=== PATIENT | male | born 1945 | race Caucasian/White ===

== ENCOUNTER → 2018-05-09 11:48 | Outpatient (CLI) | payer MEDICARE, BC, SELFPAY ==
[2018-05-09 12:33] VITALS: PULSE 69; PULSE 74; PULSE 86; PULSE 88; PULSE 90; PULSE 95; PULSE 98; O2SAT 100; O2SAT 93; O2SAT 96; O2SAT 97; O2SAT 98; O2SAT 99
--- NOTE | 2018-05-09 14:28 | WT_ITS ---
PSN 6 Minute Walk Test - 6 Minute Walk Test 6 Minute Walk Test: 6 Minute Walk Test PSN:6-Minute Walk Test Start: 05/09/18 12: 32 Freq: Status: Active Protocol: [id number] Document 05/09/18 12:33 NEVILLE (Rec: 05/09/18 12:36 MARYSOLA [id number]) 6 Minute Walk Test Date Performed 05/09/18 Time Performed 12:00 Height 5 ft 8 in Weight: 82.024 kg Weight in Pounds 180.[address]: Dev Bolanos Assistive device used: None Pre-test Oxygen Delivery Method Room Air Pulse Ox (%) 100 Pulse Rate (60-100 beats/min) 69 Dyspnea Cornelio Scale (0-10) 0 Exertion Cornelio Scale (6-20) 6 1st minute Oxygen Delivery Method Room Air Pulse Ox (%) 97 Pulse Rate (60-100 beats/min) 86 2nd minute Oxygen Delivery Method Room Air Pulse Ox (%) 96 Pulse Rate (60-100 beats/min) 88 3rd minute Oxygen Delivery Method Room Air Pulse Ox (%) 96 Pulse Rate (60-100 beats/min) 90 4th minute Oxygen Delivery Method Room Air Pulse Ox (%) 93 Pulse Rate (60-100 beats/min) 95 Number of Rests Taken 1 5th minute Oxygen Delivery Method Room Air Pulse Ox (%) 98 Pulse Rate (60-100 beats/min) 90 Number of Rests Taken 1 6th minute Oxygen Delivery Method Room Air Pulse Ox (%) 98 Pulse Rate (60-100 beats/min) 98 Dyspnea Cornelio Scale (0-10) 3 Exertion Cornelio Scale (6-20) 13 Number of Rests Taken 1 Post-test Oxygen Delivery Method Room Air Pulse Ox (%) 99 Pulse Rate (60-100 beats/min) 74 Full Laps Walked 9 Partial Lap, Number of Tiles Walked 0 Total Distance Walked (ft) 531 - Interpretation Interpretation: The patient was able to ambulate only 531 feet over the course of 6 minutes on room air with no assistive devices. The patient did require 2 breaks secondary to leg pain. Patient's lowest oxygen saturation was noted at 93% and no significant tachycardia was noted during testing. These findings are consistent with a musculoskeletal limitation exercise tolerance. - Recommendations Recommendations: No supplemental oxygen is indicated at this time. Sensitivity for desaturation is limited by minimal distance traveled.
== END ==
PROVIDERS: Family Provider Family Medicine; PCP Family Medicine; Visit Provider Internal Medicine Critical Care Medicine
DX: J44.9 Chronic obstructive pulmonary disease, unspecified (principal)
CPT/HCPCS: 94618

== ENCOUNTER → 2018-05-13 12:40 | Outpatient (CLI) | payer MEDICARE, BC, SELFPAY ==
--- NOTE | 2018-05-14 09:41 | PFT ---
INTRODUCTION: The patient is a 73-year-old male currently under the care of myself the presents for pulmonary function testing secondary to a diagnosis of COPD. Respiratory therapy reports good patient effort. Bronchodilators were used during testing. INTERPRETATION: Forced expiration spirometry demonstrates the presence of a severe large airways obstructive ventilatory defect. There was a partial bronchodilator response, although it was not considered clinically significant. Spirograms are of good quality and do not plateau indicating slow emptying of the lungs. Body plethysmography was performed and reveals an elevated TLC and RV, indicative of underlying hyperinflation and air-trapping. Diffusing capacity by single breath CO is moderately reduced at 55% of predicted. When compared to previous pulmonary function studies dated February 2017 there is been a 14% reduction in FEV1, along with worsening hyperinflation and air-trapping. 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 There has been worsening in the patient's PFTs since they were last completed in February 2017.
== END ==
PROVIDERS: Family Provider Family Medicine; PCP Family Medicine; Visit Provider Internal Medicine Critical Care Medicine
DX: J44.9 Chronic obstructive pulmonary disease, unspecified (principal)
CPT/HCPCS: 94060; 94726; 94729

== ENCOUNTER → 2018-08-01 15:58 | Outpatient (CLI) | payer MEDICARE, BC, SELFPAY | PROVIDERS: Family Provider Family Medicine; PCP Family Medicine; Visit Provider Otolaryngology Otolaryngology/Facial Plastic Surgery | DX: J32.9 Chronic sinusitis, unspecified (principal) | CPT/HCPCS: 87070; 87077; 87186; 87205 ==

== ENCOUNTER → 2018-09-09 09:05 | Outpatient (CLI) | payer MEDICARE, BC, SELFPAY ==
--- NOTE | 2018-09-09 09:09 | US_ITS ---
STUDY: ABDOMINAL ULTRASOUND REASON FOR EXAM: Male, 73 years old. Chronic kidney disease stage III. Diabetes. TECHNIQUE: Transabdominal ultrasound was performed with real-time and static khalil scale imaging. TECHNICAL QUALITY: Examination limited by bowel gas. COMPARISON: Ultrasound of the kidneys, September 28, 2017. FINDINGS: Liver: The liver measures 16.4 cm. There is minimally increased echogenicity of the liver suggesting mild fatty infiltration. The bile ducts are within normal limits. There is hepatic color flow. The direction of portal flow is hepatopetal. There is no demonstrated mass lesion. Gallbladder: Normal distended gallbladder. The gallbladder wall measures 4 mm. There is a negative sonographic Lackey's sign. There is no pericholecystic fluid. There is a solitary 1.7 x 1.6 cm echogenic gallstone within the gallbladder. Common Bile Duct (C.B.D.): The common bile duct measures 4 mm. Pancreas: Normal size of the head, body and tail of the pancreas. There is increased echogenicity of the pancreas. There is no demonstrated pancreatic mass or cyst. Spleen: The spleen was not visualized. Right Kidney: Normal size of the right kidney. The right kidney measures 11.3 cm. There is mildly increased renal cortical echogenicity. The right cortex measures 1.9 cm. There is a 1.5 x 1.4 x 1.3 cm simple cyst in the mid cortex. There is no right hydronephrosis. Left Kidney: Normal size of the left kidney. The left kidney measures 15.5 cm. This includes a 7.5 x 6.6 x 6.9 cm simple cyst extending off the lower pole. There is increased echogenicity of of the renal cortex. The left cortex measures 1.4 cm. There is no demonstrated renal mass. There is no left hydronephrosis. Aorta: Aorta is not clearly visualized due to bowel gas. I.V.C.: The IVC is patent. There is no ascites. US/Abdomen Complete IMPRESSION: 1. Limited study due to bowel gas. The spleen and aorta are incompletely visualized. 2. Gallstone without secondary evidence of acute cholecystitis. 3. Increased renal cortical echogenicity consistent with medical renal disease. 4. Bilateral renal cysts. These appear stable Electronically Signed: Dami Levy DO at 18:50 EDT Tel [phone], Service support ,
== END ==
PROVIDERS: Family Provider Family Medicine; PCP Family Medicine; Referring Provider Internal Medicine Nephrology; Visit Provider Internal Medicine Nephrology
DX: N18.3 Chronic kidney disease, stage 3 (moderate) (principal)
CPT/HCPCS: 76700

== ENCOUNTER → 2018-10-24 15:29 | Outpatient (CLI) | payer MEDICARE, BC, SELFPAY ==
[2018-10-24 14:18] VITALS: BMI 27.9
--- NOTE | 2018-10-24 15:40 | RAD_ITS ---
STUDY: X-RAY CHEST REASON FOR EXAM: Male, 73 years old. Increased shortness of breath and chronic respiratory failure with hypoxia. TECHNIQUE: PA and lateral views of the chest. COMPARISON: PA and lateral chest x-ray April 30, 2015; CT chest without contrast October 26, 2017. FINDINGS: There is hyperinflation of the lungs consistent with chronic obstructive lung disease (COPD). Emphysematous changes again seen in the apices, greater on the right. At least one of the nodular densities in each lung apex noted on CT is evident on the frontal view, overlapping the anterior second rib on each side. No new infiltrate. There is no demonstrated pleural abnormality. Normal size heart. Normal mediastinum and jessica. Normal visualized pulmonary arteries. There is stable atherosclerotic calcification of the aortic arch. There are stable multilevel degenerative changes of the visualized thoracic spine. There is stable right lateral wedging of the T8 vertebra. Lateral screw in the right humeral head again noted. There is no demonstrated abnormality of the visualized soft tissue structures of the upper abdomen. RAD/Chest PA and Lateral IMPRESSION: Stable x-ray examination of the chest, as described. Electronically Signed: Kade Dee MD at 19:12 EST , Service support ,
[2018-10-24 18:22] LABS: Anion Gap 9 (5-15); BUN 32 mg/dL (7-18); BUN/Creat Ratio 14.4 RATIO (10-20); Calcium,Total 8.5 mg/dL (8.5-10.1); Chloride 101 mmol/L (98-107); Creatinine, Serum 2.22 mg/dL (0.70-1.30); EST Glomerular Filtration Rate 31 mL/min (>60); Est Glom Filt Rate - Afr Amer 37 mL/min (>60); Glucose 122 mg/dL (74-106); Potassium 4.1 mmol/L (3.5-5.1); Sodium Level 138 mmol/L (136-145)
[2018-10-24 18:24] LABS: BNP,B-Type NATRIURETIC PEPTIDE 260.9 pg/mL (0-100)
--- OUTSIDE RECORDS SUMMARY | 2018-12-10 13:11 | XMS RPT_ITS ---
:1945 Author Organization OHIP Support Name Relationship Address Phone ZAHRAA HUSAIN Unavailable [address] + [place] [address] ZAHRAA HUSAIN Unavailable [address] + [place] [address] R Unavailable Unavailable Unavailable MIRTA HUSAIN Unavailable [address] + [place] [address] R Unavailable Unavailable Unavailable MIRTA HUSAIN Unavailable [address] + [place] [address] R Unavailable Unavailable Unavailable MIRTA HUSAIN Unavailable [address] + [place] [address] R Unavailable Unavailable Unavailable MIRTA HUSAIN Unavailable [address] + [place] [address] ZAHRAA HUSAIN Unavailable [address] + [place] [address] ZAHRAA HUSAIN Unavailable [address] + [place] [address] ZAHRAA HUSAIN Unavailable [address] + [place] [address] ZAHRAA HUSAIN Unavailable [address] + [place] [address] R Unavailable Unavailable Unavailable MIRTA HUSAIN Unavailable [address] + [place] [address] ZAHRAA HUSAIN Unavailable [address] + [place] [address] ZAHRAA HUSAIN Unavailable [address] + [place] [address] R Unavailable Unavailable Unavailable MIRTA HUSAIN Unavailable [address] + [place] [address] R Unavailable Unavailable Unavailable MIRTA HUSAIN Unavailable [address] + [place] [address] R Unavailable Unavailable Unavailable MIRTA HUSAIN Unavailable [address] + [place] [address] R Unavailable Unavailable Unavailable MIRTA HUSAIN Unavailable [address] + [place] [address] R Unavailable Unavailable Unavailable MIRTA HUSAIN Unavailable [address] + [place] [address] R Unavailable Unavailable Unavailable MIRTA HUSAIN Unavailable [address] + [place] [address] RODRIGUEZAHRAA HA Unavailable [address] + [place] [address] RODRIGUEDOMINIQUE HAY Unavailable [address] + [place] [address] RODRIGUEDOMINIQUE HAY Unavailable [address] + [place] [address] RODRIGUEZAHRAA HA Unavailable [address] + [place] [address] R Unavailable Unavailable Unavailable MIRTA HUSAIN Unavailable [address] + [place] [address] RODRIGUEDOMINIQUE HAY Unavailable [address] + [place] [address] RODRIGUEDOMINIQUE HAY Unavailable [address] + [place] [address] RODRIGUEZAHRAA HA Unavailable [address] + [place] [address] RODRIGUEZAHRAA HA Unavailable [address] + [place] [address] Care Team Providers Name Role Phone ARLETTE BASS MD Attending Unavailable LUCAS LOZANO DO Primary Care Unavailable DR. EDITH GARVIN DO Attending Unavailable LUCAS LOZANO DO Primary Care Unavailable ARLETTE BASS MD Attending Unavailable LUCAS LOZANO DO Primary Care Unavailable DR. EDITH GARVIN DO Attending Unavailable LUCAS LOZANO DO Primary Care Unavailable ARLETTE BASS MD Attending Unavailable MARTA DO, LUCAS D Primary Care Unavailable ARLETTE BASS MD Attending Unavailable MARTA DO, LUCAS D Primary Care Unavailable MARU MONTILLA, DR. ALLI Bryant Attending Unavailable MARTA DO, LUCAS D Primary Care Unavailable ARLETTE BASS MD Attending Unavailable MARTA DO, LUCAS D Primary Care Unavailable Mariaelena Schilling Attending Unavailable Marta, Lucas Referring Unavailable Mariaelena Schilling Attending Unavailable Schilling, Mariaelena Referring Unavailable [place], Lucas Primary Care Unavailable Edith Garvin Attending Unavailable Marta, Lucas Primary Care Unavailable Dev Bolanos, D.O. Attending Unavailable Dev Bolanos, D.O. Referring Unavailable [place], Lucas Primary Care Unavailable Dev Bolanos, D.O. Attending Unavailable Dev Bolanos, D.O. Referring Unavailable Marta, Lucas Primary Care Unavailable Dev Bolanos, D.O. Attending Unavailable Marta, Lucas Referring Unavailable Dev Bolanos, D.O. Attending Unavailable Dev Bolanos, D.O. Attending Unavailable Dev Bolanos, D.O. Referring Unavailable Ja Dumas Attending Unavailable Marta, Lucas Primary Care Unavailable Dev Bolanos, D.O. Attending Unavailable [place], Lucas Referring Unavailable Alli Reyes Attending Unavailable Alli Reyes Referring Unavailable [place], Lucas Primary Care Unavailable Edith Garvin Attending Unavailable [place], Lucas Primary Care Unavailable PROBLEMS PROBLEMS DATE TYPE CONDITION / CODE ATTENDING STATUS SOURCE 10/24/2018 Unknown J96.11 - Chronic Schilling, Active [place] respiratory [facility] failure with Hospital hypoxia / Repository J96.11(ICD-10) 10/24/2018 Unknown R06.02 - Shortness Schilling, Active [place] of breath / [facility] R06.02(ICD-10) Hospital Repository 08/15/2018 Unknown Z23 - Encounter Dev Bolanos, Active [place] for immunization / [facility] Z23(ICD-10) Hospital Repository 08/15/2018 Unknown R91.1 - Solitary Dev Bolanos, Active [place] pulmonary nodule / [facility] R91.1(ICD-10) Hospital Repository 06/20/2018 Unknown J44.9 - Chronic Dev Bolanos, Active [place] obstructive [facility] pulmonary disease, Hospital unspecified / Repository J44.9(ICD-10) PROCEDURES PROCEDURES No Procedure Records FoundRESULTS RESULTS LIPID Collected: 11/13/2018 Status: F Source: [facility] 9:06 AM [facility] REPOSITORY TYPE CODE TESTS RESULT OUT OF REFERENCE UNITS RANGE LAB CHOL(LOINC 0-200 mg/dL ) Cholesterol 171 Result Comment: Cholesterol Reference Interval: Less than 200 Desirable 200-239 Borderline high risk 240 and above High risk LAB TRIG(LOINC) 0-150 mg/dL Triglycerides 131 Result Comment: Triglyceride Reference Interval: Less than 150 Normal 150-199 Borderline high risk 200-499 High risk 500 or higher Very high risk LAB HD(LOINC) 40-60 mg/dL HDL Low Cholesterol 39 LAB LDL(LOINC) 0-130 mg/dL LDL Cholesterol 106 Performed By: #### LIPID, CMP, GFR, A1C #### [place] [address] CMP Collected: 11/13/2018 Status: F Source: [facility] 9:06 AM [facility] REPOSITORY TYPE CODE TESTS RESULT OUT OF REFERENCE UNITS RANGE LAB GLU(LOINC) 83-110 mg/dL Glucose High Level 157 LAB NA(LOINC) 136-145 mmol/L Low Sodium Level 135 LAB K(LOINC) 3.5-5.1 mmol/L Potassium Level 4.6 LAB CL(LOINC) 98-107 mmol/L Chloride 100 LAB CO2(LOINC) 23-31 mmol/L CO2 28 LAB EBAL(LOINC mEq/L ) Electrolyte Balance 7.0 LAB BUN(LOINC) 7-18 mg/dL BUN High 29 LAB CRE(LOINC) 0.70-1.30 mg/dL Creatinine High Lvl (s) 2.53 LAB BC(LOINC) 7-27 ratio BUN/Creatinine 11 Ratio LAB CA(LOINC) 8.4-10.2 mg/dL Calcium Lvl 8.4 LAB PROT(LOINC 6.4-8.2 G/dL ) Total Protein 6.6 LAB ALB(LOINC) 3.4-4.8 G/dL Low Albumin Level 3.0 LAB GLB(LOINC) G/dL Globulin 3.6 LAB AG(LOINC) 1.1-2.5 ratio Low A/G Ratio 0.8 LAB BILT(LOINC 0.2-1.0 mg/dL ) Bili Total 0.2 LAB AP(LOINC) 40-135 U/L Alk Phos 131 LAB AST(LOINC) 10-40 U/L AST/SGOT 15 LAB ALT(LOINC) 10-35 U/L ALT/SGPT 20 Performed By: #### LIPID, CMP, GFR, A1C #### [address] [address] .GFR Collected: 11/13/2018 Status: F Source: [facility] 9:06 AM [facility] REPOSITORY TYPE CODE TESTS RESULT OUT OF REFERENCE UNITS RANGE LAB GFRAA(LOINC ml/min/1.73 ) sqm GFR 30 Bulgarian Result Comment: GFR Population mean for , Non- Americans Ages 20-29 = 116 mL/min/1.73 sq.m. Ages 30-39 = 107 mL/min/1.73 sq.m. Ages 40-49 = 99 mL/min/1.73 sq.m. Ages 50-59 = 93 mL/min/1.73 sq.m. Ages 60-69 = 85 mL/min/1.73 sq.m. Ages 70+ = 75 mL/min/1.73 sq.m. Chronic Kidney Disease: Less than 60 mL/min/1.73 square meters End Stage Renal Disease: Less than 15 mL/min/1.73 square meters LAB GFRNO(LOINC) ml/min/1.73sqm GFR Non- 25 Result Comment: GFR Population mean for , Non- Americans Ages 20-29 = 116 mL/min/1.73 sq.m. Ages 30-39 = 107 mL/min/1.73 sq.m. Ages 40-49 = 99 mL/min/1.73 sq.m. Ages 50-59 = 93 mL/min/1.73 sq.m. Ages 60-69 = 85 mL/min/1.73 sq.m. Ages 70+ = 75 mL/min/1.73 sq.m. Chronic Kidney Disease: Less than 60 mL/min/1.73 square meters End Stage Renal Disease: Less than 15 mL/min/1.73 square meters Performed By: #### LIPID, CMP, GFR, A1C #### [address] [address] A1C Collected: 11/13/2018 Status: F Source: [facility] 9:06 AM [facility] REPOSITORY TYPE CODE TESTS RESULT OUT OF RANGE REFERENCE UNITS LAB A1C(LOINC) 4.5-6.2 % High Hgb A1c 7.8 Performed By: #### LIPID, CMP, GFR, A1C #### [address] [address] PULMONARY VISIT REPORT Observed: 10/25/2018 Status: F Source: [place] 2:36 PM [facility] REPOSITORY [facility] [place] [address] [place] [address] OFFICE VISIT Date of Service: 10/24/18 MR#: [id number] Acct: [id number] Name: DIVYA HUSAIN Rep #: [id number] : 1945 Provider: Mariaelena Schilling Age/Sex: 73/M Location[place] [facility] Status: Signed Assessment AND Plan Problems 1. Chronic respiratory failure with hypoxia J96.11 2. Stage 3 chronic kidney disease N18.3 Plan Deteriorated. Patient typically requires 3 L nasal cannula oxygen with exertion but is now requiring 4 L. Upon reviewing his dietary habits lately he has been treating himself to many holiday extras such as ham, pizza, hot dogs, fast food and fried foods. Blood work and chest x-ray obtained. Chest x-ray does not document congestive heart failure however BNP is elevated. Given the patient's degree of kidney failure I would like to avoid adding additional diuretics to try to get rid of the fluid retention. I have advised the patient to avoid salt, he has been provided with pulmonary hypertension diet instructions. He will follow-up in 1 week to see how his symptoms have responded to dietary restrictions and adherence to already prescribed occasions. He conveys understanding. Orders Orders: Plan Detail Follow Up 1 Week (CSM) HPI DIFFICULTY BREATHING: Chief Complaint: Shortness of breath HPI Comments Details: This patient presents the office today for an acute visit regarding worsening shortness of breath. He is ambulatory, wearing nasal cannula oxygen and he is accompanied today by his . The patient states that over the past 3 weeks he has noticed worsening shortness of breath. He typically requires 3 L of nasal cannula oxygen but lately has been requiring 4 L of nasal cannula oxygen. He shortness of breath is not only occurring with activity but it sometimes at rest. He does report an increase in lower extremity edema. He is not having any chest pain or palpitations. He does report an increase in fatigue. He states that his appetite has not been as good but he reports a weight gain. He is compliant with Symbicort 2 puffs twice daily. He reports rinsing his mouth out after each use. He denies any medication side effects such as sore throat or thrush. He does have an albuterol rescue inhaler but states that it has not been effective in relieving his shortness of breath. He also is having a wheezing, he denies any cough or sputum production. Asked the patient about his sodium intake, he states that I do not add any salt to my food. When questioned about eating any holiday type foods recently he states that he did not have much to eat on . When specifically questioned what types of food he had to eat on he did report eating turkey and ham. Then we began to evaluate various meals over the past couple weeks and he admitted to pizza, hot dog casserole, fast food and fried foods. All of these foods are not in his normal diet but his reports that with the busyness of the holidays they have not been eating at home as often. Intake Vital Signs10/24/18 Height 5 ft 8 in 10/24/18 Weight: 184 lb 10/24/18 Body Mass Index (BMI) 27.9 Intake Visit Reasons: DIFFICULTY BREATHING Accompanied by: Allergies budesonide Allergy (Severe, Verified 10/24/18 14:19) Other - can't breathe amoxicillin [From Augmentin] Allergy (Unknown, Verified 10/24/18 14:19) Unknown clavulanic acid [From Augmentin] Allergy (Unknown, Verified 10/24/18 14:19) Unknown Sulfa (Sulfonamide Antibiotics) Allergy (Unknown, Verified 10/24/18 14:19) Unknown Medications Albuterol Aerosols [Ventolin Aerosols] 01/07/16 [History Confirmed 10/24/18] Aspirin E.C. [Ecotrin] 01/07/16 [History Confirmed 10/24/18] Hydrochlorothiazide [Hctz] 01/07/16 [History Confirmed 10/24/18] Insulin Pump Controller 01/07/16 [History Confirmed 10/24/18] brimonidine 0.2 % eye drops See Rx Instructions OPHTHALMIC QDAY ml 11/15/17 [History Confirmed 10/24/18] enalapril maleate 20 mg tablet 10 mg PO DAILY tab 11/15/17 [History Confirmed 10/24/18] insulin lispro (U- 100) 100 unit/mL subcutaneous solution 100 unit SC QAM ml 11/15/17 [History Confirmed 10/24/18] lactulose 10 gram/15 mL (15 mL) oral solution See Rx Instructions PO BID 11/15/17 [History Confirmed 10/24/18] latanoprost 0.005 % eye drops 1 drp OPHTHALMIC QDAY ml 11/15/17 [History Confirmed 10/24/18] simvastatin 10 mg tablet 10 mg PO QPM 11/15/17 [History Confirmed 10/24/18] timolol 0.5 % eye drops 1 drp OPHTHALMIC BID 11/15/17 [History Confirmed 10/24/18] albuterol sulfate HFA 90 mcg/actuation aerosol inhaler 2 puff INHALATION Q4H PRN #1 device 11/20/17 [Rx Confirmed 10/24/18] cholecalciferol (vitamin D3) 50,000 unit capsule 50,000 unit PO .COMPLEX 11/20/17 [History Confirmed 10/24/18] budesonide-formoterol HFA 160 mcg-4.5 mcg/actuation aerosol inhaler 2 inh INHALATION Q12H #1 device 05/23/18 [Rx Confirmed 10/24/18] fluticasone 200 mcg-vilanterol 25 mcg/dose powder for inhalation 1 inh INHALATION DAILY #3 device 08/28/18 [Rx Confirmed 10/24/18] umeclidinium 62.5 mcg/actuation blister powder for inhalation 1 inh INHALATION QDAY #3 device 08/28/18 [Rx Confirmed 10/24/18] [facility] Medical History Pulmonary nodule (Chronic) Chronic hypoxemic respiratory failure (Chronic) COPD (chronic obstructive pulmonary disease) (Chronic) Constipation (Acute) Low back pain (Acute) Nonallopathic lesion of lumbar region (Acute) Nonallopathic lesion of rib cage (Acute) Nonallopathic lesion of sacral region (Acute) Nonallopathic lesion of thoracic region, not elsewhere classified (Acute) Otalgia (Acute) Otitis externa (Acute) Pain in lower limb (Acute) Serous otitis media (Acute) Thoracic back pain (Acute) Wax in ear (Acute) Allergic rhinitis (Chronic) Anemia (Chronic) Benign localized hyperplasia of prostate (Chronic) COPD (chronic obstructive pulmonary disease) (Chronic) Carpal tunnel syndrome (Chronic) Chronic allergic rhinitis (Chronic) Chronic otitis media (Chronic) Diabetes mellitus (Chronic) Former smoker (Chronic) GERD (gastroesophageal reflux disease) (Chronic) Neuralgia (Chronic) PVD (peripheral vascular disease) (Chronic) Peripheral edema (Chronic) Peripheral vascular insufficiency (Chronic) Pulmonary nodule (Chronic) Reactive airway disease (Chronic) Renal disorder (Chronic) Respiratory failure (Chronic) Thoracic outlet syndrome (Chronic) post inflammatory pulmonary fibrosis (Chronic) Surgical History H/O inguinal hernia repair (Resolved) H/O prostate biopsy (Resolved) History of appendectomy (Resolved) History of carpal tunnel surgery of left wrist (Resolved) S/P bilateral foot surgery (Resolved) S/P rotator cuff repair (Resolved) Family History Sister Diabetes Father Heart disease Social History Smoking Status: Former smoker quit date: 11/12/13 pack-years: 55 second hand exposure: No alcohol intake: never substance use type: does not use Review of Systems Const CONSTITUTIONAL: Negative anorexia, body ache, chills, daytime sleepiness, fever(s), night sweats, oral thrush, stops breathing during sleep, weight loss, sleeping in chair, fatigue, weight loss, weight gain, frequent colds, seasonal allergies, other, headache(s) or orthopnea EETM Ear Nose Throat Mouth: Positive hard of hearing; negative hoarseness, dry mouth in morning, change in vision, itchy eyes, eye pain, swallowing Difficulty, ear pain, nose bleed, headache(s), mouth pain, nasal congestion, nasal discharge, post nasal drip, sinus pain, sinus pressure, sore throat or other Cardio Cardiovascular: Negative chest pain, chest pain at rest, chest pain with activity, irregular heart rhythm, edema, shortness of breath when lying down, palpitations or other Resp Respiratory: Positive as per HPI; negative shortness of breath, pain with cough, wheezing, chest congestion, cough, chest tightness, pain on inspiration, inhalers, increase use of rescue inhalers, snoring, apnea or other Gastro Gastrointestional: Negative bloody stools, change in appetite, difficulty swallowing, reflux, hematemesis, melena stool, loose stool, constipation or other Genitourinary: Negative blood in urine, nocturia, pain with urination or other Musc Musculoskeletal: Negative body pain, back pain, neck pain or other Skin/Breast Skin/Breast: Negative dry skin, itching, rash, unusual bruising, breast lump or other Neuro Neurological: Negative restless legs, confusion, weakness or other Psych Psychocological: Negative abnormal sleep pattern, anxiety, thoughts of hurting self/others, hopelessness or other Lymph Lymphatic: Negative easy bleeding, easy bruising, swollen lymph nodes or other Exam Const Constitutional: Positive conversant, cooperative, in no acute respiratory distress, well developed, well nourished, good hygiene, wearing supplemental oxygen, frail appearing and dyspenic Head Head: Positive normocephalic and atraumatic; negative cyanosis of lips/distal nose Eyes Eye: Positive clear conjunctiva; negative nystagmus or scleral abnormality Ears Ear: Positive hard of hearing and external ears normal Nose Nose: Positive external nose normal and no nasal discharge; negative epistaxis Mouth Mouth: Positive oral mucosae normal, no lesions and crowded posterior oropharynx; negative post nasal drip, malodorous breath or oral thrush present Mallampati Score: III: Mallampati Score Neck Neck: Positive normal visual inspection, full ROM and trachea midline; negative lymphadenopathy, JVD or tender Chest Wall Chest: Positive symmetric chest movement and increased A/P diameter Resp lung sounds: Positive diminished, wheezes, increased work of breathing and prolonged expiratory time; negative rhonchi, rales, dullness to percussion or use of accessory muscles Cardio Cardiac: Positive regular rhythm, S1 normal, regular rate and S2 normal GI GI: Positive normal to inspection; negative distended Genitourinary: Positive deferred Musc Musculoskeletal: Positive steady gait and ROM normal; negative kyphosis or scoliosis Skin Pulmonary Skin Exam: Positive intact; negative rash Pulses Pulse: Yes pulses normal x4 extremities Extremities Extremities: Yes capillary refill normal, No clubbing, No cyanosis, Yes edema Location: lower extremity location: Bilateral pitting +2 Neuro Neurologic: Yes conversant, Yes no focal neuro deficits, Yes normal concentration, Yes understands questions, Yes cooperative, Yes normal cognition, Yes normal coordination, No tremor Lymph Lymphatic: No lymphadenopathy, No tenderness, No cervical adenopathy Psych Appearance: Positive grossly normal, eye contact and well kempt Mental Status: Positive mental status grossly normal Mood: Positive congruent mood Affect: Positive normal affect Coding Level of Care Code Off vis,est,level 4 Diagnoses Chronic respiratory failure with hypoxia J96.11 Stage 3 chronic kidney disease N18.3 Renal failure chronicity: chronic Chronic kidney disease stage: stage 3 (moderate) 10/25/18 1436 <Electronically signed by Mariaelena Schilling NP-C> Date Mariaelena DINEROC Cosigner Signature: Date (if applicable) CC: Lucas Lozano DO BASIC METABOLIC Collected: 10/24/2018 Status: F Source: [place] PROFILE ([place]) 3:50 PM [facility] REPOSITORY TYPE CODE TESTS RESULT OUT OF RANGE REFERENCE UNITS LAB L501.0100 74-106 mg/dL High GLU 122 Result Comment: Fasting Glucose result from 100 to 125 mg/dL suggests IMPAIRED HOMEOSTASIS per A.D.A. criteria. Please note revised GLUCOSE reference range effective 2017. LAB L501.1000 7-18 mg/dL High BUN 32 LAB L501.1100 0.70-1.30 mg/dL High CREAT,SERUM 2.22 Result Comment: The validity of the calculated GFR AND GFRAA in patients over 70 years has not been determined. Clinical correlation is essential. LAB L501.1110 >60 mL/min Low EST GFR 31 Result Comment: Non- GFR Calc LAB L501.1115 >60 mL/min Low EST GFR - AA 37 Result Comment: GFR Calc LAB L501.1300 10-20 RATIO Normal BUN/CRE 14.4 LAB L501.2200 8.5-10.1 mg/dL CA Normal 8.5 LAB L501.5300 136-145 mmol/L NA Normal 138 LAB L501.5600 3.5-5.1 mmol/L K Normal 4.1 LAB L501.5900 98-107 mmol/L CL Normal 101 LAB L501.6100 21.0-32.0 mmol/L Normal CO2 28.0 LAB L501.6200 5-15 Normal GAP 9 Performed By: #### L500.2500 #### [facility] [address] [facility] [place], [address] BNP,B-TYPE NATRIURETIC Collected: 10/24/2018 Status: F Source: [place] 3:50 PM [facility] REPOSITORY TYPE CODE TESTS RESULT OUT OF RANGE REFERENCE UNITS LAB L503.6620 0-100 pg/mL High B-TYPE 260.9 EDWINA PEP Performed By: #### L503.6620 #### [facility] [address] [facility] [place], [address] CHEST PA AND LATERAL Observed: 10/24/2018 Status: F Source: [place] 3:34 PM [facility] REPOSITORY [facility] Imaging Services [address] [place] [address] Chest PA and Lateral MR#: [id number] Acct: [id number] Name: DIVYA HUSAIN Rep #: [id number] : 1945 73 From: Ethan Dee MD PCP: Lucas Lozano DO Status: REG CLI Study: Chest PA and Lateral Date of Exam: 10/24/18 Exam# [id number] Ordering Dr: Mariaelena Schilling SIGNAL INTELLIGENCE/ELECTRONIC WARFARE-C STUDY: X-RAY CHEST REASON FOR EXAM: Male, 73 years old. Increased shortness of breath and chronic respiratory failure with hypoxia. TECHNIQUE: PA and lateral views of the chest. COMPARISON: PA and lateral chest x-ray April 30, 2015; CT chest without contrast October 26, 2017. FINDINGS: There is hyperinflation of the lungs consistent with chronic obstructive lung disease (COPD). Emphysematous changes again seen in the apices, greater on the right. At least one of the nodular densities in each lung apex noted on CT is evident on the frontal view, overlapping the anterior second rib on each side. No new infiltrate. There is no demonstrated pleural abnormality. Normal size heart. Normal mediastinum and jessica. Normal visualized pulmonary arteries. There is stable atherosclerotic calcification of the aortic arch. There are stable multilevel degenerative changes of the visualized thoracic spine. There is stable right lateral wedging of the T8 vertebra. Lateral screw in the right humeral head again noted. There is no demonstrated abnormality of the visualized soft tissue structures of the upper abdomen. RAD/Chest PA and Lateral IMPRESSION: Stable x-ray examination of the chest, as described. Electronically Signed: Kade Dee MD at 19:12 EST , Service support , CC: Lucas Lozano DO; Mariaelena Schilling Aeronautics Teacher: Signed ABDOMEN COMPLETE Observed: 09/09/2018 Status: F Source: [place] 9:09 AM [facility] REPOSITORY [facility] Imaging Services [address] [place] [id number] Abdomen Complete MR#: [id number] Acct: [id number] Name: DIVYA HUSAIN Rep #: [id number] : 1945 M 73 From: Dami Levy DO PCP: Lucas Lozano DO Status: REG CLI Study: Abdomen Complete Date of Exam: 09/09/18 Exam# [id number] Ordering Dr: Allison Reyes MD STUDY: ABDOMINAL ULTRASOUND REASON FOR EXAM: Male, 73 years old. Chronic kidney disease stage III. Diabetes. TECHNIQUE: Transabdominal ultrasound was performed with real-time and static khalil scale imaging. TECHNICAL QUALITY: Examination limited by bowel gas. COMPARISON: Ultrasound of the kidneys, September 28, 2017. FINDINGS: Liver: The liver measures 16.4 cm. There is minimally increased echogenicity of the liver suggesting mild fatty infiltration. The bile ducts are within normal limits. There is hepatic color flow. The direction of portal flow is hepatopetal. There is no demonstrated mass lesion. Gallbladder: Normal distended gallbladder. The gallbladder wall measures 4 mm. There is a negative sonographic Lackey's sign. There is no pericholecystic fluid. There is a solitary 1.7 x 1.6 cm echogenic gallstone within the gallbladder. Common Bile Duct (C.B.D.): The common bile duct measures 4 mm. Pancreas: Normal size of the head, body and tail of the pancreas. There is increased echogenicity of the pancreas. There is no demonstrated pancreatic mass or cyst. Spleen: The spleen was not visualized. Right Kidney: Normal size of the right kidney. The right kidney measures 11.3 cm. There is mildly increased renal cortical echogenicity. The right cortex measures 1.9 cm. There is a 1.5 x 1.4 x 1.3 cm simple cyst in the mid cortex. There is no right hydronephrosis. Left Kidney: Normal size of the left kidney. The left kidney measures 15.5 cm. This includes a 7.5 x 6.6 x 6.9 cm simple cyst extending off the lower pole. There is increased echogenicity of of the renal cortex. The left cortex measures 1.4 cm. There is no demonstrated renal mass. There is no left hydronephrosis. Aorta: Aorta is not clearly visualized due to bowel gas. I.V.C.: The IVC is patent. There is no ascites. US/Abdomen Complete IMPRESSION: 1. Limited study due to bowel gas. The spleen and aorta are incompletely visualized. 2. Gallstone without secondary evidence of acute cholecystitis. 3. Increased renal cortical echogenicity consistent with medical renal disease. 4. Bilateral renal cysts. These appear stable Electronically Signed: Dami Levy DO at 18:50 EDT Tel [phone], Service support , CC: uLcas Lozano DO; Alli Reyes M.D. Aeronautics Teacher: Signed CRUR Collected: 09/03/2018 Status: F Source: [facility] 9:40 AM [facility] REPOSITORY TYPE CODE TESTS RESULT OUT OF REFERENCE UNITS RANGE LAB CRU(LOINC) 39.0-259.0 mg/dL U Creatinine 53.6 Performed By: #### MILO, PRUR #### [address] [address] PRUR Collected: 09/03/2018 Status: F Source: [facility] 9:40 AM [facility] REPOSITORY TYPE CODE TESTS RESULT OUT OF REFERENCE UNITS RANGE LAB PRU(LOINC) 0-11 mg/dL U High Protein 152 Performed By: #### MILO, PRUR #### [address] [address] HGMP Collected: 09/03/2018 Status: F Source: [facility] 9:40 AM [facility] REPOSITORY TYPE CODE TESTS RESULT OUT OF REFERENCE UNITS RANGE LAB WBC(LOINC) 4.60-10.80 10 3/mcL WBC 6.40 LAB RBCCT(LOINC 4.04-6.13 10 6/mcL ) Low RBC 3.44 LAB HGB(LOINC) 14.0-18.0 G/dL Low Hgb 9.1 LAB HCT(LOINC) 42.0-52.0 % Low Hct 27.6 LAB MCV(LOINC) 80.0-94.0 fL MCV 80.4 LAB MCH(LOINC) 27.0-31.2 pg Low MCH 26.4 LAB MCHC(LOINC) 31.8-35.4 G/dL MCHC 32.8 LAB RDW(LOINC) 11.5-14.5 % RDW 14.2 LAB PLT(LOINC) 130-400 10 3/mcL Platelet 261 LAB MPV(LOINC) 7.4-10.4 fL MPV 8.4 Performed By: #### HGMP #### [facility] [address] [place], [place] [address] #### RFP, GFR, PTH, VIDH #### [address] [address] RFP Collected: 09/03/2018 Status: F Source: [facility] 9:40 AM [facility] REPOSITORY TYPE CODE TESTS RESULT OUT OF REFERENCE UNITS RANGE LAB GLU(LOINC) 83-110 mg/dL Glucose High Level 219 LAB NA(LOINC) 136-145 mmol/L Low Sodium Level 134 LAB K(LOINC) 3.5-5.1 mmol/L Potassium Level 4.3 LAB CL(LOINC) 98-107 mmol/L Low Chloride 96 LAB CO2(LOINC) 23-31 mmol/L CO2 High 32 LAB EBAL(LOINC mEq/L ) Electrolyte Balance 6.0 LAB BUN(LOINC) 7-18 mg/dL BUN High 23 LAB CRE(LOINC) 0.70-1.30 mg/dL Creatinine High Lvl (s) 2.19 LAB BC(LOINC) 7-27 ratio BUN/Creatinine 11 Ratio LAB CA(LOINC) 8.4-10.2 mg/dL Calcium Lvl 8.5 LAB PHOS(LOINC 2.3-4.1 mg/dL ) Phosphorus 3.3 LAB ALB(LOINC) 3.4-4.8 G/dL Low Albumin Level 3.2 Performed By: #### HGMP #### [address] [address] #### RFP, GFR, PTH, VIDH #### [address] [address] .GFR Collected: 09/03/2018 Status: F Source: [facility] 9:40 AM [facility] REPOSITORY TYPE CODE TESTS RESULT OUT OF REFERENCE UNITS RANGE LAB GFRAA(LOINC ml/min/1.73 ) sqm GFR 36 Bulgarian Result Comment: GFR Population mean for , Non- Americans Ages 20-29 = 116 mL/min/1.73 sq.m. Ages 30-39 = 107 mL/min/1.73 sq.m. Ages 40-49 = 99 mL/min/1.73 sq.m. Ages 50-59 = 93 mL/min/1.73 sq.m. Ages 60-69 = 85 mL/min/1.73 sq.m. Ages 70+ = 75 mL/min/1.73 sq.m. Chronic Kidney Disease: Less than 60 mL/min/1.73 square meters End Stage Renal Disease: Less than 15 mL/min/1.73 square meters LAB GFRNO(LOINC) ml/min/1.73sqm GFR Non- 29 Result Comment: GFR Population mean for , Non- Americans Ages 20-29 = 116 mL/min/1.73 sq.m. Ages 30-39 = 107 mL/min/1.73 sq.m. Ages 40-49 = 99 mL/min/1.73 sq.m. Ages 50-59 = 93 mL/min/1.73 sq.m. Ages 60-69 = 85 mL/min/1.73 sq.m. Ages 70+ = 75 mL/min/1.73 sq.m. Chronic Kidney Disease: Less than 60 mL/min/1.73 square meters End Stage Renal Disease: Less than 15 mL/min/1.73 square meters Performed By: #### HGMP #### [address] [address] #### RFP, GFR, PTH, VIDH #### [address] [address] PTH Collected: 09/03/2018 Status: F Source: [facility] 9:40 AM [facility] REPOSITORY TYPE CODE TESTS RESULT OUT OF REFERENCE UNITS RANGE LAB PTH(LOINC) 18.5-88.0 pg/mL High PTH, Intact 129.5 Performed By: #### HGMP #### [address] [address] #### RFP, GFR, PTH, VIDH #### [address] [address] VIDH Collected: 09/03/2018 Status: F Source: [facility] 9:40 AM [facility] REPOSITORY TYPE CODE TESTS RESULT OUT OF RANGE REFERENCE UNITS LAB VIDH(LOINC) ng/mL Vit. D 32 25-Hydroxy Result Comment: Interpretive Values Based on Total 25(OH)D: Severe Deficiency <20 ng/mL Mild to Moderate Deficiency 20-30 ng/mL Optimum Levels 30-100 ng/mL Toxicity Possible >100 ng/mL Performed By: #### HGMP #### [address] [address] #### RFP, GFR, PTH, VIDH #### [address] [address] BMP Collected: 08/21/2018 Status: F Source: [facility] 8:48 AM [facility] REPOSITORY TYPE CODE TESTS RESULT OUT OF REFERENCE UNITS RANGE LAB GLU(LOINC) 83-110 mg/dL Glucose High Level 203 LAB NA(LOINC) 136-145 mmol/L Low Sodium Level 133 LAB K(LOINC) 3.5-5.1 mmol/L Potassium Level 4.4 LAB CL(LOINC) 98-107 mmol/L Chloride 98 LAB CO2(LOINC) 23-31 mmol/L CO2 30 LAB EBAL(LOINC mEq/L ) Electrolyte Balance 5.0 LAB BUN(LOINC) 7-18 mg/dL BUN High 21 LAB CRE(LOINC) 0.70-1.30 mg/dL Creatinine High Lvl (s) 2.06 LAB BC(LOINC) 7-27 ratio BUN/Creatinine 10 Ratio LAB CA(LOINC) 8.4-10.2 mg/dL Low Calcium Lvl 7.7 Performed By: #### ANA M, GFR, NEMESIO #### [place] [address] .GFR Collected: 08/21/2018 Status: F Source: [facility] 8:48 AM [facility] REPOSITORY TYPE CODE TESTS RESULT OUT OF REFERENCE UNITS RANGE LAB GFRAA(LOINC ml/min/1.73 ) sqm GFR 38 Bulgarian Result Comment: GFR Population mean for , Non- Americans Ages 20-29 = 116 mL/min/1.73 sq.m. Ages 30-39 = 107 mL/min/1.73 sq.m. Ages 40-49 = 99 mL/min/1.73 sq.m. Ages 50-59 = 93 mL/min/1.73 sq.m. Ages 60-69 = 85 mL/min/1.73 sq.m. Ages 70+ = 75 mL/min/1.73 sq.m. Chronic Kidney Disease: Less than 60 mL/min/1.73 square meters End Stage Renal Disease: Less than 15 mL/min/1.73 square meters LAB GFRNO(LOINC) ml/min/1.73sqm GFR Non- 32 Result Comment: GFR Population mean for , Non- Americans Ages 20-29 = 116 mL/min/1.73 sq.m. Ages 30-39 = 107 mL/min/1.73 sq.m. Ages 40-49 = 99 mL/min/1.73 sq.m. Ages 50-59 = 93 mL/min/1.73 sq.m. Ages 60-69 = 85 mL/min/1.73 sq.m. Ages 70+ = 75 mL/min/1.73 sq.m. Chronic Kidney Disease: Less than 60 mL/min/1.73 square meters End Stage Renal Disease: Less than 15 mL/min/1.73 square meters Performed By: #### BMP, GFR, CORTA #### [facility] [address] [place] [address] CORTA Collected: 08/21/2018 Status: F Source: [facility] 8:48 AM [facility] REPOSITORY TYPE CODE TESTS RESULT OUT OF RANGE REFERENCE UNITS LAB CORTA(LOINC 6.5-26.0 mcg/dL ) Cortisol, 17.5 AM Performed By: #### ANA M, GFR, CORTA #### [facility] [address] [place] [address] PULMONARY VISIT REPORT Observed: 08/16/2018 Status: F Source: [place] 7:53 AM [facility] REPOSITORY Pulmonary Medicine [address] [place] [address] OFFICE VISIT Date of Service: 08/15/18 MR#: [id number] Acct: [id number] Name: DIVYA HUSAIN Rep #: [id number] : 1945 Provider: Dev Bolanos D.O. Age/Sex: 73/M Location: [facility] Status: Signed Assessment AND Plan 1. COPD (chronic obstructive pulmonary disease) J44.9 Plan The patient has evidence of severe COPD based upon his last pulmonary function testing. He is currently on a stable triple therapy inhaler regimen and has already completed pulmonary rehabilitation. The patient has been having recent difficulty in qualifying for financial assistance for his Symbicort. I will provide him with additional samples today, along with samples of Breo to be trialed in its place, the patient will qualify for the patient assistance program for the latter medication. The patient is also in need of obtaining his annual influenza vaccination. 2. Chronic hypoxemic respiratory failure J96.11 Plan Continue supplemental oxygen as prescribed. 3. Lung nodule R91.1 Plan Plan to repeat a noncontrasted chest CT prior to his follow- up office visit with me. Orders Orders: Plan Detail Other Orders Orders: Other Medications Discontinued: Fluad 2017-19 63yr up(PF)45 mcg(15 mcgx3)/0.5 mL intramuscula0.5 mL IM ONCE #1 0RF NS Z23 r syringe (flu vac 2018 [id number](PF)) Discontinued Re ason: Office Medication has been Documented as given Follow Up 6 Months (DMB) HPI HPI Comments Details: The patient is a 73-year-old male who presents to the clinic today for a routine scheduled follow-up office visit due to underlying COPD and chronic hypoxic respiratory failure. The patient's is in attendance at today's office visit. If you recall, the patient has a history of chronic hypoxic respiratory failure for which he is on 3 L/min of pulse dose supplemental oxygen when out in public continuous-flow at home. He is a former smoker of approximately 50 pack years, but quit in 2013. He was previously followed by a solid tire finisher in [facility], Dr. Rubio. The patient has severe baseline dyspnea on exertion. He had a noncontrasted chest CT completed in June 2015 which showed the presence of pulmonary nodules. The patient had a repeat chest CT completed August 2016 which showed multiple suspicious noncalcified upper lobe nodules with the largest measuring 1.3 x 0.9 cm. A follow-up PET scan in October 2016 showed no definitive quantitative evidence of viable neoplasm. Alpha-1 antitrypsin testing was also unremarkable. The patient's last surface echocardiogram completed in May 2016 showed evidence of a normal LV size and function with an ejection fraction of 60%. The patient has previously completed pulmonary rehab. He continues to go to the gym 3 times per week. A repeat noncontrasted chest CT was completed in mid October 2017 revealed hyperinflated lung walker with emphysema and apical scarring. The previously noted bilateral lung nodules appeared stable in appearance and size. The patient is on a stable triple therapy inhaler regimen including Symbicort, Incruse and as needed albuterol. A repeat 6 minute walk test completed at the end of April 2018 revealed no significant oxygen desaturation. 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 Today, the patient does report that his breathing quality has been a bit suboptimal over the summer due to the heat and humidity. He currently utilizes his rescue inhaler on average 1-2 times per day. The patient is already completed pulmonary rehabilitation previously. He does report that he just recently completed an antibiotic course, prescribed by ENT for presumed sinusitis. He continues to exercise 3 times per week. He is currently on his last prescription of Symbicort and has had difficulty with renewing his financial assistance program. He is requesting samples of the aforementioned medication today. He does report the presence of continued, chronic exertional dyspnea along with a intermittent cough and chest tightness. His weight has been relatively stable. He denies fevers, chills or night sweats. 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 [Ecotrin] 01/07/16 [History Confirmed 08/15/18] Hydrochlorothiazide [Hctz] 01/07/16 [History Confirmed 08/15/18] Insulin Pump Controller 01/07/16 [History Confirmed 08/15/18] brimonidine 0.2 % eye drops See Rx Instructions OPHTHALMIC QDAY ml 11/15/17 [History Confirmed 08/15/18] enalapril maleate 20 mg tablet 10 mg PO DAILY tab 11/15/17 [History Confirmed 08/15/18] insulin lispro (U- 100) 100 unit/mL subcutaneous solution 100 unit SC QAM ml 11/15/17 [History Confirmed 08/15/18] lactulose 10 gram/15 mL (15 mL) oral solution See Rx Instructions PO BID 11/15/17 [History Confirmed 08/15/18] latanoprost 0.005 % eye drops 1 drp OPHTHALMIC QDAY ml 11/15/17 [History Confirmed 08/15/18] simvastatin 10 mg tablet 10 mg PO QPM 11/15/17 [History Confirmed 08/15/18] timolol 0.5 % eye drops 1 drp OPHTHALMIC BID 11/15/17 [History Confirmed 08/15/18] albuterol sulfate HFA 90 mcg/actuation aerosol inhaler 2 puff INHALATION Q4H PRN #1 device 11/20/17 [Rx Confirmed 08/15/18] cholecalciferol (vitamin D3) 50,000 unit capsule 50,000 unit PO .COMPLEX 11/20/17 [History Confirmed 08/15/18] umeclidinium 62.5 mcg/actuation blister powder for inhalation 1 inh INHALATION QDAY #1 device 11/20/17 [Rx Confirmed 08/15/18] budesonide-formoterol HFA 160 mcg-4.5 mcg/actuation aerosol inhaler 2 inh INHALATION Q12H #1 device 05/23/18 [Rx Confirmed 08/15/18] PFSH Medical History Pulmonary nodule (Chronic) Chronic hypoxemic respiratory failure (Chronic) COPD (chronic obstructive pulmonary disease) (Chronic) Constipation (Acute) Low back pain (Acute) Nonallopathic lesion of lumbar region (Acute) Nonallopathic lesion of rib cage (Acute) Nonallopathic lesion of sacral region (Acute) Nonallopathic lesion of thoracic region, not elsewhere classified (Acute) Otalgia (Acute) Otitis externa (Acute) Pain in lower limb (Acute) Serous otitis media (Acute) Thoracic back pain (Acute) Wax in ear (Acute) Allergic rhinitis (Chronic) Anemia (Chronic) Benign localized hyperplasia of prostate (Chronic) COPD (chronic obstructive pulmonary disease) (Chronic) Carpal tunnel syndrome (Chronic) Chronic allergic rhinitis (Chronic) Chronic otitis media (Chronic) Diabetes mellitus (Chronic) Former smoker (Chronic) GERD (gastroesophageal reflux disease) (Chronic) Neuralgia (Chronic) PVD (peripheral vascular disease) (Chronic) Peripheral edema (Chronic) Peripheral vascular insufficiency (Chronic) Pulmonary nodule (Chronic) Reactive airway disease (Chronic) Renal disorder (Chronic) Respiratory failure (Chronic) Thoracic outlet syndrome (Chronic) post inflammatory pulmonary fibrosis (Chronic) Surgical History H/O inguinal hernia repair (Resolved) H/O prostate biopsy (Resolved) History of appendectomy (Resolved) History of carpal tunnel surgery of left wrist (Resolved) S/P bilateral foot surgery (Resolved) S/P rotator cuff repair (Resolved) Family History Sister Diabetes Father Heart disease Social History Smoking Status: Former smoker quit date: 11/12/13 pack-years: 55 second hand exposure: No alcohol intake: never substance use type: does not use Review of Systems Const CONSTITUTIONAL: Positive fatigue; negative anorexia, body ache, chills, daytime sleepiness, fever(s), night sweats, oral thrush, stops breathing during sleep, weight loss, sleeping in chair, weight loss, weight gain, frequent colds, seasonal allergies, other, headache(s) or orthopnea EETM Ear Nose Throat Mouth: Positive hearing normal and nasal discharge; negative hard of hearing, hoarseness, dry mouth in morning, change in vision, itchy eyes, eye pain, swallowing Difficulty, ear pain, nose bleed, headache(s), mouth pain, nasal congestion, post nasal drip, sinus pain, sinus pressure, sore throat or other Cardio Cardiovascular: Positive edema Location: lower extremity; negative chest pain, chest pain at rest, chest pain with activity, irregular heart rhythm, shortness of breath when lying down, palpitations, murmur or other Resp Respiratory: Positive as per HPI, shortness of breath shortness of breath: Positive with activity and inhalers; negative pain with cough, wheezing, chest congestion, cough, chest tightness, pain on inspiration, increase use of rescue inhalers, snoring, apnea or other Gastro Gastrointestional: Negative bloody stools, change in appetite, difficulty swallowing, reflux, hematemesis, melena stool, loose stool, constipation or other Genitourinary: Negative blood in urine, nocturia, pain with urination or other Musc Musculoskeletal: Negative body pain, back pain, neck pain or other Skin/Breast Skin/Breast: Negative dry skin, itching, rash, unusual bruising, breast lump or other Neuro Neurological: Negative restless legs, confusion, weakness or other Psych Psychocological: Negative abnormal sleep pattern, anxiety, thoughts of hurting self/others, hopelessness or other Lymph Lymphatic: Negative easy bleeding, easy bruising, swollen lymph nodes or other Exam Const Constitutional: Positive conversant, cooperative, in no acute respiratory distress, well developed, well nourished, good hygiene and wearing supplemental oxygen Head Head: Positive normocephalic and atraumatic; negative cyanosis of lips/distal nose Eyes Eye: Positive clear conjunctiva; negative nystagmus or scleral abnormality Ears Ear: Positive hearing normal; negative hard of hearing Nose Nose: Positive external nose normal; negative epistaxis Mouth Mouth: Positive oral mucosae normal and posterior oropharynx is adequate; negative post nasal drip or oral thrush present Mallampati Score: II: Mallampati Score Neck Neck: Positive normal visual inspection and trachea midline; negative lymphadenopathy Chest Wall Chest: Positive symmetric chest movement and increased A/P diameter Resp lung sounds: Positive diminished diminished: Positive global and prolonged expiratory time; negative wheezes, rhonchi or rales Cardio Cardiac: Positive regular rate, regular rhythm, S1 normal and S2 normal; negative murmur GI GI: Positive normal bowel sounds Soft without distention Genitourinary: Positive deferred Musc Musculoskeletal: Positive steady gait Skin Pulmonary Skin Exam: Positive intact; negative rash or lesion Pulses Diminished peripheral pulses Extremities Extremities: No clubbing, No cyanosis, No edema Neuro Neurologic: Yes conversant, Yes no focal neuro deficits, Yes cooperative Lymph Lymphatic: No lymphadenopathy Psych Appearance: Positive grossly normal Mental Status: Positive mental status grossly normal Mood: Positive congruent mood Affect: Positive normal affect Immunizations Fluad 2018- 65yr up(PF)45 mcg(15 mcgx3)/0.5 mL intramuscular syringe Performing Provider: Dev Bolanos DO Administered by: Anahi Feliz on 08/15/18 14:33 Dose Route Admin Location Lot Number Expiration Date [facility] Bleach Liquor Maker 0.5 mL IM Right Deltoid [id number] 03/11/19 69527-575-66 SEQIRUS VIS Given Date VIS Publication Date 08/15/18 06/18/15 Eligibility Eligibility Date Coding Level of Care Code Off vis,est,level 3 Diagnoses COPD (chronic obstructive pulmonary disease) J44.9 Chronic hypoxemic respiratory failure J96.11 Lung nodule R91.1 08/16/18 0753 <Electronically signed by Dev Bolanos DO> Date Dev Bolanos DO Ana Paulaigndiego Signature: Date (if applicable) CC: Lucas Lozano DO CMP Collected: 08/13/2018 Status: F Source: [facility] 8:58 AM [facility] REPOSITORY TYPE CODE TESTS RESULT OUT OF REFERENCE UNITS RANGE LAB GLU(LOINC) 83-110 mg/dL Glucose High Level 164 LAB NA(LOINC) 136-145 mmol/L Low Sodium Level 132 LAB K(LOINC) 3.5-5.1 mmol/L Potassium Level 4.4 LAB CL(LOINC) 98-107 mmol/L Low Chloride 95 LAB CO2(LOINC) 23-31 mmol/L CO2 30 LAB EBAL(LOINC mEq/L ) Electrolyte Balance 7.0 LAB BUN(LOINC) 7-18 mg/dL BUN High 21 LAB CRE(LOINC) 0.70-1.30 mg/dL Creatinine High Lvl (s) 2.05 LAB BC(LOINC) 7-27 ratio BUN/Creatinine 10 Ratio LAB CA(LOINC) 8.4-10.2 mg/dL Calcium Lvl 8.4 LAB PROT(LOINC 6.4-8.2 G/dL ) Low Total Protein 6.1 LAB ALB(LOINC) 3.4-4.8 G/dL Low Albumin Level 2.9 LAB GLB(LOINC) G/dL Globulin 3.2 LAB AG(LOINC) 1.1-2.5 ratio Low A/G Ratio 0.9 LAB BILT(LOINC 0.2-1.0 mg/dL ) Bili Total 0.3 LAB AP(LOINC) 40-135 U/L Alk Phos 128 LAB AST(LOINC) 10-40 U/L AST/SGOT 15 LAB ALT(LOINC) 10-35 U/L ALT/SGPT 23 Performed By: #### CMP, LIPID, GFR, TSH, A1C #### [place] [address] LIPID Collected: 08/13/2018 Status: F Source: [facility] 8:58 AM [facility] REPOSITORY TYPE CODE TESTS RESULT OUT OF REFERENCE UNITS RANGE LAB CHOL(LOINC 0-200 mg/dL ) Cholesterol High 211 Result Comment: Cholesterol Reference Interval: Less than 200 Desirable 200-239 Borderline high risk 240 and above High risk LAB TRIG(LOINC) 0-150 mg/dL Triglycerides 124 Result Comment: Triglyceride Reference Interval: Less than 150 Normal 150-199 Borderline high risk 200-499 High risk 500 or higher Very high risk LAB HD(LOINC) 40-60 mg/dL HDL Cholesterol 42 LAB LDL(LOINC) 0-130 mg/dL LDL High Cholesterol 144 Performed By: #### CMP, LIPID, GFR, TSH, A1C #### [facility] [address] [place] [address] .GFR Collected: 08/13/2018 Status: F Source: [facility] 8:58 AM [facility] REPOSITORY TYPE CODE TESTS RESULT OUT OF REFERENCE UNITS RANGE LAB GFRAA(LOINC ml/min/1.73 ) sqm GFR 39 Bulgarian Result Comment: GFR Population mean for , Non- Americans Ages 20-29 = 116 mL/min/1.73 sq.m. Ages 30-39 = 107 mL/min/1.73 sq.m. Ages 40-49 = 99 mL/min/1.73 sq.m. Ages 50-59 = 93 mL/min/1.73 sq.m. Ages 60-69 = 85 mL/min/1.73 sq.m. Ages 70+ = 75 mL/min/1.73 sq.m. Chronic Kidney Disease: Less than 60 mL/min/1.73 square meters End Stage Renal Disease: Less than 15 mL/min/1.73 square meters LAB GFRNO(LOINC) ml/min/1.73sqm GFR Non- 32 Result Comment: GFR Population mean for , Non- Americans Ages 20-29 = 116 mL/min/1.73 sq.m. Ages 30-39 = 107 mL/min/1.73 sq.m. Ages 40-49 = 99 mL/min/1.73 sq.m. Ages 50-59 = 93 mL/min/1.73 sq.m. Ages 60-69 = 85 mL/min/1.73 sq.m. Ages 70+ = 75 mL/min/1.73 sq.m. Chronic Kidney Disease: Less than 60 mL/min/1.73 square meters End Stage Renal Disease: Less than 15 mL/min/1.73 square meters Performed By: #### CMP, LIPID, GFR, TSH, A1C #### [facility] [address] [place] [address] TSH Collected: 08/13/2018 Status: F Source: [facility] 8:58 AM [facility] REPOSITORY TYPE CODE TESTS RESULT OUT OF RANGE REFERENCE UNITS LAB TSH(LOINC) 0.36-3.74 mcIU/mL TSH 1.03 Performed By: #### CMP, LIPID, GFR, TSH, A1C #### [facility] [address] [place] [address] A1C Collected: 08/13/2018 Status: F Source: [facility] 8:58 AM [facility] REPOSITORY TYPE CODE TESTS RESULT OUT OF RANGE REFERENCE UNITS LAB A1C(LOINC) 4.5-6.2 % High Hgb A1c 8.6 Performed By: #### CMP, LIPID, GFR, TSH, A1C #### [place] [address] Observed: 08/01/2018 Status: F Source: [place] CULTURE, NOSE 10:40 AM [facility] REPOSITORY Gram Stain Gram Stain 1+ White Blood Cells Rare Gram positive cocci Nasoph. Cult ORGANISM 1: Streptococcus pneumoniae Amount Growth 2+ ORGANISM 2: Staphylococcus aureus Amount Growth Rare Streptococcus pneumoniae: REACTION Cefotaxime (meningitis) $ <=0.12 S Cefotaxime (Other dx) $ <=0.12 S (meningitis)Ceftriaxone $ <=0.12 S Ceftriaxone (other dx) $ <=0.12 S Clindamycin $$ <=0.25 S Erythromycin $ <=0.12 S Levofloxacin $ 1 S Moxifloxicin *NF 0.12 S Tetracycline NF <=0.25 S Trimethoprim/Sulfametho $ <=10 S Vancomycin $ 0.5 S (NF) indicates non-formulary drug at [facility]. Approval by Infectious Disease Specialist required before non-formulary drugs may be ordered and/or dispensed. * CLSI guidelines does not recommend testing of cephalosporins. This interpretation is deduced from Beta-lactam/penicillin results. Staphylococcus aureus: REACTION Benzylpenicillin NF >=0.5 R Cefoxitin *NF - Clindamycin $$ <=0.25 R Inducable Clindamycin Resistan + Erythromycin $ >=8 R Gentamicin $ <=0.5 S Levofloxacin $ >=8 R Linezolid $$$$ 2 S Moxifloxicin *NF 2 S Oxacillin NF 0.5 S Tigecycline $$$$ <=0.12 S Rifampin $$ <=0.5 S Tetracycline NF <=1 S Trimethoprim/Sulfametho $ <=10 S Vancomycin $ 1 S (NF) indicates non-formulary drug at [facility]. Approval by Infectious Disease Specialist required before non-formulary drugs may be ordered and/or dispensed. * CLSI guidelines does not recommend testing of cephalosporins. This interpretation is deduced from Beta-lactam/penicillin results. Performed By: #### [id number] #### [facility] [address] [place], [address] PULMONARY VISIT REPORT Observed: 05/21/2018 Status: F Source: [place] 1:18 PM [facility] REPOSITORY [facility] [place] [address] [place], [place] [address] OFFICE VISIT Date of Service: 05/21/18 MR#: [id number] Acct: [id number] Name: DIVYA HUSAIN Rep #: [id number] : 1945 Provider: Dev Bolanos D.O. Age/Sex: 73/M Location: [facility] [email or web address] Status: Signed Assessment AND Plan 1. COPD (chronic obstructive pulmonary disease) J44.9 Plan The patient has evidence of advanced stage COPD, will remains on a stable triple therapy inhaler regimen with Symbicort and Incruse. This will be continued without change. The patient has already completed pulmonary rehabilitation and remains active, working out 3 times per week. The patient has been advised to call this office with any worsening in his breathing quality and/or increased reliance on his short acting beta agonist. 2. Chronic hypoxemic respiratory failure J96.11 Plan Continue supplemental oxygen as prescribed. 3. Lung nodule R91.1 Plan Recommend yearly low-dose CT scan, given age and smoking history. The patient will be due for repeat chest imaging in October 2018. Plan Detail Follow Up 3 Months (DMB) HPI HPI Comments Details: The patient is a 73-year-old male who presents to the clinic today for a routine scheduled follow-up office visit due to underlying COPD and chronic hypoxic respiratory failure. The patient's is in attendance at today's office visit. If you recall, the patient has a history of chronic hypoxic respiratory failure for which he is on 2 L/min of pulse dose supplemental oxygen when out in public continuous-flow at home. He is a former smoker of approximately 50 pack years, but quit in 2013. He was previously followed by a solid tire finisher in [facility], Dr. Rubio. The patient has severe baseline dyspnea on exertion. He had a noncontrasted chest CT completed in June 2015 which showed the presence of pulmonary nodules. The patient had a repeat chest CT completed August 2016 which showed multiple suspicious noncalcified upper lobe nodules with the largest measuring 1.3 x 0.9 cm. A follow-up PET scan in October 2016 showed no definitive quantitative evidence of viable neoplasm. Alpha-1 antitrypsin testing was also unremarkable. The patient's last surface echocardiogram completed in May 2016 showed evidence of a normal LV size and function with an ejection fraction of 60%. The patient has previously completed pulmonary rehab. He continues to go to the gym 3 times per week. A repeat noncontrasted chest CT was completed in mid October 2017 revealed hyperinflated lung walker with emphysema and apical scarring. The previously noted bilateral lung nodules appeared stable in appearance and size. The patient is on a stable triple therapy inhaler regimen including Symbicort, Incruse and as needed albuterol. A repeat 6 minute walk test completed at the end of April 2018 revealed no significant oxygen desaturation. 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 Today, the patient reports overall stability in his breathing quality. He continues to experience exertional dyspnea, which is unchanged from previous. The patient remains compliant with his triple therapy inhaler regimen. He has not been evaluated in the emergency department or urgent care for breathing related issues since his last office visit. He continues to go to the gym to workout 3 times per week. He reports that he never has to use his rescue inhaler. His weight has been stable. He denies fevers, chills or night sweats. He denies chest pain, dizziness or lightheadedness. Intake Vital Signs05/21/18 Height 5 ft 8 in 05/21/18 Weight: 183 lb 05/21/18 Body Mass Index (BMI) 27.8 Intake Visit Reasons: 6 M FU Accompanied by: Allergies budesonide Allergy (Severe, Verified 05/21/18 12:36) Other - can't breathe amoxicillin [From Augmentin] Allergy (Unknown, Verified 05/21/18 12:36) Unknown clavulanic acid [From Augmentin] Allergy (Unknown, Verified 05/21/18 12:36) Unknown Sulfa (Sulfonamide Antibiotics) Allergy (Unknown, Verified 05/21/18 12:36) Unknown Medications Albuterol Aerosols [Ventolin Aerosols] 01/07/16 [History Confirmed 05/21/18] Aspirin E.C. [Ecotrin] 01/07/16 [History Confirmed 05/21/18] Hydrochlorothiazide [Hctz] 01/07/16 [History Confirmed 05/21/18] Insulin Pump Controller 01/07/16 [History Confirmed 05/21/18] brimonidine 0.2 % eye drops See Label Instructions OPHTHALMIC QDAY ml 11/15/17 [History Confirmed 05/21/18] enalapril maleate 20 mg tablet 10 mg PO DAILY tab 11/15/17 [History Confirmed 05/21/18] insulin lispro (U-100) 100 unit/mL subcutaneous solution 100 unit SC QAM ml 11/15/17 [History Confirmed 05/21/18] lactulose 10 gram/15 mL (15 mL) oral solution See Label Instructions PO BID 11/15/17 [History Confirmed 05/21/18] latanoprost 0.005 % eye drops 1 drp OPHTHALMIC QDAY ml 11/15/17 [History Confirmed 05/21/18] simvastatin 10 mg tablet 10 mg PO QPM 11/15/17 [History Confirmed 05/21/18] timolol 0.5 % eye drops 1 drp OPHTHALMIC BID 11/15/17 [History Confirmed 05/21/18] albuterol sulfate HFA 90 mcg/actuation aerosol inhaler 2 puff INHALATION Q4H PRN #1 device 11/20/17 [Rx Confirmed 05/21/18] budesonide-formoterol HFA 160 mcg-4.5 mcg/actuation aerosol inhaler 2 inh INHALATION Q12H #1 device 11/20/17 [Rx Confirmed 05/21/18] cholecalciferol (vitamin D3) 50,000 unit capsule 50,000 unit PO .COMPLEX 11/20/17 [History Confirmed 05/21/18] umeclidinium 62.5 mcg/actuation blister powder for inhalation 1 inh INHALATION QDAY #1 device 11/20/17 [Rx Confirmed 05/21/18] [facility] Medical History Pulmonary nodule (Chronic) Chronic hypoxemic respiratory failure (Chronic) COPD (chronic obstructive pulmonary disease) (Chronic) Constipation (Acute) Low back pain (Acute) Nonallopathic lesion of lumbar region (Acute) Nonallopathic lesion of rib cage (Acute) Nonallopathic lesion of sacral region (Acute) Nonallopathic lesion of thoracic region, not elsewhere classified (Acute) Otalgia (Acute) Otitis externa (Acute) Pain in lower limb (Acute) Serous otitis media (Acute) Thoracic back pain (Acute) Wax in ear (Acute) Allergic rhinitis (Chronic) Anemia (Chronic) Benign localized hyperplasia of prostate (Chronic) COPD (chronic obstructive pulmonary disease) (Chronic) Carpal tunnel syndrome (Chronic) Chronic allergic rhinitis (Chronic) Chronic otitis media (Chronic) Diabetes mellitus (Chronic) Former smoker (Chronic) GERD (gastroesophageal reflux disease) (Chronic) Neuralgia (Chronic) PVD (peripheral vascular disease) (Chronic) Peripheral edema (Chronic) Peripheral vascular insufficiency (Chronic) Pulmonary nodule (Chronic) Reactive airway disease (Chronic) Renal disorder (Chronic) Respiratory failure (Chronic) Thoracic outlet syndrome (Chronic) post inflammatory pulmonary fibrosis (Chronic) Surgical History H/O inguinal hernia repair (Resolved) H/O prostate biopsy (Resolved) History of appendectomy (Resolved) History of carpal tunnel surgery of left wrist (Resolved) S/P bilateral foot surgery (Resolved) S/P rotator cuff repair (Resolved) Family History Sister Diabetes Father Heart disease Social History Smoking Status: Former smoker quit date: 11/12/13 pack-years: 55 second hand exposure: No alcohol intake: never substance use type: does not use Review of Systems Const CONSTITUTIONAL: Negative anorexia, body ache, chills, daytime sleepiness, fever(s), night sweats, oral thrush, stops breathing during sleep, weight loss, sleeping in chair, fatigue, weight loss, weight gain, frequent colds, seasonal allergies, other, headache(s) or orthopnea EETM Ear Nose Throat Mouth: Positive hearing normal; negative hard of hearing, hoarseness, dry mouth in morning, change in vision, itchy eyes, eye pain, swallowing Difficulty, ear pain, nose bleed, headache(s), mouth pain, nasal congestion, nasal discharge, post nasal drip, sinus pain, sinus pressure, sore throat or other Cardio Cardiovascular: Negative chest pain, chest pain at rest, chest pain with activity, irregular heart rhythm, edema, shortness of breath when lying down, palpitations, murmur or other Resp Respiratory: Positive as per HPI and shortness of breath; negative pain with cough, wheezing, chest congestion, cough, chest tightness, pain on inspiration, inhalers, increase use of rescue inhalers, snoring, apnea or other Gastro Gastrointestional: Negative bloody stools, change in appetite, difficulty swallowing, reflux, hematemesis, melena stool, loose stool, constipation or other Genitourinary: Negative blood in urine, nocturia, pain with urination or other Musc Musculoskeletal: Negative body pain, back pain, neck pain or other Skin/Breast Skin/Breast: Negative dry skin, itching, rash, unusual bruising, breast lump or other Neuro Neurological: Negative restless legs, confusion, weakness or other Psych Psychocological: Negative abnormal sleep pattern, anxiety, thoughts of hurting self/others, hopelessness or other Lymph Lymphatic: Negative easy bleeding, easy bruising, swollen lymph nodes or other Exam Const Constitutional: Positive conversant, cooperative, in no acute respiratory distress, well developed, well nourished, good hygiene and wearing supplemental oxygen Head Head: Positive normocephalic and atraumatic; negative cyanosis of lips/distal nose Eyes Eye: Positive clear conjunctiva; negative nystagmus or scleral abnormality Ears Ear: Positive hearing normal and external ears normal; negative hard of hearing Nose Nose: Positive external nose normal; negative epistaxis Mouth Mouth: Positive oral mucosae normal and posterior oropharynx is adequate; negative no lesions or post nasal drip Mallampati Score: II: Mallampati Score Neck Neck: Positive normal visual inspection and trachea midline; negative lymphadenopathy Chest Wall Chest: Positive symmetric chest movement and increased A/P diameter Resp lung sounds: Positive wheezes wheezing: Positive lower and diminished diminished: Positive global; negative rhonchi or rales Cardio Cardiac: Positive regular rate, regular rhythm, S1 normal and S2 normal; negative rub, gallop or murmur GI GI: Positive normal bowel sounds Soft without distention Genitourinary: Positive deferred Musc Musculoskeletal: Positive steady gait Skin Pulmonary Skin Exam: Positive intact; negative lesion, ulcers, dermal atrophy or rash Pulses Diminished peripheral pulses Extremities Extremities: No clubbing, No cyanosis, Yes edema Location: lower extremity Neuro Neurologic: Yes conversant, Yes no focal neuro deficits, Yes cooperative Lymph Lymphatic: No lymphadenopathy Psych Appearance: Positive grossly normal Mental Status: Positive mental status grossly normal Mood: Positive congruent mood Affect: Positive normal affect Coding Level of Care Code Off vis,est,level 3 Diagnoses COPD (chronic obstructive pulmonary disease) J44.9 Chronic hypoxemic respiratory failure J96.11 Lung nodule R91.1 05/21/18 1318 <Electronically signed by Dev Bolanos DO> Date Dev Bolanos DO Cosigner Signature: Date (if applicable) CC: Lucas Lozano DO PULMONARY FUNCTION Observed: 05/14/2018 Status: F Source: [facility] TEST 9:45 AM [facility] REPOSITORY [facility] Pulmonary Services/Neurology [address] [place] [address] MR#: [id number] Acct: [id number] Name: DIVYA HUSAIN Rep #: [id number] : 1945 73 From: Dev Bolanos DO Referring Dr: Dev Bolanos D.O. Status: REG CLI Ordering Dr: Date: Location: [facility] Sex: M C INTRODUCTION: The patient is a 73-year-old male currently under the care of myself the presents for pulmonary function testing secondary to a diagnosis of COPD. Respiratory therapy reports good patient effort. Bronchodilators were used during testing. INTERPRETATION: Forced expiration spirometry demonstrates the presence of a severe large airways obstructive ventilatory defect. There was a partial bronchodilator response, although it was not considered clinically significant. Spirograms are of good quality and do not plateau indicating slow emptying of the lungs. Body plethysmography was performed and reveals an elevated TLC and RV, indicative of underlying hyperinflation and air-trapping. Diffusing capacity by single breath CO is moderately reduced at 55% of predicted. When compared to previous pulmonary function studies dated February 2017 there is been a 14% reduction in FEV1, along with worsening hyperinflation and air-trapping. 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 There has been worsening in the patient's PFTs since they were last completed in February 2017. 05/14/18944 <Electronically signed by Dev Bolanos DO> Date Dev Bolanos DO CC: Lucas Lozano DO; Dev Bolanos D.O. Date Dictated: 05/14/18940 Date Transcribed: 05/14/18940 Aeronautics Teacher: LIZABETH Signed 6 MINUTE WALK TEST Observed: 05/09/2018 Status: F Source: [place] 2:28 PM [facility] REPOSITORY [facility] Pulmonary Services/Neurology [address] [place] [address] MR#: [id number] Acct: [id number] Name: DIVYA HUSAIN Rep #: [id number] : 1945 73 From: Justin Martins MD Referring Dr: Dev Bolanos D.O. Date: Ordering Dr: Iliana: Jhon Goodwin Location: PSN PSN 6 Minute Walk Test - 6 Minute Walk Test 6 Minute Walk Test: 6 Minute Walk Test PSN:6-Minute Walk Test Start: 05/09/18 12:32 Freq: Status: Active Protocol: [id number] Document 05/09/18 12:33 NEVILLE (Rec: 05/09/18 12:36 MARYSOLA [id number]) 6 Minute Walk Test Date Performed 05/09/18 Time Performed 12:00 Height 5 ft 8 in Weight: 82.024 kg Weight in Pounds 180.[address]: Dev Bolanos Assistive device used: None Pre-test Oxygen Delivery Method Room Air Pulse Ox (%) 100 Pulse Rate (60-100 beats/min) 69 Dyspnea Cornelio Scale (0-10) 0 Exertion Cornelio Scale (6-20) 6 1st minute Oxygen Delivery Method Room Air Pulse Ox (%) 97 Pulse Rate (60-100 beats/min) 86 2nd minute Oxygen Delivery Method Room Air Pulse Ox (%) 96 Pulse Rate (60-100 beats/min) 88 3rd minute Oxygen Delivery Method Room Air Pulse Ox (%) 96 Pulse Rate (60-100 beats/min) 90 4th minute Oxygen Delivery Method Room Air Pulse Ox (%) 93 Pulse Rate (60-100 beats/min) 95 Number of Rests Taken 1 5th minute Oxygen Delivery Method Room Air Pulse Ox (%) 98 Pulse Rate (60-100 beats/min) 90 Number of Rests Taken 1 6th minute Oxygen Delivery Method Room Air Pulse Ox (%) 98 Pulse Rate (60-100 beats/min) 98 Dyspnea Cornelio Scale (0-10) 3 Exertion Cornelio Scale (6-20) 13 Number of Rests Taken 1 Post-test Oxygen Delivery Method Room Air Pulse Ox (%) 99 Pulse Rate (60-100 beats/min) 74 Full Laps Walked 9 Partial Lap, Number of Tiles Walked 0 Total Distance Walked (ft) 531 - Interpretation Interpretation: The patient was able to ambulate only 531 feet over the course of 6 minutes on room air with no assistive devices. The patient did require 2 breaks secondary to leg pain. Patient's lowest oxygen saturation was noted at 93% and no significant tachycardia was noted during testing. These findings are consistent with a musculoskeletal limitation exercise tolerance. - Recommendations Recommendations: No supplemental oxygen is indicated at this time. Sensitivity for desaturation is limited by minimal distance traveled. 05/09/18 1428 <Electronically signed by Justin Martins MD> Date Justin Martins MD CC: Date Dictated: 05/09/18 142 Date Transcribed: 05/09/18 142 Aeronautics Teacher: Justin Martins Signed CBC Collected: 05/02/2018 Status: F Source: [facility] 8:58 AM [facility] REPOSITORY TYPE CODE TESTS RESULT OUT OF REFERENCE UNITS RANGE LAB WBC(LOINC) 4.60-10.80 10 3/mcL WBC 5.60 LAB RBCCT(LOINC 4.04-6.13 10 6/mcL ) Low RBC 3.52 LAB HGB(LOINC) 14.0-18.0 G/dL Low Hgb 9.7 LAB HCT(LOINC) 42.0-52.0 % Low Hct 28.2 LAB MCV(LOINC) 80.0-94.0 fL MCV 80.2 LAB MCH(LOINC) 27.0-31.2 pg MCH 27.5 LAB MCHC(LOINC) 31.8-35.4 G/dL MCHC 34.3 LAB RDW(LOINC) 11.5-14.5 % RDW 13.6 LAB PLT(LOINC) 130-400 10 3/mcL Platelet 244 LAB MPV(LOINC) 7.4-10.4 fL MPV 8.8 Performed By: #### CBC, ADIFF, ANEU, RFP, GFR #### [address] [address] #### PTH #### [address] [address] .AUTO DIFF Collected: 05/02/2018 Status: F Source: [facility] 8:58 AM [facility] REPOSITORY TYPE CODE TESTS RESULT OUT OF REFERENCE UNITS RANGE LAB NIKKIE(LOINC) 37.0-80.0 % Neutrophil % 71.4 LAB LYM(LOINC) 10.0-50.0 % Lymphocyte % 10.4 LAB MON(LOINC) 1.7-13.0 % Monocyte % 11.1 LAB EO(LOINC) 0.0-7.0 % Eosinophil % 6.3 LAB BAS(LOINC) 0.0-2.5 % Basophil % 0.8 LAB ABLYM(LOIN 0.77-3.85 10 3/mcL C) Low Lymphocyte, 0.60 Absolute LAB CELIA(LOINC 0.15-1.00 10 3/mcL ) Monocyte, 0.60 Absolute LAB AEOS(LOINC 0.00-0.40 10 3/mcL ) Eosinophil, 0.40 Absolute LAB ABAS(LOINC 0.00-0.19 10 3/mcL ) Basophil, 0.00 Absolute Performed By: #### CBC, ADIFF, ANEU, RFP, GFR #### [address] [address] #### PTH #### [address] [address] .NEUABS Collected: 05/02/2018 Status: F Source: [facility] 8:58 AM [facility] REPOSITORY TYPE CODE TESTS RESULT OUT OF REFERENCE UNITS RANGE LAB ANEU(LOINC) 2.85-6.16 10 3/mcL Neutrophil, 4.00 Absolute Performed By: #### CBC, ADIFF, ANEU, RFP, GFR #### [address] [address] #### PTH #### [place] [address] RFP Collected: 05/02/2018 Status: F Source: [facility] 8:58 AM [facility] REPOSITORY TYPE CODE TESTS RESULT OUT OF REFERENCE UNITS RANGE LAB GLU(LOINC) 83-110 mg/dL Glucose High Level 196 LAB NA(LOINC) 136-146 mEq/L Sodium Level 137 LAB K(LOINC) 3.5-5.1 mEq/L Potassium Level 4.4 LAB CL(LOINC) 98-107 mEq/L Chloride 100 LAB CO2(LOINC) 23-31 mEq/L CO2 28 LAB EBAL(LOINC mEq/L ) Electrolyte Balance 9.0 LAB BUN(LOINC) 7.0-18.0 mg/dL BUN High 24.9 LAB CRE(LOINC) 0.6-1.2 mg/dL Creatinine High Lvl (s) 1.9 LAB BC(LOINC) 7-27 ratio BUN/Creatinine 13 Ratio LAB CA(LOINC) 8.4-10.2 mg/dL Calcium Lvl 8.4 LAB PHOS(LOINC 2.3-4.1 mg/dL ) Phosphorus 3.2 LAB ALB(LOINC) 3.4-4.8 G/dL Albumin Level 3.4 Performed By: #### CBC, ADIFF, ANEU, RFP, GFR #### [address] [address] #### PTH #### [address] [address] .GFR Collected: 05/02/2018 Status: F Source: [facility] 8:58 AM [facility] REPOSITORY TYPE CODE TESTS RESULT OUT OF REFERENCE UNITS RANGE LAB GFRAA(LOINC ml/min/1.73 ) sqm GFR 42 Bulgarian Result Comment: GFR Population mean for , Non- Americans Ages 20-29 = 116 mL/min/1.73 sq.m. Ages 30-39 = 107 mL/min/1.73 sq.m. Ages 40-49 = 99 mL/min/1.73 sq.m. Ages 50-59 = 93 mL/min/1.73 sq.m. Ages 60-69 = 85 mL/min/1.73 sq.m. Ages 70+ = 75 mL/min/1.73 sq.m. Chronic Kidney Disease: Less than 60 mL/min/1.73 square meters End Stage Renal Disease: Less than 15 mL/min/1.73 square meters LAB GFRNO(LOINC) ml/min/1.73sqm GFR Non- 35 Result Comment: GFR Population mean for , Non- Americans Ages 20-29 = 116 mL/min/1.73 sq.m. Ages 30-39 = 107 mL/min/1.73 sq.m. Ages 40-49 = 99 mL/min/1.73 sq.m. Ages 50-59 = 93 mL/min/1.73 sq.m. Ages 60-69 = 85 mL/min/1.73 sq.m. Ages 70+ = 75 mL/min/1.73 sq.m. Chronic Kidney Disease: Less than 60 mL/min/1.73 square meters End Stage Renal Disease: Less than 15 mL/min/1.73 square meters Performed By: #### CBC, ADIFF, ANEU, RFP, GFR #### [address] [place] [address] [place], [place] [address] #### PTH #### [place] [address] PTH Collected: 05/02/2018 Status: F Source: [email or web address] 8:58 AM [facility] REPOSITORY TYPE CODE TESTS RESULT OUT OF REFERENCE UNITS RANGE LAB PTH(LOINC) 18.5-88.0 pg/mL High PTH, Intact 107.2 Performed By: #### CBC, ADIFF, ANEU, RFP, GFR #### [address] [address] #### PTH #### [facility] [address] [place] [address] A1C Collected: 05/02/2018 Status: F Source: [facility] 8:57 AM [facility] REPOSITORY TYPE CODE TESTS RESULT OUT OF RANGE REFERENCE UNITS LAB A1C(LOINC) 4.8-5.9 % High Hgb A1c 7.3 Performed By: #### A1C, LIPID, CMP, GFR, TSH #### [place] [address] [place], [place] [address] LIPID Collected: 05/02/2018 Status: F Source: [facility] 8:57 AM [facility] REPOSITORY TYPE CODE TESTS RESULT OUT OF REFERENCE UNITS RANGE LAB CHOL(LOINC 131-200 mg/dL ) Cholesterol High 259 Result Comment: Cholesterol Reference Interval: Less than 200 Desirable 200-239 Borderline high risk 240 and above High risk LAB TRIG(LOINC) 40-150 mg/dL Triglycerides High 235 Result Comment: Triglyceride Reference Interval: Less than 150 Normal 150-199 Borderline high risk 200-499 High risk 500 or higher Very high risk LAB HD(LOINC) 35-90 mg/dL HDL Cholesterol 35 Result Comment: HDL Reference Interval: Less than 40 Low - high risk 60 or above Optimal/lowers risk LAB LDL(LOINC) 0-130 mg/dL LDL High Cholesterol 177 Result Comment: LDL is a calculated result and requires a 12-hr fast. LDL Reference Interval: Less than 100 Optimal 100-129 Near or above optimal 130-159 Borderline high risk 160-189 High risk 190 and above Very high risk Performed By: #### A1C, LIPID, CMP, GFR, TSH #### [place] [address] [place], [place] [address] CMP Collected: 05/02/2018 Status: F Source: [facility] 8:57 AM [facility] REPOSITORY TYPE CODE TESTS RESULT OUT OF REFERENCE UNITS RANGE LAB GLU(LOINC) 83-110 mg/dL Glucose High Level 194 LAB NA(LOINC) 136-146 mEq/L Sodium Level 137 LAB K(LOINC) 3.5-5.1 mEq/L Potassium Level 4.4 LAB CL(LOINC) 98-107 mEq/L Chloride 100 LAB CO2(LOINC) 23-31 mEq/L CO2 28 LAB EBAL(LOINC mEq/L ) Electrolyte Balance 9.0 LAB BUN(LOINC) 7.0-18.0 mg/dL BUN High 24.8 LAB CRE(LOINC) 0.6-1.2 mg/dL Creatinine High Lvl (s) 1.9 LAB BC(LOINC) 7-27 ratio BUN/Creatinine 13 Ratio LAB CA(LOINC) 8.4-10.2 mg/dL Low Calcium Lvl 8.3 LAB PROT(LOINC 6.0-8.3 G/dL ) Total Protein 6.2 LAB ALB(LOINC) 3.4-4.8 G/dL Low Albumin Level 3.3 LAB GLB(LOINC) G/dL Globulin 2.9 LAB AG(LOINC) 1.1-2.5 ratio A/G Ratio 1.1 LAB BILT(LOINC 0.2-1.0 mg/dL ) Bili Total 0.2 LAB AP(LOINC) 40-135 IU/L Alk Phos 109 LAB AST(LOINC) 10-40 IU/L AST/SGOT 14 LAB ALT(LOINC) 10-35 IU/L ALT/SGPT 11 Performed By: #### A1C, LIPID, CMP, GFR, TSH #### [address] [address] .GFR Collected: 05/02/2018 Status: F Source: [facility] 8:57 AM [facility] REPOS[facility] TYPE CODE TESTS RESULT OUT OF REFERENCE UNITS RANGE LAB GFRAA(LOINC ml/min/1.73 ) sqm GFR 41 Bulgarian Result Comment: GFR Population mean for , Non- Americans Ages 20-29 = 116 mL/min/1.73 sq.m. Ages 30-39 = 107 mL/min/1.73 sq.m. Ages 40-49 = 99 mL/min/1.73 sq.m. Ages 50-59 = 93 mL/min/1.73 sq.m. Ages 60-69 = 85 mL/min/1.73 sq.m. Ages 70+ = 75 mL/min/1.73 sq.m. Chronic Kidney Disease: Less than 60 mL/min/1.73 square meters End Stage Renal Disease: Less than 15 mL/min/1.73 square meters LAB GFRNO(LOINC) ml/min/1.73sqm GFR Non- 34 Result Comment: GFR Population mean for , Non- Americans Ages 20-29 = 116 mL/min/1.73 sq.m. Ages 30-39 = 107 mL/min/1.73 sq.m. Ages 40-49 = 99 mL/min/1.73 sq.m. Ages 50-59 = 93 mL/min/1.73 sq.m. Ages 60-69 = 85 mL/min/1.73 sq.m. Ages 70+ = 75 mL/min/1.73 sq.m. Chronic Kidney Disease: Less than 60 mL/min/1.73 square meters End Stage Renal Disease: Less than 15 mL/min/1.73 square meters Performed By: #### A1C, LIPID, CMP, GFR, TSH #### [address] [address] TSH Collected: 05/02/2018 Status: F Source: [employer] 8:57 AM [facility] REPOSITORY TYPE CODE TESTS RESULT OUT OF RANGE REFERENCE UNITS LAB TSH(LOINC) 0.27-4.20 mcIU/mL TSH 1.35 Performed By: #### A1C, LIPID, CMP, GFR, TSH #### [address] [address] PRUR Collected: 01/07/2018 Status: F Source: [employer] 10:50 AM [facility] REPOSITORY TYPE CODE TESTS RESULT OUT OF REFERENCE UNITS RANGE LAB PRU(LOINC) 0-14 mg/dL U High Protein 118 Performed By: #### PRUR, CRUR #### [address] [address] CRUR Collected: 01/07/2018 Status: F Source: [employer] 10:50 AM [facility] REPOSITORY TYPE CODE TESTS RESULT OUT OF REFERENCE UNITS RANGE LAB CRU(LOINC) 39.0-259.0 mg/dL U Creatinine 71.9 Performed By: #### PRUR, CRUR #### [address] [address] CBC Collected: 01/07/2018 Status: F Source: [facility] 8:58 AM [facility] REPOSITORY TYPE CODE TESTS RESULT OUT OF REFERENCE UNITS RANGE LAB WBC(LOINC) 4.60-10.80 10 3/mcL WBC 6.80 LAB RBCCT(LOINC 4.04-6.13 10 6/mcL ) Low RBC 3.70 LAB HGB(LOINC) 14.0-18.0 G/dL Low Hgb 10.1 LAB HCT(LOINC) 42.0-52.0 % Low Hct 30.0 LAB MCV(LOINC) 80.0-94.0 fL MCV 81.2 LAB MCH(LOINC) 27.0-31.2 pg MCH 27.3 LAB MCHC(LOINC) 31.8-35.4 G/dL MCHC 33.7 LAB RDW(LOINC) 11.5-14.5 % RDW 13.9 LAB PLT(LOINC) 130-400 10 3/mcL Platelet 213 LAB MPV(LOINC) 7.4-10.4 fL MPV 8.6 Performed By: #### CBC, ADIFF, ANEU, GFR, RFP #### [address] [address] #### PTH #### [place] [address] .AUTO DIFF Collected: 01/07/2018 Status: F Source: [facility] 8:58 [facility] REPOSITORY TYPE CODE TESTS RESULT OUT OF REFERENCE UNITS RANGE LAB NIKKIE(LOINC) 37.0-80.0 % Neutrophil % 73.7 LAB LYM(LOINC) 10.0-50.0 % Lymphocyte % 11.1 LAB MON(LOINC) 1.7-13.0 % Monocyte % 10.7 LAB EO(LOINC) 0.0-7.0 % Eosinophil % 3.6 LAB BAS(LOINC) 0.0-2.5 % Basophil % 0.9 LAB ABLYM(LOIN 0.77-3.85 10 3/mcL C) Lymphocyte, 0.80 Absolute LAB CELIA(LOINC 0.15-1.00 10 3/mcL ) Monocyte, 0.70 Absolute LAB AEOS(LOINC 0.00-0.40 10 3/mcL ) Eosinophil, 0.20 Absolute LAB ABAS(LOINC 0.00-0.19 10 3/mcL ) Basophil, 0.10 Absolute Performed By: #### CBC, ADIFF, ANEU, GFR, RFP #### [place] [address] [place], [place] [address] #### PTH #### [address] [address] .NEUABS Collected: 01/07/2018 Status: F Source: [facility] 8:58 AM [facility] REPOSITORY TYPE CODE TESTS RESULT OUT OF REFERENCE UNITS RANGE LAB ANEU(LOINC) 2.85-6.16 10 3/[facility] Neutrophil, 5.00 Absolute Performed By: #### CBC, ADIFF, ANEU, GFR, RFP #### [place] [address] [place], [place] [address] #### PTH #### [address] [address] .GFR Collected: 01/07/2018 Status: F Source: [facility] 8:58 AM [facility] REPOSITORY TYPE CODE TESTS RESULT OUT OF REFERENCE UNITS RANGE LAB GFRAA(LOINC ml/min/1.73 ) sqm GFR 47 Bulgarian Result Comment: GFR Population mean for , Non- Americans Ages 20-29 = 116 mL/min/1.73 sq.m. Ages 30-39 = 107 mL/min/1.73 sq.m. Ages 40-49 = 99 mL/min/1.73 sq.m. Ages 50-59 = 93 mL/min/1.73 sq.m. Ages 60-69 = 85 mL/min/1.73 sq.m. Ages 70+ = 75 mL/min/1.73 sq.m. Chronic Kidney Disease: Less than 60 mL/min/1.73 square meters End Stage Renal Disease: Less than 15 mL/min/1.73 square meters LAB GFRNO(LOINC) ml/min/1.73sqm GFR Non- 39 Result Comment: GFR Population mean for , Non- Americans Ages 20-29 = 116 mL/min/1.73 sq.m. Ages 30-39 = 107 mL/min/1.73 sq.m. Ages 40-49 = 99 mL/min/1.73 sq.m. Ages 50-59 = 93 mL/min/1.73 sq.m. Ages 60-69 = 85 mL/min/1.73 sq.m. Ages 70+ = 75 mL/min/1.73 sq.m. Chronic Kidney Disease: Less than 60 mL/min/1.73 square meters End Stage Renal Disease: Less than 15 mL/min/1.73 square meters Performed By: #### CBC, ADIFF, ANEU, GFR, RFP #### [place] [address] [place], [place] [address] #### PTH #### [address] [address] RFP Collected: 01/07/2018 Status: F Source: [facility] 8:58 AM [facility] REPOSITORY TYPE CODE TESTS RESULT OUT OF REFERENCE UNITS RANGE LAB 1547-9 83-110 mg/dL GLUCOSE High 239 LAB NA(LOINC) 136-146 mEq/L Low Sodium Level 134 LAB K(LOINC) 3.5-5.1 mEq/L Potassium Level 4.9 LAB CL(LOINC) 98-107 mEq/L Chloride 99 LAB CO2(LOINC) 23-31 mEq/L CO2 28 LAB EBAL(LOINC mEq/L ) Electrolyte Balance 7.0 LAB BUN(LOINC) 7.0-18.0 mg/dL BUN High 21.9 LAB CRE(LOINC) 0.6-1.2 mg/dL Creatinine High Lvl (s) 1.7 LAB BC(LOINC) 7-27 ratio BUN/Creatinine 13 Ratio LAB CA(LOINC) 8.4-10.2 mg/dL Calcium Lvl 8.5 LAB PHOS(LOINC 2.3-4.1 mg/dL ) Phosphorus 3.3 LAB ALB(LOINC) 3.4-4.8 G/dL Albumin Level 3.7 Performed By: #### CBC, ADIFF, ANEU, GFR, RFP #### [address] [address] #### PTH #### [address] [address] PTH Collected: 01/07/2018 Status: F Source: [facility] 8:58 AM [facility] REPOSITORY TYPE CODE TESTS RESULT OUT OF REFERENCE UNITS RANGE LAB PTH(LOINC) 18.5-88.0 pg/mL High PTH, Intact 88.1 Performed By: #### CBC, ADIFF, ANEU, GFR, RFP #### [place] [address] [place], [place] [address] #### PTH #### [place] [address] CMP Collected: 01/07/2018 Status: F Source: [facility] 8:57 AM [facility] REPOSITORY TYPE CODE TESTS RESULT OUT OF REFERENCE UNITS RANGE LAB 1547-9 83-110 mg/dL GLUCOSE High 240 LAB NA(LOINC) 136-146 mEq/L Low Sodium Level 134 LAB K(LOINC) 3.5-5.1 mEq/L Potassium Level 4.8 LAB CL(LOINC) 98-107 mEq/L Chloride 99 LAB CO2(LOINC) 23-31 mEq/L CO2 28 LAB EBAL(LOINC mEq/L ) Electrolyte Balance 7.0 LAB BUN(LOINC) 7.0-18.0 mg/dL BUN High 22.2 LAB CRE(LOINC) 0.6-1.2 mg/dL Creatinine High Lvl (s) 1.7 LAB BC(LOINC) 7-27 ratio BUN/Creatinine 13 Ratio LAB CA(LOINC) 8.4-10.2 mg/dL Calcium Lvl 8.5 LAB PROT(LOINC 6.0-8.3 G/dL ) Total Protein 6.5 LAB ALB(LOINC) 3.4-4.8 G/dL Albumin Level 3.6 LAB GLB(LOINC) G/dL Globulin 2.9 LAB AG(LOINC) 1.1-2.5 ratio A/G Ratio 1.2 LAB BILT(LOINC 0.2-1.0 mg/dL ) Bili Total 0.3 LAB AP(LOINC) 40-135 IU/L Alk Phos 108 LAB AST(LOINC) 10-40 IU/L AST/SGOT 12 LAB ALT(LOINC) 10-35 IU/L ALT/SGPT 11 Performed By: #### CMP, GFR, A1C #### [address] [address] .GFR Collected: 01/07/2018 Status: F Source: [facility] 8:57 AM [facility] REPOSITORY TYPE CODE TESTS RESULT OUT OF REFERENCE UNITS RANGE LAB GFRAA(LOINC ml/min/1.73 ) sqm GFR 47 Bulgarian Result Comment: GFR Population mean for , Non- Americans Ages 20-29 = 116 mL/min/1.73 sq.m. Ages 30-39 = 107 mL/min/1.73 sq.m. Ages 40-49 = 99 mL/min/1.73 sq.m. Ages 50-59 = 93 mL/min/1.73 sq.m. Ages 60-69 = 85 mL/min/1.73 sq.m. Ages 70+ = 75 mL/min/1.73 sq.m. Chronic Kidney Disease: Less than 60 mL/min/1.73 square meters End Stage Renal Disease: Less than 15 mL/min/1.73 square meters LAB GFRNO(LOINC) ml/min/1.73sqm GFR Non- 39 Result Comment: GFR Population mean for , Non- Americans Ages 20-29 = 116 mL/min/1.73 sq.m. Ages 30-39 = 107 mL/min/1.73 sq.m. Ages 40-49 = 99 mL/min/1.73 sq.m. Ages 50-59 = 93 mL/min/1.73 sq.m. Ages 60-69 = 85 mL/min/1.73 sq.m. Ages 70+ = 75 mL/min/1.73 sq.m. Chronic Kidney Disease: Less than 60 mL/min/1.73 square meters End Stage Renal Disease: Less than 15 mL/min/1.73 square meters Performed By: #### CMP, GFR, A1C #### [address] [address] A1C Collected: 01/07/2018 Status: F Source: [facility] 8:57 [facility] REPOSITORY TYPE CODE TESTS RESULT OUT OF RANGE REFERENCE UNITS LAB A1C(LOINC) 4.8-5.9 % High Hgb A1c 7.1 Performed By: #### CMP, GFR, A1C #### [address] [address] ALLERGIES ALLERGIES DATE TYPE / CODE NAME / CODE REACTION SEVERITY SOURCE 10/24/2018 Drug Sulfa Unknown Unknown [place] Allergy/416 (Sulfonamide Community 053987(SNOM Antibiotics)/F001 [facility] ED [place]) 323203(RXNORM) Repository 10/24/2018 Drug clavulanic Unknown Unknown [place] Allergy/416 acid/[id number](R Community 312423([facility] ED [facility]) Repository 10/24/2018 Drug amoxicillin/F0060 Unknown Unknown [place] Allergy/416 92404(RXNORM) Community 236406([facility] ED CT) Repository 10/24/2018 Drug budesonide/F44370 Other - can't SV [place] Allergy/416 4214(RXNORM) breathe Community 211713([facility] ED CT) Repository ENCOUNTERS ENCOUNTERS ADMIT/DISCHARGE ACCOUNT NUMBER ADMITTING ENCOUNTER LOCATION SOURCE CLASS 11/13/2018/11/13/19 [id number] Ambulatory BBuilding:OL [address] Repository 10/24/2018 [id number] Ambulatory [facility] ding:RAD Repository 10/24/2018/10/24/20 [id number] Ambulatory BMSBuilding: [place] 18 BMS.[facility] Repository 09/16/2018 [id number] Ambulatory [facility] ding:LAB.FUT Repository URE 09/09/2018 [id number] Ambulatory [facility] ding:US Repository 09/03/2018/09/03/20 [id number] Ambulatory [address] ding:[facility] Repository 08/21/2018/08/21/20 [id number] Ambulatory [address] [facility] 08/15/2018/08/15/20 [id number] [facility] BMS[facility] [place] [facility] [place] 08/13/2018/08/13/20 [id number] Ambulatory [address] ding:OLAB [facility] Repository 08/01/2018 [id number] Ambulatory [facility] ding:LABSPEC Repository 05/21/2018/05/21/20 [id number] Ambulatory BMSBuilding: [place] 18 BMS.[facility] Repository 05/14/2018 [id number] Ambulatory BMSBuilding: [place] [facility] Repository 05/13/2018 [id number] Ambulatory [facility] ding:PSN Repository 05/09/2018 [id number] Ambulatory [facility] ding:PSN Repository 05/09/2018 [id number] Ambulatory BMSBuilding: [facility] Repository 05/02/2018/05/02/20 [id number] Ambulatory [address] ding:[facility] Repository 05/02/2018/05/02/20 [id number] Ambulatory [address] ding:[facility] Repository 01/22/2018 [id number] Ambulatory [facility] ding:LAB.FUT Repository URE 01/07/2018/01/07/20 [id number] Ambulatory [address] ding:[facility] Repository 01/07/2018/01/07/20 [id number] Ambulatory [address] ding:[facility] Repository PAYERS PAYERS ENCOUNTER GUARANTOR PAYER SUBSCRIBER SOURCE 11/13/2018 DIVYA W Primary [facility]: Insurance:MEDICARE [facility]: [facility] [id number] [facility] [id number] Repository [place]YS[place] Number: [address] [place] [id number] [facility], [place] [address]Qjr: 330) Date:2018-11-1319562Bkk: [id number] [phone] ()Tel: (999) Name:[facility] () (WP) Administrators LLCPO 000-0000 (WP) [address] [address]zixsjf, [place] [address]YO: 11/13/2018 Secondary [facility] Insurance:ANTHEM BLUE STUTZMANDOB: [facility] CROSS-SECONDCarilion Clinicy [id number] Repository Number: [id number] [facility] Date:2018-11-13 [address]Uwq: [phone] [phone] [phone] Name:YAMILA Naqvi ()Tel: ([phone]) [phone] [place] [address] 000-0000 ) [address]WX: 10/24/2018 DIVYA W Primary DIVYA W [place] [id number] [address] Insurance:MEDICARE STUTZMANDOB: [place] PART A [facility] [id number] Hospital [address]Oll: (330) Number: Repository [phone] () [id number] Date:2018-10-24 10/24/2018 Secondary DIVYA W [place] Insurance:ANTHEMPolic STUTZMANDOB: Community y Number: [id number] [id number] Repository Date:6855-47-18US [address] [address]FH: 10/24/2018 Tertiary NOT GIVENUNK [place] Insurance:SELF PAY [facility] Number: Effective Repository Date:2018-10-24 10/24/2018 DIVYA W Primary DIVYA W [place] [id number] JA[place] Insurance:MEDICARE STUTZMANDOB: [place] PART A [facility] [id number] Hospital [address]Qlp: (330) Number: Repository [phone] () [id number] Date:2018-10-24 10/24/2018 Secondary DIVYA W [place] Insurance:ANTHEMPolic STUTZMANDOB: Community y Number: [id number] Vista Regional [id number] Repository Date:4841-47-85WE [address] [place] [address]CF: 10/24/2018 Tertiary NOT GIVENUNK [place] Insurance:SELF PAY [facility] Number: Effective Repository Date:2018-10-24 09/16/2018 DIVYA W Primary DIVYA W [place] [id number] [place] Insurance:MEDICARE STUTZMANDOB: [place] PART A [facility] [id number] Hospital [address]Klk: (330) Number: Repository [phone] () [id number] Date:2018-09-16 09/16/2018 Secondary DIVYA W [place] Insurance:ANTHEMPolic STUTZMANDOB: Community y Number: [id number] Hospital [id number] Repository Date:8108-06-62[address], [place] [address]BK: 09/16/2018 Tertiary NOT GIVENUNK [place] Insurance:SELF PAY [facility] Number: Effective Repository Date:2018-09-16 09/09/2018 DIVYA W Primary DIVYA W [place] [id number] [place] Insurance:MEDICARE STUTZMANDOB: Community [facility] PART A BPolicy [id number] Hospital [address]Tao: (330) Number: Repository [phone] () [id number] Date:2018-08-08 09/09/2018 Secondary DIVYA W [place] Insurance:ANTHEMPolic STUTZMANDOB: Community y Number: [id number] [id number] Repository Date:6365-28-91[address] [place] [address]GG: 09/09/2018 Tertiary NOT GIVENUNK [place] Insurance:SELF PAY [facility] Number: Effective Repository Date:2018-08-08 09/03/2018 DIVYA W Primary DIVYA W [facility] STUTZMANDOB: Insurance:MEDICARE STUTZMANDOB: [facility] [id number] PART olicy Number: [id number] Repository JAYSON [id number] [address] [place] [place] Date:2018-09-03 - [place], [place] [address]Qcu: [phone] [address]Ahc: Name:[facility] [phone] ()Tel: ([phone]) Administrators LLCPO () (WP) [address]Ukhllqbab, 000-0000 (WP) [place] [address]AL: 09/03/2018 Secondary DIVYA W [facility] Insurance:ANTHEM BLUE STUTZMANDOB: [facility] [id number] Repository Number: 1 [address] [id number] [place], [place] Date:2018-09-03 [address]Gpi: [phone] [phone] Name:[address] (HP)Tel: 000) [id number], [place] 000-0000 (WP) [address]SK: 08/21/2018 DIVYA W Primary [facility] W [facility]: Insurance:MEDICARE [facility]MANDOB: [facility] PART BPolicy Number: [id number] Repository JAYSON [id number] [address] [place], [place] Date:2018-08-21 - [place], [place] [address]Ffe: [phone] [address]Our: Name:[facility] [phone] ()Tel: ([phone]) Administrators LLCPO (HP) (WP) [address] [address]Qvorrqoqw, 000-0000 (WP) [place] [address]BO: 08/21/2018 Secondary [facility] Insurance:[facility] XIONG [facility]: [facility] [id number] Repository Number: 1 [address] [id number] [place], [place] Date:2018-08-21 [address]Wwh: [phone] [phone] Name:O Box (HP)Tel: (000) [phone], [place] 000-0000 (WP) [address]VE: 08/15/2018 DIVYA W Primary [facility] W [facility]2941 [place] Insurance:MEDICARE STUTZMANDOB: [facility] [place] PART A BPolicy [id number] Hospital [address]Urj: (330) Number: Repository [phone] () [id number] Date:2018-05-21 08/15/2018 Secondary DIVYA W [place] Insurance:ANTHEMPolic STUTZMANDOB: Community y Number: [id number] Hospital [id number] Repository Date:6953-10-95[address]TE[place]VM, [place] [address]GD: 08/15/2018 Tertiary NOT GIVENUNK [place] Insurance:SELF PAY [facility] Number: Effective Repository Date:2018-08-08 08/13/2018 DIVYA W Primary DIVYA W [facility] STUTZMANDOB: Insurance:MEDICARE STUTZMANDOB: [facility] PART BPolicy Number: [id number] Repository JAYSON [id number] [address] [place], [place] Date:2018-08-13 - [place], [place] [address]Xoi: [phone] [id number] [phone]: Name:[facility] [phone] ()Tel: ([phone]) Administrators LLCPO () (WP) [address] [address]Nxnhbstwr, 000-0000 () [place] [address]DC: 08/13/2018 Secondary DIVYA W [facility] Insurance:ANTHEM BLUE [facility] FACILITYMANDOB: [facility] [id number] Repository Number: 1 [address] [id number] [place], [place] Date:2018-08-13 [address]Vzk: [phone] [phone] Name:[facility] Box ()Tel: 000) [address]Huzuiub, [place] 000-0000 (WP) [address]AE: 08/01/2018 DIVYA W Primary DIVYA W [place] [id number] [place] Insurance:MEDICARE STUTZMANDOB: [place] PART A [facility] [id number] Hospital [address]Hqp: (330) Number: Repository [phone] () [id number] Date:2018-08-01 08/01/2018 Secondary DIVYA W [place] Insurance:ANTHEMPolic STUTZMANDOB: Community y Number: [id number] Hospital [id number] Repository Date:6649-37-18BP[address] [address]RC: 08/01/2018 Tertiary NOT GIVENUNK [place] Insurance:SELF PAY [facility] Number: Effective Repository Date:2018-08-01 05/21/2018 DIVYA W Primary DIVYA W [place] [id number] [place] Insurance:MEDICARE STUTZMANDOB: Community [place] PART A [facility] [id number] Hospital [address]Lsg: (330) Number: Repository [phone] () [id number] Date:2017-11-20 05/21/2018 Secondary DIVYA W [place] Insurance:ANTHEMPolic STUTZMANDOB: Community y Number: [id number] Hospital [id number] Repository Date:0878-44-79[address] [place] [address]XW: 05/21/2018 Tertiary NOT GIVENUNK [place] Insurance:SELF PAY [facility] Number: Effective Repository Date:2018-05-13 05/14/2018 DIVYA W Primary DIVYA W [place] [id number] [place] Insurance:MEDICARE STUTZMANDOB: [place] PART A [facility] [id number] Hospital [address]Vbm: (330) Number: Repository [phone] () [id number] Date:2017-11-20 05/14/2018 Secondary DIVYA W [place] Insurance:ANTHEMPolic STUTZMANDOB: Community y Number: [id number] Hospital [id number] Repository Date:0757-81-12[address] [place] [address]AF: 05/14/2018 Tertiary NOT GIVENUNK [place] Insurance:SELF PAY [facility] Number: Effective Repository Date:2018-05-14 05/13/2018 DIVYA W Primary DIVYA W [place] [id number] [place] Insurance:MEDICARE STUTZMANDOB: Community [place] PART A olicy [id number] Hospital [address]Ipf: (330) Number: Repository [phone] () [id number] Date:2017-11-20 05/13/2018 Secondary DIVYA W [place] Insurance:ANTHEMPolic STUTZMANDOB: Community y Number: [id number] Hospital [id number] Repository Date:7468-46-75YF [address] [place] [address] [place] [address]VG: 05/13/2018 Tertiary NOT GIVENUNK [place] Insurance:SELF PAY [facility] Number: Effective Repository Date:2017-11-20 05/09/2018 DIVYA W Primary DIVYA W [place] [id number] [place] Insurance:MEDICARE STUTZMANDOB: Community [place] PART A olic [id number] Hospital [address]Sdd: (330) Number: Repository [phone] () [id number] Date:2017-11-20 05/09/2018 Secondary DIVYA W [place] Insurance:ANTHEMPolic STUTZMANDOB: Community y Number: [id number] Hospital [id number] Repository Date:2570-87-75QN [address] [place] [address] [place] [address]SZ: 05/09/2018 Tertiary NOT GIVENUNK [place] Insurance:SELF PAY [facility] Number: Effective Repository Date:2017-11-20 05/09/2018 DIVYA W Primary DIVYA W [place] [id number] [place] Insurance:MEDICARE STUTZMANDOB: [place] PART A [facility] [id number] Hospital [address]Ykn: (330) Number: Repository [phone] () [id number] Date:2017-11-20 05/09/2018 Secondary DIVYA W [place] Insurance:ANTHEMPolic STUTZMANDOB: Community y Number: [id number] Hospital [id number] Repository Date:8282-22-64[address]CRP[place], [place] [address]EI: 05/09/2018 Tertiary NOT GIVENUNK [place] Insurance:SELF PAY [facility] Number: Effective Repository Date:2018-05-09 05/02/2018 DIVYA W Primary [facility]YA [facility] PART BPolicy Number: [id number] Repository JAYSON [id number] 1 [address] [place] Date:2018-05-02 - [place], [place] [address]Auz: [phone] [address]Euw: Name:[place] [phone] (HP)Tel: (999) Administrators LLCPO (HP) (WP) [address] [address]Nrlxjxhee, 000-0000 (WP) [place] [address]SP: 05/02/2018 Secondary DIVYA [facility] Insurance:[facility]: [facility] [id number] Repository Number: 1 [address] [id number] [place], [place] Date:2018-05-02 - [address]Rgl: [phone] [phone] Name:YAMILA Naqvi (HP)Tel: (000) [phone], [place] 000-0000 (WP) [address]NT: 05/02/2018 DIVYA W Primary DIVYA [facility]: Insurance:[facility]ICARE [facility] PART BPolicy Number: [id number] Repository JA[place] [id number] 1 [place] [place], [place] Date:2018-05-02 [place], [place] [address]Avh: ([phone]) [phone] [address]Tsv: Name:[facility] [phone] (HP)Tel: (999) Administrators LLCPO (HP) (WP) [address] [address]Yqpqeglis, 000-0000 (WP) [place] [address]UA: 05/02/2018 Secondary DIVYA W [facility] STUTZMANDOB: [facility] [id number] Repository Number: 1 [address] [id number] [place], [place] Date:2018-05-02 - [address]Iew: [phone] [id number] [phone] Name:YAMILA Naqvi ()Tel: [phone]) [phone], [place] 000-0000 (WP) [address]SD: 01/22/2018 DIVYA W Primary DIVYA W [place] [id number] [place] Insurance[facility]IC[facility] [place] PART A olic [id number] Hospital [address]Xip: [phone] Number: Repository [phone] () [id number] Date:2018-01-22 01/22/2018 Secondary DIVYA W [place] [facility] y Number: [id number] Hospital [id number] Repository Date:[id number] [place] [address]UA: 01/22/2018 Tertiary NOT GIVENUNK [place] Insurance:SELF PAY [facility] Number: Effective Repository Date:2018-01-22 01/07/2018 DIVYA W [facility] Insurance:MEDICARE STUTZMANDOB: [facility] [id number] PART BPolicy Number: [id number] Repository JA[place] [id number] 1 [facility] [facility] [place] Date:2018-01-07 - [place], [place] [address]Pof: [phone] [id number]: Name:[facility] [phone] ()Tel: ([phone] Administrators LLCPO (HP) (WP) [address] [address]Mvwdayoef, 000-0000 (WP) [place] [address]PT: 01/07/2018 Secondary DIVYA W [facility] [id number] Repository Number: 1 [address] [id number] [place], [place] Date:2018-01-07 [id number]: [phone] [id number] [phone] Name:R[address] (HP)Tel: [phone]) [phone], [place] 000-0000 (WP) [address]TN: 01/07/2018 DIVYA W Primary DIV[facility] W [facility] Insurance:MEDICARE STUTZMANDOB: [facility] PART BPolicy Number: [id number] Repository [address] [id number] 1 [place], [place] Date:2018-01-07 - [place], [place] [address]Jmq: [phone] [id number]: Name:[facility] [id number] (HP)Tel: [phone] Akunysqhscknrl LLCPO (HP) (WP) [address], 000[address] (WP) [place] [address]DE: 01/07/2018 Secondary DIVYA [facility]G [facility] [id number] Repository Number: [address] [id number] [place], [place] Date:2018-01-07 [address]Fdi: [phone] [id number] [phone] Name:[address] (HP)Tel: [phone], [place] 000-0000 (WP) [address]WZ:
== END ==
PROVIDERS: Family Provider Family Medicine; PCP Family Medicine; Referring Provider Nurse Practitioner Acute Care; Visit Provider Nurse Practitioner Acute Care
DX: J96.11 Chronic respiratory failure with hypoxia (principal); R06.02 Shortness of breath
CPT/HCPCS: 36415; 71046; 80048; 83880

== ENCOUNTER → 2019-01-28 14:40 | Outpatient (CLI) | payer MEDICARE, BC, SELFPAY ==
[2018-10-24 14:18] VITALS: BMI 27.9
--- NOTE | 2019-01-28 14:43 | CT_ITS ---
STUDY: CT CHEST WITHOUT CONTRAST REASON FOR EXAM: Male, 74 years old. Pulmonary nodule RADIATION DOSAGE (If Supplied By Facility): CTDIvol = ( 9.53 ) mGy, DLP = ( 311.61 ) mGycm TECHNIQUE: Transaxial imaging was performed without the administration of intravenous contrast material. Multiplanar coronal and sagittal images were reformatted. Individualized dose optimization techniques were used for this CT. COMPARISON: October 26, 2017, August 24, 2016 CT chest FINDINGS: Within the right apex there is a focal nodule measuring 1.6 x 0.8 cm. There are 2 focal nodules in the left apex measuring 6.3 and 8.1 mm. In the anterior aspect of the right upper lobe there is a nodule measuring 1.4 cm. These are all stable since the prior study. There is a pattern of hyperinflation and emphysematous change increased AP diameter of the chest. There is no demonstrated pleural abnormality. The heart is of normal size there are dense coronary calcifications. There are a few nonspecific fat filled small lymph nodes. Normal hilar regions. Normal unenhanced pulmonary arteries. The aorta is tortuous and partially calcified. There is kyphosis. There is multilevel degenerative change. There is no demonstrated abnormality of the visualized upper abdomen. CT/Chest without Contrast IMPRESSION: Stable bilateral apical nodules likely compatible with sequelae of prior granulomatous disease or prior infection. Pulmonary edema, chronic obstructive pulmonary disease. Recommend follow-up based on clinical grounds or as a screening evaluation the patient's underlying chronic obstructive pulmonary disease emphysema. Coronary artery disease dense coronary calcification. Electronically Signed: Yumiko Alcaraz MD at 15:43 EDT Tel , Service support ,
== END ==
PROVIDERS: Family Provider Family Medicine; PCP Family Medicine; Referring Provider Internal Medicine Critical Care Medicine; Visit Provider Internal Medicine Critical Care Medicine
DX: R91.1 Solitary pulmonary nodule (principal)
CPT/HCPCS: 71250

== ENCOUNTER → 2019-05-06 | Outpatient (CLI) | payer MEDICARE, BC, SELFPAY ==
[2019-02-12 13:25] VITALS: BMI 27.5
--- NOTE | 2019-05-06 15:51 | PFTCOMP_ITS ---
COMPLETE PULMONARY FUNCTION TEST INTERPRETATION Brief HPI: Patient is a 74 year old male, currently under the care of Dr. Bolanos, who presents to [facility] for complete pulmonary function tests secondary to diagnosis of COPD. Respiratory therapist reports good effort and reproducible results. Interpretation: Forced expiration spirometry shows a severe large airways obstructive ventilatory defect with an FEV1 of 41% predicted. There is no significant bronchodilator response by strict ATS criteria. Spirograms are of good quality and plateau slowly, indicating slowly emptying areas of the lungs. The respiratory flow volume loop shows decreased expiratory flow rates at all lung volumes consistent with airway obstruction. Lung volumes by body plethysmography show an elevated total lung capacity at 9.44 L, 159% predicted. FRC and RV are elevated out of proportion. Lung volume measurements are consistent with hyperinflation and air-trapping. Diffusion capacity by carbon monoxide is decreased at 58% predicted. The airway resistance is elevated. Compared to previous pulmonary function tests from 05/13/2018, there is been an improvement in FEV1 by 14%, but worsening and air trapping.. Impression: Irreversible severe large airways obstructive ventilatory defect with a symmetric reduction diffusing capacity, resulting in air trapping with hyperinflation.
== END | disposition home or self-care (01) ==
LOC: PSN 12:42
PROVIDERS: Family Provider Family Medicine; PCP Family Medicine; Referring Provider Nurse Practitioner Acute Care; Visit Provider Nurse Practitioner Acute Care
DX: J44.9 Chronic obstructive pulmonary disease, unspecified (principal)
CPT/HCPCS: 94060; 94726; 94729

== ENCOUNTER → 2019-05-08 | Outpatient (CLI) | payer MEDICARE, BC, SELFPAY ==
[2019-02-12 13:25] VITALS: BMI 27.5
[2019-05-08 12:30] VITALS: PULSE 83; PULSE 85; PULSE 87; PULSE 93; PULSE 96; O2SAT 82; O2SAT 97; O2SAT 98; O2SAT 99
--- NOTE | 2019-05-08 14:36 | PCM.PSN.6M ---
PSN 6 Minute Walk Test - 6 Minute Walk Test 6 Minute Walk Test: 6 Minute Walk Test PSN:6-Minute Walk Test Start: 05/08/19 12:43 Freq: Status: Active Protocol: RESP.6MINW Document 05/08/19 12:30 HG (Rec: 05/08/19 12:46 HG [id number]) 6 Minute Walk Test Date Performed 05/08/19 Time Performed 12:30 Height 5 ft 8 in Weight: 77.111 kg Weight in Pounds 170.[address]: Mariaelena Schilling Assistive device used: None Pre-test Oxygen Delivery Method Room Air Pulse Ox (%) 97 Pulse Rate (60-100 beats/min) 83 Dyspnea Cornelio Scale (0-10) 2 Exertion Cornelio Scale (6-20) 8 1st minute Oxygen Delivery Method Room Air Pulse Ox (%) 82 Pulse Rate (60-100 beats/min) 85 2nd minute Oxygen Flow Rate (L/min) (L/min) 2 Oxygen Delivery Method Nasal Cannula Pulse Ox (%) 99 Pulse Rate (60-100 beats/min) 87 3rd minute Oxygen Flow Rate (L/min) (L/min) 2 Oxygen Delivery Method Nasal Cannula Pulse Ox (%) 99 Pulse Rate (60-100 beats/min) 96 4th minute Oxygen Flow Rate (L/min) (L/min) 2 Oxygen Delivery Method Nasal Cannula Pulse Ox (%) 99 Pulse Rate (60-100 beats/min) 85 Number of Rests Taken 1 Reported Symptoms Increased Work of Breathing 5th minute Oxygen Flow Rate (L/min) (L/min) 2 Oxygen Delivery Method Nasal Cannula Pulse Ox (%) 99 Pulse Rate (60-100 beats/min) 96 6th minute Oxygen Flow Rate (L/min) (L/min) 2 Oxygen Delivery Method Nasal Cannula Pulse Ox (%) 98 Pulse Rate (60-100 beats/min) 93 Reported Symptoms Increased Work of Breathing Post-test Oxygen Flow Rate (L/min) (L/min) 2 Oxygen Delivery Method Nasal Cannula Pulse Ox (%) 98 Pulse Rate (60-100 beats/min) 87 Dyspnea Cornelio Scale (0-10) 3 Exertion Cornelio Scale (6-20) 11 Reported Symptoms Increased Work of Breathing Full Laps Walked 8 Partial Lap, Number of Tiles Walked 0 Total Distance Walked (ft) 472 - Interpretation Interpretation: The patient was noted to be 97% on room air. However, patient desaturated in the first minute to as low as 82%. Patient was placed on 2 L nasal cannula with improvement to 99%. The patient was then able to ambulate the remaining 6 minutes with the addition of 2 breaks. In total, patient traveled 472 feet over the course of 6 minutes with the assistance of 2 breaks. These findings are consistent with a respiratory limitation exercise tolerance. - Recommendations Recommendations: Patient requires no supplemental oxygen at rest, but should be using 2 L nasal cannula oxygen with any exertion.
== END | disposition home or self-care (01) ==
LOC: PSN 12:10
PROVIDERS: Family Provider Family Medicine; PCP Family Medicine; Referring Provider Nurse Practitioner Acute Care; Visit Provider Nurse Practitioner Acute Care
DX: J44.9 Chronic obstructive pulmonary disease, unspecified (principal)
CPT/HCPCS: 94618

== ENCOUNTER → 2019-06-11 | Outpatient (CLI) | payer MEDICARE, BC, SELFPAY ==
[2019-06-11 11:11] VITALS: BMI 27.0
--- NOTE | 2019-06-11 11:58 | RAD_ITS ---
STUDY: X-RAY CHEST REASON FOR EXAM: Male, 74 years old. Shortness of breath. TECHNIQUE: PA and lateral views of the chest. COMPARISON: PA and lateral chest x-ray October 24, 2018; noncontrast CT chest January 28, 2019.. FINDINGS: There are bibasilar interstitial densities and Risa B lines at the lateral lung bases, consistent with bibasilar pulmonary venous congestion or inflammatory change. Mildly lobulated nodular density in the lateral right upper lobe again noted. A second small, bilobed, faint nodular density is also again seen in the left upper lobe at the overlap of the anterior second and posterior left sixth ribs. There is no demonstrated pleural abnormality. Normal size heart. Normal mediastinum and jessica. Normal visualized pulmonary arteries. There is stable mild atherosclerotic calcification of the aortic arch. There are stable multilevel degenerative changes of the visualized thoracic spine. Metal fixation screw again seen in the right humeral head. There is no demonstrated abnormality of the visualized soft tissue structures of the upper abdomen. RAD/Chest PA and Lateral IMPRESSION: 1. New bibasilar interstitial infiltrates and Risa B lines consistent with pulmonary venous congestion versus inflammatory change. 2. Bilobed nodular densities again seen projecting in the lung apices. See report of CT chest from January 2019. 3. Atherosclerotic calcification at the aortic arch. The calcified aortic valve annulus, aortic valvular calcifications, and coronary artery calcifications seen on CT are not well demonstrated here. Electronically Signed: Kade Dee MD at 12:38 EDT , Service support ,
[2019-06-11 12:46] LABS: Anion Gap 7 (5-15); BUN 33 mg/dL (7-18); BUN/Creat Ratio 13.4 RATIO (10-20); Calcium,Total 8.2 mg/dL (8.5-10.1); Chloride 98 mmol/L (98-107); Creatinine, Serum 2.47 mg/dL (0.70-1.30); EST Glomerular Filtration Rate 27 mL/min (>60); Est Glom Filt Rate - Afr Amer 33 mL/min (>60); Glucose 248 mg/dL (74-106); Potassium 4.7 mmol/L (3.5-5.1); Sodium Level 133 mmol/L (136-145)
== END | disposition home or self-care (01) ==
PROVIDERS: Family Provider Family Medicine; PCP Family Medicine; Referring Provider Nurse Practitioner Acute Care; Visit Provider Nurse Practitioner Acute Care
DX: R06.02 Shortness of breath (principal)
CPT/HCPCS: 36415; 71046; 80048; 83880

== ENCOUNTER 2019-06-25 14:13 | Inpatient (IN) | payer MEDICARE, BC, SELFPAY ==
[2019-06-11 11:11] VITALS: BMI 27.0
[2019-06-25] VITALS (11 sets, daily range): BP systolic 151–167; BP diastolic 67–88; PULSE 65–92; RESP 13–22; TEMP 36.4–37; O2SAT 94–100; BMI 27.2; BMI 27.3
--- NOTE | 2019-06-25 14:39 | EKG12_ITS ---
Test Reason : Blood Pressure : / mmHG Vent. Rate : 083 BPM Atrial Rate : 083 BPM P-R Int : 304 ms QRS Dur : 106 ms QT Int : 418 ms P-R-T Axes : 000 -33 127 degrees QTc Int : 491 ms Sinus rhythm with 1st degree A-V block Left axis deviation ST & T wave abnormality, consider lateral ischemia Prolonged QT Abnormal ECG Confirmed by SILVIA HANNON ([id number]), newspaper managing editor TWIN ESPINOZA ([id number]) on 06/26/2019 2:20:33 PM Referred By: FEDERICO Confirmed By:SILVIA HANNON
--- NOTE | 2019-06-25 14:45 | RAD_ITS ---
STUDY: X-RAY CHEST REASON FOR EXAM: Male, 74 years old. Chest pain. TECHNIQUE: Single AP portable view of the chest. COMPARISON: Comparison is made with prior examination dated June 11, 2019. FINDINGS: EKG electrodes are seen. Stable increased interstitial markings at the lung bases suggestive of chronic interstitial fibrosis. Stable findings in the upper lobes. Stable blunting of the left costophrenic angle. Normal size heart. Normal mediastinum and jessica. Normal visualized pulmonary arteries. There is atherosclerotic calcification of the aortic arch with tortuosity. There are diffuse degenerative changes of the visualized thoracic spine. Normal visualized ribs, clavicles, and shoulders. There is no demonstrated abnormality of the visualized soft tissue structures of the upper abdomen. RAD/Chest 1 View (Portable) IMPRESSION: Stable findings suggestive of scarring at the lung bases and mild scarring in the upper lobes. Electronically Signed: Fabricio Shah, at 15:19 EDT , Service support ,
[2019-06-25 15:06] LABS: Absolute Lymphocyte Count 0.44 X10^3/uL (0.83-4.51); Absolute Neutrophil Count 4.4 X10^3/uL (2.0-7.7); Basophil# 0.04 X10^3/uL; Basophil% 0.7 % (0-1); Eosinophil# 0.17 X10^3/uL; Hematocrit 24.2 % (40-54); Hemoglobin 8.1 g/dL (13.0-16.5); Lymphocyte # 0.44 X10^3/ul (4.0); Lymphocyte % 7.7 % (19-41); Mean Corp Hgb Conc 33.5 g/dL (32-36); Mean Corpuscular Volume 80.7 fL (80-94); Mean Platelet Vol. 10.7 fl (6.2-12.0); Monocyte% 10.5 % (0-10); NRBC Flagged by Analyzer 0 % (0-5); Neutrophil # 4.44 X10^3/uL (2.7-7.7); Neutrophil % 77.7 % (47-70); POSITIVE DIFFERENTIAL YES; Platelet Count 209 K/mm3 (150-450); RBC Distribution Width CV 12.8 % (11.6-14.6); RBC Distribution Width SD 37.2 fl (35.1-43.9); White Blood Count 5.7 K/mm3 (4.4-11.0)
[2019-06-25 15:07] LABS: Differential Indicated SCAN CRITERIA MET
[2019-06-25] MEDS: Aspirin 81 MG TAB.CHEW 324 MG PO (15:18)
[2019-06-25] MEDS: TICAGRELOR 90 MG TABLET 180 MG PO (15:18)
[2019-06-25 15:20] LABS: Anion Gap 6 (5-15); BUN 50 mg/dL (7-18); BUN/Creat Ratio 17.4 RATIO (10-20); Calcium,Total 8.3 mg/dL (8.5-10.1); Chloride 89 mmol/L (98-107); Creatinine, Serum 2.88 mg/dL (0.70-1.30); EST Glomerular Filtration Rate 23 mL/min (>60); Est Glom Filt Rate - Afr Amer 28 mL/min (>60); Estimated Creatinine Clearance 21.11 ml/min; Glucose 211 mg/dL (74-106); Potassium 4.1 mmol/L (3.5-5.1); Sodium Level 125 mmol/L (136-145)
[2019-06-25 15:33] LABS: BNP,B-Type NATRIURETIC PEPTIDE 474.8 pg/mL (0-100)
--- NOTE | 2019-06-25 16:01 | ED.VISSUMM ---
- ER Visit Summary Date of Service: 06/25/19 Chief Complaint: Cannot breathe History of Present Illness: The patient is a 74 M with increasing shortness of breath over the past 2 weeks. Worse today. Worse with exertion. No chest pain. No cough or sputum. He does have a history of CHF and COPD. He uses oxygen, 3 L at home. Previous smoker. He also has a history of hypertension and hyperlipidemia. Denies any history of coronary disease. Denies any history of PE, calf pain, travel, immobilization. He has been following up with pulmonology for this. Outpatient echo was ordered, but he has to wait over another week, and because his symptoms were worse, he was referred to the ED. Physical Examination: Afebrile and vital signs unremarkable. Alert and oriented. No acute distress. Heart regular. Lungs diminished in all walker. Abdomen soft but slightly bloated. Extremities show trace symmetric edema. Skin is normal in color. Test Results: EKG shows lateral ST segment depression which is new since 2015. Hemoglobin 8.1. Sodium 125 and creatinine 2.88. Troponin normal. BNP 474. Chest x-ray showed scarring and chronic changes. Emergency Department Course and Treatment: Patient treated with aspirin while awaiting results. He was monitored. His EKG changes were discussed with cardiology. They evaluated his EKG. No intervention today. They will follow him. Patient was discussed with the hospitalist and will be admitted for further care. Treatment Plan: As above Disposition: Admission Impression: 1. Dyspnea 2. Anemia 3. Hyponatremia This note was generated with [employer] dictation software. It may contain incorrect words, spelling, and punctuation that were not noted in review of the chart prior to signing ED Disposition - Plan for ED Patient: Referrals: Lucas Lozano DO [Primary Care Provider] -
--- NOTE | 2019-06-25 16:23 | HP.PCM_ITS ---
Problem List (1) Congestive heart failure Status: Acute (2) CKD (chronic kidney disease) stage 4, GFR 15-29 ml/min Status: Chronic (3) Anemia Status: Chronic (4) Chronic hypoxemic respiratory failure Status: Chronic (5) COPD (chronic obstructive pulmonary disease) Status: Chronic Qualifiers: History of Present Illness Date of Admission: 06/25/19 Chief Complaint: SOB The patient is a 74 year old M with pmhx of COPD pt of Dr. Bolanos, former smoker, chronic hypoxic respiratory failure on 3lpm O2 via NC, prostate cancer in remission, T1DM, CKDIII-IV who follows Dr. Reyes, who presents to the ER with c/o SOB. He is severely SOB with exertion. He is using his baseline 3lpm O2 and says he is fine at rest but he can barely walk without being very SOB. He has no CP, pressure, tightness, heaviness, no dizziness, LH, palpitations. He is up 12 pounds over the past week. His legs are swelling. His abdomen is swelling and distended. He states he cannot urinate. He was seen at the pulmonary office and was told he was full of fluid. He planned to have an outpatient echo. [] Past Medical History Past Medical History (Chronic Problems): Chronic Problems (Last Reviewed 06/11/19 @ 11:12 by SHIVAM Morrow) CKD (chronic kidney disease) stage 4, GFR 15-29 ml/min (Chronic) Anemia (Chronic) Kidney failure (Chronic) Pulmonary nodule (Chronic) Chronic hypoxemic respiratory failure (Chronic) COPD (chronic obstructive pulmonary disease) (Chronic) Medical History: Medical History (Last Reviewed 06/11/19 @ 11:12 by SHIVAM Morrow) Pulmonary nodule (Chronic) R91.1 Chronic hypoxemic respiratory failure (Chronic) J96.11 COPD (chronic obstructive pulmonary disease) (Chronic) J44.9 Constipation K59.00 Low back pain M54.5 Nonallopathic lesion of lumbar region M99.9 Nonallopathic lesion of rib cage M99.9 Nonallopathic lesion of sacral region M99.9 Nonallopathic lesion of thoracic region, not elsewhere classified M99.9 Otalgia H92.09 Otitis externa H60.90 Pain in lower limb M79.606 Serous otitis media H65.90 Thoracic back pain M54.6 Wax in ear H61.20 Allergic rhinitis J30.9 Anemia D64.9 Benign localized hyperplasia of prostate N40.0 COPD (chronic obstructive pulmonary disease) J44.9 Carpal tunnel syndrome G56.00 Chronic allergic rhinitis J30.9 Chronic otitis media H66.90 Diabetes mellitus E11.9 Former smoker Z87.891 GERD (gastroesophageal reflux disease) K21.9 Neuralgia M79.2 PVD (peripheral vascular disease) I73.9 Peripheral edema R60.9 Peripheral vascular insufficiency I73.9 Pulmonary nodule R91.1 Reactive airway disease J45.909 Renal disorder N28.9 Respiratory failure J96.90 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 [Ecotrin] 81 mg PO DAILY 01/07/16 brimonidine 0.2 % eye drops 1 drop LEFT EYE DAILY ml 11/15/17 latanoprost 0.005 % eye drops 1 drp OPHTHALMIC QHS ml 11/15/17 timolol 0.5 % eye drops 1 drp OPHTHALMIC BID 11/15/17 cholecalciferol (vitamin D3) 50,000 unit PO .COMPLEX 11/20/17 50,000 unit capsule fluticasone furoate 200 1 inh INHALATION DAILY #3 device 01/16/19 mcg-vilanterol 25 mcg/dose inhalation powder Albuterol Sulfate [Ventolin Hfa] 2 puff INHALATION Q6H PRN PRN 06/25/19 Bumetanide 1 mg PO BID 06/25/19 Enalapril Maleate 20 mg PO DAILY 06/25/19 Insulin Lispro [Humalog] 150 units SQ UD 06/25/19 Umeclidinium [place] Inhaler 1 inh INHALATION DAILY 06/25/19 [Incruse Ellipta] Surgical History: Surgical History (Last Reviewed 06/11/19 @ 11:12 by Mariaelena Schilling STRAIGHTENING PRESS OPERATOR HELPER-C) H/O inguinal hernia repair Z98.890, Z87.19 Left; Dr. Osuna H/O prostate biopsy Z98.890 Dr. Hernandez History of appendectomy Z98.890, Z90.49 History of carpal tunnel surgery of left wrist Z98.890 S/P bilateral foot surgery Z98.890 S/P rotator cuff repair Z98.890 right Surgical History: appendectomy, cataract, - - foot surgery, carpal tunnel Psychiatric History: No pertinent psych hx Lives: Spouse/ Significant Other Smoking Status: Former smoker Tobacco Use: Non-smoker Alcohol: None Drugs: None - *Family History Maternal Family History: Family History (Last Reviewed 06/11/19 @ 11:12 by SHIVAM Mororw) Sister Diabetes Father Heart disease History Items: No pertinent history Paternal Family History: Family History (Last Reviewed 06/11/19 @ 11:12 by SHIVAM Morrow) Sister Diabetes Father Heart disease History Items: Heart Disease Review of Systems Constitutional: Reports: Weight Change, Fatigue. Denies: Chills, Fever HEENT: Denies: Head Aches, Sinus Congestion, Sinus Drainage Cardiovascular: Reports: Edema. Denies: Chest Pain, Chest Pressure, Chest Tightness, Heaviness, Light Headedness, Palpitations, Syncope Respiratory: Reports: Shortness of Breath, Shortness of breath upon exertion. Denies: Cough, Shortness of breath at rest, Sputum production, Wheezing Gastrointestinal: Denies: Abdominal Pain, Diarrhea, Nausea, Vomiting Genitourinary: Reports: Retention. Denies: Dysuria, Urgency Musculoskeletal: Denies: Joint Pain, Joint Tenderness Skin: Denies: Rash, Wounds Neurological: Denies: Numbness, Tingling, Focal weakness Psychiatric: Denies: Anxiety, Depression, Homicidal Ideations, Suicidal Ideations Hematologic/ Lymphatic: Denies: Easy Bruising, Easy Bleeding VTE Information - Inpt Only VTE Present on Admission: No VTE Mechan Device Prophylaxis: None VTE Pharm Prophylaxis ordered?: Yes Patient Problems: Active and Suspected Problems (Last Reviewed 06/11/19 @ 11:12 by SHIVAM Morrow) Congestive heart failure (Acute) - Physical Exam General: Alert, Oriented x3, Cooperative HEENT: Atraumatic, PERRLA, EOMI, Normocephalic Neck: Supple, No JVD, Negative Carotid Bruits Lungs: Clear to auscultation, Normal air movement Cardiovascular: Regular rate, No murmurs Abdomen: Bowel Sounds Present, Soft, Non Tender Extremities: No edema, Capillary Refill Less than 3 Seconds Skin: No rashes, No breakdown Musculoskeletal: No Tenderness to Palpation of Joints or Extremities Neurological: Cranial nerves II-XII grossly intact Psych/Mental Status: Normal Affect, Appropriate Vital Signs Temp Pulse Resp BP Pulse Ox 98.1 F 75 15 161/80 H 100 06/25/19 16:20 06/25/19 16:20 06/25/19 16:20 06/25/19 16:20 06/25/19 16:20 Oxygen Flow Rate (L/min) 3 Oxygen Delivery Method Nasal Cannula Weight: 179 lb Body Mass Index (BMI) 27.2 Laboratory Tests Past 24 Hrs 06/25/19 06/25/19 06/25/19 14:57 14:57 14:57 WBC 5.7 RBC 3.00 L Hgb 8.1 L Hct 24.2 L MCV 80.7 MCH 27.0 MCHC 33.5 RDW Std Deviation 37.2 RDW Coeff of Janel 12.8 Plt Count 209 MPV 10.7 Immature Gran % (Auto) 0.400 Neut % (Auto) 77.7 H Lymph % (Auto) 7.7 L Kidder % (Auto) 10.5 H Eos % (Auto) 3.0 Baso % (Auto) 0.7 Absolute Neuts (auto) 4.4 Absolute Lymphs (auto) 0.44 L Nucleated RBC % 0 Sodium 125 L Potassium 4.1 Chloride 89 L Carbon Dioxide 30.0 Anion Gap 6 BUN 50 H Creatinine 2.88 H Estim Creat Clear Calc 21.11 Est GFR (MDRD) Af Amer 28 L Est GFR (MDRD) Non-Af 23 L BUN/Creatinine Ratio 17.4 Glucose 211 H Calcium 8.3 L Troponin I 0.043 B-Natriuretic Peptide 474.8 H Assessment/Plan All Active Problems (Last Reviewed 06/11/19 @ 11:12 by Mariaelena Schilling, STRAIGHTENING PRESS OPERATOR HELPER-C) Congestive heart failure (Acute) Shortness of breath (Acute) 1. Acute on chronic congestive heart failure, type unclear - start IV lasix. weight is up 12 pounds over last week. He cannot urinate - bladder scan. His abdomen is distended and he has 3+ pitting LE edema. BNP elevated. Rales on exam despite CXR being unimpressive. Measure I/O, LEONILA wrap, sodium and fluid restrict. Cycle enzymes, obtain Echo. Cardiology following. Check liver enzymes with abdominal distention, check abdominal US. 2. COPD with chronic hypoxic respiratory failure - no acute exacerbation. PRN aerosols. 3. Hypervolemic hyponatremia 2/2 above 4. URSULA - on CKD III-IV - follows Amy. Trend 5. Normocytic anemia - check iron/tibc/ferritin, check stool occult blood. 6. T1DM - has pump, add SSI. 7. Hx Prostate cancer - in remission DVT ppx: heparin DC planning: PTOT This patient was seen by Ren Cosby PA-C under the supervision of Dr. Murry.
[2019-06-25 16:56] LABS: Differential Comment SCANNED; Platelet Estimate ADEQUATE (ADEQ)
--- NOTE | 2019-06-25 16:56 | US_ITS ---
STUDY: RENAL ULTRASOUND - COMPLETE REASON FOR EXAM: Male, 74 years old. Acute renal failure TECHNIQUE: Ultrasound evaluation of the kidneys was performed with real-time and static foley-scale imaging. COMPARISON: Report of previous study of 09/28/2017. No previous images are available for comparison. FINDINGS: RIGHT KIDNEY: Normal location of the right kidney, which is normal in size. The right kidney measures 10.9 x 5.3 x 5.4 cm. There is poor corticomedullary echogenic differentiation suggestive of medical renal disease. The renal cortex measures 1.3 cm. There is no right renal mass or cyst. There are no right renal calculi. There is no right hydronephrosis. DISTAL RIGHT URETER: There is non-visualization of the distal right ureter. There is no demonstrated right ureterovesical junction calculus. There is a visualized right ureteral jet. LEFT KIDNEY: Normal location of the left kidney, with moderate renal hypertrophy. The left kidney measures 16.0 x 5.8 x 7.1 cm. There is poor cortical medullary echogenic differentiation suggestive of medical renal disease. The renal cortex measures 1.7 cm. There is a large cyst of the lower pole measuring 7.8 x 6.8 x 6.9 cm. There are no left renal calculi. There is no left hydronephrosis. DISTAL LEFT URETER: There is non-visualization of the distal left ureter. There is no demonstrated left ureterovesical junction calculus. There is no demonstrated left ureteral jet. BLADDER: The distended urinary bladder has a volume of 309 ml. . There is a normal wall thickness of the distended urinary bladder. Bladder wall thickness is 3 mm. There is no demonstrated mass within the urinary bladder. There is a small amount of echogenic material in the gravity dependent portion of the bladder. US/Kidney and Bladder IMPRESSION: 1. There is poor corticomedullary echogenic differentiation of the kidneys suggestive of medical renal disease. 2. The left kidney is hypertrophied. 3. There is a large cyst of the lower pole of the left kidney measuring 7.8 x 6.9 x 6.8 cm. 4. There is a small amount of echogenic material in the gravity dependent portion of the urinary bladder. Electronically Signed: Cooper Madrid MD at 18:14 EDT , Service support ,
--- NOTE | 2019-06-25 16:56 | EKG12_ITS ---
Test Reason : A FIB Blood Pressure : / mmHG Vent. Rate : 069 BPM Atrial Rate : 066 BPM P-R Int : 000 ms QRS Dur : 098 ms QT Int : 444 ms P-R-T Axes : 000 -43 220 degrees QTc Int : 475 ms Atrial fibrillation Left axis deviation Inferior infarct , age undetermined ST & T wave abnormality, consider lateral ischemia Abnormal ECG When compared with ECG of 26-JUN-2019 05:18, MANUAL COMPARISON REQUIRED, DATA IS UNCONFIRMED Confirmed by JACKELINE SPAULDING, KATALINA ([id number]), supervising editor news reel TWIN ESPINOZA ([id number]) on 07/01/2019 1:54:48 PM Referred By: AMBERLY Confirmed By:DALLIN VIVEROS MD
[2019-06-25 16:57] LABS: Red Cell Morphology NORM C+C NORMAL (NORM C&C)
[2019-06-25 17:29] LABS: Hemoglobin A1c 7.7 % (4.2-6.3); Vitamin B12 220 pg/mL (211-911)
[2019-06-25 17:36] LABS: Ferritin 73 ng/mL (26-388); Iron 33 ug/dL (65-175); Iron Binding Capacity,Total 310 ug/dL (250-450); Magnesium 1.7 mg/dL (1.6-2.6); PERCENT IRON SATURATION 10.6 % (15.0-55.0); Thyroid Stim Hormone (TSH) 1.01 uIU/mL (0.358-3.74)
[2019-06-25 18:11] LABS: Bedside Glucose 175 mg/dL (70-110)
[2019-06-25] MEDS: Insulin Basal Pump SC (18:46)
[2019-06-25] MEDS: Furosemide 40 MG/4 ML Vial IV (18:47)
[2019-06-25] MEDS: Ipratropium/Albuterol Sulfate 3 ML AMPUL.NEB INHALATION (19:10)
[2019-06-25 21:27] LABS: Urine Sodium 78 mmol/L (Not Establ.)
[2019-06-25] MEDS: Insulin Lispro 100 UNIT/ML INSULN.PEN SC (22:32)
[2019-06-25] MEDS: Enoxaparin 80 MG/0.8 ML Syringe SC (22:33)
[2019-06-25] MEDS: Timolol 0.5% 5ML OPTH.BTL 1 DRP EACH EYE (22:34)
[2019-06-25] MEDS: Latanoprost 0.005% 1 Bottle 1 DRP OPHTHALMIC (22:35)
[2019-06-25 22:36] LABS: Bedside Glucose 310 mg/dL (70-110)
[2019-06-26] VITALS (17 sets, daily range): BP systolic 140–172; BP diastolic 61–83; PULSE 60–92; RESP 12–20; TEMP 36.4–37.1; O2SAT 96–100
[2019-06-26] MEDS: Ipratropium/Albuterol Sulfate 3 ML AMPUL.NEB INHALATION ×4 (01:34→19:42)
--- NOTE | 2019-06-26 05:55 | EKG12_ITS ---
Test Reason : AM EKG Blood Pressure : / mmHG Vent. Rate : 059 BPM Atrial Rate : 079 BPM P-R Int : 000 ms QRS Dur : 106 ms QT Int : 464 ms P-R-T Axes : 042 -37 204 degrees QTc Int : 459 ms Sinus rhythm with 2nd degree A-V block (Mobitz I) Left axis deviation Left ventricular hypertrophy with repolarization abnormality Cannot rule out Inferior infarct , age undetermined Abnormal ECG When compared with ECG of 25-JUN-2019 17:16, MANUAL COMPARISON REQUIRED, DATA IS UNCONFIRMED Confirmed by JACKELINE SPAULDING, KATALINA ([id number]), editor house organ TWIN ESPINOZA ([id number]) on 07/01/2019 1:57:34 PM Referred By: AMBERLY Confirmed By:DALLIN VIVEROS MD
[2019-06-26 06:35] LABS: Absolute Lymphocyte Count 0.51 X10^3/uL (0.83-4.51); Absolute Neutrophil Count 4.4 X10^3/uL (2.0-7.7); Basophil# 0.04 X10^3/uL; Basophil% 0.7 % (0-1); Eosinophil# 0.21 X10^3/uL; Eosinophils% 3.5 % (0-5); Hematocrit 25.6 % (40-54); Hemoglobin 8.6 g/dL (13.0-16.5); Lymphocyte # 0.51 X10^3/ul (4.0); Lymphocyte % 8.4 % (19-41); Mean Corp Hgb Conc 33.6 g/dL (32-36); Mean Corpuscular Volume 80.5 fL (80-94); Mean Platelet Vol. 10.8 fl (6.2-12.0); Monocyte# 0.86 X10^3/uL; Monocyte% 14.1 % (0-10); NRBC Flagged by Analyzer 0 % (0-5); Neutrophil # 4.44 X10^3/uL (2.7-7.7); POSITIVE DIFFERENTIAL YES; Platelet Count 228 K/mm3 (150-450); RBC Distribution Width CV 12.7 % (11.6-14.6); RBC Distribution Width SD 36.8 fl (35.1-43.9); Red Blood Count 3.18 M/mm3 (4.6-6.2); White Blood Count 6.1 K/mm3 (4.4-11.0)
[2019-06-26 06:37] LABS: Differential Indicated SCAN CRITERIA MET
[2019-06-26 07:01] LABS: Bedside Glucose 91 mg/dL (70-110)
[2019-06-26 07:02] LABS: Anion Gap 6 (5-15); BUN 53 mg/dL (7-18); BUN/Creat Ratio 19.3 RATIO (10-20); Calcium,Total 8.6 mg/dL (8.5-10.1); Chloride 92 mmol/L (98-107); Cholesterol 206 mg/dL (200); Creatinine, Serum 2.74 mg/dL (0.70-1.30); EST Glomerular Filtration Rate 24 mL/min (>60); Est Glom Filt Rate - Afr Amer 29 mL/min (>60); Estimated Creatinine Clearance 22.19 ml/min; Glucose 95 mg/dL (74-106); High Density Lipoprotein 39 mg/dL; Potassium 3.8 mmol/L (3.5-5.1); Sodium Level 130 mmol/L (136-145); Triglycerides 134 mg/dL; Very Low Density Lipoprotein 27 mg/dL (5-40)
--- NOTE | 2019-06-26 09:38 | PCM.CONS.C ---
<Lei Wheeler - Last Filed: 06/26/19 10:17> Problem List (1) Congestive heart failure Status: Acute (2) Shortness of breath Status: Acute Reason for Consult Date of Consultation: 06/26/19 Reason for Consultation: Worsening shortness of breath on exertion History of Present Illness: The patient is a 74 year old M who presented to [facility] Emergency Department on 06/25/2019 due to worsening shortness of breath on exertion. He has a history of congestive heart failure, hypertension, hyperlipidemia, anemia, COPD with chronic 3 L of oxygen, diabetes mellitus type 1, peripheral vascular disease, chronic kidney disease, and prostate cancer. In the emergency department he underwent a chest x-ray that showed pulmonary fibrosis. His BNP was elevated at 474. His hemoglobin was noted to be 8.1. His initial troponin was negative. His EKG showed lateral ST depression which was new since 2014. He was loaded with Brilinta 180 mg and aspirin 324 mg and admitted for further evaluation. Cardiology was consulted for further recommendation. Past Medical History Allergies/Adverse Reactions: Allergies budesonide Allergy (Severe, Verified 06/25/19 14:16) Other - can't breathe amoxicillin [From Augmentin] Allergy (Unknown, Verified 06/25/19 14:16) Unknown clavulanic acid [From Augmentin] Allergy (Unknown, Verified 06/25/19 14:16) Unknown Sulfa (Sulfonamide Antibiotics) Allergy (Unknown, Verified 06/25/19 14:16) Unknown Home Medications: Ambulatory Orders Medication Instructions Recorded Aspirin E.C. [Ecotrin] 81 mg PO DAILY 01/07/16 brimonidine 0.2 % eye drops 1 drop LEFT EYE DAILY ml 11/15/17 latanoprost 0.005 % eye drops 1 drp OPHTHALMIC QHS ml 11/15/17 timolol 0.5 % eye drops 1 drp OPHTHALMIC BID 11/15/17 cholecalciferol (vitamin D3) 50,000 unit PO .COMPLEX 11/20/17 50,000 unit capsule fluticasone furoate 200 1 inh INHALATION DAILY #3 device 01/16/19 mcg-vilanterol 25 mcg/dose inhalation powder Albuterol Sulfate [Ventolin Hfa] 2 puff INHALATION Q6H PRN PRN 06/25/19 Bumetanide 1 mg PO BID 06/25/19 Enalapril Maleate 20 mg PO DAILY 06/25/19 Insulin Lispro [Humalog] 150 units SQ UD 06/25/19 Umeclidinium [place] Inhaler 1 inh INHALATION DAILY 06/25/19 [Incruse Ellipta] Past Medical History (Chronic Problems): Chronic Problems (Last Reviewed 06/11/19 @ 11:12 by SHIVAM Morrow) CKD (chronic kidney disease) stage 4, GFR 15-29 ml/min (Chronic) Anemia (Chronic) Acute kidney injury superimposed on chronic kidney disease (Chronic) Kidney failure (Chronic) Pulmonary nodule (Chronic) Chronic hypoxemic respiratory failure (Chronic) COPD (chronic obstructive pulmonary disease) (Chronic) Surgical History: appendectomy, cataract, - - foot surgery, carpal tunnel Psychiatric History: No pertinent psych hx - *Family History Maternal Family History: Family History (Last Reviewed 06/11/19 @ 11:12 by SHIVAM Morrow) Sister Diabetes Father Heart disease History Items: No pertinent history Paternal Family History: Family History (Last Reviewed 06/11/19 @ 11:12 by SHIVAM Morrow) Sister Diabetes Father Heart disease History Items: Heart Disease Lives: Spouse/ Significant Other Smoking Status: Former smoker Tobacco Use: Non-smoker Alcohol: None Drugs: None Review of Systems - Review of Systems General: Denies: Fever Cardiovascular: Reports: Shortness of Breath, Shortness of Breath with Exertion, Peripheral Edema. Denies: Chest Discomfort, Chest Discomfort at Rest, Chest Discomfort with Exertion, Chest Pressure, Chest Tightness, Chest Heaviness, Shortness of Breath at Rest, Orthopnea, PND, Palpitations, Lightheadedness, Dizziness, Near Syncope, Syncope Neurological: Denies: Dizziness Subjectve: Patient seen and evaluated. He acknowledges improved shortness of breath since admission, though predominantly he has been inactive. He denies any chest pain prior to admission or today. Objective: Vital Signs Temp Pulse Resp BP Pulse Ox 98.3 F 79 12 145/74 H 100 06/26/19 04:25 06/26/19 07:23 06/26/19 07:23 06/26/19 04:25 06/26/19 07:23 Oxygen Flow Rate (L/min) 3 Oxygen Delivery Method Nasal Cannula Weight: 175 lb 4.28 oz Body Mass Index (BMI) 27.3 Intake and Output for Last 24 Hours 06/24/19 06/25/19 06/26/19 23:59 23:59 23:59 Intake Total 60 / 60 Output Total 950 / 950 1125 / 1125 Balance -890 / -890 -1125 / -1125 General: Healthy Appearing, Awake, Alert, Oriented x 3, Cooperative, No Acute Distress HEENT: Atraumatic Neck: No JVD Lungs: Diminished Bob Bases Cardiovascular: Regular Rhythm, Normal S1, Normal S2, No Rubs, No Gallops Murmur Murmur: Grade 2/6, Soft, Early Systolic, LLSB Vascular: No Carotid Bruits, Normal Radial Pulses, Normal Dorsalis Pedal Pulse Abdomen: Soft Extremities: No Cyanosis, Normal Capillary Refill, Bilateral Edema +1 Psych/Mental Status: Appropriate, Normal Affect 06/25/19 14:57: WBC 5.7, RBC 3.00 L, Hgb 8.1 L, Hct 24.2 L, MCV 80.7, MCH 27.0, MCHC 33.5, Plt Count 209, MPV 10.7, Immature Gran % (Auto) 0.400, Neut % (Auto) 77.7 H, Lymph % (Auto) 7.7 L, [place] % (Auto) 10.5 H, Eos % (Auto) 3.0, Baso % (Auto) 0.7, Absolute Neuts (auto) 4.4, Nucleated RBC % 0 06/25/19 14:57: Sodium 125 L, Potassium 4.1, Chloride 89 L, Carbon Dioxide 30.0, Anion Gap 6, BUN 50 H, Creatinine 2.88 H, Est GFR (MDRD) Af Amer 28 L, Est GFR (MDRD) Non-Af 23 L, BUN/Creatinine Ratio 17.4, Glucose 211 H, Calcium 8.3 L, Troponin I 0.043 06/25/19 14:57: B-Natriuretic Peptide 474.8 H 06/25/19 14:57: Magnesium 1.7, Iron 33 L, TIBC 310, Iron Saturation 10.6 L, Ferritin 73 06/25/19 14:57: Hemoglobin A1c 7.7 H 06/25/19 17:53: Troponin I 0.054 H 06/25/19 20:53: Troponin I 0.060 H 06/26/19 06:05: WBC 6.1, RBC 3.18 L, Hgb 8.6 L, Hct 25.6 L, MCV 80.5, MCH 27.0, MCHC 33.6, Plt Count 228, MPV 10.8, Immature Gran % (Auto) 0.300, Neut % (Auto) 73.0 H, Lymph % (Auto) 8.4 L, [place] % (Auto) 14.1 H, Eos % (Auto) 3.5, Baso % (Auto) 0.7, Absolute Neuts (auto) 4.4, Nucleated RBC % 0 06/26/19 06:05: Sodium 130 L, Potassium 3.8, Chloride 92 L, Carbon Dioxide 32.0, Anion Gap 6, BUN 53 H, Creatinine 2.74 H, Est GFR (MDRD) Af Amer 29 L, Est GFR (MDRD) Non-Af 24 L, BUN/Creatinine Ratio 19.3, Glucose 95, Calcium 8.6, Triglycerides 134, Cholesterol 206 H, LDL Cholesterol 140 H, VLDL Cholesterol 27, HDL Cholesterol 39 L Rhythm: EKG: ECHO: 05/24/2016 Interpretation Summary Normal LV size. Estimate ejection fraction is 60%. No regional wall motion abnormality noted. Trivial mitral valve insufficiency. Stress Test: 04/30/2015 Interpretation Summary Normal resting LV systolic function. Nonstenotic valves. With stress, the LV size decreased and all segments augmented normally. The LVEF increased from % to XX%. Negative for ischemia at XX% of MPHR and at XX METS. Normal resting LV systolic function. Resting EF 55%Nonstenotic valves. With stress, the LV size decreased and all segments augmented normally. No wall motion abnormality noted.The LVEF increased from 55% to 65%. Negative for ischemia at 98% of MPHR and at 1 METS. Normal dobutamine stress echo. Cardiac Cath: PCI: CT Surgery: Holter monitor: EPS: PPM: CXR: Chest CT Scan: Assessment/Plan 1. Dyspnea on exertion This is most likely multifactorial. His hemoglobin has been stable, though low. His does acknowledge wheezing prior to admission which raises some suspicion for COPD exacerbation component. His chest x-ray revealed pulmonary fibrosis. His BNP was elevated. He will continue with IV Lasix diuresis. His PO diuretics may need to be adjusted further to maintain euvolemic state at prior discharge. His last echocardiogram on 05/24/2016 showed normal ejection fraction and normal wall motion. His cardiac enzymes have remained relatively flat which raises some suspicion for type II/supply demand mismatch etiology. He we will await the results for echocardiogram for further evaluation. If further cardiac work-up is needed, his hemoglobin and kidney function will need to be taken into account. Depending on his overall progress this may be better suited as an outpatient evaluation which may include a stress test rather than inpatient. He does have multiple risk factors for coronary artery disease such as hypertension, hyperlipidemia, diabetes mellitus type 1, and previous tobacco abuse with approximately 25 pack years. 2. Hypertension His blood pressure has been elevated since arrival. His enalapril has been placed on hold due to kidney function. He may benefit from blood pressure support medication such as amlodipine to better avoid nephrotoxicity medication such as LEONILA inhibitor or ARBs. He will begin amlodipine 2.5mg p.o. daily. 3. Hyperlipidemia His lipid panel from 06/26/2019 showed cholesterol: 206, HDL: 39, LDL: 140, and for this risk on 134. He is currently not on cholesterol-lowering medication. This to may need to be addressed given coronary artery disease component. This could include statin medication. This can be assessed as an outpatient. 4. Anemia This will be deferred to primary care team. He has undergone further laboratory evaluation for this which includes iron studies. This appears to be anemia of chronic disease as he denies any known sources of bleeding. 5. COPD He has been evaluated by Dr. Bolanos with pulmonology for this previously. This too will be deferred to primary care team. He will continue with current oxygen therapy. 6. Diabetes type 1 This to will be managed by primary care team. His case was discussed further with Dr. Quick. Final disposition and formal echocardiogram results are currently pending his review. Thank you for allowing us to participate in the patients plan of care, if you have any questions please do not hesitate to call. This note was generated using a voice recognition system and there may be incorrect words, spelling or punctuation that were not noted when reviewing the office note prior to saving. <Nando Quick - Last Filed: 06/26/19 14:54> Reason for Consult History of Present Illness: The patient is a 74 year old M [] Past Medical History - *Family History Maternal Family History: Family History (Last Reviewed 06/11/19 @ 11:12 by SHIVAM Morrow) Sister Diabetes Father Heart disease Paternal Family History: Family History (Last Reviewed 06/11/19 @ 11:12 by SHIVAM Morrow) Sister Diabetes Father Heart disease Objective: Vital Signs Temp Pulse Resp BP Pulse Ox 98.4 F 92 16 140/81 H 99 06/26/19 13:53 06/26/19 13:53 06/26/19 13:53 06/26/19 13:53 06/26/19 13:53 Oxygen Flow Rate (L/min) 3 Oxygen Delivery Method Nasal Cannula Weight: 175 lb 4.28 oz Body Mass Index (BMI) 27.3 Intake and Output for Last 24 Hours 06/24/19 06/25/19 06/26/19 23:59 23:59 23:59 Intake Total 60 / 60 240 / 240 Output Total 950 / 950 1925 / 1925 Balance -890 / -890 -1685 / -1685 06/25/19 14:57: WBC 5.7, RBC 3.00 L, Hgb 8.1 L, Hct 24.2 L, MCV 80.7, MCH 27.0, MCHC 33.5, Plt Count 209, MPV 10.7, Immature Gran % (Auto) 0.400, Neut % (Auto) 77.7 H, Lymph % (Auto) 7.7 L, [place] % (Auto) 10.5 H, Eos % (Auto) 3.0, Baso % (Auto) 0.7, Absolute Neuts (auto) 4.4, Nucleated RBC % 0 06/25/19 14:57: Sodium 125 L, Potassium 4.1, Chloride 89 L, Carbon Dioxide 30.0, Anion Gap 6, BUN 50 H, Creatinine 2.88 H, Est GFR (MDRD) Af Amer 28 L, Est GFR (MDRD) Non-Af 23 L, BUN/Creatinine Ratio 17.4, Glucose 211 H, Calcium 8.3 L, Troponin I 0.043 06/25/19 14:57: B-Natriuretic Peptide 474.8 H 06/25/19 14:57: Magnesium 1.7, Iron 33 L, TIBC 310, Iron Saturation 10.6 L, Ferritin 73 06/25/19 14:57: Hemoglobin A1c 7.7 H 06/25/19 17:53: Troponin I 0.054 H 06/25/19 20:53: Troponin I 0.060 H 06/26/19 06:05: WBC 6.1, RBC 3.18 L, Hgb 8.6 L, Hct 25.6 L, MCV 80.5, MCH 27.0, MCHC 33.6, Plt Count 228, MPV 10.8, Immature Gran % (Auto) 0.300, Neut % (Auto) 73.0 H, Lymph % (Auto) 8.4 L, [place] % (Auto) 14.1 H, Eos % (Auto) 3.5, Baso % (Auto) 0.7, Absolute Neuts (auto) 4.4, Nucleated RBC % 0 06/26/19 06:05: Sodium 130 L, Potassium 3.8, Chloride 92 L, Carbon Dioxide 32.0, Anion Gap 6, BUN 53 H, Creatinine 2.74 H, Est GFR (MDRD) Af Amer 29 L, Est GFR (MDRD) Non-Af 24 L, BUN/Creatinine Ratio 19.3, Glucose 95, Calcium 8.6, Triglycerides 134, Cholesterol 206 H, LDL Cholesterol 140 H, VLDL Cholesterol 27, HDL Cholesterol 39 L 06/26/19 06:05: TIBC 281, Ferritin 77 Rhythm: EKG: ECHO: Stress Test: Cardiac Cath: PCI: CT Surgery: Holter monitor: EPS: PPM: CXR: Chest CT Scan: Assessment/Plan Patient was seen and evaluated and discussed with Lei Wheeler APN. Patient's shortness of breath appears to be multifactorial with contribution from anemia, COPD and some degree of volume overload that could be from his renal issues. If not checked previously I would suggest checking patient's urine protein creatinine ratio. His echo showed no evidence of LV dysfunction or RV dysfunction. His pulmonary pressures appeared to be normal. He does have mild aortic stenosis. He responded well to the treatment he has received in the hospital. I would suggest getting his results from outpatient testing as far as his hemoglobin is concerned to see if his hemoglobin drop is acute. From a cardiac standpoint he can get a stress test as an outpatient. While his EKG changes could represent myocardial ischemia, they could very well be a result of underlying coronary artery disease and anemia and hypoxemia. Thank you very much for the referral. We will continue to follow this patient along with you.
[2019-06-26] MEDS: Furosemide 40 MG/4 ML Vial IV ×2 (10:09→17:27)
[2019-06-26] MEDS: Timolol 0.5% 5ML OPTH.BTL 1 DRP EACH EYE ×2 (10:10→21:56)
[2019-06-26] MEDS: Aspirin E.C. 81 MG Tablet PO (10:10)
[2019-06-26] MEDS: BRIMONIDINE 0.2% 5ML BOTTLE 1 DRP LEFT EYE (10:14)
--- NOTE | 2019-06-26 10:43 | PCM.PN.BLA ---
Progress Note Patient's telemetry shows what appears to be second degree type 1, [place]ke[place]. He is not on rate limiting medications. This will be monitored.
[2019-06-26 10:55] LABS: Bedside Glucose 109 mg/dL (70-110)
--- NOTE | 2019-06-26 11:35 | PCM.CONS.R ---
Problem List (1) Acute kidney injury superimposed on chronic kidney disease Status: Chronic (2) Hyponatremia Status: Acute Consultation - Renal PCP/ Referring MD: Requesting physician: [] Primary care physician: Lucas Lozano DO - History of Present Illness History of Present Illness: The patient is a 74 year old M with past medical history of chronic kidney disease stage IV with baseline creatinine around 2.2 -2.4 mg a deciliter, COPD, diabetes type 1, prostate cancer, hypertension. Patient presented to [facility] emergency room yesterday with increased shortness of breath, increased leg edema, increased abdominal girth, weight gain of 15 pounds. Bumex was added by his supervisor dry paste Dr. Reyes 3 weeks ago without any benefit as per the patient even with higher dose of Bumex . Patient was admitted to the hospital with CHF decompensation. Patient was started on Lasix 40 mg twice a day. Patient said he is making more urine now his weight decreased 1 kg since admission. Renal team was consulted for acute kidney injury and chronic kidney disease. Creatinine at presentation was 2.88 mg/dL. Creatinine is slightly better today at 2.74 mg deciliter. Home enalapril was stopped. Patient said his breathing is better but still shortness of breath. Patient said his edema is improving. Denies any NSAID use. No urinary obstructive symptoms. No IV contrast exposure. No dysuria. No hematuria Review of systems: 12 system review is negative except for mentioned HPI [] - Allergies Allergies: Allergies budesonide Allergy (Severe, Verified 06/25/19 14:16) Other - can't breathe amoxicillin [From Augmentin] Allergy (Unknown, Verified 06/25/19 14:16) Unknown clavulanic acid [From Augmentin] Allergy (Unknown, Verified 06/25/19 14:16) Unknown Sulfa (Sulfonamide Antibiotics) Allergy (Unknown, Verified 06/25/19 14:16) Unknown - Current Medications Current Medications: Current Medications Acetaminophen (Tylenol) 650 mg PO Q6H PRN PRN PRN Reason: Non-cardiac pain (mod-severe) Hydrocodone Bitart/Acetaminophen ([place] 5mg-325mg) 1 - 2 tablet PO Q6H PRN PRN PRN Reason: MOD-SEVERE PAIN (4-10/10) Al Hydroxide/Mg Hydroxide (Mylanta Ii) 15 - 30 ml PO Q4H PRN PRN PRN Reason: INDIGESTION Albuterol Sulfate (Ventolin Aerosols) 2.5 mg INHALATION Q2H PRN PRN PRN Reason: dyspnea, wheezing Albuterol/Ipratropium (Duoneb) 3 ml INHALATION Q6HWA.RT [facility] Last Admin: 06/26/19 07:23 Dose: 3 ml Documented by: Amlodipine Besylate (Norvasc) 2.5 mg PO DAILY [facility] Admin: 06/26/19 10:10 Dose: 81 mg Documented by: Brimonidine Tartrate (Brimonidine 0.2% 5ml Bottle) 1 drop LEFT EYE DAILY [facility] Last Admin: 06/26/19 10:14 Dose: 1 drop Documented by: Dextrose (D50w Syringe) 0 gm IV X1 PRN; Protocol PRN Reason: Hypoglycemia Enoxaparin Sodium (Lovenox) 80 mg SC QHS [facility] Last Admin: 06/25/19 22:33 Dose: 80 mg Documented by: Furosemide (Lasix) 40 mg IV BID@1000,1800 [facility] Last Admin: 06/26/19 10:09 Dose: 40 mg Documented by: Glucagon () 1 mg IM .X1 PRN PRN Reason: Hypoglycemia Hydralazine HCl (Apresoline Iv) 10 mg IV Q4H PRN PRN PRN Reason: SBP > 160 Insulin Aspart (Pump, Basal) 0 unit SC UD [facility] Last Admin: 06/25/19 18:46 Dose: 1 u Documented by: Insulin Human Lispro (Humalog Kwikpen (Bkc)) 0 unit SC [facility]; Protocol Last Admin: 06/26/19 06:46 Dose: Not Given Documented by: Latanoprost (Xalatan Opthalmic) 1 drop OPHTHALMIC QHS [facility] Last Admin: 06/25/19 22:35 Dose: 1 drop Documented by: Magnesium Hydroxide (Milk Of Magnesia) 30 ml PO DAILY PRN PRN Reason: Constipation Melatonin (Melatonin) 3 mg PO QHS PRN PRN PRN Reason: INSOMNIA Morphine Sulfate () 1 - 2 mg IV Q4H PRN PRN PRN Reason: PAIN Nitroglycerin (Nitrostat) 0.4 mg SUBLINGUAL Q5M PRN PRN Reason: CARDIAC/CHEST PAIN Ondansetron HCl (Zofran) 4 mg IV Q8H PRN PRN PRN Reason: NAUSEA/VOMITING Timolol Maleate (Timoptic) 1 drop EACH EYE BID [facility] Last Admin: 06/26/19 10:10 Dose: 1 drop Documented by: - Past Medical History Past Medical History (Chronic Problems): Chronic Problems (Last Reviewed 06/11/19 @ 11:12 by Mariaelena Schilling NP-Buddy) CKD (chronic kidney disease) stage 4, GFR 15-29 ml/min (Chronic) Anemia (Chronic) Acute kidney injury superimposed on chronic kidney disease (Chronic) Kidney failure (Chronic) Pulmonary nodule (Chronic) Chronic hypoxemic respiratory failure (Chronic) COPD (chronic obstructive pulmonary disease) (Chronic) - Past Surgical History Surgical History: appendectomy, cataract, - - foot surgery, carpal tunnel - Social History Smoking Status: Former smoker Alcohol: None Drugs: None - Family History Maternal Family History: Family History (Last Reviewed 06/11/19 @ 11:12 by SHIVAM Morrow) Sister Diabetes Father Heart disease History Items: No pertinent history Paternal Family History: Family History (Last Reviewed 06/11/19 @ 11:12 by SHIVAM Morrow) Sister Diabetes Father Heart disease History Items: Heart Disease Patient Problems: Active and Suspected Problems (Last Reviewed 06/11/19 @ 11:12 by Mariaelena Schilling NP-Buddy) Congestive heart failure (Acute) Hyponatremia (Acute) - Physical Exam General: Alert, Oriented x3 HEENT: Atraumatic Oral: Moist Mucosa Neck: Supple, No JVD Lungs: Clear to auscultation, No rhonchi, No wheeze, No rales, - Cardiovascular: Regular rate, Regular Rhythm, Normal S1, Normal S2 Abdomen: Bowel Sounds Present, Soft, Non Tender Extremities: No clubbing, No cyanosis, Edema - +1 edema of lower extremities Musculoskeletal: No Tenderness to Palpation of Joints or Extremities Lymphatic: No Cervical, Supraclavicular, or Inguinal Adenopathy Neurological: Cranial nerves II-XII grossly intact, Neuro grossly intact Psych/Mental Status: Appropriate Vital Signs Temp Pulse Resp BP Pulse Ox 97.6 F L 79 18 152/83 H 99 06/26/19 09:42 06/26/19 09:42 06/26/19 09:42 06/26/19 09:42 06/26/19 09:42 Oxygen Flow Rate (L/min) 3 Oxygen Delivery Method Nasal Cannula Weight: 79.5 kg Body Mass Index (BMI) 27.3 Intake and Output for Last 24 Hours 06/24/19 06/25/19 06/26/19 23:59 23:59 23:59 Intake Total 60 / 60 Output Total 950 / 950 1400 / 1400 Balance -890 / -890 -1400 / -1400 Laboratory Tests Past 24 Hrs 06/25/19 06/25/19 06/25/19 14:57 14:57 14:57 WBC 5.7 RBC 3.00 L Hgb 8.1 L Hct 24.2 L MCV 80.7 MCH 27.0 MCHC 33.5 RDW Std Deviation 37.2 RDW Coeff of Janel 12.8 Plt Count 209 MPV 10.7 Immature Gran % (Auto) 0.400 Neut % (Auto) 77.7 H Lymph % (Auto) 7.7 L Bent % (Auto) 10.5 H Eos % (Auto) 3.0 Baso % (Auto) 0.7 Absolute Neuts (auto) 4.4 Absolute Lymphs (auto) 0.44 L Nucleated RBC % 0 Differential Comment SCANNED Platelet Estimate ADEQUATE RBC Morphology NORM C+C Sodium 125 L Potassium 4.1 Chloride 89 L Carbon Dioxide 30.0 Anion Gap 6 BUN 50 H Creatinine 2.88 H Estim Creat Clear Calc 21.11 Est GFR (MDRD) Af Amer 28 L Est GFR (MDRD) Non-Af 23 L BUN/Creatinine Ratio 17.4 Glucose 211 H Hemoglobin A1c Calcium 8.3 L Magnesium Iron TIBC Iron Saturation Ferritin Troponin I 0.043 B-Natriuretic Peptide 474.8 H Triglycerides Cholesterol LDL Cholesterol VLDL Cholesterol HDL Cholesterol Vitamin B12 Folate TSH Ur Random Sodium Urine Creatinine 06/25/19 06/25/19 06/25/19 14:57 14:57 14:57 WBC RBC Hgb Hct MCV MCH MCHC RDW Std Deviation RDW Coeff of Janel Plt Count MPV Immature Gran % (Auto) Neut % (Auto) Lymph % (Auto) Bent % (Auto) Eos % (Auto) Baso % (Auto) Absolute Neuts (auto) Absolute Lymphs (auto) Nucleated RBC % Differential Comment Platelet Estimate RBC Morphology Sodium Potassium Chloride Carbon Dioxide Anion Gap BUN Creatinine Estim Creat Clear Calc Est GFR (MDRD) Af Amer Est GFR (MDRD) Non-Af BUN/Creatinine Ratio Glucose Hemoglobin A1c 7.7 H Calcium Magnesium 1.7 Iron 33 L TIBC 310 Iron Saturation 10.6 L Ferritin 73 Troponin I B-Natriuretic Peptide Triglycerides Cholesterol LDL Cholesterol VLDL Cholesterol HDL Cholesterol Vitamin B12 220 Folate 19.00 TSH 1.01 Ur Random Sodium Urine Creatinine 06/25/19 06/25/19 06/25/19 17:53 20:53 21:00 WBC RBC Hgb Hct MCV MCH MCHC RDW Std Deviation RDW Coeff of Janel Plt Count MPV Immature Gran % (Auto) Neut % (Auto) Lymph % (Auto) Bent % (Auto) Eos % (Auto) Baso % (Auto) Absolute Neuts (auto) Absolute Lymphs (auto) Nucleated RBC % Differential Comment Platelet Estimate RBC Morphology Sodium Potassium Chloride Carbon Dioxide Anion Gap BUN Creatinine Estim Creat Clear Calc Est GFR (MDRD) Af Amer Est GFR (MDRD) Non-Af BUN/Creatinine Ratio Glucose Hemoglobin A1c Calcium Magnesium Iron TIBC Iron Saturation Ferritin Troponin I 0.054 H 0.060 H B-Natriuretic Peptide Triglycerides Cholesterol LDL Cholesterol VLDL Cholesterol HDL Cholesterol Vitamin B12 Folate TSH Ur Random Sodium Urine Creatinine 22.30 06/25/19 06/26/19 06/26/19 21:00 06:05 06:05 WBC 6.1 RBC 3.18 L Hgb 8.6 L Hct 25.6 L MCV 80.5 MCH 27.0 MCHC 33.6 RDW Std Deviation 36.8 RDW Coeff of Janel 12.7 Plt Count 228 MPV 10.8 Immature Gran % (Auto) 0.300 Neut % (Auto) 73.0 H Lymph % (Auto) 8.4 L Bent % (Auto) 14.1 H Eos % (Auto) 3.5 Baso % (Auto) 0.7 Absolute Neuts (auto) 4.4 Absolute Lymphs (auto) 0.51 L Nucleated RBC % 0 Differential Comment Platelet Estimate RBC Morphology Sodium 130 L Potassium 3.8 Chloride 92 L Carbon Dioxide 32.0 Anion Gap 6 BUN 53 H Creatinine 2.74 H Estim Creat Clear Calc 22.19 Est GFR (MDRD) Af Amer 29 L Est GFR (MDRD) Non-Af 24 L BUN/Creatinine Ratio 19.3 Glucose 95 Hemoglobin A1c Calcium 8.6 Magnesium Iron TIBC Iron Saturation Ferritin Troponin I B-Natriuretic Peptide Triglycerides 134 Cholesterol 206 H LDL Cholesterol 140 H VLDL Cholesterol 27 HDL Cholesterol 39 L Vitamin B12 Folate TSH Ur Random Sodium 78 Urine Creatinine POC Glucose 06/26/19 06/26/19 06/25/19 10:28 06:43 22:28 POC Glucose 109 91 310 H 06/25/19 17:12 POC Glucose 175 H Assessment/Plan All Active Problems (Last Reviewed 06/11/19 @ 11:12 by Mariaelena Schilling, LEDA-C) Congestive heart failure (Acute) Hyponatremia (Acute) Shortness of breath (Acute) 1-acute kidney injury on chronic kidney disease. Baseline creatinine seems around 2.2-2.4 mg deciliter. Patient presented with a creatinine 2.88 mg deciliter. Worsening kidney function is related to CRS. Kidney function slightly better 2.7 mg deciliter. I agree with the current dose of Lasix 40 mg IV twice a day. Please avoid LEONILA inhibitor or ARB. Avoid IV contrast. Avoid NSAIDs. I will continue to monitor kidney function while on diuretics. No need for replacement therapy. 2-hyponatremia with fluid overload. Sodium improved from 125 at presentation to 130 today with diuresis. Okay with the current dose of Lasix. Keep output more than input. 3-hypertension: Blood pressure is elevated. Please continue holding enalapril. Avoid LEONILA inhibitor or ARB. I will start hydralazine 50 mg 3 times daily. 4-anemia: From most probably chronic kidney disease. Check iron profile. If patient has adequate iron profile, he needs LAUREL Thank you for the consult. Renal team will continue to follow. Please call if any question at [phone] Plan of care was discussed with the nurse practitioner Torie Sewell MD
--- NOTE | 2019-06-26 12:06 | PCM.PN.BLA ---
Progress Note It appears that nephrology intends to begin hydralazine 50 mg 3 times daily. Thus, he will not begin amlodipine. This can be added if indicated in the future and based on titration of hydralazine.
[2019-06-26 12:52] LABS: Ferritin 77 ng/mL (26-388); Iron Binding Capacity,Total 281 ug/dL (250-450)
--- NOTE | 2019-06-26 13:05 | PN_ITS ---
<Torie Hastings - Last Filed: 06/26/19 13:31> Patient Problems: Active and Suspected Problems (Last Reviewed 06/11/19 @ 11:12 by Mariaelena Schilling NP-C) Congestive heart failure (Acute) Hyponatremia (Acute) Subjective: Patient seen and examined. Reports breathing is somewhat improved, lower extremity swelling improved as well. He does report dyspnea with minimal exertion and conversation. Denies chest pain. Denies other current symptoms. - Physical Exam General: Alert, Oriented x3, Cooperative HEENT: Atraumatic, PERRLA, EOMI, Normocephalic Neck: Supple, No JVD, Negative Carotid Bruits Lungs: Clear to auscultation, Diminished Cardiovascular: Regular rate, Regular Rhythm, Normal S1, Normal S2, No murmurs Abdomen: Bowel Sounds Present, Soft, Non Tender, Non-Distended Extremities: No clubbing, No cyanosis, Capillary Refill Less than 3 Seconds, Edema - Bilateral lower extremities, Fabrice wraps in place Skin: No rashes, No breakdown Musculoskeletal: No Tenderness to Palpation of Joints or Extremities Neurological: Cranial nerves II-XII grossly intact, Neuro grossly intact Psych/Mental Status: Normal Affect, Appropriate Vital Signs Temp Pulse Resp BP Pulse Ox 97.6 F L 79 18 152/83 H 99 06/26/19 09:42 06/26/19 09:42 06/26/19 09:42 06/26/19 09:42 06/26/19 09:42 Oxygen Flow Rate (L/min) 3 Oxygen Delivery Method Nasal Cannula Weight: 175 lb 4.28 oz Body Mass Index (BMI) 27.3 Intake and Output for Last 24 Hours 06/24/19 06/25/19 06/26/19 23:59 23:59 23:59 Intake Total 60 / 60 240 / 240 Output Total 950 / 950 1925 / 1925 Balance -890 / -890 -1685 / -1685 Laboratory Tests Past 24 Hrs 06/25/19 06/25/19 06/25/19 14:57 14:57 14:57 WBC 5.7 RBC 3.00 L Hgb 8.1 L Hct 24.2 L MCV 80.7 MCH 27.0 MCHC 33.5 RDW Std Deviation 37.2 RDW Coeff of Janel 12.8 Plt Count 209 MPV 10.7 Immature Gran % (Auto) 0.400 Neut % (Auto) 77.7 H Lymph % (Auto) 7.7 L [place] % (Auto) 10.5 H Eos % (Auto) 3.0 Baso % (Auto) 0.7 Absolute Neuts (auto) 4.4 Absolute Lymphs (auto) 0.44 L Nucleated RBC % 0 Differential Comment SCANNED Platelet Estimate ADEQUATE RBC Morphology NORM C+C Sodium 125 L Potassium 4.1 Chloride 89 L Carbon Dioxide 30.0 Anion Gap 6 BUN 50 H Creatinine 2.88 H Estim Creat Clear Calc 21.11 Est GFR (MDRD) Af Amer 28 L Est GFR (MDRD) Non-Af 23 L BUN/Creatinine Ratio 17.4 Glucose 211 H Hemoglobin A1c Calcium 8.3 L Magnesium Iron TIBC Iron Saturation Ferritin Troponin I 0.043 B-Natriuretic Peptide 474.8 H Triglycerides Cholesterol LDL Cholesterol VLDL Cholesterol HDL Cholesterol Vitamin B12 Folate TSH Ur Random Sodium Urine Creatinine 06/25/19 06/25/19 06/25/19 14:57 14:57 14:57 WBC RBC Hgb Hct MCV MCH MCHC RDW Std Deviation RDW Coeff of Janel Plt Count MPV Immature Gran % (Auto) Neut % (Auto) Lymph % (Auto) [place] % (Auto) Eos % (Auto) Baso % (Auto) Absolute Neuts (auto) Absolute Lymphs (auto) Nucleated RBC % Differential Comment Platelet Estimate RBC Morphology Sodium Potassium Chloride Carbon Dioxide Anion Gap BUN Creatinine Estim Creat Clear Calc Est GFR (MDRD) Af Amer Est GFR (MDRD) Non-Af BUN/Creatinine Ratio Glucose Hemoglobin A1c 7.7 H Calcium Magnesium 1.7 Iron 33 L TIBC 310 Iron Saturation 10.6 L Ferritin 73 Troponin I B-Natriuretic Peptide Triglycerides Cholesterol LDL Cholesterol VLDL Cholesterol HDL Cholesterol Vitamin B12 220 Folate 19.00 TSH 1.01 Ur Random Sodium Urine Creatinine 06/25/19 06/25/19 06/25/19 17:53 20:53 21:00 WBC RBC Hgb Hct MCV MCH MCHC RDW Std Deviation RDW Coeff of Janel Plt Count MPV Immature Gran % (Auto) Neut % (Auto) Lymph % (Auto) [place] % (Auto) Eos % (Auto) Baso % (Auto) Absolute Neuts (auto) Absolute Lymphs (auto) Nucleated RBC % Differential Comment Platelet Estimate RBC Morphology Sodium Potassium Chloride Carbon Dioxide Anion Gap BUN Creatinine Estim Creat Clear Calc Est GFR (MDRD) Af Amer Est GFR (MDRD) Non-Af BUN/Creatinine Ratio Glucose Hemoglobin A1c Calcium Magnesium Iron TIBC Iron Saturation Ferritin Troponin I 0.054 H 0.060 H B-Natriuretic Peptide Triglycerides Cholesterol LDL Cholesterol VLDL Cholesterol HDL Cholesterol Vitamin B12 Folate TSH Ur Random Sodium Urine Creatinine 22.30 06/25/19 06/26/19 06/26/19 21:00 06:05 06:05 WBC 6.1 RBC 3.18 L Hgb 8.6 L Hct 25.6 L MCV 80.5 MCH 27.0 MCHC 33.6 RDW Std Deviation 36.8 RDW Coeff of Janel 12.7 Plt Count 228 MPV 10.8 Immature Gran % (Auto) 0.300 Neut % (Auto) 73.0 H Lymph % (Auto) 8.4 L [place] % (Auto) 14.1 H Eos % (Auto) 3.5 Baso % (Auto) 0.7 Absolute Neuts (auto) 4.4 Absolute Lymphs (auto) 0.51 L Nucleated RBC % 0 Differential Comment Platelet Estimate RBC Morphology Sodium 130 L Potassium 3.8 Chloride 92 L Carbon Dioxide 32.0 Anion Gap 6 BUN 53 H Creatinine 2.74 H Estim Creat Clear Calc 22.19 Est GFR (MDRD) Af Amer 29 L Est GFR (MDRD) Non-Af 24 L BUN/Creatinine Ratio 19.3 Glucose 95 Hemoglobin A1c Calcium 8.6 Magnesium Iron TIBC Iron Saturation Ferritin Troponin I B-Natriuretic Peptide Triglycerides 134 Cholesterol 206 H LDL Cholesterol 140 H VLDL Cholesterol 27 HDL Cholesterol 39 L Vitamin B12 Folate TSH Ur Random Sodium 78 Urine Creatinine 06/26/19 06:05 WBC RBC Hgb Hct MCV MCH MCHC RDW Std Deviation RDW Coeff of Janel Plt Count MPV Immature Gran % (Auto) Neut % (Auto) Lymph % (Auto) [place] % (Auto) Eos % (Auto) Baso % (Auto) Absolute Neuts (auto) Absolute Lymphs (auto) Nucleated RBC % Differential Comment Platelet Estimate RBC Morphology Sodium Potassium Chloride Carbon Dioxide Anion Gap BUN Creatinine Estim Creat Clear Calc Est GFR (MDRD) Af Amer Est GFR (MDRD) Non-Af BUN/Creatinine Ratio Glucose Hemoglobin A1c Calcium Magnesium Iron TIBC 281 Iron Saturation Ferritin 77 Troponin I B-Natriuretic Peptide Triglycerides Cholesterol LDL Cholesterol VLDL Cholesterol HDL Cholesterol Vitamin B12 Folate TSH Ur Random Sodium Urine Creatinine POC Glucose 06/26/19 06/26/19 06/25/19 10:28 06:43 22:28 POC Glucose 109 91 310 H 06/25/19 17:12 POC Glucose 175 H Medical Necessity - Tobacco Use Smoking Status: Former smoker Tobacco Use: Non-smoker Assessment/Plan All Active Problems (Last Reviewed 06/11/19 @ 11:12 by Mariaelena Schilling NP-C) Congestive heart failure (Acute) Hyponatremia (Acute) Shortness of breath (Acute) 1. Acute diastolic CHF-BNP 474. Chest x-ray with findings suggestive of scarring at the lung bases and mild scarring in the upper lobes. Echocardiogram demonstrates an EF of 55%, coronary artery systolic pressure 35 to 40 mmHg, mild aortic stenosis. Continue IV Lasix. Strict I&O. Daily weight. 2. EKG changes/second-degree type I, Wenckebach-not on any rate limiting medica tions. Monitor telemetry. 3. Abnormal troponin-suspect demand ischemia as a result of #1. Cardiology following. Plan for further outpatient work-up with possible stress test. 4. Hypervolemic hyponatremia- Improving, trend BMP. 5. Acute anemia on Anemia of chronic disease-appears reduced compared to baseline. Iron panel shows iron deficiency. IV iron ordered. Stool for occult blood pending. Trend CBC. 6. Acute kidney injury on chronic kidney disease stage III-nephrology following. Baseline creatinine approximately 2.4. Hold FABRICE inhibitor regimen. Continue IV Lasix. Creatinine mildly improved today. Trend BMP. Renal ultrasound shows poor corticomedullary echogenic differentiation of the kidney suggestive of medical renal disease. Left kidney is hypertrophied. Large cyst of the lower pole of the left kidney measuring 7.8 x 6.9 x 6.8 cm. Small amount of echogenic material in the gravity dependent portion of the urinary bladder. Recommend follow-up with urology as outpatient. 7. Hypertension-blood pressure above goal. Home FABRICE inhibitor on hold secondary to URSULA. PRN hydralazine for systolic blood pressure greater than 160. Cardiology recommending initiating amlodipine pending response to hydralazine. 8. Hyperlipidemia-lipid panel elevated. Cardiology to assess as outpatient. 9. Type 1 diabetes mellitus-on insulin pump. Accu-Cheks before meals at bedtime with sliding scale insulin. 10. Chronic hypoxic respiratory failure with chronic COPD-albuterol and DuoNeb aerosols. No acute exacerbation. Follows with Dr. Bolanos. Continue supplement oxygen to maintain O2 sat above 90%. 11. History of prostate cancer-in remission. 12. History of tobacco use-approximately 45-kmpn-fyol smoking history. DVT prophylaxis- Lovenox sc This patient was seen by SHIVAM Dey under the supervision of Dr. Avila. <Arnoldo Avila - Last Filed: 06/26/19 14:10> Subjective: Feeling better. - Physical Exam General: Alert, Cooperative HEENT: Atraumatic, Normocephalic Neck: No Nodes, Thyroid Normal Size and Texture Lungs: Clear to auscultation, Normal air movement, No rhonchi, No wheeze, No rales, Diminished Cardiovascular: Regular rate, Regular Rhythm, Normal S1, Normal S2, No murmurs Abdomen: Bowel Sounds Present, Soft, Non Tender, Non-Distended, No Hepato- splenomegaly Extremities: No cyanosis, No Calf Tenderness, Edema Skin: No rashes, No breakdown Psych/Mental Status: Normal Affect, Appropriate Vital Signs Temp Pulse Resp BP Pulse Ox 36.9 C 92 16 140/81 H 99 06/26/19 13:53 06/26/19 13:53 06/26/19 13:53 06/26/19 13:53 06/26/19 13:53 Oxygen Flow Rate (L/min) 3 Oxygen Delivery Method Nasal Cannula Weight: 79.5 kg Body Mass Index (BMI) 27.3 Intake and Output for Last 24 Hours 06/24/19 06/25/19 06/26/19 23:59 23:59 23:59 Intake Total 60 / 60 240 / 240 Output Total 950 / 950 1925 / 1925 Balance -890 / -890 -1685 / -1685 Laboratory Tests Past 24 Hrs 06/25/19 06/25/19 06/25/19 14:57 14:57 14:57 WBC 5.7 RBC 3.00 L Hgb 8.1 L Hct 24.2 L MCV 80.7 MCH 27.0 MCHC 33.5 RDW Std Deviation 37.2 RDW Coeff of Janel 12.8 Plt Count 209 MPV 10.7 Immature Gran % (Auto) 0.400 Neut % (Auto) 77.7 H Lymph % (Auto) 7.7 L [place] % (Auto) 10.5 H Eos % (Auto) 3.0 Baso % (Auto) 0.7 Absolute Neuts (auto) 4.4 Absolute Lymphs (auto) 0.44 L Nucleated RBC % 0 Differential Comment SCANNED Platelet Estimate ADEQUATE RBC Morphology NORM C+C Sodium 125 L Potassium 4.1 Chloride 89 L Carbon Dioxide 30.0 Anion Gap 6 BUN 50 H Creatinine 2.88 H Estim Creat Clear Calc 21.11 Est GFR (MDRD) Af Amer 28 L Est GFR (MDRD) Non-Af 23 L BUN/Creatinine Ratio 17.4 Glucose 211 H Hemoglobin A1c Calcium 8.3 L Magnesium Iron TIBC Iron Saturation Ferritin Troponin I 0.043 B-Natriuretic Peptide 474.8 H Triglycerides Cholesterol LDL Cholesterol VLDL Cholesterol HDL Cholesterol Vitamin B12 Folate TSH Ur Random Sodium Urine Creatinine 06/25/19 06/25/19 06/25/19 14:57 14:57 14:57 WBC RBC Hgb Hct MCV MCH MCHC RDW Std Deviation RDW Coeff of Janel Plt Count MPV Immature Gran % (Auto) Neut % (Auto) Lymph % (Auto) [place] % (Auto) Eos % (Auto) Baso % (Auto) Absolute Neuts (auto) Absolute Lymphs (auto) Nucleated RBC % Differential Comment Platelet Estimate RBC Morphology Sodium Potassium Chloride Carbon Dioxide Anion Gap BUN Creatinine Estim Creat Clear Calc Est GFR (MDRD) Af Amer Est GFR (MDRD) Non-Af BUN/Creatinine Ratio Glucose Hemoglobin A1c 7.7 H Calcium Magnesium 1.7 Iron 33 L TIBC 310 Iron Saturation 10.6 L Ferritin 73 Troponin I B-Natriuretic Peptide Triglycerides Cholesterol LDL Cholesterol VLDL Cholesterol HDL Cholesterol Vitamin B12 220 Folate 19.00 TSH 1.01 Ur Random Sodium Urine Creatinine 06/25/19 06/25/19 06/25/19 17:53 20:53 21:00 WBC RBC Hgb Hct MCV MCH MCHC RDW Std Deviation RDW Coeff of Janel Plt Count MPV Immature Gran % (Auto) Neut % (Auto) Lymph % (Auto) [place] % (Auto) Eos % (Auto) Baso % (Auto) Absolute Neuts (auto) Absolute Lymphs (auto) Nucleated RBC % Differential Comment Platelet Estimate RBC Morphology Sodium Potassium Chloride Carbon Dioxide Anion Gap BUN Creatinine Estim Creat Clear Calc Est GFR (MDRD) Af Amer Est GFR (MDRD) Non-Af BUN/Creatinine Ratio Glucose Hemoglobin A1c Calcium Magnesium Iron TIBC Iron Saturation Ferritin Troponin I 0.054 H 0.060 H B-Natriuretic Peptide Triglycerides Cholesterol LDL Cholesterol VLDL Cholesterol HDL Cholesterol Vitamin B12 Folate TSH Ur Random Sodium Urine Creatinine 22.30 06/25/19 06/26/19 06/26/19 21:00 06:05 06:05 WBC 6.1 RBC 3.18 L Hgb 8.6 L Hct 25.6 L MCV 80.5 MCH 27.0 MCHC 33.6 RDW Std Deviation 36.8 RDW Coeff of Janel 12.7 Plt Count 228 MPV 10.8 Immature Gran % (Auto) 0.300 Neut % (Auto) 73.0 H Lymph % (Auto) 8.4 L [place] % (Auto) 14.1 H Eos % (Auto) 3.5 Baso % (Auto) 0.7 Absolute Neuts (auto) 4.4 Absolute Lymphs (auto) 0.51 L Nucleated RBC % 0 Differential Comment Platelet Estimate RBC Morphology Sodium 130 L Potassium 3.8 Chloride 92 L Carbon Dioxide 32.0 Anion Gap 6 BUN 53 H Creatinine 2.74 H Estim Creat Clear Calc 22.19 Est GFR (MDRD) Af Amer 29 L Est GFR (MDRD) Non-Af 24 L BUN/Creatinine Ratio 19.3 Glucose 95 Hemoglobin A1c Calcium 8.6 Magnesium Iron TIBC Iron Saturation Ferritin Troponin I B-Natriuretic Peptide Triglycerides 134 Cholesterol 206 H LDL Cholesterol 140 H VLDL Cholesterol 27 HDL Cholesterol 39 L Vitamin B12 Folate TSH Ur Random Sodium 78 Urine Creatinine 06/26/19 06:05 WBC RBC Hgb Hct MCV MCH MCHC RDW Std Deviation RDW Coeff of Janel Plt Count MPV Immature Gran % (Auto) Neut % (Auto) Lymph % (Auto) [place] % (Auto) Eos % (Auto) Baso % (Auto) Absolute Neuts (auto) Absolute Lymphs (auto) Nucleated RBC % Differential Comment Platelet Estimate RBC Morphology Sodium Potassium Chloride Carbon Dioxide Anion Gap BUN Creatinine Estim Creat Clear Calc Est GFR (MDRD) Af Amer Est GFR (MDRD) Non-Af BUN/Creatinine Ratio Glucose Hemoglobin A1c Calcium Magnesium Iron TIBC 281 Iron Saturation Ferritin 77 Troponin I B-Natriuretic Peptide Triglycerides Cholesterol LDL Cholesterol VLDL Cholesterol HDL Cholesterol Vitamin B12 Folate TSH Ur Random Sodium Urine Creatinine POC Glucose 06/26/19 06/26/19 06/26/19 12:14 10:28 06:43 POC Glucose 101 109 91 06/25/19 06/25/19 22:28 17:12 POC Glucose 310 H 175 H Assessment/Plan Patient seen and examined independently. Data reviewed. I agree with the above note by the nurse practitioner. 1. Acute heart failure with preserved ejection fraction * Slowly improved his weight is gone from 81.4 kg to 79.5 kg * EF of 55% * Likely complicated by pulmonary hypertension where patient had a pulmonary artery systolic pressure of 35 to 40 mmHg plus mild aortic stenosis plus his chronic kidney disease * Continue with IV furosemide * Patient not a candidate for FABRICE inhibitors nor angiotensin receptor blockers given his chronic kidney disease * Cardiology following 2. Acute on chronic kidney disease stage IV * Baseline creatinine around 2.2 * Slightly improved today * Avoid nephrotoxic agents * Nephrology following 3. Hyponatremia * Likely related with hypervolemia * Slowly improved at this time * Continue to monitor 4. Diabetes mellitus type 1 * Continue insulin pump for now as well as Accu-Cheks Code Visit Inpatient E&M: 64434 Subs Hosp L2
--- NOTE | 2019-06-26 13:51 | CASEMGMT ---
RN CM Assessment Presentation: CHF, URSULA, CKD stage IV Intro role of CM and purpose of RN CM assessment to patient and his Pt is awake, alert and able to participate in assessment. Demographics, PCP and Pharmacy verified. Per pt, he is independent at home, does not require assist. States he is able to f/u with physicians and no difficulty with filling prescriptions. PCP: Dr. Lucas Lozano Specialists: Dr. Reyes, Nephrology; Cardiology- [facility] Preferred Pharmacy: [facility] Insurance: [facility] Prescription Benefit: yes LNOK: Julia Living Arrangements: Lives independently in one story home with his . Transportation: drives or can drive DME: cane, walker, insulin pump. Has Blood glucose monitoring equipment- states he checks his BS 4x day regularly. -Home oxygen 3L. Concentrator, portability through [facility] HHC: none Patient DC goals: Home DC PLAN: anticipate Home on discharge. PT/OT working with pt, arabella complete. Will continue to follow if further therapy needed. Yoni SANCHEZN RN ACM
[2019-06-26 14:01] LABS: Bedside Glucose 101 mg/dL (70-110)
[2019-06-26] MEDS: hydrALAZINE 50 MG Tablet PO ×2 (14:55→21:55)
--- NOTE | 2019-06-26 15:08 | EKG12_ITS ---
Test Reason : ADMISSION Blood Pressure : / mmHG Vent. Rate : 057 BPM Atrial Rate : 080 BPM P-R Int : 000 ms QRS Dur : 106 ms QT Int : 438 ms P-R-T Axes : 060 -35 208 degrees QTc Int : 426 ms Sinus rhythm with 2nd degree A-V block (Mobitz I) Left axis deviation Left ventricular hypertrophy with repolarization abnormality Cannot rule out Inferior infarct , age undetermined Abnormal ECG When compared with ECG of 25-JUN-2019 14:48, MANUAL COMPARISON REQUIRED, DATA IS UNCONFIRMED Confirmed by JACKELINE SPAULDING, KATALINA ([id number]), editorial specialist TWIN ESPINOZA ([id number]) on 07/01/2019 1:59:47 PM Referred By: AMBERLY Confirmed By:DALLIN VIVEROS MD
[2019-06-26] MEDS: Insulin Lispro 100 UNIT/ML INSULN.PEN SC ×2 (17:22→21:55)
[2019-06-26 17:45] LABS: Bedside Glucose 436 mg/dL (70-110)
[2019-06-26] MEDS: Insulin Basal Pump SC (19:27)
--- NOTE | 2019-06-26 19:31 | NURSING ---
1720, OT 436, PT UPSET HE WAS ONLY RECEIVING 7 U PER [facility] COVERAGE. STATES THAT PT BECOMES VERY AGITATED AND SOB WHEN SUGARS ARE ELEVATED. PT ADM 10U VIA HIS INSULIN PUMP. THIS NURSE NOTIFIED AILIN WILCOX WHO WAS THEN GOING TO NOTIFY COVERING HOSPITALIST.
[2019-06-26] MEDS: Enoxaparin 80 MG/0.8 ML Syringe SC (21:55)
[2019-06-26] MEDS: Latanoprost 0.005% 1 Bottle 1 DRP OPHTHALMIC (21:56)
--- NOTE | 2019-06-26 22:04 | NURSING ---
WHEN GETTING OUT OF BED TO GO TO RR L JOSHE BEGAN TO BLEED, SATURATING MULTIPLE PAPERTOWELS
[2019-06-26 22:46] LABS: Bedside Glucose 336 mg/dL (70-110)
[2019-06-27] VITALS (20 sets, daily range): BP systolic 103–155; BP diastolic 50–79; PULSE 76–100; RESP 16–20; TEMP 36.8–37.2; O2SAT 92–100
[2019-06-27] MEDS: Ipratropium/Albuterol Sulfate 3 ML AMPUL.NEB INHALATION ×3 (01:43→19:31)
--- NOTE | 2019-06-27 03:50 | NURSING ---
When standing up to go to RR, nose began to bleed. MD contacted. Bladder scanned for 326 cc post 200 cc void. Straight cathed for 400cc.
[2019-06-27 04:55] LABS: Hematocrit 24.7 % (40-54); Hemoglobin 8.1 g/dL (13.0-16.5); Mean Corp Hgb Conc 32.8 g/dL (32-36); Mean Corpuscular Hgb 26.7 pg (27.0-32.0); Mean Corpuscular Volume 81.5 fL (80-94); Mean Platelet Vol. 9.9 fl (6.2-12.0); Platelet Count 225 K/mm3 (150-450); RBC Distribution Width CV 12.8 % (11.6-14.6); Red Blood Count 3.03 M/mm3 (4.6-6.2); White Blood Count 7.2 K/mm3 (4.4-11.0)
[2019-06-27 05:09] LABS: Anion Gap 7 (5-15); BUN 74 mg/dL (7-18); BUN/Creat Ratio 23.3 RATIO (10-20); Calcium,Total 8.2 mg/dL (8.5-10.1); Chloride 93 mmol/L (98-107); Creatinine, Serum 3.18 mg/dL (0.70-1.30); EST Glomerular Filtration Rate 20 mL/min (>60); Est Glom Filt Rate - Afr Amer 25 mL/min (>60); Estimated Creatinine Clearance 19.12 ml/min; Glucose 176 mg/dL (74-106); Potassium 4.2 mmol/L (3.5-5.1); Sodium Level 132 mmol/L (136-145)
[2019-06-27] MEDS: Insulin Lispro 100 UNIT/ML INSULN.PEN SC ×2 (06:39→11:23)
[2019-06-27] MEDS: hydrALAZINE 50 MG Tablet PO ×3 (06:40→22:51)
[2019-06-27 06:55] LABS: Bedside Glucose 212 mg/dL (70-110)
--- NOTE | 2019-06-27 09:51 | PCM.CONS.B ---
- Consult Date of Consult: 06/27/19 - Reason for Consult ENT consultation: The patient is a 74-year-old white male currently admitted for cardiac evaluation and was placed on anticoagulation medication. He has had history of nasal bleeding in the past. In fact back in February of this year he saw Dr. Dumas for recurring bleeding and had cautery of anterior nasal septal bleeding. This was not a significant bleeding area but rather a breakdown of small vessels in Kiesselbach's plexus of the right anterior inferior septum region. Silver nitrate cautery was successful. He had no further bleeding problems until his recent admission and the institution of anti-coagulation medication. I believe he was on Lovenox last night has been on low-dose aspirin. Because of the nasal bleeding the Lovenox was stopped this morning. ENT consultation was requested. Examination reveals slight excoriation of the right anterior nasal septal mucosa. No bleeding currently. The oropharynx is clear. Impression: epistaxis, recurrent in nature, involving right anterior nasal septal small vessels. The presence of the anticoagulation medication has made this a significant issue. Plan: we discussed with him ways of management. If anticoagulation is necessary, specifically antiplatelet medications, it would be inadvisable to use cautery at this time. In the absence of good platelet function wound healing is compromised and cauterization may make the wound larger and harder to heal. We discussed with the hospitalist the use of some Afrin to constrict anterior vessels and consideration of simple ointment (BID) in this area for the current time. Should bleeding become an ongoing issue I would favor utilization of a small anterior pack such as Vaseline gauze with or without the use of some FloSeal application to the mucosa. At this point less intervention seems better. I will be available to follow. Talha Johnson MD
--- NOTE | 2019-06-27 10:17 | PCM.PN.REN ---
Patient Problems: Active and Suspected Problems (Last Reviewed 06/11/19 @ 11:12 by Mariaelena Schilling NP-C) Congestive heart failure (Acute) Hyponatremia (Acute) Subjective: Pt had nose bleed last night. His breathing is better. no more edema of LE and his abdomen girth improved No nausea No vomiting Patient had to be straight cath this morning for bladder scan finding > 200 cc - Physical Exam General: Alert, Oriented x3 HEENT: Atraumatic Oral: Moist Mucosa Neck: Supple, No JVD Lungs: - - B/L lungs bases crackles Cardiovascular: Regular rate, Regular Rhythm, Normal S1, Normal S2 Abdomen: Bowel Sounds Present, Soft, Non Tender, Non-Distended Extremities: No clubbing, No cyanosis, No edema Musculoskeletal: No Tenderness to Palpation of Joints or Extremities Lymphatic: No Cervical, Supraclavicular, or Inguinal Adenopathy Neurological: Cranial nerves II-XII grossly intact, Neuro grossly intact Psych/Mental Status: Appropriate Vital Signs Temp Pulse Resp BP Pulse Ox 98.7 F 100 20 H 112/54 L 100 06/27/19 08:00 06/27/19 08:00 06/27/19 08:00 06/27/19 08:00 06/27/19 08:00 Oxygen Flow Rate (L/min) 3 Oxygen Delivery Method Simple Mask Weight: 77.3 kg Body Mass Index (BMI) 27.3 Intake and Output for Last 24 Hours 06/25/19 06/26/19 06/27/19 23:59 23:59 23:59 Intake Total 60 / 60 590 / 590 240 / 240 Output Total 950 / 950 2600 / 2600 600 / 600 Balance -890 / -890 -2009 / -2009 -360 / -360 Laboratory Tests Past 24 Hrs 06/26/19 06/27/19 06/27/19 06:05 04:48 04:48 WBC 7.2 RBC 3.03 L Hgb 8.1 L Hct 24.7 L MCV 81.5 MCH 26.7 L MCHC 32.8 RDW Std Deviation 38.0 RDW Coeff of Janel 12.8 Plt Count 225 MPV 9.9 Sodium 132 L Potassium 4.2 Chloride 93 L Carbon Dioxide 32.0 Anion Gap 7 BUN 74 H Creatinine 3.18 H Estim Creat Clear Calc 19.12 Est GFR (MDRD) Af Amer 25 L Est GFR (MDRD) Non-Af 20 L BUN/Creatinine Ratio 23.3 H Glucose 176 H Calcium 8.2 L TIBC 281 Ferritin 77 POC Glucose 06/27/19 06/26/19 06/26/19 06:37 21:45 17:13 POC Glucose 212 H 336 H 436 H 06/26/19 06/26/19 12:14 10:28 POC Glucose 101 109 Medical Necessity - Tobacco Use Smoking Status: Former smoker Tobacco Use: Non-smoker Assessment/Plan All Active Problems (Last Reviewed 06/11/19 @ 11:12 by Mariaelena Schilling, LEDA-C) Congestive heart failure (Acute) Hyponatremia (Acute) Shortness of breath (Acute) 1-acute kidney injury on chronic kidney disease. Baseline creatinine seems around 2.2-2.4 mg deciliter. Cr increased today to 3.1 mg/dL from 2.7 mg/dL. I believe this from overdiuresis or post renal obstruction at bladder level I will stop lisix today continue to do bladder scan with PRN bladder straight cath Please avoid LEONILA inhibitor or ARB. Avoid IV contrast. Avoid NSAIDs. continue to monitor kidney function No need for replacement therapy. 2-hyponatremia with fluid overload. Improved. Na today 132 3-hypertension: Blood pressure is well controlled Please continue holding enalapril. Avoid LEONILA inhibitor or ARB. continue same BP medications 4-Iron deficiency anemia: Iron Sat is low at 10% Pt was started on loading dose of Venofer No need for LAUREL for now 5- h/o prostate Ca s/p radiation therapy with frequent urination difficulty Will check PSA Might need campa cath placement if keeps having urination difficulty Renal team will continue to follow. Please call if any question at [phone] Plan of care was discussed patient, patient's , and with Dr. Austin Sewell MD
[2019-06-27] MEDS: Timolol 0.5% 5ML OPTH.BTL 1 DRP EACH EYE ×2 (11:22→22:53)
[2019-06-27] MEDS: BRIMONIDINE 0.2% 5ML BOTTLE 1 DRP LEFT EYE (11:22)
[2019-06-27] MEDS: Mineral Oil/Petrolatum Cr 1.75oz Bottle 1 APPLIC TOPICAL (11:35)
[2019-06-27] MEDS: Oxymetazoline 0.05% 1 SPRAY SPRAY.BTL 2 SPRAY NASAL ×2 (11:37→18:54)
[2019-06-27 12:05] LABS: Bedside Glucose 326 mg/dL (70-110)
--- NOTE | 2019-06-27 12:58 | PN_ITS ---
<Torie Hastings - Last Filed: 06/27/19 13:09> Patient Problems: Active and Suspected Problems (Last Reviewed 06/11/19 @ 11:12 by Mariaelena Schilling NP-Buddy) Congestive heart failure (Acute) Hyponatremia (Acute) Subjective: Patient seen and examined. He reports breathing and lower extremity swelling is improved. He had episode of epistaxis overnight and early this morning. He reports he has had recurrent epistaxis in the past as well. Reports he did not sleep well overnight. Denies other complaints - Physical Exam General: Alert, Oriented x3, Cooperative HEENT: Atraumatic, PERRLA, EOMI, Normocephalic Neck: Supple, No JVD, Negative Carotid Bruits Lungs: Clear to auscultation, Diminished Cardiovascular: Regular rate, Regular Rhythm, Normal S1, Normal S2, No murmurs Abdomen: Bowel Sounds Present, Soft, Non Tender, Non-Distended Extremities: No clubbing, No cyanosis, Capillary Refill Less than 3 Seconds, Edema - Bilateral lower extremities, improved, Fabrice wraps in place Skin: No rashes, No breakdown Musculoskeletal: No Tenderness to Palpation of Joints or Extremities Neurological: Cranial nerves II-XII grossly intact, Neuro grossly intact Psych/Mental Status: Normal Affect, Appropriate Vital Signs Temp Pulse Resp BP Pulse Ox 98.7 F 95 20 H 112/54 L 100 06/27/19 08:00 06/27/19 12:27 06/27/19 08:00 06/27/19 08:00 06/27/19 08:00 Oxygen Flow Rate (L/min) 3 Oxygen Delivery Method Simple Mask Weight: 170 lb 6.677 oz Body Mass Index (BMI) 27.3 Intake and Output for Last 24 Hours 06/25/19 06/26/19 06/27/19 23:59 23:59 23:59 Intake Total 60 / 60 590 / 590 490 / 490 Output Total 950 / 950 2600 / 2600 600 / 600 Balance -890 / -890 -2009 / -2009 -110 / -110 Laboratory Tests Past 24 Hrs 06/27/19 06/27/19 06/27/19 04:48 04:48 11:26 WBC 7.2 RBC 3.03 L Hgb 8.1 L Hct 24.7 L MCV 81.5 MCH 26.7 L MCHC 32.8 RDW Std Deviation 38.0 RDW Coeff of Janel 12.8 Plt Count 225 MPV 9.9 Sodium 132 L Potassium 4.2 Chloride 93 L Carbon Dioxide 32.0 Anion Gap 7 BUN 74 H Creatinine 3.18 H Estim Creat Clear Calc 19.12 Est GFR (MDRD) Af Amer 25 L Est GFR (MDRD) Non-Af 20 L BUN/Creatinine Ratio 23.3 H Glucose 176 H Calcium 8.2 L Free PSA Pending % Free PSA Pending Total PSA Pending POC Glucose 06/27/19 06/27/19 06/26/19 11:16 06:37 21:45 POC Glucose 326 H 212 H 336 H 06/26/19 06/26/19 17:13 12:14 POC Glucose 436 H 101 Medical Necessity - Tobacco Use Smoking Status: Former smoker Tobacco Use: Non-smoker Assessment/Plan All Active Problems (Last Reviewed 06/11/19 @ 11:12 by Mariaelena Schilling, BONE CHAR PULLER-C) Congestive heart failure (Acute) Hyponatremia (Acute) Shortness of breath (Acute) 1. Acute diastolic CHF-BNP 474. Chest x-ray with findings suggestive of scarring at the lung bases and mild scarring in the upper lobes. Echocardiogram demonstrates an EF of 55%, coronary artery systolic pressure 35 to 40 mmHg, mild aortic stenosis. Strict I&O. Daily weight. Further IV Lasix discontinued given increasing creatinine. 2. EKG changes/second-degree type I, Wenckebach-not on any rate limiting medications. Monitor telemetry. 3. Abnormal troponin-suspect demand ischemia as a result of #1. Cardiology following. Plan for further outpatient work-up with possible stress test. 4. Hypervolemic hyponatremia- Improving, trend BMP. 5. Acute anemia on Anemia of chronic disease-appears reduced compared to baseline. Iron panel shows iron deficiency. IV iron ordered. Stool for occult blood pending. Trend CBC. 6. Acute kidney injury on chronic kidney disease stage III-nephrology following. Baseline creatinine approximately 2.4. Hold FABRICE inhibitor regimen. Creatinine worsened today, IV Lasix held. Trend BMP. Renal ultrasound shows poor corticomedullary echogenic differentiation of the kidney suggestive of medical renal disease. Left kidney is hypertrophied. Large cyst of the lower pole of the left kidney measuring 7.8 x 6.9 x 6.8 cm. Small amount of echogenic material in the gravity dependent portion of the urinary bladder. Recommend follow-up with urology as outpatient. 7. Acute epistaxis, history of recurrent nasal bleeding-ENT consulted. Epistaxis currently resolved. Afrin and simple ointment ordered. Lovenox discontinued. Continue aspirin as long as no further complications. 8. Hypertension-blood pressure above goal. Home FABRICE inhibitor on hold secondary to URSULA. PRN hydralazine for systolic blood pressure greater than 160. Cardiology recommending initiating amlodipine pending response to hydralazine. 9. Hyperlipidemia-lipid panel elevated. Cardiology to assess as outpatient. 10. Type 1 diabetes mellitus-on insulin pump. Accu-Cheks before meals at bedtime with sliding scale insulin. 11. Chronic hypoxic respiratory failure with chronic COPD-albuterol and DuoNeb aerosols. No acute exacerbation. Follows with Dr. Bolanos. Continue supplement oxygen to maintain O2 sat above 90%. 12. History of prostate cancer-in remission. 13. History of tobacco use-approximately [id number] smoking history. DVT prophylaxis-SCDs, Lovenox on hold given epistaxis. This patient was seen by SHIVAM Dey under the supervision of Dr. Avila. <Arnoldo Avila - Last Filed: 06/27/19 15:18> Subjective: This [place] last night that persisted for several hours but eventually did resolve. Breathing overall better. - Physical Exam General: Alert, Cooperative HEENT: Atraumatic, Normocephalic Lungs: - - Bibasilar crackles Cardiovascular: Regular rate, Regular Rhythm, Normal S1, Normal S2, No murmurs Abdomen: Bowel Sounds Present, Soft, Non Tender, Non-Distended Extremities: No cyanosis, No Calf Tenderness Musculoskeletal: No Tenderness to Palpation of Joints or Extremities, No Muscle Wasting Psych/Mental Status: Normal Affect, Appropriate Vital Signs Temp Pulse Resp BP Pulse Ox 37.2 C 90 20 H 155/79 H 92 06/27/19 14:37 06/27/19 14:41 06/27/19 14:37 06/27/19 14:41 06/27/19 14:37 Oxygen Flow Rate (L/min) 3 Oxygen Delivery Method Simple Mask Weight: 77.3 kg Body Mass Index (BMI) 27.3 Intake and Output for Last 24 Hours 06/25/19 06/26/19 06/27/19 23:59 23:59 23:59 Intake Total 60 / 60 590 / 590 490 / 490 Output Total 950 / 950 2600 / 2600 600 / 600 Balance -890 / -890 -2009 / -2009 -110 / -110 Laboratory Tests Past 24 Hrs 06/27/19 06/27/19 06/27/19 04:48 04:48 11:26 WBC 7.2 RBC 3.03 L Hgb 8.1 L Hct 24.7 L MCV 81.5 MCH 26.7 L MCHC 32.8 RDW Std Deviation 38.0 RDW Coeff of Janel 12.8 Plt Count 225 MPV 9.9 Sodium 132 L Potassium 4.2 Chloride 93 L Carbon Dioxide 32.0 Anion Gap 7 BUN 74 H Creatinine 3.18 H Estim Creat Clear Calc 19.12 Est GFR (MDRD) Af Amer 25 L Est GFR (MDRD) Non-Af 20 L BUN/Creatinine Ratio 23.3 H Glucose 176 H Calcium 8.2 L Free PSA Pending % Free PSA Pending Total PSA Pending POC Glucose 06/27/19 06/27/19 06/26/19 11:16 06:37 21:45 POC Glucose 326 H 212 H 336 H 06/26/19 17:13 POC Glucose 436 H Assessment/Plan Patient seen and examined independently. Data reviewed. I agree with the above note by the nurse practitioner. 1. Acute heart failure with preserved ejection fraction * Slowly improved his weight is gone from 81.4 kg to 77.3 kg * EF of 55% * Likely complicated by pulmonary hypertension where patient had a pulmonary artery systolic pressure of 35 to 40 mmHg plus mild aortic stenosis plus his chronic kidney disease * Continue with IV furosemide * Patient not a candidate for FABRICE inhibitors nor angiotensin receptor blockers given his chronic kidney disease * Cardiology following 2. Acute on chronic kidney disease stage IV * worse today * Baseline creatinine around 2.2 * furosemide held 06/27 * GEOFF Sewell * Nephrology following 3. Hyponatremia * Likely related with hypervolemia * Slowly improved at this time * Continue to monitor 4. Diabetes mellitus type 1 * Continue insulin pump for now as well as Accu-Cheks * A1c 7.7 5. Epistaxis * currently resolved * h/o epistaxis on right requiring AgNO3, plus, anticoagulants * GEOFF Johnson, who recommends PRN oxymetazoline and ointment 7. Elevated troponins * could be related with primary cardiac event or due to demand ischemia from CHF, or could be skewed upwards given his CKD. Greater than 35 minutes of which greater than 50% of the time was counseling about CHF, URSULA, epistaxis and currently medical plan. In addition, spent an additional 15 minutes discussing with the patient about advanced care planning. Discussed CPR and intubation with patient. He wishes to be full CODE STATUS at this time. I did discuss that with the patient's medical complexity that he has a lot of symptoms and concerns. I did recommend pot of care and to discuss pad of care to extend to regards to helping palliate symptoms. Code Visit Inpatient E&M: 01076 Subs Hosp L3 Procedures: 39039 Advncd Care Plan 30 Min
[2019-06-27 16:40] LABS: Bedside Glucose 366 mg/dL (70-110)
[2019-06-27] MEDS: Albuterol 2.5 MG/3 ML VIAL.NEB. INHALATION (16:46)
--- NOTE | 2019-06-27 16:56 | PN.CARD_ITS ---
Subjectve: Patient was doing well until about 15 minutes back. He took a nap and then woke up with shortness of breath. Objective: Vital Signs Temp Pulse Resp BP Pulse Ox 98.9 F 93 20 H 155/79 H 92 06/27/19 14:37 06/27/19 15:00 06/27/19 14:37 06/27/19 14:41 06/27/19 14:37 Oxygen Flow Rate (L/min) 3 Oxygen Delivery Method Simple Mask Weight: 170 lb 6.677 oz Body Mass Index (BMI) 27.3 Intake and Output for Last 24 Hours 06/25/19 06/26/19 06/27/19 23:59 23:59 23:59 Intake Total 60 / 60 590 / 590 490 / 490 Output Total 950 / 950 2600 / 2600 600 / 600 Balance -890 / -890 -2009 / -2009 -110 / -110 General: Awake, Alert, Oriented x 3 HEENT: Atraumatic Oral: Moist Mucosa Neck: Supple Lungs: Rales - Bob Bases Cardiovascular: Normal S1, Normal S2 Abdomen: Soft Skin: No Rashes Psych/Mental Status: Appropriate 06/27/19 04:48: WBC 7.2, RBC 3.03 L, Hgb 8.1 L, Hct 24.7 L, MCV 81.5, MCH 26.7 L , MCHC 32.8, Plt Count 225, MPV 9.9 06/27/19 04:48: Sodium 132 L, Potassium 4.2, Chloride 93 L, Carbon Dioxide 32.0, Anion Gap 7, BUN 74 H, Creatinine 3.18 H, Est GFR (MDRD) Af Amer 25 L, Est GFR (MDRD) Non-Af 20 L, BUN/Creatinine Ratio 23.3 H, Glucose 176 H, Calcium 8.2 L Rhythm: EKG: ECHO: Stress Test: Cardiac Cath: PCI: CT Surgery: Holter monitor: EPS: PPM: CXR: Chest CT Scan: Medical Necessity - Tobacco Use Smoking Status: Former smoker Tobacco Use: Non-smoker Assessment/Plan 1. Shortness of breath: Patient's shortness of breath appears to be multifactorial with contribution from anemia, COPD and volume overload that could be from his renal issues and HFpEF. His echo showed no evidence of LV dysfunction or RV dysfunction. His pulmonary pressures appeared to be normal. He does have mild aortic stenosis. While his EKG changes could represent myocardial ischemia, they could very well be a result of underlying coronary artery disease and anemia and hypoxemia. He became short of breath again this afternoon and has bibasilar crackles. His Lasix has been discontinued because of increasing creatinine level. Even though his creatinine has gone up I think it is reasonable to give atleast 1 dose of IV Lasix and check a creatinine level tomorrow. He does not have any other evidence of volume overload in the form of elevated JVD or lower extremity edema. Differential diagnosis for the bibasilar crackles and shortness of breath could be a primary pulmonary problem such as pneumonia or interstitial fibrosis. However he is afebrile, does not have any other symptoms such as cough with expectoration and does not have an elevated wh ite count. It will be reasonable to give 1 dose of IV Lasix and assess the response.
--- NOTE | 2019-06-27 17:06 | NURSING ---
Patient gave himself 7 units based on home pump scale. Patient does not want sliding scale yet until he sees how he does with pump, because he is not hungry.
[2019-06-27] MEDS: Insulin Basal Pump SC (17:18)
[2019-06-27] MEDS: Tamsulosin HCl 0.4 MG Capsule PO (17:18)
[2019-06-27] MEDS: Furosemide 40 MG/4 ML Vial IV (17:33)
--- NOTE | 2019-06-27 20:30 | NURSING ---
Patient checked blood sugar and administered 7 units of insulin via his insulin pump for a blood sugar result of 369.
[2019-06-27] MEDS: Latanoprost 0.005% 1 Bottle 1 DRP OPHTHALMIC (22:54)
[2019-06-27] MEDS: Petrolatum,White 5 GM PACKET 1 APPLIC TOPICAL (22:55)
--- NOTE | 2019-06-27 23:00 | NURSING ---
Patient administered 4 units of insulin via insulin pump for a blood sugar of 286. Does not want to take our insulin, wants to just use his insulin pump.
[2019-06-27 23:21] LABS: Bedside Glucose 286 mg/dL (70-110)
[2019-06-28] VITALS (32 sets, daily range): BP systolic 71–144; BP diastolic 46–93; PULSE 81–124; RESP 10–24; TEMP 36.5–36.9; O2SAT 97–100
[2019-06-28] MEDS: Ipratropium/Albuterol Sulfate 3 ML AMPUL.NEB INHALATION ×4 (02:40→18:57)
[2019-06-28 06:35] LABS: Absolute Lymphocyte Count 0.72 X10^3/uL (0.83-4.51); Absolute Neutrophil Count 3.8 X10^3/uL (2.0-7.7); Basophil# 0.03 X10^3/uL; Basophil% 0.5 % (0-1); Eosinophil# 0.23 X10^3/uL; Eosinophils% 4.1 % (0-5); Hematocrit 20.6 % (40-54); Hemoglobin 6.8 g/dL (13.0-16.5); Lymphocyte # 0.72 X10^3/ul (4.0); Lymphocyte % 12.9 % (19-41); Mean Corpuscular Hgb 26.7 pg (27.0-32.0); Mean Corpuscular Volume 80.8 fL (80-94); Mean Platelet Vol. 11.1 fl (6.2-12.0); Monocyte% 14.4 % (0-10); NRBC Flagged by Analyzer 0 % (0-5); Neutrophil # 3.77 X10^3/uL (2.7-7.7); Neutrophil % 67.7 % (47-70); Platelet Count 246 K/mm3 (150-450); RBC Distribution Width CV 13.2 % (11.6-14.6); RBC Distribution Width SD 39.2 fl (35.1-43.9); Red Blood Count 2.55 M/mm3 (4.6-6.2); White Blood Count 5.6 K/mm3 (4.4-11.0)
[2019-06-28 06:46] LABS: Anion Gap 8 (5-15); BUN 92 mg/dL (7-18); Calcium,Total 8.2 mg/dL (8.5-10.1); Chloride 95 mmol/L (98-107); Creatinine, Serum 3.54 mg/dL (0.70-1.30); EST Glomerular Filtration Rate 18 mL/min (>60); Est Glom Filt Rate - Afr Amer 22 mL/min (>60); Estimated Creatinine Clearance 17.18 ml/min; Glucose 56 mg/dL (74-106); Potassium 3.8 mmol/L (3.5-5.1); Sodium Level 133 mmol/L (136-145)
[2019-06-28 06:50] LABS: Bedside Glucose 57 mg/dL (70-110)
[2019-06-28 07:35] LABS: Bedside Glucose 111 mg/dL (70-110)
[2019-06-28] MEDS: Glucerna Shake 120 ML LIQUID PO ×2 (08:12→11:15)
[2019-06-28] MEDS: Timolol 0.5% 5ML OPTH.BTL 1 DRP EACH EYE (08:14)
[2019-06-28] MEDS: BRIMONIDINE 0.2% 5ML BOTTLE 1 DRP LEFT EYE (08:14)
--- NOTE | 2019-06-28 10:31 | PN.CARD_ITS ---
Subjectve: Events noted. Still complains of some shortness of breath, but no chest pain or tightness. Significant hemoglobin drop noted this morning. Plans are for PRBC transfusion. Objective: Vital Signs Temp Pulse Resp BP Pulse Ox 97.7 F L 90 18 111/48 L 100 06/28/19 07:58 06/28/19 07:58 06/28/19 07:58 06/28/19 07:58 06/28/19 07:58 Oxygen Flow Rate (L/min) 3 Oxygen Delivery Method Nasal Cannula Weight: 77.4 kg Body Mass Index (BMI) 27.3 Intake and Output for Last 24 Hours 06/26/19 06/27/19 06/28/19 23:59 23:59 23:59 Intake Total 590 / 590 1070 / 1070 0 / 0 Output Total 2600 / 2600 1050 / 1050 Balance -2009 / -2009 0 / 0 General: Awake, Alert, Oriented x 3 HEENT: Atraumatic Oral: Moist Mucosa Neck: Supple, Good ROM, No Lymph Node Enlargement Lungs: Clear to auscultation Cardiovascular: Regular Rhythm, Normal S1, Normal S2, No Murmurs, No Rubs, No Gallops Vascular: No Carotid Bruits, Normal Femoral Pulses, Normal Radial Pulses, Normal Dorsalis Pedal Pulse, Normal Posterior Tibial Pulses Abdomen: Bowel Sounds Present, Soft, Non Tender, No HSM, No Organomegaly Extremities: No Cyanosis, No Clubbing, No edema Neurological: No Focal Motor or Sensory Deficit 06/28/19 05:36: WBC 5.6, RBC 2.55 L, Hgb 6.8 L, Hct 20.6 L, MCV 80.8, MCH 26.7 L , MCHC 33.0, Plt Count 246, MPV 11.1, Immature Gran % (Auto) 0.400, Neut % (Auto) 67.7, Lymph % (Auto) 12.9 L, Bradford % (Auto) 14.4 H, Eos % (Auto) 4.1, Baso % (Auto) 0.5, Absolute Neuts (auto) 3.8, Nucleated RBC % 0 06/28/19 05:36: Sodium 133 L, Potassium 3.8, Chloride 95 L, Carbon Dioxide 30.0, Anion Gap 8, BUN 92 H, Creatinine 3.54 H, Est GFR (MDRD) Af Amer 22 L, Est GFR (MDRD) Non-Af 18 L, BUN/Creatinine Ratio 26.0 H, Glucose 56 L, Calcium 8.2 L Rhythm: EKG: ECHO: Stress Test: Cardiac Cath: PCI: CT Surgery: Holter monitor: EPS: PPM: CXR: Chest CT Scan: Medical Necessity - Tobacco Use Smoking Status: Former smoker Tobacco Use: Non-smoker Assessment/Plan 1. Shortness of breath is likely multifactorial. Certainly, acute renal insufficiency, COPD and anemia are contributory. He will require an outpatient noninvasive work-up to rule out obstructive coronary artery disease. 2. Anemia. Noted significantly dropped hemoglobin. Plans are for 1U PRBC transfusion. Stools are guaiac negative. 3. Renal insufficiency. Nephrology following. Input appreciated, will abstain from loop diuretics. Code Visit Inpatient E&M: 34860 Subs Hosp L3
--- NOTE | 2019-06-28 10:33 | PN_ITS ---
<Torie Hastings - Last Filed: 06/28/19 10:37> Patient Problems: Active and Suspected Problems (Last Reviewed 06/11/19 @ 11:12 by Mariaelena Schilling NP-C) Congestive heart failure (Acute) Hyponatremia (Acute) Subjective: Patient seen and examined. States he feels significantly improved. Shortness of breath resolved. No further epistaxis. - Physical Exam General: Alert, Oriented x3, Cooperative HEENT: Atraumatic, PERRLA, EOMI, Normocephalic Neck: Supple, No JVD, Negative Carotid Bruits Lungs: Clear to auscultation, Diminished Cardiovascular: Regular rate, Regular Rhythm, Normal S1, Normal S2, No murmurs Abdomen: Bowel Sounds Present, Soft, Non Tender, Non-Distended Extremities: No clubbing, No cyanosis, Capillary Refill Less than 3 Seconds, - - Edema - Bilateral lower extremities, improved, Fabrice wraps in place Skin: No rashes, No breakdown Musculoskeletal: No Tenderness to Palpation of Joints or Extremities Neurological: Cranial nerves II-XII grossly intact, Neuro grossly intact Psych/Mental Status: Normal Affect, Appropriate Vital Signs Temp Pulse Resp BP Pulse Ox 97.7 F L 90 18 111/48 L 100 06/28/19 07:58 06/28/19 07:58 06/28/19 07:58 06/28/19 07:58 06/28/19 07:58 Oxygen Flow Rate (L/min) 3 Oxygen Delivery Method Nasal Cannula Weight: 170 lb 10.205 oz Body Mass Index (BMI) 27.3 Intake and Output for Last 24 Hours 06/26/19 06/27/19 06/28/19 23:59 23:59 23:59 Intake Total 590 / 590 1070 / 1070 0 / 0 Output Total 2600 / 2600 1050 / 1050 Balance -2009 / -2009 0 / 0 Microbiology Past 72 Hours 06/27/19 21:10 Stool Occult Blood (LEVI) - Final Stool Laboratory Tests Past 24 Hrs 06/27/19 06/28/19 06/28/19 11:26 05:36 05:36 WBC 5.6 RBC 2.55 L Hgb 6.8 L Hct 20.6 L MCV 80.8 MCH 26.7 L MCHC 33.0 RDW Std Deviation 39.2 RDW Coeff of Janel 13.2 Plt Count 246 MPV 11.1 Immature Gran % (Auto) 0.400 Neut % (Auto) 67.7 Lymph % (Auto) 12.9 L Bradley % (Auto) 14.4 H Eos % (Auto) 4.1 Baso % (Auto) 0.5 Absolute Neuts (auto) 3.8 Absolute Lymphs (auto) 0.72 L Nucleated RBC % 0 Sodium 133 L Potassium 3.8 Chloride 95 L Carbon Dioxide 30.0 Anion Gap 8 BUN 92 H Creatinine 3.54 H Estim Creat Clear Calc 17.18 Est GFR (MDRD) Af Amer 22 L Est GFR (MDRD) Non-Af 18 L BUN/Creatinine Ratio 26.0 H Glucose 56 L Calcium 8.2 L Free PSA Pending % Free PSA Pending Total PSA Pending Blood Type Antibody Screen Crossmatch 06/28/19 06/28/19 07:15 07:15 WBC RBC Hgb Hct MCV MCH MCHC RDW Std Deviation RDW Coeff of Janel Plt Count MPV Immature Gran % (Auto) Neut % (Auto) Lymph % (Auto) Bradley % (Auto) Eos % (Auto) Baso % (Auto) Absolute Neuts (auto) Absolute Lymphs (auto) Nucleated RBC % Sodium Potassium Chloride Carbon Dioxide Anion Gap BUN Creatinine Estim Creat Clear Calc Est GFR (MDRD) Af Amer Est GFR (MDRD) Non-Af BUN/Creatinine Ratio Glucose Calcium Free PSA % Free PSA Total PSA Blood Type O POSITIVE Antibody Screen NEGATIVE Crossmatch See Detail POC Glucose 06/28/19 06/28/19 06/27/19 07:28 06:45 22:46 POC Glucose 111 H 57 L 286 H 06/27/19 06/27/19 16:31 11:16 POC Glucose 366 H 326 H Medical Necessity - Tobacco Use Smoking Status: Former smoker Tobacco Use: Non-smoker Assessment/Plan All Active Problems (Last Reviewed 06/11/19 @ 11:12 by Mariaelena Schilling NP-C) Congestive heart failure (Acute) Hyponatremia (Acute) Shortness of breath (Acute) 1. Acute diastolic CHF-BNP 474. Chest x-ray with findings suggestive of scarring at the lung bases and mild scarring in the upper lobes. Echocardiogram demonstrates an EF of 55%, coronary artery systolic pressure 35 to 40 mmHg, mild aortic stenosis. Strict I&O. Daily weight. Further IV Lasix discontinued given increasing creatinine. 2. EKG changes/second-degree type I, Wenckebach-not on any rate limiting medications. Monitor telemetry. 3. Abnormal troponin-suspect demand ischemia as a result of #1. Cardiology following. Plan for further outpatient work-up with possible stress test. 4. Hypervolemic hyponatremia- Improving, trend BMP. 5. Acute blood loss anemia secondary to epistaxis/Anemia of chronic disease- IV iron ordered. Stool negative for occult blood. 1 unit PRBC given hemoglobin 6.8 this morning. Trend CBC. 6. Acute kidney injury on chronic kidney disease stage III-nephrology following. Baseline creatinine approximately 2.4. Hold FABRICE inhibitor regimen. Creatinine worsened today, continue to hold IV Lasix. Trend BMP. Renal ultrasound shows poor corticomedullary echogenic differentiation of the kidney suggestive of medical renal disease. Left kidney is hypertrophied. Large cyst of the lower pole of the left kidney measuring 7.8 x 6.9 x 6.8 cm. Small amount of echogenic material in the gravity dependent portion of the urinary bladder. Recommend follow-up with urology as outpatient. 7. Acute epistaxis, history of recurrent nasal bleeding-ENT consulted. Epistaxis currently resolved. Afrin and nasal petroleum ointment ordered. Lovenox discontinued. Continue aspirin as long as no further complications. 8. Hypertension-Home FABRICE inhibitor on hold secondary to URSULA. PRN hydralazine for systolic blood pressure greater than 160. Cardiology recommending initiating amlodipine pending response to hydralazine. 9. Hyperlipidemia-lipid panel elevated. Cardiology to assess as outpatient. 10. Type 1 diabetes mellitus-on insulin pump. Accu-Cheks before meals at bedtime with sliding scale insulin. 11. Chronic hypoxic respiratory failure with chronic COPD-albuterol and DuoNeb aerosols. No acute exacerbation. Follows with Dr. Bolanos. Continue supplement oxygen to maintain O2 sat above 90%. 12. History of prostate cancer-in remission. 13. History of tobacco use-approximately [id number] smoking history. DVT prophylaxis-SCDs, Lovenox on hold given epistaxis. This patient was seen by SHIVAM Dey under the supervision of Dr. Avila. <Arnoldo Avila - Last Filed: 06/28/19 10:48> Subjective: Feeling better. No further epistaxis. - Physical Exam General: Alert, Cooperative HEENT: Atraumatic, Normocephalic Lungs: Normal air movement, - - bibasilar crackles. Cardiovascular: Regular rate, Regular Rhythm, Normal S1, Normal S2 Abdomen: Bowel Sounds Present, Soft, Non Tender, Non-Distended Extremities: - Skin: No rashes, No breakdown Musculoskeletal: No Tenderness to Palpation of Joints or Extremities Psych/Mental Status: Normal Affect, Appropriate Vital Signs Temp Pulse Resp BP Pulse Ox 36.5 C L 90 18 111/48 L 100 06/28/19 07:58 06/28/19 07:58 06/28/19 07:58 06/28/19 07:58 06/28/19 07:58 Oxygen Flow Rate (L/min) 3 Oxygen Delivery Method Nasal Cannula Weight: 77.4 kg Body Mass Index (BMI) 27.3 Intake and Output for Last 24 Hours 06/26/19 06/27/19 06/28/19 23:59 23:59 23:59 Intake Total 590 / 590 1070 / 1070 0 / 0 Output Total 2600 / 2600 1050 / 1050 Balance -2009 / -2009 0 / 0 Microbiology Past 72 Hours 06/27/19 21:10 Stool Occult Blood (LEVI) - Final Stool Laboratory Tests Past 24 Hrs 06/27/19 06/28/19 06/28/19 11:26 05:36 05:36 WBC 5.6 RBC 2.55 L Hgb 6.8 L Hct 20.6 L MCV 80.8 MCH 26.7 L MCHC 33.0 RDW Std Deviation 39.2 RDW Coeff of Janel 13.2 Plt Count 246 MPV 11.1 Immature Gran % (Auto) 0.400 Neut % (Auto) 67.7 Lymph % (Auto) 12.9 L Bradley % (Auto) 14.4 H Eos % (Auto) 4.1 Baso % (Auto) 0.5 Absolute Neuts (auto) 3.8 Absolute Lymphs (auto) 0.72 L Nucleated RBC % 0 Sodium 133 L Potassium 3.8 Chloride 95 L Carbon Dioxide 30.0 Anion Gap 8 BUN 92 H Creatinine 3.54 H Estim Creat Clear Calc 17.18 Est GFR (MDRD) Af Amer 22 L Est GFR (MDRD) Non-Af 18 L BUN/Creatinine Ratio 26.0 H Glucose 56 L Calcium 8.2 L Free PSA Pending % Free PSA Pending Total PSA Pending Blood Type Antibody Screen Crossmatch 06/28/19 06/28/19 07:15 07:15 WBC RBC Hgb Hct MCV MCH MCHC RDW Std Deviation RDW Coeff of Janel Plt Count MPV Immature Gran % (Auto) Neut % (Auto) Lymph % (Auto) Bradley % (Auto) Eos % (Auto) Baso % (Auto) Absolute Neuts (auto) Absolute Lymphs (auto) Nucleated RBC % Sodium Potassium Chloride Carbon Dioxide Anion Gap BUN Creatinine Estim Creat Clear Calc Est GFR (MDRD) Af Amer Est GFR (MDRD) Non-Af BUN/Creatinine Ratio Glucose Calcium Free PSA % Free PSA Total PSA Blood Type O POSITIVE Antibody Screen NEGATIVE Crossmatch See Detail POC Glucose 06/28/19 06/28/19 06/27/19 07:28 06:45 22:46 POC Glucose 111 H 57 L 286 H 06/27/19 06/27/19 16:31 11:16 POC Glucose 366 H 326 H Assessment/Plan Patient seen and examined independently. Data reviewed. I agree with the above note by the nurse practitioner. 1. Acute heart failure with preserved ejection fraction * Slowly improved his weight is gone from 81.4 kg to 77.4 kg * EF of 55% * Likely complicated by pulmonary hypertension where patient had a pulmonary artery systolic pressure of 35 to 40 mmHg plus mild aortic stenosis plus his chronic kidney disease * Continue with IV furosemide * Patient not a candidate for FABRICE inhibitors nor angiotensin receptor blockers given his chronic kidney disease * Cardiology following 2. Acute on chronic kidney disease stage IV * worse again today * Baseline creatinine around 2.2 * furosemide held 06/27 3. Hyponatremia * Likely related with hypervolemia * Slowly improved at this time * Continue to monitor 4. Diabetes mellitus type 1 * Continue insulin pump for now as well as Accu-Cheks * A1c 7.7 5. Epistaxis * currently resolved * h/o epistaxis on right requiring AgNO3, plus, anticoagulants * DW Dr. Johnson, who recommends PRN oxymetazoline and ointment 7. Elevated troponins * could be related with primary cardiac event or due to demand ischemia from CHF, or could be skewed upwards given his CKD. 8. Acute blood loss anemia * 2/2 epistaxis * transfuse 1 unit RBCs * monitor Code Visit Inpatient E&M: 06322 Subs Hosp L2
[2019-06-28] MEDS: Oxymetazoline 0.05% 1 SPRAY SPRAY.BTL 2 SPRAY NASAL (11:16)
[2019-06-28 11:21] LABS: Bedside Glucose 389 mg/dL (70-110)
--- NOTE | 2019-06-28 12:20 | NURSING ---
Patient up to bathroom and became extremely short of breath. Continent of bowel and bladder. Noted to have very small epistaxis from right nares, resolved quickly. Dr. Johnson at bedside and made aware of same. Care provided and patient assisted back to bed. RT was called for stat breathing treatment and same done. Patient breathing improved quickly after breathing treatment provided. Resting much more comfortably in bed. VSS. Oxygen @ 3L NC. Pulse ox 98-100%.
--- NOTE | 2019-06-28 15:56 | EKG12_ITS ---
Test Reason : CP Blood Pressure : / mmHG Vent. Rate : 101 BPM Atrial Rate : 101 BPM P-R Int : 328 ms QRS Dur : 114 ms QT Int : 348 ms P-R-T Axes : 000 -38 119 degrees QTc Int : 451 ms Sinus tachycardia with 1st degree A-V block Left axis deviation Incomplete right bundle branch block Left ventricular hypertrophy with repolarization abnormality Abnormal ECG Confirmed by SILVIA HANNON ([id number]), web editor MARCOS DURON ([id number]) on 07/07/2019 2:39:16 PM Referred By: AZEEM Confirmed By:SILVIA HANNON
[2019-06-28] MEDS: hydrALAZINE 50 MG Tablet PO (16:03)
[2019-06-28] MEDS: Albuterol 2.5 MG/3 ML VIAL.NEB. INHALATION (16:04)
[2019-06-28] MEDS: Insulin Basal Pump SC (16:26)
[2019-06-28] MEDS: Tamsulosin HCl 0.4 MG Capsule PO (16:27)
--- NOTE | 2019-06-28 17:00 | NURSING ---
Addendum entered by Brayan Givens 06/28/19 18:57: Family at bedside and updated on patient condition. Original Note: RN at bedside to check blood sugar and give meds. Patient short of breath and complains of chest tightness like I have been having with accessory muscle use. Oxygen on @ 3L/NC. Lung sounds diminished with crackles in posterior bases. Blood sugar elevated at 427. Patient states that when he is at home and his blood sugar is elevated, he will become short of breath. Insulin given per sliding scale. Respiratory therapy called and gave breathing treatment. Patient remained short of breath after breathing treatment. broker in charge nurse at bedside and RT called back to room. Patient placed on bipap. Family at bedside and
[2019-06-28] MEDS: Insulin Lispro 100 UNIT/ML INSULN.PEN 10 UNIT SC (17:02)
--- NOTE | 2019-06-28 17:15 | RAD_ITS ---
STUDY: X-RAY CHEST REASON FOR EXAM: Male, 74 years old. SOB. TECHNIQUE: Portable chest. COMPARISON: 06/25/2019, 10/24/2018, CT 01/28/2019. FINDINGS: No pleural effusion. Mild interstitial prominence is unchanged compared to 06/25. Normal size heart. Normal mediastinum and jessica. Normal visualized pulmonary arteries. Normal visualized aortic arch and descending thoracic aorta. Normal visualized thoracic spine. Normal visualized ribs, clavicles, and shoulders. There is no demonstrated abnormality of the visualized soft tissue structures of the upper abdomen. RAD/Chest 1 View (Portable) IMPRESSION: Stable interstitial prominence. Electronically Signed: Marnie Patterson MD at 18:39 EDT Tel , Service support ,
[2019-06-28] MEDS: 0.9% NaCl Peripheral Flush Adult/Peds IV ×2 (17:28→19:30)
[2019-06-28] MEDS: Furosemide 40 MG/4 ML Vial IV (17:28)
[2019-06-28 17:41] LABS: Base Excess -2 mmol/L (-2 to +2); Bicarbonate 22.2 mmol/L (22-26); EPAP 8; FI02 40; IPAP 12; PO2 37 mmHG (75-100); RR 12; SITE L Radial; SO2 72 % (95-99); Time Given 1735; Total Carbon Dioxide 23 mmol/L; pCO2 33.8 mmHg (35-45); pH 7.43 (7.35-7.45)
[2019-06-28 17:44] LABS: Hemoglobin 9.1 g/dL (13.0-16.5)
[2019-06-28 17:47] LABS: Blood Gas Specimen Type VEN
[2019-06-28 17:52] LABS: Glucose 435 mg/dL (74-106)
--- NOTE | 2019-06-28 18:04 | PCM.HOSP.N ---
Hospitalist Note Nurse practitioner contacted per nursing staff as patient with dyspnea, increased work of breathing, chest x-ray, VBG, troponin ordered. Patient had recently been given PRBCs ministration secondary to anemia with recent history of epistaxis which is since resolved. He had also been on Lasix but this is been held secondary to worsening kidney function. Given this presentation IV Lasix requested. Dolan catheter placed as notable evidence of retention. Troponin resulted with notable elevation greater than 5 with prior 0.06. Discussed with cardiology and amenable to attempt for heparin drip but will need to potentially hold if recurrent epistaxis. Cardiology notes still suspected demand ischemia given anemia higher. Will maintain on initiated BiPAP with notable improvement since and transition to ICU for closer monitoring to which cardiology is amenable. Case also reviewed with reference library assistant, Dr. Bolanos. EKG repeat requested, reviewed with cardiology.
[2019-06-28 18:10] LABS: Bedside Glucose 387 mg/dL (70-110)
--- NOTE | 2019-06-28 18:11 | NURSING ---
Family aware that patient is being transferred to ICU. Report called to Bee PARISI, in ICU.
--- NOTE | 2019-06-28 18:48 | DS.PCM_ITS ---
Discharge Date and Diagnosis - Problem List Patient Problems: Active and Suspected Problems (Last Reviewed 06/11/19 @ 11:12 by Mariaelena Schilling NP-Buddy) Congestive heart failure (Acute) Hyponatremia (Acute) Date of Admission: 06/25/19 Date of Discharge: 06/28/19 - Primary Discharge Diagnosis Active and Suspected Problems (Last Reviewed 06/11/19 @ 11:12 by Mariaelena Schilling NP-C) 1. Acute diastolic CHF 2. EKG changes/second-degree type I, Wenckebach with additionally evidence of ischemia 3. NSTEMI, demand ischemia secondary to #1 4. Hypervolemic, hyponatremia secondary to #1 5. Acute blood loss anemia secondary to epistaxis/Anemia of chronic disease secondary to #7 6. Acute kidney injury on chronic kidney disease stage III secondary to nephrotoxic regimen, #1 as well as urinary retention 7. Acute epistaxis, history of recurrent nasal bleeding 8. Hypertension 9. Hyperlipidemia 10. Type 1 diabetes mellitus-on insulin pump 11. Acute on chronic hypoxic respiratory failure secondary to #1 and #12 12. Chronic COPD 13. History of prostate cancer 14. History of tobacco use - Secondary Discharge Diagnosis Chronic Problems (Last Reviewed 06/11/19 @ 11:12 by SHIVAM Morrow) CKD (chronic kidney disease) stage 4, GFR 15-29 ml/min (Chronic) Anemia (Chronic) Acute kidney injury superimposed on chronic kidney disease (Chronic) Kidney failure (Chronic) Pulmonary nodule (Chronic) Chronic hypoxemic respiratory failure (Chronic) COPD (chronic obstructive pulmonary disease) (Chronic) Hospital Course and Treatment Imaging Results: 06/28/19 17:15 CXR [Chest 1 View (Portable)] [RAD] Stat Operations: None Procedures: 2-D Echocardiogram, Blood transfusion, EKG Summary of Care Provided: The patient is a 74 y/o M w/ PMHx: Chronic hypoxic respiratory failure with chronic COPD on 3 L nasal cannula, anemia of chronic disease, chronic kidney disease stage IV following with Dr. Reyes, diabetes mellitus type 1, history of prostate cancer in remission, former tobacco use, hypertension who presented to the [facility] ED on 06/25/19 w/ history of at least 1 week history of progressively worsening severe dyspnea, more pronounced with any exertional effort, worsened bilateral lower extremity edema with abdominal distention as well in addition to approximate 15 pound weight gain with initiation of Bumex approximate 2 weeks prior per his patient case coordinator. Work-up in the ED included T 98.1, heart rate 74, BP 161/80, respiratory rate 15, 100% on 3 L nasal cannula, CBC with WBC 5.7, hemoglobin 8.1, platelet 209 with out market shift, BMP with sodium 125, chloride 89, BUN/Cr 50/2.88, 211, troponin 0 0.043, BNP 474.8, EKG with initial concerns for lateral depressions change since prior EKG 2014 with cardiology review. Following discussion and review of EKG with cardiology per ED physician patient administered aspirin therapy and loading dose of Brilinta pending troponin however this returned to normal therefore no intention for cardiac catheterization with cardiology requested serial cardiac enzymes, EKG, echocardiogram, stress testing. Patient was admitted to PCU, maintained on cardiac telemetry, cardiac enzyme series obtained with initial 0.043-->0.054-->0.060-->5.880, obtained serial EKGs with noted EKG changes with more notable changes on day of discharge following complaint of dyspnea, chest tightness and concurrently noted elevated cardiac enzyme significant for ischemia. Patient upon initial presentation initiate an IV Lasix diuresis, sage tored I/Os, maintained on intake restriction, continued medical therapy w/ asa, statin. TSH level normal. Magnesium level normal. Echocardiogram obtained with EF 55%, no evidence for diastolic dysfunction, PASP 35 to 40 mmHg, mild left ear, moderate diffuse AV thickening. Concurrent presentation with acute kidney injury on CKD stage III/IV felt secondary to acute presentation with volume overload, nephrotoxic regimen, urinary retention as eventual bladder scans notable and Dolan catheter required. Admission BUN/Cr 50/2.88, prior baseline creatinine noted to be 1.8-2.2 with baseline steadily increasing since 2016 which worsened during admission with discharge date creatinine 3.54. Given acute presentation and hydration, initially placed on IV diuresis although held on day of discharge with PRBC administration but onset respiratory distress therefore IV Lasix resumed. Held FABRICE inhibitor. Obtained renal ultrasound with poor corticomedullary echogenic differentiation of the kidneys suggestive of medical renal disease, hypertrophy left kidney, large cyst to the lower pole of the left kidney measuring 7.8 x 6.9 x 6.8 cm, small amount of echogenic material in the gravity dependent portion of the urinary bladder. Nephrology consulted, recommendation to continue with as noted as well as avoid IV contrast, avoid NSAIDs, started on Venofer. Admission hemoglobin 8.1, iron panel, ferritin, folic acid and B12 ordered with as noted nephrology initiation of IV Venofer. Hemoglobin trended with repeat on 06/28/19 am 6.8 with 1 unit PRBC administered with repeat hemoglobin 9.1. During admission patient did have episode of epistaxis with ENT evaluation and eventual resolution with continued Afrin and white petroleum to the nares. On late afternoon on day of discharge patient with onset of dyspnea and some chest tightness with as noted recent hold on IV Lasix given worsened renal function with recent PRBC administration. Given this presentation IV Lasix requested. Dolan catheter placed as notable evidence of retention. Cardiac enzymes ordered and as noted elevated above prior repeat EKG with evidence of ischemia and unchanged from prior. Discussed with cardiology and amenable to attempt for heparin drip but will need to potentially hold if recurrent epistaxis. Patient placed on BiPAP with improvement of respiratory distress. Patient was transitioned to the ICU, maintained on BiPAP and as noted heparin drip with bolus with additionally initiation of nitroglycerin drip per cardiology request. Discussed case with teacher asst, Dr. Bolanos. Following transfer recontacted per liner checker and given patient history and concerns requested transfer patient to tertiary facility which was initiated. Primary hospitalist updated on patient care and plan. Patient Problems: Active and Suspected Problems (Last Reviewed 06/11/19 @ 11:12 by Mariaelena Schilling NP-C) Congestive heart failure (Acute) Hyponatremia (Acute) - Physical Exam Vital Signs Temp Pulse Resp BP Pulse Ox 98.4 F 124 H 20 H 132/72 H 100 06/28/19 17:30 06/28/19 17:50 06/28/19 17:50 06/28/19 17:30 06/28/19 17:50 Oxygen Flow Rate (L/min) 3 Oxygen Delivery Method Bi-pap Weight: 170 lb 10.205 oz Body Mass Index (BMI) 27.3 Intake and Output for Last 24 Hours 06/26/19 06/27/19 06/28/19 23:59 23:59 23:59 Intake Total 590 / 590 1070 / 1070 631 / 631 Output Total 2600 / 2600 1050 / 1050 100 / 100 Balance -2009 / 531 / 531 Microbiology Past 72 Hours 06/27/19 21:10 Stool Occult Blood (LEVI) - Final Stool Laboratory Tests Past 24 Hrs 06/28/19 06/28/19 06/28/19 05:36 05:36 07:15 WBC 5.6 RBC 2.55 L Hgb 6.8 L Hct 20.6 L MCV 80.8 MCH 26.7 L MCHC 33.0 RDW Std Deviation 39.2 RDW Coeff of Janel 13.2 Plt Count 246 MPV 11.1 Immature Gran % (Auto) 0.400 Neut % (Auto) 67.7 Lymph % (Auto) 12.9 L [place] % (Auto) 14.4 H Eos % (Auto) 4.1 Baso % (Auto) 0.5 Absolute Neuts (auto) 3.8 Absolute Lymphs (auto) 0.72 L Nucleated RBC % 0 PT INR APTT Specimen Type Sample Site pH Bicarbonate Actual POC Total CO2 Base Excess O2 Saturation O2 % ABG pCO2 ABG pO2 Price Test Respiration Rate O2 Delivery Device EPAP IPAP Blood Gas Notified Whom Blood Gas Notified Time Sodium 133 L Potassium 3.8 Chloride 95 L Carbon Dioxide 30.0 Anion Gap 8 BUN 92 H Creatinine 3.54 H Estim Creat Clear Calc 17.18 Est GFR (MDRD) Af Amer 22 L Est GFR (MDRD) Non-Af 18 L BUN/Creatinine Ratio 26.0 H Glucose 56 L Calcium 8.2 L Troponin I Blood Type O POSITIVE Antibody Screen NEGATIVE Crossmatch 06/28/19 06/28/19 06/28/19 07:15 17:19 17:19 WBC RBC Hgb Hct MCV MCH MCHC RDW Std Deviation RDW Coeff of Janel Plt Count MPV Immature Gran % (Auto) Neut % (Auto) Lymph % (Auto) [place] % (Auto) Eos % (Auto) Baso % (Auto) Absolute Neuts (auto) Absolute Lymphs (auto) Nucleated RBC % PT INR APTT Specimen Type Sample Site pH Bicarbonate Actual POC Total CO2 Base Excess O2 Saturation O2 % ABG pCO2 ABG pO2 Price Test Respiration Rate O2 Delivery Device EPAP IPAP Blood Gas Notified Whom Blood Gas Notified Time Sodium Potassium Chloride Carbon Dioxide Anion Gap BUN Creatinine Estim Creat Clear Calc Est GFR (MDRD) Af Amer Est GFR (MDRD) Non-Af BUN/Creatinine Ratio Glucose 435 H Calcium Troponin I 5.880 H* Blood Type Antibody Screen Crossmatch See Detail 06/28/19 06/28/19 06/28/19 17:19 17:32 18:40 WBC RBC Hgb 9.1 L Hct 27.0 L MCV MCH MCHC RDW Std Deviation RDW Coeff of Janel Plt Count MPV Immature Gran % (Auto) Neut % (Auto) Lymph % (Auto) [place] % (Auto) Eos % (Auto) Baso % (Auto) Absolute Neuts (auto) Absolute Lymphs (auto) Nucleated RBC % PT Pending INR Pending APTT Pending Specimen Type NEHA Sample Site L Radial pH 7.43 Bicarbonate Actual 22.2 POC Total CO2 23 Base Excess -2 O2 Saturation 72 L O2 % 40 ABG pCO2 33.8 L ABG pO2 37 L* Price Test NA Respiration Rate 12 O2 Delivery Device Bi / C PAP EPAP 8 IPAP 12 Blood Gas Notified Whom HOSP Blood Gas Notified Time 1735 Sodium Potassium Chloride Carbon Dioxide Anion Gap BUN Creatinine Estim Creat Clear Calc Est GFR (MDRD) Af Amer Est GFR (MDRD) Non-Af BUN/Creatinine Ratio Glucose Calcium Troponin I Blood Type Antibody Screen Crossmatch POC Glucose 06/28/19 06/28/19 06/28/19 18:04 11:09 07:28 POC Glucose 387 H 389 H 111 H 06/28/19 06/27/19 06:45 22:46 POC Glucose 57 L 286 H Home Medications: Medications to take at Discharge Aspirin E.C. [Ecotrin] 81 mg PO DAILY 01/07/16 brimonidine 0.2 % eye drops 1 drop LEFT EYE DAILY ml 11/15/17 latanoprost 0.005 % eye drops 1 drp OPHTHALMIC QHS ml 11/15/17 timolol 0.5 % eye drops 1 drp OPHTHALMIC BID 11/15/17 cholecalciferol (vitamin D3) 50,000 unit capsule 50,000 unit PO .COMPLEX 11/20/17 fluticasone furoate 200 mcg-vilanterol 25 mcg/dose inhalation powder 1 inh INHALATION DAILY #3 device 01/16/19 Albuterol Sulfate [Ventolin Hfa] 2 puff INHALATION Q6H PRN PRN 06/25/19 Bumetanide 1 mg PO BID 06/25/19 Enalapril Maleate 20 mg PO DAILY 06/25/19 Insulin Lispro [Humalog] 150 units SQ UD 06/25/19 Umeclidinium [place] Inhaler [Incruse Ellipta] 1 inh INHALATION DAILY 06/25/19 Primary Care Physician: Lucas Lozano DO [Primary Care Provider] - Disposition: Acute [facility] Minutes spent on discharge:: 45 Patient Condition:: Critical Medical Necessity - Tobacco Use Smoking Status: Former smoker Tobacco Use: Non-smoker Meaningful Use Info Meaningful Use Diagnoses (Choose all that apply): AMI, CHF - AMI Aspirin given w/in 24hrs of arrival?: Yes ASA at discharge?: Yes Statins at discharge?: Yes Fabrice/ARB at discharge?: No Reason Fabrice/ARB not ordered:: Worsening renal disease Beta Antonette at discharge?: Yes Done w/ Acute CO measure.: Yes Documented LVEF (%): 55 - CHF FABRICE/ARB ordered at discharge?: No Reason FABRICE/ARB not ordered?: Worsening renal disease Documented LVEF (%): 55 Code Visit Inpatient E&M: 17024 Disch Hosp
[2019-06-28] MEDS: Nitroglycerin Infusion 250 ML 3 MG CONT INF (18:52)
[2019-06-28 18:53] LABS: International Normalized Ratio 1.1; Prothrombin Time (Protime)PT. 13.9 SECONDS (11.7-14.9)
[2019-06-28] MEDS: Heparin Injection (Vial) 5,000 UNIT/ML VIAL 5000 UNIT IV (19:29)
[2019-06-28] MEDS: HEPARIN/D5w 25,000 UNITS 25,000 UNITS/250 ML IV.SOLN. 11 UNITS IV (19:35)
[2019-06-28 19:51] LABS: Bedside Glucose 359 mg/dL (70-110)
--- NOTE | 2019-06-28 20:15 | NURSING ---
Dr. Murry updated on b/p drop and nitro gtt stopped. Also pt had a moderate dark tarry stool. Heparin gtt stopped. Dr. Murry now wanting pt to be transported via air.
[2019-06-28] MEDS: Ondansetron 4 MG/2 ML Vial IV (20:33)
--- NOTE | 2019-06-28 21:18 | NURSING ---
Pt being transported out of facility accompanied by [facility] and family.
[2019-06-29 10:56] LABS: PSA, Free 0.18 ng/mL; PSA, Free % 22.5 % (.); PSA, Total Ultrasensitive 0.8 ng/mL (0.0-4.0)
[2019-06-30 14:11] LABS: Bedside Glucose 427 mg/dL (70-110)
[2019-06-30 14:11] LABS: Bedside Glucose 491 mg/dL (70-110)
== END 2019-06-28 21:18 | disposition short-term general hospital (02) | DRG 280 ==
LOC: ED 15:00 → PCU 16:28 → ICU 06-28 18:13 → PCU 06-28 18:17
PROVIDERS: Internal Medicine Nephrology; Nurse Practitioner Family; Admitting Provider Family Medicine; Emergency Provider Emergency Medicine; Family Provider Family Medicine; PCP Family Medicine
DX: I13.0 Hypertensive heart and chronic kidney disease with heart failure and stage 1 through stage 4 chronic kidney disease, or unspecified chronic kidney disease (principal); I50.31 Acute diastolic (congestive) heart failure; I21.A1 Myocardial infarction type 2; J96.21 Acute and chronic respiratory failure with hypoxia; E87.1 Hypo-osmolality and hyponatremia; N17.9 Acute kidney failure, unspecified; D62 Acute posthemorrhagic anemia; Z96.41 Presence of insulin pump (external) (internal); E10.22 Type 1 diabetes mellitus with diabetic chronic kidney disease; R04.0 Epistaxis; E78.5 Hyperlipidemia, unspecified; J44.9 Chronic obstructive pulmonary disease, unspecified; Z99.81 Dependence on supplemental oxygen; Z79.4 Long term (current) use of insulin; Z87.891 Personal history of nicotine dependence; Z85.46 Personal history of malignant neoplasm of prostate; N18.3 Chronic kidney disease, stage 3 (moderate); D63.8 Anemia in other chronic diseases classified elsewhere
CPT/HCPCS: 36415; 71045; 76770; 80048; 80061; 82274; 82570; 82607; 82728; 82746; 82803; 82947; 82962; 83036; 83540; 83550; 83735; 83880; 84153; 84154; 84300; 84443; 84484; 85014; 85018; 85025; 85027; 85610; 85730; 86850; 86900; 86901; 86920; 86922; 93005; 93306; 94002; 94640; 97110; 97162; 97166; 97530; 97802; 99285; J1756; J7040; P9016; Q9957; A4216; J1940; J2405

== ENCOUNTER → 2019-09-29 10:40 | Outpatient (CLI) | payer MEDICARE, BC, SELFPAY ==
[2019-08-06 09:48] VITALS: BMI 25.5
[2019-09-21 17:17] VITALS: BMI 25.5
--- NOTE | 2019-10-01 09:52 | STRESSREP ---
Stress Test Report Procedure: MUGA scan Date of procedure: 09/29/2019 Conclusions: Ejection fraction by MUGA scan is 42%.
== END ==
PROVIDERS: Family Provider Family Medicine; PCP Family Medicine; Referring Provider Specialist; Visit Provider Specialist
DX: I25.5 Ischemic cardiomyopathy (principal)
CPT/HCPCS: 78472; A9560

== ENCOUNTER → 2019-10-20 11:20 | Outpatient (CLI) | payer MEDICARE, BC, SELFPAY ==
[2019-10-01 11:02] VITALS: BMI 25.5
[2019-10-20 13:14] LABS: PSA,Total- Diagnostic 0.76 ng/mL (0.0-4.0)
== END ==
PROVIDERS: Family Provider Student in an Organized Health Care Education/Training Program; PCP Student in an Organized Health Care Education/Training Program; Referring Provider Urology; Visit Provider Urology
DX: R97.20 Elevated prostate specific antigen [PSA] (principal)
CPT/HCPCS: 36415; 84153

== ENCOUNTER 2020-02-03 11:29 | Inpatient (IN) | payer MEDICARE, BC, SELFPAY ==
[2019-12-29 13:21] VITALS: BMI 25.5
[2020-02-03] VITALS (20 sets, daily range): BP systolic 102–167; BP diastolic 44–84; PULSE 70–104; RESP 12–247; TEMP 36.6–37.2; O2SAT 96–100; BMI 26.4; BMI 25.8
--- NOTE | 2020-02-03 11:43 | EKG12_ITS ---
Test Reason : SOB Blood Pressure : / mmHG Vent. Rate : 085 BPM Atrial Rate : 085 BPM P-R Int : 206 ms QRS Dur : 104 ms QT Int : 412 ms P-R-T Axes : 066 -35 112 degrees QTc Int : 490 ms Normal sinus rhythm Left axis deviation ST & T wave abnormality, consider lateral ischemia Prolonged QT Abnormal ECG Confirmed by JUAN SPAULDING, TD ([id number]), editor continuity and script MUNA HASSAN ([id number] on 02/05/2020 1:31:35 PM Referred By: Lisa Perez Confirmed By:TD MARTINEZ MD
--- NOTE | 2020-02-03 11:43 | RAD_ITS ---
STUDY: X-RAY CHEST REASON FOR EXAM: Male, 75 years old. SOB TECHNIQUE: Single AP portable view of the chest. COMPARISON: Comparison is made with prior examination dated June 28, 2019. FINDINGS: EKG electrodes are seen. Since prior study, there is evidence of vascular congestion and mild CHF superimposed on chronic increased interstitial markings at the lung bases. Blunting of both costophrenic angles. Normal size heart. Normal mediastinum and jessica. Normal visualized pulmonary arteries. There is atherosclerotic calcification of the aortic arch with tortuosity. There are diffuse degenerative changes of the visualized thoracic spine. Normal visualized ribs, clavicles, and shoulders. There is no demonstrated abnormality of the visualized soft tissue structures of the upper abdomen. RAD/Chest 1 View (Portable) IMPRESSION: Findings in keeping with CHF superimposed on chronic basilar scarring with small bilateral effusions. Electronically Signed: Fabricio Shah, at 12:39 EDT , Service support ,
--- NOTE | 2020-02-03 11:45 | ED.DCSUM_ITS ---
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 Patient reports worsening shortness of breath today. History of COPD chronic 4 L of oxygen. Denies cough or chest pain. Denies fever myalgias. Denies abdominal pain nausea vomiting diarrhea. I spoke with EMS for med control, reported he was tripoding however he was not hypoxic he was not improving after DuoNeb treatment. His O2 was stable on his home oxygen. Was told to give Solu-Medrol and placed on CPAP due to tripoding. He was brought to the ED stating he is feeling better with the CPAP. He does not wear this at home. Prior similar symptoms: Yes Past Medical History - Allergies and Home Meds Allergies/Adverse Reactions: Allergies budesonide Allergy (Severe, Verified 12/29/19 13:20) Other - can't breathe amoxicillin [From Augmentin] Allergy (Unknown, Verified 12/29/19 13:20) Unknown clavulanic acid [From Augmentin] Allergy (Unknown, Verified 12/29/19 13:20) Unknown Sulfa (Sulfonamide Antibiotics) Allergy (Unknown, Verified 12/29/19 13:20) Unknown Primary Care Physician: Chance Merida DO [NON-STAFF] - Past Medical History: - - Hypertension, hyperlipidemia, diabetes, coronary disease, COPD on 4 L of oxygen, ischemic cardiomyopathy Surgical History: appendectomy, cataract, - - foot surgery, carpal tunnel Smoking Status: Former smoker - Family History Maternal Family History: Family History (Last Reviewed 12/30/19 @ 07:[address] Yuan Heredia MD) Sister Diabetes Father Heart disease Family History: Reports: No pertinent history Paternal Family History: Family History (Last Reviewed 12/30/19 @ 07:[address] Yuan Heredia MD) Sister Diabetes Father Heart disease Family History: Reports: Heart Disease Review of Systems General: Denies: Chills, Fever, Sweats Eyes: Denies: Visual changes - bilaterally, Diplopia ENT: Denies: Rhinorrhea, Sore throat Cardiovascular: Denies: Chest pain, Palpitations Respiratory: Reports: Dyspnea. Denies: Cough, Dyspnea on exertion Gastrointestinal: Denies: Abdominal pain, Nausea, Vomiting, Diarrhea, Melena, Hematochezia Genitourinary: Denies: Dysuria, Hematuria, Frequency Musculoskeletal: Denies: Back pain, Extremity Pain Skin: Denies: Rash, Wounds Neurological: Denies: Headache, Weakness, Numbness Physical Exam Vital Signs/Narrative: Vital Signs Temp Pulse Resp BP Pulse Ox 02/03/20 11:34 97.9 F 96 24 H 167/84 H 97 02/03/20 11:30 97.9 F 104 H 247 H 167/84 H 97 Inital Vital Signs reviewed: Yes General: Well nourished, Well developed, - - On CPAP Head: Normocephalic, Atraumatic Eyes: EOMI ENT: - - Children Neck: Supple, Nontender Cardiovascular: Regular rate, Regular rhythm, No murmurs, - - Heart rate 96 on the monitor during evaluation Respiratory: Chest nontender, - - Mild rhonchi lower lobes Abdomen: Soft, Nontender, Nondistended, Normal bowel sounds Back: Nontender, Normal Inspection Extremities: Nontender, Edema - Letter Skin: Normal color, No rash Neurological: Alert, Oriented x3, Cranial nerves II-XII grossly intact, Normal Strength, Normal Sensation Psychological: Normal affect, Normal Mood Diagnostic/Tx/Re-eval Clinical Impression(s) from Imaging Studies Chest X-Ray 02/03/20 11:43 IMPRESSION: Findings in keeping with CHF superimposed on chronic basilar scarring with small bilateral effusions. Electronically Signed: Fabricio Shah, at 12:39 EDT , Service support , Abnormal Lab Results 02/03/20 02/03/20 02/03/20 11:35 11:35 11:35 WBC 11.8 H RBC 3.11 L Hgb 8.8 L Hct 28.2 L MCV 90.7 MCH 28.3 MCHC 31.2 L RDW Std Deviation 43.0 RDW Coeff of Janel 13.1 Plt Count 314 MPV 11.1 Immature Gran % (Auto) 0.600 Neut % (Auto) 83.8 H Lymph % (Auto) 5.9 L [place] % (Auto) 7.2 Eos % (Auto) 2.0 Baso % (Auto) 0.5 Absolute Neuts (auto) 9.9 H Absolute Lymphs (auto) 0.70 L Nucleated RBC % 0 PT 13.9 INR 1.1 APTT 34.6 Specimen Type Sample Site pH Bicarbonate Actual POC Total CO2 Base Excess O2 Saturation O2 % ABG pCO2 ABG pO2 Price Test O2 Delivery Device EPAP IPAP Blood Gas Notified Whom Blood Gas Notified Time Sodium 135 L Potassium 4.5 Chloride 94 L Carbon Dioxide 33.0 H Anion Gap 8 BUN 67 H Creatinine 3.07 H Estim Creat Clear Calc 19.50 Est GFR (MDRD) Af Amer 26 L Est GFR (MDRD) Non-Af 21 L BUN/Creatinine Ratio 21.8 H Glucose 206 H Lactic Acid Calcium 8.4 L Total Bilirubin Direct Bilirubin AST ALT Alkaline Phosphatase Troponin I 0.146 H B-Natriuretic Peptide Total Protein Albumin Globulin 02/03/20 02/03/20 02/03/20 11:35 11:35 11:35 WBC RBC Hgb Hct MCV MCH MCHC RDW Std Deviation RDW Coeff of Janel Plt Count MPV Immature Gran % (Auto) Neut % (Auto) Lymph % (Auto) [place] % (Auto) Eos % (Auto) Baso % (Auto) Absolute Neuts (auto) Absolute Lymphs (auto) Nucleated RBC % PT INR APTT Specimen Type Sample Site pH Bicarbonate Actual POC Total CO2 Base Excess O2 Saturation O2 % ABG pCO2 ABG pO2 Price Test O2 Delivery Device EPAP IPAP Blood Gas Notified Whom Blood Gas Notified Time Sodium Potassium Chloride Carbon Dioxide Anion Gap BUN Creatinine Estim Creat Clear Calc Est GFR (MDRD) Af Amer Est GFR (MDRD) Non-Af BUN/Creatinine Ratio Glucose Lactic Acid 1.8 Calcium Total Bilirubin 0.70 Direct Bilirubin 0.18 AST 31 ALT 41 Alkaline Phosphatase 131 H Troponin I B-Natriuretic Peptide 426.7 H Total Protein 8.1 Albumin 3.4 Globulin 4.7 H 02/03/20 12:20 WBC RBC Hgb Hct MCV MCH MCHC RDW Std Deviation RDW Coeff of Janel Plt Count MPV Immature Gran % (Auto) Neut % (Auto) Lymph % (Auto) [place] % (Auto) Eos % (Auto) Baso % (Auto) Absolute Neuts (auto) Absolute Lymphs (auto) Nucleated RBC % PT INR APTT Specimen Type ART Sample Site R RADIAL pH 7.39 Bicarbonate Actual 28.0 H POC Total CO2 29 Base Excess 3 H O2 Saturation 95 O2 % 25 ABG pCO2 45.9 H ABG pO2 78 Price Test POS O2 Delivery Device Bi Pap EPAP 8 IPAP 14 Blood Gas Notified Whom ED Blood Gas Notified Time 1225 Sodium Potassium Chloride Carbon Dioxide Anion Gap BUN Creatinine Estim Creat Clear Calc Est GFR (MDRD) Af Amer Est GFR (MDRD) Non-Af BUN/Creatinine Ratio Glucose Lactic Acid Calcium Total Bilirubin Direct Bilirubin AST ALT Alkaline Phosphatase Troponin I B-Natriuretic Peptide Total Protein Albumin Globulin - EKG Initial EKG Interpretation: Sinus Rhythm - Sinus rate of 85, slight ST depressions V4 V5 there is no elevations, T wave inversions 1 and aVL. Previous EKG seen T wave inversions however there is more significant ST depressions previously on lateral leads. Compared to EKG in June 28, 2019. - Medical Decision Making Patient was feeling better on the CPAP, I did attempt to take him off and place him on high flow oxygen however per respiratory he had worsening shortness of breath, he was never hypoxic. He was placed back on a BiPAP ABG normal pH, PaO2 in the 70s at 25%. Clinically was feeling better. Work-up initiated chest x- ray pulmonary congestion mild effusion no infiltrates. BNP in the 400s. EKG noted slight ST depressions have improved from previous. Troponin 0 0.147. He has no chest pain. He took his aspirin and Plavix this morning. Labs noted chronic anemia and CKD. I was able to pull records from [employer], and reviewed records from the system in June he was admitted for similar, he developed chest pain in the hospital troponin bumped up to 5 there was recommendations to transfer where he went [facility], cath report was obtained noted he had 3 stents placed 2 in the LAD 1 in the left circumflex, he had 100% occlusion of right RCA he was not a CABG candidate with discussion from cardiothoracic team there. He had short-term dialysis from there currently none at this time. Obtaining records and medicines from the by nursing did not see he is on a diuretic nor from a recent cardiology follow-up report in November however reports he takes it twice a day at home with no missed doses. He does have mild lower extremity edema, with him requiring BiPAP, I spoke with hospitalist Dr. Perez, would like Lasix 40 mg IV and he will be placed in the PCU. 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 Diagnosis: Acute respiratory failure, COPD (chronic obstructive pulmonary disease), CHF exacerbation, CKD (chronic kidney disease), Anemia, Elevated troponin Referrals: Chance Merida DO [NON-STAFF] -
[2020-02-03 12:03] LABS: Absolute Neutrophil Count 9.9 X10^3/uL (2.0-7.7); Basophil# 0.06 X10^3/uL; Basophil% 0.5 % (0-1); Eosinophil# 0.24 X10^3/uL; Hematocrit 28.2 % (40-54); Hemoglobin 8.8 g/dL (13.0-16.5); Lymphocyte % 5.9 % (19-41); Mean Corp Hgb Conc 31.2 g/dL (32-36); Mean Corpuscular Hgb 28.3 pg (27.0-32.0); Mean Corpuscular Volume 90.7 fL (80-94); Mean Platelet Vol. 11.1 fl (6.2-12.0); Monocyte# 0.85 X10^3/uL; Monocyte% 7.2 % (0-10); NRBC Flagged by Analyzer 0 % (0-5); Neutrophil # 9.86 X10^3/uL (2.7-7.7); Neutrophil % 83.8 % (47-70); Platelet Count 314 K/mm3 (150-450); RBC Distribution Width CV 13.1 % (11.6-14.6); Red Blood Count 3.11 M/mm3 (4.6-6.2); White Blood Count 11.8 K/mm3 (4.4-11.0)
[2020-02-03] MEDS: Ipratropium/Albuterol Sulfate 3 ML AMPUL.NEB INHALATION ×4 (12:04→22:40)
[2020-02-03 12:16] LABS: International Normalized Ratio 1.1; Prothrombin Time (Protime)PT. 13.9 SECONDS (11.7-14.9)
[2020-02-03 12:17] LABS: Partial Thromboplast Time 34.6 Seconds (24.1-36.2)
[2020-02-03 12:25] LABS: Anion Gap 8 (5-15); BUN 67 mg/dL (7-18); BUN/Creat Ratio 21.8 RATIO (10-20); Calcium,Total 8.4 mg/dL (8.5-10.1); Chloride 94 mmol/L (98-107); Creatinine, Serum 3.07 mg/dL (0.70-1.30); EST Glomerular Filtration Rate 21 mL/min (>60); Est Glom Filt Rate - Afr Amer 26 mL/min (>60); Glucose 206 mg/dL (74-106); Lactic Acid 1.8 mmol/L (0.4-1.9); Potassium 4.5 mmol/L (3.5-5.1); Sodium Level 135 mmol/L (136-145)
[2020-02-03 12:28] LABS: BNP,B-Type NATRIURETIC PEPTIDE 426.7 pg/mL (0-100)
[2020-02-03 12:35] LABS: AST(SGOT) 31 U/L (15-37); Alanine Aminotransfer ALT/SGPT 41 U/L (16-61); Albumin, Serum 3.4 g/dL (3.2-5.0); Alkaline Phosphatase 131 U/L (45-117); Bilirubin, Direct 0.18 mg/dL (0.00-0.30); Globulin 4.7 g/dL (2.2-4.2); Protein, Total 8.1 g/dL (6.4-8.2)
[2020-02-03 13:01] LABS: Base Excess 3 mmol/L (-2 to +2); PO2 78 mmHG (75-100); SO2 95 % (95-99); Total Carbon Dioxide 29 mmol/L; pCO2 45.9 mmHg (35-45); pH 7.39 (7.35-7.45)
--- NOTE | 2020-02-03 13:01 | HP.PCM_ITS ---
History of Present Illness Date of Admission: 02/03/20 Chief Complaint: shortness of breath The patient is a 75 year old M with a PMH as outlined who was admitted with a complaint of shortness which started acutely on the morning of 02/03/2020/ He had no associated fever or chills and denied any chest pain or palpitations or dizziness. He denied any assisted orthopnea or PND but did admit to lower extremity swelling and denied any contact with any patient with covid patient. On admission, RR was initially 24, and Temp was 97.9F, with pulse rate of 96. He was saturating at 97% but was tachypneic and required BiPAP. Chemistry showed sodium of 135 with bicarb of 33 and creatinine of 3.07. Initial troponin was 0.146 and BNP was 426.7. CBC showed wbc of 11.8, with hemoglobin of 8.8. Chest x-ray showed evidence of CHF superimposed on chronic basilar scarring with small bilateral effusions. He has been admitted to manage for acute on chronic exacerbation of heart failure with preserved ejection fraction and probable COPD exacerbation. [] Past Medical History Past Medical History (Chronic Problems): Chronic Problems (Last Reviewed 12/30/19 @ 07:[address] Yuan Heredia MD) CHF exacerbation (Chronic) CKD (chronic kidney disease) (Chronic) Insulin pump titration (Chronic) Diabetes mellitus (Chronic) Paroxysmal atrial fibrillation (Chronic 06/2019) Acute systolic (congestive) heart failure (Chronic) Ischemic cardiomyopathy (Chronic) NSVT (nonsustained ventricular tachycardia) (Chronic) Atherosclerosis of coronary artery of [place] heart without angina pectoris (Chronic) [id number] and Mid LAD, GLADYS-Prox LCx into OM1; LIGHTING DIRECTOR Mid RCA w/ Left-Right Septal Collaterals to RPDA 06/29/19 (HFpEF) heart failure with preserved ejection fraction (Chronic) Hyperlipidemia (Chronic) Essential (primary) hypertension (Chronic) Mobitz type I Wenckebach atrioventricular block (Chronic) Incomplete right bundle branch block (Chronic) Pulmonary nodule (Chronic) Chronic hypoxemic respiratory failure (Chronic) COPD (chronic obstructive pulmonary disease) (Chronic) Medical History: Medical History (Last Reviewed 12/30/19 @ 07:[address] Yuan Heredia MD) Paroxysmal atrial fibrillation (Chronic) Onset Date: 06/2019 I48.0 Acute systolic (congestive) heart failure (Chronic) I50.21 Ischemic cardiomyopathy (Chronic) I25.5 NSVT (nonsustained ventricular tachycardia) (Chronic) I47.2 Atherosclerosis of coronary artery of [place] heart without angina pectoris (Chronic) I25.10 [id number] and Mid LAD, GLADYS-Prox LCx into OM1; LIGHTING DIRECTOR Mid RCA w/ Left-Right Septal Collaterals to RPDA 18 (HFpEF) heart failure with preserved ejection fraction (Chronic) I50.30 Hyperlipidemia (Chronic) E78.5 Essential (primary) hypertension (Chronic) I10 Mobitz type I Wenckebach atrioventricular block (Chronic) I44.1 History of non-ST elevation myocardial infarction (NSTEMI) (Resolved) Onset Date: 06/25/19 I25.2 Incomplete right bundle branch block (Chronic) I45.10 Pulmonary nodule (Chronic) R91.1 Chronic hypoxemic respiratory failure (Chronic) J96.11 COPD (chronic obstructive pulmonary disease) (Chronic) J44.9 Chronic steroid use Dialysis patient Z99.2 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 E10.649 Hyponatremia E87.1 Overweight E66.3 Pedal edema R60.0 Allergic rhinitis J30.9 Anemia D64.9 Anemia D64.9 Benign localized hyperplasia of prostate N40.0 CKD (chronic kidney disease) stage 4, GFR 15-29 ml/min N18.4 On dialysis COPD (chronic obstructive pulmonary disease) J44.9 Carpal tunnel syndrome G56.00 Chronic allergic rhinitis J30.9 Chronic otitis media H66.90 Epistaxis R04.0 Former smoker Z87.891 GERD (gastroesophageal reflux disease) K21.9 GI bleed Onset Date: 06/28/19 K92.2 History of prostate cancer Z85.46 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 Z79.4 Low back pain M54.5 Neuralgia M79.2 Nonallopathic lesion of lumbar region M99.9 Nonallopathic lesion of rib cage M99.9 Nonallopathic lesion of sacral region M99.9 Nonallopathic lesion of thoracic region, not elsewhere classified M99.9 Otalgia H92.09 Otitis externa H60.90 PVD (peripheral vascular disease) I73.9 Pain in lower limb M79.606 Peripheral vascular insufficiency I73.9 Thoracic back pain M54.6 Thoracic outlet syndrome G54.0 Type I diabetes mellitus E10.9 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 Constipation K59.00 Serous otitis media H65.90 Wax in ear H61.20 Reactive airway disease J45.909 Allergies budesonide Allergy (Severe, Verified 12/29/19 13:20) Other - can't breathe amoxicillin [From Augmentin] Allergy (Unknown, Verified 12/29/19 13:20) Unknown clavulanic acid [From Augmentin] Allergy (Unknown, Verified 12/29/19 13:20) Unknown Sulfa (Sulfonamide Antibiotics) Allergy (Unknown, Verified 12/29/19 13:20) Unknown Home Medications: Ambulatory Orders Medication Instructions Recorded latanoprost 0.005 % eye drops 1 drp OPHTHALMIC QHS ml 11/15/17 albuterol sulfate 90 mcg/actuation 2 puff INHALATION Q6H PRN PRN #18 g 08/05/19 aerosol inhaler aspirin 81 mg tablet,delayed 81 mg PO DAILY #90 tab 08/06/19 release atorvastatin 80 mg tablet 80 mg PO QHS #90 tab 08/06/19 clopidogrel 75 mg tablet 75 mg PO DAILY #90 tab 08/06/19 hydralazine 25 mg tablet 25 mg PO TID #270 tab 08/06/19 isosorbide mononitrate 30 mg 30 mg PO DAILY #90 tab 08/06/19 tablet,extended release 24 hr metoprolol succinate 25 mg 12.5 mg PO DAILY #60 tab 08/06/19 tablet,extended release 24 hr insulin lispro 100 unit/mL See Rx Instructions SC DAILY ml 09/12/19 subcutaneous solution brimonidine 0.2 % eye drops 1 drp OPHTHALMIC BID ml 10/01/19 timolol 0.5 % eye drops 1 drp OPHTHALMIC DAILY ml 10/01/19 blood sugar diagnostic See Rx Instructions .ROUTE 11/24/19 .MEDSUPPLY #150 ea fluticasone furoate 200 1 inh INHALATION DAILY #3 device 01/26/20 mcg-vilanterol 25 mcg/dose inhalation powder umeclidinium 62.5 mcg/actuation 1 inh INHALATION DAILY #3 ea 01/26/20 blister powder for inhalation Ergocalciferol (Vitamin D2) 50,000 unit PO QWEEK 02/03/20 [Vitamin D2] Insulin Lispro [Humalog] See Protocol SQ DAILY 02/03/20 Surgical History: Surgical History (Last Reviewed 12/30/19 @ 07:[address] Yuan Heredai MD) History of coronary artery stent placement (Resolved) Onset Date: 06/29/19 Z95.5 PCI-GLADYS-Mid LAD w/ 3.5 x 18 mm Xience Isabel Stent, Prox LAD w/ 3.5 x 33 mm Xience Isabel Stent, GLADYS-Prox LCx into OM1 w/ 3.0 x 38 mm Xience Isabel Stent; LIGHTING DIRECTOR Mid RCA w/ Left-Right Septal Collaterals to RPDA 06/29/19 H/O inguinal hernia repair Z98.890, Z87.19 Left; Dr. Osuna H/O prostate biopsy Z98.890 Dr. Hernandez History of appendectomy Z98.890, Z90.49 History of carpal tunnel surgery of left wrist Z98.890 S/P bilateral foot surgery Z98.890 S/P rotator cuff repair Z98.890 right Surgical History: appendectomy, cataract, - - foot surgery, carpal tunnel Psychiatric History: No pertinent psych hx Smoking Status: Former smoker - *Family History Maternal Family History: Family History (Last Reviewed 12/30/19 @ 07:[address] Yuan Heredia MD) Sister Diabetes Father Heart disease History Items: No pertinent history Paternal Family History: Family History (Last Reviewed 12/30/19 @ 07:[address] Yuan Heredia MD) Sister Diabetes Father Heart disease History Items: Heart Disease Review of Systems Constitutional: Denies: Anorexia, Chills, Fever, Malaise, Weakness Eyes: Denies: Blurred vision HEENT: Denies: Head Aches, Sinus Congestion, Sinus Drainage Cardiovascular: Reports: Edema. Denies: Chest Pain, Chest Pressure, Chest Tightness, Light Headedness, Orthopnea, Palpitations, Paroxysmal Noc. Dyspnea, Syncope Respiratory: Reports: Shortness of breath at rest, Shortness of breath upon exertion. Denies: Cough, Pleuritic Pain, Shortness of Breath, Sputum production, Wheezing Gastrointestinal: Denies: Abdominal Pain, Nausea, Vomiting Genitourinary: Denies: Dysuria Musculoskeletal: Denies: Joint Pain, Joint Tenderness Skin: Denies: Rash, Wounds Neurological: Denies: Numbness, Tingling, Focal weakness Psychiatric: Denies: Anxiety, Depression, Homicidal Ideations, Suicidal Ideations Hematologic/ Lymphatic: Denies: Easy Bruising, Easy Bleeding VTE Information - Inpt Only VTE Present on Admission: No VTE Pharm Prophylaxis ordered?: Yes Patient Problems: Active and Suspected Problems (Last Reviewed 12/30/19 @ 07:[address] Yuan Heredia MD) Acute respiratory failure (Acute) Anemia (Acute) Elevated troponin (Acute) - Physical Exam Vitals/I&O's: Vital Signs Temp Pulse Resp BP Pulse Ox 98.5 F 96 17 167/84 H 99 02/03/20 12:20 02/03/20 11:34 02/03/20 12:04 02/03/20 11:34 02/03/20 12:04 Oxygen Delivery Method Bi-pap Weight: 174 lb 2.643 oz Body Mass Index (BMI) 26.4 General: Alert, Oriented x3, Cooperative, No apparent distress HEENT: Atraumatic, PERRLA, EOMI, Normocephalic Oral: Moist Mucosa Neck: Supple, No JVD, Negative Carotid Bruits Lungs: - - diminished breath sounds bibasally, on BIPAP Cardiovascular: Regular rate, Regular Rhythm, Normal S1, Normal S2, No murmurs Abdomen: Bowel Sounds Present, Soft, Non Tender, Non-Distended, No Hepato- splenomegaly Extremities: No clubbing, No cyanosis, No edema, Capillary Refill Less than 3 Seconds Skin: No rashes, No breakdown Musculoskeletal: No Tenderness to Palpation of Joints or Extremities Lymphatic: No Cervical, Supraclavicular, or Inguinal Adenopathy Neurological: Cranial nerves II-XII grossly intact, Neuro grossly intact, Motor Exam 5/5 strength throughout Psych/Mental Status: Normal Affect, Appropriate, Alert and oriented to time, place, person, mood and affect Microbiology Past 72 Hours 02/03/20 12:00 Mucosa - Nose Rapid RSV (DFA) - Final 02/03/20 12:00 Mucosa - Nose Influenza Types A,B Direct FA (LEVI) - Final Laboratory Results 02/03/20 11:35: WBC 11.8 H, RBC 3.11 L, Hgb 8.8 L, Hct 28.2 L, MCV 90.7, MCH 28.3, MCHC 31.2 L, RDW Std Deviation 43.0, RDW Coeff of Janel 13.1, Plt Count 314, MPV 11.1, Immature Gran % (Auto) 0.600, Neut % (Auto) 83.8 H, Lymph % (Auto) 5.9 L, [place] % (Auto) 7.2, Eos % (Auto) 2.0, Baso % (Auto) 0.5, Absolute Neuts (auto) 9.9 H, Absolute Lymphs (auto) 0.70 L, Nucleated RBC % 0 02/03/20 11:35: Sodium 135 L, Potassium 4.5, Chloride 94 L, Carbon Dioxide 33.0 H, Anion Gap 8, BUN 67 H, Creatinine 3.07 H, Estim Creat Clear Calc 19.50, Est GFR (MDRD) Af Amer 26 L, Est GFR (MDRD) Non-Af 21 L, BUN/Creatinine Ratio 21.8 H , Glucose 206 H, Calcium 8.4 L, Troponin I 0.146 H 02/03/20 11:35: PT 13.9, INR 1.1, APTT 34.6 02/03/20 11:35: Lactic Acid 1.8 02/03/20 11:35: Total Bilirubin 0.70, Direct Bilirubin 0.18, AST 31, ALT 41, Alkaline Phosphatase 131 H, Total Protein 8.1, Albumin 3.4, Globulin 4.7 H 02/03/20 11:35: B-Natriuretic Peptide 426.7 H 02/03/20 12:20: pH Pending, Bicarbonate Actual Pending, POC Total CO2 Pending, Base Excess Pending, O2 Saturation Pending, ABG pCO2 Pending, ABG pO2 Pending Diagnostic Data Chest X-Ray 02/03/20 11:43 IMPRESSION: Findings in keeping with CHF superimposed on chronic basilar scarring with small bilateral effusions. Electronically Signed: Fabricio Shah, at 12:39 EDT , Service support , Assessment/Plan All Active Problems (Last Reviewed 12/30/19 @ 07:[address] Yuan Hereida MD) Acute respiratory failure (Acute) Anemia (Acute) Elevated troponin (Acute) Mitral regurgitation (Acute) Aortic stenosis (Acute) Acute blood loss anemia (Acute) History of coronary artery stent placement (Resolved 06/29/19) History of non-ST elevation myocardial infarction (NSTEMI) (Resolved 06/25/19) Acute kidney injury superimposed on chronic kidney disease (Resolved) Shortness of breath (Resolved) 75 y/o admitted with a complaint of shortness of breath 1. Acute on chronic HFrEF * admit to PCu with telemetry * BNP was 427, and CXR showed evidence of CHF with small bilateral effusions * EKG showed no acute st changes, but showed slight ST depressions present on previous EKGs * 2D echo: EF of 31%, with moderate diffuse hypokinesis * start IV lasix 40mg bid * monitor intake and output; fluid restriction to 1500cc daily * trend troponins * wean off BiPAP as tolerated to maintain saturation above 90%. * Blood gas was pH of 7.39 with bicarb of 28 and PCO2 of 45.9. * 2. Acute on chronic exacerbation of COPD * Influenza and RSV screen were negative. Patient is low suspicion for CO VID 19 as he has not had a fever or exposure to anybody with Covid 19. * Will check respiratory panel. * IV Solu-Medrol 40 mg every 8. Breathing treatments with bronchodilators. * Wean off of BiPAP as tolerated. on baseline 4L of oxygen at home 3. Acute on chronic hypoxic respiratory failure * as under 1 and 2 4. CAD s/p stents * had 2 stents placed in LAD and one in left circumflex at [facility] in June 2019; he had total occlusion of RCA, but was not thought to be a candidate for CABG * on aspirin and plavix. * 5. CKD 4: CR is 3, which is around his baseline. Will monitor Cr as he is being diuresed with IV lasix. 6. Type 2 diabetes mellitus * on ISS. Accuchecks ACHS. * * DVT prophylaxis: lovenox renally dosed Code status: full code. * Patient counseled extensively about different types of CODE STATUS including full code, DNR CCA and DNR CCA. Patient elects to be full code. Total [id number] time 16 minutes. Inpatient E&M: 70118 Init Hosp L3 Procedures: 69489 Advncd Care Plan 30 Min
[2020-02-03 13:04] LABS: Allen Test POS; Blood Gas Specimen Type ART; FI02 25; O2 Delivery Device Bi Pap; SITE R RADIAL
[2020-02-03 13:05] LABS: EPAP 8; IPAP 14; Time Given 1225
[2020-02-03] MEDS: Furosemide 40 MG/4 ML Vial IV ×2 (13:27→17:10)
[2020-02-03 14:21] LABS: Bedside Glucose 141 mg/dL (70-110)
[2020-02-03 16:40] LABS: Bedside Glucose 136 mg/dL (70-110)
--- NOTE | 2020-02-03 16:47 | NURSING ---
This RN called pt's home phone number of [phone] to obtain verification of home medication list. No answer, message left.
[2020-02-03] MEDS: CLARIFY ORDER NOTE ×3 (17:10→17:11)
[2020-02-03] MEDS: 0.9% Saline Lock 10 ML Syringe IV (17:10)
[2020-02-03] MEDS: hydrALAZINE 25 MG Tablet PO (21:07)
[2020-02-03] MEDS: Atorvastatin Calcium 80 MG Tablet PO (21:07)
[2020-02-03] MEDS: BRIMONIDINE 0.2% 5ML BOTTLE 1 DRP LEFT EYE (21:07)
[2020-02-03] MEDS: guaiFENesin 1,200 MG Tablet 1200 MG PO (21:07)
[2020-02-03] MEDS: Latanoprost 0.005% 1 Bottle 1 DRP EACH EYE (21:17)
[2020-02-03 21:45] LABS: Bedside Glucose 228 mg/dL (70-110)
[2020-02-03] MEDS: Sodium Chloride 0.65% 1 SPRAY SPRAY.BTL 2 SPRAY NASAL (23:44)
[2020-02-04] VITALS (30 sets, daily range): BP systolic 113–143; BP diastolic 58–70; PULSE 61–89; RESP 12–24; TEMP 36.6–37.7; O2SAT 93–100
[2020-02-04] MEDS: Ipratropium/Albuterol Sulfate 3 ML AMPUL.NEB INHALATION ×6 (03:07→22:06)
[2020-02-04 03:16] LABS: Bedside Glucose 332 mg/dL (70-110)
[2020-02-04 05:10] LABS: Absolute Lymphocyte Count 0.19 X10^3/uL (0.83-4.51); Absolute Neutrophil Count 5.1 X10^3/uL (2.0-7.7); Basophil# 0.01 X10^3/uL; Basophil% 0.2 % (0-1); Hematocrit 21.5 % (40-54); Hemoglobin 6.9 g/dL (13.0-16.5); Lymphocyte # 0.19 X10^3/ul (4.0); Lymphocyte % 3.4 % (19-41); Mean Corp Hgb Conc 32.1 g/dL (32-36); Mean Corpuscular Hgb 28.6 pg (27.0-32.0); Mean Corpuscular Volume 89.2 fL (80-94); Mean Platelet Vol. 10.6 fl (6.2-12.0); Monocyte# 0.22 X10^3/uL; Monocyte% 3.9 % (0-10); NRBC Flagged by Analyzer 0 % (0-5); Neutrophil # 5.14 X10^3/uL (2.7-7.7); POSITIVE DIFFERENTIAL YES; POSITIVE MORPHOLOGY YES; Platelet Count 165 K/mm3 (150-450); RBC Distribution Width CV 13.1 % (11.6-14.6); RBC Distribution Width SD 42.7 fl (35.1-43.9); Red Blood Count 2.41 M/mm3 (4.6-6.2); White Blood Count 5.6 K/mm3 (4.4-11.0)
[2020-02-04 05:11] LABS: Differential Indicated SCAN CRITERIA MET
[2020-02-04] MEDS: hydrALAZINE 25 MG Tablet PO ×3 (05:23→22:38)
[2020-02-04] MEDS: 0.9% Saline Lock 10 ML Syringe IV ×3 (05:23→15:20)
[2020-02-04 05:29] LABS: Anion Gap 11 (5-15); BUN 80 mg/dL (7-18); Chloride 96 mmol/L (98-107); EST Glomerular Filtration Rate 20 mL/min (>60); Est Glom Filt Rate - Afr Amer 24 mL/min (>60); Glucose 342 mg/dL (74-106); Potassium 3.5 mmol/L (3.5-5.1); Sodium Level 135 mmol/L (136-145)
[2020-02-04 05:34] LABS: Differential Comment SCANNED; Platelet Estimate ADEQUATE (ADEQ)
[2020-02-04 05:38] LABS: Phosphorus 3.5 mg/dL (2.5-4.9)
--- NOTE | 2020-02-04 05:55 | EKG12_ITS ---
Test Reason : AM EKG Blood Pressure : / mmHG Vent. Rate : 083 BPM Atrial Rate : 085 BPM P-R Int : 000 ms QRS Dur : 104 ms QT Int : 446 ms P-R-T Axes : 000 -40 -52 degrees QTc Int : 524 ms Normal Sinus Rhythm with first degree AV block Left axis deviation Left ventricular hypertrophy with repolarization abnormality Prolonged QT Abnormal ECG When compared with ECG of 03-FEB-2020 11:56, MANUAL COMPARISON REQUIRED, DATA IS UNCONFIRMED Confirmed by SILVIA HANNON ([id number]), medical transcription editor MARCOS DURON ([id number]) on 02/05/2020 7:55:01 AM Referred By: Lisa Perez Confirmed By:SILVIA HANNON
[2020-02-04 06:51] LABS: Bedside Glucose 295 mg/dL (70-110)
[2020-02-04] MEDS: Sodium Chloride 0.65% 1 SPRAY SPRAY.BTL 2 SPRAY NASAL (07:00)
--- NOTE | 2020-02-04 07:10 | ECHOD_ITS ---
Reason For Study: CHF Procedure This was a 2D Doppler, Color Flow transthoracic echocardiogram. Exam performed portable in patient room. Left Ventricle Moderately dilated left ventricle. The estimated ejection fraction is 30 %. Stage 1 diastolic dysfunction. Posterior-Basal: Akinetic. Infero-Basal: Akinetic. Mid-Anterior : Severely Hypokinetic. Right Ventricle Mildly dilated right ventricle. Mild hypertrophy of the right ventricle. Normal systolic function. Atria The left atrium is mildly enlarged. Normal right atrium. Normal atrial septum. Mitral Valve The mitral valve is structurally normal. No prolapse or stenosis seen. Mild (1+) mitral valve insufficiency. Tricuspid Valve Normal tricuspid valve. Mild (1+) tricuspid valve insufficiency. Right ventricular systolic pressure estimated to be 64 mmHg. Severe pulmonary hypertension. Aortic Valve Trisinus/trileaflet aortic valve. Severe diffuse aortic valve thickening. Mild focal aortic valve calcification. Severe restriction of the aortic valve. Moderate aortic stenosis. Calculated aortic valve area (continuity equation) is 1.3 cm2. Pulmonic Valve Normal pulmonic valve. Great Vessels Normal aortic root. Normal arch. The inferior vena cava is dilated. No collapse of the inferior vena cava. Pericardium/Pleural No pericardial effusion. Small left pleural effusion. MMode/2D Measurements & Calculations RVDd: 3.9 cm LVOT diam: 2.1 cm Ao root diam: 3.6 cm LVOT area: 3.3 cm2 LAV(MOD-bp): 68.5 ml SV(MOD-sp4): 41.5 ml LVAd ap4: 37.7 cm2 LAV(MOD-bp) Indexed: 35.8 ml/m2 EDV(MOD-sp4): 115.7 ml LAV(MOD-sp2): 83.9 ml EDV(sp4-el): 122.2 ml LAV(MOD-sp4): 55.8 ml LVAs ap4: 28.3 cm2 ESV(MOD-sp4): 74.2 ml ESV(sp4-el): 76.0 ml EF(MOD-sp4): 35.9 % EF(sp4-el): 37.8 % SV(sp4-el): 46.2 ml LA A4 area: 20.2 cm2 LA dimension(2D): 4.1 cm RA A4 area: 15.4 cm2 Doppler Measurements & Calculations MV E max adilson: 105.3 cm/sec Lat Peak E' Adilson: 9.7 cm/sec Med Peak E' Adilson: 2.8 cm/sec MV A max adilson: 77.8 cm/sec E/E' lat: 10.8 E/E' med: 37.1 MV E/A: 1.4 Ao V2 max: 230.5 cm/sec LV V1 max: 92.2 cm/sec SV(LVOT): 59.5 ml Ao max P.3 mmHg LV V1 max P.4 mmHg Ao V2 mean: 161.1 cm/sec LV V1 mean P.8 mmHg Ao mean P.6 mmHg LV V1 mean: 64.2 cm/sec Ao V2 VTI: 44.0 cm LV V1 VTI: 17.8 cm TELLY(I,D): 1.4 cm2 TELLY(V,D): 1.3 cm2 PA V2 max: 86.3 cm/sec TR max adilson: 383.2 cm/sec TR max P.7 mmHg Interpretation Summary Moderately dilated left ventricle. The estimated ejection fraction is 30 %. Stage 1 diastolic dysfunction. Mildly dilated right ventricle. The left atrium is mildly enlarged. Mild (1+) mitral valve insufficiency. Mild (1+) tricuspid valve insufficiency. Right ventricular systolic pressure estimated to be 64 mmHg. Severe pulmonary hypertension. Severe restriction of the aortic valve. At least moderate aortic stenosis, but may be underestimated due to poor LV function. Calculated aortic valve area (continuity equation) is 1.3 cm2. The inferior vena cava is dilated No collapse of the inferior vena cava. Small left pleural effusion. Compared to echo report from outside hospital from 07/03/2019, LV function has remained the same. There was no comment on aortic stensosi or pulmonary HTN. Posterior-Basal: Akinetic. Infero-Basal: Akinetic. Mid-Anterior : Severely Hypokinetic. Ordering Physician: Lisa Perez Referring Physician: Sb Bolanos Performed By: Marj Wheeler, BRODIE, RVT
[2020-02-04 08:18] LABS: Absolute Neutrophil Count 5.8 X10^3/uL (2.0-7.7); Hematocrit 21.8 % (40-54); Lymphocyte % 3.2 % (19-41); Mean Corp Hgb Conc 32.1 g/dL (32-36); Mean Corpuscular Hgb 28.6 pg (27.0-32.0); Mean Platelet Vol. 10.7 fl (6.2-12.0); Monocyte# 0.29 X10^3/uL; Monocyte% 4.6 % (0-10); NRBC Flagged by Analyzer 0 % (0-5); Neutrophil # 5.76 X10^3/uL (2.7-7.7); Neutrophil % 91.6 % (47-70); POSITIVE DIFFERENTIAL YES; Platelet Count 168 K/mm3 (150-450); RBC Distribution Width CV 13.1 % (11.6-14.6); RBC Distribution Width SD 42.5 fl (35.1-43.9); Red Blood Count 2.45 M/mm3 (4.6-6.2); White Blood Count 6.3 K/mm3 (4.4-11.0)
[2020-02-04 08:20] LABS: Differential Indicated SCAN CRITERIA MET
--- NOTE | 2020-02-04 08:20 | CON.PCM_ITS ---
<Lei Wheeler - Last Filed: 02/04/20 09:56> Problem List (1) CHF exacerbation Status: Chronic (2) Elevated troponin Status: Acute (3) Ischemic cardiomyopathy Status: Chronic (4) Atherosclerosis of coronary artery of [place] heart without angina pectoris Status: Chronic Qualifiers: Coronary Disease-Associated Artery/Lesion type: [place] artery Qualified Code(s): I25.10 - Atherosclerotic heart disease of [place] coronary artery without angina pectoris Comment: ISV-JAT-Iyjh and Mid LAD, GLADYS-Prox LCx into OM1; BELT BUILDER Mid RCA w/ Left- Right Septal Collaterals to RPDA 06/29/19 (5) Hyperlipidemia Status: Chronic Qualifiers: Hyperlipidemia type: unspecified Qualified Code(s): E78.5 - Hyperlipidemia, unspecified (6) Essential (primary) hypertension Status: Chronic Reason for Consult Date of Consultation: 02/04/20 Reason for Consultation: CHF exacerbation, elevated troponin History of Present Illness: The patient is a 75 year old M who presented to [facility] Emergency Department on 02/03/2020 for shortness of breath via EMS. He has a past medical history of coronary artery disease status post drug-eluting stent to LAD and circumflex at [facility] on 06/29/2019, ischemic cardiomyopathy, Paroxysmal atrial fibrillation, aortic valve stenosis, mitral valve insufficiency, GI bleed which was felt to be precipitated by heparin drip with outpatient GI follow-up recommended, anemia, and chronic kidney disease. His ER evaluation revealed that per EMS patient was tripoding upon initial presentation and did not improve with DuoNeb treatment. He was not hypoxic. He was placed on CPAP and given Solu-Medrol. His laboratory testing revealed a WBC of 11.8, hemoglobin of 8.8, platelet count of 314, sodium of 135, potassium of 4.5, creatinine of 3.07, BUN of 67, glucose of 206, calcium of 8.4, troponin of 0.146, and BNP of 426.7. His EKG showed sinus rhythm without acute ST changes. T wave inversion was noted in leads I and aVL. Compared to previous there was more significant ST depression noted in leads V4 and V5. Patient was given Lasix 40 mg IV and admitted to PCU for further evaluation. Cardiology was consulted for further input. Past Medical History Allergies/Adverse Reactions: Allergies budesonide Allergy (Severe, Verified 12/29/19 13:20) Other - can't breathe amoxicillin [From Augmentin] Allergy (Unknown, Verified 12/29/19 13:20) Unknown clavulanic acid [From Augmentin] Allergy (Unknown, Verified 12/29/19 13:20) Unknown Sulfa (Sulfonamide Antibiotics) Allergy (Unknown, Verified 12/29/19 13:20) Unknown Home Medications: Ambulatory Orders Medication Instructions Recorded latanoprost 0.005 % eye drops 1 drp EACH EYE DAILY ml 11/15/17 albuterol sulfate 90 mcg/actuation 2 puff INHALATION Q6H PRN PRN #18 g 08/05/19 aerosol inhaler aspirin 81 mg tablet,delayed 81 mg PO DAILY #90 tab 08/06/19 release atorvastatin 80 mg tablet 80 mg PO QHS #90 tab 08/06/19 clopidogrel 75 mg tablet 75 mg PO DAILY #90 tab 08/06/19 hydralazine 25 mg tablet 25 mg PO TID #270 tab 08/06/19 isosorbide mononitrate 30 mg 30 mg PO DAILY #90 tab 08/06/19 tablet,extended release 24 hr metoprolol succinate 25 mg 12.5 mg PO DAILY #60 tab 08/06/19 tablet,extended release 24 hr insulin lispro 100 unit/mL See Rx Instructions SC DAILY ml 09/12/19 subcutaneous solution brimonidine 0.2 % eye drops 1 drp LEFT EYE BID ml 10/01/19 timolol 0.5 % eye drops 1 drp EACH EYE DAILY ml 10/01/19 blood sugar diagnostic See Rx Instructions .ROUTE 11/24/19 .MEDSUPPLY #150 ea fluticasone furoate 200 1 inh INHALATION DAILY #3 device 01/26/20 mcg-vilanterol 25 mcg/dose inhalation powder umeclidinium 62.5 mcg/actuation 1 inh INHALATION DAILY #3 ea 01/26/20 blister powder for inhalation Bumetanide [Bumex] 2 mg PO BID 02/03/20 Ergocalciferol (Vitamin D2) 50,000 unit PO CUNHA 02/03/20 [Vitamin D2] Insulin Lispro [Humalog] See Protocol SQ DAILY 02/03/20 Past Medical History (Chronic Problems): Chronic Problems (Last Reviewed 12/30/19 @ 07:[address] Yuan Heredia MD) CHF exacerbation (Chronic) CKD (chronic kidney disease) (Chronic) Insulin pump titration (Chronic) Diabetes mellitus (Chronic) Paroxysmal atrial fibrillation (Chronic 06/2019) Acute systolic (congestive) heart failure (Chronic) Ischemic cardiomyopathy (Chronic) NSVT (nonsustained ventricular tachycardia) (Chronic) Atherosclerosis of coronary artery of [place] heart without angina pectoris (Chronic) [id number]-Edpv and Mid LAD, GLADYS-Prox LCx into OM1; BELT BUILDER Mid RCA w/ Left-Right Septal Collaterals to RPDA 06/29/19 (HFpEF) heart failure with preserved ejection fraction (Chronic) Hyperlipidemia (Chronic) Essential (primary) hypertension (Chronic) Mobitz type I Wenckebach atrioventricular block (Chronic) Incomplete right bundle branch block (Chronic) Pulmonary nodule (Chronic) Chronic hypoxemic respiratory failure (Chronic) COPD (chronic obstructive pulmonary disease) (Chronic) Surgical History: appendectomy, cataract, - - foot surgery, carpal tunnel Psychiatric History: No pertinent psych hx - *Family History Maternal Family History: Family History (Last Reviewed 12/30/19 @ 07:[address] Yuan Heredia MD) Sister Diabetes Father Heart disease History Items: No pertinent history Paternal Family History: Family History (Last Reviewed 12/30/19 @ 07:[address] Yuan Heredia MD) Sister Diabetes Father Heart disease History Items: Heart Disease Smoking Status: Former smoker Tobacco Use: Cigarettes Review of Systems - Review of Systems General: Denies: Fever, Fatigue, Malaise HEENT: Denies: Vision Change Cardiovascular: Reports: Shortness of Breath, Shortness of Breath with Exertion, Orthopnea, Peripheral Edema. Denies: Chest Discomfort, Chest Discomfort at Rest, Chest Discomfort with Exertion, Chest Pressure, Chest Tightness, Chest Heaviness, Shortness of Breath at Rest, PND, Palpitations, Lightheadedness, Dizziness, Near Syncope, Syncope, Orthostatic Symptoms, Claudication Respiratory: Denies: Cough Gastrointestinal: Denies: Hematemesis, Melena Genitourinary: Denies: Hematuria Neurological: Denies: Dizziness Subjectve: Patient seen and evaluated. He denies any chest pain currently or prior to admission. He states his shortness of breath is improved since admission, but expects this to worsen if ambulating. He denies any lightness, dizziness, presy ncope, syncope, blood in urine, or blood in stool. In general, he states that he does not feel that he has significantly improved since initial stenting in June 2019 at [facility]. Objective: Vital Signs Temp Pulse Resp BP Pulse Ox 98.6 F 81 16 113/63 98 02/04/20 05:21 02/04/20 07:05 02/04/20 07:05 02/04/20 05:23 02/04/20 07:05 Oxygen Flow Rate (L/min) 4 Oxygen Delivery Method Nasal Cannula Weight: 171 lb 4.787 oz Body Mass Index (BMI) 25.8 Finger Stick Blood Glucose 141 Intake and Output for Last 24 Hours 02/02/20 02/03/20 02/04/20 23:59 23:59 23:59 Intake Total 360 / 360 60 / 60 Output Total 525 / 525 325 / 325 Balance -165 / -165 -265 / -265 General: Healthy Appearing, Awake, Alert, Oriented x 3, Cooperative Oral: Moist Mucosa Neck: No JVD Lungs: Diminished Bob Bases Cardiovascular: Regular Rhythm, Normal S1, Normal S2 Murmur Murmur: Grade 1/6, Soft, LLSB Vascular: No Carotid Bruits Abdomen: Bowel Sounds Present, Soft, Non Tender Extremities: No Cyanosis, No Clubbing, No edema, Normal Capillary Refill Neurological: No Focal Motor or Sensory Deficit Psych/Mental Status: Appropriate, Normal Affect 02/03/20 11:35: WBC 11.8 H, RBC 3.11 L, Hgb 8.8 L, Hct 28.2 L, MCV 90.7, MCH 28.3, MCHC 31.2 L, Plt Count 314, MPV 11.1, Immature Gran % (Auto) 0.600, Neut % (Auto) 83.8 H, Lymph % (Auto) 5.9 L, [place] % (Auto) 7.2, Eos % (Auto) 2.0, Baso % (Auto) 0.5, Absolute Neuts (auto) 9.9 H, Nucleated RBC % 0 02/03/20 11:35: Sodium 135 L, Potassium 4.5, Chloride 94 L, Carbon Dioxide 33.0 H, Anion Gap 8, BUN 67 H, Creatinine 3.07 H, Est GFR (MDRD) Af Amer 26 L, Est GFR (MDRD) Non-Af 21 L, BUN/Creatinine Ratio 21.8 H, Glucose 206 H, Calcium 8.4 L, Troponin I 0.146 H 02/03/20 11:35: PT 13.9, INR 1.1, APTT 34.6 02/03/20 11:35: Lactic Acid 1.8 02/03/20 11:35: Total Bilirubin 0.70, Direct Bilirubin 0.18 02/03/20 11:35: B-Natriuretic Peptide 426.7 H 02/03/20 12:20: pH 7.39, Bicarbonate Actual 28.0 H, POC Total CO2 29, Base Excess 3 H, O2 Saturation 95, ABG pCO2 45.9 H, ABG pO2 78, Price Test POS 02/03/20 16:22: Troponin I 0.970 H* 02/03/20 18:47: Troponin I 1.480 H* 02/03/20 22:00: Troponin I 1.510 H* 02/04/20 05:04: WBC 5.6, RBC 2.41 L, Hgb 6.9 L, Hct 21.5 L, MCV 89.2, MCH 28.6, MCHC 32.1, Plt Count 165, MPV 10.6, Immature Gran % (Auto) 0.500, Neut % (Auto) 92.0 H, Lymph % (Auto) 3.4 L, [place] % (Auto) 3.9, Eos % (Auto) 0.0, Baso % (Auto) 0.2, Absolute Neuts (auto) 5.1, Nucleated RBC % 0 02/04/20 05:04: Sodium 135 L, Potassium 3.5, Chloride 96 L, Carbon Dioxide 28.0, Anion Gap 11, BUN 80 H, Creatinine 3.20 H, Est GFR (MDRD) Af Amer 24 L, Est GFR (MDRD) Non-Af 20 L, BUN/Creatinine Ratio 25.0 H, Glucose 342 H, Calcium 8.0 L 02/04/20 05:04: Phosphorus 3.5, Magnesium 2.0 Rhythm: EKG: LIMITED ECHO: 07/03/2019: Summary: 1. Left ventricle: Systolic function is severely decreased by the biplane method of disks. The estimated ejection fraction is 31%. Moderate diffuse hypokinesis worse inferiorly and inferior-laterally. Stress Test Report Procedure: MUGA scan Date of procedure: 09/29/2019 Conclusions: Ejection fraction by MUGA scan is 42%. Cardiac Cath: PCI: 06/29/2019 Impressions: 1. Severe triple-vessel coronary artery disease as described. 2. CV team discussion with Dr. Martinez (CT surgery)?patient believed to be at excessively high risk of perioperative mortality due to comorbidities. PCI was determined to be best option at this time. Successful GLADYS proximal and mid LAD Additional successful GLADYS proximal LCx into the large OM1 BELT BUILDER mid RCA with [id number] septal collaterals Recommendations: 1. Patient management should include aggressive risk factor modification. 2. Patient management should include a cardiac rehabilitation program. 3. Add optimal medical therapy of the patient's disease. 4. Continue aspirin, at 81 mg p.o. daily, indefinitely. 5. Add ticagrelor (Brilinta), loading dose 180 mg p.o., standing dose 90 mg p.o. twice daily, for 1 year. 6. Add clopidogrel (Plavix). 7. Monitor renal function closely. Monitor for CHF Consider BELT BUILDER PCI of the RCA in the future if indicated. CT Surgery: Holter monitor: EPS: PPM: CXR: Chest CT Scan: Assessment/Plan 1. Elevated troponin * Patient's troponin trend has been 0.146, 0.970, 1.480, and 1.510. Given his history of coronary artery disease and recent heart catheterization/stenting in June 2019 in the setting of elevated troponin it is recommend he proceed with heart catheterization to evaluate further or consider medication management given chronic comorbidities. However, given his reduced hemoglobin and kidney function this will be better suited at a time when she is medically improved. * Of note his heart catheterization did recommended to consider BELT BUILDER PCI of the RCA if indicated in the future. 2. Atherosclerotic Coronary Artery Disease * We will proceed with plan as outlined above. * He will continue with Plavix, atorvastatin, and metoprolol succinate. * Due to reduced hemoglobin is reasonable to hold aspirin at this time. 3. Ischemic cardiomyopathy * Patient's MUGA scan from 10/01/2019 revealed ejection fraction of 42%. * His BNP upon admission was elevated at 426.7. * He will continue with IV Lasix 40 mg twice daily with ultimate transition to oral diuretic which appeared to be bumetanide 2 mg p.o. twice daily prior to admission. * He will proceed with echocardiogram to reevaluate. 4. Essential hypertension * His blood pressure is better controlled since admission. At this time, it appears stable. He will continue current medical therapy which includes hydralazine and isosorbide. 5. Hyperlipidemia * He will continue current high-dose statin medication. 6. Anemia * As mentioned above his aspirin is on hold. Once this has resolved we can consider further intervention with heart catheterization. His most recent hemoglobin on 02/04/2020 was noted to be 7. * He may benefit from PRBC with IV Lasix to improve. 7. Chronic kidney disease * This too complicates his care. His BUN today on 02/04/2020 was noted to be 80 and his creatinine is found to be 3.20. Patient has received dialysis pr eviously during his hospitalization that resulted in PCI. His states not having dialysis for the last month. * Nephrology consult should be considered to help guide chronic kidney disease and to follow if heart catheterization is performed given high risk for contrast-induced nephropathy. Patient case was reviewed with Dr. Mcqueen, who also personally evaluated patient. Please see his dictation for further input and details. Thank you for allowing us to participate in the patients plan of care, if you have any questions please do not hesitate to call. This note was generated using a voice recognition system and there may be incorrect words, spelling or punctuation that were not noted when reviewing the office note prior to saving. <Basilio Mcqueen - Last Filed: 02/04/20 10:28> Problem List (1) CHF exacerbation Status: Chronic (2) Elevated troponin Status: Acute (3) Mitral regurgitation Status: Acute Qualifiers: Cardiac valve disease etiology: etiology unspecified Qualified Code(s): I34.0 - Nonrheumatic mitral (valve) insufficiency (4) Paroxysmal atrial fibrillation Status: Chronic (5) Acute systolic (congestive) heart failure Status: Chronic (6) Ischemic cardiomyopathy Status: Chronic (7) NSVT (nonsustained ventricular tachycardia) Status: Chronic Reason for Consult History of Present Illness: The patient is a 75 year old M, primary patient Dr. Quick, with a history of type 1 diabetes for 30 years, previous smoking, known COPD, on chronic O2 therapy, hypertension, hyperlipidemia, coronary disease with ischemic cardiomyop athy. Apparently in June 2019 the patient presented to [facility] the emergency room with shortness of breath and was transferred emergently to [facility]. At [facility] he underwent a diagnostic coronary angiogram which demonstrated triple-vessel coronary disease. After consultation with Dr. Martinez it was decided that given his chronic occlusion of his RCA, percutaneous intervention would be a better pathway. He underwent angioplasty and stenting x2 to the LAD, and stenting x1 to the left circumflex by Dr. Luis Lazar on 06/29/2019. Subsequent to that the patient developed acute on chronic renal failure requiring hemodialysis up until 1 month ago. Although the patient did not like going to dialysis he did feel better. In addition he was found to have an LV function of 30%, and repeat MUGA scan by Dr. Quick indicated that his EF improved to 42%. He was transiently on a LifeVest, but then discontinued. Patient has chronic dyspnea on exertion and is on O2 therapy at home however on the day of admission he developed severe shortness of breath requiring emergent transfer to [facility] ER. Patient was initially found to have a small troponin release, which maximized at 1.4. In addition he was found to be anemic at 8.8, which dropped to 6.9 this morning. He denies any bright red blood per rectum, hematochezia, or black tarry stools. Patient denies any chest pain or anginal symptoms. Patient was gently hydrated overnight in anticipation for left heart catheterization this morning however his hemoglobin dropped and this was put on hold. Echocardiogram was obtained which demonstrates severe LV dysfunction with inferior posterior akinesis and severe anterior hypokinesis, probable significant aortic stenosis although difficult to interpret given his LV dysfunction, and severe pulmonary pretension with an RVSP of approximately 65 mmHg. [] Past Medical History Surgical History: no surgical history - *Family History Maternal Family History: Family History (Last Reviewed 12/30/19 @ 07:[address] Yuan Heredia MD) Sister Diabetes Father Heart disease Paternal Family History: Family History (Last Reviewed 12/30/19 @ 07:[address] Yuan Heredia MD) Sister Diabetes Father Heart disease Review of Systems - Review of Systems General: Denies: Fever, Night Sweats, Fatigue Cardiovascular: Denies: Chest Discomfort, Shortness of Breath, Orthopnea, PND, Peripheral Edema, Palpitations, Lightheadedness, Dizziness, Near Syncope, Syncope Respiratory: Denies: Cough, Sputum Production, Hemoptysis Gastrointestinal: Denies: Hematemesis, Hematochezia, Melena Genitourinary: Denies: Dysuria, Hematuria Skin: Denies: Rash Objective: Vital Signs Temp Pulse Resp BP Pulse Ox 98.6 F 86 16 113/63 98 02/04/20 05:21 02/04/20 08:37 02/04/20 07:05 02/04/20 05:23 02/04/20 07:05 Oxygen Flow Rate (L/min) 4 Oxygen Delivery Method Nasal Cannula Weight: 171 lb 4.787 oz Body Mass Index (BMI) 25.8 Finger Stick Blood Glucose 141 Intake and Output for Last 24 Hours 02/02/20 02/03/20 02/04/20 23:59 23:59 23:59 Intake Total 360 / 360 60 / 60 Output Total 525 / 525 325 / 325 Balance -165 / -165 -265 / -265 General: Awake, Alert, Oriented x 3 HEENT: PERRL, EOMI, Sclera Non Icteric Neck: Supple, Good ROM, No Lymph Node Enlargement Lungs: Clear to auscultation Cardiovascular: Regular Rhythm, Normal S2, No Rubs, No Gallops Murmur Murmur: Grade 2/6, Crescendo-Decrescendo Vascular: No Carotid Bruits, Normal Femoral Pulses, Normal Radial Pulses, Normal Dorsalis Pedal Pulse, Normal Posterior Tibial Pulses Abdomen: Bowel Sounds Present, Soft, Non Tender, No HSM, No Organomegaly Extremities: No Cyanosis, No Clubbing, No edema Neurological: No Focal Motor or Sensory Deficit 02/03/20 11:35: WBC 11.8 H, RBC 3.11 L, Hgb 8.8 L, Hct 28.2 L, MCV 90.7, MCH 28.3, MCHC 31.2 L, Plt Count 314, MPV 11.1, Immature Gran % (Auto) 0.600, Neut % (Auto) 83.8 H, Lymph % (Auto) 5.9 L, [place] % (Auto) 7.2, Eos % (Auto) 2.0, Baso % (Auto) 0.5, Absolute Neuts (auto) 9.9 H, Nucleated RBC % 0 02/03/20 11:35: Sodium 135 L, Potassium 4.5, Chloride 94 L, Carbon Dioxide 33.0 H, Anion Gap 8, BUN 67 H, Creatinine 3.07 H, Est GFR (MDRD) Af Amer 26 L, Est GFR (MDRD) Non-Af 21 L, BUN/Creatinine Ratio 21.8 H, Glucose 206 H, Calcium 8.4 L, Troponin I 0.146 H 02/03/20 11:35: PT 13.9, INR 1.1, APTT 34.6 02/03/20 11:35: Lactic Acid 1.8 02/03/20 11:35: Total Bilirubin 0.70, Direct Bilirubin 0.18 02/03/20 11:35: B-Natriuretic Peptide 426.7 H 02/03/20 12:20: pH 7.39, Bicarbonate Actual 28.0 H, POC Total CO2 29, Base Excess 3 H, O2 Saturation 95, ABG pCO2 45.9 H, ABG pO2 78, Price Test POS 02/03/20 16:22: Troponin I 0.970 H* 02/03/20 18:47: Troponin I 1.480 H* 02/03/20 22:00: Troponin I 1.510 H* 02/04/20 05:04: WBC 5.6, RBC 2.41 L, Hgb 6.9 L, Hct 21.5 L, MCV 89.2, MCH 28.6, MCHC 32.1, Plt Count 165, MPV 10.6, Immature Gran % (Auto) 0.500, Neut % (Auto) 92.0 H, Lymph % (Auto) 3.4 L, [place] % (Auto) 3.9, Eos % (Auto) 0.0, Baso % (Auto) 0.2, Absolute Neuts (auto) 5.1, Nucleated RBC % 0 02/04/20 05:04: Sodium 135 L, Potassium 3.5, Chloride 96 L, Carbon Dioxide 28.0, Anion Gap 11, BUN 80 H, Creatinine 3.20 H, Est GFR (MDRD) Af Amer 24 L, Est GFR (MDRD) Non-Af 20 L, BUN/Creatinine Ratio 25.0 H, Glucose 342 H, Calcium 8.0 L 02/04/20 05:04: Phosphorus 3.5, Magnesium 2.0 02/04/20 08:12: WBC 6.3, RBC 2.45 L, Hgb 7.0 L, Hct 21.8 L, MCV 89.0, MCH 28.6, MCHC 32.1, Plt Count 168, MPV 10.7, Immature Gran % (Auto) 0.600, Neut % (Auto) 91.6 H, Lymph % (Auto) 3.2 L, [place] % (Auto) 4.6, Eos % (Auto) 0.0, Baso % (Auto) 0.0, Absolute Neuts (auto) 5.8, Nucleated RBC % 0 Rhythm: EKG: ECHO: As above Moderately dilated left ventricle. The estimated ejection fraction is 30 %. Stage 1 diastolic dysfunction. Mildly dilated right ventricle. The left atrium is mildly enlarged. Mild (1+) mitral valve insufficiency. Mild (1+) tricuspid valve insufficiency. Right ventricular systolic pressure estimated to be 64 mmHg. Severe pulmonary hypertension. Severe restriction of the aortic valve. At least moderate aortic stenosis, but may be underestimated due to poor LV function. Calculated aortic valve area (continuity equation) is 1.3 cm2. The inferior vena cava is dilated No collapse of the inferior vena cava. Small left pleural effusion. Compared to echo report from outside hospital from 07/03/2019, LV function has remained the same. There was no comment on aortic stensosi or pulmonary HTN. Posterior-Basal: Akinetic. Infero-Basal: Akinetic. Mid-Anterior : Severely Hypokinetic. Stress Test: Cardiac Cath: PCI: CT Surgery: Holter monitor: EPS: PPM: CXR: Chest CT Scan: Assessment/Plan Interventional cardiology addendum: Patient seen and examined in conjunction with Lei wheeler. I agree with above findings. In addition I have the following comments. 1. Ischemic cardiomyopathy: It is uncertain whether the patient's ischemic cardiomyopathy has been made worse by in-stent restenosis from his previously placed stents in his LAD and circumflex in June 2019. Unfortunately to repeat his heart catheterization would put him at high risk for acute on chronic renal failure and possibly permanent renal failure requiring hemodialysis. In addition the patient is severely anemic, possibly as a consequence of lack of erythropoietin as his dialysis discontinued about 1 month ago. I recommend the patient eventually undergo a repeat left heart catheterization and in addition a right heart catheterization to confirm/deny the presence of significant and severe pulmonary pretension as evidenced on echocardiogram today. Patient may require consideration of aortic valve replacement most likely with TAVR provided his coronary stents are patent. I believe the patient may benefit from TAVR procedure if it is discovered the patient has significant aortic stenosis contributing to his overall pulmonary pretension. In the meantime I recommend transfusing him 1 unit of PRBCs to maintain hemoglob in above 8.0, and preferably 9.0. Recommend IV Lasix 40 mg in between units of PRBCs. 2. Renal insufficiency: I recommend repeat consultation with patient's nephrology team and I have recommended the patient consider going back on dialysis on a permanent basis to assist with fluid management and blood purification as well as erythropoietin injections to maintain hemoglobin above 8.0. Patient is going to think about it, and will consult with his merit system director today. 3. Pulmonary pretension: Patient's echocardiogram today demonstrates severe pulmonary pretension, but this was not commented on specifically on his previous echocardiogram report from [facility] in June 2019. May want a consider evaluation of pulmonary emboli but to do so he would require VQ scan which may be problematic given his COPD and severe pulmonary pretension. The patient does indeed have severe pulmonary pretension he is at high risk for DVT and pulmonary embolism going forward I would most likely require long-term anticoagulation. 4. Hyperlipidemia: Continue statin based medications. 5. Depending upon the outcome of the patient's renal consult, will proceed with left and right heart catheterization tomorrow morning. Continue baby aspirin and Plavix given his recent PCI in June 2019. 6. Thank you very much for the opportunity to participate in the cardiac care of your patient. Consultation time took place between 9:30 AM and 10:27 AM. Inpatient E&M: 99169 Init Hosp L2
[2020-02-04 08:26] LABS: Bedside Glucose 295 mg/dL (70-110)
[2020-02-04] MEDS: Clopidogrel Bisulfate 75 MG Tablet PO (08:31)
[2020-02-04] MEDS: guaiFENesin 1,200 MG Tablet 1200 MG PO ×2 (08:31→22:38)
[2020-02-04] MEDS: BRIMONIDINE 0.2% 5ML BOTTLE 1 DRP LEFT EYE ×2 (08:31→22:38)
[2020-02-04] MEDS: Furosemide 40 MG/4 ML Vial IV ×2 (08:31→15:20)
[2020-02-04] MEDS: Isosorbide Mononitrate 30 MG Tablet PO (08:31)
[2020-02-04] MEDS: Timolol 0.5% 5ML OPTH.BTL 1 DRP EACH EYE ×2 (08:34→22:38)
[2020-02-04] MEDS: Metoprolol(XL)Succ 25 MG Tablet 12.5 MG PO (08:37)
--- NOTE | 2020-02-04 08:55 | CPS ---
patient only wore bipap for 1 hour last night
--- NOTE | 2020-02-04 10:22 | NURSING ---
PT'S UPDATED ON POC
--- NOTE | 2020-02-04 11:01 | PCM.PN.HOSP ---
Patient Problems: Active and Suspected Problems (Last Reviewed 12/30/19 @ 07:[address] Yuan Heredia MD) Acute respiratory failure (Acute) Anemia (Acute) Elevated troponin (Acute) Subjective: Patient seen and examined. Shortness of breath is improved and he is off BiPAP and now on 4 L of oxygen, which is his baseline. He denies any chest pain no palpitations, dizziness, nausea vomiting. Review of systems otherwise negative. He has remained hemodynamically stable. Troponin trended all the way up to 1.5. Hemoglobin dropped to 6.9 today and on repeat was 7. Cardiology on board. Vitals/I&O's: Vital Signs Temp Pulse Resp BP Pulse Ox 98.2 F 82 16 125/61 H 100 02/04/20 10:47 02/04/20 10:47 02/04/20 10:47 02/04/20 10:47 02/04/20 10:47 Oxygen Flow Rate (L/min) 4 Oxygen Delivery Method Nasal Cannula Weight: 171 lb 4.787 oz Body Mass Index (BMI) 25.8 Finger Stick Blood Glucose 141 Intake and Output for Last 24 Hours 02/02/20 02/03/20 02/04/20 23:59 23:59 23:59 Intake Total 360 / 360 60 / 60 Output Total 525 / 525 325 / 325 Balance -165 / -165 -265 / -265 General: Alert, Oriented x3, Cooperative, No apparent distress HEENT: Atraumatic, PERRLA, EOMI, Normocephalic Oral: Moist Mucosa Neck: Supple, No JVD, Negative Carotid Bruits Lungs: - - diminished breath sounds bibasally, on 4L of oxygen by nasal canula Cardiovascular: Regular rate, Regular Rhythm, Normal S1, Normal S2, No murmurs Abdomen: Bowel Sounds Present, Soft, Non Tender, Non-Distended, No Hepato-splenomegaly Extremities: No clubbing, No cyanosis, No edema, Capillary Refill Less than 3 Seconds Skin: No rashes, No breakdown Musculoskeletal: No Tenderness to Palpation of Joints or Extremities Lymphatic: No Cervical, Supraclavicular, or Inguinal Adenopathy Neurological: Cranial nerves II-XII grossly intact, Neuro grossly intact, Motor Exam 5/5 strength throughout Psych/Mental Status: Normal Affect, Appropriate, Alert and oriented to time, place, person, mood and affect Microbiology Past 72 Hours 02/03/20 12:00 Mucosa - Nose Rapid RSV (DFA) - Final 02/03/20 12:00 Mucosa - Nose Influenza Types A,B Direct FA (LEVI) - Final Laboratory Results 02/03/20 11:35: WBC 11.8 H, RBC 3.11 L, Hgb 8.8 L, Hct 28.2 L, MCV 90.7, MCH 28.3, MCHC 31.2 L, RDW Std Deviation 43.0, RDW Coeff of Janel 13.1, Plt Count 314, MPV 11.1, Immature Gran % (Auto) 0.600, Neut % (Auto) 83.8 H, Lymph % (Auto) 5.9 L, Saunders % (Auto) 7.2, Eos % (Auto) 2.0, Baso % (Auto) 0.5, Absolute Neuts (auto) 9.9 H, Absolute Lymphs (auto) 0.70 L, Nucleated RBC % 0 02/03/20 11:35: Sodium 135 L, Potassium 4.5, Chloride 94 L, Carbon Dioxide 33.0 H, Anion Gap 8, BUN 67 H, Creatinine 3.07 H, Estim Creat Clear Calc 19.50, Est GFR (MDRD) Af Amer 26 L, Est GFR (MDRD) Non-Af 21 L, BUN/Creatinine Ratio 21.8 H, Glucose 206 H, Calcium 8.4 L, Troponin I 0.146 H 02/03/20 11:35: PT 13.9, INR 1.1, APTT 34.6 02/03/20 11:35: Lactic Acid 1.8 02/03/20 11:35: Total Bilirubin 0.70, Direct Bilirubin 0.18, AST 31, ALT 41, Alkaline Phosphatase 131 H, Total Protein 8.1, Albumin 3.4, Globulin 4.7 H 02/03/20 11:35: B-Natriuretic Peptide 426.7 H 02/03/20 12:20: Specimen Type ART, Sample Site R RADIAL, pH 7.39, Bicarbonate Actual 28.0 H, POC Total CO2 29, Base Excess 3 H, O2 Saturation 95, O2 % 25, ABG pCO2 45.9 H, ABG pO2 78, Price Test POS, O2 Delivery Device Bi Pap, EPAP 8, IPAP 14, Blood Gas Notified Whom ED MD, Blood Gas Notified Time 1225 02/03/20 14:11: POC Glucose 141 H 02/03/20 16:07: POC Glucose 136 H 02/03/20 16:22: Troponin I 0.970 H* 02/03/20 18:47: Troponin I 1.480 H* 02/03/20 21:03: POC Glucose 228 H 02/03/20 22:00: Troponin I 1.510 H* 02/04/20 02:51: POC Glucose 332 H 02/04/20 05:04: WBC 5.6, RBC 2.41 L, Hgb 6.9 L, Hct 21.5 L, MCV 89.2, MCH 28.6, MCHC 32.1, RDW Std Deviation 42.7, RDW Coeff of Janel 13.1, Plt Count 165, MPV 10.6, Immature Gran % (Auto) 0.500, Neut % (Auto) 92.0 H, Lymph % (Auto) 3.4 L, Saunders % (Auto) 3.9, Eos % (Auto) 0.0, Baso % (Auto) 0.2, Absolute Neuts (auto) 5.1, Absolute Lymphs (auto) 0.19 L, Nucleated RBC % 0, Differential Comment SCANNED, Platelet Estimate ADEQUATE 02/04/20 05:04: Sodium 135 L, Potassium 3.5, Chloride 96 L, Carbon Dioxide 28.0, Anion Gap 11, BUN 80 H, Creatinine 3.20 H, Estim Creat Clear Calc 18.70, Est GFR (MDRD) Af Amer 24 L, Est GFR (MDRD) Non-Af 20 L, BUN/Creatinine Ratio 25.0 H, Glucose 342 H, Calcium 8.0 L 02/04/20 05:04: Phosphorus 3.5, Magnesium 2.0 02/04/20 06:42: POC Glucose 295 H 02/04/20 07:20: Blood Type O POSITIVE, Antibody Screen NEGATIVE, Crossmatch See Detail 02/04/20 08:12: WBC 6.3, RBC 2.45 L, Hgb 7.0 L, Hct 21.8 L, MCV 89.0, MCH 28.6, MCHC 32.1, RDW Std Deviation 42.5, RDW Coeff of Janel 13.1, Plt Count 168, MPV 10.7, Immature Gran % (Auto) 0.600, Neut % (Auto) 91.6 H, Lymph % (Auto) 3.2 L, Saunders % (Auto) 4.6, Eos % (Auto) 0.0, Baso % (Auto) 0.0, Absolute Neuts (auto) 5.8, Absolute Lymphs (auto) 0.20 L, Nucleated RBC % 0, Differential Comment COMMENT 02/04/20 08:18: POC Glucose 295 H Diagnostic Data Chest X-Ray 02/03/20 11:43 IMPRESSION: Findings in keeping with CHF superimposed on chronic basilar scarring with small bilateral effusions. Electronically Signed: Fabricio Shah, at 12:39 EDT , Service support , Current Medications Albuterol Sulfate (Ventolin Aerosols) 2.5 mg INHALATION Q2H PRN PRN PRN Reason: SOB/Wheezing Albuterol/Ipratropium (Duoneb) 3 ml INHALATION Q4H.RT [facility] Last Admin: 02/04/20 07:05 Dose: 3 ml Documented by: Atorvastatin Calcium (Lipitor) 80 mg PO QHS [facility] Last Admin: 02/03/20 21:07 Dose: 80 mg Documented by: Brimonidine Tartrate (Brimonidine 0.2% 5ml Bottle) 1 drop LEFT EYE BID [facility] Last Admin: 02/04/20 08:31 Dose: 1 drop Documented by: Clopidogrel Bisulfate (Plavix) 75 mg PO DAILY [facility] Last Admin: 02/04/20 08:31 Dose: 75 mg Documented by: Dextrose (D50w Syringe) 0 gm IV X1 PRN; Protocol PRN Reason: Hypoglycemia Ergocalciferol (Vitamin D) 50,000 unit PO Luna@1000 [facility] Furosemide (Lasix) 40 mg IV BID@1000,1800 [facility] Last Admin: 02/04/20 08:31 Dose: 40 mg Documented by: Glucagon () 1 mg IM .X1 PRN PRN Reason: Hypoglycemia Guaifenesin (Mucinex) 1,200 mg PO BID [facility] Last Admin: 02/04/20 08:31 Dose: 1,200 mg Documented by: Hydralazine HCl (Apresoline) 25 mg PO TID [facility] Last Admin: 02/04/20 05:23 Dose: 25 mg Documented by: Insulin Human Lispro (Humalog Kwikpen (Bkc)) 0 unit SC ACHS [facility]; Protocol Last Admin: 02/04/20 07:02 Dose: Not Given Documented by: Isosorbide Mononitrate (Imdur) 30 mg PO DAILY [facility] Last Admin: 02/04/20 08:31 Dose: 30 mg Documented by: Latanoprost (Xalatan Opthalmic) 1 drop EACH EYE QHS [facility] Last Admin: 02/03/20 21:17 Dose: 1 drop Documented by: Methylprednisolone (Solu-Medrol) 40 mg IV Q8 [facility] Last Admin: 02/04/20 05:23 Dose: 40 mg Documented by: Metoprolol Succinate (Toprol Xl (Beta Antonette)) 12.5 mg PO DAILY [facility] Last Admin: 02/04/20 08:37 Dose: 12.5 mg Documented by: Nitroglycerin (Nitrostat) 0.4 mg SUBLINGUAL Q5M PRN PRN Reason: CARDIAC/CHEST PAIN Ondansetron HCl (Zofran) 4 mg IV Q8H PRN PRN PRN Reason: NAUSEA/VOMITING Sodium Chloride () 10 - 40 ml IV UD PRN PRN Reason: SALINE FLUSH Last Admin: 02/04/20 05:23 Dose: 10 ml Documented by: Sodium Chloride (Ola Nasal Seth) 2 spray NASAL Q4H PRN PRN PRN Reason: NASAL DRYNESS Last Admin: 02/04/20 07:00 Dose: 2 sprays Documented by: Timolol Maleate (Timoptic) 1 drop EACH EYE BID [facility] Last Admin: 02/04/20 08:34 Dose: 1 drop Documented by: STROKE Vital Signs/Narrative: Vital Signs Temp Pulse Resp BP Pulse Ox 02/04/20 10:47 98.2 F 82 16 125/61 H 100 02/04/20 08:37 86 02/04/20 07:05 81 16 98 Medical Necessity - Tobacco Use Smoking Status: Former smoker Tobacco Use: Cigarettes Assessment/Plan All Active Problems (Last Reviewed 12/30/19 @ 07:[address] Yuan Heredia MD) Acute respiratory failure (Acute) Anemia (Acute) Elevated troponin (Acute) Mitral regurgitation (Acute) Aortic stenosis (Acute) Acute blood loss anemia (Acute) History of coronary artery stent placement (Resolved 06/29/19) History of non-ST elevation myocardial infarction (NSTEMI) (Resolved 06/25/19) Acute kidney injury superimposed on chronic kidney disease (Resolved) Shortness of breath (Resolved) 1. Acute on chronic HFrEF weaned off BIPAP and now on his baseline 4L of oxygen 2D echo(06/30): EF of 31%, with moderate diffuse hypokinesis on IV lasix 40mg bid monitor intake and output; fluid restriction to 1500cc daily breathing treatments with bronchodilators 2. Nonstemi Initial troponin was 0.146 but this peaked at 1.5. Cardiology on board. On aspirin and Plavix. Plan was for patient to have cardiac cath today but this was canceled as patient had a drop in his hemoglobin today. Plan is to transfuse patient with 1 unit of packed red blood cells. 2D echo pending. For cath tomorrow. 3. Acute on chronic exacerbation of COPD Influenza and RSV screen were negative. Patient is low suspicion for CO VID 19 as he has not had a fever or exposure to anybody with Covid 19. IV Solu-Medrol 40 mg every 8. Breathing treatments with bronchodilators. now on 4L of oxygen which is his baseline 4. Acute on chronic hypoxic respiratory failure as under 1 and 2 5. Acute on chronic anemia Hb was 8.8 on admission,a nd dropped to 6.9 today. repeat Hb today is 7 patietn is chronically anemic, with baseline of ~ 8-9. He says he required blood transfusion after he had his stents put in in June 2019. wll transfuse one unit of PRBC fecal occult blood is pending; jose check iron panel 6. CAD s/p stents had 2 stents placed in LAD and one in left circumflex at [facility] in June 2019; he had total occlusion of RCA, but was not thought to be a candidate for CABG on aspirin and plavix. 7. CKD 4: CR is 3.2, baseline is 2-3. Will consult nephrology as he is on lasix, and will be having cardiac cath, which may worsen kidney function due to dye exposure. 8. Type 2 diabetes mellitus on ISS. Accuchecks ACHS. DVT prophylaxis: SCDs; hold lovenox o/a of drop in hemoglobin Code status: full code. Inpatient E&M: 65026 Subs Hosp L3
--- NOTE | 2020-02-04 11:13 | CASEMGMT ---
AILIN SHEPPARD assessment: Face to Face with patient for initial transition planning/care coordination assessment. AILIN SHEPPARD introduced self and role at [facility], pt voices understanding and consents to assessment at this time. Pt is sitting up in chair in no distress at this time. Pt is A/Ox4 at this time and answers all questions appropriately at this time. Care providers, pharmacy, and demographics verified at this time. Presentation: SOB since this AM. Pt has hx COPD Admitting dx: CHF exacerbation PCP: Sb Bolanos-has not seen yet, was scheduled to see him for first visit today but states cancelled appt Specialists: Amy, nephro; Luis Miguel puljf; gavi Heredia Preferred Pharmacy: [facility] Insurance: [facility] A/B, [employer] Prescription Benefit: Pt states has Rx coverage but cannot remember who it's through. Living Will/HPOA: Pt states has LW/HPOA and is aware that they are not on file at [facility] at this time. Pt states that his , Cheyenne Massey, is HPOA. LNOK: Cheyenne Massey, ; Angella Massey, daughter Living Arrangements: Pt states lives with in 1 story home with 3 steps in that have grab bar and a rail and pt states no concerns at home at this time. Pt states is normally independent with ADL's. Transportation: Pt states drives self and states no transportation concerns at this time. DME/HHC: Pt states has grab bars, rails, cane, walker, and 4 liters home oxygen thru [facility]. Pt states no need for any further DME at this time. CM to follow for increased home oxygen need at discharge. Pt states no hx of HHC or SNF in the past but has been on OP dialysis in the past and would not prefer to go back on dialysis. Pt states no concerns with going home at time of discharge. Pt states is retired. Pt states does not smoke or drink ETOH. Pt states no further concerns/need at this time. CM to follow for any further discharge planning/needs. Advised pt to ask for CM if any further questions/concerns/needs arise, voices understanding. Pt Goal: Home Plan[place] AILIN SHEPPARD
[2020-02-04 11:35] LABS: Bedside Glucose 266 mg/dL (70-110)
[2020-02-04 12:05] LABS: Ferritin 804 ng/mL (26-388); Iron 43 ug/dL (65-175); Iron Binding Capacity,Total 202 ug/dL (250-450); PERCENT IRON SATURATION 21.3 % (15.0-55.0)
--- NOTE | 2020-02-04 15:12 | CHAPLAIN ---
Type of Pastoral Visit _x__ Initial Visit ___ Follow-up Visit ___ On-call Visit ___ General Patient Visit ___ Spiritual Assessment ___ Family Conference ___ Bereavement ___ Rapid Response ___ Code Blue ___ Other (describe below) Pastoral Care Referral From _x__ Patient ___ Family ___ Nurse ___ Physician ___ Hl7 Developer ___ Automation Qa Lead ___ Other (describe below) Sacrament/Intervention _x__ Active listening ___ Anointing ___ Mormon ___ Bereavement ___ Communion _x__ Kriss exploration ___ _x__ Life review _x__ Prayer ___ Reconciliation ___ Sacrament of Sick _x__ Supportive presence ___ Wedding ___ Other (describe below) Pastoral Comments patient says there is much information to hear and many decisions to be made; pt has good kriss connection and seeks spiritual support
[2020-02-04 17:06] LABS: Bedside Glucose 152 mg/dL (70-110)
--- NOTE | 2020-02-04 17:26 | NURSING ---
pt became increasing SOB during 2nd blood transfusion. Lasix was given beforehand. VSS other than high RR. pt placed on bipap and MD made aware. MD instructed this RN to stop blood transfusion and continue to monitor pt. respiratory therapy made aware of pt condition change.
[2020-02-04] MEDS: LORazepam 1 MG Tablet PO (19:00)
--- NOTE | 2020-02-04 19:19 | CPS ---
BiPAP IPAP increased to 16 for complaint of not getting enough air. Change was made and patient was more comfortable afterwards. COMMERCIAL DOOR INSTALLER will monitor patient overnight. RN aware and change.
[2020-02-04] MEDS: Latanoprost 0.005% 1 Bottle 1 DRP EACH EYE (22:38)
[2020-02-04] MEDS: Atorvastatin Calcium 80 MG Tablet PO (22:38)
[2020-02-04] MEDS: Insulin Lispro 100 UNIT/ML INSULN.PEN SC (22:39)
[2020-02-04] MEDS: Zolpidem Tartrate 5 MG Tablet PO (22:40)
--- NOTE | 2020-02-04 23:21 | CPS ---
Venti-Mask set-up for pt. after wanting to take a break from BiPaP. Pt. has 4L NC in room as well, but he was complaining of soreness in his nostrils. Pt. tolerating venti-mask well.
[2020-02-04 23:26] LABS: Bedside Glucose 418 mg/dL (70-110)
[2020-02-05] VITALS (30 sets, daily range): BP systolic 105–192; BP diastolic 58–96; PULSE 68–87; RESP 12–24; TEMP 36.3–37.2; O2SAT 90–100; BMI 25.7
[2020-02-05] MEDS: Albuterol 2.5 MG/3 ML VIAL.NEB. INHALATION (00:26)
[2020-02-05] MEDS: LORazepam 2 MG/ML Syringe 1 MG IV (00:41)
[2020-02-05] MEDS: Ipratropium/Albuterol Sulfate 3 ML AMPUL.NEB INHALATION ×5 (03:52→23:05)
[2020-02-05 05:54] LABS: Absolute Lymphocyte Count 0.25 X10^3/uL (0.83-4.51); Absolute Neutrophil Count 9.7 X10^3/uL (2.0-7.7); Basophil# 0.01 X10^3/uL; Basophil% 0.1 % (0-1); Hematocrit 28.7 % (40-54); Hemoglobin 9.2 g/dL (13.0-16.5); Lymphocyte # 0.25 X10^3/ul (4.0); Lymphocyte % 2.4 % (19-41); Mean Corp Hgb Conc 32.1 g/dL (32-36); Mean Corpuscular Volume 87.2 fL (80-94); Mean Platelet Vol. 11.1 fl (6.2-12.0); Monocyte# 0.34 X10^3/uL; Monocyte% 3.3 % (0-10); NRBC Flagged by Analyzer 0 % (0-5); Neutrophil # 9.74 X10^3/uL (2.7-7.7); Neutrophil % 93.9 % (47-70); POSITIVE DIFFERENTIAL YES; Platelet Count 215 K/mm3 (150-450); Red Blood Count 3.29 M/mm3 (4.6-6.2); White Blood Count 10.4 K/mm3 (4.4-11.0)
[2020-02-05 05:59] LABS: Differential Indicated SCAN CRITERIA MET
--- NOTE | 2020-02-05 06:01 | CPS ---
Pt. not being very compliant with BiPaP, so he was placed back on the Venti-Mask. Pt. took off his Venti-Mask, and was reinforced by the nursing staff and myself to keep it on.
[2020-02-05] MEDS: Insulin Lispro 100 UNIT/ML INSULN.PEN SC ×4 (06:05→17:00)
[2020-02-05 06:14] LABS: Differential Comment SCANNED
[2020-02-05] MEDS: hydrALAZINE 25 MG Tablet PO ×2 (06:14→22:30)
[2020-02-05] MEDS: ALPRAZolam 0.25 MG Tablet PO (06:19)
[2020-02-05 06:27] LABS: Anion Gap 14 (5-15); BUN 96 mg/dL (7-18); BUN/Creat Ratio 27.7 RATIO (10-20); Calcium,Total 8.5 mg/dL (8.5-10.1); Chloride 93 mmol/L (98-107); Creatinine, Serum 3.46 mg/dL (0.70-1.30); EST Glomerular Filtration Rate 18 mL/min (>60); Est Glom Filt Rate - Afr Amer 22 mL/min (>60); Glucose 488 mg/dL (74-106); Potassium 4.2 mmol/L (3.5-5.1); Sodium Level 132 mmol/L (136-145)
[2020-02-05 07:06] LABS: Bedside Glucose 459 mg/dL (70-110)
[2020-02-05 08:28] LABS: Blood Gas Specimen Type ART; SITE L RADIAL
--- NOTE | 2020-02-05 08:28 | PN.CARD_ITS ---
Subjectve: Patient required BiPAP last evening, and this morning is off BiPAP but has moderate respiratory distress. He has significant conversational dyspnea, and only can answer in 1 or 2 words. He is awake, and answers questions appropriately and denies any chest pain. Patient received 1 unit of PRBC yesterday and his hemoglobin is 9.2 but his creatinine is worsening. Patient appears to have poor air movement, he has excellent 2+ carotid upstroke bilaterally indicating he most likely does not have severe aortic stenosis. Echocardiogram performed yesterday at is as below: Moderately dilated left ventricle. The estimated ejection fraction is 30 %. Stage 1 diastolic dysfunction. Mildly dilated right ventricle. The left atrium is mildly enlarged. Mild (1+) mitral valve insufficiency. Mild (1+) tricuspid valve insufficiency. Right ventricular systolic pressure estimated to be 64 mmHg. Severe pulmonary hypertension. Severe restriction of the aortic valve. At least moderate aortic stenosis, but may be underestimated due to poor LV function. Calculated aortic valve area (continuity equation) is 1.3 cm2. The inferior vena cava is dilated No collapse of the inferior vena cava. Small left pleural effusion. Compared to echo report from outside hospital from 07/03/2019, LV function has remained the same. There was no comment on aortic stensosi or pulmonary HTN. Posterior-Basal: Akinetic. Infero-Basal: Akinetic. Mid-Anterior : Severely Hypokinetic. Objective: Vital Signs Temp Pulse Resp BP Pulse Ox 98.1 F 74 24 H 160/58 H 98 02/05/20 06:50 02/05/20 07:05 02/05/20 07:05 02/05/20 06:50 02/05/20 07:05 Oxygen Flow Rate (L/min) 8 Oxygen Delivery Method Room Air Weight: 169 lb 8.568 oz Body Mass Index (BMI) 25.8 Finger Stick Blood Glucose 141 Intake and Output for Last 24 Hours 02/03/20 02/04/20 02/05/20 23:59 23:59 23:59 Intake Total 360 / 360 1560 / 1680 220 / 220 Output Total 525 / 525 1025 / 1340 640 / 640 Balance -165 / -165 535 / 340 -420 / -420 General: Awake, Alert, Oriented x 3 HEENT: PERRL, EOMI, Sclera Non Icteric Neck: Supple, Good ROM, No Lymph Node Enlargement Lungs: Clear to auscultation, Expiratory Wheezes-Bob Cardiovascular: Regular Rhythm, Normal S2, No Rubs, No Gallops Murmur Murmur: Grade 2/6, Crescendo-Decrescendo Vascular: No Carotid Bruits, Normal Femoral Pulses, Normal Radial Pulses, Normal Dorsalis Pedal Pulse, Normal Posterior Tibial Pulses Abdomen: Bowel Sounds Present, Soft, Non Tender, No HSM, No Organomegaly Extremities: No Cyanosis, No Clubbing, No edema Neurological: No Focal Motor or Sensory Deficit 02/04/20 05:04: Iron 43 L, TIBC 202 L, Iron Saturation 21.3, Ferritin 804 H 02/05/20 05:40: WBC 10.4, RBC 3.29 L, Hgb 9.2 L, Hct 28.7 L, MCV 87.2, MCH 28.0, MCHC 32.1, Plt Count 215, MPV 11.1, Immature Gran % (Auto) 0.300, Neut % (Auto) 93.9 H, Lymph % (Auto) 2.4 L, Edgar % (Auto) 3.3, Eos % (Auto) 0.0, Baso % (Auto) 0.1, Absolute Neuts (auto) 9.7 H, Nucleated RBC % 0 02/05/20 05:40: Sodium 132 L, Potassium 4.2, Chloride 93 L, Carbon Dioxide 25.0, Anion Gap 14, BUN 96 H, Creatinine 3.46 H, Est GFR (MDRD) Af Amer 22 L, Est GFR (MDRD) Non-Af 18 L, BUN/Creatinine Ratio 27.7 H, Glucose 488 H*, Calcium 8.5 Rhythm: EKG: ECHO: Moderately dilated left ventricle. The estimated ejection fraction is 30 %. Stage 1 diastolic dysfunction. Mildly dilated right ventricle. The left atrium is mildly enlarged. Mild (1+) mitral valve insufficiency. Mild (1+) tricuspid valve insufficiency. Right ventricular systolic pressure estimated to be 64 mmHg. Severe pulmonary hypertension. Severe restriction of the aortic valve. At least moderate aortic stenosis, but may be underestimated due to poor LV function. Calculated aortic valve area (continuity equation) is 1.3 cm2. The inferior vena cava is dilated No collapse of the inferior vena cava. Small left pleural effusion. Compared to echo report from outside hospital from 07/03/2019, LV function has remained the same. There was no comment on aortic stensosi or pulmonary HTN. Posterior-Basal: Akinetic. Infero-Basal: Akinetic. Mid-Anterior : Severely Hypokinetic. Stress Test: Cardiac Cath: PCI: CT Surgery: Holter monitor: EPS: PPM: CXR: Chest CT Scan: Medical Necessity - Tobacco Use Smoking Status: Former smoker Tobacco Use: Cigarettes Assessment/Plan Interventional cardiology addendum: Patient seen and examined in conjunction with Lei rocha. I agree with above findings. In addition I have the following comments. 1. Ischemic cardiomyopathy: It is uncertain whether the patient's ischemic cardiomyopathy has been made worse by in-stent restenosis from his previously placed stents in his LAD and circumflex in June 2019. Unfortunately to repeat his heart catheterization would put him at high risk for acute on chronic renal failure and possibly permanent renal failure requiring hemodialysis. In addition the patient is severely anemic, possibly as a consequence of lack of erythropoietin as his dialysis discontinued about 1 month ago. This morning, the patient's respiratory status has deteriorated despite receiving a unit of PRBCs. I believe the patient has a significant component of biventricular congestive heart failure, superimposed on severe pulmonary hypertension and COPD. ABG this morning demonstrated relatively normal PCO2, but some hypoxia. Would recommend supplemental oxygenation and evaluation by ICU staff to determine if the patient requires transfer to ICU for further management. I recommend increasing his Lasix to 80 mg IV every 8 hours to assist with diuresis. In addition I recommend he undergo hemodialysis while his blood pressure is higher so that we can maximize hemodialysis and fluid extraction. Once he is able to lay down flat, we can then consider left and right heart catheterization. I recommend the patient eventually undergo a repeat left heart catheterization and in addition a right heart catheterization to confirm/deny the presence of significant and severe pulmonary pretension as evidenced on echocardiogram today. Patient may require consideration of aortic valve replacement most likely with TAVR provided his coronary stents are patent. I believe the patient may benefit from TAVR procedure if it is discovered the patient has significant aortic stenosis contributing to his overall pulmonary hypertension. To do this, the patient would most likely require a ROMERO first and he is in no condition for that as of this writing. He does have fairly robust 2+ carotid upstroke bilaterally indicating that he most likely does not have significant aortic stenosis. 2. Renal insufficiency: I recommend repeat consultation with patient's nephrology team and I have recommended the patient consider going back on dialysis on a permanent basis to assist with fluid management and blood purification as well as erythropoietin injections to maintain hemoglobin above 8.0. Patient is going to think about it, and will consult with his gel coat sprayer today. 3. Pulmonary hypertension: Patient's echocardiogram 02/04/2020 demonstrates severe pulmonary pretension, but this was not commented on specifically on his previous echocardiogram report from [facility] in June 2019. May want a consider evaluation of pulmonary emboli but to do so he would require VQ scan which may be problematic given his COPD and severe pulmonary pretension, and I do not believe he would able to tolerate that at this time. The patient does indeed have severe pulmonary hypertension he is at high risk for DVT and pulmonary embolism going forward I would most likely require long-term anticoagulation. 4. Hyperlipidemia: Continue statin based medications. 5. Depending upon the outcome of the patient's renal consult, will proceed with left and right heart catheterization sometime in the future. Continue baby aspirin and Plavix given his recent PCI in June 2019. 6. Thank you very much for the opportunity to participate in the cardiac care of your patient. Discussed with Dr. Perez. Inpatient E&M: 48708 Subs Hosp L2
[2020-02-05 08:29] LABS: Allen Test YES; O2 Delivery Device BIPAP
[2020-02-05 08:30] LABS: EPAP 8; FI02 25; IPAP 16; RR 12
[2020-02-05 08:32] LABS: Time Given 715
[2020-02-05 08:38] LABS: PO2 86 mmHG (75-100); pCO2 40.9 mmHg (35-45); pH 7.41 (7.35-7.45)
[2020-02-05 08:39] LABS: Base Excess 1 mmol/L (-2 to +2); Bicarbonate 26.1 mmol/L (22-26); SO2 97 % (95-99); Total Carbon Dioxide 27 mmol/L
--- NOTE | 2020-02-05 08:43 | CPS ---
Blood gas results cortext andd verified by Dr. Diaz by this FOOD AIDE.
[2020-02-05] MEDS: BRIMONIDINE 0.2% 5ML BOTTLE 1 DRP LEFT EYE ×2 (10:00→22:37)
[2020-02-05] MEDS: Timolol 0.5% 5ML OPTH.BTL 1 DRP EACH EYE ×2 (10:01→22:29)
--- NOTE | 2020-02-05 10:12 | PCM.CONS.R ---
Problem List (1) CHF exacerbation Status: Chronic (2) CKD (chronic kidney disease) Status: Chronic Consultation - Renal 02/05/20 PCP/ Referring MD: Requesting physician: [] Primary care physician: Sb Bolanos DO Reason for Consultation:: Acute on chronic renal failure - History of Present Illness History of Present Illness: The patient is a 75 year old M well-known to us. He has known history of CKD stage IV/V in the setting of congestive heart failure, diabetes, hypertension. He was admitted at [facility] in June with congestive heart failure. Initiated dialysis at that time. He did recover some of the kidney function and was able to come off dialysis few weeks ago. He is readmitted here with dyspnea for the last 2 weeks. BNP was elevated. He did receive IV Lasix but continues to have shortness of breath. BUN is now up to 96 and creatinine up to 3.6. Remains symptomatic significantly with hypoxia. Has some lower extremity edema which is better. No urinary complaints. - Allergies Allergies: Allergies budesonide Allergy (Severe, Verified 12/29/19 13:20) Other - can't breathe amoxicillin [From Augmentin] Allergy (Unknown, Verified 12/29/19 13:20) Unknown clavulanic acid [From Augmentin] Allergy (Unknown, Verified 12/29/19 13:20) Unknown Sulfa (Sulfonamide Antibiotics) Allergy (Unknown, Verified 12/29/19 13:20) Unknown - Current Medications Current Medications: Current Medications Albuterol Sulfate (Ventolin Aerosols) 2.5 mg INHALATION Q2H PRN PRN PRN Reason: SOB/Wheezing Last Admin: 02/05/20 00:26 Dose: 2.5 mg Documented by: Albuterol/Ipratropium (Duoneb) 3 ml INHALATION Q4H.RT KELIN Last Admin: 02/05/20 07:05 Dose: 3 ml Documented by: Atorvastatin Calcium (Lipitor) 80 mg PO QHS [facility] Last Admin: 02/04/20 22:38 Dose: 80 mg Documented by: Brimonidine Tartrate (Brimonidine 0.2% 5ml Bottle) 1 drop LEFT EYE BID [facility] Last Admin: 02/05/20 10:00 Dose: 1 drop Documented by: Buspirone HCl (Buspar) 5 mg PO TID PRN PRN PRN Reason: ANXIETY Clopidogrel Bisulfate (Plavix) 75 mg PO DAILY [facility] Last Admin: 02/04/20 08:31 Dose: 75 mg Documented by: Dextrose (D50w Syringe) 0 gm IV X1 PRN; Protocol PRN Reason: Hypoglycemia Ergocalciferol (Vitamin D) 50,000 unit PO Luna@1000 KELIN Furosemide (Lasix) 80 mg IV Q8 [facility] Glucagon () 1 mg IM .X1 PRN PRN Reason: Hypoglycemia Guaifenesin (Mucinex) 1,200 mg PO BID [facility] Last Admin: 02/04/20 22:38 Dose: 1,200 mg Documented by: Hydralazine HCl (Apresoline) 25 mg PO TID [facility] Last Admin: 02/05/20 06:14 Dose: 25 mg Documented by: Insulin Glargine (Lantus (Bk)) 15 units SC BID [facility] Insulin Human Lispro (Humalog Kwikpen ([facility])) 0 unit SC ACHS [facility]; Protocol Last Admin: 02/05/20 06:05 Dose: 15 units Documented by: Isosorbide Mononitrate (Imdur) 60 mg PO DAILY [facility] Latanoprost (Xalatan Opthalmic) 1 drop EACH EYE QHS [facility] Last Admin: 02/04/20 22:38 Dose: 1 drop Documented by: Methylprednisolone (Solu-Medrol) 40 mg IV Q8 [facility] Last Admin: 02/05/20 06:05 Dose: 40 mg Documented by: Metoprolol Succinate (Toprol Xl (Beta Antonette)) 12.5 mg PO DAILY [facility] Last Admin: 02/04/20 08:37 Dose: 12.5 mg Documented by: Nitroglycerin (Nitrostat) 0.4 mg SUBLINGUAL Q5M PRN PRN Reason: CARDIAC/CHEST PAIN Ondansetron HCl (Zofran) 4 mg IV Q8H PRN PRN PRN Reason: NAUSEA/VOMITING Sodium Chloride () 10 - 40 ml IV UD PRN PRN Reason: SALINE FLUSH Last Admin: 02/04/20 15:20 Dose: 10 ml Documented by: Sodium Chloride ([place] Nasal [place]) 2 spray NASAL Q4H PRN PRN PRN Reason: NASAL DRYNESS Last Admin: 02/04/20 07:00 Dose: 2 sprays Documented by: Timolol Maleate (Timoptic) 1 drop EACH EYE BID [facility] Last Admin: 02/05/20 10:01 Dose: 1 drop Documented by: Zolpidem Tartrate (Ambien (Generic)) 5 mg PO QHS PRN PRN PRN Reason: INSOMNIA Last Admin: 02/04/20 22:40 Dose: 5 mg Documented by: - Past Medical History Past Medical History (Chronic Problems): Chronic Problems (Last Reviewed 12/30/19 @ 07:[address] Yuan Heredia MD) CHF exacerbation (Chronic) CKD (chronic kidney disease) (Chronic) Insulin pump titration (Chronic) Diabetes mellitus (Chronic) Paroxysmal atrial fibrillation (Chronic 06/2019) Acute systolic (congestive) heart failure (Chronic) Ischemic cardiomyopathy (Chronic) NSVT (nonsustained ventricular tachycardia) (Chronic) Atherosclerosis of coronary artery of enterprise heart without angina pectoris (Chronic) [id number] and Mid LAD, GLADYS-Prox LCx into OM1; [employer] Mid RCA w/ Left-Right Septal Collaterals to RPDA 06/29/19 (HFpEF) heart failure with preserved ejection fraction (Chronic) Hyperlipidemia (Chronic) Essential (primary) hypertension (Chronic) Mobitz type I Wenckebach atrioventricular block (Chronic) Incomplete right bundle branch block (Chronic) Pulmonary nodule (Chronic) Chronic hypoxemic respiratory failure (Chronic) COPD (chronic obstructive pulmonary disease) (Chronic) - Past Surgical History Surgical History: no surgical history - Social History Smoking Status: Former smoker - Family History Maternal Family History: Family History (Last Reviewed 12/30/19 @ 07:[address] Yuan Heredia MD) Sister Diabetes Father Heart disease History Items: No pertinent history Paternal Family History: Family History (Last Reviewed 12/30/19 @ 07:[address] Yaun Heredia MD) Sister Diabetes Father Heart disease History Items: Heart Disease Review of Systems Constitutional: Denies: Chills, Fever, Weight Change HEENT: Denies: Head Aches, Sinus Congestion, Sinus Drainage Cardiovascular: Denies: Chest Pain, Palpitations Respiratory: Reports: Shortness of Breath, Shortness of breath at rest. Denies: Cough, Sputum production Gastrointestinal: Denies: Abdominal Pain, Nausea, Vomiting Genitourinary: Denies: Dysuria Musculoskeletal: Denies: Joint Pain, Joint Tenderness Skin: Denies: Rash, Wounds Neurological: Denies: Numbness, Tingling, Focal weakness Psychiatric: Denies: Anxiety, Depression, Homicidal Ideations, Suicidal Ideations Hematologic/ Lymphatic: Denies: Easy Bruising, Easy Bleeding Patient Problems: Active and Suspected Problems (Last Reviewed 12/30/19 @ 07:[address] Yuan Heredia MD) Acute respiratory failure (Acute) Anemia (Acute) Elevated troponin (Acute) - Physical Exam Vitals/I&O's: Vital Signs Temp Pulse Resp BP Pulse Ox 98.0 F 82 18 178/79 H 99 02/05/20 09:56 02/05/20 09:56 02/05/20 09:56 02/05/20 09:56 02/05/20 09:56 Oxygen Flow Rate (L/min) 4 Oxygen Delivery Method Nasal Cannula Weight: 76.9 kg Body Mass Index (BMI) 25.8 Finger Stick Blood Glucose 141 Intake and Output for Last 24 Hours 02/03/20 02/04/20 02/05/20 23:59 23:59 23:59 Intake Total 360 / 360 1560 / 1680 220 / 220 Output Total 525 / 525 1025 / 1340 640 / 640 Balance -165 / -165 535 / 340 -420 / -420 General: Alert, Oriented x3, Cooperative HEENT: Atraumatic, PERRLA, EOMI, Normocephalic Neck: Supple, No JVD, Negative Carotid Bruits Lungs: Rhonchi, Short of Breath Cardiovascular: Regular rate, No murmurs Abdomen: Bowel Sounds Present, Soft, Non Tender Extremities: No edema, Capillary Refill Less than 3 Seconds Skin: No rashes, No breakdown Musculoskeletal: No Tenderness to Palpation of Joints or Extremities Neurological: Cranial nerves II-XII grossly intact Psych/Mental Status: Normal Affect, Appropriate Microbiology Past 72 Hours 02/03/20 11:41 Blood Culture (Wb) - No Site/Description Given Blood Culture - Preliminary No growth in 48 hours. 02/03/20 11:35 Blood Culture (Wb) - Anticubital Right Blood Culture - Preliminary No growth in 48 hours. 02/03/20 12:00 Mucosa - Nose Rapid RSV (DFA) - Final 02/03/20 12:00 Mucosa - Nose Influenza Types A,B Direct FA (LEVI) - Final Laboratory Results 02/04/20 05:04: Iron 43 L, TIBC 202 L, Iron Saturation 21.3, Ferritin 804 H 02/04/20 07:20: Blood Type O POSITIVE, Antibody Screen NEGATIVE, Crossmatch See Detail 02/04/20 11:24: POC Glucose 266 H 02/04/20 16:58: POC Glucose 152 H 02/04/20 22:30: POC Glucose 418 H 02/05/20 05:40: WBC 10.4, RBC 3.29 L, Hgb 9.2 L, Hct 28.7 L, MCV 87.2, MCH 28.0, MCHC 32.1, RDW Std Deviation 44.0 H, RDW Coeff of Janel 14.0, Plt Count 215, MPV 11.1, Immature Gran % (Auto) 0.300, Neut % (Auto) 93.9 H, Lymph % (Auto) 2.4 L, Clinch % (Auto) 3.3, Eos % (Auto) 0.0, Baso % (Auto) 0.1, Absolute Neuts (auto) 9.7 H, Absolute Lymphs (auto) 0.25 L, Nucleated RBC % 0, Differential Comment SCANNED 02/05/20 05:40: Sodium 132 L, Potassium 4.2, Chloride 93 L, Carbon Dioxide 25.0, Anion Gap 14, BUN 96 H, Creatinine 3.46 H, Estim Creat Clear Calc 17.30, Est GFR (MDRD) Af Amer 22 L, Est GFR (MDRD) Non-Af 18 L, BUN/Creatinine Ratio 27.7 H, Glucose 488 H*, Calcium 8.5 02/05/20 06:01: POC Glucose 459 H* 02/05/20 07:15: Specimen Type ART, Sample Site L RADIAL, pH 7.41, Bicarbonate Actual 26.1 H, POC Total CO2 27, Base Excess 1, O2 Saturation 97, O2 % 25, ABG pCO2 40.9, ABG pO2 86, Price Test YES, Respiration Rate 12, O2 Delivery Device BIPAP, EPAP 8, IPAP 16, Blood Gas Notified Whom HOSP , Blood Gas Notified Time 715 Current Medications Albuterol Sulfate (Ventolin Aerosols) 2.5 mg INHALATION Q2H PRN PRN PRN Reason: SOB/Wheezing Last Admin: 02/05/20 00:26 Dose: 2.5 mg Documented by: Albuterol/Ipratropium (Duoneb) 3 ml INHALATION Q4H.RT KELIN Last Admin: 02/05/20 07:05 Dose: 3 ml Documented by: Atorvastatin Calcium (Lipitor) 80 mg PO QHS [facility] Last Admin: 02/04/20 22:38 Dose: 80 mg Documented by: Brimonidine Tartrate (Brimonidine 0.2% 5ml Bottle) 1 drop LEFT EYE BID [facility] Last Admin: 02/05/20 10:00 Dose: 1 drop Documented by: Buspirone HCl (Buspar) 5 mg PO TID PRN PRN PRN Reason: ANXIETY Clopidogrel Bisulfate (Plavix) 75 mg PO DAILY [facility] Last Admin: 02/04/20 08:31 Dose: 75 mg Documented by: Dextrose (D50w Syringe) 0 gm IV X1 PRN; Protocol PRN Reason: Hypoglycemia Ergocalciferol (Vitamin D) 50,000 unit PO Luna@1000 [facility] Furosemide (Lasix) 80 mg IV Q8 [facility] Glucagon () 1 mg IM .X1 PRN PRN Reason: Hypoglycemia Guaifenesin (Mucinex) 1,200 mg PO BID [facility] Last Admin: 02/04/20 22:38 Dose: 1,200 mg Documented by: Hydralazine HCl (Apresoline) 25 mg PO TID [facility] Last Admin: 02/05/20 06:14 Dose: 25 mg Documented by: Insulin Glargine (Lantus (Bkc)) 15 units SC BID [facility] Insulin Human Lispro (Humalog Kwikpen (Bkc)) 0 unit SC ACHS [facility]; Protocol Last Admin: 02/05/20 06:05 Dose: 15 units Documented by: Isosorbide Mononitrate (Imdur) 60 mg PO DAILY [facility] Latanoprost (Xalatan Opthalmic) 1 drop EACH EYE QHS [facility] Last Admin: 02/04/20 22:38 Dose: 1 drop Documented by: Methylprednisolone (Solu-Medrol) 40 mg IV Q8 [facility] Last Admin: 02/05/20 06:05 Dose: 40 mg Documented by: Metoprolol Succinate (Toprol Xl (Beta Antonette)) 12.5 mg PO DAILY [facility] Last Admin: 02/04/20 08:37 Dose: 12.5 mg Documented by: Nitroglycerin (Nitrostat) 0.4 mg SUBLINGUAL Q5M PRN PRN Reason: CARDIAC/CHEST PAIN Ondansetron HCl (Zofran) 4 mg IV Q8H PRN PRN PRN Reason: NAUSEA/VOMITING Sodium Chloride () 10 - 40 ml IV UD PRN PRN Reason: SALINE FLUSH Last Admin: 02/04/20 15:20 Dose: 10 ml Documented by: Sodium Chloride ([place] Nasal [place]) 2 spray NASAL Q4H PRN PRN PRN Reason: NASAL DRYNESS Last Admin: 02/04/20 07:00 Dose: 2 sprays Documented by: Timolol Maleate (Timoptic) 1 drop EACH EYE BID KELIN Last Admin: 02/05/20 10:01 Dose: 1 drop Documented by: Zolpidem Tartrate (Ambien (Generic)) 5 mg PO QHS PRN PRN PRN Reason: INSOMNIA Last Admin: 02/04/20 22:40 Dose: 5 mg Documented by: Assessment/Plan All Active Problems (Last Reviewed 12/30/19 @ 07:[address] Yuan Heredia MD) Acute respiratory failure (Acute) Anemia (Acute) Elevated troponin (Acute) Mitral regurgitation (Acute) Aortic stenosis (Acute) Acute blood loss anemia (Acute) History of coronary artery stent placement (Resolved 06/29/19) History of non-ST elevation myocardial infarction (NSTEMI) (Resolved 06/25/19) Acute kidney injury superimposed on chronic kidney disease (Resolved) Shortness of breath (Resolved) Acute renal failure Chronic kidney disease stage IV Congestive heart failure In decompensated heart failure. Troponins are elevated. Had coronary angiogram in June and will need repeat evaluation. Fluid overload despite receiving IV Lasix. We will go ahead and plan for dialysis today. Surgery consult placed for placement of tunneled dialysis catheter. He is n.p.o. However he was on Plavix for history of stents in June. We will have to check with cardiology if this can be held for tunneled dialysis catheter placement. anemia. He did receive blood transfusion.
[2020-02-05] MEDS: Metoprolol(XL)Succ 25 MG Tablet 12.5 MG PO (10:17)
[2020-02-05] MEDS: Isosorbide Mononitrate 60 MG Tablet PO (10:19)
--- NOTE | 2020-02-05 10:21 | PCM.CONS.PUL ---
Reason for Consult Date of Consultation: 02/05/20 Reason for Consultation: Severe pulmonary hypertension/COPD History of Present Illness: The patient is a 75-year-old male, with a history as outlined below, who presented to the emergency department on February 02 with complaints of shortness of breath. The patient is followed chronically in the pulmonary medicine clinic due to a history of chronic hypoxemic respiratory failure and severe COPD. The patient reported that in the morning of his presentation to the hospital that he became rather acutely short of breath. He states that it is typical for him to experience some dyspnea first thing in the morning but that his shortness of breath typically responds to the use of his short acting bronchodilator. This was not the case on the morning of February 02. The patient has a baseline oxygen requirement of 3 L/min of pulse dose supplemental oxygen when out in public continuous-flow at home. He is a former smoker of approximately 50 pack years, but quit in 2013. 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 He is on a triple therapy inhaler regimen at his baseline and has previously completed pulmonary rehabilitation. On presentation to the emergency department, the patient was noted to be afebrile and hemodynamically stable. He was tachypneic nonetheless and requiring continuous CPAP therapy. Laboratory evaluation revealed a mildly elevated white blood cell count. Initial hemoglobin was noted to be 8.8 g/dL. Coagulation profile was within normal limits. Chemistry profile was notable for a creatinine of 3.07. Lactate was within normal limits. Initial troponin was elevated to 0.146 with an elevated BNP to 426. Plain film chest x-ray revealed stigmata of pulmonary vascular congestion and CHF. The patient was initially treated with bronchodilators and IV steroids. He was given IV Lasix and admitted to the progressive care unit for further management. Past Medical History Past Medical History (Chronic Problems): Chronic Problems (Last Reviewed 12/30/19 @ 07:[address] Yuan Heredia MD) CHF exacerbation (Chronic) CKD (chronic kidney disease) (Chronic) Insulin pump titration (Chronic) Diabetes mellitus (Chronic) Paroxysmal atrial fibrillation (Chronic 06/2019) Acute systolic (congestive) heart failure (Chronic) Ischemic cardiomyopathy (Chronic) NSVT (nonsustained ventricular tachycardia) (Chronic) Atherosclerosis of coronary artery of [place] heart without angina pectoris (Chronic) [id number]-[id number] and Mid LAD, GLADYS-Prox LCx into OM1; COMPRESSOR OPERATOR PORTABLE Mid RCA w/ Left-Right Septal Collaterals to RPDA 06/29/19 (HFpEF) heart failure with preserved ejection fraction (Chronic) Hyperlipidemia (Chronic) Essential (primary) hypertension (Chronic) Mobitz type I Wenckebach atrioventricular block (Chronic) Incomplete right bundle branch block (Chronic) Pulmonary nodule (Chronic) Chronic hypoxemic respiratory failure (Chronic) COPD (chronic obstructive pulmonary disease) (Chronic) Medical History: Medical History (Last Reviewed 12/30/19 @ 07:[address] Yuan Heredia MD) Paroxysmal atrial fibrillation (Chronic) Onset Date: 06/2019 I48.0 Acute systolic (congestive) heart failure (Chronic) I50.21 Ischemic cardiomyopathy (Chronic) I25.5 NSVT (nonsustained ventricular tachycardia) (Chronic) I47.2 Atherosclerosis of coronary artery of [place] heart without angina pectoris (Chronic) I25.10 FLT-JCW-Cozu and Mid LAD, GLADYS-Prox LCx into OM1; COMPRESSOR OPERATOR PORTABLE Mid RCA w/ Left-Right Septal Collaterals to RPDA 06/29/19 (HFpEF) heart failure with preserved ejection fraction (Chronic) I50.30 Hyperlipidemia (Chronic) E78.5 Essential (primary) hypertension (Chronic) I10 Mobitz type I Wenckebach atrioventricular block (Chronic) I44.1 History of non-ST elevation myocardial infarction (NSTEMI) (Resolved) Onset Date: 06/25/19 I25.2 Incomplete right bundle branch block (Chronic) I45.10 Pulmonary nodule (Chronic) R91.1 Chronic hypoxemic respiratory failure (Chronic) J96.11 COPD (chronic obstructive pulmonary disease) (Chronic) J44.9 Chronic steroid use Dialysis patient Z99.2 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 E10.649 Hyponatremia E87.1 Overweight E66.3 Pedal edema R60.0 Allergic rhinitis J30.9 Anemia D64.9 Anemia D64.9 Benign localized hyperplasia of prostate N40.0 CKD (chronic kidney disease) stage 4, GFR 15-29 ml/min N18.4 On dialysis COPD (chronic obstructive pulmonary disease) J44.9 Carpal tunnel syndrome G56.00 Chronic allergic rhinitis J30.9 Chronic otitis media H66.90 Epistaxis R04.0 Former smoker Z87.891 GERD (gastroesophageal reflux disease) K21.9 GI bleed Onset Date: 06/28/19 K92.2 History of prostate cancer Z85.46 assisted (current) use of insulin Z79.4 Low back pain M54.5 Neuralgia M79.2 Nonallopathic lesion of lumbar region M99.9 Nonallopathic lesion of rib cage M99.9 Nonallopathic lesion of sacral region M99.9 Nonallopathic lesion of thoracic region, not elsewhere classified M99.9 Otalgia H92.09 Otitis externa H60.90 PVD (peripheral vascular disease) I73.9 Pain in lower limb M79.606 Peripheral vascular insufficiency I73.9 Thoracic back pain M54.6 Thoracic outlet syndrome G54.0 Type I diabetes mellitus E10.9 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 Constipation K59.00 Serous otitis media H65.90 Wax in ear H61.20 Reactive airway disease J45.909 Allergies budesonide Allergy (Severe, Verified 12/29/19 13:20) Other - can't breathe amoxicillin [From Augmentin] Allergy (Unknown, Verified 12/29/19 13:20) Unknown clavulanic acid [From Augmentin] Allergy (Unknown, Verified 12/29/19 13:20) Unknown Sulfa (Sulfonamide Antibiotics) Allergy (Unknown, Verified 12/29/19 13:20) Unknown Home Medications: Ambulatory Orders Medication Instructions Recorded latanoprost 0.005 % eye drops 1 drp EACH EYE DAILY ml 11/15/17 albuterol sulfate 90 mcg/actuation 2 puff INHALATION Q6H PRN PRN #18 g 08/05/19 aerosol inhaler aspirin 81 mg tablet,delayed 81 mg PO DAILY #90 tab 08/06/19 release atorvastatin 80 mg tablet 80 mg PO QHS #90 tab 08/06/19 clopidogrel 75 mg tablet 75 mg PO DAILY #90 tab 08/06/19 hydralazine 25 mg tablet 25 mg PO TID #270 tab 08/06/19 isosorbide mononitrate 30 mg 30 mg PO DAILY #90 tab 08/06/19 tablet,extended release 24 hr metoprolol succinate 25 mg 12.5 mg PO DAILY #60 tab 08/06/19 tablet,extended release 24 hr insulin lispro 100 unit/mL See Rx Instructions SC DAILY ml 09/12/19 subcutaneous solution brimonidine 0.2 % eye drops 1 drp LEFT EYE BID ml 10/01/19 timolol 0.5 % eye drops 1 drp EACH EYE DAILY ml 10/01/19 blood sugar diagnostic See Rx Instructions .ROUTE 11/24/19 .MEDSUPPLY #150 ea fluticasone furoate 200 1 inh INHALATION DAILY #3 device 01/26/20 mcg-vilanterol 25 mcg/dose inhalation powder umeclidinium 62.5 mcg/actuation 1 inh INHALATION DAILY #3 ea 01/26/20 blister powder for inhalation Bumetanide [Bumex] 2 mg PO BID 02/03/20 Ergocalciferol (Vitamin D2) 50,000 unit PO CUNHA 02/03/20 [Vitamin D2] Insulin Lispro [Humalog] See Protocol SQ DAILY 02/03/20 Surgical History: Surgical History (Last Reviewed 12/30/19 @ 07:[address] Yuan Heredia MD) History of coronary artery stent placement (Resolved) Onset Date: 06/29/19 Z95.5 PCI-GLADYS-Mid LAD w/ 3.5 x 18 mm Xience Isabel Stent, Prox LAD w/ 3.5 x 33 mm Xience Isabel Stent, GLADYS-Prox LCx into OM1 w/ 3.0 x 38 mm Xience Isabel Stent; COMPRESSOR OPERATOR PORTABLE Mid RCA w/ Left-Right Septal Collaterals to RPDA 06/29/19 H/O inguinal hernia repair Z98.890, Z87.19 Left; Dr. Osuna H/O prostate biopsy Z98.890 Dr. Hernandez History of appendectomy Z98.890, Z90.49 History of carpal tunnel surgery of left wrist Z98.890 S/P bilateral foot surgery Z98.890 S/P rotator cuff repair Z98.890 right Surgical History: no surgical history Psychiatric History: No pertinent psych hx Smoking Status: Former smoker Tobacco Use: Cigarettes - *Family History Maternal Family History: Family History (Last Reviewed 12/30/19 @ 07:[address] Yuan Heredia MD) Sister Diabetes Father Heart disease History Items: No pertinent history Paternal Family History: Family History (Last Reviewed 12/30/19 @ 07:[address] Yuan Heredia MD) Sister Diabetes Father Heart disease History Items: Heart Disease Review of Systems Constitutional: Reports: Malaise, Fatigue. Denies: Chills, Fever Eyes: Denies: Blurred vision, Double vision HEENT: Reports: Difficulty Hearing. Denies: Head Aches, Sinus Congestion, Sinus Drainage Cardiovascular: Reports: Edema. Denies: Chest Pain Respiratory: Reports: Shortness of Breath Gastrointestinal: Denies: Abdominal Pain, Nausea, Vomiting Genitourinary: Denies: Dysuria Musculoskeletal: Denies: Joint Pain, Joint Tenderness Skin: Denies: Rash, Wounds Neurological: Denies: Numbness, Tingling, Focal weakness Psychiatric: Denies: Anxiety, Depression, Homicidal Ideations, Suicidal Ideations Hematologic/ Lymphatic: Denies: Easy Bruising, Easy Bleeding Patient Problems: Active and Suspected Problems (Last Reviewed 12/30/19 @ 07:[address] Yuan Heredia MD) Acute respiratory failure (Acute) Anemia (Acute) Elevated troponin (Acute) Objective: The patient's most recent lab work, culture data and imaging studies have all been personally reviewed. Rapid RSV and influenza screen was negative. Blood cultures have shown no growth to date. Surface echocardiogram dated February 03 revealed evidence of combined systolic and diastolic heart failure with an ejection fraction of 30%. Right ventricular systolic pressure was estimated to be 64 mmHg. - Physical Exam Vitals/I&O's: Vital Signs Temp Pulse Resp BP Pulse Ox 98.0 F 82 18 178/79 H 99 02/05/20 09:56 02/05/20 10:17 02/05/20 09:56 02/05/20 09:56 02/05/20 09:56 Oxygen Flow Rate (L/min) 4 Oxygen Delivery Method Nasal Cannula Weight: 169 lb 8.568 oz Body Mass Index (BMI) 25.8 Finger Stick Blood Glucose 141 Intake and Output for Last 24 Hours 02/03/20 02/04/20 02/05/20 23:59 23:59 23:59 Intake Total 360 / 360 1560 / 1680 220 / 220 Output Total 525 / 525 1025 / 1340 640 / 640 Balance -165 / -165 535 / 340 -420 / -420 General: Alert, Oriented x3, Cooperative HEENT: Atraumatic, Normocephalic Oral: No Gingival or Mucosal Lesions/ Ulcerations Neck: Supple, No Nodes, Trachea Midline Lungs: No rhonchi, Diminished, Tachypneic, Wheezes, - - + Conversational dyspnea Cardiovascular: Regular rate, Regular Rhythm, Normal S1, Normal S2, Murmur Abdomen: Bowel Sounds Present, Soft, Non Tender Extremities: No clubbing, No cyanosis, Edema Skin: No breakdown Musculoskeletal: No Tenderness to Palpation of Joints or Extremities Lymphatic: No Cervical, Supraclavicular, or Inguinal Adenopathy Neurological: Cranial nerves II-XII grossly intact, Neuro grossly intact Psych/Mental Status: Normal Affect, Appropriate Labs (Last 48 Hours) 02/03/20 02/03/20 02/03/20 11:35 11:35 11:35 WBC 11.8 H RBC 3.11 L Hgb 8.8 L Hct 28.2 L MCV 90.7 MCH 28.3 MCHC 31.2 L RDW Std Deviation 43.0 RDW Coeff of Janel 13.1 Plt Count 314 MPV 11.1 Immature Gran % (Auto) 0.600 Neut % (Auto) 83.8 H Lymph % (Auto) 5.9 L [place] % (Auto) 7.2 Eos % (Auto) 2.0 Baso % (Auto) 0.5 Absolute Neuts (auto) 9.9 H Absolute Lymphs (auto) 0.70 L Nucleated RBC % 0 Differential Comment Platelet Estimate PT 13.9 INR 1.1 APTT 34.6 Specimen Type Sample Site pH Bicarbonate Actual POC Total CO2 Base Excess O2 Saturation O2 % ABG pCO2 ABG pO2 Price Test Respiration Rate O2 Delivery Device EPAP IPAP Blood Gas Notified Whom Blood Gas Notified Time Sodium 135 L Potassium 4.5 Chloride 94 L Carbon Dioxide 33.0 H Anion Gap 8 BUN 67 H Creatinine 3.07 H Estim Creat Clear Calc 19.50 Est GFR (MDRD) Af Amer 26 L Est GFR (MDRD) Non-Af 21 L BUN/Creatinine Ratio 21.8 H Glucose 206 H Lactic Acid Calcium 8.4 L Phosphorus Magnesium Iron TIBC Iron Saturation Ferritin Total Bilirubin Direct Bilirubin AST ALT Alkaline Phosphatase Troponin I 0.146 H B-Natriuretic Peptide Total Protein Albumin Globulin POC Glucose Blood Type Antibody Screen Crossmatch 02/03/20 02/03/20 02/03/20 11:35 11:35 11:35 WBC RBC Hgb Hct MCV MCH MCHC RDW Std Deviation RDW Coeff of Janel Plt Count MPV Immature Gran % (Auto) Neut % (Auto) Lymph % (Auto) [place] % (Auto) Eos % (Auto) Baso % (Auto) Absolute Neuts (auto) Absolute Lymphs (auto) Nucleated RBC % Differential Comment Platelet Estimate PT INR APTT Specimen Type Sample Site pH Bicarbonate Actual POC Total CO2 Base Excess O2 Saturation O2 % ABG pCO2 ABG pO2 Price Test Respiration Rate O2 Delivery Device EPAP IPAP Blood Gas Notified Whom Blood Gas Notified Time Sodium Potassium Chloride Carbon Dioxide Anion Gap BUN Creatinine Estim Creat Clear Calc Est GFR (MDRD) Af Amer Est GFR (MDRD) Non-Af BUN/Creatinine Ratio Glucose Lactic Acid 1.8 Calcium Phosphorus Magnesium Iron TIBC Iron Saturation Ferritin Total Bilirubin 0.70 Direct Bilirubin 0.18 AST 31 ALT 41 Alkaline Phosphatase 131 H Troponin I B-Natriuretic Peptide 426.7 H Total Protein 8.1 Albumin 3.4 Globulin 4.7 H POC Glucose Blood Type Antibody Screen Crossmatch 02/03/20 02/03/20 02/03/20 12:20 14:11 16:07 WBC RBC Hgb Hct MCV MCH MCHC RDW Std Deviation RDW Coeff of Janel Plt Count MPV Immature Gran % (Auto) Neut % (Auto) Lymph % (Auto) [place] % (Auto) Eos % (Auto) Baso % (Auto) Absolute Neuts (auto) Absolute Lymphs (auto) Nucleated RBC % Differential Comment Platelet Estimate PT INR APTT Specimen Type ART Sample Site R RADIAL pH 7.39 Bicarbonate Actual 28.0 H POC Total CO2 29 Base Excess 3 H O2 Saturation 95 O2 % 25 ABG pCO2 45.9 H ABG pO2 78 Price Test POS Respiration Rate O2 Delivery Device Bi Pap EPAP 8 IPAP 14 Blood Gas Notified Whom ED MD Blood Gas Notified Time 1225 Sodium Potassium Chloride Carbon Dioxide Anion Gap BUN Creatinine Estim Creat Clear Calc Est GFR (MDRD) Af Amer Est GFR (MDRD) Non-Af BUN/Creatinine Ratio Glucose Lactic Acid Calcium Phosphorus Magnesium Iron TIBC Iron Saturation Ferritin Total Bilirubin Direct Bilirubin AST ALT Alkaline Phosphatase Troponin I B-Natriuretic Peptide Total Protein Albumin Globulin POC Glucose 141 H 136 H Blood Type Antibody Screen Crossmatch 02/03/20 02/03/20 02/03/20 16:22 18:47 21:03 WBC RBC Hgb Hct MCV MCH MCHC RDW Std Deviation RDW Coeff of Janel Plt Count MPV Immature Gran % (Auto) Neut % (Auto) Lymph % (Auto) [place] % (Auto) Eos % (Auto) Baso % (Auto) Absolute Neuts (auto) Absolute Lymphs (auto) Nucleated RBC % Differential Comment Platelet Estimate PT INR APTT Specimen Type Sample Site pH Bicarbonate Actual POC Total CO2 Base Excess O2 Saturation O2 % ABG pCO2 ABG pO2 Price Test Respiration Rate O2 Delivery Device EPAP IPAP Blood Gas Notified Whom Blood Gas Notified Time Sodium Potassium Chloride Carbon Dioxide Anion Gap BUN Creatinine Estim Creat Clear Calc Est GFR (MDRD) Af Amer Est GFR (MDRD) Non-Af BUN/Creatinine Ratio Glucose Lactic Acid Calcium Phosphorus Magnesium Iron TIBC Iron Saturation Ferritin Total Bilirubin Direct Bilirubin AST ALT Alkaline Phosphatase Troponin I 0.970 H* 1.480 H* B-Natriuretic Peptide Total Protein Albumin Globulin POC Glucose 228 H Blood Type Antibody Screen Crossmatch 02/03/20 02/04/20 02/04/20 22:00 02:51 05:04 WBC 5.6 RBC 2.41 L Hgb 6.9 L Hct 21.5 L MCV 89.2 MCH 28.6 MCHC 32.1 RDW Std Deviation 42.7 RDW Coeff of Janel 13.1 Plt Count 165 MPV 10.6 Immature Gran % (Auto) 0.500 Neut % (Auto) 92.0 H Lymph % (Auto) 3.4 L [place] % (Auto) 3.9 Eos % (Auto) 0.0 Baso % (Auto) 0.2 Absolute Neuts (auto) 5.1 Absolute Lymphs (auto) 0.19 L Nucleated RBC % 0 Differential Comment SCANNED Platelet Estimate ADEQUATE PT INR APTT Specimen Type Sample Site pH Bicarbonate Actual POC Total CO2 Base Excess O2 Saturation O2 % ABG pCO2 ABG pO2 Price Test Respiration Rate O2 Delivery Device EPAP IPAP Blood Gas Notified Whom Blood Gas Notified Time Sodium Potassium Chloride Carbon Dioxide Anion Gap BUN Creatinine Estim Creat Clear Calc Est GFR (MDRD) Af Amer Est GFR (MDRD) Non-Af BUN/Creatinine Ratio Glucose Lactic Acid Calcium Phosphorus Magnesium Iron TIBC Iron Saturation Ferritin Total Bilirubin Direct Bilirubin AST ALT Alkaline Phosphatase Troponin I 1.510 H* B-Natriuretic Peptide Total Protein Albumin Globulin POC Glucose 332 H Blood Type Antibody Screen Crossmatch 02/04/20 02/04/20 02/04/20 05:04 05:04 05:04 WBC RBC Hgb Hct MCV MCH MCHC RDW Std Deviation RDW Coeff of Janel Plt Count MPV Immature Gran % (Auto) Neut % (Auto) Lymph % (Auto) [place] % (Auto) Eos % (Auto) Baso % (Auto) Absolute Neuts (auto) Absolute Lymphs (auto) Nucleated RBC % Differential Comment Platelet Estimate PT INR APTT Specimen Type Sample Site pH Bicarbonate Actual POC Total CO2 Base Excess O2 Saturation O2 % ABG pCO2 ABG pO2 Price Test Respiration Rate O2 Delivery Device EPAP IPAP Blood Gas Notified Whom Blood Gas Notified Time Sodium 135 L Potassium 3.5 Chloride 96 L Carbon Dioxide 28.0 Anion Gap 11 BUN 80 H Creatinine 3.20 H Estim Creat Clear Calc 18.70 Est GFR (MDRD) Af Amer 24 L Est GFR (MDRD) Non-Af 20 L BUN/Creatinine Ratio 25.0 H Glucose 342 H Lactic Acid Calcium 8.0 L Phosphorus 3.5 Magnesium 2.0 Iron 43 L TIBC 202 L Iron Saturation 21.3 Ferritin 804 H Total Bilirubin Direct Bilirubin AST ALT Alkaline Phosphatase Troponin I B-Natriuretic Peptide Total Protein Albumin Globulin POC Glucose Blood Type Antibody Screen Crossmatch 02/04/20 02/04/20 02/04/20 06:42 07:20 08:12 WBC 6.3 RBC 2.45 L Hgb 7.0 L Hct 21.8 L MCV 89.0 MCH 28.6 MCHC 32.1 RDW Std Deviation 42.5 RDW Coeff of Janel 13.1 Plt Count 168 MPV 10.7 Immature Gran % (Auto) 0.600 Neut % (Auto) 91.6 H Lymph % (Auto) 3.2 L [place] % (Auto) 4.6 Eos % (Auto) 0.0 Baso % (Auto) 0.0 Absolute Neuts (auto) 5.8 Absolute Lymphs (auto) 0.20 L Nucleated RBC % 0 Differential Comment COMMENT Platelet Estimate PT INR APTT Specimen Type Sample Site pH Bicarbonate Actual POC Total CO2 Base Excess O2 Saturation O2 % ABG pCO2 ABG pO2 Price Test Respiration Rate O2 Delivery Device EPAP IPAP Blood Gas Notified Whom Blood Gas Notified Time Sodium Potassium Chloride Carbon Dioxide Anion Gap BUN Creatinine Estim Creat Clear Calc Est GFR (MDRD) Af Amer Est GFR (MDRD) Non-Af BUN/Creatinine Ratio Glucose Lactic Acid Calcium Phosphorus Magnesium Iron TIBC Iron Saturation Ferritin Total Bilirubin Direct Bilirubin AST ALT Alkaline Phosphatase Troponin I B-Natriuretic Peptide Total Protein Albumin Globulin POC Glucose 295 H Blood Type O POSITIVE Antibody Screen NEGATIVE Crossmatch See Detail 02/04/20 02/04/20 02/04/20 08:18 11:24 16:58 WBC RBC Hgb Hct MCV MCH MCHC RDW Std Deviation RDW Coeff of Janel Plt Count MPV Immature Gran % (Auto) Neut % (Auto) Lymph % (Auto) [place] % (Auto) Eos % (Auto) Baso % (Auto) Absolute Neuts (auto) Absolute Lymphs (auto) Nucleated RBC % Differential Comment Platelet Estimate PT INR APTT Specimen Type Sample Site pH Bicarbonate Actual POC Total CO2 Base Excess O2 Saturation O2 % ABG pCO2 ABG pO2 Price Test Respiration Rate O2 Delivery Device EPAP IPAP Blood Gas Notified Whom Blood Gas Notified Time Sodium Potassium Chloride Carbon Dioxide Anion Gap BUN Creatinine Estim Creat Clear Calc Est GFR (MDRD) Af Amer Est GFR (MDRD) Non-Af BUN/Creatinine Ratio Glucose Lactic Acid Calcium Phosphorus Magnesium Iron TIBC Iron Saturation Ferritin Total Bilirubin Direct Bilirubin AST ALT Alkaline Phosphatase Troponin I B-Natriuretic Peptide Total Protein Albumin Globulin POC Glucose 295 H 266 H 152 H Blood Type Antibody Screen Crossmatch 02/04/20 02/05/20 02/05/20 22:30 05:40 05:40 WBC 10.4 RBC 3.29 L Hgb 9.2 L Hct 28.7 L MCV 87.2 MCH 28.0 MCHC 32.1 RDW Std Deviation 44.0 H RDW Coeff of Janel 14.0 Plt Count 215 MPV 11.1 Immature Gran % (Auto) 0.300 Neut % (Auto) 93.9 H Lymph % (Auto) 2.4 L [place] % (Auto) 3.3 Eos % (Auto) 0.0 Baso % (Auto) 0.1 Absolute Neuts (auto) 9.7 H Absolute Lymphs (auto) 0.25 L Nucleated RBC % 0 Differential Comment SCANNED Platelet Estimate PT INR APTT Specimen Type Sample Site pH Bicarbonate Actual POC Total CO2 Base Excess O2 Saturation O2 % ABG pCO2 ABG pO2 Price Test Respiration Rate O2 Delivery Device EPAP IPAP Blood Gas Notified Whom Blood Gas Notified Time Sodium 132 L Potassium 4.2 Chloride 93 L Carbon Dioxide 25.0 Anion Gap 14 BUN 96 H Creatinine 3.46 H Estim Creat Clear Calc 17.30 Est GFR (MDRD) Af Amer 22 L Est GFR (MDRD) Non-Af 18 L BUN/Creatinine Ratio 27.7 H Glucose 488 H* Lactic Acid Calcium 8.5 Phosphorus Magnesium Iron TIBC Iron Saturation Ferritin Total Bilirubin Direct Bilirubin AST ALT Alkaline Phosphatase Troponin I B-Natriuretic Peptide Total Protein Albumin Globulin POC Glucose 418 H Blood Type Antibody Screen Crossmatch 02/05/20 02/05/20 06:01 07:15 WBC RBC Hgb Hct MCV MCH MCHC RDW Std Deviation RDW Coeff of Janel Plt Count MPV Immature Gran % (Auto) Neut % (Auto) Lymph % (Auto) [place] % (Auto) Eos % (Auto) Baso % (Auto) Absolute Neuts (auto) Absolute Lymphs (auto) Nucleated RBC % Differential Comment Platelet Estimate PT INR APTT Specimen Type ART Sample Site L RADIAL pH 7.41 Bicarbonate Actual 26.1 H POC Total CO2 27 Base Excess 1 O2 Saturation 97 O2 % 25 ABG pCO2 40.9 ABG pO2 86 Price Test YES Respiration Rate 12 O2 Delivery Device BIPAP EPAP 8 IPAP 16 Blood Gas Notified Whom HOSP Blood Gas Notified Time 715 Sodium Potassium Chloride Carbon Dioxide Anion Gap BUN Creatinine Estim Creat Clear Calc Est GFR (MDRD) Af Amer Est GFR (MDRD) Non-Af BUN/Creatinine Ratio Glucose Lactic Acid Calcium Phosphorus Magnesium Iron TIBC Iron Saturation Ferritin Total Bilirubin Direct Bilirubin AST ALT Alkaline Phosphatase Troponin I B-Natriuretic Peptide Total Protein Albumin Globulin POC Glucose 459 H* Blood Type Antibody Screen Crossmatch Microbiology 02/03/20 11:41 Blood Culture (Wb) - No Site/Description Given Blood Culture - Preliminary No growth in 48 hours. 02/03/20 11:35 Blood Culture (Wb) - Anticubital Right Blood Culture - Preliminary No growth in 48 hours. 02/03/20 12:00 Mucosa - Nose Rapid RSV (DFA) - Final 02/03/20 12:00 Mucosa - Nose Influenza Types A,B Direct FA (LEVI) - Final Clinical Impression(s) from Imaging Studies Chest X-Ray 02/03/20 11:43 IMPRESSION: Findings in keeping with CHF superimposed on chronic basilar scarring with small bilateral effusions. Electronically Signed: Fabricio Shah, at 12:39 EDT , Service support , Current Medications Albuterol Sulfate (Ventolin Aerosols) 2.5 mg INHALATION Q2H PRN PRN PRN Reason: SOB/Wheezing Last Admin: 02/05/20 00:26 Dose: 2.5 mg Documented by: Albuterol/Ipratropium (Duoneb) 3 ml INHALATION Q4H.RT [facility] Last Admin: 02/05/20 07:05 Dose: 3 ml Documented by: Atorvastatin Calcium (Lipitor) 80 mg PO QHS [facility] Last Admin: 02/04/20 22:38 Dose: 80 mg Documented by: Brimonidine Tartrate (Brimonidine 0.2% 5ml Bottle) 1 drop LEFT EYE BID [facility] Last Admin: 02/05/20 10:00 Dose: 1 drop Documented by: Buspirone HCl (Buspar) 5 mg PO TID PRN PRN PRN Reason: ANXIETY Clopidogrel Bisulfate (Plavix) 75 mg PO DAILY [facility] Last Admin: 02/04/20 08:31 Dose: 75 mg Documented by: Dextrose (D50w Syringe) 0 gm IV X1 PRN; Protocol PRN Reason: Hypoglycemia Ergocalciferol (Vitamin D) 50,000 unit PO Cunha@1000 [facility] Furosemide (Lasix) 80 mg IV Q8 KELIN Glucagon () 1 mg IM .X1 PRN PRN Reason: Hypoglycemia Guaifenesin (Mucinex) 1,200 mg PO BID [facility] Last Admin: 02/04/20 22:38 Dose: 1,200 mg Documented by: Hydralazine HCl (Apresoline) 25 mg PO TID [facility] Last Admin: 02/05/20 06:14 Dose: 25 mg Documented by: Insulin Glargine (Lantus (Bkc)) 15 units SC BID [facility] Insulin Human Lispro (Humalog Kwikpen (Bk)) 0 unit SC ACHS [facility]; Protocol Last Admin: 02/05/20 06:05 Dose: 15 units Documented by: Isosorbide Mononitrate (Imdur) 60 mg PO DAILY [facility] Last Admin: 02/05/20 10:19 Dose: 60 mg Documented by: Latanoprost (Xalatan Opthalmic) 1 drop EACH EYE QHS [facility] Last Admin: 02/04/20 22:38 Dose: 1 drop Documented by: Methylprednisolone (Solu-Medrol) 40 mg IV Q8 [facility] Last Admin: 02/05/20 06:05 Dose: 40 mg Documented by: Metoprolol Succinate (Toprol Xl (Beta Antonette)) 12.5 mg PO DAILY [facility] Last Admin: 02/05/20 10:17 Dose: 12.5 mg Documented by: Nitroglycerin (Nitrostat) 0.4 mg SUBLINGUAL Q5M PRN PRN Reason: CARDIAC/CHEST PAIN Ondansetron HCl (Zofran) 4 mg IV Q8H PRN PRN PRN Reason: NAUSEA/VOMITING Sodium Chloride () 10 - 40 ml IV UD PRN PRN Reason: SALINE FLUSH Last Admin: 02/04/20 15:20 Dose: 10 ml Documented by: Sodium Chloride (Damar Nasal [place]) 2 spray NASAL Q4H PRN PRN PRN Reason: NASAL DRYNESS Last Admin: 02/04/20 07:00 Dose: 2 sprays Documented by: Timolol Maleate (Timoptic) 1 drop EACH EYE BID [facility] Last Admin: 02/05/20 10:01 Dose: 1 drop Documented by: Zolpidem Tartrate (Ambien (Generic)) 5 mg PO QHS PRN PRN PRN Reason: INSOMNIA Last Admin: 02/04/20 22:40 Dose: 5 mg Documented by: Assessment/Plan All Active Problems (Last Reviewed 12/30/19 @ 07:[address] Yuan Heredia MD) Acute respiratory failure (Acute) Anemia (Acute) Elevated troponin (Acute) Mitral regurgitation (Acute) Aortic stenosis (Acute) Acute blood loss anemia (Acute) History of coronary artery stent placement (Resolved 06/29/19) History of non-ST elevation myocardial infarction (NSTEMI) (Resolved 06/25/19) Acute kidney injury superimposed on chronic kidney disease (Resolved) Shortness of breath (Resolved) RECOMMENDATIONS: 1. Agree with continuing scheduled bronchodilators and IV steroids. The patient can likely be transitioned to prednisone 40 mg daily beginning tomorrow. 2. Agree the patient will likely require dialysis to achieve volume optimization. 3. Wean supplemental oxygen to maintain saturations at or above 90%. 4. Encourage incentive spirometer use and mobilize patient as tolerated. 5. Perform walking oximetry study prior to consideration for discharge home. 6. Resume triple therapy inhaler regimen at discharge. IMPRESSIONS: 1. Acute on chronic hypoxemic respiratory failure Suspect this is primarily related to decompensated heart failure. Agree with attempts at volume optimization with IV diuretic therapy. However, the patient will likely require dialysis to achieve a state of volume optimization. Continue scheduled bronchodilators for now. The patient's IV steroids can likely be transitioned to prednisone beginning tomorrow. The patient should resume his triple therapy inhaler regimen at discharge. 2. Anemia The patient does have evidence of normocytic anemia with a hemoglobin seth of 6.9 on February 03. The patient did receive 2 units of packed red blood cells with subsequent worsening in his respiratory status. Again, this is likely secondary to his inability to tolerate volume associated with transfusion of blood products. Continue to monitor H&H daily. 3. Ischemic cardiomyopathy status post recent PCI/non-ST segment elevation VT Continue current medical management per cardiology recommendations. 4. Chronic kidney disease Nephrology following, as the patient likely will require dialysis for volume optimization purposes. 5. Diabetes mellitus/hypertension/hyperlipidemia Complicates care, management, recovery and prognosis. Continue home medications as indicated. This note was generated with Getyoo dictation software. It may contain incorrect words, spelling, and punctuation that were not noted in checking the note before signing. Inpatient E&M: 17812 Init Hosp L3
--- NOTE | 2020-02-05 11:15 | PCM.CONS.GEN ---
Problem List (1) Acute respiratory failure Status: Acute Qualifiers: Respiratory failure complication: hypoxia Qualified Code(s): J96.01 - Acute respiratory failure with hypoxia (2) CHF exacerbation Status: Chronic Qualifiers: Heart failure type: unspecified Qualified Code(s): I50.9 - Heart failure, unspecified (3) CKD (chronic kidney disease) Status: Chronic Qualifiers: Chronic kidney disease stage: stage 5, not on chronic dialysis Qualified Code(s): N18.5 - Chronic kidney disease, stage 5 Reason for Consult Date of Consultation: 02/05/20 History of Present Illness: The patient is a 75 year old M who I have been asked to see. He has multiple significant medical comorbidities placing him at marked increased risk of . He currently is in both pulmonary and congestive heart failure. Complicating this is chronic renal insufficiency. He did previously have tunneled dialysis catheters but these had been requested to be removed. They were previously right IJ tunneled dialysis catheters placed in [place]. The patient currently is significantly dyspneic. He feels that it is difficult to speak more than a couple words in a sentence. He is markedly uncomfortable and short of breath. Complicate features he has significant coronary vascular disease and additional treatment is being contemplated. This would include cardiac catheterization Past Medical History Past Medical History (Chronic Problems): Chronic Problems (Last Reviewed 12/30/19 @ 07:[address] 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 RPDA 06/29/19 (HFpEF) heart failure with preserved ejection fraction (Chronic) I50.30 Hyperlipidemia (Chronic) E78.5 Essential (primary) hypertension (Chronic) I10 Mobitz type I Wenckebach atrioventricular block (Chronic) I44.1 History of non-ST elevation myocardial infarction (NSTEMI) (Resolved) Onset Date: 06/25/19 I25.2 Incomplete right bundle branch block (Chronic) I45.10 Pulmonary nodule (Chronic) R91.1 Chronic hypoxemic respiratory failure (Chronic) J96.11 COPD (chronic obstructive pulmonary disease) (Chronic) J44.9 Chronic steroid use Dialysis patient Z99.2 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 E10.649 Hyponatremia E87.1 Overweight E66.3 Pedal edema R60.0 Allergic rhinitis J30.9 Anemia D64.9 Anemia D64.9 Benign localized hyperplasia of prostate N40.0 CKD (chronic kidney disease) stage 4, GFR 15-29 ml/min N18.4 On dialysis COPD (chronic obstructive pulmonary disease) J44.9 Carpal tunnel syndrome G56.00 Chronic allergic rhinitis J30.9 Chronic otitis media H66.90 Epistaxis R04.0 Former smoker Z87.891 GERD (gastroesophageal reflux disease) K21.9 GI bleed Onset Date: 06/28/19 K92.2 History of prostate cancer Z85.46 custodial (current) use of insulin Z79.4 Low back pain M54.5 Neuralgia M79.2 Nonallopathic lesion of lumbar region M99.9 Nonallopathic lesion of rib cage M99.9 Nonallopathic lesion of sacral region M99.9 Nonallopathic lesion of thoracic region, not elsewhere classified M99.9 Otalgia H92.09 Otitis externa H60.90 PVD (peripheral vascular disease) I73.9 Pain in lower limb M79.606 Peripheral vascular insufficiency I73.9 Thoracic back pain M54.6 Thoracic outlet syndrome G54.0 Type I diabetes mellitus E10.9 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 Constipation K59.00 Serous otitis media H65.90 Wax in ear H61.20 Reactive airway disease J45.909 Allergies budesonide Allergy (Severe, Verified 12/29/19 13:20) Other - can't breathe amoxicillin [From Augmentin] Allergy (Unknown, Verified 12/29/19 13:20) Unknown clavulanic acid [From Augmentin] Allergy (Unknown, Verified 12/29/19 13:20) Unknown Sulfa (Sulfonamide Antibiotics) Allergy (Unknown, Verified 12/29/19 13:20) Unknown Home Medications: Ambulatory Orders Medication Instructions Recorded latanoprost 0.005 % eye drops 1 drp EACH EYE DAILY ml 11/15/17 albuterol sulfate 90 mcg/actuation 2 puff INHALATION Q6H PRN PRN #18 g 08/05/19 aerosol inhaler aspirin 81 mg tablet,delayed 81 mg PO DAILY #90 tab 08/06/19 release atorvastatin 80 mg tablet 80 mg PO QHS #90 tab 08/06/19 clopidogrel 75 mg tablet 75 mg PO DAILY #90 tab 08/06/19 hydralazine 25 mg tablet 25 mg PO TID #270 tab 08/06/19 isosorbide mononitrate 30 mg 30 mg PO DAILY #90 tab 08/06/19 tablet,extended release 24 hr metoprolol succinate 25 mg 12.5 mg PO DAILY #60 tab 08/06/19 tablet,extended release 24 hr insulin lispro 100 unit/mL See Rx Instructions SC DAILY ml 09/12/19 subcutaneous solution brimonidine 0.2 % eye drops 1 drp LEFT EYE BID ml 10/01/19 timolol 0.5 % eye drops 1 drp EACH EYE DAILY ml 10/01/19 blood sugar diagnostic See Rx Instructions .ROUTE 11/24/19 .MEDSUPPLY #150 ea fluticasone furoate 200 1 inh INHALATION DAILY #3 device 01/26/20 mcg-vilanterol 25 mcg/dose inhalation powder umeclidinium 62.5 mcg/actuation 1 inh INHALATION DAILY #3 ea 01/26/20 blister powder for inhalation Bumetanide [Bumex] 2 mg PO BID 02/03/20 Ergocalciferol (Vitamin D2) 50,000 unit PO CUNHA 02/03/20 [Vitamin D2] Insulin Lispro [Humalog] See Protocol SQ DAILY 02/03/20 Surgical History: Surgical History (Last Reviewed 12/30/19 @ 07:[address] 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 Osuna H/O prostate biopsy Z98.890 Dr. Hernandez History of appendectomy Z98.890, Z90.49 History of carpal tunnel surgery of left wrist Z98.890 S/P bilateral foot surgery Z98.890 S/P rotator cuff repair Z98.890 right Surgical History: no surgical history Psychiatric History: No pertinent psych hx Smoking Status: Former smoker Tobacco Use: Cigarettes - *Family History Maternal Family History: Family History (Last Reviewed 12/30/19 @ 07:[address] Yuan Heredia MD) Sister Diabetes Father Heart disease History Items: No pertinent history Paternal Family History: Family History (Last Reviewed 12/30/19 @ 07:[address] Yuan Heredia MD) Sister Diabetes Father Heart disease History Items: Heart Disease Review of Systems Constitutional: Reports: Malaise, Fatigue Cardiovascular: Reports: Chest Tightness Respiratory: Reports: Shortness of Breath, Shortness of breath at rest, Shortness of breath upon exertion, Wheezing Patient Problems: Active and Suspected Problems (Last Reviewed 12/30/19 @ 07:[address] Yuan Heredia MD) Acute respiratory failure (Acute) Anemia (Acute) Elevated troponin (Acute) - Physical Exam Vitals/I&O's: Vital Signs Temp Pulse Resp BP Pulse Ox 98.0 F 82 18 178/79 H 99 03/26/20 09:56 02/05/20 10:17 02/05/20 09:56 02/05/20 09:56 02/05/20 09:56 Oxygen Flow Rate (L/min) 4 Oxygen Delivery Method Nasal Cannula Weight: 169 lb 8.568 oz Body Mass Index (BMI) 25.8 Finger Stick Blood Glucose 141 Intake and Output for Last 24 Hours 02/03/20 02/04/20 02/05/20 23:59 23:59 23:59 Intake Total 360 / 360 1560 / 1680 220 / 220 Output Total 525 / 525 1025 / 1340 640 / 640 Balance -165 / -165 535 / 340 -420 / -420 General: - - Patient noted to be significantly direct distressed with shortness of breath retractions with breathing Lungs: - - Tight airways with wheeze bilateral Cardiovascular: - - Not able to hear heart sounds because of respiratory distress Abdomen: Soft Extremities: - - Atrophied lower extremities Neurological: - - Normal cognition. Patient states that when he was previously on dialysis he felt much better. He desires to resume dialysis. Psych/Mental Status: Appropriate Microbiology Past 72 Hours 02/03/20 11:41 Blood Culture (Wb) - No Site/Description Given Blood Culture - Preliminary No growth in 48 hours. 02/03/20 11:35 Blood Culture (Wb) - Anticubital Right Blood Culture - Preliminary No growth in 48 hours. 02/03/20 12:00 Mucosa - Nose Rapid RSV (DFA) - Final 02/03/20 12:00 Mucosa - Nose Influenza Types A,B Direct FA (LEVI) - Final Laboratory Results 02/04/20 05:04: Iron 43 L, TIBC 202 L, Iron Saturation 21.3, Ferritin 804 H 02/04/20 07:20: Blood Type O POSITIVE, Antibody Screen NEGATIVE, Crossmatch See Detail 02/04/20 11:24: POC Glucose 266 H 02/04/20 16:58: POC Glucose 152 H 02/04/20 22:30: POC Glucose 418 H 02/05/20 05:40: WBC 10.4, RBC 3.29 L, Hgb 9.2 L, Hct 28.7 L, MCV 87.2, MCH 28.0, MCHC 32.1, RDW Std Deviation 44.0 H, RDW Coeff of Janel 14.0, Plt Count 215, MPV 11.1, Immature Gran % (Auto) 0.300, Neut % (Auto) 93.9 H, Lymph % (Auto) 2.4 L, Josephine % (Auto) 3.3, Eos % (Auto) 0.0, Baso % (Auto) 0.1, Absolute Neuts (auto) 9.7 H, Absolute Lymphs (auto) 0.25 L, Nucleated RBC % 0, Differential Comment SCANNED 02/05/20 05:40: Sodium 132 L, Potassium 4.2, Chloride 93 L, Carbon Dioxide 25.0, Anion Gap 14, BUN 96 H, Creatinine 3.46 H, Estim Creat Clear Calc 17.30, Est GFR (MDRD) Af Amer 22 L, Est GFR (MDRD) Non-Af 18 L, BUN/Creatinine Ratio 27.7 H, Glucose 488 H*, Calcium 8.5 02/05/20 06:01: POC Glucose 459 H* 02/05/20 07:15: Specimen Type ART, Sample Site L RADIAL, pH 7.41, Bicarbonate Actual 26.1 H, POC Total CO2 27, Base Excess 1, O2 Saturation 97, O2 % 25, ABG pCO2 40.9, ABG pO2 86, Price Test YES, Respiration Rate 12, O2 Delivery Device BIPAP, EPAP 8, IPAP 16, Blood Gas Notified Whom HOSP , Blood Gas Notified Time 715 Current Medications Albuterol Sulfate (Ventolin Aerosols) 2.5 mg INHALATION Q2H PRN PRN PRN Reason: SOB/Wheezing Last Admin: 02/05/20 00:26 Dose: 2.5 mg Documented by: Albuterol/Ipratropium (Duoneb) 3 ml INHALATION Q4H.RT [facility] Last Admin: 02/05/20 10:58 Dose: 3 ml Documented by: Atorvastatin Calcium (Lipitor) 80 mg PO QHS [facility] Last Admin: 02/04/20 22:38 Dose: 80 mg Documented by: Brimonidine Tartrate (Brimonidine 0.2% 5ml Bottle) 1 drop LEFT EYE BID [facility] Last Admin: 02/05/20 10:00 Dose: 1 drop Documented by: Buspirone HCl (Buspar) 5 mg PO TID PRN PRN PRN Reason: ANXIETY Dextrose (D50w Syringe) 0 gm IV X1 PRN; Protocol PRN Reason: Hypoglycemia Ergocalciferol (Vitamin D) 50,000 unit PO [place]@1000 KELIN Furosemide (Lasix) 80 mg IV Q8 [facility] Glucagon () 1 mg IM .X1 PRN PRN Reason: Hypoglycemia Guaifenesin (Mucinex) 1,200 mg PO BID [facility] Last Admin: 02/04/20 22:38 Dose: 1,200 mg Documented by: Hydralazine HCl (Apresoline) 25 mg PO TID [facility] Last Admin: 02/05/20 06:14 Dose: 25 mg Documented by: Insulin Glargine (Lantus ([facility])) 15 units SC BID [facility] Insulin Human Lispro (Humalog Kwikpen ([facility])) 0 unit SC ACHS [facility]; Protocol Last Admin: 02/05/20 06:05 Dose: 15 units Documented by: Isosorbide Mononitrate (Imdur) 60 mg PO DAILY [facility] Last Admin: 02/05/20 10:19 Dose: 60 mg Documented by: Latanoprost (Xalatan Opthalmic) 1 drop EACH EYE QHS [facility] Last Admin: 02/04/20 22:38 Dose: 1 drop Documented by: Methylprednisolone (Solu-Medrol) 40 mg IV Q8 [facility] Last Admin: 02/05/20 06:05 Dose: 40 mg Documented by: Metoprolol Succinate (Toprol Xl (Beta Antonette)) 12.5 mg PO DAILY [facility] Last Admin: 02/05/20 10:17 Dose: 12.5 mg Documented by: Nitroglycerin (Nitrostat) 0.4 mg SUBLINGUAL Q5M PRN PRN Reason: CARDIAC/CHEST PAIN Ondansetron HCl (Zofran) 4 mg IV Q8H PRN PRN PRN Reason: NAUSEA/VOMITING Sodium Chloride () 10 - 40 ml IV UD PRN PRN Reason: SALINE FLUSH Last Admin: 02/04/20 15:20 Dose: 10 ml Documented by: Sodium Chloride ([place]inson Nasal [place]) 2 spray NASAL Q4H PRN PRN PRN Reason: NASAL DRYNESS Last Admin: 02/04/20 07:00 Dose: 2 sprays Documented by: Timolol Maleate (Timoptic) 1 drop EACH EYE BID [facility] Last Admin: 02/05/20 10:01 Dose: 1 drop Documented by: Zolpidem Tartrate (Ambien (Generic)) 5 mg PO QHS PRN PRN PRN Reason: INSOMNIA Last Admin: 02/04/20 22:40 Dose: 5 mg Documented by: Assessment/Plan All Active Problems (Last Reviewed 12/30/19 @ 07:[address] Yuan Heredia MD) Acute respiratory failure (Acute) Anemia (Acute) Elevated troponin (Acute) Mitral regurgitation (Acute) Aortic stenosis (Acute) Acute blood loss anemia (Acute) History of coronary artery stent placement (Resolved 06/29/19) History of non-ST elevation myocardial infarction (NSTEMI) (Resolved 06/25/19) Acute kidney injury superimposed on chronic kidney disease (Resolved) Shortness of breath (Resolved) 75-year-old gentleman high risk candidate with multiple organ system dysfunction. Request has been made for placement of dialysis catheters. The patient is desiring to proceed. He is aware of the technique, benefit, risks, alternatives. He is aware of the notably increased risk of bleeding as he is anticoagulated with recommendations to continue because of his cardiac disease. He is aware of increased risk related to cardiac and pulmonary disease. We will proceed as timing permits. I am being instructed that that will not be till later this afternoon as the operating room is running only 1 room and I have been denied access to a second. Jose Elias Bazzi M.D., F.A.C.S.
[2020-02-05 11:56] LABS: Bedside Glucose 412 mg/dL (70-110)
--- NOTE | 2020-02-05 12:18 | CASEMGMT ---
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 Documents are not in pt EMR and pt unable to bring in at this time. AYALA Dia
--- NOTE | 2020-02-05 13:13 | PN_ITS ---
Patient Problems: Active and Suspected Problems (Last Reviewed 12/30/19 @ 07:[address] Yuan Heredia MD) Acute respiratory failure (Acute) Anemia (Acute) Elevated troponin (Acute) Subjective: Patient seen and examined. Patient became more short of breath overnight requiring BiPAP. It appears there was a component of anxiety to this office patient became, when given Ativan. This morning he is more confused. He is visibly short of breath but he saturating at 90% on room air. He is not able to answer questions coherently. Stat ABG done showed pH of 7.4 with PO2 of 86 and PCO2 of 40.9. He has remained hemodynamically stable. Creatinine has gone up to 3.46 today. Globin is 9.2. Vitals/I&O's: Vital Signs Temp Pulse Resp BP Pulse Ox 98.4 F 80 18 148/71 H 99 02/05/20 12:57 02/05/20 12:57 02/05/20 12:57 02/05/20 12:57 02/05/20 12:57 Oxygen Flow Rate (L/min) 4 Oxygen Delivery Method Nasal Cannula Weight: 169 lb 8.568 oz Body Mass Index (BMI) 25.7 Finger Stick Blood Glucose 141 Intake and Output for Last 24 Hours 02/03/20 02/04/20 02/05/20 23:59 23:59 23:59 Intake Total 360 / 360 1560 / 1680 220 / 220 Output Total 525 / 525 1025 / 1340 840 / 840 Balance -165 / -165 535 / 340 -620 / -620 General: Alert, confused, HEENT: Atraumatic, PERRLA, EOMI, Normocephalic Oral: Moist Mucosa Neck: Supple, No JVD, Negative Carotid Bruits Lungs: - - diminished breath sounds bibasally, bilateral coarse crackles. On 4L of oxygen by nasal canula Cardiovascular: Regular rate, Regular Rhythm, Normal S1, Normal S2, No murmurs Abdomen: Bowel Sounds Present, Soft, Non Tender, Non-Distended, No Hepato- splenomegaly Extremities: No clubbing, No cyanosis, No edema, Capillary Refill Less than 3 Seconds Skin: No rashes, No breakdown Musculoskeletal: No Tenderness to Palpation of Joints or Extremities Lymphatic: No Cervical, Supraclavicular, or Inguinal Adenopathy Neurological: Cranial nerves II-XII grossly intact, Neuro grossly intact, Motor Exam 5/5 strength throughout Psych/Mental Status: Normal Affect, Appropriate, Alert and oriented to time, place, person, mood and affect Microbiology Past 72 Hours 02/05/20 11:55 Stool Stool Occult Blood (LEVI) - Final 02/03/20 11:41 Blood Culture (Wb) - No Site/Description Given Blood Culture - Preliminary No growth in 48 hours. 02/03/20 11:35 Blood Culture (Wb) - Anticubital Right Blood Culture - Preliminary No growth in 48 hours. 02/03/20 12:00 Mucosa - Nose Rapid RSV (DFA) - Final 02/03/20 12:00 Mucosa - Nose Influenza Types A,B Direct FA (LEVI) - Final Laboratory Results 02/04/20 07:20: Blood Type O POSITIVE, Antibody Screen NEGATIVE, Crossmatch See Detail 02/04/20 16:58: POC Glucose 152 H 02/04/20 22:30: POC Glucose 418 H 02/05/20 05:40: WBC 10.4, RBC 3.29 L, Hgb 9.2 L, Hct 28.7 L, MCV 87.2, MCH 28.0, MCHC 32.1, RDW Std Deviation 44.0 H, RDW Coeff of Janel 14.0, Plt Count 215, MPV 11.1, Immature Gran % (Auto) 0.300, Neut % (Auto) 93.9 H, Lymph % (Auto) 2.4 L, [place] % (Auto) 3.3, Eos % (Auto) 0.0, Baso % (Auto) 0.1, Absolute Neuts (auto) 9.7 H, Absolute Lymphs (auto) 0.25 L, Nucleated RBC % 0, Differential Comment SCANNED 02/05/20 05:40: Sodium 132 L, Potassium 4.2, Chloride 93 L, Carbon Dioxide 25.0, Anion Gap 14, BUN 96 H, Creatinine 3.46 H, Estim Creat Clear Calc 17.30, Est GFR (MDRD) Af Amer 22 L, Est GFR (MDRD) Non-Af 18 L, BUN/Creatinine Ratio 27.7 H, Glucose 488 H*, Calcium 8.5 02/05/20 06:01: POC Glucose 459 H* 02/05/20 07:15: Specimen Type ART, Sample Site L RADIAL, pH 7.41, Bicarbonate Actual 26.1 H, POC Total CO2 27, Base Excess 1, O2 Saturation 97, O2 % 25, ABG pCO2 40.9, ABG pO2 86, Price Test YES, Respiration Rate 12, O2 Delivery Device BIPAP, EPAP 8, IPAP 16, Blood Gas Notified Whom KEVIN SPAULDING, Blood Gas Notified Time 715 02/05/20 11:34: POC Glucose 412 H Current Medications Albuterol Sulfate (Ventolin Aerosols) 2.5 mg INHALATION Q2H PRN PRN PRN Reason: SOB/Wheezing Last Admin: 02/05/20 00:26 Dose: 2.5 mg Documented by: Albuterol/Ipratropium (Duoneb) 3 ml INHALATION Q4H.RT [facility] Last Admin: 02/05/20 10:58 Dose: 3 ml Documented by: Atorvastatin Calcium (Lipitor) 80 mg PO QHS [facility] Last Admin: 02/04/20 22:38 Dose: 80 mg Documented by: Brimonidine Tartrate (Brimonidine 0.2% 5ml Bottle) 1 drop LEFT EYE BID [facility] Last Admin: 02/05/20 10:00 Dose: 1 drop Documented by: Buspirone HCl (Buspar) 5 mg PO TID PRN PRN PRN Reason: ANXIETY Dextrose (D50w Syringe) 0 gm IV X1 PRN; Protocol PRN Reason: Hypoglycemia Ergocalciferol (Vitamin D) 50,000 unit PO Luna@1000 [facility] Furosemide (Lasix) 80 mg IV Q8 [facility] Glucagon () 1 mg IM .X1 PRN PRN Reason: Hypoglycemia Guaifenesin (Mucinex) 1,200 mg PO BID [facility] Last Admin: 02/05/20 11:43 Dose: Not Given Documented by: Hydralazine HCl (Apresoline) 25 mg PO TID [facility] Last Admin: 02/05/20 06:14 Dose: 25 mg Documented by: Insulin Glargine (Lantus (Bkc)) 15 units SC BID [facility] Last Admin: 02/05/20 11:41 Dose: Not Given Documented by: Insulin Human Lispro (Humalog Kwikpen (Bk)) 0 unit SC ACHS [facility]; Protocol Last Admin: 02/05/20 13:10 Dose: 6 units Documented by: Isosorbide Mononitrate (Imdur) 60 mg PO DAILY [facility] Last Admin: 02/05/20 10:19 Dose: 60 mg Documented by: Latanoprost (Xalatan Opthalmic) 1 drop EACH EYE QHS [facility] Last Admin: 02/04/20 22:38 Dose: 1 drop Documented by: Methylprednisolone (Solu-Medrol) 40 mg IV DAILY [facility] Metoprolol Succinate (Toprol Xl (Beta Antonette)) 12.5 mg PO DAILY [facility] Last Admin: 02/05/20 10:17 Dose: 12.5 mg Documented by: Nitroglycerin (Nitrostat) 0.4 mg SUBLINGUAL Q5M PRN PRN Reason: CARDIAC/CHEST PAIN Ondansetron HCl (Zofran) 4 mg IV Q8H PRN PRN PRN Reason: NAUSEA/VOMITING Sodium Chloride () 10 - 40 ml IV UD PRN PRN Reason: SALINE FLUSH Last Admin: 02/04/20 15:20 Dose: 10 ml Documented by: Sodium Chloride ([place]) 2 spray NASAL Q4H PRN PRN PRN Reason: NASAL DRYNESS Last Admin: 02/04/20 07:00 Dose: 2 sprays Documented by: Timolol Maleate (Timoptic) 1 drop EACH EYE BID [facility] Last Admin: 02/05/20 10:01 Dose: 1 drop Documented by: Zolpidem Tartrate (Ambien (Generic)) 5 mg PO QHS PRN PRN PRN Reason: INSOMNIA Last Admin: 02/04/20 22:40 Dose: 5 mg Documented by: STROKE Vital Signs/Narrative: Vital Signs Temp Pulse Resp BP Pulse Ox 02/05/20 12:57 98.4 F 80 18 148/71 H 99 02/05/20 10:17 82 02/05/20 09:56 98.0 F 82 18 178/79 H 99 Medical Necessity - Tobacco Use Smoking Status: Former smoker Tobacco Use: Cigarettes Assessment/Plan All Active Problems (Last Reviewed 12/30/19 @ 07:[address] Yuan Heredia MD) Acute respiratory failure (Acute) Anemia (Acute) Elevated troponin (Acute) Mitral regurgitation (Acute) Aortic stenosis (Acute) Acute blood loss anemia (Acute) History of coronary artery stent placement (Resolved 06/29/19) History of non-ST elevation myocardial infarction (NSTEMI) (Resolved 06/25/19) Acute kidney injury superimposed on chronic kidney disease (Resolved) Shortness of breath (Resolved) 1. Acute on chronic HFrEF * became more short of breath overnight, requiring BIPAP; was also anxious * 2D echo(06/30): EF of 30% with stage I diastolic dysfunction and severe hypokinesis of the left ventricle with RVSP of 64 mmHg and severe diffuse aortic valve thickening and moderate aortic stenosis, and dilated atria vena cava. * Lasix increased to 80 mg every 8 IV. * monitor intake and output; fluid restriction to 1500cc daily * breathing treatments with bronchodilators * And minimal negative balance of 250 mils; he put out 2.39 L of urine over last 24 hours. * 2. Nonstemi * Initial troponin was 0.146 but this peaked at 1.5. * Cardiology on board. On aspirin and Plavix. * Discussed with cardiology today. Patient's creatinine is trended up to 3.46 and with his respiratory state, patient will be able to lie down for cardiac cath. We will therefore discuss with nephrology about possible dialysis to optimize patient from a respiratory standpoint before attempting cardiac cath. * 2D echo as under 1. * 3. Acute on chronic exacerbation of COPD * Influenza and RSV screen were negative. * will cut down solumedrol to IV prednisone 40mg daily due to hyperglycemia * shortness of breath not improving, and this is likely due to fluid overload. * now on 4L of oxygen which is his baseline * 4. Acute on chronic hypoxic respiratory failure * as under 1 and 2 5. Acute on chronic anemia * Status post 2 units of packed red blood cells. Hemoglobin today is 9.2. * Iron panel showed iron of 43 with low TIBC and elevated ferritin of 804 indicating anemia of chronic disease picture likely due to the CKD. * Hemoglobin today is 9.2. * 6. CAD s/p stents * had 2 stents placed in LAD and one in left circumflex at [facility] in June 2019; he had total occlusion of RCA, but was not thought to be a candidate for CABG * on aspirin and plavix. * 7. CKD 4: * Creatinine today is up to 3.46. * Nephrology on board. Patient will need dialysis as his respiratory status is very compromised due to acute on chronic heart failure. * For temporary dialysis catheter placement today and then for dialysis. * 8. Type 2 diabetes mellitus * on ISS. Accuchecks ACHS. * * DVT prophylaxis: SCDs; hold lovenox o/a of drop in hemoglobin Code status: full code. * Inpatient E&M: 67912 Subs Hosp L3
[2020-02-05 13:16] LABS: Bedside Glucose 405 mg/dL (70-110)
[2020-02-05] MEDS: 0.45% Normal Saline 1,000 ML 15 ML IV (14:45)
[2020-02-05 14:55] LABS: Bedside Glucose 334 mg/dL (70-110)
--- NOTE | 2020-02-05 15:12 | PCM.PN.BLA ---
Progress Note Tolerating diet, labs stable, pt doing very well at this point. Concur with discharge STROKE Vital Signs/Narrative: Vital Signs Temp Pulse Resp BP Pulse Ox 02/05/20 12:57 98.4 F 80 18 148/71 H 99
[2020-02-05] MEDS: Bupivacaine Mpf 0.5% 30 ML VIAL (16:08)
[2020-02-05] MEDS: Heparin 10,000 UNITS/10 ML Vial 10000 UNITS (16:28)
--- NOTE | 2020-02-05 16:42 | OP.PCM_ITS ---
Problem List (1) Acute respiratory failure Status: Acute Qualifiers: Respiratory failure complication: hypoxia Qualified Code(s): J96.01 - Acute respiratory failure with hypoxia (2) CHF exacerbation Status: Chronic Qualifiers: Heart failure type: unspecified Qualified Code(s): I50.9 - Heart failure, unspecified (3) CKD (chronic kidney disease) Status: Chronic Qualifiers: Chronic kidney disease stage: stage 5, not on chronic dialysis Qualified Code(s): N18.5 - Chronic kidney disease, stage 5 Report of Operation Date of Procedure: 02/05/20 Pre-Operative Diagnosis: Acute and chronic renal insufficiency with cardiac and pulmonary failure Post-Operative Diagnosis: Same Surgery/Procedure Performed:: Right internal jugular 19 cm pre-curved palindrome catheter placement reference #[id number]. Lot #[id number]. Expiry date 06/09/2024 Description of Surgical Findings:: Timeout and informed consent was obtained. 75-year-old gent was taken to the operating room placed on the table underwent monitored anesthesia care clindamycin 900 mg given intravenously. The right neck and chest were sterilely prepped draped. Under ultrasound guidance 1% lidocaine mixed 50-50 with 0.5% Marcaine was used as a local anesthetic. Throughout the procedure proximally 20 cc was used. Local was instilled. Micropuncture needle inserted. Micro puncture wire inserted. Fluoroscopy demonstrated good positioning. Local was instilled down upon the chest wall. An exit site was selected. The pre-curved 19 cm diameter tunneled double-lumen dialysis cath was tunneled from the chest to the neck. Then the micropuncture wire exchanged out over sheath for a J- wire. Serial dilatation was performed. Sheath dilator was inserted. The wire and dilator were removed. The catheter was advanced through the sheath. The sheath was split. The catheter was positioned to be in a nice curvilinear position. There was extra scar tissue from the previous catheter that I had to incise to get a nice smooth alive. Fluoroscopy confirmed. The neck site was closed with up to 5-0 Vicryl Steri-Strips Telfa OpSite. The cath was secured to the exit site with 3-0 nylon silver impregnated dressing and OpSite dressing applied. Sponge and instrument and needle counts reported to surgically correct. Blood loss minimal. Specimens none. Drains none. Blood loss minimal. Patient was taken to the recovery room in satisfactory addition without apparent complication stat portable chest x-ray is pending. Type of Anesthesia:: Local MAC Anesthesiologist: Ben Goyal
[2020-02-05 16:56] LABS: Bedside Glucose 302 mg/dL (70-110)
--- NOTE | 2020-02-05 17:17 | CASEMGMT ---
AILIN CM Note: Dialysis referral faxed to [facility]. Will need Hepatitis panel drawn and dialysis run sheets sent tomorrow. Yoni ELIZABETH RN ACM
--- NOTE | 2020-02-05 17:22 | RAD_ITS ---
STUDY: X-RAY CHEST REASON FOR EXAM: Male, 75 years old. Post dialysis catheter placement. TECHNIQUE: Single AP portable view of the chest. COMPARISON: February 03, 2020. FINDINGS: There is no right jugular hemodialysis catheter with its tip in the distal superior vena cava. There is no pneumothorax. The lungs are mildly hypoexpanded. Diffuse increased interstitial marking particularly at the lung bases when compared to prior study. Bilateral pleural effusions. Normal size heart. Normal mediastinum and jessica. Normal visualized pulmonary arteries. There is atherosclerotic calcification of the aortic arch with tortuosity. There are diffuse degenerative changes of the visualized thoracic spine. There is degenerative osteoarthritis of the bilateral shoulders. There is no demonstrated abnormality of the visualized soft tissue structures of the upper abdomen. RAD/Chest 1 View (Portable) IMPRESSION: 1. Right jugular hemodialysis catheter. No pneumothorax. 2. Worsening CHF. Electronically Signed: Dami Levy DO at 17:34 EDT Tel [phone], Service support ,
--- NOTE | 2020-02-05 19:50 | DIALYSIS ---
hemodialysis completed x 2 hrs. This is pts first TX. Access via right chest tunneled HD cath. net fluid removal 2000ml. hep labs drawn. See HD flowsheet on chart. pt stable post tx.
[2020-02-05 20:26] LABS: Bedside Glucose 150 mg/dL (70-110)
[2020-02-05] MEDS: Atorvastatin Calcium 80 MG Tablet PO (22:30)
[2020-02-05] MEDS: guaiFENesin 1,200 MG Tablet 1200 MG PO (22:30)
[2020-02-05] MEDS: Furosemide 100 MG/10 ML Vial 80 MG IV (22:30)
[2020-02-05] MEDS: Latanoprost 0.005% 1 Bottle 1 DRP EACH EYE (22:38)
[2020-02-05 23:05] LABS: Bedside Glucose 239 mg/dL (70-110)
--- NOTE | 2020-02-05 23:48 | CPS ---
PT STATED DID NOT WANT TO WEAR BIPAP TONIGHT-FEELS GOOD AFTER DIALYSIS -DOESNT HAVE BIPAP AT HOME USES 4 L/M NC
[2020-02-06] VITALS (21 sets, daily range): BP systolic 122–139; BP diastolic 63–78; PULSE 64–91; RESP 16–20; TEMP 36.6–37.1; O2SAT 95–99
[2020-02-06] MEDS: Ipratropium/Albuterol Sulfate 3 ML AMPUL.NEB INHALATION ×6 (03:17→23:09)
[2020-02-06 06:03] LABS: Absolute Lymphocyte Count 0.53 X10^3/uL (0.83-4.51); Absolute Neutrophil Count 8.2 X10^3/uL (2.0-7.7); Basophil# 0.01 X10^3/uL; Basophil% 0.1 % (0-1); Eosinophil# 0.01 X10^3/uL; Eosinophils% 0.1 % (0-5); Hematocrit 25.8 % (40-54); Hemoglobin 8.3 g/dL (13.0-16.5); Lymphocyte # 0.53 X10^3/ul (4.0); Lymphocyte % 5.3 % (19-41); Mean Corp Hgb Conc 32.2 g/dL (32-36); Mean Corpuscular Hgb 28.2 pg (27.0-32.0); Mean Corpuscular Volume 87.8 fL (80-94); Mean Platelet Vol. 11.2 fl (6.2-12.0); Monocyte# 1.23 X10^3/uL; Monocyte% 12.2 % (0-10); NRBC Flagged by Analyzer 0 % (0-5); Neutrophil # 8.24 X10^3/uL (2.7-7.7); POSITIVE DIFFERENTIAL YES; Platelet Count 171 K/mm3 (150-450); RBC Distribution Width CV 13.7 % (11.6-14.6); RBC Distribution Width SD 43.9 fl (35.1-43.9); Red Blood Count 2.94 M/mm3 (4.6-6.2); White Blood Count 10.1 K/mm3 (4.4-11.0)
[2020-02-06 06:05] LABS: Differential Indicated SCAN CRITERIA MET
[2020-02-06] MEDS: Furosemide 100 MG/10 ML Vial 80 MG IV ×3 (06:06→21:35)
[2020-02-06] MEDS: hydrALAZINE 25 MG Tablet PO ×3 (06:08→21:35)
[2020-02-06] MEDS: Insulin Lispro 100 UNIT/ML INSULN.PEN SC ×3 (06:22→21:36)
[2020-02-06 06:26] LABS: Differential Comment SCANNED; Reactive Lymphocyte RARE
[2020-02-06 06:32] LABS: Anion Gap 9 (5-15); BUN 76 mg/dL (7-18); BUN/Creat Ratio 26.4 RATIO (10-20); Chloride 98 mmol/L (98-107); Creatinine, Serum 2.88 mg/dL (0.70-1.30); EST Glomerular Filtration Rate 23 mL/min (>60); Est Glom Filt Rate - Afr Amer 28 mL/min (>60); Estimated Creatinine Clearance 20.78 ml/min; Glucose 320 mg/dL (74-106); Sodium Level 135 mmol/L (136-145)
--- NOTE | 2020-02-06 06:55 | PCM.PN.SRG ---
Patient Problems: Active and Suspected Problems (Last Reviewed 12/30/19 @ 07:[address] Yuan Heredia MD) Acute respiratory failure (Acute) Anemia (Acute) Elevated troponin (Acute) Subjective: Pt feels improved with dialysis last night - Physical Exam Vitals/I&O's: Vital Signs Temp Pulse Resp BP Pulse Ox 97.8 F 91 18 139/63 H 99 02/06/20 02:00 02/06/20 06:08 02/06/20 03:20 02/06/20 06:08 02/06/20 02:00 Oxygen Flow Rate (L/min) 4 Oxygen Delivery Method Nasal Cannula Weight: 166 lb 7.184 oz Body Mass Index (BMI) 25.7 Finger Stick Blood Glucose 302 Intake and Output for Last 24 Hours 02/04/20 02/05/20 02/06/20 23:59 23:59 23:59 Intake Total 1560 / 1680 326 / 426 268.75 / 268.75 Output Total 1025 / 1340 3040 / 3240 200 / 200 Balance 535 / 340 -2714 / -2814 68.75 / 68.75 Lungs: - - Right chest catheter site clean and dry Microbiology Past 72 Hours 02/05/20 11:55 Stool Stool Occult Blood (LEVI) - Final 02/03/20 11:41 Blood Culture (Wb) - No Site/Description Given Blood Culture - Preliminary No growth in 48 hours. 02/03/20 11:35 Blood Culture (Wb) - Anticubital Right Blood Culture - Preliminary No growth in 48 hours. 02/03/20 12:00 Mucosa - Nose Rapid RSV (DFA) - Final 02/03/20 12:00 Mucosa - Nose Influenza Types A,B Direct FA (LEVI) - Final Laboratory Results 02/05/20 06:01: POC Glucose 459 H* 02/05/20 07:15: Specimen Type ART, Sample Site L RADIAL, pH 7.41, Bicarbonate Actual 26.1 H, POC Total CO2 27, Base Excess 1, O2 Saturation 97, O2 % 25, ABG pCO2 40.9, ABG pO2 86, Price Test YES, Respiration Rate 12, O2 Delivery Device BIPAP, EPAP 8, IPAP 16, Blood Gas Notified Whom HOSP , Blood Gas Notified Time 715 02/05/20 11:34: POC Glucose 412 H 02/05/20 12:56: POC Glucose 405 H 02/05/20 14:51: POC Glucose 334 H 02/05/20 16:52: POC Glucose 302 H 02/05/20 18:20: Hep B Core Total Ab Pending 02/05/20 18:20: Hep Bs Antigen Pending 02/05/20 18:20: Hep Bs Antibody Pending 02/05/20 20:19: POC Glucose 150 H 02/05/20 22:23: POC Glucose 239 H 02/06/20 05:35: WBC 10.1, RBC 2.94 L, Hgb 8.3 L, Hct 25.8 L, MCV 87.8, MCH 28.2, MCHC 32.2, RDW Std Deviation 43.9, RDW Coeff of Janel 13.7, Plt Count 171, MPV 11.2, Immature Gran % (Auto) 0.300, Neut % (Auto) 82.0 H, Lymph % (Auto) 5.3 L, [place] % (Auto) 12.2 H, Eos % (Auto) 0.1, Baso % (Auto) 0.1, Absolute Neuts (auto) 8.2 H, Absolute Lymphs (auto) 0.53 L, Nucleated RBC % 0, Differential Comment SCANNED, Reactive Lymphocytes RARE 02/06/20 05:35: Sodium 135 L, Potassium 4.0, Chloride 98, Carbon Dioxide 28.0, Anion Gap 9, BUN 76 H, Creatinine 2.88 H, Estim Creat Clear Calc 20.78, Est GFR (MDRD) Af Amer 28 L, Est GFR (MDRD) Non-Af 23 L, BUN/Creatinine Ratio 26.4 H, Glucose 320 H, Calcium 8.0 L Current Medications Acetaminophen (Tylenol) 650 mg PO Q6H PRN PRN PRN Reason: Pain Score 1-10/10 Albuterol Sulfate (Ventolin Aerosols) 2.5 mg INHALATION Q2H PRN PRN PRN Reason: SOB/Wheezing Last Admin: 02/05/20 00:26 Dose: 2.5 mg Documented by: Albuterol/Ipratropium (Duoneb) 3 ml INHALATION Q4H.RT [facility] Last Admin: 02/06/20 06:37 Dose: 3 ml Documented by: Atorvastatin Calcium (Lipitor) 80 mg PO QHS [facility] Last Admin: 02/05/20 22:30 Dose: 80 mg Documented by: Brimonidine Tartrate (Brimonidine 0.2% 5ml Bottle) 1 drop LEFT EYE BID [facility] Last Admin: 02/05/20 22:37 Dose: 1 drop Documented by: Buspirone HCl (Buspar) 5 mg PO TID PRN PRN PRN Reason: ANXIETY Dextrose (D50w Syringe) 0 gm IV X1 PRN; Protocol PRN Reason: Hypoglycemia Ergocalciferol (Vitamin D) 50,000 unit PO Luna@1000 [facility] Furosemide (Lasix) 80 mg IV Q8 [facility] Last Admin: 02/06/20 06:06 Dose: 80 mg Documented by: Glucagon () 1 mg IM .X1 PRN PRN Reason: Hypoglycemia Guaifenesin (Mucinex) 1,200 mg PO BID [facility] Last Admin: 02/05/20 22:30 Dose: 1,200 mg Documented by: Hydralazine HCl (Apresoline) 25 mg PO TID [facility] Last Admin: 02/06/20 06:08 Dose: 25 mg Documented by: Sodium Chloride () 1,000 mls @ 15 mls/hr IV .Q48H [facility] Last Infusion: 02/06/20 02:00 Dose: 0 mls/hr Documented by: Insulin Glargine (Lantus (Bkc)) 15 units SC BID [facility] Last Admin: 02/05/20 22:39 Dose: 15 u Documented by: Insulin Human Lispro (Humalog Kwikpen (Bkc)) 0 unit SC ACHS [facility]; Protocol Last Admin: 02/06/20 06:22 Dose: 9 units Documented by: Isosorbide Mononitrate (Imdur) 60 mg PO DAILY [facility] Last Admin: 02/05/20 10:19 Dose: 60 mg Documented by: Latanoprost (Xalatan Opthalmic) 1 drop EACH EYE QHS [facility] Last Admin: 02/05/20 22:38 Dose: 1 drop Documented by: Methylprednisolone (Solu-Medrol) 40 mg IV DAILY [facility] Metoprolol Succinate (Toprol Xl (Beta Antonette)) 12.5 mg PO DAILY [facility] Last Admin: 02/05/20 10:17 Dose: 12.5 mg Documented by: Nitroglycerin (Nitrostat) 0.4 mg SUBLINGUAL Q5M PRN PRN Reason: CARDIAC/CHEST PAIN Ondansetron HCl (Zofran) 4 mg IV Q8H PRN PRN PRN Reason: NAUSEA/VOMITING Sodium Chloride () 10 - 40 ml IV UD PRN PRN Reason: SALINE FLUSH Last Admin: 02/04/20 15:20 Dose: 10 ml Documented by: Sodium Chloride ([place] Nasal [place]) 2 spray NASAL Q4H PRN PRN PRN Reason: NASAL DRYNESS Last Admin: 02/04/20 07:00 Dose: 2 sprays Documented by: Timolol Maleate (Timoptic) 1 drop EACH EYE BID [facility] Last Admin: 02/05/20 22:29 Dose: 1 drop Documented by: Zolpidem Tartrate (Ambien (Generic)) 5 mg PO QHS PRN PRN PRN Reason: INSOMNIA Last Admin: 02/04/20 22:40 Dose: 5 mg Documented by: Medical Necessity - Tobacco Use Smoking Status: Former smoker Tobacco Use: Cigarettes Assessment/Plan All Active Problems (Last Reviewed 12/30/19 @ 07:[address] Yuan Heredia MD) Acute respiratory failure (Acute) Anemia (Acute) Elevated troponin (Acute) Mitral regurgitation (Acute) Aortic stenosis (Acute) Acute blood loss anemia (Acute) History of coronary artery stent placement (Resolved 06/29/19) History of non-ST elevation myocardial infarction (NSTEMI) (Resolved 06/25/19) Acute kidney injury superimposed on chronic kidney disease (Resolved) Shortness of breath (Resolved) Pt doing well s/p catheters Pt will need surgical outpt contact if fistula is desired and then I will need to see if that meets operative criteria at that time Recontact as needed
[2020-02-06 06:56] LABS: Bedside Glucose 299 mg/dL (70-110)
--- NOTE | 2020-02-06 08:36 | PCM.PN.CARD ---
Subjectve: Patient had subclavian tunneled catheter placed yesterday by Dr. Bailon, and underwent hemodialysis yesterday removing about 2-1/2 L of fluid. Patient is breathing is much improved but still has bilateral crackles, conversational dyspnea, orthopnea, and requiring oxygen therapy. Telemetry shows normal sinus rhythm. I laid the patient down flat for about 10 minutes, and he developed fairly significant orthopnea making catheterization today somewhat problematic. Objective: Vital Signs Temp Pulse Resp BP Pulse Ox 97.9 F 70 18 135/78 H 96 02/06/20 08:00 02/06/20 08:00 02/06/20 08:00 02/06/20 08:00 02/06/20 08:00 Oxygen Flow Rate (L/min) 4 Oxygen Delivery Method Nasal Cannula Weight: 166 lb 7.184 oz Body Mass Index (BMI) 25.7 Finger Stick Blood Glucose 302 Intake and Output for Last 24 Hours 02/04/20 02/05/20 02/06/20 23:59 23:59 23:59 Intake Total 1560 / 1680 326 / 426 368.75 / 368.75 Output Total 1025 / 1340 3040 / 3240 325 / 325 Balance 535 / 340 -2714 / -2814 43.75 / 43.75 General: Awake, Alert, Oriented x 3 HEENT: PERRL, EOMI, Sclera Non Icteric Neck: Supple, Good ROM, No Lymph Node Enlargement Lungs: Diminished Bob Bases, Rales - Bob Bases Cardiovascular: Regular Rhythm, Normal S2, No Rubs, No Gallops Murmur Murmur: Grade 2/6, Crescendo-Decrescendo Vascular: No Carotid Bruits, Normal Femoral Pulses, Normal Radial Pulses, Normal Dorsalis Pedal Pulse, Normal Posterior Tibial Pulses Abdomen: Bowel Sounds Present, Soft, Non Tender, No HSM, No Organomegaly Extremities: No Cyanosis, No Clubbing, No edema Neurological: No Focal Motor or Sensory Deficit 02/05/20 07:15: pH 7.41, Bicarbonate Actual 26.1 H, POC Total CO2 27, Base Excess 1, O2 Saturation 97, ABG pCO2 40.9, ABG pO2 86, Price Test YES 02/06/20 05:35: WBC 10.1, RBC 2.94 L, Hgb 8.3 L, Hct 25.8 L, MCV 87.8, MCH 28.2, MCHC 32.2, Plt Count 171, MPV 11.2, Immature Gran % (Auto) 0.300, Neut % (Auto) 82.0 H, Lymph % (Auto) 5.3 L, [place] % (Auto) 12.2 H, Eos % (Auto) 0.1, Baso % (Auto) 0.1, Absolute Neuts (auto) 8.2 H, Nucleated RBC % 0 02/06/20 05:35: Sodium 135 L, Potassium 4.0, Chloride 98, Carbon Dioxide 28.0, Anion Gap 9, BUN 76 H, Creatinine 2.88 H, Est GFR (MDRD) Af Amer 28 L, Est GFR (MDRD) Non-Af 23 L, BUN/Creatinine Ratio 26.4 H, Glucose 320 H, Calcium 8.0 L Rhythm: EKG: ECHO: Stress Test: Cardiac Cath: PCI: CT Surgery: Holter monitor: EPS: PPM: CXR: Chest CT Scan: Medical Necessity - Tobacco Use Smoking Status: Former smoker Tobacco Use: Cigarettes Assessment/Plan Interventional cardiology progress note: 1. Ischemic cardiomyopathy: It is uncertain whether the patient's ischemic cardiomyopathy has been made worse by in-stent restenosis from his previously placed stents in his LAD and circumflex in June 2019. Unfortunately to repeat his heart catheterization would put him at high risk for acute on chronic renal failure and possibly permanent renal failure requiring hemodialysis. Patient has chronically occluded right coronary artery. In addition the patient is severely anemic, possibly as a consequence of lack of erythropoietin as his dialysis discontinued about 1 month ago. Patient underwent subclavian catheter placement followed by hemodialysis removing about 2-1/2 L of fluid yesterday morning. The patient feels much better, and is most likely dialysis dependent going forward. The patient is going to undergo hemodialysis again today with possible fluid removal to assist with pulmonary hypertension and pulmonary edema. As the patient is unable to lay down flat adequately today for a period of time, we will hold off on left and right heart catheterization until Sunday. Patient may eat breakfast today. We will reassess on Sunday. Patient may require consideration of aortic valve replacement most likely with TAVR provided his coronary stents are patent. I believe the patient may benefit from TAVR procedure if it is discovered the patient has significant aortic stenosis contributing to his overall pulmonary hypertension. To do this, the patient would most likely require a ROMERO first and he is in no condition for that as of this writing. He does have fairly robust 2+ carotid upstroke bilaterally indicating that he most likely does not have significant aortic stenosis. 2. Renal insufficiency: Although the patient was reluctant to go back on dialysis, I believe he has made peace with this and feels much better after hemodialysis yesterday, as he was developing impending respiratory distress and may have required intubation. Patient is agreeable to going forward with hemodialysis into the future. He is already been set up for possible AV fistula with Dr. Bailon in the future. 3. Pulmonary hypertension: Patient's echocardiogram demonstrates severe pulmonary pretension which will hopefully improve with hemodialysis and fluid removal. We will proceed with right heart catheterization on Sunday in addition to left heart catheterization re-looking at his stented arteries. 4. Hyperlipidemia: Continue statin based medications. 5. Continue baby aspirin and Plavix given his recent PCI in June 2019. 6. Thank you very much for the opportunity to participate in the cardiac care of your patient. Discussed with Dr. Perez. Patient made breakfast this morning. Inpatient E&M: 80626 Subs Hosp L2
[2020-02-06 09:27] LABS: Hepatitis B Surface Antibody Non-Reactive
[2020-02-06 09:36] LABS: Hepatitis B Surface Antigen Non-Reactive (Nonreactive)
[2020-02-06] MEDS: BRIMONIDINE 0.2% 5ML BOTTLE 1 DRP LEFT EYE ×2 (09:52→21:35)
[2020-02-06] MEDS: Timolol 0.5% 5ML OPTH.BTL 1 DRP EACH EYE ×2 (09:54→21:38)
[2020-02-06] MEDS: guaiFENesin 1,200 MG Tablet 1200 MG PO ×2 (09:54→21:35)
--- NOTE | 2020-02-06 10:04 | PN_ITS ---
Patient Problems: Active and Suspected Problems (Last Reviewed 12/30/19 @ 07:[address] Yuan Heredia MD) Acute respiratory failure (Acute) Anemia (Acute) Elevated troponin (Acute) Subjective: Patient seen and examined. He had dialysis yesterday and states he feels much better today. He had dialysis yesterday with removal of 2 L of fluid. Urine output was also 1 L yesterday. He is in cumulative negative balance by 2.3 L. Vitals/I&O's: Vital Signs Temp Pulse Resp BP Pulse Ox 97.9 F 70 18 135/78 H 96 02/06/20 08:00 02/06/20 08:00 02/06/20 08:00 02/06/20 08:00 02/06/20 08:00 Oxygen Flow Rate (L/min) 4 Oxygen Delivery Method Nasal Cannula Weight: 166 lb 7.184 oz Body Mass Index (BMI) 25.7 Finger Stick Blood Glucose 302 Intake and Output for Last 24 Hours 02/04/20 02/05/20 02/06/20 23:59 23:59 23:59 Intake Total 1560 / 1680 326 / 426 368.75 / 368.75 Output Total 1025 / 1340 3040 / 3240 325 / 325 Balance 535 / 340 -2714 / -2814 43.75 / 43.75 General: Alert, confused, HEENT: Atraumatic, PERRLA, EOMI, Normocephalic Oral: Moist Mucosa Neck: Supple, No JVD, Negative Carotid Bruits Lungs: - - diminished breath sounds bibasally, few crackles. On 4L of oxygen by nasal canula, which is his baseline Cardiovascular: Regular rate, Regular Rhythm, Normal S1, Normal S2, No murmurs Abdomen: Bowel Sounds Present, Soft, Non Tender, Non-Distended, No Hepato- splenomegaly Extremities: No clubbing, No cyanosis, No edema, Capillary Refill Less than 3 Seconds Skin: No rashes, No breakdown Musculoskeletal: No Tenderness to Palpation of Joints or Extremities, dialysis catheter in right chest Lymphatic: No Cervical, Supraclavicular, or Inguinal Adenopathy Neurological: Cranial nerves II-XII grossly intact, Neuro grossly intact, Motor Exam 5/5 strength throughout Psych/Mental Status: Normal Affect, Appropriate, Alert and oriented to time, place, person, mood and affect Microbiology Past 72 Hours 02/05/20 11:55 Stool Stool Occult Blood (LEVI) - Final 02/03/20 11:41 Blood Culture (Wb) - No Site/Description Given Blood Culture - Preliminary No growth in 48 hours. 02/03/20 11:35 Blood Culture (Wb) - Anticubital Right Blood Culture - Preliminary No growth in 48 hours. 02/03/20 12:00 Mucosa - Nose Rapid RSV (DFA) - Final 02/03/20 12:00 Mucosa - Nose Influenza Types A,B Direct FA (LEVI) - Final Laboratory Results 02/05/20 11:34: POC Glucose 412 H 02/05/20 12:56: POC Glucose 405 H 02/05/20 14:51: POC Glucose 334 H 02/05/20 16:52: POC Glucose 302 H 02/05/20 18:20: Hep B Core Total Ab Pending 02/05/20 18:20: Hep Bs Antigen Non-Reactive 02/05/20 18:20: Hep Bs Antibody Non-Reactive 02/05/20 20:19: POC Glucose 150 H 02/05/20 22:23: POC Glucose 239 H 02/06/20 05:35: WBC 10.1, RBC 2.94 L, Hgb 8.3 L, Hct 25.8 L, MCV 87.8, MCH 28.2, MCHC 32.2, RDW Std Deviation 43.9, RDW Coeff of Janel 13.7, Plt Count 171, MPV 11.2, Immature Gran % (Auto) 0.300, Neut % (Auto) 82.0 H, Lymph % (Auto) 5.3 L, [place] % (Auto) 12.2 H, Eos % (Auto) 0.1, Baso % (Auto) 0.1, Absolute Neuts (auto) 8.2 H, Absolute Lymphs (auto) 0.53 L, Nucleated RBC % 0, Differential Comment SCANNED, Reactive Lymphocytes RARE 02/06/20 05:35: Sodium 135 L, Potassium 4.0, Chloride 98, Carbon Dioxide 28.0, Anion Gap 9, BUN 76 H, Creatinine 2.88 H, Estim Creat Clear Calc 20.78, Est GFR (MDRD) Af Amer 28 L, Est GFR (MDRD) Non-Af 23 L, BUN/Creatinine Ratio 26.4 H, Glucose 320 H, Calcium 8.0 L 02/06/20 06:19: POC Glucose 299 H Diagnostic Data Chest X-Ray 02/05/20 17:22 IMPRESSION: 1. Right jugular hemodialysis catheter. No pneumothorax. 2. Worsening CHF. Electronically Signed: Dami Levy DO at 17:34 EDT Tel [phone], Service support , Current Medications Acetaminophen (Tylenol) 650 mg PO Q6H PRN PRN PRN Reason: Pain Score 1-10/10 Albuterol Sulfate (Ventolin Aerosols) 2.5 mg INHALATION Q2H PRN PRN PRN Reason: SOB/Wheezing Last Admin: 02/05/20 00:26 Dose: 2.5 mg Documented by: Albuterol/Ipratropium (Duoneb) 3 ml INHALATION Q4H.RT [facility] Last Admin: 02/06/20 06:37 Dose: 3 ml Documented by: Atorvastatin Calcium (Lipitor) 80 mg PO QHS [facility] Last Admin: 02/05/20 22:30 Dose: 80 mg Documented by: Brimonidine Tartrate (Brimonidine 0.2% 5ml Bottle) 1 drop LEFT EYE BID [facility] Last Admin: 02/06/20 09:52 Dose: 1 drop Documented by: Buspirone HCl (Buspar) 5 mg PO TID PRN PRN PRN Reason: ANXIETY Dextrose (D50w Syringe) 0 gm IV X1 PRN; Protocol PRN Reason: Hypoglycemia Ergocalciferol (Vitamin D) 50,000 unit PO Luna@1000 [facility] Furosemide (Lasix) 80 mg IV Q8 [facility] Last Admin: 02/06/20 06:06 Dose: 80 mg Documented by: Glucagon () 1 mg IM .X1 PRN PRN Reason: Hypoglycemia Guaifenesin (Mucinex) 1,200 mg PO BID [facility] Last Admin: 02/06/20 09:54 Dose: 1,200 mg Documented by: Hydralazine HCl (Apresoline) 25 mg PO TID [facility] Last Admin: 02/06/20 06:08 Dose: 25 mg Documented by: Sodium Chloride () 1,000 mls @ 15 mls/hr IV .Q48H [facility] Last Infusion: 02/06/20 02:00 Dose: 0 mls/hr Documented by: Insulin Glargine (Lantus (Bkc)) 15 units SC BID [facility] Last Admin: 02/06/20 10:01 Dose: 15 u Documented by: Insulin Human Lispro (Humalog Kwikpen (Bk)) 0 unit SC ACHS [facility]; Protocol Last Admin: 02/06/20 06:22 Dose: 9 units Documented by: Isosorbide Mononitrate (Imdur) 60 mg PO DAILY [facility] Last Admin: 02/05/20 10:19 Dose: 60 mg Documented by: Latanoprost (Xalatan Opthalmic) 1 drop EACH EYE QHS [facility] Last Admin: 02/05/20 22:38 Dose: 1 drop Documented by: Methylprednisolone (Solu-Medrol) 40 mg IV DAILY [facility] Last Admin: 02/06/20 09:54 Dose: 40 mg Documented by: Metoprolol Succinate (Toprol Xl (Beta Antonette)) 12.5 mg PO DAILY [facility] Last Admin: 02/05/20 10:17 Dose: 12.5 mg Documented by: Nitroglycerin (Nitrostat) 0.4 mg SUBLINGUAL Q5M PRN PRN Reason: CARDIAC/CHEST PAIN Ondansetron HCl (Zofran) 4 mg IV Q8H PRN PRN PRN Reason: NAUSEA/VOMITING Sodium Chloride () 10 - 40 ml IV UD PRN PRN Reason: SALINE FLUSH Last Admin: 02/04/20 15:20 Dose: 10 ml Documented by: Sodium Chloride ([place] Nasal [place]) 2 spray NASAL Q4H PRN PRN PRN Reason: NASAL DRYNESS Last Admin: 02/04/20 07:00 Dose: 2 sprays Documented by: Timolol Maleate (Timoptic) 1 drop EACH EYE BID [facility] Last Admin: 02/06/20 09:54 Dose: 1 drop Documented by: Zolpidem Tartrate (Ambien (Generic)) 5 mg PO QHS PRN PRN PRN Reason: INSOMNIA Last Admin: 02/04/20 22:40 Dose: 5 mg Documented by: STROKE Vital Signs/Narrative: Vital Signs Temp Pulse Resp BP Pulse Ox 02/06/20 08:00 97.9 F 70 18 135/78 H 96 02/06/20 07:38 70 02/06/20 06:37 78 16 97 02/06/20 06:08 91 139/63 H Medical Necessity - Tobacco Use Smoking Status: Former smoker Tobacco Use: Cigarettes Assessment/Plan All Active Problems (Last Reviewed 12/30/19 @ 07:[address] Yuan Heredia MD) Acute respiratory failure (Acute) Anemia (Acute) Elevated troponin (Acute) Mitral regurgitation (Acute) Aortic stenosis (Acute) Acute blood loss anemia (Acute) History of coronary artery stent placement (Resolved 06/29/19) History of non-ST elevation myocardial infarction (NSTEMI) (Resolved 06/25/19) Acute kidney injury superimposed on chronic kidney disease (Resolved) Shortness of breath (Resolved) 1. Acute on chronic HFrEF * had dialysis yesterday, with removal of 2L of fluid * 2D echo(02/03)2019: EF of 30% with stage I diastolic dysfunction and severe hypokinesis of the left ventricle with RVSP of 64 mmHg and severe diffuse aortic valve thickening and moderate aortic stenosis, and dilated atria vena cava. * on IV lasix 80mg q8. * monitor intake and output; fluid restriction to 1500cc daily * breathing treatments with bronchodilators * * 2. Nonstemi * Initial troponin was 0.146 but this peaked at 1.5. * Cardiology on board. On aspirin and Plavix. * pateint;s respiratory status has improved with dialysis, but he is still unable to lie flat without getting short of breath * for likely cath on Sunday, when his resp * 3. Acute on chronic exacerbation of COPD * Influenza and RSV screen were negative. * on solumedrol 40mg daily. IV. WIll switch to PO prednisone 40mg daily x 5 days. * now on 4L of oxygen which is his baseline * 4. Acute on chronic hypoxic respiratory failure * as under 1 and 2 5. Acute on chronic anemia * Status post 2 units of packed red blood cells. Hemoglobin today is 9.2. * Iron panel showed iron of 43 with low TIBC and elevated ferritin of 804 indicating anemia of chronic disease picture likely due to the CKD. * * 6. CAD s/p stents * had 2 stents placed in LAD and one in left circumflex at [facility] in June 2019; he had total occlusion of RCA, but was not thought to be a candidate for CABG * on aspirin and plavix. * 7. CKD 4: * Creatinine today down to 2.88 * had dialysis yesterday via temporary dialysis catheter with removal of 2L * 8. Type 2 diabetes mellitus * on ISS. Accuchecks ACHS. * * DVT prophylaxis: SCDs; hold lovenox o/a of drop in hemoglobin Code status: full code. * Inpatient E&M: 39042 Subs Hosp L2
--- NOTE | 2020-02-06 11:47 | CASEMGMT ---
Addendum entered by Bear Peterson 02/06/20 14:24: Hep panel and dialysis run sheets faxed to Luis @ [facility]. Referral being processed. Per physician, pt will be here over weekend. Yoni RG Original Note: AILIN SHEPPARD Note: pt is getting second dialysis treatment today. Call received from Luis [facility]. States MWF days are more available. PH: ext [phone] FX: -Discussed post dc outpt dialysis with pt. He would like to return to [facility], MWF days are ok, however pt would NOT like am appt time. is able to transport pt. -Call and message left with Luis re: above request for times and pt agreeable to [facility] MW. Yoni RG
--- NOTE | 2020-02-06 12:18 | PN.RENAL_ITS ---
Patient Problems: Active and Suspected Problems (Last Reviewed 12/30/19 @ 07:[address] Yuan Heredia MD) Acute respiratory failure (Acute) Anemia (Acute) Elevated troponin (Acute) Subjective: no new complaints seen on HD today - Physical Exam Vitals/I&O's: Vital Signs Temp Pulse Resp BP Pulse Ox 97.9 F 75 16 135/78 H 96 02/06/20 08:00 02/06/20 10:42 02/06/20 10:42 02/06/20 08:00 02/06/20 08:00 Oxygen Flow Rate (L/min) 4 Oxygen Delivery Method Nasal Cannula Weight: 75.5 kg Body Mass Index (BMI) 25.7 Finger Stick Blood Glucose 302 Intake and Output for Last 24 Hours 02/04/20 02/05/20 02/06/20 23:59 23:59 23:59 Intake Total 1560 / 1680 326 / 426 608.75 / 608.75 Output Total 1025 / 1340 3040 / 3240 775 / 775 Balance 535 / 340 -2714 / -2814 -166.25 / -166.25 General: Alert, Oriented x3, Cooperative HEENT: Atraumatic, PERRLA, EOMI, Normocephalic Neck: Supple, No JVD, Negative Carotid Bruits Lungs: Clear to auscultation, Normal air movement Cardiovascular: Regular rate, No murmurs Abdomen: Bowel Sounds Present, Soft, Non Tender Extremities: No edema, Capillary Refill Less than 3 Seconds Skin: No rashes, No breakdown Musculoskeletal: No Tenderness to Palpation of Joints or Extremities Neurological: Cranial nerves II-XII grossly intact Psych/Mental Status: Normal Affect, Appropriate Microbiology Past 72 Hours 02/05/20 11:55 Stool Stool Occult Blood (LEVI) - Final 02/03/20 11:41 Blood Culture (Wb) - No Site/Description Given Blood Culture - Preliminary No growth in 48 hours. 02/03/20 11:35 Blood Culture (Wb) - Anticubital Right Blood Culture - Preliminary No growth in 48 hours. 02/03/20 12:00 Mucosa - Nose Rapid RSV (DFA) - Final 02/03/20 12:00 Mucosa - Nose Influenza Types A,B Direct FA (LEVI) - Final Laboratory Results 02/05/20 12:56: POC Glucose 405 H 02/05/20 14:51: POC Glucose 334 H 02/05/20 16:52: POC Glucose 302 H 02/05/20 18:20: Hep B Core Total Ab Pending 02/05/20 18:20: Hep Bs Antigen Non-Reactive 02/05/20 18:20: Hep Bs Antibody Non-Reactive 02/05/20 20:19: POC Glucose 150 H 02/05/20 22:23: POC Glucose 239 H 02/06/20 05:35: WBC 10.1, RBC 2.94 L, Hgb 8.3 L, Hct 25.8 L, MCV 87.8, MCH 28.2, MCHC 32.2, RDW Std Deviation 43.9, RDW Coeff of Janel 13.7, Plt Count 171, MPV 11.2, Immature Gran % (Auto) 0.300, Neut % (Auto) 82.0 H, Lymph % (Auto) 5.3 L, [place] % (Auto) 12.2 H, Eos % (Auto) 0.1, Baso % (Auto) 0.1, Absolute Neuts (auto) 8.2 H, Absolute Lymphs (auto) 0.53 L, Nucleated RBC % 0, Differential Comment SCANNED, Reactive Lymphocytes RARE 02/06/20 05:35: Sodium 135 L, Potassium 4.0, Chloride 98, Carbon Dioxide 28.0, Anion Gap 9, BUN 76 H, Creatinine 2.88 H, Estim Creat Clear Calc 20.78, Est GFR (MDRD) Af Amer 28 L, Est GFR (MDRD) Non-Af 23 L, BUN/Creatinine Ratio 26.4 H, Glucose 320 H, Calcium 8.0 L 02/06/20 06:19: POC Glucose 299 H Current Medications Acetaminophen (Tylenol) 650 mg PO Q6H PRN PRN PRN Reason: Pain Score 1-10/10 Albuterol Sulfate (Ventolin Aerosols) 2.5 mg INHALATION Q2H PRN PRN PRN Reason: SOB/Wheezing Last Admin: 02/05/20 00:26 Dose: 2.5 mg Documented by: Albuterol/Ipratropium (Duoneb) 3 ml INHALATION Q4H.RT [facility] Last Admin: 02/06/20 10:48 Dose: 3 ml Documented by: Atorvastatin Calcium (Lipitor) 80 mg PO QHS [facility] Last Admin: 02/05/20 22:30 Dose: 80 mg Documented by: Brimonidine Tartrate (Brimonidine 0.2% 5ml Bottle) 1 drop LEFT EYE BID [facility] Last Admin: 02/06/20 09:52 Dose: 1 drop Documented by: Buspirone HCl (Buspar) 5 mg PO TID PRN PRN PRN Reason: ANXIETY Dextrose (D50w Syringe) 0 gm IV X1 PRN; Protocol PRN Reason: Hypoglycemia Ergocalciferol (Vitamin D) 50,000 unit PO Luna@1000 [facility] Furosemide (Lasix) 80 mg IV Q8 [facility] Last Admin: 02/06/20 06:06 Dose: 80 mg Documented by: Glucagon () 1 mg IM .X1 PRN PRN Reason: Hypoglycemia Guaifenesin (Mucinex) 1,200 mg PO BID [facility] Last Admin: 02/06/20 09:54 Dose: 1,200 mg Documented by: Hydralazine HCl (Apresoline) 25 mg PO TID [facility] Last Admin: 02/06/20 06:08 Dose: 25 mg Documented by: Sodium Chloride () 1,000 mls @ 15 mls/hr IV .Q48H [facility] Last Infusion: 02/06/20 02:00 Dose: 0 mls/hr Documented by: Insulin Glargine (Lantus (Bkc)) 15 units SC BID [facility] Last Admin: 02/06/20 10:01 Dose: 15 u Documented by: Insulin Human Lispro (Humalog Kwikpen (Bkc)) 0 unit SC ACHS [facility]; Protocol Last Admin: 02/06/20 12:11 Dose: Not Given Documented by: Isosorbide Mononitrate (Imdur) 60 mg PO DAILY [facility] Last Admin: 02/05/20 10:19 Dose: 60 mg Documented by: Latanoprost (Xalatan Opthalmic) 1 drop EACH EYE QHS [facility] Last Admin: 02/05/20 22:38 Dose: 1 drop Documented by: Methylprednisolone (Solu-Medrol) 40 mg IV DAILY [facility] Last Admin: 02/06/20 09:54 Dose: 40 mg Documented by: Metoprolol Succinate (Toprol Xl (Beta Anton[place])) 12.5 mg PO DAILY [facility] Last Admin: 02/05/20 10:17 Dose: 12.5 mg Documented by: Nitroglycerin (Nitrostat) 0.4 mg SUBLINGUAL Q5M PRN PRN Reason: CARDIAC/CHEST PAIN Ondansetron HCl (Zofran) 4 mg IV Q8H PRN PRN PRN Reason: NAUSEA/VOMITING Sodium Chloride () 10 - 40 ml IV UD PRN PRN Reason: SALINE FLUSH Last Admin: 02/04/20 15:20 Dose: 10 ml Documented by: Sodium Chloride ([place] Nasal [place]) 2 spray NASAL Q4H PRN PRN PRN Reason: NASAL DRYNESS Last Admin: 02/04/20 07:00 Dose: 2 sprays Documented by: Timolol Maleate (Timoptic) 1 drop EACH EYE BID [facility] Last Admin: 02/06/20 09:54 Dose: 1 drop Documented by: Zolpidem Tartrate (Ambien (Generic)) 5 mg PO QHS PRN PRN PRN Reason: INSOMNIA Last Admin: 02/04/20 22:40 Dose: 5 mg Documented by: Medical Necessity - Tobacco Use Smoking Status: Former smoker Tobacco Use: Cigarettes Assessment/Plan All Active Problems (Last Reviewed 12/30/19 @ 07:[address] Yuan Heredia MD) Acute respiratory failure (Acute) Anemia (Acute) Elevated troponin (Acute) Mitral regurgitation (Acute) Aortic stenosis (Acute) Acute blood loss anemia (Acute) History of coronary artery stent placement (Resolved 06/29/19) History of non-ST elevation myocardial infarction (NSTEMI) (Resolved 06/25/19) Acute kidney injury superimposed on chronic kidney disease (Resolved) Shortness of breath (Resolved) Acute renal failure Chronic kidney disease stage IV Congestive heart failure In decompensated heart failure. Troponins are elevated. Had coronary angiogram in June and will need repeat evaluation. Fluid overload despite receiving IV Lasix. received a RIJ tunneled dialysis catheter yesterday. HD yesterday and to day. seen on HD today. will go for another 2-3 L. breathing is better than yesterday clinically. will plan for another HD tomorrow and try for more fluid. plan is to go for cardiac cath on sunday dw SW. working on placement after discharge anemia. He did receive blood transfusion. will start LAUREL with dialysis needs dialysis snf. needs vein mapping and AVF placement. will refer to Dr Bazzi as outpatient
--- NOTE | 2020-02-06 12:23 | PN_ITS ---
Patient Problems: Active and Suspected Problems (Last Reviewed 12/30/19 @ 07:[address] Yuan Heredia MD) Acute respiratory failure (Acute) Anemia (Acute) Elevated troponin (Acute) Subjective: The patient was seen and examined at the bedside this morning. Events from the last 24 hours have been reviewed. The patient is currently afebrile, hemodynamically stable and maintaining appropriate oxygen saturations on 4 L/min via nasal cannula. The patient underwent successful tunneled dialysis catheter placement yesterday. The patient was then dialyzed and underwent 2 L of overall fluid removal. Breathing quality has improved. Objective: The patient's most recent lab work, culture data and imaging studies have all been personally reviewed. 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 - Physical Exam Vitals/I&O's: Vital Signs Temp Pulse Resp BP Pulse Ox 97.9 F 75 16 135/78 H 96 02/06/20 08:00 02/06/20 10:42 02/06/20 10:42 02/06/20 08:00 02/06/20 08:00 Oxygen Flow Rate (L/min) 4 Oxygen Delivery Method Nasal Cannula Weight: 166 lb 7.184 oz Body Mass Index (BMI) 25.7 Finger Stick Blood Glucose 302 Intake and Output for Last 24 Hours 02/04/20 02/05/20 02/06/20 23:59 23:59 23:59 Intake Total 1560 / 1680 326 / 426 608.75 / 608.75 Output Total 1025 / 1340 3040 / 3240 775 / 775 Balance 535 / 340 -2714 / -2814 -166.25 / -166.25 General: Alert, Cooperative, No apparent distress HEENT: Atraumatic, Normocephalic Oral: No Gingival or Mucosal Lesions/ Ulcerations Neck: Supple, No Nodes, Trachea Midline Lungs: No rhonchi, No wheeze, Diminished, Rales Cardiovascular: Regular rate, Regular Rhythm, Normal S1, Normal S2 Abdomen: Bowel Sounds Present, Soft, Non Tender Extremities: No clubbing, No cyanosis, No edema Skin: No breakdown Musculoskeletal: No Tenderness to Palpation of Joints or Extremities Lymphatic: No Cervical, Supraclavicular, or Inguinal Adenopathy Neurological: Neuro grossly intact Psych/Mental Status: Normal Affect, Appropriate Labs (Last 48 Hours) 02/04/20 02/04/20 02/04/20 07:20 16:58 22:30 WBC RBC Hgb Hct MCV MCH MCHC RDW Std Deviation RDW Coeff of Janel Plt Count MPV Immature Gran % (Auto) Neut % (Auto) Lymph % (Auto) [place] % (Auto) Eos % (Auto) Baso % (Auto) Absolute Neuts (auto) Absolute Lymphs (auto) Nucleated RBC % Differential Comment Reactive Lymphocytes Specimen Type Sample Site pH Bicarbonate Actual POC Total CO2 Base Excess O2 Saturation O2 % ABG pCO2 ABG pO2 Price Test Respiration Rate O2 Delivery Device EPAP IPAP Blood Gas Notified Whom Blood Gas Notified Time Sodium Potassium Chloride Carbon Dioxide Anion Gap BUN Creatinine Estim Creat Clear Calc Est GFR (MDRD) Af Amer Est GFR (MDRD) Non-Af BUN/Creatinine Ratio Glucose Calcium Hep Bs Antigen Hep Bs Antibody Hep B Core Total Ab POC Glucose 152 H 418 H Blood Type O POSITIVE Antibody Screen NEGATIVE Crossmatch See Detail 02/05/20 02/05/20 02/05/20 05:40 05:40 06:01 WBC 10.4 RBC 3.29 L Hgb 9.2 L Hct 28.7 L MCV 87.2 MCH 28.0 MCHC 32.1 RDW Std Deviation 44.0 H RDW Coeff of Janel 14.0 Plt Count 215 MPV 11.1 Immature Gran % (Auto) 0.300 Neut % (Auto) 93.9 H Lymph % (Auto) 2.4 L [place] % (Auto) 3.3 Eos % (Auto) 0.0 Baso % (Auto) 0.1 Absolute Neuts (auto) 9.7 H Absolute Lymphs (auto) 0.25 L Nucleated RBC % 0 Differential Comment SCANNED Reactive Lymphocytes Specimen Type Sample Site pH Bicarbonate Actual POC Total CO2 Base Excess O2 Saturation O2 % ABG pCO2 ABG pO2 Price Test Respiration Rate O2 Delivery Device EPAP IPAP Blood Gas Notified Whom Blood Gas Notified Time Sodium 132 L Potassium 4.2 Chloride 93 L Carbon Dioxide 25.0 Anion Gap 14 BUN 96 H Creatinine 3.46 H Estim Creat Clear Calc 17.30 Est GFR (MDRD) Af Amer 22 L Est GFR (MDRD) Non-Af 18 L BUN/Creatinine Ratio 27.7 H Glucose 488 H* Calcium 8.5 Hep Bs Antigen Hep Bs Antibody Hep B Core Total Ab POC Glucose 459 H* Blood Type Antibody Screen Crossmatch 02/05/20 02/05/20 02/05/20 07:15 11:34 12:56 WBC RBC Hgb Hct MCV MCH MCHC RDW Std Deviation RDW Coeff of Janel Plt Count MPV Immature Gran % (Auto) Neut % (Auto) Lymph % (Auto) [place] % (Auto) Eos % (Auto) Baso % (Auto) Absolute Neuts (auto) Absolute Lymphs (auto) Nucleated RBC % Differential Comment Reactive Lymphocytes Specimen Type ART Sample Site L RADIAL pH 7.41 Bicarbonate Actual 26.1 H POC Total CO2 27 Base Excess 1 O2 Saturation 97 O2 % 25 ABG pCO2 40.9 ABG pO2 86 Price Test YES Respiration Rate 12 O2 Delivery Device BIPAP EPAP 8 IPAP 16 Blood Gas Notified Whom [facility] Blood Gas Notified Time 715 Sodium Potassium Chloride Carbon Dioxide Anion Gap BUN Creatinine Estim Creat Clear Calc Est GFR (MDRD) Af Amer Est GFR (MDRD) Non-Af BUN/Creatinine Ratio Glucose Calcium Hep Bs Antigen Hep Bs Antibody Hep B Core Total Ab POC Glucose 412 H 405 H Blood Type Antibody Screen Crossmatch 02/05/20 02/05/20 02/05/20 14:51 16:52 18:20 WBC RBC Hgb Hct MCV MCH MCHC RDW Std Deviation RDW Coeff of Janel Plt Count MPV Immature Gran % (Auto) Neut % (Auto) Lymph % (Auto) [place] % (Auto) Eos % (Auto) Baso % (Auto) Absolute Neuts (auto) Absolute Lymphs (auto) Nucleated RBC % Differential Comment Reactive Lymphocytes Specimen Type Sample Site pH Bicarbonate Actual POC Total CO2 Base Excess O2 Saturation O2 % ABG pCO2 ABG pO2 Price Test Respiration Rate O2 Delivery Device EPAP IPAP Blood Gas Notified Whom Blood Gas Notified Time Sodium Potassium Chloride Carbon Dioxide Anion Gap BUN Creatinine Estim Creat Clear Calc Est GFR (MDRD) Af Amer Est GFR (MDRD) Non-Af BUN/Creatinine Ratio Glucose Calcium Hep Bs Antigen Hep Bs Antibody Hep B Core Total Ab Pending POC Glucose 334 H 302 H Blood Type Antibody Screen Crossmatch 02/05/20 02/05/20 02/05/20 18:20 18:20 20:19 WBC RBC Hgb Hct MCV MCH MCHC RDW Std Deviation RDW Coeff of Janel Plt Count MPV Immature Gran % (Auto) Neut % (Auto) Lymph % (Auto) [place] % (Auto) Eos % (Auto) Baso % (Auto) Absolute Neuts (auto) Absolute Lymphs (auto) Nucleated RBC % Differential Comment Reactive Lymphocytes Specimen Type Sample Site pH Bicarbonate Actual POC Total CO2 Base Excess O2 Saturation O2 % ABG pCO2 ABG pO2 Price Test Respiration Rate O2 Delivery Device EPAP IPAP Blood Gas Notified Whom Blood Gas Notified Time Sodium Potassium Chloride Carbon Dioxide Anion Gap BUN Creatinine Estim Creat Clear Calc Est GFR (MDRD) Af Amer Est GFR (MDRD) Non-Af BUN/Creatinine Ratio Glucose Calcium Hep Bs Antigen Non-Reactive Hep Bs Antibody Non-Reactive Hep B Core Total Ab POC Glucose 150 H Blood Type Antibody Screen Crossmatch 02/05/20 02/06/20 02/06/20 22:23 05:35 05:35 WBC 10.1 RBC 2.94 L Hgb 8.3 L Hct 25.8 L MCV 87.8 MCH 28.2 MCHC 32.2 RDW Std Deviation 43.9 RDW Coeff of Janel 13.7 Plt Count 171 MPV 11.2 Immature Gran % (Auto) 0.300 Neut % (Auto) 82.0 H Lymph % (Auto) 5.3 L [place] % (Auto) 12.2 H Eos % (Auto) 0.1 Baso % (Auto) 0.1 Absolute Neuts (auto) 8.2 H Absolute Lymphs (auto) 0.53 L Nucleated RBC % 0 Differential Comment SCANNED Reactive Lymphocytes RARE Specimen Type Sample Site pH Bicarbonate Actual POC Total CO2 Base Excess O2 Saturation O2 % ABG pCO2 ABG pO2 Price Test Respiration Rate O2 Delivery Device EPAP IPAP Blood Gas Notified Whom Blood Gas Notified Time Sodium 135 L Potassium 4.0 Chloride 98 Carbon Dioxide 28.0 Anion Gap 9 BUN 76 H Creatinine 2.88 H Estim Creat Clear Calc 20.78 Est GFR (MDRD) Af Amer 28 L Est GFR (MDRD) Non-Af 23 L BUN/Creatinine Ratio 26.4 H Glucose 320 H Calcium 8.0 L Hep Bs Antigen Hep Bs Antibody Hep B Core Total Ab POC Glucose 239 H Blood Type Antibody Screen Crossmatch 02/06/20 06:19 WBC RBC Hgb Hct MCV MCH MCHC RDW Std Deviation RDW Coeff of Janel Plt Count MPV Immature Gran % (Auto) Neut % (Auto) Lymph % (Auto) [place] % (Auto) Eos % (Auto) Baso % (Auto) Absolute Neuts (auto) Absolute Lymphs (auto) Nucleated RBC % Differential Comment Reactive Lymphocytes Specimen Type Sample Site pH Bicarbonate Actual POC Total CO2 Base Excess O2 Saturation O2 % ABG pCO2 ABG pO2 Price Test Respiration Rate O2 Delivery Device EPAP IPAP Blood Gas Notified Whom Blood Gas Notified Time Sodium Potassium Chloride Carbon Dioxide Anion Gap BUN Creatinine Estim Creat Clear Calc Est GFR (MDRD) Af Amer Est GFR (MDRD) Non-Af BUN/Creatinine Ratio Glucose Calcium Hep Bs Antigen Hep Bs Antibody Hep B Core Total Ab POC Glucose 299 H Blood Type Antibody Screen Crossmatch Microbiology 02/05/20 11:55 Stool Stool Occult Blood (LEVI) - Final 02/03/20 11:41 Blood Culture (Wb) - No Site/Description Given Blood Culture - Preliminary No growth in 48 hours. 02/03/20 11:35 Blood Culture (Wb) - Anticubital Right Blood Culture - Preliminary No growth in 48 hours. Clinical Impression(s) from Imaging Studies Chest X-Ray 02/03/20 11:43 IMPRESSION: Findings in keeping with CHF superimposed on chronic basilar scarring with small bilateral effusions. Electronically Signed: Fabricio Shah, at 12:39 EDT , Service support , Chest X-Ray 02/05/20 17:22 IMPRESSION: 1. Right jugular hemodialysis catheter. No pneumothorax. 2. Worsening CHF. Electronically Signed: Dami Levy DO at 17:34 EDT Tel [phone], Service support , Current Medications Acetaminophen (Tylenol) 650 mg PO Q6H PRN PRN PRN Reason: Pain Score 1-10/10 Albuterol Sulfate (Ventolin Aerosols) 2.5 mg INHALATION Q2H PRN PRN PRN Reason: SOB/Wheezing Last Admin: 02/05/20 00:26 Dose: 2.5 mg Documented by: Albuterol/Ipratropium (Duoneb) 3 ml INHALATION Q4H.RT KELIN Last Admin: 02/06/20 10:48 Dose: 3 ml Documented by: Atorvastatin Calcium (Lipitor) 80 mg PO QHS [facility] Last Admin: 02/05/20 22:30 Dose: 80 mg Documented by: Brimonidine Tartrate (Brimonidine 0.2% 5ml Bottle) 1 drop LEFT EYE BID [facility] Last Admin: 02/06/20 09:52 Dose: 1 drop Documented by: Buspirone HCl (Buspar) 5 mg PO TID PRN PRN PRN Reason: ANXIETY Dextrose (D50w Syringe) 0 gm IV X1 PRN; Protocol PRN Reason: Hypoglycemia Ergocalciferol (Vitamin D) 50,000 unit PO Luna@1000 KELIN Furosemide (Lasix) 80 mg IV Q8 [facility] Last Admin: 02/06/20 06:06 Dose: 80 mg Documented by: Glucagon () 1 mg IM .X1 PRN PRN Reason: Hypoglycemia Guaifenesin (Mucinex) 1,200 mg PO BID [facility] Last Admin: 02/06/20 09:54 Dose: 1,200 mg Documented by: Hydralazine HCl (Apresoline) 25 mg PO TID [facility] Last Admin: 02/06/20 06:08 Dose: 25 mg Documented by: Sodium Chloride () 1,000 mls @ 15 mls/hr IV .Q48H [facility] Last Infusion: 02/06/20 02:00 Dose: 0 mls/hr Documented by: Insulin Glargine (Lantus (Bkc)) 15 units SC BID [facility] Last Admin: 02/06/20 10:01 Dose: 15 u Documented by: Insulin Human Lispro (Humalog Kwikpen (Bk)) 0 unit SC ACHS [facility]; Protocol Last Admin: 02/06/20 12:11 Dose: Not Given Documented by: Isosorbide Mononitrate (Imdur) 60 mg PO DAILY [facility] Last Admin: 02/05/20 10:19 Dose: 60 mg Documented by: Latanoprost (Xalatan Opthalmic) 1 drop EACH EYE QHS [facility] Last Admin: 02/05/20 22:38 Dose: 1 drop Documented by: Methylprednisolone (Solu-Medrol) 40 mg IV DAILY [facility] Last Admin: 02/06/20 09:54 Dose: 40 mg Documented by: Metoprolol Succinate (Toprol Xl (Beta Antonette)) 12.5 mg PO DAILY [facility] Last Admin: 02/05/20 10:17 Dose: 12.5 mg Documented by: Nitroglycerin (Nitrostat) 0.4 mg SUBLINGUAL Q5M PRN PRN Reason: CARDIAC/CHEST PAIN Ondansetron HCl (Zofran) 4 mg IV Q8H PRN PRN PRN Reason: NAUSEA/VOMITING Sodium Chloride () 10 - 40 ml IV UD PRN PRN Reason: SALINE FLUSH Last Admin: 02/04/20 15:20 Dose: 10 ml Documented by: Sodium Chloride ([place] Nasal [place]) 2 spray NASAL Q4H PRN PRN PRN Reason: NASAL DRYNESS Last Admin: 02/04/20 07:00 Dose: 2 sprays Documented by: Timolol Maleate (Timoptic) 1 drop EACH EYE BID [facility] Last Admin: 02/06/20 09:54 Dose: 1 drop Documented by: Zolpidem Tartrate (Ambien (Generic)) 5 mg PO QHS PRN PRN PRN Reason: INSOMNIA Last Admin: 02/04/20 22:40 Dose: 5 mg Documented by: Medical Necessity - Tobacco Use Smoking Status: Former smoker Tobacco Use: Cigarettes Assessment/Plan All Active Problems (Last Reviewed 12/30/19 @ 07:[address] Yuan Heredia MD) Acute respiratory failure (Acute) Anemia (Acute) Elevated troponin (Acute) Mitral regurgitation (Acute) Aortic stenosis (Acute) Acute blood loss anemia (Acute) History of coronary artery stent placement (Resolved 06/29/19) History of non-ST elevation myocardial infarction (NSTEMI) (Resolved 06/25/19) Acute kidney injury superimposed on chronic kidney disease (Resolved) Shortness of breath (Resolved) RECOMMENDATIONS: 1. Continue scheduled bronchodilators and steroids. 2. Continue volume optimization with hemodialysis per nephrology recommendations. 3. Wean supplemental oxygen to maintain saturations at or above 90%. 4. Encourage incentive spirometer use and mobilize patient as tolerated. 5. Perform walking oximetry study prior to consideration for discharge home. 6. Resume triple therapy inhaler regimen at discharge. IMPRESSIONS: 1. Acute on chronic hypoxemic respiratory failure Suspect this is primarily related to decompensated heart failure. The patient's respiratory status is improving in the setting of volume optimization through hemodialysis. Agree with continuing the aforementioned per nephrology recommendations. Continue scheduled bronchodilators and steroids. The patient should resume his triple therapy inhaler regimen at discharge. 2. Anemia The patient does have evidence of normocytic anemia with a hemoglobin seth of 6.9 on February 03. The patient did receive 2 units of packed red blood cells with subsequent worsening in his respiratory status. Again, this is likely secondary to his inability to tolerate volume associated with transfusion of blood products. Continue to monitor H&H daily. Plan to transfuse if hemoglobin drops below 7 g/dL. 3. Ischemic cardiomyopathy status post recent PCI/non-ST segment elevation DC Continue current medical management per cardiology recommendations. Tentative plans for cardiac catheterization early next week. 4. Chronic kidney disease Nephrology following to assist with hemodialysis needs. 5. Diabetes mellitus/hypertension/hyperlipidemia Complicates care, management, recovery and prognosis. Continue home medications as indicated. This note was generated with [employer] dictation software. It may contain incorrect words, spelling, and punctuation that were not noted in checking the note before signing. Inpatient E&M: 95292 Subs Hosp L2
[2020-02-06 13:16] LABS: Bedside Glucose 200 mg/dL (70-110)
[2020-02-06 13:16] LABS: Bedside Glucose 166 mg/dL (70-110)
--- NOTE | 2020-02-06 13:29 | DIALYSIS ---
Hemodialysis x 2.5hours completed. -2200ml off. stable t/o. CVC closed with heparin to each lumen fill volume. CVC dressing changed today and CHG dressing applied. Report fromto RN
[2020-02-06] MEDS: Heparin 10,000 UNITS/10 ML Vial IV (13:30)
[2020-02-06] MEDS: Metoprolol(XL)Succ 25 MG Tablet 12.5 MG PO (14:01)
[2020-02-06] MEDS: Isosorbide Mononitrate 60 MG Tablet PO (14:02)
[2020-02-06] MEDS: busPIRone 5 MG Tablet PO (14:38)
[2020-02-06 16:25] LABS: Bedside Glucose 416 mg/dL (70-110)
[2020-02-06] MEDS: Atorvastatin Calcium 80 MG Tablet PO (21:35)
[2020-02-06] MEDS: Benzonatate 100 MG Capsule 200 MG PO (21:35)
[2020-02-06] MEDS: Zolpidem Tartrate 5 MG Tablet PO (21:35)
[2020-02-06] MEDS: Latanoprost 0.005% 1 Bottle 1 DRP EACH EYE (21:37)
[2020-02-06] MEDS: 0.9% Saline Lock 10 ML Syringe IV (21:44)
[2020-02-06 22:06] LABS: Bedside Glucose 313 mg/dL (70-110)
[2020-02-07] VITALS (19 sets, daily range): BP systolic 103–144; BP diastolic 54–72; PULSE 59–90; RESP 17–20; TEMP 36.5–36.9; O2SAT 98–100
[2020-02-07] MEDS: Ipratropium/Albuterol Sulfate 3 ML AMPUL.NEB INHALATION ×5 (03:23→23:01)
--- NOTE | 2020-02-07 03:24 | CPS ---
pt declined use of bipap this evening
[2020-02-07 06:09] LABS: Absolute Lymphocyte Count 0.58 X10^3/uL (0.83-4.51); Absolute Neutrophil Count 6.4 X10^3/uL (2.0-7.7); Basophil# 0.01 X10^3/uL; Basophil% 0.1 % (0-1); Differential Indicated SCAN CRITERIA MET; Eosinophil# 0.03 X10^3/uL; Eosinophils% 0.4 % (0-5); Hemoglobin 8.9 g/dL (13.0-16.5); Lymphocyte # 0.58 X10^3/ul (4.0); Mean Corp Hgb Conc 31.8 g/dL (32-36); Mean Corpuscular Hgb 28.3 pg (27.0-32.0); Mean Corpuscular Volume 88.9 fL (80-94); Mean Platelet Vol. 11.3 fl (6.2-12.0); Monocyte# 1.15 X10^3/uL; NRBC Flagged by Analyzer 0 % (0-5); Neutrophil # 6.44 X10^3/uL (2.7-7.7); Neutrophil % 78.1 % (47-70); POSITIVE DIFFERENTIAL YES; Platelet Count 157 K/mm3 (150-450); RBC Distribution Width CV 13.1 % (11.6-14.6); RBC Distribution Width SD 42.6 fl (35.1-43.9); Red Blood Count 3.15 M/mm3 (4.6-6.2); White Blood Count 8.2 K/mm3 (4.4-11.0)
[2020-02-07 06:25] LABS: Differential Comment SCANNED
[2020-02-07 06:32] LABS: Anion Gap 8 (5-15); BUN 63 mg/dL (7-18); BUN/Creat Ratio 23.8 RATIO (10-20); Calcium,Total 7.5 mg/dL (8.5-10.1); Chloride 98 mmol/L (98-107); Creatinine, Serum 2.65 mg/dL (0.70-1.30); EST Glomerular Filtration Rate 25 mL/min (>60); Est Glom Filt Rate - Afr Amer 30 mL/min (>60); Estimated Creatinine Clearance 22.58 ml/min; Glucose 307 mg/dL (74-106); Potassium 3.7 mmol/L (3.5-5.1); Sodium Level 135 mmol/L (136-145)
[2020-02-07] MEDS: Insulin Lispro 100 UNIT/ML INSULN.PEN SC ×3 (06:45→22:09)
[2020-02-07] MEDS: Furosemide 100 MG/10 ML Vial 80 MG IV ×3 (06:46→22:13)
[2020-02-07] MEDS: hydrALAZINE 25 MG Tablet PO ×3 (06:46→22:11)
[2020-02-07] MEDS: 0.9% Saline Lock 10 ML Syringe IV ×3 (06:48→22:12)
[2020-02-07 07:00] LABS: Bedside Glucose 336 mg/dL (70-110)
--- NOTE | 2020-02-07 08:17 | PN_ITS ---
Patient Problems: Active and Suspected Problems (Last Reviewed 12/30/19 @ 07:[address] Yuan Heredia MD) Acute respiratory failure (Acute) Anemia (Acute) Elevated troponin (Acute) Subjective: The patient was seen and examined at the bedside this morning. Events from the last 24 hours have been reviewed. The patient is currently afebrile, hemodynamically stable and maintaining appropriate oxygen saturations on 4 L/min via nasal cannula. Objective: The patient's most recent lab work, culture data and imaging studies have all been personally reviewed. 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 - Physical Exam Vitals/I&O's: Vital Signs Temp Pulse Resp BP Pulse Ox 98.4 F 70 18 139/72 H 100 02/07/20 03:00 02/07/20 06:48 02/07/20 03:23 02/07/20 03:00 02/07/20 03:00 Oxygen Flow Rate (L/min) 4 Oxygen Delivery Method Nasal Cannula Weight: 169 lb 12.095 oz Body Mass Index (BMI) 25.7 Finger Stick Blood Glucose 302 Intake and Output for Last 24 Hours 02/05/20 02/06/20 02/07/20 23:59 23:59 23:59 Intake Total 326 / 426 1038.75 / 1038.75 180 / 180 Output Total 3040 / 3240 3675 / 3675 450 / 450 Balance -2714 / -2814 -2636.25 / -2636.25 -270 / -270 General: Alert, Cooperative, No apparent distress HEENT: Atraumatic, Normocephalic Oral: No Gingival or Mucosal Lesions/ Ulcerations Neck: Supple, No Nodes, Trachea Midline Lungs: No rhonchi, No wheeze, No rales, Diminished Cardiovascular: Regular rate, Regular Rhythm, Normal S1, Normal S2, Murmur Abdomen: Bowel Sounds Present, Soft, Non Tender Extremities: No clubbing, No cyanosis Skin: No breakdown Musculoskeletal: No Tenderness to Palpation of Joints or Extremities Lymphatic: No Cervical, Supraclavicular, or Inguinal Adenopathy Neurological: Cranial nerves II-XII grossly intact, Neuro grossly intact Psych/Mental Status: Normal Affect, Appropriate Labs (Last 48 Hours) 03/02/05/20 02/05/20 07:15 11:34 12:56 WBC RBC Hgb Hct MCV MCH MCHC RDW Std Deviation RDW Coeff of Janel Plt Count MPV Immature Gran % (Auto) Neut % (Auto) Lymph % (Auto) [place] % (Auto) Eos % (Auto) Baso % (Auto) Absolute Neuts (auto) Absolute Lymphs (auto) Nucleated RBC % Differential Comment Reactive Lymphocytes Specimen Type ART Sample Site L RADIAL pH 7.41 Bicarbonate Actual 26.1 H POC Total CO2 27 Base Excess 1 O2 Saturation 97 O2 % 25 ABG pCO2 40.9 ABG pO2 86 Price Test YES Respiration Rate 12 O2 Delivery Device BIPAP EPAP 8 IPAP 16 Blood Gas Notified Whom HOSP Blood Gas Notified Time 715 Sodium Potassium Chloride Carbon Dioxide Anion Gap BUN Creatinine Estim Creat Clear Calc Est GFR (MDRD) Af Amer Est GFR (MDRD) Non-Af BUN/Creatinine Ratio Glucose Calcium Hep Bs Antigen Hep Bs Antibody Hep B Core Total Ab POC Glucose 412 H 405 H 02/05/20 02/05/20 02/05/20 14:51 16:52 18:20 WBC RBC Hgb Hct MCV MCH MCHC RDW Std Deviation RDW Coeff of Janel Plt Count MPV Immature Gran % (Auto) Neut % (Auto) Lymph % (Auto) [place] % (Auto) Eos % (Auto) Baso % (Auto) Absolute Neuts (auto) Absolute Lymphs (auto) Nucleated RBC % Differential Comment Reactive Lymphocytes Specimen Type Sample Site pH Bicarbonate Actual POC Total CO2 Base Excess O2 Saturation O2 % ABG pCO2 ABG pO2 Price Test Respiration Rate O2 Delivery Device EPAP IPAP Blood Gas Notified Whom Blood Gas Notified Time Sodium Potassium Chloride Carbon Dioxide Anion Gap BUN Creatinine Estim Creat Clear Calc Est GFR (MDRD) Af Amer Est GFR (MDRD) Non-Af BUN/Creatinine Ratio Glucose Calcium Hep Bs Antigen Hep Bs Antibody Hep B Core Total Ab Pending POC Glucose 334 H 302 H 02/05/20 02/05/20 02/05/20 18:20 18:20 20:19 WBC RBC Hgb Hct MCV MCH MCHC RDW Std Deviation RDW Coeff of Janel Plt Count MPV Immature Gran % (Auto) Neut % (Auto) Lymph % (Auto) [place] % (Auto) Eos % (Auto) Baso % (Auto) Absolute Neuts (auto) Absolute Lymphs (auto) Nucleated RBC % Differential Comment Reactive Lymphocytes Specimen Type Sample Site pH Bicarbonate Actual POC Total CO2 Base Excess O2 Saturation O2 % ABG pCO2 ABG pO2 Price Test Respiration Rate O2 Delivery Device EPAP IPAP Blood Gas Notified Whom Blood Gas Notified Time Sodium Potassium Chloride Carbon Dioxide Anion Gap BUN Creatinine Estim Creat Clear Calc Est GFR (MDRD) Af Amer Est GFR (MDRD) Non-Af BUN/Creatinine Ratio Glucose Calcium Hep Bs Antigen Non-Reactive Hep Bs Antibody Non-Reactive Hep B Core Total Ab POC Glucose 150 H 02/05/20 02/06/20 02/06/20 22:23 05:35 05:35 WBC 10.1 RBC 2.94 L Hgb 8.3 L Hct 25.8 L MCV 87.8 MCH 28.2 MCHC 32.2 RDW Std Deviation 43.9 RDW Coeff of Janel 13.7 Plt Count 171 MPV 11.2 Immature Gran % (Auto) 0.300 Neut % (Auto) 82.0 H Lymph % (Auto) 5.3 L [place] % (Auto) 12.2 H Eos % (Auto) 0.1 Baso % (Auto) 0.1 Absolute Neuts (auto) 8.2 H Absolute Lymphs (auto) 0.53 L Nucleated RBC % 0 Differential Comment SCANNED Reactive Lymphocytes RARE Specimen Type Sample Site pH Bicarbonate Actual POC Total CO2 Base Excess O2 Saturation O2 % ABG pCO2 ABG pO2 Price Test Respiration Rate O2 Delivery Device EPAP IPAP Blood Gas Notified Whom Blood Gas Notified Time Sodium 135 L Potassium 4.0 Chloride 98 Carbon Dioxide 28.0 Anion Gap 9 BUN 76 H Creatinine 2.88 H Estim Creat Clear Calc 20.78 Est GFR (MDRD) Af Amer 28 L Est GFR (MDRD) Non-Af 23 L BUN/Creatinine Ratio 26.4 H Glucose 320 H Calcium 8.0 L Hep Bs Antigen Hep Bs Antibody Hep B Core Total Ab POC Glucose 239 H 02/06/20 02/06/20 02/06/20 06:19 11:43 13:11 WBC RBC Hgb Hct MCV MCH MCHC RDW Std Deviation RDW Coeff of Janel Plt Count MPV Immature Gran % (Auto) Neut % (Auto) Lymph % (Auto) [place] % (Auto) Eos % (Auto) Baso % (Auto) Absolute Neuts (auto) Absolute Lymphs (auto) Nucleated RBC % Differential Comment Reactive Lymphocytes Specimen Type Sample Site pH Bicarbonate Actual POC Total CO2 Base Excess O2 Saturation O2 % ABG pCO2 ABG pO2 Price Test Respiration Rate O2 Delivery Device EPAP IPAP Blood Gas Notified Whom Blood Gas Notified Time Sodium Potassium Chloride Carbon Dioxide Anion Gap BUN Creatinine Estim Creat Clear Calc Est GFR (MDRD) Af Amer Est GFR (MDRD) Non-Af BUN/Creatinine Ratio Glucose Calcium Hep Bs Antigen Hep Bs Antibody Hep B Core Total Ab POC Glucose 299 H 200 H 166 H 02/06/20 02/06/20 02/07/20 16:12 21:29 05:37 WBC 8.2 RBC 3.15 L Hgb 8.9 L Hct 28.0 L MCV 88.9 MCH 28.3 MCHC 31.8 L RDW Std Deviation 42.6 RDW Coeff of Janel 13.1 Plt Count 157 MPV 11.3 Immature Gran % (Auto) 0.400 Neut % (Auto) 78.1 H Lymph % (Auto) 7.0 L [place] % (Auto) 14.0 H Eos % (Auto) 0.4 Baso % (Auto) 0.1 Absolute Neuts (auto) 6.4 Absolute Lymphs (auto) 0.58 L Nucleated RBC % 0 Differential Comment SCANNED Reactive Lymphocytes Specimen Type Sample Site pH Bicarbonate Actual POC Total CO2 Base Excess O2 Saturation O2 % ABG pCO2 ABG pO2 Price Test Respiration Rate O2 Delivery Device EPAP IPAP Blood Gas Notified Whom Blood Gas Notified Time Sodium Potassium Chloride Carbon Dioxide Anion Gap BUN Creatinine Estim Creat Clear Calc Est GFR (MDRD) Af Amer Est GFR (MDRD) Non-Af BUN/Creatinine Ratio Glucose Calcium Hep Bs Antigen Hep Bs Antibody Hep B Core Total Ab POC Glucose 416 H 313 H 02/07/20 02/07/20 05:37 06:41 WBC RBC Hgb Hct MCV MCH MCHC RDW Std Deviation RDW Coeff of Janel Plt Count MPV Immature Gran % (Auto) Neut % (Auto) Lymph % (Auto) [place] % (Auto) Eos % (Auto) Baso % (Auto) Absolute Neuts (auto) Absolute Lymphs (auto) Nucleated RBC % Differential Comment Reactive Lymphocytes Specimen Type Sample Site pH Bicarbonate Actual POC Total CO2 Base Excess O2 Saturation O2 % ABG pCO2 ABG pO2 Price Test Respiration Rate O2 Delivery Device EPAP IPAP Blood Gas Notified Whom Blood Gas Notified Time Sodium 135 L Potassium 3.7 Chloride 98 Carbon Dioxide 29.0 Anion Gap 8 BUN 63 H Creatinine 2.65 H Estim Creat Clear Calc 22.58 Est GFR (MDRD) Af Amer 30 L Est GFR (MDRD) Non-Af 25 L BUN/Creatinine Ratio 23.8 H Glucose 307 H Calcium 7.5 L Hep Bs Antigen Hep Bs Antibody Hep B Core Total Ab POC Glucose 336 H Microbiology 02/05/20 11:55 Stool Stool Occult Blood (LEVI) - Final 02/03/20 11:41 Blood Culture (Wb) - No Site/Description Given Blood Culture - Preliminary No growth in 48 hours. 02/03/20 11:35 Blood Culture (Wb) - Anticubital Right Blood Culture - Preliminary No growth in 48 hours. Clinical Impression(s) from Imaging Studies Chest X-Ray 02/03/20 11:43 IMPRESSION: Findings in keeping with CHF superimposed on chronic basilar scarring with small bilateral effusions. Electronically Signed: Fabricio Shah, at 12:39 EDT , Service support , Chest X-Ray 02/05/20 17:22 IMPRESSION: 1. Right jugular hemodialysis catheter. No pneumothorax. 2. Worsening CHF. Electronically Signed: Dami Levy DO at 17:34 EDT Tel [phone], Service support , Current Medications Acetaminophen (Tylenol) 650 mg PO Q6H PRN PRN PRN Reason: Pain Score 1-10/10 Albuterol Sulfate (Ventolin Aerosols) 2.5 mg INHALATION Q2H PRN PRN PRN Reason: SOB/Wheezing Last Admin: 02/05/20 00:26 Dose: 2.5 mg Documented by: Albuterol/Ipratropium (Duoneb) 3 ml INHALATION Q4H.RT KELIN Last Admin: 02/07/20 07:00 Dose: 3 ml Documented by: Atorvastatin Calcium (Lipitor) 80 mg PO QHS KELIN Last Admin: 02/06/20 21:35 Dose: 80 mg Documented by: Benzonatate (Tessalon Perle) 200 mg PO TID PRN PRN PRN Reason: cough Last Admin: 02/06/20 21:35 Dose: 200 mg Documented by: Brimonidine Tartrate (Brimonidine 0.2% 5ml Bottle) 1 drop LEFT EYE BID [facility] Last Admin: 02/06/20 21:35 Dose: 1 drop Documented by: Buspirone HCl (Buspar) 5 mg PO TID PRN PRN PRN Reason: ANXIETY Last Admin: 02/06/20 14:38 Dose: 5 mg Documented by: Dextrose (D50w Syringe) 0 gm IV X1 PRN; Protocol PRN Reason: Hypoglycemia Ergocalciferol (Vitamin D) 50,000 unit PO Luna@1000 KELIN Furosemide (Lasix) 80 mg IV Q8 [facility] Last Admin: 02/07/20 06:46 Dose: 80 mg Documented by: Glucagon () 1 mg IM .X1 PRN PRN Reason: Hypoglycemia Guaifenesin (Mucinex) 1,200 mg PO BID [facility] Last Admin: 02/06/20 21:35 Dose: 1,200 mg Documented by: Hydralazine HCl (Apresoline) 25 mg PO TID [facility] Last Admin: 02/07/20 06:46 Dose: 25 mg Documented by: Sodium Chloride () 1,000 mls @ 15 mls/hr IV .Q48H [facility] Last Infusion: 02/06/20 02:00 Dose: 0 mls/hr Documented by: Insulin Glargine (Lantus (Bkc)) 15 units SC BID [facility] Last Admin: 02/06/20 21:36 Dose: 15 u Documented by: Insulin Human Lispro (Humalog Kwikpen (Bkc)) 0 unit SC ACHS [facility]; Protocol Last Admin: 02/07/20 06:45 Dose: 12 units Documented by: Isosorbide Mononitrate (Imdur) 60 mg PO DAILY [facility] Last Admin: 02/06/20 14:02 Dose: 60 mg Documented by: Latanoprost (Xalatan Opthalmic) 1 drop EACH EYE QHS [facility] Last Admin: 02/06/20 21:37 Dose: 1 drop Documented by: Methylprednisolone (Solu-Medrol) 40 mg IV DAILY [facility] Last Admin: 02/06/20 09:54 Dose: 40 mg Documented by: Metoprolol Succinate (Toprol Xl (Beta Antonette)) 12.5 mg PO DAILY [facility] Last Admin: 02/06/20 14:01 Dose: 12.5 mg Documented by: Nitroglycerin (Nitrostat) 0.4 mg SUBLINGUAL Q5M PRN PRN Reason: CARDIAC/CHEST PAIN Ondansetron HCl (Zofran) 4 mg IV Q8H PRN PRN PRN Reason: NAUSEA/VOMITING Sodium Chloride () 10 - 40 ml IV UD PRN PRN Reason: SALINE FLUSH Last Admin: 02/07/20 06:48 Dose: 10 ml Documented by: Sodium Chloride ([place] Nasal Crump) 2 spray NASAL Q4H PRN PRN PRN Reason: NASAL DRYNESS Last Admin: 02/04/20 07:00 Dose: 2 sprays Documented by: Timolol Maleate (Timoptic) 1 drop EACH EYE BID [facility] Last Admin: 02/06/20 21:38 Dose: 1 drop Documented by: Zolpidem Tartrate (Ambien (Generic)) 5 mg PO QHS PRN PRN PRN Reason: INSOMNIA Last Admin: 02/06/20 21:35 Dose: 5 mg Documented by: Medical Necessity - Tobacco Use Smoking Status: Former smoker Tobacco Use: Cigarettes Assessment/Plan All Active Problems (Last Reviewed 12/30/19 @ 07:[address] Yuan Heredia MD) Acute respiratory failure (Acute) Anemia (Acute) Elevated troponin (Acute) Mitral regurgitation (Acute) Aortic stenosis (Acute) Acute blood loss anemia (Acute) History of coronary artery stent placement (Resolved 06/29/19) History of non-ST elevation myocardial infarction (NSTEMI) (Resolved 06/25/19) Acute kidney injury superimposed on chronic kidney disease (Resolved) Shortness of breath (Resolved) RECOMMENDATIONS: 1. Continue scheduled bronchodilators and steroids. 2. Continue volume optimization with hemodialysis per nephrology recommendations. 3. Wean supplemental oxygen to maintain saturations at or above 90%. 4. Encourage incentive spirometer use and mobilize patient as tolerated. 5. Perform walking oximetry study prior to consideration for discharge home. 6. Resume triple therapy inhaler regimen at discharge. 7. Tentative plans for cardiac catheterization on Sunday. IMPRESSIONS: 1. Acute on chronic hypoxemic respiratory failure Suspect this is primarily related to decompensated heart failure. The patient's respiratory status is improving in the setting of volume optimization through hemodialysis. Agree with continuing the aforementioned per nephrology recommendations. Continue scheduled bronchodilators and steroids. The patient should resume his triple therapy inhaler regimen at discharge. 2. Anemia The patient does have evidence of normocytic anemia with a hemoglobin seth of 6.9 on February 03. The patient did receive 2 units of packed red blood cells with subsequent worsening in his respiratory status. Again, this is likely secondary to his inability to tolerate volume associated with transfusion of blood products. Continue to monitor H&H daily. Plan to transfuse if hemoglobin drops below 7 g/dL. 3. Ischemic cardiomyopathy status post recent PCI/non-ST segment elevation MD Continue current medical management per cardiology recommendations. Tentative plans for cardiac catheterization early next week. 4. Chronic kidney disease Nephrology following to assist with hemodialysis needs. 5. Diabetes mellitus/hypertension/hyperlipidemia Complicates care, management, recovery and prognosis. Continue home medications as indicated. This note was generated with [employer] dictation software. It may contain incorrect words, spelling, and punctuation that were not noted in checking the note before signing. Inpatient E&M: 62680 Subs Hosp L2
--- NOTE | 2020-02-07 08:48 | PCM.PN.CARD ---
Subjectve: Patient doing much better today, status post hemodialysis yesterday with another 2.6 L removed. Patient was able to lay down flat and sleep last night without any difficulty and in fact feels better than he has in weeks. Telemetry showed normal sinus rhythm with PVCs. Objective: Vital Signs Temp Pulse Resp BP Pulse Ox 98.4 F 70 18 139/72 H 100 02/07/20 03:00 02/07/20 06:48 02/07/20 03:23 02/07/20 03:00 02/07/20 03:00 Oxygen Flow Rate (L/min) 4 Oxygen Delivery Method Nasal Cannula Weight: 169 lb 12.095 oz Body Mass Index (BMI) 25.7 Finger Stick Blood Glucose 302 Intake and Output for Last 24 Hours 02/05/20 02/06/20 02/07/20 23:59 23:59 23:59 Intake Total 326 / 426 1038.75 / 1038.75 180 / 180 Output Total 3040 / 3240 3675 / 3675 450 / 450 Balance -2714 / -2814 -2636.25 / -2636.25 -270 / -270 General: Awake, Alert, Oriented x 3 HEENT: PERRL, EOMI, Sclera Non Icteric Neck: Supple, Good ROM, No Lymph Node Enlargement Lungs: Clear to auscultation Cardiovascular: Regular Rhythm, Normal S2, No Rubs, No Gallops Murmur Murmur: Grade 2/6, Crescendo-Decrescendo Vascular: No Carotid Bruits, Normal Femoral Pulses, Normal Radial Pulses, Normal Dorsalis Pedal Pulse, Normal Posterior Tibial Pulses Abdomen: Bowel Sounds Present, Soft, Non Tender, No HSM, No Organomegaly Extremities: No Cyanosis, No Clubbing, No edema Neurological: No Focal Motor or Sensory Deficit 02/07/20 05:37: WBC 8.2, RBC 3.15 L, Hgb 8.9 L, Hct 28.0 L, MCV 88.9, MCH 28.3, MCHC 31.8 L, Plt Count 157, MPV 11.3, Immature Gran % (Auto) 0.400, Neut % (Auto) 78.1 H, Lymph % (Auto) 7.0 L, [place] % (Auto) 14.0 H, Eos % (Auto) 0.4, Baso % (Auto) 0.1, Absolute Neuts (auto) 6.4, Nucleated RBC % 0 02/07/20 05:37: Sodium 135 L, Potassium 3.7, Chloride 98, Carbon Dioxide 29.0, Anion Gap 8, BUN 63 H, Creatinine 2.65 H, Est GFR (MDRD) Af Amer 30 L, Est GFR (MDRD) Non-Af 25 L, BUN/Creatinine Ratio 23.8 H, Glucose 307 H, Calcium 7.5 L Rhythm: EKG: ECHO: Stress Test: Cardiac Cath: PCI: CT Surgery: Holter monitor: EPS: PPM: CXR: Chest CT Scan: Medical Necessity - Tobacco Use Smoking Status: Former smoker Tobacco Use: Cigarettes Assessment/Plan Interventional cardiology progress note: 1. Ischemic cardiomyopathy: It is uncertain whether the patient's ischemic cardiomyopathy has been made worse by in-stent restenosis from his previously placed stents in his LAD and circumflex in June 2019. Unfortunately to repeat his heart catheterization would put him at high risk for acute on chronic renal failure and possibly permanent renal failure requiring hemodialysis. Patient has chronically occluded right coronary artery. His most recent echocardiogram dated 02/04/2020 is as follows: Moderately dilated left ventricle. The estimated ejection fraction is 30 %. Stage 1 diastolic dysfunction. Mildly dilated right ventricle. The left atrium is mildly enlarged. Mild (1+) mitral valve insufficiency. Mild (1+) tricuspid valve insufficiency. Right ventricular systolic pressure estimated to be 64 mmHg. Severe pulmonary hypertension. Severe restriction of the aortic valve. At least moderate aortic stenosis, but may be underestimated due to poor LV function. Calculated aortic valve area (continuity equation) is 1.3 cm2. The inferior vena cava is dilated No collapse of the inferior vena cava. Small left pleural effusion. Compared to echo report from outside hospital from 07/03/2019, LV function has remained the same. There was no comment on aortic stensosi or pulmonary HTN. Posterior-Basal: Akinetic. Infero-Basal: Akinetic. Mid-Anterior : Severely Hypokinetic. In addition the patient was severely anemic, possibly as a consequence of lack of erythropoietin as his dialysis discontinued about 1 month ago. Patient underwent PRBC transfusion and feels much better. Hemoglobin currently 8.9. Patient underwent a repeat hemodialysis yesterday extracting 2.7 L, and the patient symptoms have effectively resolved. He is doing quite well and is able to lay down flat. We will proceed with left and right heart catheterization on Sunday to evaluate his LAD and left circumflex stents, as well as to establish his pulmonary pressure and aortic valve gradients.. Patient may require consideration of aortic valve replacement most likely with TAVR provided his coronary stents are patent. I believe the patient may benefit from TAVR procedure if it is discovered the patient has significant aortic stenosis contributing to his overall pulmonary hypertension. To do this, the patient would most likely require a ROMERO first and he is in no condition for that as of this writing. He does have fairly robust 2+ carotid upstroke bilaterally indicating that he most likely does not have significant aortic stenosis. 2. Renal insufficiency: Although the patient was reluctant to go back on dialysis, I believe he has made peace with this and feels much better after hemodialysis yesterday, as he was developing impending respiratory distress and may have required intubation. Patient is agreeable to going forward with hemodialysis into the future. He is already been set up for possible AV fistula with Dr. Bazzi in the future. 3. Pulmonary hypertension: Patient's echocardiogram demonstrates severe pulmonary pretension which will hopefully improve with hemodialysis and fluid removal. We will proceed with right heart catheterization on Sunday in addition to left heart catheterization re-looking at his stented arteries. 4. Hyperlipidemia: Continue statin based medications. 5. Continue baby aspirin and Plavix given his recent PCI in June 2019. 6. Thank you very much for the opportunity to participate in the cardiac care of your patient. Discussed with Dr. Perez. Recommend patient ambulate the halls today as well as in the chair to get him out of bed. Inpatient E&M: [id number] [facility] Hosp L2
[2020-02-07] MEDS: BRIMONIDINE 0.2% 5ML BOTTLE 1 DRP LEFT EYE ×2 (09:15→22:11)
[2020-02-07] MEDS: Timolol 0.5% 5ML OPTH.BTL 1 DRP EACH EYE ×2 (09:15→22:10)
--- NOTE | 2020-02-07 09:23 | PCM.PN.HOSP ---
Patient Problems: Active and Suspected Problems (Last Reviewed 12/30/19 @ 07:[address] Yuan Heredia MD) Acute respiratory failure (Acute) Anemia (Acute) Elevated troponin (Acute) Subjective: Patient seen and examined. He said he felt very well today and shortness of breath that improved markedly. He had dialysis again yesterday. He denies any fever or chills or palpitations or dizziness, chest pain, nausea vomiting or diarrhea. Review of systems otherwise negative. Labs and vitals reviewed. He has remained hemodynamically stable. He had removal of 2.2 L of fluid by dialysis yesterday. Vitals/I&O's: Vital Signs Temp Pulse Resp BP Pulse Ox 98.1 F 74 18 144/70 H 99 02/07/20 09:00 02/07/20 09:00 02/07/20 09:00 02/07/20 09:00 02/07/20 09:00 Oxygen Flow Rate (L/min) 4 Oxygen Delivery Method Nasal Cannula Weight: 169 lb 12.095 oz Body Mass Index (BMI) 25.7 Finger Stick Blood Glucose 302 Intake and Output for Last 24 Hours 02/05/20 02/06/20 02/07/20 23:59 23:59 23:59 Intake Total 326 / 426 1038.75 / 1038.75 180 / 180 Output Total 3040 / 3240 3675 / 3675 450 / 450 Balance -2714 / -2814 -2636.25 / -2636.25 -270 / -270 General: Alert, cooperative HEENT: Atraumatic, PERRLA, EOMI, Normocephalic Oral: Moist Mucosa Neck: Supple, No JVD, Negative Carotid Bruits Lungs: - - diminished breath sounds bibasally. On 4L of oxygen by nasal canula, which is his baseline Cardiovascular: Regular rate, Regular Rhythm, Normal S1, Normal S2, No murmurs Abdomen: Bowel Sounds Present, Soft, Non Tender, Non-Distended, No Hepato-splenomegaly Extremities: No clubbing, No cyanosis, No edema, Capillary Refill Less than 3 Seconds Skin: No rashes, No breakdown Musculoskeletal: No Tenderness to Palpation of Joints or Extremities, dialysis catheter in right chest Lymphatic: No Cervical, Supraclavicular, or Inguinal Adenopathy Neurological: Cranial nerves II-XII grossly intact, Neuro grossly intact, Motor Exam 5/5 strength throughout Psych/Mental Status: Normal Affect, Appropriate, Alert and oriented to time, place, person, mood and affect Microbiology Past 72 Hours 02/05/20 11:55 Stool Stool Occult Blood (LEVI) - Final 02/03/20 11:41 Blood Culture (Wb) - No Site/Description Given Blood Culture - Preliminary No growth in 48 hours. 02/03/20 11:35 Blood Culture (Wb) - Anticubital Right Blood Culture - Preliminary No growth in 48 hours. Laboratory Results 02/05/20 18:20: Hep Bs Antigen Non-Reactive 02/05/20 18:20: Hep Bs Antibody Non-Reactive 02/06/20 11:43: POC Glucose 200 H 02/06/20 13:11: POC Glucose 166 H 02/06/20 16:12: POC Glucose 416 H 02/06/20 21:29: POC Glucose 313 H 02/07/20 05:37: WBC 8.2, RBC 3.15 L, Hgb 8.9 L, Hct 28.0 L, MCV 88.9, MCH 28.3, MCHC 31.8 L, RDW Std Deviation 42.6, RDW Coeff of Janel 13.1, Plt Count 157, MPV 11.3, Immature Gran % (Auto) 0.400, Neut % (Auto) 78.1 H, Lymph % (Auto) 7.0 L, [place] % (Auto) 14.0 H, Eos % (Auto) 0.4, Baso % (Auto) 0.1, Absolute Neuts (auto) 6.4, Absolute Lymphs (auto) 0.58 L, Nucleated RBC % 0, Differential Comment SCANNED 02/07/20 05:37: Sodium 135 L, Potassium 3.7, Chloride 98, Carbon Dioxide 29.0, Anion Gap 8, BUN 63 H, Creatinine 2.65 H, Estim Creat Clear Calc 22.58, Est GFR (MDRD) Af Amer 30 L, Est GFR (MDRD) Non-Af 25 L, BUN/Creatinine Ratio 23.8 H, Glucose 307 H, Calcium 7.5 L 02/07/20 06:41: POC Glucose 336 H Diagnostic Data Chest X-Ray 02/05/20 17:22 IMPRESSION: 1. Right jugular hemodialysis catheter. No pneumothorax. 2. Worsening CHF. Electronically Signed: Dami Levy DO at 17:34 EDT Tel [phone], Service support , Current Medications Acetaminophen (Tylenol) 650 mg PO Q6H PRN PRN PRN Reason: Pain Score 1-10/10 Albuterol Sulfate (Ventolin Aerosols) 2.5 mg INHALATION Q2H PRN PRN PRN Reason: SOB/Wheezing Last Admin: 02/05/20 00:26 Dose: 2.5 mg Documented by: Albuterol/Ipratropium (Duoneb) 3 ml INHALATION Q4H.RT [facility] Last Admin: 02/07/20 07:00 Dose: 3 ml Documented by: Atorvastatin Calcium (Lipitor) 80 mg PO QHS [facility] Last Admin: 02/06/20 21:35 Dose: 80 mg Documented by: Benzonatate (Tessalon Perle) 200 mg PO TID PRN PRN PRN Reason: cough Last Admin: 02/06/20 21:35 Dose: 200 mg Documented by: Brimonidine Tartrate (Brimonidine 0.2% 5ml Bottle) 1 drop LEFT EYE BID [facility] Last Admin: 02/07/20 09:15 Dose: 1 drop Documented by: Buspirone HCl (Buspar) 5 mg PO TID PRN PRN PRN Reason: ANXIETY Last Admin: 02/06/20 14:38 Dose: 5 mg Documented by: Dextrose (D50w Syringe) 0 gm IV X1 PRN; Protocol PRN Reason: Hypoglycemia Ergocalciferol (Vitamin D) 50,000 unit PO Luna@1000 [facility] Furosemide (Lasix) 80 mg IV Q8 [facility] Last Admin: 02/07/20 06:46 Dose: 80 mg Documented by: Glucagon () 1 mg IM .X1 PRN PRN Reason: Hypoglycemia Guaifenesin (Mucinex) 1,200 mg PO BID [facility] Last Admin: 02/06/20 21:35 Dose: 1,200 mg Documented by: Hydralazine HCl (Apresoline) 25 mg PO TID [facility] Last Admin: 02/07/20 06:46 Dose: 25 mg Documented by: Sodium Chloride () 1,000 mls @ 15 mls/hr IV .Q48H [facility] Last Infusion: 02/06/20 02:00 Dose: 0 mls/hr Documented by: Insulin Glargine (Lantus (Bk)) 15 units SC BID [facility] Last Admin: 02/06/20 21:36 Dose: 15 u Documented by: Insulin Human Lispro (Humalog Kwikpen ([facility])) 0 unit SC ACHS [facility]; Protocol Last Admin: 02/07/20 06:45 Dose: 12 units Documented by: Isosorbide Mononitrate (Imdur) 60 mg PO DAILY [facility] Last Admin: 02/06/20 14:02 Dose: 60 mg Documented by: Latanoprost (Xalatan Opthalmic) 1 drop EACH EYE QHS [facility] Last Admin: 02/06/20 21:37 Dose: 1 drop Documented by: Methylprednisolone (Solu-Medrol) 40 mg IV DAILY [facility] Last Admin: 02/06/20 09:54 Dose: 40 mg Documented by: Metoprolol Succinate (Toprol Xl (Beta Antonette)) 12.5 mg PO DAILY [facility] Last Admin: 02/06/20 14:01 Dose: 12.5 mg Documented by: Nitroglycerin (Nitrostat) 0.4 mg SUBLINGUAL Q5M PRN PRN Reason: CARDIAC/CHEST PAIN Ondansetron HCl (Zofran) 4 mg IV Q8H PRN PRN PRN Reason: NAUSEA/VOMITING Sodium Chloride () 10 - 40 ml IV UD PRN PRN Reason: SALINE FLUSH Last Admin: 02/07/20 06:48 Dose: 10 ml Documented by: Sodium Chloride ([place] Nasal [place]) 2 spray NASAL Q4H PRN PRN PRN Reason: NASAL DRYNESS Last Admin: 02/04/20 07:00 Dose: 2 sprays Documented by: Timolol Maleate (Timoptic) 1 drop EACH EYE BID [facility] Last Admin: 02/07/20 09:15 Dose: 1 drop Documented by: Zolpidem Tartrate (Ambien (Generic)) 5 mg PO QHS PRN PRN PRN Reason: INSOMNIA Last Admin: 02/06/20 21:35 Dose: 5 mg Documented by: STROKE Vital Signs/Narrative: Vital Signs Temp Pulse Resp BP Pulse Ox 02/07/20 09:00 98.1 F 74 18 144/70 H 99 02/07/20 06:48 70 02/07/20 06:46 67 Medical Necessity - Tobacco Use Smoking Status: Former smoker Tobacco Use: Cigarettes Assessment/Plan All Active Problems (Last Reviewed 12/30/19 @ 07:[address] Yuan Heredia MD) Acute respiratory failure (Acute) Anemia (Acute) Elevated troponin (Acute) Mitral regurgitation (Acute) Aortic stenosis (Acute) Acute blood loss anemia (Acute) History of coronary artery stent placement (Resolved 06/29/19) History of non-ST elevation myocardial infarction (NSTEMI) (Resolved 06/25/19) Acute kidney injury superimposed on chronic kidney disease (Resolved) Shortness of breath (Resolved) 1. Acute on chronic HFrEF has had 2 sessions of dialysis, with removal of 4.2L of fluid in total 2D echo(02/03)2020: EF of 30% with stage I diastolic dysfunction and severe hypokinesis of the left ventricle with RVSP of 64 mmHg and severe diffuse aortic valve thickening and moderate aortic stenosis, and dilated atria vena cava. on IV lasix 80mg q8. monitor intake and output; fluid restriction to 1500cc daily breathing treatments with bronchodilators 2. Nonstemi Initial troponin was 0.146 but this peaked at 1.5. Cardiology on board. On aspirin and Plavix. for likely cath sunday, when his respiratory status improves 3. Acute on chronic exacerbation of COPD Influenza and RSV screen were negative. on PO solumedrol 40mg daily x 5 days now on 4L of oxygen which is his baseline 4. Acute on chronic hypoxic respiratory failure as under 1 and 2 5. Acute on chronic anemia Status post 2 units of packed red blood cells. Hemoglobin today is 8.9 Iron panel showed iron of 43 with low TIBC and elevated ferritin of 804 indicating anemia of chronic disease picture likely due to the CKD. stool for occult blood was negative. 6. CAD s/p stents had 2 stents placed in LAD and one in left circumflex at [facility] in June 2019; he had total occlusion of RCA, but was not thought to be a candidate for CABG on aspirin and plavix. 7.URSULA on CKD 4 Creatinine today down to 2.65 has had 2 sessions of dialysis 8. Type 2 diabetes mellitus on ISS. Accthuy LOAIZA. DVT prophylaxis: SCDs; Code status: full code. Inpatient E&M: 17776 Subs Hosp L3
[2020-02-07 10:06] LABS: Bedside Glucose 342 mg/dL (70-110)
[2020-02-07] MEDS: Benzonatate 100 MG Capsule 200 MG PO (11:39)
[2020-02-07] MEDS: busPIRone 5 MG Tablet PO ×2 (11:54→22:11)
[2020-02-07] MEDS: Heparin 10,000 UNITS/10 ML Vial IV (13:36)
--- NOTE | 2020-02-07 13:42 | DIALYSIS ---
hemodialysis completed x 3 hrs -2300ml off. stable t/o. report to raoul at bedside.
[2020-02-07] MEDS: Isosorbide Mononitrate 60 MG Tablet PO (13:49)
[2020-02-07] MEDS: Enoxaparin 30 MG/0.3 ML Syringe SC (13:49)
[2020-02-07] MEDS: guaiFENesin 1,200 MG Tablet 1200 MG PO ×2 (13:49→22:11)
[2020-02-07] MEDS: Metoprolol(XL)Succ 25 MG Tablet 12.5 MG PO (13:50)
[2020-02-07 14:01] LABS: Bedside Glucose 152 mg/dL (70-110)
[2020-02-07 15:10] LABS: Hepatitis B Core Ab Total Negative (Negative)
[2020-02-07 17:42] LABS: Bedside Glucose 241 mg/dL (70-110)
--- NOTE | 2020-02-07 18:46 | PCM.PN.REN ---
Patient Problems: Active and Suspected Problems (Last Reviewed 12/30/19 @ 07:[address] Yuan Heredia MD) Acute respiratory failure (Acute) Anemia (Acute) Elevated troponin (Acute) Subjective: Following for ESRD. Pt feels better overall. Less SOB. No CP. No nausea. No edema of LE. However, he is anxious during dialysis. - Physical Exam Vitals/I&O's: Vital Signs Temp Pulse Resp BP Pulse Ox 97.9 F 74 18 103/62 99 02/07/20 16:10 02/07/20 16:10 02/07/20 16:10 02/07/20 16:10 02/07/20 16:10 Oxygen Flow Rate (L/min) 4 Oxygen Delivery Method Nasal Cannula Weight: 77 kg Body Mass Index (BMI) 25.7 Finger Stick Blood Glucose 302 Intake and Output for Last 24 Hours 02/05/20 02/06/20 02/07/20 23:59 23:59 23:59 Intake Total 326 / 426 1038.75 / 1038.75 790 / 790 Output Total 3040 / 3240 3675 / 3675 3075 / 3075 Balance -2714 / -2814 -2636.25 / -2636.25 -2285 / -2285 General: Alert, Oriented x3 HEENT: Atraumatic, EOMI, Normocephalic Oral: Moist Mucosa Neck: Supple Lungs: Diminished - at bases Cardiovascular: Normal S1, Normal S2, Murmur - 2/6 systolic Abdomen: Bowel Sounds Present, Soft, Non Tender Extremities: No clubbing, No cyanosis, No edema Skin: No rashes Microbiology Past 72 Hours 02/05/20 11:55 Stool Stool Occult Blood (LEVI) - Final 02/03/20 11:41 Blood Culture (Wb) - No Site/Description Given Blood Culture - Preliminary No growth in 48 hours. 02/03/20 11:35 Blood Culture (Wb) - Anticubital Right Blood Culture - Preliminary No growth in 48 hours. Laboratory Results 02/05/20 18:20: Hep B Core Total Ab Negative 02/06/20 21:29: POC Glucose 313 H 02/07/20 05:37: WBC 8.2, RBC 3.15 L, Hgb 8.9 L, Hct 28.0 L, MCV 88.9, MCH 28.3, MCHC 31.8 L, RDW Std Deviation 42.6, RDW Coeff of Janel 13.1, Plt Count 157, MPV 11.3, Immature Gran % (Auto) 0.400, Neut % (Auto) 78.1 H, Lymph % (Auto) 7.0 L, [place] % (Auto) 14.0 H, Eos % (Auto) 0.4, Baso % (Auto) 0.1, Absolute Neuts (auto) 6.4, Absolute Lymphs (auto) 0.58 L, Nucleated RBC % 0, Differential Comment SCANNED 02/07/20 05:37: Sodium 135 L, Potassium 3.7, Chloride 98, Carbon Dioxide 29.0, Anion Gap 8, BUN 63 H, Creatinine 2.65 H, Estim Creat Clear Calc 22.58, Est GFR (MDRD) Af Amer 30 L, Est GFR (MDRD) Non-Af 25 L, BUN/Creatinine Ratio 23.8 H, Glucose 307 H, Calcium 7.5 L 02/07/20 06:41: POC Glucose 336 H 02/07/20 10:00: POC Glucose 342 H 02/07/20 13:41: POC Glucose 152 H 02/07/20 16:09: POC Glucose 241 H Current Medications Acetaminophen (Tylenol) 650 mg PO Q6H PRN PRN PRN Reason: Pain Score 1-10/10 Albuterol Sulfate (Ventolin Aerosols) 2.5 mg INHALATION Q2H PRN PRN PRN Reason: SOB/Wheezing Last Admin: 02/05/20 00:26 Dose: 2.5 mg Documented by: Albuterol/Ipratropium (Duoneb) 3 ml INHALATION Q4H.RT [facility] Last Admin: 02/07/20 14:56 Dose: 3 ml Documented by: Atorvastatin Calcium (Lipitor) 80 mg PO QHS [facility] Last Admin: 02/06/20 21:35 Dose: 80 mg Documented by: Benzonatate (Tessalon Perle) 200 mg PO TID PRN PRN PRN Reason: cough Last Admin: 02/07/20 11:39 Dose: 200 mg Documented by: Bisacodyl (Dulcolax) 5 mg PO DAILY PRN PRN Reason: Constipation Brimonidine Tartrate (Brimonidine 0.2% 5ml Bottle) 1 drop LEFT EYE BID [facility] Last Admin: 02/07/20 09:15 Dose: 1 drop Documented by: Buspirone HCl (Buspar) 5 mg PO TID PRN PRN PRN Reason: ANXIETY Last Admin: 02/07/20 11:54 Dose: 5 mg Documented by: Dextrose (D50w Syringe) 0 gm IV X1 PRN; Protocol PRN Reason: Hypoglycemia Enoxaparin Sodium (Lovenox) 30 mg SC DAILY [facility] Last Admin: 02/07/20 13:49 Dose: 30 mg Documented by: Ergocalciferol (Vitamin D) 50,000 unit PO Luna@1000 [facility] Furosemide (Lasix) 80 mg IV Q8 [facility] Last Admin: 02/07/20 13:50 Dose: 80 mg Documented by: Glucagon () 1 mg IM .X1 PRN PRN Reason: Hypoglycemia Guaifenesin (Mucinex) 1,200 mg PO BID [facility] Last Admin: 02/07/20 13:49 Dose: 1,200 mg Documented by: Hydralazine HCl (Apresoline) 25 mg PO TID [facility] Last Admin: 02/07/20 13:50 Dose: 25 mg Documented by: Sodium Chloride () 1,000 mls @ 15 mls/hr IV .Q48H [facility] Last Admin: 02/07/20 13:51 Dose: Not Given Documented by: Insulin Glargine (Lantus (Bk)) 15 units SC BID [facility] Last Admin: 02/07/20 10:01 Dose: 15 u Documented by: Insulin Human Lispro (Humalog Kwikpen (Bk)) 0 unit SC ACHS [facility]; Protocol Last Admin: 02/07/20 16:14 Dose: 6 units Documented by: Isosorbide Mononitrate (Imdur) 60 mg PO DAILY [facility] Last Admin: 02/07/20 13:49 Dose: 60 mg Documented by: Latanoprost (Xalatan Opthalmic) 1 drop EACH EYE QHS [facility] Last Admin: 02/06/20 21:37 Dose: 1 drop Documented by: Methylprednisolone (Solu-Medrol) 40 mg IV DAILY [facility] Last Admin: 02/07/20 13:49 Dose: 40 mg Documented by: Metoprolol Succinate (Toprol Xl (Beta Antonette)) 12.5 mg PO DAILY [facility] Last Admin: 02/07/20 13:50 Dose: 12.5 mg Documented by: Nitroglycerin (Nitrostat) 0.4 mg SUBLINGUAL Q5M PRN PRN Reason: CARDIAC/CHEST PAIN Ondansetron HCl (Zofran) 4 mg IV Q8H PRN PRN PRN Reason: NAUSEA/VOMITING Sodium Chloride () 10 - 40 ml IV UD PRN PRN Reason: SALINE FLUSH Last Admin: 02/07/20 13:52 Dose: 10 ml Documented by: Sodium Chloride ([place] Nasal [place]) 2 spray NASAL Q4H PRN PRN PRN Reason: NASAL DRYNESS Last Admin: 02/04/20 07:00 Dose: 2 sprays Documented by: Timolol Maleate (Timoptic) 1 drop EACH EYE BID [facility] Last Admin: 02/07/20 09:15 Dose: 1 drop Documented by: Zolpidem Tartrate (Ambien (Generic)) 5 mg PO QHS PRN PRN PRN Reason: INSOMNIA Last Admin: 02/06/20 21:35 Dose: 5 mg Documented by: Medical Necessity - Tobacco Use Smoking Status: Former smoker Tobacco Use: Cigarettes Assessment/Plan All Active Problems (Last Reviewed 12/30/19 @ 07:[address] Yuan Heredia MD) Acute respiratory failure (Acute) Anemia (Acute) Elevated troponin (Acute) Mitral regurgitation (Acute) Aortic stenosis (Acute) Acute blood loss anemia (Acute) History of coronary artery stent placement (Resolved 06/29/19) History of non-ST elevation myocardial infarction (NSTEMI) (Resolved 06/25/19) Acute kidney injury superimposed on chronic kidney disease (Resolved) Shortness of breath (Resolved) 1. End stage renal disease. On dialysis. Had his 3rd treatment today. Was anxious during HD, but I reassured him that he will now go to thrice weekly schedule and will not need HD every day. Hold dialysis tomorrow. Will plan on HD again after heart cath on 02/09/20. Should have an outpt dialysis assignment by Sunday02/09/20. 2. Anemia. Will start LAUREL with HD as outpt. 3. Ischemic cardiomyopathy, pulmonary HTN and . To get L/R heart cath on 02/09/20. Medical treatment as per cardiology. No bleeding from TDC exit site. OK to restart ASA and Plavix from nephrology standpoint. Keep O>I with dialysis.
[2020-02-07] MEDS: Latanoprost 0.005% 1 Bottle 1 DRP EACH EYE (22:10)
[2020-02-07] MEDS: Atorvastatin Calcium 80 MG Tablet PO (22:11)
[2020-02-07] MEDS: Zolpidem Tartrate 5 MG Tablet PO (22:11)
[2020-02-07 22:41] LABS: Bedside Glucose 419 mg/dL (70-110)
[2020-02-08] VITALS (18 sets, daily range): BP systolic 122–135; BP diastolic 56–80; PULSE 60–87; RESP 14–20; TEMP 36.3–37.1; O2SAT 97–100
[2020-02-08] MEDS: Ipratropium/Albuterol Sulfate 3 ML AMPUL.NEB INHALATION ×6 (03:13→23:28)
[2020-02-08 06:21] LABS: Absolute Lymphocyte Count 0.54 X10^3/uL (0.83-4.51); Absolute Neutrophil Count 6.6 X10^3/uL (2.0-7.7); Basophil# 0.01 X10^3/uL; Basophil% 0.1 % (0-1); Eosinophil# 0.04 X10^3/uL; Eosinophils% 0.5 % (0-5); Hematocrit 29.3 % (40-54); Hemoglobin 9.5 g/dL (13.0-16.5); Lymphocyte # 0.54 X10^3/ul (4.0); Lymphocyte % 6.5 % (19-41); Mean Corp Hgb Conc 32.4 g/dL (32-36); Mean Corpuscular Hgb 28.2 pg (27.0-32.0); Mean Corpuscular Volume 86.9 fL (80-94); Mean Platelet Vol. 11.9 fl (6.2-12.0); Monocyte# 1.08 X10^3/uL; Monocyte% 13.1 % (0-10); NRBC Flagged by Analyzer 0 % (0-5); Neutrophil # 6.57 X10^3/uL (2.7-7.7); Neutrophil % 79.4 % (47-70); POSITIVE DIFFERENTIAL YES; Platelet Count 142 K/mm3 (150-450); RBC Distribution Width CV 12.8 % (11.6-14.6); RBC Distribution Width SD 40.5 fl (35.1-43.9); Red Blood Count 3.37 M/mm3 (4.6-6.2); White Blood Count 8.3 K/mm3 (4.4-11.0)
[2020-02-08] MEDS: hydrALAZINE 25 MG Tablet PO ×3 (06:22→22:10)
[2020-02-08] MEDS: Insulin Lispro 100 UNIT/ML INSULN.PEN SC ×4 (06:23→22:09)
[2020-02-08 06:27] LABS: Differential Indicated SCAN CRITERIA MET
[2020-02-08] MEDS: Furosemide 100 MG/10 ML Vial 80 MG IV ×2 (06:31→15:29)
[2020-02-08] MEDS: 0.9% Saline Lock 10 ML Syringe IV ×2 (06:32→10:11)
--- NOTE | 2020-02-08 06:34 | NURSING ---
nurse bladder scanned patient for 700cc, patient stated wanted to try to void in bathroom, voided 350cc, and was incont on way to bathroom. will continue to monitor.
[2020-02-08 06:56] LABS: Anion Gap 9 (5-15); BUN 56 mg/dL (7-18); BUN/Creat Ratio 23.2 RATIO (10-20); Chloride 98 mmol/L (98-107); Creatinine, Serum 2.41 mg/dL (0.70-1.30); EST Glomerular Filtration Rate 28 mL/min (>60); Est Glom Filt Rate - Afr Amer 34 mL/min (>60); Estimated Creatinine Clearance 24.83 ml/min; Glucose 266 mg/dL (74-106); Potassium 3.7 mmol/L (3.5-5.1); Sodium Level 133 mmol/L (136-145)
[2020-02-08 07:06] LABS: Bedside Glucose 249 mg/dL (70-110)
--- NOTE | 2020-02-08 07:08 | PN_ITS ---
Patient Problems: Active and Suspected Problems (Last Reviewed 12/30/19 @ 07:[address] Yuan Heredia MD) Acute respiratory failure (Acute) Anemia (Acute) Elevated troponin (Acute) Subjective: The patient was seen and examined at the bedside this morning. Events from the last 24 hours have been reviewed. The patient is currently afebrile, hemodynamically stable and maintaining appropriate oxygen saturations on 4 L/min via nasal cannula. The patient once again tolerated dialysis yesterday with 2.3 L of fluid removed. He does report significant improvement in his overall respiratory status since undergoing hemodialysis. There are tentative plans for cardiac catheterization tomorrow. Objective: The patient's most recent lab work, culture data and imaging studies have all been personally reviewed. 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 - Physical Exam Vitals/I&O's: Vital Signs Temp Pulse Resp BP Pulse Ox 97.4 F L 65 18 133/80 H 99 02/08/20 04:20 02/08/20 06:22 02/08/20 04:20 02/08/20 06:22 02/08/20 04:20 Oxygen Flow Rate (L/min) 4 Oxygen Delivery Method Nasal Cannula Weight: 156 lb 15.506 oz Body Mass Index (BMI) 25.7 Finger Stick Blood Glucose 302 Intake and Output for Last 24 Hours 02/06/20 02/07/20 02/08/20 23:59 23:59 23:59 Intake Total 1038.75 / 1038.75 790 / 910 220 / 220 Output Total 3675 / 3675 3075 / 3175 450 / 450 Balance -2636.25 / -2636.25 -2285 / -2265 -230 / -230 General: Alert, Cooperative, No apparent distress, - - Sitting in bedside recliner. HEENT: Atraumatic, PERRLA, Normocephalic Oral: No Gingival or Mucosal Lesions/ Ulcerations Neck: Supple, No Nodes, Trachea Midline Lungs: No rhonchi, No wheeze, No rales, Diminished Cardiovascular: Regular rate, Regular Rhythm, Normal S1, Normal S2, Murmur Abdomen: Bowel Sounds Present, Soft, Non Tender Extremities: No clubbing, No cyanosis, No edema Skin: No breakdown Musculoskeletal: No Tenderness to Palpation of Joints or Extremities Lymphatic: No Cervical, Supraclavicular, or Inguinal Adenopathy Neurological: Cranial nerves II-XII grossly intact, Neuro grossly intact Psych/Mental Status: Normal Affect, Appropriate Labs (Last 48 Hours) 02/05/20 02/05/20 02/05/20 18:20 18:20 18:20 WBC RBC Hgb Hct MCV MCH MCHC RDW Std Deviation RDW Coeff of Janel Plt Count MPV Immature Gran % (Auto) Neut % (Auto) Lymph % (Auto) [place] % (Auto) Eos % (Auto) Baso % (Auto) Absolute Neuts (auto) Absolute Lymphs (auto) Nucleated RBC % Differential Comment Sodium Potassium Chloride Carbon Dioxide Anion Gap BUN Creatinine Estim Creat Clear Calc Est GFR (MDRD) Af Amer Est GFR (MDRD) Non-Af BUN/Creatinine Ratio Glucose Calcium Phosphorus Hep Bs Antigen Non-Reactive Hep Bs Antibody Non-Reactive Hep B Core Total Ab Negative POC Glucose 02/06/20 02/06/20 02/06/20 11:43 13:11 16:12 WBC RBC Hgb Hct MCV MCH MCHC RDW Std Deviation RDW Coeff of Janel Plt Count MPV Immature Gran % (Auto) Neut % (Auto) Lymph % (Auto) [place] % (Auto) Eos % (Auto) Baso % (Auto) Absolute Neuts (auto) Absolute Lymphs (auto) Nucleated RBC % Differential Comment Sodium Potassium Chloride Carbon Dioxide Anion Gap BUN Creatinine Estim Creat Clear Calc Est GFR (MDRD) Af Amer Est GFR (MDRD) Non-Af BUN/Creatinine Ratio Glucose Calcium Phosphorus Hep Bs Antigen Hep Bs Antibody Hep B Core Total Ab POC Glucose 200 H 166 H 416 H 02/06/20 02/07/20 02/07/20 21:29 05:37 05:37 WBC 8.2 RBC 3.15 L Hgb 8.9 L Hct 28.0 L MCV 88.9 MCH 28.3 MCHC 31.8 L RDW Std Deviation 42.6 RDW Coeff of Janel 13.1 Plt Count 157 MPV 11.3 Immature Gran % (Auto) 0.400 Neut % (Auto) 78.1 H Lymph % (Auto) 7.0 L [place] % (Auto) 14.0 H Eos % (Auto) 0.4 Baso % (Auto) 0.1 Absolute Neuts (auto) 6.4 Absolute Lymphs (auto) 0.58 L Nucleated RBC % 0 Differential Comment SCANNED Sodium 135 L Potassium 3.7 Chloride 98 Carbon Dioxide 29.0 Anion Gap 8 BUN 63 H Creatinine 2.65 H Estim Creat Clear Calc 22.58 Est GFR (MDRD) Af Amer 30 L Est GFR (MDRD) Non-Af 25 L BUN/Creatinine Ratio 23.8 H Glucose 307 H Calcium 7.5 L Phosphorus Hep Bs Antigen Hep Bs Antibody Hep B Core Total Ab POC Glucose 313 H 02/07/20 02/07/20 02/07/20 06:41 10:00 13:41 WBC RBC Hgb Hct MCV MCH MCHC RDW Std Deviation RDW Coeff of Janel Plt Count MPV Immature Gran % (Auto) Neut % (Auto) Lymph % (Auto) [place] % (Auto) Eos % (Auto) Baso % (Auto) Absolute Neuts (auto) Absolute Lymphs (auto) Nucleated RBC % Differential Comment Sodium Potassium Chloride Carbon Dioxide Anion Gap BUN Creatinine Estim Creat Clear Calc Est GFR (MDRD) Af Amer Est GFR (MDRD) Non-Af BUN/Creatinine Ratio Glucose Calcium Phosphorus Hep Bs Antigen Hep Bs Antibody Hep B Core Total Ab POC Glucose 336 H 342 H 152 H 02/07/20 02/07/20 02/08/20 16:09 22:08 05:34 WBC 8.3 RBC 3.37 L Hgb 9.5 L Hct 29.3 L MCV 86.9 MCH 28.2 MCHC 32.4 RDW Std Deviation 40.5 RDW Coeff of Janel 12.8 Plt Count 142 L MPV 11.9 Immature Gran % (Auto) 0.400 Neut % (Auto) 79.4 H Lymph % (Auto) 6.5 L [place] % (Auto) 13.1 H Eos % (Auto) 0.5 Baso % (Auto) 0.1 Absolute Neuts (auto) 6.6 Absolute Lymphs (auto) 0.54 L Nucleated RBC % 0 Differential Comment Sodium Potassium Chloride Carbon Dioxide Anion Gap BUN Creatinine Estim Creat Clear Calc Est GFR (MDRD) Af Amer Est GFR (MDRD) Non-Af BUN/Creatinine Ratio Glucose Calcium Phosphorus Hep Bs Antigen Hep Bs Antibody Hep B Core Total Ab POC Glucose 241 H 419 H 02/08/20 02/08/20 02/08/20 05:34 05:34 06:19 WBC RBC Hgb Hct MCV MCH MCHC RDW Std Deviation RDW Coeff of Janel Plt Count MPV Immature Gran % (Auto) Neut % (Auto) Lymph % (Auto) [place] % (Auto) Eos % (Auto) Baso % (Auto) Absolute Neuts (auto) Absolute Lymphs (auto) Nucleated RBC % Differential Comment Sodium 133 L Potassium 3.7 Chloride 98 Carbon Dioxide 26.0 Anion Gap 9 BUN 56 H Creatinine 2.41 H Estim Creat Clear Calc 24.83 Est GFR (MDRD) Af Amer 34 L Est GFR (MDRD) Non-Af 28 L BUN/Creatinine Ratio 23.2 H Glucose 266 H Calcium 8.0 L Phosphorus Pending Hep Bs Antigen Hep Bs Antibody Hep B Core Total Ab POC Glucose 249 H Clinical Impression(s) from Imaging Studies Chest X-Ray 02/03/20 11:43 IMPRESSION: Findings in keeping with CHF superimposed on chronic basilar scarring with small bilateral effusions. Electronically Signed: Fabricio Shah, at 12:39 EDT , Service support , Chest X-Ray 02/05/20 17:22 IMPRESSION: 1. Right jugular hemodialysis catheter. No pneumothorax. 2. Worsening CHF. Electronically Signed: Dami Levy DO at 17:34 EDT Tel [phone], Service support , Current Medications Acetaminophen (Tylenol) 650 mg PO Q6H PRN PRN PRN Reason: Pain Score 1-10/10 Albuterol Sulfate (Ventolin Aerosols) 2.5 mg INHALATION Q2H PRN PRN PRN Reason: SOB/Wheezing Last Admin: 02/05/20 00:26 Dose: 2.5 mg Documented by: Albuterol/Ipratropium (Duoneb) 3 ml INHALATION Q4H.RT [facility] Last Admin: 02/08/20 06:52 Dose: 3 ml Documented by: Atorvastatin Calcium (Lipitor) 80 mg PO QHS [facility] Last Admin: 02/07/20 22:11 Dose: 80 mg Documented by: Benzonatate (Tessalon Perle) 200 mg PO TID PRN PRN PRN Reason: cough Last Admin: 02/07/20 11:39 Dose: 200 mg Documented by: Bisacodyl (Dulcolax) 5 mg PO DAILY PRN PRN Reason: Constipation Brimonidine Tartrate (Brimonidine 0.2% 5ml Bottle) 1 drop LEFT EYE BID [facility] Last Admin: 02/07/20 22:11 Dose: 1 drop Documented by: Buspirone HCl (Buspar) 5 mg PO TID PRN PRN PRN Reason: ANXIETY Last Admin: 02/07/20 22:11 Dose: 5 mg Documented by: Dextrose (D50w Syringe) 0 gm IV X1 PRN; Protocol PRN Reason: Hypoglycemia Enoxaparin Sodium (Lovenox) 30 mg SC DAILY [facility] Last Admin: 02/07/20 13:49 Dose: 30 mg Documented by: Ergocalciferol (Vitamin D) 50,000 unit PO Luna@1000 [facility] Furosemide (Lasix) 80 mg IV Q8 [facility] Last Admin: 02/08/20 06:31 Dose: 80 mg Documented by: Glucagon () 1 mg IM .X1 PRN PRN Reason: Hypoglycemia Guaifenesin (Mucinex) 1,200 mg PO BID [facility] Last Admin: 02/07/20 22:11 Dose: 1,200 mg Documented by: Hydralazine HCl (Apresoline) 25 mg PO TID [facility] Last Admin: 02/08/20 06:22 Dose: 25 mg Documented by: Sodium Chloride () 1,000 mls @ 15 mls/hr IV .Q48H [facility] Last Admin: 02/07/20 13:51 Dose: Not Given Documented by: Insulin Glargine (Lantus ([facility])) 15 units SC BID [facility] Last Admin: 02/07/20 22:10 Dose: 15 u Documented by: Insulin Human Lispro (Humalog Kwikpen (Bk)) 0 unit SC ACHS [facility]; Protocol Last Admin: 02/08/20 06:23 Dose: 6 units Documented by: Isosorbide Mononitrate (Imdur) 60 mg PO DAILY [facility] Last Admin: 02/07/20 13:49 Dose: 60 mg Documented by: Latanoprost (Xalatan Opthalmic) 1 drop EACH EYE QHS [facility] Last Admin: 02/07/20 22:10 Dose: 1 drop Documented by: Methylprednisolone (Solu-Medrol) 40 mg IV DAILY [facility] Last Admin: 02/07/20 13:49 Dose: 40 mg Documented by: Metoprolol Succinate (Toprol Xl (Beta Antonette)) 12.5 mg PO DAILY [facility] Last Admin: 02/07/20 13:50 Dose: 12.5 mg Documented by: Nitroglycerin (Nitrostat) 0.4 mg SUBLINGUAL Q5M PRN PRN Reason: CARDIAC/CHEST PAIN Ondansetron HCl (Zofran) 4 mg IV Q8H PRN PRN PRN Reason: NAUSEA/VOMITING Sodium Chloride () 10 - 40 ml IV UD PRN PRN Reason: SALINE FLUSH Last Admin: 02/08/20 06:32 Dose: 10 ml Documented by: Sodium Chloride ([place] Nasal [place]) 2 spray NASAL Q4H PRN PRN PRN Reason: NASAL DRYNESS Last Admin: 02/04/20 07:00 Dose: 2 sprays Documented by: Timolol Maleate (Timoptic) 1 drop EACH EYE BID [facility] Last Admin: 02/07/20 22:10 Dose: 1 drop Documented by: Zolpidem Tartrate (Ambien (Generic)) 5 mg PO QHS PRN PRN PRN Reason: INSOMNIA Last Admin: 02/07/20 22:11 Dose: 5 mg Documented by: Medical Necessity - Tobacco Use Smoking Status: Former smoker Tobacco Use: Cigarettes Assessment/Plan All Active Problems (Last Reviewed 12/30/19 @ 07:[address] Yuan Heredia MD) Acute respiratory failure (Acute) Anemia (Acute) Elevated troponin (Acute) Mitral regurgitation (Acute) Aortic stenosis (Acute) Acute blood loss anemia (Acute) History of coronary artery stent placement (Resolved 06/29/19) History of non-ST elevation myocardial infarction (NSTEMI) (Resolved 06/25/19) Acute kidney injury superimposed on chronic kidney disease (Resolved) Shortness of breath (Resolved) RECOMMENDATIONS: 1. Continue scheduled bronchodilators and steroids. 2. Continue volume optimization with hemodialysis per nephrology recommendations. 3. Wean supplemental oxygen to maintain saturations at or above 90%. 4. Encourage incentive spirometer use and mobilize patient as tolerated. 5. Perform walking oximetry study prior to consideration for discharge home. 6. Resume triple therapy inhaler regimen at discharge. 7. Tentative plans for cardiac catheterization on Sunday. IMPRESSIONS: 1. Acute on chronic hypoxemic respiratory failure Suspect this is primarily related to decompensated heart failure. The patient's respiratory status is improving in the setting of volume optimization through hemodialysis. Agree with continuing the aforementioned per nephrology recommendations. Continue scheduled bronchodilators and steroids. The patient should resume his triple therapy inhaler regimen at discharge. 2. Anemia The patient does have evidence of normocytic anemia with a hemoglobin seth of 6 .9 on February 03. The patient did receive 2 units of packed red blood cells with subsequent worsening in his respiratory status. Again, this is likely secondary to his inability to tolerate volume associated with transfusion of blood products. Continue to monitor H&H daily. Plan to transfuse if hemoglobin drops below 7 g/dL. 3. Ischemic cardiomyopathy status post recent PCI/non-ST segment elevation DC Continue current medical management per cardiology recommendations. Tentative plans for cardiac catheterization tomorrow. 4. Chronic kidney disease Nephrology following to assist with hemodialysis needs. 5. Diabetes mellitus/hypertension/hyperlipidemia Complicates care, management, recovery and prognosis. Continue home medications as indicated. This note was generated with [employer] dictation software. It may contain incorrect words, spelling, and punctuation that were not noted in checking the note before signing. Inpatient E&M: 61898 Subs Hosp L2
[2020-02-08 09:03] LABS: Phosphorus 3.8 mg/dL (2.5-4.9)
--- NOTE | 2020-02-08 09:10 | PN_ITS ---
Patient Problems: Active and Suspected Problems (Last Reviewed 12/30/19 @ 07:[address] Yuan Heredia MD) Acute respiratory failure (Acute) Anemia (Acute) Elevated troponin (Acute) Subjective: Patient seen and examined. He had no complaints this morning and said his shortness of breath is much better. Review systems otherwise negative. Labs and vitals reviewed. He has remained hemodynamically stable. Creatinine is down to 2.41 and hemoglobin is 9.5. Vitals/I&O's: Vital Signs Temp Pulse Resp BP Pulse Ox 97.4 F L 60 16 133/80 H 100 02/08/20 04:20 02/08/20 07:07 02/08/20 06:52 02/08/20 06:22 02/08/20 06:52 Oxygen Flow Rate (L/min) 4 Oxygen Delivery Method Nasal Cannula Weight: 156 lb 15.506 oz Body Mass Index (BMI) 25.7 Finger Stick Blood Glucose 302 Intake and Output for Last 24 Hours 02/06/20 02/07/20 02/08/20 23:59 23:59 23:59 Intake Total 1038.75 / 1038.75 790 / 910 220 / 220 Output Total 3675 / 3675 3075 / 3175 450 / 450 Balance -2636.25 / -2636.25 -2285 / -2265 -230 / -230 General: Alert, cooperative HEENT: Atraumatic, PERRLA, EOMI, Normocephalic Oral: Moist Mucosa Neck: Supple, No JVD, Negative Carotid Bruits Lungs: - - diminished breath sounds bibasally. On 4L of oxygen by nasal canula, Cardiovascular: Regular rate, Regular Rhythm, Normal S1, Normal S2, No murmurs Abdomen: Bowel Sounds Present, Soft, Non Tender, Non-Distended, No Hepato- splenomegaly Extremities: No clubbing, No cyanosis, No edema, Capillary Refill Less than 3 Seconds Skin: No rashes, No breakdown Musculoskeletal: No Tenderness to Palpation of Joints or Extremities, dialysis catheter in right chest Lymphatic: No Cervical, Supraclavicular, or Inguinal Adenopathy Neurological: Cranial nerves II-XII grossly intact, Neuro grossly intact, Motor Exam 5/5 strength throughout Psych/Mental Status: Normal Affect, Appropriate, Alert and oriented to time, place, person, mood and affect Microbiology Past 72 Hours 02/05/20 11:55 Stool Stool Occult Blood (LEVI) - Final 02/03/20 11:41 Blood Culture (Wb) - No Site/Description Given Blood Culture - Preliminary No growth in 48 hours. 02/03/20 11:35 Blood Culture (Wb) - Anticubital Right Blood Culture - Preliminary No growth in 48 hours. Laboratory Results 02/05/20 18:20: Hep B Core Total Ab Negative 02/07/20 10:00: POC Glucose 342 H 02/07/20 13:41: POC Glucose 152 H 02/07/20 16:09: POC Glucose 241 H 02/07/20 22:08: POC Glucose 419 H 02/08/20 05:34: WBC 8.3, RBC 3.37 L, Hgb 9.5 L, Hct 29.3 L, MCV 86.9, MCH 28.2, MCHC 32.4, RDW Std Deviation 40.5, RDW Coeff of Janel 12.8, Plt Count 142 L, MPV 11.9, Immature Gran % (Auto) 0.400, Neut % (Auto) 79.4 H, Lymph % (Auto) 6.5 L, [place] % (Auto) 13.1 H, Eos % (Auto) 0.5, Baso % (Auto) 0.1, Absolute Neuts (auto) 6.6, Absolute Lymphs (auto) 0.54 L, Nucleated RBC % 0, Differential Comment 02/08/20 05:34: Sodium 133 L, Potassium 3.7, Chloride 98, Carbon Dioxide 26.0, Anion Gap 9, BUN 56 H, Creatinine 2.41 H, Estim Creat Clear Calc 24.83, Est GFR (MDRD) Af Amer 34 L, Est GFR (MDRD) Non-Af 28 L, BUN/Creatinine Ratio 23.2 H, Glucose 266 H, Calcium 8.0 L 02/08/20 05:34: Phosphorus 3.8 02/08/20 06:19: POC Glucose 249 H Diagnostic Data Chest X-Ray 02/05/20 17:22 IMPRESSION: 1. Right jugular hemodialysis catheter. No pneumothorax. 2. Worsening CHF. Electronically Signed: Dami Levy DO at 17:34 EDT Tel [phone], Service support , Current Medications Acetaminophen (Tylenol) 650 mg PO Q6H PRN PRN PRN Reason: Pain Score 1-10/10 Albuterol Sulfate (Ventolin Aerosols) 2.5 mg INHALATION Q2H PRN PRN PRN Reason: SOB/Wheezing Last Admin: 02/05/20 00:26 Dose: 2.5 mg Documented by: Albuterol/Ipratropium (Duoneb) 3 ml INHALATION Q4H.RT [facility] Last Admin: 02/08/20 06:52 Dose: 3 ml Documented by: Atorvastatin Calcium (Lipitor) 80 mg PO QHS [facility] Last Admin: 02/07/20 22:11 Dose: 80 mg Documented by: Benzonatate (Tessalon Perle) 200 mg PO TID PRN PRN PRN Reason: cough Last Admin: 02/07/20 11:39 Dose: 200 mg Documented by: Bisacodyl (Dulcolax) 5 mg PO DAILY PRN PRN Reason: Constipation Brimonidine Tartrate (Brimonidine 0.2% 5ml Bottle) 1 drop LEFT EYE BID [facility] Last Admin: 02/07/20 22:11 Dose: 1 drop Documented by: Buspirone HCl (Buspar) 5 mg PO TID PRN PRN PRN Reason: ANXIETY Last Admin: 02/07/20 22:11 Dose: 5 mg Documented by: Dextrose (D50w Syringe) 0 gm IV X1 PRN; Protocol PRN Reason: Hypoglycemia Enoxaparin Sodium (Lovenox) 30 mg SC DAILY [facility] Last Admin: 02/07/20 13:49 Dose: 30 mg Documented by: Ergocalciferol (Vitamin D) 50,000 unit PO Luna@1000 [facility] Furosemide (Lasix) 80 mg IV Q8 [facility] Last Admin: 02/08/20 06:31 Dose: 80 mg Documented by: Glucagon () 1 mg IM .X1 PRN PRN Reason: Hypoglycemia Guaifenesin (Mucinex) 1,200 mg PO BID [facility] Last Admin: 02/07/20 22:11 Dose: 1,200 mg Documented by: Hydralazine HCl (Apresoline) 25 mg PO TID [facility] Last Admin: 02/08/20 06:22 Dose: 25 mg Documented by: Sodium Chloride () 1,000 mls @ 15 mls/hr IV .Q48H [facility] Last Admin: 02/07/20 13:51 Dose: Not Given Documented by: Insulin Glargine (Lantus ([facility])) 15 units SC BID [facility] Last Admin: 02/07/20 22:10 Dose: 15 u Documented by: Insulin Human Lispro (Humalog Kwikpen ([facility])) 0 unit SC ACHS [facility]; Protocol Last Admin: 02/08/20 06:23 Dose: 6 units Documented by: Isosorbide Mononitrate (Imdur) 60 mg PO DAILY [facility] Last Admin: 02/07/20 13:49 Dose: 60 mg Documented by: Latanoprost (Xalatan Opthalmic) 1 drop EACH EYE QHS [facility] Last Admin: 02/07/20 22:10 Dose: 1 drop Documented by: Methylprednisolone (Solu-Medrol) 40 mg IV DAILY [facility] Last Admin: 02/07/20 13:49 Dose: 40 mg Documented by: Metoprolol Succinate (Toprol Xl (Beta Antonette)) 12.5 mg PO DAILY [facility] Last Admin: 02/07/20 13:50 Dose: 12.5 mg Documented by: Nitroglycerin (Nitrostat) 0.4 mg SUBLINGUAL Q5M PRN PRN Reason: CARDIAC/CHEST PAIN Ondansetron HCl (Zofran) 4 mg IV Q8H PRN PRN PRN Reason: NAUSEA/VOMITING Sodium Chloride () 10 - 40 ml IV UD PRN PRN Reason: SALINE FLUSH Last Admin: 02/08/20 06:32 Dose: 10 ml Documented by: Sodium Chloride ([place] Nasal [place]) 2 spray NASAL Q4H PRN PRN PRN Reason: NASAL DRYNESS Last Admin: 02/04/20 07:00 Dose: 2 sprays Documented by: Timolol Maleate (Timoptic) 1 drop EACH EYE BID [facility] Last Admin: 02/07/20 22:10 Dose: 1 drop Documented by: Zolpidem Tartrate (Ambien (Generic)) 5 mg PO QHS PRN PRN PRN Reason: INSOMNIA Last Admin: 02/07/20 22:11 Dose: 5 mg Documented by: STROKE Vital Signs/Narrative: Vital Signs Pulse Resp BP Pulse Ox 02/08/20 07:07 60 02/08/20 06:52 82 16 100 02/08/20 06:22 65 133/80 H Medical Necessity - Tobacco Use Smoking Status: Former smoker Tobacco Use: Cigarettes Assessment/Plan All Active Problems (Last Reviewed 12/30/19 @ 07:[address] Yuan Heredia MD) Acute respiratory failure (Acute) Anemia (Acute) Elevated troponin (Acute) Mitral regurgitation (Acute) Aortic stenosis (Acute) Acute blood loss anemia (Acute) History of coronary artery stent placement (Resolved 06/29/19) History of non-ST elevation myocardial infarction (NSTEMI) (Resolved 06/25/19) Acute kidney injury superimposed on chronic kidney disease (Resolved) Shortness of breath (Resolved) 1. Acute on chronic HFrEF * had a third session of dialysis yesterday, wtih removal of 2.3L of fluid. total fluid removal via dialysis is 6.5L * 2D echo(02/03)2019: EF of 30% with stage I diastolic dysfunction and severe hypokinesis of the left ventricle with RVSP of 64 mmHg and severe diffuse aort ic valve thickening and moderate aortic stenosis, and dilated inferior vena cava. * on IV lasix 80mg q8. * monitor intake and output; fluid restriction to 1500cc daily * breathing treatments with bronchodilators * * 2. Nonstemi * Initial troponin was 0.146 but this peaked at 1.5. * Cardiology on board. On aspirin and Plavix. * for left and right heart cath sunday * 3. Acute on chronic exacerbation of COPD * Influenza and RSV screen were negative. * on PO solumedrol 40mg daily x 5 days * on 4L of oxygen which is his baseline * 4. Acute on chronic hypoxic respiratory failure * as under 1 and 2 5. Acute on chronic anemia * Status post 2 units of packed red blood cells. Hemoglobin today is 9.5 * Iron panel showed iron of 43 with low TIBC and elevated ferritin of 804 indicating anemia of chronic disease picture likely due to the CKD. * stool for occult blood was negative. * 6. CAD s/p stents * had 2 stents placed in LAD and one in left circumflex at [facility] in June 2019; he had total occlusion of RCA, but was not thought to be a candidate for CABG * on aspirin and plavix. * 7.URSULA on CKD 4 * Creatinine today down to 2.41 * has had 3 sessions of dialysis * it does appear that patient is now ESRD, and will need terminal supervisor dialysis after discharge. is to follow up with Dr Bazzi after discharge for AV fistula mapping. * 8. Type 2 diabetes mellitus * on ISS. Accuchecks ACHS. * DVT prophylaxis: SCDs; Code status: full code. * Inpatient E&M: 72342 Subs Hosp L2
--- NOTE | 2020-02-08 09:11 | PCM.PN.CARD ---
Subjectve: Patient sitting in a chair this morning, continues to improve clinically, on and feels much better. This is the first day had a decent appetite. The patient did not try laying down flat last evening. Objective: Vital Signs Temp Pulse Resp BP Pulse Ox 97.4 F L 60 16 133/80 H 100 02/08/20 04:20 02/08/20 07:07 02/08/20 06:52 02/08/20 06:22 02/08/20 06:52 Oxygen Flow Rate (L/min) 4 Oxygen Delivery Method Nasal Cannula Weight: 156 lb 15.506 oz Body Mass Index (BMI) 25.7 Finger Stick Blood Glucose 302 Intake and Output for Last 24 Hours 02/06/20 02/07/20 02/08/20 23:59 23:59 23:59 Intake Total 1038.75 / 1038.75 790 / 910 220 / 220 Output Total 3675 / 3675 3075 / 3175 450 / 450 Balance -2636.25 / -2636.25 -2285 / -2265 -230 / -230 General: Awake, Alert, Oriented x 3 HEENT: PERRL, EOMI, Sclera Non Icteric Neck: Supple, Good ROM, No Lymph Node Enlargement Lungs: Clear to auscultation Cardiovascular: Irregular Rhythm, Normal S2, No Rubs, No Gallops Murmur Murmur: Grade 2/6, Crescendo-Decrescendo Vascular: No Carotid Bruits, Normal Femoral Pulses, Normal Radial Pulses, Normal Dorsalis Pedal Pulse, Normal Posterior Tibial Pulses Abdomen: Bowel Sounds Present, Soft, Non Tender, No HSM, No Organomegaly Extremities: No Cyanosis, No Clubbing, No edema Neurological: No Focal Motor or Sensory Deficit 02/08/20 05:34: WBC 8.3, RBC 3.37 L, Hgb 9.5 L, Hct 29.3 L, MCV 86.9, MCH 28.2, MCHC 32.4, Plt Count 142 L, MPV 11.9, Immature Gran % (Auto) 0.400, Neut % (Auto) 79.4 H, Lymph % (Auto) 6.5 L, [place] % (Auto) 13.1 H, Eos % (Auto) 0.5, Baso % (Auto) 0.1, Absolute Neuts (auto) 6.6, Nucleated RBC % 0 03/29/20 05:34: Sodium 133 L, Potassium 3.7, Chloride 98, Carbon Dioxide 26.0, Anion Gap 9, BUN 56 H, Creatinine 2.41 H, Est GFR (MDRD) Af Amer 34 L, Est GFR (MDRD) Non-Af 28 L, BUN/Creatinine Ratio 23.2 H, Glucose 266 H, Calcium 8.0 L 02/08/20 05:34: Phosphorus 3.8 Rhythm: EKG: ECHO: Stress Test: Cardiac Cath: PCI: CT Surgery: Holter monitor: EPS: PPM: CXR: Chest CT Scan: Medical Necessity - Tobacco Use Smoking Status: Former smoker Tobacco Use: Cigarettes Assessment/Plan Interventional cardiology progress note: 1. Ischemic cardiomyopathy: It is uncertain whether the patient's ischemic cardiomyopathy has been made worse by in-stent restenosis from his previously placed stents in his LAD and circumflex in June 2019. Unfortunately to repeat his heart catheterization would put him at high risk for acute on chronic renal failure and possibly permanent renal failure requiring hemodialysis. Patient has chronically occluded right coronary artery. His most recent echocardiogram dated 02/04/2020 is as follows: Moderately dilated left ventricle. The estimated ejection fraction is 30 %. Stage 1 diastolic dysfunction. Mildly dilated right ventricle. The left atrium is mildly enlarged. Mild (1+) mitral valve insufficiency. Mild (1+) tricuspid valve insufficiency. Right ventricular systolic pressure estimated to be 64 mmHg. Severe pulmonary hypertension. Severe restriction of the aortic valve. At least moderate aortic stenosis, but may be underestimated due to poor LV function. Calculated aortic valve area (continuity equation) is 1.3 cm2. The inferior vena cava is dilated No collapse of the inferior vena cava. Small left pleural effusion. Compared to echo report from outside hospital from 07/03/2019, LV function has remained the same. There was no comment on aortic stensosi or pulmonary HTN. Posterior-Basal: Akinetic. Infero-Basal: Akinetic. Mid-Anterior : Severely Hypokinetic. In addition the patient was severely anemic, possibly as a consequence of lack of erythropoietin as his dialysis discontinued about 1 month ago. Patient underwent PRBC transfusion and feels much better. Hemoglobin currently 9.5. Patient underwent a repeat hemodialysis 02/08/2020 extracting 2.7 L, and the patient symptoms have effectively resolved. He is doing quite well and is able to lay down flat. We will proceed with left and right heart catheterization on tomorrow morning to evaluate his LAD and left circumflex stents, as well as to establish his pulmonary pressure and aortic valve gradients.. Patient may require consideration of aortic valve replacement most likely with TAVR provided his coronary stents are patent. I believe the patient may benefit from TAVR procedure if it is discovered the patient has significant aortic stenosis contributing to his overall pulmonary hypertension. To do this, the patient would most likely require a ROMERO first and he is in no condition for that as of this writing. He does have fairly robust 2+ carotid upstroke bilaterally indicating that he most likely does not have significant aortic stenosis. 2. Renal insufficiency: Although the patient was reluctant to go back on dialysis, I believe he has made peace with this and feels much better after hemodialysis yesterday, as he was developing impending respiratory distress and may have required intubation. Patient is agreeable to going forward with hemodialysis into the future. He is already been set up for possible AV fistula with Dr. Bazzi in the future. If the patient's aortic valve is borderline, he may have difficulty perfusing his AV fistula and the dialysis machine. Patient may be a candidate for TAVR if his coronary artery stents are patent. 3. Pulmonary hypertension: Patient's echocardiogram demonstrates severe pulmonary pretension which will hopefully improve with hemodialysis and fluid removal. We will proceed with right heart catheterization on Sunday in addition to left heart catheterization re-looking at his stented arteries. He will need long-term anticoagulation therapy in addition to his aspirin and Plavix going forward to avoid pulmonary emboli. 4. Hyperlipidemia: Continue statin based medications. 5. Continue baby aspirin and Plavix given his recent PCI in June 2019. 6. Thank you very much for the opportunity to participate in the cardiac care of your patient. We will proceed with left and right heart catheterization tomorrow morning. Inpatient E&M: [id number] Subs Hosp L2
[2020-02-08] MEDS: guaiFENesin 1,200 MG Tablet 1200 MG PO ×2 (09:47→22:08)
[2020-02-08] MEDS: Isosorbide Mononitrate 60 MG Tablet PO (09:48)
[2020-02-08] MEDS: Enoxaparin 30 MG/0.3 ML Syringe SC (09:48)
[2020-02-08] MEDS: Metoprolol(XL)Succ 25 MG Tablet 12.5 MG PO (09:55)
[2020-02-08] MEDS: BRIMONIDINE 0.2% 5ML BOTTLE 1 DRP LEFT EYE ×2 (09:59→22:08)
[2020-02-08] MEDS: Timolol 0.5% 5ML OPTH.BTL 1 DRP EACH EYE (09:59)
[2020-02-08 11:40] LABS: Bedside Glucose 386 mg/dL (70-110)
[2020-02-08 17:06] LABS: Bedside Glucose 387 mg/dL (70-110)
--- NOTE | 2020-02-08 18:23 | PN.RENAL_ITS ---
Patient Problems: Active and Suspected Problems (Last Reviewed 12/30/19 @ 07:[address] Yuan Heredia MD) Acute respiratory failure (Acute) Anemia (Acute) Elevated troponin (Acute) Subjective: Following for ESRD. Pt was unable to void earlier today. Required straight cath. He denies prior LUTS. He denies SOB at rest. There is no CP, SOB or nausea. - Physical Exam Vitals/I&O's: Vital Signs Temp Pulse Resp BP Pulse Ox 98.7 F 64 14 122/56 H 99 02/08/20 15:26 02/08/20 15:29 02/08/20 15:26 02/08/20 15:29 02/08/20 15:26 Oxygen Flow Rate (L/min) 4 Oxygen Delivery Method Nasal Cannula Weight: 71.2 kg Body Mass Index (BMI) 25.7 Finger Stick Blood Glucose 302 Intake and Output for Last 24 Hours 02/06/20 02/07/20 02/08/20 23:59 23:59 23:59 Intake Total 1038.75 / 1038.75 790 / 910 780 / 780 Output Total 3675 / 3675 3075 / 3175 500 / 500 Balance -2636.25 / -2636.25 -2285 / -2265 280 / 280 General: Alert, Oriented x3, Cooperative HEENT: Atraumatic, PERRLA Oral: Moist Mucosa Neck: Supple Lungs: Diminished - at bases Cardiovascular: Normal S1, Normal S2, No murmurs Abdomen: Bowel Sounds Present, Soft, Non Tender Extremities: No edema Microbiology Past 72 Hours 02/03/20 11:35 Blood Culture (Wb) - Anticubital Right Blood Culture - Final No growth in 5 days. 02/03/20 11:41 Blood Culture (Wb) - No Site/Description Given Blood Culture - Final No growth in 5 days. Laboratory Results 02/07/20 22:08: POC Glucose 419 H 02/08/20 05:34: WBC 8.3, RBC 3.37 L, Hgb 9.5 L, Hct 29.3 L, MCV 86.9, MCH 28.2, MCHC 32.4, RDW Std Deviation 40.5, RDW Coeff of Janel 12.8, Plt Count 142 L, MPV 11.9, Immature Gran % (Auto) 0.400, Neut % (Auto) 79.4 H, Lymph % (Auto) 6.5 L, [place] % (Auto) 13.1 H, Eos % (Auto) 0.5, Baso % (Auto) 0.1, Absolute Neuts (auto) 6.6, Absolute Lymphs (auto) 0.54 L, Nucleated RBC % 0, Differential Comment 02/08/20 05:34: Sodium 133 L, Potassium 3.7, Chloride 98, Carbon Dioxide 26.0, Anion Gap 9, BUN 56 H, Creatinine 2.41 H, Estim Creat Clear Calc 24.83, Est GFR (MDRD) Af Amer 34 L, Est GFR (MDRD) Non-Af 28 L, BUN/Creatinine Ratio 23.2 H, Glucose 266 H, Calcium 8.0 L 02/08/20 05:34: Phosphorus 3.8 02/08/20 06:19: POC Glucose 249 H 02/08/20 11:12: POC Glucose 386 H 02/08/20 16:37: POC Glucose 387 H Current Medications Acetaminophen (Tylenol) 650 mg PO Q6H PRN PRN PRN Reason: Pain Score 1-10/10 Albuterol Sulfate (Ventolin Aerosols) 2.5 mg INHALATION Q2H PRN PRN PRN Reason: SOB/Wheezing Last Admin: 02/05/20 00:26 Dose: 2.5 mg Documented by: Albuterol/Ipratropium (Duoneb) 3 ml INHALATION Q4H.RT [facility] Last Admin: 02/08/20 14:59 Dose: 3 ml Documented by: Atorvastatin Calcium (Lipitor) 80 mg PO QHS [facility] Last Admin: 02/07/20 22:11 Dose: 80 mg Documented by: Benzonatate (Tessalon Perle) 200 mg PO TID PRN PRN PRN Reason: cough Last Admin: 02/07/20 11:39 Dose: 200 mg Documented by: Bisacodyl (Dulcolax) 5 mg PO DAILY PRN PRN Reason: Constipation Brimonidine Tartrate (Brimonidine 0.2% 5ml Bottle) 1 drop LEFT EYE BID [facility] Last Admin: 02/08/20 09:59 Dose: 1 drop Documented by: Buspirone HCl (Buspar) 5 mg PO TID PRN PRN PRN Reason: ANXIETY Last Admin: 03/28/20 22:11 Dose: 5 mg Documented by: Dextrose (D50w Syringe) 0 gm IV X1 PRN; Protocol PRN Reason: Hypoglycemia Diphenhydramine HCl (Benadryl) 50 mg PO X1 ONE Stop: 02/09/20 07:01 Enoxaparin Sodium (Lovenox) 30 mg SC DAILY [facility] Last Admin: 02/08/20 09:48 Dose: 30 mg Documented by: Ergocalciferol (Vitamin D) 50,000 unit PO Luna@1000 [facility] Last Admin: 02/08/20 09:47 Dose: 50,000 unit Documented by: Furosemide (Lasix) 80 mg IV Q8 [facility] Last Admin: 02/08/20 15:29 Dose: 80 mg Documented by: Glucagon () 1 mg IM .X1 PRN PRN Reason: Hypoglycemia Guaifenesin (Mucinex) 1,200 mg PO BID [facility] Last Admin: 02/08/20 09:47 Dose: 1,200 mg Documented by: Hydralazine HCl (Apresoline) 25 mg PO TID [facility] Last Admin: 02/08/20 15:29 Dose: 25 mg Documented by: Sodium Chloride () 1,000 mls @ 15 mls/hr IV .Q48H [facility] Last Admin: 02/07/20 13:51 Dose: Not Given Documented by: Sodium Chloride () 1,000 mls @ 15 mls/hr IV .Q48H [facility] Insulin Glargine (Lantus (Bkc)) 15 units SC BID [facility] Last Admin: 02/08/20 09:48 Dose: 15 u Documented by: Insulin Human Lispro (Humalog Kwikpen (Bkc)) 0 unit SC ACHS [facility]; Protocol Last Admin: 02/08/20 17:06 Dose: 14 units Documented by: Isosorbide Mononitrate (Imdur) 60 mg PO DAILY [facility] Last Admin: 02/08/20 09:48 Dose: 60 mg Documented by: Latanoprost (Xalatan Opthalmic) 1 drop EACH EYE QHS [facility] Last Admin: 02/07/20 22:10 Dose: 1 drop Documented by: Methylprednisolone (Solu-Medrol) 40 mg IV DAILY [facility] Last Admin: 02/08/20 09:50 Dose: 40 mg Documented by: Metoprolol Succinate (Toprol Xl (Beta Antonette)) 12.5 mg PO DAILY [facility] Last Admin: 02/08/20 09:55 Dose: 12.5 mg Documented by: Nitroglycerin (Nitrostat) 0.4 mg SUBLINGUAL Q5M PRN PRN Reason: CARDIAC/CHEST PAIN Ondansetron HCl (Zofran) 4 mg IV Q8H PRN PRN PRN Reason: NAUSEA/VOMITING Sodium Chloride () 10 - 40 ml IV UD PRN PRN Reason: SALINE FLUSH Last Admin: 02/08/20 10:11 Dose: 10 ml Documented by: Sodium Chloride ([place] Nasal [place]) 2 spray NASAL Q4H PRN PRN PRN Reason: NASAL DRYNESS Last Admin: 02/04/20 07:00 Dose: 2 sprays Documented by: Timolol Maleate (Timoptic) 1 drop EACH EYE BID [facility] Last Admin: 02/08/20 09:59 Dose: 1 drop Documented by: Zolpidem Tartrate (Ambien (Generic)) 5 mg PO QHS PRN PRN PRN Reason: INSOMNIA Last Admin: 02/07/20 22:11 Dose: 5 mg Documented by: Medical Necessity - Tobacco Use Smoking Status: Former smoker Tobacco Use: Cigarettes Assessment/Plan All Active Problems (Last Reviewed 12/30/19 @ 07:[address] Yuan Heredia MD) Acute respiratory failure (Acute) Anemia (Acute) Elevated troponin (Acute) Mitral regurgitation (Acute) Aortic stenosis (Acute) Acute blood loss anemia (Acute) History of coronary artery stent placement (Resolved 06/29/19) History of non-ST elevation myocardial infarction (NSTEMI) (Resolved 06/25/19) Acute kidney injury superimposed on chronic kidney disease (Resolved) Shortness of breath (Resolved) 1. End stage renal disease. On dialysis. Had his 3rd treatment on 02/07/20. Was anxious during HD, but I reassured him that he will now go to thrice weekly schedule and will not need HD every day. Hold dialysis today. Will plan on HD again after heart cath on 02/09/20. Should have an outpt dialysis assignment by Sunday02/09/20. 2. Anemia. Will start LAUREL with HD as outpt. 3. Ischemic cardiomyopathy, pulmonary HTN and . To get L/R heart cath on 02/09/20. Medical treatment as per cardiology. No bleeding from TDC exit site. OK to restart ASA and Plavix from nephrology standpoint. Keep O>I with dialysis. 4. Acute urinary retention. Pt denies prior history of BPH. Will start Flomax. Will monitor urine output and micturition. Ensure good BM.
[2020-02-08] MEDS: Zolpidem Tartrate 5 MG Tablet PO (22:08)
[2020-02-08] MEDS: busPIRone 5 MG Tablet PO (22:08)
[2020-02-08] MEDS: Latanoprost 0.005% 1 Bottle 1 DRP EACH EYE (22:08)
[2020-02-08] MEDS: Atorvastatin Calcium 80 MG Tablet PO (22:08)
[2020-02-08] MEDS: Sodium Chloride 0.65% 1 SPRAY SPRAY.BTL 2 SPRAY NASAL (22:09)
[2020-02-08] MEDS: Tamsulosin HCl 0.4 MG Capsule PO (22:11)
[2020-02-08 22:46] LABS: Bedside Glucose 409 mg/dL (70-110)
[2020-02-09] VITALS (27 sets, daily range): BP systolic 109–148; BP diastolic 58–71; PULSE 52–75; RESP 16–20; TEMP 36.4–37.1; O2SAT 94–100
[2020-02-09] MEDS: Clopidogrel Bisulfate 300 MG Tablet PO (00:15)
[2020-02-09] MEDS: Aspirin 81 MG TAB.CHEW 324 MG PO (00:16)
[2020-02-09] MEDS: Ipratropium/Albuterol Sulfate 3 ML AMPUL.NEB INHALATION ×6 (03:18→23:23)
--- NOTE | 2020-02-09 05:00 | EKG12_ITS ---
Test Reason : PRE-HEART CATH Blood Pressure : / mmHG Vent. Rate : 063 BPM Atrial Rate : 416 BPM P-R Int : 000 ms QRS Dur : 108 ms QT Int : 452 ms P-R-T Axes : 000 -46 171 degrees QTc Int : 462 ms Atrial fibrillation Left axis deviation Nonspecific ST and T wave abnormality Prolonged QT Abnormal ECG When compared with ECG of 04-FEB-2020 03:04, Previous ECG has undetermined rhythm, needs review QT has shortened Confirmed by JUAN SPAULDING, TD ([id number]), purchasing expeditor TWIN ESPINOZA ([id number]) on 02/10/2020 9:24:58 AM Referred By: Lisa Perez Confirmed By:TD MARTINEZ MD
[2020-02-09 06:13] LABS: Absolute Lymphocyte Count 0.66 X10^3/uL (0.83-4.51); Absolute Neutrophil Count 6.6 X10^3/uL (2.0-7.7); Basophil# 0.01 X10^3/uL; Basophil% 0.1 % (0-1); Eosinophil# 0.08 X10^3/uL; Hematocrit 29.3 % (40-54); Hemoglobin 9.5 g/dL (13.0-16.5); Lymphocyte # 0.66 X10^3/ul (4.0); Mean Corp Hgb Conc 32.4 g/dL (32-36); Mean Corpuscular Hgb 28.4 pg (27.0-32.0); Mean Corpuscular Volume 87.5 fL (80-94); Mean Platelet Vol. 11.8 fl (6.2-12.0); Monocyte# 0.85 X10^3/uL; Monocyte% 10.3 % (0-10); NRBC Flagged by Analyzer 0 % (0-5); Neutrophil # 6.59 X10^3/uL (2.7-7.7); Platelet Count 141 K/mm3 (150-450); RBC Distribution Width CV 12.6 % (11.6-14.6); RBC Distribution Width SD 40.1 fl (35.1-43.9); Red Blood Count 3.35 M/mm3 (4.6-6.2); White Blood Count 8.2 K/mm3 (4.4-11.0)
[2020-02-09 06:41] LABS: Anion Gap 9 (5-15); BUN 82 mg/dL (7-18); BUN/Creat Ratio 24.7 RATIO (10-20); Calcium,Total 7.7 mg/dL (8.5-10.1); Chloride 96 mmol/L (98-107); Creatinine, Serum 3.32 mg/dL (0.70-1.30); EST Glomerular Filtration Rate 19 mL/min (>60); Est Glom Filt Rate - Afr Amer 23 mL/min (>60); Estimated Creatinine Clearance 18.03 ml/min; Glucose 486 mg/dL (74-106); Potassium 3.8 mmol/L (3.5-5.1); Sodium Level 131 mmol/L (136-145)
--- NOTE | 2020-02-09 06:45 | NURSING ---
UPDATED DR HANNON ABOUT BLOOD SUGAR AND URINE RETENTION.
[2020-02-09] MEDS: hydrALAZINE 25 MG Tablet PO ×2 (07:05→22:02)
[2020-02-09] MEDS: Aspirin 81 MG TAB.CHEW PO (07:05)
[2020-02-09] MEDS: Isosorbide Mononitrate 60 MG Tablet PO (07:05)
[2020-02-09] MEDS: Sodium Chloride 0.65% 1 SPRAY SPRAY.BTL 2 SPRAY NASAL (07:06)
[2020-02-09] MEDS: Clopidogrel Bisulfate 75 MG Tablet PO (07:06)
[2020-02-09] MEDS: Metoprolol(XL)Succ 25 MG Tablet 12.5 MG PO (07:06)
[2020-02-09] MEDS: Insulin Lispro 100 UNIT/ML INSULN.PEN SC ×3 (07:07→22:06)
[2020-02-09] MEDS: 0.9% Normal Saline 1,000 ML 15 ML IV (07:07)
[2020-02-09] MEDS: DiphenhydrAMINE 25 MG Capsule 50 MG PO (07:26)
[2020-02-09] MEDS: Insulin Lispro 100 UNIT/ML INSULN.PEN 14 UNIT SC (07:45)
--- NOTE | 2020-02-09 08:25 | PCM.PN.PUL ---
Patient Problems: Active and Suspected Problems (Last Reviewed 12/30/19 @ 07:[address] Yuan Heredia MD) Acute respiratory failure (Acute) Anemia (Acute) Elevated troponin (Acute) Subjective: Patient states he feels subjectively improved compared to previous. Patient is not reporting any respiratory complaints, but has been unable to urinate overnight. Reportedly, nursing has not been able to place a catheter successfully. Patient was seen just prior to going to the [facility] for intervention. Current plans are for hemodialysis immediately following cardiac catheterization. - Physical Exam Vitals/I&O's: Vital Signs Temp Pulse Resp BP Pulse Ox 36.6 C 52 L 16 147/58 H 98 02/09/20 06:30 02/09/20 07:15 02/09/20 07:15 02/09/20 06:30 02/09/20 07:15 Oxygen Flow Rate (L/min) 4 Oxygen Delivery Method Nasal Cannula Weight: 71.5 kg Body Mass Index (BMI) 25.7 Finger Stick Blood Glucose 302 Intake and Output for Last 24 Hours 02/07/20 02/08/20 02/09/20 23:59 23:59 23:59 Intake Total 790 / 910 1500 / 1720 220 / 220 Output Total 3075 / 3175 850 / 1075 725 / 725 Balance -2285 / -2265 650 / 645 -505 / -505 General: Alert, Oriented x3, Cooperative, No apparent distress, - - No conversational dyspnea noted. HEENT: Atraumatic, PERRLA, EOMI, Normocephalic, - - No scleral icterus or injection noted Oral: Moist Mucosa, No Gingival or Mucosal Lesions/ Ulcerations Neck: Supple, No JVD, No Nodes, Trachea Midline Lungs: No rhonchi, No wheeze, No rales, Diminished Cardiovascular: Regular rate, Regular Rhythm, Normal S1, Normal S2, Murmur - Grade 2 out of 6 systolic ejection murmur at the right sternal border, No rub noted, No Gallop Abdomen: Bowel Sounds Present, Soft, Non Tender, Non-Distended Extremities: No clubbing, No cyanosis, No edema, Capillary Refill Less than 3 Seconds Skin: No rashes, No breakdown Musculoskeletal: No Tenderness to Palpation of Joints or Extremities Lymphatic: No Cervical, Supraclavicular, or Inguinal Adenopathy Neurological: Cranial nerves II-XII grossly intact, Neuro grossly intact Psych/Mental Status: Alert and oriented to time, place, person, mood and affect Microbiology Past 72 Hours 02/03/20 11:35 Blood Culture (Wb) - Anticubital Right Blood Culture - Final No growth in 5 days. 02/03/20 11:41 Blood Culture (Wb) - No Site/Description Given Blood Culture - Final No growth in 5 days. Laboratory Results 02/08/20 05:34: Phosphorus 3.8 02/08/20 11:12: POC Glucose 386 H 02/08/20 16:37: POC Glucose 387 H 02/08/20 22:01: POC Glucose 409 H 02/09/20 05:52: WBC 8.2, RBC 3.35 L, Hgb 9.5 L, Hct 29.3 L, MCV 87.5, MCH 28.4, MCHC 32.4, RDW Std Deviation 40.1, RDW Coeff of Janel 12.6, Plt Count 141 L, MPV 11.8, Immature Gran % (Auto) 0.600, Neut % (Auto) 80.0 H, Lymph % (Auto) 8.0 L, [place] % (Auto) 10.3 H, Eos % (Auto) 1.0, Baso % (Auto) 0.1, Absolute Neuts (auto) 6.6, Absolute Lymphs (auto) 0.66 L, Nucleated RBC % 0 02/09/20 05:52: Sodium 131 L, Potassium 3.8, Chloride 96 L, Carbon Dioxide 26.0, Anion Gap 9, BUN 82 H, Creatinine 3.32 H, Estim Creat Clear Calc 18.03, Est GFR (MDRD) Af Amer 23 L, Est GFR (MDRD) Non-Af 19 L, BUN/Creatinine Ratio 24.7 H, Glucose 486 H*, Calcium 7.7 L Current Medications Acetaminophen (Tylenol) 650 mg PO Q6H PRN PRN PRN Reason: Pain Score 1-10/10 Albuterol Sulfate (Ventolin Aerosols) 2.5 mg INHALATION Q2H PRN PRN PRN Reason: SOB/Wheezing Last Admin: 02/05/20 00:26 Dose: 2.5 mg Documented by: Albuterol/Ipratropium (Duoneb) 3 ml INHALATION Q4H.RT [facility] Last Admin: 02/09/20 03:18 Dose: 3 ml Documented by: Atorvastatin Calcium (Lipitor) 80 mg PO QHS [facility] Last Admin: 02/08/20 22:08 Dose: 80 mg Documented by: Benzonatate (Tessalon Perle) 200 mg PO TID PRN PRN PRN Reason: cough Last Admin: 02/07/20 11:39 Dose: 200 mg Documented by: Bisacodyl (Dulcolax) 5 mg PO DAILY PRN PRN Reason: Constipation Brimonidine Tartrate (Brimonidine 0.2% 5ml Bottle) 1 drop LEFT EYE BID [facility] Last Admin: 02/08/20 22:08 Dose: 1 drop Documented by: Buspirone HCl (Buspar) 5 mg PO TID PRN PRN PRN Reason: ANXIETY Last Admin: 02/08/20 22:08 Dose: 5 mg Documented by: Dextrose (D50w Syringe) 0 gm IV X1 PRN; Protocol PRN Reason: Hypoglycemia Enoxaparin Sodium (Lovenox) 30 mg SC DAILY [facility] Last Admin: 02/08/20 09:48 Dose: 30 mg Documented by: Ergocalciferol (Vitamin D) 50,000 unit PO Luna@1000 [facility] Last Admin: 02/08/20 09:47 Dose: 50,000 unit Documented by: Furosemide (Lasix) 80 mg IV BID [facility] Glucagon () 1 mg IM .X1 PRN PRN Reason: Hypoglycemia Guaifenesin (Mucinex) 1,200 mg PO BID [facility] Last Admin: 02/08/20 22:08 Dose: 1,200 mg Documented by: Hydralazine HCl (Apresoline) 25 mg PO TID [facility] Last Admin: 02/09/20 07:05 Dose: 25 mg Documented by: Sodium Chloride () 1,000 mls @ 15 mls/hr IV .Q48H [facility] Last Admin: 02/07/20 13:51 Dose: Not Given Documented by: Sodium Chloride () 1,000 mls @ 15 mls/hr IV .Q48H [facility] Last Admin: 02/09/20 07:07 Dose: 15 mls/hr Documented by: Insulin Glargine (Lantus (Bkc)) 15 units SC BID [facility] Last Admin: 02/08/20 22:09 Dose: 15 u Documented by: Insulin Human Lispro (Humalog [place] (Bkc)) 0 unit SC ACHS [facility]; Protocol Last Admin: 02/09/20 07:07 Dose: 16 units Documented by: Isosorbide Mononitrate (Imdur) 60 mg PO DAILY [facility] Last Admin: 02/09/20 07:05 Dose: 60 mg Documented by: Latanoprost (Xalatan Opthalmic) 1 drop EACH EYE QHS [facility] Last Admin: 02/08/20 22:08 Dose: 1 drop Documented by: Methylprednisolone (Solu-Medrol) 40 mg IV DAILY [facility] Last Admin: 02/08/20 09:50 Dose: 40 mg Documented by: Metoprolol Succinate (Toprol Xl (Beta Antonette)) 12.5 mg PO DAILY [facility] Last Admin: 02/09/20 07:06 Dose: 12.5 mg Documented by: Nitroglycerin (Nitrostat) 0.4 mg SUBLINGUAL Q5M PRN PRN Reason: CARDIAC/CHEST PAIN Ondansetron HCl (Zofran) 4 mg IV Q8H PRN PRN PRN Reason: NAUSEA/VOMITING Sodium Chloride () 10 - 40 ml IV UD PRN PRN Reason: SALINE FLUSH Last Admin: 02/08/20 10:11 Dose: 10 ml Documented by: Sodium Chloride ([place] Nasal [place]) 2 spray NASAL Q4H PRN PRN PRN Reason: NASAL DRYNESS Last Admin: 02/09/20 07:06 Dose: 2 sprays Documented by: Tamsulosin HCl (Flomax) 0.4 mg PO DAILY@1730 [facility] Last Admin: 02/08/20 22:11 Dose: 0.4 mg Documented by: Timolol Maleate (Timoptic) 1 drop EACH EYE BID [facility] Last Admin: 02/08/20 22:07 Dose: Not Given Documented by: Zolpidem Tartrate (Ambien (Generic)) 5 mg PO QHS PRN PRN PRN Reason: INSOMNIA Last Admin: 02/08/20 22:08 Dose: 5 mg Documented by: Medical Necessity - Tobacco Use Smoking Status: Former smoker Tobacco Use: Cigarettes Assessment/Plan All Active Problems (Last Reviewed 12/30/19 @ 07:[address] Yuan Heredia MD) Acute respiratory failure (Acute) Anemia (Acute) Elevated troponin (Acute) Mitral regurgitation (Acute) Aortic stenosis (Acute) Acute blood loss anemia (Acute) History of coronary artery stent placement (Resolved 06/29/19) History of non-ST elevation myocardial infarction (NSTEMI) (Resolved 06/25/19) Acute kidney injury superimposed on chronic kidney disease (Resolved) Shortness of breath (Resolved) RECOMMENDATIONS: 1. Continue scheduled bronchodilators. Likely okay to transition to prednisone 30 mg tomorrow 2. Continue volume optimization with hemodialysis per nephrology recommendations. 3. Wean supplemental oxygen to maintain saturations at or above 90%. 4. Encourage incentive spirometer use and mobilize patient as tolerated. 5. Perform walking oximetry study prior to consideration for discharge home. 6. Resume triple therapy inhaler regimen at discharge. 7. Hemodialysis following cardiac catheterization 8. Supplemental insulin at this time IMPRESSIONS: 1. Acute on chronic hypoxemic respiratory failure Suspect this is primarily related to decompensated heart failure. The patient's respiratory status is improving in the setting of volume optimization through hemodialysis. Agree with continuing the aforementioned per nephrology recommendations. Continue scheduled bronchodilators and steroids. The patient should resume his triple therapy inhaler regimen at discharge. 2. Anemia The patient does have evidence of normocytic anemia with a hemoglobin seth of 6.9 on February 03. The patient did receive 2 units of packed red blood cells with subsequent worsening in his respiratory status. Again, this is likely secondary to his inability to tolerate volume associated with transfusion of blood products. Continue to monitor H&H daily. Plan to transfuse if hemoglobin drops below 7 g/dL. No indication for transfusion at this time. 3. Ischemic cardiomyopathy status post recent PCI/non-ST segment elevation [place] Continue current medical management per cardiology recommendations. Tentative plans for cardiac catheterization today. 4. Chronic kidney disease Nephrology following to assist with hemodialysis needs. 5. Diabetes mellitus/hypertension/hyperlipidemia Complicates care, management, recovery and prognosis. Continue home medications as indicated. Significant hyperglycemia noted on morning labs. This is trended up for several days. Anticipate transition to prednisone tomorrow. Give additional Lasix for now. Inpatient E&M: [id number] [facility] Hosp L2
[2020-02-09 08:51] LABS: Bedside Glucose 427 mg/dL (70-110)
[2020-02-09 08:55] LABS: Base Excess -5 mmol/L (-2 to +2); Bicarbonate 21.2 mmol/L (22-26); Blood Gas Specimen Type ART; PO2 61 mmHG (75-100); SO2 89 % (95-99); Total Carbon Dioxide 22 mmol/L; pH 7.33 (7.35-7.45)
--- NOTE | 2020-02-09 09:02 | CL.D_ITS ---
Patient Name: DIVYA HUSAIN Study Date: 02/09/2020 Performing: Basilio Mcqueen MD Ht: 68.11 inches 173 cm : 1945 Wt: 158.73 lbs 72 kg Age: 75 Gender: male BSA: 1.85 PROCEDURE(S) PERFORMED CV76-KGK/LHC/COR/LV DC11-AO ROOT ANGIO WITH HEART CATH CLINICAL PROFILE AND INDICATIONS Patient presents with NSTEMI for urgent cardiac cath Indications: Stable Known CAD, Valvular Disease, Cardiac Arrythmia, LV Dysfunction, Pre-Operative Evaluation Heart Failure: NYHA Class: 2, Heart Failure Type: Systolic, Newly Diagnosed: No Stress/Imaging Stress/Image Study Performed: No Angina Classification Anginal Classification w/in 2 Weeks: Anginal Equivalent Dyspnea CAD Presentations: Non-STEMI. Symptom onset Date/Time: 02/03/2020 Time Not Available Unstable quan na. Comorbidities/Risk Factors: Hypertension Dyslipidemia Prior PR Prior CHF Prior PCI Currently On Dialysis Peripheral Arterial Disease Chronic Lung Disease Diabetes Mellitus: Diabetes Therapy: Insulin CONCLUSIONS Single vessel CAD of the RCA LVEF: by LV gram 15-20 % Depressed Left Ventricular systolic function - Severe Normal Left Ventricular End Diastolic Pressure Widely patent LAD stents Widely patent LCX stents. Non obstructive coronary arteries Aortic Valve Stenosis- Mild to moderate, mean gradient on pullback-22mm Hg. Estimated TELLY=1.92 cm2. The patient has pulmonary hypertension which is mild. Adequate L to R collaterals. RECOMMENDATIONS Management as per referring [employer] Director Manual sheath removal. Pt may proceed with AV fistula; do not believe pt requires AVR at this time. Pt may have low output aortic stenosis. No evidence of aortic insufficiency. Can consider amiodarone assisted DCCV after f istula has been placed and mature. D/w Dr Avila. DESCRIPTION OF PROCEDURE The patient arrived to the procedure lab. The risks and benefits of the procedure as well as a full d escription of our services here and current unavailability of surgical backup were fully explained to the patient and/or their significant other prior to the catheterization. The Timeout was completed, verifying the correct patient and procedure. The patient's procedural site was prepped and draped in the usual fashion. Local anesthetic was given subcutaneously to right groin region with Lidocaine 2%. Using a modified Seldinger technique, arterial access was obtained via the right femoral artery, a 4 Fr sheath was inserted Venous access was obtained via the right femoral vein, a 7Fr sheath was insert ed. A 7Fr thermal dilution catheter was inserted and right heart pressures were recorded, it was then advanced to PA position for cardiac outputs. Thermal dilution cardiac outputs were then recorded. O2 saturations were then obtained. Simultaneous pressures were then recorded. The Thermal dilution catheter was then removed. Left Ventriculography was performed in SHEA projection using a 4 F r. Pigtail catheter. LV to AO pullback pressures were then recorded. Left Coronary Artery selective a ngiography was performed in multiple views using a 4 Fr. JL5 catheter. Right Coronary Artery selectiv e angiography was then performed in multiple views using a 4 Fr. 3DRC catheter. Ascending (root) aort a selective angiography was then performed in single view. Ascending (root) aorta selective angiograp hy was then performed in single view.The arterial sheath was pulled and manual compression applied un til hemostasis is achieved.. The venous sheath was then pulled and manual compression applied until h emostasis achieved CORONARY ANGIOGRAPHY DOMINANCE: Right Dominant LEFT HEART ASSESSMENT Left Ventricular Ejection Fraction: by LV Gram 15-20 % Inferior Mid Akinesis. Anterior Hypokinesis - Severe Depressed Left Ventricular systolic function Normal Left Ventricular End Diastolic Pressure RIGHT HEART ASSESSMENT Thermal CO: 5.25 Thermal CI: 2.84 Antoinette CO: 6.57 Antoinette CI: 3.55 PW: /24 13 PA: 30/6 18 RV: 33/-1 4 RA: /6 3 PVR: 76 SVR: 1036 Aortic Valve Area: 1.92 Aortic Valve Index: 1.04 Aortic Valve Mean Gradient: 21.8 Right Heart pressures - elevated Pulmonary Hypertension Mild LEFT MAIN: Non-obstructive LEFT ANTERIOR DESCENDING ARTERY: PROX LAD: Previously placed stent is patent DISTAL LAD: Moderate luminal irregularities up to 50% CIRCUMFLEX ARTERY: MID CIRC: Previously placed stent is patent RIGHT CORONARY ARTERY: MID RCA: is occluded COLLATERAL FLOW: Collateral flow from Left to Right VALVE FINDINGS: Aortic Valve Stenosis - mild to moderate No Aortic Valve insufficiency AORTIC ROOT: Angiographically normal COMPLICATIONS No Complications PROCEDURE MEDICATIONS Oxygen: 4 L/min via nasal cannula SUMMARY OF HEMODYNAMIC DATA Time AIR REST ECG 08:15:25 RA /6 (3) SV 08:23:08 RV 33/-1, 4 08:23:23 PW /24 (13) PV 08:24:17 PA 30/6 (18) PA 08:24:30 LV 140/-9, 8 08:29:10 PA 38/9 (23) 08:29:10 LV 142/-7, 10 08:29:37 LV 144/-7, 10 08:29:43 LV 139/-8, 11 08:30:12 PW /24 (13) 08:30:12 LV 144/-5, 11 08:30:18 PW /21 (14) 08:30:18 LV 150/-4, 12 08:30:44 RV 44/0, 7 08:30:44 LV 145/-6, 13 08:30:51 RV 43/0, 7 08:30:51 LV 147/-7, 11 08:31:07 RV 41/0, 5 08:31:07 LV 138/-5, 12 08:32:15 LV 142/-5, 12 08:32:21 LVp 142/-7, 9 08:32:25 AOp 132/46 (74) 08:32:30 AO 97/50 (71) SA 08:34:13 08:59:14 Valve Area (c P-P/ms Time AIR REST Aortic 1.92 21.8 mn/264 ms10.0 pk/264 ms 08:32:25 Type SV CO (l/m) CI (l/m/ HR Time AIR REST Thermal 92.10 5.25 2.84 57 08:02:58 Antoinette 115.30 6.57 3.55 57 08:02:58 Label % O2 Pres/Loc Time AIR REST PA 60 PA 08:44:17 AO 89 PV 08:44:23 Signed By Basilio Mcqueen MD On 02/09/2020 09:01:00 Basilio cMqueen MD
[2020-02-09] MEDS: guaiFENesin 1,200 MG Tablet 1200 MG PO ×2 (09:21→22:03)
[2020-02-09] MEDS: Timolol 0.5% 5ML OPTH.BTL 1 DRP EACH EYE ×2 (09:22→22:03)
[2020-02-09] MEDS: BRIMONIDINE 0.2% 5ML BOTTLE 1 DRP LEFT EYE ×2 (09:22→22:03)
[2020-02-09] MEDS: 0.9% Saline Lock 10 ML Syringe IV (09:22)
[2020-02-09 09:25] LABS: Bedside Glucose 480 mg/dL (70-110)
[2020-02-09] MEDS: Furosemide 100 MG/10 ML Vial 80 MG IV ×2 (09:25→22:02)
[2020-02-09 10:16] LABS: Bedside Glucose 332 mg/dL (70-110)
[2020-02-09] MEDS: oxyCODONE 5 MG Tablet PO (10:35)
--- NOTE | 2020-02-09 10:41 | DCINST_ITS ---
May shower in (days): 1 Lifting Restrictions: 10 pounds Call your doctor if your incision/area has: Continuous Slow Oozing, Sudden Increased Bleeding, Increased Pain/ Swelling, Increased Redness, Foul Smelling Discharge Call your doctor if you observe: Fever of 101 or Higher Suture Line Care: Avoid Pulling/Pushing, Avoid Pinching/Bending Additional Dressing/Incision Instructions:: Change or remove dressing in 4 days. Leave steri-strips in place for 1 week. Allergies/Adverse Reactions: Allergies budesonide Allergy (Severe, Verified 12/29/19 13:20) Other - can't breathe amoxicillin [From Augmentin] Allergy (Unknown, Verified 12/29/19 13:20) Unknown clavulanic acid [From Augmentin] Allergy (Unknown, Verified 12/29/19 13:20) Unknown Sulfa (Sulfonamide Antibiotics) Allergy (Unknown, Verified 12/29/19 13:20) Unknown Medications to take at Discharge latanoprost 0.005 % eye drops 1 drp EACH EYE DAILY ml 11/15/17 albuterol sulfate 90 mcg/actuation aerosol inhaler 2 puff INHALATION Q6H PRN PRN #18 g 08/05/19 aspirin 81 mg tablet,delayed release 81 mg PO DAILY #90 tab 08/06/19 atorvastatin 80 mg tablet 80 mg PO QHS #90 tab 08/06/19 clopidogrel 75 mg tablet 75 mg PO DAILY #90 tab 08/06/19 hydralazine 25 mg tablet 25 mg PO TID #270 tab 08/06/19 isosorbide mononitrate 30 mg tablet,extended release 24 hr 30 mg PO DAILY #90 tab 08/06/19 metoprolol succinate 25 mg tablet,extended release 24 hr 12.5 mg PO DAILY #60 tab 08/06/19 insulin lispro 100 unit/mL subcutaneous solution See Rx Instructions SC DAILY ml 09/12/19 brimonidine 0.2 % eye drops 1 drp LEFT EYE BID ml 10/01/19 timolol 0.5 % eye drops 1 drp EACH EYE DAILY ml 10/01/19 blood sugar diagnostic See Rx Instructions .ROUTE .MEDSUPPLY #150 ea 11/24/19 fluticasone furoate 200 mcg-vilanterol 25 mcg/dose inhalation powder 1 inh INHALATION DAILY #3 device 01/26/20 umeclidinium 62.5 mcg/actuation blister powder for inhalation 1 inh INHALATION DAILY #3 ea 01/26/20 Bumetanide [Bumex] 2 mg PO BID 02/03/20 Ergocalciferol (Vitamin D2) [Vitamin D2] 50,000 unit PO CUNHA 02/03/20 Insulin Lispro [Humalog] See Protocol SQ DAILY 02/03/20 Primary Care Physician: Chance Merida DO [NON-STAFF] - Test Results: Test results from this visit will be discussed in further detail at your follow- up appointment, if applicable.
--- NOTE | 2020-02-09 10:58 | PCM.PN.HOSP ---
Patient Problems: Active and Suspected Problems (Last Reviewed 12/30/19 @ 07:[address] Yuan Heredia MD) Acute respiratory failure (Acute) Anemia (Acute) Elevated troponin (Acute) Reason for Visit: chf Subjective: breathing well. anxious to go home. Vitals/I&O's: Vital Signs Temp Pulse Resp BP Pulse Ox 36.5 C L 53 L 16 142/64 H 94 02/09/20 09:15 02/09/20 10:30 02/09/20 10:30 02/09/20 10:30 02/09/20 10:30 Oxygen Flow Rate (L/min) 2 Oxygen Delivery Method Nasal Cannula Weight: 71.5 kg Body Mass Index (BMI) 25.7 Finger Stick Blood Glucose 302 Intake and Output for Last 24 Hours 02/07/20 02/08/20 02/09/20 23:59 23:59 23:59 Intake Total 790 / 910 1500 / 1720 252 / 252 Output Total 3075 / 3175 850 / 1075 725 / 725 Balance -2285 / -2265 650 / 645 -473 / -473 General: Alert, No apparent distress HEENT: Atraumatic, Normocephalic Oral: Moist Mucosa, No Gingival or Mucosal Lesions/ Ulcerations Neck: No Nodes, Trachea Midline Lungs: Clear to auscultation, Normal air movement, No rhonchi, No wheeze Cardiovascular: Regular rate, Regular Rhythm, - - 2/6 HIWOT at RUSB. Abdomen: Bowel Sounds Present, Soft, Non Tender, Non-Distended, No Hepato-splenomegaly Extremities: No edema, No Calf Tenderness Skin: No rashes, No breakdown Musculoskeletal: No Tenderness to Palpation of Joints or Extremities, No Muscle Wasting Psych/Mental Status: Normal Affect, Appropriate Microbiology Past 72 Hours 02/03/20 11:35 Blood Culture (Wb) - Anticubital Right Blood Culture - Final No growth in 5 days. 02/03/20 11:41 Blood Culture (Wb) - No Site/Description Given Blood Culture - Final No growth in 5 days. Laboratory Results 02/08/20 11:12: POC Glucose 386 H 02/08/20 16:37: POC Glucose 387 H 02/08/20 22:01: POC Glucose 409 H 02/09/20 05:52: WBC 8.2, RBC 3.35 L, Hgb 9.5 L, Hct 29.3 L, MCV 87.5, MCH 28.4, MCHC 32.4, RDW Std Deviation 40.1, RDW Coeff of Janel 12.6, Plt Count 141 L, MPV 11.8, Immature Gran % (Auto) 0.600, Neut % (Auto) 80.0 H, Lymph % (Auto) 8.0 L, [place] % (Auto) 10.3 H, Eos % (Auto) 1.0, Baso % (Auto) 0.1, Absolute Neuts (auto) 6.6, Absolute Lymphs (auto) 0.66 L, Nucleated RBC % 0 02/09/20 05:52: Sodium 131 L, Potassium 3.8, Chloride 96 L, Carbon Dioxide 26.0, Anion Gap 9, BUN 82 H, Creatinine 3.32 H, Estim Creat Clear Calc 18.03, Est GFR (MDRD) Af Amer 23 L, Est GFR (MDRD) Non-Af 19 L, BUN/Creatinine Ratio 24.7 H, Glucose 486 H*, Calcium 7.7 L 02/09/20 06:53: POC Glucose 480 H* 02/09/20 08:39: Specimen Type ART, pH 7.33 L, Bicarbonate Actual 21.2 L, POC Total CO2 22, Base Excess -5 L, O2 Saturation 89 L, ABG pCO2 40.0, ABG pO2 61 L 02/09/20 08:41: POC Glucose 427 H 02/09/20 10:01: POC Glucose 332 H Current Medications Acetaminophen (Tylenol) 650 mg PO Q6H PRN PRN PRN Reason: Pain Score 1-10/10 Albuterol Sulfate (Ventolin Aerosols) 2.5 mg INHALATION Q2H PRN PRN PRN Reason: SOB/Wheezing Last Admin: 02/05/20 00:26 Dose: 2.5 mg Documented by: Albuterol/Ipratropium (Duoneb) 3 ml INHALATION Q4H.RT KELIN Last Admin: 02/09/20 03:18 Dose: 3 ml Documented by: Atorvastatin Calcium (Lipitor) 80 mg PO QHS KELIN Last Admin: 02/08/20 22:08 Dose: 80 mg Documented by: Benzonatate (Tessalon Perle) 200 mg PO TID PRN PRN PRN Reason: cough Last Admin: 02/07/20 11:39 Dose: 200 mg Documented by: Bisacodyl (Dulcolax) 5 mg PO DAILY PRN PRN Reason: Constipation Brimonidine Tartrate (Brimonidine 0.2% 5ml Bottle) 1 drop LEFT EYE BID [facility] Last Admin: 02/09/20 09:22 Dose: 1 drop Documented by: Buspirone HCl (Buspar) 5 mg PO TID PRN PRN PRN Reason: ANXIETY Last Admin: 02/08/20 22:08 Dose: 5 mg Documented by: Dextrose (D50w Syringe) 0 gm IV X1 PRN; Protocol PRN Reason: Hypoglycemia Enoxaparin Sodium (Lovenox) 30 mg SC DAILY [facility] Last Admin: 02/08/20 09:48 Dose: 30 mg Documented by: Ergocalciferol (Vitamin D) 50,000 unit PO Luna@1000 [facility] Last Admin: 02/08/20 09:47 Dose: 50,000 unit Documented by: Furosemide (Lasix) 80 mg IV BID [facility] Last Admin: 02/09/20 09:25 Dose: 80 mg Documented by: Glucagon () 1 mg IM .X1 PRN PRN Reason: Hypoglycemia Guaifenesin (Mucinex) 1,200 mg PO BID [facility] Last Admin: 02/09/20 09:21 Dose: 1,200 mg Documented by: Heparin Sodium (Beef Lung) (Heparin 500 Unit/5 Ml (100/Ml)) 500 unit IV UD PRN PRN Reason: HEPARIN FLUSH Hydralazine HCl (Apresoline) 25 mg PO TID [facility] Last Admin: 02/09/20 07:05 Dose: 25 mg Documented by: Sodium Chloride () 1,000 mls @ 15 mls/hr IV .Q48H [facility] Last Admin: 02/09/20 09:44 Dose: Not Given Documented by: Sodium Chloride () 1,000 mls @ 15 mls/hr IV .Q48H [facility] Last Infusion: 02/09/20 09:15 Dose: 0 mls/hr Documented by: Insulin Glargine (Lantus (Bk)) 30 units SC BID [facility] Last Admin: 02/09/20 10:05 Dose: 15 u Documented by: Insulin Human Lispro (Humalog Kwikpen ([facility])) 0 unit SC ACHS [facility]; Protocol Last Admin: 02/09/20 10:05 Dose: 12 units Documented by: Isosorbide Mononitrate (Imdur) 60 mg PO DAILY [facility] Last Admin: 02/09/20 07:05 Dose: 60 mg Documented by: Labetalol HCl (Trandate) 5 mg IV X1 PRN PRN Reason: SBP > 160 prior to sheath pull Stop: 02/11/20 08:44 Latanoprost (Xalatan Opthalmic) 1 drop EACH EYE QHS [facility] Last Admin: 02/08/20 22:08 Dose: 1 drop Documented by: Methylprednisolone (Solu-Medrol) 40 mg IV DAILY [facility] Last Admin: 02/09/20 09:21 Dose: 40 mg Documented by: Metoprolol Succinate (Toprol Xl (Beta Antonette)) 12.5 mg PO DAILY [facility] Last Admin: 02/09/20 07:06 Dose: 12.5 mg Documented by: Nitroglycerin (Nitrostat) 0.4 mg SUBLINGUAL Q5M PRN PRN Reason: CARDIAC/CHEST PAIN Ondansetron HCl (Zofran) 4 mg IV Q8H PRN PRN PRN Reason: NAUSEA/VOMITING Sodium Chloride () 10 - 40 ml IV UD PRN PRN Reason: SALINE FLUSH Last Admin: 02/09/20 09:22 Dose: 10 ml Documented by: Sodium Chloride ([place] Nasal [place]) 2 spray NASAL Q4H PRN PRN PRN Reason: NASAL DRYNESS Last Admin: 02/09/20 07:06 Dose: 2 sprays Documented by: Tamsulosin HCl (Flomax) 0.4 mg PO DAILY@1730 [facility] Last Admin: 02/08/20 22:11 Dose: 0.4 mg Documented by: Timolol Maleate (Timoptic) 1 drop EACH EYE BID [facility] Last Admin: 02/09/20 09:22 Dose: 1 drop Documented by: Zolpidem Tartrate (Ambien (Generic)) 5 mg PO QHS PRN PRN PRN Reason: INSOMNIA Last Admin: 02/08/20 22:08 Dose: 5 mg Documented by: STROKE Vital Signs/Narrative: Vital Signs Temp Pulse Resp BP Pulse Ox 02/09/20 10:30 53 L 16 142/64 H 94 02/09/20 10:00 53 L 16 132/60 H 99 02/09/20 09:45 54 L 16 127/63 H 100 02/09/20 09:30 59 L 16 135/69 H 100 02/09/20 09:15 36.5 C L 58 L 16 138/69 H 97 02/09/20 08:08 94 02/09/20 07:15 52 L 16 98 02/09/20 07:06 68 02/09/20 07:05 65 02/09/20 07:02 65 Medical Necessity - Tobacco Use Smoking Status: Former smoker Tobacco Use: Cigarettes Assessment/Plan All Active Problems (Last Reviewed 12/30/19 @ 07:[address] Yuan Heredia MD) Acute respiratory failure (Acute) Anemia (Acute) Elevated troponin (Acute) Mitral regurgitation (Acute) Aortic stenosis (Acute) Acute blood loss anemia (Acute) History of coronary artery stent placement (Resolved 06/29/19) History of non-ST elevation myocardial infarction (NSTEMI) (Resolved 06/25/19) Acute kidney injury superimposed on chronic kidney disease (Resolved) Shortness of breath (Resolved) 1. acute HFrEF: EF 30%. On furosemide 80 IV BID. on metoprolol succinate. No ACEi/ARB given kidney disease. fluid restriction 1500cc/day. 2. NSTEMI: likely type 2, demand. [facility] cath today: patent stents. supportive mgmt. 3. URSULA on CKD 4: on dialysis. tunnelled cath placed. 4. Acute hypoxic respiratory failure: 2/2 CHF. improving. wean oxygen. check ambulatory pulse ox prior to discharge. 5. DM2: uncontrolled, high. exacerbated by steroids. check a1c. increased basal and schedule prandial 6. COPD exacerbation: on methylpred through 02/09 7. VTE prophylaxis: LMWH. 8. Urinary retention: campa placed by . Follow up in 2 weeks. Continue tamsulosin. Inpatient E&M: 80901 Subs Hosp L2
--- NOTE | 2020-02-09 11:32 | PN.RENAL_ITS ---
Patient Problems: Active and Suspected Problems (Last Reviewed 12/30/19 @ 07:[address] Yuan Heredia MD) Acute respiratory failure (Acute) Anemia (Acute) Elevated troponin (Acute) Subjective: No new complaints - Physical Exam Vitals/I&O's: Vital Signs Temp Pulse Resp BP Pulse Ox 97.7 F L 54 L 16 128/62 H 98 02/09/20 09:15 02/09/20 11:06 02/09/20 11:06 02/09/20 11:00 02/09/20 11:06 Oxygen Flow Rate (L/min) 2 Oxygen Delivery Method Nasal Cannula Weight: 71.5 kg Body Mass Index (BMI) 25.7 Finger Stick Blood Glucose 302 Intake and Output for Last 24 Hours 02/07/20 02/08/20 02/09/20 23:59 23:59 23:59 Intake Total 790 / 910 1500 / 1720 252 / 252 Output Total 3075 / 3175 850 / 1075 725 / 725 Balance -2285 / -2265 650 / 645 -473 / -473 General: Alert, Oriented x3, Cooperative HEENT: Atraumatic, PERRLA, EOMI, Normocephalic Neck: Supple, No JVD, Negative Carotid Bruits Lungs: Clear to auscultation, Normal air movement Cardiovascular: Regular rate, No murmurs Abdomen: Bowel Sounds Present, Soft, Non Tender Extremities: No edema, Capillary Refill Less than 3 Seconds Skin: No rashes, No breakdown Musculoskeletal: No Tenderness to Palpation of Joints or Extremities Neurological: Cranial nerves II-XII grossly intact Psych/Mental Status: Normal Affect, Appropriate Microbiology Past 72 Hours 02/03/20 11:35 Blood Culture (Wb) - Anticubital Right Blood Culture - Final No growth in 5 days. 02/03/20 11:41 Blood Culture (Wb) - No Site/Description Given Blood Culture - Final No growth in 5 days. Laboratory Results 02/08/20 11:12: POC Glucose 386 H 02/08/20 16:37: POC Glucose 387 H 02/08/20 22:01: POC Glucose 409 H 02/09/20 05:52: WBC 8.2, RBC 3.35 L, Hgb 9.5 L, Hct 29.3 L, MCV 87.5, MCH 28.4, MCHC 32.4, RDW Std Deviation 40.1, RDW Coeff of Janel 12.6, Plt Count 141 L, MPV 11.8, Immature Gran % (Auto) 0.600, Neut % (Auto) 80.0 H, Lymph % (Auto) 8.0 L, [place] % (Auto) 10.3 H, Eos % (Auto) 1.0, Baso % (Auto) 0.1, Absolute Neuts (auto) 6.6, Absolute Lymphs (auto) 0.66 L, Nucleated RBC % 0 02/09/20 05:52: Sodium 131 L, Potassium 3.8, Chloride 96 L, Carbon Dioxide 26.0, Anion Gap 9, BUN 82 H, Creatinine 3.32 H, Estim Creat Clear Calc 18.03, Est GFR (MDRD) Af Amer 23 L, Est GFR (MDRD) Non-Af 19 L, BUN/Creatinine Ratio 24.7 H, Glucose 486 H*, Calcium 7.7 L 02/09/20 05:52: Hemoglobin A1c Pending 02/09/20 06:53: POC Glucose 480 H* 02/09/20 08:39: Specimen Type ART, pH 7.33 L, Bicarbonate Actual 21.2 L, POC Total CO2 22, Base Excess -5 L, O2 Saturation 89 L, ABG pCO2 40.0, ABG pO2 61 L 02/09/20 08:41: POC Glucose 427 H 02/09/20 10:01: POC Glucose 332 H Current Medications Acetaminophen (Tylenol) 650 mg PO Q6H PRN PRN PRN Reason: Pain Score 1-10/10 Albuterol Sulfate (Ventolin Aerosols) 2.5 mg INHALATION Q2H PRN PRN PRN Reason: SOB/Wheezing Last Admin: 02/05/20 00:26 Dose: 2.5 mg Documented by: Albuterol/Ipratropium (Duoneb) 3 ml INHALATION Q4H.RT KELIN Last Admin: 02/09/20 11:06 Dose: 3 ml Documented by: Atorvastatin Calcium (Lipitor) 80 mg PO QHS KELIN Last Admin: 02/08/20 22:08 Dose: 80 mg Documented by: Benzonatate (Tessalon Perle) 200 mg PO TID PRN PRN PRN Reason: cough Last Admin: 02/07/20 11:39 Dose: 200 mg Documented by: Bisacodyl (Dulcolax) 5 mg PO DAILY PRN PRN Reason: Constipation Brimonidine Tartrate (Brimonidine 0.2% 5ml Bottle) 1 drop LEFT EYE BID [facility] Last Admin: 02/09/20 09:22 Dose: 1 drop Documented by: Buspirone HCl (Buspar) 5 mg PO TID PRN PRN PRN Reason: ANXIETY Last Admin: 02/08/20 22:08 Dose: 5 mg Documented by: Dextrose (D50w Syringe) 0 gm IV X1 PRN; Protocol PRN Reason: Hypoglycemia Enoxaparin Sodium (Lovenox) 30 mg SC DAILY [facility] Last Admin: 02/08/20 09:48 Dose: 30 mg Documented by: Ergocalciferol (Vitamin D) 50,000 unit PO Luna@1000 [facility] Last Admin: 02/08/20 09:47 Dose: 50,000 unit Documented by: Furosemide (Lasix) 80 mg IV BID [facility] Last Admin: 02/09/20 09:25 Dose: 80 mg Documented by: Glucagon () 1 mg IM .X1 PRN PRN Reason: Hypoglycemia Guaifenesin (Mucinex) 1,200 mg PO BID [facility] Last Admin: 02/09/20 09:21 Dose: 1,200 mg Documented by: Heparin Sodium (Beef Lung) (Heparin 500 Unit/5 Ml (100/Ml)) 500 unit IV UD PRN PRN Reason: HEPARIN FLUSH Hydralazine HCl (Apresoline) 25 mg PO TID [facility] Last Admin: 02/09/20 07:05 Dose: 25 mg Documented by: Sodium Chloride () 1,000 mls @ 15 mls/hr IV .Q48H [facility] Last Admin: 02/09/20 09:44 Dose: Not Given Documented by: Sodium Chloride () 1,000 mls @ 15 mls/hr IV .Q48H [facility] Last Infusion: 02/09/20 09:15 Dose: 0 mls/hr Documented by: Insulin Glargine (Lantus (Bkc)) 45 units SC BID [facility] Insulin Human Lispro (Humalog Kwikpen (Bkc)) 0 unit SC ACHS [facility]; Protocol Last Admin: 02/09/20 10:05 Dose: 12 units Documented by: Insulin Human Lispro (Humalog Kwikpen (Bkc)) 10 unit SC TIDAC [facility] Isosorbide Mononitrate (Imdur) 60 mg PO DAILY [facility] Last Admin: 02/09/20 07:05 Dose: 60 mg Documented by: Labetalol HCl (Trandate) 5 mg IV X1 PRN PRN Reason: SBP > 160 prior to sheath pull Stop: 02/11/20 08:44 Latanoprost (Xalatan Opthalmic) 1 drop EACH EYE QHS [facility] Last Admin: 02/08/20 22:08 Dose: 1 drop Documented by: Methylprednisolone (Solu-Medrol) 40 mg IV DAILY [facility] Last Admin: 02/09/20 09:21 Dose: 40 mg Documented by: Metoprolol Succinate (Toprol Xl (Beta [place])) 12.5 mg PO DAILY [facility] Last Admin: 02/09/20 07:06 Dose: 12.5 mg Documented by: Nitroglycerin (Nitrostat) 0.4 mg SUBLINGUAL Q5M PRN PRN Reason: CARDIAC/CHEST PAIN Ondansetron HCl (Zofran) 4 mg IV Q8H PRN PRN PRN Reason: NAUSEA/VOMITING Sodium Chloride () 10 - 40 ml IV UD PRN PRN Reason: SALINE FLUSH Last Admin: 02/09/20 09:22 Dose: 10 ml Documented by: Sodium Chloride ([place] Nasal [place]) 2 spray NASAL Q4H PRN PRN PRN Reason: NASAL DRYNESS Last Admin: 02/09/20 07:06 Dose: 2 sprays Documented by: Tamsulosin HCl (Flomax) 0.4 mg PO DAILY@1730 [facility] Last Admin: 02/08/20 22:11 Dose: 0.4 mg Documented by: Timolol Maleate (Timoptic) 1 drop EACH EYE BID [facility] Last Admin: 02/09/20 09:22 Dose: 1 drop Documented by: Zolpidem Tartrate (Ambien (Generic)) 5 mg PO QHS PRN PRN PRN Reason: INSOMNIA Last Admin: 02/08/20 22:08 Dose: 5 mg Documented by: Medical Necessity - Tobacco Use Smoking Status: Former smoker Tobacco Use: Cigarettes Assessment/Plan All Active Problems (Last Reviewed 12/30/19 @ 07:[address] Yuan Heredia MD) Acute respiratory failure (Acute) Anemia (Acute) Elevated troponin (Acute) Mitral regurgitation (Acute) Aortic stenosis (Acute) Acute blood loss anemia (Acute) History of coronary artery stent placement (Resolved 06/29/19) History of non-ST elevation myocardial infarction (NSTEMI) (Resolved 06/25/19) Acute kidney injury superimposed on chronic kidney disease (Resolved) Shortness of breath (Resolved) Acute renal failure Chronic kidney disease stage IV Congestive heart failure Started dialysis last week. Coronary angiogram report reviewed. Will plan for dialysis today. Has a confirmed spot as outpatient Sunday, Sunday, Sunday at 4 PM. Can be discharged tomorrow. anemia. He did receive blood transfusion. 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 needs vein mapping and AVF placement. will refer to Dr Bazzi as outpatient
--- NOTE | 2020-02-09 11:37 | CASEMGMT ---
Call to Caio at [facility] and he states pt is set up for dialysis on MWF at 1600 at this time. He states that pt is financially and medically clear at this time. Pt had a heart cath today and plan is for discharge 02/[address] Avila. Caio is updated on this at this time, voices understanding. Pt is updated by this RN CM at this time, voices understanding. Pt voices no further questions/concerns/needs at this time. [facility] RN CM
--- NOTE | 2020-02-09 11:40 | PCM.CONS.U ---
Problem List (1) Urethral stricture Status: Acute Qualifiers: Urethral stricture type: other stricture Urethral stricture sex-location: male urethra-anterior Qualified Code(s): N35.814 - Other anterior urethral stricture, male (2) Prostate cancer Status: Acute Reason for Consult Date of Consultation: 02/09/20 Reason for Consultation: nurses unable to place Dolan catheter urethral stricture history prostate cancer History of Present Illness: The patient is a 75 year old male well known to my practice who has a history of prostate cancer treated with radiation therapy a long time ago. He's kept his regular appointments and currently he's been doing well no evidence of recurrence of disease. He has had deterioration is health and at this point is planning to go on dialysis. He's in the hospital recently had a cardiac catheterization. Difficulty going to the bathroom and so nurses were instructed to do self cath but they had a hard time getting a catheter past a mild urethral stricture, they had to use a very small catheter. Came and saw the patient evaluated the patient an examination and he has a mid mild urethral stricture. Been having difficulty with going to the bathroom. Past Medical History Past Medical History (Chronic Problems): Chronic Problems (Last Reviewed 12/30/19 @ 07:[address] Yuan Heredia MD) History of left heart catheterization (Chronic 02/09/20) Single vessel CAD of the RCA. LVEF: by LV gram 15-20 %. Depressed Left Ventricular systolic function - Severe. Normal Left Ventricular End Diastolic Pressure. Widely patent LAD stents. Widely patent LCX stents. Non obstructive coronary arteries. Aortic Valve Stenosis- Mild to moderate, mean gradient on pullback-22mm Hg. Estimated TELLY=1.92 cm2. The patient has pulmonary hypertension which is mild. Adequate L to R collaterals. Per [facility] done 02/09/20 by AN @ [facility] CHF exacerbation (Chronic) CKD (chronic kidney disease) (Chronic) Insulin pump titration (Chronic) Diabetes mellitus (Chronic) Paroxysmal atrial fibrillation (Chronic 06/2019) Acute systolic (congestive) heart failure (Chronic) Ischemic cardiomyopathy (Chronic) NSVT (nonsustained ventricular tachycardia) (Chronic) Atherosclerosis of coronary artery of [place] heart without angina pectoris (Chronic) [id number] and Mid LAD, GLADYS-Prox LCx into OM1; [employer] Mid RCA w/ Left-Right Septal Collaterals to RPDA 8/18/19 (HFpEF) heart failure with preserved ejection fraction (Chronic) Hyperlipidemia (Chronic) Essential (primary) hypertension (Chronic) Mobitz type I Wenckebach atrioventricular block (Chronic) Incomplete right bundle branch block (Chronic) Pulmonary nodule (Chronic) Chronic hypoxemic respiratory failure (Chronic) COPD (chronic obstructive pulmonary disease) (Chronic) Medical History: Medical History (Last Reviewed 02/09/20 @ 11:[address] Aryan Hernandez MD) Paroxysmal atrial fibrillation (Chronic) Onset Date: 06/2019 I48.0 Acute systolic (congestive) heart failure (Chronic) I50.21 Ischemic cardiomyopathy (Chronic) I25.5 NSVT (nonsustained ventricular tachycardia) (Chronic) I47.2 Atherosclerosis of coronary artery of [place] heart without angina pectoris (Chronic) I25.10 QCQ-MNC-Vyit and Mid LAD, GLADYS-Prox LCx into OM1; [employer]GER Mid RCA w/ Left-Right Septal Collaterals to RPDA 06/29/19 (HFpEF) heart failure with preserved ejection fraction (Chronic) I50.30 Hyperlipidemia (Chronic) E78.5 Essential (primary) hypertension (Chronic) I10 Mobitz type I Wenckebach atrioventricular block (Chronic) I44.1 History of non-ST elevation myocardial infarction (NSTEMI) (Resolved) Onset Date: 06/25/19 I25.2 Incomplete right bundle branch block (Chronic) I45.10 Pulmonary nodule (Chronic) R91.1 Chronic hypoxemic respiratory failure (Chronic) J96.11 COPD (chronic obstructive pulmonary disease) (Chronic) J44.9 Chronic steroid use Dialysis patient Z99.2 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 E10.649 Hyponatremia E87.1 Overweight E66.3 Pedal edema R60.0 Allergic rhinitis J30.9 Anemia D64.9 Anemia D64.9 Benign localized hyperplasia of prostate N40.0 CKD (chronic kidney disease) stage 4, GFR 15-29 ml/min N18.4 On dialysis COPD (chronic obstructive pulmonary disease) J44.9 Carpal tunnel syndrome G56.00 Chronic allergic rhinitis J30.9 Chronic otitis media H66.90 Epistaxis R04.0 Former smoker Z87.891 GERD (gastroesophageal reflux disease) K21.9 GI bleed Onset Date: 06/28/19 K92.2 History of prostate cancer Z85.46 snf (current) use of insulin Z79.4 Low back pain M54.5 Neuralgia M79.2 Nonallopathic lesion of lumbar region M99.9 Nonallopathic lesion of rib cage M99.9 Nonallopathic lesion of sacral region M99.9 Nonallopathic lesion of thoracic region, not elsewhere classified M99.9 Otalgia H92.09 Otitis externa H60.90 PVD (peripheral vascular disease) I73.9 Pain in lower limb M79.606 Peripheral vascular insufficiency I73.9 Thoracic back pain M54.6 Thoracic outlet syndrome G54.0 Type I diabetes mellitus E10.9 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 Constipation K59.00 Serous otitis media H65.90 Wax in ear H61.20 Reactive airway disease J45.909 Allergies budesonide Allergy (Severe, Verified 12/29/19 13:20) Other - can't breathe amoxicillin [From Augmentin] Allergy (Unknown, Verified 12/29/19 13:20) Unknown clavulanic acid [From Augmentin] Allergy (Unknown, Verified 12/29/19 13:20) Unknown Sulfa (Sulfonamide Antibiotics) Allergy (Unknown, Verified 12/29/19 13:20) Unknown Home Medications: Ambulatory Orders Medication Instructions Recorded latanoprost 0.005 % eye drops 1 drp EACH EYE DAILY ml 11/15/17 albuterol sulfate 90 mcg/actuation 2 puff INHALATION Q6H PRN PRN #18 g 08/05/19 aerosol inhaler aspirin 81 mg tablet,delayed 81 mg PO DAILY #90 tab 08/06/19 release atorvastatin 80 mg tablet 80 mg PO QHS #90 tab 08/06/19 clopidogrel 75 mg tablet 75 mg PO DAILY #90 tab 08/06/19 hydralazine 25 mg tablet 25 mg PO TID #270 tab 08/06/19 isosorbide mononitrate 30 mg 30 mg PO DAILY #90 tab 08/06/19 tablet,extended release 24 hr metoprolol succinate 25 mg 12.5 mg PO DAILY #60 tab 08/06/19 tablet,extended release 24 hr insulin lispro 100 unit/mL See Rx Instructions SC DAILY ml 09/12/19 subcutaneous solution brimonidine 0.2 % eye drops 1 drp LEFT EYE BID ml 10/01/19 timolol 0.5 % eye drops 1 drp EACH EYE DAILY ml 10/01/19 blood sugar diagnostic See Rx Instructions .ROUTE 11/24/19 .MEDSUPPLY #150 ea fluticasone furoate 200 1 inh INHALATION DAILY #3 device 01/26/20 mcg-vilanterol 25 mcg/dose inhalation powder umeclidinium 62.5 mcg/actuation 1 inh INHALATION DAILY #3 ea 01/26/20 blister powder for inhalation Bumetanide [Bumex] 2 mg PO BID 02/03/20 Ergocalciferol (Vitamin D2) 50,000 unit PO CUNHA 02/03/20 [Vitamin D2] Insulin Lispro [Humalog] See Protocol SQ DAILY 02/03/20 Surgical History: Surgical History (Last Updated 02/09/20 @ 09:47 by Lorrie Sanchez) History of left heart catheterization (Chronic) Onset Date: 02/09/20 Z98.890 Single vessel CAD of the RCA. LVEF: by LV gram 15-20 %. Depressed Left Ventricular systolic function - Severe. Normal Left Ventricular End Diastolic Pressure. Widely patent LAD stents. Widely patent LCX stents. Non obstructive coronary arteries. Aortic Valve Stenosis- Mild to moderate, mean gradient on pullback-22mm Hg. Estimated TELLY=1.92 cm2. The patient has pulmonary hypertension which is mild. Adequate L to R collaterals. Per C done 02/09/20 by AN @ [facility] History of coronary artery stent placement (Resolved) Onset Date: 06/29/19 Z95.5 PCI-GLADYS-Mid LAD w/ 3.5 x 18 mm Xience Isabel Stent, Prox LAD w/ 3.5 x 33 mm Xience Isabel Stent, GLADYS-Prox LCx into OM1 w/ 3.0 x 38 mm Xience Isabel Stent; [employer]GER Mid RCA w/ Left-Right Septal Collaterals to RPDA 06/29/19 H/O inguinal hernia repair Z98.890, Z87.19 Left; Dr. Osuna H/O prostate biopsy Z98.890 Dr. Hernandez History of appendectomy Z98.890, Z90.49 History of carpal tunnel surgery of left wrist Z98.890 S/P bilateral foot surgery Z98.890 S/P rotator cuff repair Z98.890 right Surgical History: no surgical history Psychiatric History: No pertinent psych hx Smoking Status: Former smoker Tobacco Use: Cigarettes - *Family History Maternal Family History: Family History (Last Reviewed 12/30/19 @ 07:[address] Yuan Heredia MD) Sister Diabetes Father Heart disease History Items: No pertinent history Paternal Family History: Family History (Last Reviewed 12/30/19 @ 07:[address] Yuan Heredia MD) Sister Diabetes Father Heart disease History Items: Heart Disease Review of Systems Constitutional: Denies: Chills, Fever, Weight Change HEENT: Denies: Head Aches, Sinus Congestion, Sinus Drainage Cardiovascular: Denies: Chest Pain, Palpitations Respiratory: Denies: Cough, Shortness of breath at rest, Sputum production Gastrointestinal: Denies: Abdominal Pain, Nausea, Vomiting Genitourinary: Reports: Retention. Denies: Dysuria Musculoskeletal: Denies: Joint Pain, Joint Tenderness Skin: Denies: Rash, Wounds Neurological: Denies: Numbness, Tingling, Focal weakness Psychiatric: Denies: Anxiety, Depression, Homicidal Ideations, Suicidal Ideations Hematologic/ Lymphatic: Denies: Easy Bruising, Easy Bleeding Physical Exam - Physical Exam Vital Signs Temp 97.7 F L 02/09/20 09:15 Pulse 54 L 02/09/20 11:06 Resp 16 02/09/20 11:06 BP 128/62 H 02/09/20 11:00 Pulse Ox 98 02/09/20 11:06 Intake & Output 02/07/20 02/08/20 02/09/20 23:59 23:59 23:59 Intake Total 790 / 910 1500 / 1720 252 / 252 Output Total 3075 / 3175 850 / 1075 725 / 725 Balance -2285 / -2265 650 / 645 -473 / -473 Weight: 77 kg 71.2 kg 71.5 kg Intake: Oral 790 / 910 1500 / 1720 220 / 220 Intake, IV Amount 32 / 32 0.45% Normal Saline 1,000 ML @ 0 / 0 15 mls/hr IV .Q48H KELIN Rx#: [id number] 0.9% Normal Saline 1,000 ML @ 32 / 32 KVO 15 mls/hr IV .Q48H KELIN Rx#: [id number] Output: Urine 775 / 875 825 / 1050 725 / 725 #2 Urine 25 / 25 Dialysate 2300 / 2300 Other: Incontinent Amount Moderate Number of Bowel Movements 1 1 General: Alert, Oriented x3 HEENT: Atraumatic Oral: Moist Mucosa Neck: Supple Lungs: Normal air movement Cardiovascular: Regular Rhythm Abdomen: Soft Microbiology Past 72 Hours 02/03/20 11:35 Blood Culture - Final Blood Culture (Wb) - Anticubital Right No growth in 5 days. 02/03/20 11:41 Blood Culture - Final Blood Culture (Wb) - No Site/Description Given No growth in 5 days. Laboratory Tests Past 24 Hrs 02/09/20 02/09/20 02/09/20 05:52 05:52 05:52 WBC 8.2 RBC 3.35 L Hgb 9.5 L Hct 29.3 L MCV 87.5 MCH 28.4 MCHC 32.4 RDW Std Deviation 40.1 RDW Coeff of Janel 12.6 Plt Count 141 L MPV 11.8 Immature Gran % (Auto) 0.600 Neut % (Auto) 80.0 H Lymph % (Auto) 8.0 L Amite % (Auto) 10.3 H Eos % (Auto) 1.0 Baso % (Auto) 0.1 Absolute Neuts (auto) 6.6 Absolute Lymphs (auto) 0.66 L Nucleated RBC % 0 Specimen Type pH Bicarbonate Actual POC Total CO2 Base Excess O2 Saturation ABG pCO2 ABG pO2 Sodium 131 L Potassium 3.8 Chloride 96 L Carbon Dioxide 26.0 Anion Gap 9 BUN 82 H Creatinine 3.32 H Estim Creat Clear Calc 18.03 Est GFR (MDRD) Af Amer 23 L Est GFR (MDRD) Non-Af 19 L BUN/Creatinine Ratio 24.7 H Glucose 486 H* Hemoglobin A1c Pending Calcium 7.7 L 02/09/20 08:39 WBC RBC Hgb Hct MCV MCH MCHC RDW Std Deviation RDW Coeff of Janel Plt Count MPV Immature Gran % (Auto) Neut % (Auto) Lymph % (Auto) Amite % (Auto) Eos % (Auto) Baso % (Auto) Absolute Neuts (auto) Absolute Lymphs (auto) Nucleated RBC % Specimen Type ART pH 7.33 L Bicarbonate Actual 21.2 L POC Total CO2 22 Base Excess -5 L O2 Saturation 89 L ABG pCO2 40.0 ABG pO2 61 L Sodium Potassium Chloride Carbon Dioxide Anion Gap BUN Creatinine Estim Creat Clear Calc Est GFR (MDRD) Af Amer Est GFR (MDRD) Non-Af BUN/Creatinine Ratio Glucose Hemoglobin A1c Calcium Assessment/Plan All Active Problems (Last Reviewed 12/30/19 @ 07:[address] Yuan Heredia MD) Urethral stricture (Acute) Prostate cancer (Acute) Acute respiratory failure (Acute) Anemia (Acute) Elevated troponin (Acute) Mitral regurgitation (Acute) Aortic stenosis (Acute) Acute blood loss anemia (Acute) History of coronary artery stent placement (Resolved 06/29/19) History of non-ST elevation myocardial infarction (NSTEMI) (Resolved 06/25/19) Acute kidney injury superimposed on chronic kidney disease (Resolved) Shortness of breath (Resolved) using a urology kit I just to glide wire through the urethra and then over the wireI dilated the mid-urethral stricture to 18 Indian and over this a place a 16 Indian catheter into the bladder and drained the bladder of urine the urine is nice and clear. He can go home with a catheter and I instructed in the call me and make an appointment next week to remove the catheter for a voiding trial. Any questions please give me a call.
[2020-02-09 14:16] LABS: VBG BASE EXCESS -4 mmol/L (-1.0-3.5); VBG Bicarbonate 22 mmol/L (22-26); VBG Oxygen Content 24 mmol/L (23-33); VBG PO2 33 mmHg (25-40); VBG SO2 60 % (50-70); VBG pCO2 42.4 mmHg (41-51); VBG pH 7.33 (7.32-7.42)
[2020-02-09 14:16] LABS: VBG BASE EXCESS -3 mmol/L (-1.0-3.5); VBG Bicarbonate 23 mmol/L (22-26); VBG Oxygen Content 24 mmol/L (23-33); VBG PO2 35 mmHg (25-40); VBG SO2 62 % (50-70); VBG pCO2 42.6 mmHg (41-51); VBG pH 7.33 (7.32-7.42)
[2020-02-09 16:15] LABS: Bedside Glucose 122 mg/dL (70-110)
[2020-02-09] MEDS: Heparin 10,000 UNITS/10 ML Vial IV (19:09)
[2020-02-09] MEDS: Tamsulosin HCl 0.4 MG Capsule PO (19:15)
[2020-02-09] MEDS: Insulin Lispro 100 UNIT/ML INSULN.PEN 10 UNIT SC (19:16)
[2020-02-09 19:20] LABS: Bedside Glucose 143 mg/dL (70-110)
--- NOTE | 2020-02-09 19:32 | DIALYSIS ---
HD x 3 hours complete. Tolerated tx well. Ran on 3k bath. UF of 1800ml. Used right chest wall catheter. Catheter closed with heparin per fill volume. Report was given to AILIN Fortune.
[2020-02-09] MEDS: Latanoprost 0.005% 1 Bottle 1 DRP EACH EYE (22:03)
[2020-02-09] MEDS: Zolpidem Tartrate 5 MG Tablet PO (22:03)
[2020-02-09] MEDS: Atorvastatin Calcium 80 MG Tablet PO (22:03)
[2020-02-09] MEDS: busPIRone 5 MG Tablet PO (22:03)
[2020-02-09 22:20] LABS: Bedside Glucose 235 mg/dL (70-110)
[2020-02-10] VITALS (13 sets, daily range): BP systolic 113–123; BP diastolic 59–62; PULSE 59–78; RESP 16–20; TEMP 36.5–36.7; O2SAT 85–99
[2020-02-10] MEDS: Ipratropium/Albuterol Sulfate 3 ML AMPUL.NEB INHALATION ×3 (03:09→10:45)
[2020-02-10] MEDS: hydrALAZINE 25 MG Tablet PO (06:21)
[2020-02-10 06:59] LABS: Anion Gap 7 (5-15); BUN 45 mg/dL (7-18); BUN/Creat Ratio 18.2 RATIO (10-20); Chloride 102 mmol/L (98-107); Creatinine, Serum 2.47 mg/dL (0.70-1.30); EST Glomerular Filtration Rate 27 mL/min (>60); Est Glom Filt Rate - Afr Amer 33 mL/min (>60); Estimated Creatinine Clearance 24.23 ml/min; Glucose 120 mg/dL (74-106); Potassium 3.1 mmol/L (3.5-5.1); Sodium Level 137 mmol/L (136-145)
--- NOTE | 2020-02-10 07:33 | PN_ITS ---
Patient Problems: Active and Suspected Problems (Last Reviewed 02/09/20 @ 11:[address] Aryan Hernandez MD) Urethral stricture (Acute) Prostate cancer (Acute) Acute respiratory failure (Acute) Anemia (Acute) Elevated troponin (Acute) Subjective: Patient did well overnight. No acute issues were reported. Patient states I feel great. Patient did have to be seen yesterday by urology secondary to urinary retention. Patient did receive dilation of a urethral stricture. Patient asking to go home. Objective: Heart cath yesterday was reviewed. No interventions were required. - Physical Exam Vitals/I&O's: Vital Signs Temp Pulse Resp BP Pulse Ox 36.6 C 62 18 114/61 98 02/10/20 06:15 02/10/20 06:21 02/10/20 06:15 02/10/20 06:21 02/10/20 06:15 Oxygen Flow Rate (L/min) 2 Oxygen Delivery Method Nasal Cannula Weight: 71.3 kg Body Mass Index (BMI) 25.7 Finger Stick Blood Glucose 302 Intake and Output for Last 24 Hours 02/08/20 02/09/20 02/10/20 23:59 23:59 23:59 Intake Total 1500 / 1720 1052 / 1052 Output Total 850 / 1075 3300 / 3300 150 / 150 Balance 650 / 645 -2248 / -2248 -150 / -150 General: Alert, Oriented x3, Cooperative, No apparent distress HEENT: Atraumatic, PERRLA, EOMI, Normocephalic, - - No scleral icterus or injection noted Oral: Moist Mucosa, No Gingival or Mucosal Lesions/ Ulcerations Neck: Supple, No JVD, No Nodes, Trachea Midline Lungs: No rhonchi, No wheeze, No rales, Diminished, - - Symmetric expansion. Cardiovascular: Regular rate, Regular Rhythm, Normal S1, Normal S2, No murmurs, No rub noted, No Gallop, - - Right subclavian dialysis line is clean, dry and intact Abdomen: Bowel Sounds Present, Soft, Non Tender, Non-Distended Extremities: No clubbing, No cyanosis, No edema Skin: No rashes, No breakdown Musculoskeletal: No Tenderness to Palpation of Joints or Extremities Lymphatic: No Cervical, Supraclavicular, or Inguinal Adenopathy Neurological: Cranial nerves II-XII grossly intact, Neuro grossly intact, Motor Exam 5/5 strength throughout Psych/Mental Status: Alert and oriented to time, place, person, mood and affect Microbiology Past 72 Hours 02/03/20 11:35 Blood Culture (Wb) - Anticubital Right Blood Culture - Final No growth in 5 days. 02/03/20 11:41 Blood Culture (Wb) - No Site/Description Given Blood Culture - Final No growth in 5 days. Laboratory Results 02/09/20 05:52: Hemoglobin A1c 7.0 H 02/09/20 06:53: POC Glucose 480 H* 02/09/20 08:29: VBG pH 7.33, VBG pO2 33, VBG O2 Sat (Calc) 60, VBG O2 Content 24, VBG Base Excess -4 L, POC Mix VBG pCO2 Pt Tmp 42.4 02/09/20 08:32: VBG pH 7.33, VBG pO2 35, VBG O2 Sat (Calc) 62, VBG O2 Content 24, VBG Base Excess -3 L, POC Mix VBG pCO2 Pt Tmp 42.6 02/09/20 08:39: Specimen Type ART, pH 7.33 L, Bicarbonate Actual 21.2 L, POC Total CO2 22, Base Excess -5 L, O2 Saturation 89 L, ABG pCO2 40.0, ABG pO2 61 L 02/09/20 08:41: POC Glucose 427 H 02/09/20 10:01: POC Glucose 332 H 02/09/20 16:11: POC Glucose 122 H 02/09/20 19:13: POC Glucose 143 H 02/09/20 21:52: POC Glucose 235 H 02/10/20 06:08: Sodium 137, Potassium 3.1 L, Chloride 102, Carbon Dioxide 28.0, Anion Gap 7, BUN 45 H, Creatinine 2.47 H, Estim Creat Clear Calc 24.23, Est GFR (MDRD) Af Amer 33 L, Est GFR (MDRD) Non-Af 27 L, BUN/Creatinine Ratio 18.2, Glucose 120 H, Calcium 8.0 L Current Medications Acetaminophen (Tylenol) 650 mg PO Q6H PRN PRN PRN Reason: Pain Score 1-10/10 Albuterol Sulfate (Ventolin Aerosols) 2.5 mg INHALATION Q2H PRN PRN PRN Reason: SOB/Wheezing Last Admin: 02/05/20 00:26 Dose: 2.5 mg Documented by: Albuterol/Ipratropium (Duoneb) 3 ml INHALATION Q4H.RT ON LICENSE OF [facility] Last Admin: 02/10/20 07:06 Dose: 3 ml Documented by: Atorvastatin Calcium (Lipitor) 80 mg PO QHS ON LICENSE OF [facility] Last Admin: 02/09/20 22:03 Dose: 80 mg Documented by: Benzonatate (Tessalon Perle) 200 mg PO TID PRN PRN PRN Reason: cough Last Admin: 02/07/20 11:39 Dose: 200 mg Documented by: Bisacodyl (Dulcolax) 5 mg PO DAILY PRN PRN Reason: Constipation Brimonidine Tartrate (Brimonidine 0.2% 5ml Bottle) 1 drop LEFT EYE BID ON LICENSE OF [facility] Last Admin: 02/09/20 22:03 Dose: 1 drop Documented by: Buspirone HCl (Buspar) 5 mg PO TID PRN PRN PRN Reason: ANXIETY Last Admin: 02/09/20 22:03 Dose: 5 mg Documented by: Dextrose (D50w Syringe) 0 gm IV X1 PRN; Protocol PRN Reason: Hypoglycemia Enoxaparin Sodium (Lovenox) 30 mg SC DAILY ON LICENSE OF [facility] Last Admin: 02/08/20 09:48 Dose: 30 mg Documented by: Ergocalciferol (Vitamin D) 50,000 unit PO Luna@1000 ON LICENSE OF [facility] Last Admin: 02/08/20 09:47 Dose: 50,000 unit Documented by: Furosemide (Lasix) 80 mg IV BID ON LICENSE OF [facility] Last Admin: 02/09/20 22:02 Dose: 80 mg Documented by: Glucagon () 1 mg IM .X1 PRN PRN Reason: Hypoglycemia Guaifenesin (Mucinex) 1,200 mg PO BID ON LICENSE OF [facility] Last Admin: 02/09/20 22:03 Dose: 1,200 mg Documented by: Heparin Sodium (Beef Lung) (Heparin 500 Unit/5 Ml (100/Ml)) 500 unit IV UD PRN PRN Reason: HEPARIN FLUSH Hydralazine HCl (Apresoline) 25 mg PO TID ON LICENSE OF [facility] Last Admin: 02/10/20 06:21 Dose: 25 mg Documented by: Sodium Chloride () 1,000 mls @ 15 mls/hr IV .Q48H ON LICENSE OF [facility] Last Admin: 02/09/20 09:44 Dose: Not Given Documented by: Sodium Chloride () 1,000 mls @ 15 mls/hr IV .Q48H ON LICENSE OF [facility] Last Infusion: 02/09/20 09:15 Dose: 0 mls/hr Documented by: Insulin Glargine (Lantus (Bkc)) 45 units SC BID ON LICENSE OF [facility] Last Admin: 02/09/20 22:06 Dose: 45 unit Documented by: Insulin Human Lispro (Humalog Kwikpen (Bk)) 0 unit SC ACHS ON LICENSE OF [facility]; Protocol Last Admin: 02/09/20 22:06 Dose: 6 units Documented by: Insulin Human Lispro (Humalog Kwikpen (Bkc)) 10 unit SC TIDAC ON LICENSE OF [facility] Last Admin: 02/09/20 19:16 Dose: 10 u Documented by: Isosorbide Mononitrate (Imdur) 60 mg PO DAILY ON LICENSE OF [facility] Last Admin: 02/09/20 07:05 Dose: 60 mg Documented by: Labetalol HCl (Trandate) 5 mg IV X1 PRN PRN Reason: SBP > 160 prior to sheath pull Stop: 02/11/20 08:44 Latanoprost (Xalatan Opthalmic) 1 drop EACH EYE QHS ON LICENSE OF [facility] Last Admin: 02/09/20 22:03 Dose: 1 drop Documented by: Methylprednisolone (Solu-Medrol) 40 mg IV DAILY ON LICENSE OF [facility] Last Admin: 02/09/20 09:21 Dose: 40 mg Documented by: Metoprolol Succinate (Toprol Xl (Beta Antonette)) 12.5 mg PO DAILY ON LICENSE OF [facility] Last Admin: 02/09/20 07:06 Dose: 12.5 mg Documented by: Nitroglycerin (Nitrostat) 0.4 mg SUBLINGUAL Q5M PRN PRN Reason: CARDIAC/CHEST PAIN Ondansetron HCl (Zofran) 4 mg IV Q8H PRN PRN PRN Reason: NAUSEA/VOMITING Sodium Chloride () 10 - 40 ml IV UD PRN PRN Reason: SALINE FLUSH Last Admin: 02/09/20 09:22 Dose: 10 ml Documented by: Sodium Chloride ([place] Nasal [place]) 2 spray NASAL Q4H PRN PRN PRN Reason: NASAL DRYNESS Last Admin: 02/09/20 07:06 Dose: 2 sprays Documented by: Tamsulosin HCl (Flomax) 0.4 mg PO DAILY@1730 ON LICENSE OF [facility] Last Admin: 02/09/20 19:15 Dose: 0.4 mg Documented by: Timolol Maleate (Timoptic) 1 drop EACH EYE BID KELIN Last Admin: 02/09/20 22:03 Dose: 1 drop Documented by: Zolpidem Tartrate (Ambien (Generic)) 5 mg PO QHS PRN PRN PRN Reason: INSOMNIA Last Admin: 02/09/20 22:03 Dose: 5 mg Documented by: Medical Necessity - Tobacco Use Smoking Status: Former smoker Tobacco Use: Cigarettes Assessment/Plan All Active Problems (Last Reviewed 02/09/20 @ 11:[address] Aryan Hernandez MD) Urethral stricture (Acute) Prostate cancer (Acute) Acute respiratory failure (Acute) Anemia (Acute) Elevated troponin (Acute) Mitral regurgitation (Acute) Aortic stenosis (Acute) Acute blood loss anemia (Acute) History of coronary artery stent placement (Resolved 06/29/19) History of non-ST elevation myocardial infarction (NSTEMI) (Resolved 06/25/19) Acute kidney injury superimposed on chronic kidney disease (Resolved) Shortness of breath (Resolved) RECOMMENDATIONS: 1. Continue scheduled bronchodilators. Transition to Pulmicort aerosols. Reinitiate triple therapy on discharge home 2. Continue volume optimization with hemodialysis per nephrology recommendations. 3. Wean supplemental oxygen to maintain saturations at or above 90%. Order walking oximetry 4. Encourage incentive spirometer use and mobilize patient as tolerated. IMPRESSIONS: 1. Acute on chronic hypoxemic respiratory failure Suspect this is primarily related to decompensated heart failure. The patient's respiratory status is improving in the setting of volume optimization through hemodialysis. Agree with continuing the aforementioned per nephrology recommendations. Continue scheduled bronchodilators, but transitioning to inhaled corticosteroids. The patient should resume his triple therapy inhaler regimen at discharge. Patient can follow-up with nurse practitioner [address] discharge[address] Walking oximetry prior to discharge has been ordered. 2. Anemia The patient does have evidence of normocytic anemia with a hemoglobin seth of 6.9 on February 03. The patient did receive 2 units of packed red blood cells with subsequent worsening in his respiratory status. Again, this is likely secondary to his inability to tolerate volume associated with transfusion of blood products. Continue to monitor H&H daily. Plan to transfuse if hemoglobin drops below 7 g/dL. No indication for transfusion at this time. 3. Ischemic cardiomyopathy status post recent PCI/non-ST segment elevation [place] Continue current medical management per cardiology recommendations. Tentative plans for cardiac catheterization today. 4. Chronic kidney disease Nephrology following to assist with hemodialysis needs. 5. Diabetes mellitus/hypertension/hyperlipidemia Complicates care, management, recovery and prognosis. Continue home medications as indicated. Significant hyperglycemia noted on morning labs. This is trended up for several days. Patient responded well to increase in basal insulin. Inpatient E&M: 96826 Subs Hosp L2
[2020-02-10] MEDS: BRIMONIDINE 0.2% 5ML BOTTLE 1 DRP LEFT EYE (08:17)
[2020-02-10] MEDS: Timolol 0.5% 5ML OPTH.BTL 1 DRP EACH EYE (08:18)
[2020-02-10] MEDS: Isosorbide Mononitrate 60 MG Tablet PO (08:27)
[2020-02-10] MEDS: guaiFENesin 1,200 MG Tablet 1200 MG PO (08:27)
[2020-02-10] MEDS: Metoprolol(XL)Succ 25 MG Tablet 12.5 MG PO (08:27)
[2020-02-10 08:36] LABS: Bedside Glucose 92 mg/dL (70-110)
[2020-02-10] MEDS: Insulin Lispro 100 UNIT/ML INSULN.PEN 10 UNIT SC ×2 (08:43→11:38)
--- NOTE | 2020-02-10 10:27 | PCM.DC ---
- Discharge Diagnoses Current Active Problems: Current Active and Chronic Problems (Last Reviewed 02/09/20 @ 11:[address] Aryan Hernandez MD) Urethral stricture (Acute) Prostate cancer (Acute) History of left heart catheterization (Chronic 02/09/20) Single vessel CAD of the RCA. LVEF: by LV gram 15-20 %. Depressed Left Ventricular systolic function - Severe. Normal Left Ventricular End Diastolic Pressure. Widely patent LAD stents. Widely patent LCX stents. Non obstructive coronary arteries. Aortic Valve Stenosis- Mild to moderate, mean gradient on pullback-22mm Hg. Estimated TELLY=1.92 cm2. The patient has pulmonary hypertension which is mild. Adequate L to R collaterals. Per [facility] done 02/09/20 by AN @ [facility] Acute respiratory failure (Acute) CHF exacerbation (Chronic) CKD (chronic kidney disease) (Chronic) Anemia (Acute) Elevated troponin (Acute) COPD (chronic obstructive pulmonary disease) (Chronic) You will use the following diet at home:: Cardiac Discharge Activity: Return to Normal Activity May shower in (days): 1 Call your doctor if your incision/area has: Continuous Slow Oozing, Sudden Increased Bleeding, Increased Pain/ Swelling, Increased Redness, Foul Smelling Discharge Call your doctor if you observe: Fever of 101 or Higher Suture Line Care: Avoid Pulling/Pushing, Avoid Pinching/Bending Additional Dressing/Incision Instructions:: Change or remove dressing in 4 days. Leave steri-strips in place for 1 week. Instructions: Emptying and Cleaning Your Urinary Catheter Bag, Caring for Your Leg Bag, ED Dolan Catheter Care, Hemodialysis, Creating a Hemodialysis Access Allergies/Adverse Reactions: Allergies amoxicillin [From Augmentin] Allergy (Unknown, Verified 12/29/19 13:20) Unknown clavulanic acid [From Augmentin] Allergy (Unknown, Verified 12/29/19 13:20) Unknown Sulfa (Sulfonamide Antibiotics) Allergy (Unknown, Verified 12/29/19 13:20) Unknown Medications to take at Discharge latanoprost 0.005 % eye drops 1 drp EACH EYE DAILY ml 11/15/17 albuterol sulfate 90 mcg/actuation aerosol inhaler 2 puff INHALATION Q6H PRN PRN #18 g 08/05/19 aspirin 81 mg tablet,delayed release 81 mg PO DAILY #90 tab 08/06/19 atorvastatin 80 mg tablet 80 mg PO QHS #90 tab 08/06/19 clopidogrel 75 mg tablet 75 mg PO DAILY #90 tab 08/06/19 hydralazine 25 mg tablet 25 mg PO TID #270 tab 08/06/19 isosorbide mononitrate 30 mg tablet,extended release 24 hr 30 mg PO DAILY #90 tab 08/06/19 metoprolol succinate 25 mg tablet,extended release 24 hr 12.5 mg PO DAILY #60 tab 08/06/19 insulin lispro 100 unit/mL subcutaneous solution See Rx Instructions SC DAILY ml 09/12/19 brimonidine 0.2 % eye drops 1 drp LEFT EYE BID ml 10/01/19 timolol 0.5 % eye drops 1 drp EACH EYE DAILY ml 10/01/19 blood sugar diagnostic See Rx Instructions .ROUTE .MEDSUPPLY #150 ea 11/24/19 fluticasone furoate 200 mcg-vilanterol 25 mcg/dose inhalation powder 1 inh INHALATION DAILY #3 device 01/26/20 umeclidinium 62.5 mcg/actuation blister powder for inhalation 1 inh INHALATION DAILY #3 ea 01/26/20 Bumetanide [Bumex] 2 mg PO BID 02/03/20 Ergocalciferol (Vitamin D2) [Vitamin D2] 50,000 unit PO CUNHA 02/03/20 Insulin Lispro [Humalog] See Protocol SQ DAILY 02/03/20 Tamsulosin HCl [Flomax] 0.4 mg PO DAILY@1730 #30 cap 02/10/20 The following prescriptions were given: Tamsulosin HCl [Flomax] 0.4 mg PO DAILY@1730 #30 cap Transmission Status: Pending to [id number] Primary Care Physician: Chance Merida DO [NON-STAFF] - Within 2 Weeks Test Results: Test results from this visit will be discussed in further detail at your follow-up appointment, if applicable. Please Follow Up With: Aryan Hernandez MD When: 1 week [facility]: [facility] Proposed Discharge Date: 02/10/20
--- NOTE | 2020-02-10 10:31 | PCM.DC.SUM ---
Discharge Date and Diagnosis - Problem List Patient Problems: Active and Suspected Problems (Last Reviewed 02/09/20 @ 11:[address] Aryan Hernandez MD) Urethral stricture (Acute) Prostate cancer (Acute) Acute respiratory failure (Acute) Anemia (Acute) Elevated troponin (Acute) Date of Admission: 02/03/20 Date of Discharge: 02/10/20 - Primary Discharge Diagnosis Active and Suspected Problems (Last Reviewed 02/09/20 @ 11:[address] Aryan Hernandez MD) 1. acute HFrEF: 2. NSTEMI: type 2 3. URSULA on CKD 4: 4. Acute hypoxic respiratory failure: 5. DM2: 6. COPD exacerbation: 7. VTE prophylaxis: 8. Urinary retention: - Secondary Discharge Diagnosis Chronic Problems (Last Reviewed 02/09/20 @ 11:[address] Aryan Hernandez MD) History of left heart catheterization (Chronic 02/09/20) Single vessel CAD of the RCA. LVEF: by LV gram 15-20 %. Depressed Left Ventricular systolic function - Severe. Normal Left Ventricular End Diastolic Pressure. Widely patent LAD stents. Widely patent LCX stents. Non obstructive coronary arteries. Aortic Valve Stenosis- Mild to moderate, mean gradient on pullback-22mm Hg. Estimated TELLY=1.92 cm2. The patient has pulmonary hypertension which is mild. Adequate L to R collaterals. Per [facility] done 02/09/20 by AN @ [facility] CHF exacerbation (Chronic) CKD (chronic kidney disease) (Chronic) Insulin pump titration (Chronic) Diabetes mellitus (Chronic) Paroxysmal atrial fibrillation (Chronic 06/2019) Acute systolic (congestive) heart failure (Chronic) Ischemic cardiomyopathy (Chronic) NSVT (nonsustained ventricular tachycardia) (Chronic) Atherosclerosis of coronary artery of [place] heart without angina pectoris (Chronic) [id number] and Mid LAD, GLADYS-Prox LCx into OM1; [employer] Mid RCA w/ Left-Right Septal Collaterals to RPDA 06/29/19 (HFpEF) heart failure with preserved ejection fraction (Chronic) Hyperlipidemia (Chronic) Essential (primary) hypertension (Chronic) Mobitz type I Wenckebach atrioventricular block (Chronic) Incomplete right bundle branch block (Chronic) Pulmonary nodule (Chronic) Chronic hypoxemic respiratory failure (Chronic) COPD (chronic obstructive pulmonary disease) (Chronic) Hospital Course and Treatment Imaging Results: Clinical Impression(s) from Imaging Studies Chest X-Ray 02/03/20 11:43 IMPRESSION: Findings in keeping with CHF superimposed on chronic basilar scarring with small bilateral effusions. Electronically Signed: Fabricio Shah, at 12:39 EDT , Service support , Chest X-Ray 02/05/20 17:22 IMPRESSION: 1. Right jugular hemodialysis catheter. No pneumothorax. 2. Worsening CHF. Electronically Signed: Dami Broon, DO at 17:34 EDT Tel [phone], Service support , Amy, nephrology Mary, urology Eliezer, Pulmonology Richar, Cardiology Jose Elias Bazzi: general surgery. Procedures: Dialysis, - - Right internal jugular 19 cm pre-curved palindrome catheter placement reference #[id number]. Lot #[id number]. Expiry date 06/09/2024 Summary of Care Provided: The patient is a 75 year old M presents with shortness of breath. Patient was found to be CHF. CHF was likely due to patient's worsening kidney disease. Patient was seen in consultation by cardiology, nephrology, pulmonology, urology. Patient was initiated on hemodialysis and has improved. Patient is also on Lasix as well. Currently patient is doing well and plan is for the patient continue with hemodialysis every Sunday. Patient had a Campa catheter placed as he was having urinary retention and was a different difficult catheter placement. Patient follow-up with urology in 1 week. He was started on tamsulosin. He underwent a left heart catheterization on the that showed minimal coronary artery disease. He also found to have a mild to moderate aortic valve stenosis. 1. acute HFrEF: EF 30%. on metoprolol succinate. No ACEi/ARB given kidney disease. fluid restriction 1500cc/day. 2. NSTEMI: likely type 2, demand. Troponins peaked at 1.51. [facility] cath 02/08: patent stents. supportive mgmt. 3. URSULA on CKD 4: on dialysis MWF. tunnelled cath placed. 4. Acute hypoxic respiratory failure: 2/2 CHF. improving. wean oxygen. check ambulatory pulse ox prior to discharge. 5. DM2: uncontrolled, high. resume insulin pump 6. COPD exacerbation: on methylpred through 02/09 7. VTE prophylaxis: LMWH. 8. Urinary retention: campa placed by . Follow up in 2 weeks. Continue tamsulosin.[] Patient Problems: Active and Suspected Problems (Last Reviewed 02/09/20 @ 11:[address] Aryan Hernandez MD) Urethral stricture (Acute) Prostate cancer (Acute) Acute respiratory failure (Acute) Anemia (Acute) Elevated troponin (Acute) - Physical Exam Vitals/I&O's: Vital Signs Temp Pulse Resp BP Pulse Ox 36.7 C 70 16 113/62 97 02/10/20 08:21 02/10/20 08:27 02/10/20 08:21 02/10/20 08:21 02/10/20 08:21 Oxygen Flow Rate (L/min) 2 Oxygen Delivery Method Nasal Cannula Weight: 71.3 kg Body Mass Index (BMI) 25.7 Finger Stick Blood Glucose 302 Intake and Output for Last 24 Hours 02/08/20 02/09/20 02/10/20 23:59 23:59 23:59 Intake Total 1500 / 1720 1052 / 1052 Output Total 850 / 1075 3300 / 3300 150 / 150 Balance 650 / 645 -2248 / -2248 -150 / -150 General: Cooperative, No apparent distress HEENT: Atraumatic, Normocephalic Oral: Moist Mucosa, No Gingival or Mucosal Lesions/ Ulcerations Neck: No Nodes, Trachea Midline Lungs: Clear to auscultation, Normal air movement, No rhonchi, No wheeze, No rales Cardiovascular: Regular rate, Regular Rhythm, Normal S1, Normal S2, No murmurs Abdomen: Bowel Sounds Present, Soft, Non Tender, Non-Distended Extremities: No edema, No Calf Tenderness Skin: No rashes, No breakdown Microbiology Past 72 Hours 02/03/20 11:35 Blood Culture (Wb) - Anticubital Right Blood Culture - Final No growth in 5 days. 02/03/20 11:41 Blood Culture (Wb) - No Site/Description Given Blood Culture - Final No growth in 5 days. Laboratory Results 02/09/20 05:52: Hemoglobin A1c 7.0 H 02/09/20 08:29: VBG pH 7.33, VBG pO2 33, VBG O2 Sat (Calc) 60, VBG O2 Content 24, VBG Base Excess -4 L, POC Mix VBG pCO2 Pt Tmp 42.4 02/09/20 08:32: VBG pH 7.33, VBG pO2 35, VBG O2 Sat (Calc) 62, VBG O2 Content 24, VBG Base Excess -3 L, POC Mix VBG pCO2 Pt Tmp 42.6 02/09/20 16:11: POC Glucose 122 H 02/09/20 19:13: POC Glucose 143 H 02/09/20 21:52: POC Glucose 235 H 02/10/20 06:08: Sodium 137, Potassium 3.1 L, Chloride 102, Carbon Dioxide 28.0, Anion Gap 7, BUN 45 H, Creatinine 2.47 H, Estim Creat Clear Calc 24.23, Est GFR (MDRD) Af Amer 33 L, Est GFR (MDRD) Non-Af 27 L, BUN/Creatinine Ratio 18.2, Glucose 120 H, Calcium 8.0 L 02/10/20 08:14: POC Glucose 92 Current Medications Acetaminophen (Tylenol) 650 mg PO Q6H PRN PRN PRN Reason: Pain Score 1-10/10 Albuterol Sulfate (Ventolin Aerosols) 2.5 mg INHALATION Q2H PRN PRN PRN Reason: SOB/Wheezing Last Admin: 02/05/20 00:26 Dose: 2.5 mg Documented by: Albuterol/Ipratropium (Duoneb) 3 ml INHALATION Q4H.RT [facility] Last Admin: 02/10/20 07:06 Dose: 3 ml Documented by: Atorvastatin Calcium (Lipitor) 80 mg PO QHS [facility] Last Admin: 02/09/20 22:03 Dose: 80 mg Documented by: Benzonatate (Tessalon Perle) 200 mg PO TID PRN PRN PRN Reason: cough Last Admin: 02/07/20 11:39 Dose: 200 mg Documented by: Bisacodyl (Dulcolax) 5 mg PO DAILY PRN PRN Reason: Constipation Brimonidine Tartrate (Brimonidine 0.2% 5ml Bottle) 1 drop LEFT EYE BID [facility] Last Admin: 02/10/20 08:17 Dose: 1 drop Documented by: Budesonide (Pulmicort Aerosol) 0.5 mg INHALATION BID.RT KELIN Buspirone HCl (Buspar) 5 mg PO TID PRN PRN PRN Reason: ANXIETY Last Admin: 02/09/20 22:03 Dose: 5 mg Documented by: Dextrose (D50w Syringe) 0 gm IV X1 PRN; Protocol PRN Reason: Hypoglycemia Enoxaparin Sodium (Lovenox) 30 mg SC DAILY [facility] Last Admin: 02/08/20 09:48 Dose: 30 mg Documented by: Ergocalciferol (Vitamin D) 50,000 unit PO Cunha@1000 [facility] Last Admin: 02/08/20 09:47 Dose: 50,000 unit Documented by: Furosemide (Lasix) 80 mg IV BID [facility] Last Admin: 02/09/20 22:02 Dose: 80 mg Documented by: Glucagon () 1 mg IM .X1 PRN PRN Reason: Hypoglycemia Guaifenesin (Mucinex) 1,200 mg PO BID [facility] Last Admin: 02/10/20 08:27 Dose: 1,200 mg Documented by: Heparin Sodium (Beef Lung) (Heparin 500 Unit/5 Ml (100/Ml)) 500 unit IV UD PRN PRN Reason: HEPARIN FLUSH Hydralazine HCl (Apresoline) 25 mg PO TID [facility] Last Admin: 02/10/20 06:21 Dose: 25 mg Documented by: Sodium Chloride () 1,000 mls @ 15 mls/hr IV .Q48H [facility] Last Admin: 02/09/20 09:44 Dose: Not Given Documented by: Sodium Chloride () 1,000 mls @ 15 mls/hr IV .Q48H [facility] Last Infusion: 02/09/20 09:15 Dose: 0 mls/hr Documented by: Insulin Glargine (Lantus (Bkc)) 45 units SC BID [facility] Last Admin: 02/10/20 08:42 Dose: 45 unit Documented by: Insulin Human Lispro (Humalog Kwikpen (Bk)) 0 unit SC ACHS [facility]; Protocol Last Admin: 02/10/20 08:14 Dose: Not Given Documented by: Insulin Human Lispro (Humalog Kwikpen (Bkc)) 10 unit SC TIDAC [facility] Last Admin: 02/10/20 08:43 Dose: 10 u Documented by: Isosorbide Mononitrate (Imdur) 60 mg PO DAILY [facility] Last Admin: 02/10/20 08:27 Dose: 60 mg Documented by: Labetalol HCl (Trandate) 5 mg IV X1 PRN PRN Reason: SBP > 160 prior to sheath pull Stop: 02/11/20 08:44 Latanoprost (Xalatan Opthalmic) 1 drop EACH EYE QHS [facility] Last Admin: 02/09/20 22:03 Dose: 1 drop Documented by: Metoprolol Succinate (Toprol Xl (Beta Antonette)) 12.5 mg PO DAILY [facility] Last Admin: 02/10/20 08:27 Dose: 12.5 mg Documented by: Nitroglycerin (Nitrostat) 0.4 mg SUBLINGUAL Q5M PRN PRN Reason: CARDIAC/CHEST PAIN Ondansetron HCl (Zofran) 4 mg IV Q8H PRN PRN PRN Reason: NAUSEA/VOMITING Sodium Chloride () 10 - 40 ml IV UD PRN PRN Reason: SALINE FLUSH Last Admin: 02/09/20 09:22 Dose: 10 ml Documented by: Sodium Chloride ([place] Nasal [place]) 2 spray NASAL Q4H PRN PRN PRN Reason: NASAL DRYNESS Last Admin: 02/09/20 07:06 Dose: 2 sprays Documented by: Tamsulosin HCl (Flomax) 0.4 mg PO DAILY@1730 [facility] Last Admin: 02/09/20 19:15 Dose: 0.4 mg Documented by: Timolol Maleate (Timoptic) 1 drop EACH EYE BID [facility] Last Admin: 02/10/20 08:18 Dose: 1 drop Documented by: Zolpidem Tartrate (Ambien (Generic)) 5 mg PO QHS PRN PRN PRN Reason: INSOMNIA Last Admin: 02/09/20 22:03 Dose: 5 mg Documented by: Discharge Diet: Low fat/ Low Cholesterol Discharge Activity: Return to Normal Activity May shower in (days): 1 Call your doctor if your incision/area has: Continuous Slow Oozing, Sudden Increased Bleeding, Increased Pain/ Swelling, Increased Redness, Foul Smelling Discharge Call your doctor if you observe: Fever of 101 or Higher Suture Line Care: Avoid Pulling/Pushing, Avoid Pinching/Bending Additional Dressing/Incision Instructions:: Change or remove dressing in 4 days. Leave steri-strips in place for 1 week. Home Medications: Medications to take at Discharge latanoprost 0.005 % eye drops 1 drp EACH EYE DAILY ml 11/15/17 albuterol sulfate 90 mcg/actuation aerosol inhaler 2 puff INHALATION Q6H PRN PRN #18 g 08/05/19 aspirin 81 mg tablet,delayed release 81 mg PO DAILY #90 tab 08/06/19 atorvastatin 80 mg tablet 80 mg PO QHS #90 tab 08/06/19 clopidogrel 75 mg tablet 75 mg PO DAILY #90 tab 08/06/19 hydralazine 25 mg tablet 25 mg PO TID #270 tab 08/06/19 isosorbide mononitrate 30 mg tablet,extended release 24 hr 30 mg PO DAILY #90 tab 08/06/19 metoprolol succinate 25 mg tablet,extended release 24 hr 12.5 mg PO DAILY #60 tab 08/06/19 insulin lispro 100 unit/mL subcutaneous solution See Rx Instructions SC DAILY ml 09/12/19 brimonidine 0.2 % eye drops 1 drp LEFT EYE BID ml 10/01/19 timolol 0.5 % eye drops 1 drp EACH EYE DAILY ml 10/01/19 blood sugar diagnostic See Rx Instructions .ROUTE .MEDSUPPLY #150 ea 11/24/19 fluticasone furoate 200 mcg-vilanterol 25 mcg/dose inhalation powder 1 inh INHALATION DAILY #3 device 01/26/20 umeclidinium 62.5 mcg/actuation blister powder for inhalation 1 inh INHALATION DAILY #3 ea 01/26/20 Bumetanide [Bumex] 2 mg PO BID 02/03/20 Ergocalciferol (Vitamin D2) [Vitamin D2] 50,000 unit PO CUNHA 02/03/20 Insulin Lispro [Humalog] See Protocol SQ DAILY 02/03/20 Tamsulosin HCl [Flomax] 0.4 mg PO DAILY@1730 #30 cap 02/10/20 Following Prescrptions Were Given to Patient: Tamsulosin HCl [Flomax] 0.4 mg PO DAILY@1730 #30 cap Transmission Status: Pending to [facility] Primary Care Physician: Chance Merida DO [NON-STAFF] - Within 2 Weeks Please Follow Up With: Aryan Hernandez MD When: 1 week Please Follow Up With: [facility]: MWF Patient Instructions: Hemodialysis, Creating a Hemodialysis Access, Emptying and Cleaning Your Urinary Catheter Bag, Caring for Your Leg Bag, ED Campa Catheter Care Disposition: Home Minutes spent on discharge:: 35 Patient Condition:: Good Medical Necessity - Tobacco Use Smoking Status: Former smoker Tobacco Use: Cigarettes Meaningful Use Info Meaningful Use Diagnoses (Choose all that apply): AMI, CHF - AMI/Post PCI/Angioplasty Aspirin given w/in 24hrs of arrival?: Yes ASA at discharge?: Yes Antiplatelet Therapy at Discharge:: No Statins at discharge?: No Reason statins not ordered:: Drug Interaction Fabrice/ARB at discharge?: No Reason Fabrice/ARB not ordered:: Moderate aortic stenosis Beta Antonette at discharge?: No Reason Beta Antonette not ordered:: Moderate aortic stenosis Done w/ Acute VT measure.: Yes - CHF FABRICE/ARB ordered at discharge?: No Reason FABRICE/ARB not ordered?: Moderate aortic stenosis Documented LVEF (%): 30 Inpatient E&M: 42970 Disch Hosp
--- NOTE | 2020-02-10 10:57 | CASEMGMT ---
This RN CM to room to discuss discharge plan with pt. Pt states no need for any further resources at this time. Pt states 'I just walked for a while in the [place] and it felt great.' Pt is aware to be at first dialysis OP treatment on Sunday02/11/20 at 1500 with a 1600 chair time, voices understanding. Pt asks if his will be able to stay at dialysis center and per Tanika at [facility], pt's will not be able to even come into facility. will need to drop off pt at door and then they will call her to come pick him up, pt voices understanding. Pt voices no further questions/concerns/needs at this time. [place] AILIN CM
[2020-02-10] MEDS: Insulin Lispro 100 UNIT/ML INSULN.PEN SC (11:38)
[2020-02-10 13:41] LABS: Bedside Glucose 160 mg/dL (70-110)
--- NOTE | 2020-02-11 13:13 | CASEMGMT ---
AILIN SHEPPARD Discharge Follow-up Phone Call: FAHEEM: Dion Strata: 3 Call Date: 02/11/2020 Discharge Date: 02/10/2020 Time of Call: 1315 Duration: 5 min Admitting Diagnosis: CHF Exacerbation AILIN SHEPPARD completed follow-up phone call after recent hospitalization. Patient states he has been really tired since returning home. Patient states his blood sugar was really low last night and had trouble keeping up and has not put his insulin pump back in. Today his blood sugar has been hire today. AILIN SHEPPARD instructed patient to follow up with Dr. Heredia regarding how to manage blood sugars. Patient voiced understanding. Patient states that he has no further questions or concerns at this time. Patient is aware of follow-up appts. Patient is to go to hemodialysis today at 1500. Patient had no further questions at this time.
== END 2020-02-10 13:55 | disposition home or self-care (01) | DRG 280 ==
LOC: ED 13:12 → PCU 13:33 → MS2 14:35 → PCU 15:42
PROVIDERS: Internal Medicine; Internal Medicine Cardiovascular Disease; Internal Medicine Nephrology; Surgery; Admitting Provider Student in an Organized Health Care Education/Training Program; Emergency Provider Emergency Medicine; PCP Family Medicine; Referring Provider Student in an Organized Health Care Education/Training Program
PROC: 0JH63XZ Insertion of Tunneled Vascular Access Device into Chest Subcutaneous Tissue and Fascia, Percutaneous Approach (ICD-10-PCS; principal; 2020-02-05 13:15)
DX: I13.0 Hypertensive heart and chronic kidney disease with heart failure and stage 1 through stage 4 chronic kidney disease, or unspecified chronic kidney disease (principal); J96.21 Acute and chronic respiratory failure with hypoxia; I21.A1 Myocardial infarction type 2; I50.23 Acute on chronic systolic (congestive) heart failure; N17.9 Acute kidney failure, unspecified; J44.1 Chronic obstructive pulmonary disease with (acute) exacerbation; N18.4 Chronic kidney disease, stage 4 (severe); D64.9 Anemia, unspecified; I25.10 Atherosclerotic heart disease of native coronary artery without angina pectoris; R33.9 Retention of urine, unspecified; N35.919 Unspecified urethral stricture, male, unspecified site; E11.22 Type 2 diabetes mellitus with diabetic chronic kidney disease; I35.0 Nonrheumatic aortic (valve) stenosis; E11.65 Type 2 diabetes mellitus with hyperglycemia; Z96.41 Presence of insulin pump (external) (internal); Z79.4 Long term (current) use of insulin; Z79.82 Long term (current) use of aspirin; Z79.02 Long term (current) use of antithrombotics/antiplatelets; Z95.5 Presence of coronary angioplasty implant and graft; Z87.891 Personal history of nicotine dependence; Z92.3 Personal history of irradiation; Z85.46 Personal history of malignant neoplasm of prostate; Z99.81 Dependence on supplemental oxygen
CPT/HCPCS: 36415; 36600; 71045; 77001; 80048; 80076; 82274; 82728; 82803; 82962; 83036; 83540; 83550; 83605; 83735; 83880; 84100; 84484; 85025; 85610; 85730; 86704; 86706; 86850; 86900; 86901; 86920; 86922; 87040; 87340; 87804; 87807; 90937; 93005; 93306; 93460; 94002; 94003; 94640; 97116; 97162; 97166; 97530; 97535; 99285; J7030; J7040; P9016; Q9957; Q9967; A4216; C1750; C1751; C1769; C1894; G0257; J1940

== ENCOUNTER → 2020-03-23 09:43 | Outpatient (CLI) | payer MEDICARE, BC, SELFPAY ==
[2020-02-24 13:06] VITALS: BMI 25.7
[2020-03-18 09:42] VITALS: BMI 25.7
--- NOTE | 2020-03-23 09:47 | VDUE_ITS ---
Reason For Study: ESRD Right Arm Left Arm Right cephalic vein is compressible. Left cephalic vein is compressible. Right Cephalic Vein at the shoulder Left Cephalic Vein at the shoulder measures .2 x .24 cm. measures .15 x .15 cm. Right Cephalic Vein mid bicep measures .16 Left Cephalic Vein at mid bicep measures .18 x .19 cm. x .18 cm. Right Cephalic Vein above antecub Left Cephalic Vein above antecub measures .27 measures .18 x .18 cm. x .28 cm. Right Cephalic Vein below antecub Left Cephalic Vein below antecub measures .21 measures .21 x .22 cm. x .24 cm. Right Cephalic Vein in the forearm Left Cephalic Vein in the forearm measures .2 measures .17 x .19 cm. x .2 cm. Right Cephalic Vein at the wrist measures .13 Left Cephalic Vein at the wrist measures .18 x .14 cm. x .2 cm. Right basilic vein is compressible. Left basilic vein is compressible. Right Basilic Vein mid bicep measures .36 Basilic vein at bicep measures .26 x .26 cm. x .41 cm. Basilic vein above antecub measures .28 x .28 Right Basilic Vein above antecub measures .23 cm. x .23 cm. Basilc V below this level is too small to Basilic V below this level is too small to assess. assess. Brachial artery .51 x .50 cm. Brachial artery .52 x .54 cm. Brachial artery 54.2 cm/s. Brachial artery 54.2 cm/s. Radial artery .24 x .26 cm. Radial artery .28 x .29 cm. Radial artery 50.3 cm/s. Radial artery 67.3 cm/s. Interpretation Summary Patent and compressible bilateral upper extremity cephalic and basilic veins. Small cephalic veins throughout bilateral upper extremities. Adequate though smaller than normal bilateral upper arm basilic veins Too small to measure bilateral forearm basilic veins Normal bilateral radial and brachial artery diameter and flow Ordering Physician: Allison Reyes Performed By: Raúl Richards RVT ?
== END ==
PROVIDERS: PCP Family Medicine; Referring Provider Internal Medicine Nephrology; Visit Provider Internal Medicine Nephrology
DX: Z01.818 Encounter for other preprocedural examination (principal); N18.6 End stage renal disease
CPT/HCPCS: 93970; 93971

== ENCOUNTER 2020-03-25 08:00 | Day surgery (SDC) | payer MEDICARE, BC, SELFPAY ==
[2020-03-18 09:42] VITALS: BMI 25.7
--- NOTE | 2020-03-18 11:10 | HP_ITS ---
Intake Vital Signs 03/18/20 Height 5 ft 8 in 03/18/20 Weight: 153 lb 4 oz 03/18/20 BMI 23.3 03/18/20 BP 146/70 H 03/18/20 Blood Pressure Location Rt brachial 03/18/20 Position Sitting 03/18/20 Respiration 22 H 03/18/20 Pulse 82 03/18/20 Pulse Oximetry (%) 92 03/18/20 Oxygen Delivery Method nasal canula Intake Visit Reasons: UPDATE H&P CATH EXCHANGE Chief Complaint: update H&P for cath exchange Trip Follower Required: No Is patient in pain?: No Allergies amoxicillin [From Augmentin] Allergy (Unknown, Verified 03/18/20 09:37) Unknown clavulanic acid [From Augmentin] Allergy (Unknown, Verified 03/18/20 09:37) Unknown Sulfa (Sulfonamide Antibiotics) Allergy (Unknown, Verified 03/18/20 09:37) Unknown Medications latanoprost 0.005 % eye drops 1 drp EACH EYE DAILY ml 11/15/17 [History Confirmed 03/18/20] albuterol sulfate 90 mcg/actuation aerosol inhaler 2 puff INHALATION Q6H PRN PRN #18 g 08/05/19 [Rx Confirmed 03/18/20] aspirin 81 mg tablet,delayed release 81 mg PO DAILY #90 tab 08/06/19 [Rx Confirmed 03/18/20] atorvastatin 80 mg tablet 80 mg PO QHS #90 tab 08/06/19 [Rx Confirmed 03/18/20] clopidogrel 75 mg tablet 75 mg PO DAILY #90 tab 08/06/19 [Rx Confirmed 03/18/20] hydralazine 25 mg tablet 25 mg PO TID #270 tab 08/06/19 [Rx Confirmed 03/18/20] isosorbide mononitrate 30 mg tablet,extended release 24 hr 30 mg PO DAILY #90 tab 08/06/19 [Rx Confirmed 03/18/20] metoprolol succinate 25 mg tablet,extended release 24 hr 12.5 mg PO DAILY #60 tab 08/06/19 [Rx Confirmed 03/18/20] insulin lispro 100 unit/mL subcutaneous solution See Rx Instructions SC DAILY ml 09/12/19 [History Confirmed 03/18/20] brimonidine 0.2 % eye drops 1 drp LEFT EYE BID ml 10/01/19 [History Confirmed 03/18/20] timolol 0.5 % eye drops 1 drp EACH EYE DAILY ml 10/01/19 [History Confirmed 03/18/20] fluticasone furoate 200 mcg-vilanterol 25 mcg/dose inhalation powder 1 inh INHALATION DAILY #3 device 01/26/20 [Rx Confirmed 03/18/20] umeclidinium 62.5 mcg/actuation blister powder for inhalation 1 inh INHALATION DAILY #3 ea 01/26/20 [Rx Confirmed 03/18/20] Bumetanide [Bumex] 2 mg PO BID 02/03/20 [History Confirmed 03/18/20] Ergocalciferol (Vitamin D2) [Vitamin D2] 50,000 unit PO CUNHA 02/03/20 [History Confirmed 03/18/20] Tamsulosin HCl [Flomax] 0.4 mg PO DAILY@1730 #30 cap 02/10/20 [Rx Confirmed 03/18/20] [facility] Medical History Paroxysmal atrial fibrillation (Chronic 06/2019) Acute systolic (congestive) heart failure (Chronic) Ischemic cardiomyopathy (Chronic) NSVT (nonsustained ventricular tachycardia) (Chronic) Atherosclerosis of coronary artery of [place] heart without angina pectoris (Chronic) (HFpEF) heart failure with preserved ejection fraction (Chronic) Hyperlipidemia (Chronic) Essential (primary) hypertension (Chronic) Mobitz type I Wenckebach atrioventricular block (Chronic) History of non-ST elevation myocardial infarction (NSTEMI) (Resolved 06/25/19) Incomplete right bundle branch block (Chronic) Pulmonary nodule (Chronic) Chronic hypoxemic respiratory failure (Chronic) COPD (chronic obstructive pulmonary disease) (Chronic) Chronic steroid use (Acute) Dialysis patient (Acute) 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 (Acute) Hyponatremia (Acute) Overweight (Acute) Pedal edema (Acute) Allergic rhinitis (Chronic) Anemia (Chronic) Anemia (Chronic) Benign localized hyperplasia of prostate (Chronic) CKD (chronic kidney disease) stage 4, GFR 15-29 ml/min (Chronic) COPD (chronic obstructive pulmonary disease) (Chronic) Carpal tunnel syndrome (Chronic) Chronic allergic rhinitis (Chronic) Chronic otitis media (Chronic) Epistaxis (Chronic) Former smoker (Chronic) GERD (gastroesophageal reflux disease) (Chronic) GI bleed (Chronic 06/28/19) History of prostate cancer (Chronic) 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) Low back pain (Chronic) Neuralgia (Chronic) Nonallopathic lesion of lumbar region (Chronic) Nonallopathic lesion of rib cage (Chronic) Nonallopathic lesion of sacral region (Chronic) Nonallopathic lesion of thoracic region, not elsewhere classified (Chronic) Otalgia (Chronic) Otitis externa (Chronic) PVD (peripheral vascular disease) (Chronic) Pain in lower limb (Chronic) Peripheral vascular insufficiency (Chronic) Thoracic back pain (Chronic) Thoracic outlet syndrome (Chronic) Type I diabetes mellitus (Chronic) Vitamin D deficiency (Chronic) post inflammatory pulmonary fibrosis (Chronic) Constipation (Resolved) Serous otitis media (Resolved) Wax in ear (Resolved) Reactive airway disease (Inactive) Surgical History History of left heart catheterization (Chronic 02/09/20) History of coronary artery stent placement (Resolved 06/29/19) H/O inguinal hernia repair (Resolved) H/O prostate biopsy (Resolved) History of appendectomy (Resolved) History of carpal tunnel surgery of left wrist (Resolved) S/P bilateral foot surgery (Resolved) S/P rotator cuff repair (Resolved) Family History Sister Diabetes Father Heart disease Social History (Updated 03/18/20 @ 11:10 by Mary Chatman PA-C) Smoking Status: Former smoker quit date: 11/12/13 pack-years: 55 how long ago did patient quit smokin years ago second hand exposure: No alcohol intake: never substance use type: does not use caffeine: Yes Type: coffee Number of servings: 1 HPI HPI HPI: DIVYA HUSAIN, is a 75 M who presents to the office today for HPI HPI Surgical H&P: Yes HPI: DIVYA HUSAIN, is a 75 M who presents to the office today for exchange of dialysis chest catheter. Patient had a right chest catheter placed in [facility] in December. Patient noted he no longer required dialysis. Dr. Bazzi removed the chest catheter in the office. Patient was then hospitalized again in January at [facility]. Patient had a heart cath which in turn needed to have dialysis catheters replaced by Dr. Bazzi on 3/26/20. Patient is on dialysis M, W, and F. Dialysis has noted decreased flow rate. Patient states he started dialysis on Sunday and then the catheter completely stopped working. He noted they inserted a blood thinner through the catheter, he had to sit for a period of time. When they went to use the catheter, it would not work and they had to send the patient home early. Patient noted on Sunday and Sunday the catheter worked fine. Per patient, the chest catheter has malfunctioned more than it has worked. Per the dialysis center, the functioning is due to positioning especially due to the patient not being able to lay flat. Patient is scheduled for vein mapping on 03/[address] Bazzi for fistula creation on 03/30. Patient has a history of COPD, A fib. and previous [place]. He is currently on oxygen via nasal canula. ROS General General: Yes fatigue; no weight change, appetite, colon cancer, breast cancer or weakness HEENT HEENT: No difficulty swallowing, eye injury, eye surgery, swollen glands or hoarseness Endo Endocrine: Yes diabetes mellitus; no thyroid disease, thyroid cancer, Hair loss, heat intolerance or cold intolerance Musc Musculoskeletal: Yes arthritis; no back problems, rheumatoid arthritis, gout or joint pain Cardio Cardiovascular: Yes heart disease, high blood pressure, heart attack, heart stent and shortness of breat with exertion; no murmur, pacemaker, atrial fibrillation, palpitations or chest pain Psych Psychiatric: No depression, anxiety or hearing voices Resp Respiratory: Yes shortness of breath, No sleep apnea, No cough, Yes COPD, No asthma, No emphysema, No wheezing Gastro Gastrointestinal: No abdominal pain, No nausea or vomiting, No diarrhea, No constipation, No blood in stool, No acid reflux, No hemorrhoids, No ulcers, No gallbladder problem, No black,tarry stools Bhupinder Hematologic: No blood thinners, No blood disorders, No bleeding, Yes anemia, No blood clots Neuro Neurologic: No weakness Exam Const General: cooperative, healthy appearing, comfortable, no acute distress [facility] Head: normal to inspection Eyes General: appearance normal, both eyes and all related structures Neck Neck: normal visual inspection Neck mass: No Chest Other: Right chest- current indwelling chest catheter. No erythema or infection noted. Resp Effort & Inspection: normal respiratory effort Auscultation: clear to auscultation bilaterally Cardio Rate: regular rate Rhythm: regular rhythm Heart Sounds: no murmurs GI Inspection: normal to inspection Palpation: soft Auscultation: normal bowel sounds Skin General: no rashes or lesions noted Neuro General: no focal motor deficits, CN's II-XI intact bilaterally Extrem General: normal to inspection Psych Appearance: grossly normal Affect: normal affect Assessment & Plan Problems 1. Stage 5 chronic kidney disease not on chronic dialysis N18.5 Plan I believe it is reasonable to proceed with a catheter exchange due to the patient requiring continued dialysis while his fistula is recovering. I have also explained it is more reasonable to schedule this electively instead of on an emergent basis. Patient and agreed. Dr. Bazzi will plan to perform a left dialysis chest catheter placement and removal of the right chest catheter. Patient is also aware that Dr. Bazzi may decide to exchange the right chest catheter and replace the chest catheter back in the same area. Procedure details, risks and benefits have been explained to the patient and his . Patient is scheduled for vein mapping on 03/23 and consultation for fistula creation on 03/30. Patient has had the opportunity to ask and have questions answered. Patient verbally understands and agrees with the plan. Patient is to hold his Plavix for 3 days prior to the procedure. He may continue his aspirin. Coding Level of Care Code Off vis,est,level 3 Diagnoses Stage 5 chronic kidney disease not on chronic dialysis N18.5 ??Chronic kidney disease stage: stage 5, not on chronic dialysis Time Spent (min) 03/18/20 1110 <Electronically signed by Mary loera PA-C> Date _ Mary Chatman PA-C
--- NOTE | 2020-03-23 15:22 | EKG12_ITS ---
Test Reason : PRE OP Blood Pressure : / mmHG Vent. Rate : 083 BPM Atrial Rate : 083 BPM P-R Int : 302 ms QRS Dur : 096 ms QT Int : 394 ms P-R-T Axes : 031 -62 137 degrees QTc Int : 462 ms Sinus rhythm with 1st degree A-V block Left anterior fascicular block Left ventricular hypertrophy with repolarization abnormality Inferior infarct , age undetermined Abnormal ECG Confirmed by EDDA SPAULDING, MEDARDO ([id number]), book editor MUNA HASSAN ([id number]) on 03/24/2020 10:18:21 AM Referred By: Jose Elias Bazzi Confirmed By:MEDARDO BAÑUELOS MD
[2020-03-23 16:22] LABS: Hematocrit 36.5 % (40-54); Hemoglobin 11.2 g/dL (13.0-16.5); Mean Corp Hgb Conc 30.7 g/dL (32-36); Mean Corpuscular Hgb 28.6 pg (27.0-32.0); Mean Corpuscular Volume 93.1 fL (80-94); Mean Platelet Vol. 10.9 fl (6.2-12.0); Platelet Count 187 K/mm3 (150-450); RBC Distribution Width CV 14.9 % (11.6-14.6); RBC Distribution Width SD 50.7 fl (35.1-43.9); Red Blood Count 3.92 M/mm3 (4.6-6.2); White Blood Count 6.5 K/mm3 (4.4-11.0)
[2020-03-23 16:39] LABS: Anion Gap 7 (5-15); BUN 43 mg/dL (7-18); BUN/Creat Ratio 15.1 RATIO (10-20); Calcium,Total 8.8 mg/dL (8.5-10.1); Chloride 97 mmol/L (98-107); Creatinine, Serum 2.84 mg/dL (0.70-1.30); EST Glomerular Filtration Rate 23 mL/min (>60); Est Glom Filt Rate - Afr Amer 28 mL/min (>60); Glucose 87 mg/dL (74-106); Potassium 3.7 mmol/L (3.5-5.1); Sodium Level 137 mmol/L (136-145)
[2020-03-25] VITALS (9 sets, daily range): BP systolic 111–133; BP diastolic 60–70; PULSE 65–74; RESP 14–17; TEMP 36.1–36.9; O2SAT 99–100; BMI 24.2
[2020-03-25] MEDS: 0.45% Normal Saline 1,000 ML 15 ML IV (08:42)
[2020-03-25 08:51] LABS: Bedside Glucose 224 mg/dL (70-110)
--- NOTE | 2020-03-25 09:34 | HP.PCM_ITS ---
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 Required: No Is patient in pain?: No Allergies amoxicillin [From Augmentin] Allergy (Unknown, Verified 03/18/20 09:37) Unknown clavulanic acid [From Augmentin] Allergy (Unknown, Verified 03/18/20 09:37) Unknown Sulfa (Sulfonamide Antibiotics) Allergy (Unknown, Verified 03/18/20 09:37) Unknown Medications latanoprost 0.005 % eye drops 1 drp EACH EYE DAILY ml 11/15/17 [History Confirmed 03/18/20] albuterol sulfate 90 mcg/actuation aerosol inhaler 2 puff INHALATION Q6H PRN PRN #18 g 08/05/19 [Rx Confirmed 03/18/20] aspirin 81 mg tablet,delayed release 81 mg PO DAILY #90 tab 08/06/19 [Rx Confirmed 03/18/20] atorvastatin 80 mg tablet 80 mg PO QHS #90 tab 08/06/19 [Rx Confirmed 03/18/20] clopidogrel 75 mg tablet 75 mg PO DAILY #90 tab 08/06/19 [Rx Confirmed 03/18/20] hydralazine 25 mg tablet 25 mg PO TID #270 tab 08/06/19 [Rx Confirmed 03/18/20] isosorbide mononitrate 30 mg tablet,extended release 24 hr 30 mg PO DAILY #90 tab 08/06/19 [Rx Confirmed 03/18/20] metoprolol succinate 25 mg tablet,extended release 24 hr 12.5 mg PO DAILY #60 tab 08/06/19 [Rx Confirmed 03/18/20] insulin lispro 100 unit/mL subcutaneous solution See Rx Instructions SC DAILY ml 09/12/19 [History Confirmed 03/18/20] brimonidine 0.2 % eye drops 1 drp LEFT EYE BID ml 10/01/19 [History Confirmed 03/18/20] timolol 0.5 % eye drops 1 drp EACH EYE DAILY ml 10/01/19 [History Confirmed 03/18/20] fluticasone furoate 200 mcg-vilanterol 25 mcg/dose inhalation powder 1 inh INHALATION DAILY #3 device 01/26/20 [Rx Confirmed 03/18/20] umeclidinium 62.5 mcg/actuation blister powder for inhalation 1 inh INHALATION DAILY #3 ea 01/26/20 [Rx Confirmed 03/18/20] Bumetanide [Bumex] 2 mg PO BID 02/03/20 [History Confirmed 03/18/20] Ergocalciferol (Vitamin D2) [Vitamin D2] 50,000 unit PO CUNHA 02/03/20 [History Confirmed 03/18/20] Tamsulosin HCl [Flomax] 0.4 mg PO DAILY@1730 #30 cap 02/10/20 [Rx Confirmed 03/18/20] [facility] Medical History Paroxysmal atrial fibrillation (Chronic 06/2019) Acute systolic (congestive) heart failure (Chronic) Ischemic cardiomyopathy (Chronic) NSVT (nonsustained ventricular tachycardia) (Chronic) Atherosclerosis of coronary artery of [place] heart without angina pectoris (Chronic) (HFpEF) heart failure with preserved ejection fraction (Chronic) Hyperlipidemia (Chronic) Essential (primary) hypertension (Chronic) Mobitz type I Wenckebach atrioventricular block (Chronic) History of non-ST elevation myocardial infarction (NSTEMI) (Resolved 06/25/19) Incomplete right bundle branch block (Chronic) Pulmonary nodule (Chronic) Chronic hypoxemic respiratory failure (Chronic) COPD (chronic obstructive pulmonary disease) (Chronic) Chronic steroid use (Acute) Dialysis patient (Acute) 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 (Acute) Hyponatremia (Acute) Overweight (Acute) Pedal edema (Acute) Allergic rhinitis (Chronic) Anemia (Chronic) Anemia (Chronic) Benign localized hyperplasia of prostate (Chronic) CKD (chronic kidney disease) stage 4, GFR 15-29 ml/min (Chronic) COPD (chronic obstructive pulmonary disease) (Chronic) Carpal tunnel syndrome (Chronic) Chronic allergic rhinitis (Chronic) Chronic otitis media (Chronic) Epistaxis (Chronic) Former smoker (Chronic) GERD (gastroesophageal reflux disease) (Chronic) GI bleed (Chronic 06/28/19) History of prostate cancer (Chronic) half-way (current) use of insulin (Chronic) Low back pain (Chronic) Neuralgia (Chronic) Nonallopathic lesion of lumbar region (Chronic) Nonallopathic lesion of rib cage (Chronic) Nonallopathic lesion of sacral region (Chronic) Nonallopathic lesion of thoracic region, not elsewhere classified (Chronic) Otalgia (Chronic) Otitis externa (Chronic) PVD (peripheral vascular disease) (Chronic) Pain in lower limb (Chronic) Peripheral vascular insufficiency (Chronic) Thoracic back pain (Chronic) Thoracic outlet syndrome (Chronic) Type I diabetes mellitus (Chronic) Vitamin D deficiency (Chronic) post inflammatory pulmonary fibrosis (Chronic) Constipation (Resolved) Serous otitis media (Resolved) Wax in ear (Resolved) Reactive airway disease (Inactive) Surgical History History of left heart catheterization (Chronic 02/09/20) History of coronary artery stent placement (Resolved 06/29/19) H/O inguinal hernia repair (Resolved) H/O prostate biopsy (Resolved) History of appendectomy (Resolved) History of carpal tunnel surgery of left wrist (Resolved) S/P bilateral foot surgery (Resolved) S/P rotator cuff repair (Resolved) Family History Sister Diabetes Father Heart disease Social History (Updated 03/18/20 @ 11:10 by Mary Chatman PA-C) Smoking Status: Former smoker quit date: 11/12/13 pack-years: 53 how long ago did patient quit smokin years ago second hand exposure: No alcohol intake: never substance use type: does not use caffeine: Yes Type: coffee Number of servings: 1 HPI HPI HPI: DIVYA HUSAIN, is a 75 M who presents to the office today for HPI HPI Surgical H&P: Yes HPI: DIVYA HUSAIN, is a 75 M who presents to the office today for exchange of dialysis chest catheter. Patient had a right chest catheter placed in [facility] in December. Patient noted he no longer required dialysis. Dr. Bazzi removed the chest catheter in the office. Patient was then hospitalized again in January at [place]. Patient had a heart cath which in turn needed to have dialysis catheters replaced by Dr. Bazzi on 02/05/20. Patient is on dialysis M, W, and F. Dialysis has noted decreased flow rate. Patient states he started dialysis on Sunday and then the catheter completely stopped working. He noted they inserted a blood thinner through the catheter, he had to sit for a period of time. When they went to use the catheter, it would not work and they had to send the patient home early. Patient noted on Sunday and Sunday the catheter worked fine. Per patient, the chest catheter has malfunctioned more than it has worked. Per the dialysis center, the functioning is due to positioning especially due to the patient not being able to lay flat. Patient is scheduled for vein mapping on 03/[address] Bazzi for fistula creation on 03/30. Patient has a history of COPD, A fib. and previous NM. He is currently on oxygen via nasal canula. ROS General General: Yes fatigue; no weight change, appetite, colon cancer, breast cancer or weakness HEENT HEENT: No difficulty swallowing, eye injury, eye surgery, swollen glands or hoarseness Endo Endocrine: Yes diabetes mellitus; no thyroid disease, thyroid cancer, Hair loss, heat intolerance or cold intolerance Musc Musculoskeletal: Yes arthritis; no back problems, rheumatoid arthritis, gout or joint pain Cardio Cardiovascular: Yes heart disease, high blood pressure, heart attack, heart stent and shortness of breat with exertion; no murmur, pacemaker, atrial fibrillation, palpitations or chest pain Psych Psychiatric: No depression, anxiety or hearing voices Resp Respiratory: Yes shortness of breath, No sleep apnea, No cough, Yes COPD, No asthma, No emphysema, No wheezing Gastro Gastrointestinal: No abdominal pain, No nausea or vomiting, No diarrhea, No constipation, No blood in stool, No acid reflux, No hemorrhoids, No ulcers, No gallbladder problem, No black,tarry stools Bhupinder Hematologic: No blood thinners, No blood disorders, No bleeding, Yes anemia, No blood clots Neuro Neurologic: No weakness Exam Const General: cooperative, healthy appearing, comfortable, no acute distress [facility] Head: normal to inspection Eyes General: appearance normal, both eyes and all related structures Neck Neck: normal visual inspection Neck mass: No Chest Other: Right chest- current indwelling chest catheter. No erythema or infection noted. Resp Effort & Inspection: normal respiratory effort Auscultation: clear to auscultation bilaterally Cardio Rate: regular rate Rhythm: regular rhythm Heart Sounds: no murmurs GI Inspection: normal to inspection Palpation: soft Auscultation: normal bowel sounds Skin General: no rashes or lesions noted Neuro General: no focal motor deficits, CN's II-XI intact bilaterally Extrem General: normal to inspection Psych Appearance: grossly normal Affect: normal affect Assessment & Plan Problems 1. Stage 5 chronic kidney disease not on chronic dialysis N18.5 Plan I believe it is reasonable to proceed with a catheter exchange due to the patient requiring continued dialysis while his fistula is recovering. I have also explained it is more reasonable to schedule this electively instead of on an emergent basis. Patient and agreed. Dr. Bazzi will plan to perform a left dialysis chest catheter placement and removal of the right chest catheter. Patient is also aware that Dr. Bazzi may decide to exchange the right chest catheter and replace the chest catheter back in the same area. Procedure details, risks and benefits have been explained to the patient and his . Patient is scheduled for vein mapping on 03/23 and consultation for fistula creation on 03/30. Patient has had the opportunity to ask and have questions answered. Patient verbally understands and agrees with the plan. Patient is to hold his Plavix for 3 days prior to the procedure. He may continue his aspirin. Coding Level of Care Code Off vis,est,level 3 Diagnoses Stage 5 chronic kidney disease not on chronic dialysis N18.5 ??Chronic kidney disease stage: stage 5, not on chronic dialysis Time Spent (min) 15 03/18/20 1110 <Electronically signed by Mary loera PA-C> Date _ Mary Chatman PA-C I have re-examined the patient. There are no clinical changes since date of exam. The patient has had discussion regarding COVID-19 pandemic. He is aware that the [facility] administration suggests a low local incidence. The patient is in need of ongoing hemodialysis and the aspects catheter is his site. It is felt that the risk is appropriate.
--- NOTE | 2020-03-25 09:59 | DCINST_ITS ---
Discharge Diet: Renal Diet Discharge Activity: Return to Normal Activity, May Not Shower Additional Dressing/Incision Instructions:: Dialysis center will assist with dressing changes and dialysis catheter management Allergies/Adverse Reactions: Allergies amoxicillin [From Augmentin] Allergy (Unknown, Verified 03/23/20 14:12) Unknown clavulanic acid [From Augmentin] Allergy (Unknown, Verified 03/23/20 14:12) Unknown Sulfa (Sulfonamide Antibiotics) Allergy (Unknown, Verified 03/23/20 14:12) Unknown Medications to take at Discharge latanoprost 0.005 % eye drops 1 drp EACH EYE DAILY ml 11/15/17 albuterol sulfate 90 mcg/actuation aerosol inhaler 2 puff INHALATION Q6H PRN PRN #18 g 08/05/19 aspirin 81 mg tablet,delayed release 81 mg PO DAILY #90 tab 08/06/19 atorvastatin 80 mg tablet 80 mg PO QHS #90 tab 08/06/19 clopidogrel 75 mg tablet 75 mg PO DAILY #90 tab 08/06/19 isosorbide mononitrate 30 mg tablet,extended release 24 hr 30 mg PO DAILY #90 tab 08/06/19 brimonidine 0.2 % eye drops 1 drp LEFT EYE BID ml 10/01/19 timolol 0.5 % eye drops 1 drp EACH EYE DAILY ml 10/01/19 Ergocalciferol (Vitamin D2) [Vitamin D2] 50,000 unit PO CUNHA 02/03/20 insulin lispro 100 unit/mL subcutaneous solution See Rx Instructions SC DAILY #90 ml 03/22/20 Fluticasone/Vilanterol [Breo Ellipta 200-25 Mcg INH] 1 inh INHALATION DAILY 03/23/20 Hydralazine HCl 25 mg PO TID 03/23/20 Metoprolol Succinate [Toprol Xl] 12.5 mg PO DAILY 03/23/20 Umeclidinium [place] Inhaler [Incruse Ellipta Inhaler] 1 inh INHALATION DAILY 03/23/20 Orders to be completed after discharge: 12 Lead EKG [CVS] Time Frame: 03/25/20, Facility: [facility], Location: Cardiovascular Services Primary Care Physician: Sb Bolanos DO [Primary Care Provider] - Test Results: Test results from this visit will be discussed in further detail at your follow- up appointment, if applicable. Please Follow Up With: Jose Elias Bazzi MD - [phone] When: Appointment next week as already scheduled
[2020-03-25] MEDS: Bupivacaine Mpf 0.5% 30 ML VIAL (10:15)
[2020-03-25] MEDS: Heparin 10,000 UNITS/10 ML Vial 10000 UNITS (10:38)
--- NOTE | 2020-03-25 10:39 | OP.PCM_ITS ---
Problem List (1) Problem with dialysis access Status: Acute Qualifiers: Encounter type: initial encounter Qualified Code(s): T82.898A - Other specified complication of vascular prosthetic devices, implants and grafts, initial encounter Report of Operation Date of Procedure: 03/25/20 Pre-Operative Diagnosis: Malfunctioning right internal jugular tunneled dialysis catheters Post-Operative Diagnosis: Same Surgery/Procedure Performed:: Placement left internal jugular tunneled 23 cm pre-curved palindrome dialysis catheter. Reference [id number]. Lot #[id number]. Expiry date 06/18/2024. Removal right internal jugular tunneled dialysis catheter Description of Surgical Findings:: Timeout and informed consent was obtained. 75-year-old gentleman was taken to the operating room and placed supine on the table. He underwent monitored anesthesia care. Clindamycin 900 mg given intravenous preoperatively. Bilateral neck and chest were sterilely prepped and draped. 1% lidocaine mixed 50-50 with 0.5% Marcaine was used as a local anesthetic. Throughout the procedure total 20 cc was used. Under ultrasound guidance the left internal jugular vein was identified. Local was instilled under ultrasound guidance. Micropuncture needle was inserted in the left internal jugular vein under ultrasound guidance. Micropuncture wire inserted. Fluoroscopy demonstrated good position in the SVC. Local was instilled down upon the chest wall. An exit site was selected. The 23 cm pre-curved palindrome catheter was tunneled from the chest to the neck. Micropuncture sheath was placed. 035 J-wire was placed. Serial dilatation was performed. The sheath dilator was inserted under fluoroscopic control. The dilator and wire were removed. The catheter was advanced through the sheath. The sheath was split. The catheter was positioned so that the natural curvature of the pre-curve device was at the correct entrance position at the internal jugular vein. It aspirated easily. It was flushed with saline. It was flushed then with 2 cc heparinized saline per channel. The neck site was closed interrupted 5-0 Vicryl subdermal stitch. The catheter was secured the stenosis with a 3-0 nylon. Silver impregnated dressing was applied at the exit site and a Telfa OpSite at the neck site. Attention was drawn to the right chest. Local was instilled at the catheter exit site. Sharp and blunt dissection was used to identify the cuff. It was circumferentially dissected free. With direct pressure continuously held upon the tunnel site the catheter was removed. Direct pressure continued to be held until hemostasis was achieved. It is of note that there was some mild skin edema and erythema at the catheter exit site. There was no actual purulence. The patient was taken to the recovery room in satisfactory condition without apparent complication. Specimens none. Drains none. Blood loss minimal. Portable chest x-ray is pending. Jose Elias Bazzi M.D., F.A.C.S. Type of Anesthesia:: Local MAC Anesthesiologist: Harish Huddleston
--- NOTE | 2020-03-25 11:15 | RAD_ITS ---
STUDY: X-RAY CHEST REASON FOR EXAM: Male, 75 years old. REMOVED RIGHT DIALYSIS CATH, NEW LEFT SIDE DIALYSIS CATH PLACED TECHNIQUE: Single AP portable view of the chest. COMPARISON: Comparison is made with prior study February 05, 2020. FINDINGS: A right sided dialysis catheter as been placed with the tip in the midportion of the superior vena cava. Mild increased markings at the right lung base suggestive of a possible scarring. There is no demonstrated pleural abnormality. Normal size heart. Normal mediastinum and jessica. Normal visualized pulmonary arteries. There is atherosclerotic calcification of the aortic arch with tortuosity. There are diffuse degenerative changes of the visualized thoracic spine. Normal visualized ribs, clavicles, and shoulders. There is no demonstrated abnormality of the visualized soft tissue structures of the upper abdomen. RAD/Chest 1 View (Portable) IMPRESSION: The left-sided dialysis catheter as been placed with the tip in the midportion of the superior vena cava. Mild increased markings at the right lung base suggestive of atelectasis. Electronically Signed: Fabricio Shah, at 11:34 EDT , Service support ,
== END 2020-03-25 12:27 | disposition home or self-care (01) ==
LOC: SDC 08:01 → AC 08:01
PROVIDERS: PCP Family Medicine; Referring Provider Surgery; Visit Provider Surgery
PROC: (CPT 36558; principal; 2020-03-25 09:45)
DX: T82.898A Other specified complication of vascular prosthetic devices, implants and grafts, initial encounter (principal); E10.22 Type 1 diabetes mellitus with diabetic chronic kidney disease; I13.2 Hypertensive heart and chronic kidney disease with heart failure and with stage 5 chronic kidney disease, or end stage renal disease; N18.5 Chronic kidney disease, stage 5; I50.21 Acute systolic (congestive) heart failure; Z99.2 Dependence on renal dialysis; Z11.59 Encounter for screening for other viral diseases; I48.0 Paroxysmal atrial fibrillation; I47.1 Supraventricular tachycardia; I25.5 Ischemic cardiomyopathy; I25.10 Atherosclerotic heart disease of native coronary artery without angina pectoris; E78.00 Pure hypercholesterolemia, unspecified; I44.1 Atrioventricular block, second degree; I25.2 Old myocardial infarction; J84.10 Pulmonary fibrosis, unspecified; I73.9 Peripheral vascular disease, unspecified; G54.0 Brachial plexus disorders; K21.9 Gastro-esophageal reflux disease without esophagitis; Z86.2 Personal history of diseases of the blood and blood-forming organs and certain disorders involving the immune mechanism; Z87.19 Personal history of other diseases of the digestive system; Z85.46 Personal history of malignant neoplasm of prostate; Z95.5 Presence of coronary angioplasty implant and graft; Z79.4 Long term (current) use of insulin; Z79.02 Long term (current) use of antithrombotics/antiplatelets; Z79.82 Long term (current) use of aspirin; Z79.899 Other long term (current) drug therapy; Z87.891 Personal history of nicotine dependence
CPT/HCPCS: 00532; 36558; 36589; 36415; 71045; 76000; 80048; 82962; 85027; 87635; 93005; G2023; U0002

== ENCOUNTER 2020-04-20 05:40 | Day surgery (SDC) | payer MEDICARE, BC, SELFPAY ==
--- NOTE | 2020-03-18 11:10 | HP_ITS ---
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 Is patient in pain?: No Allergies amoxicillin [From Augmentin] Allergy (Unknown, Verified 03/18/20 09:37) Unknown clavulanic acid [From Augmentin] Allergy (Unknown, Verified 03/18/20 09:37) Unknown Sulfa (Sulfonamide Antibiotics) Allergy (Unknown, Verified 03/18/20 09:37) Unknown Medications latanoprost 0.005 % eye drops 1 drp EACH EYE DAILY ml 11/15/17 [History Confirmed 03/18/20] albuterol sulfate 90 mcg/actuation aerosol inhaler 2 puff INHALATION Q6H PRN PRN #18 g 08/05/19 [Rx Confirmed 03/18/20] aspirin 81 mg tablet,delayed release 81 mg PO DAILY #90 tab 08/06/19 [Rx Confirmed 03/18/20] atorvastatin 80 mg tablet 80 mg PO QHS #90 tab 08/06/19 [Rx Confirmed 03/18/20] clopidogrel 75 mg tablet 75 mg PO DAILY #90 tab 08/06/19 [Rx Confirmed 03/18/20] hydralazine 25 mg tablet 25 mg PO TID #270 tab 08/06/19 [Rx Confirmed 03/18/20] isosorbide mononitrate 30 mg tablet,extended release 24 hr 30 mg PO DAILY #90 tab 08/06/19 [Rx Confirmed 03/18/20] metoprolol succinate 25 mg tablet,extended release 24 hr 12.5 mg PO DAILY #60 tab 08/06/19 [Rx Confirmed 03/18/20] insulin lispro 100 unit/mL subcutaneous solution See Rx Instructions SC DAILY ml 09/12/19 [History Confirmed 03/18/20] brimonidine 0.2 % eye drops 1 drp LEFT EYE BID ml 10/01/19 [History Confirmed 03/18/20] timolol 0.5 % eye drops 1 drp EACH EYE DAILY ml 10/01/19 [History Confirmed 03/18/20] fluticasone furoate 200 mcg-vilanterol 25 mcg/dose inhalation powder 1 inh INHALATION DAILY #3 device 01/26/20 [Rx Confirmed 03/18/20] umeclidinium 62.5 mcg/actuation blister powder for inhalation 1 inh INHALATION DAILY #3 ea 01/26/20 [Rx Confirmed 03/18/20] Bumetanide [Bumex] 2 mg PO BID 02/03/20 [History Confirmed 03/18/20] Ergocalciferol (Vitamin D2) [Vitamin D2] 50,000 unit PO CUNHA 02/03/20 [History Confirmed 03/18/20] Tamsulosin HCl [Flomax] 0.4 mg PO DAILY@1730 #30 cap 02/10/20 [Rx Confirmed 03/18/20] [facility] Medical History Paroxysmal atrial fibrillation (Chronic 06/2019) Acute systolic (congestive) heart failure (Chronic) Ischemic cardiomyopathy (Chronic) NSVT (nonsustained ventricular tachycardia) (Chronic) Atherosclerosis of coronary artery of [place] heart without angina pectoris (Chronic) (HFpEF) heart failure with preserved ejection fraction (Chronic) Hyperlipidemia (Chronic) Essential (primary) hypertension (Chronic) Mobitz type I Wenckebach atrioventricular block (Chronic) History of non-ST elevation myocardial infarction (NSTEMI) (Resolved 06/25/19) Incomplete right bundle branch block (Chronic) Pulmonary nodule (Chronic) Chronic hypoxemic respiratory failure (Chronic) COPD (chronic obstructive pulmonary disease) (Chronic) Chronic steroid use (Acute) Dialysis patient (Acute) 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 (Acute) Hyponatremia (Acute) Overweight (Acute) Pedal edema (Acute) Allergic rhinitis (Chronic) Anemia (Chronic) Anemia (Chronic) Benign localized hyperplasia of prostate (Chronic) CKD (chronic kidney disease) stage 4, GFR 15-29 ml/min (Chronic) COPD (chronic obstructive pulmonary disease) (Chronic) Carpal tunnel syndrome (Chronic) Chronic allergic rhinitis (Chronic) Chronic otitis media (Chronic) Epistaxis (Chronic) Former smoker (Chronic) GERD (gastroesophageal reflux disease) (Chronic) GI bleed (Chronic 06/28/19) 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) Low back pain (Chronic) Neuralgia (Chronic) Nonallopathic lesion of lumbar region (Chronic) Nonallopathic lesion of rib cage (Chronic) Nonallopathic lesion of sacral region (Chronic) Nonallopathic lesion of thoracic region, not elsewhere classified (Chronic) Otalgia (Chronic) Otitis externa (Chronic) PVD (peripheral vascular disease) (Chronic) Pain in lower limb (Chronic) Peripheral vascular insufficiency (Chronic) Thoracic back pain (Chronic) Thoracic outlet syndrome (Chronic) Type I diabetes mellitus (Chronic) Vitamin D deficiency (Chronic) post inflammatory pulmonary fibrosis (Chronic) Constipation (Resolved) Serous otitis media (Resolved) Wax in ear (Resolved) Reactive airway disease (Inactive) Surgical History History of left heart catheterization (Chronic 02/09/20) History of coronary artery stent placement (Resolved 06/29/19) H/O inguinal hernia repair (Resolved) H/O prostate biopsy (Resolved) History of appendectomy (Resolved) History of carpal tunnel surgery of left wrist (Resolved) S/P bilateral foot surgery (Resolved) S/P rotator cuff repair (Resolved) Family History Sister Diabetes Father Heart disease Social History (Updated 03/18/20 @ 11:10 by Mary Chatman PA-C) Smoking Status: Former smoker quit date: 11/12/13 pack-years: 55 how long ago did patient quit smokin years ago second hand exposure: No alcohol intake: never substance use type: does not use caffeine: Yes Type: coffee Number of servings: 1 HPI HPI HPI: DIVYA HUSAIN, is a 75 M who presents to the office today for HPI HPI Surgical H&P: Yes HPI: DIVYA HUSAIN, is a 75 M who presents to the office today for exchange of dialysis chest catheter. Patient had a right chest catheter placed in [facility] in December. Patient noted he no longer required dialysis. Dr. Bazzi removed the chest catheter in the office. Patient was then hospitalized again in January at [facility]. Patient had a heart cath which in turn needed to have dialysis catheters replaced by Dr. Bazzi on 3/26/20. Patient is on dialysis M, W, and F. Dialysis has noted decreased flow rate. Patient states he started dialysis on Sunday and then the catheter completely stopped working. He noted they inserted a blood thinner through the catheter, he had to sit for a period of time. When they went to use the catheter, it would not work and they had to send the patient home early. Patient noted on Sunday and Sunday the catheter worked fine. Per patient, the chest catheter has malfunctioned more than it has worked. Per the dialysis center, the functioning is due to positioning especially due to the patient not being able to lay flat. Patient is scheduled for vein mapping on 03/[address] Bazzi for fistula creation on 03/30. Patient has a history of COPD, A fib. and previous [place]. He is currently on oxygen via nasal canula. ROS General General: Yes fatigue; no weight change, appetite, colon cancer, breast cancer or weakness HEENT HEENT: No difficulty swallowing, eye injury, eye surgery, swollen glands or hoarseness Endo Endocrine: Yes diabetes mellitus; no thyroid disease, thyroid cancer, Hair loss, heat intolerance or cold intolerance Musc Musculoskeletal: Yes arthritis; no back problems, rheumatoid arthritis, gout or joint pain Cardio Cardiovascular: Yes heart disease, high blood pressure, heart attack, heart stent and shortness of breat with exertion; no murmur, pacemaker, atrial fibrillation, palpitations or chest pain Psych Psychiatric: No depression, anxiety or hearing voices Resp Respiratory: Yes shortness of breath, No sleep apnea, No cough, Yes COPD, No asthma, No emphysema, No wheezing Gastro Gastrointestinal: No abdominal pain, No nausea or vomiting, No diarrhea, No constipation, No blood in stool, No acid reflux, No hemorrhoids, No ulcers, No gallbladder problem, No black,tarry stools Bhupinder Hematologic: No blood thinners, No blood disorders, No bleeding, Yes anemia, No blood clots Neuro Neurologic: No weakness Exam Const General: cooperative, healthy appearing, comfortable, no acute distress [facility] Head: normal to inspection Eyes General: appearance normal, both eyes and all related structures Neck Neck: normal visual inspection Neck mass: No Chest Other: Right chest- current indwelling chest catheter. No erythema or infection noted. Resp Effort & Inspection: normal respiratory effort Auscultation: clear to auscultation bilaterally Cardio Rate: regular rate Rhythm: regular rhythm Heart Sounds: no murmurs GI Inspection: normal to inspection Palpation: soft Auscultation: normal bowel sounds Skin General: no rashes or lesions noted Neuro General: no focal motor deficits, CN's II-XI intact bilaterally Extrem General: normal to inspection Psych Appearance: grossly normal Affect: normal affect Assessment & Plan Problems 1. Stage 5 chronic kidney disease not on chronic dialysis N18.5 Plan I believe it is reasonable to proceed with a catheter exchange due to the patient requiring continued dialysis while his fistula is recovering. I have also explained it is more reasonable to schedule this electively instead of on an emergent basis. Patient and agreed. Dr. Bazzi will plan to perform a left dialysis chest catheter placement and removal of the right chest catheter. Patient is also aware that Dr. Bazzi may decide to exchange the right chest catheter and replace the chest catheter back in the same area. Procedure details, risks and benefits have been explained to the patient and his . Patient is scheduled for vein mapping on 03/23 and consultation for fistula creation on 03/30. Patient has had the opportunity to ask and have questions answered. Patient verbally understands and agrees with the plan. Patient is to hold his Plavix for 3 days prior to the procedure. He may continue his aspirin. Coding Level of Care Code Off vis,est,level 3 Diagnoses Stage 5 chronic kidney disease not on chronic dialysis N18.5 ??Chronic kidney disease stage: stage 5, not on chronic dialysis Time Spent (min) 03/18/20 1110 <Electronically signed by Mary loera PA-C> Date _ Mary Chatman PA-C
--- NOTE | 2020-03-30 03:40 | HP_ITS ---
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 Is patient in pain?: No Allergies amoxicillin [From Augmentin] Allergy (Unknown, Verified 03/30/20 14:46) Unknown clavulanic acid [From Augmentin] Allergy (Unknown, Verified 03/30/20 14:46) Unknown Sulfa (Sulfonamide Antibiotics) Allergy (Unknown, Verified 03/30/20 14:46) Unknown Medications latanoprost 0.005 % eye drops 1 drp EACH EYE DAILY ml 11/15/17 [History Confirmed 03/30/20] albuterol sulfate 90 mcg/actuation aerosol inhaler 2 puff INHALATION Q6H PRN PRN #18 g 08/05/19 [Rx Confirmed 03/30/20] aspirin 81 mg tablet,delayed release 81 mg PO DAILY #90 tab 08/06/19 [Rx Confirmed 03/30/20] atorvastatin 80 mg tablet 80 mg PO QHS #90 tab 08/06/19 [Rx Confirmed 03/30/20] clopidogrel 75 mg tablet 75 mg PO DAILY #90 tab 08/06/19 [Rx Confirmed 03/30/20] isosorbide mononitrate 30 mg tablet,extended release 24 hr 30 mg PO DAILY #90 tab 08/06/19 [Rx Confirmed 03/30/20] brimonidine 0.2 % eye drops 1 drp LEFT EYE BID ml 10/01/19 [History Confirmed 03/30/20] timolol 0.5 % eye drops 1 drp EACH EYE DAILY ml 10/01/19 [History Confirmed 03/30/20] Ergocalciferol (Vitamin D2) [Vitamin D2] 50,000 unit PO CUNHA 02/03/20 [History Confirmed 03/30/20] insulin lispro 100 unit/mL subcutaneous solution See Rx Instructions SC DAILY #90 ml 03/22/20 [Rx Confirmed 03/30/20] Fluticasone/Vilanterol [Breo Ellipta 200-25 Mcg INH] 1 inh INHALATION DAILY 03/23/20 [History Confirmed 03/30/20] Hydralazine HCl 25 mg PO TID 03/23/20 [History Confirmed 03/30/20] Metoprolol Succinate [Toprol Xl] 12.5 mg PO DAILY 03/23/20 [History Confirmed 03/30/20] Umeclidinium [place] Inhaler [Incruse Ellipta Inhaler] 1 inh INHALATION DAILY 03/23/20 [History Confirmed 03/30/20] [facility] Medical History Paroxysmal atrial fibrillation (Chronic 06/2019) Acute systolic (congestive) heart failure (Chronic) Ischemic cardiomyopathy (Chronic) NSVT (nonsustained ventricular tachycardia) (Chronic) Atherosclerosis of coronary artery of [place] heart without angina pectoris (Chronic) (HFpEF) heart failure with preserved ejection fraction (Chronic) Hyperlipidemia (Chronic) Essential (primary) hypertension (Chronic) Mobitz type I Wenckebach atrioventricular block (Chronic) History of non-ST elevation myocardial infarction (NSTEMI) (Resolved 06/25/19) Incomplete right bundle branch block (Chronic) Pulmonary nodule (Chronic) Chronic hypoxemic respiratory failure (Chronic) COPD (chronic obstructive pulmonary disease) (Chronic) Chronic steroid use (Acute) Dialysis patient (Acute) 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 (Acute) Hyponatremia (Acute) Overweight (Acute) Pedal edema (Acute) Allergic rhinitis (Chronic) Anemia (Chronic) Anemia (Chronic) Benign localized hyperplasia of prostate (Chronic) CKD (chronic kidney disease) stage 4, GFR 15-29 ml/min (Chronic) COPD (chronic obstructive pulmonary disease) (Chronic) Carpal tunnel syndrome (Chronic) Chronic allergic rhinitis (Chronic) Chronic otitis media (Chronic) Epistaxis (Chronic) Former smoker (Chronic) GERD (gastroesophageal reflux disease) (Chronic) GI bleed (Chronic 06/28/19) History of prostate cancer (Chronic) senior care (current) use of insulin (Chronic) Low back pain (Chronic) Neuralgia (Chronic) Nonallopathic lesion of lumbar region (Chronic) Nonallopathic lesion of rib cage (Chronic) Nonallopathic lesion of sacral region (Chronic) Nonallopathic lesion of thoracic region, not elsewhere classified (Chronic) Otalgia (Chronic) Otitis externa (Chronic) PVD (peripheral vascular disease) (Chronic) Pain in lower limb (Chronic) Peripheral vascular insufficiency (Chronic) Thoracic back pain (Chronic) Thoracic outlet syndrome (Chronic) Type I diabetes mellitus (Chronic) Vitamin D deficiency (Chronic) post inflammatory pulmonary fibrosis (Chronic) Constipation (Resolved) Serous otitis media (Resolved) Wax in ear (Resolved) Reactive airway disease (Inactive) Surgical History History of left heart catheterization (Chronic 02/09/20) History of coronary artery stent placement (Resolved 06/29/19) H/O inguinal hernia repair (Resolved) H/O prostate biopsy (Resolved) History of appendectomy (Resolved) History of carpal tunnel surgery of left wrist (Resolved) S/P bilateral foot surgery (Resolved) S/P rotator cuff repair (Resolved) Family History Sister Diabetes Father Heart disease Social History (Updated 03/30/20 @ 15:[address] Jose Elias Bazzi MD) Smoking Status: Former smoker quit date: 11/12/13 pack-years: 55 how long ago did patient quit smokin years ago second hand exposure: No alcohol intake: never substance use type: does not use caffeine: Yes Type: coffee Number of servings: 1 HPI HPI HPI: DIVYA HUSAIN, is a 75 M who presents to the office today for HPI HPI Surgical H&P: Yes HPI: DIVYA HUSAIN, is a 75 M who presents to the office today for surgical consultation regarding arteriovenous fistula creation. It is of note that just on March 25, 2020 because of failure to function I removed right internal jugular tunneled dialysis catheters and placed left internal jugular tunneled dialysis catheters. The patient demonstrates a significant amount of reaction to the dressings and adhesives. When he had presented he does appear to have a significant bout of contact dermatitis right chest. He states that yesterday it was quite pruritic but now improving today. He still has some soreness of the left chest catheter site. He is right arm dominant. On March 23, [address] [facility] he had bilateral upper semi- vein mapping. Unfortunately the cephalic veins appear to be small throughout. The basilic veins are borderline smaller than usual for the upper arm position. Apparently it was discussed with him the potential for home peritoneal dialysis. He is not interested in that at this time. [facility] [address] [address] Saphenous Vein Mapping, Bilat 03/23/20 0952 MR#: [id number] Name:DIVYA HUSAIN [facility] #:[id number] : 1945 75From:Jose Elias Bazzi MD Attending Dr: ANDREA Fongtatus: REG CLI Ordering Dr: Allison Reyes MDDate: 03/23/20 [facility] Reason For Study: ESRD Right Arm Left Arm Right cephalic vein is compressible. Left cephalic vein is compressible. Right Cephalic Vein at the shoulder Left Cephalic Vein at the shoulder measures .2 x .24 cm. measures .15 x .15 cm. Right Cephalic Vein mid bicep measures .16 Left Cephalic Vein at mid bicep measures .18 x .19 cm. x .18 cm. Right Cephalic Vein above antecub Left Cephalic Vein above antecub measures .27 measures .18 x .18 cm. x .28 cm. Right Cephalic Vein below antecub Left Cephalic Vein below antecub measures .21 measures .21 x .22 cm. x .24 cm. Right Cephalic Vein in the forearm Left Cephalic Vein in the forearm measures .2 measures .17 x .19 cm. x .2 cm. Right Cephalic Vein at the wrist measures .13 Left Cephalic Vein at the wrist measures .18 x .14 cm. x .2 cm. Right basilic vein is compressible. Left basilic vein is compressible. Right Basilic Vein mid bicep measures .36 Basilic vein at bicep measures .26 x .26 cm. x .41 cm. Basilic vein above antecub measures .28 x .28 Right Basilic Vein above antecub measures .23 cm. x .23 cm. Basilc V below this level is too small to Basilic V below this level is too small to assess. assess. Brachial artery .51 x .50 cm. Brachial artery .52 x .54 cm. Brachial artery 54.2 cm/s. Brachial artery 54.2 cm/s. Radial artery .24 x .26 cm. Radial artery .28 x .29 cm. Radial artery 50.3 cm/s. Radial artery 67.3 cm/s. Interpretation Summary Patent and compressible bilateral upper extremity cephalic and basilic veins. Small cephalic veins throughout bilateral upper extremities. Adequate though smaller than normal bilateral upper arm basilic veins Too small to measure bilateral forearm basilic veins Normal bilateral radial and brachial artery diameter and flow Ordering Physician: Allison Reyes Performed By: Raúl Richards RVSelam ? 03/23/20 1054 Date Jose Elias Bazzi MD CC: Dr. Sb Bolanos DO; Dr. Allison Reyes MD ~ Date Dictated:03/23/20951 Date Transcribed: 03/23/20 105 District Supervisor: Signed ROS General General: Yes fatigue; no weight change, appetite, colon cancer, breast cancer or weakness HEENT HEENT: No difficulty swallowing, eye injury, eye surgery, swollen glands or hoarseness Endo Endocrine: Yes diabetes mellitus; no thyroid disease, thyroid cancer, Hair loss, heat intolerance or cold intolerance Musc Musculoskeletal: Yes arthritis; no back problems, rheumatoid arthritis, gout or joint pain Cardio Cardiovascular: Yes heart disease, high blood pressure, heart attack, heart stent and shortness of breat with exertion; no murmur, pacemaker, atrial fibrillation, palpitations or chest pain Psych Psychiatric: No depression, anxiety or hearing voices Resp Respiratory: Yes shortness of breath, No sleep apnea, No cough, Yes COPD, No asthma, No emphysema, No wheezing Gastro Gastrointestinal: No abdominal pain, No nausea or vomiting, No diarrhea, No constipation, No blood in stool, No acid reflux, No hemorrhoids, No ulcers, No gallbladder problem, No black,tarry stools Bhupinder Hematologic: No blood thinners, No blood disorders, No bleeding, Yes anemia, No blood clots Neuro Neurologic: No weakness Exam Const General: cooperative Nutritional Appearance: underweight Orientation: alert, awake [facility] Head: normal to inspection Chest Chest palpation & inspection: normal inspection of the chest Other: Erythema right anterior chest but no drainage, nontender Freshly placed left internal jugular tunneled dialysis catheters. No bleeding. Resp Effort & Inspection: normal respiratory effort Auscultation: clear to auscultation bilaterally Cardio Rate: regular rate Rhythm: regular rhythm Heart Sounds: no murmurs GI Palpation: soft Auscultation: normal bowel sounds Other: Insulin pump in place Extrem Other: Left upper extremity forearm rather atrophic. 2+ radial pulse. Cephalic vein diminutive. On my inspection with ultrasound the left upper arm cephalic vein appears to be thick-walled. It is rather deeply placed. The left upper arm basilic vein is patent and compressible. It appears to be slightly larger than the cephalic vein. Psych Affect: normal affect Assessment & Plan Problems 1. Chronic renal failure, stage 5 N18.5 Plan I propose for him stage I left upper semi-brachiobasilic arteriovenous hemodialysis fistula creation. I discussed the technique, benefit, risk and alternatives. He has had an opportunity to ask and have questions answered. We will have him hold his clopidogrel 2 days preprocedure. He is aware that he will require a second stage transposition. As noted above he declines entertaining peritoneal dialysis catheters at this time He has been advised to utilize some moist warm heat to his right anterior chest to help with resolution of that catheter removal site I appreciate the ongoing opportunity of assisting with his surgical care cc: Dr Amy Bazzi M.D., F.A.C.S. Coding Level of Care Code Attention Tandem Operator Diagnoses Chronic renal failure, stage 5 N18.5 03/30/20 0332 <Electronically signed by Jose Elias diane MD> Date _ Jose Elias Bazzi MD
[2020-03-30 14:46] VITALS: BMI 24.2
[2020-04-15 10:19] LABS: Hematocrit 41.1 % (40-54); Hemoglobin 12.8 g/dL (13.0-16.5); Mean Corp Hgb Conc 31.1 g/dL (32-36); Mean Corpuscular Hgb 28.9 pg (27.0-32.0); Mean Corpuscular Volume 92.8 fL (80-94); Mean Platelet Vol. 10.9 fl (6.2-12.0); Platelet Count 253 K/mm3 (150-450); RBC Distribution Width CV 15.1 % (11.6-14.6); RBC Distribution Width SD 50.8 fl (35.1-43.9); Red Blood Count 4.43 M/mm3 (4.6-6.2); White Blood Count 10.4 K/mm3 (4.4-11.0)
[2020-04-15 10:42] LABS: Anion Gap 8 (5-15); BUN 50 mg/dL (7-18); BUN/Creat Ratio 14.5 RATIO (10-20); Calcium,Total 9.2 mg/dL (8.5-10.1); Chloride 97 mmol/L (98-107); Creatinine, Serum 3.44 mg/dL (0.70-1.30); EST Glomerular Filtration Rate 19 mL/min (>60); Est Glom Filt Rate - Afr Amer 22 mL/min (>60); Glucose 163 mg/dL (74-106); Potassium 3.4 mmol/L (3.5-5.1); Sodium Level 134 mmol/L (136-145)
--- NOTE | 2020-04-20 05:58 | PCM.HP.BLA ---
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 Is patient in pain?: No Allergies amoxicillin [From Augmentin] Allergy (Unknown, Verified 03/30/20 14:46) Unknown clavulanic acid [From Augmentin] Allergy (Unknown, Verified 03/30/20 14:46) Unknown Sulfa (Sulfonamide Antibiotics) Allergy (Unknown, Verified 03/30/20 14:46) Unknown Medications latanoprost 0.005 % eye drops 1 drp EACH EYE DAILY ml 11/15/17 [History Confirmed 03/30/20] albuterol sulfate 90 mcg/actuation aerosol inhaler 2 puff INHALATION Q6H PRN PRN #18 g 08/05/19 [Rx Confirmed 03/30/20] aspirin 81 mg tablet,delayed release 81 mg PO DAILY #90 tab 08/06/19 [Rx Confirmed 03/30/20] atorvastatin 80 mg tablet 80 mg PO QHS #90 tab 08/06/19 [Rx Confirmed 03/30/20] clopidogrel 75 mg tablet 75 mg PO DAILY #90 tab 08/06/19 [Rx Confirmed 03/30/20] isosorbide mononitrate 30 mg tablet,extended release 24 hr 30 mg PO DAILY #90 tab 08/06/19 [Rx Confirmed 03/30/20] brimonidine 0.2 % eye drops 1 drp LEFT EYE BID ml 10/01/19 [History Confirmed 03/30/20] timolol 0.5 % eye drops 1 drp EACH EYE DAILY ml 10/01/19 [History Confirmed 03/30/20] Ergocalciferol (Vitamin D2) [Vitamin D2] 50,000 unit PO CUNHA 02/03/20 [History Confirmed 03/30/20] insulin lispro 100 unit/mL subcutaneous solution See Rx Instructions SC DAILY #90 ml 03/22/20 [Rx Confirmed 03/30/20] Fluticasone/Vilanterol [Breo Ellipta 200-25 Mcg INH] 1 inh INHALATION DAILY 03/23/20 [History Confirmed 03/30/20] Hydralazine HCl 25 mg PO TID 03/23/20 [History Confirmed 03/30/20] Metoprolol Succinate [Toprol Xl] 12.5 mg PO DAILY 03/23/20 [History Confirmed 03/30/20] Umeclidinium [place] Inhaler [Incruse Ellipta Inhaler] 1 inh INHALATION DAILY 03/23/20 [History Confirmed 03/30/20] [facility] Medical History Paroxysmal atrial fibrillation (Chronic 06/2019) Acute systolic (congestive) heart failure (Chronic) Ischemic cardiomyopathy (Chronic) NSVT (nonsustained ventricular tachycardia) (Chronic) Atherosclerosis of coronary artery of [place] heart without angina pectoris (Chronic) (HFpEF) heart failure with preserved ejection fraction (Chronic) Hyperlipidemia (Chronic) Essential (primary) hypertension (Chronic) Mobitz type I Wenckebach atrioventricular block (Chronic) History of non-ST elevation myocardial infarction (NSTEMI) (Resolved 06/25/19) Incomplete right bundle branch block (Chronic) Pulmonary nodule (Chronic) Chronic hypoxemic respiratory failure (Chronic) COPD (chronic obstructive pulmonary disease) (Chronic) Chronic steroid use (Acute) Dialysis patient (Acute) 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 (Acute) Hyponatremia (Acute) Overweight (Acute) Pedal edema (Acute) Allergic rhinitis (Chronic) Anemia (Chronic) Anemia (Chronic) Benign localized hyperplasia of prostate (Chronic) CKD (chronic kidney disease) stage 4, GFR 15-29 ml/min (Chronic) COPD (chronic obstructive pulmonary disease) (Chronic) Carpal tunnel syndrome (Chronic) Chronic allergic rhinitis (Chronic) Chronic otitis media (Chronic) Epistaxis (Chronic) Former smoker (Chronic) GERD (gastroesophageal reflux disease) (Chronic) GI bleed (Chronic 06/28/19) History of prostate cancer (Chronic) USP (current) use of insulin (Chronic) Low back pain (Chronic) Neuralgia (Chronic) Nonallopathic lesion of lumbar region (Chronic) Nonallopathic lesion of rib cage (Chronic) Nonallopathic lesion of sacral region (Chronic) Nonallopathic lesion of thoracic region, not elsewhere classified (Chronic) Otalgia (Chronic) Otitis externa (Chronic) PVD (peripheral vascular disease) (Chronic) Pain in lower limb (Chronic) Peripheral vascular insufficiency (Chronic) Thoracic back pain (Chronic) Thoracic outlet syndrome (Chronic) Type I diabetes mellitus (Chronic) Vitamin D deficiency (Chronic) post inflammatory pulmonary fibrosis (Chronic) Constipation (Resolved) Serous otitis media (Resolved) Wax in ear (Resolved) Reactive airway disease (Inactive) Surgical History History of left heart catheterization (Chronic 02/09/20) History of coronary artery stent placement (Resolved 06/29/19) H/O inguinal hernia repair (Resolved) H/O prostate biopsy (Resolved) History of appendectomy (Resolved) History of carpal tunnel surgery of left wrist (Resolved) S/P bilateral foot surgery (Resolved) S/P rotator cuff repair (Resolved) Family History Sister Diabetes Father Heart disease Social History (Updated 03/30/20 @ 15:[address] Jose Elias Bazzi MD) Smoking Status: Former smoker quit date: 11/12/13 pack-years: 55 how long ago did patient quit smokin years ago second hand exposure: No alcohol intake: never substance use type: does not use caffeine: Yes Type: coffee Number of servings: 1 HPI HPI HPI: DIVYA HUSAIN, is a 75 M who presents to the office today for HPI HPI Surgical H&P: Yes HPI: DIVYA HUSAIN, is a 75 M who presents to the office today for surgical consultation regarding arteriovenous fistula creation. It is of note that just on March 25, 2020 because of failure to function I removed right internal jugular tunneled dialysis catheters and placed left internal jugular tunneled dialysis catheters. The patient demonstrates a significant amount of reaction to the dressings and adhesives. When he had presented he does appear to have a significant bout of contact dermatitis right chest. He states that yesterday it was quite pruritic but now improving today. He still has some soreness of the left chest catheter site. He is right arm dominant. On March 23, 2020 at the [facility] he had bilateral upper semi-vein mapping. Unfortunately the cephalic veins appear to be small throughout. The basilic veins are borderline smaller than usual for the upper arm position. Apparently it was discussed with him the potential for home peritoneal dialysis. He is not interested in that at this time. [facility] [place] [address] Saphenous Vein Mapping, Bilat 03/23/20 0952 MR#: [id number]:[id number] Name:DIVYA HUSAIN [facility] #:[id number] : 1945 75From:Jose Elias Bazzi MD Attending Dr: Dr. Allison Reyes, MDStatus: REG CLI Ordering Dr: Allison Reyes MDDate: 03/23/20 Location:CVSSex: Admitted: Reason For Study: ESRD Right Arm Left Arm Right cephalic vein is compressible. Left cephalic vein is compressible. Right Cephalic Vein at the shoulder Left Cephalic Vein at the shoulder measures .2 x .24 cm. measures .15 x .15 cm. Right Cephalic Vein mid bicep measures .16 Left Cephalic Vein at mid bicep measures .18 x .19 cm. x .18 cm. Right Cephalic Vein above antecub Left Cephalic Vein above antecub measures .27 measures .18 x .18 cm. x .28 cm. Right Cephalic Vein below antecub Left Cephalic Vein below antecub measures .21 measures .21 x .22 cm. x .24 cm. Right Cephalic Vein in the forearm Left Cephalic Vein in the forearm measures .2 measures .17 x .19 cm. x .2 cm. Right Cephalic Vein at the wrist measures .13 Left Cephalic Vein at the wrist measures .18 x .14 cm. x .2 cm. Right basilic vein is compressible. Left basilic vein is compressible. Right Basilic Vein mid bicep measures .36 Basilic vein at bicep measures .26 x .26 cm. x .41 cm. Basilic vein above antecub measures .28 x .28 Right Basilic Vein above antecub measures .23 cm. x .23 cm. Basilc V below this level is too small to Basilic V below this level is too small to assess. assess. Brachial artery .51 x .50 cm. Brachial artery .52 x .54 cm. Brachial artery 54.2 cm/s. Brachial artery 54.2 cm/s. Radial artery .24 x .26 cm. Radial artery .28 x .29 cm. Radial artery 50.3 cm/s. Radial artery 67.3 cm/s. Interpretation Summary Patent and compressible bilateral upper extremity cephalic and basilic veins. Small cephalic veins throughout bilateral upper extremities. Adequate though smaller than normal bilateral upper arm basilic veins Too small to measure bilateral forearm basilic veins Normal bilateral radial and brachial artery diameter and flow Ordering Physician: Allison Reyes Performed By: Raúl Richards, RVT ? 03/23/20 1054 Date Jose Elias Bazzi MD CC: Dr. Sb Bolanos DO; Dr. Allison Reyes MD ~ Date Dictated:03/23/20951 Date Transcribed: 03/23/201053 Engineering Group Manager: Signed ROS General General: Yes fatigue; no weight change, appetite, colon cancer, breast cancer or weakness HEENT HEENT: No difficulty swallowing, eye injury, eye surgery, swollen glands or hoarseness Endo Endocrine: Yes diabetes mellitus; no thyroid disease, thyroid cancer, Hair loss, heat intolerance or cold intolerance Musc Musculoskeletal: Yes arthritis; no back problems, rheumatoid arthritis, gout or joint pain Cardio Cardiovascular: Yes heart disease, high blood pressure, heart attack, heart stent and shortness of breat with exertion; no murmur, pacemaker, atrial fibrillation, palpitations or chest pain Psych Psychiatric: No depression, anxiety or hearing voices Resp Respiratory: Yes shortness of breath, No sleep apnea, No cough, Yes COPD, No asthma, No emphysema, No wheezing Gastro Gastrointestinal: No abdominal pain, No nausea or vomiting, No diarrhea, No constipation, No blood in stool, No acid reflux, No hemorrhoids, No ulcers, No gallbladder problem, No black,tarry stools Bhupinder Hematologic: No blood thinners, No blood disorders, No bleeding, Yes anemia, No blood clots Neuro Neurologic: No weakness Exam Const General: cooperative Nutritional Appearance: underweight Orientation: alert, awake [facility] Head: normal to inspection Chest Chest palpation & inspection: normal inspection of the chest Other: Erythema right anterior chest but no drainage, nontender Freshly placed left internal jugular tunneled dialysis catheters. No bleeding. Resp Effort & Inspection: normal respiratory effort Auscultation: clear to auscultation bilaterally Cardio Rate: regular rate Rhythm: regular rhythm Heart Sounds: no murmurs GI Palpation: soft Auscultation: normal bowel sounds Other: Insulin pump in place Extrem Other: Left upper extremity forearm rather atrophic. 2+ radial pulse. Cephalic vein diminutive. On my inspection with ultrasound the left upper arm cephalic vein appears to be thick-walled. It is rather deeply placed. The left upper arm basilic vein is patent and compressible. It appears to be slightly larger than the cephalic vein. Psych Affect: normal affect Assessment & Plan Problems 1. Chronic renal failure, stage 5 N18.5 Plan I propose for him stage I left upper semi-brachiobasilic arteriovenous hemodialysis fistula creation. I discussed the technique, benefit, risk and alternatives. He has had an opportunity to ask and have questions answered. We will have him hold his clopidogrel 2 days preprocedure. He is aware that he will require a second stage transposition. As noted above he declines entertaining peritoneal dialysis catheters at this time He has been advised to utilize some moist warm heat to his right anterior chest to help with resolution of that catheter removal site I appreciate the ongoing opportunity of assisting with his surgical care cc: Dr Amy Bazzi M.D., F.A.C.S. Coding Level of Care Code [facility] Diagnoses Chronic renal failure, stage 5 N18.5 03/30/20 1540 <Electronically signed by Jose Elias Bazzi MD> Date Jose Elias Bazzi MD I have re-examined the patient. There are no clinical changes since date of exam. Procedure Criteria Procedure Type: Elective COVID Risk Discussion: The surgeon/proceduralist and patient have discussed in detail the risk of exposure to and/or potential harm posed by the COVID-19 virus with having a surgery/procedure at this time versus the risk of delaying the surgery/procedure. It is not possible to know either the risk of delaying the surgery or procedure or chance of getting an infection with perfect accuracy, but a joint decision was made between the patient and the surgeon/proceduralist to proceed at this time with the scheduled surgery/procedure as indicated on the consent form.
[2020-04-20 06:11] VITALS: BP 116/61; PULSE 75; RESP 15; TEMP 37.2; O2SAT 100; BMI 23.8
[2020-04-20] MEDS: 0.45% Normal Saline 1,000 ML 30 ML IV (06:30)
[2020-04-20 06:36] LABS: Bedside Glucose 254 mg/dL (70-110)
--- NOTE | 2020-04-20 07:13 | PCM.DC.FIST ---
Discharge Diet: Renal Diet Discharge Activity: May Not Drive - for 2-3 days or while taking narcotic pain medications., May Shower, May Take a Tub Bath - in 5 days. Lifting Restrictions: 5 pounds Keep extremity elevated above heart level: - - Keep arm elevated above the heart level for 3 days. Additional Activity Instructions:: Exercise hand vigorously with a stress ball. Call your doctor if your incision/area has: Continuous Slow Oozing, Sudden Increased Bleeding - apply pressure and call your doctor., Increased Pain/ Swelling, Increased Redness, Foul Smelling Discharge Call your doctor if you observe: Fever of 101 or Higher Suture Line Care: Avoid Pulling/Pushing, Avoid Pinching/Bending Cleanse incision/area with: Keep Dressing Clean & Dry Additional Dressing/Incision Instructions:: Change or remove dressing in one day. May protect with a gauze bandaid. Allergies/Adverse Reactions: Allergies amoxicillin [From Augmentin] Allergy (Unknown, Verified 04/20/20 06:09) Unknown clavulanic acid [From Augmentin] Allergy (Unknown, Verified 04/20/20 06:09) Unknown Sulfa (Sulfonamide Antibiotics) Allergy (Unknown, Verified 04/20/20 06:09) Unknown Medications to take at Discharge latanoprost 0.005 % eye drops 1 drp EACH EYE DAILY ml 11/15/17 albuterol sulfate 90 mcg/actuation aerosol inhaler 2 puff INHALATION Q6H PRN PRN #18 g 08/05/19 aspirin 81 mg tablet,delayed release 81 mg PO DAILY #90 tab 08/06/19 atorvastatin 80 mg tablet 80 mg PO QHS #90 tab 08/06/19 clopidogrel 75 mg tablet 75 mg PO DAILY #90 tab 08/06/19 isosorbide mononitrate 30 mg tablet,extended release 24 hr 30 mg PO DAILY #90 tab 08/06/19 brimonidine 0.2 % eye drops 1 drp LEFT EYE BID ml 10/01/19 timolol 0.5 % eye drops 1 drp EACH EYE DAILY ml 10/01/19 Ergocalciferol (Vitamin D2) [Vitamin D2] 50,000 unit PO CUNHA 02/03/20 insulin lispro 100 unit/mL subcutaneous solution See Rx Instructions SC DAILY #90 ml 03/22/20 Fluticasone/Vilanterol [Breo Ellipta 200-25 Mcg INH] 1 inh INHALATION DAILY 03/23/20 Hydralazine HCl 25 mg PO TID 03/23/20 Metoprolol Succinate [Toprol Xl] 12.5 mg PO DAILY 03/23/20 Umeclidinium [place] Inhaler [Incruse Ellipta Inhaler] 1 inh INHALATION DAILY 03/23/20 Primary Care Physician: Sb Bolanos DO [Primary Care Provider] - Test Results: Test results from this visit will be discussed in further detail at your follow-up appointment, if applicable. Please Follow Up With: Jose Elias Bazzi MD - [phone] When: Call to make an appointment for suture removal and follow up in 10 days.
[2020-04-20] MEDS: Heparin Injection (Vial) 5,000 UNIT/ML VIAL 5000 UNIT (07:45)
[2020-04-20] MEDS: Bupivacaine Mpf 0.5% 30 ML VIAL (07:45)
--- NOTE | 2020-04-20 08:43 | OP.PCM_ITS ---
Problem List (1) Chronic renal failure, stage 5 Status: Chronic Report of Operation Date of Procedure: 04/20/20 Pre-Operative Diagnosis: Stage V chronic renal insufficiency in need of arteriovenous hemodialysis access Post-Operative Diagnosis: Same Surgery/Procedure Performed:: Stage I left upper extremity brachial to basilic arteriovenous fistula creation Description of Surgical Findings:: Timeout and informed consent was obtained. 75-year-old gentleman was taken the operating placed by the table underwent monitored anesthesia care. The left upper extremity was sterilely prepped and draped. 1% lidocaine mixed 50-50 with 0.5% Marcaine was used as a local anesthetic. A total 11 cc was used. Ultrasound was used preoperatively to map the course of the basilic vein. Local was instilled. An oblique incision was made at the antecubital area left upper arm. Sharp and blunt dissection was used to dissect free the length of basilic vein. It was inked marked. Sharp and blunt dissection was used to identify the brachial artery and Vesseloops were placed. The patient received 6000 units of heparin intravenously. Peripheral vascular clamps were placed on the brachial artery and 11 blade was used to make an arteriotomy which was extended with Weinberg scissors. The vein was ligated distally with a Hemoclip and was spatulated. A end-to-side venous to arterial anastomosis was created with a running 7-0 Prolene. A single repair suture of 7-0 Prolene was required for hemostasis. There was a good pulse and thrill within the vein at the completion. Hemostasis was intact. The deep tissues were approximated up to 3- 0 Vicryl. The skin edges approximated running subcuticular 4-0 Monocryl. Steri-Strips Telfa and OpSite dressings applied.. The hand was viable to compl etion. No apparent complications. Specimens none. Drains none. Blood loss minimal. The patient was taken to the recovery area in satisfactory condition without apparent complication Jose Elias Bazzi M.D., F.A.C.S. Type of Anesthesia:: Local MAC Anesthesiologist: Dwayne Barrientos
[2020-04-20 08:55] VITALS: BP 116/61; BP 116/64; BP 119/70; PULSE 73; PULSE 74; RESP 16; TEMP 36.5; O2SAT 99
[2020-04-20 09:00] VITALS: BP 111/63; BP 116/61; PULSE 75; RESP 16; O2SAT 99
[2020-04-20 09:13] VITALS: BP 110/65; BP 116/61; PULSE 73; RESP 16; TEMP 36.6; O2SAT 97
--- NOTE | 2020-04-20 10:52 | SUR.PHASEII ---
noted blood on dressing. Dr. haley notified. Pressure held for [address] haley into see pt and dressing reapplied.
[2020-04-20 11:22] VITALS: BP 116/59; BP 116/61; PULSE 79; RESP 16; TEMP 36.9; O2SAT 94
== END 2020-04-20 11:44 | disposition home or self-care (01) ==
LOC: SDC 05:41 → AC 05:41
PROVIDERS: PCP Family Medicine; Referring Provider Surgery; Visit Provider Surgery
PROC: (CPT 36821; principal; 2020-04-20 07:15)
DX: I13.2 Hypertensive heart and chronic kidney disease with heart failure and with stage 5 chronic kidney disease, or end stage renal disease (principal); E10.22 Type 1 diabetes mellitus with diabetic chronic kidney disease; I50.41 Acute combined systolic (congestive) and diastolic (congestive) heart failure; N18.5 Chronic kidney disease, stage 5; I48.0 Paroxysmal atrial fibrillation; I25.5 Ischemic cardiomyopathy; I47.2 Ventricular tachycardia; I25.10 Atherosclerotic heart disease of native coronary artery without angina pectoris; E78.5 Hyperlipidemia, unspecified; I44.1 Atrioventricular block, second degree; I25.2 Old myocardial infarction; R91.1 Solitary pulmonary nodule; J44.9 Chronic obstructive pulmonary disease, unspecified; J96.11 Chronic respiratory failure with hypoxia; J84.10 Pulmonary fibrosis, unspecified; D63.1 Anemia in chronic kidney disease; N40.0 Benign prostatic hyperplasia without lower urinary tract symptoms; K21.9 Gastro-esophageal reflux disease without esophagitis; E10.51 Type 1 diabetes mellitus with diabetic peripheral angiopathy without gangrene; E55.9 Vitamin D deficiency, unspecified; Z88.0 Allergy status to penicillin; Z88.1 Allergy status to other antibiotic agents; Z88.2 Allergy status to sulfonamides; Z95.5 Presence of coronary angioplasty implant and graft; Z99.2 Dependence on renal dialysis; Z99.81 Dependence on supplemental oxygen; Z79.82 Long term (current) use of aspirin; Z79.4 Long term (current) use of insulin; Z96.41 Presence of insulin pump (external) (internal); Z79.02 Long term (current) use of antithrombotics/antiplatelets; Z79.51 Long term (current) use of inhaled steroids; Z79.899 Other long term (current) drug therapy; Z87.891 Personal history of nicotine dependence; Z11.59 Encounter for screening for other viral diseases
CPT/HCPCS: 01844; 36821; 36415; 80048; 82962; 85027; 87635; C9803; G2023; U0003

== ENCOUNTER → 2020-04-22 07:02 | Outpatient (CLI) | payer MEDICARE, BC, SELFPAY ==
[2020-03-30 14:46] VITALS: BMI 24.2
[2020-04-20 06:11] VITALS: BMI 23.8
--- NOTE | 2020-04-22 10:13 | STRESSREP_ITS ---
Stress Test Report Date: 04/22/2020 Procedure: Pharmacologic stress nuclear imaging study Indications: Dyspnea on exertion Consent: Per the patient Procedure: The patient underwent pharmacologic (Regadenoson) evaluation with a peak heart rate of 91 beats per minute (63 %predicted maximal heart rate) and a peak blood pressure of 142/44 mmHg. The baseline ECG demonstrated normal sinus rhythm, first-degree AV block. EKG during lexiscan infusion revealed no significant ischemic changes. EKG post infusion revealed no significant ischemic changes [There were no cardiac dysrhythmias pretest, during pharmacologic infusion, or recovery]. [There was no complaint of chest discomfort during pharmacologic infusion or recovery]. The examination was discontinued secondary to completion of protocol. Impression: 1. Lexiscan stress test test is negative for Lexiscan infusion induced EKG changes of ischemia. 2. Lexiscan stress test test is negative for Lexiscan infusion induced chest pain. 3. Results of the nuclear portion of the test is as below Myocardial perfusion imaging study: Technique: The patient was injected with 11.6 millicuries of technetium 99m Cardiolite and subsequently rest SPECT Cardiolite nuclear imaging was obtained in the horizontal long, vertical long, and short axis views. The patient underwent pharmacologic (Regadenoson) evaluation. Please see above for details. The patient was injected with 36 millicuries of technetium 99m Cardiolite and subsequently stress SPECT Cardiolite nuclear imaging was obtained in the horizontal long, vertical long, and short axis views. A gated Cardiolite study at peak stress was obtained. Interpretation: Rest and stress SPECT Cardiolite nuclear imaging status post realignment, normalization, and attenuation correction demonstrate decreased radioisotope uptake in the inferior wall that is slightly worse on the stress images suggestive of prior inferior infarction with mild lissette-infarct ischemia. There is normal uptake in the anterior wall during rest and moderately decreased uptake in this area on the stress images suggestive of moderate degree of anteri or ischemia. Gating could not be performed and ejection fraction could not be estimated as a result. Impression: 1. There is evidence of moderate anterior ischemia and prior inferior infarction with mild lissette-infarct ischemia. 2. Estimated ejection fraction could not be obtained. This note was generated with [employer] software. It may contain incorrect words, spelling, and punctuation that were not noted in checking the note before signing.
== END ==
PROVIDERS: PCP Family Medicine; Referring Provider Specialist; Visit Provider Specialist
DX: I25.10 Atherosclerotic heart disease of native coronary artery without angina pectoris (principal); I25.5 Ischemic cardiomyopathy; I47.2 Ventricular tachycardia; I50.21 Acute systolic (congestive) heart failure; Z95.5 Presence of coronary angioplasty implant and graft
CPT/HCPCS: 78452; 93017; A9500; A4216; J2785

== ENCOUNTER 2020-05-18 10:05 | Day surgery (SDC) | payer MEDICARE, BC, SELFPAY ==
--- NOTE | 2020-03-30 03:40 | HP_ITS ---
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 Is patient in pain?: No Allergies amoxicillin [From Augmentin] Allergy (Unknown, Verified 03/30/20 14:46) Unknown clavulanic acid [From Augmentin] Allergy (Unknown, Verified 03/30/20 14:46) Unknown Sulfa (Sulfonamide Antibiotics) Allergy (Unknown, Verified 03/30/20 14:46) Unknown Medications latanoprost 0.005 % eye drops 1 drp EACH EYE DAILY ml 11/15/17 [History Confirmed 03/30/20] albuterol sulfate 90 mcg/actuation aerosol inhaler 2 puff INHALATION Q6H PRN PRN #18 g 08/05/19 [Rx Confirmed 03/30/20] aspirin 81 mg tablet,delayed release 81 mg PO DAILY #90 tab 08/06/19 [Rx Confirmed 03/30/20] atorvastatin 80 mg tablet 80 mg PO QHS #90 tab 08/06/19 [Rx Confirmed 03/30/20] clopidogrel 75 mg tablet 75 mg PO DAILY #90 tab 08/06/19 [Rx Confirmed 03/30/20] isosorbide mononitrate 30 mg tablet,extended release 24 hr 30 mg PO DAILY #90 tab 08/06/19 [Rx Confirmed 03/30/20] brimonidine 0.2 % eye drops 1 drp LEFT EYE BID ml 10/01/19 [History Confirmed 03/30/20] timolol 0.5 % eye drops 1 drp EACH EYE DAILY ml 10/01/19 [History Confirmed 03/30/20] Ergocalciferol (Vitamin D2) [Vitamin D2] 50,000 unit PO CUNHA 02/03/20 [History Confirmed 03/30/20] insulin lispro 100 unit/mL subcutaneous solution See Rx Instructions SC DAILY #90 ml 03/22/20 [Rx Confirmed 03/30/20] Fluticasone/Vilanterol [Breo Ellipta 200-25 Mcg INH] 1 inh INHALATION DAILY 03/23/20 [History Confirmed 03/30/20] Hydralazine HCl 25 mg PO TID 03/23/20 [History Confirmed 03/30/20] Metoprolol Succinate [Toprol Xl] 12.5 mg PO DAILY 03/23/20 [History Confirmed 03/30/20] Umeclidinium [place] Inhaler [Incruse Ellipta Inhaler] 1 inh INHALATION DAILY 03/23/20 [History Confirmed 03/30/20] [facility] Medical History Paroxysmal atrial fibrillation (Chronic 06/2019) Acute systolic (congestive) heart failure (Chronic) Ischemic cardiomyopathy (Chronic) NSVT (nonsustained ventricular tachycardia) (Chronic) Atherosclerosis of coronary artery of [place] heart without angina pectoris (Chronic) (HFpEF) heart failure with preserved ejection fraction (Chronic) Hyperlipidemia (Chronic) Essential (primary) hypertension (Chronic) Mobitz type I Wenckebach atrioventricular block (Chronic) History of non-ST elevation myocardial infarction (NSTEMI) (Resolved 06/25/19) Incomplete right bundle branch block (Chronic) Pulmonary nodule (Chronic) Chronic hypoxemic respiratory failure (Chronic) COPD (chronic obstructive pulmonary disease) (Chronic) Chronic steroid use (Acute) Dialysis patient (Acute) 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 (Acute) Hyponatremia (Acute) Overweight (Acute) Pedal edema (Acute) Allergic rhinitis (Chronic) Anemia (Chronic) Anemia (Chronic) Benign localized hyperplasia of prostate (Chronic) CKD (chronic kidney disease) stage 4, GFR 15-29 ml/min (Chronic) COPD (chronic obstructive pulmonary disease) (Chronic) Carpal tunnel syndrome (Chronic) Chronic allergic rhinitis (Chronic) Chronic otitis media (Chronic) Epistaxis (Chronic) Former smoker (Chronic) GERD (gastroesophageal reflux disease) (Chronic) GI bleed (Chronic 06/28/19) History of prostate cancer (Chronic) prison (current) use of insulin (Chronic) Low back pain (Chronic) Neuralgia (Chronic) Nonallopathic lesion of lumbar region (Chronic) Nonallopathic lesion of rib cage (Chronic) Nonallopathic lesion of sacral region (Chronic) Nonallopathic lesion of thoracic region, not elsewhere classified (Chronic) Otalgia (Chronic) Otitis externa (Chronic) PVD (peripheral vascular disease) (Chronic) Pain in lower limb (Chronic) Peripheral vascular insufficiency (Chronic) Thoracic back pain (Chronic) Thoracic outlet syndrome (Chronic) Type I diabetes mellitus (Chronic) Vitamin D deficiency (Chronic) post inflammatory pulmonary fibrosis (Chronic) Constipation (Resolved) Serous otitis media (Resolved) Wax in ear (Resolved) Reactive airway disease (Inactive) Surgical History History of left heart catheterization (Chronic 02/09/20) History of coronary artery stent placement (Resolved 06/29/19) H/O inguinal hernia repair (Resolved) H/O prostate biopsy (Resolved) History of appendectomy (Resolved) History of carpal tunnel surgery of left wrist (Resolved) S/P bilateral foot surgery (Resolved) S/P rotator cuff repair (Resolved) Family History Sister Diabetes Father Heart disease Social History (Updated 03/30/20 @ 15:[address] Jose Elias Bazzi MD) Smoking Status: Former smoker quit date: 11/12/13 pack-years: 55 how long ago did patient quit smokin years ago second hand exposure: No alcohol intake: never substance use type: does not use caffeine: Yes Type: coffee Number of servings: 1 HPI HPI HPI: DIVYA HUSAIN, is a 75 M who presents to the office today for HPI HPI Surgical H&P: Yes HPI: DIVYA HUSAIN, is a 75 M who presents to the office today for surgical consultation regarding arteriovenous fistula creation. It is of note that just on March 25, 2020 because of failure to function I removed right internal jugular tunneled dialysis catheters and placed left internal jugular tunneled dialysis catheters. The patient demonstrates a significant amount of reaction to the dressings and adhesives. When he had presented he does appear to have a significant bout of contact dermatitis right chest. He states that yesterday it was quite pruritic but now improving today. He still has some soreness of the left chest catheter site. He is right arm dominant. On March 23, 2020 at the [facility] he had bilateral upper semi- vein mapping. Unfortunately the cephalic veins appear to be small throughout. The basilic veins are borderline smaller than usual for the upper arm position. Apparently it was discussed with him the potential for home peritoneal dialysis. He is not interested in that at this time. [facility] [address] [place] [address] Saphenous Vein Mapping, Bilat 03/23/20 0952 MR#: [id number] Name:DIVYA HUSAIN [facility] #:[id number] : 1945 75From:Jose Elias Bazzi MD Attending Dr: ANDREA Fongtatus: REG CLI Ordering Dr: Allison Reyes MDDate: 03/23/20 [facility]: Reason For Study: ESRD Right Arm Left Arm Right cephalic vein is compressible. Left cephalic vein is compressible. Right Cephalic Vein at the shoulder Left Cephalic Vein at the shoulder measures .2 x .24 cm. measures .15 x .15 cm. Right Cephalic Vein mid bicep measures .16 Left Cephalic Vein at mid bicep measures .18 x .19 cm. x .18 cm. Right Cephalic Vein above antecub Left Cephalic Vein above antecub measures .27 measures .18 x .18 cm. x .28 cm. Right Cephalic Vein below antecub Left Cephalic Vein below antecub measures .21 measures .21 x .22 cm. x .24 cm. Right Cephalic Vein in the forearm Left Cephalic Vein in the forearm measures .2 measures .17 x .19 cm. x .2 cm. Right Cephalic Vein at the wrist measures .13 Left Cephalic Vein at the wrist measures .18 x .14 cm. x .2 cm. Right basilic vein is compressible. Left basilic vein is compressible. Right Basilic Vein mid bicep measures .36 Basilic vein at bicep measures .26 x .26 cm. x .41 cm. Basilic vein above antecub measures .28 x .28 Right Basilic Vein above antecub measures .23 cm. x .23 cm. Basilc V below this level is too small to Basilic V below this level is too small to assess. assess. Brachial artery .51 x .50 cm. Brachial artery .52 x .54 cm. Brachial artery 54.2 cm/s. Brachial artery 54.2 cm/s. Radial artery .24 x .26 cm. Radial artery .28 x .29 cm. Radial artery 50.3 cm/s. Radial artery 67.3 cm/s. Interpretation Summary Patent and compressible bilateral upper extremity cephalic and basilic veins. Small cephalic veins throughout bilateral upper extremities. Adequate though smaller than normal bilateral upper arm basilic veins Too small to measure bilateral forearm basilic veins Normal bilateral radial and brachial artery diameter and flow Ordering Physician: Allison Reyes Performed By: Raúl Richards RVSelam ? 03/23/20 1054 Date Jose Elias Bazzi MD CC: Dr. Sb Bolanos DO; Dr. Allison Reyes MD ~ Date Dictated:03/23/20951 Date Transcribed: 03/23/20 105 Pole Setter: Signed ROS General General: Yes fatigue; no weight change, appetite, colon cancer, breast cancer or weakness HEENT HEENT: No difficulty swallowing, eye injury, eye surgery, swollen glands or hoarseness Endo Endocrine: Yes diabetes mellitus; no thyroid disease, thyroid cancer, Hair loss, heat intolerance or cold intolerance Musc Musculoskeletal: Yes arthritis; no back problems, rheumatoid arthritis, gout or joint pain Cardio Cardiovascular: Yes heart disease, high blood pressure, heart attack, heart stent and shortness of breat with exertion; no murmur, pacemaker, atrial fibrillation, palpitations or chest pain Psych Psychiatric: No depression, anxiety or hearing voices Resp Respiratory: Yes shortness of breath, No sleep apnea, No cough, Yes COPD, No asthma, No emphysema, No wheezing Gastro Gastrointestinal: No abdominal pain, No nausea or vomiting, No diarrhea, No constipation, No blood in stool, No acid reflux, No hemorrhoids, No ulcers, No gallbladder problem, No black,tarry stools Bhupinder Hematologic: No blood thinners, No blood disorders, No bleeding, Yes anemia, No blood clots Neuro Neurologic: No weakness Exam Const General: cooperative Nutritional Appearance: underweight Orientation: alert, awake [facility] Head: normal to inspection Chest Chest palpation & inspection: normal inspection of the chest Other: Erythema right anterior chest but no drainage, nontender Freshly placed left internal jugular tunneled dialysis catheters. No bleeding. Resp Effort & Inspection: normal respiratory effort Auscultation: clear to auscultation bilaterally Cardio Rate: regular rate Rhythm: regular rhythm Heart Sounds: no murmurs GI Palpation: soft Auscultation: normal bowel sounds Other: Insulin pump in place Extrem Other: Left upper extremity forearm rather atrophic. 2+ radial pulse. Cephalic vein diminutive. On my inspection with ultrasound the left upper arm cephalic vein appears to be thick-walled. It is rather deeply placed. The left upper arm basilic vein is patent and compressible. It appears to be slightly larger than the cephalic vein. Psych Affect: normal affect Assessment & Plan Problems 1. Chronic renal failure, stage 5 N18.5 Plan I propose for him stage I left upper semi-brachiobasilic arteriovenous hemodialysis fistula creation. I discussed the technique, benefit, risk and alternatives. He has had an opportunity to ask and have questions answered. We will have him hold his clopidogrel 2 days preprocedure. He is aware that he will require a second stage transposition. As noted above he declines entertaining peritoneal dialysis catheters at this time He has been advised to utilize some moist warm heat to his right anterior chest to help with resolution of that catheter removal site I appreciate the ongoing opportunity of assisting with his surgical care cc: Dr Amy Bazzi M.D., F.A.C.S. Coding Level of Care Code Attention Provider Relations Manager Diagnoses Chronic renal failure, stage 5 N18.5 03/30/20 2693 <Electronically signed by Jose Elias diane MD> Date _ Jose Elias Bazzi MD
[2020-04-29 09:23] VITALS: BMI 23.1
--- NOTE | 2020-04-29 09:30 | HP_ITS ---
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 Is patient in pain?: No Allergies amoxicillin [From Augmentin] Allergy (Unknown, Verified 04/29/20 09:04) Unknown clavulanic acid [From Augmentin] Allergy (Unknown, Verified 04/29/20 09:04) Unknown Sulfa (Sulfonamide Antibiotics) Allergy (Unknown, Verified 04/29/20 09:04) Unknown Medications latanoprost 0.005 % eye drops 1 drp EACH EYE DAILY ml 11/15/17 [History Confirmed 04/29/20] albuterol sulfate 90 mcg/actuation aerosol inhaler 2 puff INHALATION Q6H PRN PRN #18 g 08/05/19 [Rx Confirmed 04/29/20] aspirin 81 mg tablet,delayed release 81 mg PO DAILY #90 tab 08/06/19 [Rx Confirmed 04/29/20] atorvastatin 80 mg tablet 80 mg PO QHS #90 tab 08/06/19 [Rx Confirmed 04/29/20] clopidogrel 75 mg tablet 75 mg PO DAILY #90 tab 08/06/19 [Rx Confirmed 04/29/20] isosorbide mononitrate 30 mg tablet,extended release 24 hr 30 mg PO DAILY #90 tab 08/06/19 [Rx Confirmed 04/29/20] brimonidine 0.2 % eye drops 1 drp LEFT EYE BID ml 10/01/19 [History Confirmed 04/29/20] timolol 0.5 % eye drops 1 drp EACH EYE DAILY ml 10/01/19 [History Confirmed 04/29/20] insulin lispro 100 unit/mL subcutaneous solution See Rx Instructions SC DAILY #90 ml 03/22/20 [Rx Confirmed 04/29/20] Fluticasone/Vilanterol [Breo Ellipta 200-25 Mcg INH] 1 inh INHALATION DAILY 03/23/20 [History Confirmed 04/29/20] Hydralazine HCl 25 mg PO TID 03/23/20 [History Confirmed 04/29/20] Metoprolol Succinate [Toprol Xl] 12.5 mg PO DAILY 03/23/20 [History Confirmed 04/29/20] Umeclidinium [place] Inhaler [Incruse Ellipta Inhaler] 1 inh INHALATION DAILY 03/23/20 [History Confirmed 04/29/20] [facility] Medical History Urethral stricture (Acute) Prostate cancer (Acute) Problem with dialysis access (Acute) Chronic renal failure, stage 5 (Chronic) Acute respiratory failure (Acute) CHF exacerbation (Chronic) CKD (chronic kidney disease) (Chronic) Anemia (Acute) Elevated troponin (Acute) Insulin pump titration (Chronic) Diabetes mellitus (Chronic) Mitral regurgitation (Acute) Aortic stenosis (Acute) Acute blood loss anemia (Acute) Paroxysmal atrial fibrillation (Chronic 06/2019) Acute systolic (congestive) heart failure (Chronic) Ischemic cardiomyopathy (Chronic) NSVT (nonsustained ventricular tachycardia) (Chronic) Atherosclerosis of coronary artery of [place] heart without angina pectoris (Chronic) (HFpEF) heart failure with preserved ejection fraction (Chronic) Hyperlipidemia (Chronic) Essential (primary) hypertension (Chronic) Mobitz type I Wenckebach atrioventricular block (Chronic) History of non-ST elevation myocardial infarction (NSTEMI) (Resolved 06/25/19) Incomplete right bundle branch block (Chronic) Pulmonary nodule (Chronic) Chronic hypoxemic respiratory failure (Chronic) COPD (chronic obstructive pulmonary disease) (Chronic) Chronic steroid use (Acute) 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 (Acute) Hyponatremia (Acute) Overweight (Acute) Pedal edema (Acute) Allergic rhinitis (Chronic) Anemia (Chronic) Anemia (Chronic) Benign localized hyperplasia of prostate (Chronic) CKD (chronic kidney disease) stage 4, GFR 15-29 ml/min (Chronic) COPD (chronic obstructive pulmonary disease) (Chronic) Carpal tunnel syndrome (Chronic) Chronic allergic rhinitis (Chronic) Chronic otitis media (Chronic) Dialysis patient (Chronic) Epistaxis (Chronic) Former smoker (Chronic) GERD (gastroesophageal reflux disease) (Chronic) GI bleed (Chronic 06/28/19) History of prostate cancer (Chronic) 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 (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) Low back pain (Chronic) Neuralgia (Chronic) Nonallopathic lesion of lumbar region (Chronic) Nonallopathic lesion of rib cage (Chronic) Nonallopathic lesion of sacral region (Chronic) Nonallopathic lesion of thoracic region, not elsewhere classified (Chronic) Otalgia (Chronic) Otitis externa (Chronic) PVD (peripheral vascular disease) (Chronic) Pain in lower limb (Chronic) Peripheral vascular insufficiency (Chronic) Thoracic back pain (Chronic) Thoracic outlet syndrome (Chronic) Type I diabetes mellitus (Chronic) Vitamin D deficiency (Chronic) post inflammatory pulmonary fibrosis (Chronic) Constipation (Resolved) Serous otitis media (Resolved) Wax in ear (Resolved) Reactive airway disease (Inactive) Surgical History History of left heart catheterization (Chronic 02/09/20) History of coronary artery stent placement (Resolved 06/29/19) H/O inguinal hernia repair (Resolved) H/O prostate biopsy (Resolved) History of appendectomy (Resolved) History of carpal tunnel surgery of left wrist (Resolved) S/P bilateral foot surgery (Resolved) S/P rotator cuff repair (Resolved) Family History Sister Diabetes Father Heart disease Social History Smoking Status: Former smoker quit date: 11/12/13 pack-years: 55 how long ago did patient quit smokin years ago second hand exposure: No alcohol intake: never substance use type: does not use caffeine: Yes Type: coffee Number of servings: 1 HPI HPI HPI: DIVYA HUSAIN, is a 75 M who presents to the office today for HPI HPI Surgical H&P: Yes HPI: DIVYA HUSAIN, is a 75 M who presents to the office today for chronic renal failure stage V. Dr. Bazzi performed a stage I left upper extremity brachial to basilic AV fistula creation on 04/20/20. Patient tolerated the procedure well. ROS General General: Yes fatigue; no weight change, appetite, colon cancer, breast cancer or weakness HEENT HEENT: No difficulty swallowing, eye injury, eye surgery, swollen glands or hoarseness Endo Endocrine: Yes diabetes mellitus; no thyroid disease, thyroid cancer, Hair loss, heat intolerance or cold intolerance Musc Musculoskeletal: Yes arthritis; no back problems, rheumatoid arthritis, gout or joint pain Cardio Cardiovascular: Yes heart disease, high blood pressure, heart attack, heart stent and shortness of breat with exertion; no murmur, pacemaker, atrial fibrillation, palpitations or chest pain Psych Psychiatric: No depression, anxiety or hearing voices Resp Respiratory: Yes shortness of breath, No sleep apnea, No cough, Yes COPD, No asthma, No emphysema, No wheezing Gastro Gastrointestinal: No abdominal pain, No nausea or vomiting, No diarrhea, No constipation, No blood in stool, No acid reflux, No hemorrhoids, No ulcers, No gallbladder problem, No black,tarry stools Bhupinder Hematologic: No blood thinners, No blood disorders, No bleeding, Yes anemia, No blood clots Neuro Neurologic: No weakness Exam Cardio Heart Sounds: no murmurs Date _ Mary Chatman PA-C
[2020-05-03 11:05] VITALS: BMI 23.1
[2020-05-13 16:12] LABS: Hemoglobin 11.3 g/dL (13.0-16.5); Mean Corp Hgb Conc 31.4 g/dL (32-36); Mean Corpuscular Hgb 29.1 pg (27.0-32.0); Mean Corpuscular Volume 92.8 fL (80-94); Mean Platelet Vol. 10.3 fl (6.2-12.0); Platelet Count 187 K/mm3 (150-450); RBC Distribution Width CV 14.4 % (11.6-14.6); RBC Distribution Width SD 48.1 fl (35.1-43.9); Red Blood Count 3.88 M/mm3 (4.6-6.2); White Blood Count 8.5 K/mm3 (4.4-11.0)
[2020-05-13 16:39] LABS: Anion Gap 5 (5-15); BUN 59 mg/dL (7-18); BUN/Creat Ratio 16.1 RATIO (10-20); Calcium,Total 8.4 mg/dL (8.5-10.1); Chloride 96 mmol/L (98-107); Creatinine, Serum 3.66 mg/dL (0.70-1.30); EST Glomerular Filtration Rate 17 mL/min (>60); Est Glom Filt Rate - Afr Amer 21 mL/min (>60); Glucose 172 mg/dL (74-106); Potassium 4.2 mmol/L (3.5-5.1); Sodium Level 134 mmol/L (136-145)
[2020-05-18] VITALS (7 sets, daily range): BP systolic 104–123; BP diastolic 53–71; PULSE 60–69; RESP 16; TEMP 36.7–36.9; O2SAT 96–100; BMI 24.1
[2020-05-18] MEDS: Lactated Ringers 1,000 ML 100 ML IV (10:41)
--- NOTE | 2020-05-18 11:36 | HP.PCM_ITS ---
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 Is patient in pain?: No Allergies amoxicillin [From Augmentin] Allergy (Unknown, Verified 04/29/20 09:04) Unknown clavulanic acid [From Augmentin] Allergy (Unknown, Verified 04/29/20 09:04) Unknown Sulfa (Sulfonamide Antibiotics) Allergy (Unknown, Verified 04/29/20 09:04) Unknown Medications latanoprost 0.005 % eye drops 1 drp EACH EYE DAILY ml 11/15/17 [History Confirmed 04/29/20] albuterol sulfate 90 mcg/actuation aerosol inhaler 2 puff INHALATION Q6H PRN PRN #18 g 08/05/19 [Rx Confirmed 04/29/20] aspirin 81 mg tablet,delayed release 81 mg PO DAILY #90 tab 08/06/19 [Rx Confirmed 04/29/20] atorvastatin 80 mg tablet 80 mg PO QHS #90 tab 08/06/19 [Rx Confirmed 04/29/20] clopidogrel 75 mg tablet 75 mg PO DAILY #90 tab 08/06/19 [Rx Confirmed 04/29/20] isosorbide mononitrate 30 mg tablet,extended release 24 hr 30 mg PO DAILY #90 tab 08/06/19 [Rx Confirmed 04/29/20] brimonidine 0.2 % eye drops 1 drp LEFT EYE BID ml 10/01/19 [History Confirmed 04/29/20] timolol 0.5 % eye drops 1 drp EACH EYE DAILY ml 10/01/19 [History Confirmed 04/29/20] insulin lispro 100 unit/mL subcutaneous solution See Rx Instructions SC DAILY #90 ml 03/22/20 [Rx Confirmed 04/29/20] Fluticasone/Vilanterol [Breo Ellipta 200-25 Mcg INH] 1 inh INHALATION DAILY 03/23/20 [History Confirmed 04/29/20] Hydralazine HCl 25 mg PO TID 03/23/20 [History Confirmed 04/29/20] Metoprolol Succinate [Toprol Xl] 12.5 mg PO DAILY 03/23/20 [History Confirmed 04/29/20] Umeclidinium [place] Inhaler [Incruse Ellipta Inhaler] 1 inh INHALATION DAILY 03/23/20 [History Confirmed 04/29/20] [facility] Medical History Urethral stricture (Acute) Prostate cancer (Acute) Problem with dialysis access (Acute) Chronic renal failure, stage 5 (Chronic) Acute respiratory failure (Acute) CHF exacerbation (Chronic) CKD (chronic kidney disease) (Chronic) Anemia (Acute) Elevated troponin (Acute) Insulin pump titration (Chronic) Diabetes mellitus (Chronic) Mitral regurgitation (Acute) Aortic stenosis (Acute) Acute blood loss anemia (Acute) Paroxysmal atrial fibrillation (Chronic 06/2019) Acute systolic (congestive) heart failure (Chronic) Ischemic cardiomyopathy (Chronic) NSVT (nonsustained ventricular tachycardia) (Chronic) Atherosclerosis of coronary artery of [place] heart without angina pectoris (Chronic) (HFpEF) heart failure with preserved ejection fraction (Chronic) Hyperlipidemia (Chronic) Essential (primary) hypertension (Chronic) Mobitz type I Wenckebach atrioventricular block (Chronic) History of non-ST elevation myocardial infarction (NSTEMI) (Resolved 06/25/19) Incomplete right bundle branch block (Chronic) Pulmonary nodule (Chronic) Chronic hypoxemic respiratory failure (Chronic) COPD (chronic obstructive pulmonary disease) (Chronic) Chronic steroid use (Acute) 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 (Acute) Hyponatremia (Acute) Overweight (Acute) Pedal edema (Acute) Allergic rhinitis (Chronic) Anemia (Chronic) Anemia (Chronic) Benign localized hyperplasia of prostate (Chronic) CKD (chronic kidney disease) stage 4, GFR 15-29 ml/min (Chronic) COPD (chronic obstructive pulmonary disease) (Chronic) Carpal tunnel syndrome (Chronic) Chronic allergic rhinitis (Chronic) Chronic otitis media (Chronic) Dialysis patient (Chronic) Epistaxis (Chronic) Former smoker (Chronic) GERD (gastroesophageal reflux disease) (Chronic) GI bleed (Chronic 06/28/19) History of prostate cancer (Chronic) 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) use of insulin (Chronic) Low back pain (Chronic) Neuralgia (Chronic) Nonallopathic lesion of lumbar region (Chronic) Nonallopathic lesion of rib cage (Chronic) Nonallopathic lesion of sacral region (Chronic) Nonallopathic lesion of thoracic region, not elsewhere classified (Chronic) Otalgia (Chronic) Otitis externa (Chronic) PVD (peripheral vascular disease) (Chronic) Pain in lower limb (Chronic) Peripheral vascular insufficiency (Chronic) Thoracic back pain (Chronic) Thoracic outlet syndrome (Chronic) Type I diabetes mellitus (Chronic) Vitamin D deficiency (Chronic) post inflammatory pulmonary fibrosis (Chronic) Constipation (Resolved) Serous otitis media (Resolved) Wax in ear (Resolved) Reactive airway disease (Inactive) Surgical History History of left heart catheterization (Chronic 02/09/20) History of coronary artery stent placement (Resolved 06/29/19) H/O inguinal hernia repair (Resolved) H/O prostate biopsy (Resolved) History of appendectomy (Resolved) History of carpal tunnel surgery of left wrist (Resolved) S/P bilateral foot surgery (Resolved) S/P rotator cuff repair (Resolved) Family History Sister Diabetes Father Heart disease Social History (Updated 04/29/20 @ 10:22 by Mary Chatman PA-C) Smoking Status: Former smoker quit date: 11/12/13 pack-years: 55 how long ago did patient quit smokin years ago second hand exposure: No alcohol intake: never substance use type: does not use caffeine: Yes Type: coffee Number of servings: 1 HPI HPI HPI: DIVYA HUSAIN, is a 75 M who presents to the office today for HPI HPI Surgical H&P: Yes HPI: DIVYA HUSAIN, is a 75 M who presents to the office today for chronic renal failure stage V. Dr. Bazzi performed a stage I left upper extremity brachial to basilic AV fistula creation on 04/20/20. Patient tolerated the procedure well. Patient denies discomfort/pain at the incision site. He is on dialysis M, W, and F. Patient is currently being treated with IV Benadryl at dialysis and 2 tablets of Benadryl on non-dialysis days for contact dermatitis at the left chest catheter site. Dialysis catheters are otherwise functioning well. He denies any recent hospitalizations or illnesses. He denies complications with MAC anesthesia. ROS General General: Yes fatigue; no weight change, appetite, colon cancer, breast cancer or weakness HEENT HEENT: No difficulty swallowing, eye injury, eye surgery, swollen glands or hoarseness Endo Endocrine: Yes diabetes mellitus; no thyroid disease, thyroid cancer, Hair loss, heat intolerance or cold intolerance Musc Musculoskeletal: Yes arthritis; no back problems, rheumatoid arthritis, gout or joint pain Cardio Cardiovascular: Yes heart disease, high blood pressure, heart attack, heart stent and shortness of breat with exertion; no murmur, pacemaker, atrial fibrillation, palpitations or chest pain Psych Psychiatric: No depression, anxiety or hearing voices Resp Respiratory: Yes shortness of breath, No sleep apnea, No cough, Yes COPD, No asthma, No emphysema, No wheezing Gastro Gastrointestinal: No abdominal pain, No nausea or vomiting, No diarrhea, No constipation, No blood in stool, No acid reflux, No hemorrhoids, No ulcers, No gallbladder problem, No black,tarry stools Bhupinder Hematologic: No blood thinners, No blood disorders, No bleeding, Yes anemia, No blood clots Neuro Neurologic: No weakness Exam Const General: cooperative, healthy appearing, comfortable, no acute distress HENMT Head: normal to inspection Eyes General: appearance normal, both eyes and all related structures Neck Neck: normal visual inspection Neck mass: No Resp Effort & Inspection: normal respiratory effort Auscultation: clear to auscultation bilaterally Cardio Rate: regular rate Rhythm: regular rhythm Heart Sounds: no murmurs GI Inspection: normal to inspection Palpation: soft Auscultation: normal bowel sounds Skin General: no rashes or lesions noted Neuro General: no focal motor deficits, CN's II-XI intact bilaterally Extrem General: normal to inspection Other: left upper extremity AV fistula- incision c/d/i. No erythema or infection noted. Minimal amount of healing abrasion from tape/dressing placement. Fistula with excellent pulse, bruit and thrill. Fistula sounds deep. Psych Appearance: grossly normal Affect: normal affect Assessment & Plan Problems 1. Chronic renal failure, stage 5 N18.5 Plan - Continue hand exercises - Dr. Bazzi will plan to perform stage II transposition of left upper extremity brachial to basilic AV fistula creation. Procedure details, risks and benefits have been explained to the patient. Patient and his have had the opportunity to ask and have questions answered. Patient verbally understands and agrees with the plan. Patient will need to hold his Plavix 2 days prior to the procedure. Coding Level of Care Code Global Post Op Diagnoses Chronic renal failure, stage 5 N18.5 I have re-examined the patient. There are no clinical changes since date of exam. Procedure Criteria Procedure Type: Elective COVID Risk Discussion: The surgeon/proceduralist and patient have discussed in detail the risk of exposure to and/or potential harm posed by the COVID-19 virus with having a surgery/procedure at this time versus the risk of delaying the surgery/procedure. It is not possible to know either the risk of delaying the surgery or procedure or chance of getting an infection with perfect accuracy, but a joint decision was made between the patient and the surgeon/proceduralist to proceed at this time with the scheduled surgery/procedure as indicated on the consent form.
--- NOTE | 2020-05-18 11:39 | DCINST_ITS ---
Discharge Diet: Renal Diet Discharge Activity: May Not Drive - for 2-3 days or while taking narcotic pain medications., May Shower, May Take a Tub Bath - in 5 days. Lifting Restrictions: 5 pounds Keep extremity elevated above heart level: - - Keep arm elevated above the heart level for 3 days. Additional Activity Instructions:: Exercise hand vigorously with a stress ball. Call your doctor if your incision/area has: Continuous Slow Oozing, Sudden Increased Bleeding - apply pressure and call your doctor., Increased Pain/ Swelling, Increased Redness, Foul Smelling Discharge Call your doctor if you observe: Fever of 101 or Higher Suture Line Care: Avoid Pulling/Pushing, Avoid Pinching/Bending Cleanse incision/area with: Keep Dressing Clean & Dry Additional Dressing/Incision Instructions:: You may leave the left upper extremity Fabrice wrap in place for 2 to 3 days depending upon comfort. If it loosens or steps down then please remove it. Please keep your left upper extremity clean and dry for 4 days. You may shower at that time. Remove your Steri-Strips in 8 days. Exercise your left hand with a stress ball Allergies/Adverse Reactions: Allergies amoxicillin [From Augmentin] Allergy (Unknown, Verified 05/18/20 10:25) Unknown clavulanic acid [From Augmentin] Allergy (Unknown, Verified 05/18/20 10:25) Unknown Sulfa (Sulfonamide Antibiotics) Allergy (Unknown, Verified 05/18/20 10:25) Unknown Medications to take at Discharge latanoprost 0.005 % eye drops 1 drp EACH EYE DAILY ml 11/15/17 albuterol sulfate 90 mcg/actuation aerosol inhaler 2 puff INHALATION Q6H PRN PRN #18 g 08/05/19 atorvastatin 80 mg tablet 80 mg PO QHS #90 tab 08/06/19 clopidogrel 75 mg tablet 75 mg PO DAILY #90 tab 08/06/19 isosorbide mononitrate 30 mg tablet,extended release 24 hr 30 mg PO DAILY #90 tab 08/06/19 brimonidine 0.2 % eye drops 1 drp LEFT EYE BID ml 10/01/19 timolol 0.5 % eye drops 1 drp EACH EYE DAILY ml 10/01/19 insulin lispro 100 unit/mL subcutaneous solution See Rx Instructions SC DAILY #90 ml 03/22/20 Hydralazine HCl 25 mg PO TID 03/23/20 Metoprolol Succinate [Toprol Xl] 12.5 mg PO DAILY 03/23/20 Aspirin [Aspirin EC] 81 mg PO DAILY 05/11/20 Fluticasone/Vilanterol [Breo Ellipta 200-25 Mcg INH] 1 ea IH DAILY 05/11/20 Umeclidinium [place] Inhaler [Incruse Ellipta Inhaler] 1 puff IH DAILY 05/11/20 Primary Care Physician: Sb Bolanos DO [Primary Care Provider] - Test Results: Test results from this visit will be discussed in further detail at your follow- up appointment, if applicable. Please Follow Up With: Jose Elias Bazzi MD - [phone] When: Call to make an appointment for suture removal and follow up in 10 days
[2020-05-18] MEDS: Heparin Injection (Vial) 5,000 UNIT/ML VIAL 5000 UNIT (12:20)
[2020-05-18] MEDS: Bupivacaine Mpf 0.5% 30 ML VIAL (12:20)
--- NOTE | 2020-05-18 14:11 | PCM.OPRPT ---
Problem List (1) Problem with dialysis access Status: Acute Qualifiers: Report of Operation Date of Procedure: 05/18/20 Pre-Operative Diagnosis: Stage V chronic renal failure in need of arteriovenous hemodialysis access Post-Operative Diagnosis: Same Surgery/Procedure Performed:: Stage II transposition left upper arm basilic to brachial artery arteriovenous hemodialysis fistula creation with Vascu-Guard bovine graft flow cuffed restriction Description of Surgical Findings:: Timeout and informed consent was obtained. 75-year-old gentleman was taken to the operating placed by the table underwent monitored anesthesia care. The left upper tremor sterilely prepped and draped. It was not anticipated that any prosthetic would be utilized during the case it was anticipated that this would be a completely clean case with no prosthetic so no antibiotics was given initially. At the end of the case at the point where I made a decision to place a Vascu-Guard bovine cuff to help reduce the flow with a fistula I requested 900 mg of clindamycin to be given intravenously. This had to await pharmacy preparation. Throughout the procedure 34 cc of 0.5% lidocaine was used and 20 cc of 1% lidocaine mixed 50-50 with 0.5% Marcaine was used as a local anesthetic. Local was instilled along the upper aspect of the left upper arm a longitudinal incision was created tedious sharp and blunt dissection was used to dissect the basilic vein free this was performed all the way up to the shoulder area side branches were secured with combination of 3-0 Vicryl ligatures and hemoclips. A nicely matured vein was encountered and and harvested. Then the vein was measured. An appropriate curvilinear spot was made in the left upper arm. At this point start blunt dissection used to identify the brachial artery and circumflex circumferential control was obtained. Based upon weight then the patient received 7000 units of heparin. After adequate circulating time the basilic vein was ligated the antecubital space with 3-0 Vicryl ligatures and hemoclips. It was placed through the tunneler and tunneled superficially left upper arm and a slight curvilinear fashion. Then peripheral vascular clamps were placed on the brachial artery 11 blade was used to make an arteriotomy it was extended with Weinberg scissors I attempted to make this only approximately 6 to 7 mm long. And the side anastomosis was created with the vein which had nicely matured. I tried to reduce the size of the vein with my stitching with a running 7-0 Prolene. At the completion however there was an absolutely wonderful pulse thrill within the fistula. Had a good positional lie. However the hand appeared somewhat pale and I was not able to palpate a radial pulse nor Doppler 1. So I elected to place the bovine restrictor cuff. I used a 0.8 x 8 cm piece and ice I shortened the width using appropriate piece wrapped around the proximal portion of the fistula at the arterial anastomosis and I used simple sutures of 6-0 Prolene to help restrict the very proximal portion of the fistula. My initial suturing was little bit snug and I felt that I had too much restriction so I then relaxed that suture placed another 1 and then stick made sure that the cuff was nicely secured against the vein. On measurement lysis appeared to be about 5 mm in diameter. There still remained to be good flow within the fistula and now I had a 1-2+ palpable left radial pulse and a Doppler signal. The hand now appeared to be pink and had capillary refill although not brisk. I felt that I had enough restriction on the fistula to allow flow for the hand but not too much restriction to where the fistula would not be functional. The wound was then closed with multiple sutures of 3-0 Vicryl approximated the subcutaneous tissue. The patient did receive 20 mg of protamine. The skin edges were then approximated a running septic or 4-0 Monocryl. Steri-Strips Telfa 4 x 4 soft roll ABD Fabrice wrap applied. Sponge and instrument and needle counts were reported to the surgeon to be correct. Blood loss was approximately 100 cc. Specimens none. Drains none. Blood loss 100 cc. The patient was taken to the recovery room in satisfactory condition without apparent complication Jose Elias Bazzi M.D., F.A.C.S. Type of Anesthesia:: Local MAC Anesthesiologist: Rudolph Garcia
[2020-05-18 14:51] LABS: Bedside Glucose 244 mg/dL (70-110)
== END 2020-05-18 15:36 | disposition home or self-care (01) ==
LOC: SDC 10:05 → AC 10:06
PROVIDERS: Anesthesiology; PCP Family Medicine; Referring Provider Surgery; Visit Provider Surgery
PROC: (CPT 36819; principal; 2020-05-18 12:00)
DX: T82.898A Other specified complication of vascular prosthetic devices, implants and grafts, initial encounter (principal); E10.22 Type 1 diabetes mellitus with diabetic chronic kidney disease; I13.2 Hypertensive heart and chronic kidney disease with heart failure and with stage 5 chronic kidney disease, or end stage renal disease; N18.5 Chronic kidney disease, stage 5; I50.21 Acute systolic (congestive) heart failure; Z99.2 Dependence on renal dialysis; Z11.59 Encounter for screening for other viral diseases; I25.5 Ischemic cardiomyopathy; I47.2 Ventricular tachycardia; I25.10 Atherosclerotic heart disease of native coronary artery without angina pectoris; E78.5 Hyperlipidemia, unspecified; I25.2 Old myocardial infarction; J44.9 Chronic obstructive pulmonary disease, unspecified; K21.9 Gastro-esophageal reflux disease without esophagitis; I73.9 Peripheral vascular disease, unspecified; I48.0 Paroxysmal atrial fibrillation; G54.0 Brachial plexus disorders; N40.0 Benign prostatic hyperplasia without lower urinary tract symptoms; Z86.2 Personal history of diseases of the blood and blood-forming organs and certain disorders involving the immune mechanism; Z87.19 Personal history of other diseases of the digestive system; Z85.46 Personal history of malignant neoplasm of prostate; Z95.5 Presence of coronary angioplasty implant and graft; Z79.4 Long term (current) use of insulin; Z96.41 Presence of insulin pump (external) (internal); Z79.82 Long term (current) use of aspirin; Z79.02 Long term (current) use of antithrombotics/antiplatelets; Z79.899 Other long term (current) drug therapy; Z87.891 Personal history of nicotine dependence
CPT/HCPCS: 01844; 36819; 36415; 80048; 82962; 85027; 87635; G2023; J7120; U0003

== ENCOUNTER → 2020-05-27 12:47 | Outpatient (CLI) | payer MEDICARE, BC, SELFPAY ==
[2020-05-03 11:05] VITALS: BMI 23.1
[2020-05-18 10:33] VITALS: BMI 24.1
--- NOTE | 2020-05-27 12:47 | ECHOD_ITS ---
Reason For Study: CHF Procedure This was a 2D Doppler, Color Flow transthoracic echocardiogram. Exam performed in department. Left Ventricle Normal LV size. The estimated ejection fraction is 55 %. Normal diastology for age. No regional wall motion abnormalities noted. Right Ventricle Normal RV size. Normal systolic function. Atria The left atrium is mildly enlarged. Normal right atrium. No doppler evidence for ASD. Mitral Valve There is no mitral valve stenosis. No mitral valve insufficiency. Tricuspid Valve There is no tricuspid stenosis. Trivial tricuspid valve insufficiency. Pulmonary artery systolic pressure is 35 mmHg. Aortic Valve Trisinus/trileaflet aortic valve. Moderate diffuse aortic valve thickening. Mild aortic stenosis. No aortic valve insufficiency. Pulmonic Valve There is no pulmonic valvular stenosis. No pulmonic valve insufficiency. Great Vessels Normal aortic root. Pericardium/Pleural No pericardial effusion. MMode/2D Measurements & Calculations LVIDd: 6.0 cm IVSd: 1.1 cm LVOT diam: 2.3 cm LVIDs: 4.7 cm LVPWd: 0.87 cm LVOT area: 4.3 cm2 RVDd: 3.4 cm FS: 21.6 % Ao root diam: 3.7 cm LAV(MOD-bp): 74.2 ml LA A4 area: 21.0 cm2 LAV(MOD-bp) Indexed: 38.8 ml/m2 LAV(MOD-sp2): 70.7 ml LAV(MOD-sp4): 70.9 ml LA dimension(2D): 4.6 cm RA A4 area: 16.8 cm2 Doppler Measurements & Calculations MV E max kae: 114.7 cm/sec Ao V2 max: 265.9 cm/sec LV V1 max: 89.7 cm/sec Ao max P.3 mmHg LV V1 max P.2 mmHg Ao V2 mean: 182.9 cm/sec LV V1 mean P.8 mmHg Ao mean P.9 mmHg LV V1 mean: 64.5 cm/sec Ao V2 VTI: 57.2 cm LV V1 VTI: 20.7 cm TELLY(I,D): 1.6 cm2 TELLY(V,D): 1.4 cm2 SV(LVOT): 88.7 ml PA V2 max: 86.6 cm/sec TR max kae: 270.5 cm/sec TR max P.3 mmHg Interpretation Summary The estimated ejection fraction is 55 %. Normal diastology for age. The left atrium is mildly enlarged. Moderate diffuse aortic valve thickening. Mild aortic stenosis. Ordering Physician: Nando Quick Referring Physician: Sb Bolanos Performed By: Joanne Driver, RDCS, RVT
== END ==
PROVIDERS: PCP Family Medicine; Referring Provider Specialist; Visit Provider Specialist
DX: I35.0 Nonrheumatic aortic (valve) stenosis (principal); I50.9 Heart failure, unspecified; I25.10 Atherosclerotic heart disease of native coronary artery without angina pectoris; I51.9 Heart disease, unspecified; Z95.5 Presence of coronary angioplasty implant and graft
CPT/HCPCS: 93306

== ENCOUNTER → 2020-09-07 12:42 | Outpatient (CLI) | payer MEDICARE, BC, SELFPAY ==
[2020-08-26 13:44] VITALS: BMI 24.7
--- NOTE | 2020-09-07 12:43 | CT_ITS ---
HISTORY: BILAT PULM NODULES, PREV SMOKER FOR 30 YRS X 1 PPD, ON O2 NOW, COPD, HTN, DB, CKD ON DIALYSIS TECHNIQUE: Helically acquired images of the chest were obtained without IV contrast. Number of images including paperwork: [phone]. A radiation dose optimization technique was used for this scan. COMPARISON: 01/28/2019, 08/24/2016 FINDINGS: VASCULATURE: Vascular tortuosity. Atherosclerotic plaque. HEART/PERICARDIUM: Mildly enlarged heart with left ventricular prominence. Coronary calcification. Trace pericardial fluid. MEDIASTINUM: Unremarkable. ADENOPATHY: No pathologic appearing adenopathy. THYROID: Unremarkable visualized portions. LUNG PARENCHYMA: No consolidation or mass. Multiple bilateral lung nodules again seen, similar to previous. Largest nodule measures 8 x 14 mm nodule in the right upper lobe on series 2 image 48, unchanged. Calcific granulomata. Mild to moderate emphysema.. PLEURAL SPACES: Unremarkable. UPPER ABDOMEN: 2 mm left upper pole renal calculus. Increased density in the gallbladder suggestive of a gallstone partially visualized. OSSEOUS AND SOFT TISSUE STRUCTURES: No acute skeletal findings. DEVICES: None. CT/Chest without Contrast IMPRESSION: Lung nodules appear similar to 2016 compatible with benign nodules. Individualized dose optimization techniques were used for this CT. at 0753 Reported and signed by: Emily Martinez MD Electronically Signed: Emily Martinez MD at 7:52 EDT Tel , Service support ,
== END ==
PROVIDERS: PCP Family Medicine; Referring Provider Internal Medicine Critical Care Medicine; Visit Provider Internal Medicine Critical Care Medicine
DX: R91.8 Other nonspecific abnormal finding of lung field (principal)
CPT/HCPCS: 71250

== ENCOUNTER → 2020-11-29 10:03 | Outpatient (CLI) | payer MEDICARE, BC, SELFPAY ==
[2020-11-18 16:41] VITALS: BMI 24.7
== END ==
PROVIDERS: PCP Family Medicine
DX: Z11.59 Encounter for screening for other viral diseases (principal); E11.22 Type 2 diabetes mellitus with diabetic chronic kidney disease; I12.0 Hypertensive chronic kidney disease with stage 5 chronic kidney disease or end stage renal disease; N18.6 End stage renal disease; I70.245 Atherosclerosis of native arteries of left leg with ulceration of other part of foot; I70.213 Atherosclerosis of native arteries of extremities with intermittent claudication, bilateral legs; J98.4 Other disorders of lung; I96 Gangrene, not elsewhere classified; Z99.81 Dependence on supplemental oxygen
CPT/HCPCS: 87635; C9803; U0005; U0003

== ENCOUNTER → 2020-12-30 09:59 | Outpatient (CLI) | payer MEDICARE, BC, SELFPAY ==
[2020-12-30 09:34] VITALS: BMI 24.3
[2020-12-30 10:22] LABS: Absolute Lymphocyte Count 0.68 X10^3/uL (0.83-4.51); Absolute Neutrophil Count 4.9 X10^3/uL (2.0-7.7); Basophil# 0.05 X10^3/uL; Basophil% 0.8 % (0-1); Eosinophil# 0.23 X10^3/uL; Eosinophils% 3.5 % (0-5); Hematocrit 29.5 % (40-54); Hemoglobin 9.2 g/dL (13.0-16.5); Lymphocyte # 0.68 X10^3/ul (4.0); Lymphocyte % 10.2 % (19-41); Mean Corp Hgb Conc 31.2 g/dL (32-36); Mean Corpuscular Hgb 29.4 pg (27.0-32.0); Mean Corpuscular Volume 94.2 fL (80-94); Mean Platelet Vol. 10.6 fl (6.2-12.0); Monocyte# 0.75 X10^3/uL; Monocyte% 11.3 % (0-10); NRBC Flagged by Analyzer 0 % (0-5); Neutrophil # 4.91 X10^3/uL (2.7-7.7); Neutrophil % 73.9 % (47-70); Platelet Count 233 K/mm3 (150-450); RBC Distribution Width SD 47.8 fl (35.1-43.9); Red Blood Count 3.13 M/mm3 (4.6-6.2); White Blood Count 6.6 K/mm3 (4.4-11.0)
[2020-12-30 10:34] LABS: Anion Gap 6 (5-15); BUN 37 mg/dL (7-18); BUN/Creat Ratio 10.7 RATIO (10-20); Calcium,Total 8.7 mg/dL (8.5-10.1); Chloride 97 mmol/L (98-107); Creatinine, Serum 3.47 mg/dL (0.70-1.30); EST Glomerular Filtration Rate 18 mL/min (>60); Est Glom Filt Rate - Afr Amer 22 mL/min (>60); Glucose 132 mg/dL (74-106); Potassium 3.7 mmol/L (3.5-5.1); Sodium Level 136 mmol/L (136-145)
== END ==
PROVIDERS: PCP Family Medicine; Referring Provider Physician Assistant; Visit Provider Physician Assistant
DX: N18.5 Chronic kidney disease, stage 5 (principal)
CPT/HCPCS: 36415; 80048; 85025

== ENCOUNTER 2021-01-13 08:07 | Day surgery (SDC) | payer MEDICARE, BC, SELFPAY ==
[2020-12-30 09:34] VITALS: BMI 24.3
[2021-01-12 07:05] VITALS: BMI 24.3
--- NOTE | 2021-01-13 09:40 | HP.PCM_ITS ---
Problem List (1) Problem with dialysis access Status: Acute Qualifiers: History and Physical Date of Admission: 01/13/21 Intake Visit Reasons: FISTULA INFILTRATION, DIFFICULTY CANNULATION Chief Complaint: check fistula Allergies amoxicillin [From Augmentin] Allergy (Unknown, Verified 12/30/20 09:19) Unknown clavulanic acid [From Augmentin] Allergy (Unknown, Verified 12/30/20 09:19) Unknown Sulfa (Sulfonamide Antibiotics) Allergy (Unknown, Verified 12/30/20 09:19) Unknown Medications latanoprost 0.005 % eye drops 1 drp EACH EYE DAILY ml 11/15/17 [History Confirmed 12/30/20] albuterol sulfate 90 mcg/actuation aerosol inhaler 2 puff INHALATION Q6H PRN PRN #18 g 08/05/19 [Rx Confirmed 12/30/20] brimonidine 0.2 % eye drops 1 drp LEFT EYE BID ml 10/01/19 [History Confirmed 12/30/20] timolol 0.5 % eye drops 1 drp EACH EYE DAILY ml 10/01/19 [History Confirmed 12/30/20] Umeclidinium Dowagiac Inhaler [Incruse Ellipta Inhaler] 1 puff IH DAILY 05/11/20 [History Confirmed 12/30/20] aspirin 81 mg tablet,delayed release 81 mg PO DAILY #90 tab 08/09/20 [Rx Confirmed 12/30/20] isosorbide mononitrate 30 mg tablet,extended release 24 hr 30 mg PO DAILY #90 tab 08/09/20 [Rx Confirmed 12/30/20] metoprolol succinate 25 mg tablet,extended release 24 hr 12.5 mg PO DAILY #45 tab 08/09/20 [Rx Confirmed 12/30/20] atorvastatin 80 mg tablet 80 mg PO QHS #90 tab 08/16/20 [Rx Confirmed 12/30/20] insulin lispro 100 unit/mL subcutaneous solution 80 unit SC DAILY #70 ml 10/15/20 [Rx Confirmed 12/30/20] clopidogrel 75 mg tablet 75 mg PO DAILY #90 tab 10/18/20 [Rx Confirmed 12/30/20] hydralazine 25 mg tablet 25 mg PO TID 90 Days #270 tab 10/18/20 [Rx Confirmed 12/30/20] FOR[facility]LY [facility] Medical History Urethral stricture (Acute) Prostate cancer (Acute) Problem with dialysis access (Acute) Chronic renal failure, stage 5 (Chronic) Acute respiratory failure (Acute) CHF exacerbation (Chronic) CKD (chronic kidney disease) (Chronic) Anemia (Acute) Elevated troponin (Acute) Insulin pump titration (Chronic) Diabetes mellitus (Chronic) Mitral regurgitation (Acute) Aortic stenosis (Acute) Acute blood loss anemia (Acute) Paroxysmal atrial fibrillation (Chronic 06/2019) Acute systolic (congestive) heart failure (Chronic) Ischemic cardiomyopathy (Chronic) NSVT (nonsustained ventricular tachycardia) (Chronic) Atherosclerosis of coronary artery of [place] heart without angina pectoris (Chronic) (HFpEF) heart failure with preserved ejection fraction (Chronic) Hyperlipidemia (Chronic) Essential (primary) hypertension (Chronic) Mobitz type I Wenckebach atrioventricular block (Chronic) History of non-ST elevation myocardial infarction (NSTEMI) (Resolved 06/25/19) Incomplete right bundle branch block (Chronic) Pulmonary nodule (Chronic) Chronic hypoxemic respiratory failure (Chronic) COPD (chronic obstructive pulmonary disease) (Chronic) Chronic steroid use (Acute) 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 (Acute) Hyponatremia (Acute) Overweight (Acute) Pedal edema (Acute) Allergic rhinitis (Chronic) Anemia (Chronic) Anemia (Chronic) Benign localized hyperplasia of prostate (Chronic) CKD (chronic kidney disease) stage 4, GFR 15-29 ml/min (Chronic) COPD (chronic obstructive pulmonary disease) (Chronic) Carpal tunnel syndrome (Chronic) Chronic allergic rhinitis (Chronic) Chronic otitis media (Chronic) Dialysis patient (Chronic) Epistaxis (Chronic) Former smoker (Chronic) GERD (gastroesophageal reflux disease) (Chronic) GI bleed (Chronic 06/28/19) History of prostate cancer (Chronic) 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) Low back pain (Chronic) Neuralgia (Chronic) Nonallopathic lesion of lumbar region (Chronic) Nonallopathic lesion of rib cage (Chronic) Nonallopathic lesion of sacral region (Chronic) Nonallopathic lesion of thoracic region, not elsewhere classified (Chronic) Otalgia (Chronic) Otitis externa (Chronic) PVD (peripheral vascular disease) (Chronic) Pain in lower limb (Chronic) Peripheral vascular insufficiency (Chronic) Thoracic back pain (Chronic) Thoracic outlet syndrome (Chronic) Type I diabetes mellitus (Chronic) Vitamin D deficiency (Chronic) post inflammatory pulmonary fibrosis (Chronic) Constipation (Resolved) Serous otitis media (Resolved) Wax in ear (Resolved) Reactive airway disease (Inactive) Surgical History History of left heart catheterization (Chronic 02/09/20) History of coronary artery stent placement (Resolved 06/29/19) H/O inguinal hernia repair (Resolved) H/O prostate biopsy (Resolved) History of appendectomy (Resolved) History of carpal tunnel surgery of left wrist (Resolved) S/P bilateral foot surgery (Resolved) S/P rotator cuff repair (Resolved) Family History Sister Diabetes Father Heart disease Social History (Updated 12/30/20 @ 10:10 by Mary BULLARD PAGabrielC) Smoking Status: Former smoker quit date: 11/12/13 pack-years: 55 how long ago did patient quit smokin years ago second hand exposure: No alcohol intake: never substance use type: does not use caffeine: Yes Type: coffee Number of servings: 1 HPI HPI HPI: DIVYA HUSAIN, is a 75 M who presents to the office today for HPI HPI Surgical H&P: Yes HPI: DIVYA HUSAIN, is a 75 M who presents to the office today for difficult cannulation and multiple infiltrations. Patient notes for 2 weeks the dialysis center has had difficulties accessing his fistula. He notes he was infiltrated twice within the last 2 weeks. He also notes that yesterday it took 4 different nurses and techs to access his fistula prior to starting treatment. He noted the head nurse was able to finally obtain access. Patient notes the previous Sunday he was infiltrated and was not able to complete treatment that day due to lack of access. He notes having cold hands bilaterally and does not notice a difference since the fistula creation. He is maintained on Plavix and aspirin. He is also on oxygen for COPD. Dr. Reyes is his hazardous substances scientist. He dialyzes M, W, and F. He has a transposed left upper arm basilic vein to brachial artery AV fistula with Vascu-Guard bovine graft flow cuffed restrictor. He has not had a fistulogram procedure previously. ROS General General: Yes fatigue; no weight change, appetite, colon cancer, breast cancer or weakness HEENT HEENT: No difficulty swallowing, eye injury, eye surgery, swollen glands or hoarseness Endo Endocrine: Yes diabetes mellitus; no thyroid disease, thyroid cancer, Hair loss, heat intolerance or cold intolerance Musc Musculoskeletal: Yes arthritis; no back problems, rheumatoid arthritis, gout or joint pain Cardio Cardiovascular: Yes heart disease, high blood pressure, heart attack, heart stent and shortness of breat with exertion; no murmur, pacemaker, atrial fibrillation, palpitations or chest pain Psych Psychiatric: No depression, anxiety or hearing voices Resp Respiratory: Yes shortness of breath, No sleep apnea, No cough, Yes COPD, No asthma, No emphysema, No wheezing Gastro Gastrointestinal: No abdominal pain, No nausea or vomiting, No diarrhea, No constipation, No blood in stool, No acid reflux, No hemorrhoids, No ulcers, No gallbladder problem, No black,tarry stools Bhupinder Hematologic: No blood thinners, No blood disorders, No bleeding, Yes anemia, No blood clots Neuro Neurologic: No weakness Exam Const General: cooperative, comfortable, no acute distress HENMT Head: normal to inspection Eyes General: appearance normal, both eyes and all related structures Neck Neck: normal visual inspection Neck mass: No Resp Effort & Inspection: normal respiratory effort Auscultation: clear to auscultation bilaterally, diminished lung sounds Cardio Rate: regular rate Rhythm: regular rhythm Heart Sounds: no murmurs GI Inspection: normal to inspection Auscultation: normal bowel sounds Skin General: no rashes or lesions noted Neuro General: no focal motor deficits, CN's II-XI intact bilaterally Extrem Other: Left upper extremity fistula- moderate amount of ecchymosis noted. Fistula with good pulse, slightly diminished bruit and thrill. Vein very compressible. Psych Appearance: grossly normal Affect: normal affect Assessment & Plan Problems 1. Chronic renal failure, stage 5 N18.5 2. Problem with dialysis access, initial encounter T82.608A Plan Dr. Bazzi will plan to perform a non-urgent fistulogram of the left upper extremity fistula. He will utilize retrograde access with anticipated proximal fistula perianastomotic stenosis and angioplasty. Patient may have flow restriction secondary to cuff placement. Procedure details, risks and benefits have been explained to the patient. Patient and his have had the opportunity to ask and have questions answered. Patient verbally understands and agrees with the plan. Patient to hold Plavix 2 days prior to the procedure. He will obtain a CBC and BMP today. Orders Orders: Basic Metabolic Profile (BMP) Today N18.5 CBC W/Diff, Automated Today N18.5 Coding Level of Care Code Off vis,est,level 3 Diagnoses Chronic renal failure, stage 5 N18.5 Problem with dialysis access, initial encounter T82.898A ??Encounter type: initial encounter I have re-examined the patient. There are no clinical changes since date of exam.
--- NOTE | 2021-01-13 10:52 | PCM.OPRPT ---
Problem List (1) Problem with dialysis access Status: Acute Qualifiers: Report of Operation Date of Procedure: 01/13/21 Pre-Operative Diagnosis: Transposed left upper extremity basilic vein to brachial artery arteriovenous hemodialysis fistula Post-Operative Diagnosis: Left upper extremity transposed basilic vein to brachial artery arteriovenous hemodialysis fistula with proximal fistula venous stenosis and mid outflow venous stenosis Surgery/Procedure Performed:: Left upper extremity fistulogram with 5 x 2 proximal fistula [employer] angioplasty and 6 x 4 outflow fistula angioplasty. Antegrade and retrograde access technique Description of Surgical Findings:: Timeout and informed consent was obtained. 75-year-old gent was taken to the special procedures lab placed upon the table. 50 mcg of fentanyl 1 mg of Versed were given incident intravenous duration. Ultrasound was used to identify the transposed basilic vein. This was retrograde with flow. 2% lidocaine was instilled under ultrasound guidance micropuncture needle inserted micropuncture wire inserted 6 Lithuanian short sheath dilator was inserted. Then using an 035 angled Glidewire a 4 [place]ian glide catheter was able to gain access to the brachial artery proximal to the anastomosis. 8 cc of 2% lidocaine was given intravenously. This was thought to be contrast material. That maneuver was ceased. Patient had no adverse effect. He was continued to be closely observed. Isovue contrast was then utilized. Fistulogram was obtained. This demonstrated that the previous bovine cuff was in place with a rather narrowed proximal portion the fistula then a very tight area right at the curvature of the fistula. There is also a mid outflow high-grade stenosis area. So I then advanced the 4 [place]ian glide cath was able to put an 035 Magic wire and using a 5 x 2 [employer] wound perform balloon angioplasty of the anastomotic area proximal portion of the fistula and the additional area at the curvature of the proximal portion of the fistula with the balloon. Improved results but not complete results were achieved so that I placed a 6 x 4 [employer] balloon and repeated the dilatation just distal to where the cuff would be. I have she obtained good results with that. The patient did receive 5000 units heparin as I was anticipating more intervention requirement today. Then under ultrasound guidance antegrade with flow gaining access closer to the anastomosis 2% lidocaine was instilled general micropuncture needle the micropuncture wire then a 6 [place]ian short sheath catheter. This gave me access to the high-grade 90% stenosis that was was in the outflow at the curvature with the basilic vein took extract back down to its three affiliated anatomy. I treated that with a 6 x 4 [employer] balloon 2 different insufflations were performed. There was marked improvement. There was good central venous outflow. I elected to cease at this moment. The patient still had what appeared to be a 2+ palpable left radial pulse. Sheaths were removed U sutures of 4-0 nylon was placed there was a good pulse thrill and bruit at the completion the hand was viable with the remaining 2+ radial pulse. Images demonstrate a transposed left upper extremity basilic vein to brachial artery AV fistula. The bovine restricting cuff clearly has the proximal portion of the fistula narrowed down to perhaps a 3 mm lumen. There was successful improvement status post 5 x 2 [employer] angioplasty. At the curvature in the proximal portion the fistula about 3 cm from the anastomosis there was a much more significant area of stenosis of at least 70 to 80%. This also seemed to respond to the 6 x 4 [employer] angioplasty balloon. The midportion of the fissure was normal. At the outflow curvature back to the three affiliated positioning of the basilic vein there was another area of high-grade stenosis of at least 80%. This responded well but to the 6 x 4 [employer] balloon. Impression successfully treated left upper extremity AV fistula. Anticipate next time utilizing a 8 x 4 balloon for the outflow curvature. Hopefully the inflow stays stable. Measurements none. Drains none. Blood loss minimal. Jose Elias Bazzi M.D., F.A.C.S. Type of Anesthesia:: IV Sedation, Local
[2021-01-13 11:11] LABS: Bedside Glucose 120 mg/dL (70-110)
== END 2021-01-13 11:59 | disposition home or self-care (01) ==
LOC: CLSP 08:09
PROVIDERS: PCP Family Medicine; Referring Provider Surgery; Visit Provider Surgery
DX: T82.858A Stenosis of other vascular prosthetic devices, implants and grafts, initial encounter (principal); E10.22 Type 1 diabetes mellitus with diabetic chronic kidney disease; I13.2 Hypertensive heart and chronic kidney disease with heart failure and with stage 5 chronic kidney disease, or end stage renal disease; I50.23 Acute on chronic systolic (congestive) heart failure; N18.5 Chronic kidney disease, stage 5; Z99.2 Dependence on renal dialysis; I48.0 Paroxysmal atrial fibrillation; J96.11 Chronic respiratory failure with hypoxia; E10.51 Type 1 diabetes mellitus with diabetic peripheral angiopathy without gangrene; J44.9 Chronic obstructive pulmonary disease, unspecified; I25.5 Ischemic cardiomyopathy; I47.1 Supraventricular tachycardia; N40.0 Benign prostatic hyperplasia without lower urinary tract symptoms; I44.1 Atrioventricular block, second degree; G54.0 Brachial plexus disorders; E78.5 Hyperlipidemia, unspecified; E55.9 Vitamin D deficiency, unspecified; K21.9 Gastro-esophageal reflux disease without esophagitis; I25.10 Atherosclerotic heart disease of native coronary artery without angina pectoris; I35.0 Nonrheumatic aortic (valve) stenosis; I25.2 Old myocardial infarction; Z86.2 Personal history of diseases of the blood and blood-forming organs and certain disorders involving the immune mechanism; Z87.19 Personal history of other diseases of the digestive system; Z85.46 Personal history of malignant neoplasm of prostate; Z95.5 Presence of coronary angioplasty implant and graft; Z79.4 Long term (current) use of insulin; Z96.41 Presence of insulin pump (external) (internal); Z79.82 Long term (current) use of aspirin; Z79.899 Other long term (current) drug therapy; Z87.891 Personal history of nicotine dependence
CPT/HCPCS: 36902; 76937; 82962; 99152; 99153; Q9967; C1725; C1769

== ENCOUNTER 2021-05-05 09:04 | Day surgery (SDC) | payer MEDICARE, BC, SELFPAY ==
[2021-04-19 13:56] VITALS: BMI 24.3
[2021-05-03 10:46] VITALS: BMI 24.3
[2021-05-04 08:09] VITALS: BMI 24.3
[2021-05-05 09:26] LABS: Hematocrit 34.6 % (40-54); Hemoglobin 10.7 g/dL (13.0-16.5); Mean Corp Hgb Conc 30.9 g/dL (32-36); Mean Corpuscular Hgb 29.6 pg (27.0-32.0); Mean Corpuscular Volume 95.6 fL (80-94); Mean Platelet Vol. 10.5 fl (6.2-12.0); Platelet Count 186 K/mm3 (150-450); RBC Distribution Width CV 15.9 % (11.6-14.6); RBC Distribution Width SD 56.4 fl (35.1-43.9); Red Blood Count 3.62 M/mm3 (4.6-6.2)
[2021-05-05 09:43] LABS: Anion Gap 7 (5-15); BUN 47 mg/dL (7-18); BUN/Creat Ratio 10.9 RATIO (10-20); Calcium,Total 8.6 mg/dL (8.5-10.1); Chloride 95 mmol/L (98-107); EST Glomerular Filtration Rate 14 mL/min (>60); Est Glom Filt Rate - Afr Amer 17 mL/min (>60); Glucose 197 mg/dL (74-106); Potassium 3.8 mmol/L (3.5-5.1); Sodium Level 134 mmol/L (136-145)
--- NOTE | 2021-05-05 10:31 | HP.PCM_ITS ---
History and Physical Date of Admission: 05/05/21 Intake Visit Reasons: DECREASE ACCESS FLOWS Chief Complaint: check fistula Knuckle Strap Sewer Required: No Is patient in pain?: No Allergies amoxicillin [From Augmentin] Allergy (Unknown, Verified 04/19/21 13:57) Unknown clavulanic acid [From Augmentin] Allergy (Unknown, Verified 04/19/21 13:57) Unknown Sulfa (Sulfonamide Antibiotics) Allergy (Unknown, Verified 04/19/21 13:57) Unknown Medications latanoprost 0.005 % eye drops 1 drp EACH EYE DAILY ml 11/15/17 [History Confirmed 04/19/21] albuterol sulfate 90 mcg/actuation aerosol inhaler 2 puff INHALATION Q6H PRN PRN #18 g 08/05/19 [Rx Confirmed 04/19/21] brimonidine 0.2 % eye drops 1 drp LEFT EYE BID ml 10/01/19 [History Confirmed 0 04/19/21] timolol 0.5 % eye drops 1 drp EACH EYE DAILY ml 10/01/19 [History Confirmed 04/19/21] umeclidinium 1 puff IH DAILY 05/11/20 [History Confirmed 04/19/21] aspirin 81 mg tablet,delayed release 81 mg PO DAILY #90 tab 08/09/20 [Rx Confirmed 04/19/21] isosorbide mononitrate 30 mg tablet,extended release 24 hr 30 mg PO DAILY #90 tab 08/09/20 [Rx Confirmed 04/19/21] metoprolol succinate 25 mg tablet,extended release 24 hr 12.5 mg PO DAILY #45 tab 08/09/20 [Rx Confirmed 04/19/21] atorvastatin 80 mg tablet 80 mg PO QHS #90 tab 08/16/20 [Rx Confirmed 04/19/21] insulin lispro 100 unit/mL subcutaneous solution 80 unit SC DAILY #70 ml 10/15/20 [Rx Confirmed 04/19/21] clopidogrel 75 mg tablet 75 mg PO DAILY #90 tab 10/18/20 [Rx Confirmed 04/19/21] hydralazine 25 mg tablet 25 mg PO TID 90 Days #270 tab 10/18/20 [Rx Confirmed 04/19/21] ergocalciferol (vitamin D2) 1,250 mcg (50,000 unit) capsule ea PO 02/15/21 [History Confirmed 04/19/21] fluticasone fur. 200 mcg-umeclid 62.5 mcg-vilant 25 mcg inhalat.powder 1 inh INHALATION DAILY #60 each 02/24/21 [Rx Confirmed 04/19/21] fluticasone furoate 200 mcg-vilanterol 25 mcg/dose inhalation powder 1 inh INHALATION DAILY 02/24/21 [History Confirmed 04/19/21] [facility] Medical History (HFpEF) heart failure with preserved ejection fraction Acute blood loss anemia Acute respiratory failure Acute systolic (congestive) heart failure Allergic rhinitis Anemia Anemia Anemia Aortic stenosis Atherosclerosis of coronary artery of galena heart without angina pectoris Benign localized hyperplasia of prostate Carpal tunnel syndrome CHF exacerbation Chronic allergic rhinitis Chronic hypoxemic respiratory failure Chronic otitis media Chronic renal failure, stage 5 Chronic steroid use CKD (chronic kidney disease) CKD (chronic kidney disease) stage 4, GFR 15-29 ml/min Constipation COPD (chronic obstructive pulmonary disease) COPD (chronic obstructive pulmonary disease) Diabetes mellitus Dialysis patient Elevated troponin Epistaxis Essential (primary) hypertension Former smoker GERD (gastroesophageal reflux disease) GI bleed (06/28/19) History of non-ST elevation myocardial infarction (NSTEMI) (06/25/19) History of prostate cancer Hyperlipidemia 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 Hyponatremia Incomplete right bundle branch block Insulin pump titration Ischemic cardiomyopathy [facility] (current) use of insulin Low back pain Mitral regurgitation Mobitz type I Wenckebach atrioventricular block Neuralgia Nonallopathic lesion of lumbar region Nonallopathic lesion of rib cage Nonallopathic lesion of sacral region Nonallopathic lesion of thoracic region, not elsewhere classified NSVT (nonsustained ventricular tachycardia) Otalgia Otitis externa Overweight Pain in lower limb Paroxysmal atrial fibrillation (06/2019) Pedal edema 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 Problem with dialysis access Prostate cancer Pulmonary nodule PVD (peripheral vascular disease) Reactive airway disease Serous otitis media Thoracic back pain Thoracic outlet syndrome Type I diabetes mellitus Urethral stricture Vitamin D deficiency Wax in ear Surgical History H/O inguinal hernia repair H/O prostate biopsy History of appendectomy History of carpal tunnel surgery of left wrist History of coronary artery stent placement (06/29/19) History of left heart catheterization (02/09/20) S/P bilateral foot surgery S/P rotator cuff repair Family History Sister Diabetes Father Heart disease Social History Smoking Status: Former smoker quit date: 11/12/13 pack-years: 55 how long ago did patient quit smokin years ago second hand exposure: No alcohol intake: never substance use type: does not use caffeine: Yes Type: coffee Number of servings: 1 HPI HPI HPI: DIVYA HUSAIN, is a 76 M who presents to the office today for decreased access flows. Patient's last intervention with Dr. Bazzi was on 01/13/21. Findings demonstrated proximal fistula venous stenosis and mid outflow venous stenosis. Antegrade and retrograde access was utilized. A 5 x 2 proximal fistula Conquest angioplasty and 6 x 4 outflow angioplasty was performed. Patient denies pain at the fistula site. He notes average 5- 10 minutes of post-treatment pressure on the needle access sites. Fistulogram images demonstrated: Images demonstrate a transposed left upper extremity basilic vein to brachial artery AV fistula. The bovine restricting cuff clearly has the proximal portion of the fistula narrowed down to perhaps a 3 mm lumen. There was successful improvement status post 5 x 2 ConQuest angioplasty. At the curvature in the proximal portion the fistula about 3 cm from the anastomosis there was a much more significant area of stenosis of at least 70 to 80%. This also seemed to respond to the 6 x 4 ConQuest angioplasty balloon. The midportion of the fissure was normal. At the outflow curvature back to the galena positioning of the basilic vein there was another area of high-grade stenosis of at least 80%. This responded well but to the 6 x 4 ConQuest balloon. Patient dialyzes on M, W and F. 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 He has a transposed left upper arm basilic vein to brachial artery AV fistula with Vascu- Guard bovine graft flow cuffed restrictor. Patient is maintained on Plavix and aspirin. He is on portable oxygen via nasal canula for COPD. History of prostate cancer. He has an insulin pump. He denies recent hospitalizations or illnesses since his last visit. ROS General General: No weight change, appetite, fatigue, colon cancer, breast cancer or weakness HEENT HEENT: Yes eye injury and eye surgery; No difficulty swallowing, swollen glands or hoarseness Endo Endocrine: Yes diabetes mellitus; No thyroid disease, thyroid cancer, Hair loss, heat intolerance or cold intolerance Skin Skin: No rash or changing moles Breast Breast: No left breast lump, right breast lump, nipple discharge, breast pain, abnormal mammogram, abnormal US or breast enlargement Musc Musculoskeletal: No back problems, arthritis, rheumatoid arthritis, gout or joint pain Cardio Cardiovascular: Yes heart disease and high blood pressure; No murmur, pacemaker, atrial fibrillation, heart attack, heart stent, palpitations, shortness of breat with exertion or chest pain Psych Psychiatric: No depression, anxiety or hearing voices Resp Respiratory: Yes shortness of breath, No sleep apnea, No cough, Yes COPD, Yes asthma, No emphysema and No wheezing Gastro Gastrointestinal: No abdominal pain, No nausea or vomiting, No diarrhea, No constipation, No blood in stool, No acid reflux, No hemorrhoids, No ulcers, No gallbladder problem and No black,tarry stools Bhupinder Hematologic: Yes blood thinners, No blood disorders, No bleeding, Yes anemia and No blood clots Neuro Neurologic: No system reviewed and no additional complaints, except as documented, No as per HPI, No abnormal gait, No abnormal hearing, No abnormal movements, No abnormal speech, No behavioral changes, No burning sensations, No confusion, No convulsions, No disequilibrium, No dizziness, No localized weakness, No frequent falls, No headache(s), No lack of coordination, No loss of vision, No memory loss, No numbness, No other visual disturbances, No radicular pain, No restless legs, No sensory deficit, No syncope, No tingling, No tremor(s), No weakness and No other Exam Const General: cooperative, comfortable and no acute distress Nutritional Appearance: cachectic [facility] Head: normal to inspection Eyes General: appearance normal, both eyes and all related structures Neck Neck: normal visual inspection Neck mass: No Resp Effort & Inspection: normal respiratory effort Auscultation: clear to auscultation bilaterally Cardio Rate: regular rate Rhythm: regular rhythm GI Inspection: normal to inspection Auscultation: normal bowel sounds Musc Cervical Spine: normal cervical lordosis Thoracic/Lumbar Spine: thoracic and lumbar spine normal to inspection Skin General: no rashes or lesions noted Neuro General: no focal motor deficits Extrem General: normal to inspection Other: Left upper extremity- good pulse. Diminished bruit and thrill. Psych Appearance: grossly normal Affect: normal affect COVID (Procedure Consent) Procedure Criteria Procedure Criteria: Yes Elective The surgeon/proceduralist and patient have discussed in detail the risk of exposure to and/or potential harm posed by the COVID-19 virus with having a surgery/procedure at this time versus the risk of delaying the surgery/procedure. It is not possible to know either the risk of delaying the surgery or procedure or chance of getting an infection with perfect accuracy, but a joint decision was made between the patient and the surgeon/proceduralist to proceed at this time with the scheduled surgery/procedure as indicated on the consent form. Assessment and Plan Assessment and Plan (1) Problem with dialysis access: Status: Acute Plan - PHONG DanielC: Dr. Bazzi will plan to perform a left upper extremity fistulogram. Per last intervention report, anticipate utilizing an 8 x 4 balloon for outflow curvature. Also on last report both antegrade and retrograde access was utilized. Procedure details, risks and benefits have been explained. Patient and his have had the opportunity to ask and have questions answered. Patient verbally understands and agrees with the plan. Patient to hold Plavix for 2 days. Continue aspirin. Coding Level of Care Code Off vis,est,level 3 Diagnoses Problem with dialysis access T82.898A I have re-examined the patient. There are no clinical changes since date of exam.
--- NOTE | 2021-05-05 12:01 | PCM.OPRPT ---
Problems Associated Problem List Diagnoses (1) Problem with dialysis access: Report of Operation Date of Procedure: 05/05/21 Pre-Operative Diagnosis: Problem with dialysis access Post-Operative Diagnosis: Proximal and distal left upper extremity transposed basilic vein to brachial artery venous stenosis. Surgery/Procedure Performed:: Left upper extremity fistulogram with 6 x 2 conquest angioplasty of the proximal fistula perianastomotic and 8 x 2 Cutting Balloon angioplasty was subsequently 8 x 2 conquest angioplasty of the venous outflow proximal left upper arm Description of Surgical Findings:: Timeout and informed consent was obtained. 76-year-old gent was taken to the special procedure lab placed on the table. The left upper extremity sterilely prepped and draped. 50 mcg of fentanyl 1 mg of Versed given significant sedation. Ultrasound was used to identify the transposed basilic vein in the left upper arm slightly more centrally placed. Under ultrasound guidance 2% lidocaine was instilled as local anesthetic and then a micropuncture needle was placed retrograde with flow. Micropuncture wire. 6 [place] short sheath dilator was inserted. An 035 angled Glidewire was used to place a 4 [place] glide cath into the brachial artery proximal to the anastomosis. Using Isovue contrast hand-injection performed obtaining a fistulogram. This demonstrated 70 to 80% stenosis of the inflow over a 2 to 3 cm length and a high-grade 90% outflow stenosis of the basilic vein and have it at its curvature in the proximal upper arm back into its ruby position. Patient received 5000 units of heparin. I placed a 6 x 2 conquest balloon and perform balloon angioplasty of the periarterial anastomotic area and proximal inflow venous stenosis. 3 different insufflations were performed up to 35 rich of pressure. He tolerated that well completion views suggested resolution of the area of stenosis. I then utilized 2% lidocaine and gained antegrade access to the fistula and placed a micropuncture needle micropuncture wire micropuncture sheath 035 J-wire and then a 7 [place] sheath. The venous outflow was then treated with an 8 x 2 Cutting Balloon. Several different insufflations were performed with incomplete release. The balloon ended up puncturing itself and had to be removed. The stenosis was not resolved so I placed an 8 x 2 conquest balloon and further gentle angioplasty was performed up to 20 rich of pressure. A follow-up image was obtained demonstrating almost complete resolution so I then replaced the conquest balloon and we insufflated that to 35 mmHg pressure. Final images now demonstrated complete resolution. Sheaths were removed and U sutures of 4-0 nylon was placed. There was an excellent pulse thrill and bruit to completion. He had a 2+ left radial pulse at the completion. Blood loss was minimal no apparent complication. Images demonstrate a transposed left upper arm basilic vein to brachial artery AV fistula. There is suggestion of diffuse narrowing of the proximal portion of the fascia adjacent the anastomosis consistent with the previously placed restricting cough. There was some slight aneurysmal dilatation then a secondary area of 70% narrowing. Subsequent to the 6 x 2 conquest angioplasty this resolved. There was outflow stenosis of the basilic vein and its curvature back into its ruby position. This was improved with the 8 x 2 cutting balloon and then resolved with the 8 x 2 conquest balloon. Good central venous flow. Jose Elias Bazzi M.D., F.A.C.S. Surgeon: Jose Elias Bazzi Type of Anesthesia: IV Sedation and Local
== END 2021-05-05 13:10 | disposition home or self-care (01) ==
PROVIDERS: PCP Family Medicine; Visit Provider Surgery
DX: T82.858A Stenosis of other vascular prosthetic devices, implants and grafts, initial encounter (principal); I13.2 Hypertensive heart and chronic kidney disease with heart failure and with stage 5 chronic kidney disease, or end stage renal disease; E10.22 Type 1 diabetes mellitus with diabetic chronic kidney disease; N18.5 Chronic kidney disease, stage 5; I50.21 Acute systolic (congestive) heart failure; Z99.2 Dependence on renal dialysis; J44.9 Chronic obstructive pulmonary disease, unspecified; K21.9 Gastro-esophageal reflux disease without esophagitis; I25.2 Old myocardial infarction; E78.5 Hyperlipidemia, unspecified; I25.5 Ischemic cardiomyopathy; N40.0 Benign prostatic hyperplasia without lower urinary tract symptoms; I35.0 Nonrheumatic aortic (valve) stenosis; E10.51 Type 1 diabetes mellitus with diabetic peripheral angiopathy without gangrene; E55.9 Vitamin D deficiency, unspecified; I48.0 Paroxysmal atrial fibrillation; G54.0 Brachial plexus disorders; I25.10 Atherosclerotic heart disease of native coronary artery without angina pectoris; I47.1 Supraventricular tachycardia; Z86.2 Personal history of diseases of the blood and blood-forming organs and certain disorders involving the immune mechanism; Z85.46 Personal history of malignant neoplasm of prostate; Z87.19 Personal history of other diseases of the digestive system; Z79.4 Long term (current) use of insulin; Z79.82 Long term (current) use of aspirin; Z79.02 Long term (current) use of antithrombotics/antiplatelets; Z79.899 Other long term (current) drug therapy; Z87.891 Personal history of nicotine dependence
CPT/HCPCS: 36415; 36902; 76937; 80048; 85027; 99152; 99153; Q9967; C1725; C1769; C1894

== ENCOUNTER → 2021-08-08 12:58 | Outpatient (CLI) | payer MEDICARE, BC, SELFPAY ==
--- NOTE | 2021-08-08 13:07 | RAD_ITS ---
STUDY: X-RAY CHEST REASON FOR EXAM: Male, 76 years old. + COVID -- HX OF COPD TECHNIQUE: PA and lateral chest radiographs COMPARISON: 03/25/2020 FINDINGS: Diffuse left and mid to lower right lung infiltrative and patchy opacities. Small left pleural effusion. Normal size heart. Normal mediastinum and jessica. Normal visualized pulmonary arteries. There is atherosclerotic calcification of the aortic arch with tortuosity. There are diffuse degenerative changes of the visualized thoracic spine. Normal visualized ribs, clavicles, and shoulders. There is no demonstrated abnormality of the visualized soft tissue structures of the upper abdomen. RAD/Chest PA and Lateral IMPRESSION: Findings suggest Covid pneumonia. Electronically Signed: Bebo Michaels MD at 7:57 EDT Tel , Service support ,
== END ==
PROVIDERS: PCP Family Medicine; Visit Provider Internal Medicine Nephrology
DX: J18.9 Pneumonia, unspecified organism (principal)
CPT/HCPCS: 71046

== ENCOUNTER 2021-08-15 06:54 | Inpatient (IN) | payer MEDICARE, BC, SELFPAY ==
[2021-08-15] VITALS (24 sets, daily range): BP systolic 99–161; BP diastolic 43–117; PULSE 72–124; RESP 12–36; TEMP 36.2–36.9; O2SAT 61–100; BMI 26.6; BMI 26.4
--- NOTE | 2021-08-15 06:59 | EKG12_ITS ---
Test Reason : SOB Blood Pressure : / mmHG Vent. Rate : 125 BPM Atrial Rate : 129 BPM P-R Int : 000 ms QRS Dur : 144 ms QT Int : 386 ms P-R-T Axes : 000 -17 115 degrees QTc Int : 557 ms Somatic/Motion Artifact Wide QRS tachycardia :Consider Sinus Tachycardia Left bundle branch block Abnormal ECG Confirmed by EDDA SPAULDING, MEDARDO ([id number]), design editor TWIN ESPINOZA ([id number]) on 08/16/2021 8:43:42 AM Referred By: ANA CRISTINA Confirmed By:MEDARDO BAÑUELOS MD
--- NOTE | 2021-08-15 06:59 | RAD_ITS ---
STUDY: X-RAY CHEST REASON FOR EXAM: Male, 76 years old. chest pain TECHNIQUE: Single AP portable view of the chest. COMPARISON: 08/08/2021 FINDINGS: Increase in alveolar opacity in the left lung consistent with worsening left-sided pneumonia. No change in right-sided pneumonia. There is no demonstrated pleural abnormality. Normal size heart. Normal mediastinum and jessica. Normal visualized pulmonary arteries. Normal visualized aortic arch and descending thoracic aorta. Normal visualized thoracic spine. Normal visualized ribs, clavicles, and shoulders. There is no demonstrated abnormality of the visualized soft tissue structures of the upper abdomen. RAD/Chest 1 View (Portable) IMPRESSION: Slight worsening of pneumonia on the left. Electronically Signed: Derrick Trivedi MD at 8:09 EDT Tel , Service support ,
[2021-08-15] MEDS: MethylPREDNISolone 125 MG/2 ML Vial IV (07:05)
[2021-08-15] MEDS: Albuterol 2.5 MG/3 ML VIAL.NEB. INHALATION ×2 (07:12)
[2021-08-15] MEDS: Ipratropium/Albuterol Sulfate 3 ML AMPUL.NEB INHALATION ×3 (07:12→19:19)
--- NOTE | 2021-08-15 07:14 | ED.VIS.DYS ---
HPI History of Present Illness Chief Complaint: Shortness of Breath Narrative Narrative: 76-year-old male with history of COPD, hypertension, hyperlipidemia, end-stage renal disease on dialysis presenting with shortness of breath. Patient states that his typical schedule was Sunday, Sunday, Sunday however due to the development of having COVID-19 3 weeks ago the patient had [facility] in the days was changed to Sunday, , Sunday. Patient arrives on CPAP and does appear to be alert and awake. No reported breathing treatments prior to arrival. Patient's family states that he was otherwise normal last night and recently. He normally wears 4 L of oxygen via nasal cannula. Upon awakening today the patient was found to be dyspneic. Patient denies any chest pain. Reportedly he had COVID-19 about 3 weeks ago. He was sent on 09 August to have a chest x-ray for evaluation and the patient's family state that they were not informed of any abnormalities. [facility] Medical History (HFpEF) heart failure with preserved ejection fraction Acute blood loss anemia Acute respiratory failure Allergic rhinitis Anemia Atherosclerosis of coronary artery of [place] heart without angina pectoris Benign localized hyperplasia of prostate Carpal tunnel syndrome Chronic allergic rhinitis Chronic hypoxemic respiratory failure Chronic kidney disease, stage V requiring chronic dialysis Chronic otitis media Chronic steroid use CKD (chronic kidney disease) stage 4, GFR 15-29 ml/min Constipation COPD (chronic obstructive pulmonary disease) COPD (chronic obstructive pulmonary disease) Diabetes mellitus Dialysis patient Elevated troponin Epistaxis Essential (primary) hypertension Former smoker GERD (gastroesophageal reflux disease) GI bleed (06/28/19) History of non-ST elevation myocardial infarction (NSTEMI) (02/03/20) History of prostate cancer Hyperlipidemia 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 Hyponatremia Incomplete right bundle branch block Insulin pump titration Ischemic cardiomyopathy [facility] (current) use of insulin Low back pain Mobitz type I Wenckebach atrioventricular block Neuralgia Nonallopathic lesion of lumbar region Nonallopathic lesion of rib cage Nonallopathic lesion of sacral region Nonallopathic lesion of thoracic region, not elsewhere classified NSVT (nonsustained ventricular tachycardia) Otalgia Otitis externa Overweight Pain in lower limb Paroxysmal atrial fibrillation (06/2019) Pedal edema Peripheral vascular insufficiency 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 Pulmonary nodule PVD (peripheral vascular disease) Reactive airway disease Serous otitis media Thoracic back pain Thoracic outlet syndrome Type I diabetes mellitus Urethral stricture Vitamin D deficiency Wax in ear Home Medications latanoprost 0.005 % eye drops 1 drp EACH EYE DAILY ml 11/15/17 [History Last Taken 03/25/20 06:00 1 DRP] albuterol sulfate 90 mcg/actuation aerosol inhaler 2 puff INHALATION Q6H PRN PRN #18 g 08/05/19 [Rx Last Taken Unknown] brimonidine 0.2 % eye drops 1 drp LEFT EYE BID ml 10/01/19 [History Last Taken 05/05/21] timolol 0.5 % eye drops 1 drp EACH EYE DAILY ml 10/01/19 [History Last Taken 03/25/20 06:00 1 DRP] aspirin 81 mg tablet,delayed release 81 mg PO DAILY #90 tab 08/09/20 [Rx Last Taken Unknown] isosorbide mononitrate 30 mg tablet,extended release 24 hr 30 mg PO DAILY #90 tab 08/09/20 [Rx Last Taken 05/05/21] atorvastatin 80 mg tablet 80 mg PO QHS #90 tab 08/16/20 [Rx Last Taken Unknown] clopidogrel 75 mg tablet 75 mg PO DAILY #90 tab 10/18/20 [Rx Last Taken 05/01/21] ergocalciferol (vitamin D2) 1,250 mcg (50,000 unit) capsule 1,250 mcg PO DAILY 02/15/21 [History Last Taken Unknown] hydralazine 25 mg tablet 25 mg PO TID tab 05/31/21 [History Last Taken Unknown] insulin lispro 100 unit/mL subcutaneous solution 80 unit SC DAILY #70 ml 06/07/21 [Rx Last Taken Unknown] fluticasone fur. 200 mcg-umeclid 62.5 mcg-vilant 25 mcg inhalat.powder 1 inh INHALATION DAILY #60 each 06/15/21 [Rx Last Taken Unknown] metoprolol succinate 25 mg tablet,extended release 24 hr 12.5 mg PO DAILY #45 tab 08/10/21 [Rx Last Taken Unknown] Allergy/AdvReac Type Severity Reaction Status Date / Time amoxicillin [From Augmentin] Allergy Unknown Unknown Verified 06/07/21 11:10 clavulanic acid Allergy Unknown Unknown Verified 06/07/21 11:10 [From Augmentin] Sulfa (Sulfonamide Allergy Unknown Unknown Verified 06/07/21 11:10 Antibiotics) Family History Sister Diabetes Father Heart disease Surgical History H/O inguinal hernia repair H/O prostate biopsy History of appendectomy History of carpal tunnel surgery of left wrist History of coronary artery stent placement (06/29/19) History of femoropopliteal bypass (01/2021) History of left heart catheterization (02/09/20) Problem with dialysis access (05/05/21) S/P bilateral foot surgery S/P rotator cuff repair Social History Smoking Status: Former smoker quit date: 11/12/13 pack-years: 53 how long ago did patient quit smokin years ago second hand exposure: No alcohol intake: never substance use type: does not use caffeine: Yes Type: coffee Number of servings: 1 ROS ROS ED Constitutional Constitutional ED: Denies chills or fever(s) Eyes Eyes: Denies blurry vision or diplopia ENT ENT ED: Denies rhinorrhea or sore throat Cardiovascular Cardiovascular: Denies chest pain Respiratory/Chest Respiratory/Chest: Reports cough, dyspnea and dyspnea on exertion Gastrointestinal Gastrointestinal: Denies abdominal pain, nausea or vomiting Genitourinary Genitourinary ED: Denies dysuria or hematuria Musculoskeletal Musculoskeletal: Denies arthralgias, back pain, myalgias or neck pain Integumentary Denies abscess or rash Neurologic Neurologic: Denies headache(s) or paresthesias EXAM Physical Exam Const Vital Signs: 08/15/21 06:55 08/15/21 06:58 08/15/21 06:59 Temperature 97.7 F L Temperature Source Temporal Pulse Rate 72 124 H Respiratory Rate 36 H 34 H Respiratory Effort Short of Breath Labored Accessory Muscle Use Respiratory Pattern Tachypnea Blood Pressure 161/117 H Blood Pressure Mean 131 Pulse Ox 64 61 Oxygen Delivery Method Bi-pap CPAP Oxygen Flow Rate (L/min) Fraction of Inspired Oxygen (FIO2) 08/15/21 07:01 08/15/21 07:02 08/15/21 07:05 Temperature 97.7 F L Temperature Source Temporal Pulse Rate 124 H 123 H Respiratory Rate 27 H 27 H Respiratory Effort Respiratory Pattern Blood Pressure 142/93 H 142/93 H Blood Pressure Mean 109 109 Pulse Ox 61 100 Oxygen Delivery Method Bi-pap CPAP CPAP Oxygen Flow Rate (L/min) 15 Fraction of Inspired Oxygen (FIO2) 08/15/21 07:20 08/15/21 07:28 08/15/21 07:54 Temperature Temperature Source Pulse Rate 107 H 105 H 117 H Respiratory Rate 28 H 20 H 20 H Respiratory Effort Respiratory Pattern Tachypnea Tachypnea Blood Pressure 134/77 H Blood Pressure Mean 96 Pulse Ox 80 100 97 Oxygen Delivery Method Room Air Oxygen Flow Rate (L/min) Fraction of Inspired Oxygen (FIO2) 100 65 08/15/21 08:00 08/15/21 08:01 08/15/21 08:46 Temperature 97.1 F L Temperature Source Temporal Pulse Rate 117 H 97 Respiratory Rate 24 H 22 H Respiratory Effort Respiratory Pattern Blood Pressure 149/92 H 127/59 H Blood Pressure Mean 111 81 Pulse Ox 92 93 100 Oxygen Delivery Method Bi-pap Bi-pap Oxygen Flow Rate (L/min) Fraction of Inspired Oxygen (FIO2) 100 Positive well nourished General Appearance ED: other On CPAP appears to be awake and alert. ; Negative for pallor HEENT Reports dry mucous membranes atraumatic Mouth ED: Yes dry mucous membranes Mouth: dry mucous membranes Eyes PERRL and EOMs intact bilaterally Resp Effort and Inspection: tachypneic, labored and retractions Auscultation: wheezes throughout and diminished lung sounds diffuse Cardio regular rhythm Rate: tachycardic GI non-tender Palpation: soft Extremity General Extremety ED: Yes edema; Negative for tenderness General Extremity: edema Neuro oriented x3 and CN's II-XII intact bilaterally Sensorium / Orientation: alert Psych Attitude: agitated Thought Process: normal thought process Skin General Skin Exam: Negative for jaundice or pallor Rashes: no rashes MDM MDM MDM Narrative Medical decision making narrative: Patient presenting with shortness of breath. Patient reportedly had COVID-19 3 weeks ago. I can find no results for this in the system or in [facility]. The patient was vaccinated with the Pfizer vaccine. Prior to having COVID-19. His states that they do not have any record of his positive Covid status but states that he has been tested multiple times and had been positive. Patient was sent for a chest x-ray on August 09 at [facility] which showed concern for COVID-19 pneumonitis. The patient's family did not receive this result. Patient was tachypneic, wheezing, having labored breathing and accessory muscle use. Patient was given breathing treatments and Solu-Medrol and placed on BiPAP. He is reevaluated 10 minutes later and appears to be comfortable. His oxygen saturation is 100%. There is no longer any accessory muscle use. EKG on my interpretation shows a sinus rhythm with a ventricular rate of 25 bpm with left bundle branch block. Patient does deny any chest pain. Patient wears 4 L at baseline and is requiring BiPAP therefore likely he will need to be admitted. Patient did get anxious wearing a BiPAP mask and was given 0.5 mg of Ativan and feels very comfortable currently. Patient does have a white blood cell count of 14.1, hemoglobin is 8.4 however the patient has chronic renal disease and is hemoglobin does wax and wane. Platelets are normal. Creatinine is 5.10 however the patient needs dialysis. Potassium is normal. Troponin is 52. BNP 795 but again the patient needs dialysis today. Lactic acid returned 6.3. Since the patient is currently awaiting dialysis I did not give him IV fluids. Possible his lactic acid and white blood cell count could be from his respiratory distress but given his chest x-ray which on my interpretation shows worsening of his pneumonia Rocephin and azithromycin to cover for bacterial infection. Patient currently medically stable. I did speak with the hospitalist who agreed that Rocephin azithromycin should be given. She wanted a noncontrast CT scan of his chest which can be followed on the medical floor. Patient will also need dialysis today. Given that this patient's white blood cell count is elevated and he has SIRS criteria in addition to an elevated lactic acid at over 6 he does technically meet severe sepsis criteria. Again I did withhold fluids as I did not want to volume overload him given that he needs dialysis today. He has remained normotensive and his heart rate is now under 100. This was also discussed with the hospitalist. Patient will be admitted in stabilized condition. Impression: 1. Hypoxic respiratory failure 2. Pneumonia 3. Lactic acidosis 4. Severe sepsis Lab Data Attestation: I reviewed the patient's lab results. Labs: Laboratory Results - last 24 hr 08/15/21 08/15/21 08/15/21 07:04 07:04 07:04 WBC 14.1 H RBC 2.99 L Hgb 8.4 L Hct 28.6 L MCV 95.7 H MCH 28.1 MCHC 29.4 L RDW Std Deviation 60.1 H RDW Coeff of Janel 17.2 H Plt Count 426 MPV 10.4 Immature Gran % (Auto) 0.800 Neut % (Auto) 69.6 Lymph % (Auto) 16.4 L Kemper % (Auto) 11.0 H Eos % (Auto) 1.5 Baso % (Auto) 0.7 Absolute Neuts (auto) 9.8 H Absolute Lymphs (auto) 2.30 Nucleated RBC % 0 Diff Path Review May foll Platelet Estimate ADEQUATE Hypochromasia 2+ PT 12.9 INR 1.0 Sodium 130 L Potassium 3.9 Chloride 90 L Carbon Dioxide 26.0 Anion Gap 14 BUN 55 H Creatinine 5.10 H Estim Creat Clear Calc 11.16 Est GFR (MDRD) Af Amer 14 L Est GFR (MDRD) Non-Af 12 L BUN/Creatinine Ratio 10.8 Glucose 342 H Lactic Acid Calcium 8.7 Troponin I High Sens 52 B-Natriuretic Peptide 08/15/21 08/15/21 07:04 07:04 WBC RBC Hgb Hct MCV MCH MCHC RDW Std Deviation RDW Coeff of Janel Plt Count MPV Immature Gran % (Auto) Neut % (Auto) Lymph % (Auto) Kemper % (Auto) Eos % (Auto) Baso % (Auto) Absolute Neuts (auto) Absolute Lymphs (auto) Nucleated RBC % Diff Path Review Platelet Estimate Hypochromasia PT INR Sodium Potassium Chloride Carbon Dioxide Anion Gap BUN Creatinine Estim Creat Clear Calc Est GFR (MDRD) Af Amer Est GFR (MDRD) Non-Af BUN/Creatinine Ratio Glucose Lactic Acid 6.3 H* Calcium Troponin I High Sens B-Natriuretic Peptide 795.6 H ABG Data ABG results: ABG 08/15/21 07:50 Specimen Type ART Sample Site L Radial pH 7.41 Bicarbonate Actual 26.8 H Total CO2 28 Base Excess 2 O2 Saturation 98 O2 % 65 ABG pCO2 41.9 ABG pO2 95 Price Test Positive O2 Delivery Device BiPAP Clinical Comments 27/06 rr12 65% Radiography Diagnostic Testing: Radiology Impression Chest X-Ray 08/15/21 06:59 IMPRESSION: Slight worsening of pneumonia on the left. Electronically Signed: Derrick Trivedi MD at 8:09 EDT Tel , Service support , Discharge Plan Triage Chief Complaint: Shortness of Breath ED Provider: George Segura Dx/Rx/DC Orders Prescriptions: No Action timolol 0.5 % drops 1 drp EACH EYE DAILY RF: 0 brimonidine 0.2 % drops 1 drp LEFT EYE BID RF: 0 hydralazine 25 mg tablet 25 mg PO TID RF: 0 ergocalciferol (vitamin D2) 1,250 mcg (50,000 unit) capsule 1,250 mcg PO DAILY RF: 0 insulin lispro [Humalog U-100 Insulin] 100 unit/mL solution 80 unit SC DAILY Qty: 70 RF: 3 latanoprost 1 DROP bottle 1 drp EACH EYE DAILY RF: 0 albuterol sulfate 90 mcg/actuation HFA aerosol inhaler 2 puff INHALATION Q6H PRN PRN (Reason: Sob &/Or Wheezing) Qty: 18 RF: 11 aspirin 81 mg tablet,delayed release (DR/EC) 81 mg PO DAILY Qty: 90 RF: 3 isosorbide mononitrate 30 mg tablet extended release 24 hr 30 mg PO DAILY Qty: 90 RF: 3 atorvastatin 80 mg tablet 80 mg PO QHS Qty: 90 RF: 4 clopidogrel [Plavix] 75 mg tablet 75 mg PO DAILY Qty: 90 RF: 3 Trelegy Ellipta 200-62.5-25 mcg blister with device 1 inh INHALATION DAILY Qty: 60 RF: 6 metoprolol succinate 25 mg tablet extended release 24 hr 12.5 mg PO DAILY Qty: 45 RF: 3 Primary Care Provider: Sb Bolanos
[2021-08-15 07:18] LABS: Absolute Neutrophil Count 9.8 X10^3/uL (2.0-7.7); Basophil% 0.7 % (0-1); Eosinophil# 0.21 X10^3/uL; Eosinophils% 1.5 % (0-5); Hematocrit 28.6 % (40-54); Hemoglobin 8.4 g/dL (13.0-16.5); Lymphocyte % 16.4 % (19-41); Mean Corp Hgb Conc 29.4 g/dL (32-36); Mean Corpuscular Hgb 28.1 pg (27.0-32.0); Mean Corpuscular Volume 95.7 fL (80-94); Mean Platelet Vol. 10.4 fl (6.2-12.0); Monocyte# 1.55 X10^3/uL; NRBC Flagged by Analyzer 0 % (0-5); Neutrophil # 9.79 X10^3/uL (2.7-7.7); Neutrophil % 69.6 % (47-70); POSITIVE DIFFERENTIAL YES; Platelet Count 426 K/mm3 (150-450); RBC Distribution Width CV 17.2 % (11.6-14.6); RBC Distribution Width SD 60.1 fl (35.1-43.9); Red Blood Count 2.99 M/mm3 (4.6-6.2); White Blood Count 14.1 K/mm3 (4.4-11.0)
[2021-08-15 07:21] LABS: Prothrombin Time (Protime)PT. 12.9 SECONDS (11.7-14.9)
[2021-08-15 07:25] LABS: Differential Indicated SCAN CRITERIA MET
[2021-08-15 07:31] LABS: Anion Gap 14 (5-15); BUN 55 mg/dL (7-18); BUN/Creat Ratio 10.8 RATIO (10-20); Calcium,Total 8.7 mg/dL (8.5-10.1); Chloride 90 mmol/L (98-107); EST Glomerular Filtration Rate 12 mL/min (>60); Est Glom Filt Rate - Afr Amer 14 mL/min (>60); Estimated Creatinine Clearance 11.16 ml/min; Glucose 342 mg/dL (74-106); Potassium 3.9 mmol/L (3.5-5.1); Sodium Level 130 mmol/L (136-145); Troponin-I HS 52 pg/mL (3.0-78.0)
[2021-08-15 07:36] LABS: BNP,B-Type NATRIURETIC PEPTIDE 795.6 pg/mL (0-100)
[2021-08-15 07:51] LABS: Lactic Acid 6.3 mmol/L (0.4-1.9)
[2021-08-15 07:55] LABS: Allen Test Positive; Base Excess 2 mmol/L (-2 to +2); Bicarbonate 26.8 mmol/L (22-26); Blood Gas Specimen Type ART; FI02 65; O2 Delivery Device BiPAP; PO2 95 mmHG (75-100); SITE L Radial; SO2 98 % (95-99); Total Carbon Dioxide 28 mmol/L; pCO2 41.9 mmHg (35-45); pH 7.41 (7.35-7.45)
[2021-08-15 08:01] LABS: Hypochromasia 2+; Platelet Estimate ADEQUATE (ADEQ)
[2021-08-15] MEDS: LORazepam 2 MG/ML Syringe 0.5 MG IV (08:15)
--- NOTE | 2021-08-15 08:39 | HP.PCM.HOS_ITS ---
HPI - General General Date of Admission: 08/15/21 HPI Narrative DIVYA HUSAIN, is a 76 M with a PMH as outlined who presents with a complaint of shortness of breath and hypoxia. He was diagnosed with COVID 3 weeks ago. He had dialysis MWF previously, but since he got covid 3 weeks ago, he was switched to TTS and he had been going to [place] for dialysis. He had dialysis on Sunday, and got short of breath today. HE had no fever or chills, but had increasing shortness of breath and hypoxia. HE required BIPAP and was also given ativan in the ED o/a of anxiety. CXR showed worsening left sided pneumonia. Vitals in the ED were BP of 149/92, AK of 117 and resp rate of 24. CBC showed wbc of 14.1, Hb of 8.4, platelets of 426; chemistry showed sodium of 130, chloride of 90 and Cr of 5.1. lactic acid was 6.3 and BNP of 795.6. He is being admitted t be managed for acute on chronic hypoxic respiratory failure due to pneumonia and covid 19 infection. Subseqeuntly, troponins trended up markedly from 52 to >600. He is therefore also being managed for nonstemi. [facility] Medical History (HFpEF) heart failure with preserved ejection fraction Acute blood loss anemia Acute respiratory failure Allergic rhinitis Anemia Atherosclerosis of coronary artery of [place] heart without angina pectoris Benign localized hyperplasia of prostate Carpal tunnel syndrome Chronic allergic rhinitis Chronic hypoxemic respiratory failure Chronic kidney disease, stage V requiring chronic dialysis Chronic otitis media Chronic steroid use CKD (chronic kidney disease) stage 4, GFR 15-29 ml/min Constipation COPD (chronic obstructive pulmonary disease) COPD (chronic obstructive pulmonary disease) Diabetes mellitus Dialysis patient Elevated troponin Epistaxis Essential (primary) hypertension Former smoker GERD (gastroesophageal reflux disease) GI bleed (06/28/19) History of non-ST elevation myocardial infarction (NSTEMI) (02/03/20) History of prostate cancer Hyperlipidemia 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 Hyponatremia Incomplete right bundle branch block Insulin pump titration Ischemic cardiomyopathy prison (current) use of insulin Low back pain Mobitz type I Wenckebach atrioventricular block Neuralgia Nonallopathic lesion of lumbar region Nonallopathic lesion of rib cage Nonallopathic lesion of sacral region Nonallopathic lesion of thoracic region, not elsewhere classified NSVT (nonsustained ventricular tachycardia) Otalgia Otitis externa Overweight Pain in lower limb Paroxysmal atrial fibrillation (06/2019) Pedal edema Peripheral vascular insufficiency 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 Pulmonary nodule PVD (peripheral vascular disease) Reactive airway disease Serous otitis media Thoracic back pain Thoracic outlet syndrome Type I diabetes mellitus Urethral stricture Vitamin D deficiency Wax in ear Home Medications latanoprost 0.005 % eye drops 1 drp EACH EYE DAILY ml 11/15/17 [History Last Taken 03/25/20 06:00 1 DRP] albuterol sulfate 90 mcg/actuation aerosol inhaler 2 puff INHALATION Q6H PRN PRN #18 g 08/05/19 [Rx Last Taken Unknown] brimonidine 0.2 % eye drops 1 drp LEFT EYE BID ml 10/01/19 [History Last Taken 05/05/21] timolol 0.5 % eye drops 1 drp EACH EYE DAILY ml 10/01/19 [History Last Taken 03/25/20 06:00 1 DRP] hydralazine 25 mg tablet 25 mg PO TID tab 05/31/21 [History Last Taken Unknown] metoprolol succinate 25 mg tablet,extended release 24 hr 12.5 mg PO DAILY #45 tab 08/10/21 [Rx Last Taken Unknown] aspirin 81 mg PO DAILY 08/15/21 [History Last Taken Unknown] atorvastatin 80 mg PO QHS 08/15/21 [History Last Taken Unknown] clopidogrel [Plavix] 75 mg PO DAILY 08/15/21 [History Last Taken Unknown] [id number]-[id number] [Trelegy Ellipta] 1 inh INHALATION DAILY 08/15/21 [History Last Taken Unknown] insulin lispro [Humalog U-100 Insulin] 150 unit SC DAILY 08/15/21 [History Last Taken Unknown] isosorbide mononitrate 30 mg PO DAILY 08/15/21 [History Last Taken Unknown] Allergy/AdvReac Type Severity Reaction Status Date / Time amoxicillin [From Augmentin] Allergy Unknown Unknown Verified 06/07/21 11:10 clavulanic acid Allergy Unknown Unknown Verified 06/07/21 11:10 [From Augmentin] Sulfa (Sulfonamide Allergy Unknown Unknown Verified 06/07/21 11:10 Antibiotics) Family History Sister Diabetes Father Heart disease Surgical History H/O inguinal hernia repair H/O prostate biopsy History of appendectomy History of carpal tunnel surgery of left wrist History of coronary artery stent placement (06/29/19) History of femoropopliteal bypass (01/2021) History of left heart catheterization (02/09/20) Problem with dialysis access (05/05/21) S/P bilateral foot surgery S/P rotator cuff repair Social History Smoking Status: Former smoker quit date: 11/12/13 pack-years: 55 how long ago did patient quit smokin years ago second hand exposure: No alcohol intake: never substance use type: does not use caffeine: Yes Type: coffee Number of servings: 1 ROS Constitutional Constitutional: Reports fatigue, malaise and weakness; Denies anorexia, change in weight or chills Eyes Eyes: Denies blurry vision ENT HEENT: Denies dysphagia, nasal congestion or nasal discharge Cardiovascular Cardiovascular: Reports dyspnea on exertion and palpitations; Denies chest pain, edema, lightheadedness, orthopnea, paroxysmal nocturnal dyspnea, rapid heart rate or syncope Respiratory/Chest Respiratory/Chest: Reports dyspnea, shortness of breath at rest and shortness of breath with exertion; Denies cough, excessive phlegm production, hemoptysis, productive cough or wheezing Gastrointestinal Gastrointestinal: Denies abdominal pain, constipation, diarrhea, nausea or vomiting Genitourinary Genitourinary: Denies burning urination or dysuria Musculoskeletal Musculoskeletal: Denies back pain or joint swelling Neurologic Neurologic: Denies confusion, dizziness, focal weakness, headache(s), numbness, seizures or syncope Psychiatric Psychiatric: Denies anxiety or depression Endocrine Endocrinology: Reports change in body appearance Hematologic/Lymphatic Hematologic/Lymphatic: Denies anemia Vital Signs Vital Signs Vital Signs: 08/15/21 06:55 08/15/21 06:58 08/15/21 06:59 Temperature 97.7 F L Temperature Source Temporal Pulse Rate 72 124 H Respiratory Rate 36 H 34 H Respiratory Effort Short of Breath Labored Accessory Muscle Use Respiratory Pattern Tachypnea Blood Pressure 161/117 H Blood Pressure Mean 131 Pulse Ox 64 61 Oxygen Delivery Method Bi-pap CPAP Oxygen Flow Rate (L/min) Fraction of Inspired Oxygen (FIO2) 08/15/21 07:01 08/15/21 07:02 08/15/21 07:05 Temperature 97.7 F L Temperature Source Temporal Pulse Rate 124 H 123 H Respiratory Rate 27 H 27 H Respiratory Effort Respiratory Pattern Blood Pressure 142/93 H 142/93 H Blood Pressure Mean 109 109 Pulse Ox 61 100 Oxygen Delivery Method Bi-pap CPAP CPAP Oxygen Flow Rate (L/min) 15 Fraction of Inspired Oxygen (FIO2) 08/15/21 07:20 08/15/21 07:28 08/15/21 07:54 Temperature Temperature Source Pulse Rate 107 H 105 H 117 H Respiratory Rate 28 H 20 H 20 H Respiratory Effort Respiratory Pattern Tachypnea Tachypnea Blood Pressure 134/77 H Blood Pressure Mean 96 Pulse Ox 80 100 97 Oxygen Delivery Method Room Air Oxygen Flow Rate (L/min) Fraction of Inspired Oxygen (FIO2) 100 65 08/15/21 08:01 Temperature Temperature Source Pulse Rate 117 H Respiratory Rate 24 H Respiratory Effort Respiratory Pattern Blood Pressure 149/92 H Blood Pressure Mean 111 Pulse Ox 93 Oxygen Delivery Method Bi-pap Oxygen Flow Rate (L/min) Fraction of Inspired Oxygen (FIO2) Weight Weight: 169 lb 12.095 oz Body Mass Index (BMI) 26.6 Physical Exam Const alert and oriented x3 Orientation / Consciousness: lethargic HEENT normocephalic, head/scalp atraumatic, hearing grossly normal bilaterally and moist oral mucous membranes Eyes PERRL, EOMs intact bilaterally and conjunctivae normal Neck no lymphadenopathy Resp Resp Narrative: tachypneic, diminished breath sounds bibasally, no wheezes or crackles. On BIPAP. Cardio regular rate, regular rhythm, S1 normal heart sound, S2 normal heart sound and no murmurs GI normal to inspection, nondistended, normoactive bowel sounds, soft to palpation, non-tender and non-distended Extremity normal to inspection, full ROM and no clubbing, cyanosis or edema Peripheral Pulses: Yes pulses 2+ throughout Skin no rashes or lesions noted Neuro oriented x3, CN's II-XII intact bilaterally and moves all extremities Sensorium / Orientation: awake and alert Psych affect normal Results Lab / Micro Data Result Diagrams: 08/16/21 04:36 08/16/21 04:36 Labs: Laboratory Results - last 24 hr 08/15/21 07:04: WBC 14.1 H, RBC 2.99 L, Hgb 8.4 L, Hct 28.6 L, MCV 95.7 H, MCH 28.1, MCHC 29.4 L, RDW Std Deviation 60.1 H, RDW Coeff of Janel 17.2 H, Plt Count 426, MPV 10.4, Immature Gran % (Auto) 0.800, Neut % (Auto) 69.6, Lymph % (Auto) 16.4 L, [place] % (Auto) 11.0 H, Eos % (Auto) 1.5, Baso % (Auto) 0.7, Absolute Neuts (auto) 9.8 H, Absolute Lymphs (auto) 2.30, Nucleated RBC % 0, Diff Path Review March, Platelet Estimate ADEQUATE, Hypochromasia 2+ 08/15/21 07:04: PT 12.9, INR 1.0 08/15/21 07:04: Sodium 130 L, Potassium 3.9, Chloride 90 L, Carbon Dioxide 26.0, Anion Gap 14, BUN 55 H, Creatinine 5.10 H, Estim Creat Clear Calc 11.16, Est GFR (MDRD) Af Amer 14 L, Est GFR (MDRD) Non-Af 12 L, BUN/Creatinine Ratio 10.8, Glucose 342 H, Calcium 8.7, Troponin I High Sens 52 08/15/21 07:04: B-Natriuretic Peptide 795.6 H 08/15/21 07:04: Lactic Acid 6.3 H* Micro: Microbiology 08/15/21 07:07 Interface Orders SARS-CoV-2 Antigen (Rapid) - Final ABG Data ABG results: ABG 08/15/21 07:50 Specimen Type ART Sample Site L Radial pH 7.41 Bicarbonate Actual 26.8 H Total CO2 28 Base Excess 2 O2 Saturation 98 O2 % 65 ABG pCO2 41.9 ABG pO2 95 Price Test Positive O2 Delivery Device BiPAP Clinical Comments 27/06 rr12 65% Radiology Impression Chest X-Ray 08/15/21 06:59 IMPRESSION: Slight worsening of pneumonia on the left. Electronically Signed: Derrick Trivedi MD at 8:09 EDT Tel , Service support , Assessment & Plan Assessment/Plan (1) Acute on chronic respiratory failure with hypoxemia: (2) Non-STEMI (non-ST elevated myocardial infarction): PLAN: #Acute on chronic hypoxic respiratory failure due to bilateral pneumonia and nonstemi * admit to PCU * started on IV ceftriaxone and azithromycin; will continue * CTA of the chest was negative for PE and showed bilateral pneumonia and bilateral pleural effusions * cycle troponins * get blood and sputum cultures * titrate oxygen to maintain sats >90%. Wean off BIPAP as tolerated. * breathing treatment wtih bronchodilators * pulmonology consulted * #Severe sepsis due to pneumonia * lactic acid was elevated at >6 on admission, it quickly trended down to 2 when patient was put on BIPAP. I therefore think this elevated lactic acid was due to hypoxia, and not septic shock. * Patient was tachypneic and also has an elevated white cell count 14 * Will get blood cultures. On IV ceftriaxone and azithromycin as above. * #ESRD * on HD MWF; was previously switched to TTS after he was diagnosed with covid, but is now out of his quarantine period, so was due to be switched back to his MWF schedule today * consult nephrology. CT chest showed bilateral pleural effusions which may be related to fluid overload. * for dialysis today * #Acute on chronic heart failure with reduced ejection fraction * BNP was 795. Patient is to be dialyzed today so this will help with fluid removal. * #Nonstemi * EKG showed no acute ST changes * troponin trended up from 52 to >600 * cardiology consulted * 2D echo ordered * #CAD s/p stents * had 2 stents placed at [facility] in 2017 * on aspirin and plavix as well as statin and Imdur * #Chronic anemia * Hb is 8.4; baseline is ~ 9-10. WIll trend * #Paroxysmal afib: on metoprolol DVT prophylaxis: lovenox COde status: full code * Patient and counseled extensively about different types of CODE STATUS including full code, DNR CCA and DNR CCA. Patient elects to be full code. * Total [id number] time 16 minutes. Charges/Coding Visit Charges Inpatient E&M: 30815 Init Hosp L3 Procedures Hospitalists Procedures: [id number] Advncd Care Plan 30 Min
--- NOTE | 2021-08-15 08:45 | CT_ITS ---
STUDY: CT CHEST WITHOUT CONTRAST REASON FOR EXAM: Male, 76 years old. dyspnea RADIATION DOSAGE (If Supplied By Facility): CTDIvol = ( 12.13 ) mGy, DLP = ( 469.65 ) mGycm TECHNIQUE: Transaxial imaging was performed without the administration of intravenous contrast material. Individualized dose optimization techniques were used for this CT. COMPARISON: Chest x-ray earlier today, CT 09/07/2020 FINDINGS: Mild erythematous changes. No change in multiple upper lobe nodules likely from prior granulomatous disease. Interval development of peripheral groundglass and alveolar densities in both lungs consistent with bilateral pneumonia. Moderate bilateral pleural effusions. Normal heart and pericardium. There are calcifications of the coronary arteries. Several mediastinal lymph nodes which are likely reactive. Normal hilar regions. Normal unenhanced pulmonary arteries. Normal aorta arch and descending thoracic aorta. Normal osseous structures. Calcified gallstone in the dependent portion gallbladder consistent cholelithiasis. 6.5 cm cyst of the midsection of left kidney. CT/Chest without Contrast IMPRESSION: 1. Interval development of bilateral peripheral pneumonia. Commonly reported imaging features accompanied 19 pneumonia are present. Other processes such as influenza pneumonia and organized pneumonia as can be seen from drug toxicity and connective tissue disease can cause similar imaging pattern. 2. Moderate bilateral pleural effusions. Electronically Signed: Derrick Trivedi MD at 9:43 EDT Tel , Service support ,
--- NOTE | 2021-08-15 08:48 | ED.RN ---
dialysis -- was scheduled fo this am
--- NOTE | 2021-08-15 09:07 | ED.RN ---
no fluids ordered at this time due to dialysis.
[2021-08-15] MEDS: Ceftriaxone 1 GM/50 ML BAG IV (09:09)
--- NOTE | 2021-08-15 10:35 | PCS.PANDOC ---
PANDEMIC DOCUMENTATION INITIATED: Date: 08/15/2021 Time: 955
[2021-08-15] MEDS: Enoxaparin 30 MG/0.3 ML Syringe SC (10:59)
[2021-08-15 11:15] LABS: Reflex Lactate? Y
[2021-08-15 11:16] LABS: Troponin-I HS 662 pg/mL (3.0-78.0)
[2021-08-15 12:50] LABS: Lactic Acid 2.2 mmol/L (0.4-1.9)
--- NOTE | 2021-08-15 12:53 | CON.PCM.CC_ITS ---
Assessment & Plan Assessment/Plan (1) Acute on chronic respiratory failure with hypoxemia: PLAN: RECOMMENDATIONS: 1. Given elevated D-dimer, recommend CTA chest prior to hemodialysis later t willie. 2. Continue to wean supplemental oxygen as tolerated. 3. Continue scheduled bronchodilator therapy. Will add budesonide twice daily as well. 4. Nephrology consultation to assist with hemodialysis needs. 5. Check respiratory viral panel. 6. Continue empiric antimicrobials for now. IMPRESSIONS: 1. Acute on chronic hypoxemic respiratory failure/history of COPD The exact etiology for the patient's presentation is unclear. While the patient does report that he was diagnosed with coronavirus 3 weeks ago he was apparently doing well from a respiratory perspective until last night. Acute CHF is a possibility given his elevated BNP and troponin along with bilateral effusions noted on chest imaging. In addition, the patient did have an elevated D-dimer. Therefore, I would recommend, given the acuity of his symptoms, that we obtain a CTA chest prior to his hemodialysis session later today. In the interim, the patient's oxygen will be weaned as tolerated. He will be continued on scheduled bronchodilator therapy. Budesonide twice daily will be added to his aerosol regimen. 2. End-stage renal disease on hemodialysis Continue dialysis support per nephrology recommendations. 3. Anemia/hyperlipidemia/hypertension/diabetes mellitus Complicates care, management, recovery and prognosis. Continue home medications as indicated. This note was generated with [employer] dictation software. It may contain incorrect words, spelling, and punctuation that were not noted in checking the note before signing. HPI Consult Data Date of Consult: 08/15/21 HPI Narrative Reason for Consultation: Respiratory failure HPI Narrative: The patient is a 76-year-old male, with a history as outlined below, who presented to the emergency department on August 15 with worsening dyspnea. The patient is a known history of chronic hypoxemic respiratory failure with a 2 L/min baseline requirement in severe obstructive lung disease. His medical history is also significant for end-stage renal disease on hemodialysis. The patient was apparently diagnosed with coronavirus approximately 3 weeks ago. He is on a maximum triple therapy inhaler regimen at his baseline. The patient reported to me that he awoke last night rather abruptly with dyspnea. He has not missed any recent dialysis sessions. On presentation to the emergency department, the patient was noted to be afebrile and hemodynamically stable. He was, nevertheless, quite tachypneic and hypoxemic. The patient was immediately placed on BiPAP therapy. Initial laboratory evaluation revealed an elevated white blood cell count of 14,000. Hemoglobin was noted to be 8.4 g/dL. Chemistry profile was notable for a sodium of 130, chloride of 90 and creatinine of 5.10. Lactate was elevated to 6.3. Troponin was elevated to 662. BNP was increased to 800. The patient was initially placed on antimicrobials and received bronchodilator therapy. He was admitted to the progressive care unit for further management. On my evaluation of the patient, he had already been weaned from BiPAP and was maintaining appropriate oxygen saturations on 4 L/min. [facility] Medical History (HFpEF) heart failure with preserved ejection fraction Acute blood loss anemia Acute respiratory failure Allergic rhinitis Anemia Atherosclerosis of coronary artery of [place] heart without angina pectoris Benign localized hyperplasia of prostate Carpal tunnel syndrome Chronic allergic rhinitis Chronic hypoxemic respiratory failure Chronic kidney disease, stage V requiring chronic dialysis Chronic otitis media Chronic steroid use CKD (chronic kidney disease) stage 4, GFR 15-29 ml/min Constipation COPD (chronic obstructive pulmonary disease) COPD (chronic obstructive pulmonary disease) Diabetes mellitus Dialysis patient Elevated troponin Epistaxis Essential (primary) hypertension Former smoker GERD (gastroesophageal reflux disease) GI bleed (06/28/19) History of non-ST elevation myocardial infarction (NSTEMI) (02/03/20) History of prostate cancer Hyperlipidemia 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 Hyponatremia Incomplete right bundle branch block Insulin pump titration 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 Low back pain Mobitz type I Wenckebach atrioventricular block Neuralgia Nonallopathic lesion of lumbar region Nonallopathic lesion of rib cage Nonallopathic lesion of sacral region Nonallopathic lesion of thoracic region, not elsewhere classified NSVT (nonsustained ventricular tachycardia) Otalgia Otitis externa Overweight Pain in lower limb Paroxysmal atrial fibrillation (06/2019) Pedal edema Peripheral vascular insufficiency 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 Pulmonary nodule PVD (peripheral vascular disease) Reactive airway disease Serous otitis media Thoracic back pain Thoracic outlet syndrome Type I diabetes mellitus Urethral stricture Vitamin D deficiency Wax in ear Home Medications latanoprost 0.005 % eye drops 1 drp EACH EYE DAILY ml 11/15/17 [History Last Taken 03/25/20 06:00 1 DRP] albuterol sulfate 90 mcg/actuation aerosol inhaler 2 puff INHALATION Q6H PRN PRN #18 g 08/05/19 [Rx Last Taken Unknown] brimonidine 0.2 % eye drops 1 drp LEFT EYE BID ml 10/01/19 [History Last Taken 05/05/21] timolol 0.5 % eye drops 1 drp EACH EYE DAILY ml 10/01/19 [History Last Taken 03/25/20 06:00 1 DRP] isosorbide mononitrate 30 mg tablet,extended release 24 hr 30 mg PO DAILY #90 tab 08/09/20 [Rx Last Taken 05/05/21] atorvastatin 80 mg tablet 80 mg PO QHS #90 tab 08/16/20 [Rx Last Taken Unknown] clopidogrel 75 mg tablet 75 mg PO DAILY #90 tab 10/18/20 [Rx Last Taken 05/01/21] ergocalciferol (vitamin D2) 1,250 mcg (50,000 unit) capsule 1,250 mcg PO DAILY 02/15/21 [History Last Taken Unknown] hydralazine 25 mg tablet 25 mg PO TID tab 05/31/21 [History Last Taken Unknown] insulin lispro 100 unit/mL subcutaneous solution 80 unit SC DAILY #70 ml 06/07/21 [Rx Last Taken Unknown] fluticasone fur. 200 mcg-umeclid 62.5 mcg-vilant 25 mcg inhalat.powder 1 inh INHALATION DAILY #60 each 06/15/21 [Rx Last Taken Unknown] metoprolol succinate 25 mg tablet,extended release 24 hr 12.5 mg PO DAILY #45 tab 08/10/21 [Rx Last Taken Unknown] aspirin 81 mg tablet,delayed release 81 mg PO DAILY #90 tab 08/15/21 [Rx Last Ta ronald Unknown] Allergy/AdvReac Type Severity Reaction Status Date / Time amoxicillin [From Augmentin] Allergy Unknown Unknown Verified 06/07/21 11:10 clavulanic acid Allergy Unknown Unknown Verified 06/07/21 11:10 [From Augmentin] Sulfa (Sulfonamide Allergy Unknown Unknown Verified 06/07/21 11:10 Antibiotics) Family History Sister Diabetes Father Heart disease Surgical History H/O inguinal hernia repair H/O prostate biopsy History of appendectomy History of carpal tunnel surgery of left wrist History of coronary artery stent placement (06/29/19) History of femoropopliteal bypass (01/2021) History of left heart catheterization (02/09/20) Problem with dialysis access (05/05/21) S/P bilateral foot surgery S/P rotator cuff repair Social History Smoking Status: Former smoker quit date: 11/12/13 pack-years: 53 how long ago did patient quit smokin years ago second hand exposure: No alcohol intake: never substance use type: does not use caffeine: Yes Type: coffee Number of servings: 1 ROS Constitutional Constitutional: Denies body ache(s), chills or fatigue Eyes Eyes: Denies blurry vision or change in vision ENT HEENT: Denies dizziness, dysphagia or epistaxis Cardiovascular Cardiovascular: Reports dyspnea Respiratory/Chest Respiratory/Chest: Reports dyspnea; Denies chest tightness or cough Gastrointestinal Gastrointestinal: Denies abdominal pain, diarrhea, nausea or vomiting Genitourinary Genitourinary: Reports difficulty urinating Musculoskeletal Musculoskeletal: Denies arthralgias or back pain Integumentary Integumentary: Denies lesions, rash or skin ulcer Neurologic Neurologic: Denies abnormal gait or abnormal speech Psychiatric Psychiatric: Reports anxiety Endocrine Endocrinology: Denies fatigue or polydipsia Hematologic/Lymphatic Hematologic/Lymphatic: Denies easy bleeding or easy bruising Physical Exam Const alert and no apparent distress General Appearance: cooperative HEENT normocephalic and head/scalp atraumatic Eyes PERRL and EOMs intact bilaterally Neck supple General: trachea midline Chest inspection of chest normal Resp Effort and Inspection: able to speak in complete sentences Auscultation: rales, wheezes and diminished lung sounds Cardio regular rate and regular rhythm GI normal to inspection, nondistended, normoactive bowel sounds Extremity General Extremity: edema; Negative for clubbing Skin no rashes or lesions noted Neuro moves all extremities and no focal motor deficits Psych cooperative and affect normal Lab / Micro Data Result Diagrams: 08/15/21 07:04 08/15/21 07:04 Labs: Laboratory Results - last 24 hr 08/15/21 07:04: WBC 14.1 H, RBC 2.99 L, Hgb 8.4 L, Hct 28.6 L, MCV 95.7 H, MCH 28.1, MCHC 29.4 L, RDW Std Deviation 60.1 H, RDW Coeff of Janel 17.2 H, Plt Count 426, MPV 10.4, Immature Gran % (Auto) 0.800, Neut % (Auto) 69.6, Lymph % (Auto) 16.4 L, [place] % (Auto) 11.0 H, Eos % (Auto) 1.5, Baso % (Auto) 0.7, Absolute Neuts (auto) 9.8 H, Absolute Lymphs (auto) 2.30, Nucleated RBC % 0, Diff Path Review March, Platelet Estimate ADEQUATE, Hypochromasia 2+ 08/15/21 07:04: PT 12.9, INR 1.0 08/15/21 07:04: Sodium 130 L, Potassium 3.9, Chloride 90 L, Carbon Dioxide 26.0, Anion Gap 14, BUN 55 H, Creatinine 5.10 H, Estim Creat Clear Calc 11.16, Est GFR (MDRD) Af Amer 14 L, Est GFR (MDRD) Non-Af 12 L, BUN/Creatinine Ratio 10.8, Glucose 342 H, Calcium 8.7, Troponin I High Sens 52 08/15/21 07:04: B-Natriuretic Peptide 795.6 H 08/15/21 07:04: Lactic Acid 6.3 H* 08/15/21 10:28: Troponin I High Sens 662 H* 08/15/21 11:55: Lactic Acid 2.2 H* Micro: Microbiology 08/15/21 07:07 Interface Orders SARS-CoV-2 Antigen (Rapid) - Final ABG Data ABG results: ABG 08/15/21 07:50 Specimen Type ART Sample Site L Radial pH 7.41 Bicarbonate Actual 26.8 H Total CO2 28 Base Excess 2 O2 Saturation 98 O2 % 65 ABG pCO2 41.9 ABG pO2 95 Price Test Positive O2 Delivery Device BiPAP Clinical Comments 27/06 rr12 65% Radiology Impression Chest X-Ray 08/15/21 06:59 IMPRESSION: Slight worsening of pneumonia on the left. Electronically Signed: Derrick Trivedi MD at 8:09 EDT Tel , Service support , Chest CT 08/15/21 08:45 IMPRESSION: 1. Interval development of bilateral peripheral pneumonia. Commonly reported imaging features accompanied 19 pneumonia are present. Other processes such as influenza pneumonia and organized pneumonia as can be seen from drug toxicity and connective tissue disease can cause similar imaging pattern. 2. Moderate bilateral pleural effusions. Electronically Signed: Derrick Trivedi MD at 9:43 EDT Tel , Service support , Charges/Coding Visit Charges Inpatient E&M: 22455 Init Hosp L3
[2021-08-15 13:27] LABS: D-Dimer Quantitative (DVT/PE) 3.58 FEU/ug/m (0.27-0.49)
[2021-08-15 13:34] LABS: Procalcitonin 0.71 ng/mL (0.00-0.09)
--- NOTE | 2021-08-15 13:36 | ECHOD_ITS ---
Reason For Study: NSTEMI Procedure This was a 2D Doppler, Color Flow transthoracic echocardiogram. Contrast injection was performed. Exam performed portable in patient room. Left Ventricle Normal LV size. The estimated ejection fraction is 40 %. Stage 1 diastolic dysfunction. There is mild global hypokinesis of the left ventricle. Right Ventricle Normal RV size. Normal systolic function. Atria Normal left atrium. Normal right atrium. Mitral Valve Normal mitral valve. Tricuspid Valve Normal tricuspid valve. Mild (1+) tricuspid valve insufficiency. Pulmonary artery systolic pressure is 36 mmHg. Aortic Valve Trisinus/trileaflet aortic valve. Moderate focal aortic valve calcification. Peak aortic valve gradient 26 mmHg. Mean aortic valve gradient 14 mmHg. Mild to moderate aortic stenosis. Great Vessels Normal aortic root. The pulmonary artery is normal size. Normal inferior vena cava. Pericardium/Pleural No pericardial effusion. Medication Diluted definity 2ml given slow IV push to enhance endocardial definition. MMode/2D Measurements & Calculations LVIDd: 5.8 cm IVSd: 1.4 cm LVOT diam: 2.1 cm LVIDs: 5.1 cm LVPWd: 1.1 cm LVOT area: 3.4 cm2 RVDd: 3.5 cm FS: 11.0 % Ao root diam: 3.6 cm LAV(MOD-bp): 68.8 ml LVAd ap4: 40.5 cm2 LAV(MOD-bp) Indexed: 37.0 ml/m2 LVLd ap4: 9.4 cm LAV(MOD-sp2): 82.7 ml EDV(MOD-sp4): 140.0 ml LAV(MOD-sp4): 56.3 ml EDV(sp4-el): 148.0 ml LVAs ap4: 33.6 cm2 LVLs ap4: 8.8 cm ESV(MOD-sp4): 104.3 ml ESV(sp4-el): 108.1 ml EF(MOD-sp4): 25.5 % EF(sp4-el): 27.0 % SV(MOD-sp4): 35.7 ml SV(sp4-el): 40.0 ml LA A4 area: 18.7 cm2 LA dimension(2D): 4.5 cm RA A4 area: 16.9 cm2 Doppler Measurements & Calculations MV E max adilson: 83.0 cm/sec Lat Peak E' Adilson: 15.6 cm/sec Med Peak E' Adilson: 7.4 cm/sec MV A max adilson: 124.6 cm/sec E/E' lat: 5.3 E/E' med: 11.3 MV E/A: 0.67 Ao V2 max: 257.5 cm/sec LV V1 max: 102.7 cm/sec SV(LVOT): 63.1 ml Ao max P.5 mmHg LV V1 max P.2 mmHg Ao V2 mean: 174.9 cm/sec LV V1 mean P.3 mmHg Ao mean P.8 mmHg LV V1 mean: 72.2 cm/sec Ao V2 VTI: 49.8 cm LV V1 VTI: 18.4 cm TELLY(I,D): 1.3 cm2 TELLY(V,D): 1.4 cm2 PA V2 max: 111.3 cm/sec TR max adilson: 282.2 cm/sec TR max P.9 mmHg ECHO/Echo Complete W/ Contrast Interpretation Summary Normal LV size. The estimated ejection fraction is 40 %. Stage 1 diastolic dysfunction. Moderate focal aortic valve calcification. Mean aortic valve gradient 14 mmHg. Mild to moderate aortic stenosis. Pulmonary artery systolic pressure is 36 mmHg. Contrast injection was performed. Ordering Physician: Lisa Perez Referring Physician: Sb Bolanos Performed By: Marj Wheeler RDCS, RVT
--- NOTE | 2021-08-15 14:05 | CON.PCM.CA_ITS ---
Assessment & Plan Assessment/Plan (1) History of coronary artery stent placement: PLAN: He does have a modest elevation in cardiac troponin. My suspicion is that the above is multifactorial as noted above. His echocardiogram did not demonstrate any wall motion abnormalities but global dysfunction was noted, and thus I would recommend continued medical therapy. I do not think that invasive approach with a cardiac catheterization is warranted. (2) Essential (primary) hypertension: PLAN: He will continue with his current blood pressure treatment. (3) Chronic kidney disease, stage V requiring chronic dialysis: PLAN: He does have evidence of chronic kidney disease requiring dialysis. He is scheduled to undergo dialysis later today. Thank you for allowing me to participate in the care of your patient. Please don't hesitate to call if any issues arise. (4) HFrEF (heart failure with reduced ejection fraction): PLAN: He does have heart failure with reduced left ventricular systolic function. This appears to be global and is likely secondary to his current underlying conditions. I however do not think that with the global nature it would warrant a cardiac catheterization. We will continue to manage him with dialysis for fluid removal and with beta-blockade. * He will also continue with his isosorbide and hydralazine combination. * * Thank you for allowing me to participate in the care of your patient. Please don't hesitate to call if any issues arise. * HPI Consult Data Date of Consult: 08/15/21 HPI Narrative HPI Narrative: DIVYA HUSAIN, is a 76 M who presents with shortness of breath which is progressive. He has a history of coronary artery disease. He had presented with a non-ST elevation myocardial infarction in June 2019. He underwent 2 drug-eluting stents to the left anterior descending artery at [facility]. He also underwent a drug-eluting stent to the left circumflex artery into the first obtuse marginal branch. His right coronary artery was totally occluded it was a dominant vessel with [id number] collaterals. Medical therapy was recommended. He did subsequently unfortunately developed a GI bleed with a history of anemia and epistaxis which was thought to be precipitated by heparin. He did have renal dysfunction which then subsequently improved. In January 2020 he presented with shortness of breath with troponin elevation as well as a hemoglobin drop. An echocardiogram demonstrated an ejection fraction of 30%. A planned coronary angiogram was undertaken at that time and it demonstrated that his previously placed stents were noted to be patent.. In April 2020 he underwent a pharmacologic stress test which demonstrated evidence of moderate anterior ischemia, inferior infarct and mild lissette-infarct ischemia. Medical therapy was recommended. He however went on dialysis because of progressive renal dysfunction. He had his medications adjusted. In October 2020 he was evaluated for lower extremity femoropopliteal bypass for limb salvage with general anesthesia which he appeared to have tolerated well. He is still on dialysis and is doing well. His blood pressures have been actually stable. He has had no dizziness or diaphoresis near syncope or syncope. He also is on chronic oxygen therapy. He is on 2 to 3 L a day and he is also on dialysis 3 times a week. His physical exam is otherwise unremarkable. [facility] Medical History (HFpEF) heart failure with preserved ejection fraction Acute blood loss anemia Acute respiratory failure Allergic rhinitis Anemia Atherosclerosis of coronary artery of [place] heart without angina pectoris Benign localized hyperplasia of prostate Carpal tunnel syndrome Chronic allergic rhinitis Chronic hypoxemic respiratory failure Chronic kidney disease, stage V requiring chronic dialysis Chronic otitis media Chronic steroid use CKD (chronic kidney disease) stage 4, GFR 15-29 ml/min Constipation COPD (chronic obstructive pulmonary disease) COPD (chronic obstructive pulmonary disease) Diabetes mellitus Dialysis patient Elevated troponin Epistaxis Essential (primary) hypertension Former smoker GERD (gastroesophageal reflux disease) GI bleed (06/28/19) History of non-ST elevation myocardial infarction (NSTEMI) (02/03/20) History of prostate cancer Hyperlipidemia 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 Hyponatremia Incomplete right bundle branch block Insulin pump titration Ischemic cardiomyopathy [facility] (current) use of insulin Low back pain Mobitz type I Wenckebach atrioventricular block Neuralgia Nonallopathic lesion of lumbar region Nonallopathic lesion of rib cage Nonallopathic lesion of sacral region Nonallopathic lesion of thoracic region, not elsewhere classified NSVT (nonsustained ventricular tachycardia) Otalgia Otitis externa Overweight Pain in lower limb Paroxysmal atrial fibrillation (06/2019) Pedal edema Peripheral vascular insufficiency 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 Pulmonary nodule PVD (peripheral vascular disease) Reactive airway disease Serous otitis media Thoracic back pain Thoracic outlet syndrome Type I diabetes mellitus Urethral stricture Vitamin D deficiency Wax in ear Home Medications latanoprost 0.005 % eye drops 1 drp EACH EYE DAILY ml 11/15/17 [History Last Taken 03/25/20 06:00 1 DRP] albuterol sulfate 90 mcg/actuation aerosol inhaler 2 puff INHALATION Q6H PRN PRN #18 g 08/05/19 [Rx Last Taken Unknown] brimonidine 0.2 % eye drops 1 drp LEFT EYE BID ml 10/01/19 [History Last Taken 05/05/21] timolol 0.5 % eye drops 1 drp EACH EYE DAILY ml 10/01/19 [History Last Taken 03/25/20 06:00 1 DRP] isosorbide mononitrate 30 mg tablet,extended release 24 hr 30 mg PO DAILY #90 tab 08/09/20 [Rx Last Taken 05/05/21] atorvastatin 80 mg tablet 80 mg PO QHS #90 tab 08/16/20 [Rx Last Taken Unknown] clopidogrel 75 mg tablet 75 mg PO DAILY #90 tab 10/18/20 [Rx Last Taken 05/01/21] ergocalciferol (vitamin D2) 1,250 mcg (50,000 unit) capsule 1,250 mcg PO DAILY 0 02/15/21 [History Last Taken Unknown] hydralazine 25 mg tablet 25 mg PO TID tab 05/31/21 [History Last Taken Unknown] insulin lispro 100 unit/mL subcutaneous solution 80 unit SC DAILY #70 ml 06/07/21 [Rx Last Taken Unknown] fluticasone fur. 200 mcg-umeclid 62.5 mcg-vilant 25 mcg inhalat.powder 1 inh INHALATION DAILY #60 each 06/15/21 [Rx Last Taken Unknown] metoprolol succinate 25 mg tablet,extended release 24 hr 12.5 mg PO DAILY #45 tab 08/10/21 [Rx Last Taken Unknown] aspirin 81 mg tablet,delayed release 81 mg PO DAILY #90 tab 08/15/21 [Rx Last Taken Unknown] Allergy/AdvReac Type Severity Reaction Status Date / Time amoxicillin [From Augmentin] Allergy Unknown Unknown Verified 06/07/21 11:10 clavulanic acid Allergy Unknown Unknown Verified 06/07/21 11:10 [From Augmentin] Sulfa (Sulfonamide Allergy Unknown Unknown Verified 06/07/21 11:10 Antibiotics) Family History Sister Diabetes Father Heart disease Surgical History H/O inguinal hernia repair H/O prostate biopsy History of appendectomy History of carpal tunnel surgery of left wrist History of coronary artery stent placement (06/29/19) History of femoropopliteal bypass (01/2021) History of left heart catheterization (02/09/20) Problem with dialysis access (05/05/21) S/P bilateral foot surgery S/P rotator cuff repair Social History Smoking Status: Former smoker quit date: 11/12/13 pack-years: 55 how long ago did patient quit smokin years ago second hand exposure: No alcohol intake: never substance use type: does not use caffeine: Yes Type: coffee Number of servings: 1 ROS Constitutional Constitutional: Denies fever(s) or weight loss Eyes Eyes: Reports systems reviewed and no addt'l complaints, except as documented ENT HEENT: Reports systems reviewed and no addt'l complaints, except as documented Cardiovascular Cardiovascular: Denies chest pain at rest, chest pain with activity, dyspnea at rest, dyspnea on exertion, edema, palpitations or paroxysmal nocturnal dyspnea Respiratory/Chest Respiratory/Chest: Denies dyspnea on exertion, productive cough, shortness of breath at rest or shortness of breath with exertion Gastrointestinal Gastrointestinal: Denies change in bowel habits, nausea, vomiting or weight changes Genitourinary Genitourinary: Denies difficulty urinating Musculoskeletal Musculoskeletal: Denies joint stiffness or muscle weakness Integumentary Integumentary: Denies lesions Neurologic Neurologic: Denies dizziness or syncope Psychiatric Psychiatric: Denies anxiety Endocrine Endocrinology: Denies excessive sweating or fatigue Hematologic/Lymphatic Hematologic/Lymphatic: Denies anemia Allergic/Immunologic Allergic/Immunologic: Denies seasonal rhinorrhea Physical Exam Const alert, oriented x3 and no apparent distress General Appearance: cooperative HEENT hearing grossly normal bilaterally Head and Scalp: atraumatic Eyes EOMs intact bilaterally Neck General: normal visual inspection Chest inspection of chest normal and palpation of chest normal Resp normal respiratory effort Auscultation: clear to auscultation bilaterally Cardio regular rate, regular rhythm, S1 normal heart sound and S2 normal heart sound Jugular Venous Distention: JVD GI normal to inspection, nondistended, normoactive bowel sounds Extremity normal capillary refill and no pedal edema Peripheral Pulses: Yes pulses 2+ throughout and femoral pulses present Skin no rashes or lesions noted Neuro oriented x3 and CN's II-XII intact bilaterally Psych Appearance: grossly normal and appropriate Objective Data Vital Signs: Vital Signs Temp Pulse Resp BP Pulse Ox 98.2 F 90 18 121/58 H 100 08/15/21 10:02 08/15/21 13:22 08/15/21 13:22 08/15/21 10:02 08/15/21 13:22 Oxygen Flow Rate (L/min) 6 Oxygen Delivery Method Nasal Cannula Weight: 173 lb 6.4 oz Body Mass Index (BMI) 26.4 Intake & Output: Intake and Output for Last 24 Hours 08/13/21 08/14/21 08/15/21 23:59 23:59 23:59 Intake Total 305 / 305 Balance 305 / 305 Lab / Micro Data Result Diagrams: 08/15/21 07:04 08/15/21 07:04 Labs: Laboratory Results - last 24 hr 08/15/21 07:04: WBC 14.1 H, RBC 2.99 L, Hgb 8.4 L, Hct 28.6 L, MCV 95.7 H, MCH 28.1, MCHC 29.4 L, RDW Std Deviation 60.1 H, RDW Coeff of Janel 17.2 H, Plt Count 426, MPV 10.4, Immature Gran % (Auto) 0.800, Neut % (Auto) 69.6, Lymph % (Auto) 16.4 L, [place] % (Auto) 11.0 H, Eos % (Auto) 1.5, Baso % (Auto) 0.7, Absolute Neuts (auto) 9.8 H, Absolute Lymphs (auto) 2.30, Nucleated RBC % 0, Diff Path Review March, Platelet Estimate ADEQUATE, Hypochromasia 2+ 08/15/21 07:04: PT 12.9, INR 1.0 08/15/21 07:04: Sodium 130 L, Potassium 3.9, Chloride 90 L, Carbon Dioxide 26.0, Anion Gap 14, BUN 55 H, Creatinine 5.10 H, Estim Creat Clear Calc 11.16, Est GFR (MDRD) Af Amer 14 L, Est GFR (MDRD) Non-Af 12 L, BUN/Creatinine Ratio 10.8, Glucose 342 H, Calcium 8.7, Troponin I High Sens 52 08/15/21 07:04: B-Natriuretic Peptide 795.6 H 08/15/21 07:04: Lactic Acid 6.3 H* 08/15/21 07:04: D-Dimer Quant (PE/DVT) 3.58 H* 08/15/21 07:04: Procalcitonin 0.71 H 08/15/21 10:28: Troponin I High Sens 662 H* 08/15/21 11:55: Lactic Acid 2.2 H* Micro: Microbiology 08/15/21 07:07 Interface Orders SARS-CoV-2 Antigen (Rapid) - Final ABG Data ABG results: ABG 08/15/21 07:50 Specimen Type ART Sample Site L Radial pH 7.41 Bicarbonate Actual 26.8 H Total CO2 28 Base Excess 2 O2 Saturation 98 O2 % 65 ABG pCO2 41.9 ABG pO2 95 Price Test Positive O2 Delivery Device BiPAP Clinical Comments 27/06 rr12 65% Cardiology Labs/Tests 08/15/21 07:04: WBC 14.1 H, RBC 2.99 L, Hgb 8.4 L, Hct 28.6 L, MCV 95.7 H, MCH 28.1, MCHC 29.4 L, Plt Count 426, MPV 10.4, Immature Gran % (Auto) 0.800, Neut % (Auto) 69.6, Lymph % (Auto) 16.4 L, [place] % (Auto) 11.0 H, Eos % (Auto) 1.5, Baso % (Auto) 0.7, Absolute Neuts (auto) 9.8 H, Nucleated RBC % 0 08/15/21 07:04: PT 12.9, INR 1.0 08/15/21 07:04: Sodium 130 L, Potassium 3.9, Chloride 90 L, Carbon Dioxide 26.0, Anion Gap 14, BUN 55 H, Creatinine 5.10 H, Est GFR (MDRD) Af Amer 14 L, Est GFR (MDRD) Non-Af 12 L, BUN/Creatinine Ratio 10.8, Glucose 342 H, Calcium 8.7 08/15/21 07:04: B-Natriuretic Peptide 795.6 H 08/15/21 07:04: Lactic Acid 6.3 H* 08/15/21 07:04: D-Dimer Quant (PE/DVT) 3.58 H* 08/15/21 07:50: pH 7.41, Bicarbonate Actual 26.8 H, Base Excess 2, O2 Saturation 98, ABG pCO2 41.9, ABG pO2 95, Price Test Positive 08/15/21 11:55: Lactic Acid 2.2 H* Rhythm: EKG: ECHO: Stress Test: Cardiac Cath: PCI: CT Surgery: Holter monitor: EPS: PPM: CXR: Chest CT Scan: Radiography Diagnostic Testing: Radiology Impression Chest X-Ray 08/15/21 06:59 IMPRESSION: Slight worsening of pneumonia on the left. Electronically Signed: Derrick Trivedi MD at 8:09 EDT Tel , Service support , Chest CT 08/15/21 08:45 IMPRESSION: 1. Interval development of bilateral peripheral pneumonia. Commonly reported imaging features accompanied 19 pneumonia are present. Other processes such as influenza pneumonia and organized pneumonia as can be seen from drug toxicity and connective tissue disease can cause similar imaging pattern. 2. Moderate bilateral pleural effusions. Electronically Signed: Derrick Trivedi MD at 9:43 EDT Tel , Service support ,
--- NOTE | 2021-08-15 14:22 | CT_ITS ---
STUDY: CTA CHEST REASON FOR EXAM: Male, 76 years old. elevated D dimer RADIATION DOSAGE (If Supplied By Facility): CTDIvol = ( 9.51 ) mGy, DLP = ( 389.09 ) mGycm TECHNIQUE: The examination was performed with the intravenous administration of IV 100mL Isovue-370. Post-processing of the angiographic images was performed, with multiplanar reformation and 3D reconstruction. Individualized dose optimization techniques were used for this CT. COMPARISON: Chest x-ray earlier today, a CT earlier today FINDINGS: Normal enhancement of the main pulmonary artery and right and left pulmonary arteries. Normal enhancement of the bilateral peripheral pulmonary arteries. There is no demonstrated pulmonary embolism. Normal thoracic aorta and visualized great vessels. There is no demonstrated aortic dissection. Normal heart and pericardium. Subcarinal lymphadenopathy measuring 2.0 x 4.5 cm. Normal hilar regions. Normal visualized trachea and bronchi. The lungs are well expanded. Mild emphysematous changes. No change in multiple upper lobe nodules likely from prior granulomatous disease. Interval development of peripheral groundglass and alveolar densities in both lungs consistent with bilateral pneumonia. Moderate bilateral pleural effusions. Normal chest wall structures. Normal osseous structures. Calcified gallstone in the dependent portion of gallbladder consistent with cholelithiasis. Multiple nonobstructing left renal stones. CT/CTA Chest W/WO Contrast IMPRESSION: 1. No CT evidence of pulmonary embolism. 2. Bilateral peripheral pneumonia. Commonly reported imaging features of August 30 pneumonia are present. 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 3. Moderate bilateral pleural effusions. Electronically Signed: Derrick Trivedi MD at 15:36 EDT Tel , Service support ,
[2021-08-15 14:31] LABS: Bedside Glucose 322 mg/dL (70-110)
[2021-08-15 14:52] LABS: Troponin-I HS 3540 pg/mL (3.0-78.0)
--- NOTE | 2021-08-15 16:56 | PCM.CONS.R ---
HPI Consult Data Date of Consult: 08/15/21 HPI Narrative HPI Narrative: DIVYA HUSAIN, is a 76 M who presents To the hospital with complaints of shortness of breath. He was recently diagnosed with Covid as outpatient. Finished 2 weeks of isolated treatments. Repeat test today is negative. Presented with worsening dyspnea. Chest x-ray consistent with pneumonia. Lactic acidosis on admission. Improved. Elevated troponins. Chest x-ray wet looking. A?/P Dialysis today UF as tolerated dw staff ON LICENSE OF [facility] Medical History (HFpEF) heart failure with preserved ejection fraction Acute blood loss anemia Acute respiratory failure Allergic rhinitis Anemia Atherosclerosis of coronary artery of [place] heart without angina pectoris Benign localized hyperplasia of prostate Carpal tunnel syndrome Chronic allergic rhinitis Chronic hypoxemic respiratory failure Chronic kidney disease, stage V requiring chronic dialysis Chronic otitis media Chronic steroid use CKD (chronic kidney disease) stage 4, GFR 15-29 ml/min Constipation COPD (chronic obstructive pulmonary disease) COPD (chronic obstructive pulmonary disease) Diabetes mellitus Dialysis patient Elevated troponin Epistaxis Essential (primary) hypertension Former smoker GERD (gastroesophageal reflux disease) GI bleed (06/28/19) History of non-ST elevation myocardial infarction (NSTEMI) (02/03/20) History of prostate cancer Hyperlipidemia 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 Hyponatremia Incomplete right bundle branch block Insulin pump titration Ischemic 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 Low back pain Mobitz type I Wenckebach atrioventricular block Neuralgia Nonallopathic lesion of lumbar region Nonallopathic lesion of rib cage Nonallopathic lesion of sacral region Nonallopathic lesion of thoracic region, not elsewhere classified NSVT (nonsustained ventricular tachycardia) Otalgia Otitis externa Overweight Pain in lower limb Paroxysmal atrial fibrillation (06/2019) Pedal edema Peripheral vascular insufficiency 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 Pulmonary nodule PVD (peripheral vascular disease) Reactive airway disease Serous otitis media Thoracic back pain Thoracic outlet syndrome Type I diabetes mellitus Urethral stricture Vitamin D deficiency Wax in ear Home Medications latanoprost 0.005 % eye drops 1 drp EACH EYE DAILY ml 11/15/17 [History Last Taken 03/25/20 06:00 1 DRP] albuterol sulfate 90 mcg/actuation aerosol inhaler 2 puff INHALATION Q6H PRN PRN #18 g 09/24/19 [Rx Last Taken Unknown] brimonidine 0.2 % eye drops 1 drp LEFT EYE BID ml 10/01/19 [History Last Taken 05/05/21] timolol 0.5 % eye drops 1 drp EACH EYE DAILY ml 10/01/19 [History Last Taken 03/25/20 06:00 1 DRP] isosorbide mononitrate 30 mg tablet,extended release 24 hr 30 mg PO DAILY #90 tab 08/09/20 [Rx Last Taken 05/05/21] atorvastatin 80 mg tablet 80 mg PO QHS #90 tab 08/16/20 [Rx Last Taken Unknown] clopidogrel 75 mg tablet 75 mg PO DAILY #90 tab 10/18/20 [Rx Last Taken 05/01/21] ergocalciferol (vitamin D2) 1,250 mcg (50,000 unit) capsule 1,250 mcg PO DAILY 02/15/21 [History Last Taken Unknown] hydralazine 25 mg tablet 25 mg PO TID tab 05/31/21 [History Last Taken Unknown] insulin lispro 100 unit/mL subcutaneous solution 80 unit SC DAILY #70 ml 06/07/21 [Rx Last Taken Unknown] fluticasone fur. 200 mcg-umeclid 62.5 mcg-vilant 25 mcg inhalat.powder 1 inh INHALATION DAILY #60 each 06/15/21 [Rx Last Taken Unknown] metoprolol succinate 25 mg tablet,extended release 24 hr 12.5 mg PO DAILY #45 tab 08/10/21 [Rx Last Taken Unknown] aspirin 81 mg tablet,delayed release 81 mg PO DAILY #90 tab 08/15/21 [Rx Last Taken Unknown] Allergy/AdvReac Type Severity Reaction Status Date / Time amoxicillin [From Augmentin] Allergy Unknown Unknown Verified 06/07/21 11:10 clavulanic acid Allergy Unknown Unknown Verified 06/07/21 11:10 [From Augmentin] Sulfa (Sulfonamide Allergy Unknown Unknown Verified 06/07/21 11:10 Antibiotics) Family History Sister Diabetes Father Heart disease Surgical History H/O inguinal hernia repair H/O prostate biopsy History of appendectomy History of carpal tunnel surgery of left wrist History of coronary artery stent placement (06/29/19) History of femoropopliteal bypass (01/2021) History of left heart catheterization (02/09/20) Problem with dialysis access (05/05/21) S/P bilateral foot surgery S/P rotator cuff repair Social History Smoking Status: Former smoker quit date: 11/12/13 pack-years: 55 how long ago did patient quit smokin years ago second hand exposure: No alcohol intake: never substance use type: does not use caffeine: Yes Type: coffee Number of servings: 1 ROS ROS Narrative negative except HPI Physical Exam Narrative Alert awake oriented x 3 no obvious distress no pallor no icterus no JVD s1s2 no murmurs lungs b/l rales abdomen soft no organomegaly no edema no cyanosis Lab / Micro Data Result Diagrams: 08/15/21 07:04 08/15/21 07:04 Labs: Laboratory Results - last 24 hr 08/15/21 07:04: WBC 14.1 H, RBC 2.99 L, Hgb 8.4 L, Hct 28.6 L, MCV 95.7 H, MCH 28.1, MCHC 29.4 L, RDW Std Deviation 60.1 H, RDW Coeff of Janel 17.2 H, Plt Count 426, MPV 10.4, Immature Gran % (Auto) 0.800, Neut % (Auto) 69.6, Lymph % (Auto) 16.4 L, [place] % (Auto) 11.0 H, Eos % (Auto) 1.5, Baso % (Auto) 0.7, Absolute Neuts (auto) 9.8 H, Absolute Lymphs (auto) 2.30, Nucleated RBC % 0, Diff Path Review March foll, Platelet Estimate ADEQUATE, Hypochromasia 2+ 08/15/21 07:04: PT 12.9, INR 1.0 08/15/21 07:04: Sodium 130 L, Potassium 3.9, Chloride 90 L, Carbon Dioxide 26.0, Anion Gap 14, BUN 55 H, Creatinine 5.10 H, Estim Creat Clear Calc 11.16, Est GFR (MDRD) Af Amer 14 L, Est GFR (MDRD) Non-Af 12 L, BUN/Creatinine Ratio 10.8, Glucose 342 H, Calcium 8.7, Troponin I High Sens 52 08/15/21 07:04: B-Natriuretic Peptide 795.6 H 08/15/21 07:04: Lactic Acid 6.3 H* 08/15/21 07:04: D-Dimer Quant (PE/DVT) 3.58 H* 08/15/21 07:04: Procalcitonin 0.71 H 08/15/21 10:28: Troponin I High Sens 662 H* 08/15/21 11:55: Lactic Acid 2.2 H* 08/15/21 14:15: Troponin I High Sens 3540 H* 08/15/21 14:24: POC Glucose 322 H Micro: Microbiology 08/15/21 13:28 Mucosa - Nose Respiratory Panel (PCR) - Final 08/15/21 07:07 Interface Orders SARS-CoV-2 Antigen (Rapid) - Final ABG Data ABG results: ABG 08/15/21 07:50 Specimen Type ART Sample Site L Radial pH 7.41 Bicarbonate Actual 26.8 H Total CO2 28 Base Excess 2 O2 Saturation 98 O2 % 65 ABG pCO2 41.9 ABG pO2 95 Price Test Positive O2 Delivery Device BiPAP Clinical Comments 27/06 rr12 65% Radiology Impression Chest X-Ray 08/15/21 06:59 IMPRESSION: Slight worsening of pneumonia on the left. Electronically Signed: Derrick Trivedi MD at 8:09 EDT Tel , Service support , Chest CT 08/15/21 08:45 IMPRESSION: 1. Interval development of bilateral peripheral pneumonia. Commonly reported imaging features accompanied 19 pneumonia are present. Other processes such as influenza pneumonia and organized pneumonia as can be seen from drug toxicity and connective tissue disease can cause similar imaging pattern. 2. Moderate bilateral pleural effusions. Electronically Signed: Derrick Trivedi MD at 9:43 EDT Tel , Service support , Echocardiogram 08/15/21 13:36 Interpretation Summary Normal LV size. The estimated ejection fraction is 40 %. Stage 1 diastolic dysfunction. Moderate focal aortic valve calcification. Mean aortic valve gradient 14 mmHg. Mild to moderate aortic stenosis. Pulmonary artery systolic pressure is 36 mmHg. Contrast injection was performed. Ordering Physician: Lisa Perez Referring Physician: Sb Bolanos Performed By: Marj Wheeler, RDCS, RVT Chest CTA 08/15/21 14:22 IMPRESSION: 1. No CT evidence of pulmonary embolism. 2. Bilateral peripheral pneumonia. Commonly reported imaging features of August 30 pneumonia are present. 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 3. Moderate bilateral pleural effusions. Electronically Signed: Derrick Trivedi MD at 15:36 EDT Tel , Service support ,
[2021-08-15 18:50] LABS: Bedside Glucose 235 mg/dL (70-110)
[2021-08-15] MEDS: Budesonide Respules 0.5 MG/2 ML AMPUL.NEB. INHALATION (19:19)
--- NOTE | 2021-08-15 21:01 | DIALYSIS ---
Hemodialysis complete via left upper arm AV fistula with 2 liters fluid removed. Pt tolerated treatment without difficulty. Stasis obtained after needles removed
[2021-08-15] MEDS: Atorvastatin Calcium 80 MG Tablet PO (22:31)
[2021-08-15] MEDS: Latanoprost 0.005% 1 Bottle 1 DRP LEFT EYE (22:32)
[2021-08-15] MEDS: BRIMONIDINE 0.2% 5ML BOTTLE 1 DRP LEFT EYE (22:33)
[2021-08-15 22:50] LABS: Bedside Glucose 264 mg/dL (70-110)
[2021-08-15] MEDS: Insulin Basal Pump SC (23:18)
--- NOTE | 2021-08-15 23:39 | CPS ---
Patient doesn't want to wear the BiPAP at this time.
[2021-08-16] VITALS (32 sets, daily range): BP systolic 98–132; BP diastolic 37–90; PULSE 69–92; RESP 12–24; TEMP 36.4–36.9; O2SAT 95–100; BMI 26.4
[2021-08-16] MEDS: Ipratropium/Albuterol Sulfate 3 ML AMPUL.NEB INHALATION ×4 (00:18→20:10)
[2021-08-16 05:20] LABS: Anion Gap 8 (5-15); BUN 41 mg/dL (7-18); BUN/Creat Ratio 10.1 RATIO (10-20); Chloride 96 mmol/L (98-107); Creatinine, Serum 4.05 mg/dL (0.70-1.30); EST Glomerular Filtration Rate 15 mL/min (>60); Est Glom Filt Rate - Afr Amer 19 mL/min (>60); Estimated Creatinine Clearance 14.54 ml/min; Glucose 299 mg/dL (74-106); Potassium 4.2 mmol/L (3.5-5.1); Sodium Level 134 mmol/L (136-145)
[2021-08-16 05:44] LABS: Absolute Lymphocyte Count 0.57 X10^3/uL (0.83-4.51); Absolute Neutrophil Count 6.3 X10^3/uL (2.0-7.7); Basophil# 0.02 X10^3/uL; Basophil% 0.2 % (0-1); Eosinophil# 0.02 X10^3/uL; Eosinophils% 0.2 % (0-5); Hematocrit 20.8 % (40-54); Hemoglobin 6.4 g/dL (13.0-16.5); Lymphocyte # 0.57 X10^3/ul (0.83-4.51); Lymphocyte % 7.1 % (19-41); Mean Corp Hgb Conc 30.8 g/dL (32-36); Mean Corpuscular Hgb 28.4 pg (27.0-32.0); Mean Corpuscular Volume 92.4 fL (80-94); Mean Platelet Vol. 11.2 fl (6.2-12.0); Monocyte% 13.7 % (0-10); NRBC Flagged by Analyzer 0 % (0-5); Neutrophil # 6.28 X10^3/uL (2.7-7.7); Neutrophil % 78.4 % (47-70); POSITIVE DIFFERENTIAL YES; Platelet Count 196 K/mm3 (150-450); RBC Distribution Width CV 17.2 % (11.6-14.6); Red Blood Count 2.25 M/mm3 (4.6-6.2)
--- NOTE | 2021-08-16 05:55 | EKG12_ITS ---
Test Reason : AM EKG Blood Pressure : / mmHG Vent. Rate : 072 BPM Atrial Rate : 131 BPM P-R Int : 000 ms QRS Dur : 114 ms QT Int : 476 ms P-R-T Axes : 000 -50 -36 degrees QTc Int : 521 ms Atrial fibrillation Left axis deviation Incomplete left bundle branch block Nonspecific T wave abnormality Prolonged QT Abnormal ECG Confirmed by EDDA SPAULDING, MEDARDO ([id number]), newspaper copy editor TWIN ESPINOZA ([id number]) on 08/16/2021 10:04:28 AM Referred By: CHRISTIAN Confirmed By:MEDARDO BAÑUELOS MD
[2021-08-16 06:10] LABS: Differential Indicated SCAN CRITERIA MET
[2021-08-16 06:29] LABS: Differential Comment SCANNED
[2021-08-16] MEDS: Budesonide Respules 0.5 MG/2 ML AMPUL.NEB. INHALATION ×2 (06:59→20:10)
[2021-08-16] MEDS: Insulin Basal Pump SC (07:25)
[2021-08-16 07:31] LABS: Bedside Glucose 288 mg/dL (70-110)
[2021-08-16] MEDS: 0.9% Saline Lock 10 ML Syringe IV ×4 (09:02→20:35)
[2021-08-16] MEDS: Ceftriaxone 1 GM/50 mL Premix Q24 IV (09:02)
[2021-08-16] MEDS: BRIMONIDINE 0.2% 5ML BOTTLE 1 DRP LEFT EYE ×2 (09:03→20:22)
[2021-08-16] MEDS: Timolol 0.5% 5ML OPTH.BTL 1 DRP LEFT EYE (09:04)
[2021-08-16] MEDS: Metoprolol(XL)Succ 25 MG Tablet 12.5 MG PO (09:13)
[2021-08-16] MEDS: Senna/Docusate Sodium 1 Tablet 2 TABLET PO ×2 (09:14→20:22)
[2021-08-16] MEDS: Isosorbide Mononitrate 30 MG Tablet PO (09:15)
--- NOTE | 2021-08-16 10:30 | CASEMGMT ---
AILIN SHEPPARD assessment: Face to Face with patient for initial transition planning/care coordination assessment. AILIN SHEPPARD introduced self and role at [facility], pt voices understanding and consents to assessment. Pt is sitting up in bed on 3L nc and c/o SOB, pt is not tachypnic and Radha PARISI aware. Per Radha, sats are 98% but pt is anxious. at bedside and advises pt to settle down. answers assessment questions for pt and pt is c/o pain at IV sites now but is gripping bed rail very tight and has IV's in right hand/wrist. 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 Radha PARISI aware and ativan to be given per pt/ request d/t pt anxiety. Pt is A/O x4. Pt was vaccinated for COVID. Care providers, pharmacy, and demographics verified. Presentation: Pt awoke at 0300 w/ difficulty breathing, COVID 3 weeks ago, on bipap per EMS Admitting dx: Resp failure, pna, recent COVID PCP: Luis Miguel Specialists: Amy nephro; Luis Miguel pulm; Ynes, cardio; [facility]; [facility] Preferred Pharmacy: [facility] [place] Insurance: [employer] A/B, [employer] Prescription Benefit: Yes Living Will/HPOA: Pt has LW/HPOA and is aware that it's not on file at [facility]. Pt's , Cheyenne Massey, is HPOA. LNOK: Cheyenne Massey, Living Arrangements: Pt lives with in 1 story home and states no concerns at home. Pt is independent with ADL's. Transportation: Pt drives and states no transportation concerns. DME/HHC: Pt has the following DME: cane, walker, rails, grab bars, and 3-4L nc home oxygen thru [facility]. Pt states no need for any further DME. Pt states no hx of HHC or SNF. Pt has OP HD MWF at [facility](pt was recently TTS at [facility] d/t COVID but switched back this week) Pt/ state no concerns with going home at time of discharge. Pt is retired. Pt states does not smoke cigarettes or drink ETOH. Pt voices no further concerns/needs. CM to follow for any further discharge planning/needs. Advised pt to ask for CM if any further questions/concerns/needs arise, voices understanding. Pt Goal: Home Plan: Home Vic PARISI CM
[2021-08-16 11:04] LABS: International Normalized Ratio 1.2; Prothrombin Time (Protime)PT. 14.2 SECONDS (11.7-14.9)
[2021-08-16 11:12] LABS: Partial Thromboplast Time 34.2 Seconds (24.1-36.2)
[2021-08-16] MEDS: LORazepam 2 MG/ML Syringe 0.5 MG IV (11:13)
[2021-08-16 11:18] LABS: Hemoglobin A1c 7.3 % (3.8-5.6)
[2021-08-16 11:19] LABS: AST(SGOT) 52 U/L (15-37); Alanine Aminotransfer ALT/SGPT 25 U/L (16-61); Alkaline Phosphatase 105 U/L (45-117); Globulin 4.3 g/dL (2.2-4.2); Protein, Total 6.3 g/dL (6.4-8.2)
--- NOTE | 2021-08-16 11:26 | PCM.PN.INT ---
Assessment & Plan Assessment/Plan (1) Acute on chronic respiratory failure with hypoxemia: PLAN: RECOMMENDATIONS: 1. Continue to wean supplemental oxygen as tolerated. 2. Continue scheduled bronchodilator therapy and budesonide twice daily as well. 3. Continue hemodialysis per nephrology recommendations. 4. Continue empiric antimicrobials for now. 5. Check H&H posttransfusion. 6. Plan for EGD later today. 7. Continue PPI therapy. IMPRESSIONS: 1. Acute on chronic hypoxemic respiratory failure/history of COPD The exact etiology for the patient's presentation is unclear. While the patient does report that he was diagnosed with coronavirus 3 weeks ago he was apparently doing well from a respiratory perspective until last night. Acute CHF is a possibility given his elevated BNP and troponin along with bilateral effusions noted on chest imaging. In addition, the patient did have an elevated D-dimer. However, CTA chest showed no evidence for pulmonary embolism. He is currently being maintained on empiric antimicrobials along with bronchodilators. He is maintaining appropriate oxygen saturations on his baseline requirement of 3 L/min. 2. Anemia Unclear etiology. There have been no overt signs of any blood loss. The patient is currently receiving transfusion of packed red blood cells. Recommend checking H&H posttransfusion. Continue PPI therapy as ordered. Tentative plans for upper endoscopy later today. 3. End-stage renal disease on hemodialysis Continue dialysis support per nephrology recommendations. 4. Anemia/hyperlipidemia/hypertension/diabetes mellitus Complicates care, management, recovery and prognosis. Continue home medications as indicated. This note was generated with [employer] dictation software. It may contain incorrect words, spelling, and punctuation that were not noted in checking the note before signing. Subjective Subjective The patient was seen and examined at the bedside this morning. Events from the last 24 hours have been reviewed. The patient is currently afebrile, hemodynamically stable and maintaining appropriate oxygen saturations on 3 L/min via nasal cannula. The patient tolerated dialysis yesterday. The patient remains on empiric antimicrobials and scheduled bronchodilators. Hemoglobin is down this morning to 6.4 g/dL. Blood products have been ordered. The patient remains anxious but appears to be at his baseline from a respiratory perspective. There are tentative plans for EGD later this afternoon. Objective Data Objective Data The patient's most recent lab work, culture data and imaging studies have all been personally reviewed. Surface echocardiogram demonstrated an ejection fraction of 40% and stage I diastolic dysfunction. Pulmonary artery systolic pressure was estimated to be 36 mmHg. Mild to moderate aortic stenosis was noted. Stool for occult blood was negative. Strep and urine Legionella antigens were negative. Respiratory viral panel was negative. Rapid coronavirus antigen testing was negative. Vital Signs: Vital Signs Temp Pulse Resp BP Pulse Ox 98.3 F 89 18 114/74 100 08/16/21 11:10 08/16/21 11:10 08/16/21 11:10 08/16/21 11:10 08/16/21 11:10 Oxygen Flow Rate (L/min) 3 Oxygen Delivery Method Nasal Cannula Weight: 78.653 kg Body Mass Index (BMI) 26.4 Intake & Output: Intake and Output for Last 24 Hours 08/14/21 08/15/21 08/16/21 23:59 23:59 23:59 Intake Total 765 / 765 415 / 415 Output Total 1999 Balance -1235 / -1235 385 / 385 Lab / Micro Data Attestation: I reviewed the patient's lab results. Result Diagrams: 08/16/21 04:36 08/16/21 04:36 Labs: Laboratory Results - last 24 hr 08/15/21 07:04: D-Dimer Quant (PE/DVT) 3.58 H* 08/15/21 07:04: Procalcitonin 0.71 H 08/15/21 11:55: Lactic Acid 2.2 H* 08/15/21 14:15: Troponin I High Sens 3540 H* 08/15/21 14:24: POC Glucose 322 H 08/15/21 18:43: POC Glucose 235 H 08/15/21 22:23: POC Glucose 264 H 08/16/21 04:36: WBC 8.0, RBC 2.25 L, Hgb 6.4 L, Hct 20.8 L, MCV 92.4, MCH 28.4, MCHC 30.8 L, RDW Std Deviation 58.0 H, RDW Coeff of Janel 17.2 H, Plt Count 196, MPV 11.2, Immature Gran % (Auto) 0.400, Neut % (Auto) 78.4 H, Lymph % (Auto) 7.1 L, Kleberg % (Auto) 13.7 H, Eos % (Auto) 0.2, Baso % (Auto) 0.2, Absolute Neuts (auto) 6.3, Absolute Lymphs (auto) 0.57 L, Nucleated RBC % 0, Differential Comment SCANNED 08/16/21 04:36: Sodium 134 L, Potassium 4.2, Chloride 96 L, Carbon Dioxide 30.0, Anion Gap 8, BUN 41 H, Creatinine 4.05 H, Estim Creat Clear Calc 14.54, Est GFR (MDRD) Af Amer 19 L, Est GFR (MDRD) Non-Af 15 L, BUN/Creatinine Ratio 10.1, Glucose 299 H, Calcium 8.0 L 08/16/21 04:36: Hemoglobin A1c 7.3 H 08/16/21 06:56: Blood Type O POSITIVE, Antibody Screen NEGATIVE 08/16/21 06:56: Crossmatch See Detail 08/16/21 07:22: POC Glucose 288 H 08/16/21 10:40: PT 14.2, INR 1.2, APTT 34.2 08/16/21 10:40: Total Bilirubin 0.20, Direct Bilirubin 0.10, AST 52 H, ALT 25, Alkaline Phosphatase 105, Total Protein 6.3 L, Albumin 2.0 L, Globulin 4.3 H Micro: Microbiology 08/16/21 10:15 Stool Stool Occult Blood (LEVI) - Final 08/16/21 05:45 Urine, Clean Catch Legionella Antigen - Final 08/16/21 05:45 Urine, Clean Catch Streptococcus pneumoniae Antigen (M - Final 08/15/21 13:28 Mucosa - Nose Respiratory Panel (PCR) - Final 08/15/21 07:07 Interface Orders SARS-CoV-2 Antigen (Rapid) - Final Radiography Diagnostic Testing: Radiology Impression Echocardiogram 08/15/21 13:36 Interpretation Summary Normal LV size. The estimated ejection fraction is 40 %. Stage 1 diastolic dysfunction. Moderate focal aortic valve calcification. Mean aortic valve gradient 14 mmHg. Mild to moderate aortic stenosis. Pulmonary artery systolic pressure is 36 mmHg. Contrast injection was performed. Ordering Physician: Lisa Perez Referring Physician: Sb Bolanos Performed By: Marj Wheeler, BRODIE, RVT Chest CTA 08/15/21 14:22 IMPRESSION: 1. No CT evidence of pulmonary embolism. 2. Bilateral peripheral pneumonia. Commonly reported imaging features of August 30 pneumonia are present. Other processes such as influenza pneumonia and organized pneumonia as can be seen from drug toxicity connective tissue disease can gage designer cause a similar imaging pattern. 3. Moderate bilateral pleural effusions. Electronically Signed: Derrick Trivedi MD at 15:36 EDT Tel , Service support , Physical Exam Const alert and no apparent distress General Appearance: cooperative HEENT normocephalic and head/scalp atraumatic Eyes PERRL and EOMs intact bilaterally Neck supple General: trachea midline Chest inspection of chest normal Resp Effort and Inspection: able to speak in complete sentences Auscultation: diminished lung sounds; Negative for rales, rhonchi or wheezes Cardio regular rate and regular rhythm GI normal to inspection, nondistended, normoactive bowel sounds Extremity General Extremity: edema; Negative for clubbing Skin no rashes or lesions noted Neuro moves all extremities and no focal motor deficits Psych Mood & Affect: anxious Charges/Coding Visit Charges Inpatient E&M: 22479 Subs Hosp L2
[2021-08-16 11:35] LABS: Bedside Glucose 244 mg/dL (70-110)
[2021-08-16 11:59] LABS: Pathologist Review Reviewed
--- NOTE | 2021-08-16 12:14 | PN.RENAL_ITS ---
Subjective Subjective no new complaints, breathing is better Objective Data Objective Data Vital Signs: Vital Signs Temp Pulse Resp BP Pulse Ox 98.2 F 88 18 128/77 H 100 08/16/21 12:10 08/16/21 12:10 08/16/21 12:10 08/16/21 12:10 08/16/21 12:10 Oxygen Flow Rate (L/min) 3 Oxygen Delivery Method Nasal Cannula Weight: 78.653 kg Body Mass Index (BMI) 26.4 Intake & Output: Intake and Output for Last 24 Hours 08/14/21 08/15/21 08/16/21 23:59 23:59 23:59 Intake Total 765 / 765 415 / 415 Output Total 1999 Balance -1235 / -1235 385 / 385 Lab / Micro Data Result Diagrams: 08/16/21 04:36 08/16/21 04:36 Labs: Laboratory Results - last 24 hr 08/15/21 07:04: Diff Path Review Reviewed 08/15/21 07:04: D-Dimer Quant (PE/DVT) 3.58 H* 08/15/21 07:04: Procalcitonin 0.71 H 08/15/21 11:55: Lactic Acid 2.2 H* 08/15/21 14:15: Troponin I High Sens 3540 H* 08/15/21 14:24: POC Glucose 322 H 08/15/21 18:43: POC Glucose 235 H 08/15/21 22:23: POC Glucose 264 H 08/16/21 04:36: WBC 8.0, RBC 2.25 L, Hgb 6.4 L, Hct 20.8 L, MCV 92.4, MCH 28.4, MCHC 30.8 L, RDW Std Deviation 58.0 H, RDW Coeff of Janel 17.2 H, Plt Count 196, MPV 11.2, Immature Gran % (Auto) 0.400, Neut % (Auto) 78.4 H, Lymph % (Auto) 7.1 L, Bryan % (Auto) 13.7 H, Eos % (Auto) 0.2, Baso % (Auto) 0.2, Absolute Neuts (auto) 6.3, Absolute Lymphs (auto) 0.57 L, Nucleated RBC % 0, Differential Comment SCANNED 08/16/21 04:36: Sodium 134 L, Potassium 4.2, Chloride 96 L, Carbon Dioxide 30.0, Anion Gap 8, BUN 41 H, Creatinine 4.05 H, Estim Creat Clear Calc 14.54, Est GFR (MDRD) Af Amer 19 L, Est GFR (MDRD) Non-Af 15 L, BUN/Creatinine Ratio 10.1, Glucose 299 H, Calcium 8.0 L 08/16/21 04:36: Hemoglobin A1c 7.3 H 08/16/21 06:56: Blood Type O POSITIVE, Antibody Screen NEGATIVE 08/16/21 06:56: Crossmatch See Detail 08/16/21 07:22: POC Glucose 288 H 08/16/21 10:40: PT 14.2, INR 1.2, APTT 34.2 08/16/21 10:40: Total Bilirubin 0.20, Direct Bilirubin 0.10, AST 52 H, ALT 25, Alkaline Phosphatase 105, Total Protein 6.3 L, Albumin 2.0 L, Globulin 4.3 H 08/16/21 11:28: POC Glucose 244 H Micro: Microbiology 08/16/21 10:15 Stool Stool Occult Blood (LEVI) - Final 08/16/21 05:45 Urine, Clean Catch Legionella Antigen - Final 08/16/21 05:45 Urine, Clean Catch Streptococcus pneumoniae Antigen (M - Final 08/15/21 13:28 Mucosa - Nose Respiratory Panel (PCR) - Final 08/15/21 07:07 Interface Orders SARS-CoV-2 Antigen (Rapid) - Final Radiography Diagnostic Testing: Radiology Impression Echocardiogram 08/15/21 13:36 Interpretation Summary Normal LV size. The estimated ejection fraction is 40 %. Stage 1 diastolic dysfunction. Moderate focal aortic valve calcification. Mean aortic valve gradient 14 mmHg. Mild to moderate aortic stenosis. Pulmonary artery systolic pressure is 36 mmHg. Contrast injection was performed. Ordering Physician: Lisa Perez Referring Physician: Sb Bolanos Performed By: Marj Wheeler, RDCS, RVT Chest CTA 08/15/21 14:22 IMPRESSION: 1. No CT evidence of pulmonary embolism. 2. Bilateral peripheral pneumonia. Commonly reported imaging features of August 30 pneumonia are present. Other processes such as influenza pneumonia and organized pneumonia as can be seen from drug toxicity connective tissue disease can abattoir manager cause a similar imaging pattern. 3. Moderate bilateral pleural effusions. Electronically Signed: Derrick Trivedi MD at 15:36 EDT Tel , Service support , Physical Exam Narrative Alert awake oriented x 3 no obvious distress no pallor no icterus no JVD s1s2 no murmurs lungs b/l rales abdomen soft no organomegaly no edema no cyanosis Assessment & Plan Assessment/Plan (1) Chronic kidney disease, stage V requiring chronic dialysis: PLAN: ESRD. HD yesterday and maintain MWF schedule. tolerated well. off bi pap. now on nasal cannula. echo reviewed. anemia today. getting PRBC.
--- NOTE | 2021-08-16 13:45 | NURSING ---
Patient off unit at this time for EGD.
--- NOTE | 2021-08-16 15:52 | PN.HOSP_ITS ---
Subjective Subjective Patient seen and examined. He had no complaints this morning, and felt much better. He was off BIPAP. He denies any chest pain, palpitations, dizziness, nausea or vomiting. Review of systems is otherwise negative. His Hb dropped to 6.6 today overnight. He denies any dark stools, coffee ground emesis. Objective Data Objective Data Vital Signs: Vital Signs Temp Pulse Resp BP Pulse Ox 98.1 F 88 20 H 130/75 H 100 08/16/21 13:16 08/16/21 13:21 08/16/21 13:21 08/16/21 13:16 08/16/21 13:16 Oxygen Flow Rate (L/min) 3 Oxygen Delivery Method Nasal Cannula Weight: 173 lb 6.4 oz Body Mass Index (BMI) 26.4 Intake & Output: Intake and Output for Last 24 Hours 08/14/21 08/15/21 08/16/21 23:59 23:59 23:59 Intake Total 765 / 765 515 / 515 Output Total 1999 Balance -1235 / -1235 485 / 485 Lab / Micro Data Result Diagrams: 08/16/21 04:36 08/16/21 04:36 Labs: Laboratory Results - last 24 hr 08/15/21 07:04: Diff Path Review Reviewed 08/15/21 18:43: POC Glucose 235 H 08/15/21 22:23: POC Glucose 264 H 08/16/21 04:36: WBC 8.0, RBC 2.25 L, Hgb 6.4 L, Hct 20.8 L, MCV 92.4, MCH 28.4, MCHC 30.8 L, RDW Std Deviation 58.0 H, RDW Coeff of Janel 17.2 H, Plt Count 196, MPV 11.2, Immature Gran % (Auto) 0.400, Neut % (Auto) 78.4 H, Lymph % (Auto) 7.1 L, Walworth % (Auto) 13.7 H, Eos % (Auto) 0.2, Baso % (Auto) 0.2, Absolute Neuts (auto) 6.3, Absolute Lymphs (auto) 0.57 L, Nucleated RBC % 0, Differential Comment SCANNED 08/16/21 04:36: Sodium 134 L, Potassium 4.2, Chloride 96 L, Carbon Dioxide 30.0, Anion Gap 8, BUN 41 H, Creatinine 4.05 H, Estim Creat Clear Calc 14.54, Est GFR (MDRD) Af Amer 19 L, Est GFR (MDRD) Non-Af 15 L, BUN/Creatinine Ratio 10.1, Glucose 299 H, Calcium 8.0 L 08/16/21 04:36: Hemoglobin A1c 7.3 H 08/16/21 06:56: Blood Type O POSITIVE, Antibody Screen NEGATIVE 08/16/21 06:56: Crossmatch See Detail 08/16/21 07:22: POC Glucose 288 H 08/16/21 10:40: PT 14.2, INR 1.2, APTT 34.2 08/16/21 10:40: Total Bilirubin 0.20, Direct Bilirubin 0.10, AST 52 H, ALT 25, Alkaline Phosphatase 105, Total Protein 6.3 L, Albumin 2.0 L, Globulin 4.3 H 08/16/21 11:28: POC Glucose 244 H Micro: Microbiology 08/16/21 10:15 Stool Stool Occult Blood (LEVI) - Final 08/16/21 05:45 Urine, Clean Catch Legionella Antigen - Final 08/16/21 05:45 Urine, Clean Catch Streptococcus pneumoniae Antigen (M - Final 08/15/21 13:28 Mucosa - Nose Respiratory Panel (PCR) - Final 08/15/21 07:07 Interface Orders SARS-CoV-2 Antigen (Rapid) - Final Radiography Diagnostic Testing: Radiology Impression Echocardiogram 08/15/21 13:36 Interpretation Summary Normal LV size. The estimated ejection fraction is 40 %. Stage 1 diastolic dysfunction. Moderate focal aortic valve calcification. Mean aortic valve gradient 14 mmHg. Mild to moderate aortic stenosis. Pulmonary artery systolic pressure is 36 mmHg. Contrast injection was performed. Ordering Physician: Lisa Perez Referring Physician: Sb Bolanos Performed By: Marj Wheeler, BRODIE, RVT Physical Exam Const alert, oriented x3 and no apparent distress Exam Limitations: no limitations HEENT normocephalic, head/scalp atraumatic, hearing grossly normal bilaterally and moist oral mucous membranes Head and Scalp: normocephalic Eyes PERRL, EOMs intact bilaterally and conjunctivae normal Neck no lymphadenopathy Resp Resp Narrative: tachypneic, diminished breath sounds bibasally, no wheezes or crackles. On 3L of oxygen. Cardio regular rate, regular rhythm, S1 normal heart sound, S2 normal heart sound and no murmurs GI normal to inspection, nondistended, normoactive bowel sounds, soft to palpation, non-tender and non-distended Extremity normal to inspection, full ROM and no clubbing, cyanosis or edema Peripheral Pulses: Yes pulses 2+ throughout Skin no rashes or lesions noted Neuro oriented x3, CN's II-XII intact bilaterally and moves all extremities Sensorium / Orientation: awake and alert Psych affect normal Assessment & Plan Assessment/Plan (1) Acute on chronic respiratory failure with hypoxemia: (2) Non-STEMI (non-ST elevated myocardial infarction): PLAN: #Acute on chronic hypoxic respiratory failure due to bilateral pneumonia and nonstemi * now down to 3L of oxygen by nasal canula. * on IV ceftriaxone and azithromcyin. * troponins trended up from 52 to a peak of 3540. * CTA of the chest was negative for PE and showed bilateral pneumonia and bilateral pleural effusions * titrate oxygen to maintain sats >90%. * breathing treatment wtih bronchodilators * pulmonology on board * #Severe sepsis due to pneumonia * on IV ceftriaxone and azithromycin. blood and urine cultures pending. * #ESRD * on HD MWF * nephrology on board. Had dialysis yesterday, and is due to repeat today. * CT chest showed bilateral pleural effusions which may be related to fluid overload. * * #Acute on chronic heart failure with reduced ejection fraction * BNP was 795. * had dialysis yesterday and will have dialysis today as well to remove more fluid, which will help with shortness of breath. * #Nonstemi * EKG showed no acute ST changes * troponin trended up from 52 to >600 * cardiology on board; * 2D echo: EF of 40% and stage 1 diastolic dysfunction, and mild to moderate aortic stenosis, with pulmonary artery systolic pressure. * #Acute on chronic anemia * Hb is 6.4; was 8.4 on admission. * aspirin and plavix on hold. * transfuse with 2 units of PRBCs * consult gastroenterology * start on IV pantoprazole 40mg bid * #CAD s/p stents * had 2 stents placed at [facility] in 2017 * aspirin and plavix on hold due to acute on chronic anemia. * * #Paroxysmal afib: on metoprolol DVT prophylaxis: DC lovenox o/a of acute on chronic anemia. Charges/Coding Visit Charges Inpatient E&M: 64105 Subs Hosp L3
--- NOTE | 2021-08-16 16:02 | OP.EGD_ITS ---
Patient Name: Hector Massey Procedure Date: 08/16/2021 3:16 PM Date of : 1945 Age: 76 Procedure: Upper GI endoscopy Indications: Iron deficiency anemia Providers: Sebastian Flores DO Medicines: Monitored Anesthesia Care Patient Profile: This is a 76 year old male. Refer to note in patient chart for documentation of history and physical. Patient has symptoms. The symptoms first began 04,. Complications: No immediate complications. Procedure: Pre-Anesthesia Assessment: - Prior to the procedure, a History and Physical was performed, and patient medications and allergies were reviewed. The patient is competent. The risks and benefits of the procedure and the sedation options and risks were discussed with the patient. All questions were answered and informed consent was obtained. Patient identification and proposed procedure were verified by the physician in the pre-procedure area. Mental Status Examination: alert and oriented. Respiratory Examination: clear to auscultation. Prophylactic Antibiotics: The patient does not require prophylactic antibiotics. Prior Anticoagulants: The patient has taken no previous anticoagulant or antiplatelet agents. ASA Grade Assessment: II - A patient with mild systemic disease. After reviewing the risks and benefits, the patient was deemed in satisfactory condition to undergo the procedure. The anesthesia plan was to use moderate sedation / analgesia (conscious sedation). Immediately prior to administration of medications, the patient was re-assessed for adequacy to receive sedatives. The heart rate, respiratory rate, oxygen saturations, blood pressure, adequacy of pulmonary ventilation, and response to care were monitored throughout the procedure. The physical status of the patient was re-assessed after the procedure. After obtaining informed consent, the endoscope was passed under direct vision. Throughout the procedure, the patient's blood pressure, pulse, and oxygen saturations were monitored continuously. The Endoscope was introduced through the mouth, and advanced to the second part of duodenum. The upper GI endoscopy was accomplished without difficulty. The patient tolerated the procedure well. Moderate Sedation: Moderate (conscious) sedation was administered by the endoscopy nurse and supervised by the endoscopist. The patient's oxygen saturation, heart rate, blood pressure and response to care were monitored. Scope In: 3:39:44 PM Scope Out: 3:43:25 PM Total Procedure Duration Time 0 hours 3 minutes 41 seconds Findings: The examined esophagus was normal. The entire examined stomach was normal. The second portion of the duodenum was normal. Impression: - Normal esophagus. - Normal stomach. - Normal second portion of the duodenum. - No specimens collected. Recommendation: - [facility]. - Full liquid diet today. - Continue present medications. Procedure Code(s): --- Professional --- 12429, Esophagogastroduodenoscopy, flexible, transoral; diagnostic, including collection of specimen(s) by brushing or washing, when performed (separate procedure) CPT copyright 2017 [employer] [place] [employer]. All rights reserved. The codes documented in this report are preliminary and upon paint line production supervisor review may be revised to meet current compliance requirements. Sebastian Flores DO 08/16/2021 4:01:33 PM This report has been signed electronically. Number of Addenda: 1 Note Initiated On: 08/16/2021 3:16 PM Addendum Number: 1 Addendum Date: 07/13/2022 4:18:48 PM MAC was used instead of moderate sedation for this patient. Sebastian Flores DO 07/13/2022 4:18:52 PM This report has been signed electronically.
--- NOTE | 2021-08-16 16:03 | OP.CCLET_ITS ---
07/13/2022 Sb Bolanos Re : Upper GI endoscopy procedure for Hector Massey Dear Dr. Bolanos This procedure was performed on Monday, August 16, 2021. My impressions and recommendations are as follows: Impressions : - Normal esophagus. - Normal stomach. - Normal second portion of the duodenum. - No specimens collected. Recommendations : - [facility]. - Full liquid diet today. - Continue present medications. My findings are described in the full procedure note, which is enclosed. If I can be of further assistance, please feel free to contact me at . Sincerely, Sebastian Folres, 08/16/2021 4:01:33 PM This report has been signed electronically.
--- NOTE | 2021-08-16 16:42 | CON.PCM.GI_ITS ---
HPI Consult Data Date of Consult: 08/16/21 HPI Narrative HPI Narrative: DIVYA HUSAIN, is a 76 M with a history of CAD status post PTCA with stents. He is on aspirin and Plavix. He also has a history of recent history of non-ST segment elevation AR. Last year he was started on dialysis due to worsening renal failure and had multiple episodes of CHF exact. He gets hemodialysis Sunday and Sunday. He also has a history of peripheral vascular disease status post bypass. He has a history of diastolic as well as dysfunction. After talking to the patient his medical history is really based around his early onset diabetes. As of a little over 2 weeks ago he was noticed Covid and finished his quarantine. When he came into the hospital recently he was determined to have a hemoglobin of 6.4. His hemoglobin was 10.7 then it went to 8.7. I was called to see him due to his worsening anemia and need for antiplatelet therapy. All other 16 review of systems are negative except the pertinent positive mentioned HPI. ON LICENSE OF [facility] Medical History (HFpEF) heart failure with preserved ejection fraction Acute blood loss anemia Acute respiratory failure Allergic rhinitis Anemia Atherosclerosis of coronary artery of [place] heart without angina pectoris Benign localized hyperplasia of prostate Carpal tunnel syndrome Chronic allergic rhinitis Chronic hypoxemic respiratory failure Chronic kidney disease, stage V requiring chronic dialysis Chronic otitis media Chronic steroid use CKD (chronic kidney disease) stage 4, GFR 15-29 ml/min Constipation COPD (chronic obstructive pulmonary disease) COPD (chronic obstructive pulmonary disease) Diabetes mellitus Dialysis patient Elevated troponin Epistaxis Essential (primary) hypertension Former smoker GERD (gastroesophageal reflux disease) GI bleed (06/28/19) History of non-ST elevation myocardial infarction (NSTEMI) (02/03/20) History of prostate cancer Hyperlipidemia 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 Hyponatremia Incomplete right bundle branch block Insulin pump titration Ischemic cardiomyopathy 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 Low back pain Mobitz type I Wenckebach atrioventricular block Neuralgia Nonallopathic lesion of lumbar region Nonallopathic lesion of rib cage Nonallopathic lesion of sacral region Nonallopathic lesion of thoracic region, not elsewhere classified NSVT (nonsustained ventricular tachycardia) Otalgia Otitis externa Overweight Pain in lower limb Paroxysmal atrial fibrillation (06/2019) Pedal edema Peripheral vascular insufficiency 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 Pulmonary nodule PVD (peripheral vascular disease) Reactive airway disease Serous otitis media Thoracic back pain Thoracic outlet syndrome Type I diabetes mellitus Urethral stricture Vitamin D deficiency Wax in ear Home Medications latanoprost 0.005 % eye drops 1 drp EACH EYE DAILY ml 11/15/17 [History Last Taken 03/25/20 06:00 1 DRP] albuterol sulfate 90 mcg/actuation aerosol inhaler 2 puff INHALATION Q6H PRN PRN #18 g 08/05/19 [Rx Last Taken Unknown] brimonidine 0.2 % eye drops 1 drp LEFT EYE BID ml 10/01/19 [History Last Taken 05/05/21] timolol 0.5 % eye drops 1 drp EACH EYE DAILY ml 10/01/19 [History Last Taken 03/25/20 06:00 1 DRP] hydralazine 25 mg tablet 25 mg PO TID tab 05/31/21 [History Last Taken Unknown] metoprolol succinate 25 mg tablet,extended release 24 hr 12.5 mg PO DAILY #45 tab 08/10/21 [Rx Last Taken Unknown] aspirin 81 mg PO DAILY 08/15/21 [History Last Taken Unknown] atorvastatin 80 mg PO QHS 08/15/21 [History Last Taken Unknown] clopidogrel [Plavix] 75 mg PO DAILY 08/15/21 [History Last Taken Unknown] ghzznixhbnc-[id number]-[id number] [Trelegy Ellipta] 1 inh INHALATION DAILY 08/15/21 [History Last Taken Unknown] insulin lispro [Humalog U-100 Insulin] 150 unit SC DAILY 08/15/21 [History Last Taken Unknown] isosorbide mononitrate 30 mg PO DAILY 08/15/21 [History Last Taken Unknown] Allergy/AdvReac Type Severity Reaction Status Date / Time amoxicillin [From Augmentin] Allergy Unknown Unknown Verified 06/07/21 11:10 clavulanic acid Allergy Unknown Unknown Verified 06/07/21 11:10 [From Augmentin] Sulfa (Sulfonamide Allergy Unknown Unknown Verified 06/07/21 11:10 Antibiotics) Family History Sister Diabetes Father Heart disease Surgical History H/O inguinal hernia repair H/O prostate biopsy History of appendectomy History of carpal tunnel surgery of left wrist History of coronary artery stent placement (06/29/19) History of femoropopliteal bypass (01/2021) History of left heart catheterization (02/09/20) Problem with dialysis access (05/05/21) S/P bilateral foot surgery S/P rotator cuff repair Social History Smoking Status: Former smoker quit date: 11/12/13 pack-years: 55 how long ago did patient quit smokin years ago second hand exposure: No alcohol intake: never substance use type: does not use caffeine: Yes Type: coffee Number of servings: 1 ROS Review of Systems ROS Unobtainable: other Constitutional Constitutional: Denies fatigue, fever(s), poor appetite, weight gain or weight loss ENT HEENT: Denies mouth lesions Cardiovascular Cardiovascular: Denies abdominal bloating, abdominal edema or abdominal pain Respiratory/Chest Respiratory/Chest: Denies change in mental status, change in phlegm color, chest congestion or chest tightness Gastrointestinal Gastrointestinal: Denies belching, bloating, change in bowel habits, change in stool character, chewing difficulty, coffee ground emesis, constipation, cramping, diarrhea, dyspepsia, dysphagia, early satiety, excessive flatus, fecal incontinence, heartburn, hematemesis, hematochezia, hemorrhoids, loose stools, melena, nausea, odynophagia, rectal bleeding, tenesmus, vomiting or weight changes Genitourinary Genitourinary: Denies abdominal discomfort, burning urination or itching Musculoskeletal Musculoskeletal: Reports as per HPI; Denies muscle weakness or myalgias Integumentary Integumentary: Denies jaundice Neurologic Neurologic: Denies lack of coordination or weakness Psychiatric Psychiatric: Denies confusion, depression, memory loss, mood swings, paranoia or suicidal ideation Endocrine Endocrinology: Denies systems reviewed and no addt'l complaints, except as documented Hematologic/Lymphatic Hematologic/Lymphatic: Denies anemia, easy bleeding, easy bruising or lymphadenopathy Allergic/Immunologic Allergic/Immunologic: Denies systems reviewed and no addt'l complaints, except as documented Physical Exam Const alert General Appearance: cooperative Orientation / Consciousness: oriented to person HEENT hearing grossly normal bilaterally Head and Scalp: normal to inspection Face and Sinus: face symmetric Nose: external nose normal Mouth: oral and palatal mucosa normal Eyes conjunctivae normal General Eye: normal appearance of both eyes Neck full ROM General: normal visual inspection Lymph Lymphatic: no lymphadenopathy noted Chest inspection of chest normal and palpation of chest normal Chest: symmetrical chest wall rise Resp normal respiratory effort Effort and Inspection: able to speak in complete sentences Cardio regular rate GI non-distended Percussion: normal to percussion Rectal Exam: deferred Neuro Speech: speech normal Gait (Neuro): normal gait Lab / Micro Data Result Diagrams: 08/16/21 04:36 08/16/21 04:36 Labs: Laboratory Results - last 24 hr 08/15/21 07:04: Diff Path Review Reviewed 08/15/21 18:43: POC Glucose 235 H 08/15/21 22:23: POC Glucose 264 H 08/16/21 04:36: WBC 8.0, RBC 2.25 L, Hgb 6.4 L, Hct 20.8 L, MCV 92.4, MCH 28.4, MCHC 30.8 L, RDW Std Deviation 58.0 H, RDW Coeff of Janel 17.2 H, Plt Count 196, MPV 11.2, Immature Gran % (Auto) 0.400, Neut % (Auto) 78.4 H, Lymph % (Auto) 7.1 L, [place] % (Auto) 13.7 H, Eos % (Auto) 0.2, Baso % (Auto) 0.2, Absolute Neuts (auto) 6.3, Absolute Lymphs (auto) 0.57 L, Nucleated RBC % 0, Differential Comment SCANNED 08/16/21 04:36: Sodium 134 L, Potassium 4.2, Chloride 96 L, Carbon Dioxide 30.0, Anion Gap 8, BUN 41 H, Creatinine 4.05 H, Estim Creat Clear Calc 14.54, Est GFR (MDRD) Af Amer 19 L, Est GFR (MDRD) Non-Af 15 L, BUN/Creatinine Ratio 10.1, Glucose 299 H, Calcium 8.0 L 08/16/21 04:36: Hemoglobin A1c 7.3 H 08/16/21 06:56: Blood Type O POSITIVE, Antibody Screen NEGATIVE 08/16/21 06:56: Crossmatch See Detail 08/16/21 07:22: POC Glucose 288 H 08/16/21 10:40: PT 14.2, INR 1.2, APTT 34.2 08/16/21 10:40: Total Bilirubin 0.20, Direct Bilirubin 0.10, AST 52 H, ALT 25, Alkaline Phosphatase 105, Total Protein 6.3 L, Albumin 2.0 L, Globulin 4.3 H 08/16/21 11:28: POC Glucose 244 H Micro: Microbiology 08/16/21 10:15 Stool Stool Occult Blood (LEVI) - Final 08/16/21 05:45 Urine, Clean Catch Legionella Antigen - Final 08/16/21 05:45 Urine, Clean Catch Streptococcus pneumoniae Antigen (M - Final 08/15/21 13:28 Mucosa - Nose Respiratory Panel (PCR) - Final Assessment & Plan Assessment/Plan (1) Anemia: PLAN: Patient has agreed to undergo upper endoscopy to evaluate his upper GI tract. His risk factors for upper GI bleed would be his aspirin and Plavix in the setting of a patient with CAD and recent non-ST segment elevation AR. If his upper endoscopy not show any signs of bleeding then he will need to undergo a colonoscopy. As he has not had a colonoscopy in the last 10 years. He was explained alternatives, risk, benefits including outstanding bleeding, infection, sepsis, perforation, need for emergency to . He will have an ASA of 3. Charges/Coding Visit Charges Inpatient E&M: 88411 Init Hosp L3
[2021-08-16 17:06] LABS: Bedside Glucose 99 mg/dL (70-110)
[2021-08-16] MEDS: Latanoprost 0.005% 1 Bottle 1 DRP LEFT EYE (20:22)
[2021-08-16] MEDS: Atorvastatin Calcium 80 MG Tablet PO (20:27)
[2021-08-16 20:42] LABS: Hematocrit 26.8 % (40-54); Hemoglobin 8.6 g/dL (13.0-16.5)
[2021-08-16 21:11] LABS: Bedside Glucose 140 mg/dL (70-110)
[2021-08-16] MEDS: LORazepam 0.5 MG Tablet PO (21:12)
[2021-08-17] VITALS (13 sets, daily range): BP systolic 115–152; BP diastolic 55–77; PULSE 78–97; RESP 16–18; TEMP 36.6–37.2; O2SAT 94–100
[2021-08-17 06:12] LABS: Basophil# 0.05 X10^3/uL; Basophil% 0.5 % (0-1); Eosinophil# 0.13 X10^3/uL; Eosinophils% 1.3 % (0-5); Hematocrit 29.1 % (40-54); Hemoglobin 9.1 g/dL (13.0-16.5); Mean Corp Hgb Conc 31.3 g/dL (32-36); Mean Corpuscular Hgb 28.4 pg (27.0-32.0); Mean Corpuscular Volume 90.9 fL (80-94); Mean Platelet Vol. 10.5 fl (6.2-12.0); Monocyte# 1.19 X10^3/uL; Monocyte% 11.9 % (0-10); NRBC Flagged by Analyzer 0 % (0-5); Neutrophil # 8.03 X10^3/uL (2.7-7.7); Neutrophil % 80.6 % (47-70); POSITIVE DIFFERENTIAL YES; Platelet Count 214 K/mm3 (150-450); RBC Distribution Width CV 17.7 % (11.6-14.6); RBC Distribution Width SD 57.4 fl (35.1-43.9)
[2021-08-17 06:30] LABS: Differential Indicated SCAN CRITERIA MET
[2021-08-17 06:45] LABS: Anion Gap 9 (5-15); BUN 52 mg/dL (7-18); Calcium,Total 8.2 mg/dL (8.5-10.1); Chloride 98 mmol/L (98-107); Creatinine, Serum 5.18 mg/dL (0.70-1.30); EST Glomerular Filtration Rate 12 mL/min (>60); Est Glom Filt Rate - Afr Amer 14 mL/min (>60); Estimated Creatinine Clearance 11.37 ml/min; Glucose 64 mg/dL (74-106); Potassium 4.5 mmol/L (3.5-5.1); Sodium Level 135 mmol/L (136-145)
[2021-08-17 06:55] LABS: Bedside Glucose 70 mg/dL (70-110)
[2021-08-17 07:01] LABS: Bedside Glucose 92 mg/dL (70-110)
[2021-08-17] MEDS: Ipratropium/Albuterol Sulfate 3 ML AMPUL.NEB INHALATION ×3 (07:10→19:55)
[2021-08-17] MEDS: Budesonide Respules 0.5 MG/2 ML AMPUL.NEB. INHALATION ×2 (07:10→19:55)
--- NOTE | 2021-08-17 07:54 | PN.HOSP_ITS ---
Subjective Subjective Patient seen and examined. He was having dialysis at time of review. He had no active complaints and felt much better. Review of systems otherwise negative. He had EGD today which was negative for any evidence of bleeding. He is due for colonoscopy tomorrow. He has remained hemodynamically stable. Objective Data Objective Data Vital Signs: Vital Signs Temp Pulse Resp BP Pulse Ox 98 F 87 18 133/68 H 98 08/17/21 03:22 08/17/21 03:22 08/17/21 03:22 08/17/21 03:22 08/17/21 03:22 Oxygen Flow Rate (L/min) 3 Oxygen Delivery Method Nasal Cannula Weight: 173 lb 6.4 oz Body Mass Index (BMI) 26.4 Intake & Output: Intake and Output for Last 24 Hours 08/15/21 08/16/21 08/17/21 23:59 23:59 23:59 Intake Total 765 / 765 985 / 985 360 / 360 Output Total 1999 30 Balance -1235 / -1235 955 / 955 360 / 360 Lab / Micro Data Result Diagrams: 08/17/21 05:44 08/17/21 05:44 Labs: Laboratory Results - last 24 hr 08/15/21 07:04: Diff Path Review Reviewed 08/16/21 04:36: Hemoglobin A1c 7.3 H 08/16/21 06:56: Blood Type O POSITIVE, Antibody Screen NEGATIVE 08/16/21 06:56: Crossmatch See Detail 08/16/21 10:40: PT 14.2, INR 1.2, APTT 34.2 08/16/21 10:40: Total Bilirubin 0.20, Direct Bilirubin 0.10, AST 52 H, ALT 25, Alkaline Phosphatase 105, Total Protein 6.3 L, Albumin 2.0 L, Globulin 4.3 H 08/16/21 11:28: POC Glucose 244 H 08/16/21 16:50: POC Glucose 99 08/16/21 20:13: Hgb 8.6 L, Hct 26.8 L 08/16/21 20:21: POC Glucose 140 H 08/17/21 05:44: WBC 10.0, RBC 3.20 L, Hgb 9.1 L, Hct 29.1 L, MCV 90.9, MCH 28.4, MCHC 31.3 L, RDW Std Deviation 57.4 H, RDW Coeff of Janel 17.7 H, Plt Count 214, MPV 10.5, Immature Gran % (Auto) 0.700, Neut % (Auto) 80.6 H, Lymph % (Auto) 5.0 L, [place] % (Auto) 11.9 H, Eos % (Auto) 1.3, Baso % (Auto) 0.5, Absolute Neuts (auto) 8.0 H, Absolute Lymphs (auto) 0.50 L, Nucleated RBC % 0 08/17/21 05:44: Sodium 135 L, Potassium 4.5, Chloride 98, Carbon Dioxide 28.0, Anion Gap 9, BUN 52 H, Creatinine 5.18 H, Estim Creat Clear Calc 11.37, Est GFR (MDRD) Af Amer 14 L, Est GFR (MDRD) Non-Af 12 L, BUN/Creatinine Ratio 10.0, Glucose 64 L, Calcium 8.2 L 08/17/21 06:06: POC Glucose 70 08/17/21 06:58: POC Glucose 92 Micro: Microbiology 08/15/21 07:25 Blood Culture (Wb) - Left Hand Blood Culture - Preliminary No growth in 48 hours. 08/15/21 07:15 Blood Culture (Wb) - Anticubital Right Blood Culture - Preliminary No growth in 48 hours. 08/16/21 10:15 Stool Stool Occult Blood (LEVI) - Final 08/16/21 05:45 Urine, Clean Catch Legionella Antigen - Final 08/16/21 05:45 Urine, Clean Catch Streptococcus pneumoniae Antigen (M - Final 08/15/21 13:28 Mucosa - Nose Respiratory Panel (PCR) - Final 08/15/21 07:07 Interface Orders SARS-CoV-2 Antigen (Rapid) - Final Physical Exam Const alert, oriented x3 and no apparent distress Exam Limitations: no limitations HEENT normocephalic, head/scalp atraumatic, hearing grossly normal bilaterally and moist oral mucous membranes Head and Scalp: normocephalic Eyes PERRL, EOMs intact bilaterally and conjunctivae normal Neck no lymphadenopathy Resp Resp Narrative: tachypneic, diminished breath sounds bibasally, no wheezes or crackles. On 3L of oxygen. Cardio regular rate, regular rhythm, S1 normal heart sound, S2 normal heart sound and no murmurs GI normal to inspection, nondistended, normoactive bowel sounds, soft to palpation, non-tender and non-distended Extremity normal to inspection, full ROM and no clubbing, cyanosis or edema Extremity Narrative: AV fistula in LUE with good thrill. Having dialysis Peripheral Pulses: Yes pulses 2+ throughout Skin no rashes or lesions noted Neuro oriented x3, CN's II-XII intact bilaterally and moves all extremities Sensorium / Orientation: awake and alert Psych affect normal Assessment & Plan Assessment/Plan (1) Acute on chronic respiratory failure with hypoxemia: (2) Non-STEMI (non-ST elevated myocardial infarction): PLAN: #Acute on chronic hypoxic respiratory failure due to bilateral pneumonia and nonstemi * now down to 3L of oxygen by nasal canula. * on IV ceftriaxone and azithromcyin. * troponins trended up from 52 to a peak of 3540. * CTA of the chest was negative for PE and showed bilateral pneumonia and bilateral pleural effusions * titrate oxygen to maintain sats >90%. * breathing treatment wtih bronchodilators * pulmonology on board * #Severe sepsis due to pneumonia * on IV ceftriaxone and azithromycin. blood and urine cultures pending. * #ESRD * on HD MWF * nephrology on board. Having dialysis today. * CT chest showed bilateral pleural effusions which may be related to fluid over load. * * #Acute on chronic heart failure with reduced ejection fraction * BNP was 795. * for dialysis today as well. * #Nonstemi * EKG showed no acute ST changes * troponin trended up from 52 to >600 * cardiology on board; * 2D echo: EF of 40% and stage 1 diastolic dysfunction, and mild to moderate aortic stenosis, with pulmonary artery systolic pressure. * #Acute on chronic anemia * hb is up to 9.1 today, from 6.4 yesterday * s/p transfusion of 2 units of PRBCs * aspirin and plavix on hold. * transfuse with 2 units of PRBCs * GI on board. had EGD which was negative. * on IV pantoprazole 40mg bid. For colonoscopy tomorrow * start on IV pantoprazole 40mg bid * #CAD s/p stents * had 2 stents placed at [facility] in 2017 * aspirin and plavix on hold due to acute on chronic anemia. * #Paroxysmal afib: on metoprolol DVT prophylaxis: SCDs. no anticoagulation o/a of acute on chronic anemia Charges/Coding Visit Charges Inpatient E&M: 58073 Subs Hosp L3
--- NOTE | 2021-08-17 12:13 | PN.CC_ITS ---
Assessment & Plan Assessment/Plan (1) Acute on chronic respiratory failure with hypoxemia: PLAN: RECOMMENDATIONS: 1. Continue to wean supplemental oxygen as tolerated. 2. Continue scheduled bronchodilator therapy and budesonide twice daily as well. 3. Continue hemodialysis per nephrology recommendations. 4. Continue empiric antimicrobials to complete 7-day treatment course. 5. Transfuse for hemoglobin less than 7 g/dL. 6. Continue PPI therapy. 7. Given that the patient is at his baseline from a respiratory perspective, will sign off. Please call with any additional questions. The patient should follow-up in the pulmonary medicine clinic as previously scheduled. IMPRESSIONS: 1. Acute on chronic hypoxemic respiratory failure/history of COPD The exact etiology for the patient's presentation is unclear. While the patient does report that he was diagnosed with coronavirus 3 weeks ago he was apparently doing well from a respiratory perspective until last night. Acute CHF is a possibility given his elevated BNP and troponin along with bilateral effusions noted on chest imaging. In addition, the patient did have an elevated D-dimer. However, CTA chest showed no evidence for pulmonary embolism. He is currently being maintained on empiric antimicrobials along with bronchodilators. He is maintaining appropriate oxygen saturations on his baseline requirement of 3 L/min. 2. Anemia Unclear etiology. There have been no overt signs of any blood loss. The patient did receive 2 units of packed red blood cells with appropriate improvement in his H&H. Upper endoscopy was unrevealing. The patient will remain on PPI therapy. Additional work-up per GI. 3. End-stage renal disease on hemodialysis Continue dialysis support per nephrology recommendations. 4. Anemia/hyperlipidemia/hypertension/diabetes mellitus Complicates care, management, recovery and prognosis. Continue home medications as indicated. This note was generated with [employer] dictation software. It may contain incorrect words, spelling, and punctuation that were not noted in checking the note before signing. Subjective Subjective The patient was seen and examined at the bedside this morning. Events from the last 24 hours have been reviewed. The patient is currently afebrile, hemodynamically stable and maintaining appropriate oxygen saturations on 3 L/min via nasal cannula. Upper endoscopy completed yesterday revealed normal esophagus, stomach and duodenum. The patient did receive 2 units of packed red blood cells yesterday. Hemoglobin is improved this morning of 9.1 g/dL. Objective Data Objective Data The patient's most recent lab work, culture data and imaging studies have all been personally reviewed. Surface echocardiogram demonstrated an ejection fraction of 40% and stage I diastolic dysfunction. Pulmonary artery systolic pressure was estimated to be 36 mmHg. Mild to moderate aortic stenosis was noted. Stool for occult blood was negative. Strep and urine Legionella ant igens were negative. Respiratory viral panel was negative. Rapid coronavirus antigen testing was negative. Vital Signs: Vital Signs Temp Pulse Resp BP Pulse Ox 98.4 F 86 18 152/77 H 100 08/17/21 10:24 08/17/21 10:24 08/17/21 10:24 08/17/21 10:24 08/17/21 10:24 Oxygen Flow Rate (L/min) 3 Oxygen Delivery Method Nasal Cannula Weight: 78.653 kg Body Mass Index (BMI) 26.4 Intake & Output: Intake and Output for Last 24 Hours 08/15/21 08/16/21 08/17/21 23:59 23:59 23:59 Intake Total 765 / 765 985 / 985 360 / 360 Output Total 1999 Balance -1235 / -1235 955 / 955 360 / 360 Lab / Micro Data Result Diagrams: 08/18/21 03:10 08/18/21 07:10 Labs: Laboratory Results - last 24 hr 08/16/21 06:56: Crossmatch See Detail 08/16/21 16:50: POC Glucose 99 08/16/21 20:13: Hgb 8.6 L, Hct 26.8 L 08/16/21 20:21: POC Glucose 140 H 08/17/21 05:44: WBC 10.0, RBC 3.20 L, Hgb 9.1 L, Hct 29.1 L, MCV 90.9, MCH 28.4, MCHC 31.3 L, RDW Std Deviation 57.4 H, RDW Coeff of Janel 17.7 H, Plt Count 214, MPV 10.5, Immature Gran % (Auto) 0.700, Neut % (Auto) 80.6 H, Lymph % (Auto) 5.0 L, [place] % (Auto) 11.9 H, Eos % (Auto) 1.3, Baso % (Auto) 0.5, Absolute Neuts (auto) 8.0 H, Absolute Lymphs (auto) 0.50 L, Nucleated RBC % 0 08/17/21 05:44: Sodium 135 L, Potassium 4.5, Chloride 98, Carbon Dioxide 28.0, Anion Gap 9, BUN 52 H, Creatinine 5.18 H, Estim Creat Clear Calc 11.37, Est GFR (MDRD) Af Amer 14 L, Est GFR (MDRD) Non-Af 12 L, BUN/Creatinine Ratio 10.0, Glucose 64 L, Calcium 8.2 L 08/17/21 06:06: POC Glucose 70 08/17/21 06:58: POC Glucose 92 Micro: Microbiology 08/16/21 05:45 Urine, Clean Catch Urine Culture - Final Mixed Gram Positive Organisms 08/15/21 07:25 Blood Culture (Wb) - Left Hand Blood Culture - Preliminary No growth in 48 hours. 08/15/21 07:15 Blood Culture (Wb) - Anticubital Right Blood Culture - Preliminary No growth in 48 hours. 08/16/21 10:15 Stool Stool Occult Blood (LEVI) - Final 08/16/21 05:45 Urine, Clean Catch Legionella Antigen - Final 08/16/21 05:45 Urine, Clean Catch Streptococcus pneumoniae Antigen (M - Final 08/15/21 13:28 Mucosa - Nose Respiratory Panel (PCR) - Final 08/15/21 07:07 Interface Orders SARS-CoV-2 Antigen (Rapid) - Final Physical Exam Const alert and no apparent distress General Appearance: cooperative HEENT normocephalic and head/scalp atraumatic Eyes PERRL and EOMs intact bilaterally Neck supple General: trachea midline Chest inspection of chest normal Resp Effort and Inspection: able to speak in complete sentences Auscultation: diminished lung sounds; Negative for rales, rhonchi or wheezes Cardio regular rate and regular rhythm GI normal to inspection, nondistended, normoactive bowel sounds Extremity General Extremity: edema; Negative for clubbing Skin no rashes or lesions noted Neuro moves all extremities and no focal motor deficits Psych Mood & Affect: anxious Charges/Coding Visit Charges Inpatient E&M: 52601 Subs Hosp L2
--- NOTE | 2021-08-17 12:27 | DIALYSIS ---
Hemodialysis tx completed x 3.25 hours without complications. Pt tolerated tx well, fluid removed 3,000ml using crit-line monitor. Vitals stable throughout tx. Verbal report given to AILIN Wilson post tx.
[2021-08-17] MEDS: BRIMONIDINE 0.2% 5ML BOTTLE 1 DRP LEFT EYE ×2 (12:33→21:27)
[2021-08-17] MEDS: Isosorbide Mononitrate 30 MG Tablet PO (12:35)
[2021-08-17] MEDS: Metoprolol(XL)Succ 25 MG Tablet 12.5 MG PO (12:35)
[2021-08-17] MEDS: Senna/Docusate Sodium 1 Tablet 2 TABLET PO ×2 (12:35→21:35)
[2021-08-17] MEDS: Timolol 0.5% 5ML OPTH.BTL 1 DRP LEFT EYE (12:43)
[2021-08-17] MEDS: Ceftriaxone 1 GM/50 mL Premix Q24 IV (12:46)
--- NOTE | 2021-08-17 16:56 | PCM.PN.REN ---
Subjective Subjective no new complaints Objective Data Objective Data Vital Signs: Vital Signs Temp Pulse Resp BP Pulse Ox 98.9 F 88 18 115/56 L 95 08/17/21 16:45 08/17/21 16:45 08/17/21 16:45 08/17/21 16:45 08/17/21 16:45 Oxygen Flow Rate (L/min) 3 Oxygen Delivery Method Room Air Weight: 78.653 kg Body Mass Index (BMI) 26.4 Intake & Output: Intake and Output for Last 24 Hours 08/15/21 08/16/21 08/17/21 23:59 23:59 23:59 Intake Total 765 / 765 985 / 985 1255 / 1255 Output Total 1999 Balance -1235 / -1235 955 / 955 1255 / 1255 Lab / Micro Data Result Diagrams: 08/17/21 05:44 08/17/21 05:44 Labs: Laboratory Results - last 24 hr 08/16/21 06:56: Crossmatch See Detail 08/16/21 16:50: POC Glucose 99 08/16/21 20:13: Hgb 8.6 L, Hct 26.8 L 08/16/21 20:21: POC Glucose 140 H 08/17/21 05:44: WBC 10.0, RBC 3.20 L, Hgb 9.1 L, Hct 29.1 L, MCV 90.9, MCH 28.4, MCHC 31.3 L, RDW Std Deviation 57.4 H, RDW Coeff of Janel 17.7 H, Plt Count 214, MPV 10.5, Immature Gran % (Auto) 0.700, Neut % (Auto) 80.6 H, Lymph % (Auto) 5.0 L, [place] % (Auto) 11.9 H, Eos % (Auto) 1.3, Baso % (Auto) 0.5, Absolute Neuts (auto) 8.0 H, Absolute Lymphs (auto) 0.50 L, Nucleated RBC % 0 08/17/21 05:44: Sodium 135 L, Potassium 4.5, Chloride 98, Carbon Dioxide 28.0, Anion Gap 9, BUN 52 H, Creatinine 5.18 H, Estim Creat Clear Calc 11.37, Est GFR (MDRD) Af Amer 14 L, Est GFR (MDRD) Non-Af 12 L, BUN/Creatinine Ratio 10.0, Glucose 64 L, Calcium 8.2 L 08/17/21 06:06: POC Glucose 70 08/17/21 06:58: POC Glucose 92 Micro: Microbiology 08/16/21 05:45 Urine, Clean Catch Urine Culture - Final Mixed Gram Positive Organisms 08/15/21 07:25 Blood Culture (Wb) - Left Hand Blood Culture - Preliminary No growth in 48 hours. 08/15/21 07:15 Blood Culture (Wb) - Anticubital Right Blood Culture - Preliminary No growth in 48 hours. 08/16/21 10:15 Stool Stool Occult Blood (LEVI) - Final 08/16/21 05:45 Urine, Clean Catch Legionella Antigen - Final 08/16/21 05:45 Urine, Clean Catch Streptococcus pneumoniae Antigen (M - Final 08/15/21 13:28 Mucosa - Nose Respiratory Panel (PCR) - Final 08/15/21 07:07 Interface Orders SARS-CoV-2 Antigen (Rapid) - Final Physical Exam Narrative Alert awake oriented x 3 no obvious distress no pallor no icterus no JVD s1s2 no murmurs lungs b/l rales abdomen soft no organomegaly no edema no cyanosis Assessment & Plan Assessment/Plan (1) Chronic kidney disease, stage V requiring chronic dialysis: PLAN: ESRD. HD today. seen on HD. cardiology note reviewed.
[2021-08-17 17:03] LABS: Bedside Glucose 121 mg/dL (70-110)
[2021-08-17 17:03] LABS: Bedside Glucose 237 mg/dL (70-110)
--- NOTE | 2021-08-17 18:53 | NURSING ---
All charting by Carrington Corado RN reviewed by this RN
[2021-08-17] MEDS: Bisacodyl 5 MG Tablet 20 MG PO (19:04)
--- NOTE | 2021-08-17 19:30 | NURSING ---
Received report from sandor PARISI that Dr. Flores wanted patient's insulin pump removed overnight. Patient's insulin pump removed by Bob PARISI.
[2021-08-17] MEDS: Polyethylene Glycol 3350 BOWEL PREP PO (21:34)
[2021-08-17] MEDS: Latanoprost 0.005% 1 Bottle 1 DRP LEFT EYE (21:36)
[2021-08-17] MEDS: Atorvastatin Calcium 80 MG Tablet PO (21:36)
--- NOTE | 2021-08-17 22:23 | PN.GI_ITS ---
Subjective Subjective Patient underwent upper endoscopy yesterday for the evaluation of his acute blood loss anemia. His upper endoscopy did not reveal any signs of acute or chronic GI blood loss. He at this time is drinking the prep for colonoscopy tomorrow. He did undergo hemodialysis today. Objective Data Objective Data Vital Signs: Vital Signs Temp Pulse Resp BP Pulse Ox 98.3 F 84 16 115/58 L 97 08/17/21 21:04 08/17/21 21:04 08/17/21 21:04 08/17/21 21:04 08/17/21 21:04 Oxygen Flow Rate (L/min) 2 Oxygen Delivery Method Nasal Cannula Weight: 173 lb 6.4 oz Body Mass Index (BMI) 26.4 Intake & Output: Intake and Output for Last 24 Hours 08/15/21 08/16/21 08/17/21 23:59 23:59 23:59 Intake Total 765 / 765 985 / 985 1855 / 1855 Output Total 1999 / 1999 Balance -1235 / -1235 955 / 955 1855 / 1855 Lab / Micro Data Result Diagrams: 08/17/21 05:44 08/17/21 05:44 Labs: Laboratory Results - last 24 hr 08/17/21 05:44: WBC 10.0, RBC 3.20 L, Hgb 9.1 L, Hct 29.1 L, MCV 90.9, MCH 28.4, MCHC 31.3 L, RDW Std Deviation 57.4 H, RDW Coeff of Janel 17.7 H, Plt Count 214, MPV 10.5, Immature Gran % (Auto) 0.700, Neut % (Auto) 80.6 H, Lymph % (Auto) 5.0 L, [place] % (Auto) 11.9 H, Eos % (Auto) 1.3, Baso % (Auto) 0.5, Absolute Neuts (auto) 8.0 H, Absolute Lymphs (auto) 0.50 L, Nucleated RBC % 0 08/17/21 05:44: Sodium 135 L, Potassium 4.5, Chloride 98, Carbon Dioxide 28.0, Anion Gap 9, BUN 52 H, Creatinine 5.18 H, Estim Creat Clear Calc 11.37, Est GFR (MDRD) Af Amer 14 L, Est GFR (MDRD) Non-Af 12 L, BUN/Creatinine Ratio 10.0, Glucose 64 L, Calcium 8.2 L 08/17/21 06:06: POC Glucose 70 08/17/21 06:58: POC Glucose 92 08/17/21 11:35: POC Glucose 121 H 08/17/21 16:54: POC Glucose 237 H Micro: Microbiology 08/16/21 05:45 Urine, Clean Catch Urine Culture - Final Mixed Gram Positive Organisms 08/15/21 07:25 Blood Culture (Wb) - Left Hand Blood Culture - Preliminary No growth in 48 hours. 08/15/21 07:15 Blood Culture (Wb) - Anticubital Right Blood Culture - Preliminary No growth in 48 hours. 08/16/21 10:15 Stool Stool Occult Blood (LEVI) - Final 08/16/21 05:45 Urine, Clean Catch Legionella Antigen - Final 08/16/21 05:45 Urine, Clean Catch Streptococcus pneumoniae Antigen (M - Final 08/15/21 13:28 Mucosa - Nose Respiratory Panel (PCR) - Final 08/15/21 07:07 Interface Orders SARS-CoV-2 Antigen (Rapid) - Final Physical Exam Const alert General Appearance: cooperative Orientation / Consciousness: oriented to person HEENT hearing grossly normal bilaterally Head and Scalp: normal to inspection Face and Sinus: face symmetric Nose: external nose normal Mouth: oral and palatal mucosa normal Eyes conjunctivae normal General Eye: normal appearance of both eyes Neck full ROM General: normal visual inspection Lymph Lymphatic: no lymphadenopathy noted Chest inspection of chest normal and palpation of chest normal Chest: symmetrical chest wall rise Resp normal respiratory effort Effort and Inspection: able to speak in complete sentences Cardio regular rate GI non-distended Percussion: normal to percussion Rectal Exam: deferred Neuro Speech: speech normal Gait (Neuro): normal gait Assessment & Plan Assessment/Plan (1) Anemia: PLAN: He will undergo colonoscopy tomorrow. Hopefully after she will be able to restart his antiplatelet therapy. Be that he did recently have non-ST segment elevation AK, his history of hemodialysis, history of CAD and PVD, he is high risk for a myocardial event. Charges/Coding Visit Charges Inpatient E&M: 51499 Subs Hosp L2
[2021-08-17 23:26] LABS: Bedside Glucose 366 mg/dL (70-110)
[2021-08-18] VITALS (18 sets, daily range): BP systolic 106–141; BP diastolic 53–77; PULSE 80–109; RESP 18–26; TEMP 35.9–36.9; O2SAT 95–100; BMI 26.4
[2021-08-18 01:51] LABS: Bedside Glucose > 500 mg/dL (70-110)
[2021-08-18] MEDS: Insulin Lispro 100 UNIT/ML INSULN.PEN 15 UNIT SC (02:22)
[2021-08-18] MEDS: Insulin NPH Human 100 UNITS/ML PEN 30 UNITS SC (02:23)
[2021-08-18] MEDS: LORazepam 0.5 MG Tablet PO (03:10)
[2021-08-18 03:40] LABS: Absolute Lymphocyte Count 0.41 X10^3/uL (0.83-4.51); Absolute Neutrophil Count 8.5 X10^3/uL (2.0-7.7); Basophil# 0.04 X10^3/uL; Basophil% 0.4 % (0-1); Glucose 623 mg/dL (74-106); Hematocrit 32.7 % (40-54); Hemoglobin 9.9 g/dL (13.0-16.5); Lymphocyte # 0.41 X10^3/ul (0.83-4.51); Lymphocyte % 4.2 % (19-41); Mean Corp Hgb Conc 30.3 g/dL (32-36); Mean Corpuscular Hgb 28.4 pg (27.0-32.0); Mean Corpuscular Volume 93.7 fL (80-94); Mean Platelet Vol. 10.8 fl (6.2-12.0); Monocyte# 0.73 X10^3/uL; Monocyte% 7.5 % (0-10); NRBC Flagged by Analyzer 0 % (0-5); Neutrophil # 8.45 X10^3/uL (2.7-7.7); Neutrophil % 86.4 % (47-70); POSITIVE DIFFERENTIAL YES; Platelet Count 214 K/mm3 (150-450); RBC Distribution Width CV 18.2 % (11.6-14.6); RBC Distribution Width SD 60.9 fl (35.1-43.9); Red Blood Count 3.49 M/mm3 (4.6-6.2); White Blood Count 9.8 K/mm3 (4.4-11.0)
[2021-08-18] MEDS: Insulin Lispro 100 UNIT/ML INSULN.PEN 20 UNIT SC (04:02)
[2021-08-18 04:09] LABS: Differential Indicated SCAN CRITERIA MET
[2021-08-18 04:36] LABS: Bedside Glucose > 500 mg/dL (70-110)
[2021-08-18 04:45] LABS: Blood Gas Specimen Type VEN; O2 Delivery Device Cannula; VBG BASE EXCESS -3 mmol/L (-1.0-3.5); VBG Bicarbonate 22 mmol/L (22-26); VBG PO2 105 mmHg (25-40); VBG SO2 98 % (50-70); VBG TCO2 23 mmol/L (23-33); VBG pCO2 34.4 mmHg (41-51); VBG pH 7.41 (7.32-7.42)
[2021-08-18 04:55] LABS: Anion Gap 17 (5-15); BUN 33 mg/dL (7-18); BUN/Creat Ratio 7.9 RATIO (10-20); Calcium,Total 8.1 mg/dL (8.5-10.1); Chloride 89 mmol/L (98-107); Creatinine, Serum 4.19 mg/dL (0.70-1.30); EST Glomerular Filtration Rate 15 mL/min (>60); Est Glom Filt Rate - Afr Amer 18 mL/min (>60); Estimated Creatinine Clearance 14.06 ml/min; Potassium 4.4 mmol/L (3.5-5.1); Sodium Level 126 mmol/L (136-145)
--- NOTE | 2021-08-18 05:03 | PN.HOSP_ITS ---
Hospitalist Note He was called earlier in the evening secondary to hyperglycemia and 30 units of NPH as well as 15 units of log were given at that time. The patient is evidently undergoing bowel prep for a colonoscopy today and the prep is mixed with Gatorade. The patient is a type I diabetic at baseline and it appears that his insulin pump was discontinued. It is unclear why this occurred at this time. His repeat blood sugar was obtained 30 minutes after the NPH and Humalog were given and his blood sugar remained elevated greater than 500 a stat BMP, V BG, and acetone were drawn at that time. His BMP shows hyponatremia that is likely consistent with pseudohyponatremia given his blood sugar elevation, bicarbonate of 20 which is remarkably reduced for him as his baseline appears to be close to 30 and an elevated anion gap at 17. VBG did show a normal pH at this time but there was some time gap between when the VBG was done and the actual BMP was drawn. The normal pH and the VBG may be reflective of improving DKA. The DKA is mild but given his needing to remain n.p.o. and his markedly elevated blood sugars as his sugars remain still above 500 he was transferred to the ICU and placed on an insulin drip with DKA protocol. I did however for go the fluid boluses given his CKD. He has end-stage renal disease and is on dialysis at baseline. We will run IV fluids at 75 cc/h x 8 hours and then transition him off the insulin drip as per protocol. I do not anticipate this will take long as his DKA is mild.
[2021-08-18 05:34] LABS: Magnesium 2.1 mg/dL (1.6-2.6)
--- NOTE | 2021-08-18 05:51 | NURSING ---
All charting by Carrington Conklin RN reviewed by this RN
[2021-08-18 07:00] LABS: Bedside Glucose > 500 mg/dL (70-110)
[2021-08-18 07:00] LABS: Bedside Glucose > 500 mg/dL (70-110)
[2021-08-18 08:21] LABS: Anion Gap 11 (5-15); BUN 35 mg/dL (7-18); BUN/Creat Ratio 7.8 RATIO (10-20); Calcium,Total 7.9 mg/dL (8.5-10.1); Chloride 94 mmol/L (98-107); Creatinine, Serum 4.48 mg/dL (0.70-1.30); EST Glomerular Filtration Rate 14 mL/min (>60); Est Glom Filt Rate - Afr Amer 16 mL/min (>60); Estimated Creatinine Clearance 13.15 ml/min; Glucose 382 mg/dL (74-106); Sodium Level 131 mmol/L (136-145)
--- NOTE | 2021-08-18 09:30 | COLBX_PTH ---
PATIENT: DIVYA HUSAIN LOC: [facility] U#:[id number] AGE/SX: 76/M ROOM: [facility] RE08/15/[address]: Dr. Lisa Perez MD : 1945 BED: 1 DIS: 08/19/2021 SPEC #: [id number] RECD: 08/18/21 12:28 STATUS: DRAGAN RERachna #: [id number] JONO: 08/18/21 09:[address]: Sebastian Flores DEPT: SURGICAL PATHOLOGY RECD BY: Julia Rivero ENTERED: 08/18/21 13:26 SP TYPE: COLON BX OTHR DR: MD Dr. Sb Sykes, DO Dr. Dev Bolanos, DO MD Dr. Lisa Fong MD Christina Muller, WELLNESS ASSISTANT-C Tissues: A - Transverse colon B - COLON BIOPSY C - Cecum, NOS Procedures: Surgery Specimen Level IV Comments: @ Ordering doctor for SUIV edited from to @ by CHESTER at 08/18/21 1525 @ Submitting doctor edited from to @ by RGOOD at 08/18/21 1525 HEADER OPERATION: Colonoscopy (MAC) PRE-OP DIAGNOSIS: Anemia TISSUE SUBMITTED: A ? Transverse polyp biopsy, B ? Hepatic flexure polyp, C ? Cecum polyps (2) MICROSCOPIC DIAGNOSIS A. Transverse colon polyp, biopsy: Tubular adenoma. B. Hepatic flexure polyp, biopsy: Fragments of hyperplastic polyp. C. Cecum polyp x2, biopsy: Fragments of tubular adenoma. SJ:kimberly 08/19/2021 MICROSCOPIC DESCRIPTION Slides are reviewed. GROSS DESCRIPTION A - Received in fixative is one container labeled with the patient's name and designated transverse polyp biopsy. The specimen consists of one irregular fragment of light camacho soft tissue that measures 0.3 x 0.3 x 0.1 cm. The specimen is totally submitted in one cassette. B - Received in fixative is one container labeled with the patient's name and designated hepatic flexure polyp. The specimen consists of multiple irregular fragments of light camacho soft tissue that in aggregate measure 1 x 1 x 0.2 cm. The specimen is totally submitted in one cassette. C - Received in fixative is one container labeled with the patient's name and designated cecum polyp biopsy x2. The specimen consists of multiple irregular fragments of light camacho soft tissue that in aggregate measure 1 x 0.5 x 0.2 cm. The specimen is totally submitted in one cassette. / PETER:kimberly 08/18/21 TC:1 CPT: 49031 x3
[2021-08-18 09:41] LABS: Bedside Glucose 232 mg/dL (70-110)
[2021-08-18 10:36] LABS: Bedside Glucose 327 mg/dL (70-110)
--- NOTE | 2021-08-18 11:11 | OP.CCLET_ITS ---
07/13/2022 Sb Bolanos Re : Colonoscopy procedure for Hector Massey Dear Dr. Bolanos This procedure was performed on August. My impressions and recommendations are as follows: Impressions : - Preparation of the colon was poor. - Decreased sphincter tone, thrombosed external hemorrhoids and thrombosed internal hemorrhoids found on digital rectal exam. - Moderate diverticulosis in the sigmoid colon, in the descending colon and at the splenic flexure. - Four 13 mm polyps in the transverse colon and in the cecum, removed with a hot snare. Resected and retrieved. - One 5 mm polyp in the transverse colon, removed with a jumbo cold forceps. Resected and retrieved. Recommendations : - Repeat colonoscopy in 5 years for surveillance. - Return to GI office in 1 week. - Continue present medications. My findings are described in the full procedure note, which is enclosed. If I can be of further assistance, please feel free to contact me at . Sincerely, Sebastian Flores, 08/18/2021 11:10:42 AM This report has been signed electronically.
--- NOTE | 2021-08-18 11:11 | OP.COLON_ITS ---
Patient Name: Hector Massey Procedure Date: 08/18/2021 10:13 AM Date of : 1945 Age: 76 Procedure: Colonoscopy Indications: Iron deficiency anemia Providers: Sebastian Flores DO Medicines: Monitored Anesthesia Care Patient Profile: This is a 76 year old male. Refer to note in patient chart for documentation of history and physical. Last Colonoscopy: more than 10 years ago. Complications: No immediate complications. Procedure: Pre-Anesthesia Assessment: - Prior to the procedure, a History and Physical was performed, and patient medications and allergies were reviewed. The patient is competent. The risks and benefits of the procedure and the sedation options and risks were discussed with the patient. All questions were answered and informed consent was obtained. Patient identification and proposed procedure were verified in the pre-procedure area. Mental Status Examination: alert and oriented. Airway Examination: normal oropharyngeal airway and neck mobility. Respiratory Examination: clear to auscultation. CV Examination: normal. Prophylactic Antibiotics: The patient does not require prophylactic antibiotics. Prior Anticoagulants: The patient has taken no previous anticoagulant or antiplatelet agents. ASA Grade Assessment: II - A patient with mild systemic disease. After reviewing the risks and benefits, the patient was deemed in satisfactory condition to undergo the procedure. The anesthesia plan was to use moderate sedation / analgesia (conscious sedation). Immediately prior to administration of medications, the patient was re-assessed for adequacy to receive sedatives. The heart rate, respiratory rate, oxygen saturations, blood pressure, adequacy of pulmonary ventilation, and response to care were monitored throughout the procedure. The physical status of the patient was re-assessed after the procedure. After I obtained informed consent, the scope was passed under direct vision. Throughout the procedure, the patient's blood pressure, pulse, and oxygen saturations were monitored continuously. The Colonoscope was introduced through the anus and advanced to the cecum, identified by appendiceal orifice and ileocecal valve. The colonoscopy was performed without difficulty. The patient tolerated the procedure well. The quality of the bowel preparation was poor. Moderate Sedation: Moderate (conscious) sedation was administered by the endoscopy nurse and supervised by the endoscopist. The following parameters were monitored: oxygen saturation, heart rate, blood pressure, and response to care. Scope In: 10:30:21 AM Scope Withdrawal Time 0 hours 16 minutes 13 seconds Scope Out: 11:04:28 AM Total Procedure Duration Time 0 hours 34 minutes 7 seconds Findings: The digital rectal exam findings include decreased sphincter tone, thrombosed external hemorrhoids and thrombosed internal hemorrhoids. Multiple small and large-mouthed diverticula were found in the sigmoid colon, descending colon and splenic flexure. Four sessile polyps were found in the transverse colon and cecum. The polyps were 13 mm in size. These polyps were removed with a hot snare. Resection and retrieval were complete. Verification of patient identification for the specimen was done. Estimated blood loss was minimal. A 5 mm polyp was found in the transverse colon. The polyp was sessile. The polyp was removed with a jumbo cold forceps. Resection and retrieval were complete. Verification of patient identification for the specimen was done. Estimated blood loss was minimal. Impression: - Preparation of the colon was poor. - Decreased sphincter tone, thrombosed external hemorrhoids and thrombosed internal hemorrhoids found on digital rectal exam. - Moderate diverticulosis in the sigmoid colon, in the descending colon and at the splenic flexure. - Four 13 mm polyps in the transverse colon and in the cecum, removed with a hot snare. Resected and retrieved. - One 5 mm polyp in the transverse colon, removed with a jumbo cold forceps. Resected and retrieved. Recommendation: - Repeat colonoscopy in 5 years for surveillance. - Return to GI office in 1 week. - Continue present medications. Procedure Code(s): --- Professional --- 67284, LT, Colonoscopy, flexible; with removal of tumor(s), polyp(s), or other lesion(s) by snare technique 15938, 59, Colonoscopy, flexible; with biopsy, single or multiple CPT copyright 2017 [employer]. All rights reserved. The codes documented in this report are preliminary and upon gambling dealer review may be revised to meet current compliance requirements. Sebastian Flores DO 08/18/2021 11:10:42 AM This report has been signed electronically. Number of Addenda: 1 Note Initiated On: 08/18/2021 10:13 AM Addendum Number: 1 Addendum Date: 07/13/2022 4:25:32 PM MAC was used instead of moderate sedation for this patient. Sebastian Flores DO 07/13/2022 4:25:37 PM This report has been signed electronically.
[2021-08-18] MEDS: Ceftriaxone 1 GM/50 mL Premix Q24 IV (12:19)
[2021-08-18] MEDS: BRIMONIDINE 0.2% 5ML BOTTLE 1 DRP LEFT EYE ×2 (12:28→20:56)
[2021-08-18] MEDS: Timolol 0.5% 5ML OPTH.BTL 1 DRP LEFT EYE (12:29)
[2021-08-18] MEDS: Senna/Docusate Sodium 1 Tablet 2 TABLET PO ×2 (12:31→20:55)
[2021-08-18] MEDS: Metoprolol(XL)Succ 25 MG Tablet 12.5 MG PO (12:31)
[2021-08-18] MEDS: Isosorbide Mononitrate 30 MG Tablet PO (12:31)
[2021-08-18 12:51] LABS: Bedside Glucose 175 mg/dL (70-110)
[2021-08-18 13:03] LABS: Anion Gap 12 (5-15); BUN 36 mg/dL (7-18); BUN/Creat Ratio 8.1 RATIO (10-20); Calcium,Total 7.8 mg/dL (8.5-10.1); Chloride 97 mmol/L (98-107); Creatinine, Serum 4.47 mg/dL (0.70-1.30); EST Glomerular Filtration Rate 14 mL/min (>60); Est Glom Filt Rate - Afr Amer 17 mL/min (>60); Estimated Creatinine Clearance 13.18 ml/min; Glucose 172 mg/dL (74-106); Sodium Level 131 mmol/L (136-145)
--- NOTE | 2021-08-18 14:28 | PN.HOSP_ITS ---
Subjective Subjective Patient seen and examined. He had elevated blood glucose with anion gap of 20, so he was transferred to the ICU for insulin drip. Blood sugars however trended down and anion gap closed so he was transferred back to the PCU. Does appear that his insulin pump was shut off yesterday in anticipation of the scope today. He did have colonoscopy this morning and states he was told he had 1 polyp removed but was otherwise normal. He had no other complaints and review of systems otherwise negative. He has otherwise remained hemodynamically stable. Objective Data Objective Data Vital Signs: Vital Signs Temp Pulse Resp BP Pulse Ox 97.9 F 98 18 122/62 H 99 08/18/21 12:39 08/18/21 12:39 08/18/21 12:39 08/18/21 12:39 08/18/21 12:39 Oxygen Flow Rate (L/min) 3 Oxygen Delivery Method Nasal Cannula Weight: 173 lb 6.4 oz Body Mass Index (BMI) 26.4 Intake & Output: Intake and Output for Last 24 Hours 08/16/21 08/17/21 08/18/21 23:59 23:59 23:59 Intake Total 985 / 985 1965 / 3865 2315 / 2315 Output Total 30 / 30 Balance 955 / 955 1965 / 3865 2315 / 2315 Lab / Micro Data Result Diagrams: 08/18/21 03:10 08/18/21 12:15 Labs: Laboratory Results - last 24 hr 08/17/21 11:35: POC Glucose 121 H 08/17/21 16:54: POC Glucose 237 H 08/17/21 23:20: POC Glucose 366 H 08/18/21 01:44: POC Glucose > 500 H* 08/18/21 02:57: POC Glucose > 500 H* 08/18/21 03:02: POC Glucose > 500 H* 08/18/21 03:10: WBC 9.8, RBC 3.49 L, Hgb 9.9 L, Hct 32.7 L, MCV 93.7, MCH 28.4, MCHC 30.3 L, RDW Std Deviation 60.9 H, RDW Coeff of Janel 18.2 H, Plt Count 214, MPV 10.8, Immature Gran % (Auto) 0.500, Neut % (Auto) 86.4 H, Lymph % (Auto) 4.2 L, [place] % (Auto) 7.5, Eos % (Auto) 1.0, Baso % (Auto) 0.4, Absolute Neuts (auto) 8.5 H, Absolute Lymphs (auto) 0.41 L, Nucleated RBC % 0 08/18/21 03:10: Sodium 126 L, Potassium 4.4, Chloride 89 L, Carbon Dioxide 20.0 L, Anion Gap 17 H, BUN 33 H, Creatinine 4.19 H, Estim Creat Clear Calc 14.06, Est GFR (MDRD) Af Amer 18 L, Est GFR (MDRD) Non-Af 15 L, BUN/Creatinine Ratio 7.9 L, Glucose TNP, Calcium 8.1 L 08/18/21 03:10: Glucose 623 H* 08/18/21 04:28: Acetone Level MODERATE H 08/18/21 04:28: Magnesium 2.1 08/18/21 04:32: POC Glucose > 500 H* 08/18/21 07:06: POC Glucose 327 H 08/18/21 07:10: Sodium 131 L, Potassium 4.0, Chloride 94 L, Carbon Dioxide 26.0, Anion Gap 11, BUN 35 H, Creatinine 4.48 H, Estim Creat Clear Calc 13.15, Est GFR (MDRD) Af Amer 16 L, Est GFR (MDRD) Non-Af 14 L, BUN/Creatinine Ratio 7.8 L, Glucose 382 H, Calcium 7.9 L 08/18/21 09:25: POC Glucose 232 H 08/18/21 12:15: Sodium 131 L, Potassium 4.0, Chloride 97 L, Carbon Dioxide 22.0, Anion Gap 12, BUN 36 H, Creatinine 4.47 H, Estim Creat Clear Calc 13.18, Est GFR (MDRD) Af Amer 17 L, Est GFR (MDRD) Non-Af 14 L, BUN/Creatinine Ratio 8.1 L, Glucose 172 H, Calcium 7.8 L 08/18/21 12:16: POC Glucose 175 H Micro: Microbiology 08/16/21 05:45 Urine, Clean Catch Urine Culture - Final Mixed Gram Positive Organisms 08/15/21 07:25 Blood Culture (Wb) - Left Hand Blood Culture - Preliminary No growth in 48 hours. 08/15/21 07:15 Blood Culture (Wb) - Anticubital Right Blood Culture - Preliminary No growth in 48 hours. 08/16/21 10:15 Stool Stool Occult Blood (LEVI) - Final 08/16/21 05:45 Urine, Clean Catch Legionella Antigen - Final 08/16/21 05:45 Urine, Clean Catch Streptococcus pneumoniae Antigen (M - Final 08/15/21 13:28 Mucosa - Nose Respiratory Panel (PCR) - Final 08/15/21 07:07 Interface Orders SARS-CoV-2 Antigen (Rapid) - Final ABG Data ABG results: ABG 08/18/21 04:38 Specimen Type NEHA VBG pH 7.41 VBG pO2 105 H VBG HCO3 22 VBG Total CO2 23 VBG O2 Sat (Calc) 98 H VBG Base Excess -3 L POC Mix VBG pCO2 Pt Tmp 34.4 L O2 Delivery Device Cannula Liter Flow 2.0 Physical Exam Const alert, oriented x3 and no apparent distress Exam Limitations: no limitations HEENT normocephalic, head/scalp atraumatic, hearing grossly normal bilaterally and moist oral mucous membranes Head and Scalp: normocephalic Eyes PERRL, EOMs intact bilaterally and conjunctivae normal Neck no lymphadenopathy Resp normal respiratory effort, no retractions, no use of accessory muscles and clear to auscultation bilaterally Resp Narrative: on 3L of oxygen by nasal canula Cardio regular rate, regular rhythm, S1 normal heart sound, S2 normal heart sound and no murmurs GI normal to inspection, nondistended, normoactive bowel sounds, soft to palpation, non-tender and non-distended Extremity normal to inspection, full ROM and no clubbing, cyanosis or edema Extremity Narrative: AV fistula in LUE with good thrill. Peripheral Pulses: Yes pulses 2+ throughout Skin no rashes or lesions noted Neuro oriented x3, CN's II-XII intact bilaterally and moves all extremities Sensorium / Orientation: awake and alert Psych affect normal Assessment & Plan Assessment/Plan (1) Acute on chronic respiratory failure with hypoxemia: (2) Non-STEMI (non-ST elevated myocardial infarction): PLAN: #Acute on chronic hypoxic respiratory failure due to bilateral pneumonia and nonstemi * still on 3L of oxygen by nasal canula. * on IV ceftriaxone and azithromcyin. * troponins trended up from 52 to a peak of 3540. * CTA of the chest was negative for PE and showed bilateral pneumonia and bilateral pleural effusions * titrate oxygen to maintain sats >90%. * breathing treatment wtih bronchodilators * pulmonology on board * #Severe sepsis due to pneumonia * on IV ceftriaxone and azithromycin. blood and urine cultures pending. * urine culture grew mixed gram positive organisms. Blood cultures negative. #ESRD * on HD MWF * nephrology on board. * CT chest showed bilateral pleural effusions which may be related to fluid overload. * * #Acute on chronic heart failure with reduced ejection fraction * BNP was 795. * shortness of breath has improved markedly with dialysis. * #Nonstemi * EKG showed no acute ST changes * troponin trended up from 52 to >600 * cardiology on board; * 2D echo: EF of 40% and stage 1 diastolic dysfunction, and mild to moderate aortic stenosis, with pulmonary artery systolic pressure. * per discussion with cardiology today, to follow on outpatient basis for now. * #Acute on chronic anemia * hb is up to 9.9 today * s/p transfusion of 2 units of PRBCs * aspirin and plavix on hold. * GI on board. had EGD which was negative; colonoscopy showed thrombosed external and internal hemorrhoids with moderate diverticulosis in sigmoid and ascending colon as well as splenic flexure; 4 13mm polyps in transverse colon and cecum. One 5mm polyp in transverse colon. * on IV pantoprazole 40mg bid. * #type 2 diabetes mellitus * went into mild DKA overnight as insulin pump was turned off and patient drank gatorade * anion gap has closed and blood sugar has trended down. * resume insulin pump. ISS. Accuchecks ACHS. #CAD s/p stents * had 2 stents placed at [facility] in 2017 * aspirin and plavix on hold due to acute on chronic anemia. * #Paroxysmal afib: on metoprolol DVT prophylaxis: SCDs. no anticoagulation o/a of acute on chronic anemia
--- NOTE | 2021-08-18 14:54 | PCM.PN.REN ---
Subjective Subjective events noted. was in ICU now back on PCU. sugars better. Objective Data Objective Data Vital Signs: Vital Signs Temp Pulse Resp BP Pulse Ox 97.9 F 98 18 122/62 H 99 08/18/21 12:39 08/18/21 12:39 08/18/21 12:39 08/18/21 12:39 08/18/21 12:39 Oxygen Flow Rate (L/min) 3 Oxygen Delivery Method Nasal Cannula Weight: 78.653 kg Body Mass Index (BMI) 26.4 Intake & Output: Intake and Output for Last 24 Hours 08/16/21 08/17/21 08/18/21 23:59 23:59 23:59 Intake Total 985 / 985 1964 / 3865 2315 / 2315 Output Total Balance 955 / 955 1964 / 3865 231 / 2315 Lab / Micro Data Result Diagrams: 08/18/21 03:10 08/18/21 12:15 Labs: Laboratory Results - last 24 hr 08/17/21 11:35: POC Glucose 121 H 08/17/21 16:54: POC Glucose 237 H 08/17/21 23:20: POC Glucose 366 H 08/18/21 01:44: POC Glucose > 500 H* 08/18/21 02:57: POC Glucose > 500 H* 08/18/21 03:02: POC Glucose > 500 H* 08/18/21 03:10: WBC 9.8, RBC 3.49 L, Hgb 9.9 L, Hct 32.7 L, MCV 93.7, MCH 28.4, MCHC 30.3 L, RDW Std Deviation 60.9 H, RDW Coeff of Janel 18.2 H, Plt Count 214, MPV 10.8, Immature Gran % (Auto) 0.500, Neut % (Auto) 86.4 H, Lymph % (Auto) 4.2 L, [place] % (Auto) 7.5, Eos % (Auto) 1.0, Baso % (Auto) 0.4, Absolute Neuts (auto) 8.5 H, Absolute Lymphs (auto) 0.41 L, Nucleated RBC % 0 08/18/21 03:10: Sodium 126 L, Potassium 4.4, Chloride 89 L, Carbon Dioxide 20.0 L, Anion Gap 17 H, BUN 33 H, Creatinine 4.19 H, Estim Creat Clear Calc 14.06, Est GFR (MDRD) Af Amer 18 L, Est GFR (MDRD) Non-Af 15 L, BUN/Creatinine Ratio 7.9 L, Glucose TNP, Calcium 8.1 L 08/18/21 03:10: Glucose 623 H* 08/18/21 04:28: Acetone Level MODERATE H 08/18/21 04:28: Magnesium 2.1 08/18/21 04:32: POC Glucose > 500 H* 08/18/21 07:06: POC Glucose 327 H 08/18/21 07:10: Sodium 131 L, Potassium 4.0, Chloride 94 L, Carbon Dioxide 26.0, Anion Gap 11, BUN 35 H, Creatinine 4.48 H, Estim Creat Clear Calc 13.15, Est GFR (MDRD) Af Amer 16 L, Est GFR (MDRD) Non-Af 14 L, BUN/Creatinine Ratio 7.8 L, Glucose 382 H, Calcium 7.9 L 08/18/21 09:25: POC Glucose 232 H 08/18/21 12:15: Sodium 131 L, Potassium 4.0, Chloride 97 L, Carbon Dioxide 22.0, Anion Gap 12, BUN 36 H, Creatinine 4.47 H, Estim Creat Clear Calc 13.18, Est GFR (MDRD) Af Amer 17 L, Est GFR (MDRD) Non-Af 14 L, BUN/Creatinine Ratio 8.1 L, Glucose 172 H, Calcium 7.8 L 08/18/21 12:16: POC Glucose 175 H Micro: Microbiology 08/16/21 05:45 Urine, Clean Catch Urine Culture - Final Mixed Gram Positive Organisms 08/15/21 07:25 Blood Culture (Wb) - Left Hand Blood Culture - Preliminary No growth in 48 hours. 08/15/21 07:15 Blood Culture (Wb) - Anticubital Right Blood Culture - Preliminary No growth in 48 hours. 08/16/21 10:15 Stool Stool Occult Blood (LEVI) - Final 08/16/21 05:45 Urine, Clean Catch Legionella Antigen - Final 08/16/21 05:45 Urine, Clean Catch Streptococcus pneumoniae Antigen (M - Final 08/15/21 13:28 Mucosa - Nose Respiratory Panel (PCR) - Final 08/15/21 07:07 Interface Orders SARS-CoV-2 Antigen (Rapid) - Final ABG Data ABG results: ABG 08/18/21 04:38 Specimen Type NEHA VBG pH 7.41 VBG pO2 105 H VBG HCO3 22 VBG Total CO2 23 VBG O2 Sat (Calc) 98 H VBG Base Excess -3 L POC Mix VBG pCO2 Pt Tmp 34.4 L O2 Delivery Device Cannula Liter Flow 2.0 Physical Exam Narrative Alert awake oriented x 3 no obvious distress no pallor no icterus no JVD s1s2 no murmurs lungs b/l rales abdomen soft no organomegaly no edema no cyanosis Assessment & Plan Assessment/Plan (1) Chronic kidney disease, stage V requiring chronic dialysis: PLAN: ESRD. Continue HD as per schedule MWF. feels better. HD tomorrow. cardiology plans for cath tomorrow as per patient.
--- NOTE | 2021-08-18 15:48 | NURSING ---
Pt self administered 3 units through home insulin pump.
[2021-08-18 16:13] LABS: Anion Gap 10 (5-15); BUN 36 mg/dL (7-18); BUN/Creat Ratio 7.8 RATIO (10-20); Calcium,Total 7.7 mg/dL (8.5-10.1); Chloride 94 mmol/L (98-107); EST Glomerular Filtration Rate 13 mL/min (>60); Est Glom Filt Rate - Afr Amer 16 mL/min (>60); Glucose 237 mg/dL (74-106); Potassium 3.8 mmol/L (3.5-5.1); Sodium Level 131 mmol/L (136-145)
[2021-08-18 17:11] LABS: Bedside Glucose 159 mg/dL (70-110)
[2021-08-18] MEDS: Ipratropium/Albuterol Sulfate 3 ML AMPUL.NEB INHALATION (19:10)
[2021-08-18] MEDS: Budesonide Respules 0.5 MG/2 ML AMPUL.NEB. INHALATION (19:10)
[2021-08-18 19:12] LABS: Anion Gap 8 (5-15); BUN 37 mg/dL (7-18); BUN/Creat Ratio 7.8 RATIO (10-20); Calcium,Total 7.7 mg/dL (8.5-10.1); Chloride 97 mmol/L (98-107); Creatinine, Serum 4.75 mg/dL (0.70-1.30); EST Glomerular Filtration Rate 13 mL/min (>60); Est Glom Filt Rate - Afr Amer 15 mL/min (>60); Glucose 167 mg/dL (74-106); Potassium 3.9 mmol/L (3.5-5.1); Sodium Level 133 mmol/L (136-145)
[2021-08-18] MEDS: Atorvastatin Calcium 80 MG Tablet PO (20:55)
[2021-08-18] MEDS: Latanoprost 0.005% 1 Bottle 1 DRP LEFT EYE (20:56)
[2021-08-18] MEDS: MELATONIN 3 MG TABLET PO (23:12)
[2021-08-18 23:36] LABS: Bedside Glucose 179 mg/dL (70-110)
[2021-08-19] VITALS (8 sets, daily range): BP systolic 116–126; BP diastolic 47–59; PULSE 76–82; RESP 16–18; TEMP 36.7; O2SAT 95–97
[2021-08-19 00:03] LABS: Anion Gap 8 (5-15); BUN 39 mg/dL (7-18); BUN/Creat Ratio 7.8 RATIO (10-20); Calcium,Total 7.7 mg/dL (8.5-10.1); Chloride 96 mmol/L (98-107); Creatinine, Serum 4.99 mg/dL (0.70-1.30); EST Glomerular Filtration Rate 12 mL/min (>60); Est Glom Filt Rate - Afr Amer 15 mL/min (>60); Glucose 182 mg/dL (74-106); Potassium 3.8 mmol/L (3.5-5.1); Sodium Level 133 mmol/L (136-145)
[2021-08-19 05:02] LABS: Absolute Lymphocyte Count 0.74 X10^3/uL (0.83-4.51); Absolute Neutrophil Count 4.8 X10^3/uL (2.0-7.7); Basophil# 0.04 X10^3/uL; Basophil% 0.6 % (0-1); Eosinophils% 4.3 % (0-5); Hemoglobin 8.6 g/dL (13.0-16.5); Lymphocyte # 0.74 X10^3/ul (0.83-4.51); Lymphocyte % 10.6 % (19-41); Mean Corp Hgb Conc 31.9 g/dL (32-36); Mean Corpuscular Hgb 28.8 pg (27.0-32.0); Mean Corpuscular Volume 90.3 fL (80-94); Mean Platelet Vol. 9.8 fl (6.2-12.0); Monocyte# 1.03 X10^3/uL; Monocyte% 14.8 % (0-10); NRBC Flagged by Analyzer 0 % (0-5); Neutrophil # 4.81 X10^3/uL (2.7-7.7); Neutrophil % 68.8 % (47-70); Platelet Count 185 K/mm3 (150-450); RBC Distribution Width CV 17.5 % (11.6-14.6); RBC Distribution Width SD 56.5 fl (35.1-43.9); Red Blood Count 2.99 M/mm3 (4.6-6.2)
[2021-08-19 05:21] LABS: Bedside Glucose 59 mg/dL (70-110)
[2021-08-19 05:21] LABS: Bedside Glucose 50 mg/dL (70-110)
[2021-08-19 05:25] LABS: Anion Gap 9 (5-15); BUN 40 mg/dL (7-18); BUN/Creat Ratio 7.9 RATIO (10-20); Calcium,Total 7.7 mg/dL (8.5-10.1); Chloride 97 mmol/L (98-107); Creatinine, Serum 5.08 mg/dL (0.70-1.30); EST Glomerular Filtration Rate 12 mL/min (>60); Est Glom Filt Rate - Afr Amer 14 mL/min (>60); Estimated Creatinine Clearance 11.59 ml/min; Glucose 61 mg/dL (74-106); Potassium 3.7 mmol/L (3.5-5.1); Sodium Level 134 mmol/L (136-145)
--- NOTE | 2021-08-19 05:34 | NURSING ---
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 His machine was going off in the room. When I checked his blood sugar it was 50 so I gave him 240ml apple juice and checked again in 15 min it was 59 and his machine said 71. I gave him oj and cookies and 15 min later it was 97. Pt said that he feels much better.
[2021-08-19 06:35] LABS: Bedside Glucose 97 mg/dL (70-110)
[2021-08-19] MEDS: Ipratropium/Albuterol Sulfate 3 ML AMPUL.NEB INHALATION ×2 (07:21→12:35)
[2021-08-19] MEDS: Budesonide Respules 0.5 MG/2 ML AMPUL.NEB. INHALATION (07:22)
[2021-08-19 08:09] LABS: Anion Gap 9 (5-15); BUN 39 mg/dL (7-18); BUN/Creat Ratio 7.5 RATIO (10-20); Calcium,Total 7.7 mg/dL (8.5-10.1); Chloride 96 mmol/L (98-107); Creatinine, Serum 5.23 mg/dL (0.70-1.30); EST Glomerular Filtration Rate 11 mL/min (>60); Est Glom Filt Rate - Afr Amer 14 mL/min (>60); Estimated Creatinine Clearance 11.26 ml/min; Glucose 162 mg/dL (74-106); Potassium 3.9 mmol/L (3.5-5.1); Sodium Level 132 mmol/L (136-145)
[2021-08-19 11:10] LABS: Bedside Glucose 150 mg/dL (70-110)
[2021-08-19] MEDS: Ceftriaxone 1 GM/50 mL Premix Q24 IV (12:57)
--- NOTE | 2021-08-19 12:57 | DS.PCM_ITS ---
Providers Date of Admission: 08/15/21 Primary Care Physician: Dr. Sb Bolanos, DO Consultations 08/15/21 09:58 Consult: Milling Machine Operator / Pulmonary Medicine Routine Consulting Provider: Pulmonary Medicine sigrid [place] Reason for Consult: acute respiratory failure, on BIPAP EMERGENT Consult: No Notified: Yes Date Notified: 08/15/21 Time Notified: 08:51 Method of Notification: Text Consult: Nephrology Routine Consulting Provider: Allison Reyes Reason for Consult: ESRD, needs dialysis today EMERGENT Consult: No MD Notified: Yes Date Notified: 08/15/21 Time Notified: 08:53 Method of Notification: Text Reason For Visit: RESPIRATORY FAILURE, PNEUMONIA,COVID 19 INFECTION Diagnosis Discharge Diagnosis (1) Chronic kidney disease, stage V requiring chronic dialysis: Status: Chronic Code(s): N18.6 - End stage renal disease; Z99.2 - Dependence on renal dialysis Medications at Discharge Home Medications latanoprost 0.005 % eye drops 1 drp EACH EYE DAILY ml 11/15/17 albuterol sulfate 90 mcg/actuation aerosol inhaler 2 puff INHALATION Q6H PRN PRN #18 g 08/05/19 brimonidine 0.2 % eye drops 1 drp LEFT EYE BID ml 10/01/19 timolol 0.5 % eye drops 1 drp EACH EYE DAILY ml 10/01/19 hydralazine 25 mg tablet 25 mg PO TID tab 05/31/21 metoprolol succinate 25 mg tablet,extended release 24 hr 12.5 mg PO DAILY #45 tab 08/10/21 Trelegy Ellipta 1 inh INHALATION DAILY 08/15/21 aspirin 81 mg PO DAILY 08/15/21 atorvastatin 80 mg PO QHS 08/15/21 clopidogrel [Plavix] 75 mg PO DAILY 08/15/21 insulin lispro [Humalog U-100 Insulin] 150 unit SC DAILY 08/15/21 isosorbide mononitrate 30 mg PO DAILY 08/15/21 doxycycline hyclate 100 mg PO BID #10 tab 08/19/21 Hospital Course Operations None Procedures Colonoscopy, Dialysis and EGD Summary of Care Provided Minutes Spent on Discharge: 35 Hospital Course: DIVYA HUSAIN, is a 76 M with a PMH as outlined who was admitted via the ED on 09/04/2021 with a complaint of shortness of breath and hypoxia. He was diagnosed with COVID 3 weeks prior to admission. He had dialysis MWF previously, but since he got covid 3 weeks ago, he was switched to TTS and he had been going to [facility] for dialysis. He had dialysis on Sunday, and got short of breath today. HE had no fever or chills, but had increasing shortness of breath and hypoxia. HE required BIPAP and was also given ativan in the ED o/a of anxiety. CXR showed worsening left sided pneumonia. Vitals in the ED were BP of 149/92, VA of 117 and resp rate of 24. CBC showed wbc of 14.1, Hb of 8.4, platelets of 426; chemistry showed sodium of 130, chloride of 90 and Cr of 5.1. lactic acid was 6.3 and BNP of 795.6. He was admitted to be managed for acute on chronic hypoxic respiratory failure due to pneumonia. COVID test was negative. Subseqeuntly, troponins trended up markedly from 52 to >600. He was therefore managed for nonstemi. Cardiology was consulted. He was placed on heparin drip. Pulmonology was also consulted as patient was on BiPAP. He was transitioned off of BiPAP and nephrology was consulted. His shortness of breath improved after he had dialysis. Hospital course was complicated by acute on chronic anemia with hemoglobin dropping to 6.6, drop of about 2 units. Gastroenterology was consulted and patient had EGD and colonoscopy. EGD showed normal esophagus and stomach and normal second part of the duodenum. Colonoscopy showed poor prep with decreased sphincter tone and thrombosed external and internal hemorrhoids as well as moderate diverticulosis and 430 mm polyps in the transverse colon and cecum and one 5 mm polyp in the transverse colon which were removed. Patient was also put on IV ceftriaxone and azithromycin for pneumonia. Patient symptoms improved and he felt much better. Per cardiology, due to patient being so ill during this admission, it was advisable that patient should follow-up on outpatient basis for cardiac cath to be scheduled once he was more stable. Patient was transitioned to his regular 3 L of oxygen by nasal cannula. Urine culture grew mixed gram-positive organisms blood cultures were negative. He is to follow up with cardiology, nephrology and gastroenterology. He was discharged on PO doxycycline x 5 days to complete his antibiotic treatment for community acquired pneumonia Patient seen and examined prior to discharge. He had no active complaints and felt well. Review of systems otherwise negative. Labs and vitals reviewed. Home meds reviewed and reconciled. He was discharged on 08/19/2021 and is to follow up as outlined above. Physical Exam Const alert, oriented x3 and no apparent distress General Appearance: cooperative and comfortable Exam Limitations: no limitations HEENT normocephalic, head/scalp atraumatic, hearing grossly normal bilaterally and mo ist oral mucous membranes Eyes PERRL, EOMs intact bilaterally and conjunctivae normal Neck no lymphadenopathy Resp normal respiratory effort, no retractions, no use of accessory muscles and clear to auscultation bilaterally Resp Narrative: on 3L of oxygen by nasal canula Cardio regular rate, regular rhythm, S1 normal heart sound, S2 normal heart sound and no murmurs GI normal to inspection, nondistended, normoactive bowel sounds, soft to palpation, non-tender and non-distended Extremity normal to inspection, full ROM and no clubbing, cyanosis or edema Extremity Narrative: AV fistula in LUE with good thrill. Skin no rashes or lesions noted Neuro oriented x3, CN's II-XII intact bilaterally and moves all extremities Sensorium / Orientation: awake and alert Psych affect normal Weight / BMI Weight Weight: 173 lb 6.4 oz Body Mass Index (BMI) 26.4 ABG / Lab / Microbiology Data Result Diagrams: 08/19/21 04:50 08/19/21 07:37 Laboratory: Laboratory Results - last 24 hr 08/18/21 12:15: Sodium 131 L, Potassium 4.0, Chloride 97 L, Carbon Dioxide 22.0, Anion Gap 12, BUN 36 H, Creatinine 4.47 H, Estim Creat Clear Calc 13.18, Est GFR (MDRD) Af Amer 17 L, Est GFR (MDRD) Non-Af 14 L, BUN/Creatinine Ratio 8.1 L, Glucose 172 H, Calcium 7.8 L 08/18/21 15:30: Sodium 131 L, Potassium 3.8, Chloride 94 L, Carbon Dioxide 27.0, Anion Gap 10, BUN 36 H, Creatinine 4.60 H, Estim Creat Clear Calc 12.80, Est GFR (MDRD) Af Amer 16 L, Est GFR (MDRD) Non-Af 13 L, BUN/Creatinine Ratio 7.8 L, Glucose 237 H, Calcium 7.7 L 08/18/21 17:06: POC Glucose 159 H 08/18/21 18:40: Sodium 133 L, Potassium 3.9, Chloride 97 L, Carbon Dioxide 28.0, Anion Gap 8, BUN 37 H, Creatinine 4.75 H, Estim Creat Clear Calc 12.40, Est GFR (MDRD) Af Amer 15 L, Est GFR (MDRD) Non-Af 13 L, BUN/Creatinine Ratio 7.8 L, Glucose 167 H, Calcium 7.7 L 08/18/21 21:00: POC Glucose 179 H 08/18/21 23:15: Sodium 133 L, Potassium 3.8, Chloride 96 L, Carbon Dioxide 29.0, Anion Gap 8, BUN 39 H, Creatinine 4.99 H, Estim Creat Clear Calc 11.80, Est GFR (MDRD) Af Amer 15 L, Est GFR (MDRD) Non-Af 12 L, BUN/Creatinine Ratio 7.8 L, Glucose 182 H, Calcium 7.7 L 08/19/21 04:41: POC Glucose 50 L 08/19/21 04:50: WBC 7.0, RBC 2.99 L, Hgb 8.6 L, Hct 27.0 L, MCV 90.3, MCH 28.8, MCHC 31.9 L D, RDW Std Deviation 56.5 H, RDW Coeff of Janel 17.5 H, Plt Count 185, MPV 9.8, Immature Gran % (Auto) 0.900, Neut % (Auto) 68.8, Lymph % (Auto) 10.6 L , [place] % (Auto) 14.8 H, Eos % (Auto) 4.3, Baso % (Auto) 0.6, Absolute Neuts (auto) 4.8, Absolute Lymphs (auto) 0.74 L, Nucleated RBC % 0 08/19/21 04:50: Sodium 134 L, Potassium 3.7, Chloride 97 L, Carbon Dioxide 28.0, Anion Gap 9, BUN 40 H, Creatinine 5.08 H, Estim Creat Clear Calc 11.59, Est GFR (MDRD) Af Amer 14 L, Est GFR (MDRD) Non-Af 12 L, BUN/Creatinine Ratio 7.9 L, Glucose 61 L, Calcium 7.7 L 08/19/21 05:02: POC Glucose 59 L 08/19/21 05:30: POC Glucose 97 08/19/21 07:37: Sodium 132 L, Potassium 3.9, Chloride 96 L, Carbon Dioxide 27.0, Anion Gap 9, BUN 39 H, Creatinine 5.23 H, Estim Creat Clear Calc 11.26, Est GFR (MDRD) Af Amer 14 L, Est GFR (MDRD) Non-Af 11 L, BUN/Creatinine Ratio 7.5 L, Glucose 162 H, Calcium 7.7 L 08/19/21 11:08: POC Glucose 150 H Microbiology: Microbiology 08/16/21 05:45 Urine, Clean Catch Urine Culture - Final Mixed Gram Positive Organisms 08/15/21 07:25 Blood Culture (Wb) - Left Hand Blood Culture - Preliminary No growth in 48 hours. 08/15/21 07:15 Blood Culture (Wb) - Anticubital Right Blood Culture - Preliminary No growth in 48 hours. 08/16/21 10:15 Stool Stool Occult Blood (LEVI) - Final 08/16/21 05:45 Urine, Clean Catch Legionella Antigen - Final 08/16/21 05:45 Urine, Clean Catch Streptococcus pneumoniae Antigen (M - Fin al 08/15/21 13:28 Mucosa - Nose Respiratory Panel (PCR) - Final 08/15/21 07:07 Interface Orders SARS-CoV-2 Antigen (Rapid) - Final D/C Instructions Discharge Diet: Low fat / Low cholesterol Discharge Activity: Return to Normal Activity Weight Bearing Status: Weight bearing as tolerated Call your doctor if you observe: Fever of 101 or Higher, Shortness of breath, Dizziness, Swelling in the ankles, Chest pain and Increased palpitations (irregular heartbeat) Meaningful Use Info Meaningful Use Diagnoses (Choose all that apply): AMI AMI/Post PCI/Angioplasty Aspirin given w/in 24hrs of arrival?: Yes ASA at discharge?: Yes Statins at discharge?: Yes Fabrice/ARB at discharge?: No Reason Fabrice/ARB not ordered:: Worsening renal dysfunctn Beta Antonette at discharge?: Yes Done w/ Acute FL measure.: Yes Documented LVEF (%): 40 Discharge Plan Admission Admit Date/Time: 08/15/21 08:48 Primary Reason for Your Visit: acute hypoxic respiratory failure, nonstemi, anemia Attending Provider: Lisa Perez Primary Care Provider: Sb Bolanos Consulting Providers: Justin Martins ; Dev Bolanos ; Mariaelena Schilling HAND GLASS CUTTER ; Allison Moreno Instructions Patient Instructions: Heart Attack: Leaving the Hospital, ED Pneumonia (Adult) Discharge Orders/Prescriptions Prescriptions: New doxycycline hyclate 100 mg tablet 100 mg PO BID Qty: 10 RF: 0 Continued timolol 0.5 % drops 1 drp EACH EYE DAILY RF: 0 brimonidine 0.2 % drops 1 drp LEFT EYE BID RF: 0 hydralazine 25 mg tablet 25 mg PO TID RF: 0 latanoprost 1 DROP bottle 1 drp EACH EYE DAILY RF: 0 atorvastatin 80 mg tablet 80 mg PO QHS RF: 0 isosorbide mononitrate 30 mg tablet extended release 24 hr 30 mg PO DAILY RF: 0 clopidogrel [Plavix] 75 mg tablet 75 mg PO DAILY RF: 0 aspirin 81 mg tablet,delayed release (DR/EC) 81 mg PO DAILY RF: 0 insulin lispro [Humalog U-100 Insulin] 100 unit/mL solution 150 unit SC DAILY RF: 0 Trelegy Ellipta 200-62.5-25 mcg blister with device 1 inh INHALATION DAILY RF: 0 albuterol sulfate 90 mcg/actuation HFA aerosol inhaler 2 puff INHALATION Q6H PRN PRN (Reason: Sob &/Or Wheezing) Qty: 18 RF: 11 metoprolol succinate 25 mg tablet extended release 24 hr 12.5 mg PO DAILY Qty: 45 RF: 3 Referrals / Follow Up: Juventino Benson MD [STAFF PHYSICIAN] - Within 2 Weeks Sb Bolanos DO [Primary Care Provider] - Within 2 Weeks Dev Bolanos DO [STAFF PHYSICIAN] - 08/23/21 12:45 pm Yuan Heredia MD [STAFF PHYSICIAN] - 11/08/21 8:00 am Disposition Disposition (needs filled in before D/C Order can be placed): Home, Self Care Charges/Coding Visit Charges Inpatient E&M: 60250 Disch Hosp
[2021-08-19] MEDS: BRIMONIDINE 0.2% 5ML BOTTLE 1 DRP LEFT EYE (12:59)
[2021-08-19] MEDS: Metoprolol(XL)Succ 25 MG Tablet 12.5 MG PO (13:00)
[2021-08-19] MEDS: Isosorbide Mononitrate 30 MG Tablet PO (13:00)
[2021-08-19] MEDS: Timolol 0.5% 5ML OPTH.BTL 1 DRP LEFT EYE (13:04)
--- NOTE | 2021-08-19 13:11 | CASEMGMT ---
RNCM Note Patient to DC home today, family at bedside. Patient getting ready to eat lunch. Called [facility] and s/w Staci whom verified order for 4Lpm NC. Patient currently on 3Lpm- no changes in order required. Patient has portable oxygen at bedside. Patient denies any issues, concerns or questions with going home. Unique Hicks RNCM
== END 2021-08-19 15:34 | disposition home or self-care (01) | DRG 871 ==
LOC: ED 08:02 → PCU 09:13 → ICU 08-18 07:28 → PCU 08-18 10:46
PROVIDERS: Anesthesiology; Emergency Medicine; Internal Medicine; Internal Medicine Critical Care Medicine; Internal Medicine Gastroenterology; Nurse Practitioner Family; Admitting Provider Student in an Organized Health Care Education/Training Program; Emergency Provider Student in an Organized Health Care Education/Training Program; PCP Family Medicine; Visit Provider Student in an Organized Health Care Education/Training Program
PROC: 0DJ08ZZ Inspection of Upper Intestinal Tract, Via Natural or Artificial Opening Endoscopic (ICD-10-PCS; CPT 43235; principal; 2021-08-16 14:40)
PROC: 0DJD8ZZ Inspection of Lower Intestinal Tract, Via Natural or Artificial Opening Endoscopic (ICD-10-PCS; CPT 45378; principal; 2021-08-18 09:25)
DX: A41.9 Sepsis, unspecified organism (principal); N18.6 End stage renal disease; E11.10 Type 2 diabetes mellitus with ketoacidosis without coma; I50.33 Acute on chronic diastolic (congestive) heart failure; J18.9 Pneumonia, unspecified organism; J96.21 Acute and chronic respiratory failure with hypoxia; I21.A1 Myocardial infarction type 2; I13.2 Hypertensive heart and chronic kidney disease with heart failure and with stage 5 chronic kidney disease, or end stage renal disease; I47.2 Ventricular tachycardia; J44.0 Chronic obstructive pulmonary disease with (acute) lower respiratory infection; Z99.2 Dependence on renal dialysis; D12.0 Benign neoplasm of cecum; D12.3 Benign neoplasm of transverse colon; K57.30 Diverticulosis of large intestine without perforation or abscess without bleeding; K64.5 Perianal venous thrombosis; K64.4 Residual hemorrhoidal skin tags; R65.20 Severe sepsis without septic shock; D50.9 Iron deficiency anemia, unspecified; E11.22 Type 2 diabetes mellitus with diabetic chronic kidney disease; E11.51 Type 2 diabetes mellitus with diabetic peripheral angiopathy without gangrene; E55.9 Vitamin D deficiency, unspecified; E78.5 Hyperlipidemia, unspecified; F41.9 Anxiety disorder, unspecified; I25.10 Atherosclerotic heart disease of native coronary artery without angina pectoris; I25.2 Old myocardial infarction; I25.5 Ischemic cardiomyopathy; I35.0 Nonrheumatic aortic (valve) stenosis; G54.0 Brachial plexus disorders; N40.0 Benign prostatic hyperplasia without lower urinary tract symptoms; I48.0 Paroxysmal atrial fibrillation; K21.9 Gastro-esophageal reflux disease without esophagitis; Z87.19 Personal history of other diseases of the digestive system; Z86.16 Personal history of COVID-19; Z85.46 Personal history of malignant neoplasm of prostate; Z95.5 Presence of coronary angioplasty implant and graft; Z79.4 Long term (current) use of insulin; Z79.82 Long term (current) use of aspirin; Z79.899 Other long term (current) drug therapy; Z87.891 Personal history of nicotine dependence; Z99.81 Dependence on supplemental oxygen; Z23 Encounter for immunization
CPT/HCPCS: 36415; 36600; 71045; 71250; 71275; 80048; 80076; 82009; 82274; 82803; 82947; 82962; 83036; 83605; 83735; 83880; 84145; 84484; 85014; 85018; 85025; 85379; 85610; 85730; 86850; 86900; 86901; 86920; 86922; 87040; 87086; 87088; 87426; 87449; 87633; 88305; 90937; 93005; 93306; 94002; 94003; 94640; 97163; 97166; 97530; 99251; 99284; G0008; J7030; J7040; J7050; J7120; P9016; Q9957; Q9967; 90686; A4216; C8929; G0257; G0463; J2405

== ENCOUNTER 2021-09-13 08:31 | Day surgery (SDC) | payer MEDICARE, BC, SELFPAY ==
[2021-09-12 08:52] VITALS: BMI 24.7
[2021-09-13 08:46] LABS: Hematocrit 34.6 % (40-54); Hemoglobin 10.8 g/dL (13.0-16.5); Mean Corp Hgb Conc 31.2 g/dL (32-36); Mean Corpuscular Hgb 28.9 pg (27.0-32.0); Mean Corpuscular Volume 92.5 fL (80-94); Mean Platelet Vol. 10.2 fl (6.2-12.0); Platelet Count 217 K/mm3 (150-450); RBC Distribution Width CV 16.3 % (11.6-14.6); RBC Distribution Width SD 54.7 fl (35.1-43.9); Red Blood Count 3.74 M/mm3 (4.6-6.2); White Blood Count 6.6 K/mm3 (4.4-11.0)
[2021-09-13 09:02] LABS: Anion Gap 3 (5-15); BUN 38 mg/dL (7-18); BUN/Creat Ratio 9.8 RATIO (10-20); Calcium,Total 8.9 mg/dL (8.5-10.1); Chloride 101 mmol/L (98-107); Creatinine, Serum 3.89 mg/dL (0.70-1.30); EST Glomerular Filtration Rate 16 mL/min (>60); Est Glom Filt Rate - Afr Amer 19 mL/min (>60); Estimated Creatinine Clearance 15.14 ml/min; Glucose 153 mg/dL (74-106); Potassium 3.5 mmol/L (3.5-5.1); Sodium Level 136 mmol/L (136-145)
--- NOTE | 2021-09-13 10:08 | HP.PCM_ITS ---
History and Physical Date of Admission: 09/13/21 Intake Visit Reasons: DROPPING ACCESS FLOWS Chief Complaint: check fistula Cardiothoracic Surgeon Required: No Is patient in pain?: No Allergies amoxicillin [From Augmentin] Allergy (Unknown, Verified 09/06/21 14:00) Unknown clavulanic acid [From Augmentin] Allergy (Unknown, Verified 09/06/21 14:00) Unknown Sulfa (Sulfonamide Antibiotics) Allergy (Unknown, Verified 09/06/21 14:00) Unknown Medications latanoprost 0.005 % eye drops 1 drp EACH EYE DAILY ml 11/15/17 [History Confirmed 09/06/21] albuterol sulfate 90 mcg/actuation aerosol inhaler 2 puff INHALATION Q6H PRN PRN #18 g 08/05/19 [Rx Confirmed 09/06/21] brimonidine 0.2 % eye drops 1 drp LEFT EYE BID ml 10/01/19 [History Confirmed 1 ] timolol 0.5 % eye drops 1 drp EACH EYE DAILY ml 10/01/19 [History Confirmed 09/06/21] metoprolol succinate 25 mg tablet,extended release 24 hr 12.5 mg PO DAILY #45 tab 08/10/21 [Rx Confirmed 09/06/21] aspirin 81 mg PO DAILY 08/15/21 [History Confirmed 09/06/21] atorvastatin 80 mg PO QHS 08/15/21 [History Confirmed 09/06/21] clopidogrel [Plavix] 75 mg PO DAILY 08/15/21 [History Confirmed 09/06/21] isosorbide mononitrate 30 mg tablet,extended release 24 hr 30 mg PO DAILY #90 tab 08/22/21 [Rx Confirmed 09/06/21] insulin lispro 100 unit/mL subcutaneous solution 150 unit SC DAILY #135 ml 09/01/21 [Rx Confirmed 09/06/21] fluticasone fur. 200 mcg-umeclid 62.5 mcg-vilant 25 mcg inhalat.powder 1 inh INHALATION DAILY 09/06/21 [History Confirmed 09/06/21] [facility] Medical History (HFpEF) heart failure with preserved ejection fraction Acute blood loss anemia Acute on chronic respiratory failure with hypoxemia Acute respiratory failure Allergic rhinitis Anemia Anemia Atherosclerosis of coronary artery of [place] heart without angina pectoris Benign localized hyperplasia of prostate Carpal tunnel syndrome Chronic allergic rhinitis Chronic hypoxemic respiratory failure Chronic kidney disease, stage V requiring chronic dialysis Chronic otitis media Chronic steroid use CKD (chronic kidney disease) stage 4, GFR 15-29 ml/min Constipation COPD (chronic obstructive pulmonary disease) COPD (chronic obstructive pulmonary disease) Diabetes mellitus Dialysis patient Elevated troponin Epistaxis Essential (primary) hypertension Former smoker GERD (gastroesophageal reflux disease) GI bleed (06/28/19) HFrEF (heart failure with reduced ejection fraction) History of non-ST elevation myocardial infarction (NSTEMI) (02/03/20) History of prostate cancer Hyperlipidemia 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 Hyponatremia Incomplete right bundle branch block Insulin pump titration Ischemic cardiomyopathy 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 Low back pain Mobitz type I Wenckebach atrioventricular block Neuralgia Non-STEMI (non-ST elevated myocardial infarction) Nonallopathic lesion of lumbar region Nonallopathic lesion of rib cage Nonallopathic lesion of sacral region Nonallopathic lesion of thoracic region, not elsewhere classified NSVT (nonsustained ventricular tachycardia) Otalgia Otitis externa Overweight Pain in lower limb Paroxysmal atrial fibrillation (06/2019) Pedal edema Peripheral vascular insufficiency 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 Pulmonary nodule PVD (peripheral vascular disease) Reactive airway disease Serous otitis media Thoracic back pain Thoracic outlet syndrome Type I diabetes mellitus Urethral stricture Vitamin D deficiency Wax in ear Surgical History H/O inguinal hernia repair H/O prostate biopsy History of appendectomy History of carpal tunnel surgery of left wrist History of coronary artery stent placement (06/29/19) History of femoropopliteal bypass (01/2021) History of left heart catheterization (02/09/20) Problem with dialysis access (05/05/21) S/P bilateral foot surgery S/P rotator cuff repair Family History Sister Diabetes Father Heart disease Social History Smoking Status: Former smoker quit date: 11/12/13 pack-years: 55 how long ago did patient quit smokin years ago second hand exposure: No alcohol intake: never substance use type: does not use caffeine: Yes Type: coffee Number of servings: 1 HPI HPI HPI: DIVYA HUSAIN, is a 76 M who presents to the office today for decreased access flows. Patient was recently hospitalized at the beginning of July for COVID. Patient states he had to go to a dialysis center in [place] for 4 weeks after being discharged from the hospital. He notes at that dialysis center they were having difficulty utilizing the fistula. He notes once he went back to his home dialysis center his fistula access had improved. He was told last week that his numbers were declining and he need a fistulogram. Patient's last fistulogram was on 05/05/[address] Bazzi. Findings included proximal and distal left upper extremity stenosis. A 6 x 2 conquest angioplasty was performed for the proximal fistula perianastomotic stenosis and an 8 x 2 cutting balloon angioplasty and subsequently an 8 x 2 conquest angioplasty was performed of the venous outflow proximal left upper extremity. Patient is maintained on Plavix and aspirin. ROS General General: No weight change, appetite, fatigue, colon cancer, breast cancer or weakness HEENT HEENT: Yes eye injury and eye surgery; No difficulty swallowing, swollen glands or hoarseness Endo Endocrine: Yes diabetes mellitus; No thyroid disease, thyroid cancer, Hair loss, heat intolerance or cold intolerance Skin Skin: No rash or changing moles Breast Breast: No left breast lump, right breast lump, nipple discharge, breast pain, abnormal mammogram, abnormal US or breast enlargement Musc Musculoskeletal: No back problems, arthritis, rheumatoid arthritis, gout or joint pain Cardio Cardiovascular: Yes heart disease and high blood pressure; No murmur, pacemaker, atrial fibrillation, heart attack, heart stent, palpitations, shortness of breat with exertion or chest pain Psych Psychiatric: No depression, anxiety or hearing voices Resp Respiratory: Yes shortness of breath, No sleep apnea, No cough, Yes COPD, Yes asthma, No emphysema and No wheezing Gastro Gastrointestinal: No abdominal pain, No nausea or vomiting, No diarrhea, No constipation, No blood in stool, No acid reflux, No hemorrhoids, No ulcers, No gallbladder problem and No black,tarry stools Bhupinder Hematologic: Yes blood thinners, No blood disorders, No bleeding, Yes anemia and No blood clots Neuro Neurologic: No system reviewed and no additional complaints, except as documented, No as per HPI, No abnormal gait, No abnormal hearing, No abnormal movements, No abnormal speech, No behavioral changes, No burning sensations, No confusion, No convulsions, No disequilibrium, No dizziness, No localized weakness, No frequent falls, No headache(s), No lack of coordination, No loss of vision, No memory loss, No numbness, No other visual disturbances, No radicular pain, No restless legs, No sensory deficit, No syncope, No tingling, No trem or(s), No weakness and No other Exam Const General: cooperative, comfortable, no acute distress and frail appearing [facility] Head: normal to inspection Eyes General: appearance normal, both eyes and all related structures Neck Neck: normal visual inspection Neck mass: No Resp Effort & Inspection: normal respiratory effort Auscultation: clear to auscultation bilaterally Cardio Rate: regular rate Rhythm: regular rhythm GI Inspection: normal to inspection Skin General: no rashes or lesions noted and ecchymosis Neuro General: no focal motor deficits Extrem Other: Left upper extremity- diminished bruit and thrill. Decreased pulse. Psych Appearance: grossly normal Affect: normal affect Results POC A1C POC A1C 6.3 % Last Edit by Cristina Peralta on 09/06/21 10:10 Assessment and Plan Assessment and Plan (1) Problem with dialysis access: Status: Acute Qualifiers: Encounter type: initial encounter Qualified Code(s): T82.898A - Other specified complication of vascular prosthetic devices, implants and grafts, initial encounter Plan - Mary BULLARD PA-C: Dr. Bazzi will plan to perform a left upper extremity fistulogram. Procedure details, risks and benefits have been explained. Patient and his have had the opportunity to ask and have questions answered. Patient verbally understands and agrees with the plan. Patient to hold Plavix 2 days prior to the procedure. He may continue his aspirin. Coding Level of Care Code Off vis,est,level 3 Diagnoses Problem with dialysis access T82.898A Encounter type: initial encounter 09/06/21 1556<Electronically signed by Mary BULLARD PA-C>Date Mary BULLARD PA-C I have re-examined the patient. There are no clinical changes since date of exam. Jose Elias Bazzi M.D., F.A.C.S.
--- NOTE | 2021-09-13 11:09 | PCM.OPRPT ---
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 76-year-old gentleman was taken to the special procedures lab. He was placed supine on the table. The left extremity sterilely prepped draped. He received 50 mcg of fentanyl and 2 mg of Versed is intravenous sedation. Retrograde with flow closer to the upper arm area instilled 2% lidocaine and a micropuncture needle retrograde and then a micropuncture wire then a 6 Upper Sorbian short sheath dilator. I used an [address] a 4 Upper Sor[place] glide cath into the brachial artery just proximal to the anastomosis. Using Isovue obtained a fistulogram of the left upper arm. This demonstrated 70% stenosis of the proximal vein adjacent to the anastomosis. It demonstrated high-grade 90% stenosis of the mid fistula in the more proximal left upper arm. However the sheath was already distal to that spot. So I then placed a 8 x 2 cutting balloon perform balloon angioplasty of the very proximal portion of the fistula. Follow-up fistulogram demonstrated marked improvement. I then replaced 2% lidocaine in the more proximal portion of the patient inserted a micropuncture wire and affect 6 Upper Sorbian short sheath either this time antegrade with flow. I replaced the Glidewire and perform 8 x 2 conquest angioplasty at several different places in the mid fistula. Upon completion there appeared to be resolution with good central venous outflow. Fistulogram demonstrates a left upper arm cephalic vein to brachial artery AV fistula with 70% stenosis of the proximal portion of the fistula and high-grade 90% stenosis of the mid fistula in the left upper arm more proximal left upper arm area. Subsequent to balloon angioplasty there appears to be resolution at all sites. Jose Elias Bazzi M.D., F.A.C.S. Surgeon: Jose Elias Bazzi Type of Anesthesia: IV Sedation and Local
== END 2021-09-13 12:15 | disposition home or self-care (01) ==
LOC: CLSP 08:33
PROVIDERS: PCP Family Medicine; Referring Provider Surgery; Visit Provider Surgery
DX: T82.858A Stenosis of other vascular prosthetic devices, implants and grafts, initial encounter (principal); E10.22 Type 1 diabetes mellitus with diabetic chronic kidney disease; I13.0 Hypertensive heart and chronic kidney disease with heart failure and stage 1 through stage 4 chronic kidney disease, or unspecified chronic kidney disease; N18.4 Chronic kidney disease, stage 4 (severe); I50.9 Heart failure, unspecified; I25.10 Atherosclerotic heart disease of native coronary artery without angina pectoris; N40.0 Benign prostatic hyperplasia without lower urinary tract symptoms; I25.2 Old myocardial infarction; I25.5 Ischemic cardiomyopathy; I47.2 Ventricular tachycardia; I48.0 Paroxysmal atrial fibrillation; G54.0 Brachial plexus disorders; E10.51 Type 1 diabetes mellitus with diabetic peripheral angiopathy without gangrene; G56.00 Carpal tunnel syndrome, unspecified upper limb; J96.11 Chronic respiratory failure with hypoxia; J44.9 Chronic obstructive pulmonary disease, unspecified; K21.9 Gastro-esophageal reflux disease without esophagitis; Z87.19 Personal history of other diseases of the digestive system; Z99.2 Dependence on renal dialysis; Z79.4 Long term (current) use of insulin; Z79.02 Long term (current) use of antithrombotics/antiplatelets; Z79.82 Long term (current) use of aspirin; Z79.899 Other long term (current) drug therapy; Z87.891 Personal history of nicotine dependence
CPT/HCPCS: 36415; 36902; 80048; 85027; 99152; 99153; C1894; Q9967; C1725; C1769

== ENCOUNTER 2021-11-15 10:10 | Outpatient (CLI) | payer MEDICARE, BC, SELFPAY ==
[2021-11-15 11:05] LABS: PSA,Total- Diagnostic 0.76 ng/mL (0.0-4.0)
== END 2021-11-15 23:59 | disposition short-term general hospital (02) ==
LOC: PAVLAB 10:13
PROVIDERS: PCP Family Medicine; Referring Provider Urology; Visit Provider Urology
DX: C61 Malignant neoplasm of prostate (principal)
CPT/HCPCS: 36415; 84153

== ENCOUNTER 2022-01-16 06:25 | Inpatient (IN) | payer MEDICARE, BC, SELFPAY ==
[2022-01-16] VITALS (22 sets, daily range): BP systolic 100–153; BP diastolic 54–80; PULSE 83–111; RESP 12–26; TEMP 36.2–36.8; O2SAT 35–100; BMI 23.8; BMI 24.0
--- NOTE | 2022-01-16 06:32 | EKG12_ITS ---
Test Reason : SOB Blood Pressure : / mmHG Vent. Rate : 098 BPM Atrial Rate : 098 BPM P-R Int : 184 ms QRS Dur : 120 ms QT Int : 368 ms P-R-T Axes : 067 -43 114 degrees QTc Int : 469 ms Normal sinus rhythm Left axis deviation ST & T wave abnormality, consider lateral ischemia Abnormal ECG Confirmed by JUAN SPAULDING, TD ([id number]), editor dictionary TWIN ESPINOZA ([id number]) on 01/17/2022 9:44:48 AM Referred By: KENNY Confirmed By:TD MARTINEZ MD
--- NOTE | 2022-01-16 06:32 | RAD_ITS ---
STUDY: X-RAY CHEST REASON FOR EXAM: Male, 76 years old. Short of breath. TECHNIQUE: AP COMPARISON: 08/15/2021 CXR FINDINGS: Moderate left pleural effusion with adjacent atelectasis. Coarse interstitial prominence bilaterally with patchy regions of groundglass opacity. Scattered bilateral nodular opacities again demonstrated. No apparent pneumothorax. Underlying emphysema. Mild cardiomegaly and atherosclerosis. Trachea midline. RAD/Chest 1 View (Portable) IMPRESSION: Left pleural effusion with adjacent atelectasis. Mild edema or less likely atypical pneumonia superimposed upon emphysema. Mild cardiomegaly Electronically Signed: Cooper Mejia MD at 7:47 EST Reading Location ID and State: [facility] [place] Tel , Service support ,
[2022-01-16 06:44] LABS: Absolute Lymphocyte Count 1.84 X10^3/uL (0.83-4.51); Absolute Neutrophil Count 11.4 X10^3/uL (2.0-7.7); Basophil# 0.09 X10^3/uL; Basophil% 0.6 % (0-1); Eosinophil# 0.37 X10^3/uL; Eosinophils% 2.5 % (0-5); Hematocrit 33.5 % (40-54); Hemoglobin 10.1 g/dL (13.0-16.5); Lymphocyte # 1.84 X10^3/ul (0.83-4.51); Lymphocyte % 12.4 % (19-41); Mean Corp Hgb Conc 30.1 g/dL (32-36); Mean Corpuscular Hgb 29.1 pg (27.0-32.0); Mean Corpuscular Volume 96.5 fL (80-94); Mean Platelet Vol. 10.7 fl (6.2-12.0); Monocyte# 1.06 X10^3/uL; Monocyte% 7.1 % (0-10); NRBC Flagged by Analyzer 0.1 % (0-5); Neutrophil # 11.38 X10^3/uL (2.7-7.7); Neutrophil % 76.7 % (47-70); POSITIVE COUNT YES; Platelet Count 292 K/mm3 (150-450); RBC Distribution Width CV 17.2 % (11.6-14.6); RBC Distribution Width SD 60.5 fl (35.1-43.9); Red Blood Count 3.47 M/mm3 (4.6-6.2); White Blood Count 14.9 K/mm3 (4.4-11.0)
[2022-01-16] MEDS: Ipratropium/Albuterol Sulfate 3 ML AMPUL.NEB INHALATION ×4 (06:44→23:19)
[2022-01-16] MEDS: MethylPREDNISolone 125 MG/2 ML Vial IV (06:44)
[2022-01-16] MEDS: Albuterol 2.5 MG/3 ML VIAL.NEB. INHALATION (06:44)
--- NOTE | 2022-01-16 06:44 | EX.ED.DYSGE1 ---
HPI History of Present Illness Chief Complaint: Shortness of Breath Narrative Narrative: Patient is a 76-year-old male with past medical history of diabetes as well as chronic renal failure on dialysis and COPD who wears 4 L of nasal cannula oxygen 04/06. Patient states that he went to bed feeling at his baseline and then awoke around 3 in the morning with increased shortness of breath. He states he is not had a fever or chills or chest pain associated with this. He states that he tried dealing with it for the last 3 hours but symptoms continue to worsen and secondary to this he awoke his who called 911. EMS states when they arrived patient was satting in the mid 50s and did not have improvement with transition to facemask and therefore he was placed on CPAP and was still having increased work of breathing and low pulse ox in the 70s. Patient states that he has been receiving dialysis as directed and his next scheduled dialysis appointment should be today [facility] Medical History (HFpEF) heart failure with preserved ejection fraction Acute blood loss anemia Acute on chronic respiratory failure with hypoxemia Acute respiratory failure Allergic rhinitis Anemia Anemia Atherosclerosis of coronary artery of [place] heart without angina pectoris Benign localized hyperplasia of prostate Carpal tunnel syndrome Chronic allergic rhinitis Chronic hypoxemic respiratory failure Chronic kidney disease, stage V requiring chronic dialysis Chronic otitis media Chronic steroid use CKD (chronic kidney disease) stage 4, GFR 15-29 ml/min Constipation COPD (chronic obstructive pulmonary disease) COPD (chronic obstructive pulmonary disease) Diabetes mellitus Dialysis patient Elevated troponin Epistaxis Essential (primary) hypertension Former smoker GERD (gastroesophageal reflux disease) GI bleed (06/28/19) HFrEF (heart failure with reduced ejection fraction) History of non-ST elevation myocardial infarction (NSTEMI) (02/03/20) History of prostate cancer Hyperlipidemia 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 Hyponatremia Incomplete right bundle branch block Insulin pump titration Ischemic cardiomyopathy correction (current) use of insulin Low back pain Mobitz type I Wenckebach atrioventricular block Neuralgia Non-STEMI (non-ST elevated myocardial infarction) Nonallopathic lesion of lumbar region Nonallopathic lesion of rib cage Nonallopathic lesion of sacral region Nonallopathic lesion of thoracic region, not elsewhere classified NSVT (nonsustained ventricular tachycardia) Otalgia Otitis externa Overweight Pain in lower limb Paroxysmal atrial fibrillation (06/2019) Pedal edema Peripheral vascular insufficiency 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 Pulmonary nodule PVD (peripheral vascular disease) Reactive airway disease Serous otitis media Thoracic back pain Thoracic outlet syndrome Type I diabetes mellitus Urethral stricture Vitamin D deficiency Wax in ear Home Medications latanoprost 0.005 % eye drops 1 drp EACH EYE DAILY ml 11/15/17 [History Last Taken 03/25/20 06:00 1 DRP] brimonidine 0.2 % eye drops 1 drp LEFT EYE BID ml 10/01/19 [History Last Taken 05/05/21] timolol 0.5 % eye drops 1 drp EACH EYE DAILY ml 10/01/19 [History Last Taken 03/25/20 06:00 1 DRP] metoprolol succinate 25 mg tablet,extended release 24 hr 12.5 mg PO DAILY #45 tab 08/10/21 [Rx Last Taken Unknown] aspirin 81 mg PO DAILY 08/15/21 [History Last Taken Unknown] isosorbide mononitrate 30 mg tablet,extended release 24 hr 30 mg PO DAILY #90 tab 08/22/21 [Rx Last Taken Unknown] atorvastatin 80 mg tablet 80 mg PO QHS #90 tab 11/08/21 [Rx Last Taken Unknown] clopidogrel 75 mg tablet 75 mg PO DAILY #90 tab 11/08/21 [Rx Last Taken Unknown] albuterol sulfate 90 mcg/actuation aerosol inhaler 2 puff INHALATION Q4H PRN #8.5 g 11/15/21 [Rx Last Taken Unknown] fluticasone fur. 200 mcg-umeclid 62.5 mcg-vilant 25 mcg inhalat.powder 1 inh INHALATION DAILY #60 ea 11/15/21 [Rx Last Taken Unknown] insulin lispro 100 unit/mL subcutaneous solution 100 unit SC DAILY ml 01/12/22 [History Last Taken Unknown] Allergy/AdvReac Type Severity Reaction Status Date / Time amoxicillin [From Augmentin] Allergy Unknown Unknown Verified 01/16/22 06:48 clavulanic acid Allergy Unknown Unknown Verified 01/16/22 06:48 [From Augmentin] Sulfa (Sulfonamide Allergy Unknown Unknown Verified 01/16/22 06:48 Antibiotics) Family History Sister Diabetes Father Heart disease Surgical History H/O inguinal hernia repair H/O prostate biopsy History of appendectomy History of carpal tunnel surgery of left wrist History of coronary artery stent placement (06/29/19) History of femoropopliteal bypass (01/2021) History of left heart catheterization (02/09/20) Problem with dialysis access (05/05/21) S/P bilateral foot surgery S/P rotator cuff repair Social History Smoking Status: Former smoker quit date: 11/12/13 pack-years: 55 how long ago did patient quit smokin years ago second hand exposure: No alcohol intake: never substance use type: does not use caffeine: Yes Type: coffee Number of servings: 1 ROS ROS ED Constitutional Constitutional ED: Denies chills or fever(s) ENT ENT ED: Denies sore throat Cardiovascular Cardiovascular: Denies chest pain Respiratory/Chest Respiratory/Chest: Reports cough and dyspnea Gastrointestinal Gastrointestinal: Denies abdominal pain, diarrhea, nausea or vomiting Genitourinary Genitourinary ED: Denies dysuria Musculoskeletal Musculoskeletal: Denies myalgias Integumentary Denies rash Neurologic Neurologic: Denies headache(s) Hematologic/Lymphatic Hematologic/Lymphatic: Reports easy bleeding and easy bruising EXAM Physical Exam Const Vital Signs: 01/16/22 06:25 01/16/22 06:26 01/16/22 06:32 Temperature 97.2 F L Temperature Source Temporal Pulse Rate 109 H 111 H 98 Respiratory Rate 24 H 20 H 26 H Respiratory Effort Respiratory Pattern Tachypnea Tachypnea Blood Pressure 153/80 H Blood Pressure Mean 104 Pulse Ox 98 99 35 Oxygen Delivery Method Bi-pap Fraction of Inspired Oxygen (FIO2) 100 100 35 01/16/22 06:39 01/16/22 06:53 01/16/22 06:59 Temperature Temperature Source Pulse Rate 97 91 Respiratory Rate 21 H 18 Respiratory Effort Labored Accessory Muscle Use Respiratory Pattern Tachypnea Tachypnea Blood Pressure 141/74 H Blood Pressure Mean 96 Pulse Ox 100 Oxygen Delivery Method Bi-pap Bi-pap Fraction of Inspired Oxygen (FIO2) 35 30 Positive well nourished and well developed Constitutional Narrative: Patient is in moderate respiratory distress with tachypnea and accessory muscle use General Appearance ED: well developed HEENT Reports dry mucous membranes HEENT Narrative: No tongue or lip swelling no oral lesions no airway edema or compromise Mouth ED: Yes dry mucous membranes Mouth: dry mucous membranes Eyes PERRL and EOMs intact bilaterally Neck supple and no JVD Resp Resp Narrative: Patient is in moderate respiratory distress with tachypnea and accessory muscle use. Breath sounds are diminished throughout with diffuse expiratory wheezes and faint crackles in the bilateral bases Cardio regular rhythm Rate: tachycardic GI non-tender, non-distended and no masses GI Narrative: Abdomen is soft nontender nondistended with hypoactive bowel sounds. No voluntary guarding or rigidity no pulsatile mass. Palpation: soft Extremity Extremity Narrative: No asymmetric edema no pitting edema negative Homans' sign bilaterally. There is a fistula present in the left arm with palpable thrill and good bruit. Patient has ecchymosis and necrosis to his left toes and the discoloration extends to the midfoot. Patient reports this is chronic in nature Neuro oriented x3 and CN's II-XII intact bilaterally Sensorium / Orientation: alert Motor Exam: strength 5/5 throughout Psych Mood & Affect: anxious Skin Skin Narrative: Patient skin is pale and cool with delayed capillary refill. He has the changes to his left foot as documented above which he states is chronic in nature MDM MDM MDM Narrative Medical decision making narrative: Patient poorly was hypoxic in the 50s at home with minimal improvement with transition to a higher level of breathing treatments. In the ER he was placed on BiPAP given an albuterol and DuoNeb treatment as well as Solu-Medrol. Within approximately 10 to 15 minutes of being on the BiPAP the patient did have resolution of his work of breathing. His color improved and pulse ox was 95 to 100%. The patient states that he has nasal cannula oxygen but he does not have a BiPAP at home. Therefore at this time as he is requiring a higher level of treatment for his COPD he qualifies as acute on chronic respiratory failure with hypoxia and I feel he'll need to be admitted for further treatment. Lab Data Labs: Laboratory Results - last 24 hr 01/16/22 01/16/22 06:30 06:30 WBC 14.9 H RBC 3.47 L Hgb 10.1 L Hct 33.5 L MCV 96.5 H MCH 29.1 MCHC 30.1 L RDW Std Deviation 60.5 H RDW Coeff of Janel 17.2 H Plt Count 292 MPV 10.7 Immature Gran % (Auto) 0.700 Neut % (Auto) 76.7 H Lymph % (Auto) 12.4 L [place] % (Auto) 7.1 Eos % (Auto) 2.5 Baso % (Auto) 0.6 Absolute Neuts (auto) 11.4 H Absolute Lymphs (auto) 1.84 Nucleated RBC % 0.1 Plt Morphology Comment CLUMPED Anisocytosis 1+ Sodium 132 L Potassium 4.0 Chloride 94 L Carbon Dioxide 25.0 Anion Gap 13 BUN 66 H Creatinine 5.35 H Estim Creat Clear Calc 11.38 Est GFR (MDRD) Af Amer 13 L Est GFR (MDRD) Non-Af 11 L BUN/Creatinine Ratio 12.3 Glucose 302 H Calcium 8.8 Phosphorus 5.2 H Magnesium 2.3 Critical Care Time Critical Care Time: Yes Critical care time (excluding procedures): - (Please note critical care time of 31 minutes) Discharge Plan Dx/Rx/DC Orders Clinical Impression: Acute on chronic respiratory failure with hypoxemia, Chronic kidney failure Disposition Disposition: Acute Care [facility]
[2022-01-16 06:45] LABS: Differential Indicated SCAN CRITERIA MET
[2022-01-16 06:57] LABS: Anisocytosis 1+
[2022-01-16 06:58] LABS: Platelet Morphology CLUMPED
[2022-01-16 07:00] LABS: Anion Gap 13 (5-15); BUN 66 mg/dL (7-18); BUN/Creat Ratio 12.3 RATIO (10-20); Calcium,Total 8.8 mg/dL (8.5-10.1); Chloride 94 mmol/L (98-107); Creatinine, Serum 5.35 mg/dL (0.70-1.30); EST Glomerular Filtration Rate 11 mL/min (>60); Est Glom Filt Rate - Afr Amer 13 mL/min (>60); Estimated Creatinine Clearance 11.38 ml/min; Glucose 302 mg/dL (74-106); Magnesium 2.3 mg/dL (1.6-2.6); Phosphorus 5.2 mg/dL (2.5-4.9); Sodium Level 132 mmol/L (136-145)
[2022-01-16 07:15] LABS: International Normalized Ratio 1.1; Partial Thromboplast Time 21.3 Seconds (24.1-36.2); Prothrombin Time (Protime)PT. 13.1 SECONDS (11.7-14.9)
[2022-01-16] MEDS: HYDROmorphone 0.5 MG/0.5 ML SYRINGE IV (07:36)
[2022-01-16] MEDS: Ceftriaxone 1 GM/50 ML BAG IV (07:36)
[2022-01-16 08:16] LABS: Allen Test Positive; Base Excess 2 mmol/L (-2 to +2); Bicarbonate 26.5 mmol/L (22-26); Blood Gas Specimen Type ART; FI02 30; Mode BiLevel; PO2 75 mmHG (75-100); SITE R Radial; SO2 95 % (95-99); Total Carbon Dioxide 28 mmol/L; pCO2 43.4 mmHg (35-45); pH 7.39 (7.35-7.45)
--- NOTE | 2022-01-16 08:19 | ED.RN ---
pt tolerating his nc at 4l off bipap. dr lemon paged dr starkey for patient to go to pcu rather than icu
--- NOTE | 2022-01-16 09:16 | PCM.HP.STD ---
HPI - General General Date of Admission: 01/16/22 Date of Service: 01/16/22 Chief Complaint: Shortness of breath HPI Narrative DIVYA HUSAIN, is a 76 M who presents to the [facility] at [facility] with a chief complaint of increasing shortness of breath over the last 24 hours. Patient denied any fevers or chills, medical information was obtained from the patient's daughter and who was in the room at the time of my examination-patient does not have his hearing aids and he cannot hear to carry on a conversation. Patient family states that the patient is on chronic oxygen at home, he had COVID last year and sees pulmonary medicine on a chronic basis. Patient is also on hemodialysis on Sunday and Sunday, other medical problems include coronary artery disease-patient had a stent about 2 years ago, and peripheral vascular disease-patient has some ecchymosis to his left foot which is chronic and it involves primarily the toes on the left foot with small areas of dry gangrene on the toes. Work-up in the emergency room included a chest x-ray which showed chronic infiltrates in both lungs-I feel this is probably secondary to previous history of Covid pneumonia, patient's labs were obtained and showed a white blood cell count of 14.9, hemoglobin is 10.1, and chemistry profile was remarkable for creatinine of 5.35, BUN of 66, and glucose of 302. Patient was initially placed on BiPAP and it was initially thought that the patient would go to ICU, however, after a time patient was able to be weaned to 5 L via nasal cannula. Patient will be admitted to PCU and he will be seen by pulmonary medicine. Patient will also need to be seen by nephrology for dialysis today, patient will be maintained on aerosol treatments, receive IV corticosteroids and IV antibiotics. I had a discussion with the patient's family concerning CODE STATUS, patient is a DNR CC arrest no intubation. [facility] Medical History (HFpEF) heart failure with preserved ejection fraction Acute blood loss anemia Acute on chronic respiratory failure with hypoxemia Acute respiratory failure Allergic rhinitis Anemia Anemia Atherosclerosis of coronary artery of [place] heart without angina pectoris Benign localized hyperplasia of prostate Carpal tunnel syndrome Chronic allergic rhinitis Chronic hypoxemic respiratory failure Chronic kidney disease, stage V requiring chronic dialysis Chronic otitis media Chronic steroid use CKD (chronic kidney disease) stage 4, GFR 15-29 ml/min Constipation COPD (chronic obstructive pulmonary disease) COPD (chronic obstructive pulmonary disease) Diabetes mellitus Dialysis patient Elevated troponin Epistaxis Essential (primary) hypertension Former smoker GERD (gastroesophageal reflux disease) GI bleed (06/28/19) HFrEF (heart failure with reduced ejection fraction) History of non-ST elevation myocardial infarction (NSTEMI) (02/03/20) History of prostate cancer Hyperlipidemia 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 Hyponatremia Incomplete right bundle branch block Insulin pump titration Ischemic cardiomyopathy half-way (current) use of insulin Low back pain Mobitz type I Wenckebach atrioventricular block Neuralgia Non-STEMI (non-ST elevated myocardial infarction) Nonallopathic lesion of lumbar region Nonallopathic lesion of rib cage Nonallopathic lesion of sacral region Nonallopathic lesion of thoracic region, not elsewhere classified NSVT (nonsustained ventricular tachycardia) Otalgia Otitis externa Overweight Pain in lower limb Paroxysmal atrial fibrillation (06/2019) Pedal edema Peripheral vascular insufficiency 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 Pulmonary nodule PVD (peripheral vascular disease) Reactive airway disease Serous otitis media Thoracic back pain Thoracic outlet syndrome Type I diabetes mellitus Urethral stricture Vitamin D deficiency Wax in ear Home Medications latanoprost 0.005 % eye drops 1 drp EACH EYE DAILY ml 11/15/17 [History Last Taken 03/25/20 06:00 1 DRP] brimonidine 0.2 % eye drops 1 drp LEFT EYE BID ml 10/01/19 [History Last Taken 05/05/21] timolol 0.5 % eye drops 1 drp EACH EYE DAILY ml 10/01/19 [History Last Taken 03/25/20 06:00 1 DRP] metoprolol succinate 25 mg tablet,extended release 24 hr 12.5 mg PO DAILY #45 tab 08/10/21 [Rx Last Taken Unknown] aspirin 81 mg PO DAILY 08/15/21 [History Last Taken Unknown] isosorbide mononitrate 30 mg tablet,extended release 24 hr 30 mg PO DAILY #90 tab 08/22/21 [Rx Last Taken Unknown] atorvastatin 80 mg tablet 80 mg PO QHS #90 tab 11/08/21 [Rx Last Taken Unknown] clopidogrel 75 mg tablet 75 mg PO DAILY #90 tab 11/08/21 [Rx Last Taken Unknown] albuterol sulfate 90 mcg/actuation aerosol inhaler 2 puff INHALATION Q4H PRN #8.5 g 11/15/21 [Rx Last Taken Unknown] fluticasone fur. 200 mcg-umeclid 62.5 mcg-vilant 25 mcg inhalat.powder 1 inh INHALATION DAILY #60 ea 11/15/21 [Rx Last Taken Unknown] insulin lispro 100 unit/mL subcutaneous solution 100 unit SC DAILY ml 01/12/22 [History Last Taken Unknown] Allergy/AdvReac Type Severity Reaction Status Date / Time amoxicillin [From Augmentin] Allergy Unknown Unknown Verified 01/16/22 06:48 clavulanic acid Allergy Unknown Unknown Verified 01/16/22 06:48 [From Augmentin] Sulfa (Sulfonamide Allergy Unknown Unknown Verified 01/16/22 06:48 Antibiotics) Family History Sister Diabetes Father Heart disease Surgical History H/O inguinal hernia repair H/O prostate biopsy History of appendectomy History of carpal tunnel surgery of left wrist History of coronary artery stent placement (06/29/19) History of femoropopliteal bypass (01/2021) History of left heart catheterization (02/09/20) Problem with dialysis access (05/05/21) S/P bilateral foot surgery S/P rotator cuff repair Social History (Updated 01/16/22 @ 08:54 by Torie Barba) household members: spouse housing: house Smoking Status: Former smoker quit date: 11/12/13 pack-years: 55 how long ago did patient quit smokin years ago second hand exposure: No alcohol intake: never substance use type: does not use caffeine: Yes Type: coffee Number of servings: 1 ROS Review of Systems ROS Unobtainable: other Details: Review of systems was unable be obtained from the patient due to severe hearing loss, information was obtained from patient's family Vital Signs Vital Signs Vital Signs: 01/16/22 06:25 01/16/22 06:26 01/16/22 06:32 Temperature 97.2 F L Temperature Source Temporal Pulse Rate 109 H 111 H 98 Respiratory Rate 24 H 20 H 26 H Respiratory Effort Respiratory Pattern Tachypnea Tachypnea Blood Pressure 153/80 H Blood Pressure Mean 104 Blood Pressure Source Blood Pressure Position Blood Pressure Location Pulse Ox 98 99 35 Oxygen Delivery Method Bi-pap Oxygen Flow Rate (L/min) Fraction of Inspired Oxygen (FIO2) 100 100 35 01/16/22 06:39 01/16/22 06:53 01/16/22 06:59 Temperature Temperature Source Pulse Rate 97 91 Respiratory Rate 21 H 18 Respiratory Effort Labored Accessory Muscle Use Respiratory Pattern Tachypnea Tachypnea Blood Pressure 141/74 H Blood Pressure Mean 96 Blood Pressure Source Blood Pressure Position Blood Pressure Location Pulse Ox 100 Oxygen Delivery Method Bi-pap Bi-pap Oxygen Flow Rate (L/min) Fraction of Inspired Oxygen (FIO2) 35 30 01/16/22 07:41 01/16/22 08:19 01/16/22 08:45 Temperature 97.5 F L 98.1 F Temperature Source Temporal Oral Pulse Rate 85 88 91 Respiratory Rate 16 16 19 H Respiratory Effort Respiratory Pattern Blood Pressure 126/61 H 120/61 100/63 Blood Pressure Mean 82 80 75 Blood Pressure Source Monitor Blood Pressure Position Semi-Fowlers Blood Pressure Location Right Arm Pulse Ox 99 99 95 Oxygen Delivery Method Bi-pap Nasal Cannula Nasal Cannula Oxygen Flow Rate (L/min) 4 4 Fraction of Inspired Oxygen (FIO2) Weight Weight: 71.6 kg Body Mass Index (BMI) 24.0 Physical Exam Const alert and oriented x3 General Appearance: cooperative, well kempt and well developed Orientation / Consciousness: awake, oriented to person, oriented to place and oriented to time HEENT normocephalic, head/scalp atraumatic and moist oral mucous membranes HEENT Narrative: Patient is extremely hard of hearing Eyes PERRL, EOMs intact bilaterally and conjunctivae normal Neck nuchal rigidity, supple, no JVD, thyroid normal and no carotid bruits General: trachea midline Resp clear to auscultation bilaterally Resp Narrative: Patient is using accessory muscles to breathe at the time of my examination, breath sounds are diminished bilaterally, there are no expiratory wheezes or rhonchi noted, no rales are noted anteriorly. Auscultation: Negative for rales, rhonchi or wheezes Cardio regular rate, regular rhythm, S1 normal heart sound, S2 normal heart sound, no murmurs, no rub and no gallops GI normal to inspection, nondistended, normoactive bowel sounds, soft to palpation, non-tender and non-distended Extremity Extremity Narrative: There was ecchymosis noted over the patient's toes of the left foot extending somewhat into the dorsum of the distal left foot. There was areas of dry gangrene noted at the tips of the great toe and over the remaining toes of the foot. Foot was somewhat cool to the touch. Skin Skin Narrative: Left foot appears ecchymotic distally, it is cool to the touch not cold, there are areas with dry gangrene noted on the toes General Skin Exam: no breakdown Neuro oriented x3, CN's II-XII intact bilaterally, no focal motor deficits and no sensory deficits noted Sensorium / Orientation: awake and alert Speech: speech normal Psych affect normal Results Lab / Micro Data Result Diagrams: 01/16/22 06:30 01/16/22 06:30 Labs: Laboratory Results - last 24 hr 01/16/22 06:30: WBC 14.9 H, RBC 3.47 L, Hgb 10.1 L, Hct 33.5 L, MCV 96.5 H, MCH 29.1, MCHC 30.1 L, RDW Std Deviation 60.5 H, RDW Coeff of Janel 17.2 H, Plt Count 292, MPV 10.7, Immature Gran % (Auto) 0.700, Neut % (Auto) 76.7 H, Lymph % (Auto) 12.4 L, Mcdonald % (Auto) 7.1, Eos % (Auto) 2.5, Baso % (Auto) 0.6, Absolute Neuts (auto) 11.4 H, Absolute Lymphs (auto) 1.84, Nucleated RBC % 0.1, Plt Morphology Comment CLUMPED, Anisocytosis 1+ 01/16/22 06:30: PT 13.1, INR 1.1, APTT 21.3 L 01/16/22 06:30: Sodium 132 L, Potassium 4.0, Chloride 94 L, Carbon Dioxide 25.0, Anion Gap 13, BUN 66 H, Creatinine 5.35 H, Estim Creat Clear Calc 11.38, Est GFR (MDRD) Af Amer 13 L, Est GFR (MDRD) Non-Af 11 L, BUN/Creatinine Ratio 12.3, Glucose 302 H, Calcium 8.8, Phosphorus 5.2 H, Magnesium 2.3 Micro: Microbiology 01/16/22 06:26 Mucosa - Nose Influenza Types A,B Direct FA (LEVI) - Final 01/16/22 06:26 Nasal Secretion SARS-CoV-2 Antigen (Rapid) - Final ABG Data ABG results: ABG 01/16/22 08:08 Specimen Type ART Sample Site R Radial pH 7.39 Bicarbonate Actual 26.5 H Total CO2 28 Base Excess 2 O2 Saturation 95 O2 % 30 ABG pCO2 43.4 ABG pO2 75 Price Test Positive Vent Mode BiLevel Radiology Impression Chest X-Ray 01/16/22 06:32 IMPRESSION: Left pleural effusion with adjacent atelectasis. Mild edema or less likely atypical pneumonia superimposed upon emphysema. Mild cardiomegaly Electronically Signed: Cooper Mejia MD at 7:47 EST Reading Location ID and State: 1954 ID Tel , Service support , Assessment & Plan Assessment/Plan (1) Acute on chronic respiratory failure with hypoxemia: PLAN: 1. Acute on chronic hypoxic respiratory failure-etiology unclear at this point-patient will be admitted to PCU, pulse ox will be monitored, he will be seen by pulmonary medicine, patient will receive IV corticosteroids, IV antibiotics, and aerosol treatments. 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 #8 type 2 diabetes-patient is currently on an insulin pump, I will not use the insulin pump while he is in the hospital, instead I will cover him with basal insulin and sliding scale insulin. It is likely that the patient will have to go on insulin with each meal due to IV corticosteroid usage. Sugars will be monitored and I will make that decision based on how well his sugars are controlled. #9 chronic congestive heart failure with preserved ejection fraction-no specific treatment will be given to the patient for this, he produces very little urine, he remains on dialysis Charges/Coding Visit Charges Inpatient E&M: 95160 Init Hosp L3
[2022-01-16 09:21] LABS: Bedside Glucose 292 mg/dL (74-106)
--- NOTE | 2022-01-16 09:43 | EX.PCM.CONCC ---
Assessment & Plan Assessment/Plan (1) Acute on chronic respiratory failure with hypoxemia: PLAN: RECOMMENDATIONS: 1. Wean supplemental oxygen as tolerated. 2. Proceed with hemodialysis and volume removal. 3. Continue empiric antimicrobials. 4. Continue scheduled bronchodilators and steroids for now. 5. Encourage incentive spirometer use while in bed and mobilize patient as tolerated. IMPRESSIONS: 1. Acute on chronic hypoxemic respiratory failure The patient reported that he awoke abruptly from sleep last night feeling short of breath. The exact etiology for his acute presentation is unclear. However, chest imaging did reveal interstitial prominence, cardiomegaly and a left-sided pleural effusion, which could certainly suggest a component of hypervolemia, in the setting of end-stage renal disease. The patient's did report that he often times has difficulty over the weekend making it to his dialysis session on Sunday. It is unclear as to whether his dry weight has been challenged recently. The patient is currently on dialysis with tentative plans to remove several liters of fluid if tolerated by hemodynamics. Although he was placed transiently on BiPAP therapy, the patient has been weaned to his baseline 4 L/min. He remains afebrile. However, is reasonable to continue antimicrobials for 24 hours and then reassess for discontinuation. Continue scheduled bronchodilators. 2. End-stage renal disease on hemodialysis Continue dialysis support per nephrology recommendations. 3. Peripheral vascular disease with lower extremity wound Continue aspirin and Plavix. Follow-up with nursing surgical services director on outpatient basis regarding surgical intervention to left foot. 4. 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 Continue home medications as indicated. This note was generated with [employer] dictation software. It may contain incorrect words, spelling, and punctuation that were not noted in checking the note before signing. HPI Consult Data Date of Consult: 01/16/22 HPI Narrative Reason for Consultation: Acute on chronic hypoxemic respiratory failure HPI Narrative: The patient is a 76-year-old male, with a history as outlined below, who presented to the emergency department on January 16 with worsening shortness of breath. The patient has a known history of advanced stage COPD and is on maximum inhaler therapy on an outpatient basis. He has a baseline 4 L/min oxygen requirement. The patient did previously have COVID-19 in August 2021 and had been suffering from residual symptoms from that infection. The patient also has known end-stage renal disease, for which he is on hemodialysis. He has not missed any recent sessions. On presentation to the emergency department, the patient was noted to be afebrile and hemodynamically stable. Initial laboratory evaluation revealed an elevated white blood cell count of 15,000. Chest imaging demonstrated a moderate sized left-sided pleural effusion along with increased interstitial prominence. The patient was initially placed on BiPAP therapy while in the emergency department. He was started on empiric antimicrobials, scheduled bronchodilators and IV steroids. The patient was admitted to the progressive care unit for further management. COUNTS INCLUDE 234 BEDS AT THE [facility] Medical History (HFpEF) heart failure with preserved ejection fraction Acute blood loss anemia Acute on chronic respiratory failure with hypoxemia Acute respiratory failure Allergic rhinitis Anemia Anemia Atherosclerosis of coronary artery of [place] heart without angina pectoris Benign localized hyperplasia of prostate Carpal tunnel syndrome Chronic allergic rhinitis Chronic hypoxemic respiratory failure Chronic kidney disease, stage V requiring chronic dialysis Chronic otitis media Chronic steroid use CKD (chronic kidney disease) stage 4, GFR 15-29 ml/min Constipation COPD (chronic obstructive pulmonary disease) COPD (chronic obstructive pulmonary disease) Diabetes mellitus Dialysis patient Elevated troponin Epistaxis Essential (primary) hypertension Former smoker GERD (gastroesophageal reflux disease) GI bleed (06/28/19) HFrEF (heart failure with reduced ejection fraction) History of non-ST elevation myocardial infarction (NSTEMI) (02/03/20) History of prostate cancer Hyperlipidemia 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 Hyponatremia Incomplete right bundle branch block Insulin pump titration Ischemic cardiomyopathy penitentiary (current) use of insulin Low back pain Mobitz type I Wenckebach atrioventricular block Neuralgia Non-STEMI (non-ST elevated myocardial infarction) Nonallopathic lesion of lumbar region Nonallopathic lesion of rib cage Nonallopathic lesion of sacral region Nonallopathic lesion of thoracic region, not elsewhere classified NSVT (nonsustained ventricular tachycardia) Otalgia Otitis externa Overweight Pain in lower limb Paroxysmal atrial fibrillation (06/2019) Pedal edema Peripheral vascular insufficiency 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 Pulmonary nodule PVD (peripheral vascular disease) Reactive airway disease Serous otitis media Thoracic back pain Thoracic outlet syndrome Type I diabetes mellitus Urethral stricture Vitamin D deficiency Wax in ear Home Medications latanoprost 0.005 % eye drops 1 drp EACH EYE DAILY ml 11/15/17 [History Last Taken 03/25/20 06:00 1 DRP] brimonidine 0.2 % eye drops 1 drp LEFT EYE BID ml 10/01/19 [History Last Taken 05/05/21] timolol 0.5 % eye drops 1 drp EACH EYE DAILY ml 10/01/19 [History Last Taken 03/25/20 06:00 1 DRP] metoprolol succinate 25 mg tablet,extended release 24 hr 12.5 mg PO DAILY #45 tab 08/10/21 [Rx Last Taken Unknown] aspirin 81 mg PO DAILY 08/15/21 [History Last Taken Unknown] isosorbide mononitrate 30 mg tablet,extended release 24 hr 30 mg PO DAILY #90 tab 08/22/21 [Rx Last Taken Unknown] atorvastatin 80 mg tablet 80 mg PO QHS #90 tab 11/08/21 [Rx Last Taken Unknown] clopidogrel 75 mg tablet 75 mg PO DAILY #90 tab 11/08/21 [Rx Last Taken Unknown] albuterol sulfate 90 mcg/actuation aerosol inhaler 2 puff INHALATION Q4H PRN #8.5 g 11/15/21 [Rx Last Taken Unknown] fluticasone fur. 200 mcg-umeclid 62.5 mcg-vilant 25 mcg inhalat.powder 1 inh INHALATION DAILY #60 ea 11/15/21 [Rx Last Taken Unknown] insulin lispro 100 unit/mL subcutaneous solution 100 unit SC DAILY ml 01/12/22 [History Last Taken Unknown] Allergy/AdvReac Type Severity Reaction Status Date / Time amoxicillin [From Augmentin] Allergy Unknown Unknown Verified 01/16/22 06:48 clavulanic acid Allergy Unknown Unknown Verified 01/16/22 06:48 [From Augmentin] Sulfa (Sulfonamide Allergy Unknown Unknown Verified 01/16/22 06:48 Antibiotics) Family History Sister Diabetes Father Heart disease Surgical History H/O inguinal hernia repair H/O prostate biopsy History of appendectomy History of carpal tunnel surgery of left wrist History of coronary artery stent placement (06/29/19) History of femoropopliteal bypass (01/2021) History of left heart catheterization (03/30/20) Problem with dialysis access (05/05/21) S/P bilateral foot surgery S/P rotator cuff repair Social History (Updated 01/16/22 @ 08:54 by Torie Barba) household members: spouse housing: house Smoking Status: Former smoker quit date: 11/12/13 pack-years: 53 how long ago did patient quit smokin years ago second hand exposure: No alcohol intake: never substance use type: does not use caffeine: Yes Type: coffee Number of servings: 1 ROS Constitutional Constitutional: Reports malaise; Denies chills or fatigue Eyes Eyes: Denies blurry vision or change in vision ENT HEENT: Denies dizziness or epistaxis Cardiovascular Cardiovascular: Reports dyspnea; Denies chest pain or dizziness Respiratory/Chest Respiratory/Chest: Reports dyspnea; Denies cough Gastrointestinal Gastrointestinal: Denies abdominal pain, diarrhea, nausea or vomiting Genitourinary Genitourinary: Reports difficulty urinating Musculoskeletal Musculoskeletal: Denies arthralgias, back pain or joint pain Integumentary Integumentary: Reports lesions and wounds Neurologic Neurologic: Denies abnormal gait or abnormal speech Psychiatric Psychiatric: Reports anxiety Endocrine Endocrinology: Reports fatigue Hematologic/Lymphatic Hematologic/Lymphatic: Denies easy bleeding or easy bruising Physical Exam Const alert and no apparent distress Constitutional Narrative: Currently on his baseline 4 L/min. His is present at the bedside. Tolerating dialysis at the present time. General Appearance: cooperative HEENT normocephalic and head/scalp atraumatic Eyes PERRL, EOMs intact bilaterally and conjunctivae normal Neck supple General: trachea midline Chest inspection of chest normal Resp Auscultation: diminished lung sounds; Negative for rales, rhonchi or wheezes Cardio regular rate and regular rhythm Heart Sounds: murmur GI normal to inspection, nondistended, normoactive bowel sounds Extremity no clubbing, cyanosis or edema Skin Wound Narrative: Wound present on left foot Neuro oriented x3, CN's II-XII intact bilaterally and moves all extremities Psych cooperative and affect normal Lab / Micro Data Result Diagrams: 01/16/22 06:30 01/16/22 06:30 Labs: Laboratory Results - last 24 hr 01/16/22 06:30: WBC 14.9 H, RBC 3.47 L, Hgb 10.1 L, Hct 33.5 L, MCV 96.5 H, MCH 29.1, MCHC 30.1 L, RDW Std Deviation 60.5 H, RDW Coeff of Janel 17.2 H, Plt Count 292, MPV 10.7, Immature Gran % (Auto) 0.700, Neut % (Auto) 76.7 H, Lymph % (Auto) 12.4 L, Dewey % (Auto) 7.1, Eos % (Auto) 2.5, Baso % (Auto) 0.6, Absolute Neuts (auto) 11.4 H, Absolute Lymphs (auto) 1.84, Nucleated RBC % 0.1, Plt Morphology Comment CLUMPED, Anisocytosis 1+ 01/16/22 06:30: PT 13.1, INR 1.1, APTT 21.3 L 01/16/22 06:30: Sodium 132 L, Potassium 4.0, Chloride 94 L, Carbon Dioxide 25.0, Anion Gap 13, BUN 66 H, Creatinine 5.35 H, Estim Creat Clear Calc 11.38, Est GFR (MDRD) Af Amer 13 L, Est GFR (MDRD) Non-Af 11 L, BUN/Creatinine Ratio 12.3, Glucose 302 H, Calcium 8.8, Phosphorus 5.2 H, Magnesium 2.3 01/16/22 09:14: POC Glucose 292 H Micro: Microbiology 01/16/22 06:26 Mucosa - Nose Influenza Types A,B Direct FA (LEVI) - Final 01/16/22 06:26 Nasal Secretion SARS-CoV-2 Antigen (Rapid) - Final ABG Data ABG results: ABG 01/16/22 08:08 Specimen Type ART Sample Site R Radial pH 7.39 Bicarbonate Actual 26.5 H Total CO2 28 Base Excess 2 O2 Saturation 95 O2 % 30 ABG pCO2 43.4 ABG pO2 75 Price Test Positive Vent Mode BiLevel Radiology Impression Chest X-Ray 01/16/22 06:32 IMPRESSION: Left pleural effusion with adjacent atelectasis. Mild edema or less likely atypical pneumonia superimposed upon emphysema. Mild cardiomegaly Electronically Signed: Cooper Mejia MD at 7:47 EST Reading Location ID and State: [facility] [place] Tel , Service support , Charges/Coding Visit Charges Inpatient E&M: 62133 Init Hosp L3
[2022-01-16] MEDS: oxyCODONE 5 MG Tablet PO (10:39)
[2022-01-16] MEDS: Insulin Lispro 100 UNIT/ML INSULN.PEN SC ×3 (10:45→21:21)
[2022-01-16] MEDS: BRIMONIDINE 0.2% 5ML BOTTLE 1 DRP OPHTHALMIC ×2 (10:47→22:14)
--- NOTE | 2022-01-16 10:50 | CASEMGMT ---
RN CM Face to Face with patient for initial transition planning/care coordination assessment. RN CM introduced self and role at [facility]. Patient lying in bed, alert and oriented, at bedside. Patient willing to participate in assessment and is able to answer all questions appropriately. Care providers, pharmacy, and demographics verified. Patient wishes to discharge home, denies need for home health at this time. Patient states he has no further needs or concerns at this time. CM to follow for discharge planning needs that may arise. PCP: Sb Bolanos Specialists: Lamont Bolanos, assembler adjuster; Kelley, library information technician; Amy, social services; , geophysical engineer, Preferred Pharmacy: [facility] retail at discharge. [facility] Pres[facility] Benefit: yes Living Will/HPOA: yes, Cheyenne Massey LNOK: Living Arrangements: Patient lives with in a single story home with ramp to enter the home. Patient states he is independent at home. Transportation: , children DME/HHC: Patient has walker, pulse ox, home oxygen through [facility] with portability at 4lpm. Patient has HD at [facility] MWF at 1110. No previous HHC or SNF. Disposition Plan: Patient to discharge home with family support and follow-up plans in place. Will monitor for need for HHC. Xiomara ELIZABETH, RN, CM
--- NOTE | 2022-01-16 10:59 | CON.PCM.RE_ITS ---
Assessment & Plan Assessment/Plan (1) ESRD (end stage renal disease): PLAN: Seen on dialysis today. Chest x-ray is not impressive. Crit line on dialysis machine with initial steep decline but blood pressure is okay. Will attempt UF as tolerated. Anemia. Gets long-acting erythropoietin with dialysis. Blood pressure is under control. HPI Consult Data Date of Consult: 01/16/22 HPI Narrative HPI Narrative: DIVYA HUSAIN, is a 76 M who presents to the hospital with short ness of breath. History of ESRD, on dialysis Sunday, Sunday, Sunday schedule. Last dialysis was Sunday. Was uneventful. [place] okay up until yesterday. This morning he woke up and started having shortness of breath. Denies having any chest pain. Recently has peripheral vascular disease, ischemic toes, scheduled for amputation. Somewhat better now. Access is AV fistula. Seen on dialysis today. [facility] Medical History (HFpEF) heart failure with preserved ejection fraction Acute blood loss anemia Acute on chronic respiratory failure with hypoxemia Acute respiratory failure Allergic rhinitis Anemia Anemia Atherosclerosis of coronary artery of [place] heart without angina pectoris Benign localized hyperplasia of prostate Carpal tunnel syndrome Chronic allergic rhinitis Chronic hypoxemic respiratory failure Chronic kidney disease, stage V requiring chronic dialysis Chronic otitis media Chronic steroid use CKD (chronic kidney disease) stage 4, GFR 15-29 ml/min Constipation COPD (chronic obstructive pulmonary disease) COPD (chronic obstructive pulmonary disease) Diabetes mellitus Dialysis patient Elevated troponin Epistaxis Essential (primary) hypertension Former smoker GERD (gastroesophageal reflux disease) GI bleed (06/28/19) HFrEF (heart failure with reduced ejection fraction) History of non-ST elevation myocardial infarction (NSTEMI) (02/03/20) History of prostate cancer Hyperlipidemia 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 Hyponatremia Incomplete right bundle branch block Insulin pump titration Ischemic cardiomyopathy manager intermediate (current) use of insulin Low back pain Mobitz type I Wenckebach atrioventricular block Neuralgia Non-STEMI (non-ST elevated myocardial infarction) Nonallopathic lesion of lumbar region Nonallopathic lesion of rib cage Nonallopathic lesion of sacral region Nonallopathic lesion of thoracic region, not elsewhere classified NSVT (nonsustained ventricular tachycardia) Otalgia Otitis externa Overweight Pain in lower limb Paroxysmal atrial fibrillation (06/2019) Pedal edema Peripheral vascular insufficiency 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 Pulmonary nodule PVD (peripheral vascular disease) Reactive airway disease Serous otitis media Thoracic back pain Thoracic outlet syndrome Type I diabetes mellitus Urethral stricture Vitamin D deficiency Wax in ear Home Medications latanoprost 0.005 % eye drops 1 drp EACH EYE DAILY ml 11/15/17 [History Last Taken 03/25/20 06:00 1 DRP] brimonidine 0.2 % eye drops 1 drp LEFT EYE BID ml 10/01/19 [History Last Taken 05/05/21] timolol 0.5 % eye drops 1 drp EACH EYE DAILY ml 10/01/19 [History Last Taken 03/25/20 06:00 1 DRP] metoprolol succinate 25 mg tablet,extended release 24 hr 12.5 mg PO DAILY #45 tab 08/10/21 [Rx Last Taken Unknown] aspirin 81 mg PO DAILY 08/15/21 [History Last Taken Unknown] isosorbide mononitrate 30 mg tablet,extended release 24 hr 30 mg PO DAILY #90 tab 08/22/21 [Rx Last Taken Unknown] atorvastatin 80 mg tablet 80 mg PO QHS #90 tab 11/08/21 [Rx Last Taken Unknown] clopidogrel 75 mg tablet 75 mg PO DAILY #90 tab 11/08/21 [Rx Last Taken Unknown] albuterol sulfate 90 mcg/actuation aerosol inhaler 2 puff INHALATION Q4H PRN #8.5 g 11/15/21 [Rx Last Taken Unknown] fluticasone fur. 200 mcg-umeclid 62.5 mcg-vilant 25 mcg inhalat.powder 1 inh INHALATION DAILY #60 ea 11/15/21 [Rx Last Taken Unknown] insulin lispro 100 unit/mL subcutaneous solution 100 unit SC DAILY ml 01/12/22 [History Last Taken Unknown] Allergy/AdvReac Type Severity Reaction Status Date / Time amoxicillin [From Augmentin] Allergy Unknown Unknown Verified 01/16/22 06:48 clavulanic acid Allergy Unknown Unknown Verified 01/16/22 06:48 [From Augmentin] Sulfa (Sulfonamide Allergy Unknown Unknown Verified 01/16/22 06:48 Antibiotics) Family History Sister Diabetes Father Heart disease Surgical History H/O inguinal hernia repair H/O prostate biopsy History of appendectomy History of carpal tunnel surgery of left wrist History of coronary artery stent placement (06/29/19) History of femoropopliteal bypass (01/2021) History of left heart catheterization (02/09/20) Problem with dialysis access (05/05/21) S/P bilateral foot surgery S/P rotator cuff repair Social History (Updated 01/16/22 @ 08:54 by Torie Barba) household members: spouse housing: house Smoking Status: Former smoker quit date: 11/12/13 pack-years: 55 how long ago did patient quit smokin years ago second hand exposure: No alcohol intake: never substance use type: does not use caffeine: Yes Type: coffee Number of servings: 1 ROS ROS Narrative Negative except history Physical Exam Narrative Alert awake oriented x 3 no obvious distress no pallor no icterus no JVD s1s2 no murmurs lungs clear abdomen soft no organomegaly no edema + cyanosis Lab / Micro Data Result Diagrams: 01/16/22 06:30 01/16/22 06:30 Labs: Laboratory Results - last 24 hr 01/16/22 06:30: WBC 14.9 H, RBC 3.47 L, Hgb 10.1 L, Hct 33.5 L, MCV 96.5 H, MCH 29.1, MCHC 30.1 L, RDW Std Deviation 60.5 H, RDW Coeff of Janel 17.2 H, Plt Count 292, MPV 10.7, Immature Gran % (Auto) 0.700, Neut % (Auto) 76.7 H, Lymph % (Auto) 12.4 L, [place] % (Auto) 7.1, Eos % (Auto) 2.5, Baso % (Auto) 0.6, Absolute Neuts (auto) 11.4 H, Absolute Lymphs (auto) 1.84, Nucleated RBC % 0.1, Plt Morphology Comment CLUMPED, Anisocytosis 1+ 01/16/22 06:30: PT 13.1, INR 1.1, APTT 21.3 L 01/16/22 06:30: Sodium 132 L, Potassium 4.0, Chloride 94 L, Carbon Dioxide 25.0, Anion Gap 13, BUN 66 H, Creatinine 5.35 H, Estim Creat Clear Calc 11.38, Est GFR (MDRD) Af Amer 13 L, Est GFR (MDRD) Non-Af 11 L, BUN/Creatinine Ratio 12.3, Glucose 302 H, Calcium 8.8, Phosphorus 5.2 H, Magnesium 2.3 01/16/22 09:14: POC Glucose 292 H Micro: Microbiology 01/16/22 06:26 Mucosa - Nose Influenza Types A,B Direct FA (LEVI) - Final 01/16/22 06:26 Nasal Secretion SARS-CoV-2 Antigen (Rapid) - Final ABG Data ABG results: ABG 01/16/22 08:08 Specimen Type ART Sample Site R Radial pH 7.39 Bicarbonate Actual 26.5 H Total CO2 28 Base Excess 2 O2 Saturation 95 O2 % 30 ABG pCO2 43.4 ABG pO2 75 Price Test Positive Vent Mode BiLevel Radiology Impression Chest X-Ray 01/16/22 06:32 IMPRESSION: Left pleural effusion with adjacent atelectasis. Mild edema or less likely atypical pneumonia superimposed upon emphysema. Mild cardiomegaly Electronically Signed: Cooper Mejia MD at 7:47 EST Reading Location ID and State: [facility] [place] Tel , Service support ,
[2022-01-16 11:01] LABS: Bedside Glucose 196 mg/dL (74-106)
[2022-01-16] MEDS: Timolol 0.5% 5ML OPTH.BTL 1 DRP OPHTHALMIC (11:46)
[2022-01-16] MEDS: Morphine 4 MG/ML Syringe IV ×2 (12:54→21:24)
[2022-01-16] MEDS: 0.9% Saline Lock 10 ML Syringe IV ×4 (12:55→22:46)
[2022-01-16] MEDS: Isosorbide Mononitrate 30 MG Tablet PO (13:50)
[2022-01-16] MEDS: Metoprolol(XL)Succ 25 MG Tablet 12.5 MG PO (13:50)
[2022-01-16] MEDS: Clopidogrel Bisulfate 75 MG Tablet PO (13:50)
[2022-01-16] MEDS: Aspirin E.C. 81 MG Tablet PO (13:50)
--- NOTE | 2022-01-16 14:00 | NURSING ---
AM medications late d/t pt getting dialysis.
--- NOTE | 2022-01-16 14:17 | DIALYSIS ---
Hemodialysis x3hrs 40mins completed at 1320 on a 3K bath, tolerated well, UF 3300mL, accessed via ANGY AVF using 15G needles, worked well, needles pulled post tx and stasis achieved without issue
[2022-01-16] MEDS: Heparin Injection (Vial) 5,000 UNIT/ML VIAL 5000 UNIT SC ×2 (15:25→22:13)
[2022-01-16 16:50] LABS: Bedside Glucose 344 mg/dL (74-106)
[2022-01-16] MEDS: Bisacodyl 5 MG Tablet 10 MG PO (18:51)
[2022-01-16] MEDS: Insulin Lispro 100 UNIT/ML INSULN.PEN 10 UNIT SC (21:23)
[2022-01-16] MEDS: Latanoprost 0.005% 1 Bottle 1 DRP OPHTHALMIC (22:13)
[2022-01-16] MEDS: Atorvastatin Calcium 80 MG Tablet PO (22:13)
[2022-01-16 22:33] LABS: Glucose 576 mg/dL (74-106)
[2022-01-16 22:56] LABS: Bedside Glucose > 500 mg/dL (74-106)
[2022-01-16 22:56] LABS: Bedside Glucose 472 mg/dL (74-106)
[2022-01-16 22:56] LABS: Bedside Glucose > 500 mg/dL (74-106)
[2022-01-16] MEDS: Insulin Lispro 100 UNIT/ML INSULN.PEN 15 UNIT SC (23:07)
[2022-01-17] VITALS (20 sets, daily range): BP systolic 104–116; BP diastolic 53–64; PULSE 70–94; RESP 16–20; TEMP 36.4–36.8; O2SAT 96–99
[2022-01-17] MEDS: oxyCODONE 5 MG Tablet PO ×3 (00:08→16:12)
[2022-01-17 00:16] LABS: Bedside Glucose 458 mg/dL (74-106)
[2022-01-17] MEDS: Sodium Chloride 0.65% 1 SPRAY SPRAY.BTL 2 SPRAY NASAL (02:37)
[2022-01-17 02:41] LABS: Bedside Glucose 383 mg/dL (74-106)
[2022-01-17] MEDS: Ipratropium/Albuterol Sulfate 3 ML AMPUL.NEB INHALATION ×6 (03:28→22:43)
[2022-01-17] MEDS: Acetaminophen 325 MG Tablet 650 MG PO ×2 (03:44→16:12)
[2022-01-17] MEDS: Insulin Lispro 100 UNIT/ML INSULN.PEN SC ×4 (06:29→22:11)
[2022-01-17] MEDS: Heparin Injection (Vial) 5,000 UNIT/ML VIAL 5000 UNIT SC ×3 (06:29→22:14)
[2022-01-17 06:41] LABS: Bedside Glucose 422 mg/dL (74-106)
[2022-01-17 07:12] LABS: Anion Gap 13 (5-15); BUN 68 mg/dL (7-18); BUN/Creat Ratio 17.2 RATIO (10-20); Calcium,Total 8.2 mg/dL (8.5-10.1); Chloride 92 mmol/L (98-107); Creatinine, Serum 3.95 mg/dL (0.70-1.30); EST Glomerular Filtration Rate 16 mL/min (>60); Est Glom Filt Rate - Afr Amer 19 mL/min (>60); Estimated Creatinine Clearance 14.91 ml/min; Glucose 365 mg/dL (74-106); Potassium 4.6 mmol/L (3.5-5.1); Sodium Level 131 mmol/L (136-145)
--- NOTE | 2022-01-17 07:45 | PN.CC_ITS ---
Assessment & Plan Assessment/Plan (1) Acute on chronic respiratory failure with hypoxemia: PLAN: RECOMMENDATIONS: 1. Wean supplemental oxygen as tolerated. 2. Continue hemodialysis per nephrology recommendations. 3. Okay from my perspective to discontinue antimicrobials. 4. Continue scheduled bronchodilators and steroids for now. Okay to transition to prednisone. 5. Encourage incentive spirometer use while in bed and mobilize patient as tolerated. IMPRESSIONS: 1. Acute on chronic hypoxemic respiratory failure The patient reported that he awoke abruptly from sleep last night feeling short of breath. The exact etiology for his acute presentation is unclear. However, chest imaging did reveal interstitial prominence, cardiomegaly and a left-sided pleural effusion, which could certainly suggest a component of hypervolemia, in the setting of end-stage renal disease. The patient's did report that he often times has difficulty over the weekend making it to his dialysis session on Sunday. It is unclear as to whether his dry weight has been challenged recently. The patient did report symptomatic improvement following hemodialysis with 3 L of fluid removed. He is maintaining appropriate oxygen saturations on his baseline 4 L/min. He remains afebrile. Antibiotics can be discontinued from my perspective. Continue scheduled bronchodilators. Transition from IV Solu-Medrol to prednisone 40 mg daily. 2. End-stage renal disease on hemodialysis Continue dialysis support per nephrology recommendations. 3. Peripheral vascular disease with lower extremity wound Continue aspirin and Plavix. Podiatry consultation has been placed. 4. 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 Continue home medications as indicated. This note was generated with [employer] dictation software. It may contain incorrect words, spelling, and punctuation that were not noted in checking the note before signing. Subjective Subjective The patient was seen and examined at the bedside this morning. Events from the last 24 hours have been reviewed. The patient is currently afebrile, hemodynamically stable and maintaining appropriate oxygen saturations on his baseline oxygen requirement of 4 L/min. The patient remains on empiric antimicrobials along with scheduled bronchodilators and IV steroids. The patient did tolerate dialysis yesterday with 3.3 L of fluid removed. The patient did report that he felt much better yesterday following dialysis from a breathing perspective. Objective Data Objective Data The patient's most recent lab work, culture data and imaging studies have all been personally reviewed. Surface echocardiogram from August 2021 demonstrated stage I diastolic dysfunction with an ejection fraction of 40%, pulmonary artery systolic pressure of 36 mmHg and mild to moderate aortic stenosis. Covid rapid antigen testing was negative. Rapid influenza screen was negative. Blood cultures are pending. Vital Signs: Vital Signs Temp Pulse Resp BP Pulse Ox 98.2 F 80 18 104/53 L 99 01/17/22 03:45 01/17/22 03:45 01/17/22 03:45 01/17/22 03:45 01/17/22 03:45 Oxygen Flow Rate (L/min) 4 Oxygen Delivery Method Nasal Cannula Weight: 71.3 kg Body Mass Index (BMI) 24.0 Intake & Output: Intake and Output for Last 24 Hours 01/15/22 01/16/22 01/17/22 23:59 23:59 23:59 Intake Total 1195 / 1195 150 / 150 Output Total 3300 / 3300 Balance -2105 / -2105 150 / 150 Lab / Micro Data Attestation: I reviewed the patient's lab results. Result Diagrams: 01/16/22 06:30 01/17/22 05:22 Labs: Laboratory Results - last 24 hr 01/16/22 09:14: POC Glucose 292 H 01/16/22 10:43: POC Glucose 196 H 01/16/22 16:42: POC Glucose 344 H 01/16/22 21:11: POC Glucose > 500 H* 01/16/22 21:30: Glucose 576 H* 01/16/22 22:04: POC Glucose > 500 H* 01/16/22 22:48: POC Glucose 472 H* 01/17/22 00:11: POC Glucose 458 H* 01/17/22 02:35: POC Glucose 383 H 01/17/22 05:22: Sodium 131 L, Potassium 4.6, Chloride 92 L, Carbon Dioxide 26.0, Anion Gap 13, BUN 68 H, Creatinine 3.95 H, Estim Creat Clear Calc 14.91, Est GFR (MDRD) Af Amer 19 L, Est GFR (MDRD) Non-Af 16 L, BUN/Creatinine Ratio 17.2, Glucose 365 H, Calcium 8.2 L 01/17/22 06:27: POC Glucose 422 H Micro: Microbiology 01/16/22 06:26 Mucosa - Nose Influenza Types A,B Direct FA (LEVI) - Final 01/16/22 06:26 Nasal Secretion SARS-CoV-2 Antigen (Rapid) - Final ABG Data ABG results: ABG 01/16/22 08:08 Specimen Type ART Sample Site R Radial pH 7.39 Bicarbonate Actual 26.5 H Total CO2 28 Base Excess 2 O2 Saturation 95 O2 % 30 ABG pCO2 43.4 ABG pO2 75 Price Test Positive Vent Mode BiLevel Radiography Diagnostic Testing: Radiology Impression Chest X-Ray 01/16/22 06:32 IMPRESSION: Left pleural effusion with adjacent atelectasis. Mild edema or less likely atypical pneumonia superimposed upon emphysema. Mild cardiomegaly Electronically Signed: Cooper Mejia MD at 7:47 EST , Physical Exam Const alert and no apparent distress General Appearance: cooperative HEENT normocephalic and head/scalp atraumatic Eyes PERRL, EOMs intact bilaterally and conjunctivae normal Neck supple General: trachea midline Chest inspection of chest normal Resp Auscultation: diminished lung sounds; Negative for rales, rhonchi or wheezes Cardio regular rate and regular rhythm Heart Sounds: murmur GI normal to inspection, nondistended, normoactive bowel sounds Extremity no clubbing, cyanosis or edema Skin Wound Narrative: Wound present on left foot. Necrotic appearing toes. Neuro oriented x3, CN's II-XII intact bilaterally and moves all extremities Psych cooperative and affect normal Charges/Coding Visit Charges Inpatient E&M: 52010 Subs Hosp L2
[2022-01-17] MEDS: Metoprolol(XL)Succ 25 MG Tablet 12.5 MG PO (08:22)
[2022-01-17] MEDS: Clopidogrel Bisulfate 75 MG Tablet PO (08:23)
[2022-01-17] MEDS: Aspirin E.C. 81 MG Tablet PO (08:24)
[2022-01-17] MEDS: Isosorbide Mononitrate 30 MG Tablet PO (08:24)
[2022-01-17] MEDS: Timolol 0.5% 5ML OPTH.BTL 1 DRP OPHTHALMIC (08:25)
[2022-01-17] MEDS: BRIMONIDINE 0.2% 5ML BOTTLE 1 DRP OPHTHALMIC ×2 (08:26→22:02)
[2022-01-17 10:51] LABS: Bedside Glucose 448 mg/dL (74-106)
[2022-01-17] MEDS: Lactulose 20 GM/30 ML UDC 30 GM PO ×4 (11:43→23:07)
--- NOTE | 2022-01-17 12:00 | PCM.PN.REN ---
Subjective Subjective No new complaints. Objective Data Objective Data Vital Signs: Vital Signs Temp Pulse Resp BP Pulse Ox 97.5 F L 70 18 106/61 98 01/17/22 09:45 01/17/22 11:15 01/17/22 11:15 01/17/22 09:45 01/17/22 09:45 Oxygen Flow Rate (L/min) 4 Oxygen Delivery Method Nasal Cannula Weight: 71.3 kg Body Mass Index (BMI) 24.0 Intake & Output: Intake and Output for Last 24 Hours 01/15/22 01/16/22 01/17/22 23:59 23:59 23:59 Intake Total 1195 / 1195 150 / 150 Output Total 3300 / 3300 Balance -2105 / -2105 150 / 150 Lab / Micro Data Result Diagrams: 01/16/22 06:30 01/17/22 05:22 Labs: Laboratory Results - last 24 hr 01/16/22 16:42: POC Glucose 344 H 01/16/22 21:11: POC Glucose > 500 H* 01/16/22 21:30: Glucose 576 H* 01/16/22 22:04: POC Glucose > 500 H* 01/16/22 22:48: POC Glucose 472 H* 01/17/22 00:11: POC Glucose 458 H* 01/17/22 02:35: POC Glucose 383 H 01/17/22 05:22: Sodium 131 L, Potassium 4.6, Chloride 92 L, Carbon Dioxide 26.0, Anion Gap 13, BUN 68 H, Creatinine 3.95 H, Estim Creat Clear Calc 14.91, Est GFR (MDRD) Af Amer 19 L, Est GFR (MDRD) Non-Af 16 L, BUN/Creatinine Ratio 17.2, Glucose 365 H, Calcium 8.2 L 01/17/22 06:27: POC Glucose 422 H 01/17/22 10:45: POC Glucose 448 H Micro: Microbiology 01/16/22 06:26 Mucosa - Nose Influenza Types A,B Direct FA (LEVI) - Final 01/16/22 06:26 Nasal Secretion SARS-CoV-2 Antigen (Rapid) - Final Physical Exam Narrative Alert awake oriented x 3 no obvious distress no pallor no icterus no JVD s1s2 no murmurs lungs clear abdomen soft no organomegaly no edema no cyanosis Assessment & Plan Assessment/Plan (1) ESRD (end stage renal disease): PLAN: S/p dialysis yesterday. [place] better after fluid removal. Will adjust dry weight lower. Hemoglobin is acceptable. Phosphate is acceptable. Volume status looks good. Developed hyperglycemia due to steroids. Management as per primary. (2) COPD (chronic obstructive pulmonary disease): QUALIFIERS: COPD type: unspecified COPD Qualified Code(s): J44.9 - Chronic obstructive pulmonary disease, unspecified
--- NOTE | 2022-01-17 12:17 | CON.PCM_ITS ---
Assessment & Plan Assessment/Plan (1) Dry gangrene: PLAN: Patient examined and evaluated, all findings discussed with patient in detail. Patient has tissue necrosis from severe chronic PAD on left side. Per patient, he has a bypass on that side. I will request medical records from Dr. Dick's office. Based on clinical examination, I would recommend a below the knee amputation as a transmetatarsal amputation likely wouldn't heal and this would allow the patient to return to a functional status sooner. I recommend arterial study to further evaluate blood flow. I recommend vascular consultation (Dr. Dixon) to provide a second opinion, otherwise, patient and are prepared to move forward as the patient has significant rest pain and is concerned for risk of severe/life threatening infection with necrotic toes. I will plan to follow patient daily while in the hospital. (2) Peripheral arterial disease: HPI Consult Data Date of Consult: 01/17/22 HPI Narrative HPI Narrative: DIVYA HUSAIN, is a 76 M diabetic w/ ESRD, Neuropathy and severe PAD who presents with dry gangrene of his left foot. Patient is followed by a Vascular surgeon who has performed multiple endovascular procedures to his left lower extremity and ultimately underwent bypass. Dr. Dick suggested that the patient has no other options from a revascularization standpoint and should consider BKA. Patient notes pain at rest slightly alleviated with dependency. Patient notes darkening of the skin on his forefoot with necrosis to his distal toes. His foot is cold on the left side. He denies any constitutional symptoms and notes some improvement in his shortness of breath. No other complaints at this time. [facility] Medical History (Updated 01/17/22 @ 12:[address] Basilio Avila, COLBY) (HFpEF) heart failure with preserved ejection fraction Acute blood loss anemia Acute on chronic respiratory failure with hypoxemia Acute respiratory failure Allergic rhinitis Anemia Anemia Atherosclerosis of coronary artery of [place] heart without angina pectoris Benign localized hyperplasia of prostate Carpal tunnel syndrome Chronic allergic rhinitis Chronic hypoxemic respiratory failure Chronic kidney disease, stage V requiring chronic dialysis Chronic otitis media Chronic steroid use CKD (chronic kidney disease) stage 4, GFR 15-29 ml/min Constipation COPD (chronic obstructive pulmonary disease) COPD (chronic obstructive pulmonary disease) Diabetes mellitus Dialysis patient Elevated troponin Epistaxis Essential (primary) hypertension Former smoker GERD (gastroesophageal reflux disease) GI bleed (06/28/19) HFrEF (heart failure with reduced ejection fraction) History of non-ST elevation myocardial infarction (NSTEMI) (02/03/20) History of prostate cancer Hyperlipidemia 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 Hyponatremia Incomplete right bundle branch block Insulin pump titration Insulin pump titration Ischemic cardiomyopathy 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 Low back pain Mobitz type I Wenckebach atrioventricular block Neuralgia Non-STEMI (non-ST elevated myocardial infarction) Nonallopathic lesion of lumbar region Nonallopathic lesion of rib cage Nonallopathic lesion of sacral region Nonallopathic lesion of thoracic region, not elsewhere classified NSVT (nonsustained ventricular tachycardia) Otalgia Otitis externa Overweight Pain in lower limb Paroxysmal atrial fibrillation (06/2019) Pedal edema Peripheral vascular insufficiency 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 Pulmonary nodule PVD (peripheral vascular disease) Reactive airway disease Serous otitis media Thoracic back pain Thoracic outlet syndrome Type I diabetes mellitus Urethral stricture Vitamin D deficiency Wax in ear Home Medications latanoprost 0.005 % eye drops 1 drp EACH EYE DAILY ml 11/15/17 [History Last Taken 03/25/20 06:00 1 DRP] brimonidine 0.2 % eye drops 1 drp LEFT EYE BID ml 10/01/19 [History Last Taken 05/05/21] timolol 0.5 % eye drops 1 drp EACH EYE DAILY ml 10/01/19 [History Last Taken 03/25/20 06:00 1 DRP] metoprolol succinate 25 mg tablet,extended release 24 hr 12.5 mg PO DAILY #45 tab 08/10/21 [Rx Last Taken Unknown] aspirin 81 mg PO DAILY 08/15/21 [History Last Taken Unknown] isosorbide mononitrate 30 mg tablet,extended release 24 hr 30 mg PO DAILY #90 tab 08/22/21 [Rx Last Taken Unknown] atorvastatin 80 mg tablet 80 mg PO QHS #90 tab 11/08/21 [Rx Last Taken Unknown] clopidogrel 75 mg tablet 75 mg PO DAILY #90 tab 11/08/21 [Rx Last Taken Unknown] albuterol sulfate 90 mcg/actuation aerosol inhaler 2 puff INHALATION Q4H PRN #8.5 g 11/15/21 [Rx Last Taken Unknown] fluticasone fur. 200 mcg-umeclid 62.5 mcg-vilant 25 mcg inhalat.powder 1 inh INHALATION DAILY #60 ea 11/15/21 [Rx Last Taken Unknown] insulin lispro 100 unit/mL subcutaneous solution 100 unit SC DAILY ml 01/12/22 [History Last Taken Unknown] Allergy/AdvReac Type Severity Reaction Status Date / Time amoxicillin [From Augmentin] Allergy Unknown Unknown Verified 01/16/22 06:48 clavulanic acid Allergy Unknown Unknown Verified 01/16/22 06:48 [From Augmentin] Sulfa (Sulfonamide Allergy Unknown Unknown Verified 01/16/22 06:48 Antibiotics) Family History Sister Diabetes Father Heart disease Surgical History H/O inguinal hernia repair H/O prostate biopsy History of appendectomy History of carpal tunnel surgery of left wrist History of coronary artery stent placement (06/29/19) History of femoropopliteal bypass (01/2021) History of left heart catheterization (02/09/20) Problem with dialysis access (05/05/21) S/P bilateral foot surgery S/P rotator cuff repair Social History (Updated 01/16/22 @ 08:54 by Torie Barba) household members: spouse housing: house Smoking Status: Former smoker quit date: 11/12/13 pack-years: 55 how long ago did patient quit smokin years ago second hand exposure: No alcohol intake: never substance use type: does not use caffeine: Yes Type: coffee Number of servings: 1 Physical Exam Narrative Patient alert and oriented to person, place and time. Patient is ambulatory. Vascular: Non-Palpable DP/PT pulses on left. Non-dopplerable DP/PT/PP on left foot. Foot cold to touch extending to ankle. Neurologic: Light touch and protective sensation absent to bilateral feet. Dermatologic: Distal digital necrosis noted w/ mottling extending into midfoot. No acute signs of infection or deep probing. Lab / Micro Data Result Diagrams: 01/16/22 06:30 01/17/22 05:22 Labs: Laboratory Results - last 24 hr 01/16/22 16:42: POC Glucose 344 H 01/16/22 21:11: POC Glucose > 500 H* 01/16/22 21:30: Glucose 576 H* 01/16/22 22:04: POC Glucose > 500 H* 01/16/22 22:48: POC Glucose 472 H* 01/17/22 00:11: POC Glucose 458 H* 01/17/22 02:35: POC Glucose 383 H 01/17/22 05:22: Sodium 131 L, Potassium 4.6, Chloride 92 L, Carbon Dioxide 26.0, Anion Gap 13, BUN 68 H, Creatinine 3.95 H, Estim Creat Clear Calc 14.91, Est GFR (MDRD) Af Amer 19 L, Est GFR (MDRD) Non-Af 16 L, BUN/Creatinine Ratio 17.2, Glucose 365 H, Calcium 8.2 L 01/17/22 06:27: POC Glucose 422 H 01/17/22 10:45: POC Glucose 448 H
--- NOTE | 2022-01-17 12:33 | ART_ITS ---
Reason For Study: PVD Procedure A bilateral lower extremity continuous wave Doppler with analog waveform analysis,segmental pressures,and ankle brachial indexes without exercise. Avoid segmental pressures/VANCE due to Hx bypass per Dr. ford. Left Segmental Pressures COUNSELING DIRECTOR and DPA are absent. Right Segmental Pressures The right dorsalis pedis waveforms are monophasic. The right posterior tibial artery waveforms are monophasic. VL/Lower Ext Art Exam w/o Exercis Interpretation Summary Right ankle with monophasic flow noted. No segmental pressures were checked. Ordering Physician: Basilio Avila Performed By: Raúl Richards RVT
[2022-01-17 14:27] LABS: Absolute Lymphocyte Count 0.27 X10^3/uL (0.83-4.51); Basophil# 0.01 X10^3/uL; Basophil% 0.1 % (0-1); Hematocrit 27.5 % (40-54); Hemoglobin 7.7 g/dL (13.0-16.5); Lymphocyte # 0.27 X10^3/ul (0.83-4.51); Lymphocyte % 3.8 % (19-41); Mean Corpuscular Hgb 28.4 pg (27.0-32.0); Mean Corpuscular Volume 101.5 fL (80-94); Mean Platelet Vol. 10.1 fl (6.2-12.0); Monocyte# 0.78 X10^3/uL; NRBC Flagged by Analyzer 0 % (0-5); Neutrophil % 84.7 % (47-70); POSITIVE DIFFERENTIAL YES; POSITIVE MORPHOLOGY YES; Platelet Count 181 K/mm3 (150-450); RBC Distribution Width CV 17.4 % (11.6-14.6); RBC Distribution Width SD 65.1 fl (35.1-43.9); Red Blood Count 2.71 M/mm3 (4.6-6.2); White Blood Count 7.1 K/mm3 (4.4-11.0)
[2022-01-17 14:29] LABS: Differential Indicated SCAN CRITERIA MET
[2022-01-17 14:48] LABS: Anisocytosis 1+; Hypochromasia 1+; Macrocytosis 1+
[2022-01-17 16:36] LABS: Bedside Glucose 423 mg/dL (74-106)
--- NOTE | 2022-01-17 18:20 | PN.HOSP_ITS ---
Subjective Subjective Patient was seen and examined today, he states he is breathing better today, he states he took more fluid off during dialysis yesterday than usual. I talked to the patient and his about seeing podiatry while he is in the hospital here due to his ecchymotic left foot, I had Dr. Avila see him today, vascular studies were ordered and patient has little circulation to the left foot. I took the liberty of calling Dr. Lacy regarding plans for a below the knee amputation. Patient is okay with this as is his . Patient has been constipated, he requested a laxative I placed him on lactulose. Objective Data Objective Data Vital Signs: Vital Signs Temp Pulse Resp BP Pulse Ox 98.0 F 82 20 H 116/59 L 96 01/17/22 15:45 01/17/22 15:45 01/17/22 15:45 01/17/22 15:45 01/17/22 15:45 Oxygen Flow Rate (L/min) 3 Oxygen Delivery Method Nasal Cannula Weight: 71.3 kg Body Mass Index (BMI) 24.0 Intake & Output: Intake and Output for Last 24 Hours 01/15/22 01/16/22 01/17/22 23:59 23:59 23:59 Intake Total 1195 / 1195 1400 / 1400 Output Total 3300 / 3300 Balance -2105 / -2105 1400 / 1400 Lab / Micro Data Result Diagrams: 01/17/22 05:22 01/17/22 05:22 Labs: Laboratory Results - last 24 hr 01/16/22 21:11: POC Glucose > 500 H* 01/16/22 21:30: Glucose 576 H* 01/16/22 22:04: POC Glucose > 500 H* 01/16/22 22:48: POC Glucose 472 H* 01/17/22 00:11: POC Glucose 458 H* 01/17/22 02:35: POC Glucose 383 H 01/17/22 05:22: WBC 7.1, RBC 2.71 L, Hgb 7.7 L, Hct 27.5 L, MCV 101.5 H D, MCH 28.4, MCHC 28.0 L D, RDW Std Deviation 65.1 H, RDW Coeff of Janel 17.4 H, Plt Count 181, MPV 10.1, Immature Gran % (Auto) 0.400, Neut % (Auto) 84.7 H, Lymph % (Auto) 3.8 L, [place] % (Auto) 11.0 H, Eos % (Auto) 0.0, Baso % (Auto) 0.1, Absolute Neuts (auto) 6.0, Absolute Lymphs (auto) 0.27 L, Nucleated RBC % 0, Hypochromasia 1+, Anisocytosis 1+, Macrocytosis 1+ 01/17/22 05:22: Sodium 131 L, Potassium 4.6, Chloride 92 L, Carbon Dioxide 26.0, Anion Gap 13, BUN 68 H, Creatinine 3.95 H, Estim Creat Clear Calc 14.91, Est GFR (MDRD) Af Amer 19 L, Est GFR (MDRD) Non-Af 16 L, BUN/Creatinine Ratio 17.2, Glucose 365 H, Calcium 8.2 L 01/17/22 06:27: POC Glucose 422 H 01/17/22 10:45: POC Glucose 448 H 01/17/22 16:16: POC Glucose 423 H Micro: Microbiology 01/16/22 06:26 Mucosa - Nose Influenza Types A,B Direct FA (LEVI) - Final 01/16/22 06:26 Nasal Secretion SARS-CoV-2 Antigen (Rapid) - Final Physical Exam Const alert, oriented x3, no apparent distress and average body habitus General Appearance: cooperative, well kempt and well developed Orientation / Consciousness: awake, oriented to person, oriented to place and oriented to time HEENT normocephalic and moist oral mucous membranes Eyes PERRL, EOMs intact bilaterally and conjunctivae normal Neck nuchal rigidity, supple, no JVD and thyroid normal General: trachea midline Resp normal respiratory effort, no retractions, no use of accessory muscles and clear to auscultation bilaterally Auscultation: Negative for rales, rhonchi or wheezes Cardio regular rate, regular rhythm, S1 normal heart sound, S2 normal heart sound, no murmurs, no rub and no gallops GI normal to inspection, nondistended, normoactive bowel sounds, soft to palpation, non-tender and non-distended Extremity Extremity Narrative: There is ecchymosis noted of the patient's left foot, this left foot is cool to the touch when compared with the right foot Skin Skin Narrative: Left foot is cool and ecchymotic, there are areas of dry gangrene over the patient's toes on that foot General Skin Exam: no breakdown Neuro oriented x3, CN's II-XII intact bilaterally, no focal motor deficits and no sensory deficits noted Sensorium / Orientation: awake and alert Speech: speech normal Psych affect normal Assessment & Plan Assessment/Plan (1) Peripheral arterial disease: (2) Acute on chronic respiratory failure with hypoxemia: PLAN: 1. Acute on chronic hypoxic respiratory failure-etiology unclear at this point, it is possible that the patient was fluid overloaded, he is improved after dialysis yesterday. Pulmonary medicine is continuing to follow the patient, it was recommended by pulmonary medicine to discontinue the antimicrobials. Zosyn was discontinued today. Patient is now on prednisone and remains on bronchodilators. I discussed this with pulmonary medicine and I will stop his prednisone due to his elevated blood sugars. #2 chronic obstructive pulmonary disease-again patient will be kept on aerosol treatments, patient's prednisone will be stopped after discussion with pulmonary medicine about it. #3 end-stage renal disease on dialysis-patient will be seen by nephrology, he will be dialyzed tomorrow #4 peripheral vascular disease-patient is currently on Plavix and aspirin-this will be stopped at the advice of orthopedic surgery, patient is being seen by orthopedic surgery for below the knee amputation on the left, podiatry is also seeing the patient. #5 coronary artery disease, patient will remain on his long-acting nitrate and metoprolol #6 glaucoma-patient will remain on his timolol eyedrops #7 dry gangrene of the toes of the left foot-no treatment necessary at this time for these areas, family states that his outpatient physician is considering a partial amputation of the left foot in the near future. #8 type 2 diabetes-patient is currently on basal insulin and regular insulin via sliding scale, I will have to increase the amount of insulin the patient is getting, his blood sugars are still not under adequate control. #9 chronic congestive heart failure with preserved ejection fraction-no specific treatment will be given to the patient for this, he produces very little urine, he remains on dialysis Charges/Coding Visit Charges Inpatient E&M: 64379 Subs Hosp L3
[2022-01-17 19:48] LABS: Hemoglobin A1c 6.5 % (3.8-5.6)
--- NOTE | 2022-01-17 20:13 | CON.PCM.OR_ITS ---
HPI Consult Data Date of Consult: 01/17/22 HPI Narrative HPI Narrative: DIVYA HUSAIN is a 76-year-old male with approximately 1 year of vascular claudication requiring multiple attempts at revascularization of his left lower extremity. He was admitted for this hospital course due to shortness of breath which has since dramatically improved. Patient has an advanced history of COPD, chronic kidney disease on dialysis, insulin-dependent diabetic. Former smoker, no tobacco use at this time. I was asked to see the patient to discuss below-knee amputation on the left. Patient expressed interest in a below-knee amputation. He states Dr. Dick, his vascular surgeon states that is his only option and further revascularization attempts are futile. He states normally his glucose is well controlled at home with a recent A1c being in the sixes. Patient takes aspirin and Plavix for peripheral vascular disease. Denies any constitutional symptoms at this time including fevers, chills, nausea vomiting, chest pain or shortness of breath. Patient does wear oxygen at home, 3 L. [facility] Medical History (HFpEF) heart failure with preserved ejection fraction Acute blood loss anemia Acute on chronic respiratory failure with hypoxemia Acute respiratory failure Allergic rhinitis Anemia Anemia Atherosclerosis of coronary artery of [place] heart without angina pectoris Benign localized hyperplasia of prostate Carpal tunnel syndrome Chronic allergic rhinitis Chronic hypoxemic respiratory failure Chronic kidney disease, stage V requiring chronic dialysis Chronic otitis media Chronic steroid use CKD (chronic kidney disease) stage 4, GFR 15-29 ml/min Constipation COPD (chronic obstructive pulmonary disease) COPD (chronic obstructive pulmonary disease) Diabetes mellitus Dialysis patient Elevated troponin Epistaxis Essential (primary) hypertension Former smoker GERD (gastroesophageal reflux disease) GI bleed (06/28/19) HFrEF (heart failure with reduced ejection fraction) History of non-ST elevation myocardial infarction (NSTEMI) (02/03/20) History of prostate cancer Hyperlipidemia 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 Hyponatremia Incomplete right bundle branch block Insulin pump titration Insulin pump titration 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 cardiomyopathy 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 Low back pain Mobitz type I Wenckebach atrioventricular block Neuralgia Non-STEMI (non-ST elevated myocardial infarction) Nonallopathic lesion of lumbar region Nonallopathic lesion of rib cage Nonallopathic lesion of sacral region Nonallopathic lesion of thoracic region, not elsewhere classified NSVT (nonsustained ventricular tachycardia) Otalgia Otitis externa Overweight Pain in lower limb Paroxysmal atrial fibrillation (06/2019) Pedal edema Peripheral vascular insufficiency 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 Pulmonary nodule PVD (peripheral vascular disease) Reactive airway disease Serous otitis media Thoracic back pain Thoracic outlet syndrome Type I diabetes mellitus Urethral stricture Vitamin D deficiency Wax in ear Home Medications latanoprost 0.005 % eye drops 1 drp EACH EYE DAILY ml 11/15/17 [History Last Taken 03/25/20 06:00 1 DRP] brimonidine 0.2 % eye drops 1 drp LEFT EYE BID ml 10/01/19 [History Last Taken 05/05/21] timolol 0.5 % eye drops 1 drp EACH EYE DAILY ml 10/01/19 [History Last Taken 03/25/20 06:00 1 DRP] metoprolol succinate 25 mg tablet,extended release 24 hr 12.5 mg PO DAILY #45 tab 08/10/21 [Rx Last Taken Unknown] aspirin 81 mg PO DAILY 08/15/21 [History Last Taken Unknown] isosorbide mononitrate 30 mg tablet,extended release 24 hr 30 mg PO DAILY #90 tab 08/22/21 [Rx Last Taken Unknown] atorvastatin 80 mg tablet 80 mg PO QHS #90 tab 11/08/21 [Rx Last Taken Unknown] clopidogrel 75 mg tablet 75 mg PO DAILY #90 tab 11/08/21 [Rx Last Taken Unknown] albuterol sulfate 90 mcg/actuation aerosol inhaler 2 puff INHALATION Q4H PRN #8.5 g 11/15/21 [Rx Last Taken Unknown] fluticasone fur. 200 mcg-umeclid 62.5 mcg-vilant 25 mcg inhalat.powder 1 inh INHALATION DAILY #60 ea 11/15/21 [Rx Last Taken Unknown] insulin lispro 100 unit/mL subcutaneous solution 100 unit SC DAILY ml 01/12/22 [History Last Taken Unknown] Allergy/AdvReac Type Severity Reaction Status Date / Time amoxicillin [From Augmentin] Allergy Unknown Unknown Verified 01/16/22 06:48 clavulanic acid Allergy Unknown Unknown Verified 01/16/22 06:48 [From Augmentin] Sulfa (Sulfonamide Allergy Unknown Unknown Verified 01/16/22 06:48 Antibiotics) Family History Sister Diabetes Father Heart disease Surgical History H/O inguinal hernia repair H/O prostate biopsy History of appendectomy History of carpal tunnel surgery of left wrist History of coronary artery stent placement (06/29/19) History of femoropopliteal bypass (01/2021) History of left heart catheterization (02/09/20) Problem with dialysis access (05/05/21) S/P bilateral foot surgery S/P rotator cuff repair Social History (Updated 01/16/22 @ 08:54 by Torie Barba) household members: spouse housing: house Smoking Status: Former smoker quit date: 11/12/13 pack-years: 53 how long ago did patient quit smokin years ago second hand exposure: No alcohol intake: never substance use type: does not use caffeine: Yes Type: coffee Number of servings: 1 ROS ROS Narrative 10 point review of systems, negative unless otherwise noted in HPI. Vital Signs Vital Signs Vital Signs: 01/16/22 21:00 01/16/22 21:10 01/16/22 22:45 Temperature 98.2 F Temperature Source Oral Pulse Rate 86 Pulse Strength Normal (2+) Respiratory Rate 16 Respiratory Effort Normal Non-Labored Respiratory Depth Normal Respiratory Pattern Normal Blood Pressure 115/55 L Blood Pressure Mean 75 Blood Pressure Source Monitor Blood Pressure Position Semi-Fowlers Blood Pressure Location Right Arm Pulse Ox 98 Oxygen Delivery Method Nasal Cannula Nasal Cannula Oxygen Flow Rate (L/min) 4 4 01/16/22 23:19 01/17/22 03:00 01/17/22 03:28 Temperature Temperature Source Pulse Rate 83 78 76 Pulse Strength Respiratory Rate 20 H 20 H Respiratory Effort Respiratory Depth Respiratory Pattern Normal Normal Blood Pressure Blood Pressure Mean Blood Pressure Source Blood Pressure Position Blood Pressure Location Pulse Ox Oxygen Delivery Method Oxygen Flow Rate (L/min) 01/17/22 03:45 01/17/22 03:51 01/17/22 07:08 Temperature 98.2 F Temperature Source Oral Pulse Rate 80 88 Pulse Strength Respiratory Rate 18 18 Respiratory Effort Normal Non-Labored Respiratory Depth Normal Respiratory Pattern Tachypnea Normal Blood Pressure 104/53 L Blood Pressure Mean 70 Blood Pressure Source Monitor Blood Pressure Position Semi-Fowlers Blood Pressure Location Right Arm Pulse Ox 99 96 Oxygen Delivery Method Nasal Cannula Nasal Cannula Nasal Cannula Oxygen Flow Rate (L/min) 4 4 4 01/17/22 07:43 01/17/22 08:22 01/17/22 09:45 Temperature 97.5 F L Temperature Source Oral Pulse Rate 88 83 94 Pulse Strength Respiratory Rate 18 Respiratory Effort Respiratory Depth Respiratory Pattern Blood Pressure 106/61 106/61 Blood Pressure Mean 76 Blood Pressure Source Monitor Blood Pressure Position Blood Pressure Location Pulse Ox 98 Oxygen Delivery Method Nasal Cannula Oxygen Flow Rate (L/min) 4 01/17/22 10:00 01/17/22 11:15 01/17/22 11:50 Temperature Temperature Source Pulse Rate 94 70 Pulse Strength Respiratory Rate 18 Respiratory Effort Short of Breath Normal Non-Labored Respiratory Depth Normal Normal Respiratory Pattern Normal Normal Normal Blood Pressure Blood Pressure Mean Blood Pressure Source Blood Pressure Position Blood Pressure Location Pulse Ox Oxygen Delivery Method Nasal Cannula Nasal Cannula Oxygen Flow Rate (L/min) 4 4 01/17/22 13:31 01/17/22 14:00 01/17/22 15:14 Temperature Temperature Source Pulse Rate 79 Pulse Strength Respiratory Rate 20 H Respiratory Effort Short of Breath Respiratory Depth Normal Respiratory Pattern Tachypnea Blood Pressure Blood Pressure Mean Blood Pressure Source Blood Pressure Position Blood Pressure Location Pulse Ox 98 Oxygen Delivery Method Nasal Cannula Oxygen Flow Rate (L/min) 3 3 01/17/22 15:25 01/17/22 15:45 01/17/22 19:00 Temperature 98.0 F Temperature Source Oral Pulse Rate 82 82 84 Pulse Strength Respiratory Rate 16 20 H Respiratory Effort Respiratory Depth Respiratory Pattern Normal Blood Pressure 116/59 L Blood Pressure Mean 78 Blood Pressure Source Monitor Blood Pressure Position Blood Pressure Location Pulse Ox 96 Oxygen Delivery Method Nasal Cannula Oxygen Flow Rate (L/min) 3 Weight Weight: 157 lb 3.033 oz Body Mass Index (BMI) 24.0 Physical Exam Narrative General -A&Ox3, NAD, appears stated age. Vital signs stable, afebrile. Respiratory -normal work of breathing, no intercostal retractions. CV -pulses regular, brisk capillary refill ?4 limbs. Abdomen-soft, nontender, nondistended. No guarding, rigidity, rebound tenderness. Musculoskeletal/neurologic -full range of motion nontender throughout bilateral upper extremities, right lower extremity with full sensation and strength in all dermatomes and myotomes. No midline cervical tenderness. Left lower extremity: Diminished sensation along the medial aspect of the lower leg. Surgical scars well-healed along the medial proximal tibia. DP and PT pulses are not palpable. Foot is cool to touch extending to the ankle. Pretibial lower leg is slightly warmer, still slightly cool compared to the proximal thigh. Dry gangrene digital necrosis is noted at the toes. The heel is unremarkable. No significant drainage, induration or fluctuance is noted. Lab / Micro Data Result Diagrams: 01/17/22 05:22 01/17/22 05:22 Labs: Laboratory Results - last 24 hr 01/16/22 21:11: POC Glucose > 500 H* 01/16/22 21:30: Glucose 576 H* 01/16/22 22:04: POC Glucose > 500 H* 01/16/22 22:48: POC Glucose 472 H* 01/17/22 00:11: POC Glucose 458 H* 01/17/22 02:35: POC Glucose 383 H 01/17/22 05:22: WBC 7.1, RBC 2.71 L, Hgb 7.7 L, Hct 27.5 L, MCV 101.5 H D, MCH 28.4, MCHC 28.0 L D, RDW Std Deviation 65.1 H, RDW Coeff of Janel 17.4 H, Plt Count 181, MPV 10.1, Immature Gran % (Auto) 0.400, Neut % (Auto) 84.7 H, Lymph % (Auto) 3.8 L, [place] % (Auto) 11.0 H, Eos % (Auto) 0.0, Baso % (Auto) 0.1, Absolute Neuts (auto) 6.0, Absolute Lymphs (auto) 0.27 L, Nucleated RBC % 0, Hypochromasia 1+, Anisocytosis 1+, Macrocytosis 1+ 01/17/22 05:22: Sodium 131 L, Potassium 4.6, Chloride 92 L, Carbon Dioxide 26.0, Anion Gap 13, BUN 68 H, Creatinine 3.95 H, Estim Creat Clear Calc 14.91, Est GFR (MDRD) Af Amer 19 L, Est GFR (MDRD) Non-Af 16 L, BUN/Creatinine Ratio 17.2, Glucose 365 H, Calcium 8.2 L 01/17/22 05:22: Hemoglobin A1c 6.5 H 01/17/22 06:27: POC Glucose 422 H 01/17/22 10:45: POC Glucose 448 H 01/17/22 16:16: POC Glucose 423 H Assessment & Plan Assessment/Plan (1) Dry gangrene: PLAN: Patient has advanced dry gangrene of his left toes. Podiatry christopher mmended against a TMA. I feel he is likely appropriate for below-knee amputation. Patient expressed interest in a below-knee amputation. However, patient has had blood glucose levels in the 400?600 levels during this hospitalization. He states this is considerably out of control compared to his normal home baseline blood glucose. My concern for an urgent below-knee amputation without acute sepsis in the setting of profound hyperglycemia centers around wound healing postoperatively. I discussed this with the patient. I recommended follow-up in the next couple weeks to plan a elective left below- knee amputation. I will contact vascular lab tomorrow for possible TCOMs in to aid in our amputation level selection. Plan to follow-up in 2-3 weeks with myself. This also allows his lungs to return to ideally baseline status prior to intubation around surgical procedures. Thank you for this consultation. Do not hesitate to call if any questions or concerns arise. Patient expressed u nderstanding the above plan and is in agreement. (2) Peripheral arterial disease: PLAN: See above
[2022-01-17] MEDS: Latanoprost 0.005% 1 Bottle 1 DRP OPHTHALMIC (22:00)
[2022-01-17] MEDS: Atorvastatin Calcium 80 MG Tablet PO (22:00)
[2022-01-17 22:28] LABS: Bedside Glucose 399 mg/dL (74-106)
[2022-01-18] VITALS (13 sets, daily range): BP systolic 111–122; BP diastolic 64; PULSE 76–83; RESP 12–20; TEMP 35.6–36.7; O2SAT 86–100
[2022-01-18] MEDS: Ipratropium/Albuterol Sulfate 3 ML AMPUL.NEB INHALATION ×4 (03:06→15:21)
[2022-01-18] MEDS: Heparin Injection (Vial) 5,000 UNIT/ML VIAL 5000 UNIT SC (06:20)
--- NOTE | 2022-01-18 07:55 | PN.CC_ITS ---
Assessment & Plan Assessment/Plan (1) Acute on chronic respiratory failure with hypoxemia: PLAN: RECOMMENDATIONS: 1. Wean supplemental oxygen as tolerated. 2. Continue hemodialysis per nephrology recommendations. 3. Okay from my perspective to discontinue antimicrobials and prednisone. 4. Continue scheduled bronchodilators. 5. Recheck H&H post dialysis. Continue PPI therapy. 6. Encourage incentive spirometer use while in bed and mobilize patient as tolerated. IMPRESSIONS: 1. Acute on chronic hypoxemic respiratory failure The patient reported that he awoke abruptly from sleep last night feeling short of breath. The exact etiology for his acute presentation is unclear. However, chest imaging did reveal interstitial prominence, cardiomegaly and a left-sided pleural effusion, which could certainly suggest a component of hypervolemia, in the setting of end-stage renal disease. The patient's did report that he often times has difficulty over the weekend making it to his dialysis session on Sunday. It is unclear as to whether his dry weight has been challenged recently. The patient did report symptomatic improvement following hemodialysis with 3 L of fluid removed. He is maintaining appropriate oxygen saturations on 2 L/min. He remains afebrile. Antibiotics and prednisone can be discontinued from my perspective. Continue scheduled bronchodilators. 2. End-stage renal disease on hemodialysis Continue dialysis support per nephrology recommendations. 3. Anemia The patient does have a history of anemia and has been evaluated by GI in the past. Endoscopic evaluation never revealed an etiology for blood loss. Recommend rechecking H&H today post dialysis completion. Transfuse if hemoglobin drops below 7 g/dL. Continue PPI therapy. 4. Peripheral vascular disease with lower extremity wound Continue aspirin and Plavix. Tentative plans for outpatient follow-up with orthopedic surgery. The patient will ultimately require amputation. 5. 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 Continue home medications as indicated. This note was generated with [employer] dictation software. It may contain incorrect words, spelling, and punctuation that were not noted in checking the note before signing. Subjective Subjective The patient was seen and examined at the bedside this morning. Events from the last 24 hours have been reviewed. The patient is currently afebrile, hemodynamically stable and maintaining appropriate oxygen saturations on 2 L/min via nasal cannula. The patient's breathing quality is overall stable. He has had some recent issues with constipation, for which he received multiple doses of lactulose yesterday which eventually led to a successful bowel movement. Objective Data Objective Data The patient's most recent lab work, culture data and imaging studies have all been personally reviewed. Surface echocardiogram from August 2021 demonstrated stage I diastolic dysfunction with an ejection fraction of 40%, pulmonary artery systolic pressure of 36 mmHg and mild to moderate aortic stenosis. Covid rapid antigen testing was negative. Rapid influenza screen was negative. Blood cu ltures have shown no growth to date. Vital Signs: Vital Signs Temp Pulse Resp BP Pulse Ox 97.6 F L 80 12 122/64 H 100 01/18/22 03:00 01/18/22 07:35 01/18/22 07:35 01/18/22 03:00 01/18/22 07:35 Oxygen Flow Rate (L/min) 2 Oxygen Delivery Method Nasal Cannula Weight: 70.9 kg Body Mass Index (BMI) 24.0 Intake & Output: Intake and Output for Last 24 Hours 01/16/22 01/17/22 01/18/22 23:59 23:59 23:59 Intake Total 1195 / 1195 1640 / 1640 Output Total 3300 / 3300 50 / 50 50 / 50 Balance -2105 / -2105 1590 / 1590 -50 / -50 Lab / Micro Data Attestation: I reviewed the patient's lab results. Result Diagrams: 01/17/22 05:22 01/17/22 05:22 Labs: Laboratory Results - last 24 hr 01/17/22 05:22: WBC 7.1, RBC 2.71 L, Hgb 7.7 L, Hct 27.5 L, MCV 101.5 H D, MCH 28.4, MCHC 28.0 L D, RDW Std Deviation 65.1 H, RDW Coeff of Janel 17.4 H, Plt Count 181, MPV 10.1, Immature Gran % (Auto) 0.400, Neut % (Auto) 84.7 H, Lymph % (Auto) 3.8 L, [place] % (Auto) 11.0 H, Eos % (Auto) 0.0, Baso % (Auto) 0.1, Absolute Neuts (auto) 6.0, Absolute Lymphs (auto) 0.27 L, Nucleated RBC % 0, Hypochromasia 1+, Anisocytosis 1+, Macrocytosis 1+ 01/17/22 05:22: Hemoglobin A1c 6.5 H 01/17/22 10:45: POC Glucose 448 H 01/17/22 16:16: POC Glucose 423 H 01/17/22 21:51: POC Glucose 399 H Micro: Microbiology 01/16/22 06:26 Mucosa - Nose Influenza Types A,B Direct FA (LEVI) - Final 01/16/22 06:26 Nasal Secretion SARS-CoV-2 Antigen (Rapid) - Final Physical Exam Const alert, oriented x3 and no apparent distress General Appearance: cooperative HEENT normocephalic, head/scalp atraumatic and moist oral mucous membranes Eyes PERRL, EOMs intact bilaterally and conjunctivae normal Neck supple General: trachea midline Chest inspection of chest normal Resp Auscultation: diminished lung sounds; Negative for rales, rhonchi or wheezes Cardio regular rate and regular rhythm Heart Sounds: murmur GI normal to inspection, nondistended, normoactive bowel sounds Extremity no clubbing, cyanosis or edema Skin Wound Narrative: Wound present on left foot. Necrotic appearing toes. Neuro oriented x3, CN's II-XII intact bilaterally and moves all extremities Psych cooperative and affect normal Charges/Coding Visit Charges Inpatient E&M: 62331 Subs Hosp L2
[2022-01-18] MEDS: Insulin Lispro 100 UNIT/ML INSULN.PEN SC (08:39)
[2022-01-18] MEDS: Insulin Lispro 100 UNIT/ML INSULN.PEN 15 UNIT SC (08:40)
[2022-01-18] MEDS: Timolol 0.5% 5ML OPTH.BTL 1 DRP OPHTHALMIC (08:42)
[2022-01-18] MEDS: BRIMONIDINE 0.2% 5ML BOTTLE 1 DRP OPHTHALMIC (08:43)
[2022-01-18] MEDS: Lidocaine/Prilocaine HCl 5 GM Tube TOPICAL (08:44)
[2022-01-18 08:50] LABS: Bedside Glucose 224 mg/dL (74-106)
--- NOTE | 2022-01-18 09:26 | CASEMGMT ---
Addendum entered by Xiomara Benson 01/18/22 10:16: Prashant PARISI aware that pt needs tested on 4L at rest and 4L w/ exertion, voices understanding. Vic PARISI CM Original Note: Per [facility], pt's home oxygen order is for 4L continuous. Pt to be tested on this prior to discharge. CM to follow. Vic PARISI CM
[2022-01-18 10:02] LABS: Hematocrit 25.4 % (40-54)
--- NOTE | 2022-01-18 11:13 | PN.RENAL_ITS ---
Subjective Subjective no new complaints Objective Data Objective Data Vital Signs: Vital Signs Temp Pulse Resp BP Pulse Ox 97.6 F L 80 12 122/64 H 97 01/18/22 03:00 01/18/22 07:35 01/18/22 07:35 01/18/22 03:00 01/18/22 08:48 Oxygen Flow Rate (L/min) 3 Oxygen Delivery Method Nasal Cannula Weight: 70.9 kg Body Mass Index (BMI) 24.0 Intake & Output: Intake and Output for Last 24 Hours 01/16/22 01/17/22 01/18/22 23:59 23:59 23:59 Intake Total 1195 / 1195 1640 / 1640 Output Total 3300 / 3300 50 / 50 50 / 50 Balance -2105 / -2105 1590 / 1590 -50 / -50 Lab / Micro Data Result Diagrams: 01/18/22 09:53 01/17/22 05:22 Labs: Laboratory Results - last 24 hr 01/17/22 05:22: WBC 7.1, RBC 2.71 L, Hgb 7.7 L, Hct 27.5 L, MCV 101.5 H D, MCH 28.4, MCHC 28.0 L D, RDW Std Deviation 65.1 H, RDW Coeff of Janel 17.4 H, Plt Count 181, MPV 10.1, Immature Gran % (Auto) 0.400, Neut % (Auto) 84.7 H, Lymph % (Auto) 3.8 L, [place] % (Auto) 11.0 H, Eos % (Auto) 0.0, Baso % (Auto) 0.1, Absolute Neuts (auto) 6.0, Absolute Lymphs (auto) 0.27 L, Nucleated RBC % 0, Hypochromasia 1+, Anisocytosis 1+, Macrocytosis 1+ 01/17/22 05:22: Hemoglobin A1c 6.5 H 01/17/22 16:16: POC Glucose 423 H 01/17/22 21:51: POC Glucose 399 H 01/18/22 08:37: POC Glucose 224 H 01/18/22 09:53: Hgb 8.0 L, Hct 25.4 L Micro: Microbiology 01/16/22 06:26 Mucosa - Nose Influenza Types A,B Direct FA (LEVI) - Final 01/16/22 06:26 Nasal Secretion SARS-CoV-2 Antigen (Rapid) - Final Radiography Diagnostic Testing: Radiology Impression Extremity Arterial Study 01/17/22 12:33 Interpretation Summary Right ankle with monophasic flow noted. No segmental pressures were checked. Ordering Physician: Basilio Avila Performed By: Raúl Richards RVT Physical Exam Narrative Alert awake oriented x 3 no obvious distress no pallor no icterus no JVD s1s2 no murmurs lungs clear abdomen soft no organomegaly no edema no cyanosis Assessment & Plan Assessment/Plan (1) ESRD (end stage renal disease): PLAN: seen on HD today. labs ok. UF as tolerated. possible dc today. surgery postponed due to hyperglycemia (2) COPD (chronic obstructive pulmonary disease): QUALIFIERS: COPD type: unspecified COPD Qualified Code(s): J44.9 - Chronic obstructive pulmonary disease, unspecified
--- NOTE | 2022-01-18 11:14 | PCM.DC.SUM ---
Providers Date of Admission: 01/16/22 Primary Care Physician: Dr. Sb Bolanos, DO Consultations 01/16/22 09:02 Consult: Flower Cheniller / Pulmonary Medicine Routine Consulting Provider: [facility] Reason for Consult: respiratory failure EMERGENT Consult: No MD Notified: Yes Date Notified: 01/16/22 Time Notified: 08:29 Method of Notification: Verbal Consult: Nephrology Routine Consulting Provider: Allison Reyes Reason for Consult: ESRD EMERGENT Consult: No MD Notified: Yes Date Notified: 01/16/22 Time Notified: 08:30 Method of Notification: Verbal 01/17/22 10:02 Consult: Podiatry Routine Consulting Provider: Basilio Avila Reason for Consult: vascular compromise left foot EMERGENT Consult: No Notified: Yes Date Notified: 01/17/22 Time Notified: 10:02 Method of Notification: Verbal 01/17/22 12:45 Consult: Orthopedics Routine Consulting Provider: Flynn Lacy Reason for Consult: need for BKA left leg EMERGENT Consult: No MD Notified: Yes Date Notified: 01/17/22 Time Notified: 12:45 Method of Notification: Verbal Reason For Visit: RESPIRATORY DISTRESS Diagnosis Discharge Diagnosis (1) ESRD (end stage renal disease): Status: Acute Code(s): N18.6 - End stage renal disease (2) COPD (chronic obstructive pulmonary disease): Status: Chronic Code(s): J44.9 - Chronic obstructive pulmonary disease, unspecified Qualifiers: COPD type: unspecified COPD Qualified Code(s): J44.9 - Chronic obstructive pulmonary disease, unspecified Medications at Discharge Home Medications latanoprost 0.005 % eye drops 1 drp EACH EYE DAILY ml 11/15/17 brimonidine 0.2 % eye drops 1 drp LEFT EYE BID ml 10/01/19 timolol 0.5 % eye drops 1 drp EACH EYE DAILY ml 10/01/19 metoprolol succinate 25 mg tablet,extended release 24 hr 12.5 mg PO DAILY #45 tab 08/10/21 aspirin 81 mg PO DAILY 08/15/21 isosorbide mononitrate 30 mg tablet,extended release 24 hr 30 mg PO DAILY #90 tab 08/22/21 atorvastatin 80 mg tablet 80 mg PO QHS #90 tab 11/08/21 clopidogrel 75 mg tablet 75 mg PO DAILY #90 tab 11/08/21 albuterol sulfate 90 mcg/actuation aerosol inhaler 2 puff INHALATION Q4H PRN #8.5 g 11/15/21 fluticasone fur. 200 mcg-umeclid 62.5 mcg-vilant 25 mcg inhalat.powder 1 inh INHALATION DAILY #60 ea 11/15/21 insulin lispro 100 unit/mL subcutaneous solution 100 unit SC DAILY ml 01/12/22 docusate calcium 240 mg PO BID #60 cap 01/18/22 Hospital Course Operations None Procedures - (Extremity arterial study bilateral lower extremities-absent on the left monophasic on the right) Summary of Care Provided Minutes Spent on Discharge: 36 Hospital Course: Mr. Massey is a 76-year-old white male who presented to the emergency department was [facility] on 01/18/2022 with a chief complaint of shortness of breath that had progressively increased over the last 24 hours prior to admission. He denied any fevers or chills and unfortunately the patient was not able to participate in his history as he forgot his hearing aids and could not hear the conversation. His history on admission was obtained from the patient's and daughter. The family indicated he was on chronic oxygen at home and had Covid last year and was following pulmonary medicine on a regular basis. They also indicated he had hemodialysis on Sunday, Sunday, and Sunday. They were predominantly concerned about his respiratory status as well as ecchymosis in his left foot that showed areas of dry gangrene. Upon presentation the patient initially required BiPAP but was able to be weaned with time to 5 L nasal cannula. His baseline oxygen requirements are 2 L prior to presentation. His chest x-ray showed chronic bilateral infiltrates. His CBC showed a mildly elevated white count of 14.9 and a stable hemoglobin. His chemistry profile showed an elevated BUN and creatinine in which are normal for him and he is on dialysis at baseline however his serum glucose was 302. The patient was admitted to the PCU given his tenuous respiratory status and was evaluated by pulmonary medicine as well as nephrology for continued dialysis. He was dialyzed on his regular Sunday schedule and it is suspected that his respiratory status has worsened given the need for more fluid removal with dialysis. He is evidently had previous admissions with this concerned. I did discuss the case with the dialysis nurse at the bedside and Amy is relaying information to his outpatient dialysis unit which will likely pull more fluid and reestablish his dry weight. Pulmonary medicine agrees that this is most likely the cause for his respiratory status issues. We were able to wean his oxygen status back to his baseline of 2 L prior to discharge on 01/18/2022. He was also evaluated by podiatry and orthopedic surgery during his hospitalization given his dry gangrene. Podiatry recommended a BKA and therefore orthopedic surgery saw the patient. Vascular studies were performed and as noted above Dopplers were absent distally on the left and monophasic on the right. Orthopedic surgery recommended a BKA as well however prior to performing the procedure they would like the patient's blood sugars to be better controlled. The patient is on an insulin pump at baseline and indicates his blood sugars are much improved as an outpatient when he is on his pump. He is also been on steroids during his hospitalization which are likely driving his blood sugars higher. These were discontinued on 01/18/2022 after discussion with pulmonary medicine. Without any evidence of acute sepsis related to his lower extremity dry gangrene orthopedic surgery plans on following up with the patient in the next week or 2 for an elective left BKA. I did touch base with orthopedics prior to discharge and they were aware of the plans for discharge and noted that they would follow-up with him soon. He is also to follow-up with his primary care physician within the next 1 to 2 weeks after discharge as well as pulmonary medicine as scheduled, nephrology as scheduled, and podiatry as needed. Discharge diagnoses: Acute on chronic hypoxic respiratory failure End-stage renal disease-HD dependent Chronic normocytic anemia PVD Left lower extremity dry gangrene CAD DM-2 Combined systolic and diastolic heart failure-compensated Aortic stenosis COPD Hypertension Hyperlipidemia Physical Exam Const alert, oriented x3, no apparent distress and average body habitus Constitutional Narrative: Elderly white male sitting up in bed with dialysis nurse and pulmonology at the bedside, patient appears comfortable nontoxic General Appearance: cooperative, comfortable, well kempt and well developed Orientation / Consciousness: awake Exam Limitations: no limitations HEENT normocephalic, head/scalp atraumatic and moist oral mucous membranes HEENT Narrative: Moderately hard of hearing, Mallampati is 2-3, no thrush Eyes PERRL and EOMs intact bilaterally Eyes Narrative: Mildly pale conjunctiva bilaterally, no scleral icterus Neck no lymphadenopathy and supple Neck Narrative: Trachea midline, no thyroid enlargement Resp normal respiratory effort, no retractions, no use of accessory muscles and clear to auscultation bilaterally Resp Narrative: Diffusely diminished but no adventitious sounds noted Auscultation: Negative for crackles, rales, rhonchi or wheezes Cardio regular rate, regular rhythm, S1 normal heart sound, S2 normal heart sound, no gallops and no clicks; Negative for no murmurs, no rub or no JVD Cardio Narrative: Few ectopic beats GI normal to inspection, nondistended, normoactive bowel sounds, soft to palpation, non-tender and non-distended Extremity no clubbing, cyanosis or edema Skin no rashes or lesions noted, no wounds, skin turgor normal and no jaundice Neuro oriented x3, CN's II-XII intact bilaterally, moves all extremities and no focal motor deficits Sensorium / Orientation: awake and alert Speech: speech normal Psych affect normal Psych Narrative: Very pleasant Weight / BMI Weight Weight: 70.9 kg Body Mass Index (BMI) 24.0 ABG / Lab / Microbiology Data Result Diagrams: 01/18/22 09:53 01/17/22 05:22 Laboratory: Laboratory Results - last 24 hr 01/17/22 05:22: WBC 7.1, RBC 2.71 L, Hgb 7.7 L, Hct 27.5 L, MCV 101.5 H D, MCH 28.4, MCHC 28.0 L D, RDW Std Deviation 65.1 H, RDW Coeff of Janel 17.4 H, Plt Count 181, MPV 10.1, Immature Gran % (Auto) 0.400, Neut % (Auto) 84.7 H, Lymph % (Auto) 3.8 L, Cobb % (Auto) 11.0 H, Eos % (Auto) 0.0, Baso % (Auto) 0.1, Absolute Neuts (auto) 6.0, Absolute Lymphs (auto) 0.27 L, Nucleated RBC % 0, Hypochromasia 1+, Anisocytosis 1+, Macrocytosis 1+ 01/17/22 05:22: Hemoglobin A1c 6.5 H 01/17/22 16:16: POC Glucose 423 H 01/17/22 21:51: POC Glucose 399 H 01/18/22 08:37: POC Glucose 224 H 01/18/22 09:53: Hgb 8.0 L, Hct 25.4 L Microbiology: Microbiology 01/16/22 06:26 Mucosa - Nose Influenza Types A,B Direct FA (LEVI) - Final 01/16/22 06:26 Nasal Secretion SARS-CoV-2 Antigen (Rapid) - Final Radiography Diagnostic Testing: Radiology Impression Extremity Arterial Study 01/17/22 12:33 Interpretation Summary Right ankle with monophasic flow noted. No segmental pressures were checked. Ordering Physician: Basilio Avila Performed By: Raúl Richards RVT D/C Instructions Discharge Diet: 1800 Calorie Control Diet, 8 Cup Fluid Restriction and Renal Diet Discharge Activity: Return to Normal Activity Meaningful Use Info Meaningful Use Diagnoses (Choose all that apply): None applicable Discharge Plan Admission Admit Date/Time: 01/16/22 08:02 Primary Reason for Your Visit: Shortness of breath Attending Provider: Flor Keller Primary Care Provider: Sb oBlanos Consulting Providers: Justin Martins ; Dev Bolanos ; Mariaelena Schilling ELECTRON GUN INSPECTOR ; Allison Reyes ; Basilio Avila ; Flynn Lacy Discharge Orders/Prescriptions Prescriptions: New docusate calcium 240 mg Capsule 240 mg PO BID Qty: 60 RF: 0 Continued timolol 0.5 % drops 1 drp EACH EYE DAILY RF: 0 brimonidine 0.2 % drops 1 drp LEFT EYE BID RF: 0 insulin lispro [Humalog U-100 Insulin] 100 unit/mL solution 100 unit SC DAILY RF: 0 albuterol sulfate 90 mcg/actuation HFA aerosol inhaler 2 puff INHALATION Q4H PRN (Reason: Sob &/Or Wheezing) Qty: 8.5 RF: 11 Trelegy Ellipta 200-62.5-25 mcg blister with device 1 inh inhalation DAILY Qty: 60 RF: 11 latanoprost 1 DROP bottle 1 drp EACH EYE DAILY RF: 0 aspirin 81 mg tablet,delayed release (DR/EC) 81 mg PO DAILY RF: 0 metoprolol succinate 25 mg tablet extended release 24 hr 12.5 mg PO DAILY Qty: 45 RF: 3 isosorbide mononitrate 30 mg tablet extended release 24 hr 30 mg PO DAILY Qty: 90 RF: 3 atorvastatin 80 mg tablet 80 mg PO QHS Qty: 90 RF: 3 clopidogrel [Plavix] 75 mg tablet 75 mg PO DAILY Qty: 90 RF: 3 Referrals / Follow Up: Dev Bolanos DO [STAFF PHYSICIAN] - See Referral Note (As scheduled) Basilio Avila DPM [STAFF PHYSICIAN] - See Referral Note (As needed) Flynn Lacy DO [STAFF PHYSICIAN] - Within 1 Month Jase Lovelace NP, ELECTRON GUN INSPECTOR-C [Nurse Practitioner] - 02/01/22 3:30 pm Disposition Disposition (needs filled in before D/C Order can be placed): Home, Self Care Charges/Coding Visit Charges Inpatient E&M: 90278 Disch Hosp
[2022-01-18 12:36] LABS: Bedside Glucose 110 mg/dL (74-106)
--- NOTE | 2022-01-18 13:37 | DIALYSIS ---
HD x 3 hours and 25 minutes complete. Tolerated tx well. Ran on 3k bath. UF of 2900ml. Used left arm fistula. Bairoil removed and pressure applied x 10 minutes. Hemostasis achieved. Fresh gauze and tape applied. Report was given to AILIN Cerda.
[2022-01-18] MEDS: 0.9% Saline Lock 10 ML Syringe IV (13:52)
--- NOTE | 2022-01-18 14:13 | CASEMGMT ---
Per Beth RN, pt's sat ambulating on 8Lnc is 88%. Dr. Bolanos and Dr. Keller aware and are ok with d/c today. Per Dr. Bolanos, pt likely lives at that O2 level d/t hx COPD, etc. Pt states normally uses hover round at home and does not ambulate much. Pt updated on Trilogy and delivery, voices understanding. Pt encouraged to wear trilogy and be consistent. Pt is aware to call [facility] for any issues with equipment/masks, voices understanding. Pt states he has 10L concentrator and turns oxygen up, if needed already. Pt is aware that appt was made with pulmonlogy for him and he states he will keep appt. Pt states no further concerns/needs with going home at time of discharge. Pt states will be here about 6pm to pick him up. Isabela at [facility] updated on approximate d/c time, voices understanding. Beth RN update on all, voices understanding. Vic PARISI CM
--- NOTE | 2022-01-18 15:59 | CASEMGMT ---
Per Luisa PARISI, pt does not qualify for increased home oxygen at discharge. Pt/ states no further concerns with going home at discharge. declines need for any further resources and states I just want to get him home, he has had a rough couple days.' Vic PARISI CM
== END 2022-01-18 16:50 | disposition home or self-care (01) | DRG 291 ==
LOC: ED 07:09 → PCU 09:53
PROVIDERS: Family Medicine; Internal Medicine Critical Care Medicine; Admitting Provider Internal Medicine; Emergency Provider Emergency Medicine; PCP Family Medicine; Visit Provider Internal Medicine
DX: I13.2 Hypertensive heart and chronic kidney disease with heart failure and with stage 5 chronic kidney disease, or end stage renal disease (principal); N18.6 End stage renal disease; J96.21 Acute and chronic respiratory failure with hypoxia; I50.43 Acute on chronic combined systolic (congestive) and diastolic (congestive) heart failure; E11.52 Type 2 diabetes mellitus with diabetic peripheral angiopathy with gangrene; G54.0 Brachial plexus disorders; D64.9 Anemia, unspecified; E11.22 Type 2 diabetes mellitus with diabetic chronic kidney disease; I48.0 Paroxysmal atrial fibrillation; E11.65 Type 2 diabetes mellitus with hyperglycemia; J44.9 Chronic obstructive pulmonary disease, unspecified; Z79.4 Long term (current) use of insulin; Z99.2 Dependence on renal dialysis; J84.10 Pulmonary fibrosis, unspecified; E78.5 Hyperlipidemia, unspecified; I25.10 Atherosclerotic heart disease of native coronary artery without angina pectoris; K21.9 Gastro-esophageal reflux disease without esophagitis; I25.2 Old myocardial infarction; N40.0 Benign prostatic hyperplasia without lower urinary tract symptoms; I35.0 Nonrheumatic aortic (valve) stenosis; K59.00 Constipation, unspecified; Z99.81 Dependence on supplemental oxygen; Z87.19 Personal history of other diseases of the digestive system; Z96.41 Presence of insulin pump (external) (internal); Z79.52 Long term (current) use of systemic steroids; Z79.82 Long term (current) use of aspirin; Z79.899 Other long term (current) drug therapy; Z95.5 Presence of coronary angioplasty implant and graft; Z87.891 Personal history of nicotine dependence; Z86.16 Personal history of COVID-19; Z87.01 Personal history of pneumonia (recurrent); H40.9 Unspecified glaucoma; Z79.02 Long term (current) use of antithrombotics/antiplatelets
CPT/HCPCS: 36415; 36600; 71045; 80048; 82803; 82947; 82962; 83036; 83735; 84100; 85014; 85018; 85025; 85610; 85730; 87040; 87426; 87804; 90937; 93005; 93923; 94002; 94640; 94762; 97162; 97166; 97530; 97802; 99251; 99285; J7030; J7050; A4216; G0257; G0463

== ENCOUNTER 2022-01-31 15:05 | Outpatient (CLI) | payer MEDICARE, BC, SELFPAY ==
[2022-01-31 16:37] LABS: Absolute Lymphocyte Count 0.53 X10^3/uL (0.83-4.51); Absolute Neutrophil Count 6.5 X10^3/uL (2.0-7.7); Basophil# 0.04 X10^3/uL; Basophil% 0.5 % (0-1); Eosinophils% 2.4 % (0-5); Hematocrit 33.1 % (40-54); Hemoglobin 9.9 g/dL (13.0-16.5); Lymphocyte # 0.53 X10^3/ul (0.83-4.51); Lymphocyte % 6.4 % (19-41); Mean Corp Hgb Conc 29.9 g/dL (32-36); Mean Corpuscular Hgb 27.7 pg (27.0-32.0); Mean Corpuscular Volume 92.7 fL (80-94); Mean Platelet Vol. 10.1 fl (6.2-12.0); Monocyte# 0.96 X10^3/uL; Monocyte% 11.7 % (0-10); NRBC Flagged by Analyzer 0 % (0-5); Neutrophil # 6.49 X10^3/uL (2.7-7.7); Neutrophil % 78.8 % (47-70); POSITIVE DIFFERENTIAL YES; Platelet Count 283 K/mm3 (150-450); RBC Distribution Width CV 17.2 % (11.6-14.6); Red Blood Count 3.57 M/mm3 (4.6-6.2); White Blood Count 8.2 K/mm3 (4.4-11.0)
[2022-01-31 16:44] LABS: Differential Indicated SCAN CRITERIA MET
[2022-01-31 16:54] LABS: ALB/GLOB Ratio 0.6 RATIO (0.9-2.4); AST(SGOT) 11 U/L (15-37); Alanine Aminotransfer ALT/SGPT 16 U/L (16-61); Albumin, Serum 2.7 g/dL (3.2-5.0); Alkaline Phosphatase 128 U/L (45-117); Anion Gap 8 (5-15); BUN 52 mg/dL (7-18); BUN/Creat Ratio 11.6 RATIO (10-20); Calcium,Total 8.3 mg/dL (8.5-10.1); Chloride 94 mmol/L (98-107); Creatinine, Serum 4.49 mg/dL (0.70-1.30); EST Glomerular Filtration Rate 14 mL/min (>60); Est Glom Filt Rate - Afr Amer 16 mL/min (>60); Globulin 4.9 g/dL (2.2-4.2); Glucose 159 mg/dL (74-106); Protein, Total 7.6 g/dL (6.4-8.2); Sodium Level 133 mmol/L (136-145); Thyroid Stim Hormone (TSH) 0.78 uIU/mL (0.358-3.74)
[2022-01-31 17:01] LABS: Differential Comment SCANNED
== END 2022-01-31 23:59 | disposition home or self-care (01) ==
LOC: BIMLAB 15:06
PROVIDERS: PCP Family Medicine; Referring Provider Nurse Practitioner Family; Visit Provider Nurse Practitioner Family
DX: Z01.818 Encounter for other preprocedural examination (principal); J96.11 Chronic respiratory failure with hypoxia
CPT/HCPCS: 36415; 80053; 84443; 85025

== ENCOUNTER 2022-02-02 09:03 | Outpatient (CLI) | payer MEDICARE, BC, SELFPAY ==
--- NOTE | 2022-02-02 09:08 | RAD_ITS ---
STUDY: CHEST SERIES-CHEST PA AND LATERAL VIEWS OF THE CENTRAL 0917 HOURS ON 02/02/2022 REASON FOR EXAM: Preoperative chest x-ray series image 77-year-old male. TECHNIQUE: A standard 2 view chest series was performed per protocol. COMPARISON: 01/16/2022. FINDINGS: Mild demineralization. Mild osteophytic degenerative changes of the thoracic spine. Mild cardiomegaly without heart failure. Mild to moderate fibrotic changes in both lungs. Moderate left pleural effusion versus pleural thickening. No confluent infiltrates or distinct atelectasis. No pulmonary mass lesions. There are markedly reduced diffuse pulmonary interstitial changes on comparison with the previous study of 01/16/2022. RAD/Chest PA and Lateral IMPRESSION: 1. Mild cardiomegaly without heart failure. 2. Mild to moderate fibrotic changes in both lungs. 3. Moderate left pleural effusion versus pleural thickening. 4. No confluent infiltrates, distinct atelectasis, or pulmonary mass lesions. 5. Markedly reduced pulmonary interstitial changes on comparison with the previous study of 01/16/2022. Electronically Signed: Antony Mckeon MD at 17:20 EDT ,
== END 2022-02-02 23:59 | disposition home or self-care (01) ==
PROVIDERS: PCP Family Medicine; Referring Provider Nurse Practitioner Family; Visit Provider Nurse Practitioner Family
DX: Z01.818 Encounter for other preprocedural examination (principal)
CPT/HCPCS: 71046

== ENCOUNTER 2022-02-03 14:20 | Inpatient (IN) | payer MEDICARE, BC, SELFPAY ==
[2022-02-03] VITALS (10 sets, daily range): BP systolic 91–126; BP diastolic 49–78; PULSE 61–93; RESP 11–22; TEMP 36.6–36.7; O2SAT 20–99; BMI 24.0; BMI 23.1
--- NOTE | 2022-02-03 15:10 | ED.VIS.DYS ---
HPI History of Present Illness Chief Complaint: Shortness of Breath Informant: patient Onset/Context/Timing Onset: Today Context: gradual Timing: Continuous Quality: Positive for Dyspnea on exertion Worsened by: Exertion Relieved by: Rest Associated Symptoms subjective and chills; Negative for cough, rhinorrhea, ear pain, fever, sore throat, sweats, clear sputum, white sputum, yellow sputum or green sputum Chest Pain: Positive for None Narrative Narrative: Patient presents with shortness of breath that began today. Patient states he felt short of breath when he woke up today. Patient states it was getting progressively worse while he was at dialysis. Patient states that he felt like he might have been fluid overloaded and that dialysis would help his breathing. Patient denies any fevers but admits to some subjective chills. Patient denies any cough. Patient denies any chest pain. Patient states his breathing is worse with any exertion and better with rest. Patient denies any nausea or vomiting. PFSH PFS Medical History (HFpEF) heart failure with preserved ejection fraction Acute blood loss anemia Acute on chronic respiratory failure with hypoxemia Acute respiratory failure Allergic rhinitis Anemia Anemia Atherosclerosis of coronary artery of [place] heart without angina pectoris Benign localized hyperplasia of prostate Cancer Cardiology follow-up encounter Carpal tunnel syndrome Chronic allergic rhinitis Chronic hypoxemic respiratory failure Chronic kidney disease, stage V requiring chronic dialysis Chronic otitis media Chronic steroid use CKD (chronic kidney disease) stage 4, GFR 15-29 ml/min Constipation COPD (chronic obstructive pulmonary disease) COPD (chronic obstructive pulmonary disease) Depression Diabetes mellitus Dialysis patient Dietary restriction Dry gangrene Elevated troponin Epistaxis ESRD (end stage renal disease) Essential (primary) hypertension Former smoker GI bleed (06/28/19) HFrEF (heart failure with reduced ejection fraction) History of non-ST elevation myocardial infarction (NSTEMI) (02/03/20) History of prostate cancer Hx of cardiovascular stress test Hx of echocardiogram Hyperlipidemia 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 Hyponatremia Incomplete right bundle branch block Insulin pump titration Insulin pump titration Ischemic cardiomyopathy 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) use of insulin Low back pain Mobitz type I Wenckebach atrioventricular block Neuralgia Non-STEMI (non-ST elevated myocardial infarction) Nonallopathic lesion of lumbar region Nonallopathic lesion of rib cage Nonallopathic lesion of sacral region Nonallopathic lesion of thoracic region, not elsewhere classified NSVT (nonsustained ventricular tachycardia) On home oxygen therapy Otalgia Otitis externa Overweight Pain in lower limb Paroxysmal atrial fibrillation (06/2019) Pedal edema Peripheral arterial disease Peripheral vascular insufficiency 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 Preoperative clearance Pulmonary nodule PVD (peripheral vascular disease) Reactive airway disease Serous otitis media Thoracic back pain Thoracic outlet syndrome Type I diabetes mellitus Urethral stricture Vitamin D deficiency Wax in ear Wears dentures Wears glasses Wears hearing aid in both ears Home Medications latanoprost 0.005 % eye drops 1 drp EACH EYE DAILY ml 11/15/17 [History Last Taken 03/25/20 06:00 1 DRP] brimonidine 0.2 % eye drops 1 drp LEFT EYE BID ml 10/01/19 [History Last Taken 05/05/21] timolol 0.5 % eye drops 1 drp EACH EYE DAILY ml 10/01/19 [History Last Taken 03/25/20 06:00 1 DRP] metoprolol succinate 25 mg tablet,extended release 24 hr 12.5 mg PO DAILY #45 tab 08/10/21 [Rx Last Taken Unknown] aspirin 81 mg PO DAILY 08/15/21 [History Last Taken Unknown] isosorbide mononitrate 30 mg tablet,extended release 24 hr 30 mg PO DAILY #90 tab 08/22/21 [Rx Last Taken Unknown] atorvastatin 80 mg tablet 80 mg PO QHS #90 tab 11/08/21 [Rx Last Taken Unknown] clopidogrel 75 mg tablet 75 mg PO DAILY #90 tab 11/08/21 [Rx Last Taken Unknown] albuterol sulfate 90 mcg/actuation aerosol inhaler 2 puff INHALATION Q4H PRN #8.5 g 11/15/21 [Rx Last Taken Unknown] Trelegy Ellipta 1 inh INHALATION DAILY 02/02/22 [History Last Taken Unknown] docusate calcium 240 mg PO BID 02/02/22 [History Last Taken Unknown] insulin lispro [Humalog U-100 Insulin] 150 unit SUBCUT .Q3DAY 02/02/22 [History Last Taken Unknown] lorazepam [Ativan] 0.5 mg PO TID PRN 02/03/22 [History Last Taken Unknown] Allergy/AdvReac Type Severity Reaction Status Date / Time amoxicillin [From Augmentin] Allergy Unknown Unknown Verified 02/02/22 14:03 clavulanic acid Allergy Unknown Unknown Verified 02/02/22 14:03 [From Augmentin] Sulfa (Sulfonamide Allergy Unknown Unknown Verified 02/02/22 14:03 Antibiotics) Family History Sister Diabetes Father Heart disease Surgical History H/O inguinal hernia repair H/O prostate biopsy History of appendectomy History of carpal tunnel surgery of left wrist History of coronary artery stent placement (06/29/19) History of femoropopliteal bypass (01/2021) History of left cataract extraction History of left heart catheterization (02/09/20) Hx of cardiac catheterization Hx of colonoscopy Problem with dialysis access (05/05/21) S/P bilateral foot surgery S/P rotator cuff repair Social History household members: spouse housing: house Smoking Status: Former smoker quit date: 11/12/13 pack-years: 53 how long ago did patient quit smokin years ago second hand exposure: No alcohol intake: never substance use type: does not use caffeine: Yes Type: coffee Number of servings: 1 ROS ROS ED Constitutional Constitutional ED: Reports chills; Denies fever(s) Eyes Eyes: Denies blurry vision or change in vision ENT ENT ED: Denies rhinorrhea or sore throat Cardiovascular Cardiovascular: Denies chest pain or palpitations Respiratory/Chest Respiratory/Chest: Reports dyspnea; Denies cough Gastrointestinal Gastrointestinal: Denies nausea or vomiting Genitourinary Genitourinary ED: Denies dysuria or hematuria Musculoskeletal Musculoskeletal: Denies back pain or neck pain Integumentary Denies abscess or rash Neurologic Neurologic: Denies headache(s) or weakness Allergic/Immunologic Allergic/Immunologic ED: Denies mouth swelling or urticaria EXAM Physical Exam Const Vital Signs: 02/03/22 14:23 02/03/22 14:43 02/03/22 16:22 Temperature 97.8 F 97.8 F 98.0 F Temperature Source Oral Oral Oral Pulse Rate 86 80 81 Respiratory Rate 22 H 19 H 19 H Respiratory Effort Normal Non-Labored Blood Pressure 93/49 L 109/57 L Blood Pressure Mean 63 74 Pulse Ox 96 97 96 Oxygen Delivery Method Non-Rebreather Nasal Cannula Room Air Oxygen Flow Rate (L/min) 15 4 02/03/22 17:36 02/03/22 18:04 Temperature 97.9 F Temperature Source Oral Pulse Rate 75 76 Respiratory Rate 17 16 Respiratory Effort Blood Pressure 97/56 L 108/61 Blood Pressure Mean 69 76 Pulse Ox 20 Oxygen Delivery Method Room Air Nasal Cannula Oxygen Flow Rate (L/min) 4 Positive well nourished and well developed General Appearance ED: well developed and NAD HEENT Reports moist mucous membranes Neck supple and no JVD Resp normal respiratory effort Auscultation: diminished lung sounds diffuse Cardio regular rate and regular rhythm GI non-tender Palpation: soft Extremity normal to inspection General Extremety ED: Negative for edema General Extremity: Negative for edema Neuro oriented x3, CN's II-XII intact bilaterally and no sensory deficits noted Sensorium / Orientation: alert Motor Exam: strength 5/5 throughout MDM MDM MDM Narrative Medical decision making narrative: EKG was obtained. On my interpretation, it shows atrial fibrillation with a rate of 79. QRS and QTc intervals are within normal limits. There is left axis deviation at -46. There are nonspecific ST-T wave changes. There is some T wave inversion in the inferior leads which is new compared to previous EKG dated 01/16/2022. PA and lateral chest x-ray was obtained. There are 2 views. On my interpretation, there are chronic changes. There is a left pleural effusion. This was unchanged compared to a previous x-ray done yesterday. Radiologist also interpreted the x-ray and agrees. CBC showed anemia with a hemoglobin of 10.2 and hematocrit 34.1. Comprehensive metabolic profile shows a BUN of 38 and creatinine of 3.61. These are consistent with prior results. Initial high-sensitivity troponin was 80. 2-hour repeat high-sensitivity troponin was 120. Patient was given aspirin. Case was discussed with the hospitalist. He will admit the patient to his service. Patient understood and was agreeable with the plan. All questions were answered. Lab Data Attestation: I reviewed the patient's lab results. Labs: Laboratory Results - last 24 hr 02/03/22 02/03/22 02/03/22 15:42 15:42 17:42 WBC 9.5 RBC 3.69 L Hgb 10.2 L Hct 34.1 L MCV 92.4 MCH 27.6 MCHC 29.9 L RDW Std Deviation 56.6 H RDW Coeff of Janel 16.8 H Plt Count 196 MPV 9.6 Immature Gran % (Auto) 0.600 Neut % (Auto) 88.1 H Lymph % (Auto) 2.9 L Mcmullen % (Auto) 8.0 Eos % (Auto) 0.1 Baso % (Auto) 0.3 Absolute Neuts (auto) 8.4 H Absolute Lymphs (auto) 0.28 L Nucleated RBC % 0 Differential Comment SCANNED Sodium 135 L Potassium 4.7 Chloride 95 L Carbon Dioxide 32.0 Anion Gap 8 BUN 38 H Creatinine 3.61 H Estim Creat Clear Calc 16.05 Est GFR (MDRD) Af Amer 21 L Est GFR (MDRD) Non-Af 17 L BUN/Creatinine Ratio 10.5 Glucose 136 H Calcium 8.9 Total Bilirubin 0.40 AST 13 L ALT 17 Alkaline Phosphatase 137 H Troponin I High Sens 80 H 120 H Total Protein 8.3 H Albumin 3.0 L Globulin 5.3 H Albumin/Globulin Ratio 0.6 L Radiography Chest X-Ray - ED: 2 View, Read by ED Physician, Read by Radiologist, Chronic Changes and Left Effusion Diagnostic Testing: Clinical Impression(s) from Imaging Studies Chest X-Ray 02/03/22 16:32 IMPRESSION: 1. Stable. Left pleural effusion. 2. Underlying fibrotic changes of the lungs. Electronically Signed: Conor Samaniego MD ([place]) at 16:46 EDT Reading Location ID and State: [address] [place] [address] , Service support , EKG Initial EKG: Interpretation: Atrial Fibrillation (79) and Non-Specific ST Changes Prior EKG tracings: available for review Prior: Changed (There is some T wave inversion in leads III and aVF which is new compared to previous EKG from 02/05/2022) Discharge Plan Triage Chief Complaint: Shortness of Breath ED Provider: Arnoldo Hagen Dx/Rx/DC Orders Clinical Impression: Dyspnea, Elevated troponin Prescriptions: No Action timolol 0.5 % drops 1 drp EACH EYE DAILY RF: 0 brimonidine 0.2 % drops 1 drp LEFT EYE BID RF: 0 albuterol sulfate 90 mcg/actuation HFA aerosol inhaler 2 puff INHALATION Q4H PRN (Reason: Sob &/Or Wheezing) Qty: 8.5 RF: 11 latanoprost 1 DROP bottle 1 drp EACH EYE DAILY RF: 0 aspirin 81 mg tablet,delayed release (DR/EC) 81 mg PO DAILY RF: 0 Humalog U-100 Insulin 100 unit/mL Cartridge 150 unit SUBCUT .Q3DAY RF: 0 docusate calcium 240 mg capsule 240 mg PO BID RF: 0 Trelegy Ellipta 200-62.5-25 mcg blister with device 1 inh inhalation DAILY RF: 0 lorazepam [Ativan] 0.5 mg tablet 0.5 mg PO TID PRN (Reason: Anxiety) RF: 0 metoprolol succinate 25 mg tablet extended release 24 hr 12.5 mg PO DAILY Qty: 45 RF: 3 isosorbide mononitrate 30 mg tablet extended release 24 hr 30 mg PO DAILY Qty: 90 RF: 3 atorvastatin 80 mg tablet 80 mg PO QHS Qty: 90 RF: 3 clopidogrel [Plavix] 75 mg tablet 75 mg PO DAILY Qty: 90 RF: 3 Primary Care Provider: Sb Bolanos Referrals: Sb Bolanos DO [Primary Care Provider] - Disposition Disposition: Acute Care Hospital [facility]
--- NOTE | 2022-02-03 15:15 | EKG12_ITS ---
Test Reason : SOB Blood Pressure : / mmHG Vent. Rate : 079 BPM Atrial Rate : 078 BPM P-R Int : 000 ms QRS Dur : 110 ms QT Int : 400 ms P-R-T Axes : 000 -46 226 degrees QTc Int : 458 ms Atrial fibrillation Left anterior fascicular block Inferior infarct , age undetermined ST & T wave abnormality, consider lateral ischemia Abnormal ECG Confirmed by JUAN SPAULDING, TD ([id number]), scientific editor TWIN ESPINOZA ([id number]) on 02/07/2022 11:10:00 AM Referred By: Simba Diaz Confirmed By:TD MARTINEZ MD
[2022-02-03 15:50] LABS: Absolute Lymphocyte Count 0.28 X10^3/uL (0.83-4.51); Absolute Neutrophil Count 8.4 X10^3/uL (2.0-7.7); Basophil# 0.03 X10^3/uL; Basophil% 0.3 % (0-1); Eosinophil# 0.01 X10^3/uL; Eosinophils% 0.1 % (0-5); Hematocrit 34.1 % (40-54); Hemoglobin 10.2 g/dL (13.0-16.5); Lymphocyte # 0.28 X10^3/ul (0.83-4.51); Lymphocyte % 2.9 % (19-41); Mean Corp Hgb Conc 29.9 g/dL (32-36); Mean Corpuscular Hgb 27.6 pg (27.0-32.0); Mean Corpuscular Volume 92.4 fL (80-94); Mean Platelet Vol. 9.6 fl (6.2-12.0); Monocyte# 0.76 X10^3/uL; NRBC Flagged by Analyzer 0 % (0-5); Neutrophil # 8.39 X10^3/uL (2.7-7.7); Neutrophil % 88.1 % (47-70); POSITIVE DIFFERENTIAL YES; Platelet Count 196 K/mm3 (150-450); RBC Distribution Width CV 16.8 % (11.6-14.6); RBC Distribution Width SD 56.6 fl (35.1-43.9); Red Blood Count 3.69 M/mm3 (4.6-6.2); White Blood Count 9.5 K/mm3 (4.4-11.0)
[2022-02-03 15:58] LABS: Differential Indicated SCAN CRITERIA MET
[2022-02-03 16:09] LABS: ALB/GLOB Ratio 0.6 RATIO (0.9-2.4); AST(SGOT) 13 U/L (15-37); Alanine Aminotransfer ALT/SGPT 17 U/L (16-61); Alkaline Phosphatase 137 U/L (45-117); Anion Gap 8 (5-15); BUN 38 mg/dL (7-18); BUN/Creat Ratio 10.5 RATIO (10-20); Calcium,Total 8.9 mg/dL (8.5-10.1); Chloride 95 mmol/L (98-107); Creatinine, Serum 3.61 mg/dL (0.70-1.30); EST Glomerular Filtration Rate 17 mL/min (>60); Est Glom Filt Rate - Afr Amer 21 mL/min (>60); Estimated Creatinine Clearance 16.05 ml/min; Globulin 5.3 g/dL (2.2-4.2); Glucose 136 mg/dL (74-106); Potassium 4.7 mmol/L (3.5-5.1); Protein, Total 8.3 g/dL (6.4-8.2); Sodium Level 135 mmol/L (136-145); Troponin-I HS 80 pg/mL (3.0-78.0)
--- NOTE | 2022-02-03 16:32 | RAD_ITS ---
STUDY: X-RAY CHEST REASON FOR EXAM: Male, 77 years old. Shortness of breath and dyspnea following dialysis this morning TECHNIQUE: PA and lateral views of the chest. COMPARISON: 02/02/2022 FINDINGS: EKG leads project over the chest. Stable size left pleural effusion. Scattered interstitial fibrotic lung changes stable. No pneumothorax. There is mild cardiac enlargement. Normal mediastinum and jessica. Normal visualized pulmonary arteries. There is atherosclerotic calcification of the aortic arch with tortuosity. There are diffuse degenerative changes of the visualized thoracic spine. Normal visualized ribs, clavicles, and shoulders. There is no demonstrated abnormality of the visualized soft tissue structures of the upper abdomen. RAD/Chest PA and Lateral IMPRESSION: 1. Stable. Left pleural effusion. 2. Underlying fibrotic changes of the lungs. Electronically Signed: Conor Samaniego MD ([place]) at 16:46 EDT ,
[2022-02-03 16:37] LABS: Differential Comment SCANNED
[2022-02-03] MEDS: HYDROcodone Bitartrate/Apap 5/325 Tablet PO (17:34)
[2022-02-03 18:16] LABS: Troponin-I HS 120 pg/mL (3.0-78.0)
--- NOTE | 2022-02-03 19:38 | PCM.HP.STD ---
HPI - General General Date of Admission: 02/03/22 [facility] dialysis center by ish.DIVYA HUSAIN, is a 77 M with multiple comorbidities as listed below was brought to ER from dialysis center by EMS for shortness of breath. Patient had shortness of breath in the morning therefore he went for dialysis to feel better thinking of fluid overload. He was removed about 2 L of fluid and felt better with regards to shortness of breath but he still not at baseline. Patient history of COPD, chronically on baseline 4 L of home oxygen and on inhaler at baseline and chronic HFpEF. He also had COVID-19 infection in August 2021 and has residual weakness since then. He denies chest pain, tightness or heaviness, wheezing last 1 or 2 weeks. Patient has a scheduled for left BKA for distal left forefoot gangrene by [facility]. Patient is also worried about his insulin pump will be taken off during hospital stay which I reassured that we will manage insulin pump during hospital course. Last time his hospital pump was turned off that caused high blood sugar resulting into cancellation of his surgery. Denies fever chills. He still makes some urine on off dialysis days no burning micturition. Denies cough, sputum, URI symptoms. Had pneumonia and COVID-19 vaccine with booster Chest x-ray initially reviewed and shows small chronic stable left pleural effusion. Underlying fibrotic changes of the lungs, chronic. Twelve-lead EKG shows sinus rhythm 79 beats per, LAD, LAFB, QTC 458 ms. QRS [address]-T changes in lateral leads similar to previous EKG of January 16, 2022. Vital signs and labs reviewed in the ED. Initial BP 93/49 improved to 108/61. Currently patient on 4 L of home oxygen. Heart rate 80/min. Afebrile. [facility] Medical History (HFpEF) heart failure with preserved ejection fraction Acute blood loss anemia Acute on chronic respiratory failure with hypoxemia Acute respiratory failure Allergic rhinitis Anemia Anemia Atherosclerosis of coronary artery of [place] heart without angina pectoris Benign localized hyperplasia of prostate Cancer Cardiology follow-up encounter Carpal tunnel syndrome Chronic allergic rhinitis Chronic hypoxemic respiratory failure Chronic kidney disease, stage V requiring chronic dialysis Chronic otitis media Chronic steroid use CKD (chronic kidney disease) stage 4, GFR 15-29 ml/min Constipation COPD (chronic obstructive pulmonary disease) COPD (chronic obstructive pulmonary disease) Depression Diabetes mellitus Dialysis patient Dietary restriction Dry gangrene Elevated troponin Epistaxis ESRD (end stage renal disease) Essential (primary) hypertension Former smoker GI bleed (06/28/19) HFrEF (heart failure with reduced ejection fraction) History of non-ST elevation myocardial infarction (NSTEMI) (02/03/20) History of prostate cancer Hx of cardiovascular stress test Hx of echocardiogram Hyperlipidemia 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 Hyponatremia Incomplete right bundle branch block Insulin pump titration Insulin pump titration Ischemic cardiomyopathy shelter (current) use of insulin Low back pain Mobitz type I Wenckebach atrioventricular block Neuralgia Non-STEMI (non-ST elevated myocardial infarction) Nonallopathic lesion of lumbar region Nonallopathic lesion of rib cage Nonallopathic lesion of sacral region Nonallopathic lesion of thoracic region, not elsewhere classified NSVT (nonsustained ventricular tachycardia) On home oxygen therapy Otalgia Otitis externa Overweight Pain in lower limb Paroxysmal atrial fibrillation (06/2019) Pedal edema Peripheral arterial disease Peripheral vascular insufficiency 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 Preoperative clearance Pulmonary nodule PVD (peripheral vascular disease) Reactive airway disease Serous otitis media Thoracic back pain Thoracic outlet syndrome Type I diabetes mellitus Urethral stricture Vitamin D deficiency Wax in ear Wears dentures Wears glasses Wears hearing aid in both ears Home Medications latanoprost 0.005 % eye drops 1 drp EACH EYE DAILY ml 11/15/17 [History Last Taken 03/25/20 06:00 1 DRP] brimonidine 0.2 % eye drops 1 drp LEFT EYE BID ml 10/01/19 [History Last Taken 05/05/21] timolol 0.5 % eye drops 1 drp EACH EYE DAILY ml 10/01/19 [History Last Taken 03/25/20 06:00 1 DRP] metoprolol succinate 25 mg tablet,extended release 24 hr 12.5 mg PO DAILY #45 tab 08/10/21 [Rx Last Taken Unknown] aspirin 81 mg PO DAILY 08/15/21 [History Last Taken Unknown] isosorbide mononitrate 30 mg tablet,extended release 24 hr 30 mg PO DAILY #90 tab 08/22/21 [Rx Last Taken Unknown] atorvastatin 80 mg tablet 80 mg PO QHS #90 tab 11/08/21 [Rx Last Taken Unknown] clopidogrel 75 mg tablet 75 mg PO DAILY #90 tab 11/08/21 [Rx Last Taken Unknown] albuterol sulfate 90 mcg/actuation aerosol inhaler 2 puff INHALATION Q4H PRN #8.5 g 11/15/21 [Rx Last Taken Unknown] Radha Ellipta 1 inh INHALATION DAILY 02/02/22 [History Last Taken Unknown] docusate calcium 240 mg PO BID 02/02/22 [History Last Taken Unknown] insulin lispro [Humalog U-100 Insulin] 150 unit SUBCUT .Q3DAY 02/02/22 [History Last Taken Unknown] lorazepam [Ativan] 0.5 mg PO TID PRN 02/03/22 [History Last Taken Unknown] Allergy/AdvReac Type Severity Reaction Status Date / Time amoxicillin [From Augmentin] Allergy Unknown Unknown Verified 02/02/22 14:03 clavulanic acid Allergy Unknown Unknown Verified 02/02/22 14:03 [From Augmentin] Sulfa (Sulfonamide Allergy Unknown Unknown Verified 02/02/22 14:03 Antibiotics) Family History Sister Diabetes Father Heart disease Surgical History H/O inguinal hernia repair H/O prostate biopsy History of appendectomy History of carpal tunnel surgery of left wrist History of coronary artery stent placement (06/29/19) History of femoropopliteal bypass (01/2021) History of left cataract extraction History of left heart catheterization (02/09/20) Hx of cardiac catheterization Hx of colonoscopy Problem with dialysis access (05/05/21) S/P bilateral foot surgery S/P rotator cuff repair Social History household members: spouse housing: house Smoking Status: Former smoker quit date: 11/12/13 pack-years: 53 how long ago did patient quit smokin years ago second hand exposure: No alcohol intake: never substance use type: does not use caffeine: Yes Type: coffee Number of servings: 1 ROS ROS Narrative Constitutional: Reports fatigue and weakness. Shortness of breath HEENT: Reports systems reviewed and no addt'l complaints, except as documented Respiratory/Chest: As mentioned in HPI Gastrointestinal: Denies coffee ground emesis, hematemesis or vomiting Genitourinary:On hemodialysis. Small urine output. Denies burning urination or new urinary tract symptoms Musculoskeletal: Reports joint pain and limited range of motion.Severe left foot pain. Limited mobility Neurologic: Denies seizure-like activity skin: Left necrotic/gangrenous forefoot Endocrinology: Diabetes mellitus type 2 on insulin pump.Reports systems reviewed and no addt'l complaints, except as documented Hematologic/Lymphatic: Reports systems reviewed and no addt'l complaints, except as documented Rest 14 ROS are negative except as mentioned in HPI Vital Signs Vital Signs Vital Signs: 02/03/22 14:23 02/03/22 14:43 02/03/22 16:22 Temperature 97.8 F 97.8 F 98.0 F Temperature Source Oral Oral Oral Pulse Rate 86 80 81 Respiratory Rate 22 H 19 H 19 H Respiratory Effort Normal Non-Labored Blood Pressure 93/49 L 109/57 L Blood Pressure Mean 63 74 Pulse Ox 96 97 96 Oxygen Delivery Method Non-Rebreather Nasal Cannula Room Air Oxygen Flow Rate (L/min) 15 4 02/03/22 17:36 02/03/22 18:04 Temperature 97.9 F Temperature Source Oral Pulse Rate 75 76 Respiratory Rate 17 16 Respiratory Effort Blood Pressure 97/56 L 108/61 Blood Pressure Mean 69 76 Pulse Ox 20 Oxygen Delivery Method Room Air Nasal Cannula Oxygen Flow Rate (L/min) 4 Weight Weight: 158 lb 8.198 oz Body Mass Index (BMI) 24.0 Physical Exam Narrative General: Alert, Oriented x3, Cooperative. BMI 24.1 kg/min risk HEENT: Very hard of hearing. Uses hearing aids.Atraumatic, PERRLA, EOMI, Normocephalic Oral: No Gingival or Mucosal Lesions/ Ulcerations Neck: Supple, No JVD, Negative Carotid Bruits Lungs: Air entry diminished in left lung base. No crepitation/rhonchi. Cardiovascular: Regular rate, Regular Rhythm, Normal S1, Normal S2, systolic murmur LLSB and cardiac apex. No palpable pulse over left PT and DP. Diminished left popliteal. Abdomen: Bowel Sounds Present, Soft, Non Tender, Non-Distended : No renal angle tenderness. No suprapubic tenderness. Extremities: No edema, Capillary Refill Less than 3 Seconds Skin: Black gangrenous left foot toes involving great toe. Musculoskeletal: No Tenderness to Palpation of Joints or Extremities. Decreased in muscle mass of extremities. Neurological: Cranial nerves II-XII grossly intact, DTR 2/4 and Symmetrical, Neuro grossly intact Psych/Mental Status: Flat affect. Results Lab / Micro Data Result Diagrams: 02/03/22 15:42 02/03/22 15:42 Labs: Laboratory Results - last 24 hr 02/03/22 15:42: WBC 9.5, RBC 3.69 L, Hgb 10.2 L, Hct 34.1 L, MCV 92.4, MCH 27.6, MCHC 29.9 L, RDW Std Deviation 56.6 H, RDW Coeff of Janel 16.8 H, Plt Count 196, MPV 9.6, Immature Gran % (Auto) 0.600, Neut % (Auto) 88.1 H, Lymph % (Auto) 2.9 L, [place] % (Auto) 8.0, Eos % (Auto) 0.1, Baso % (Auto) 0.3, Absolute Neuts (auto) 8.4 H, Absolute Lymphs (auto) 0.28 L, Nucleated RBC % 0, Differential Comment SCANNED 02/03/22 15:42: Sodium 135 L, Potassium 4.7, Chloride 95 L, Carbon Dioxide 32.0, Anion Gap 8, BUN 38 H, Creatinine 3.61 H, Estim Creat Clear Calc 16.05, Est GFR (MDRD) Af Amer 21 L, Est GFR (MDRD) Non-Af 17 L, BUN/Creatinine Ratio 10.5, Glucose 136 H, Calcium 8.9, Total Bilirubin 0.40, AST 13 L, ALT 17, Alkaline Phosphatase 137 H, Troponin I High Sens 80 H, Total Protein 8.3 H, Albumin 3.0 L, Globulin 5.3 H, Albumin/Globulin Ratio 0.6 L 02/03/22 17:42: Troponin I High Sens 120 H Radiology Impression Chest X-Ray 02/03/22 16:32 IMPRESSION: 1. Stable. Left pleural effusion. 2. Underlying fibrotic changes of the lungs. Electronically Signed: Conor Samaniego MD ([place]) at 16:46 EDT Reading Location ID and State: / [place] , Service support , Assessment & Plan Assessment/Plan (1) Elevated troponin: PLAN: 1. Acute shortness of breath possible related to fluid overload, acute on chronic HFpEF: Patient is being admitted in PCU. He felt slightly better on dialysis but still not at baseline. Blood pressure is on lower side, systolic 100 but seems in baseline fluctuates between 100 to 120 mmHg. Later Lasix 20 mg IV 1 dose if blood pressure permits. Nephrology consult for dialysis. 2. Chronic hypoxic respiratory failure with history of advanced COPD with fibrotic lung disease, history of COVID-19 in August 2021 and heart failure/cardiorenal disease: Patient does not have chest pain tightness. Currently on baseline 4 L of oxygen. No wheezing/chest tightness therefore no acute COPD exacerbation. Patient had troponin Heisey done in ER and is elevated, 18 and 120. Cycle troponin enzymes. Exact indication of troponin elevation unclear, possible related to demand ischemia with history of chronic heart failure and coronary artery status post stents. Patient had elevated troponin in the past. 2D echo did not show wall motion abnormality mild global dysfunction. 3 End-stage renal disease on dialysis-[place] sports physical therapist is consulted. Patient follows Dr. Reyes and dialysis schedule according to him. 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 Patient is scheduled for left below-knee amputation by Dr. Lacy on coming . Last arterial Doppler shows monophasic blood flow in left foot 5. Diabetes mellitus type 2 on insulin pump. Patient very adamant to keep insulin pump. He follows Dr. Heredia. Last time insulin pump was turned off and he had hyperglycemia related to canceling of surgery. 6. Coronary artery disease status post stent with history of non-STEMI, arrhythmia with LAD, LAFB, NSVT,: Continue long-acting nitrate and metoprolol. Patient has 2 stents to his LAD, circumflex and first obtuse marginal artery. RCA totally occluded with [id number] collaterals. 7 glaucoma-continue home eyedrops. 8. Multiple comorbidities which include paroxysmal A. fib, NSVT, dyslipidemia, history of prostate cancer but not on chemotherapy. Living will/advanced directive/end of life care: Patient does have living will or advanced directive. After discussion of benefits/risks procedures involved with full code, DNR CC arrest and DNR CC, the patient, his and son opted for DNRCC arrest with no intubation. Opted for full code. Patient doesn't want artificial life support including intubation, tube feed, ventilator and/chest compression, central venous catheter, vasopressor and DC shock if needed Total time spent in [id number] encounter in discussion of advanced directive 16 minutes. Charges/Coding Visit Charges Inpatient E&M: 34310 Init Hosp L3 Procedures Hospitalists Procedures: 81096 Advncd Care Plan 30 Min
[2022-02-03] MEDS: Ipratropium/Albuterol Sulfate 3 ML AMPUL.NEB INHALATION (20:03)
[2022-02-03] MEDS: Aspirin 81 MG TAB.CHEW 324 MG PO (20:11)
[2022-02-03 20:43] LABS: Magnesium 2.2 mg/dL (1.6-2.6)
[2022-02-03 20:57] LABS: BNP,B-Type NATRIURETIC PEPTIDE 1058.3 pg/mL (0-100)
[2022-02-03] MEDS: Morphine 2 MG/ML Syringe IV (22:23)
[2022-02-03] MEDS: BRIMONIDINE 0.2% 5ML BOTTLE 1 DRP LEFT EYE (22:26)
[2022-02-03] MEDS: Senna/Docusate Sodium 1 Tablet 2 TABLET PO (22:26)
[2022-02-03] MEDS: Heparin Injection (Vial) 5,000 UNIT/ML VIAL 5000 UNIT SC (22:27)
[2022-02-03] MEDS: Atorvastatin Calcium 80 MG Tablet PO (22:27)
[2022-02-03] MEDS: Latanoprost 0.005% 1 Bottle 1 DRP OPHTHALMIC (22:32)
[2022-02-03 23:55] LABS: D-Dimer Quantitative (DVT/PE) 3.22 FEU/ug/m (0.27-0.49)
[2022-02-04] VITALS (14 sets, daily range): BP systolic 104–127; BP diastolic 48–61; PULSE 57–90; RESP 16–20; TEMP 36.4–37.2; O2SAT 94–100
--- NOTE | 2022-02-04 00:02 | CT_ITS ---
EXAM: CT ANGIOGRAPHY CHEST WITHOUT AND WITH INTRAVENOUS CONTRAST CLINICAL INDICATION: sob, high d-dimer -- R/O PE TECHNIQUE: Helically acquired angiography images were obtained of the chest without and with intravenous contrast. CTDIvol = ( 9.32 ) mGy, DLP = ( 412.77 ) mGycm This CT exam was performed using one or more of the following dose reduction techniques: automated exposure control, adjustment of the mA and/or kV according to patient size, and/or use of iterative reconstruction technique. This report was created using [employer] report generation technology. MIP reconstructed images were created and reviewed. CONTRAST: IV 75mL [id number] COMPARISON: None. FINDINGS: PULMONARY ARTERIES: No PE. Normal in caliber. No evidence of pulmonary embolism. AORTA: No aortic aneurysm or dissection. GREAT VESSELS OF AORTIC ARCH: Unremarkable. Normal in caliber. No evidence of dissection. LUNGS AND PLEURAL SPACES: Small right pleural effusion with adjacent passive atelectasis. Moderate to large left pleural effusion with partial atelectasis involving the left lower lobe. Extensive centrilobular emphysema. Spiculated mass at the right upper lobe measuring up to 1.[address] for further investigation. A second spiculated mass is also identified measuring up to 1.2 cm at the 4 caudal aspect of the right upper lobe anterolaterally. No pneumothorax. HEART: Cardiopericardial without pericardial effusion. Multivessel calcific coronary arteriosclerosis. No signs of right heart strain, ratio of right ventricle to left ventricle measures less than 1. MEDIASTINUM: Unremarkable. No mediastinal or hilar adenopathy. Esophagus is unremarkable. No hiatal hernia. THYROID: Unremarkable. No thyroid lesions. BONES/JOINTS: Unremarkable. No suspicious lytic or blastic abnormality. LYMPH NODES: No adenopathy by CT size criteria. GALLBLADDER AND BILE DUCTS: Cholelithiasis. No acute cholecystitis. CT/CTA Chest W/WO Contrast IMPRESSION: 1. Couple of spiculated right upper lobe masses measuring up to 1.[address] for further investigation. 2. Moderate to large left pleural effusion. 3. Cholelithiasis without acute cholecystitis. Electronically Signed: Mumtaz Mendez MD at 1:03 EDT ,
[2022-02-04] MEDS: oxyCODONE 5 MG Tablet PO ×5 (00:16→21:25)
[2022-02-04] MEDS: Acetaminophen 325 MG Tablet 650 MG PO ×4 (00:16→23:50)
[2022-02-04 01:06] LABS: Troponin-I HS 203 pg/mL (3.0-78.0)
[2022-02-04] MEDS: 0.9% Normal Saline 1,000 ML 50 ML IV (01:29)
[2022-02-04] MEDS: Heparin Injection (Vial) 5,000 UNIT/ML VIAL 5000 UNIT SC ×3 (05:01→21:22)
[2022-02-04 05:15] LABS: Absolute Lymphocyte Count 0.66 X10^3/uL (0.83-4.51); Absolute Neutrophil Count 3.2 X10^3/uL (2.0-7.7); Basophil# 0.05 X10^3/uL; Eosinophil# 0.09 X10^3/uL; Eosinophils% 1.9 % (0-5); Hemoglobin 8.6 g/dL (13.0-16.5); Lymphocyte # 0.66 X10^3/ul (0.83-4.51); Lymphocyte % 13.6 % (19-41); Mean Corp Hgb Conc 30.7 g/dL (32-36); Mean Corpuscular Hgb 27.6 pg (27.0-32.0); Mean Corpuscular Volume 89.7 fL (80-94); Monocyte# 0.78 X10^3/uL; Monocyte% 16.1 % (0-10); NRBC Flagged by Analyzer 0 % (0-5); Neutrophil # 3.24 X10^3/uL (2.7-7.7); Platelet Count 161 K/mm3 (150-450); RBC Distribution Width CV 16.8 % (11.6-14.6); RBC Distribution Width SD 54.4 fl (35.1-43.9); Red Blood Count 3.12 M/mm3 (4.6-6.2); White Blood Count 4.8 K/mm3 (4.4-11.0)
[2022-02-04 05:45] LABS: Anion Gap 7 (5-15); BUN 53 mg/dL (7-18); BUN/Creat Ratio 12.4 RATIO (10-20); Chloride 93 mmol/L (98-107); Cholesterol 96 mg/dL (200); Creatinine, Serum 4.27 mg/dL (0.70-1.30); EST Glomerular Filtration Rate 14 mL/min (>60); Est Glom Filt Rate - Afr Amer 17 mL/min (>60); Estimated Creatinine Clearance 13.57 ml/min; Glucose 81 mg/dL (74-106); High Density Lipoprotein 32 mg/dL; Phosphorus 3.7 mg/dL (2.5-4.9); Potassium 4.2 mmol/L (3.5-5.1); Sodium Level 132 mmol/L (136-145); Thyroid Stim Hormone (TSH) 0.79 uIU/mL (0.358-3.74); Triglycerides 124 mg/dL; Very Low Density Lipoprotein 25 mg/dL (5-40)
[2022-02-04] MEDS: Ipratropium/Albuterol Sulfate 3 ML AMPUL.NEB INHALATION ×5 (07:25→22:15)
[2022-02-04] MEDS: Isosorbide Mononitrate 30 MG Tablet PO (10:05)
[2022-02-04] MEDS: Metoprolol(XL)Succ 25 MG Tablet 12.5 MG PO (10:06)
[2022-02-04] MEDS: Clopidogrel Bisulfate 75 MG Tablet PO (10:06)
[2022-02-04] MEDS: Timolol 0.5% 5ML OPTH.BTL 1 DRP OPHTHALMIC (10:08)
[2022-02-04] MEDS: Aspirin E.C. 81 MG Tablet PO (10:08)
[2022-02-04] MEDS: BRIMONIDINE 0.2% 5ML BOTTLE 1 DRP LEFT EYE ×2 (10:08→21:20)
[2022-02-04] MEDS: Senna/Docusate Sodium 1 Tablet 2 TABLET PO ×2 (10:10→21:23)
--- NOTE | 2022-02-04 11:23 | PN.HOSP_ITS ---
Documented by User: Torie Hastings NP, [employer]G [employer]OPPER-C 02/04/22 11:35 Subjective Subjective Patient seen and examined. Reports he continues to feel short of breath. Denies cough, fever, chills. Reports left foot pain and states he is to have surgical intervention with Dr. Lacy end of next week. Objective Data Objective Data Vital Signs: Vital Signs Temp Pulse Resp BP Pulse Ox 97.8 F 76 20 H 116/48 L 100 02/04/22 09:52 02/04/22 10:06 02/04/22 09:52 02/04/22 09:52 02/04/22 09:52 Oxygen Flow Rate (L/min) 4 Oxygen Delivery Method Nasal Cannula Weight: 157 lb 10.088 oz Body Mass Index (BMI) 23.1 Intake & Output: Intake and Output for Last 24 Hours 02/02/22 02/03/22 02/04/22 23:59 23:59 23:59 Intake Total 805.83 / 805.83 Balance 805.83 / 805.83 Lab / Micro Data Result Diagrams: 02/04/22 04:43 02/04/22 04:43 Labs: Laboratory Results - last 24 hr 02/03/22 15:42: WBC 9.5, RBC 3.69 L, Hgb 10.2 L, Hct 34.1 L, MCV 92.4, MCH 27.6, MCHC 29.9 L, RDW Std Deviation 56.6 H, RDW Coeff of Janel 16.8 H, Plt Count 196, MPV 9.6, Immature Gran % (Auto) 0.600, Neut % (Auto) 88.1 H, Lymph % (Auto) 2.9 L, Morgan % (Auto) 8.0, Eos % (Auto) 0.1, Baso % (Auto) 0.3, Absolute Neuts (auto) 8.4 H, Absolute Lymphs (auto) 0.28 L, Nucleated RBC % 0, Differential Comment SCANNED 02/03/22 15:42: Sodium 135 L, Potassium 4.7, Chloride 95 L, Carbon Dioxide 32.0, Anion Gap 8, BUN 38 H, Creatinine 3.61 H, Estim Creat Clear Calc 16.05, Est GFR (MDRD) Af Amer 21 L, Est GFR (MDRD) Non-Af 17 L, BUN/Creatinine Ratio 10.5, Glucose 136 H, Calcium 8.9, Total Bilirubin 0.40, AST 13 L, ALT 17, Alkaline Phosphatase 137 H, Troponin I High Sens 80 H, Total Protein 8.3 H, Albumin 3.0 L , Globulin 5.3 H, Albumin/Globulin Ratio 0.6 L 02/03/22 15:42: B-Natriuretic Peptide 1058.3 H 02/03/22 17:42: Troponin I High Sens 120 H 02/03/22 17:42: Magnesium 2.2 02/03/22 22:56: D-Dimer Quant (PE/DVT) 3.22 H* 02/04/22 00:14: Troponin I High Sens 203 H* 02/04/22 04:43: WBC 4.8, RBC 3.12 L, Hgb 8.6 L, Hct 28.0 L, MCV 89.7, MCH 27.6, MCHC 30.7 L, RDW Std Deviation 54.4 H, RDW Coeff of Janel 16.8 H, Plt Count 161, MPV 11.0, Immature Gran % (Auto) 0.400, Neut % (Auto) 67.0, Lymph % (Auto) 13.6 L, Morgan % (Auto) 16.1 H, Eos % (Auto) 1.9, Baso % (Auto) 1.0, Absolute Neuts (auto) 3.2, Absolute Lymphs (auto) 0.66 L, Nucleated RBC % 0 02/04/22 04:43: Sodium 132 L, Potassium 4.2, Chloride 93 L, Carbon Dioxide 32.0, Anion Gap 7, BUN 53 H, Creatinine 4.27 H, Estim Creat Clear Calc 13.57, Est GFR (MDRD) Af Amer 17 L, Est GFR (MDRD) Non-Af 14 L, BUN/Creatinine Ratio 12.4, Glucose 81, Calcium 8.0 L, Phosphorus 3.7, Triglycerides 124, Cholesterol 96, LDL Cholesterol 39, VLDL Cholesterol 25, HDL Cholesterol 32 L, TSH 0.79 Radiography Diagnostic Testing: Radiology Impression Chest X-Ray 02/03/22 16:32 IMPRESSION: 1. Stable. Left pleural effusion. 2. Underlying fibrotic changes of the lungs. Electronically Signed: Conor Samaniego MD (Bro[facility]) at 16:46 EDT , Chest CTA 02/04/22 00:02 IMPRESSION: 1. Couple of spiculated right upper lobe masses measuring up to 1.[address] for further investigation. 2. Moderate to large left pleural effusion. 3. Cholelithiasis without acute cholecystitis. Electronically Signed: Mumtaz Mendez MD at 1:03 EDT , Physical Exam Const alert, oriented x3 and no apparent distress Constitutional Narrative: Appears dyspneic. Orientation / Consciousness: awake, oriented to person, oriented to place and oriented to time HEENT normocephalic and moist oral mucous membranes Eyes PERRL, EOMs intact bilaterally and conjunctivae normal Neck no lymphadenopathy Resp Auscultation: crackles and diminished lung sounds Cardio regular rate, regular rhythm and no murmurs Peripheral Pulses: pulses 2+ throughout GI normal to inspection, nondistended, normoactive bowel sounds, non-tender and non-distended Extremity normal to inspection Skin no rashes or lesions noted Skin Narrative: Gangrenous toes left foot. Lesions: no lesions Rashes: no rashes Trauma: no lacerations or abrasions Neuro CN's II-XII intact bilaterally, no focal motor deficits, no sensory deficits noted and deep tendon reflexes 2+ bilaterally Psych mental status grossly normal and affect normal Assessment & Plan Assessment/Plan (1) (HFpEF) heart failure with preserved ejection fraction: PLAN: 1. Worsening dyspnea, secondary to acute on chronic heart failure with preserved ejection fraction, complicated by underlying end-stage renal disease on hemodialysis and advanced COPD-continue supplemental oxygen to maintain O2 above 90%. On 4 L at baseline. Currently on baseline requirements. 2. End-stage renal disease on hemodialysis-nephrology consulted for dialysis. 3. Acute on chronic heart failure with preserved ejection fraction- echocardiogram August 2021 demonstrated an EF of 40%, stage I diastolic dysfunction, mild to moderate aortic stenosis, pulmonary artery systolic pressure 36 mmHg. BNP greater than 1000. CT of chest with moderate to large left pleural effusion. Will reevaluate following dialysis. 4. Spiculated right upper lobe lung mass-1.6 cm per CTA. Will need further out patient follow-up.. 5. Chronic hypoxic respiratory failure secondary to advanced COPD with fibrotic lung disease-continue home supplemental oxygen. As needed albuterol aerosol. 6. Peripheral vascular disease, left foot gangrenous toes-scheduled for left below the knee amputation on by Dr. Lacy. Continue aspirin, statin, Plavix. 7. Type 2 diabetes mellitus-on insulin pump. Follows with endocrinology. Continue Accu-Cheks. Patient adamant about using home pump. 8. CAD with history of stent-continue medical management including aspirin, statin, Plavix, metoprolol, isosorbide. 9. Paroxysmal atrial fibrillation-continue metoprolol. Not on anticoagulation. 10. History of prostate cancer 11. Hyperlipidemia-continue statin. 12. Normocytic anemia/anemia of chronic disease-appears stable. DVT prophylaxis- heparin sc This patient was seen by Torie Hastings NP-C under the supervision of Dr. Medellin. Time spent examining patient, reviewing data and subsequent management of care: 14 Minutes Documented by User: Dr. Jase Medellin DO 02/04/22 12:41 Objective Data Lab / Micro Data Result Diagrams: 02/04/22 04:43 02/04/22 04:43 Charges/Coding Addendum Addendum: Patient seen and examined independently of Torie Hastings today, his was in the room at the time of my examination. Also talked with nephrology concerning his care today. Patient has what appears to be a chronic left pleural effusion, he is currently on the same oxygen setting is on at home, he does not appear to be in any respiratory distress. Patient states that he is having quite a bit of pain in his left foot on a chronic basis due to peripheral vascular disease, he is due to undergo a below the knee amputation on the left leg this . He question whether the surgery could be moved up and I told him that it would probably not be possible due to scheduling conflicts with surgery. Patient's is okay with him waiting till to have it done. On examination he appeared in good health and spirits. Vital signs as documented. Skin warm and dry and without overt rashes. Neck without JVD, neck was supple, trachea midline, thyroid was normal. Lungs clear bilaterally, decreased breath sounds are noted at the left lung base. Heart exam notable for regular rhythm, normal sounds and absence of murmurs, rubs or gallops. Abdomen unremarkable and without evidence of organomegaly, masses, or abdominal aortic enlargement. Bowel sounds are present, abdomen is not distended. Extremities nonedematous, no cyanosis was noted, no clubbing was noted. Neuro: Cranial nerves II through XII are grossly intact, no focal motor deficits were noted, sensation to light touch and pinprick intact, motor exam 5/5 throughout. Psych: Patient is alert and oriented x3, he does not appear anxious or depressed, he does not appear agitated. Impression: #1 dyspnea secondary to fluid overload, patient again is on his home oxygen setting at rest, he will have dialysis today according to nephrology. Patient will be reevaluated tomorrow for possible discharge home. #2 chronic hypoxic respiratory failure secondary to advanced COPD-again patient is on his same oxygen setting he is on at home at rest. I do not feel that performing a left thoracentesis would be of any benefit to the patient. #3 end-stage renal disease on dialysis-patient will be seen by nephrology today, I expect he will have dialysis today. #4 peripheral vascular disease with advanced dry gangrene of the left foot with resulting pain-again patient is going to be undergoing a left below the knee amputation this #5 type 2 diabetes-patient is currently on an insulin pump I have reviewed Torie Hastings's progress note including her medical assessment and plan of care and with the above additions endorse it. Total clinical time spent by myself addressing the patient's issues, reviewing the patient's medical data, and collaborating with the patient's care team: 22 minutes Visit Charges Inpatient E&M: [id number] [facility] Hosp L3
--- NOTE | 2022-02-04 11:32 | CON.PCM.RE_ITS ---
Assessment & Plan Assessment/Plan (1) ESRD (end stage renal disease) on dialysis: PLAN: -The patient usually dialyzes on MWF schedule at [facility]. He was dialyzed yesterday prior to admission. -However, I will dialyze him again today since IV contrast was given last night. -We will also remove more fluid to see if this would help with his dyspnea. -Nephrology plan discussed with Dr. Medellin. (2) Anemia: PLAN: -The patient receives long-acting LAUREL at kidney center. -No need to redose LAUREL today. -Follow hemoglobin. (3) Peripheral vascular occlusive disease: PLAN: -The patient is scheduled for left BKA later this week. (4) Dyspnea: PLAN: -Likely multifactorial. The patient has COPD and recent Covid 19 infection. The patient also has known chronic left pleural effusion. -There is likely some component of volume overload with his left pleural effusion. We will ultrafilter the patient further with dialysis today as well. HPI Consult Data Date of Consult: 02/04/22 HPI Narrative Reason for Consultation: ESRD, dialysis management HPI Narrative: The patient is a 77-year-old man who is known to our service with ESRD. The patient also has a history of CAD, heart failure with preserved ejection fraction, COPD, PAD and type 2 diabetes mellitus. The patient presented to the hospital on 02/03/2022 because of dyspnea which occurred during hemodialysis treatment. 2 L of fluid was removed with dialysis yesterday, but the patient did not improve symptomatically. He was admitted to the hospital for further investigation and treatment. The patient underwent a CT PE yesterday that did not reveal pulmonary embolism. The patient has moderately large left pleural effusion which is chronic. He denies chest pain, nausea, vomiting, or increasing lower extremity edema. The patient typically dialyzes on a MWF schedule at [facility]. [facility] Medical History (HFpEF) heart failure with preserved ejection fraction Acute blood loss anemia Acute on chronic respiratory failure with hypoxemia Acute respiratory failure Allergic rhinitis Anemia Anemia Atherosclerosis of coronary artery of [place] heart without angina pectoris Benign localized hyperplasia of prostate Cancer Cardiology follow-up encounter Carpal tunnel syndrome Chronic allergic rhinitis Chronic hypoxemic respiratory failure Chronic kidney disease, stage V requiring chronic dialysis Chronic otitis media Chronic steroid use CKD (chronic kidney disease) stage 4, GFR 15-29 ml/min Constipation COPD (chronic obstructive pulmonary disease) COPD (chronic obstructive pulmonary disease) Depression Diabetes mellitus Dialysis patient Dietary restriction Dry gangrene Elevated troponin Epistaxis ESRD (end stage renal disease) Essential (primary) hypertension Former smoker GI bleed (06/28/19) HFrEF (heart failure with reduced ejection fraction) History of non-ST elevation myocardial infarction (NSTEMI) (02/03/20) History of prostate cancer Hx of cardiovascular stress test Hx of echocardiogram Hyperlipidemia 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 Hyponatremia Incomplete right bundle branch block Insulin pump titration Insulin pump titration Ischemic cardiomyopathy halfway (current) use of insulin Low back pain Mobitz type I Wenckebach atrioventricular block Neuralgia Non-STEMI (non-ST elevated myocardial infarction) Nonallopathic lesion of lumbar region Nonallopathic lesion of rib cage Nonallopathic lesion of sacral region Nonallopathic lesion of thoracic region, not elsewhere classified NSVT (nonsustained ventricular tachycardia) On home oxygen therapy Otalgia Otitis externa Overweight Pain in lower limb Paroxysmal atrial fibrillation (06/2019) Pedal edema Peripheral arterial disease Peripheral vascular insufficiency 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 Preoperative clearance Pulmonary nodule PVD (peripheral vascular disease) Reactive airway disease Serous otitis media Thoracic back pain Thoracic outlet syndrome Type I diabetes mellitus Urethral stricture Vitamin D deficiency Wax in ear Wears dentures Wears glasses Wears hearing aid in both ears Home Medications latanoprost 0.005 % eye drops 1 drp EACH EYE DAILY ml 11/15/17 [History Last Taken 03/25/20 06:00 1 DRP] brimonidine 0.2 % eye drops 1 drp LEFT EYE BID ml 10/01/19 [History Last Taken 05/05/21] timolol 0.5 % eye drops 1 drp EACH EYE DAILY ml 10/01/19 [History Last Taken 03/25/20 06:00 1 DRP] metoprolol succinate 25 mg tablet,extended release 24 hr 12.5 mg PO DAILY #45 tab 08/10/21 [Rx Last Taken Unknown] aspirin 81 mg PO DAILY 08/15/21 [History Last Taken Unknown] isosorbide mononitrate 30 mg tablet,extended release 24 hr 30 mg PO DAILY #90 tab 08/22/21 [Rx Last Taken Unknown] atorvastatin 80 mg tablet 80 mg PO QHS #90 tab 11/08/21 [Rx Last Taken Unknown] clopidogrel 75 mg tablet 75 mg PO DAILY #90 tab 11/08/21 [Rx Last Taken Unknown] albuterol sulfate 90 mcg/actuation aerosol inhaler 2 puff INHALATION Q4H PRN #8.5 g 11/15/21 [Rx Last Taken Unknown] Trelezoe Ellipta 1 inh INHALATION DAILY 02/02/22 [History Last Taken Unknown] docusate calcium 240 mg PO BID 02/02/22 [History Last Taken Unknown] insulin lispro [Humalog U-100 Insulin] 150 unit SUBCUT .Q3DAY 02/02/22 [History Last Taken Unknown] lorazepam [Ativan] 0.5 mg PO TID PRN 02/03/22 [History Last Taken Unknown] Allergy/AdvReac Type Severity Reaction Status Date / Time amoxicillin [From Augmentin] Allergy Unknown Unknown Verified 02/02/22 14:03 clavulanic acid Allergy Unknown Unknown Verified 02/02/22 14:03 [From Augmentin] Sulfa (Sulfonamide Allergy Unknown Unknown Verified 02/02/22 14:03 Antibiotics) Family History Sister Diabetes Father Heart disease Surgical History H/O inguinal hernia repair H/O prostate biopsy History of appendectomy History of carpal tunnel surgery of left wrist History of coronary artery stent placement (06/29/19) History of femoropopliteal bypass (01/2021) History of left cataract extraction History of left heart catheterization (02/09/20) Hx of cardiac catheterization Hx of colonoscopy Problem with dialysis access (05/05/21) S/P bilateral foot surgery S/P rotator cuff repair Social History household members: spouse housing: house Smoking Status: Former smoker quit date: 11/12/13 pack-years: 53 how long ago did patient quit smokin years ago second hand exposure: No alcohol intake: never substance use type: does not use caffeine: Yes Type: coffee Number of servings: 1 ROS ROS Narrative As per HPI. Otherwise NC. Physical Exam Narrative General: Alert and oriented x3, NAD HEENT: Normocephalic, atraumatic. Mucous membrane is moist. PERRLA, EOMI. Hearing is intact. Neck: Supple, no JVD. Heart: Normal S1, S2. There is a 3/6 systolic murmur. No rubs. Lungs: Decreased breath sound at bases bilaterally. Abdomen: Normal bowel sound, soft, nontender, no guarding or rebound. Extremity: No clubbing or cyanosis. There is 2+ lower extremity edema bilaterally. Musculoskeletal: Full passive range of motion. There is no joint swelling. Skin: No rash. Skin is warm and dry. Psychiatric: Normal mood and affect. Lab / Micro Data Result Diagrams: 02/04/22 04:43 02/04/22 04:43 Labs: Laboratory Results - last 24 hr 02/03/22 15:42: WBC 9.5, RBC 3.69 L, Hgb 10.2 L, Hct 34.1 L, MCV 92.4, MCH 27.6, MCHC 29.9 L, RDW Std Deviation 56.6 H, RDW Coeff of Janel 16.8 H, Plt Count 196, MPV 9.6, Immature Gran % (Auto) 0.600, Neut % (Auto) 88.1 H, Lymph % (Auto) 2.9 L, Edwards % (Auto) 8.0, Eos % (Auto) 0.1, Baso % (Auto) 0.3, Absolute Neuts (auto) 8.4 H, Absolute Lymphs (auto) 0.28 L, Nucleated RBC % 0, Differential Comment SCANNED 02/03/22 15:42: Sodium 135 L, Potassium 4.7, Chloride 95 L, Carbon Dioxide 32.0, Anion Gap 8, BUN 38 H, Creatinine 3.61 H, Estim Creat Clear Calc 16.05, Est GFR (MDRD) Af Amer 21 L, Est GFR (MDRD) Non-Af 17 L, BUN/Creatinine Ratio 10.5, Glucose 136 H, Calcium 8.9, Total Bilirubin 0.40, AST 13 L, ALT 17, Alkaline Phosphatase 137 H, Troponin I High Sens 80 H, Total Protein 8.3 H, Albumin 3.0 L , Globulin 5.3 H, Albumin/Globulin Ratio 0.6 L 02/03/22 15:42: B-Natriuretic Peptide 1058.3 H 02/03/22 17:42: Troponin I High Sens 120 H 02/03/22 17:42: Magnesium 2.2 02/03/22 22:56: D-Dimer Quant (PE/DVT) 3.22 H* 02/04/22 00:14: Troponin I High Sens 203 H* 02/04/22 04:43: WBC 4.8, RBC 3.12 L, Hgb 8.6 L, Hct 28.0 L, MCV 89.7, MCH 27.6, MCHC 30.7 L, RDW Std Deviation 54.4 H, RDW Coeff of Janel 16.8 H, Plt Count 161, MPV 11.0, Immature Gran % (Auto) 0.400, Neut % (Auto) 67.0, Lymph % (Auto) 13.6 L, Edwards % (Auto) 16.1 H, Eos % (Auto) 1.9, Baso % (Auto) 1.0, Absolute Neuts (auto) 3.2, Absolute Lymphs (auto) 0.66 L, Nucleated RBC % 0 02/04/22 04:43: Sodium 132 L, Potassium 4.2, Chloride 93 L, Carbon Dioxide 32.0, Anion Gap 7, BUN 53 H, Creatinine 4.27 H, Estim Creat Clear Calc 13.57, Est GFR (MDRD) Af Amer 17 L, Est GFR (MDRD) Non-Af 14 L, BUN/Creatinine Ratio 12.4, Glucose 81, Calcium 8.0 L, Phosphorus 3.7, Triglycerides 124, Cholesterol 96, LDL Cholesterol 39, VLDL Cholesterol 25, HDL Cholesterol 32 L, TSH 0.79 Radiology Impression Chest X-Ray 02/03/22 16:32 IMPRESSION: 1. Stable. Left pleural effusion. 2. Underlying fibrotic changes of the lungs. Electronically Signed: Conor Samaniego MD (Brooks) at 16:46 EDT Reading Location ID and State: [address] [place] [address] , Service support , Chest CTA 02/04/22 00:02 IMPRESSION: 1. Couple of spiculated right upper lobe masses measuring up to 1.[address] for further investigation. 2. Moderate to large left pleural effusion. 3. Cholelithiasis without acute cholecystitis. Electronically Signed: Mumtaz Mendez MD at 1:03 EDT ,
[2022-02-04] MEDS: Morphine 2 MG/ML Syringe IV ×2 (15:13→23:55)
[2022-02-04] MEDS: 0.9% Saline Lock 10 ML Syringe IV ×2 (15:13→23:57)
--- NOTE | 2022-02-04 15:30 | CASEMGMT ---
N CM readmission note: Prior admission: Pt admitted 01/16/22 w/acute on chronic resp failure. Pt discharged home on 01/18/22. See Lisa PARISI CM, assessment 01/16/22. Pt discharged home 01/18/22. Current admission: Admitted 02/03/22 w/SOB. AILIN SHEPPARD to room to talk w/pt and , [place], who is at bedside. Pt currently receiving HD. Pt and state pt has been compliant w/all medications and has went to all f/u appts. Pt is scheduled for Lt BKA this coming . states, We follow every rule there is to follow. Pt gets OP HD @ [facility] MWF @ 1110. Pt wears O2 @ 4l/m continuous. states will bring portable O2 in for pt to go home on @ D/C. Pt and deny having any discharge or home-going needs or concerns. Rosita ELIZABETH RN, CM
--- NOTE | 2022-02-04 21:03 | NURSING ---
Pt on own glucose monitor and insulin pump. Current blood glucose is 245
[2022-02-04] MEDS: Latanoprost 0.005% 1 Bottle 1 DRP OPHTHALMIC (21:21)
[2022-02-04] MEDS: Atorvastatin Calcium 80 MG Tablet PO (21:22)
[2022-02-05] VITALS (16 sets, daily range): BP systolic 117–126; BP diastolic 50–58; PULSE 73–93; RESP 17–21; TEMP 36.6–37; O2SAT 100
[2022-02-05] MEDS: oxyCODONE 5 MG Tablet PO (02:10)
[2022-02-05] MEDS: Ipratropium/Albuterol Sulfate 3 ML AMPUL.NEB INHALATION ×5 (02:17→23:42)
[2022-02-05] MEDS: HYDROmorphone 1 MG/ML Syringe IV ×3 (03:10→15:25)
[2022-02-05] MEDS: 0.9% Saline Lock 10 ML Syringe IV ×3 (03:12→15:26)
[2022-02-05] MEDS: Heparin Injection (Vial) 5,000 UNIT/ML VIAL 5000 UNIT SC ×3 (05:57→21:03)
--- NOTE | 2022-02-05 06:00 | NURSING ---
Pt blood glucose 230, has own insulin pump.
[2022-02-05 06:41] LABS: Absolute Lymphocyte Count 0.57 X10^3/uL (0.83-4.51); Absolute Neutrophil Count 3.8 X10^3/uL (2.0-7.7); Basophil# 0.04 X10^3/uL; Basophil% 0.7 % (0-1); Eosinophil# 0.22 X10^3/uL; Hemoglobin 8.3 g/dL (13.0-16.5); Lymphocyte # 0.57 X10^3/ul (0.83-4.51); Lymphocyte % 10.5 % (19-41); Mean Corp Hgb Conc 30.7 g/dL (32-36); Mean Corpuscular Hgb 27.9 pg (27.0-32.0); Mean Corpuscular Volume 90.6 fL (80-94); Mean Platelet Vol. 10.8 fl (6.2-12.0); Monocyte% 14.7 % (0-10); NRBC Flagged by Analyzer 0 % (0-5); Neutrophil % 69.7 % (47-70); POSITIVE DIFFERENTIAL YES; Platelet Count 163 K/mm3 (150-450); RBC Distribution Width CV 16.9 % (11.6-14.6); RBC Distribution Width SD 55.3 fl (35.1-43.9); Red Blood Count 2.98 M/mm3 (4.6-6.2); White Blood Count 5.5 K/mm3 (4.4-11.0)
[2022-02-05 06:58] LABS: Differential Indicated SCAN CRITERIA MET
[2022-02-05 06:59] LABS: Anion Gap 7 (5-15); BUN 46 mg/dL (7-18); BUN/Creat Ratio 11.3 RATIO (10-20); Calcium,Total 8.5 mg/dL (8.5-10.1); Chloride 97 mmol/L (98-107); Creatinine, Serum 4.08 mg/dL (0.70-1.30); EST Glomerular Filtration Rate 15 mL/min (>60); Est Glom Filt Rate - Afr Amer 18 mL/min (>60); Glucose 144 mg/dL (74-106); Potassium 4.6 mmol/L (3.5-5.1); Sodium Level 132 mmol/L (136-145)
[2022-02-05 08:17] LABS: Iron 37 ug/dL (65-175); Iron Binding Capacity,Total 162 ug/dL (250-450); PERCENT IRON SATURATION 22.8 % (15.0-55.0)
--- NOTE | 2022-02-05 09:05 | NURSING ---
States I can't breathe. Pulse ox 99% on 4l oxygen. RT called for PRN breathing treatment.
[2022-02-05] MEDS: Albuterol 2.5 MG/3 ML VIAL.NEB. INHALATION (09:24)
[2022-02-05] MEDS: Isosorbide Mononitrate 30 MG Tablet PO (10:25)
[2022-02-05] MEDS: Aspirin E.C. 81 MG Tablet PO (10:25)
[2022-02-05] MEDS: Clopidogrel Bisulfate 75 MG Tablet PO (10:26)
[2022-02-05] MEDS: BRIMONIDINE 0.2% 5ML BOTTLE 1 DRP LEFT EYE ×2 (10:26→21:01)
[2022-02-05] MEDS: Senna/Docusate Sodium 1 Tablet 2 TABLET PO ×2 (10:26→21:02)
[2022-02-05] MEDS: Metoprolol(XL)Succ 25 MG Tablet 12.5 MG PO (10:27)
[2022-02-05] MEDS: Timolol 0.5% 5ML OPTH.BTL 1 DRP OPHTHALMIC (10:28)
--- NOTE | 2022-02-05 11:02 | PCM.PN.REN ---
Subjective Subjective Following for ESRD. The patient is complaining of left foot pain. He denies chest pain. Shortness of breath is slightly better. There is no nausea or vomiting. Objective Data Objective Data Vital Signs: Vital Signs Temp Pulse Resp BP Pulse Ox 98 F 93 20 H 125/50 H 100 02/05/22 08:58 02/05/22 10:02/05/22 10:00 02/05/22 10:02/05/22 10:00 Oxygen Flow Rate (L/min) 4 Oxygen Delivery Method Nasal Cannula Weight: 70.7 kg Body Mass Index (BMI) 23.1 Intake & Output: Intake and Output for Last 24 Hours 02/03/22 02/04/22 02/05/22 23:59 23:59 23:59 Intake Total 1285.83 / 1705.83 660 / 660 Output Total Balance 1285.83 / 1705.83 650 / 650 Lab / Micro Data Result Diagrams: 02/05/22 06:10 02/05/22 06:10 Labs: Laboratory Results - last 24 hr 02/05/22 06:10: WBC 5.5, RBC 2.98 L, Hgb 8.3 L, Hct 27.0 L, MCV 90.6, MCH 27.9, MCHC 30.7 L, RDW Std Deviation 55.3 H, RDW Coeff of Janel 16.9 H, Plt Count 163, MPV 10.8, Immature Gran % (Auto) 0.400, Neut % (Auto) 69.7, Lymph % (Auto) 10.5 L, [place] % (Auto) 14.7 H, Eos % (Auto) 4.0, Baso % (Auto) 0.7, Absolute Neuts (auto) 3.8, Absolute Lymphs (auto) 0.57 L, Nucleated RBC % 0 02/05/22 06:10: Sodium 132 L, Potassium 4.6, Chloride 97 L, Carbon Dioxide 28.0, Anion Gap 7, BUN 46 H, Creatinine 4.08 H, Estim Creat Clear Calc 14.20, Est GFR (MDRD) Af Amer 18 L, Est GFR (MDRD) Non-Af 15 L, BUN/Creatinine Ratio 11.3, Glucose 144 H, Calcium 8.5 02/05/22 06:10: Iron 37 L, TIBC 162 L, Iron Saturation 22.8 Physical Exam Narrative General: Alert and oriented x3, NAD HEENT: Normocephalic, atraumatic. Mucous membrane is moist. Neck: Supple, no JVD. Heart: Normal S1, S2. There is a 3/6 systolic murmur. No rubs. Lungs: Decreased breath sound at bases bilaterally. Abdomen: Normal bowel sound, soft, nontender, no guarding or rebound. Extremity: No clubbing or cyanosis. There is 2+ lower extremity edema bilaterally. Assessment & Plan Assessment/Plan (1) ESRD (end stage renal disease) on dialysis: PLAN: -The patient usually dialyzes on MWF schedule at [facility]. He was dialyzed on 02/03/2022 prior to admission. -However, I dialyzed him again on 02/04/2022 since IV contrast was given and he is volume overloaded. -We will also remove more fluid tomorrow to see if this would help with his dyspnea. -Nephrology plan discussed with Dr. Medellin. (2) Anemia: PLAN: -The patient receives long-acting LAUREL at kidney center. -No need to redose LAUREL today. -Follow hemoglobin. (3) Peripheral vascular occlusive disease: PLAN: -The patient is scheduled for left BKA later this week. (4) Dyspnea: PLAN: -Likely multifactorial. The patient has COPD and recent Covid 19 infection. The patient also has known chronic left pleural effusion. -There is likely some component of volume overload with his left pleural effusion. We have ultrafiltered the patient further with dialysis today as well. -Plan on further fluid removal tomorrow if blood pressure is not too low. -Ultimately, the patient may need thoracentesis since effusion is more difficult to remove with dialysis.
--- NOTE | 2022-02-05 12:12 | PCM.PN.HOSP ---
Documented by User: Torie Hastings NP, CATERPILLAR TRACTOR OPERATOR-C 02/05/22 12:25 Subjective Subjective Patient seen and examined. Reports increased shortness of breath this morning. States his breathing seemed to have improved after dialysis and overnight. Patient also tearful due to left foot/toe pain. States he has not been able to sleep due to severe pain. Objective Data Objective Data Vital Signs: Vital Signs Temp Pulse Resp BP Pulse Ox 98 F 93 20 H 125/50 H 100 02/05/22 08:58 02/05/22 10:02/05/22 10:00 02/05/22 10:02/05/22 10:00 Oxygen Flow Rate (L/min) 4 Oxygen Delivery Method Nasal Cannula Weight: 155 lb 13.869 oz Body Mass Index (BMI) 23.1 Intake & Output: Intake and Output for Last 24 Hours 02/03/22 02/04/22 02/05/22 23:59 23:59 23:59 Intake Total 1285.83 / 1705.83 660 / 660 Output Total 10 Balance 1285.83 / 1705.83 650 / 650 Lab / Micro Data Result Diagrams: 02/05/22 06:10 02/05/22 06:10 Labs: Laboratory Results - last 24 hr 02/05/22 06:10: WBC 5.5, RBC 2.98 L, Hgb 8.3 L, Hct 27.0 L, MCV 90.6, MCH 27.9, MCHC 30.7 L, RDW Std Deviation 55.3 H, RDW Coeff of Janel 16.9 H, Plt Count 163, MPV 10.8, Immature Gran % (Auto) 0.400, Neut % (Auto) 69.7, Lymph % (Auto) 10.5 L, [place] % (Auto) 14.7 H, Eos % (Auto) 4.0, Baso % (Auto) 0.7, Absolute Neuts (auto) 3.8, Absolute Lymphs (auto) 0.57 L, Nucleated RBC % 0 02/05/22 06:10: Sodium 132 L, Potassium 4.6, Chloride 97 L, Carbon Dioxide 28.0, Anion Gap 7, BUN 46 H, Creatinine 4.08 H, Estim Creat Clear Calc 14.20, Est GFR (MDRD) Af Amer 18 L, Est GFR (MDRD) Non-Af 15 L, BUN/Creatinine Ratio 11.3, Glucose 144 H, Calcium 8.5 02/05/22 06:10: Iron 37 L, TIBC 162 L, Iron Saturation 22.8 Physical Exam Const alert, oriented x3 and no apparent distress Constitutional Narrative: Appears anxious, dyspneic Orientation / Consciousness: awake, oriented to person, oriented to place and oriented to time HEENT normocephalic and moist oral mucous membranes Eyes PERRL, EOMs intact bilaterally and conjunctivae normal Neck no lymphadenopathy Resp normal respiratory effort and clear to auscultation bilaterally Cardio regular rate, regular rhythm and no murmurs Peripheral Pulses: pulses 2+ throughout GI normal to inspection, nondistended, normoactive bowel sounds, non-tender and non-distended Extremity normal to inspection Skin no rashes or lesions noted Skin Narrative: Gangrenous toes left foot Lesions: no lesions Rashes: no rashes Trauma: no lacerations or abrasions Neuro CN's II-XII intact bilaterally, no focal motor deficits, no sensory deficits noted and deep tendon reflexes 2+ bilaterally Psych mental status grossly normal and affect normal Assessment & Plan Assessment/Plan (1) Chronic hypoxemic respiratory failure: (2) (HFpEF) heart failure with preserved ejection fraction: PLAN: 1. Worsening dyspnea, secondary to acute on chronic heart failure with preserved ejection fraction with large left pleural effusion, complicated by underlying end-stage renal disease on hemodialysis and advanced COPD-continue supplemental oxygen to maintain O2 above 90%. On 4 L at baseline. Currently on baseline requirements. 2. End-stage renal disease on hemodialysis-nephrology consulted for dialysis. 3. Acute on chronic heart failure with preserved ejection fraction-echocardiogram August 2021 demonstrated an EF of 40%, stage I diastolic dysfunction, mild to moderate aortic stenosis, pulmonary artery systolic pressure 36 mmHg. BNP greater than 1000. CT of chest with moderate to large left pleural effusion. Continue dialysis as scheduled. 4. Large left pleural effusion-continues to have shortness of breath following dialysis. Plan for diagnostic and therapeutic thoracentesis in a.m. 5. Spiculated right upper lobe lung mass-1.6 cm per CTA. Will need further outpatient follow-up. Patient to undergo thoracentesis as noted above and will send fluid for cytology. 6. Chronic hypoxic respiratory failure secondary to advanced COPD with fibrotic lung disease-continue home supplemental oxygen. As needed albuterol aerosol. 7. Peripheral vascular disease, left foot gangrenous toes with intractable pain-scheduled for left below the knee amputation on by Dr. Lacy. Continue aspirin, statin, Plavix. Will discuss with orthopedic medicine if they are able to move surgery up as patient is having severe pain and does not feel he can wait until . 8. Type 2 diabetes mellitus-on insulin pump. Follows with endocrinology. Continue Accu-Cheks. Patient adamant about using home pump. 9. CAD with history of stent-continue medical management including aspirin, statin, Plavix, metoprolol, isosorbide. 10. Paroxysmal atrial fibrillation-continue metoprolol. Not on anticoagulation. 11. History of prostate cancer 12. Hyperlipidemia-continue statin. 13. Normocytic anemia/anemia of chronic disease-appears stable. DVT prophylaxis- heparin sc This patient was seen by SHIVAM Dey under the supervision of Dr. Medellin. Time spent examining patient, reviewing data and subsequent management of care: 12 Minutes Documented by User: Dr. Jase Medellin, 02/05/22 17:24 Objective Data Lab / Micro Data Result Diagrams: 02/05/22 06:10 02/05/22 06:10 Charges/Coding Addendum Addendum: Patient was seen and examined today independently of Torie Hastings, he complains of constipation, I have given him some lactulose today he also continues to complain of left lower leg pain. Finally, patient continues to complain of some shortness of breath, I feel it would be appropriate to do a thoracentesis tomorrow to remove the left pleural effusion if possible. I talked briefly with nephrology about his care also. On examination he appeared older than his stated age. Vital signs as documented. Skin warm and dry, there is evidence of dry gangrene over the patient's left foot and toes. Neck without JVD, neck was supple, trachea midline, thyroid was normal. Lungs clear bilaterally, normal air movement was noted. Heart exam notable for regular rhythm, normal sounds and absence of murmurs, rubs or gallops. Abdomen unremarkable and without evidence of organomegaly, masses, or abdominal aortic enlargement. Bowel sounds are present, abdomen is not distended. Extremities-there is evidence of dry gangrene on the patient's left foot and toes. Neuro: Cranial nerves II through XII are grossly intact, no focal motor deficits were noted, sensation to light touch and pinprick intact, motor exam 5/5 throughout. Psych: Patient is alert and oriented x3, he does not appear anxious or depressed, he does not appear agitated. #1 dyspnea secondary to fluid overload, patient again is on his home oxygen setting at rest, patient will have dialysis tomorrow #2 chronic hypoxic respiratory failure secondary to advanced COPD-again patient is on his same oxygen setting he is on at home at rest. To optimize the patient's medical status for surgery on , I think it is appropriate to attempt a left thoracentesis tomorrow. #3 end-stage renal disease on dialysis-patient will be dialyzed again tomorrow #4 peripheral vascular disease with advanced dry gangrene of the left foot with resulting pain-again patient is going to be undergoing a left below the knee amputation this , I have decided to place the patient on MS Contin, he is getting IV Dilaudid as needed #5 type 2 diabetes-patient is currently on an insulin pump I reviewed Torie Hastings's progress note including her medical assessment and plan of care and with the above additions endorse it. Total clinical time spent by myself addressing the patient's medical issues, reviewing the patient's medical data, and collaborating with the patient's care team: 20-minute Visit Charges Inpatient E&M: 12346 Subs Hosp L2
--- NOTE | 2022-02-05 12:15 | US_ITS ---
PROCEDURE: ULTRASOUND GUIDED THORACENTESIS. DATE: 02/06/2021.. INDICATION: Male, 77 years old. Left pleural effusion. PHYSICIAN: Fabricio Shah M.D. PROCEDURE: The risks, benefits, and alternatives to the procedure were explained to the patient. The specific risks of bleeding, infection, and pneumothorax requiring chest tube insertion were discussed and accepted. Written informed consent was obtained. Ultrasonographic evaluation of the left lower pleural space was carried out. An adequate pocket was identified. The patient was placed in the sitting, upright position. The overlying skin was prepped and draped in sterile fashion. 1% lidocaine was administered subcutaneously for local anesthesia. Under ultrasound guidance, a 5 Jordanian thoracentesis needle/catheter system was advanced into the left posterior lower pleural fluid collection. Approximately 600 mL of phillip-colored fluid was drained. The catheter was removed, and a sterile dressing was applied. A specimen was collected and sent to the laboratory for analysis, as requested by the referring clinician. The patient tolerated the procedure well. A chest x-ray was ordered. US/Thoracentesis W US IMPRESSION: Ultrasound-guided left thoracentesis. Electronically Signed: Fabricio Shah MD at 14:33 EDT ,
[2022-02-05 12:43] LABS: ALB/GLOB Ratio 0.6 RATIO (0.9-2.4); Globulin 4.3 g/dL (2.2-4.2); LDH 187 U/L (87-241); Protein, Total 6.9 g/dL (6.4-8.2)
[2022-02-05] MEDS: Lactulose 20 GM/30 ML UDC 30 GM PO ×3 (13:11→20:00)
[2022-02-05] MEDS: morphine SR 15 MG Tablet PO (13:12)
[2022-02-05] MEDS: LORazepam 1 MG Tablet PO (13:13)
--- NOTE | 2022-02-05 15:40 | NURSING ---
1530 pt blood glucose 244, patient with own insulin pump. Aide Farr RN
--- NOTE | 2022-02-05 16:56 | NURSING ---
1655 pt blood glucose 230, patient had own insulin pump Aide Farr RN
[2022-02-05] MEDS: Latanoprost 0.005% 1 Bottle 1 DRP OPHTHALMIC (21:01)
[2022-02-05] MEDS: Atorvastatin Calcium 80 MG Tablet PO (21:02)
[2022-02-05] MEDS: morphine SR 15 MG Tablet 30 MG PO (21:02)
--- NOTE | 2022-02-05 21:09 | NURSING ---
Pt glucose 244, pt states he will take insulin.
[2022-02-06] VITALS (17 sets, daily range): BP systolic 102–129; BP diastolic 43–67; PULSE 71–101; RESP 16–22; TEMP 36.8–37.1; O2SAT 95–100
--- NOTE | 2022-02-06 | IMM_PTH ---
PATIENT: DIVYA HUSAIN LOC: [facility] U#:[id number] AGE/SX: 77/M ROOM: [facility] RE02/03/[address]: Dr. Lisa Perez MD : 1945 BED: 1 DIS: 02/17/2022 SPEC #: [id number] RECD: 02/08/22 13:21 STATUS: DRAGAN REQ #: [id number] JONO: 02/06/22 00:[address]: Vero Moser DEPT: IMMUNOHISTOCHEMISTRY RECD BY: Abril Woods ENTERED: 02/08/22 13:22 SP TYPE: IMMUNO OTHR DR: MD Dr. Sb Sykes, DO Dr. Dev Bolanos, MD Dr. Flynn Araiza Dr., MD Mariaelena Vazquez Dr., FITNESS TRAINER-C Tissues: THORACIC FLUID Procedures: BCL-2 (add) CD138 (add) CD20 (add) CD43 (add) CD45 (add) CD5 (add) CD79A (add) CD3 (initial) PHYSICIAN & [place] [id number] SPECIMEN INFORMATION: Tissue Source: Thoracentesis Clinical Info: Left pleural effusion Specimen Number: [id number] CPT code: 45920, 66746 x7 METHODOLOGY: Deparaffinized sections of prefer/formalin-fixed tissue or PAP/DQ stained slides are incubated with monoclonal/polyclonal antibodies/oligonucleotide probes. Localization is made via biotin free immunoperoxidase method. Appropriate controls are performed and reacted as expected. Results on target cell population are indicated in the following table: RESULTS: ANTIBODY / CLONE RESULT CD3 (PS1) positive CD5 (SP10) positive CD20 (L26) negative CD43 (L60) positive CD45 (RP2/18) positive CD79a (11E3) positive, rare CD138 (B-A38) negative BCL-2 (bcl-2/100/D5) positive These tests were developed and their performance characteristics determined by [facility]. They may not have been cleared or approved by the U.S. Food and Drug Administration. The FDA has determined that such clearance or approval is not necessary. The above immunohistochemical/dualISH markers are ordered and reviewed by the Pathologist. INTERPRETATION: Thoracentesis (cell block): Polytypic (benign) lymphocytic population. See comment. AM:kimberly 02/09/2022 Comment: The specimen primarily contains small T-lymphocytes.
[2022-02-06] MEDS: 0.9% Saline Lock 10 ML Syringe IV (00:50)
[2022-02-06] MEDS: HYDROmorphone 1 MG/ML Syringe IV ×2 (00:50→20:20)
[2022-02-06] MEDS: Ipratropium/Albuterol Sulfate 3 ML AMPUL.NEB INHALATION ×6 (03:17→23:04)
--- NOTE | 2022-02-06 05:20 | NURSING ---
Pt blood glucose 245, pt administer own insulin via pump.
[2022-02-06 06:49] LABS: Absolute Lymphocyte Count 0.44 X10^3/uL (0.83-4.51); Basophil# 0.03 X10^3/uL; Basophil% 0.5 % (0-1); Eosinophil# 0.18 X10^3/uL; Eosinophils% 2.7 % (0-5); Hematocrit 27.6 % (40-54); Hemoglobin 8.6 g/dL (13.0-16.5); Lymphocyte # 0.44 X10^3/ul (0.83-4.51); Lymphocyte % 6.6 % (19-41); Mean Corp Hgb Conc 31.2 g/dL (32-36); Mean Corpuscular Hgb 28.2 pg (27.0-32.0); Mean Corpuscular Volume 90.5 fL (80-94); Mean Platelet Vol. 10.9 fl (6.2-12.0); Monocyte# 0.95 X10^3/uL; Monocyte% 14.3 % (0-10); NRBC Flagged by Analyzer 0 % (0-5); Neutrophil # 5.02 X10^3/uL (2.7-7.7); Neutrophil % 75.4 % (47-70); POSITIVE DIFFERENTIAL YES; Platelet Count 184 K/mm3 (150-450); RBC Distribution Width SD 56.7 fl (35.1-43.9); Red Blood Count 3.05 M/mm3 (4.6-6.2); White Blood Count 6.7 K/mm3 (4.4-11.0)
[2022-02-06 06:52] LABS: Differential Indicated SCAN CRITERIA MET
[2022-02-06 07:00] LABS: International Normalized Ratio 1.2; Prothrombin Time (Protime)PT. 14.6 SECONDS (11.7-14.9)
[2022-02-06 07:07] LABS: Anisocytosis 1+
[2022-02-06 07:08] LABS: Anion Gap 12 (5-15); BUN 54 mg/dL (7-18); BUN/Creat Ratio 10.4 RATIO (10-20); Calcium,Total 8.3 mg/dL (8.5-10.1); Chloride 95 mmol/L (98-107); Creatinine, Serum 5.17 mg/dL (0.70-1.30); EST Glomerular Filtration Rate 12 mL/min (>60); Est Glom Filt Rate - Afr Amer 14 mL/min (>60); Estimated Creatinine Clearance 11.21 ml/min; Glucose 142 mg/dL (74-106); Potassium 4.1 mmol/L (3.5-5.1); Sodium Level 133 mmol/L (136-145)
[2022-02-06] MEDS: LORazepam 1 MG Tablet PO ×2 (08:08→18:20)
[2022-02-06] MEDS: morphine SR 15 MG Tablet 30 MG PO ×2 (11:49→21:39)
[2022-02-06] MEDS: Metoprolol(XL)Succ 25 MG Tablet 12.5 MG PO (11:49)
[2022-02-06] MEDS: Aspirin E.C. 81 MG Tablet PO (11:50)
[2022-02-06] MEDS: Timolol 0.5% 5ML OPTH.BTL 1 DRP OPHTHALMIC (11:50)
[2022-02-06] MEDS: Isosorbide Mononitrate 30 MG Tablet PO (11:50)
[2022-02-06] MEDS: BRIMONIDINE 0.2% 5ML BOTTLE 1 DRP LEFT EYE ×2 (11:51→21:42)
--- NOTE | 2022-02-06 12:08 | PCM.PN.HOSP ---
Documented by User: Torie Hastings NP, MANAGER CREDIT-C 02/06/22 12:14 Subjective Subjective Patient seen and examined. Undergoing dialysis. Continues to report shortness of breath. States left foot pain is better controlled on adjusted pain regimen. Objective Data Objective Data Vital Signs: Vital Signs Temp Pulse Resp BP Pulse Ox 98.2 F 93 16 128/67 H 96 02/06/22 11:55 02/06/22 11:55 02/06/22 11:55 02/06/22 11:55 02/06/22 11:55 Oxygen Flow Rate (L/min) 4 Oxygen Delivery Method Nasal Cannula Weight: 155 lb 10.342 oz Body Mass Index (BMI) 23.1 Intake & Output: Intake and Output for Last 24 Hours 02/04/22 02/05/22 02/06/22 23:59 23:59 23:59 Intake Total 1285.83 / 1705.83 1510 / 1750 480 / 480 Output Total 1075 / 1075 Balance 1285.83 / 1705.83 1500 / 1690 -595 / -595 Lab / Micro Data Result Diagrams: 02/06/22 06:27 02/06/22 06:27 Labs: Laboratory Results - last 24 hr 02/05/22 06:10: Lactate Dehydrogenase 187, Total Protein 6.9, Globulin 4.3 H, Albumin/Globulin Ratio 0.6 L 02/06/22 06:27: WBC 6.7, RBC 3.05 L, Hgb 8.6 L, Hct 27.6 L, MCV 90.5, MCH 28.2, MCHC 31.2 L, RDW Std Deviation 56.7 H, RDW Coeff of Janel 17.0 H, Plt Count 184, MPV 10.9, Immature Gran % (Auto) 0.500, Neut % (Auto) 75.4 H, Lymph % (Auto) 6.6 L, [place] % (Auto) 14.3 H, Eos % (Auto) 2.7, Baso % (Auto) 0.5, Absolute Neuts (auto) 5.0, Absolute Lymphs (auto) 0.44 L, Nucleated RBC % 0, Anisocytosis 1+ 02/06/22 06:27: PT 14.6, INR 1.2 02/06/22 06:27: Sodium 133 L, Potassium 4.1, Chloride 95 L, Carbon Dioxide 26.0, Anion Gap 12, BUN 54 H, Creatinine 5.17 H, Estim Creat Clear Calc 11.21, Est GFR (MDRD) Af Amer 14 L, Est GFR (MDRD) Non-Af 12 L, BUN/Creatinine Ratio 10.4, Glucose 142 H, Calcium 8.3 L Physical Exam Const alert, oriented x3 and no apparent distress Orientation / Consciousness: awake, oriented to person, oriented to place and oriented to time HEENT normocephalic and moist oral mucous membranes Eyes PERRL, EOMs intact bilaterally and conjunctivae normal Neck no lymphadenopathy Resp clear to auscultation bilaterally Auscultation: diminished lung sounds Cardio regular rate, regular rhythm and no murmurs Peripheral Pulses: pulses 2+ throughout GI normal to inspection, nondistended, normoactive bowel sounds, non-tender and non-distended Extremity normal to inspection Skin no rashes or lesions noted Skin Narrative: Gangrenous toes left foot Lesions: no lesions Rashes: no rashes Trauma: no lacerations or abrasions Neuro CN's II-XII intact bilaterally, no focal motor deficits, no sensory deficits noted and deep tendon reflexes 2+ bilaterally Psych mental status grossly normal and affect normal Assessment & Plan Assessment/Plan (1) Chronic hypoxemic respiratory failure: PLAN: 1. Worsening dyspnea, secondary to acute on chronic heart failure with preserved ejection fraction with large left pleural effusion, complicated by underlying end-stage renal disease on hemodialysis and advanced COPD-continue supplemental oxygen to maintain O2 above 90%. On 4 L at baseline. Currently on baseline requirements. 2. End-stage renal disease on hemodialysis-nephrology consulted for dialysis. 3. Acute on chronic heart failure with preserved ejection fraction-echocardiogram August 2021 demonstrated an EF of 40%, stage I diastolic dysfunction, mild to moderate aortic stenosis, pulmonary artery systolic pressure 36 mmHg. BNP greater than 1000. CT of chest with moderate to large left pleural effusion. Continue dialysis as scheduled. 4. Large left pleural effusion-continues to have shortness of breath following dialysis. Plan for diagnostic and therapeutic thoracentesis. 5. Spiculated right upper lobe lung mass-1.6 cm per CTA. Will need further outpatient follow-up. Patient to undergo thoracentesis as noted above and will send fluid for cytology. 6. Left foot gangrenous toes with intractable pain, PVD- scheduled for left below the knee amputation on by Dr. Lacy. Continue aspirin, statin, Plavix. Will likely need to remain inpatient for pain management until surgery. Plan for rehab following surgery. 7. Chronic hypoxic respiratory failure secondary to advanced COPD with fibrotic lung disease-continue home supplemental oxygen. As needed albuterol aerosol. 8. Type 2 diabetes mellitus-on insulin pump. Follows with endocrinology. Continue Accu-Cheks. Patient adamant about using home pump. 9. CAD with history of stent-continue medical management including aspirin, statin, Plavix, metoprolol, isosorbide. 10. Paroxysmal atrial fibrillation-continue metoprolol. Not on anticoagulation. 11. History of prostate cancer 12. Hyperlipidemia-continue statin. 13. Normocytic anemia/anemia of chronic disease-appears stable. DVT prophylaxis- heparin sc This patient was seen by Torie Hastings NP-C under the supervision of Dr. Moser. Time spent examining patient, reviewing data and subsequent management of care: 13 Minutes Documented by User: Dr. Vero Moser MD 02/06/22 17:50 Objective Data Lab / Micro Data Result Diagrams: 02/06/22 06:27 02/06/22 06:27 Charges/Coding Addendum Addendum: This patient was seen in conjunction with Basilio Darden NP. I have independently interviewed and examined the patient and reviewed pertinent historical, laboratory, and other data. I have reviewed her note and concur with her documentation. Patient was seen and examined. He complains of pain in in his left foot. He was seen on dialysis. Denied any new complaints Physical Exam: Gen: Comfortable, not pale, not jaundiced CVS:HS I +II, regular, no murmurs RESP: Diminished at lung bases GI: BS present and normal, soft, nontender, no palpable organs EXT:No edema ASSESSMENT: 1. Acute on chronic combined heart failure, EF 40%, stage I diastolic dysfunction 2. Left large pleural effusion 3. ESRD on hemodialysis 4. Right upper lobe lung mass 5. Left foot gangrene of toes 6. Chronic hypoxic respiratory failure/COPD 7. Type II DM 8. CAD status post stent 9. Paroxysmal atrial fibrillation Plan: Follow-up on thoracocentesis Follow-up with dialysis Continue aspirin, statin, metoprolol, isosorbide Hold Plavix and Eliquis Time spent coordinating patient's care, discussing with subspecialty and nursin minutes Visit Charges Inpatient E&M: 46385 Subs Hosp L2
--- NOTE | 2022-02-06 12:11 | PCM.PN.REN ---
Subjective Subjective no new events Objective Data Objective Data Vital Signs: Vital Signs Temp Pulse Resp BP Pulse Ox 98.2 F 93 16 128/67 H 96 02/06/22 11:55 02/06/22 11:55 02/06/22 11:55 02/06/22 11:55 02/06/22 11:55 Oxygen Flow Rate (L/min) 4 Oxygen Delivery Method Nasal Cannula Weight: 70.6 kg Body Mass Index (BMI) 23.1 Intake & Output: Intake and Output for Last 24 Hours 02/04/22 02/05/22 02/06/22 23:59 23:59 23:59 Intake Total 1285.83 / 1705.83 1510 / 1750 480 / 480 Output Total 1075 / 1075 Balance 1285.83 / 1705.83 1500 / 1690 -595 / -595 Lab / Micro Data Result Diagrams: 02/06/22 06:27 02/06/22 06:27 Labs: Laboratory Results - last 24 hr 02/05/22 06:10: Lactate Dehydrogenase 187, Total Protein 6.9, Globulin 4.3 H, Albumin/Globulin Ratio 0.6 L 02/06/22 06:27: WBC 6.7, RBC 3.05 L, Hgb 8.6 L, Hct 27.6 L, MCV 90.5, MCH 28.2, MCHC 31.2 L, RDW Std Deviation 56.7 H, RDW Coeff of Janel 17.0 H, Plt Count 184, MPV 10.9, Immature Gran % (Auto) 0.500, Neut % (Auto) 75.4 H, Lymph % (Auto) 6.6 L, [place] % (Auto) 14.3 H, Eos % (Auto) 2.7, Baso % (Auto) 0.5, Absolute Neuts (auto) 5.0, Absolute Lymphs (auto) 0.44 L, Nucleated RBC % 0, Anisocytosis 1+ 02/06/22 06:27: PT 14.6, INR 1.2 02/06/22 06:27: Sodium 133 L, Potassium 4.1, Chloride 95 L, Carbon Dioxide 26.0, Anion Gap 12, BUN 54 H, Creatinine 5.17 H, Estim Creat Clear Calc 11.21, Est GFR (MDRD) Af Amer 14 L, Est GFR (MDRD) Non-Af 12 L, BUN/Creatinine Ratio 10.4, Glucose 142 H, Calcium 8.3 L Physical Exam Narrative General: Alert and oriented x3, NAD HEENT: Normocephalic, atraumatic. Mucous membrane is moist. Neck: Supple, no JVD. Heart: Normal S1, S2. There is a 3/6 systolic murmur. No rubs. Lungs: Decreased breath sound at bases bilaterally. Abdomen: Normal bowel sound, soft, nontender, no guarding or rebound. Extremity: No clubbing or cyanosis. There is 2+ lower extremity edema bilaterally. Assessment & Plan Assessment/Plan (1) ESRD (end stage renal disease) on dialysis: PLAN: -The patient usually dialyzes on MWF schedule at [facility] [place]. seen on HD today (2) Anemia: PLAN: -The patient [facility] long-acting [facility] at [facility]. (3) Peripheral vascular occlusive disease: PLAN: -The patient is scheduled for left BKA later this week. (4) Dyspnea: PLAN: -Likely multifactorial. The patient has COPD and recent Covid 19 infection. The patient also has known chronic left pleural effusion. -There is likely some component of volume overload with his left pleural effusion. We have ultrafiltered the patient further with dialysis today as well. .
--- NOTE | 2022-02-06 12:44 | DIALYSIS ---
HD x 3 hours and 15 minutes complete. Tolerated tx well. Ran on 3k bath. UF of 1000ml. Used left arm fistula. Clarion removed post tx and pressure applied x 10 minutes. Hemostasis achieved. Fresh gauze and tape applied. Report was given to AILIN Granados.
[2022-02-06] MEDS: Lidocaine 2% (20 ml mdv) 20 ML Vial INFILT (13:45)
--- NOTE | 2022-02-06 13:45 | FLU_PTH ---
PATIENT: DIVYA HUSAIN LOC: [facility] U#:[id number] AGE/SX: 77/M ROOM: [facility] RE02/03/[address]: Dr. Lisa Perez MD : 1945 BED: 1 DIS: 02/17/2022 SPEC #: [id number] RECD: 02/06/22 14:01 STATUS: DRAGAN BA #: [id number] JONO: 02/06/22 13:[address]: Vero Moser DEPT: CYTOLOGY RECD BY: Keshav Moody ENTERED: 02/07/22 07:59 SP TYPE: Fluid OTHR DR: DO Dr. Allison Molina MD Dr. Prakash Chand, MD Tissues: THORACIC FLUID Procedures: Special Stain Group II Surgery Specimen Level IV Cytospin Fluid HEADER OPERATION: Thoracentesis PRE-OP DIAGNOSIS: Left pleural effusion TISSUE SUBMITTED: Thoracentesis fluid for cytology DIAGNOSIS CYTOLOGY Thoracentesis fluid for cytology (cytospin and cell block): Polytypic (benign) lymphocytic population. See comment. AM:kimberly 02/08/2022 COMMENT Immunohistochemistry ([id number]) supports the above diagnosis. CYTOLOGY STUDY Slides are reviewed. CYTOLOGY GROSS Received is 90 ml of cloudy yellow fluid labeled with the patient's name and and designated per the requisition as thoracentesis. Submitted for cytology preparation including cell block. / kimberly 02/07/2022 TC:5 CPT: 35963, 81690
--- NOTE | 2022-02-06 13:55 | RAD_ITS ---
STUDY: X-RAY CHEST REASON FOR EXAM: Male, 77 years old. Pneumothorax- immediately post thoracentesis TECHNIQUE: AP inspiration and expiration views. COMPARISON: Comparison is made with prior study 02/03/2022. FINDINGS: EKG electrodes are seen. The patient is status post left thoracentesis. No evidence of pneumothorax. Mild residual pleural-parenchymal changes at the left lung base. Normal size heart. Normal mediastinum and jessica. Normal visualized pulmonary arteries. There is atherosclerotic calcification of the aortic arch with tortuosity. There are diffuse degenerative changes of the visualized thoracic spine. Normal visualized ribs, clavicles, and shoulders. There is no demonstrated abnormality of the visualized soft tissue structures of the upper abdomen. RAD/Chest Insp/Exp 2 View IMPRESSION: Status post left thoracentesis. There is no evidence of pneumothorax. Electronically Signed: Fabricio Shah MD at 14:22 EDT ,
[2022-02-06 14:04] LABS: Cytology, Body Fluid / CSF SEE PATHOLOGY REPORT
[2022-02-06 14:25] LABS: Body Fluid Mononuclear WBC # 0.503 10^3/uL; Body Fluid Mononuclear WBC % 98.2 %; Body Fluid Polynuclear WBC # 0.009 10^3/uL; Body Fluid Polynuclear WBC % 1.8 %; White Blood Count/Body Fluid 0.512 10^3/uL
[2022-02-06 14:52] LABS: Glucose, Body Fluid 119 mg/dL (40-70); LDH,Body Fluid 80 Units/l (Not Establ.); Protein, Body Fluid 2.5 g/dL (Not Establ.)
[2022-02-06 15:58] LABS: Appearance/Body Fluid CLEAR; Auto B Fluid Analyzer BKGD Ct COUNTS W/IN LIMITS (W/IN LIMITS); Color/Body Fluid YELLOW; Source- Body Fluid THORACENTESIS
[2022-02-06 16:00] LABS: Body Fluid QC Type(s) BF1Q; Lymphocytes 84 %; Monocytes 4 %; Neutrophil (Segs) 3 %; Other Cell Type/BF 9 %; Red Cell Count/Body Fluid 1422 /mm3
[2022-02-06] MEDS: Nepro with Carbsteady 237 ML Liquid 120 ML PO (18:19)
[2022-02-06] MEDS: Heparin Injection (Vial) 5,000 UNIT/ML VIAL 5000 UNIT SC (21:39)
[2022-02-06] MEDS: Atorvastatin Calcium 80 MG Tablet PO (21:40)
[2022-02-06] MEDS: Senna/Docusate Sodium 1 Tablet 2 TABLET PO (21:40)
--- NOTE | 2022-02-06 23:17 | NURSING ---
pt blood sugar 139 at this time.
[2022-02-07] VITALS (16 sets, daily range): BP systolic 101–117; BP diastolic 39–58; PULSE 58–87; RESP 14–22; TEMP 36.6–37.4; O2SAT 97–100
[2022-02-07] MEDS: HYDROmorphone 1 MG/ML Syringe IV ×2 (01:49→23:43)
[2022-02-07] MEDS: Ipratropium/Albuterol Sulfate 3 ML AMPUL.NEB INHALATION ×6 (03:27→22:52)
[2022-02-07] MEDS: Heparin Injection (Vial) 5,000 UNIT/ML VIAL 5000 UNIT SC ×3 (05:08→21:43)
[2022-02-07 05:44] LABS: Absolute Lymphocyte Count 0.48 X10^3/uL (0.83-4.51); Absolute Neutrophil Count 7.5 X10^3/uL (2.0-7.7); Basophil# 0.04 X10^3/uL; Basophil% 0.4 % (0-1); Eosinophil# 0.08 X10^3/uL; Eosinophils% 0.9 % (0-5); Hematocrit 34.5 % (40-54); Hemoglobin 10.2 g/dL (13.0-16.5); Lymphocyte # 0.48 X10^3/ul (0.83-4.51); Lymphocyte % 5.3 % (19-41); Mean Corp Hgb Conc 29.6 g/dL (32-36); Mean Corpuscular Hgb 27.3 pg (27.0-32.0); Mean Corpuscular Volume 92.5 fL (80-94); Mean Platelet Vol. 11.4 fl (6.2-12.0); Monocyte# 0.95 X10^3/uL; Monocyte% 10.4 % (0-10); NRBC Flagged by Analyzer 0 % (0-5); Neutrophil # 7.52 X10^3/uL (2.7-7.7); Neutrophil % 82.7 % (47-70); POSITIVE DIFFERENTIAL YES; Platelet Count 215 K/mm3 (150-450); RBC Distribution Width CV 17.2 % (11.6-14.6); RBC Distribution Width SD 57.1 fl (35.1-43.9); Red Blood Count 3.73 M/mm3 (4.6-6.2); White Blood Count 9.1 K/mm3 (4.4-11.0)
[2022-02-07 05:56] LABS: Differential Indicated SCAN CRITERIA MET
[2022-02-07 06:05] LABS: Anion Gap 11 (5-15); BUN 27 mg/dL (7-18); Chloride 96 mmol/L (98-107); Creatinine, Serum 3.84 mg/dL (0.70-1.30); EST Glomerular Filtration Rate 16 mL/min (>60); Est Glom Filt Rate - Afr Amer 20 mL/min (>60); Estimated Creatinine Clearance 15.09 ml/min; Glucose 126 mg/dL (74-106); Potassium 4.2 mmol/L (3.5-5.1); Sodium Level 133 mmol/L (136-145)
--- NOTE | 2022-02-07 06:44 | NURSING ---
pt blood glucose 223
[2022-02-07] MEDS: LORazepam 1 MG Tablet PO ×2 (06:48→23:37)
[2022-02-07 07:05] LABS: Differential Comment SCANNED
--- NOTE | 2022-02-07 10:37 | NURSING ---
0830 blood sugar per pt 223, pt took 2 units off his own pump and ate breakfast of cereal, orange juice and coffee.
[2022-02-07] MEDS: BRIMONIDINE 0.2% 5ML BOTTLE 1 DRP LEFT EYE ×2 (10:44→21:43)
[2022-02-07] MEDS: Timolol 0.5% 5ML OPTH.BTL 1 DRP OPHTHALMIC (10:47)
[2022-02-07] MEDS: Isosorbide Mononitrate 30 MG Tablet PO (10:49)
[2022-02-07] MEDS: Metoprolol(XL)Succ 25 MG Tablet 12.5 MG PO (10:50)
[2022-02-07] MEDS: Senna/Docusate Sodium 1 Tablet 2 TABLET PO ×2 (10:51→21:42)
[2022-02-07] MEDS: morphine SR 15 MG Tablet 30 MG PO ×2 (11:01→21:42)
--- NOTE | 2022-02-07 11:18 | PCM.PN.HOSP ---
Documented by User: Torie Hastings CURATOR OF PHOTOGRAPHY AND PRINTS, CURATOR OF PHOTOGRAPHY AND PRINTS-C 02/07/22 11:42 Subjective Subjective Patient seen and examined. Reports improvement in breathing. Foot pain currently controlled on current regimen. Denies new symptoms or complaints. Objective Data Objective Data Vital Signs: Vital Signs Temp Pulse Resp BP Pulse Ox 99.3 F H 74 14 104/39 L 98 02/07/22 08:00 02/07/22 10:50 02/07/22 08:00 02/07/22 10:50 02/07/22 08:00 Oxygen Flow Rate (L/min) [4] 4 Oxygen Flow Rate (L/min) [3] 4 Oxygen Flow Rate (L/min) [2] 4 Oxygen Flow Rate (L/min) 4 Oxygen Delivery Method [3] Nasal Cannula Oxygen Delivery Method [2] Nasal Cannula Oxygen Delivery Method [1 ( Room Air Initial Baseline)] Oxygen Delivery Method Nasal Cannula Weight: 157 lb 3.033 oz Body Mass Index (BMI) 23.1 Intake & Output: Intake and Output for Last 24 Hours 02/05/22 02/06/22 02/07/22 23:59 23:59 23:59 Intake Total 1510 / 1750 840 / 840 120 / 120 Output Total 2275 / 2275 Balance 1500 / 1690 -1435 / -1435 120 / 120 Lab / Micro Data Result Diagrams: 02/07/22 04:13 02/07/22 04:13 Labs: Laboratory Results - last 24 hr 02/05/22 13:45: Fluid Glucose 119 H, Fluid Total Protein 2.5, Fluid LDH 80 02/06/22 13:45: Fluid Source THORACENTESIS, Fluid Color YELLOW, Fluid Appearance CLEAR, Fluid WBC 0.512, Fluid RBC 1422, Fluid Tot Cell Count 0.520, Fld Polynuclear WBCs # 0.009, Fld Polynuclear WBCs % 1.8, Fluid Mononuclear WBCs 0.503, Fld Mononuclear WBCs % 98.2, Fluid Neutrophils 3, Fluid Lymphocytes 84, Fluid Monocytes 4, Fluid Other Cells 9, Fl Pathologist Comment May follow, Fluid Comment 2 SEE COMMENT 02/07/22 04:13: WBC 9.1, RBC 3.73 L, Hgb 10.2 L, Hct 34.5 L, MCV 92.5, MCH 27.3, MCHC 29.6 L D, RDW Std Deviation 57.1 H, RDW Coeff of Janel 17.2 H, Plt Count 215, MPV 11.4, Immature Gran % (Auto) 0.300, Neut % (Auto) 82.7 H, Lymph % (Auto) 5.3 L, Dare % (Auto) 10.4 H, Eos % (Auto) 0.9, Baso % (Auto) 0.4, Absolute Neuts (auto) 7.5, Absolute Lymphs (auto) 0.48 L, Nucleated RBC % 0, Differential Comment SCANNED 02/07/22 04:13: Sodium 133 L, Potassium 4.2, Chloride 96 L, Carbon Dioxide 26.0, Anion Gap 11, BUN 27 H, Creatinine 3.84 H, Estim Creat Clear Calc 15.09, Est GFR (MDRD) Af Amer 20 L, Est GFR (MDRD) Non-Af 16 L, BUN/Creatinine Ratio 7.0 L, Glucose 126 H, Calcium 9.0 Micro: Microbiology 02/06/22 13:45 Fluid - Thoracentesis Fluid Gram Stain - Final 02/06/22 13:45 Fluid - Thoracentesis Fluid Body Fluid Culture - Preliminary No growth-Final to follow Radiography Diagnostic Testing: Radiology Impression Thoracentesis Ultrasound 02/05/22 12:15 IMPRESSION: Ultrasound-guided left thoracentesis. Electronically Signed: Fabricio Shah MD at 14:33 EDT , Chest X-Ray 02/06/22 13:55 IMPRESSION: Status post left thoracentesis. There is no evidence of pneumothorax. Electronically Signed: Fabricio Shah MD at 14:22 EDT , Physical Exam Const alert, oriented x3 and no apparent distress Orientation / Consciousness: awake, oriented to person, oriented to place and oriented to time HEENT normocephalic and moist oral mucous membranes Eyes PERRL, EOMs intact bilaterally and conjunctivae normal Neck no lymphadenopathy Resp clear to auscultation bilaterally Auscultation: diminished lung sounds Cardio regular rate, regular rhythm and no murmurs Peripheral Pulses: pulses 2+ throughout GI normal to inspection, nondistended, normoactive bowel sounds, non-tender and non-distended Extremity normal to inspection Skin no rashes or lesions noted Skin Narrative: Gangrenous toes left foot Lesions: no lesions Rashes: no rashes Trauma: no lacerations or abrasions Neuro CN's II-XII intact bilaterally, no focal motor deficits, no sensory deficits noted and deep tendon reflexes 2+ bilaterally Psych mental status grossly normal and affect normal Assessment & Plan Assessment/Plan (1) Dyspnea: PLAN: 1. 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 On 4 L at baseline. Currently on baseline requirements. 2. End-stage renal disease on hemodialysis-nephrology consulted for dialysis. 3. Acute on chronic combined heart failure with reduced ejection fraction and diastolic dysfunction-echocardiogram August 2021 demonstrated an EF of 40%, stage I diastolic dysfunction, mild to moderate aortic stenosis, pulmonary artery systolic pressure 36 mmHg. BNP greater than 1000. CT of chest with moderate to large left pleural effusion. Continue dialysis as scheduled. 4. Large left transudative pleural effusion-Underwent thoracentesis with 600 cc fluid removal. Fluid studies appear transudative. Culture and cytology pending. 5. Mildly increased troponin, did not trend-likely demand ischemia versus chronically elevated related to end-stage renal disease. 6. Spiculated right upper lobe lung mass-1.6 cm per CTA. Will need further outpatient follow-up. Thoracentesis cytology pending. 7. Left foot gangrenous toes with intractable pain, PVD- scheduled for left below the knee amputation on by Dr. Lacy. Continue aspirin, statin. Plavix on hold due to surgery. Plan for OR on as patient is not able to manage pain at home in the meantime. 8. Chronic hypoxic respiratory failure secondary to advanced COPD with fibrotic lung disease-continue home supplemental oxygen. As needed albuterol aerosol. 9. Type 2 diabetes mellitus-on insulin pump. Follows with endocrinology. Continue Accu-Cheks. Patient using home pump. 10. CAD with history of stent-continue medical management including aspirin, statin, metoprolol, isosorbide. Plavix held. 11. Paroxysmal atrial fibrillation-continue metoprolol. Not on anticoagulation. 12. History of prostate cancer 13. Hyperlipidemia-continue statin. 14. Normocytic anemia/anemia of chronic disease-appears stable. DVT prophylaxis- heparin sc This patient was seen by Torie Hastings NP-C under the supervision of Dr. Moser. Time spent examining patient, reviewing data and subsequent management of care: 14 Minutes Documented by User: Dr. Vero Moser MD 02/07/22 18:08 Objective Data Lab / Micro Data Result Diagrams: 02/07/22 04:13 02/07/22 04:13 Charges/Coding Addendum Addendum: This patient was seen in conjunction with Basilio Darden NP. I have independently interviewed and examined the patient and reviewed pertinent historical, laboratory, and other data. I have reviewed her note and concur with her documentation. Patient was seen and examined. His pain is fairly controlled. Had 600mls of fluid removed with thoracocentesis. Fluid cultures are pending Physical Exam: Gen: Comfortable, not pale, not jaundiced CVS:HS I +II, regular, no murmurs RESP: Diminished at lung bases GI: BS present and normal, soft, nontender, no palpable organs EXT:No edema ASSESSMENT: 1. Acute on chronic combined heart failure, EF 40%, stage I diastolic dysfunction 2. Left large pleural effusion 3. ESRD on hemodialysis 4. Right upper lobe lung mass 5. Left foot gangrene of toes 6. Chronic hypoxic respiratory failure/COPD 7. Type II DM 8. CAD status post stent 9. Paroxysmal atrial fibrillation Plan: Orthopedics consult Follow-up with dialysis Continue aspirin, statin, metoprolol, isosorbide Hold Plavix and Eliquis Time spent coordinating patient's care, discussing with nursing, discussing with subspecialists: 20 minutes Visit Charges Inpatient E&M: 94640 Subs Hosp L2
[2022-02-07 14:18] LABS: Pathologist Comment/Body Fluid Reviewed
--- NOTE | 2022-02-07 14:20 | RAD_ITS ---
STUDY: X-RAY CHEST REASON FOR EXAM: Male, 77 years old. Shortness of breath TECHNIQUE: Single AP portable view of the chest. COMPARISON: Comparison is made with prior examination dated 01/29/2022. FINDINGS: EKG electrodes are seen. Since prior study, there has been a progression of the left pleural-parenchymal changes. The right lung remains unchanged. There is mild cardiac enlargement. Normal mediastinum and jessica. Normal visualized pulmonary arteries. There is atherosclerotic calcification of the aortic arch with tortuosity. There are diffuse degenerative changes of the visualized thoracic spine. Metallic anchor is seen in the right humeral head. There is no demonstrated abnormality of the visualized soft tissue structures of the upper abdomen. RAD/Chest 1 View (Portable) IMPRESSION: Progressive pleural parenchymal changes at the left lung base as compared to prior study. Electronically Signed: Fabricio Shah MD at 14:42 EDT ,
--- NOTE | 2022-02-07 15:12 | PCM.PN.REN ---
Subjective Subjective no new events Objective Data Objective Data Vital Signs: Vital Signs Temp Pulse Resp BP Pulse Ox 97.9 F 58 L 14 101/58 L 99 02/07/22 13:00 02/07/22 13:00 02/07/22 13:00 02/07/22 13:00 02/07/22 10:58 Oxygen Flow Rate (L/min) [4] 4 Oxygen Flow Rate (L/min) [3] 4 Oxygen Flow Rate (L/min) [2] 4 Oxygen Flow Rate (L/min) 4 Oxygen Delivery Method [3] Nasal Cannula Oxygen Delivery Method [2] Nasal Cannula Oxygen Delivery Method [1 ( Room Air Initial Baseline)] Oxygen Delivery Method Nasal Cannula Weight: 71.3 kg Body Mass Index (BMI) 23.1 Intake & Output: Intake and Output for Last 24 Hours 02/05/22 02/06/22 02/07/22 23:59 23:59 23:59 Intake Total 1510 / 1750 840 / 840 360 / 360 Output Total 2275 / 2275 Balance 1500 / 1690 -1435 / -1435 360 / 360 Lab / Micro Data Result Diagrams: 02/07/22 04:13 02/07/22 04:13 Labs: Laboratory Results - last 24 hr 02/06/22 13:45: Fluid Source THORACENTESIS, Fluid Color YELLOW, Fluid Appearance CLEAR, Fluid WBC 0.512, Fluid RBC 1422, Fluid Tot Cell Count 0.520, Fld Polynuclear WBCs # 0.009, Fld Polynuclear WBCs % 1.8, Fluid Mononuclear WBCs 0.503, Fld Mononuclear WBCs % 98.2, Fluid Neutrophils 3, Fluid Lymphocytes 84, Fluid Monocytes 4, Fluid Other Cells 9, Fl Pathologist Comment Reviewed, Fluid Comment 2 SEE COMMENT 02/07/22 04:13: WBC 9.1, RBC 3.73 L, Hgb 10.2 L, Hct 34.5 L, MCV 92.5, MCH 27.3, MCHC 29.6 L D, RDW Std Deviation 57.1 H, RDW Coeff of Janel 17.2 H, Plt Count 215, MPV 11.4, Immature Gran % (Auto) 0.300, Neut % (Auto) 82.7 H, Lymph % (Auto) 5.3 L, [place] % (Auto) 10.4 H, Eos % (Auto) 0.9, Baso % (Auto) 0.4, Absolute Neuts (auto) 7.5, Absolute Lymphs (auto) 0.48 L, Nucleated RBC % 0, Differential Comment SCANNED 02/07/22 04:13: Sodium 133 L, Potassium 4.2, Chloride 96 L, Carbon Dioxide 26.0, Anion Gap 11, BUN 27 H, Creatinine 3.84 H, Estim Creat Clear Calc 15.09, Est GFR (MDRD) Af Amer 20 L, Est GFR (MDRD) Non-Af 16 L, BUN/Creatinine Ratio 7.0 L, Glucose 126 H, Calcium 9.0 Micro: Microbiology 02/06/22 13:45 Fluid - Thoracentesis Fluid Gram Stain - Final 02/06/22 13:45 Fluid - Thoracentesis Fluid Body Fluid Culture - Preliminary No growth-Final to follow Radiography Diagnostic Testing: Radiology Impression Chest X-Ray 02/07/22 14:20 IMPRESSION: Progressive pleural parenchymal changes at the left lung base as compared to prior study. Electronically Signed: Fabricio Shah MD at 14:42 EDT , Physical Exam Narrative General: Alert and oriented x3, NAD HEENT: Normocephalic, atraumatic. Mucous membrane is moist. Neck: Supple, no JVD. Heart: Normal S1, S2. There is a 3/6 systolic murmur. No rubs. Lungs: Decreased breath sound at bases bilaterally. Abdomen: Normal bowel sound, soft, nontender, no guarding or rebound. Extremity: No clubbing or cyanosis. There is 2+ lower extremity edema bilaterally. Assessment & Plan Assessment/Plan (1) ESRD (end stage renal disease) on dialysis: PLAN: -The patient usually dialyzes on MWF schedule at [facility] [place]. (2) Anemia: PLAN: -The patient [facility]. (3) Peripheral vascular occlusive disease: PLAN: -The patient is scheduled for left BKA later this week. (4) Dyspnea: PLAN: -Likely multifactorial. The patient has COPD and recent Covid 19 infection. The patient also has known chronic left pleural effusion. -There is likely some component of volume overload with his left pleural effusion.
--- NOTE | 2022-02-07 17:40 | NURSING ---
pt checking own blood sugar, at 0830 BS 223, pt took 2 units humalog on insulin pump, at 1200 BS 220 , pt took 1 unit humalog of insulin pump, at 1740 BS 155, no insulin yet, agrees to try some cereal and fruit cup.
[2022-02-07] MEDS: Nepro with Carbsteady 237 ML Liquid 120 ML PO (17:50)
[2022-02-07] MEDS: Furosemide 40 MG/4 ML Vial 20 MG IV (18:42)
[2022-02-07] MEDS: Atorvastatin Calcium 80 MG Tablet PO (21:42)
[2022-02-07] MEDS: Latanoprost 0.005% 1 Bottle 1 DRP OPHTHALMIC (21:43)
--- NOTE | 2022-02-07 22:00 | NURSING ---
pt blood sugar per insulin pump is 144, pt states he did not give himself any insulin, will monitor
[2022-02-07] MEDS: 0.9% Saline Lock 10 ML Syringe IV (23:43)
[2022-02-08] VITALS (17 sets, daily range): BP systolic 94–125; BP diastolic 48–61; PULSE 67–85; RESP 18–20; TEMP 36.3–37.2; O2SAT 94–100
[2022-02-08] MEDS: Ipratropium/Albuterol Sulfate 3 ML AMPUL.NEB INHALATION ×6 (04:05→23:32)
[2022-02-08] MEDS: Heparin Injection (Vial) 5,000 UNIT/ML VIAL 5000 UNIT SC (05:25)
[2022-02-08 06:26] LABS: Absolute Lymphocyte Count 0.35 X10^3/uL (0.83-4.51); Absolute Neutrophil Count 7.7 X10^3/uL (2.0-7.7); Basophil# 0.04 X10^3/uL; Basophil% 0.4 % (0-1); Eosinophil# 0.08 X10^3/uL; Eosinophils% 0.9 % (0-5); Hematocrit 30.1 % (40-54); Hemoglobin 9.2 g/dL (13.0-16.5); Lymphocyte # 0.35 X10^3/ul (0.83-4.51); Lymphocyte % 3.8 % (19-41); Mean Corp Hgb Conc 30.6 g/dL (32-36); Mean Corpuscular Hgb 27.5 pg (27.0-32.0); Mean Corpuscular Volume 90.1 fL (80-94); Mean Platelet Vol. 11.7 fl (6.2-12.0); Monocyte# 0.92 X10^3/uL; Monocyte% 10.1 % (0-10); NRBC Flagged by Analyzer 0 % (0-5); Neutrophil # 7.72 X10^3/uL (2.7-7.7); Neutrophil % 84.5 % (47-70); POSITIVE COUNT YES; POSITIVE DIFFERENTIAL YES; Platelet Count 171 K/mm3 (150-450); RBC Distribution Width CV 17.4 % (11.6-14.6); RBC Distribution Width SD 56.7 fl (35.1-43.9); Red Blood Count 3.34 M/mm3 (4.6-6.2); White Blood Count 9.1 K/mm3 (4.4-11.0)
[2022-02-08 06:27] LABS: Differential Indicated SCAN CRITERIA MET
[2022-02-08 06:45] LABS: Differential Comment SCANNED; Platelet Estimate ADEQUATE (ADEQ)
[2022-02-08 06:49] LABS: Anion Gap 11 (5-15); BUN 48 mg/dL (7-18); BUN/Creat Ratio 8.8 RATIO (10-20); Calcium,Total 8.9 mg/dL (8.5-10.1); Chloride 92 mmol/L (98-107); Creatinine, Serum 5.47 mg/dL (0.70-1.30); EST Glomerular Filtration Rate 11 mL/min (>60); Est Glom Filt Rate - Afr Amer 13 mL/min (>60); Estimated Creatinine Clearance 10.59 ml/min; Glucose 207 mg/dL (74-106); Potassium 4.9 mmol/L (3.5-5.1); Sodium Level 129 mmol/L (136-145)
--- NOTE | 2022-02-08 07:35 | CON.PCM.OR_ITS ---
HPI Consult Data Date of Consult: 02/08/22 HPI Narrative HPI Narrative: DIVYA HUSAIN, is a 77 M who presented to [facility] on 02/03/2022 with shortness of breath. Patient was admitted under the service of the hospitalist. Patient had dialysis with some improvement of his shortness of breath. Patient underwent thoracentesis for pleural effusion yesterday with also improved shortness of breath. Patient was seen during his most recent hospital stay by myself for possible left below-knee amputation. He followed up in the outpatient setting. We planned a an elective left below-knee amputation for tomorrow February 09, 2022. I was asked see the patient as he was unable be discharged home on oral pain medication due to his left lower extrem ity claudication pain. At this time he denies any shortness of breath, chest pain, fevers, chills, nausea or vomiting. He states he feels well other than feels like he has some phlegm in his chest that he is unable to clear. [facility] Medical History (HFpEF) heart failure with preserved ejection fraction Acute blood loss anemia Acute on chronic respiratory failure with hypoxemia Acute respiratory failure Allergic rhinitis Anemia Anemia Atherosclerosis of coronary artery of [place] heart without angina pectoris Benign localized hyperplasia of prostate Cancer Cardiology follow-up encounter Carpal tunnel syndrome Chronic allergic rhinitis Chronic hypoxemic respiratory failure Chronic kidney disease, stage V requiring chronic dialysis Chronic otitis media Chronic steroid use CKD (chronic kidney disease) stage 4, GFR 15-29 ml/min Constipation COPD (chronic obstructive pulmonary disease) COPD (chronic obstructive pulmonary disease) Depression Diabetes mellitus Dialysis patient Dietary restriction Dry gangrene Elevated troponin Epistaxis ESRD (end stage renal disease) Essential (primary) hypertension Former smoker GI bleed (06/28/19) HFrEF (heart failure with reduced ejection fraction) History of non-ST elevation myocardial infarction (NSTEMI) (02/03/20) History of prostate cancer Hx of cardiovascular stress test Hx of echocardiogram Hyperlipidemia 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 Hyponatremia Incomplete right bundle branch block Insulin pump titration Insulin pump titration Ischemic cardiomyopathy skilled nursing (current) use of insulin Low back pain Mobitz type I Wenckebach atrioventricular block Neuralgia Non-STEMI (non-ST elevated myocardial infarction) Nonallopathic lesion of lumbar region Nonallopathic lesion of rib cage Nonallopathic lesion of sacral region Nonallopathic lesion of thoracic region, not elsewhere classified NSVT (nonsustained ventricular tachycardia) On home oxygen therapy Otalgia Otitis externa Overweight Pain in lower limb Paroxysmal atrial fibrillation (06/2019) Pedal edema Peripheral arterial disease Peripheral vascular insufficiency 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 Preoperative clearance Pulmonary nodule PVD (peripheral vascular disease) Reactive airway disease Serous otitis media Thoracic back pain Thoracic outlet syndrome Type I diabetes mellitus Urethral stricture Vitamin D deficiency Wax in ear Wears dentures Wears glasses Wears hearing aid in both ears Home Medications latanoprost 0.005 % eye drops 1 drp EACH EYE DAILY ml 11/15/17 [History Last Taken 03/25/20 06:00 1 DRP] brimonidine 0.2 % eye drops 1 drp LEFT EYE BID ml 10/01/19 [History Last Taken 05/05/21] timolol 0.5 % eye drops 1 drp EACH EYE DAILY ml 10/01/19 [History Last Taken 03/25/20 06:00 1 DRP] metoprolol succinate 25 mg tablet,extended release 24 hr 12.5 mg PO DAILY #45 tab 08/10/21 [Rx Last Taken Unknown] aspirin 81 mg PO DAILY 08/15/21 [History Last Taken Unknown] isosorbide mononitrate 30 mg tablet,extended release 24 hr 30 mg PO DAILY #90 tab 08/22/21 [Rx Last Taken Unknown] atorvastatin 80 mg tablet 80 mg PO QHS #90 tab 11/08/21 [Rx Last Taken Unknown] clopidogrel 75 mg tablet 75 mg PO DAILY #90 tab 11/08/21 [Rx Last Taken Unknown] albuterol sulfate 90 mcg/actuation aerosol inhaler 2 puff INHALATION Q4H PRN #8.5 g 11/15/21 [Rx Last Taken Unknown] Trelegy Ellipta 1 inh INHALATION DAILY 02/02/22 [History Last Taken Unknown] docusate calcium 240 mg PO BID 02/02/22 [History Last Taken Unknown] insulin lispro [Humalog U-100 Insulin] 150 unit SUBCUT .Q3DAY 02/02/22 [History Last Taken Unknown] lorazepam [Ativan] 0.5 mg PO TID PRN 02/03/22 [History Last Taken Unknown] Allergy/AdvReac Type Severity Reaction Status Date / Time amoxicillin [From Augmentin] Allergy Unknown Unknown Verified 02/02/22 14:03 clavulanic acid Allergy Unknown Unknown Verified 02/02/22 14:03 [From Augmentin] Sulfa (Sulfonamide Allergy Unknown Unknown Verified 02/02/22 14:03 Antibiotics) Family History Sister Diabetes Father Heart disease Surgical History H/O inguinal hernia repair H/O prostate biopsy History of appendectomy History of carpal tunnel surgery of left wrist History of coronary artery stent placement (06/29/19) History of femoropopliteal bypass (01/2021) History of left cataract extraction History of left heart catheterization (02/09/20) Hx of cardiac catheterization Hx of colonoscopy Problem with dialysis access (05/05/21) S/P bilateral foot surgery S/P rotator cuff repair Social History household members: spouse housing: house Smoking Status: Former smoker quit date: 11/12/13 pack-years: 53 how long ago did patient quit smokin years ago second hand exposure: No alcohol intake: never substance use type: does not use caffeine: Yes Type: coffee Number of servings: 1 ROS ROS Narrative 12 point review systems obtained, negative unless otherwise noted in HPI. Vital Signs Vital Signs Vital Signs: 02/07/22 08:00 02/07/22 08:35 02/07/22 09:00 Temperature 99.3 F H Temperature Source Oral Pulse Rate 86 86 87 Pulse Strength Respiratory Rate 14 Respiratory Effort Normal Respiratory Depth Normal Respiratory Pattern Normal Blood Pressure 106/43 L Blood Pressure Mean 64 Blood Pressure Source Monitor Blood Pressure Position Supine Blood Pressure Location Right Arm Pulse Ox 98 Oxygen Delivery Method Nasal Cannula Nasal Cannula Oxygen Flow Rate (L/min) 4 4 02/07/22 10:00 02/07/22 10:50 02/07/22 10:58 Temperature Temperature Source Pulse Rate 74 82 Pulse Strength Weak (1+) Respiratory Rate 18 Respiratory Effort Respiratory Depth Respiratory Pattern Normal Blood Pressure 104/39 L Blood Pressure Mean Blood Pressure Source Blood Pressure Position Blood Pressure Location Pulse Ox 99 Oxygen Delivery Method Nasal Cannula Oxygen Flow Rate (L/min) 4 02/07/22 13:00 02/07/22 14:00 02/07/22 15:00 Temperature 97.9 F Temperature Source Temporal Pulse Rate 58 L 73 Pulse Strength Respiratory Rate 14 Respiratory Effort Short of Breath Respiratory Depth Normal Respiratory Pattern Normal Blood Pressure 101/58 L Blood Pressure Mean 72 Blood Pressure Source Monitor Blood Pressure Position Semi-Fowlers Blood Pressure Location Right Arm Pulse Ox Oxygen Delivery Method Nasal Cannula Nasal Cannula Oxygen Flow Rate (L/min) 02/07/22 15:30 02/07/22 17:43 02/07/22 19:05 Temperature Temperature Source Pulse Rate 81 76 Pulse Strength Respiratory Rate 20 H 16 Respiratory Effort Normal Short of Breath Respiratory Depth Normal Respiratory Pattern Normal Normal Blood Pressure Blood Pressure Mean Blood Pressure Source Blood Pressure Position Blood Pressure Location Pulse Ox Oxygen Delivery Method Nasal Cannula Oxygen Flow Rate (L/min) 3 02/07/22 19:33 02/07/22 21:37 02/07/22 22:00 Temperature 97.9 F Temperature Source Temporal Pulse Rate 81 84 Pulse Strength Weak (1+) Respiratory Rate 18 Respiratory Effort Normal Short of Breath Respiratory Depth Normal Respiratory Pattern Normal Blood Pressure 117/47 L Blood Pressure Mean 70 Blood Pressure Source Monitor Blood Pressure Position Semi-Fowlers Blood Pressure Location Right Arm Pulse Ox 100 Oxygen Delivery Method Nasal Cannula Nasal Cannula Oxygen Flow Rate (L/min) 3 3 02/07/22 22:52 02/08/22 03:00 02/08/22 04:05 Temperature 97.9 F Temperature Source Temporal Pulse Rate 79 71 78 Pulse Strength Respiratory Rate 18 20 H 18 Respiratory Effort Respiratory Depth Respiratory Pattern Normal Normal Blood Pressure 108/52 L Blood Pressure Mean 70 Blood Pressure Source Monitor Blood Pressure Position Semi-Fowlers Blood Pressure Location Right Arm Pulse Ox 100 Oxygen Delivery Method Nasal Cannula Oxygen Flow Rate (L/min) 3 02/08/22 04:24 Temperature Temperature Source Pulse Rate Pulse Strength Respiratory Rate Respiratory Effort Normal Short of Breath Respiratory Depth Normal Respiratory Pattern Normal Blood Pressure Blood Pressure Mean Blood Pressure Source Blood Pressure Position Blood Pressure Location Pulse Ox Oxygen Delivery Method Nasal Cannula Oxygen Flow Rate (L/min) 3 Weight Weight: 154 lb 1.65 oz Body Mass Index (BMI) 23.1 Physical Exam Narrative General -A&Ox3, NAD, appears stated age. Vital signs stable, afebrile. Respiratory -normal work of breathing, no intercostal retractions. CV -pulses regular, brisk capillary refill ?4 limbs. Abdomen-soft, nontender, nondistended. No guarding, rigidity, rebound tenderness. Musculoskeletal/neurologic -full range of motion nontender throughout bilateral upper extremities, right lower extremity with full sensation and strength in all dermatomes and myotomes. No midline cervical tenderness. Left lower extremity: Diminished sensation along the medial aspect of the lower leg. Surgical scars well-healed along the medial proximal tibia. DP and PT pulses are not palpable. Foot is cool to touch extending to the ankle. Pretibial lower leg is slightly warmer, still slightly cool compared to the proximal thigh. Dry gangrene digital necrosis is noted at the toes. The heel is unremarkable. No significant drainage, induration or fluctuance is noted. Lab / Micro Data Result Diagrams: 02/08/22 05:53 02/08/22 05:53 Labs: Laboratory Results - last 24 hr 02/06/22 13:45: Fl Pathologist Comment Reviewed 02/07/22 04:13: Lactate Dehydrogenase Cancelled 02/08/22 05:53: WBC 9.1, RBC 3.34 L, Hgb 9.2 L, Hct 30.1 L, MCV 90.1, MCH 27.5, MCHC 30.6 L, RDW Std Deviation 56.7 H, RDW Coeff of Janel 17.4 H, Plt Count 171, MPV 11.7, Immature Gran % (Auto) 0.300, Neut % (Auto) 84.5 H, Lymph % (Auto) 3.8 L, Story % (Auto) 10.1 H, Eos % (Auto) 0.9, Baso % (Auto) 0.4, Absolute Neuts (auto) 7.7, Absolute Lymphs (auto) 0.35 L, Nucleated RBC % 0, Differential Comment SCANNED, Platelet Estimate ADEQUATE 02/08/22 05:53: Sodium 129 L, Potassium 4.9, Chloride 92 L, Carbon Dioxide 26.0, Anion Gap 11, BUN 48 H, Creatinine 5.47 H, Estim Creat Clear Calc 10.59, Est GFR (MDRD) Af Amer 13 L, Est GFR (MDRD) Non-Af 11 L, BUN/Creatinine Ratio 8.8 L, Glucose 207 H, Calcium 8.9 Micro: Microbiology 02/06/22 13:45 Fluid - Thoracentesis Fluid Gram Stain - Final 02/06/22 13:45 Fluid - Thoracentesis Fluid Body Fluid Culture - Preliminary No growth-Final to follow Radiology Impression Chest X-Ray 02/07/22 14:20 IMPRESSION: Progressive pleural parenchymal changes at the left lung base as compared to prior study. Electronically Signed: Fabricio Shah MD at 14:42 EDT , Assessment & Plan Assessment/Plan (1) Peripheral vascular occlusive disease: PLAN: Patient scheduled for left below-knee amputation tomorrow. Patient oxygen requirements back to baseline. Plan to proceed with surgery tomorrow if patient continues to be medically optimized. Certainly, surgery is elective to some degree and medical optimization is paramount. Clear liquids after midnight tonight, n.p.o. 4 hours prior to surgery. Informed thank you for with the patient. Fluid management per primary.
--- NOTE | 2022-02-08 08:38 | CON.PCM.CC_ITS ---
Assessment & Plan Assessment/Plan (1) Chronic hypoxemic respiratory failure: (2) Pulmonary nodule: (3) Pleural effusion, transudate: (4) ESRD (end stage renal disease) on dialysis: (5) Dry gangrene: PLAN: RECOMMENDATIONS: 1. Add mucolytic and Acapella for pulmonary toileting 2. Add Pulmicort as therapeutic substitution for outpatient triple therapy 3. Increase activity as tolerated 4. Monitor oxygenation in the perioperative period. 5. Okay to proceed with surgical intervention from my perspective IMPRESSIONS: 1. Chronic hypoxic respiratory failure secondary to COPD with new transudate effusion/pulmonary nodule Clinical suspicion for shortness of breath secondary to pleural effusion in the setting of relatively advanced COPD. Patient is back to his baseline supplemental oxygen. High clinical suspicion for renal or cardiac etiology for pleural effusion. Patient is receiving hemodialysis per routine. Patient likely has an element of retained secretions secondary to compression. Will add Acapella and mucolytic to help with pulmonary toileting. Patient will also be placed on Pulmicort to complete therapeutic substitution for triple therapy as an outpatient. Will need to watch oxygen closely, but patient does not appear to be in exacerbation of COPD from my perspective. Patient's pulmonary nodules have been present since 2017. This makes it very unlikely that these are malignant in nature. Clinical suspicion for scarring given patient's past. This can be followed as an outpatient. 2. End-stage renal disease/peripheral vascular disease/dry gangrene of left toes Nephrology is following. Patient is receiving dialysis and tolerating this well. Okay to proceed with surgery from my perspective. Will attempt to avoid systemic steroids as this can delay wound healing. We will continue to follow the patient in the perioperative period. 3. Diabetes mellitus type 2/CAD/glaucoma/advanced age/anemia of chronic disease Complicates care, management, recovery and prognosis. Okay to continue with baseline medications. Patient was a confirmed to DNR comfort care arrest with intubation HPI Consult Data Date of Consult: 02/08/22 HPI Narrative HPI Narrative: DIVYA HUSAIN is a 77 M, with past medical history listed below, who presented to [facility] on 02/03/2022 secondary to progressive shortness of breath over the course of 1 week. Patient reportedly had gone to dialysis thinking that he was fluid overloaded and that this would help his breathing. However, after dialysis patient persisted in shortness of breath. Patient had thought he may have had some chills, but denied any fevers, cough or chest pain. Patient had reported dyspnea was worse with exertion and improved while resting. No nausea or vomiting of been reported. Patient does follow-up with Dr. Bolanos in our office at baseline and is treated for relatively advanced COPD on triple therapy. In the ER, patient was afebrile, but tachypneic at 22 breaths/min. Patient did have marginal blood pressures initially at 93/49 and was saturating well on his baseline 4 L nasal cannula. Laboratory work-up at that time showed a white blood cell count of 9.5, hemoglobin 10.2, creatinine of 3.61, troponin of 120. Other labs were relatively unremarkable. Chest x-ray showed a moderate left pl eural effusion and an EKG was consistent with A. fib. Patient was subsequently admitted to the hospital for a work-up with a diagnosis of acute on chronic diastolic CHF and concern for advanced dry gangrene of the left toes. Patient has done well during hospitalization. Patient had a thoracentesis with 600 cc removed showing a transudate pattern. However, patient continues to have some shortness of breath and there is some discussion about patient getting a BKA tomorrow, so pulmonary consult was obtained for optimization. Patient states that his shortness of breath was significantly improved after the thoracentesis. Patient feels that he is almost back to his baseline if I could just get up this mucus. Patient denies any hemoptysis or epistaxis. Patient does report some slight rib pain that he associates with attempting to cough up mucus. Patient states he has been compliant with his baseline medications and is on his baseline supplemental oxygen. Review of systems otherwise negative from a constitutional, HEENT, respiratory, cardiovascular, GI, genitourinary, musculoskeletal, skin, neurologic, psychiatric and hematologic system unless stated above. [facility] Medical History (Updated 02/08/22 @ 08:[address] Justin Martins MD) (HFpEF) heart failure with preserved ejection fraction Acute blood loss anemia Acute on chronic respiratory failure with hypoxemia Acute respiratory failure Allergic rhinitis Anemia Anemia Atherosclerosis of coronary artery of [place] heart without angina pectoris Benign localized hyperplasia of prostate Cancer Cardiology follow-up encounter Carpal tunnel syndrome Chronic allergic rhinitis Chronic hypoxemic respiratory failure Chronic kidney disease, stage V requiring chronic dialysis Chronic otitis media Chronic steroid use CKD (chronic kidney disease) stage 4, GFR 15-29 ml/min Constipation COPD (chronic obstructive pulmonary disease) COPD (chronic obstructive pulmonary disease) Depression Diabetes mellitus Dialysis patient Dietary restriction Dry gangrene Elevated troponin Epistaxis ESRD (end stage renal disease) Essential (primary) hypertension Former smoker GI bleed (06/28/19) HFrEF (heart failure with reduced ejection fraction) History of non-ST elevation myocardial infarction (NSTEMI) (02/03/20) History of prostate cancer Hx of cardiovascular stress test Hx of echocardiogram Hyperlipidemia 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 Hyponatremia Incomplete right bundle branch block Insulin pump titration Insulin pump titration Ischemic cardiomyopathy longterm (current) use of insulin Low back pain Mobitz type I Wenckebach atrioventricular block Neuralgia Non-STEMI (non-ST elevated myocardial infarction) Nonallopathic lesion of lumbar region Nonallopathic lesion of rib cage Nonallopathic lesion of sacral region Nonallopathic lesion of thoracic region, not elsewhere classified NSVT (nonsustained ventricular tachycardia) On home oxygen therapy Otalgia Otitis externa Overweight Pain in lower limb Paroxysmal atrial fibrillation (06/2019) Pedal edema Peripheral arterial disease Peripheral vascular insufficiency 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 Preoperative clearance Pulmonary nodule PVD (peripheral vascular disease) Reactive airway disease Serous otitis media Thoracic back pain Thoracic outlet syndrome Type I diabetes mellitus Urethral stricture Vitamin D deficiency Wax in ear Wears dentures Wears glasses Wears hearing aid in both ears Home Medications latanoprost 0.005 % eye drops 1 drp EACH EYE DAILY ml 11/15/17 [History Last Taken 03/25/20 06:00 1 DRP] brimonidine 0.2 % eye drops 1 drp LEFT EYE BID ml 10/01/19 [History Last Taken 05/05/21] timolol 0.5 % eye drops 1 drp EACH EYE DAILY ml 10/01/19 [History Last Taken 03/25/20 06:00 1 DRP] metoprolol succinate 25 mg tablet,extended release 24 hr 12.5 mg PO DAILY #45 tab 08/10/21 [Rx Last Taken Unknown] aspirin 81 mg PO DAILY 08/15/21 [History Last Taken Unknown] isosorbide mononitrate 30 mg tablet,extended release 24 hr 30 mg PO DAILY #90 tab 08/22/21 [Rx Last Taken Unknown] atorvastatin 80 mg tablet 80 mg PO QHS #90 tab 12/28/21 [Rx Last Taken Unknown] clopidogrel 75 mg tablet 75 mg PO DAILY #90 tab 11/08/21 [Rx Last Taken Unknown] albuterol sulfate 90 mcg/actuation aerosol inhaler 2 puff INHALATION Q4H PRN #8.5 g 11/15/21 [Rx Last Taken Unknown] Radha Brown 1 inh INHALATION DAILY 02/02/22 [History Last Taken Unknown] docusate calcium 240 mg PO BID 02/02/22 [History Last Taken Unknown] insulin lispro [Humalog U-100 Insulin] 150 unit SUBCUT .Q3DAY 02/02/22 [History Last Taken Unknown] lorazepam [Ativan] 0.5 mg PO TID PRN 02/03/22 [History Last Taken Unknown] Allergy/AdvReac Type Severity Reaction Status Date / Time amoxicillin [From Augmentin] Allergy Unknown Unknown Verified 02/02/22 14:03 clavulanic acid Allergy Unknown Unknown Verified 02/02/22 14:03 [From Augmentin] Sulfa (Sulfonamide Allergy Unknown Unknown Verified 02/02/22 14:03 Antibiotics) Family History Sister Diabetes Father Heart disease Surgical History H/O inguinal hernia repair H/O prostate biopsy History of appendectomy History of carpal tunnel surgery of left wrist History of coronary artery stent placement (06/29/19) History of femoropopliteal bypass (01/2021) History of left cataract extraction History of left heart catheterization (02/09/20) Hx of cardiac catheterization Hx of colonoscopy Problem with dialysis access (05/05/21) S/P bilateral foot surgery S/P rotator cuff repair Social History household members: spouse housing: house Smoking Status: Former smoker quit date: 11/12/13 pack-years: 53 how long ago did patient quit smokin years ago second hand exposure: No alcohol intake: never substance use type: does not use caffeine: Yes Type: coffee Number of servings: 1 ROS ROS Narrative See HPI Physical Exam Const alert, oriented x3 and no apparent distress Orientation / Consciousness: awake, oriented to person, oriented to place and oriented to time HEENT normocephalic and moist oral mucous membranes Eyes PERRL, EOMs intact bilaterally and conjunctivae normal Neck no lymphadenopathy Chest Chest: abnormal inspection of the chest increased A-P diameter and symmetrical chest wall rise; Negative for crepitus Resp clear to auscultation bilaterally Auscultation: wheezes throughout (And exhalation) and diminished lung sounds; Negative for rales or rhonchi Cardio regular rate, regular rhythm and no murmurs Peripheral Pulses: pulses 2+ throughout GI normal to inspection, nondistended, normoactive bowel sounds, non-tender and non-distended Extremity Extremity Narrative: Diminished peripheral pulses. General Extremity: clubbing; Negative for cyanosis or edema Skin no rashes or lesions noted Skin Narrative: Gangrenous toes left foot Neuro CN's II-XII intact bilaterally, no focal motor deficits, no sensory deficits noted and deep tendon reflexes 2+ bilaterally Psych mental status grossly normal and affect normal Lab / Micro Data Result Diagrams: 02/08/22 05:53 02/08/22 05:53 Labs: Laboratory Results - last 24 hr 02/06/22 13:45: Fl Pathologist Comment Reviewed 02/07/22 04:13: Lactate Dehydrogenase Cancelled 02/08/22 05:53: WBC 9.1, RBC 3.34 L, Hgb 9.2 L, Hct 30.1 L, MCV 90.1, MCH 27.5, MCHC 30.6 L, RDW Std Deviation 56.7 H, RDW Coeff of Janel 17.4 H, Plt Count 171, MPV 11.7, Immature Gran % (Auto) 0.300, Neut % (Auto) 84.5 H, Lymph % (Auto) 3.8 L, [place] % (Auto) 10.1 H, Eos % (Auto) 0.9, Baso % (Auto) 0.4, Absolute Neuts (auto) 7.7, Absolute Lymphs (auto) 0.35 L, Nucleated RBC % 0, Differential Comment SCANNED, Platelet Estimate ADEQUATE 02/08/22 05:53: Sodium 129 L, Potassium 4.9, Chloride 92 L, Carbon Dioxide 26.0, Anion Gap 11, BUN 48 H, Creatinine 5.47 H, Estim Creat Clear Calc 10.59, Est GFR (MDRD) Af Amer 13 L, Est GFR (MDRD) Non-Af 11 L, BUN/Creatinine Ratio 8.8 L, Glucose 207 H, Calcium 8.9 Micro: Microbiology 02/06/22 13:45 Fluid - Thoracentesis Fluid Gram Stain - Final 02/06/22 13:45 Fluid - Thoracentesis Fluid Body Fluid Culture - Preliminary No growth-Final to follow 02/06/22 13:45 Fluid - Thoracentesis Fluid Anaerobic Culture - Preliminary No growth in 48 hours. Radiology Impression Chest X-Ray 02/07/22 14:20 IMPRESSION: Progressive pleural parenchymal changes at the left lung base as compared to prior study. Electronically Signed: Fabricio Shah MD at 14:42 EDT , Charges/Coding Visit Charges Inpatient E&M: 13145 Init Hosp L2
[2022-02-08] MEDS: LORazepam 1 MG Tablet PO (09:17)
[2022-02-08] MEDS: Nepro with Carbsteady 237 ML Liquid 120 ML PO ×3 (09:18→17:11)
[2022-02-08] MEDS: Isosorbide Mononitrate 30 MG Tablet PO (09:18)
[2022-02-08] MEDS: Timolol 0.5% 5ML OPTH.BTL 1 DRP OPHTHALMIC (09:19)
[2022-02-08] MEDS: Metoprolol(XL)Succ 25 MG Tablet 12.5 MG PO (09:19)
[2022-02-08] MEDS: Senna/Docusate Sodium 1 Tablet 2 TABLET PO ×2 (09:19→21:10)
[2022-02-08] MEDS: BRIMONIDINE 0.2% 5ML BOTTLE 1 DRP LEFT EYE ×2 (09:20→21:09)
[2022-02-08] MEDS: morphine SR 15 MG Tablet 30 MG PO ×2 (09:22→22:41)
[2022-02-08] MEDS: guaiFENesin 1,200 MG Tablet 1200 MG PO ×2 (09:24→21:12)
--- NOTE | 2022-02-08 09:42 | CASEMGMT ---
SW was informed patient would like to go to [facility] at d/c. KETAN met with patient and confirmed this is his plan. KETAN faxed referral to [facility]. KETAN also called regarding referral. Arianna ARAMBULA
[2022-02-08 09:45] LABS: Bedside Glucose 192 mg/dL (74-106)
[2022-02-08] MEDS: Budesonide Respules 0.5 MG/2 ML AMPUL.NEB. INHALATION ×2 (11:15→19:23)
--- NOTE | 2022-02-08 11:56 | CASEMGMT ---
SW received a call from [facility] and they can accept patient when he is ready. Plan: [facility] when medically ready. Arianna ARAMBULA
--- NOTE | 2022-02-08 12:04 | PN.HOSP_ITS ---
Documented by User: Torie Hastings NP, AUTOMATION ENGINEERING MANAGER-C 02/08/22 12:12 Subjective Subjective Patient seen and examined. Reports pain controlled overnight. States he became more short of breath overnight. Currently feels improved however states he feels like he has stuff to cough up. Denies fever, chills. Objective Data Objective Data Vital Signs: Vital Signs Temp Pulse Resp BP Pulse Ox 97.8 F 75 18 125/57 H 98 02/08/22 09:25 02/08/22 11:30 02/08/22 09:25 02/08/22 09:25 02/08/22 09:25 Oxygen Flow Rate (L/min) [4] 4 Oxygen Flow Rate (L/min) [3] 4 Oxygen Flow Rate (L/min) [2] 4 Oxygen Flow Rate (L/min) 4 Oxygen Delivery Method [3] Nasal Cannula Oxygen Delivery Method [2] Nasal Cannula Oxygen Delivery Method [1 ( Room Air Initial Baseline)] Oxygen Delivery Method Nasal Cannula Weight: 154 lb 1.65 oz Body Mass Index (BMI) 23.1 Intake & Output: Intake and Output for Last 24 Hours 02/06/22 02/07/22 02/08/22 23:59 23:59 23:59 Intake Total 840 / 840 720 / 720 460 / 460 Output Total 2275 / 2275 0 / 0 Balance -1435 / -1435 720 / 720 460 / 460 Lab / Micro Data Result Diagrams: 02/08/22 05:53 02/08/22 05:53 Labs: Laboratory Results - last 24 hr 02/06/22 13:45: Fl Pathologist Comment Reviewed 02/07/22 04:13: Lactate Dehydrogenase Cancelled 02/08/22 05:53: WBC 9.1, RBC 3.34 L, Hgb 9.2 L, Hct 30.1 L, MCV 90.1, MCH 27.5, MCHC 30.6 L, RDW Std Deviation 56.7 H, RDW Coeff of Janel 17.4 H, Plt Count 171, MPV 11.7, Immature Gran % (Auto) 0.300, Neut % (Auto) 84.5 H, Lymph % (Auto) 3.8 L, [place] % (Auto) 10.1 H, Eos % (Auto) 0.9, Baso % (Auto) 0.4, Absolute Neuts (auto) 7.7, Absolute Lymphs (auto) 0.35 L, Nucleated RBC % 0, Differential Comment SCANNED, Platelet Estimate ADEQUATE 02/08/22 05:53: Sodium 129 L, Potassium 4.9, Chloride 92 L, Carbon Dioxide 26.0, Anion Gap 11, BUN 48 H, Creatinine 5.47 H, Estim Creat Clear Calc 10.59, Est GFR (MDRD) Af Amer 13 L, Est GFR (MDRD) Non-Af 11 L, BUN/Creatinine Ratio 8.8 L, Glucose 207 H, Calcium 8.9 02/08/22 09:42: POC Glucose 192 H Micro: Microbiology 02/06/22 13:45 Fluid - Thoracentesis Fluid Gram Stain - Final 02/06/22 13:45 Fluid - Thoracentesis Fluid Body Fluid Culture - Preliminary No growth-Final to follow 02/06/22 13:45 Fluid - Thoracentesis Fluid Anaerobic Culture - Preliminary No growth in 48 hours. Radiography Diagnostic Testing: Radiology Impression Chest X-Ray 02/07/22 14:20 IMPRESSION: Progressive pleural parenchymal changes at the left lung base as compared to prior study. Electronically Signed: Fabricio Shah MD at 14:42 EDT , Physical Exam Const alert, oriented x3 and no apparent distress Orientation / Consciousness: awake, oriented to person, oriented to place and oriented to time HEENT normocephalic and moist oral mucous membranes Eyes PERRL, EOMs intact bilaterally and conjunctivae normal Neck no lymphadenopathy Resp clear to auscultation bilaterally Auscultation: diminished lung sounds Cardio regular rate, regular rhythm and no murmurs Peripheral Pulses: pulses 2+ throughout GI normal to inspection, nondistended, normoactive bowel sounds, non-tender and non-distended Extremity normal to inspection Skin no rashes or lesions noted Skin Narrative: Gangrenous left foot toes Lesions: no lesions Rashes: no rashes Trauma: no lacerations or abrasions Neuro CN's II-XII intact bilaterally, no focal motor deficits, no sensory deficits noted and deep tendon reflexes 2+ bilaterally Psych mental status grossly normal and affect normal Assessment & Plan Assessment/Plan (1) Dry gangrene: (2) Dyspnea: PLAN: 1. 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 On 4 L at baseline. Currently on baseline requirements. 2. End-stage renal disease on hemodialysis-nephrology consulted for dialysis. 3. Acute on chronic combined heart failure with reduced ejection fraction and diastolic dysfunction-echocardiogram August 2021 demonstrated an EF of 40%, stage I diastolic dysfunction, mild to moderate aortic stenosis, pulmonary artery systolic pressure 36 mmHg. BNP greater than 1000. CT of chest with moderate to large left pleural effusion. Continue dialysis as scheduled. 4. Large left transudative pleural effusion-Underwent thoracentesis with 600 cc fluid removal. Fluid studies appear transudative. Culture and cytology pending. 5. Mildly increased troponin, did not trend-likely demand ischemia versus chronically elevated related to end-stage renal disease. 6. Spiculated right upper lobe lung mass-1.6 cm per CTA. Will need further outpatient follow-up. Thoracentesis cytology pending. 7. Left foot gangrenous toes with intractable pain, PVD- scheduled for left below the knee amputation on by Dr. Lacy. Continue aspirin, statin. Plavix on hold due to surgery. Plan for OR on as patient is not able to manage pain at home in the meantime. Will need rehab following surgery. 8. Chronic hypoxic respiratory failure secondary to advanced COPD with fibrotic lung disease-continue home supplemental oxygen. As needed albuterol aerosol. 9. Type 2 diabetes mellitus-on insulin pump. Follows with endocrinology. Continue Accu-Cheks. Patient using home pump. 10. CAD with history of stent-continue medical management including aspirin, statin, metoprolol, isosorbide. Plavix held. 11. Paroxysmal atrial fibrillation-continue metoprolol. Not on anticoagulation. 12. History of prostate cancer 13. Hyperlipidemia-continue statin. 14. Normocytic anemia/anemia of chronic disease-appears stable. DVT prophylaxis- heparin sc This patient was seen by SHIVAM Dey under the supervision of Dr. Moser. Discharge plan: SNF following recovery from left BKA Time spent examining patient, reviewing data and subsequent management of care: 14 Minutes Documented by User: Dr. Vero Moser MD 02/08/22 15:08 Objective Data Lab / Micro Data Result Diagrams: 02/08/22 05:53 02/08/22 05:53 Charges/Coding Addendum Addendum: This patient was seen in conjunction with Basilio Darden NP. I have independently interviewed and examined the patient and reviewed pertinent historical, laboratory, and other data. I have reviewed her note and concur with her documentation. Patient was seen and examined. No acute events. He was seen on dialysis. Plan for surgery tomorrow Physical Exam: Gen: Comfortable, not pale, not jaundiced CVS:HS I +II, regular, no murmurs RESP: Diminished at lung bases GI: BS present and normal, soft, nontender, no palpable organs EXT:No edema ASSESSMENT: 1. Acute on chronic combined heart failure, EF 40%, stage I diastolic dysfunction 2. Left large transudative pleural effusion, status post thoracocentesis 3. ESRD on hemodialysis 4. Right upper lobe lung mass 5. Left foot gangrene of toes 6. Chronic hypoxic respiratory failure/COPD 7. Type II DM 8. CAD status post stent 9. Paroxysmal atrial fibrillation Plan: Continue to monitor Surgery tomorrow Continue aspirin, statin, metoprolol, isosorbide Hold Plavix and Eliquis Time spent coordinating patient's care, discussing with nursing, discussing with subspecialists: 18 minutes
[2022-02-08] MEDS: HYDROmorphone 1 MG/ML Syringe IV (14:37)
[2022-02-08] MEDS: 0.9% Saline Lock 10 ML Syringe IV (14:37)
--- NOTE | 2022-02-08 15:02 | PN.RENAL_ITS ---
Subjective Subjective No new complaints Objective Data Objective Data Vital Signs: Vital Signs Temp Pulse Resp BP Pulse Ox 97.3 F L 67 18 122/58 H 98 02/08/22 11:45 02/08/22 11:45 02/08/22 11:45 02/08/22 11:45 02/08/22 09:25 Oxygen Flow Rate (L/min) [4] 4 Oxygen Flow Rate (L/min) [3] 4 Oxygen Flow Rate (L/min) [2] 4 Oxygen Flow Rate (L/min) 3 Oxygen Delivery Method [3] Nasal Cannula Oxygen Delivery Method [2] Nasal Cannula Oxygen Delivery Method [1 ( Room Air Initial Baseline)] Oxygen Delivery Method Nasal Cannula Weight: 69.9 kg Body Mass Index (BMI) 23.1 Intake & Output: Intake and Output for Last 24 Hours 02/06/22 02/07/22 02/08/22 23:59 23:59 23:59 Intake Total 840 / 840 720 / 720 460 / 460 Output Total 2275 / 2275 0 / 0 Balance -1435 / -1435 720 / 720 460 / 460 Lab / Micro Data Result Diagrams: 02/08/22 05:53 02/08/22 05:53 Labs: Laboratory Results - last 24 hr 02/07/22 04:13: Lactate Dehydrogenase Cancelled 02/08/22 05:53: WBC 9.1, RBC 3.34 L, Hgb 9.2 L, Hct 30.1 L, MCV 90.1, MCH 27.5, MCHC 30.6 L, RDW Std Deviation 56.7 H, RDW Coeff of Janel 17.4 H, Plt Count 171, MPV 11.7, Immature Gran % (Auto) 0.300, Neut % (Auto) 84.5 H, Lymph % (Auto) 3.8 L, [place] % (Auto) 10.1 H, Eos % (Auto) 0.9, Baso % (Auto) 0.4, Absolute Neuts (auto) 7.7, Absolute Lymphs (auto) 0.35 L, Nucleated RBC % 0, Differential Comment SCANNED, Platelet Estimate ADEQUATE 02/08/22 05:53: Sodium 129 L, Potassium 4.9, Chloride 92 L, Carbon Dioxide 26.0, Anion Gap 11, BUN 48 H, Creatinine 5.47 H, Estim Creat Clear Calc 10.59, Est GFR (MDRD) Af Amer 13 L, Est GFR (MDRD) Non-Af 11 L, BUN/Creatinine Ratio 8.8 L, Glucose 207 H, Calcium 8.9 02/08/22 09:42: POC Glucose 192 H Micro: Microbiology 02/06/22 13:45 Fluid - Thoracentesis Fluid Gram Stain - Final 02/06/22 13:45 Fluid - Thoracentesis Fluid Body Fluid Culture - Preliminary No growth-Final to follow 02/06/22 13:45 Fluid - Thoracentesis Fluid Anaerobic Culture - Preliminary No growth in 48 hours. Physical Exam Narrative General: Alert and oriented x3, NAD HEENT: Normocephalic, atraumatic. Mucous membrane is moist. Neck: Supple, no JVD. Heart: Normal S1, S2. There is a 3/6 systolic murmur. No rubs. Lungs: Decreased breath sound at bases bilaterally. Abdomen: Normal bowel sound, soft, nontender, no guarding or rebound. Extremity: No clubbing or cyanosis. There is 2+ lower extremity edema bilaterally. Assessment & Plan Assessment/Plan (1) ESRD (end stage renal disease) on dialysis: PLAN: -The patient usually dialyzes on MWF schedule at [facility] [place]. Dialysis today (2) Anemia: PLAN: -The patient receives long-acting [facility]L at [facility]. (3) Peripheral vascular occlusive disease: PLAN: -The patient is scheduled for left BKA later this week. (4) Dyspnea: PLAN: -Likely multifactorial. The patient has COPD and recent Covid 19 infection. The patient also has known chronic left pleural effusion. -There is likely some component of volume overload with his left pleural effusion.
--- NOTE | 2022-02-08 16:32 | DIALYSIS ---
hemodialysis completed x 3hrs 15 min. Access via ANGY AVF. Net UF 1200ml. pt stable post tx. See HD flowsheet on chart.
[2022-02-08] MEDS: Atorvastatin Calcium 80 MG Tablet PO (21:09)
[2022-02-08] MEDS: Latanoprost 0.005% 1 Bottle 1 DRP OPHTHALMIC (21:11)
--- NOTE | 2022-02-08 21:17 | NURSING ---
patient's blood sugar is 275. He states he just gave himself 2.1 units of insulin through his insulin pump.
--- NOTE | 2022-02-08 22:02 | NURSING ---
Patient has turned continuous insulin infusion, per his insulin pump, off for the night, in preparation for surgery tomorrow.
[2022-02-09] VITALS (26 sets, daily range): BP systolic 88–135; BP diastolic 35–61; PULSE 67–101; RESP 12–22; TEMP 36.5–37.4; O2SAT 88–100; BMI 23.8
[2022-02-09] MEDS: LORazepam 1 MG Tablet PO ×2 (01:51→22:48)
[2022-02-09] MEDS: Ipratropium/Albuterol Sulfate 3 ML AMPUL.NEB INHALATION ×4 (03:38→23:22)
--- NOTE | 2022-02-09 03:43 | EKG12_ITS ---
Test Reason : PRE-OP Blood Pressure : / mmHG Vent. Rate : 078 BPM Atrial Rate : 072 BPM P-R Int : 000 ms QRS Dur : 130 ms QT Int : 408 ms P-R-T Axes : 000 -42 127 degrees QTc Int : 465 ms Atrial fibrillation Left axis deviation Left bundle branch block Abnormal ECG When compared with ECG of 03-FEB-2022 15:44, Left bundle branch block is now Present Criteria for Inferior infarct are no longer Present Confirmed by JACKELINE SPAULDING, KATALINA ([id number]), video editor TWIN ESPINOZA ([id number]) on 02/10/2022 2:41:54 PM Referred By: Simba Diaz Confirmed By:DALLIN VIVEROS MD
[2022-02-09 05:49] LABS: Absolute Lymphocyte Count 0.37 X10^3/uL (0.83-4.51); Absolute Neutrophil Count 6.8 X10^3/uL (2.0-7.7); Basophil# 0.04 X10^3/uL; Basophil% 0.5 % (0-1); Eosinophil# 0.06 X10^3/uL; Eosinophils% 0.7 % (0-5); Hematocrit 30.1 % (40-54); Hemoglobin 8.9 g/dL (13.0-16.5); Lymphocyte # 0.37 X10^3/ul (0.83-4.51); Lymphocyte % 4.2 % (19-41); Mean Corp Hgb Conc 29.6 g/dL (32-36); Mean Corpuscular Hgb 28.2 pg (27.0-32.0); Mean Corpuscular Volume 95.3 fL (80-94); Mean Platelet Vol. 10.6 fl (6.2-12.0); Monocyte# 1.37 X10^3/uL; Monocyte% 15.7 % (0-10); NRBC Flagged by Analyzer 0.2 % (0-5); Neutrophil # 6.84 X10^3/uL (2.7-7.7); Neutrophil % 78.4 % (47-70); POSITIVE DIFFERENTIAL YES; Platelet Count 267 K/mm3 (150-450); RBC Distribution Width CV 17.4 % (11.6-14.6); RBC Distribution Width SD 59.9 fl (35.1-43.9); Red Blood Count 3.16 M/mm3 (4.6-6.2); White Blood Count 8.7 K/mm3 (4.4-11.0)
[2022-02-09 05:51] LABS: Differential Indicated SCAN CRITERIA MET
--- NOTE | 2022-02-09 05:55 | RAD_ITS ---
EXAM: XR CHEST, 1 VIEW CLINICAL INDICATION: pre-operative TECHNIQUE: Frontal view of the chest. This report was created using [employer] report generation technology. COMPARISON: Chest x-ray 02/07/[address] scan of the chest 02/04/2022. FINDINGS: LUNGS AND PLEURAL SPACES: Persistent pleural and parenchymal disease left lung base. No pneumothorax. No effusion. HEART: Unremarkable. Cardiac silhouette not enlarged. MEDIASTINUM: Central airways and mediastinal contour are unremarkable. BONES/JOINTS: Unremarkable. SOFT TISSUES: Unremarkable. RAD/Chest 1 View (Portable) IMPRESSION: Persistent pleural and parenchymal disease left lung base. On the prior CT these was seen to represent consolidation/atelectasis and left pleural effusion. Electronically Signed: Chance Rice MD at 3:33 EDT ,
[2022-02-09 05:58] LABS: International Normalized Ratio 1.4; Prothrombin Time (Protime)PT. 16.6 SECONDS (11.7-14.9)
[2022-02-09 06:03] LABS: Anion Gap 11 (5-15); BUN 41 mg/dL (7-18); BUN/Creat Ratio 10.3 RATIO (10-20); Calcium,Total 8.6 mg/dL (8.5-10.1); Chloride 93 mmol/L (98-107); Creatinine, Serum 3.98 mg/dL (0.70-1.30); EST Glomerular Filtration Rate 16 mL/min (>60); Est Glom Filt Rate - Afr Amer 19 mL/min (>60); Estimated Creatinine Clearance 14.56 ml/min; Glucose 321 mg/dL (74-106); Potassium 4.7 mmol/L (3.5-5.1); Sodium Level 131 mmol/L (136-145)
[2022-02-09 06:26] LABS: Anisocytosis RARE; Differential Comment SCANNED; Macrocytosis RARE
[2022-02-09] MEDS: Budesonide Respules 0.5 MG/2 ML AMPUL.NEB. INHALATION ×2 (07:03→19:22)
[2022-02-09 07:11] LABS: Bedside Glucose 351 mg/dL (74-106)
[2022-02-09] MEDS: Insulin Lispro 100 UNIT/ML INSULN.PEN SC ×3 (07:55→21:53)
[2022-02-09] MEDS: 0.9% Saline Lock 10 ML Syringe IV (07:55)
[2022-02-09] MEDS: 0.9% Normal Saline 1,000 ML 50 ML IV (07:56)
[2022-02-09] MEDS: Isosorbide Mononitrate 30 MG Tablet PO (07:57)
[2022-02-09] MEDS: BRIMONIDINE 0.2% 5ML BOTTLE 1 DRP LEFT EYE ×2 (07:57→21:51)
[2022-02-09] MEDS: Timolol 0.5% 5ML OPTH.BTL 1 DRP OPHTHALMIC (07:58)
[2022-02-09] MEDS: Metoprolol(XL)Succ 25 MG Tablet 12.5 MG PO (07:58)
--- NOTE | 2022-02-09 08:32 | PN.CC_ITS ---
Assessment & Plan Assessment/Plan (1) Chronic hypoxemic respiratory failure: (2) Pulmonary nodule: (3) Pleural effusion, transudate: (4) ESRD (end stage renal disease) on dialysis: (5) Dry gangrene: PLAN: RECOMMENDATIONS: 1. Continue mucolytic and Acapella for pulmonary toileting 2. Continue Pulmicort as therapeutic substitution for outpatient triple therapy 3. Increase activity as tolerated 4. Monitor oxygenation in the perioperative period. 5. Will reevaluate after surgery, but optimized at this time IMPRESSIONS: 1. Chronic hypoxic respiratory failure secondary to COPD with new transudate effusion/pulmonary nodule Clinical suspicion for shortness of breath secondary to pleural effusion in the setting of relatively advanced COPD. Patient is back to his baseline supplemental oxygen. High clinical suspicion for renal or cardiac etiology for pleural effusion. Patient is receiving hemodialysis per routine. Patient likely has an element of retained secretions secondary to compression. Patient appears to have responded well to optimization yesterday. Will need to watch oxygen closely, but patient does not appear to be in exacerbation of COPD from my perspective. Patient's pulmonary nodules have been present since 2017. This makes it very unlikely that these are malignant in nature. Clinical suspicion for scarring given patient's past. This can be followed as an outpatient. 2. End-stage renal disease/peripheral vascular disease/dry gangrene of left toes Nephrology is following. Patient is receiving dialysis and tolerating this well. Okay to proceed with surgery from my perspective. Will attempt to avoid systemic steroids as this can delay wound healing. We will continue to follow the patient in the perioperative period. 3. Diabetes mellitus type 2/CAD/glaucoma/advanced age/anemia of chronic disease Complicates care, management, recovery and prognosis. Okay to continue with baseline medications. Patient was a confirmed to DNR comfort care arrest with intubation Subjective Subjective Patient with good response to mucolytic and Acapella therapy. No productive cough has been reported. Patient had questions about his sugars and insulin pu mp. Patient also reported that he was hungry and ready for surgery, but otherwise had no complaints. Patient thought that he was breathing good. Patient is on his baseline nasal cannula oxygen. Objective Data Objective Data Vital Signs: Vital Signs Temp Pulse Resp BP Pulse Ox 37.0 C 82 12 131/58 H 94 02/09/22 07:53 02/09/22 07:58 02/09/22 07:53 02/09/22 07:58 02/09/22 07:53 Oxygen Flow Rate (L/min) [4] 4 Oxygen Flow Rate (L/min) [3] 4 Oxygen Flow Rate (L/min) [2] 4 Oxygen Flow Rate (L/min) 3 Oxygen Delivery Method [3] Nasal Cannula Oxygen Delivery Method [2] Nasal Cannula Oxygen Delivery Method [1 ( Room Air Initial Baseline)] Oxygen Delivery Method Nasal Cannula Weight: 70.9 kg Body Mass Index (BMI) 23.1 Intake & Output: Intake and Output for Last 24 Hours 02/07/22 02/08/22 02/09/22 23:59 23:59 23:59 Intake Total 720 / 720 860 / 980 120 / 120 Output Total 0 / 0 2700 / 2700 Balance 720 / 720 -1840 / -1720 120 / 120 Lab / Micro Data Result Diagrams: 02/09/22 05:35 02/09/22 05:35 Labs: Laboratory Results - last 24 hr 02/08/22 09:42: POC Glucose 192 H 02/09/22 05:35: WBC 8.7, RBC 3.16 L, Hgb 8.9 L, Hct 30.1 L, MCV 95.3 H D, MCH 28.2, MCHC 29.6 L, RDW Std Deviation 59.9 H, RDW Coeff of Janel 17.4 H, Plt Count 267, MPV 10.6, Immature Gran % (Auto) 0.500, Neut % (Auto) 78.4 H, Lymph % (Auto) 4.2 L, [place] % (Auto) 15.7 H, Eos % (Auto) 0.7, Baso % (Auto) 0.5, Absolute Neuts (auto) 6.8, Absolute Lymphs (auto) 0.37 L, Nucleated RBC % 0.2, Differential Comment SCANNED, Anisocytosis RARE, Macrocytosis RARE 02/09/22 05:35: PT 16.6 H, INR 1.4 02/09/22 05:35: Sodium 131 L, Potassium 4.7, Chloride 93 L, Carbon Dioxide 27.0, Anion Gap 11, BUN 41 H, Creatinine 3.98 H, Estim Creat Clear Calc 14.56, Est GFR (MDRD) Af Amer 19 L, Est GFR (MDRD) Non-Af 16 L, BUN/Creatinine Ratio 10.3, Glucose 321 H, Calcium 8.6 02/09/22 05:35: Blood Type O POSITIVE, Antibody Screen NEGATIVE 02/09/22 05:35: Hemoglobin A1c 6.0 H 02/09/22 07:05: POC Glucose 351 H Micro: Microbiology 02/06/22 13:45 Fluid - Thoracentesis Fluid Gram Stain - Final 02/06/22 13:45 Fluid - Thoracentesis Fluid Body Fluid Culture - Preliminary No growth-Final to follow 02/06/22 13:45 Fluid - Thoracentesis Fluid Anaerobic Culture - Preliminary No growth in 48 hours. Radiography Diagnostic Testing: Radiology Impression Chest X-Ray 02/09/22 05:55 IMPRESSION: Persistent pleural and parenchymal disease left lung base. On the prior CT these was seen to represent consolidation/atelectasis and left pleural effusion. Electronically Signed: Chance Rice MD at 3:33 EDT , Physical Exam Const alert, oriented x3 and no apparent distress Orientation / Consciousness: awake, oriented to person, oriented to place and oriented to time HEENT normocephalic and moist oral mucous membranes Eyes PERRL, EOMs intact bilaterally and conjunctivae normal Neck no lymphadenopathy Chest Chest: abnormal inspection of the chest increased A-P diameter and symmetrical chest wall rise; Negative for crepitus Resp Auscultation: diminished lung sounds; Negative for rales, rhonchi or wheezes Cardio regular rate, regular rhythm and no murmurs Peripheral Pulses: pulses 2+ throughout GI non-tender Inspection: abdominal distention Extremity Extremity Narrative: Diminished peripheral pulses. General Extremity: clubbing; Negative for cyanosis or edema Skin no rashes or lesions noted Skin Narrative: Gangrenous toes left foot Neuro CN's II-XII intact bilaterally, no focal motor deficits, no sensory deficits noted and deep tendon reflexes 2+ bilaterally Psych mental status grossly normal and affect normal Charges/Coding Visit Charges Inpatient E&M: 37581 Subs Hosp L2
--- NOTE | 2022-02-09 10:20 | AMP_PTH ---
PATIENT: DIVYA HUSAIN LOC: [facility] U#:[id number] AGE/SX: 77/M ROOM: [facility] RE02/03/[address]: Dr. Lisa Perez MD : 1945 BED: 1 DIS: 02/17/2022 SPEC #: [id number] RECD: 02/09/22 13:35 STATUS: DRAGAN BA #: [id number] JONO: 02/09/22 10:[address]: Flynn Lacy DEPT: SURGICAL PATHOLOGY RECD BY: Keshav Moody ENTERED: 02/09/22 13:58 SP TYPE: Amputation OTHR DR: MD Dr. Justin Garcia MD Dr. Douglas R Brown, DO Dr. Allison Johnson Dr., MD Dr. Prakash Chand, MD Christina Muller, PROGRAM CONSULTANT-C Tissues: Left leg Procedures: Decalcification bone/plaque Surgery Specimen Level V HEADER OPERATION: Amputation below knee PRE-OP DIAGNOSIS: Peripheral vascular occlusive disease left leg TISSUE SUBMITTED: Left lower leg MICROSCOPIC DIAGNOSIS Left lower leg, below knee amputation: Gangrenous necrosis of skin and soft tissue with ulceration. Bone with acute osteomyelitis. Anterior and posterior tibial arteries with severe, calcific atherosclerotic disease. Skin and soft tissue at margin of resection with no significant pathologic change. AM:kimberly 02/15/2022 MICROSCOPIC DESCRIPTION Slides are reviewed. GROSS DESCRIPTION Received in without fixative is one container labeled with the patient's name and designated left lower leg. The specimen consists of a portion of left leg consisting of below knee amputation measuring from posterior cutaneous resection margin to the heel 22 cm. 10 cm portion of the fibula and 3 cm portion of the tibia is projecting beyond the posterior cutaneous resection margin. Anterior cutaneous resection margin is 5 cm above the posterior cutaneous resection margin. A detached portion of tibia is present measuring 2 cm in length and detached segment of fibula is present measuring up to 3.5 cm in length. Detached piece of pink-red soft tissue consistent with muscular tissue is also present measuring 6 x 4 x 2?cm. The foot measures from heel to tip of great toe 25 cm in length. Multiple areas of gangrenous ulceration and necrosis are noted involving dorsal and planter surfaces of great toe, second toe and third toe, and plantar surface of fourth toe and heel on the lateral surface, largest area measures up to 5 cm in greatest dimension. The nails appear atrophic. Anterior tibial vessels and posterior tibial vessels and dorsalis pedis vessels are dissected. Posterior tibial vessel and dorsalis pedis vessels show focal obliteration and cuts with gritty sensation. Welding Equipment Repairer Supervisor sections are submitted in eight cassettes as follows: 1 - cutaneous and skeletal muscle tissue resection margins, 2 - ulcerated and gangrenous areas,?3 - dorsalis pedis vessel, 4 - anterior tibial vessel, 5 - posterior tibial artery, 6 - marrow tissue, tibia,?7 & 8??bone underneath the gangrenous necrotic areas, great toe, second toe and third toe after decalcification. / SJ:rg 02/09/2022 TC:2 CPT: 20807, 77915
--- NOTE | 2022-02-09 10:49 | VDLE_ITS ---
Reason For Study: Pain Procedure LEFT This is a venous duplex using B-mode, color CFV is compressible, spontaneous, phasic, flow and spectral Doppler. competent, and demonstrates normal Exam performed portable in PACU. augmentation. Limited exam performed to rule out DVT is FV is compressible, spontaneous, phasic, CFV. competent and demonstrates normal A preliminary report was called and/or faxed augmentation. to [facility]. VL/Venous Duplex US, Unilateral Interpretation Summary No evidence for acute deep venous thrombosis left common femoral and femoral ve in Limited exam Ordering Physician: Arnoldo Carballo Referring Physician: Kenny Bolanos M.D. Performed By: iXomara Hale RVT
[2022-02-09] MEDS: Bupivacaine Mpf 0.5% 30 ML VIAL (13:02)
[2022-02-09 14:16] LABS: Bedside Glucose 392 mg/dL (74-106)
[2022-02-09] MEDS: Insulin Lispro 100 UNIT/ML INSULN.PEN 8 UNIT SC (14:41)
[2022-02-09] MEDS: Pregabalin 50 MG Capsule PO ×2 (16:20→21:52)
[2022-02-09] MEDS: Cefazolin 1 GM/50 ML BAG IV ×2 (16:23→21:51)
--- NOTE | 2022-02-09 16:24 | PCM.OPRPT ---
Report of Operation Date of Procedure: 02/09/22 Description of Surgical Findings:: Preoperative diagnosis: Dysvascular left lower extremity with dry gangrene of the foot Postoperative diagnosis: Dysvascular left lower extremity with dry gangrene of the foot Procedure: Left transtibial below-knee amputation Primary Surgeon: Flynn Lacy DO Occupational Therapy Director: Lisha Vance PA-C Anesthesiologist: Dr. Carballo Anesthesia: General LMA with femoral nerve block Complications: None apparent Specimen: Left below-knee amputation Packing/drains: None Estimated blood loss: 50 cc IV fluids: 150 cc crystalloid Implants: None Urine output: None recorded Intraoperative findings: Healthy appearing muscle and soft tissue at the level of amputation, contractile posterior compartment. Preoperative indications: This is a 77-year-old male with multiple comorbidities including insulin-dependent diabetes mellitus, COPD and peripheral vascular disease seen in both the inpatient outpatient setting for referral for left below-knee amputation after multiple attempts at revascularization of his left lower extremity. Patient had intractable left lower extremity pain during his most recent hospitalization. Patient was admitted for likely fluid overload resulting in shortness of breath. Patient is end-stage renal disease on dialysis as well. Patient's oxygen requirements were back to baseline following a thoracentesis for a pleural effusion and dialysis 3 days ago. Patient was optimized per the hospitalist and his liquid waste treatment plant operator. Surgery was planned on an outpatient setting to be performed today 02/09/2022. We elected to proceed with the planned surgery given the medical optimization. Description of procedure: Patient was identified in the preoperative holding area by name, medical record number, and date of . The operative extremity was marked. All questions were answered to patient satisfaction. Informed percent was confirmed with the patient. Dr. Carballo administered a femoral nerve block prior to the procedure to assist with intraoperative and postoperative analgesia. At time of his procedure, patient brought to the operative suite and positioned supine a standard operating table. General anesthesia was induced laryngeal mask airway placed. All bony prominences were well-padded. A well-padded pneumatic tourniquet was then applied to the left upper thigh. We then prepped and draped the left lower extremity in normal, sterile orthopedic fashion utilizing ChloraPrep. We performed a timeout with all parties in attendance in agreement with the side, site, operation to be performed. 2 g Ancef was administered prior to incision by anesthesia staff. No concerns were voiced wish to proceed with surgery. I first marked out a standard below-knee amputation utilizing a posterior flap. Anterior incision was marked approximately 10 cm distal to the tibial tubercle encompassing two thirds of the diameter of the limb. The posterior flap was marked 15 cm from the tibial tubercle encompassing the remaining one third of the diameter of the limb. I then exsanguinated the left lower extremity and Esmarch bandage. Tourniquet was inflated to 280 mmHg. Skin was sharply incised with a 10 blade scalpel through skin and subcutaneous tissue circumferentially. Bovie cautery was utilized to dissect down the level of the tibial crest. Anterior compartment was then split with Bovie cautery. Neurovascular bundles were identified. Vessels were ligated with silk suture. Nerves were identified, anesthetized with 0.5% plain bupivacaine, put on traction and sharply transected allowing them to retract into the stump. I continued dissection down the level of the fibula. I then utilized a sagittal saw to perform a transtibial transection of the bone. The anterior portion of the tibia was beveled and smoothed with a rasp. Approximately 1 cm proximal to the tibial resection, sagittal saw was used to transect the fibula as well. Lateral compartment was then sharply dissected through identifying neurovascular bundles which were managed as described above. I then placed the limb over a triangle dissecting the posterior flap free from the posterior border of the tibia. Neurovascular bundles were identified and managed as described above. The below-knee amputation resection was then removed from the surgical field and sent to pathology. Muscle was examined in all compartments and appeared to be contractile and healthy. Tourniquet was deflated. There was no bleeding immediately noted however after several minutes punctate bleeding was noted throughout the muscle bellies. Hemostasis was then achieved with Bovie cautery. The wound was copiously irrigated with normal saline solution. I resected the majority of the soleus to debulk the posterior flap. I then performed a myodesis with drill holes through the distal tibia utilizing 2-0 Ethibond suture through the posterior flap. Posterior compartment fascia was reapproximated anterior compartment fascia. Dermis was reapproximated with 2-0 Vicryl suture, buried. Skin was finally reapproximated with interrupted horizontal mattress 3-0 nylon suture. A bulky sterile compression dressing was then applied to the stump. Patient tolerated procedure well without apparent complication. He was safely extubated in the operative suite. He was transferred to PACU in stable condition. Need for skilled family services assistant: Lisha Vance PA-C was critical to the outcome of the case. During the course of the procedure the physician family services assistant played a vital role. Her intimate knowledge of my steps in the procedure aided in safe and expedient completion of the procedure. The PA played a vital role in positioning particularly in obtaining the appropriate positioning. The PA was also vital in the retraction of soft tissues during the exposure and projecting vital structures. The PA was also vital and protecting soft tissues during times of bony cuts. She also played a vital role in closure with my direct supervision. Postoperative plan: Patient is nonweightbearing to left lower extremity Maintain dressing until postoperative day #2 and less significant saturation is noted. Ice and elevation left lower extremity Plavix to restart tomorrow as well as aspirin. 24 hours [facility] be [facility] for placement of a rigid removable dressing to be placed on postoperative day #2 Follow-up with me in 2 weeks in the office
--- NOTE | 2022-02-09 16:28 | PCM.PN.HOSP ---
Subjective Subjective Follow-up on pleural effusion/left foot gangrene: Patient was seen and examined. He went for surgery today. No acute events overnight. Objective Data Objective Data Vital Signs: Vital Signs Temp Pulse Resp BP Pulse Ox 97.9 F 94 12 124/56 H 100 02/09/22 16:20 02/09/22 16:20 02/09/22 16:20 02/09/22 16:20 02/09/22 16:20 Oxygen Flow Rate (L/min) [4] 4 Oxygen Flow Rate (L/min) [3] 4 Oxygen Flow Rate (L/min) [2] 4 Oxygen Flow Rate (L/min) 4 Oxygen Delivery Method [3] Nasal Cannula Oxygen Delivery Method [2] Nasal Cannula Oxygen Delivery Method [1 ( Room Air Initial Baseline)] Oxygen Delivery Method Nasal Cannula Weight: 70.9 kg Body Mass Index (BMI) 23.8 Intake & Output: Intake and Output for Last 24 Hours 02/07/22 02/08/22 02/09/22 23:59 23:59 23:59 Intake Total 720 / 720 860 / 980 120 / 120 Output Total 0 / 0 2700 / 2700 0 / 0 Balance 720 / 720 -1840 / -1720 120 / 120 Lab / Micro Data Result Diagrams: 02/09/22 05:35 02/09/22 05:35 Labs: Laboratory Results - last 24 hr 02/06/22 13:45: Miscellaneous Cytology SEE PATHOLOGY REPORT 02/09/22 05:35: WBC 8.7, RBC 3.16 L, Hgb 8.9 L, Hct 30.1 L, MCV 95.3 H D, MCH 28.2, MCHC 29.6 L, RDW Std Deviation 59.9 H, RDW Coeff of Janel 17.4 H, Plt Count 267, MPV 10.6, Immature Gran % (Auto) 0.500, Neut % (Auto) 78.4 H, Lymph % (Auto) 4.2 L, [place] % (Auto) 15.7 H, Eos % (Auto) 0.7, Baso % (Auto) 0.5, Absolute Neuts (auto) 6.8, Absolute Lymphs (auto) 0.37 L, Nucleated RBC % 0.2, Differential Comment SCANNED, Anisocytosis RARE, Macrocytosis RARE 02/09/22 05:35: PT 16.6 H, INR 1.4 02/09/22 05:35: Sodium 131 L, Potassium 4.7, Chloride 93 L, Carbon Dioxide 27.0, Anion Gap 11, BUN 41 H, Creatinine 3.98 H, Estim Creat Clear Calc 14.56, Est GFR (MDRD) Af Amer 19 L, Est GFR (MDRD) Non-Af 16 L, BUN/Creatinine Ratio 10.3, Glucose 321 H, Calcium 8.6 02/09/22 05:35: Blood Type O POSITIVE, Antibody Screen NEGATIVE 02/09/22 05:35: Hemoglobin A1c 6.0 H 02/09/22 07:05: POC Glucose 351 H 02/09/22 14:09: POC Glucose 392 H Micro: Microbiology 02/06/22 13:45 Fluid - Thoracentesis Fluid Gram Stain - Final 02/06/22 13:45 Fluid - Thoracentesis Fluid Body Fluid Culture - Preliminary No growth-Final to follow 02/06/22 13:45 Fluid - Thoracentesis Fluid Anaerobic Culture - Preliminary No growth in 48 hours. Radiography Diagnostic Testing: Radiology Impression Chest X-Ray 02/09/22 05:55 IMPRESSION: Persistent pleural and parenchymal disease left lung base. On the prior CT these was seen to represent consolidation/atelectasis and left pleural effusion. Electronically Signed: Chance Rice MD at 3:33 EDT , Physical Exam Narrative Physical Exam: Gen: Comfortable, not pale, not jaundiced CVS:HS I +II, regular, no murmurs RESP: Diminished at lung bases GI: BS present and normal, soft, nontender, no palpable organs EXT:No edema Assessment & Plan Assessment/Plan (1) Dry gangrene: (2) Dyspnea: PLAN: 1. Acute on chronic combined heart failure, EF 40%, stage I diastolic dysfunction 2. Left large transudative pleural effusion, status post thoracocentesis 3. ESRD on hemodialysis 4. Right upper lobe lung mass 5. Left foot gangrene of toes 6. Chronic hypoxic respiratory failure/COPD 7. Type II DM 8. CAD status post stent 9. Paroxysmal atrial fibrillation Plan: Continue to plan for surgery per orthopedic recommendations Dialysis as scheduled Continue to monitor vitals Discharge planning ongoing Charges/Coding Visit Charges Inpatient E&M: 62053 Subs Hosp L2
[2022-02-09] MEDS: oxyCODONE 5 MG Tablet PO (16:37)
[2022-02-09] MEDS: Acetaminophen 325 MG Tablet 650 MG PO (16:38)
[2022-02-09 16:56] LABS: Bedside Glucose 370 mg/dL (74-106)
[2022-02-09 18:31] LABS: pH, Body Fluid 11254 7.5 (Not Estab.)
--- NOTE | 2022-02-09 19:36 | NURSING ---
All patient care and medication administration done by SN Messi completed under the supervision of this RN.
[2022-02-09] MEDS: guaiFENesin 1,200 MG Tablet 1200 MG PO (21:51)
[2022-02-09] MEDS: Senna/Docusate Sodium 1 Tablet 2 TABLET PO (21:51)
[2022-02-09] MEDS: Latanoprost 0.005% 1 Bottle 1 DRP OPHTHALMIC (21:52)
[2022-02-09] MEDS: Atorvastatin Calcium 80 MG Tablet PO (21:52)
[2022-02-09] MEDS: morphine SR 15 MG Tablet 30 MG PO (21:52)
[2022-02-09 22:25] LABS: Bedside Glucose 342 mg/dL (74-106)
[2022-02-10] VITALS (16 sets, daily range): BP systolic 100–130; BP diastolic 34–64; PULSE 80–98; RESP 14–24; TEMP 36.2–37.2; O2SAT 96–100
[2022-02-10] MEDS: Ipratropium/Albuterol Sulfate 3 ML AMPUL.NEB INHALATION ×3 (03:25→20:10)
--- NOTE | 2022-02-10 05:00 | CPS ---
Attempted PEP with Pt but he was too weak to perform effectively
[2022-02-10] MEDS: Insulin Lispro 100 UNIT/ML INSULN.PEN SC ×4 (06:45→21:27)
[2022-02-10 06:56] LABS: Bedside Glucose 398 mg/dL (74-106)
[2022-02-10 07:13] LABS: Absolute Lymphocyte Count 0.56 X10^3/uL (0.83-4.51); Absolute Neutrophil Count 6.6 X10^3/uL (2.0-7.7); Basophil# 0.03 X10^3/uL; Basophil% 0.4 % (0-1); Eosinophil# 0.01 X10^3/uL; Eosinophils% 0.1 % (0-5); Hematocrit 28.7 % (40-54); Hemoglobin 8.6 g/dL (13.0-16.5); Lymphocyte # 0.56 X10^3/ul (0.83-4.51); Lymphocyte % 6.7 % (19-41); Mean Corpuscular Hgb 27.7 pg (27.0-32.0); Mean Corpuscular Volume 92.3 fL (80-94); Mean Platelet Vol. 10.4 fl (6.2-12.0); Monocyte# 1.09 X10^3/uL; Monocyte% 13.1 % (0-10); NRBC Flagged by Analyzer 0.4 % (0-5); Neutrophil # 6.55 X10^3/uL (2.7-7.7); Neutrophil % 78.6 % (47-70); POSITIVE DIFFERENTIAL YES; Platelet Count 352 K/mm3 (150-450); RBC Distribution Width CV 17.5 % (11.6-14.6); RBC Distribution Width SD 58.3 fl (35.1-43.9); Red Blood Count 3.11 M/mm3 (4.6-6.2); White Blood Count 8.3 K/mm3 (4.4-11.0)
[2022-02-10 07:15] LABS: Differential Indicated SCAN CRITERIA MET
--- NOTE | 2022-02-10 07:35 | PCM.PN.ORT ---
Subjective Subjective Patient seen and examined. States he feels tired but denies any other new symptoms. States he has no pain at rest in his left lower extremity. Tolerating oral intake without nausea or vomiting. Denies chest pain or shortness of breath. Objective Data Objective Data Vital Signs: Vital Signs Temp Pulse Resp BP Pulse Ox 98.8 F 98 18 110/60 97 02/10/22 06:30 02/10/22 06:30 02/10/22 06:30 02/10/22 06:30 02/10/22 06:30 Oxygen Flow Rate (L/min) [4] 4 Oxygen Flow Rate (L/min) [3] 4 Oxygen Flow Rate (L/min) [2] 4 Oxygen Flow Rate (L/min) 3 Oxygen Delivery Method [3] Nasal Cannula Oxygen Delivery Method [2] Nasal Cannula Oxygen Delivery Method [1 ( Room Air Initial Baseline)] Oxygen Delivery Method Nasal Cannula Weight: 161 lb 9.581 oz Body Mass Index (BMI) 23.8 Intake & Output: Intake and Output for Last 24 Hours 02/08/22 02/09/22 02/10/22 23:59 23:59 23:59 Intake Total 860 / 980 1189.17 / 1389.17 200 / 200 Output Total 2700 / 2700 0 / 0 0 / 0 Balance -1840 / -1720 1189.17 / 1389.17 200 / 200 Lab / Micro Data Result Diagrams: 02/10/22 06:33 02/09/22 05:35 Labs: Laboratory Results - last 24 hr 02/05/22 13:45: Fluid pH 7.5 02/06/22 13:45: Miscellaneous Cytology SEE PATHOLOGY REPORT 02/09/22 05:35: Hemoglobin A1c 6.0 H 02/09/22 14:09: POC Glucose 392 H 02/09/22 16:17: POC Glucose 370 H 02/09/22 21:46: POC Glucose 342 H 02/10/22 06:33: WBC 8.3, RBC 3.11 L, Hgb 8.6 L, Hct 28.7 L, MCV 92.3, MCH 27.7, MCHC 30.0 L, RDW Std Deviation 58.3 H, RDW Coeff of Janel 17.5 H, Plt Count 352, MPV 10.4, Immature Gran % (Auto) 1.100 H, Neut % (Auto) 78.6 H, Lymph % (Auto) 6.7 L, Mccracken % (Auto) 13.1 H, Eos % (Auto) 0.1, Baso % (Auto) 0.4, Absolute Neuts (auto) 6.6, Absolute Lymphs (auto) 0.56 L, Nucleated RBC % 0.4 02/10/22 06:44: POC Glucose 398 H Micro: Microbiology 02/06/22 13:45 Fluid - Thoracentesis Fluid Gram Stain - Final 02/06/22 13:45 Fluid - Thoracentesis Fluid Body Fluid Culture - Preliminary No growth-Final to follow 02/06/22 13:45 Fluid - Thoracentesis Fluid Anaerobic Culture - Preliminary No growth in 48 hours. Radiography Diagnostic Testing: Radiology Impression Venous Doppler Study 02/09/22 10:49 Interpretation Summary No evidence for acute deep venous thrombosis left common femoral and femoral vein Limited exam Ordering Physician: Arnoldo Carballo Referring Physician: Kenny Bolanos M.D. Performed By: Xiomara Hale RVT Physical Exam Narrative General-alert and oriented x3, NAD Left lower extremity-BKA stump incisional dressing clean, dry, intact. Sensation intact throughout. Active flexion and extension of the knee intact. Femoral pulses 2+. Assessment & Plan Assessment/Plan (1) Dry gangrene: PLAN: POD#1 s/p left BKA - Pain control -patient appears slightly lethargic this morning, questionable contribution from anesthesia versus scheduled narcotics. We may be able to titrate down his narcotic usage given the change in etiology of pain at this point. Lyrica is also considered for a contributing factor to lethargy. - Medicine following for medical management - PT/OT - DVT PPX -aspirin Plavix restarted -Surgical dressing-maintain at this point. Plan to consult [employer] for an student finance specialist to fit the patient for a rigid removable dressing on postoperative day #2. -Will follow - Case management - D/C planning
[2022-02-10 07:44] LABS: ALB/GLOB Ratio 0.6 RATIO (0.9-2.4); AST(SGOT) 37 U/L (15-37); Alanine Aminotransfer ALT/SGPT 22 U/L (16-61); Albumin, Serum 2.6 g/dL (3.2-5.0); Alkaline Phosphatase 111 U/L (45-117); Anion Gap 16 (5-15); BUN 83 mg/dL (7-18); Calcium,Total 8.4 mg/dL (8.5-10.1); Chloride 90 mmol/L (98-107); Creatinine, Serum 5.92 mg/dL (0.70-1.30); EST Glomerular Filtration Rate 10 mL/min (>60); Est Glom Filt Rate - Afr Amer 12 mL/min (>60); Estimated Creatinine Clearance 9.79 ml/min; Globulin 4.6 g/dL (2.2-4.2); Glucose 428 mg/dL (74-106); Potassium 5.4 mmol/L (3.5-5.1); Protein, Total 7.2 g/dL (6.4-8.2); Sodium Level 127 mmol/L (136-145)
[2022-02-10] MEDS: LORazepam 1 MG Tablet PO (08:22)
[2022-02-10] MEDS: Nepro with Carbsteady 237 ML Liquid 120 ML PO ×3 (08:23→17:18)
--- NOTE | 2022-02-10 08:28 | PN.CC_ITS ---
Assessment & Plan Assessment/Plan (1) Chronic hypoxemic respiratory failure: (2) Pulmonary nodule: (3) Pleural effusion, transudate: (4) ESRD (end stage renal disease) on dialysis: (5) Dry gangrene: PLAN: RECOMMENDATIONS: 1. Continue mucolytic and Acapella for pulmonary toileting 2. Continue Pulmicort/DuoNeb as therapeutic substitution for outpatient triple therapy 3. Increase activity as tolerated 4. Monitor oxygenation in the perioperative period. 5. We will follow peripherally. Patient appears to be at respiratory baseline IMPRESSIONS: 1. Chronic hypoxic respiratory failure secondary to COPD with new transudate effusion/pulmonary nodule Clinical suspicion for shortness of breath secondary to pleural effusion in the setting of relatively advanced COPD. Patient is back to his baseline supplemental oxygen. High clinical suspicion for renal or cardiac etiology for pleural effusion. Patient is receiving hemodialysis per routine. Patient likely has an element of retained secretions secondary to compression. Patient appears to have responded well to optimization yesterday. Will need to watch oxygen closely, but patient does not appear to be in exacerbation of COPD from my perspective. Patient's pulmonary nodules have been present since 2017. This makes it very unlikely that these are malignant in nature. Clinical suspicion for scarring given patient's past. This can be followed as an outpatient. 2. End-stage renal disease/peripheral vascular disease/dry gangrene of left toes Nephrology is following. Patient is receiving dialysis and tolerating this well. Okay to proceed with surgery from my perspective. Will attempt to avoid systemic steroids as this can delay wound healing. We will continue to follow the patient in the perioperative period. 3. Diabetes mellitus type 2/CAD/glaucoma/advanced age/anemia of chronic disease Complicates care, management, recovery and prognosis. Okay to continue with baseline medications. Patient was a confirmed to DNR comfort care arrest with intubation Subjective Subjective Patient tolerated surgery well. Patient states his respiratory status is at its baseline for dialysis today. Patient's blood pressure reportedly has been stable throughout the evening. No fevers been noted. Patient is reporting some mild discomfort of the leg but feels it is tolerable. Objective Data Objective Data Vital Signs: Vital Signs Temp Pulse Resp BP Pulse Ox 37.1 C 98 18 110/60 98 02/10/22 06:30 02/10/22 06:56 02/10/22 06:30 02/10/22 06:30 02/10/22 08:03 Oxygen Flow Rate (L/min) [4] 4 Oxygen Flow Rate (L/min) [3] 4 Oxygen Flow Rate (L/min) [2] 4 Oxygen Flow Rate (L/min) 3 Oxygen Delivery Method [3] Nasal Cannula Oxygen Delivery Method [2] Nasal Cannula Oxygen Delivery Method [1 ( Room Air Initial Baseline)] Oxygen Delivery Method Nasal Cannula Weight: 73.3 kg Body Mass Index (BMI) 23.8 Intake & Output: Intake and Output for Last 24 Hours 02/08/22 02/09/22 02/10/22 23:59 23:59 23:59 Intake Total 860 / 980 1189.17 / 1389.17 200 / 200 Output Total 2700 / 2700 0 / 0 0 / 0 Balance -1840 / -1720 1189.17 / 1389.17 200 / 200 Lab / Micro Data Result Diagrams: 02/10/22 06:33 02/10/22 06:33 Labs: Laboratory Results - last 24 hr 02/05/22 13:45: Fluid pH 7.5 02/06/22 13:45: Miscellaneous Cytology SEE PATHOLOGY REPORT 02/09/22 14:09: POC Glucose 392 H 02/09/22 16:17: POC Glucose 370 H 02/09/22 21:46: POC Glucose 342 H 02/10/22 06:33: WBC 8.3, RBC 3.11 L, Hgb 8.6 L, Hct 28.7 L, MCV 92.3, MCH 27.7, MCHC 30.0 L, RDW Std Deviation 58.3 H, RDW Coeff of Janel 17.5 H, Plt Count 352, MPV 10.4, Immature Gran % (Auto) 1.100 H, Neut % (Auto) 78.6 H, Lymph % (Auto) 6.7 L, Haakon % (Auto) 13.1 H, Eos % (Auto) 0.1, Baso % (Auto) 0.4, Absolute Neuts (auto) 6.6, Absolute Lymphs (auto) 0.56 L, Nucleated RBC % 0.4 02/10/22 06:33: Sodium 127 L, Potassium 5.4 H, Chloride 90 L, Carbon Dioxide 21.0, Anion Gap 16 H, BUN 83 H, Creatinine 5.92 H, Estim Creat Clear Calc 9.79, Est GFR (MDRD) Af Amer 12 L, Est GFR (MDRD) Non-Af 10 L, BUN/Creatinine Ratio 14.0, Glucose 428 H, Calcium 8.4 L, Total Bilirubin 0.70, AST 37, ALT 22, Alkaline Phosphatase 111, Total Protein 7.2, Albumin 2.6 L, Globulin 4.6 H, Albumin/Globulin Ratio 0.6 L 02/10/22 06:44: POC Glucose 398 H Micro: Microbiology 02/06/22 13:45 Fluid - Thoracentesis Fluid Gram Stain - Final 02/06/22 13:45 Fluid - Thoracentesis Fluid Body Fluid Culture - Final Culture exhibits no growth. 02/06/22 13:45 Fluid - Thoracentesis Fluid Anaerobic Culture - Preliminary No growth in 48 hours. Radiography Diagnostic Testing: Radiology Impression Venous Doppler Study 02/09/22 10:49 Interpretation Summary No evidence for acute deep venous thrombosis left common femoral and femoral vein Limited exam Ordering Physician: Arnoldo Carballo Referring Physician: Kenny Bolanos M.D. Performed By: Xiomara Hale RVT Physical Exam Const alert, oriented x3 and no apparent distress Orientation / Consciousness: awake, oriented to person, oriented to place and oriented to time HEENT normocephalic and moist oral mucous membranes Eyes PERRL, EOMs intact bilaterally and conjunctivae normal Neck no lymphadenopathy Chest Chest: abnormal inspection of the chest increased A-P diameter and symmetrical chest wall rise; Negative for crepitus Resp Auscultation: diminished lung sounds; Negative for rales, rhonchi or wheezes Cardio regular rate, regular rhythm and no murmurs Peripheral Pulses: pulses 2+ throughout GI non-tender Inspection: abdominal distention Extremity Extremity Narrative: Left BKA General Extremity: clubbing; Negative for cyanosis or edema Skin no rashes or lesions noted Skin Narrative: Gangrenous toes left foot Neuro CN's II-XII intact bilaterally, no focal motor deficits, no sensory deficits noted and deep tendon reflexes 2+ bilaterally Psych mental status grossly normal and affect normal Charges/Coding Visit Charges Inpatient E&M: 77883 Subs Hosp L2
--- NOTE | 2022-02-10 09:32 | NURSING ---
Spoke with Janel at [employer]. Face sheet and order faxed per request. Janel stated a rep will come Sunday morning to fit the patient.
[2022-02-10] MEDS: morphine SR 15 MG Tablet 30 MG PO (09:38)
--- NOTE | 2022-02-10 10:16 | PCM.PN.REN ---
Subjective Subjective Seen on HD, tolerating treatment well. Alert to name but has some confused conversation. Objective Data Objective Data Vital Signs: Vital Signs Temp Pulse Resp BP Pulse Ox 98.8 F 98 18 110/60 98 02/10/22 06:30 02/10/22 06:56 02/10/22 06:30 02/10/22 06:30 02/10/22 08:03 Oxygen Flow Rate (L/min) [4] 4 Oxygen Flow Rate (L/min) [3] 4 Oxygen Flow Rate (L/min) [2] 4 Oxygen Flow Rate (L/min) 3 Oxygen Delivery Method [3] Nasal Cannula Oxygen Delivery Method [2] Nasal Cannula Oxygen Delivery Method [1 ( Room Air Initial Baseline)] Oxygen Delivery Method Nasal Cannula Weight: 73.3 kg Body Mass Index (BMI) 23.8 Intake & Output: Intake and Output for Last 24 Hours 02/08/22 02/09/22 02/10/22 23:59 23:59 23:59 Intake Total 860 / 980 1189.17 / 1389.17 200 / 200 Output Total 2700 / 2700 0 / 0 0 / 0 Balance -1840 / -1720 1189.17 / 1389.17 200 / 200 Lab / Micro Data Result Diagrams: 02/10/22 06:33 02/10/22 06:33 Labs: Laboratory Results - last 24 hr 02/05/22 13:45: Fluid pH 7.5 02/06/22 13:45: Miscellaneous Cytology SEE PATHOLOGY REPORT 02/09/22 14:09: POC Glucose 392 H 02/09/22 16:17: POC Glucose 370 H 02/09/22 21:46: POC Glucose 342 H 02/10/22 06:33: WBC 8.3, RBC 3.11 L, Hgb 8.6 L, Hct 28.7 L, MCV 92.3, MCH 27.7, MCHC 30.0 L, RDW Std Deviation 58.3 H, RDW Coeff of Janel 17.5 H, Plt Count 352, MPV 10.4, Immature Gran % (Auto) 1.100 H, Neut % (Auto) 78.6 H, Lymph % (Auto) 6.7 L, Cabell % (Auto) 13.1 H, Eos % (Auto) 0.1, Baso % (Auto) 0.4, Absolute Neuts (auto) 6.6, Absolute Lymphs (auto) 0.56 L, Nucleated RBC % 0.4 02/10/22 06:33: Sodium 127 L, Potassium 5.4 H, Chloride 90 L, Carbon Dioxide 21.0, Anion Gap 16 H, BUN 83 H, Creatinine 5.92 H, Estim Creat Clear Calc 9.79, Est GFR (MDRD) Af Amer 12 L, Est GFR (MDRD) Non-Af 10 L, BUN/Creatinine Ratio 14.0, Glucose 428 H, Calcium 8.4 L, Total Bilirubin 0.70, AST 37, ALT 22, Alkaline Phosphatase 111, Total Protein 7.2, Albumin 2.6 L, Globulin 4.6 H, Albumin/Globulin Ratio 0.6 L 02/10/22 06:44: POC Glucose 398 H Micro: Microbiology 02/06/22 13:45 Fluid - Thoracentesis Fluid Gram Stain - Final 02/06/22 13:45 Fluid - Thoracentesis Fluid Body Fluid Culture - Final Culture exhibits no growth. 02/06/22 13:45 Fluid - Thoracentesis Fluid Anaerobic Culture - Preliminary No growth in 48 hours. Radiography Diagnostic Testing: Radiology Impression Venous Doppler Study 02/09/22 10:49 Interpretation Summary No evidence for acute deep venous thrombosis left common femoral and femoral vein Limited exam Ordering Physician: Arnoldo Carballo Referring Physician: Kenny Bolanos M.D. Performed By: Xiomara Hale RVT Physical Exam Narrative General: Alert to name and place, NAD HEENT: Normocephalic, atraumatic. Mucous membrane is moist. Neck: Supple, no JVD. Heart: Normal S1, S2. There is a 3/6 systolic murmur. No rubs. Lungs: Decreased breath sound at bases bilaterally. Abdomen: Normal bowel sound, soft, nontender Extremity: No clubbing or cyanosis. no edema right leg. Left BKA AVF access for HD Assessment & Plan Assessment/Plan (1) ESRD (end stage renal disease) on dialysis: PLAN: -The patient usually dialyzes on MWF schedule at [facility] [place]. Dialysis today over 3hr 15 minutes on 2kbath. Will attempt UF as pt/bp tolerates. Patient will have a new lowered dry weight by time of discharge. - bps have been low, will stop toprol (patient has been off bp meds for few months) (2) Anemia: PLAN: -The patient [facility] long-acting [facility]L at [facility]. Last received 02/03 (3) Peripheral vascular occlusive disease: PLAN: -s/p Left BKA 02/09. (4) Dyspnea: PLAN: -Likely multifactorial. The patient has COPD and recent Covid 19 infection. The patient also has known chronic left pleural effusion. -There is likely some component of volume overload with his left pleural effusion. - UF as patient and bp tolerates - d/c plans in progress, possibly to [facility] over the weekend
[2022-02-10 11:21] LABS: Bedside Glucose 217 mg/dL (74-106)
--- NOTE | 2022-02-10 11:47 | PCM.PN.HOSP ---
Subjective Subjective Follow-up on pleural effusion/left foot gangrene: Patient was seen and examined. Patient appears slightly confused today. He was seen before dialysis. He stated that his mind feels foggy. His pain is controlled. He was started on Lyrica yesterday by orthopedics. Objective Data Objective Data Vital Signs: Vital Signs Temp Pulse Resp BP Pulse Ox 97.2 F L 93 18 105/58 L 99 02/10/22 10:30 02/10/22 10:30 02/10/22 10:30 02/10/22 10:30 02/10/22 10:30 Oxygen Flow Rate (L/min) [4] 4 Oxygen Flow Rate (L/min) [3] 4 Oxygen Flow Rate (L/min) [2] 4 Oxygen Flow Rate (L/min) 3 Oxygen Delivery Method [3] Nasal Cannula Oxygen Delivery Method [2] Nasal Cannula Oxygen Delivery Method [1 ( Room Air Initial Baseline)] Oxygen Delivery Method Nasal Cannula Weight: 73.3 kg Body Mass Index (BMI) 23.8 Intake & Output: Intake and Output for Last 24 Hours 02/08/22 02/09/22 02/10/22 23:59 23:59 23:59 Intake Total 860 / 980 1189.17 / 1389.17 200 / 200 Output Total 2700 / 2700 0 / 0 0 / 0 Balance -1840 / -1720 1189.17 / 1389.17 200 / 200 Lab / Micro Data Result Diagrams: 02/10/22 06:33 02/10/22 06:33 Labs: Laboratory Results - last 24 hr 02/05/22 13:45: Fluid pH 7.5 02/06/22 13:45: Miscellaneous Cytology SEE PATHOLOGY REPORT 02/09/22 14:09: POC Glucose 392 H 02/09/22 16:17: POC Glucose 370 H 02/09/22 21:46: POC Glucose 342 H 02/10/22 06:33: WBC 8.3, RBC 3.11 L, Hgb 8.6 L, Hct 28.7 L, MCV 92.3, MCH 27.7, MCHC 30.0 L, RDW Std Deviation 58.3 H, RDW Coeff of Janel 17.5 H, Plt Count 352, MPV 10.4, Immature Gran % (Auto) 1.100 H, Neut % (Auto) 78.6 H, Lymph % (Auto) 6.7 L, Barron % (Auto) 13.1 H, Eos % (Auto) 0.1, Baso % (Auto) 0.4, Absolute Neuts (auto) 6.6, Absolute Lymphs (auto) 0.56 L, Nucleated RBC % 0.4 02/10/22 06:33: Sodium 127 L, Potassium 5.4 H, Chloride 90 L, Carbon Dioxide 21.0, Anion Gap 16 H, BUN 83 H, Creatinine 5.92 H, Estim Creat Clear Calc 9.79, Est GFR (MDRD) Af Amer 12 L, Est GFR (MDRD) Non-Af 10 L, BUN/Creatinine Ratio 14.0, Glucose 428 H, Calcium 8.4 L, Total Bilirubin 0.70, AST 37, ALT 22, Alkaline Phosphatase 111, Total Protein 7.2, Albumin 2.6 L, Globulin 4.6 H, Albumin/Globulin Ratio 0.6 L 02/10/22 06:44: POC Glucose 398 H 02/10/22 11:10: POC Glucose 217 H Micro: Microbiology 02/06/22 13:45 Fluid - Thoracentesis Fluid Gram Stain - Final 02/06/22 13:45 Fluid - Thoracentesis Fluid Body Fluid Culture - Final Culture exhibits no growth. 02/06/22 13:45 Fluid - Thoracentesis Fluid Anaerobic Culture - Preliminary No growth in 48 hours. Radiography Diagnostic Testing: Radiology Impression Venous Doppler Study 02/09/22 10:49 Interpretation Summary No evidence for acute deep venous thrombosis left common femoral and femoral vein Limited exam Ordering Physician: Arnoldo Carballo Referring Physician: Kenny Bolanos M.D. Performed By: Xiomara Hale RVT Physical Exam Narrative Physical Exam: Gen: Comfortable, not pale, not jaundiced CVS:HS I +II, regular, no murmurs RESP: Diminished at lung bases GI: BS present and normal, soft, nontender, no palpable organs EXT: Left BKA, Fabrice wraps to the wound Assessment & Plan Assessment/Plan (1) Dry gangrene: (2) Dyspnea: QUALIFIERS: Dyspnea type: unspecified Qualified Code(s): R06.00 - Dyspnea, unspecified PLAN: 1. Acute on chronic combined heart failure, EF 40%, stage I diastolic dysfunction 2. Left large transudative pleural effusion, status post thoracocentesis 3. ESRD on hemodialysis 4. Right upper lobe lung mass 5. Postop day #1 status post left BKA 6. Chronic hypoxic respiratory failure/COPD 7. Type II DM 8. CAD status post stent 9. Paroxysmal atrial fibrillation 10. Acute metabolic encephalopathy, likely multifactorial, post op Plan: Discontinue Lyrica Continue to follow patient's mentation after dialysis Dialysis as scheduled Continue to monitor vitals Discharge planning ongoing Charges/Coding Visit Charges Inpatient E&M: 76315 Subs Hosp L2
[2022-02-10] MEDS: Clopidogrel Bisulfate 75 MG Tablet PO (12:12)
[2022-02-10] MEDS: Senna/Docusate Sodium 1 Tablet 2 TABLET PO ×2 (12:12→21:28)
[2022-02-10] MEDS: guaiFENesin 1,200 MG Tablet 1200 MG PO ×2 (12:12→21:28)
[2022-02-10] MEDS: Aspirin E.C. 81 MG Tablet PO (12:12)
[2022-02-10] MEDS: Timolol 0.5% 5ML OPTH.BTL 1 DRP OPHTHALMIC (12:13)
[2022-02-10] MEDS: BRIMONIDINE 0.2% 5ML BOTTLE 1 DRP LEFT EYE ×2 (12:13→21:24)
--- NOTE | 2022-02-10 12:15 | DIALYSIS ---
HD x 3.25 hours complete. Ran on 2k bath. UF of 800ml. Used left arm fistula. Kingsley removed post tx and pressure applied x 10 minutes. Hemostasis achieved. Fresh gauze and tape applied. Report was given to AILIN Garcia.
[2022-02-10] MEDS: Midodrine HCl 5 MG Tablet PO ×2 (14:22→17:17)
--- NOTE | 2022-02-10 14:50 | CASEMGMT ---
Social Work Per Dr. Moser patient might be medically cleared over the weekend. Telephone call to JOSÉ MIGUEL, Theresa Cardenas confirms that patient is able to come over the weekend. This high school social science teacher to patient room. This high school social science teacher updated patient and patient family on above information. All agreeable to discharge plan to [facility], when patient is medically cleared. Green sheet placed on chart. PLAN: GERMANIA, skilled. Tammie NAJERA, TYESHA-S
[2022-02-10 18:01] LABS: Bedside Glucose 396 mg/dL (74-106)
[2022-02-10] MEDS: Furosemide 40 MG/4 ML Vial 20 MG IV (18:53)
--- NOTE | 2022-02-10 18:55 | RAD_ITS ---
INDICATION: sob EXAMINATION/TECHNIQUE: X-RAY - XR Chest 1 View COMPARISON: 02/09/2022. FINDINGS: Unchanged bilateral interstitial opacities. Tortuous and calcified thoracic aorta. The heart is not enlarged. Questionable small left pleural effusion versus pleural thickening. No pneumothorax. Degenerative changes of the thoracic spine. RAD/Chest 1 View (Portable) IMPRESSION: Unchanged bilateral interstitial opacities may represent edema and/or infection. Questionable small left pleural effusion versus pleural thickening. Electronically Signed: Morris Cervantes MD at 19:09 EDT ,
[2022-02-10 19:03] LABS: Magnesium 2.3 mg/dL (1.6-2.6)
[2022-02-10] MEDS: Budesonide Respules 0.5 MG/2 ML AMPUL.NEB. INHALATION (20:10)
[2022-02-10] MEDS: Atorvastatin Calcium 80 MG Tablet PO (21:28)
[2022-02-10] MEDS: Latanoprost 0.005% 1 Bottle 1 DRP OPHTHALMIC (21:29)
[2022-02-10 21:46] LABS: Allen Test Negative; Base Excess 1 mmol/L (-2 to +2); Bicarbonate 26.1 mmol/L (22-26); Blood Gas Specimen Type ART; O2 Delivery Device Cannula; PO2 85 mmHG (75-100); SITE R Brach; SO2 96 % (95-99); Total Carbon Dioxide 28 mmol/L; pCO2 45.2 mmHg (35-45); pH 7.37 (7.35-7.45)
[2022-02-10] MEDS: Insulin Glargine-YFGN 100 UNIT/ML Pen 10 UNIT SC (21:46)
[2022-02-10 22:46] LABS: Bedside Glucose 366 mg/dL (74-106)
--- NOTE | 2022-02-10 23:10 | RAD_ITS ---
EXAM: XR CHEST, 1 VIEW CLINICAL INDICATION: sob TECHNIQUE: Frontal view of the chest. This report was created using [employer] report generation technology. COMPARISON: 02/10/2022 at 6:47 PM, 02/09/2022 at 2:53 AM, and 02/07/2022 at 2:14 PM. FINDINGS: LUNGS AND PLEURAL SPACES: Mild interstitial prominence again noted bilaterally. Previously noted pleural and parenchymal disease in the left lung base has resolved. No pneumothorax. No effusion. HEART: Unremarkable. Cardiac silhouette not enlarged. MEDIASTINUM: Central airways and mediastinal contour are unremarkable. BONES/JOINTS: Unremarkable. SOFT TISSUES: Unremarkable. RAD/Chest 1 View (Portable) IMPRESSION: Mild interstitial prominence again noted bilaterally. Previously noted pleural and parenchymal disease in the left lung base has resolved. Electronically Signed: Chance Rice MD at 23:49 EDT ,
--- NOTE | 2022-02-10 23:10 | RAD_ITS ---
EXAM: XR ABDOMEN, 1 VIEW CLINICAL INDICATION: Abdominal pain TECHNIQUE: Frontal supine view of the abdomen/pelvis. This report was created using [employer] report generation technology. COMPARISON: None. FINDINGS: LOWER THORAX: No acute pathology. GASTROINTESTINAL TRACT: Large bowel is very distended with gas. ORGANS: Unremarkable as visualized. No organomegaly. No abnormal calcifications. BONES/JOINTS: No acute pathology. SOFT TISSUES: No acute pathology. RAD/Abdomen Single View (Portable) IMPRESSION: Large bowel is very distended with gas. Electronically Signed: Chance Rice MD at 23:51 EDT ,
[2022-02-11] VITALS (22 sets, daily range): BP systolic 99–122; BP diastolic 47–68; PULSE 84–100; RESP 12–20; TEMP 36.2–37.1; O2SAT 95–100
[2022-02-11] MEDS: Ipratropium/Albuterol Sulfate 3 ML AMPUL.NEB INHALATION ×6 (00:14→23:27)
--- NOTE | 2022-02-11 00:22 | CT_ITS ---
We are attempting to reach an attending provider to discuss findings. An addendum with communication details will be sent when the communication is complete. EXAM: CT ABDOMEN AND PELVIS WITHOUT INTRAVENOUS CONTRAST CLINICAL INDICATION: Abdominal distention; constipation TECHNIQUE: Helically acquired images were obtained of the abdomen and pelvis without intravenous contrast. This CT exam was performed using one or more of the following dose reduction techniques: automated exposure control, adjustment of the mA and/or kV according to patient size, and/or use of iterative reconstruction technique. This report was created using [employer] report [employer] technology. RADIATION DOSAGE (If Required by State): CTDIvol = (11.31) mGy, DLP = (601.72) mGycm. COMPARISON: 01/29/2022. FINDINGS: LOWER THORAX: Small area of consolidation left lung base posteriorly likely pneumonia. Small left pleural effusion. Coronary artery calcifications. No cardiomegaly. ABDOMEN: LIVER: Unremarkable. Homogeneous. GALLBLADDER AND BILE DUCTS: Cholelithiasis. No gallbladder distention or wall edema. No intra- or extrahepatic biliary ductal dilation. PANCREAS: Unremarkable. No focal cystic mass. SPLEEN: Unremarkable. Normal size without focal cystic or solid mass. ADRENALS: Unremarkable. No nodules. KIDNEYS AND URETERS: Bilaterally the kidneys are mildly atrophic with extensive vascular calcifications. No hydronephrosis. STOMACH AND BOWEL: Gaseous distention of the ascending colon through the descending colon. Cecum measures up to 8.8 cm. Sigmoid colon is normal caliber with numerous diverticula. No signs of diverticulitis. No constipation. PELVIS: APPENDIX: No evidence of acute appendicitis. BLADDER: Unremarkable. REPRODUCTIVE: Unremarkable as visualized. No mass. ABDOMEN and PELVIS: INTRAPERITONEAL SPACE: Unremarkable. No ascites or other fluid collection. No free air. BONES/JOINTS: Unremarkable. No suspicious lytic or blastic abnormality. SOFT TISSUES: Unremarkable. No discrete abdominal or pelvic wall hernia. VASCULATURE: See above. LYMPH NODES: Unremarkable. No enlarged lymph nodes. CT/Abdomen/Pelvis without Cont IMPRESSION: 1. Marked gaseous distention of the ascending colon through the descending colon measuring up to 8.8 cm in the cecum. No obstructing lesion identified. Findings suggestive of pseudoobstruction (Génesis syndrome). 2. Small area of consolidation left lung base posteriorly likely pneumonia. 3. Small left pleural effusion. 4. Sigmoid diverticulosis without diverticulitis. 5. Cholelithiasis. 6. Coronary artery disease. Electronically Signed: Chance Rice MD at 1:34 EDT ,
--- NOTE | 2022-02-11 01:20 | PCM.PN.BLA ---
Progress Note She was examined at the bedside. Patient with some Rales and rhonchi on examination. Patient on 3 L nasal cannula oxygen that has not changed in the last 24 hours Abdomen with metallic sounds. Mild to moderately distended. With left leg below the knee amputation with using Fabrice wrap. Impression Constipation Pneumonia CT of the abdomen and pelvis ordered. Abdomen patient reviewed shows air-fluid levels. A possible [place] syndrome radiologist interpretation. Lasix 20 mg IV push ordered. Antibiotics ordered. Check MRSA nares. Discussed with general surgery, Dr. Long who will see in consult.
[2022-02-11] MEDS: 0.9% Saline Lock 10 ML Syringe IV (01:44)
[2022-02-11] MEDS: Furosemide 40 MG/4 ML Vial 20 MG IV (01:44)
[2022-02-11 04:06] LABS: Probe Check PASS
[2022-02-11 04:07] LABS: M R Staph aureus DNA By PCR POSITIVE (Negative)
[2022-02-11 05:26] LABS: Bedside Glucose 368 mg/dL (74-106)
[2022-02-11] MEDS: Acetaminophen 325 MG Tablet 650 MG PO (06:12)
[2022-02-11] MEDS: Insulin Lispro 100 UNIT/ML INSULN.PEN SC ×4 (06:40→23:50)
[2022-02-11 06:51] LABS: Bedside Glucose 400 mg/dL (74-106)
[2022-02-11] MEDS: Budesonide Respules 0.5 MG/2 ML AMPUL.NEB. INHALATION ×2 (07:05→19:21)
[2022-02-11 07:06] LABS: Absolute Lymphocyte Count 0.48 X10^3/uL (0.83-4.51); Absolute Neutrophil Count 9.4 X10^3/uL (2.0-7.7); Basophil# 0.04 X10^3/uL; Basophil% 0.3 % (0-1); Eosinophil# 0.06 X10^3/uL; Eosinophils% 0.5 % (0-5); Hematocrit 29.2 % (40-54); Hemoglobin 8.7 g/dL (13.0-16.5); Lymphocyte # 0.48 X10^3/ul (0.83-4.51); Lymphocyte % 3.9 % (19-41); Mean Corp Hgb Conc 29.8 g/dL (32-36); Mean Corpuscular Hgb 27.7 pg (27.0-32.0); Monocyte# 2.22 X10^3/uL; NRBC Flagged by Analyzer 0.2 % (0-5); Neutrophil # 9.43 X10^3/uL (2.7-7.7); Neutrophil % 76.4 % (47-70); POSITIVE DIFFERENTIAL YES; Platelet Count 313 K/mm3 (150-450); RBC Distribution Width CV 17.8 % (11.6-14.6); RBC Distribution Width SD 59.4 fl (35.1-43.9); Red Blood Count 3.14 M/mm3 (4.6-6.2); White Blood Count 12.3 K/mm3 (4.4-11.0)
[2022-02-11 07:08] LABS: Differential Indicated SCAN CRITERIA MET
[2022-02-11] MEDS: Midodrine HCl 5 MG Tablet PO (07:35)
[2022-02-11 07:37] LABS: ALB/GLOB Ratio 0.5 RATIO (0.9-2.4); AST(SGOT) 75 U/L (15-37); Alanine Aminotransfer ALT/SGPT 9 U/L (16-61); Albumin, Serum 2.5 g/dL (3.2-5.0); Alkaline Phosphatase 128 U/L (45-117); Anion Gap 15 (5-15); BUN 62 mg/dL (7-18); BUN/Creat Ratio 14.3 RATIO (10-20); Calcium,Total 8.6 mg/dL (8.5-10.1); Chloride 92 mmol/L (98-107); Creatinine, Serum 4.33 mg/dL (0.70-1.30); EST Glomerular Filtration Rate 14 mL/min (>60); Est Glom Filt Rate - Afr Amer 17 mL/min (>60); Estimated Creatinine Clearance 13.38 ml/min; Globulin 4.7 g/dL (2.2-4.2); Glucose 406 mg/dL (74-106); Potassium 4.3 mmol/L (3.5-5.1); Protein, Total 7.2 g/dL (6.4-8.2); Sodium Level 129 mmol/L (136-145)
--- NOTE | 2022-02-11 07:49 | EX.PCM.CON.S ---
Assessment & Plan Assessment/Plan (1) Ileus: PLAN: Patient has CT scan yesterday which showed distended colon only. 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 At this time I do not believe the patient needs an NG tube as his small bowel is nondistended but I would recommend keeping him n.p.o. until he starts passing flatus and being less distended. He may have sips of medications. I will also order him a Dulcolax positive to try to stimulate things from below. If this does not work and he remains distended he may need decompressive colonoscopy. Pradeep Long MD Pager: [facility] [address] [place] [address] Outpatient [place], [address] [place] [address] Office: HPI Consult Data Date of Consult: 02/11/22 HPI Narrative HPI Narrative: DIVYA HUSAIN, is a 77 M who is currently admitted for below the knee amputation. Patient has a possible pneumonia in the left side as well. I was consulted for ileus. Patient developed distention and had a CT scan yesterday evening. [facility] Medical History (Updated 02/11/22 @ 07:[address] Pradeep Long MD) (HFpEF) heart failure with preserved ejection fraction Acute blood loss anemia Acute on chronic respiratory failure with hypoxemia Acute respiratory failure Allergic rhinitis Anemia Anemia Atherosclerosis of coronary artery of [place] heart without angina pectoris Benign localized hyperplasia of prostate Cancer Cardiology follow-up encounter Carpal tunnel syndrome Chronic allergic rhinitis Chronic hypoxemic respiratory failure Chronic kidney disease, stage V requiring chronic dialysis Chronic otitis media Chronic steroid use CKD (chronic kidney disease) stage 4, GFR 15-29 ml/min Constipation COPD (chronic obstructive pulmonary disease) COPD (chronic obstructive pulmonary disease) Depression Diabetes mellitus Dialysis patient Dietary restriction Dry gangrene Elevated troponin Epistaxis ESRD (end stage renal disease) Essential (primary) hypertension Former smoker GI bleed (06/28/19) HFrEF (heart failure with reduced ejection fraction) History of non-ST elevation myocardial infarction (NSTEMI) (02/03/20) History of prostate cancer Hx of cardiovascular stress test Hx of echocardiogram Hyperlipidemia 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 Hyponatremia Incomplete right bundle branch block Insulin pump titration Insulin pump titration 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 Low back pain Mobitz type I Wenckebach atrioventricular block Neuralgia Non-STEMI (non-ST elevated myocardial infarction) Nonallopathic lesion of lumbar region Nonallopathic lesion of rib cage Nonallopathic lesion of sacral region Nonallopathic lesion of thoracic region, not elsewhere classified NSVT (nonsustained ventricular tachycardia) On home oxygen therapy Otalgia Otitis externa Overweight Pain in lower limb Paroxysmal atrial fibrillation (06/2019) Pedal edema Peripheral arterial disease Peripheral vascular insufficiency 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 Preoperative clearance Pulmonary nodule PVD (peripheral vascular disease) Reactive airway disease Serous otitis media Thoracic back pain Thoracic outlet syndrome Type I diabetes mellitus Urethral stricture Vitamin D deficiency Wax in ear Wears dentures Wears glasses Wears hearing aid in both ears Home Medications latanoprost 0.005 % eye drops 1 drp EACH EYE DAILY ml 11/15/17 [History Last Taken 03/25/20 06:00 1 DRP] brimonidine 0.2 % eye drops 1 drp LEFT EYE BID ml 10/01/19 [History Last Taken 05/05/21] timolol 0.5 % eye drops 1 drp EACH EYE DAILY ml 10/01/19 [History Last Taken 03/25/20 06:00 1 DRP] metoprolol succinate 25 mg tablet,extended release 24 hr 12.5 mg PO DAILY #45 tab 08/10/21 [Rx Last Taken Unknown] aspirin 81 mg PO DAILY 08/15/21 [History Last Taken Unknown] isosorbide mononitrate 30 mg tablet,extended release 24 hr 30 mg PO DAILY #90 tab 08/22/21 [Rx Last Taken Unknown] atorvastatin 80 mg tablet 80 mg PO QHS #90 tab 11/08/21 [Rx Last Taken Unknown] clopidogrel 75 mg tablet 75 mg PO DAILY #90 tab 11/08/21 [Rx Last Taken Unknown] albuterol sulfate 90 mcg/actuation aerosol inhaler 2 puff INHALATION Q4H PRN #8.5 g 11/15/21 [Rx Last Taken Unknown] Trelegy Ellipta 1 inh INHALATION DAILY 02/02/22 [History Last Taken Unknown] docusate calcium 240 mg PO BID 02/02/22 [History Last Taken Unknown] insulin lispro [Humalog U-100 Insulin] 150 unit SUBCUT .Q3DAY 02/02/22 [History Last Taken Unknown] lorazepam [Ativan] 0.5 mg PO TID PRN 02/03/22 [History Last Taken Unknown] Allergy/AdvReac Type Severity Reaction Status Date / Time amoxicillin [From Augmentin] Allergy Unknown Unknown Verified 02/02/22 14:03 clavulanic acid Allergy Unknown Unknown Verified 02/02/22 14:03 [From Augmentin] Sulfa (Sulfonamide Allergy Unknown Unknown Verified 02/02/22 14:03 Antibiotics) Family History Sister Diabetes Father Heart disease Surgical History H/O inguinal hernia repair H/O prostate biopsy History of appendectomy History of carpal tunnel surgery of left wrist History of coronary artery stent placement (06/29/19) History of femoropopliteal bypass (01/2021) History of left cataract extraction History of left heart catheterization (02/09/20) Hx of cardiac catheterization Hx of colonoscopy Problem with dialysis access (05/05/21) S/P bilateral foot surgery S/P rotator cuff repair Social History household members: spouse housing: house Smoking Status: Former smoker quit date: 11/12/13 pack-years: 53 how long ago did patient quit smokin years ago second hand exposure: No alcohol intake: never substance use type: does not use caffeine: Yes Type: coffee Number of servings: 1 ROS Constitutional Constitutional: Denies anorexia or fatigue Eyes Eyes: Denies blurry vision ENT HEENT: Denies abnormal hearing Cardiovascular Cardiovascular: Denies chest pain Respiratory/Chest Respiratory/Chest: Reports cough and wheezing Gastrointestinal Gastrointestinal: Reports abdominal pain and bloating; Denies nausea or vomiting Musculoskeletal Musculoskeletal: Denies abnormal gait Integumentary Integumentary: Denies jaundice Psychiatric Psychiatric: Denies anxiety Physical Exam Const alert HEENT normocephalic Eyes PERRL Neck full ROM Resp normal respiratory effort Cardio Rate: regular rate Rhythm: regular rhythm GI soft to palpation and non-tender Inspection: abdominal distention Lab / Micro Data Result Diagrams: 02/11/22 06:36 02/11/22 06:36 Labs: Laboratory Results - last 24 hr 02/10/22 06:33: Magnesium 2.3 02/10/22 11:10: POC Glucose 217 H 02/10/22 16:44: POC Glucose 396 H 02/10/22 21:26: POC Glucose 366 H 02/11/22 02:21: MRSA (PCR) POSITIVE H 02/11/22 05:06: POC Glucose 368 H 02/11/22 06:36: WBC 12.3 H, RBC 3.14 L, Hgb 8.7 L, Hct 29.2 L, MCV 93.0, MCH 27.7, MCHC 29.8 L, RDW Std Deviation 59.4 H, RDW Coeff of Janel 17.8 H, Plt Count 313, MPV 10.0, Immature Gran % (Auto) 0.900, Neut % (Auto) 76.4 H, Lymph % (Auto) 3.9 L, [place]y % (Auto) 18.0 H, Eos % (Auto) 0.5, Baso % (Auto) 0.3, Absolute Neuts (auto) 9.4 H, Absolute Lymphs (auto) 0.48 L, Nucleated RBC % 0.2, Diff Path Review March02/11/22 06:36: Sodium 129 L, Potassium 4.3, Chloride 92 L, Carbon Dioxide 22.0, Anion Gap 15, BUN 62 H, Creatinine 4.33 H, Estim Creat Clear Calc 13.38, Est GFR (MDRD) Af Amer 17 L, Est GFR (MDRD) Non-Af 14 L, BUN/Creatinine Ratio 14.3, Glucose 406 H, Calcium 8.6, Total Bilirubin 0.80, AST 75 H, ALT 9 L, Alkaline Phosphatase 128 H, Total Protein 7.2, Albumin 2.5 L, Globulin 4.7 H, Albumin/Globulin Ratio 0.5 L 02/11/22 06:38: POC Glucose 400 H Micro: Microbiology 02/06/22 13:45 Fluid - Thoracentesis Fluid Gram Stain - Final 02/06/22 13:45 Fluid - Thoracentesis Fluid Body Fluid Culture - Final Culture exhibits no growth. 02/06/22 13:45 Fluid - Thoracentesis Fluid Anaerobic Culture - Final No growth in 5 days. ABG Data ABG results: ABG 02/10/22 21:40 Specimen Type ART Sample Site R Brach pH 7.37 Bicarbonate Actual 26.1 H Total CO2 28 Base Excess 1 O2 Saturation 96 ABG pCO2 45.2 H ABG pO2 85 Price Test Negative O2 Delivery Device Cannula Liter Flow 3.0 Radiology Impression Chest X-Ray 02/10/22 18:55 IMPRESSION: Unchanged bilateral interstitial opacities may represent edema and/or infection. Questionable small left pleural effusion versus pleural thickening. Electronically Signed: Morris Cervantes MD at 19:09 EDT , Chest X-Ray 02/10/22 23:10 IMPRESSION: Mild interstitial prominence again noted bilaterally. Previously noted pleural and parenchymal disease in the left lung base has resolved. Electronically Signed: Chance Rice MD at 23:49 EDT , KUB X-Ray 02/10/22 23:10 IMPRESSION: Large bowel is very distended with gas. Electronically Signed: Chance Rice MD at 23:51 EDT , Abdomen/Pelvis CT 02/11/22 00:22 IMPRESSION: 1. Marked gaseous distention of the ascending colon through the descending colon measuring up to 8.8 cm in the cecum. No obstructing lesion identified. Findings suggestive of pseudoobstruction (Gay syndrome). 2. Small area of consolidation left lung base posteriorly likely pneumonia. 3. Small left pleural effusion. 4. Sigmoid diverticulosis without diverticulitis. 5. Cholelithiasis. 6. Coronary artery disease. Electronically Signed: Chance Rice MD at 1:34 EDT , ADDENDUM: 02/11/22 0151 IMPRESSION: 1. Marked gaseous distention of the ascending colon through the descending colon measuring up to 8.8 cm in the cecum. No obstructing lesion identified. Findings suggestive of pseudoobstruction (Gay syndrome). 2. Small area of consolidation left lung base posteriorly likely pneumonia. 3. Small left pleural effusion. 4. Sigmoid diverticulosis without diverticulitis. 5. Cholelithiasis. 6. Coronary artery disease. N.B. : The above Results were Read Back by Chance Rice MD to ALLEY CHATMAN MD, and understanding confirmed on 02/11/2022 01:44:12 (ET). Electronically Signed: Chance Rice MD at 1:34 EDT ,
[2022-02-11] MEDS: Bisacodyl 10 MG Suppository RC (08:01)
[2022-02-11] MEDS: Timolol 0.5% 5ML OPTH.BTL 1 DRP OPHTHALMIC (08:53)
[2022-02-11] MEDS: BRIMONIDINE 0.2% 5ML BOTTLE 1 DRP LEFT EYE ×2 (08:54→21:38)
[2022-02-11] MEDS: Aspirin E.C. 81 MG Tablet PO (08:55)
[2022-02-11] MEDS: Senna/Docusate Sodium 1 Tablet 2 TABLET PO ×2 (08:55→21:38)
[2022-02-11] MEDS: guaiFENesin 1,200 MG Tablet 1200 MG PO ×2 (08:55→21:39)
[2022-02-11] MEDS: Clopidogrel Bisulfate 75 MG Tablet PO (08:55)
--- NOTE | 2022-02-11 09:47 | PCM.PN.ORT ---
Subjective Subjective Patient seen and examined. Patient started on antibiotics for suspected pneumonia overnight. He was also made n.p.o. 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 Family at bedside this morning. He states his mentation has been improved today, however he remains significantly lethargic. Patient awakens to verbal stimulus and answers questions appropriately. He reports no pain at rest in his left lower extremity. He reports some soreness with movement. Denies fevers, chills, nausea vomiting, chest pain or shortness of breath. Continues to complain of chest congestion. Objective Data Objective Data Vital Signs: Vital Signs Temp Pulse Resp BP Pulse Ox 97.7 F L 87 12 109/49 L 100 02/11/22 08:52 02/11/22 08:52 02/11/22 08:52 02/11/22 08:52 02/11/22 08:52 Oxygen Flow Rate (L/min) [4] 4 Oxygen Flow Rate (L/min) [3] 4 Oxygen Flow Rate (L/min) [2] 4 Oxygen Flow Rate (L/min) 3 Oxygen Delivery Method [3] Nasal Cannula Oxygen Delivery Method [2] Nasal Cannula Oxygen Delivery Method [1 ( Room Air Initial Baseline)] Oxygen Delivery Method Nasal Cannula Weight: 158 lb 4.67 oz Body Mass Index (BMI) 23.8 Intake & Output: Intake and Output for Last 24 Hours 02/09/22 02/10/22 02/11/22 23:59 23:59 23:59 Intake Total 1189.17 / 1389.17 950 / 1000 355 / 355 Output Total 0 / 0 0 / 0 0 / 0 Balance 1189.17 / 1389.17 950 / 1000 355 / 355 Lab / Micro Data Result Diagrams: 02/11/22 06:36 02/11/22 06:36 Labs: Laboratory Results - last 24 hr 02/10/22 06:33: Magnesium 2.3 02/10/22 11:10: POC Glucose 217 H 02/10/22 16:44: POC Glucose 396 H 02/10/22 21:26: POC Glucose 366 H 02/11/22 02:21: MRSA (PCR) POSITIVE H 02/11/22 05:06: POC Glucose 368 H 02/11/22 06:36: WBC 12.3 H, RBC 3.14 L, Hgb 8.7 L, Hct 29.2 L, MCV 93.0, MCH 27.7, MCHC 29.8 L, RDW Std Deviation 59.4 H, RDW Coeff of Janel 17.8 H, Plt Count 313, MPV 10.0, Immature Gran % (Auto) 0.900, Neut % (Auto) 76.4 H, Lymph % (Auto) 3.9 L, [place] % (Auto) 18.0 H, Eos % (Auto) 0.5, Baso % (Auto) 0.3, Absolute Neuts (auto) 9.4 H, Absolute Lymphs (auto) 0.48 L, Nucleated RBC % 0.2, Diff Path Review March02/11/22 06:36: Sodium 129 L, Potassium 4.3, Chloride 92 L, Carbon Dioxide 22.0, Anion Gap 15, BUN 62 H, Creatinine 4.33 H, Estim Creat Clear Calc 13.38, Est GFR (MDRD) Af Amer 17 L, Est GFR (MDRD) Non-Af 14 L, BUN/Creatinine Ratio 14.3, Glucose 406 H, Calcium 8.6, Total Bilirubin 0.80, AST 75 H, ALT 9 L, Alkaline Phosphatase 128 H, Total Protein 7.2, Albumin 2.5 L, Globulin 4.7 H, Albumin/Globulin Ratio 0.5 L 02/11/22 06:38: POC Glucose 400 H Micro: Microbiology 02/06/22 13:45 Fluid - Thoracentesis Fluid Gram Stain - Final 02/06/22 13:45 Fluid - Thoracentesis Fluid Body Fluid Culture - Final Culture exhibits no growth. 02/06/22 13:45 Fluid - Thoracentesis Fluid Anaerobic Culture - Final No growth in 5 days. ABG Data ABG results: ABG 02/10/22 21:40 Specimen Type ART Sample Site R Brach pH 7.37 Bicarbonate Actual 26.1 H Total CO2 28 Base Excess 1 O2 Saturation 96 ABG pCO2 45.2 H ABG pO2 85 Price Test Negative O2 Delivery Device Cannula Liter Flow 3.0 Radiography Diagnostic Testing: Radiology Impression Chest X-Ray 02/10/22 18:55 IMPRESSION: Unchanged bilateral interstitial opacities may represent edema and/or infection. Questionable small left pleural effusion versus pleural thickening. Electronically Signed: Morris Cervantes MD at 19:09 EDT , Chest X-Ray 02/10/22 23:10 IMPRESSION: Mild interstitial prominence again noted bilaterally. Previously noted pleural and parenchymal disease in the left lung base has resolved. Electronically Signed: Chance Rice MD at 23:49 EDT , KUB X-Ray 02/10/22 23:10 IMPRESSION: Large bowel is very distended with gas. Electronically Signed: Chance Rice MD at 23:51 EDT , Abdomen/Pelvis CT 02/11/22 00:22 IMPRESSION: 1. Marked gaseous distention of the ascending colon through the descending colon measuring up to 8.8 cm in the cecum. No obstructing lesion identified. Findings suggestive of pseudoobstruction ([place] syndrome). 2. Small area of consolidation left lung base posteriorly likely pneumonia. 3. Small left pleural effusion. 4. Sigmoid diverticulosis without diverticulitis. 5. Cholelithiasis. 6. Coronary artery disease. Electronically Signed: Chance Rice MD at 1:34 EDT , ADDENDUM: 02/11/22 0151 IMPRESSION: 1. Marked gaseous distention of the ascending colon through the descending colon measuring up to 8.8 cm in the cecum. No obstructing lesion identified. Findings suggestive of pseudoobstruction ([place] syndrome). 2. Small area of consolidation left lung base posteriorly likely pneumonia. 3. Small left pleural effusion. 4. Sigmoid diverticulosis without diverticulitis. 5. Cholelithiasis. 6. Coronary artery disease. N.B. : The above Results were Read Back by Chance Rice MD to ALLEY CHATMAN MD, and understanding confirmed on 02/11/2022 01:44:12 (ET). Electronically Signed: Chance Rice MD at 1:34 EDT , Physical Exam Narrative General-lethargic, awakens to verbal stimulus and oriented x3, NAD Left lower extremity-BKA stump incisional dressing clean, dry, intact. Sensation intact throughout. Active flexion and extension of the knee intact. Femoral pulses 2+. Assessment & Plan Assessment/Plan (1) Dry gangrene: PLAN: POD#2 s/p left BKA - Pain control -narcotic pain medication held at this point. Patient continues lethargy today, appears slightly improved. - Medicine following for medical management - PT/OT - DVT PPX -aspirin Plavix restarted - RRD to be applied today. Continue dry sterile dressing changes with RRD daily - I will continue to follow peripherally, please do not hesitate to call if any questions or concerns arise. -Okay to shower on postoperative day #4. No tub soaks. Follow-up with me in 2 weeks postoperatively. - Case management - D/C planning
[2022-02-11 11:41] LABS: Bedside Glucose 291 mg/dL (74-106)
--- NOTE | 2022-02-11 12:43 | CM.ED ---
Per Feliciano, problem manager for PCU, who stated that patient will be here through the weekend. RN VALARIE confirmed patient will be here through the weekend. [place] KUNZ
--- NOTE | 2022-02-11 15:03 | PN.HOSP_ITS ---
Subjective Subjective Follow-up on pleural effusion/left foot gangrene: Patient was seen and examined. Overnight, he appeared to have respiratory issues. Repeat chest x-ray showed questionable pneumonia. Patient was also found to have abdominal distention. CT of the abdomen and pelvis showed marked gaseous distention of the ascending colon through the descending colon measuring 8.8 cm in the cecum. No obstructive lesions found. 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 General surgery was consulted, Objective Data Objective Data Vital Signs: Vital Signs Temp Pulse Resp BP Pulse Ox 97.6 F L 86 14 117/52 L 98 02/11/22 14:00 02/11/22 14:00 02/11/22 14:00 02/11/22 14:00 02/11/22 14:00 Oxygen Flow Rate (L/min) [4] 4 Oxygen Flow Rate (L/min) [3] 4 Oxygen Flow Rate (L/min) [2] 4 Oxygen Flow Rate (L/min) 3 Oxygen Delivery Method [3] Nasal Cannula Oxygen Delivery Method [2] Nasal Cannula Oxygen Delivery Method [1 ( Room Air Initial Baseline)] Oxygen Delivery Method Nasal Cannula Weight: 71.8 kg Body Mass Index (BMI) 23.8 Intake & Output: Intake and Output for Last 24 Hours 02/09/22 02/10/22 02/11/22 23:59 23:59 23:59 Intake Total 1189.17 / 1389.17 950 / 1000 355 / 355 Output Total 0 / 0 0 / 0 0 / 0 Balance 1189.17 / 1389.17 950 / 1000 355 / 355 Lab / Micro Data Result Diagrams: 02/11/22 06:36 02/11/22 06:36 Labs: Laboratory Results - last 24 hr 02/10/22 06:33: Magnesium 2.3 02/10/22 16:44: POC Glucose 396 H 02/10/22 21:26: POC Glucose 366 H 02/11/22 02:21: MRSA (PCR) POSITIVE H 02/11/22 05:06: POC Glucose 368 H 02/11/22 06:36: WBC 12.3 H, RBC 3.14 L, Hgb 8.7 L, Hct 29.2 L, MCV 93.0, MCH 27.7, MCHC 29.8 L, RDW Std Deviation 59.4 H, RDW Coeff of Janel 17.8 H, Plt Count 313, MPV 10.0, Immature Gran % (Auto) 0.900, Neut % (Auto) 76.4 H, Lymph % (Auto) 3.9 L, [place] % (Auto) 18.0 H, Eos % (Auto) 0.5, Baso % (Auto) 0.3, Absolute Neuts (auto) 9.4 H, Absolute Lymphs (auto) 0.48 L, Nucleated RBC % 0.2, Diff Path Review March02/11/22 06:36: Sodium 129 L, Potassium 4.3, Chloride 92 L, Carbon Dioxide 22.0, Anion Gap 15, BUN 62 H, Creatinine 4.33 H, Estim Creat Clear Calc 13.38, Est GFR (MDRD) Af Amer 17 L, Est GFR (MDRD) Non-Af 14 L, BUN/Creatinine Ratio 14.3, Glucose 406 H, Calcium 8.6, Total Bilirubin 0.80, AST 75 H, ALT 9 L, Alkaline Phosphatase 128 H, Total Protein 7.2, Albumin 2.5 L, Globulin 4.7 H, A lbumin/Globulin Ratio 0.5 L 02/11/22 06:38: POC Glucose 400 H 02/11/22 11:29: POC Glucose 291 H Micro: Microbiology 02/06/22 13:45 Fluid - Thoracentesis Fluid Gram Stain - Final 02/06/22 13:45 Fluid - Thoracentesis Fluid Body Fluid Culture - Final Culture exhibits no growth. 02/06/22 13:45 Fluid - Thoracentesis Fluid Anaerobic Culture - Final No growth in 5 days. ABG Data ABG results: ABG 02/10/22 21:40 Specimen Type ART Sample Site R Brach pH 7.37 Bicarbonate Actual 26.1 H Total CO2 28 Base Excess 1 O2 Saturation 96 ABG pCO2 45.2 H ABG pO2 85 Price Test Negative O2 Delivery Device Cannula Liter Flow 3.0 Radiography Diagnostic Testing: Radiology Impression Chest X-Ray 02/10/22 18:55 IMPRESSION: Unchanged bilateral interstitial opacities may represent edema and/or infection. Questionable small left pleural effusion versus pleural thickening. Electronically Signed: Morris Cervantes MD at 19:09 EDT , Chest X-Ray 02/10/22 23:10 IMPRESSION: Mild interstitial prominence again noted bilaterally. Previously noted pleural and parenchymal disease in the left lung base has resolved. Electronically Signed: Chance Rice MD at 23:49 EDT , KUB X-Ray 02/10/22 23:10 IMPRESSION: Large bowel is very distended with gas. Electronically Signed: Chance Rice MD at 23:51 EDT , Abdomen/Pelvis CT 02/11/22 00:22 IMPRESSION: 1. Marked gaseous distention of the ascending colon through the descending colon measuring up to 8.8 cm in the cecum. No obstructing lesion identified. Findings suggestive of pseudoobstruction (Gregory syndrome). 2. Small area of consolidation left lung base posteriorly likely pneumonia. 3. Small left pleural effusion. 4. Sigmoid diverticulosis without diverticulitis. 5. Cholelithiasis. 6. Coronary artery disease. Electronically Signed: Chance Rice MD at 1:34 EDT , ADDENDUM: 02/11/22 0151 IMPRESSION: 1. Marked gaseous distention of the ascending colon through the descending colon measuring up to 8.8 cm in the cecum. No obstructing lesion identified. Findings suggestive of pseudoobstruction (Gregory syndrome). 2. Small area of consolidation left lung base posteriorly likely pneumonia. 3. Small left pleural effusion. 4. Sigmoid diverticulosis without diverticulitis. 5. Cholelithiasis. 6. Coronary artery disease. N.B. : The above Results were Read Back by Chance Rice MD to ALLEY CHATMAN MD, and understanding confirmed on 02/11/2022 01:44:12 (ET). Electronically Signed: Chance Rice MD at 1:34 EDT , Physical Exam Narrative Physical Exam: Gen: Comfortable, not pale, not jaundiced CVS:HS I +II, regular, no murmurs RESP: Diminished at lung bases GI: Abdomen is distended, BS present and normal, soft, nontender, no palpable o rgans EXT: Left BKA, Fabrice wraps to the wound Assessment & Plan Assessment/Plan (1) Dry gangrene: (2) Dyspnea: QUALIFIERS: Dyspnea type: unspecified Qualified Code(s): R06.00 - Dyspnea, unspecified PLAN: 1. Acute on chronic combined heart failure, EF 40%, stage I diastolic dysfunction 2. Left large transudative pleural effusion, status post thoracocentesis 3. ESRD on hemodialysis 4. Right upper lobe lung mass 5. Postop day #2 status post left BKA 6. Chronic hypoxic respiratory failure/COPD 7. Type II DM 8. CAD status post stent 9. Paroxysmal atrial fibrillation 10. 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 status Continue on IV antibiotics?cefepime and azithromycin Charges/Coding Visit Charges Inpatient E&M: 12804 Subs Hosp L2
[2022-02-11 17:16] LABS: Allen Test Positive; Base Excess -5 mmol/L (-2 to +2); Bicarbonate 22.1 mmol/L (22-26); Blood Gas Specimen Type ART; O2 Delivery Device Cannula; PO2 129 mmHG (75-100); SITE R Brach; SO2 99 % (95-99); Total Carbon Dioxide 24 mmol/L; pCO2 46.3 mmHg (35-45); pH 7.29 (7.35-7.45)
[2022-02-11 17:31] LABS: Bedside Glucose 342 mg/dL (74-106)
--- NOTE | 2022-02-11 17:58 | PCM.PN.REN ---
Subjective Subjective Following for ESRD. The patient complains of shortness of breath. He complains of thirst as well. Pain is controlled. There is no nausea or vomiting. Objective Data Objective Data Vital Signs: Vital Signs Temp Pulse Resp BP Pulse Ox 97.6 F L 98 16 121/52 H 100 02/11/22 16:54 02/11/22 17:05 02/11/22 17:05 02/11/22 16:54 02/11/22 16:54 Oxygen Flow Rate (L/min) [4] 4 Oxygen Flow Rate (L/min) [3] 4 Oxygen Flow Rate (L/min) [2] 4 Oxygen Flow Rate (L/min) 3 Oxygen Delivery Method [3] Nasal Cannula Oxygen Delivery Method [2] Nasal Cannula Oxygen Delivery Method [1 ( Room Air Initial Baseline)] Oxygen Delivery Method Nasal Cannula Weight: 71.8 kg Body Mass Index (BMI) 23.8 Intake & Output: Intake and Output for Last 24 Hours 02/09/22 02/10/22 02/11/22 23:59 23:59 23:59 Intake Total 1189.17 / 1389.17 950 / 1000 355 / 355 Output Total 0 / 0 0 / 0 0 / 0 Balance 1189.17 / 1389.17 950 / 1000 355 / 355 Lab / Micro Data Result Diagrams: 02/11/22 06:36 02/11/22 06:36 Labs: Laboratory Results - last 24 hr 02/10/22 06:33: Magnesium 2.3 02/10/22 16:44: POC Glucose 396 H 02/10/22 21:26: POC Glucose 366 H 02/11/22 02:21: MRSA (PCR) POSITIVE H 02/11/22 05:06: POC Glucose 368 H 02/11/22 06:36: WBC 12.3 H, RBC 3.14 L, Hgb 8.7 L, Hct 29.2 L, MCV 93.0, MCH 27.7, MCHC 29.8 L, RDW Std Deviation 59.4 H, RDW Coeff of Janel 17.8 H, Plt Count 313, MPV 10.0, Immature Gran % (Auto) 0.900, Neut % (Auto) 76.4 H, Lymph % (Auto) 3.9 L, [place] % (Auto) 18.0 H, Eos % (Auto) 0.5, Baso % (Auto) 0.3, Absolute Neuts (auto) 9.4 H, Absolute Lymphs (auto) 0.48 L, Nucleated RBC % 0.2, Diff Path Review March02/11/22 06:36: Sodium 129 L, Potassium 4.3, Chloride 92 L, Carbon Dioxide 22.0, Anion Gap 15, BUN 62 H, Creatinine 4.33 H, Estim Creat Clear Calc 13.38, Est GFR (MDRD) Af Amer 17 L, Est GFR (MDRD) Non-Af 14 L, BUN/Creatinine Ratio 14.3, Glucose 406 H, Calcium 8.6, Total Bilirubin 0.80, AST 75 H, ALT 9 L, Alkaline Phosphatase 128 H, Total Protein 7.2, Albumin 2.5 L, Globulin 4.7 H, Albumin/Globulin Ratio 0.5 L 02/11/22 06:38: POC Glucose 400 H 02/11/22 11:29: POC Glucose 291 H 02/11/22 17:00: POC Glucose 342 H Micro: Microbiology 02/06/22 13:45 Fluid - Thoracentesis Fluid Gram Stain - Final 02/06/22 13:45 Fluid - Thoracentesis Fluid Body Fluid Culture - Final Culture exhibits no growth. 02/06/22 13:45 Fluid - Thoracentesis Fluid Anaerobic Culture - Final No growth in 5 days. ABG Data ABG results: ABG 02/10/22 02/11/22 21:40 17:12 Specimen Type ART ART Sample Site R Brach R Brach pH 7.37 7.29 L Bicarbonate Actual 26.1 H 22.1 Total CO2 28 24 Base Excess 1 -5 L O2 Saturation 96 99 ABG pCO2 45.2 H 46.3 H ABG pO2 85 129 H Price Test Negative Positive O2 Delivery Device Cannula Cannula Liter Flow 3.0 4.0 Radiography Diagnostic Testing: Radiology Impression Chest X-Ray 02/10/22 18:55 IMPRESSION: Unchanged bilateral interstitial opacities may represent edema and/or infection. Questionable small left pleural effusion versus pleural thickening. Electronically Signed: Morris Cervantes MD at 19:09 EDT , Chest X-Ray 02/10/22 23:10 IMPRESSION: Mild interstitial prominence again noted bilaterally. Previously noted pleural and parenchymal disease in the left lung base has resolved. Electronically Signed: Chance Rice MD at 23:49 EDT , KUB X-Ray 02/10/22 23:10 IMPRESSION: Large bowel is very distended with gas. Electronically Signed: Chance Rice MD at 23:51 EDT , Abdomen/Pelvis CT 02/11/22 00:22 IMPRESSION: 1. Marked gaseous distention of the ascending colon through the descending colon measuring up to 8.8 cm in the cecum. No obstructing lesion identified. 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 2. Small area of consolidation left lung base posteriorly likely pneumonia. 3. Small left pleural effusion. 4. Sigmoid diverticulosis without diverticulitis. 5. Cholelithiasis. 6. Coronary artery disease. Electronically Signed: Chance Rice MD at 1:34 EDT , ADDENDUM: 02/11/22 0151 IMPRESSION: 1. Marked gaseous distention of the ascending colon through the descending colon measuring up to 8.8 cm in the cecum. No obstructing lesion identified. 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 2. Small area of consolidation left lung base posteriorly likely pneumonia. 3. Small left pleural effusion. 4. Sigmoid diverticulosis without diverticulitis. 5. Cholelithiasis. 6. Coronary artery disease. N.B. : The above Results were Read Back by Chance Rice MD to ALLEY CHATMAN MD, and understanding confirmed on 02/11/2022 01:44:12 (ET). Electronically Signed: Chance Rice MD at 1:34 EDT , Physical Exam Narrative General: Alert to name and place, NAD HEENT: Normocephalic, atraumatic. Mucous membrane is moist. Neck: Supple, no JVD. Heart: Normal S1, S2. There is a 3/6 systolic murmur. No rubs. Lungs: Coarse breath sound at bases bilaterally. Abdomen: Normal bowel sound, soft, nontender Extremity: No clubbing or cyanosis. no edema right leg. Status post left BKA AVF access for HD Assessment & Plan Assessment/Plan (1) ESRD (end stage renal disease) on dialysis: PLAN: -The patient usually dialyzes on MWF schedule at [facility] [place]. -He was dialyzed yesterday. No need for dialysis today. -The patient does not appear to be volume overloaded today. -Patient will have a new lower dry weight by time of discharge to account for left leg amputation. (2) Anemia: PLAN: -The patient receives long-acting LAUREL at kidney center. Last received 02/03. -Hemoglobin is low but stable. We will continue to monitor. (3) Peripheral vascular occlusive disease: PLAN: -s/p Left BKA 02/09. (4) Dyspnea: PLAN: -Likely multifactorial. The patient has COPD and recent Covid 19 infection. The patient also has known chronic left pleural effusion. -There is likely some component of volume overload with his left pleural effusion. However, patient was already ultrafiltered yesterday. No need for dialysis today. - UF as patient and BP tolerates. - d/c plans in progress, possibly to [facility] over the weekend
[2022-02-11] MEDS: Insulin Glargine-YFGN 100 UNIT/ML Pen 10 UNIT SC (21:37)
[2022-02-11] MEDS: Atorvastatin Calcium 80 MG Tablet PO (21:39)
[2022-02-11] MEDS: Latanoprost 0.005% 1 Bottle 1 DRP OPHTHALMIC (21:40)
[2022-02-11] MEDS: Acetaminophen 500 MG Tablet 1000 MG PO (21:42)
[2022-02-11 23:56] LABS: Bedside Glucose 382 mg/dL (74-106)
[2022-02-12] VITALS (23 sets, daily range): BP systolic 90–113; BP diastolic 39–62; PULSE 68–95; RESP 12–18; TEMP 36.1–36.8; O2SAT 97–100
[2022-02-12 00:20] LABS: Base Excess -10 mmol/L (-2 to +2); Bicarbonate 16.7 mmol/L (22-26); Blood Gas Specimen Type ART; FI02 40; O2 Delivery Device BiPAP; PO2 141 mmHG (75-100); SITE R Brach; SO2 99 % (95-99); Total Carbon Dioxide 18 mmol/L; pCO2 36.4 mmHg (35-45); pH 7.27 (7.35-7.45)
[2022-02-12 01:16] LABS: Bedside Glucose 354 mg/dL (74-106)
[2022-02-12] MEDS: Insulin Lispro 100 UNIT/ML INSULN.PEN SC ×4 (05:46→23:47)
--- NOTE | 2022-02-12 05:55 | RAD_ITS ---
STUDY: X-RAY - ABDOMEN/PELVIS REASON FOR EXAM: Male, 77 years old. ileus TECHNIQUE: Two AP supine views of the abdomen and pelvis. COMPARISON: Previous radiographs of 02/10/2022. FINDINGS: The colon is seen again noted to be elongated and redundant. The colon contains a moderate amount of gas, including gas extending into the rectum. The amount of colonic gas shows mild-moderate decrease as compared with the prior study. No pneumatosis or portal venous gas is identified. No distended small bowel loops are seen. No organomegaly. Lumbar degenerative changes again noted. CONCLUSIONS: Mild-moderate interval decrease in amount of gas within the colon since the study of 02/10/2022. Electronically Signed: Gregg Lynne MD at 6:00 EDT , RAD/Abdomen Single View (Portable)
[2022-02-12 06:01] LABS: Bedside Glucose 351 mg/dL (74-106)
[2022-02-12] MEDS: Ipratropium/Albuterol Sulfate 3 ML AMPUL.NEB INHALATION ×5 (06:05→23:35)
[2022-02-12 06:47] LABS: Absolute Lymphocyte Count 0.37 X10^3/uL (0.83-4.51); Absolute Neutrophil Count 5.8 X10^3/uL (2.0-7.7); Basophil# 0.02 X10^3/uL; Basophil% 0.3 % (0-1); Eosinophil# 0.01 X10^3/uL; Eosinophils% 0.1 % (0-5); Hematocrit 29.3 % (40-54); Hemoglobin 8.7 g/dL (13.0-16.5); Lymphocyte # 0.37 X10^3/ul (0.83-4.51); Lymphocyte % 4.9 % (19-41); Mean Corp Hgb Conc 29.7 g/dL (32-36); Mean Corpuscular Hgb 27.5 pg (27.0-32.0); Mean Corpuscular Volume 92.7 fL (80-94); Mean Platelet Vol. 10.2 fl (6.2-12.0); Monocyte# 1.33 X10^3/uL; Monocyte% 17.5 % (0-10); NRBC Flagged by Analyzer 0.4 % (0-5); Neutrophil # 5.77 X10^3/uL (2.7-7.7); Neutrophil % 76.1 % (47-70); POSITIVE DIFFERENTIAL YES; POSITIVE MORPHOLOGY YES; Platelet Count 251 K/mm3 (150-450); RBC Distribution Width CV 17.6 % (11.6-14.6); RBC Distribution Width SD 59.7 fl (35.1-43.9); Red Blood Count 3.16 M/mm3 (4.6-6.2); White Blood Count 7.6 K/mm3 (4.4-11.0)
[2022-02-12 07:04] LABS: Differential Indicated SCAN CRITERIA MET
[2022-02-12 07:26] LABS: ALB/GLOB Ratio 0.5 RATIO (0.9-2.4); AST(SGOT) 76 U/L (15-37); Alanine Aminotransfer ALT/SGPT 7 U/L (16-61); Albumin, Serum 2.3 g/dL (3.2-5.0); Alkaline Phosphatase 116 U/L (45-117); Anion Gap 19 (5-15); BUN 87 mg/dL (7-18); BUN/Creat Ratio 15.2 RATIO (10-20); Calcium,Total 8.7 mg/dL (8.5-10.1); Chloride 91 mmol/L (98-107); Creatinine, Serum 5.72 mg/dL (0.70-1.30); EST Glomerular Filtration Rate 10 mL/min (>60); Est Glom Filt Rate - Afr Amer 12 mL/min (>60); Estimated Creatinine Clearance 10.13 ml/min; Globulin 4.6 g/dL (2.2-4.2); Glucose 392 mg/dL (74-106); Protein, Total 6.9 g/dL (6.4-8.2); Sodium Level 127 mmol/L (136-145)
[2022-02-12 07:27] LABS: Differential Comment SCANNED
[2022-02-12] MEDS: Midodrine HCl 5 MG Tablet PO ×3 (08:46→17:12)
--- NOTE | 2022-02-12 09:08 | PN.SURG_ITS ---
Subjective Subjective After suppository yesterday the patient did have a bowel movement. He had another bowel movement later in the day. According to nursing the patient also had some flatus. Objective Data Objective Data Vital Signs: Vital Signs Temp Pulse Resp BP Pulse Ox 98.1 F 94 18 113/51 L 100 02/12/22 08:00 02/12/22 08:00 02/12/22 08:00 02/12/22 08:00 02/12/22 08:00 Oxygen Flow Rate (L/min) [4] 4 Oxygen Flow Rate (L/min) [3] 4 Oxygen Flow Rate (L/min) [2] 4 Oxygen Flow Rate (L/min) 3 Oxygen Delivery Method [3] Nasal Cannula Oxygen Delivery Method [2] Nasal Cannula Oxygen Delivery Method [1 ( Room Air Initial Baseline)] Oxygen Delivery Method Nasal Cannula Weight: 161 lb 6.054 oz Body Mass Index (BMI) 23.8 Intake & Output: Intake and Output for Last 24 Hours 02/10/22 02/11/22 02/12/22 23:59 23:59 23:59 Intake Total 950 / 1000 1020 / 1020 0 / 0 Output Total 0 / 0 0 / 0 Balance 950 / 1000 1020 / 1020 0 / 0 Lab / Micro Data Result Diagrams: 02/12/22 06:14 02/12/22 06:14 Labs: Laboratory Results - last 24 hr 02/11/22 11:29: POC Glucose 291 H 02/11/22 17:00: POC Glucose 342 H 02/11/22 21:36: POC Glucose 354 H 02/11/22 23:48: POC Glucose 382 H 02/12/22 05:41: POC Glucose 351 H 02/12/22 06:14: WBC 7.6, RBC 3.16 L, Hgb 8.7 L, Hct 29.3 L, MCV 92.7, MCH 27.5, MCHC 29.7 L, RDW Std Deviation 59.7 H, RDW Coeff of Janel 17.6 H, Plt Count 251, MPV 10.2, Immature Gran % (Auto) 1.100 H, Neut % (Auto) 76.1 H, Lymph % (Auto) 4.9 L, [place] % (Auto) 17.5 H, Eos % (Auto) 0.1, Baso % (Auto) 0.3, Absolute Neuts (auto) 5.8, Absolute Lymphs (auto) 0.37 L, Nucleated RBC % 0.4, Differential Comment SCANNED 02/12/22 06:14: Sodium 127 L, Potassium 5.0, Chloride 91 L, Carbon Dioxide 17.0 L, Anion Gap 19 H, BUN 87 H, Creatinine 5.72 H, Estim Creat Clear Calc 10.13, Est GFR (MDRD) Af Amer 12 L, Est GFR (MDRD) Non-Af 10 L, BUN/Creatinine Ratio 15.2, Glucose 392 H, Calcium 8.7, Total Bilirubin 1.10 H, AST 76 H, ALT 7 L, Alkaline Phosphatase 116, Total Protein 6.9, Albumin 2.3 L, Globulin 4.6 H, Albumin/Globulin Ratio 0.5 L Micro: Microbiology 02/06/22 13:45 Fluid - Thoracentesis Fluid Gram Stain - Final 02/06/22 13:45 Fluid - Thoracentesis Fluid Body Fluid Culture - Final Culture exhibits no growth. 02/06/22 13:45 Fluid - Thoracentesis Fluid Anaerobic Culture - Final No growth in 5 days. ABG Data ABG results: ABG 02/11/22 02/12/22 17:12 00:13 Specimen Type ART ART Sample Site R Brach R Brach pH 7.29 L 7.27 L Bicarbonate Actual 22.1 16.7 L Total CO2 24 18 Base Excess -5 L -10 L O2 Saturation 99 99 O2 % 40 ABG pCO2 46.3 H 36.4 ABG pO2 129 H 141 H Price Test Positive N/A O2 Delivery Device Cannula BiPAP Liter Flow 4.0 Clinical Comments 13*7 bipap Radiography Diagnostic Testing: Radiology Impression KUB X-Ray 02/12/22 05:55 Physical Exam Const oriented x3 and no apparent distress Resp normal respiratory effort Cardio regular rate and regular rhythm GI soft to palpation Inspection: Negative for abdominal distention Assessment & Plan Assessment/Plan (1) Ileus: PLAN: The patient's abdomen is much less distended today. He did respond to suppository yesterday and is started passing flatus. I will start a clear liquid diet today and repeat Dulcolax suppository. Repeat KUB in the morning and advance diet tomorrow if doing well. Pradeep Long MD Pager: [facility] [address] [place] [address], [address] [place] [address] Office:
--- NOTE | 2022-02-12 10:39 | PCM.PN.HOSP ---
Subjective Subjective Follow-up on pleural effusion/status post left BKA: Patient was seen and examined. He is a lot more awake. He was started on BiPAP last night for respiratory acidosis. He has had multiple bowel movements and passing flatus. Denies any new complains. Objective Data Objective Data Vital Signs: Vital Signs Temp Pulse Resp BP Pulse Ox 98.1 F 94 18 113/51 L 100 02/12/22 08:00 02/12/22 08:00 02/12/22 08:00 02/12/22 08:00 02/12/22 08:00 Oxygen Flow Rate (L/min) [4] 4 Oxygen Flow Rate (L/min) [3] 4 Oxygen Flow Rate (L/min) [2] 4 Oxygen Flow Rate (L/min) 3 Oxygen Delivery Method [3] Nasal Cannula Oxygen Delivery Method [2] Nasal Cannula Oxygen Delivery Method [1 ( Room Air Initial Baseline)] Oxygen Delivery Method Nasal Cannula Weight: 73.2 kg Body Mass Index (BMI) 23.8 Intake & Output: Intake and Output for Last 24 Hours 02/10/22 02/11/22 02/12/22 23:59 23:59 23:59 Intake Total 950 / 1000 1020 / 1020 0 / 0 Output Total 0 / 0 0 / 0 Balance 950 / 1000 1020 / 1020 0 / 0 Lab / Micro Data Result Diagrams: 02/12/22 06:14 02/12/22 06:14 Labs: Laboratory Results - last 24 hr 02/11/22 11:29: POC Glucose 291 H 02/11/22 17:00: POC Glucose 342 H 02/11/22 21:36: POC Glucose 354 H 02/11/22 23:48: POC Glucose 382 H 02/12/22 05:41: POC Glucose 351 H 02/12/22 06:14: WBC 7.6, RBC 3.16 L, Hgb 8.7 L, Hct 29.3 L, MCV 92.7, MCH 27.5, MCHC 29.7 L, RDW Std Deviation 59.7 H, RDW Coeff of Janel 17.6 H, Plt Count 251, MPV 10.2, Immature Gran % (Auto) 1.100 H, Neut % (Auto) 76.1 H, Lymph % (Auto) 4.9 L, [place] % (Auto) 17.5 H, Eos % (Auto) 0.1, Baso % (Auto) 0.3, Absolute Neuts (auto) 5.8, Absolute Lymphs (auto) 0.37 L, Nucleated RBC % 0.4, Differential Comment SCANNED 02/12/22 06:14: Sodium 127 L, Potassium 5.0, Chloride 91 L, Carbon Dioxide 17.0 L, Anion Gap 19 H, BUN 87 H, Creatinine 5.72 H, Estim Creat Clear Calc 10.13, Est GFR (MDRD) Af Amer 12 L, Est GFR (MDRD) Non-Af 10 L, BUN/Creatinine Ratio 15.2, Glucose 392 H, Calcium 8.7, Total Bilirubin 1.10 H, AST 76 H, ALT 7 L, Alkaline Phosphatase 116, Total Protein 6.9, Albumin 2.3 L, Globulin 4.6 H, Albumin/Globulin Ratio 0.5 L Micro: Microbiology 02/06/22 13:45 Fluid - Thoracentesis Fluid Gram Stain - Final 02/06/22 13:45 Fluid - Thoracentesis Fluid Body Fluid Culture - Final Culture exhibits no growth. 02/06/22 13:45 Fluid - Thoracentesis Fluid Anaerobic Culture - Final No growth in 5 days. ABG Data ABG results: ABG 02/11/22 02/12/22 17:12 00:13 Specimen Type ART ART Sample Site R Brach R Brach pH 7.29 L 7.27 L Bicarbonate Actual 22.1 16.7 L Total CO2 24 18 Base Excess -5 L -10 L O2 Saturation 99 99 O2 % 40 ABG pCO2 46.3 H 36.4 ABG pO2 129 H 141 H Price Test Positive N/A O2 Delivery Device Cannula BiPAP Liter Flow 4.0 Clinical Comments 13*7 bipap Radiography Diagnostic Testing: Radiology Impression KUB X-Ray 02/12/22 05:55 Physical Exam Narrative Physical Exam: Gen: Slightly lethargic, comfortable, not pale, not jaundiced CVS:HS I +II, regular, no murmurs RESP: Diminished at lung bases GI: Abdomen is distended, BS present and normal, soft, nontender, no palpable organs EXT: Left BKA, Fabrice wraps to the wound Assessment & Plan Assessment/Plan (1) Dry gangrene: (2) Dyspnea: QUALIFIERS: Dyspnea type: unspecified Qualified Code(s): R06.00 - Dyspnea, unspecified PLAN: 1. Acute on chronic combined heart failure, EF 40%, stage I diastolic dysfunction 2. Left large transudative pleural effusion, status post thoracocentesis 3. ESRD on hemodialysis 4. Right upper lobe lung mass 5. Postop day #3 status post left BKA 6. Acute on chronic hypoxic respiratory failure/COPD 7. Type II DM 8. CAD status post stent 9. Paroxysmal atrial fibrillation 10. Acute metabolic encephalopathy, likely multifactorial, post op 11. [place]'s syndrome Plan: Continue to monitor off sedatives Resume KATHRINE Lomeli with blood glucose checks Dialysis tomorrow Continue on IV antibiotics?cefepime and azithromycin Charges/Coding Visit Charges Inpatient E&M: 70092 Subs Hosp L2
[2022-02-12] MEDS: Budesonide Respules 0.5 MG/2 ML AMPUL.NEB. INHALATION (10:46)
[2022-02-12] MEDS: BRIMONIDINE 0.2% 5ML BOTTLE 1 DRP LEFT EYE ×2 (11:50→21:34)
[2022-02-12] MEDS: Aspirin E.C. 81 MG Tablet PO (11:51)
[2022-02-12] MEDS: Timolol 0.5% 5ML OPTH.BTL 1 DRP OPHTHALMIC (11:51)
[2022-02-12] MEDS: Clopidogrel Bisulfate 75 MG Tablet PO (11:51)
[2022-02-12] MEDS: Senna/Docusate Sodium 1 Tablet 2 TABLET PO (11:52)
[2022-02-12 12:11] LABS: Bedside Glucose 394 mg/dL (74-106)
[2022-02-12] MEDS: Insulin Lispro 100 UNIT/ML INSULN.PEN 10 UNIT SC (14:00)
[2022-02-12 14:26] LABS: Bedside Glucose 312 mg/dL (74-106)
[2022-02-12 17:31] LABS: Bedside Glucose 239 mg/dL (74-106)
[2022-02-12 18:01] LABS: Base Excess -6 mmol/L (-2 to +2); Bicarbonate 20.5 mmol/L (22-26); Blood Gas Specimen Type ART; FI02 35; O2 Delivery Device BiPAP; PEEP 6; PO2 128 mmHG (75-100); SITE R Brach; SO2 99 % (95-99); Total Carbon Dioxide 22 mmol/L; pCO2 41.6 mmHg (35-45)
--- NOTE | 2022-02-12 18:54 | PN.RENAL_ITS ---
Subjective Subjective Following for ESRD. The patient remains on BiPAP. Cannot do ROS. Per family, his oral intake has been poor. Objective Data Objective Data Vital Signs: Vital Signs Temp Pulse Resp BP Pulse Ox 97.4 F L 75 15 98/39 L 99 02/12/22 17:24 02/12/22 17:24 02/12/22 17:24 02/12/22 17:24 02/12/22 18:00 Oxygen Flow Rate (L/min) [4] 4 Oxygen Flow Rate (L/min) [3] 4 Oxygen Flow Rate (L/min) [2] 4 Oxygen Flow Rate (L/min) 4 Oxygen Delivery Method [3] Nasal Cannula Oxygen Delivery Method [2] Nasal Cannula Oxygen Delivery Method [1 ( Room Air Initial Baseline)] Oxygen Delivery Method Bi-pap Weight: 73.2 kg Body Mass Index (BMI) 23.8 Intake & Output: Intake and Output for Last 24 Hours 02/10/22 02/11/22 02/12/22 23:59 23:59 23:59 Intake Total 950 / 1000 1020 / 1020 600 / 600 Output Total 0 / 0 0 / 0 0 / 0 Balance 950 / 1000 1020 / 1020 600 / 600 Lab / Micro Data Result Diagrams: 02/12/22 06:14 02/12/22 06:14 Labs: Laboratory Results - last 24 hr 02/11/22 21:36: POC Glucose 354 H 02/11/22 23:48: POC Glucose 382 H 02/12/22 05:41: POC Glucose 351 H 02/12/22 06:14: WBC 7.6, RBC 3.16 L, Hgb 8.7 L, Hct 29.3 L, MCV 92.7, MCH 27.5, MCHC 29.7 L, RDW Std Deviation 59.7 H, RDW Coeff of Janel 17.6 H, Plt Count 251, MPV 10.2, Immature Gran % (Auto) 1.100 H, Neut % (Auto) 76.1 H, Lymph % (Auto) 4.9 L, [place] % (Auto) 17.5 H, Eos % (Auto) 0.1, Baso % (Auto) 0.3, Absolute Neuts (auto) 5.8, Absolute Lymphs (auto) 0.37 L, Nucleated RBC % 0.4, Differential Comment SCANNED 02/12/22 06:14: Sodium 127 L, Potassium 5.0, Chloride 91 L, Carbon Dioxide 17.0 L, Anion Gap 19 H, BUN 87 H, Creatinine 5.72 H, Estim Creat Clear Calc 10.13, Est GFR (MDRD) Af Amer 12 L, Est GFR (MDRD) Non-Af 10 L, BUN/Creatinine Ratio 1 5.2, Glucose 392 H, Calcium 8.7, Total Bilirubin 1.10 H, AST 76 H, ALT 7 L, Alkaline Phosphatase 116, Total Protein 6.9, Albumin 2.3 L, Globulin 4.6 H, Albumin/Globulin Ratio 0.5 L 02/12/22 11:48: POC Glucose 394 H 02/12/22 14:17: POC Glucose 312 H 02/12/22 17:06: POC Glucose 239 H Micro: Microbiology 02/06/22 13:45 Fluid - Thoracentesis Fluid Gram Stain - Final 02/06/22 13:45 Fluid - Thoracentesis Fluid Body Fluid Culture - Final Culture exhibits no growth. 02/06/22 13:45 Fluid - Thoracentesis Fluid Anaerobic Culture - Final No growth in 5 days. ABG Data ABG results: ABG 02/12/22 02/12/22 00:13 17:55 Specimen Type ART ART Sample Site R Brach R Brach pH 7.27 L 7.30 L Bicarbonate Actual 16.7 L 20.5 L Total CO2 18 22 Base Excess -10 L -6 L O2 Saturation 99 99 O2 % 40 35 ABG pCO2 36.4 41.6 ABG pO2 141 H 128 H Price Test N/A O2 Delivery Device BiPAP BiPAP POC PEEP 6 Clinical Comments 13*7 bipap Radiography Diagnostic Testing: Radiology Impression KUB X-Ray 02/12/22 05:55 Physical Exam Narrative General: Alert to name and place, NAD HEENT: Normocephalic, atraumatic. Mucous membrane is moist. Neck: Supple, no JVD. Heart: Normal S1, S2. There is a 3/6 systolic murmur. No rubs. Lungs: Coarse breath sound at bases bilaterally. Abdomen: Normal bowel sound, soft, nontender Extremity: No clubbing or cyanosis. no edema right leg. Status post left BKA AVF access for HD Assessment & Plan Assessment/Plan (1) ESRD (end stage renal disease) on dialysis: PLAN: -The patient usually dialyzes on MWF schedule at [facility] [place]. -He was last dialyzed on 02/10/2022. No need for dialysis today. -The patient does not appear to be volume overloaded today. Oral intake has been poor. -Patient will have a new lower dry weight by time of discharge to account for left leg amputation. (2) Anemia: PLAN: -The patient receives long-acting LAUREL at kidney center. Last received 02/03. -Hemoglobin is low but stable. We will continue to monitor. (3) Peripheral vascular occlusive disease: PLAN: -s/p Left BKA 02/09. (4) Dyspnea: PLAN: -Likely multifactorial. The patient has COPD and recent Covid 19 infection. The patient also has known chronic left pleural effusion. -There is likely some component of volume overload with his left pleural effusion. However, patient was already ultrafiltered on 02/10/2022. -No need for dialysis today as his intake has been rather poor the last 2 days. - UF as patient and BP tolerates with dialysis tomorrow.. - d/c plans in progress, possibly to [facility] when more stable
--- NOTE | 2022-02-12 18:58 | NURSING ---
texted regarding continued lower bp with map 61 after 250cc bolus.
[2022-02-12] MEDS: metroNIDAZOLE 500 MG/100 ML BAG 100 MG IV (20:15)
[2022-02-12] MEDS: Menthol/Lanolin/Calamine/Znox 113 GM Tube 1 APPLIC TOPICAL (21:34)
[2022-02-12] MEDS: Insulin Glargine-YFGN 100 UNIT/ML Pen 15 UNIT SC (21:34)
[2022-02-12] MEDS: Latanoprost 0.005% 1 Bottle 1 DRP OPHTHALMIC (21:35)
[2022-02-12 21:46] LABS: Bedside Glucose 185 mg/dL (74-106)
[2022-02-12 23:51] LABS: Bedside Glucose 269 mg/dL (74-106)
[2022-02-13] VITALS (20 sets, daily range): BP systolic 102–120; BP diastolic 39–65; PULSE 70–94; RESP 14–22; TEMP 36.3–36.9; O2SAT 96–100
[2022-02-13] MEDS: Ipratropium/Albuterol Sulfate 3 ML AMPUL.NEB INHALATION ×3 (03:50→20:04)
[2022-02-13 04:41] LABS: Bedside Glucose 232 mg/dL (74-106)
[2022-02-13] MEDS: metroNIDAZOLE 500 MG/100 ML BAG 100 MG IV ×3 (05:23→23:22)
[2022-02-13] MEDS: Menthol/Lanolin/Calamine/Znox 113 GM Tube 1 APPLIC TOPICAL ×3 (05:23→22:01)
[2022-02-13] MEDS: Insulin Lispro 100 UNIT/ML INSULN.PEN SC ×2 (05:26→21:53)
[2022-02-13 05:27] LABS: Absolute Lymphocyte Count 0.38 X10^3/uL (0.83-4.51); Basophil# 0.02 X10^3/uL; Basophil% 0.2 % (0-1); Eosinophil# 0.07 X10^3/uL; Eosinophils% 0.8 % (0-5); Hematocrit 25.8 % (40-54); Hemoglobin 7.9 g/dL (13.0-16.5); Lymphocyte # 0.38 X10^3/ul (0.83-4.51); Lymphocyte % 4.2 % (19-41); Mean Corp Hgb Conc 30.6 g/dL (32-36); Mean Corpuscular Hgb 27.3 pg (27.0-32.0); Mean Corpuscular Volume 89.3 fL (80-94); Mean Platelet Vol. 9.6 fl (6.2-12.0); Monocyte# 1.54 X10^3/uL; Monocyte% 16.9 % (0-10); NRBC Flagged by Analyzer 0 % (0-5); Neutrophil # 7.01 X10^3/uL (2.7-7.7); Neutrophil % 76.7 % (47-70); POSITIVE DIFFERENTIAL YES; Platelet Count 281 K/mm3 (150-450); RBC Distribution Width CV 17.8 % (11.6-14.6); RBC Distribution Width SD 56.9 fl (35.1-43.9); Red Blood Count 2.89 M/mm3 (4.6-6.2); White Blood Count 9.1 K/mm3 (4.4-11.0)
[2022-02-13 05:33] LABS: Differential Indicated SCAN CRITERIA MET
[2022-02-13 05:41] LABS: Bedside Glucose 239 mg/dL (74-106)
--- NOTE | 2022-02-13 05:43 | NURSING ---
Addendum entered by Gilda Rao 02/13/22 06:34: patient's and daughter present to see patient, Dr Lowery at bedside to discuss code status, family states they would like to think about it. Addendum entered by Gilda Rao 02/13/22 05:48: Dr Lowery in room to assess patient. He asks to please notify him when family arrives. Original Note: This RN in room with patient, patient pulling at bipap. Allowed for break from bipap, pt apneic at times. Placed back on bipap. Pt remains DNRCCA with Intubation. This RN called patient's , Cheyenne. Updated on patients night and what happened when removing from bipap, encouraged to come in and be with patient. Cheyenne stated that she would call her daughter and be in. This RN also called and updated Dr Lowery in which he stated that he would come to see the patient.
[2022-02-13 05:53] LABS: BUN 102 mg/dL (7-18); BUN/Creat Ratio 15.1 RATIO (10-20); Calcium,Total 8.1 mg/dL (8.5-10.1); Chloride 94 mmol/L (98-107); Creatinine, Serum 6.74 mg/dL (0.70-1.30); EST Glomerular Filtration Rate 9 mL/min (>60); Est Glom Filt Rate - Afr Amer 10 mL/min (>60); Glucose 233 mg/dL (74-106); Potassium 4.8 mmol/L (3.5-5.1); Sodium Level 130 mmol/L (136-145)
--- NOTE | 2022-02-13 05:55 | RAD_ITS ---
STUDY: X-RAY - ABDOMEN/PELVIS REASON FOR EXAM: Male, 77 years old. ileus TECHNIQUE: 2 portable AP supine views. COMPARISON: Previous abdominal radiographs of 02/13/2020 12/13/2021. FINDINGS: Follow-up films show continued interval decrease in amount of gas within the elongated and redundant colon; only a small amount of gas remains within the colon on the current study. There is now formed stool within the cecum, ascending colon and descending colon. A small amount stool and bowel gas are again noted within the rectum. Gas is scattered within a few nondistended small bowel loops on the current study.. No organomegaly. Right lung bases clear. Stable retrocardiac infiltrate. Stable blunting of the left lateral costophrenic angle by small left pleural effusion, as noted on prior chest radiograph of 02/10/2022. RAD/Abdomen Single View (Portable) IMPRESSION: Normal bowel gas pattern. Considerable interval decrease in colonic gas. Scattered gas noted within nondistended large and small bowel loops on the current exam. Electronically Signed: Gregg Lynne MD at 5:05 EDT ,
[2022-02-13 06:08] LABS: Anisocytosis 1+
--- NOTE | 2022-02-13 06:32 | PCM.PN.BLA ---
Progress Note Nurse reports that patient went apneic when she was taken off BiPAP. BiPAP was subsequently placed back. Nurse called family who came the bedside. Discussed CODE STATUS with family. Family will think about it. In the meantime patient remains DNR CCA with intubation.
--- NOTE | 2022-02-13 07:43 | PN.SURG_ITS ---
Subjective Subjective Patient had 2 bowel movements and is less distended Objective Data Objective Data Vital Signs: Vital Signs Temp Pulse Resp BP Pulse Ox 98.2 F 75 15 106/50 L 98 02/13/22 05:29 02/13/22 07:10 02/13/22 07:10 02/13/22 05:29 02/13/22 07:10 Oxygen Flow Rate (L/min) [4] 4 Oxygen Flow Rate (L/min) [3] 4 Oxygen Flow Rate (L/min) [2] 4 Oxygen Flow Rate (L/min) 3 Oxygen Delivery Method [3] Nasal Cannula Oxygen Delivery Method [2] Nasal Cannula Oxygen Delivery Method [1 ( Room Air Initial Baseline)] Oxygen Delivery Method Nasal Cannula Weight: 156 lb 15.506 oz Body Mass Index (BMI) 23.8 Intake & Output: Intake and Output for Last 24 Hours 02/11/22 02/12/22 02/13/22 23:59 23:59 23:59 Intake Total 1020 / 1020 1005 / 1005 Output Total 0 / 0 0 / 0 Balance 1020 / 1020 1005 / 1005 Lab / Micro Data Result Diagrams: 02/13/22 05:13 02/13/22 05:13 Labs: Laboratory Results - last 24 hr 02/12/22 11:48: POC Glucose 394 H 02/12/22 14:17: POC Glucose 312 H 02/12/22 17:06: POC Glucose 239 H 02/12/22 21:33: POC Glucose 185 H 02/12/22 23:46: POC Glucose 269 H 02/13/22 04:32: POC Glucose 232 H 02/13/22 05:13: WBC 9.1, RBC 2.89 L, Hgb 7.9 L, Hct 25.8 L, MCV 89.3, MCH 27.3, MCHC 30.6 L, RDW Std Deviation 56.9 H, RDW Coeff of Janel 17.8 H, Plt Count 281, MPV 9.6, Immature Gran % (Auto) 1.200 H, Neut % (Auto) 76.7 H, Lymph % (Auto) 4.2 L, [place] % (Auto) 16.9 H, Eos % (Auto) 0.8, Baso % (Auto) 0.2, Absolute Neuts (auto) 7.0, Absolute Lymphs (auto) 0.38 L, Nucleated RBC % 0, Anisocytosis 1+ 02/13/22 05:13: Sodium 130 L, Potassium 4.8, Chloride 94 L, Carbon Dioxide 20.0 L, BUN 102 H*, Creatinine 6.74 H, Estim Creat Clear Calc 8.60, Est GFR (MDRD) Af Amer 10 L, Est GFR (MDRD) Non-Af 9 L, BUN/Creatinine Ratio 15.1, Glucose 233 H, Calcium 8.1 L, Phosphorus 6.0 H, Albumin 2.0 L 02/13/22 05:19: POC Glucose 239 H Micro: Microbiology 02/06/22 13:45 Fluid - Thoracentesis Fluid Gram Stain - Final 02/06/22 13:45 Fluid - Thoracentesis Fluid Body Fluid Culture - Final Culture exhibits no growth. 02/06/22 13:45 Fluid - Thoracentesis Fluid Anaerobic Culture - Final No growth in 5 days. ABG Data ABG results: ABG 02/12/22 17:55 Specimen Type ART Sample Site R Brach pH 7.30 L Bicarbonate Actual 20.5 L Total CO2 22 Base Excess -6 L O2 Saturation 99 O2 % 35 ABG pCO2 41.6 ABG pO2 128 H O2 Delivery Device BiPAP POC PEEP 6 Radiography Diagnostic Testing: Radiology Impression KUB X-Ray 02/13/22 05:55 IMPRESSION: Normal bowel gas pattern. Considerable interval decrease in colonic gas. Scattered gas noted within nondistended large and small bowel loops on the current exam. Electronically Signed: Gregg Lynne MD at 5:05 EDT , Physical Exam Resp normal respiratory effort Cardio regular rate and regular rhythm GI soft to palpation and non-tender Assessment & Plan Assessment/Plan (1) Ileus: PLAN: The patient had a KUB this morning which shows normal bowel pattern. He had 2 bowel movements. I will start a regular diet. I will sign off at this time please notify me if there are any changes or need to see the patient again. Pradeep Long MD Pager: [facility] [address] [place] [address], [address] [place] [id number] Office:
--- NOTE | 2022-02-13 08:03 | PN.HOSP_ITS ---
Subjective Subjective Follow-up on pleural effusion/status post left BKA: Patient was seen and examined. Patient has been very lethargic. He had remained on BiPAP throughout the night. Was taken off briefly. Has some apneic episode. Patient is more lethargic today and unable to track. Objective Data Objective Data Vital Signs: Vital Signs Temp Pulse Resp BP Pulse Ox 98.2 F 75 15 106/50 L 98 02/13/22 05:29 02/13/22 07:10 02/13/22 07:10 02/13/22 05:29 02/13/22 07:10 Oxygen Flow Rate (L/min) [4] 4 Oxygen Flow Rate (L/min) [3] 4 Oxygen Flow Rate (L/min) [2] 4 Oxygen Flow Rate (L/min) 3 Oxygen Delivery Method [3] Nasal Cannula Oxygen Delivery Method [2] Nasal Cannula Oxygen Delivery Method [1 ( Room Air Initial Baseline)] Oxygen Delivery Method Nasal Cannula Weight: 71.2 kg Body Mass Index (BMI) 23.8 Intake & Output: Intake and Output for Last 24 Hours 02/11/22 02/12/22 02/13/22 23:59 23:59 23:59 Intake Total 1020 / 1020 1005 / 1005 Output Total 0 / 0 0 / 0 Balance 1020 / 1020 1005 / 1005 Lab / Micro Data Result Diagrams: 02/13/22 05:13 02/13/22 05:13 Labs: Laboratory Results - last 24 hr 02/12/22 11:48: POC Glucose 394 H 02/12/22 14:17: POC Glucose 312 H 02/12/22 17:06: POC Glucose 239 H 02/12/22 21:33: POC Glucose 185 H 02/12/22 23:46: POC Glucose 269 H 02/13/22 04:32: POC Glucose 232 H 02/13/22 05:13: WBC 9.1, RBC 2.89 L, Hgb 7.9 L, Hct 25.8 L, MCV 89.3, MCH 27.3, MCHC 30.6 L, RDW Std Deviation 56.9 H, RDW Coeff of Janel 17.8 H, Plt Count 281, MPV 9.6, Immature Gran % (Auto) 1.200 H, Neut % (Auto) 76.7 H, Lymph % (Auto) 4.2 L, [place] % (Auto) 16.9 H, Eos % (Auto) 0.8, Baso % (Auto) 0.2, Absolute Neuts (auto) 7.0, Absolute Lymphs (auto) 0.38 L, Nucleated RBC % 0, Anisocytosis 1+ 02/13/22 05:13: Sodium 130 L, Potassium 4.8, Chloride 94 L, Carbon Dioxide 20.0 L, BUN 102 H*, Creatinine 6.74 H, Estim Creat Clear Calc 8.60, Est GFR (MDRD) Af Amer 10 L, Est GFR (MDRD) Non-Af 9 L, BUN/Creatinine Ratio 15.1, Glucose 233 H, Calcium 8.1 L, Phosphorus 6.0 H, Albumin 2.0 L 02/13/22 05:19: POC Glucose 239 H Micro: Microbiology 02/06/22 13:45 Fluid - Thoracentesis Fluid Gram Stain - Final 02/06/22 13:45 Fluid - Thoracentesis Fluid Body Fluid Culture - Final Culture exhibits no growth. 02/06/22 13:45 Fluid - Thoracentesis Fluid Anaerobic Culture - Final No growth in 5 days. ABG Data ABG results: ABG 02/12/22 17:55 Specimen Type ART Sample Site R Brach pH 7.30 L Bicarbonate Actual 20.5 L Total CO2 22 Base Excess -6 L O2 Saturation 99 O2 % 35 ABG pCO2 41.6 ABG pO2 128 H O2 Delivery Device BiPAP POC PEEP 6 Radiography Diagnostic Testing: Radiology Impression KUB X-Ray 02/13/22 05:55 IMPRESSION: Normal bowel gas pattern. Considerable interval decrease in colonic gas. Scattered gas noted within nondistended large and small bowel loops on the current exam. Electronically Signed: Gregg Lynne MD at 5:05 EDT , Physical Exam Narrative Physical Exam: Gen: Lethargic, pupils are reactive to light, comfortable, not pale, not jaundi julian, on Bipap CVS:HS I +II, regular, no murmurs RESP: Diminished at lung bases GI: Abdomen is distended, BS present and normal, soft, nontender, no palpable organs EXT: Left BKA, Fabrice wraps to the wound Assessment & Plan Assessment/Plan (1) Dry gangrene: (2) Dyspnea: QUALIFIERS: Dyspnea type: unspecified Qualified Code(s): R06.00 - Dyspnea, unspecified PLAN: 1. Acute metabolic encephalopathy, likely multifactorial, post op 2. Left large transudative pleural effusion, status post thoracocentesis 3. ESRD on hemodialysis 4. Right upper lobe lung mass 5. Postop day #4 status post left BKA 6. Acute on chronic hypoxic respiratory failure/COPD 7. Type II DM 8. CAD status post stent 9. Paroxysmal atrial fibrillation 10. 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 stated that patient would n ot want to be kept on artificial life support. Patient's CODE STATUS made from DNR CCA, intubation to DNR CCA, no intubation
[2022-02-13] MEDS: Ipratropium 0.5 MG/2.5 ML SOLUTION INHALATION (09:47)
--- NOTE | 2022-02-13 10:09 | CPS ---
One time Treatment of Atrovent given per for Shortness of breath
[2022-02-13 11:36] LABS: Bedside Glucose 149 mg/dL (74-106)
--- NOTE | 2022-02-13 11:53 | PN.RENAL_ITS ---
Subjective Subjective Following for ESRD Seen on dialysis, tolerating treatment. Multiple family members at bedside. Objective Data Objective Data Vital Signs: Vital Signs Temp Pulse Resp BP Pulse Ox 98.0 F 94 18 102/65 96 02/13/22 11:25 02/13/22 11:25 02/13/22 11:25 02/13/22 11:25 02/13/22 11:25 Oxygen Flow Rate (L/min) [4] 4 Oxygen Flow Rate (L/min) [3] 4 Oxygen Flow Rate (L/min) [2] 4 Oxygen Flow Rate (L/min) 3 Oxygen Delivery Method [3] Nasal Cannula Oxygen Delivery Method [2] Nasal Cannula Oxygen Delivery Method [1 ( Room Air Initial Baseline)] Oxygen Delivery Method Bi-pap Weight: 71.2 kg Body Mass Index (BMI) 23.8 Intake & Output: Intake and Output for Last 24 Hours 02/11/22 02/12/22 02/13/22 23:59 23:59 23:59 Intake Total 1020 / 1020 1005 / 1005 100 / 100 Output Total 0 / 0 0 / 0 Balance 1020 / 1020 1005 / 1005 100 / 100 Lab / Micro Data Result Diagrams: 02/13/22 05:13 02/13/22 05:13 Labs: Laboratory Results - last 24 hr 02/12/22 11:48: POC Glucose 394 H 02/12/22 14:17: POC Glucose 312 H 02/12/22 17:06: POC Glucose 239 H 02/12/22 21:33: POC Glucose 185 H 02/12/22 23:46: POC Glucose 269 H 02/13/22 04:32: POC Glucose 232 H 02/13/22 05:13: WBC 9.1, RBC 2.89 L, Hgb 7.9 L, Hct 25.8 L, MCV 89.3, MCH 27.3, MCHC 30.6 L, RDW Std Deviation 56.9 H, RDW Coeff of Janel 17.8 H, Plt Count 281, MPV 9.6, Immature Gran % (Auto) 1.200 H, Neut % (Auto) 76.7 H, Lymph % (Auto) 4.2 L, [place] % (Auto) 16.9 H, Eos % (Auto) 0.8, Baso % (Auto) 0.2, Absolute Neuts (auto) 7.0, Absolute Lymphs (auto) 0.38 L, Nucleated RBC % 0, Anisocytosis 1+ 02/13/22 05:13: Sodium 130 L, Potassium 4.8, Chloride 94 L, Carbon Dioxide 20.0 L, BUN 102 H*, Creatinine 6.74 H, Estim Creat Clear Calc 8.60, Est GFR (MDRD) Af Amer 10 L, Est GFR (MDRD) Non-Af 9 L, BUN/Creatinine Ratio 15.1, Glucose 233 H, Calcium 8.1 L, Phosphorus 6.0 H, Albumin 2.0 L 02/13/22 05:19: POC Glucose 239 H 02/13/22 11:30: POC Glucose 149 H Micro: Microbiology 02/06/22 13:45 Fluid - Thoracentesis Fluid Gram Stain - Final 02/06/22 13:45 Fluid - Thoracentesis Fluid Body Fluid Culture - Final Culture exhibits no growth. 02/06/22 13:45 Fluid - Thoracentesis Fluid Anaerobic Culture - Final No growth in 5 days. ABG Data ABG results: ABG 02/12/22 17:55 Specimen Type ART Sample Site R Brach pH 7.30 L Bicarbonate Actual 20.5 L Total CO2 22 Base Excess -6 L O2 Saturation 99 O2 % 35 ABG pCO2 41.6 ABG pO2 128 H O2 Delivery Device BiPAP POC PEEP 6 Radiography Diagnostic Testing: Radiology Impression KUB X-Ray 02/13/22 05:55 IMPRESSION: Normal bowel gas pattern. Considerable interval decrease in colonic gas. Scattered gas noted within nondistended large and small bowel loops on the current exam. Electronically Signed: Gregg Lynne MD at 5:05 EDT , Physical Exam Narrative General: Alert to name HEENT: Normocephalic, atraumatic. Neck: Supple, no JVD. Heart: Normal S1, S2. There is a 3/6 systolic murmur. No rubs. Lungs: On BiPAP Abdomen: Normal bowel sounds, soft Extremity: No edema right leg. Status post left BKA AVF accessed for HD Assessment & Plan Assessment/Plan (1) ESRD (end stage renal disease) on dialysis: PLAN: -Dialyzes on MWF schedule at [facility] [place]. -for dialysis today using sodium modeling due to hypotension. UF ~500ml as pt/bp can tolerate. -The patient does not appear to be volume overloaded. Oral intake has been poor. Currently on bipap - bps low, off antihypertensives and started on midodrine. Not taking midodrine as he has not been taking anything by mouth. hopefully mentation will improve a nd patient will be able to start taking by mouth. Will increase midodrine and continue with holding parameters to be held if SBP >130. (2) Anemia: PLAN: -The patient receives long-acting LAUREL at [facility] center. Last received 02/03. -Hemoglobin is low but stable. To check Hgb post HD today and transfuse if <7 (3) Peripheral vascular occlusive disease: PLAN: -s/p Left BKA 02/09. (4) Dyspnea: PLAN: -Likely multifactorial. The patient has COPD and recent Covid 19 infection. The patient also has known chronic left pleural effusion. -There is likely some component of volume overload with his left pleural effusion. However, patient was already ultrafiltered on 02/10/2022. - seen by surgery, KUB showed normal bowel pattern. Patient had BMs. To be started on diet if mentation improves. Surgery signed off. - started on azithromycin, cefepime and flagyl. - UF as patient and BP tolerates with dialysis today. Evaluate HD/UF needs for tomorrow.
--- NOTE | 2022-02-13 12:20 | CT_ITS ---
STUDY: CT BRAIN WITHOUT CONTRAST REASON FOR EXAM: Male, 77 years old. Encephalopathy. History of prostate cancer. RADIATION DOSAGE (If Supplied By Facility): CTDIvol = ( 44.99 ) mGy, DLP = ( 846.73 ) mGycm TECHNIQUE: Transaxial CT imaging of the brain was performed without administration of intravenous contrast material. Individualized dose optimization techniques were used for this CT. COMPARISON: No relevant priors. FINDINGS: Normal soft tissue structures. Normal calvarium. There is mild cerebral atrophy with widening of the extra-axial spaces and ventricular dilatation. There are areas of decreased attenuation within the white matter tracts of the supratentorial brain, consistent with microvascular disease changes. Normal basal ganglia and thalami. Normal brainstem. Normal cerebellum. There is no intracranial hemorrhage. There are no findings of an acute ischemic infarction. Normal visualized paranasal sinuses. CT/Brain/Head without Contrast IMPRESSION: Chronic involutional changes of the brain. Electronically Signed: Fabricio Shah MD at 13:12 EDT ,
[2022-02-13] MEDS: BRIMONIDINE 0.2% 5ML BOTTLE 1 DRP LEFT EYE ×2 (12:39→21:58)
[2022-02-13] MEDS: Timolol 0.5% 5ML OPTH.BTL 1 DRP OPHTHALMIC (12:39)
[2022-02-13 12:52] LABS: Pathologist Review Reviewed
--- NOTE | 2022-02-13 13:12 | DIALYSIS ---
HD x 3.25 complete. Ran on 2k bath. UF of 200ml. Used left arm fistula. Newberry removed post tx and pressure applied x 10 minutes. Hemostasis achieved. Fresh gauze and tape applied. Report was given to AILIN Garcia
--- NOTE | 2022-02-13 14:00 | RAD_ITS ---
STUDY: X-RAY CHEST REASON FOR EXAM: Male, 77 years old. SOB / SOA Respiratory Failiure TECHNIQUE: XR Chest 1 View COMPARISON: 02.10.22 FINDINGS: There is a left pleural effusion. Left infiltrate . Right humeral anchor. Normal size heart. Normal mediastinum and jessica. Normal visualized pulmonary arteries. There is atherosclerotic calcification of the aortic arch with tortuosity. There are diffuse degenerative changes of the visualized thoracic spine. There is degenerative osteoarthritis of the bilateral shoulders. There is no demonstrated abnormality of the visualized soft tissue structures of the upper abdomen. RAD/Chest 1 View (Portable) IMPRESSION: There is a left pleural effusion. Left infiltrate Electronically Signed: Sebastian Edwards MD at 17:36 EDT ,
--- NOTE | 2022-02-13 14:08 | CASEMGMT ---
Social Work [facility] updated that pt has declined and is not ready for d/c at this time. SW will keep [facility] updated. AYALA Dia
--- NOTE | 2022-02-13 14:15 | PCM.PN.INT ---
Assessment & Plan Assessment/Plan (1) Encephalopathy: PLAN: RECOMMENDATIONS: 1. Obtain repeat chest x-ray. 2. Obtain arterial blood gas. 3. Recheck comprehensive metabolic profile along with ammonia level and H&H. 4. Send type and screen. 5. Start PPI therapy twice daily. 6. Continue to avoid sedating medications. 7. Wean from continuous BiPAP support as tolerated. IMPRESSIONS: 1. Encephalopathy I do suspect that the patient's encephalopathy, which appears to have developed following his lower extremity amputation at the end of January is likely secondary to underlying metabolic derangements. CT head was unremarkable. ABG from yesterday did not reveal evidence of CO2 retention. I am concerned that the patient's BUN appears to have been elevated out of proportion to what his baseline for him. He did receive dialysis today. Therefore, we will plan to obtain postdialysis lab work including comprehensive metabolic profile, H&H and ammonia. It is certainly plausible that the patient could be bleeding, which could be contributing to his rising BUN. Therefore, it would be reasonable to start the patient on PPI therapy as well. 2. Worsening anemia The patient does have some anemia of chronic disease. However, his hemoglobin is lower than what is normal for him. Agree with checking an H&H post dialysis today. If hemoglobin is less than 7 g/dL, plan to transfuse packed red blood cells. Agree with starting PPI therapy today as well. 3. Chronic hypoxic respiratory failure secondary to COPD with new transudate effusion/pulmonary nodule Clinical suspicion for shortness of breath secondary to pleural effusion in the setting of relatively advanced COPD. High clinical suspicion for renal or cardiac etiology for pleural effusion. Continue hemodialysis support per nephrology recommendations. Continue bronchodilator therapy. Pulmonary nodules can be monitored longitudinally on an outpatient basis. 4. End-stage renal disease on hemodialysis Continue supportive care per nephrology recommendations. 5. Peripheral vascular disease status post left BKA/diabetes mellitus/coronary artery disease Complicates care, management, recovery and prognosis. Continue supportive measures as noted above. If mentation does not begin to improve soon, will need to consider alternative means of nutritional support. This note was generated with [employer] software. It may contain incorrect words, spelling, and punctuation that were not noted in checking the note before signing. Subjective Subjective The patient was seen and examined at the bedside this morning. Events from the last 24 hours have been reviewed. The patient is currently afebrile, hemodynamically stable and maintaining appropriate oxygen saturations on BiPAP with an FiO2 requirement of 35%. The patient remains quite lethargic today. He did tolerate dialysis. The patient underwent a left below knee amputation on February 09 and has reportedly been more lethargic and less responsive since that time. He is currently documented to be overall net +4.5 L for the hospitalization. His hemoglobin this morning was noted to be 7.9 g/dL. Arterial blood gas obtained yesterday on BiPAP revealed a pH of 7.3 with a PCO2 of 41 and PO2 of 128. CT head done earlier today revealed chronic involutional changes. It does appear that the patient's BUN has been elevated out of proportion to what is baseline for him since the time of his surgery. Objective Data Objective Data The patient's most recent lab work, culture data and imaging studies have all been personally reviewed. Pleural fluid dated February 06 demonstrated no growth to date. Vital Signs: Vital Signs Temp Pulse Resp BP Pulse Ox 98.0 F 94 18 102/65 96 02/13/22 11:25 02/13/22 11:25 02/13/22 11:25 02/13/22 11:25 02/13/22 11:25 Oxygen Flow Rate (L/min) [4] 4 Oxygen Flow Rate (L/min) [3] 4 Oxygen Flow Rate (L/min) [2] 4 Oxygen Flow Rate (L/min) 3 Oxygen Delivery Method [3] Nasal Cannula Oxygen Delivery Method [2] Nasal Cannula Oxygen Delivery Method [1 ( Room Air Initial Baseline)] Oxygen Delivery Method Bi-pap Weight: 71.2 kg Body Mass Index (BMI) 23.8 Intake & Output: Intake and Output for Last 24 Hours 02/11/22 02/12/22 02/13/22 23:59 23:59 23:59 Intake Total 1020 / 1020 1005 / 1005 100 / 100 Output Total 0 / 0 0 / 0 0 / 0 Balance 1020 / 1020 1005 / 1005 100 / 100 Lab / Micro Data Attestation: I reviewed the patient's lab results. Result Diagrams: 02/13/22 05:13 02/13/22 05:13 Labs: Laboratory Results - last 24 hr 02/11/22 06:36: Diff Path Review Reviewed 02/12/22 14:17: POC Glucose 312 H 02/12/22 17:06: POC Glucose 239 H 02/12/22 21:33: POC Glucose 185 H 02/12/22 23:46: POC Glucose 269 H 02/13/22 04:32: POC Glucose 232 H 02/13/22 05:13: WBC 9.1, RBC 2.89 L, Hgb 7.9 L, Hct 25.8 L, MCV 89.3, MCH 27.3, MCHC 30.6 L, RDW Std Deviation 56.9 H, RDW Coeff of Janel 17.8 H, Plt Count 281, MPV 9.6, Immature Gran % (Auto) 1.200 H, Neut % (Auto) 76.7 H, Lymph % (Auto) 4.2 L, [place] % (Auto) 16.9 H, Eos % (Auto) 0.8, Baso % (Auto) 0.2, Absolute Neuts (auto) 7.0, Absolute Lymphs (auto) 0.38 L, Nucleated RBC % 0, Anisocytosis 1+ 02/13/22 05:13: Sodium 130 L, Potassium 4.8, Chloride 94 L, Carbon Dioxide 20.0 L, BUN 102 H*, Creatinine 6.74 H, Estim Creat Clear Calc 8.60, Est GFR (MDRD) Af Amer 10 L, Est GFR (MDRD) Non-Af 9 L, BUN/Creatinine Ratio 15.1, Glucose 233 H, Calcium 8.1 L, Phosphorus 6.0 H, Albumin 2.0 L 02/13/22 05:19: POC Glucose 239 H 02/13/22 11:30: POC Glucose 149 H Micro: Microbiology 02/06/22 13:45 Fluid - Thoracentesis Fluid Gram Stain - Final 02/06/22 13:45 Fluid - Thoracentesis Fluid Body Fluid Culture - Final Culture exhibits no growth. 02/06/22 13:45 Fluid - Thoracentesis Fluid Anaerobic Culture - Final No growth in 5 days. ABG Data ABG results: ABG 02/12/22 17:55 Specimen Type ART Sample Site R Brach pH 7.30 L Bicarbonate Actual 20.5 L Total CO2 22 Base Excess -6 L O2 Saturation 99 O2 % 35 ABG pCO2 41.6 ABG pO2 128 H O2 Delivery Device BiPAP POC PEEP 6 Radiography Diagnostic Testing: Radiology Impression KUB X-Ray 02/13/22 05:55 IMPRESSION: Normal bowel gas pattern. Considerable interval decrease in colonic gas. Scattered gas noted within nondistended large and small bowel loops on the current exam. Electronically Signed: Gregg Lynne MD at 5:05 EDT , Brain CT 02/13/22 12:20 IMPRESSION: Chronic involutional changes of the brain. Electronically Signed: Fabricio Shah MD at 13:12 EDT , Physical Exam Const Constitutional Narrative: Multiple family members present at the bedside. General Appearance: lethargic, ill appearing and on BiPAP Exam Limitations: altered mental status HEENT normocephalic and head/scalp atraumatic Eyes PERRL and EOMs intact bilaterally Neck supple General: trachea midline Chest inspection of chest normal Resp Auscultation: diminished lung sounds Cardio regular rate and regular rhythm GI normal to inspection, nondistended, normoactive bowel sounds Extremity General Extremity: amputation; Negative for clubbing or edema Skin no rashes or lesions noted Neuro Neuro Narrative: Lethargic and nonresponsive to verbal stimulation. Charges/Coding Visit Charges Inpatient E&M: 59785 Subs Hosp L3
[2022-02-13 14:41] LABS: Hematocrit 29.6 % (40-54); Hemoglobin 9.1 g/dL (13.0-16.5)
[2022-02-13 15:09] LABS: ALB/GLOB Ratio 0.4 RATIO (0.9-2.4); AST(SGOT) 110 U/L (15-37); Alanine Aminotransfer ALT/SGPT 7 U/L (16-61); Albumin, Serum 2.1 g/dL (3.2-5.0); Alkaline Phosphatase 98 U/L (45-117); Anion Gap 14 (5-15); BUN 37 mg/dL (7-18); BUN/Creat Ratio 11.4 RATIO (10-20); Calcium,Total 7.9 mg/dL (8.5-10.1); Chloride 99 mmol/L (98-107); Creatinine, Serum 3.25 mg/dL (0.70-1.30); EST Glomerular Filtration Rate 20 mL/min (>60); Est Glom Filt Rate - Afr Amer 24 mL/min (>60); Estimated Creatinine Clearance 17.83 ml/min; Globulin 4.8 g/dL (2.2-4.2); Glucose 202 mg/dL (74-106); Potassium 3.9 mmol/L (3.5-5.1); Protein, Total 6.9 g/dL (6.4-8.2); Sodium Level 136 mmol/L (136-145)
--- NOTE | 2022-02-13 16:01 | CHAPLAIN ---
Type of Pastoral Visit _x__ Initial Visit ___ Follow-up Visit ___ On-call Visit ___ General Patient Visit ___ Spiritual Assessment ___ Family Conference ___ Bereavement ___ Rapid Response ___ Code Blue ___ Other (describe below) Pastoral Care Referral From ___ Patient _x__ Family ___ Nurse ___ Physician ___ Chain Forming Machine Operator ___ Geospatial Engineer ___ Other (describe below) Sacrament/Intervention _x__ Active listening ___ Anointing ___ Druze ___ Bereavement ___ Communion _x__ Kriss exploration ___ ___ Life review _x__ Prayer ___ Reconciliation ___ Sacrament of Sick _x__ Supportive presence ___ Wedding ___ Other (describe below) Pastoral Comments many family members had gathered to bedside as patient declines; stopped to offer support with in the hallway; welcomes spiritual care support after a bit; returned to room and only patient and now present; gives description of situation; pt and are members of [employer]; welcomes prayer and pt nods in agreement; pt then tries to remove Bi-pap and wants to be alone; stays at bedside; notified head charger that patient is becoming more restless and agitated per 's words
[2022-02-13 16:35] LABS: Allen Test Positive; Base Excess -4 mmol/L (-2 to +2); Blood Gas Specimen Type ART; O2 Delivery Device Cannula; PO2 119 mmHG (75-100); SITE R Radial; SO2 99 % (95-99); Total Carbon Dioxide 22 mmol/L; pH 7.37 (7.35-7.45)
[2022-02-13] MEDS: Midodrine HCl 5 MG Tablet 20 MG PO (18:02)
[2022-02-13 18:11] LABS: Bedside Glucose 248 mg/dL (74-106)
[2022-02-13] MEDS: Lactulose 20 GM/30 ML UDC 15 GM PO (18:48)
[2022-02-13] MEDS: Acetaminophen 500 MG Tablet 1000 MG PO (18:53)
[2022-02-13] MEDS: Budesonide Respules 0.5 MG/2 ML AMPUL.NEB. INHALATION (20:04)
[2022-02-13] MEDS: Insulin Glargine-YFGN 100 UNIT/ML Pen 15 UNIT SC (21:55)
[2022-02-13] MEDS: 0.9% Saline Lock 10 ML Syringe IV (21:55)
[2022-02-13 21:56] LABS: Bedside Glucose 277 mg/dL (74-106)
[2022-02-13] MEDS: Latanoprost 0.005% 1 Bottle 1 DRP OPHTHALMIC (22:00)
[2022-02-14] VITALS (13 sets, daily range): BP systolic 107–122; BP diastolic 50–68; PULSE 71–89; RESP 15–20; TEMP 36.3–37; O2SAT 95–100
[2022-02-14] MEDS: Albuterol 2.5 MG/3 ML VIAL.NEB. INHALATION (01:01)
[2022-02-14] MEDS: Menthol/Lanolin/Calamine/Znox 113 GM Tube 1 APPLIC TOPICAL ×3 (05:25→21:36)
[2022-02-14] MEDS: metroNIDAZOLE 500 MG/100 ML BAG 100 MG IV ×3 (05:43→22:24)
[2022-02-14 06:25] LABS: Absolute Lymphocyte Count 0.34 X10^3/uL (0.83-4.51); Absolute Neutrophil Count 8.9 X10^3/uL (2.0-7.7); Basophil# 0.02 X10^3/uL; Basophil% 0.2 % (0-1); Eosinophil# 0.01 X10^3/uL; Eosinophils% 0.1 % (0-5); Hematocrit 26.8 % (40-54); Lymphocyte # 0.34 X10^3/ul (0.83-4.51); Mean Corp Hgb Conc 29.9 g/dL (32-36); Mean Corpuscular Hgb 27.5 pg (27.0-32.0); Mean Corpuscular Volume 92.1 fL (80-94); Mean Platelet Vol. 10.2 fl (6.2-12.0); Monocyte# 1.83 X10^3/uL; Monocyte% 16.2 % (0-10); NRBC Flagged by Analyzer 0.2 % (0-5); Neutrophil # 8.92 X10^3/uL (2.7-7.7); Neutrophil % 79.2 % (47-70); POSITIVE DIFFERENTIAL YES; POSITIVE MORPHOLOGY YES; Platelet Count 263 K/mm3 (150-450); RBC Distribution Width CV 18.1 % (11.6-14.6); RBC Distribution Width SD 60.5 fl (35.1-43.9); Red Blood Count 2.91 M/mm3 (4.6-6.2); White Blood Count 11.3 K/mm3 (4.4-11.0)
[2022-02-14 06:29] LABS: Differential Indicated SCAN CRITERIA MET
[2022-02-14 06:45] LABS: Anisocytosis 1+
[2022-02-14] MEDS: Insulin Lispro 100 UNIT/ML INSULN.PEN SC ×2 (06:47→18:21)
[2022-02-14] MEDS: Budesonide Respules 0.5 MG/2 ML AMPUL.NEB. INHALATION (06:56)
[2022-02-14] MEDS: Ipratropium/Albuterol Sulfate 3 ML AMPUL.NEB INHALATION (06:56)
[2022-02-14 06:58] LABS: Albumin, Serum 1.9 g/dL (3.2-5.0); BUN 58 mg/dL (7-18); BUN/Creat Ratio 13.2 RATIO (10-20); Calcium,Total 7.9 mg/dL (8.5-10.1); Chloride 100 mmol/L (98-107); Creatinine, Serum 4.38 mg/dL (0.70-1.30); EST Glomerular Filtration Rate 14 mL/min (>60); Est Glom Filt Rate - Afr Amer 17 mL/min (>60); Estimated Creatinine Clearance 13.23 ml/min; Glucose 322 mg/dL (74-106); Phosphorus 6.1 mg/dL (2.5-4.9); Potassium 4.3 mmol/L (3.5-5.1); Sodium Level 132 mmol/L (136-145)
[2022-02-14 07:00] LABS: Bedside Glucose 332 mg/dL (74-106)
--- NOTE | 2022-02-14 10:31 | PCM.PN.REN ---
Subjective Subjective Following for ESRD Patient seen and examined while on dialysis. Overall improvement in mentation, off BiPAP and on nasal cannula. Daughter at bedside. Discussed with daughter today dialysis plan. Patient alert to name. Objective Data Objective Data Vital Signs: Vital Signs Temp Pulse Resp BP Pulse Ox 97.4 F L 73 15 111/52 L 99 02/14/22 09:35 02/14/22 09:35 02/14/22 09:35 02/14/22 09:35 02/14/22 09:35 Oxygen Flow Rate (L/min) [4] 4 Oxygen Flow Rate (L/min) [3] 4 Oxygen Flow Rate (L/min) [2] 4 Oxygen Flow Rate (L/min) 1 Oxygen Delivery Method [3] Nasal Cannula Oxygen Delivery Method [2] Nasal Cannula Oxygen Delivery Method [1 ( Room Air Initial Baseline)] Oxygen Delivery Method Nasal Cannula Weight: 70.9 kg Body Mass Index (BMI) 23.8 Intake & Output: Intake and Output for Last 24 Hours 02/12/22 02/13/22 02/14/22 23:59 23:59 23:59 Intake Total 1005 / 1005 520 / 520 455 / 455 Output Total 0 / 0 0 / 0 Balance 1005 / 1005 520 / 520 455 / 455 Lab / Micro Data Result Diagrams: 02/14/22 06:00 02/14/22 06:00 Labs: Laboratory Results - last 24 hr 02/11/22 06:36: Diff Path Review Reviewed 02/13/22 11:30: POC Glucose 149 H 02/13/22 14:30: Hgb 9.1 L, Hct 29.6 L 02/13/22 14:30: Sodium 136, Potassium 3.9, Chloride 99, Carbon Dioxide 23.0, Anion Gap 14, BUN 37 H, Creatinine 3.25 H, Estim Creat Clear Calc 17.83, Est GFR (MDRD) Af Amer 24 L, Est GFR (MDRD) Non-Af 20 L, BUN/Creatinine Ratio 11.4, Glucose 202 H, Calcium 7.9 L, Total Bilirubin 0.60, AST 110 H, ALT 7 L, Alkaline Phosphatase 98, Total Protein 6.9, Albumin 2.1 L, Globulin 4.8 H, Albumin/Globulin Ratio 0.4 L 02/13/22 14:30: Ammonia 34.0 H 02/13/22 17:57: POC Glucose 248 H 02/13/22 21:45: POC Glucose 277 H 02/14/22 06:00: WBC 11.3 H, RBC 2.91 L, Hgb 8.0 L, Hct 26.8 L, MCV 92.1, MCH 27.5, MCHC 29.9 L, RDW Std Deviation 60.5 H, RDW Coeff of Janel 18.1 H, Plt Count 263, MPV 10.2, Immature Gran % (Auto) 1.300 H, Neut % (Auto) 79.2 H, Lymph % (Auto) 3.0 L, [place] % (Auto) 16.2 H, Eos % (Auto) 0.1, Baso % (Auto) 0.2, Absolute Neuts (auto) 8.9 H, Absolute Lymphs (auto) 0.34 L, Nucleated RBC % 0.2, Diff Path Review March, Anisocytosis 1+ 02/14/22 06:00: Sodium 132 L, Potassium 4.3, Chloride 100, Carbon Dioxide 16.0 L, BUN 58 H, Creatinine 4.38 H, Estim Creat Clear Calc 13.23, Est GFR (MDRD) Af Amer 17 L, Est GFR (MDRD) Non-Af 14 L, BUN/Creatinine Ratio 13.2, Glucose 322 H, Calcium 7.9 L, Phosphorus 6.1 H, Albumin 1.9 L 02/14/22 06:45: POC Glucose 332 H Micro: Microbiology 02/13/22 17:00 Stool Stool Occult Blood (LEVI) - Final Occult Blood Positive 02/06/22 13:45 Fluid - Thoracentesis Fluid Gram Stain - Final 02/06/22 13:45 Fluid - Thoracentesis Fluid Body Fluid Culture - Final Culture exhibits no growth. 02/06/22 13:45 Fluid - Thoracentesis Fluid Anaerobic Culture - Final No growth in 5 days. ABG Data ABG results: ABG 02/13/22 16:31 Specimen Type ART Sample Site R Radial pH 7.37 Bicarbonate Actual 21.0 L Total CO2 22 Base Excess -4 L O2 Saturation 99 ABG pCO2 36.0 ABG pO2 119 H Price Test Positive O2 Delivery Device Cannula Liter Flow 3.0 Radiography Diagnostic Testing: Radiology Impression Brain CT 02/13/22 12:20 IMPRESSION: Chronic involutional changes of the brain. Electronically Signed: Fabricio Shah MD at 13:12 EDT , Chest X-Ray 02/13/22 14:00 IMPRESSION: There is a left pleural effusion. Left infiltrate Electronically Signed: Sebastian Edwards MD at 17:36 EDT , Physical Exam Narrative General: Alert to name HEENT: Normocephalic, atraumatic. Neck: Supple, no JVD. Heart: Normal S1, S2. There is a 3/6 systolic murmur. No rubs. Lungs: clear anteriorly Abdomen: Normal bowel sounds, soft Extremity: No edema right leg. Status post left BKA AVF accessed for HD Assessment & Plan Assessment/Plan (1) ESRD (end stage renal disease) on dialysis: PLAN: -Dialyzes on MWF schedule at [facility] [place]. At time of discharge patient will have a new lowered EDW -for dialysis today and attempt UF as pt/bp tolerates, likely no more than 1L and keeping SBP >90. - Will evaluate for HD/UF needs tomorrow. -The patient does not appear to be volume overloaded. Oral intake has been poor. - bps low, off antihypertensives and started on midodrine, continue with holding parameters to be held if SBP >130. (2) Anemia: PLAN: -The patient receives long-acting LAUREL at [facility]. Last received 02/03. -Hemoglobin is low but stable. Hgb post HD 02/13 9.1. Hgb today 8. - stool OB + x1 (3) Peripheral vascular occlusive disease: PLAN: -s/p Left BKA 02/09. (4) Dyspnea: PLAN: -Likely multifactorial. The patient has COPD and recent Covid 19 infection. The patient also has known chronic left pleural effusion. Reviewed CXR from 02/13 which showed left pleural effusion and left infiltrate - CT head no acute process -There is likely some component of volume overload with his left pleural effusion. - seen by surgery, KUB showed normal bowel pattern. Patient had BMs. To be started on diet if mentation improves. Surgery signed off. - started on azithromycin, cefepime and flagyl. Also on PPI gtt. - overall patient appears to be improving; mentation and respiratory status have improved. Bps have improved. Continue Midodrine. D/c renal diet restrictions as patient has poor appetite (not much appetite since surgery). Protein supplement ordered - ammonia level 34, received lactulose x1
[2022-02-14 11:20] LABS: Bedside Glucose 135 mg/dL (74-106)
--- NOTE | 2022-02-14 12:12 | DIALYSIS ---
Hemodialysis tx completed x 3.5 hours. Pt tolerated tx fair, fluid removed 800ml, using crit-line monitor to B-profile, BV change -13.2% without refill. Pt very confused throughout tx and agitated at times during tx. Daughter at bedside most of tx and had to hold patient's hand throughout to stop patient from moving access arm. Verbal report given to AILIN Garcia post tx
[2022-02-14] MEDS: 0.9% Saline Lock 10 ML Syringe IV (13:18)
--- NOTE | 2022-02-14 13:19 | PCM.PN.INT ---
Assessment & Plan Assessment/Plan (1) Encephalopathy: PLAN: RECOMMENDATIONS: 1. Wean supplemental oxygen as tolerated. 2. Continue BiPAP support nightly if tolerated by patient. 3. Avoid sedating medications. 4. Continue to monitor H&H daily. Transfuse if hemoglobin drops below 7 g/dL. 5. Continue PPI therapy. 6. Awaiting speech therapy evaluation prior to advancing diet. IMPRESSIONS: 1. Encephalopathy I do suspect that the patient's encephalopathy, which appears to have developed following his lower extremity amputation at the end of January is likely secondary to underlying metabolic derangements. CT head was unremarkable. ABG from yesterday did not reveal evidence of CO2 retention. The patient continues to receive dialysis support per nephrology recommendations. Plan to continue current supportive measures. Avoid sedating medications. Await speech therapy evaluation prior to advancing diet. 2. Worsening anemia The patient does have some anemia of chronic disease. However, his hemoglobin is lower than what is normal for him. Continue to monitor H&H daily. If hemoglobin is less than 7 g/dL, plan to transfuse packed red blood cells. Agree with continuing PPI therapy. 3. Chronic hypoxic respiratory failure secondary to COPD with new transudate effusion/pulmonary nodule Clinical suspicion for shortness of breath secondary to pleural effusion in the setting of relatively advanced COPD. High clinical suspicion for renal or cardiac etiology for pleural effusion. Continue hemodialysis support per nephrology recommendations. Continue bronchodilator therapy. Pulmonary nodules can be monitored longitudinally on an outpatient basis. 4. End-stage renal disease on hemodialysis Continue supportive care per nephrology recommendations. 5. Peripheral vascular disease status post left BKA/diabetes mellitus/coronary artery disease Complicates care, management, recovery and prognosis. Continue supportive measures as noted above. This note was generated with [facility] dictation software. It may contain incorrect words, spelling, and punctuation that were not noted in checking the note before signing. Subjective Subjective The patient was seen and examined at the bedside this morning. Events from the last 24 hours have been reviewed. The patient is currently afebrile, hemodynamically stable and maintaining appropriate oxygen saturations on 2 L/min via nasal cannula. The patient is certainly more alert today, but remains confused and disoriented. He once again tolerated dialysis. He is currently documented to be overall net +5.3 L for the hospitalization. Objective Data Objective Data The patient's most recent lab work, culture data and imaging studies have all been personally reviewed. Pleural fluid dated February 06 demonstrated no growth to date. Vital Signs: Vital Signs Temp Pulse Resp BP Pulse Ox 97.4 F L 73 15 111/52 L 99 02/14/22 09:35 02/14/22 09:35 02/14/22 09:35 02/14/22 09:35 02/14/22 09:35 Oxygen Flow Rate (L/min) [4] 4 Oxygen Flow Rate (L/min) [3] 4 Oxygen Flow Rate (L/min) [2] 4 Oxygen Flow Rate (L/min) 1 Oxygen Delivery Method [3] Nasal Cannula Oxygen Delivery Method [2] Nasal Cannula Oxygen Delivery Method [1 ( Room Air Initial Baseline)] Oxygen Delivery Method Nasal Cannula Weight: 70.9 kg Body Mass Index (BMI) 23.8 Intake & Output: Intake and Output for Last 24 Hours 02/12/22 02/13/22 02/14/22 23:59 23:59 23:59 Intake Total 1005 / 1005 520 / 520 455 / 455 Output Total 0 / 0 0 / 0 Balance 1005 / 1005 520 / 520 455 / 455 Lab / Micro Data Attestation: I reviewed the patient's lab results. Result Diagrams: 02/14/22 06:00 02/14/22 06:00 Labs: Laboratory Results - last 24 hr 02/13/22 14:30: Hgb 9.1 L, Hct 29.6 L 02/13/22 14:30: Sodium 136, Potassium 3.9, Chloride 99, Carbon Dioxide 23.0, Anion Gap 14, BUN 37 H, Creatinine 3.25 H, Estim Creat Clear Calc 17.83, Est GFR (MDRD) Af Amer 24 L, Est GFR (MDRD) Non-Af 20 L, BUN/Creatinine Ratio 11.4, Glucose 202 H, Calcium 7.9 L, Total Bilirubin 0.60, AST 110 H, ALT 7 L, Alkaline Phosphatase 98, Total Protein 6.9, Albumin 2.1 L, Globulin 4.8 H, Albumin/Globulin Ratio 0.4 L 02/13/22 14:30: Ammonia 34.0 H 02/13/22 17:57: POC Glucose 248 H 02/13/22 21:45: POC Glucose 277 H 02/14/22 06:00: WBC 11.3 H, RBC 2.91 L, Hgb 8.0 L, Hct 26.8 L, MCV 92.1, MCH 27.5, MCHC 29.9 L, RDW Std Deviation 60.5 H, RDW Coeff of Janel 18.1 H, Plt Count 263, MPV 10.2, Immature Gran % (Auto) 1.300 H, Neut % (Auto) 79.2 H, Lymph % (Auto) 3.0 L, [place] % (Auto) 16.2 H, Eos % (Auto) 0.1, Baso % (Auto) 0.2, Absolute Neuts (auto) 8.9 H, Absolute Lymphs (auto) 0.34 L, Nucleated RBC % 0.2, Diff Path Review March foll, Anisocytosis 1+ 02/14/22 06:00: Sodium 132 L, Potassium 4.3, Chloride 100, Carbon Dioxide 16.0 L, BUN 58 H, Creatinine 4.38 H, Estim Creat Clear Calc 13.23, Est GFR (MDRD) Af Amer 17 L, Est GFR (MDRD) Non-Af 14 L, BUN/Creatinine Ratio 13.2, Glucose 322 H, Calcium 7.9 L, Phosphorus 6.1 H, Albumin 1.9 L 02/14/22 06:45: POC Glucose 332 H 02/14/22 11:12: POC Glucose 135 H Micro: Microbiology 02/13/22 17:00 Stool Stool Occult Blood (LEVI) - Final Occult Blood Positive 02/06/22 13:45 Fluid - Thoracentesis Fluid Gram Stain - Final 02/06/22 13:45 Fluid - Thoracentesis Fluid Body Fluid Culture - Final Culture exhibits no growth. 02/06/22 13:45 Fluid - Thoracentesis Fluid Anaerobic Culture - Final No growth in 5 days. ABG Data ABG results: ABG 02/13/22 16:31 Specimen Type ART Sample Site R Radial pH 7.37 Bicarbonate Actual 21.0 L Total CO2 22 Base Excess -4 L O2 Saturation 99 ABG pCO2 36.0 ABG pO2 119 H Price Test Positive O2 Delivery Device Cannula Liter Flow 3.0 Radiography Diagnostic Testing: Radiology Impression Chest X-Ray 02/13/22 14:00 IMPRESSION: There is a left pleural effusion. Left infiltrate Electronically Signed: Sebastian Edwards MD at 17:36 EDT , Physical Exam Const alert Constitutional Narrative: is present at the bedside. General Appearance: ill appearing Orientation / Consciousness: confused and disoriented HEENT normocephalic and head/scalp atraumatic Eyes PERRL and EOMs intact bilaterally Neck supple General: trachea midline Chest inspection of chest normal Resp Auscultation: diminished lung sounds Cardio regular rate and regular rhythm GI normal to inspection, nondistended, normoactive bowel sounds Extremity General Extremity: amputation; Negative for clubbing or edema Skin no rashes or lesions noted Neuro CN's II-XII intact bilaterally and moves all extremities Psych Psych Narrative: Intermittently restless. Charges/Coding Visit Charges Inpatient E&M: 33294 Subs Hosp L2
[2022-02-14] MEDS: BRIMONIDINE 0.2% 5ML BOTTLE 1 DRP LEFT EYE ×2 (13:21→21:37)
[2022-02-14 13:28] LABS: Pathologist Review Reviewed
--- NOTE | 2022-02-14 13:29 | PN.HOSP_ITS ---
Documented by User: Lei BULLARD 02/14/22 13:46 Subjective Subjective Patient is a 77-year-old male lying in bed, alert to self only. Patient's confusion has been transient since yesterday, family reports that after dialysis yesterday he was very alert and oriented, now he is less so. Was able to squee ze hand when asked to. Objective Data Objective Data Vital Signs: Vital Signs Temp Pulse Resp BP Pulse Ox 97.4 F L 73 15 111/52 L 99 02/14/22 09:35 02/14/22 09:35 02/14/22 09:35 02/14/22 09:35 02/14/22 09:35 Oxygen Flow Rate (L/min) [4] 4 Oxygen Flow Rate (L/min) [3] 4 Oxygen Flow Rate (L/min) [2] 4 Oxygen Flow Rate (L/min) 1 Oxygen Delivery Method [3] Nasal Cannula Oxygen Delivery Method [2] Nasal Cannula Oxygen Delivery Method [1 ( Room Air Initial Baseline)] Oxygen Delivery Method Nasal Cannula Weight: 156 lb 4.924 oz Body Mass Index (BMI) 23.8 Intake & Output: Intake and Output for Last 24 Hours 02/12/22 02/13/22 02/14/22 23:59 23:59 23:59 Intake Total 1005 / 1005 520 / 520 455 / 455 Output Total 0 / 0 0 / 0 Balance 1005 / 1005 520 / 520 455 / 455 Lab / Micro Data Result Diagrams: 02/14/22 06:00 02/14/22 06:00 Labs: Laboratory Results - last 24 hr 02/13/22 14:30: Hgb 9.1 L, Hct 29.6 L 02/13/22 14:30: Sodium 136, Potassium 3.9, Chloride 99, Carbon Dioxide 23.0, Anion Gap 14, BUN 37 H, Creatinine 3.25 H, Estim Creat Clear Calc 17.83, Est GFR (MDRD) Af Amer 24 L, Est GFR (MDRD) Non-Af 20 L, BUN/Creatinine Ratio 11.4, Glucose 202 H, Calcium 7.9 L, Total Bilirubin 0.60, AST 110 H, ALT 7 L, Alkaline Phosphatase 98, Total Protein 6.9, Albumin 2.1 L, Globulin 4.8 H, Albumin/Globulin Ratio 0.4 L 02/13/22 14:30: Ammonia 34.0 H 02/13/22 17:57: POC Glucose 248 H 02/13/22 21:45: POC Glucose 277 H 02/14/22 06:00: WBC 11.3 H, RBC 2.91 L, Hgb 8.0 L, Hct 26.8 L, MCV 92.1, MCH 27.5, MCHC 29.9 L, RDW Std Deviation 60.5 H, RDW Coeff of Janel 18.1 H, Plt Count 263, MPV 10.2, Immature Gran % (Auto) 1.300 H, Neut % (Auto) 79.2 H, Lymph % (Auto) 3.0 L, [place] % (Auto) 16.2 H, Eos % (Auto) 0.1, Baso % (Auto) 0.2, Absolute Neuts (auto) 8.9 H, Absolute Lymphs (auto) 0.34 L, Nucleated RBC % 0.2, Diff Path Review Reviewed, Anisocytosis 1+ 02/14/22 06:00: Sodium 132 L, Potassium 4.3, Chloride 100, Carbon Dioxide 16.0 L , BUN 58 H, Creatinine 4.38 H, Estim Creat Clear Calc 13.23, Est GFR (MDRD) Af Amer 17 L, Est GFR (MDRD) Non-Af 14 L, BUN/Creatinine Ratio 13.2, Glucose 322 H, Calcium 7.9 L, Phosphorus 6.1 H, Albumin 1.9 L 02/14/22 06:45: POC Glucose 332 H 02/14/22 11:12: POC Glucose 135 H Micro: Microbiology 02/13/22 17:00 Stool Stool Occult Blood (LEVI) - Final Occult Blood Positive 02/06/22 13:45 Fluid - Thoracentesis Fluid Gram Stain - Final 02/06/22 13:45 Fluid - Thoracentesis Fluid Body Fluid Culture - Final Culture exhibits no growth. 02/06/22 13:45 Fluid - Thoracentesis Fluid Anaerobic Culture - Final No growth in 5 days. ABG Data ABG results: ABG 02/13/22 16:31 Specimen Type ART Sample Site R Radial pH 7.37 Bicarbonate Actual 21.0 L Total CO2 22 Base Excess -4 L O2 Saturation 99 ABG pCO2 36.0 ABG pO2 119 H Rpice Test Positive O2 Delivery Device Cannula Liter Flow 3.0 Radiography Diagnostic Testing: Radiology Impression Chest X-Ray 02/13/22 14:00 IMPRESSION: There is a left pleural effusion. Left infiltrate Electronically Signed: Sebastian Edwards MD at 17:36 EDT , Physical Exam Const alert Orientation / Consciousness: confused, disoriented and lethargic HEENT head/scalp atraumatic and moist oral mucous membranes Head and Scalp: normocephalic Eyes PERRL and conjunctivae normal Neck no lymphadenopathy, supple and no JVD Resp normal respiratory effort, no retractions and no use of accessory muscles Cardio regular rate, regular rhythm and no JVD GI normal to inspection, nondistended, normoactive bowel sounds Extremity normal to inspection Skin no rashes or lesions noted Neuro CN's II-XII intact bilaterally Psych affect normal Assessment & Plan Assessment/Plan (1) Encephalopathy: (2) Ileus: (3) Dry gangrene: (4) Pleural effusion, transudate: PLAN: Day 11 Discharge planning: Plan is to discharge to SNF when medically ready. 1) acute metabolic encephalopathy Patient with transient postoperative encephalopathy, likely multifactorial. Brain CT was unremarkable, patient does not appear to be acidotic according to ABG. Patient's ammonia level is only mildly elevated above normal limits. Patient cephalopathy did improve after dialysis yesterday, although patient is less interactive according to family. We will continue with dialysis, antibiotics and IV PPI. 2) anemia Down from yesterday, currently 8.0. We will continue to monitor and transfuse if hemoglobin falls less than 7. Continue with IV PPI. 3) chronic hypoxic respiratory secondary to COPD and transudate of effusion with pulmonary nodule. Status post thoracentesis, pleural fluid was transudative by lights criteria. Continue hemodialysis for appropriate diuresis, continue bronchodilator therapy and monitor pulmonary nodules as an outpatient. 4) ESRD Nephrology following, dialyzing today. 5) acute on chronic combined heart failure According to last echocardiogram patient with EF of 40% and stage I diastolic dysfunction. 6) DM2 Continue Accu-Cheks assigned scale insulin. DVT prophylaxis - not indicated due to #2. Patient seen by Lei Arzate PA-C, under the supervision of Dr. Syed. Documented by User: Dr. Tacho Syed MD 02/14/22 14:48 Objective Data Lab / Micro Data Result Diagrams: 02/14/22 06:00 02/14/22 06:00 Assessment & Plan Addt'l Comments This patient was seen in conjunction with Lei Arzate PA-C. I have independently interviewed and examined the patient and reviewed pertinent historical, laboratory, and other data. Please refer to Lei Arzate PA-C's note for details of this patient's presentation, findings, and recommendations. I have reviewed Lei Arzate PA-C's note and concur with documented findings. In brief, patient is a 77-year-old gentleman with multiple comorbidities including end-stage renal disease on hemodialysis admitted with acute on chronic hypoxic respiratory failure attributed to CHF with reduced ejection fraction superimposed on COPD with fibrotic lung disease as well as COVID 19 in August 13. Patient hospital stay complicated by worsening gangrene involving the left lower extremity for which patient underwent Left transtibial below-knee amputation on 02/09/2022. Hospital stay subsequently complicated by significant delirium Physical Examination: GENERAL: In no apparent distress but delirious HEENT: Atraumatic; EYES; Anicteric, Normal Conjunctiva NECK; supple, normal thyroid, RESPIRATORY: Diminished to auscultation CARDIOVASCULAR: Regular S1 S2, GI: soft, normoactive bowel sounds, : No Renal angle tenderness; EXTREMITIES: Left BKA MUSCULOSKELETAL: no muscle wasting NEURO: Awake; no lateralizing signs. SKIN: No Rash PSYCH; delirious Assessment: 1. Acute metabolic encephalopathy 2. Left large transudative pleural effusion status post thoracocentesis 3. Status post transtibial below-knee amputation on 01/30/2022 4. End-stage renal disease on hemodialysis 5. Acute on chronic hypoxic respiratory failure 6. COVID 19 pneumonia in August 2021 with subsequent pulmonary fibrosis 7. Diabetes mellitus type 2 8. Paroxysmal A. fib 9. Acute on chronic congestive heart failure with reduced ejection fraction 10. Right upper lobe lung mass 11. Anemia of chronic disorder 12. Peripheral vascular disease 13. Coronary artery disease 14. DVT prophylaxis Recommendations: 1. I have discussed the results of my overview and impressions with the patient 2. Options for management were reviewed Total time spent by myself and the advanced practice practitioner evaluating patient, reviewing labs, subsequent management decisions, discussion with mary ann t as well as other providers 40 minutes ( 25 of which was spent by myself) Charges/Coding Visit Charges Inpatient E&M: 74820 Subs Hosp L3
[2022-02-14] MEDS: Timolol 0.5% 5ML OPTH.BTL 1 DRP OPHTHALMIC (15:09)
[2022-02-14] MEDS: Acetaminophen 650 MG Suppository RC (18:09)
[2022-02-14 18:31] LABS: Bedside Glucose 210 mg/dL (74-106)
[2022-02-14] MEDS: Latanoprost 0.005% 1 Bottle 1 DRP OPHTHALMIC (21:37)
[2022-02-14] MEDS: Heparin Injection (Vial) 5,000 UNIT/ML VIAL 5000 UNIT SC (22:11)
[2022-02-14] MEDS: Insulin Glargine-YFGN 100 UNIT/ML Pen 15 UNIT SC (22:17)
[2022-02-14 22:40] LABS: Bedside Glucose 146 mg/dL (74-106)
[2022-02-15] VITALS (14 sets, daily range): BP systolic 103–128; BP diastolic 42–56; PULSE 65–99; RESP 18–30; TEMP 36.4–37.2; O2SAT 94–100
[2022-02-15] MEDS: Insulin Lispro 100 UNIT/ML INSULN.PEN SC ×3 (00:27→17:58)
[2022-02-15 00:41] LABS: Bedside Glucose 221 mg/dL (74-106)
--- NOTE | 2022-02-15 03:34 | CPS ---
An attempt was made by RT to place the patient on BIPAP at this time for increased work of breathing and complaints of shortness of breath with coarse breath sounds bilaterally. However, the patient remains agitated and refusing therapies at this time so he did not leave the mask on. Patient was then placed back on his nasal cannula at 2 liters with a peripheral sat of 99%. Patient also remains confused and unaware of where he is and who is around him.
[2022-02-15] MEDS: 0.9% Saline Lock 10 ML Syringe IV ×3 (04:25→15:18)
[2022-02-15] MEDS: Haloperidol Lactate 5 MG/ML Vial 1 MG IV (04:25)
[2022-02-15 05:42] LABS: Absolute Lymphocyte Count 0.38 X10^3/uL (0.83-4.51); Absolute Neutrophil Count 8.2 X10^3/uL (2.0-7.7); Basophil# 0.02 X10^3/uL; Basophil% 0.2 % (0-1); Eosinophil# 0.07 X10^3/uL; Eosinophils% 0.7 % (0-5); Hemoglobin 8.4 g/dL (13.0-16.5); Lymphocyte # 0.38 X10^3/ul (0.83-4.51); Lymphocyte % 3.7 % (19-41); Mean Corpuscular Hgb 27.3 pg (27.0-32.0); Mean Corpuscular Volume 90.9 fL (80-94); Mean Platelet Vol. 9.9 fl (6.2-12.0); Monocyte# 1.38 X10^3/uL; Monocyte% 13.6 % (0-10); NRBC Flagged by Analyzer 0 % (0-5); Neutrophil # 8.16 X10^3/uL (2.7-7.7); Neutrophil % 80.4 % (47-70); POSITIVE DIFFERENTIAL YES; Platelet Count 230 K/mm3 (150-450); RBC Distribution Width CV 17.6 % (11.6-14.6); RBC Distribution Width SD 58.5 fl (35.1-43.9); Red Blood Count 3.08 M/mm3 (4.6-6.2); White Blood Count 10.2 K/mm3 (4.4-11.0)
[2022-02-15] MEDS: Menthol/Lanolin/Calamine/Znox 113 GM Tube 1 APPLIC TOPICAL ×3 (05:50→22:36)
[2022-02-15] MEDS: Heparin Injection (Vial) 5,000 UNIT/ML VIAL 5000 UNIT SC ×3 (05:55→22:44)
[2022-02-15 06:01] LABS: Differential Indicated SCAN CRITERIA MET
[2022-02-15] MEDS: metroNIDAZOLE 500 MG/100 ML BAG 100 MG IV ×3 (06:05→22:21)
[2022-02-15 06:10] LABS: Anisocytosis 1+; Differential Comment SCANNED
[2022-02-15 06:19] LABS: Albumin, Serum 1.9 g/dL (3.2-5.0); BUN 34 mg/dL (7-18); BUN/Creat Ratio 10.9 RATIO (10-20); Calcium,Total 8.3 mg/dL (8.5-10.1); Chloride 103 mmol/L (98-107); Creatinine, Serum 3.13 mg/dL (0.70-1.30); EST Glomerular Filtration Rate 21 mL/min (>60); Est Glom Filt Rate - Afr Amer 25 mL/min (>60); Estimated Creatinine Clearance 18.51 ml/min; Glucose 149 mg/dL (74-106); Phosphorus 3.1 mg/dL (2.5-4.9); Potassium 3.4 mmol/L (3.5-5.1); Sodium Level 138 mmol/L (136-145)
[2022-02-15 06:50] LABS: Bedside Glucose 146 mg/dL (74-106)
[2022-02-15] MEDS: Budesonide Respules 0.5 MG/2 ML AMPUL.NEB. INHALATION (06:55)
[2022-02-15] MEDS: Ipratropium/Albuterol Sulfate 3 ML AMPUL.NEB INHALATION ×4 (06:55→19:26)
--- NOTE | 2022-02-15 09:07 | WOUNDNOTE ---
wound photo: sacrum
--- NOTE | 2022-02-15 09:08 | WOUNDNOTE ---
skin photo: right great toe
--- NOTE | 2022-02-15 09:08 | WOUNDNOTE ---
skin photo: right great toe
--- NOTE | 2022-02-15 09:09 | WOUNDNOTE ---
wound photo: right heel
--- NOTE | 2022-02-15 09:34 | PCM.PN.REN ---
Subjective Subjective Resting quietly. Alert name. Received haldol early this am. Objective Data Objective Data Vital Signs: Vital Signs Temp Pulse Resp BP Pulse Ox 98.8 F 82 19 H 112/49 L 97 02/15/22 03:25 02/15/22 07:22 02/15/22 07:22 02/15/22 03:25 02/15/22 07:22 Oxygen Flow Rate (L/min) [4] 4 Oxygen Flow Rate (L/min) [3] 4 Oxygen Flow Rate (L/min) [2] 4 Oxygen Flow Rate (L/min) 2 Oxygen Delivery Method [3] Nasal Cannula Oxygen Delivery Method [2] Nasal Cannula Oxygen Delivery Method [1 ( Room Air Initial Baseline)] Oxygen Delivery Method Nasal Cannula Weight: 70.2 kg Body Mass Index (BMI) 23.8 Intake & Output: Intake and Output for Last 24 Hours 02/13/22 02/14/22 02/15/22 23:59 23:59 23:59 Intake Total 520 / 520 1180.5 / 1180.5 100 / 100 Output Total 0 / 0 Balance 520 / 520 1180.5 / 1180.5 100 / 100 Lab / Micro Data Result Diagrams: 02/15/22 05:25 02/15/22 05:25 Labs: Laboratory Results - last 24 hr 02/14/22 06:00: Diff Path Review Reviewed 02/14/22 11:12: POC Glucose 135 H 02/14/22 18:17: POC Glucose 210 H 02/14/22 22:15: POC Glucose 146 H 02/15/22 00:25: POC Glucose 221 H 02/15/22 05:25: WBC 10.2, RBC 3.08 L, Hgb 8.4 L, Hct 28.0 L, MCV 90.9, MCH 27.3, MCHC 30.0 L, RDW Std Deviation 58.5 H, RDW Coeff of Janel 17.6 H, Plt Count 230, MPV 9.9, Immature Gran % (Auto) 1.400 H, Neut % (Auto) 80.4 H, Lymph % (Auto) 3.7 L, [place] % (Auto) 13.6 H, Eos % (Auto) 0.7, Baso % (Auto) 0.2, Absolute Neuts (auto) 8.2 H, Absolute Lymphs (auto) 0.38 L, Nucleated RBC % 0, Differential Comment SCANNED, Anisocytosis 1+ 02/15/22 05:25: Sodium 138, Potassium 3.4 L, Chloride 103, Carbon Dioxide 23.0, BUN 34 H, Creatinine 3.13 H, Estim Creat Clear Calc 18.51, Est GFR (MDRD) Af Amer 25 L, Est GFR (MDRD) Non-Af 21 L, BUN/Creatinine Ratio 10.9, Glucose 149 H, Calcium 8.3 L, Phosphorus 3.1, Albumin 1.9 L 02/15/22 05:53: POC Glucose 146 H Micro: Microbiology 02/13/22 17:00 Stool Stool Occult Blood (LEVI) - Final Occult Blood Positive 02/06/22 13:45 Fluid - Thoracentesis Fluid Gram Stain - Final 02/06/22 13:45 Fluid - Thoracentesis Fluid Body Fluid Culture - Final Culture exhibits no growth. 02/06/22 13:45 Fluid - Thoracentesis Fluid Anaerobic Culture - Final No growth in 5 days. Physical Exam Narrative General: Alert to name HEENT: Normocephalic, atraumatic. Neck: Supple, no JVD. Heart: Normal S1, S2. There is a 3/6 systolic murmur. No rubs. Lungs: clear anteriorly Abdomen: Normal bowel sounds, soft Extremity: No edema right leg. Status post left BKA, cast intact AVF left UA +thrill/bruit Assessment & Plan Assessment/Plan (1) ESRD (end stage renal disease) on dialysis: PLAN: -Dialyzes on MWF schedule at [facility] [place]. At time of discharge patient will have a new lowered EDW -Patient dialyzed on 02/13 with UF ~300ml and 02/14 with UF ~800ml. No acute indication for FAUCET POLISHER today. Will evaluate for UF/HD needs tomorrow - K+ 3.4, patient not eating, K+ replaced by primary team -The patient does not appear to be significantly volume overloaded. Oral intake has been very poor. Now NPO per speech recommendations. - bps low, off antihypertensives and started on midodrine, not taking midodrine now but Bps have improved. (2) Anemia: PLAN: -The patient receives long-acting LAUREL at [facility] center. Last received 02/03. -Hemoglobin is low but stable. Hgb post HD 02/13 9.1. Hgb today 8.4. - stool OB + x1 (3) Peripheral vascular occlusive disease: PLAN: -s/p Left BKA 02/09. - now has ischemic right toes. To discuss with family overall goals of care as patient may need to be transferred for further evaluation and treatment for ischemic right toes (4) Dyspnea: PLAN: -Likely multifactorial. The patient has COPD and recent Covid 19 infection. The patient also has known chronic left pleural effusion. Reviewed CXR from 02/13 which showed left pleural effusion and left infiltrate - CT head no acute process -There is likely some component of volume overload with his left pleural effusion. - seen by surgery, KUB showed normal bowel pattern. Patient had BMs. To be started on diet if mentation improves. Surgery signed off. - started on azithromycin, cefepime and flagyl. Also on PPI gtt. - respiratory status has improved. Bps have improved. Once able to take meds recommend to continue Midodrine with holding parameters. Likely initially does not need renal diet restrictions. - ammonia level 34, received lactulose x1 -discussed with Dr. Syed
[2022-02-15] MEDS: Potassium Chloride 10mEq/100mL 10 MEQ/100 ML IV.SOLN. 100 MEQ IV BOLUS ×2 (10:11→11:39)
[2022-02-15] MEDS: Timolol 0.5% 5ML OPTH.BTL 1 DRP OPHTHALMIC (10:14)
[2022-02-15] MEDS: BRIMONIDINE 0.2% 5ML BOTTLE 1 DRP LEFT EYE ×2 (10:15→22:35)
--- NOTE | 2022-02-15 10:22 | PN.CC_ITS ---
Assessment & Plan Assessment/Plan (1) Encephalopathy: PLAN: RECOMMENDATIONS: 1. Wean supplemental oxygen as tolerated. 2. Continue BiPAP support nightly if tolerated by patient. 3. Avoid sedating medications. 4. Continue to monitor H&H daily. Transfuse if hemoglobin drops below 7 g/dL. 5. Continue PPI therapy. IMPRESSIONS: 1. Encephalopathy I do suspect that the patient's encephalopathy, which appears to have developed following his lower extremity amputation at the end of January is likely secondary to underlying metabolic derangements. CT head was unremarkable. ABG did not reveal evidence of CO2 retention. The patient continues to receive dialysis support per nephrology recommendations. Plan to continue current supportive measures. Avoid sedating medications. 2. Worsening anemia The patient does have some anemia of chronic disease. However, his hemoglobin is lower than what is normal for him. Continue to monitor H&H daily. If hemoglobin is less than 7 g/dL, plan to transfuse packed red blood cells. Agree with continuing PPI therapy. 3. Chronic hypoxic respiratory failure secondary to COPD with new transudate effusion/pulmonary nodule Clinical suspicion for shortness of breath secondary to pleural effusion in the setting of relatively advanced COPD. High clinical suspicion for renal or cardiac etiology for pleural effusion. Continue hemodialysis support per nephrology recommendations. Continue bronchodilator therapy. Pulmonary nodules can be monitored longitudinally on an outpatient basis. 4. End-stage renal disease on hemodialysis Continue supportive care per nephrology recommendations. 5. Peripheral vascular disease status post left BKA/diabetes mellitus/coronary artery disease Complicates care, management, recovery and prognosis. Continue supportive measures as noted above. This note was generated with [employer] dictation software. It may contain incorrect words, spelling, and punctuation that were not noted in checking the note before signing. Subjective Subjective The patient was seen and examined at the bedside this morning. Events from the last 24 hours have been reviewed. The patient is currently afebrile, hemodynamically stable and maintaining appropriate oxygen saturations on 2 L/min via nasal cannula. The patient is currently documented to be overall net +6.1 L for the hospitalization. Potassium is low at 3.4. Objective Data Objective Data The patient's most recent lab work, culture data and imaging studies have all been personally reviewed. Pleural fluid dated February 06 demonstrated no growth to date. Vital Signs: Vital Signs Temp Pulse Resp BP Pulse Ox 98.8 F 82 19 H 112/49 L 97 04/06/22 03:25 02/15/22 07:22 02/15/22 07:22 02/15/22 03:25 02/15/22 07:22 Oxygen Flow Rate (L/min) [4] 4 Oxygen Flow Rate (L/min) [3] 4 Oxygen Flow Rate (L/min) [2] 4 Oxygen Flow Rate (L/min) 2 Oxygen Delivery Method [3] Nasal Cannula Oxygen Delivery Method [2] Nasal Cannula Oxygen Delivery Method [1 ( Room Air Initial Baseline)] Oxygen Delivery Method Nasal Cannula Weight: 70.2 kg Body Mass Index (BMI) 23.8 Intake & Output: Intake and Output for Last 24 Hours 02/13/22 02/14/22 02/15/22 23:59 23:59 23:59 Intake Total 520 / 520 1180.5 / 1180.5 100 / 100 Output Total 0 / 0 Balance 520 / 520 1180.5 / 1180.5 100 / 100 Lab / Micro Data Attestation: I reviewed the patient's lab results. Result Diagrams: 02/16/22 05:21 02/16/22 05:21 Labs: Laboratory Results - last 24 hr 02/14/22 06:00: Diff Path Review Reviewed 02/14/22 11:12: POC Glucose 135 H 02/14/22 18:17: POC Glucose 210 H 02/14/22 22:15: POC Glucose 146 H 02/15/22 00:25: POC Glucose 221 H 02/15/22 05:25: WBC 10.2, RBC 3.08 L, Hgb 8.4 L, Hct 28.0 L, MCV 90.9, MCH 27.3, MCHC 30.0 L, RDW Std Deviation 58.5 H, RDW Coeff of Janel 17.6 H, Plt Count 230, MPV 9.9, Immature Gran % (Auto) 1.400 H, Neut % (Auto) 80.4 H, Lymph % (Auto) 3.7 L, [place] % (Auto) 13.6 H, Eos % (Auto) 0.7, Baso % (Auto) 0.2, Absolute Neuts (auto) 8.2 H, Absolute Lymphs (auto) 0.38 L, Nucleated RBC % 0, Differential Comment SCANNED, Anisocytosis 1+ 02/15/22 05:25: Sodium 138, Potassium 3.4 L, Chloride 103, Carbon Dioxide 23.0, BUN 34 H, Creatinine 3.13 H, Estim Creat Clear Calc 18.51, Est GFR (MDRD) Af Amer 25 L, Est GFR (MDRD) Non-Af 21 L, BUN/Creatinine Ratio 10.9, Glucose 149 H, Calcium 8.3 L, Phosphorus 3.1, Albumin 1.9 L 02/15/22 05:53: POC Glucose 146 H Micro: Microbiology 02/13/22 17:00 Stool Stool Occult Blood (LEVI) - Final Occult Blood Positive 02/06/22 13:45 Fluid - Thoracentesis Fluid Gram Stain - Final 02/06/22 13:45 Fluid - Thoracentesis Fluid Body Fluid Culture - Final Culture exhibits no growth. 02/06/22 13:45 Fluid - Thoracentesis Fluid Anaerobic Culture - Final No growth in 5 days. Physical Exam Const alert General Appearance: ill appearing Orientation / Consciousness: confused and disoriented HEENT normocephalic and head/scalp atraumatic Eyes PERRL and EOMs intact bilaterally Neck supple General: trachea midline Chest inspection of chest normal Resp Auscultation: diminished lung sounds Cardio regular rate and regular rhythm GI normal to inspection, nondistended, normoactive bowel sounds Extremity General Extremity: amputation; Negative for clubbing or edema Skin no rashes or lesions noted Neuro CN's II-XII intact bilaterally and moves all extremities Psych Psych Narrative: Intermittently restless. Charges/Coding Visit Charges Inpatient E&M: 59146 Subs Hosp L2
[2022-02-15 11:50] LABS: Bedside Glucose 178 mg/dL (74-106)
--- NOTE | 2022-02-15 14:20 | CASEMGMT ---
Social Work SW met with pt and in room and introduced self and role of SW. Pt is awake and calling out. Not responding appropriately. Pt sitting at bedside. Support provided to pt who is open and willing to talk with SW. Mrs. Massey is adamant that she does not want to discuss hospice care. She states she is aware of what it is and does not feel it is appropriate for pt at this time. SW inquired about SNF placement as pt has been planning on transfer to [facility] when medically ready. Pt confirms that the plan continues to be for [facility] and pt will get dialysis there. Clinical updates faxed to [facility]. SW to continue to follow. Plan: [facility], when medically ready AYALA Dia
--- NOTE | 2022-02-15 15:09 | PN.HOSP_ITS ---
Documented by User: Lei BULLARD 02/15/22 15:21 Subjective Subjective Patient is a 77-year-old male lying in bed, alert and oriented to self. Patient's mentation has more or less been unchanged from yesterday, patient can obey commands but not able to provide much insight into his current condition. Was agitated overnight and given Haldol. Objective Data Objective Data Vital Signs: Vital Signs Temp Pulse Resp BP Pulse Ox 97.5 F L 99 21 H 128/56 H 97 02/15/22 09:25 02/15/22 11:13 02/15/22 11:13 02/15/22 09:25 02/15/22 09:25 Oxygen Flow Rate (L/min) [4] 4 Oxygen Flow Rate (L/min) [3] 4 Oxygen Flow Rate (L/min) [2] 4 Oxygen Flow Rate (L/min) 2 Oxygen Delivery Method [3] Nasal Cannula Oxygen Delivery Method [2] Nasal Cannula Oxygen Delivery Method [1 ( Room Air Initial Baseline)] Oxygen Delivery Method Nasal Cannula Weight: 154 lb 12.232 oz Body Mass Index (BMI) 23.8 Intake & Output: Intake and Output for Last 24 Hours 02/13/22 02/14/22 02/15/22 23:59 23:59 23:59 Intake Total 520 / 520 1180.5 / 1180.5 510 / 510 Output Total 0 / 0 0 / 0 Balance 520 / 520 1180.5 / 1180.5 510 / 510 Lab / Micro Data Result Diagrams: 02/15/22 05:25 02/15/22 05:25 Labs: Laboratory Results - last 24 hr 02/14/22 18:17: POC Glucose 210 H 02/14/22 22:15: POC Glucose 146 H 02/15/22 00:25: POC Glucose 221 H 02/15/22 05:25: WBC 10.2, RBC 3.08 L, Hgb 8.4 L, Hct 28.0 L, MCV 90.9, MCH 27.3, MCHC 30.0 L, RDW Std Deviation 58.5 H, RDW Coeff of Janel 17.6 H, Plt Count 230, MPV 9.9, Immature Gran % (Auto) 1.400 H, Neut % (Auto) 80.4 H, Lymph % (Auto) 3.7 L, [place] % (Auto) 13.6 H, Eos % (Auto) 0.7, Baso % (Auto) 0.2, Absolute Neuts (auto) 8.2 H, Absolute Lymphs (auto) 0.38 L, Nucleated RBC % 0, Differential Comment SCANNED, Anisocytosis 1+ 02/15/22 05:25: Sodium 138, Potassium 3.4 L, Chloride 103, Carbon Dioxide 23.0, BUN 34 H, Creatinine 3.13 H, Estim Creat Clear Calc 18.51, Est GFR (MDRD) Af Amer 25 L, Est GFR (MDRD) Non-Af 21 L, BUN/Creatinine Ratio 10.9, Glucose 149 H, Calcium 8.3 L, Phosphorus 3.1, Albumin 1.9 L 02/15/22 05:53: POC Glucose 146 H 02/15/22 11:42: POC Glucose 178 H Micro: Microbiology 02/13/22 17:00 Stool Stool Occult Blood (LEVI) - Final Occult Blood Positive 02/06/22 13:45 Fluid - Thoracentesis Fluid Gram Stain - Final 02/06/22 13:45 Fluid - Thoracentesis Fluid Body Fluid Culture - Final Culture exhibits no growth. 02/06/22 13:45 Fluid - Thoracentesis Fluid Anaerobic Culture - Final No growth in 5 days. Physical Exam Const alert General Appearance: uncooperative Orientation / Consciousness: confused and disoriented Exam Limitations: altered mental status HEENT head/scalp atraumatic and moist oral mucous membranes Head and Scalp: normocephalic Eyes PERRL, EOMs intact bilaterally and conjunctivae normal Neck no lymphadenopathy, supple and no JVD Resp normal respiratory effort, no retractions and no use of accessory muscles Cardio regular rate, regular rhythm and no JVD GI normal to inspection, nondistended, normoactive bowel sounds Extremity Extremity Narrative: Left below the knee amputation. Right lower extremity: First MTP with noted cyanosis, cyanosis appropriately marked. Skin Skin Narrative: See extremity. Neuro CN's II-XII intact bilaterally Psych affect normal Assessment & Plan Assessment/Plan (1) Encephalopathy: (2) Dry gangrene: (3) ESRD (end stage renal disease) on dialysis: PLAN: Day 12 Discharge planning: Plan is to discharge to SNF when medically ready. Attempted to initiate hospice/palliative care conversation with family, family not interested in hospice or palliative care at this time. 1) acute metabolic encephalopathy Patient with transient postoperative encephalopathy, likely multifactorial. Brain CT was unremarkable, patient does not appear to be acidotic according to ABG. Patient's ammonia level is only mildly elevated above normal limits. Patient cephalopathy did improve after dialysis yesterday, although patient is less interactive according to family. We will continue with dialysis, antibiotics and IV PPI. 2) anemia Down from yesterday, currently 8.4. We will continue to monitor and transfuse if hemoglobin falls less than 7. Continue with IV PPI. 3) chronic hypoxic respiratory secondary to COPD and transudate of effusion with pulmonary nodule. Status post thoracentesis, pleural fluid was transudative by lights criteria. Continue hemodialysis for appropriate diuresis, continue bronchodilator therapy and monitor pulmonary nodules as an outpatient. 4) ESRD Dialyzed on 02/14. Nephrology will continue to follow. 5) peripheral vascular disease Patient now with ischemic right toe with noted cyanosis. Family not interested in a vascular surgery consult or transferring to a tertiary care facility. Alerted family that this could result in possible amputation of the toes or right lower extremity if not appropriately addressed. Patients family acknowledges risks, but feels that it would not be in patient's wishes to pursue any further surgical intervention. Patient's toes appropriately marked. 5) acute on chronic combined heart failure According to last echocardiogram patient with EF of 40% and stage I diastolic dysfunction. 6) DM2 Continue Accu-Cheks assigned scale insulin. DVT prophylaxis - Heparin Patient seen by Lei Arzate PA-C, under the supervision of Dr. Syed. Documented by User: Dr. Tacho Syed MD 02/15/22 15:53 Objective Data Lab / Micro Data Result Diagrams: 02/15/22 05:25 02/15/22 05:25 Assessment & Plan Addt'l Comments This patient was seen in conjunction with Lei Arzate PA-C. I have indep endently interviewed and examined the patient and reviewed pertinent historical, laboratory, and other data. Please refer to Lei Arzate PA-C's note for details of this patient's presentation, findings, and recommendations. I have reviewed Lei Arzate PA-C's note and concur with documented findings. In brief, patient is a 77-year-old gentleman with multiple comorbidities including end-stage renal disease on hemodialysis admitted with acute on chronic hypoxic respiratory failure attributed to CHF with reduced ejection fraction superimposed on COPD with fibrotic lung disease as well as COVID 19 in August 2021. Patient hospital stay complicated by worsening gangrene involving the le ft lower extremity for which patient underwent Left transtibial below-knee amputation on 02/09/2022. Hospital stay subsequently complicated by significant delirium 02/15/2022. Patient was reported to be. Receiving Haldol during the night. Patient has developed new ischemic right big toe. Case discussed with family about possibly transferring to a tertiary care center for vascular surgery evaluation family not in agreement with any transfer at this point. . Family also not ready for any hospice/palliative care discussion at this point. Patient was also seen and assessed by wound care nurse for new decubitus ulcer stage I on the right heel stage II sacral region Physical Examination: GENERAL: In no apparent distress but delirious HEENT: Atraumatic; EYES; Anicteric, Normal Conjunctiva NECK; supple, normal thyroid, RESPIRATORY: Diminished to auscultation CARDIOVASCULAR: Regular S1 S2, GI: soft, normoactive bowel sounds, : No Renal angle tenderness; EXTREMITIES: Left BKA MUSCULOSKELETAL: no muscle wasting NEURO: Awake; no lateralizing signs. SKIN: No Rash PSYCH; delirious Assessment: 1. Acute metabolic encephalopathy 2. Left large transudative pleural effusion status post thoracocentesis 3. Status post transtibial below-knee amputation on 01/30/2022 4. End-stage renal disease on hemodialysis 5. Acute on chronic hypoxic respiratory failure 6. COVID 19 pneumonia in August 2021 with subsequent pulmonary fibrosis 7. Diabetes mellitus type 2 8. Paroxysmal A. fib 9. Acute on chronic congestive heart failure with reduced ejection fraction 10. Right upper lobe lung mass 11. Anemia of chronic disorder 12. Peripheral vascular disease 13. Coronary artery disease 14. DVT prophylaxis 15. Sacral decubitus ulcer stage II Recommendations: 1. I have discussed the results of my overview and impressions with the patient 2. Options for management were reviewed Total time spent by myself and the advanced practice practitioner evaluating patient, reviewing labs, subsequent management decisions, discussion with patient as well as other providers 45 minutes ( 25 of which was spent by myself) Charges/Coding Visit Charges Inpatient E&M: 41578 [facility] Hosp L3
[2022-02-15] MEDS: LORazepam 2 MG/ML Syringe 0.5 MG IV (15:17)
--- NOTE | 2022-02-15 15:25 | PN.ORTHO_ITS ---
Subjective Subjective Patient seen and examined at bedside this afternoon. Significant effusion is still noted. The patient's was at bedside. She states she feels he has been more awake today and has been calling her by her name, which has not been true the last few days. Objective Data Objective Data Vital Signs: Vital Signs Temp Pulse Resp BP Pulse Ox 97.5 F L 82 22 H 128/56 H 97 02/15/22 09:25 02/15/22 15:24 02/15/22 15:24 02/15/22 09:25 02/15/22 09:25 Oxygen Flow Rate (L/min) [4] 4 Oxygen Flow Rate (L/min) [3] 4 Oxygen Flow Rate (L/min) [2] 4 Oxygen Flow Rate (L/min) 2 Oxygen Delivery Method [3] Nasal Cannula Oxygen Delivery Method [2] Nasal Cannula Oxygen Delivery Method [1 ( Room Air Initial Baseline)] Oxygen Delivery Method Nasal Cannula Weight: 154 lb 12.232 oz Body Mass Index (BMI) 23.8 Intake & Output: Intake and Output for Last 24 Hours 02/13/22 02/14/22 02/15/22 23:59 23:59 23:59 Intake Total 520 / 520 1180.5 / 1180.5 510 / 510 Output Total 0 / 0 0 / 0 Balance 520 / 520 1180.5 / 1180.5 510 / 510 Lab / Micro Data Result Diagrams: 02/15/22 05:25 02/15/22 05:25 Labs: Laboratory Results - last 24 hr 02/14/22 18:17: POC Glucose 210 H 02/14/22 22:15: POC Glucose 146 H 02/15/22 00:25: POC Glucose 221 H 02/15/22 05:25: WBC 10.2, RBC 3.08 L, Hgb 8.4 L, Hct 28.0 L, MCV 90.9, MCH 27.3, MCHC 30.0 L, RDW Std Deviation 58.5 H, RDW Coeff of Janel 17.6 H, Plt Count 230, MPV 9.9, Immature Gran % (Auto) 1.400 H, Neut % (Auto) 80.4 H, Lymph % (Auto) 3.7 L, [place] % (Auto) 13.6 H, Eos % (Auto) 0.7, Baso % (Auto) 0.2, Absolute Neuts (auto) 8.2 H, Absolute Lymphs (auto) 0.38 L, Nucleated RBC % 0, Differential Comment SCANNED, Anisocytosis 1+ 02/15/22 05:25: Sodium 138, Potassium 3.4 L, Chloride 103, Carbon Dioxide 23.0, BUN 34 H, Creatinine 3.13 H, Estim Creat Clear Calc 18.51, Est GFR (MDRD) Af Amer 25 L, Est GFR (MDRD) Non-Af 21 L, BUN/Creatinine Ratio 10.9, Glucose 149 H, Calcium 8.3 L, Phosphorus 3.1, Albumin 1.9 L 02/15/22 05:53: POC Glucose 146 H 02/15/22 11:42: POC Glucose 178 H Micro: Microbiology 02/13/22 17:00 Stool Stool Occult Blood (LEVI) - Final Occult Blood Positive 02/06/22 13:45 Fluid - Thoracentesis Fluid Gram Stain - Final 02/06/22 13:45 Fluid - Thoracentesis Fluid Body Fluid Culture - Final Culture exhibits no growth. 02/06/22 13:45 Fluid - Thoracentesis Fluid Anaerobic Culture - Final No growth in 5 days. Physical Exam Narrative General-alert, oriented to person only, appears in no acute distress Left lower extremity-rigid removable dressing in place, subsequently removed. Developing pressure sore noted overlying the anterior patella. Otherwise, dressing clean, dry and intact. Appropriately tender over the BKA stump. No significant knee swelling is noted. Right lower extremity-ischemic great toe at the level of the MTP, slightly cool to touch. Nonpalpable DP or PT pulse. Compartments soft compressible. Wiggles toes on command. Assessment & Plan Assessment/Plan (1) Peripheral vascular occlusive disease: PLAN: POD#6 s/p left BKA - Pain control - Medicine following for medical management - PT/OT -Dry sterile dressing changes daily. Dressing instructions reviewed with nursing. I stressed the importance of padding the anterior patella. I will order a knee immobilizer to prevent a knee flexion contracture. This can be removed for hygiene. - DVT PPX -heparin per primary - Case management - D/C planning Patient also appears to be developing right lower extremity peripheral vascular disease. No history of revascularization attempts. I would recommend vascular surgery consultation.
[2022-02-15 18:05] LABS: Bedside Glucose 210 mg/dL (74-106)
--- NOTE | 2022-02-15 18:33 | NURSING ---
Reviewed charting with Gabriela Massey RN
[2022-02-15] MEDS: Latanoprost 0.005% 1 Bottle 1 DRP OPHTHALMIC (22:34)
[2022-02-15] MEDS: Insulin Glargine-YFGN 100 UNIT/ML Pen 15 UNIT SC (22:42)
[2022-02-15 23:40] LABS: Bedside Glucose 180 mg/dL (74-106)
[2022-02-16] VITALS (15 sets, daily range): BP systolic 102–138; BP diastolic 54–85; PULSE 71–94; RESP 20–30; TEMP 36.1–37.2; O2SAT 97–100
[2022-02-16] MEDS: Insulin Lispro 100 UNIT/ML INSULN.PEN SC ×4 (00:34→22:29)
[2022-02-16 00:50] LABS: Bedside Glucose 243 mg/dL (74-106)
[2022-02-16] MEDS: Ipratropium/Albuterol Sulfate 3 ML AMPUL.NEB INHALATION ×5 (03:17→23:33)
[2022-02-16 05:40] LABS: Absolute Lymphocyte Count 0.51 X10^3/uL (0.83-4.51); Absolute Neutrophil Count 11.4 X10^3/uL (2.0-7.7); Basophil# 0.04 X10^3/uL; Basophil% 0.3 % (0-1); Eosinophil# 0.03 X10^3/uL; Eosinophils% 0.2 % (0-5); Hematocrit 28.2 % (40-54); Hemoglobin 8.4 g/dL (13.0-16.5); Lymphocyte # 0.51 X10^3/ul (0.83-4.51); Lymphocyte % 3.7 % (19-41); Mean Corp Hgb Conc 29.8 g/dL (32-36); Mean Corpuscular Hgb 27.1 pg (27.0-32.0); Mean Platelet Vol. 10.3 fl (6.2-12.0); Monocyte# 1.53 X10^3/uL; Monocyte% 11.2 % (0-10); NRBC Flagged by Analyzer 0 % (0-5); Neutrophil % 83.2 % (47-70); POSITIVE DIFFERENTIAL YES; Platelet Count 239 K/mm3 (150-450); RBC Distribution Width CV 17.7 % (11.6-14.6); RBC Distribution Width SD 58.8 fl (35.1-43.9); White Blood Count 13.7 K/mm3 (4.4-11.0)
[2022-02-16 05:46] LABS: Differential Indicated SCAN CRITERIA MET
[2022-02-16 05:55] LABS: Bedside Glucose 173 mg/dL (74-106)
[2022-02-16 06:04] LABS: BUN 50 mg/dL (7-18); BUN/Creat Ratio 10.7 RATIO (10-20); Calcium,Total 7.7 mg/dL (8.5-10.1); Chloride 105 mmol/L (98-107); Creatinine, Serum 4.66 mg/dL (0.70-1.30); EST Glomerular Filtration Rate 13 mL/min (>60); Est Glom Filt Rate - Afr Amer 16 mL/min (>60); Estimated Creatinine Clearance 12.44 ml/min; Glucose 192 mg/dL (74-106); Phosphorus 3.8 mg/dL (2.5-4.9); Potassium 3.9 mmol/L (3.5-5.1); Sodium Level 138 mmol/L (136-145)
[2022-02-16] MEDS: Menthol/Lanolin/Calamine/Znox 113 GM Tube 1 APPLIC TOPICAL ×3 (06:04→22:12)
[2022-02-16] MEDS: Heparin Injection (Vial) 5,000 UNIT/ML VIAL 5000 UNIT SC ×3 (06:05→22:14)
[2022-02-16] MEDS: metroNIDAZOLE 500 MG/100 ML BAG 100 MG IV (06:05)
[2022-02-16 06:46] LABS: Anisocytosis 1+
[2022-02-16 06:47] LABS: Differential Comment SCANNED
[2022-02-16] MEDS: Furosemide 40 MG/4 ML Vial IV (07:02)
[2022-02-16] MEDS: 0.9% Saline Lock 10 ML Syringe IV ×2 (07:05→22:08)
[2022-02-16] MEDS: Budesonide Respules 0.5 MG/2 ML AMPUL.NEB. INHALATION ×2 (07:26→19:14)
[2022-02-16] MEDS: Timolol 0.5% 5ML OPTH.BTL 1 DRP OPHTHALMIC (09:07)
[2022-02-16] MEDS: BRIMONIDINE 0.2% 5ML BOTTLE 1 DRP LEFT EYE ×2 (09:08→22:12)
--- NOTE | 2022-02-16 09:33 | PN.CC_ITS ---
Assessment & Plan Assessment/Plan (1) Encephalopathy: PLAN: RECOMMENDATIONS: 1. Wean supplemental oxygen as tolerated. 2. Continue BiPAP support nightly if tolerated by patient. 3. Avoid sedating medications. 4. Continue to monitor H&H daily. Transfuse if hemoglobin drops below 7 g/dL. 5. Continue PPI therapy. 6. Plan for swallow evaluation tomorrow morning. 7. If the patient does not pass a swallow evaluation, alternative means of nutritional support will need to be considered, including PEG tube. IMPRESSIONS: 1. Encephalopathy I do suspect that the patient's encephalopathy, which appears to have developed following his lower extremity amputation at the end of January is likely secondary to underlying metabolic derangements. CT head was unremarkable. ABG did not reveal evidence of CO2 retention. The patient continues to receive dialysis support per nephrology recommendations. Plan to continue current supportive me asures. Avoid sedating medications. 2. Anemia The patient does have some anemia of chronic disease. However, his hemoglobin is lower than what is normal for him. Continue to monitor H&H daily. If hemoglobin is less than 7 g/dL, plan to transfuse packed red blood cells. Agree with continuing PPI therapy. 3. Chronic hypoxic respiratory failure secondary to COPD with new transudate effusion/pulmonary nodule Clinical suspicion for shortness of breath secondary to pleural effusion in the setting of relatively advanced COPD. High clinical suspicion for renal or cardiac etiology for pleural effusion. Continue hemodialysis support per n ephrology recommendations. Continue bronchodilator therapy. Pulmonary nodules can be monitored longitudinally on an outpatient basis. 4. End-stage renal disease on hemodialysis Continue supportive care per nephrology recommendations. 5. Peripheral vascular disease status post left BKA/diabetes mellitus/coronary artery disease Complicates care, management, recovery and prognosis. Continue supportive measures as noted above. This note was generated with [place] ([employer]) dictation software. It may contain incorrect words, spelling, and punctuation that were not noted in checking the note before signing. Subjective Subjective The patient was seen and examined at the bedside this morning. Events from the last 24 hours have been reviewed. The patient is currently afebrile, hemodynamically stable and maintaining appropriate oxygen saturations on 2 L/min via nasal cannula. The patient remains confused and altered. He is due for dialysis today. The patient has been without any form of nutritional support for a multitude of days. Objective Data Objective Data The patient's most recent lab work, culture data and imaging studies have all been personally reviewed. Pleural fluid dated February 06 demonstrated no growth to date. Vital Signs: Vital Signs Temp Pulse Resp BP Pulse Ox 98.9 F 81 27 H 114/57 L 98 02/16/22 03:36 02/16/22 07:12 02/16/22 07:12 02/16/22 03:36 02/16/22 03:36 Oxygen Flow Rate (L/min) [4] 4 Oxygen Flow Rate (L/min) [3] 4 Oxygen Flow Rate (L/min) [2] 4 Oxygen Flow Rate (L/min) 1 Oxygen Delivery Method [3] Nasal Cannula Oxygen Delivery Method [2] Nasal Cannula Oxygen Delivery Method [1 ( Room Air Initial Baseline)] Oxygen Delivery Method Nasal Cannula Weight: 70.1 kg Body Mass Index (BMI) 23.8 Intake & Output: Intake and Output for Last 24 Hours 02/14/22 02/15/22 02/16/22 23:59 23:59 23:59 Intake Total 1180.5 / 1180.5 771.25 / 771.25 407.75 / 407.75 Output Total 0 / 0 Balance 1180.5 / 1180.5 771.25 / 771.25 407.75 / 407.75 Lab / Micro Data Attestation: I reviewed the patient's lab results. Result Diagrams: 02/16/22 05:21 02/16/22 05:21 Labs: Laboratory Results - last 24 hr 02/15/22 11:42: POC Glucose 178 H 02/15/22 17:51: POC Glucose 210 H 02/15/22 22:41: POC Glucose 180 H 02/16/22 00:30: POC Glucose 243 H 02/16/22 05:21: WBC 13.7 H, RBC 3.10 L, Hgb 8.4 L, Hct 28.2 L, MCV 91.0, MCH 27.1, MCHC 29.8 L, RDW Std Deviation 58.8 H, RDW Coeff of Janel 17.7 H, Plt Count 239, MPV 10.3, Immature Gran % (Auto) 1.400 H, Neut % (Auto) 83.2 H, Lymph % (Auto) 3.7 L, [place] % (Auto) 11.2 H, Eos % (Auto) 0.2, Baso % (Auto) 0.3, Absolute Neuts (auto) 11.4 H, Absolute Lymphs (auto) 0.51 L, Nucleated RBC % 0, Differential Comment SCANNED, Diff Path Review May foll, Anisocytosis 1+ 02/16/22 05:21: Sodium 138, Potassium 3.9, Chloride 105, Carbon Dioxide 20.0 L, BUN 50 H, Creatinine 4.66 H, Estim Creat Clear Calc 12.44, Est GFR (MDRD) Af Amer 16 L, Est GFR (MDRD) Non-Af 13 L, BUN/Creatinine Ratio 10.7, Glucose 192 H, Calcium 7.7 L, Phosphorus 3.8, Albumin 2.0 L 02/16/22 05:48: POC Glucose 173 H Micro: Microbiology 02/13/22 17:00 Stool Stool Occult Blood (LEVI) - Final Occult Blood Positive 02/06/22 13:45 Fluid - Thoracentesis Fluid Gram Stain - Final 02/06/22 13:45 Fluid - Thoracentesis Fluid Body Fluid Culture - Final Culture exhibits no growth. 02/06/22 13:45 Fluid - Thoracentesis Fluid Anaerobic Culture - Final No growth in 5 days. Physical Exam Const General Appearance: lethargic and ill appearing Orientation / Consciousness: confused and disoriented HEENT normocephalic and head/scalp atraumatic Eyes PERRL and EOMs intact bilaterally Neck supple General: trachea midline Chest inspection of chest normal Resp Auscultation: rhonchi and diminished lung sounds Cardio regular rate and regular rhythm GI normal to inspection, nondistended, normoactive bowel sounds Extremity General Extremity: amputation; Negative for clubbing or edema Skin no rashes or lesions noted Neuro no focal motor deficits Psych Psych Narrative: Intermittently restless. Charges/Coding Visit Charges Inpatient E&M: 48355 Subs Hosp L2
--- NOTE | 2022-02-16 09:48 | PN.RENAL_ITS ---
Subjective Subjective Following for ESRD Resting quietly, confused, not following commands. Daughter at bedside. No overnight events. Now able to take applesauce with crushed meds. Objective Data Objective Data Vital Signs: Vital Signs Temp Pulse Resp BP Pulse Ox 98.9 F 81 27 H 114/57 L 98 02/16/22 03:36 02/16/22 07:12 02/16/22 07:12 02/16/22 03:36 02/16/22 03:36 Oxygen Flow Rate (L/min) [4] 4 Oxygen Flow Rate (L/min) [3] 4 Oxygen Flow Rate (L/min) [2] 4 Oxygen Flow Rate (L/min) 1 Oxygen Delivery Method [3] Nasal Cannula Oxygen Delivery Method [2] Nasal Cannula Oxygen Delivery Method [1 ( Room Air Initial Baseline)] Oxygen Delivery Method Nasal Cannula Weight: 70.1 kg Body Mass Index (BMI) 23.8 Intake & Output: Intake and Output for Last 24 Hours 02/14/22 02/15/22 02/16/22 23:59 23:59 23:59 Intake Total 1180.5 / 1180.5 771.25 / 771.25 407.75 / 407.75 Output Total 0 / 0 Balance 1180.5 / 1180.5 771.25 / 771.25 407.75 / 407.75 Lab / Micro Data Result Diagrams: 02/16/22 05:21 02/16/22 05:21 Labs: Laboratory Results - last 24 hr 02/15/22 11:42: POC Glucose 178 H 02/15/22 17:51: POC Glucose 210 H 02/15/22 22:41: POC Glucose 180 H 02/16/22 00:30: POC Glucose 243 H 02/16/22 05:21: WBC 13.7 H, RBC 3.10 L, Hgb 8.4 L, Hct 28.2 L, MCV 91.0, MCH 27.1, MCHC 29.8 L, RDW Std Deviation 58.8 H, RDW Coeff of Janel 17.7 H, Plt Count 239, MPV 10.3, Immature Gran % (Auto) 1.400 H, Neut % (Auto) 83.2 H, Lymph % (Auto) 3.7 L, [place] % (Auto) 11.2 H, Eos % (Auto) 0.2, Baso % (Auto) 0.3, Absolute Neuts (auto) 11.4 H, Absolute Lymphs (auto) 0.51 L, Nucleated RBC % 0, Differential Comment SCANNED, Diff Path Review May foll, Anisocytosis 1+ 02/16/22 05:21: Sodium 138, Potassium 3.9, Chloride 105, Carbon Dioxide 20.0 L, BUN 50 H, Creatinine 4.66 H, Estim Creat Clear Calc 12.44, Est GFR (MDRD) Af Amer 16 L, Est GFR (MDRD) Non-Af 13 L, BUN/Creatinine Ratio 10.7, Glucose 192 H, Calcium 7.7 L, Phosphorus 3.8, Albumin 2.0 L 02/16/22 05:48: POC Glucose 173 H Micro: Microbiology 02/13/22 17:00 Stool Stool Occult Blood (LEVI) - Final Occult Blood Positive 02/06/22 13:45 Fluid - Thoracentesis Fluid Gram Stain - Final 02/06/22 13:45 Fluid - Thoracentesis Fluid Body Fluid Culture - Final Culture exhibits no growth. 02/06/22 13:45 Fluid - Thoracentesis Fluid Anaerobic Culture - Final No growth in 5 days. Physical Exam Narrative General: Alert, NAD. HEENT: Normocephalic, atraumatic. Neck: Supple, no JVD. Heart: Normal S1, S2. There is a 3/6 systolic murmur. No rubs. Lungs: rhochi noted anteriorly and posteriorly. Rales noted left side. Abdomen: Normal bowel sounds, soft Extremity: No edema right leg. Right great toe bluish in color. Status post left BKA, cast intact AVF left UA +thrill/bruit Assessment & Plan Assessment/Plan (1) ESRD (end stage renal disease) on dialysis: PLAN: -Dialyzes on MWF schedule at [facility] [place]. At time of discharge patient will have a new lowered EDW -Patient dialyzed on 02/13 with UF ~300ml and 02/14 with UF ~800ml. -We will plan for UF today, attempt fluid as patient/blood pressure tolerates. - Patient was NPO per speech recommendations. Today patient is allowed to take applesause with crushed meds and also ice chips if fully awake. - Bp low, off antihypertensives and will restart back on Midodrine 10mg with holding parameters. (2) Anemia: PLAN: -The patient [facility] long-acting [facility]L [facility]. Last received 02/03. Will give LAUREL with HD -Hemoglobin is low but stable. Hgb post HD 02/13 9.1. Hgb today 8.4. - stool OB + x1 (3) Peripheral vascular occlusive disease: PLAN: -s/p Left BKA 02/09. - now has ischemic great right toe. Vascular consult recommended but at this time family wishes to not pursue any further surgical intervention (4) Dyspnea: PLAN: -Likely multifactorial. The patient has COPD and recent Covid 19 infection. The patient also has known chronic left pleural effusion. Reviewed CXR from 02/13 which showed left pleural effusion and left infiltrate - CT head no acute process -There is likely some component of volume overload with his left pleural effusion. - seen by surgery, KUB showed normal bowel pattern. Patient had BMs. To be started on diet if mentation improves. Surgery signed off. - started on azithromycin, cefepime and flagyl. Also on PPI gtt. - ammonia level 34, received lactulose x1
[2022-02-16 11:30] LABS: Pathologist Review Reviewed
[2022-02-16 11:46] LABS: Bedside Glucose 162 mg/dL (74-106)
--- NOTE | 2022-02-16 12:18 | CASEMGMT ---
Social Work VM left with Koki at [facility] and notified that updated clinicals were sent yesterday and requested a return call to confirm they can still accept pt when medically ready. Will await return call. AYALA Dia
--- NOTE | 2022-02-16 12:55 | PN.HOSP_ITS ---
Documented by User: Torie Hastings NP, CARPENTRY SPECIALIST-C 02/16/22 13:38 Subjective Subjective Patient seen and examined. Daughter at bedside. Patient restless, confused. Speech therapy at bedside. Patient moaning intelligibly. Unable to follow commands or voice complaints. Objective Data Objective Data Vital Signs: Vital Signs Temp Pulse Resp BP Pulse Ox 97.9 F 83 28 H 138/62 H 97 02/16/22 09:40 02/16/22 11:35 02/16/22 11:15 02/16/22 11:35 02/16/22 11:06 Oxygen Flow Rate (L/min) [4] 4 Oxygen Flow Rate (L/min) [3] 4 Oxygen Flow Rate (L/min) [2] 4 Oxygen Flow Rate (L/min) 1 Oxygen Delivery Method [3] Nasal Cannula Oxygen Delivery Method [2] Nasal Cannula Oxygen Delivery Method [1 ( Room Air Initial Baseline)] Oxygen Delivery Method Nasal Cannula Weight: 154 lb 8.705 oz Body Mass Index (BMI) 23.8 Intake & Output: Intake and Output for Last 24 Hours 02/14/22 02/15/22 02/16/22 23:59 23:59 23:59 Intake Total 1180.5 / 1180.5 771.25 / 771.25 517.75 / 517.75 Output Total 0 / 0 Balance 1180.5 / 1180.5 771.25 / 771.25 517.75 / 517.75 Lab / Micro Data Result Diagrams: 02/16/22 05:21 02/16/22 05:21 Labs: Laboratory Results - last 24 hr 02/15/22 17:51: POC Glucose 210 H 02/15/22 22:41: POC Glucose 180 H 02/16/22 00:30: POC Glucose 243 H 02/16/22 05:21: WBC 13.7 H, RBC 3.10 L, Hgb 8.4 L, Hct 28.2 L, MCV 91.0, MCH 27.1, MCHC 29.8 L, RDW Std Deviation 58.8 H, RDW Coeff of Janel 17.7 H, Plt Count 239, MPV 10.3, Immature Gran % (Auto) 1.400 H, Neut % (Auto) 83.2 H, Lymph % (Auto) 3.7 L, [place] % (Auto) 11.2 H, Eos % (Auto) 0.2, Baso % (Auto) 0.3, Absolute Neuts (auto) 11.4 H, Absolute Lymphs (auto) 0.51 L, Nucleated RBC % 0, Differential Comment SCANNED, Diff Path Review Reviewed, Anisocytosis 1+ 02/16/22 05:21: Sodium 138, Potassium 3.9, Chloride 105, Carbon Dioxide 20.0 L, BUN 50 H, Creatinine 4.66 H, Estim Creat Clear Calc 12.44, Est GFR (MDRD) Af Am er 16 L, Est GFR (MDRD) Non-Af 13 L, BUN/Creatinine Ratio 10.7, Glucose 192 H, Calcium 7.7 L, Phosphorus 3.8, Albumin 2.0 L 02/16/22 05:48: POC Glucose 173 H 02/16/22 11:33: POC Glucose 162 H Micro: Microbiology 02/13/22 17:00 Stool Stool Occult Blood (LEVI) - Final Occult Blood Positive 02/06/22 13:45 Fluid - Thoracentesis Fluid Gram Stain - Final 02/06/22 13:45 Fluid - Thoracentesis Fluid Body Fluid Culture - Final Culture exhibits no growth. 02/06/22 13:45 Fluid - Thoracentesis Fluid Anaerobic Culture - Final No growth in 5 days. Physical Exam Const alert Constitutional Narrative: Restless, confused Orientation / Consciousness: awake HEENT normocephalic Mouth: dry mucous membranes Eyes PERRL, EOMs intact bilaterally and conjunctivae normal Neck no lymphadenopathy Resp Auscultation: crackles and diminished lung sounds Cardio Cardio Narrative: A. fib, rate controlled Peripheral Pulses: pulses 2+ throughout GI normal to inspection, nondistended, normoactive bowel sounds, non-tender and non-distended Extremity normal to inspection Skin no rashes or lesions noted Skin Narrative: Left BKA, dressing intact. Right great toe ischemic. Lesions: no lesions Rashes: no rashes Trauma: no lacerations or abrasions Neuro CN's II-XII intact bilaterally, no focal motor deficits, no sensory deficits noted and deep tendon reflexes 2+ bilaterally Psych Activity / Motor Behavior: restless Assessment & Plan Assessment/Plan (1) Encephalopathy: PLAN: 1. Acute metabolic encephalopathy, likely multifactorial-brain CT unremarkable. Avoid sedating medication. Continue supportive measures. Continue treatment per below. Completed course of IV antibiotics empirically. No evidence of infection. Blood cultures and pleural fluid culture negative. 2. 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 On 4 L at baseline. Currently less than baseline requirements. 3. Acute on chronic normocytic anemia/anemia of chronic disease-trend CBC. Transfuse for hemoglobin less than 7. Continue PPI. Stool positive for occult blood. 4. 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 Orthopedic medicine following. PT/OT. Patient also developing right lower extremity PVD. Orthopedic medicine recommending a vascular surgery consult however family is not amendable at this time. 5. Ileus/Génesis's syndrome-resolved at this time. 6. Dysphagia/Aspiration risk- ST/dietitian following. NPO. To undergo a modified barium swallow in a.m. If patient fails MBS, will need to discuss alternative means of nutritional support. 7. End-stage renal disease on hemodialysis-nephrology consulted for dialysis. 8. 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 BNP greater than 1000. CT of chest with moderate to large left pleural effusion. Continue dialysis as scheduled. 9. Large left transudative pleural effusion-Underwent thoracentesis 02/05/22 with 600 cc fluid removal. Fluid studies appear transudative. Cytology with benign lymphocytic population. Culture with no growth. 10. Mildly increased troponin, did not trend-likely demand ischemia versus chronically elevated related to end-stage renal disease. 11. Spiculated right upper lobe lung mass-1.6 cm per CTA. Will need further outpatient follow-up. Thoracentesis cytology without malignancy. 12. Chronic hypoxic respiratory failure secondary to advanced COPD with fibrotic lung disease-continue home supplemental oxygen. As needed albuterol aerosol. 13. Type 2 diabetes mellitus-on insulin pump. Follows with endocrinology. Continue Accu-Cheks with sliding scale insulin. 14. CAD with history of stent-continue medical management including aspirin, statin, metoprolol, isosorbide. Plavix held. 15. Paroxysmal atrial fibrillation-continue metoprolol. Not on anticoagulation. 16. History of prostate cancer 17. Hyperlipidemia-continue statin. 18. Sacral decubitus ulcer stage II-frequent position changing. DVT prophylaxis- heparin sc This patient was seen by SHIVAM Dey under the supervision of Dr. Perez. Discharge plan: SNF when medically stable. Hospice discussed 02/15 by PA and family not amendable. Time spent examining patient, reviewing data and subsequent management of care: 16 Minutes Documented by User: Dr. Lisa Perez MD 02/16/22 16:52 Objective Data Lab / Micro Data Result Diagrams: 02/16/22 05:21 02/16/22 05:21 Charges/Coding Addendum Addendum: Patient seen by Torie DINEROC under my supervision Patient seen and examined. His daughter was by his bedside. Patient was working with physical therapy. Patient was alert but confused and grunting was quite restless. Unable to do review of systems on account of his confusion. O/E: Const alert Constitutional Narrative: alert, Restless, confused Orientation / Consciousness: awake HEENT normocephalic Mouth: dry mucous membranes Eyes PERRL, EOMs intact bilaterally and conjunctivae normal Neck no lymphadenopathy Resp has bilateral coarse crackles in all lung walker Cardio Cardio Narrative: A. fib, rate controlled Peripheral Pulses: pulses 2+ throughout GI normal to inspection, nondistended, normoactive bowel sounds, non-tender and non-distended Extremity normal to inspection Skin no rashes or lesions noted Skin Narrative: Left BKA, dressing intact. Right great toe ischemic. Lesions: no lesions Rashes: no rashes Trauma: no lacerations or abrasions Neuro CN's II-XII intact bilaterally, no focal motor deficits, no sensory deficits noted and deep tendon reflexes 2+ bilaterally Psych Activity / Motor Behavior: restless, confused Assessment and plan #Acute metabolic encephalopathy * patient remais very confused and restless * CT of the brain was unremarkable. Completed a course of empiric antimicrobials * blood cultures and pleural fluid cultures were negative. * PT/OT on board. fall precautions * #Chronic respiratory failure * hospital course complicated by left pleural effusion which resolved with thoracentesis * on his baseline oxygen * breathing treatment with bronchodilators. * titrate oxygen to maintain sats .90% * #Peripheral vascular disease * s/p left BKA during this admission * right big toe is developing gangrene. * FAmily not amenable to vascular surgery evaluation; according to his daughter, they are not worried about his toe and dont want that worked up * #Dysphagia * at risk of aspiration. * speech therapy on board * for modified barium swallow in the morning * #ESRD: nephrology on board. Paroxysmal A. fib: On metoprolol. Currently not on anticoagulation. Rest of chronic problems and management as per Torie Hastings NP-see his note above Total time spent on care of the patient today which included seeing the patient, examining patient, discussion of plan of care with family, reviewing data and subsequent management including documentation was 25 minutes Torie Hastings spending 16 minutes making a total of 41 minutes. Visit Charges Inpatient E&M: 74127 [facility] Hosp L3
--- NOTE | 2022-02-16 13:28 | PCM.PN.ORT ---
Subjective Subjective Patient seen and examined. Daughter and at bedside. Patient continues to be significantly confused. Patient will open his eyes briefly. Objective Data Objective Data Vital Signs: Vital Signs Temp Pulse Resp BP Pulse Ox 97.9 F 83 28 H 138/62 H 97 02/16/22 09:40 02/16/22 11:35 02/16/22 11:15 02/16/22 11:35 02/16/22 11:06 Oxygen Flow Rate (L/min) [4] 4 Oxygen Flow Rate (L/min) [3] 4 Oxygen Flow Rate (L/min) [2] 4 Oxygen Flow Rate (L/min) 1 Oxygen Delivery Method [3] Nasal Cannula Oxygen Delivery Method [2] Nasal Cannula Oxygen Delivery Method [1 ( Room Air Initial Baseline)] Oxygen Delivery Method Nasal Cannula Weight: 154 lb 8.705 oz Body Mass Index (BMI) 23.8 Intake & Output: Intake and Output for Last 24 Hours 02/14/22 02/15/22 02/16/22 23:59 23:59 23:59 Intake Total 1180.5 / 1180.5 771.25 / 771.25 517.75 / 517.75 Output Total 0 / 0 Balance 1180.5 / 1180.5 771.25 / 771.25 517.75 / 517.75 Lab / Micro Data Result Diagrams: 02/16/22 05:21 02/16/22 05:21 Labs: Laboratory Results - last 24 hr 02/15/22 17:51: POC Glucose 210 H 02/15/22 22:41: POC Glucose 180 H 02/16/22 00:30: POC Glucose 243 H 02/16/22 05:21: WBC 13.7 H, RBC 3.10 L, Hgb 8.4 L, Hct 28.2 L, MCV 91.0, MCH 27.1, MCHC 29.8 L, RDW Std Deviation 58.8 H, RDW Coeff of Janel 17.7 H, Plt Count 239, MPV 10.3, Immature Gran % (Auto) 1.400 H, Neut % (Auto) 83.2 H, Lymph % (Auto) 3.7 L, [place] % (Auto) 11.2 H, Eos % (Auto) 0.2, Baso % (Auto) 0.3, Absolute Neuts (auto) 11.4 H, Absolute Lymphs (auto) 0.51 L, Nucleated RBC % 0, Differential Comment SCANNED, Diff Path Review Reviewed, Anisocytosis 1+ 02/16/22 05:21: Sodium 138, Potassium 3.9, Chloride 105, Carbon Dioxide 20.0 L, BUN 50 H, Creatinine 4.66 H, Estim Creat Clear Calc 12.44, Est GFR (MDRD) Af Amer 16 L, Est GFR (MDRD) Non-Af 13 L, BUN/Creatinine Ratio 10.7, Glucose 192 H, Calcium 7.7 L, Phosphorus 3.8, Albumin 2.0 L 02/16/22 05:48: POC Glucose 173 H 02/16/22 11:33: POC Glucose 162 H Micro: Microbiology 02/13/22 17:00 Stool Stool Occult Blood (LEVI) - Final Occult Blood Positive 02/06/22 13:45 Fluid - Thoracentesis Fluid Gram Stain - Final 02/06/22 13:45 Fluid - Thoracentesis Fluid Body Fluid Culture - Final Culture exhibits no growth. 02/06/22 13:45 Fluid - Thoracentesis Fluid Anaerobic Culture - Final No growth in 5 days. Physical Exam Narrative General-does not follow commands, appears in no acute distress Left lower extremity-rigid removable dressing in place, subsequently removed. Developing pressure sore noted overlying the anterior patella. Otherwise, dressing clean, dry and intact. Appropriately tender over the BKA stump. No significant knee swelling is noted. Wound dressing removed. Dusky appearing wound edges, well approximated with sutures. No significant drainage. Posterior flap is slightly cool to touch. Right lower extremity-ischemic great toe at the level of the MTP, slightly cool to touch. Nonpalpable DP or PT pulse. Compartments soft compressible. Assessment & Plan Assessment/Plan (1) Peripheral vascular occlusive disease: PLAN: POD#7 s/p left BKA - Pain control - Medicine following for medical management - PT/OT -Dry sterile dressing changes daily. Dressing instructions reviewed and demonstrated with nursing. I stressed the importance of padding the anterior patella. Knee immobilizer to be kept in place except for hygiene to avoid flexion contracture of the knee. - DVT PPX -heparin per primary - Case management - D/C planning Patient also appears to be developing right lower extremity peripheral vascular disease. No history of revascularization attempts. I would recommend vascular surgery consultation.
[2022-02-16 13:56] LABS: Thyroid Stim Hormone (TSH) 0.29 uIU/mL (0.358-3.74)
[2022-02-16] MEDS: Haloperidol Lactate 5 MG/ML Vial 2 MG IM (15:31)
[2022-02-16] MEDS: Epoetin Alfa epbx 10,000 UNITS/ML 10000 UNIT SC (15:31)
[2022-02-16 18:06] LABS: Bedside Glucose 134 mg/dL (74-106)
--- NOTE | 2022-02-16 18:33 | NURSING ---
Reviewed charting with Gabriela Massey RN
--- NOTE | 2022-02-16 18:47 | DIALYSIS ---
Hemodialysis today. UF-500mL removed. Pt restless and calling out throughout tx. Pt had to have hand held through entire tx due to moving arm. Family at bedside during tx and assisted with holding pt hand and calming pt. Report to AILIN Henry. Neeedles pulled stasis achieved. Pt stable
[2022-02-16 21:33] LABS: Magnesium 2.2 mg/dL (1.6-2.6)
[2022-02-16] MEDS: Glycopyrrolate 0.2 MG/ML Vial 0.1 MG IV (22:08)
[2022-02-16] MEDS: Latanoprost 0.005% 1 Bottle 1 DRP OPHTHALMIC (22:12)
[2022-02-16] MEDS: Insulin Glargine-YFGN 100 UNIT/ML Pen 15 UNIT SC (22:18)
[2022-02-16 22:45] LABS: Bedside Glucose 182 mg/dL (74-106)
[2022-02-17] VITALS (13 sets, daily range): BP systolic 97–139; BP diastolic 48–84; PULSE 70–86; RESP 18–28; TEMP 36.3–37.5; O2SAT 96–99
[2022-02-17] MEDS: Ipratropium/Albuterol Sulfate 3 ML AMPUL.NEB INHALATION ×4 (03:27→15:40)
[2022-02-17] MEDS: Menthol/Lanolin/Calamine/Znox 113 GM Tube 1 APPLIC TOPICAL ×2 (05:05→14:20)
[2022-02-17] MEDS: Heparin Injection (Vial) 5,000 UNIT/ML VIAL 5000 UNIT SC ×2 (05:06→14:21)
[2022-02-17] MEDS: Glycopyrrolate 0.2 MG/ML Vial 0.1 MG IV (05:06)
[2022-02-17] MEDS: 0.9% Saline Lock 10 ML Syringe IV (05:09)
[2022-02-17] MEDS: Insulin Lispro 100 UNIT/ML INSULN.PEN SC ×2 (05:13→12:29)
[2022-02-17 06:39] LABS: Absolute Lymphocyte Count 0.48 X10^3/uL (0.83-4.51); Absolute Neutrophil Count 11.7 X10^3/uL (2.0-7.7); Basophil# 0.05 X10^3/uL; Basophil% 0.4 % (0-1); Eosinophil# 0.01 X10^3/uL; Eosinophils% 0.1 % (0-5); Hematocrit 29.6 % (40-54); Hemoglobin 8.6 g/dL (13.0-16.5); Lymphocyte # 0.48 X10^3/ul (0.83-4.51); Lymphocyte % 3.5 % (19-41); Mean Corp Hgb Conc 29.1 g/dL (32-36); Mean Corpuscular Hgb 26.9 pg (27.0-32.0); Mean Corpuscular Volume 92.5 fL (80-94); Mean Platelet Vol. 10.6 fl (6.2-12.0); Monocyte# 1.34 X10^3/uL; Monocyte% 9.7 % (0-10); NRBC Flagged by Analyzer 0 % (0-5); Neutrophil # 11.69 X10^3/uL (2.7-7.7); Neutrophil % 84.2 % (47-70); POSITIVE DIFFERENTIAL YES; Platelet Count 245 K/mm3 (150-450); RBC Distribution Width SD 61.2 fl (35.1-43.9); White Blood Count 13.9 K/mm3 (4.4-11.0)
[2022-02-17 06:45] LABS: Bedside Glucose 209 mg/dL (74-106)
[2022-02-17 06:47] LABS: Differential Indicated SCAN CRITERIA MET
[2022-02-17 06:59] LABS: Anisocytosis 1+; Differential Comment SCANNED
[2022-02-17 07:10] LABS: Anion Gap 16 (5-15); BUN 36 mg/dL (7-18); BUN/Creat Ratio 10.2 RATIO (10-20); Calcium,Total 8.1 mg/dL (8.5-10.1); Chloride 103 mmol/L (98-107); Creatinine, Serum 3.52 mg/dL (0.70-1.30); EST Glomerular Filtration Rate 18 mL/min (>60); Est Glom Filt Rate - Afr Amer 22 mL/min (>60); Estimated Creatinine Clearance 16.46 ml/min; Glucose 200 mg/dL (74-106); Potassium 3.9 mmol/L (3.5-5.1); Sodium Level 138 mmol/L (136-145); T4 Free Direct 0.87 ng/dL (0.76-1.46)
[2022-02-17] MEDS: Budesonide Respules 0.5 MG/2 ML AMPUL.NEB. INHALATION (07:16)
--- NOTE | 2022-02-17 09:57 | ST.MBS ---
Modified Barium Swallow - Patient Information Study Date: 02/17/22 Study Time: 08:50 Direct Billable Minutes: 120 Total Minutes procedure & reportin Diagnosis: Chronic hypoxemic respiratory failure (J96.11) Referring Physician: Vero Moser Medical History: Hector Massey is a 77 M with extensive PMH including COPD, chronic heart failure, prostate cancer, respiratory failure, CKD end stage with dialysis, DM, hx of GI bleed, NSTEMI, and reactive airway disease (SEE H&P for full PMH). He was brought to the ED 02/03/2022 from dialysis center by EMS for shortness of breath. The patient was admitted for management of acute on chronic heart failure, chronic hypoxic respiratory failure, and end-stage renal failure amongst other comorbidities. 02/06/2022 Pt underwent thoracentesis. 02/09/2022 Pt underwent left transtibial below-knee amputation due to dysvascular left lower extremity with dry gangrene of the foot. After the procedure, there was concern for increased confusion and possible PNA. 02/13/2022 Speech therapy was consulted to evaluate aspiration risk. He was not sufficiently alert for evaluation 02/13/2022. Chest Xray 02/13/2022 IMPRESSION: There is a left pleural effusion. Left infiltrate. 02/14/2022 the patient was recommended NPO. He has since been permitted ice chips and critical medications crushed in applesauce with full assistance from nursing staff if fully alert. Pt continues with confusion. He was referred for MBS study to objectively assess aspiration risk and determine if the patient is appropriate for diet advancement. Current Diet Ordered: NPO, ice chips & critical meds crushed in puree Dentition: Edentulous Mental Status: Impaired - Confusion Respiratory Status: Oxygenating on Room Air - Penetration-Aspiration Scale Penetration-Aspiration Scale: OBJECTIVE ASSESSMENT OF SWALLOW FUNCTION (QUANTITATIVE ? PER TRIAL): PENETRATION / ASPIRATION SCALE (WINTER): 1 = does not enter airway 2 = enters airway/above vocal folds/ejected 3 = enters airway/above vocal folds/not ejected 4 = enters airway/contacts vocal folds/ejected 5 = enters airway/contacts vocal folds/not ejected 6 = enters airway/below vocal folds/ejected 7 = enters airway/below vocal folds/not ejected despite effort 8 = enters airway/below vocal folds/no effort VIDEOFLOROSCOPIC SCALE SCORE (WINTER): Grade I = aspiration of material that has penetrated into the laryngeal vestibule, intact cough reflex Grade II = aspiration < 10 % of the bolus, intact cough reflex Grade III = aspiration of < 10 % of the bolus, reduced cough reflex or aspiration of > 10 % of the bolus, intact cough reflex Grade IV = aspiration of > 10 % of the bolus, reduced cough reflex - Penetration-Aspiration Scale Score Thin Liquid via teaspoon Result: 1= does not enter airway Thin Liquid via teaspoon Trial 2 Result: 2= enter airway/above vocal folds/ejected Thin Liquid via small single sip from cup Result: 1= does not enter airway [place]iday Thick Liquid via small single sip from cup Result: 1= does not enter airway Honey Thick Liquid via small single sip from cup Result: 1= does not enter airway Pudding via teaspoon Result: 1= does not enter airway Thin Liquid via teaspoon Trial 3 Result: 1= does not enter airway Thin Liquid via single sip from straw Result: 2= enter airway/above vocal folds/ejected Pudding via teaspoon Trial 2 Result: 1= does not enter airway Thin Liquid via teaspoon Trial 4 Result: 1= does not enter airway Thin Liquid via teaspoon Trial 5 Result: 3= enters airways/above vocal folds/not ejected Thin Liquid via teaspoon Trial 6 Result: 2= enter airway/above vocal folds/ejected - Trace residue of previous trial on VF during the swallow. No aspiration observed during the swallow. Cannot rule out post prandial aspiration due to pt's body habitus. - Oral Phase Labial Seal: Escape beyond interlabial space; no extension beyond will border Tongue Control During Bolus Hold: Posterior escape of less than half of bolus Bolus Transport/Lingual Motion: Repetitive/disorganized tongue motion Oral Residue: Residue collection on oral structures - Pharyngeal Phase Initiation of Pharyngeal Swallow: Bolus head at posterior laryngeal surgace of epiglottis Soft Palate Elevation: Trace column of contrast/air between soft palate and pharyngeal wall Laryngeal Elevation: Partial superior movement thyroid cart/partial apprx aryt-epig petiole Anterior Hyoid Excursion: Complete anterior movement Epiglottic Movement: Partial inversion Laryngeal Vestibule Closure at Height of Swallow: Incomplete; narrow column of air/contrast in laryngeal vestibule Pharyngeal Stripping Wave: Present - diminished Pharyngoesophageal Segment Opening: Parital distension and partial duration; parital obstruction of flow Tongue Base Retraction: Wide column of contrast between tongue base & post. pharyngeal wall Pharyngeal Residue: Collection of residue within or on pharyngeal structures - Esophageal Phase Esophageal Clearance: Complete clearance - Treatment Strategies Effects of treatment strategies attemped:: Multiple swallows = Somewhat effective in clearing pharyngeal residue - Pt only able to execute 1/2 attempts. - Diagnosis/Impression Diagnosis: Moderate Oropharyngeal Phase Dysphagia (R13.12) Impression: The oral phase is marked by disorganized tongue motion with lingual pumping of barium pudding during A-P transport. The patient demonstrated mild-moderate oral residue after the swallow. He had premature posterior loss of liquids to the posterior surface of the epiglottis resulting in suboptimal bolus placement upon swallow onset. Did not trial solids due to safety concerns with ongoing confusion. The pharyngeal phase is marked by mild-moderate pharyngeal residues after the swallow and decreased airway closure during the swallow. The patient demonstrates decreased tongue base retraction with resulting pharyngeal residues in the vallecula after the swallow. The patient is at increased risk for post prandial aspiration of residues after the swallow. He had increased pharyngeal residue with thickened liquid and pudding trials. The patient demonstrates decreased laryngeal elevation and anterior hyoid excursion resulting in mild impairments in airway closure during the swallow. The patient presented with trace laryngeal penetration with full ejection from the laryngeal vestibule with three trials of thin liquids. One tsp sip of thin liquid barium did not fully eject from the laryngeal vestibule and appeared in trace amount on the VF during the swallow. No aspiration was observed during the study. The SKILLED NURSING PROFESSIONAL could not visualize the level of the VF or below the level of the VF after the swallow was completed due to pt's body habitus, so post prandial aspiration cannot be ruled out. - Recommendations Diet: Puree Textures, Thin Liquids Comment: FEED ONLY IF FULLY ALERT, DISCONTINUE IF INCREASED S/S OF ASPIRATION Compensatory Strategies: Small Bites, Liquid by Teaspoon Only, Slow Rate, Sitting upright, Remain sitting upright for 30 minutes after PO intake Supervision: Total Feed Recommend Repeat Modified Barium Swallow: TBD - Repeat MBS study if deemed appropriate by SKILLED NURSING PROFESSIONAL during POC. Need for Skilled Speech Therapy Services: Yes Comment: Will recommend the patient for continued dysphagia therapy to address deficits in oropharyngeal swallow function. Will plan to monitor diet tolerance closely. Would consider discontinuing diet if worsening pulmonary status. At this time, the patient is unable to sufficiently follow commands for oropharyngeal strengthening. If improved mentation, would consider the patient for oropharyngeal strengthening to improve lingual coordination, hyoid excursion, and tongue base retraction. The patient and family would benefit from continued education regarding diet recommendations and recommended compensatory strategies. Education Completed: 1. Described result of evaluation. - Discussed evaluation results and recommendations with RN and pt's family verbally. SKILLED NURSING PROFESSIONAL reviewed images and recommendations with RN. SKILLED NURSING PROFESSIONAL posted recommendations in patient's room on communication whiteboard., 4. Family/caregivers understand evaluation & agree w/ goals & tx plan., 7. Pt requires further education on strategies & risks. - Status Active ST Patient: Active - Contact Information [facility] Speech Therapy:: Roberta Bustos M.A. [facility]-SKILLED NURSING PROFESSIONAL Speech-Language Pathologist [facility] [address] [place] [address] [email or web address] [phone] 02/17/22 12:36
[2022-02-17] MEDS: BRIMONIDINE 0.2% 5ML BOTTLE 1 DRP LEFT EYE (10:11)
[2022-02-17] MEDS: Acetaminophen 650 MG Suppository RC ×2 (10:18→15:49)
--- NOTE | 2022-02-17 10:20 | PCM.PN.REN ---
Subjective Subjective Resting in bed. and daughter at bedside. No overnight events. Patient seems more alert/awake this morning. Objective Data Objective Data Vital Signs: Vital Signs Temp Pulse Resp BP Pulse Ox 99.5 F H 81 23 H 134/60 H 96 02/17/22 07:55 02/17/22 07:55 02/17/22 07:55 02/17/22 07:55 02/17/22 07:55 Oxygen Flow Rate (L/min) [4] 4 Oxygen Flow Rate (L/min) [3] 4 Oxygen Flow Rate (L/min) [2] 4 Oxygen Flow Rate (L/min) 2 Oxygen Delivery Method [3] Nasal Cannula Oxygen Delivery Method [2] Nasal Cannula Oxygen Delivery Method [1 ( Room Air Initial Baseline)] Oxygen Delivery Method Room Air Weight: 68.6 kg Body Mass Index (BMI) 23.8 Intake & Output: Intake and Output for Last 24 Hours 02/15/22 02/16/22 02/17/22 23:59 23:59 23:59 Intake Total 771.25 / 771.25 627.75 / 627.75 0 / 0 Output Total 0 / 0 0 / 0 0 / 0 Balance 771.25 / 771.25 627.75 / 627.75 0 / 0 Lab / Micro Data Result Diagrams: 02/17/22 06:00 02/17/22 06:00 Labs: Laboratory Results - last 24 hr 02/16/22 05:21: Diff Path Review Reviewed 02/16/22 05:21: TSH 0.29 L 02/16/22 05:21: Magnesium 2.2 02/16/22 11:33: POC Glucose 162 H 02/16/22 13:50: Ammonia 19.0 02/16/22 17:54: POC Glucose 134 H 02/16/22 22:17: POC Glucose 182 H 02/17/22 05:13: POC Glucose 209 H 02/17/22 06:00: WBC 13.9 H, RBC 3.20 L, Hgb 8.6 L, Hct 29.6 L, MCV 92.5, MCH 26.9 L, MCHC 29.1 L, RDW Std Deviation 61.2 H, RDW Coeff of Janel 18.0 H, Plt Count 245, MPV 10.6, Immature Gran % (Auto) 2.100 H, Neut % (Auto) 84.2 H, Lymph % (Auto) 3.5 L, [place] % (Auto) 9.7, Eos % (Auto) 0.1, Baso % (Auto) 0.4, Absolute Neuts (auto) 11.7 H, Absolute Lymphs (auto) 0.48 L, Nucleated RBC % 0, Differential Comment SCANNED, Anisocytosis 1+ 02/17/22 06:00: Sodium 138, Potassium 3.9, Chloride 103, Carbon Dioxide 19.0 L, Anion Gap 16 H, BUN 36 H, Creatinine 3.52 H, Estim Creat Clear Calc 16.46, Est GFR (MDRD) Af Amer 22 L, Est GFR (MDRD) Non-Af 18 L, BUN/Creatinine Ratio 10.2, Glucose 200 H, Calcium 8.1 L, Free T4 0.87 Micro: Microbiology 02/13/22 17:00 Stool Stool Occult Blood (LEVI) - Final Occult Blood Positive 02/06/22 13:45 Fluid - Thoracentesis Fluid Gram Stain - Final 02/06/22 13:45 Fluid - Thoracentesis Fluid Body Fluid Culture - Final Culture exhibits no growth. 02/06/22 13:45 Fluid - Thoracentesis Fluid Anaerobic Culture - Final No growth in 5 days. Physical Exam Narrative General: Alert, NAD. HEENT: Normocephalic, atraumatic. Neck: Supple, no JVD. Heart: Normal S1, S2. There is a 3/6 systolic murmur. No rubs. Lungs: rhochi noted anteriorly and posteriorly. Audible rhonchi noted. Abdomen: Normal bowel sounds, soft Extremity: No edema right leg. Right great toe bluish in color. Status post left BKA, cast intact AVF left UA +thrill/bruit Assessment & Plan Assessment/Plan (1) ESRD (end stage renal disease) on dialysis: PLAN: -Dialyzes on MWF schedule at [facility] dialysis [facility]. At time of discharge patient will have a new lowered EDW -Patient dialyzed on 02/13 with UF ~300ml and 02/14 with UF ~800ml. -We will plan for HD today, attempt fluid removal as patient/blood pressure tolerates. - Patient was NPO per speech recommendations. Yesterday patient allowed to take applesause with crushed meds and also ice chips if fully awake. Had modified barium swallow today - Bp low but have improved; off antihypertensives and will restart back on Midodrine 10mg with holding parameters. (2) Anemia: PLAN: -The patient receives long-acting LAUREL at kidney center. Last received 02/03. Will give LAUREL with HD -Hemoglobin is low but stable and slowly up-trending. - stool OB + x1 (3) Peripheral vascular occlusive disease: PLAN: -s/p Left BKA 02/09. -now has ischemic great right toe. Vascular consult recommended but at this time family wishes to not pursue any further surgical intervention (4) Dyspnea: PLAN: -Likely multifactorial. The patient has COPD and recent Covid 19 infection. The patient also has known chronic left pleural effusion. Reviewed CXR from 02/13 which showed left pleural effusion and left infiltrate - CT head no acute process -There is likely some component of volume overload with his left pleural effusion. - seen by surgery, KUB showed normal bowel pattern. Patient had BMs. To be started on diet if mentation improves. Surgery signed off. - started on azithromycin, cefepime and flagyl. Also on PPI gtt. - ammonia level 34, received lactulose x1 - to have family meeting today to review overall GOC for patient
--- NOTE | 2022-02-17 11:15 | CPS ---
BiPAP removed from room.
--- NOTE | 2022-02-17 12:11 | CASEMGMT ---
Addendum entered by Khushi Giles 02/17/22 12:26: Social Work Received phone call from Gloria at [facility] who states she has talked to pt's and will be here at 1pm to meet with family. POWER GENERATION PLANT OPERATOR and RN notified. AYALA Dia Original Note: Social Work LEDA Vogt stating she had a family meeting and pt and children are now agreeable to hospice and the IPU. Referral made to Barber at [facility] and KETAN requested an expediated family meeting as everyone is here now and some of the children do have to work later today. Barber states all appointments are full today but he will reach out to the computer numeric control setter staff. Referral information given to Barber and clinicals faxed to the [facility] office. KETAN met with pt and 3 children and explained above. Family is understanding. POWER GENERATION PLANT OPERATOR and RN updated. AYALA Dia
[2022-02-17] MEDS: Timolol 0.5% 5ML OPTH.BTL 1 DRP OPHTHALMIC (12:27)
[2022-02-17 12:36] LABS: Bedside Glucose 298 mg/dL (74-106)
--- NOTE | 2022-02-17 12:41 | PN.CC_ITS ---
Assessment & Plan Assessment/Plan (1) Encephalopathy: PLAN: RECOMMENDATIONS: 1. Continue BiPAP support nightly if tolerated by patient. 2. Avoid sedating medications. 3. Continue to monitor H&H daily. Transfuse if hemoglobin drops below 7 g/dL. 4. Continue PPI therapy. 5. Dietary advancement per speech therapy recommendations. 6. Continue current supportive measures, pending evaluation by hospice care services. IMPRESSIONS: 1. Encephalopathy I do suspect that the patient's encephalopathy, which appears to have developed following his lower extremity amputation at the end of January is likely secondary to underlying metabolic derangements. CT head was unremarkable. ABG did not reveal evidence of CO2 retention. The patient continues to receive dialysis support per nephrology recommendations. Plan to continue current supportive measures. Avoid sedating medications. 2. Anemia The patient does have some anemia of chronic disease. However, his hemoglobin is lower than what is normal for him. Continue to monitor H&H daily. If hemoglobin is less than 7 g/dL, plan to transfuse packed red blood cells. Agree with continuing PPI therapy. 3. Chronic hypoxic respiratory failure secondary to COPD with new transudate effusion/pulmonary nodule Clinical suspicion for shortness of breath secondary to pleural effusion in the setting of relatively advanced COPD. High clinical suspicion for renal or cardiac etiology for pleural effusion. Continue hemodialysis support per nephrology recommendations. Continue bronchodilator therapy. Pulmonary nodules can be monitored longitudinally on an outpatient basis. 4. End-stage renal disease on hemodialysis Continue supportive care per nephrology recommendations. 5. Peripheral vascular disease status post left BKA/diabetes mellitus/coronary artery disease Complicates care, management, recovery and prognosis. Continue supportive measures as noted above. Given lack of overall clinical improvement, it is reasonable to consider a transition to comfort care measures and involvement of palliative care. This note was generated with [employer] dictation software. It may contain incorrect words, spelling, and punctuation that were not noted in checking the note before signing. Subjective Subjective The patient was seen and examined at the bedside this morning. Events from the last 24 hours have been reviewed. The patient is currently afebrile, hemodynamically stable and maintaining appropriate oxygen saturations on room air. The patient is having a better day today than yesterday but is still confused. There was a family meeting earlier today to discuss goals of care. The patient's family is now in agreement to pursue hospice care measures. Objective Data Objective Data The patient's most recent lab work, culture data and imaging studies have all been personally reviewed. Pleural fluid dated February 06 demonstrated no growth to date. Vital Signs: Vital Signs Temp Pulse Resp BP Pulse Ox 99.5 F H 81 23 H 134/60 H 96 02/17/22 07:55 02/17/22 07:55 02/17/22 07:55 02/17/22 07:55 02/17/22 07:55 Oxygen Flow Rate (L/min) [4] 4 Oxygen Flow Rate (L/min) [3] 4 Oxygen Flow Rate (L/min) [2] 4 Oxygen Flow Rate (L/min) 2 Oxygen Delivery Method [3] Nasal Cannula Oxygen Delivery Method [2] Nasal Cannula Oxygen Delivery Method [1 ( Room Air Initial Baseline)] Oxygen Delivery Method Room Air Weight: 68.6 kg Body Mass Index (BMI) 23.8 Intake & Output: Intake and Output for Last 24 Hours 02/15/22 02/16/22 02/17/22 23:59 23:59 23:59 Intake Total 771.25 / 771.25 627.75 / 627.75 0 / 0 Output Total 0 / 0 0 / 0 0 / 0 Balance 771.25 / 771.25 627.75 / 627.75 0 / 0 Lab / Micro Data Attestation: I reviewed the patient's lab results. Result Diagrams: 02/17/22 06:00 02/17/22 06:00 Labs: Laboratory Results - last 24 hr 02/16/22 05:21: TSH 0.29 L 02/16/22 05:21: Magnesium 2.2 02/16/22 13:50: Ammonia 19.0 02/16/22 17:54: POC Glucose 134 H 02/16/22 22:17: POC Glucose 182 H 02/17/22 05:13: POC Glucose 209 H 02/17/22 06:00: WBC 13.9 H, RBC 3.20 L, Hgb 8.6 L, Hct 29.6 L, MCV 92.5, MCH 26.9 L, MCHC 29.1 L, RDW Std Deviation 61.2 H, RDW Coeff of Janel 18.0 H, Plt Count 245, MPV 10.6, Immature Gran % (Auto) 2.100 H, Neut % (Auto) 84.2 H, Lymph % (Auto) 3.5 L, [place] % (Auto) 9.7, Eos % (Auto) 0.1, Baso % (Auto) 0.4, Absolute Neuts (auto) 11.7 H, Absolute Lymphs (auto) 0.48 L, Nucleated RBC % 0, Differential Comment SCANNED, Anisocytosis 1+ 02/17/22 06:00: Sodium 138, Potassium 3.9, Chloride 103, Carbon Dioxide 19.0 L, Anion Gap 16 H, BUN 36 H, Creatinine 3.52 H, Estim Creat Clear Calc 16.46, Est GFR (MDRD) Af Amer 22 L, Est GFR (MDRD) Non-Af 18 L, BUN/Creatinine Ratio 10.2, Glucose 200 H, Calcium 8.1 L, Free T4 0.87 02/17/22 12:24: POC Glucose 298 H Micro: Microbiology 02/13/22 17:00 Stool Stool Occult Blood (LEVI) - Final Occult Blood Positive 02/06/22 13:45 Fluid - Thoracentesis Fluid Gram Stain - Final 02/06/22 13:45 Fluid - Thoracentesis Fluid Body Fluid Culture - Final Culture exhibits no growth. 02/06/22 13:45 Fluid - Thoracentesis Fluid Anaerobic Culture - Final No growth in 5 days. Physical Exam Const General Appearance: ill appearing Orientation / Consciousness: confused and disoriented Exam Limitations: altered mental status HEENT normocephalic and head/scalp atraumatic Eyes PERRL and EOMs intact bilaterally Neck supple General: trachea midline Chest inspection of chest normal Resp Auscultation: rhonchi and diminished lung sounds Cardio regular rate and regular rhythm GI normal to inspection, nondistended, normoactive bowel sounds Extremity General Extremity: amputation; Negative for clubbing or edema Skin no rashes or lesions noted Neuro no focal motor deficits Psych Psych Narrative: Intermittently restless. Charges/Coding Visit Charges Inpatient E&M: 43995 Subs Hosp L2
[2022-02-17] MEDS: Epoetin Alfa epbx 10,000 UNITS/ML 10000 UNIT SC (14:19)
[2022-02-17] MEDS: Midodrine HCl 5 MG Tablet 10 MG PO (14:20)
--- NOTE | 2022-02-17 15:07 | DS.PCM_ITS ---
Documented by User: Torie Hastings NP, SHIPPING RECEIVING CLERK-C 02/17/22 15:37 Providers Date of Admission: 02/03/22 Date of Discharge: 02/17/22 Primary Care Physician: Dr. Sb Bolanos, Consultations 02/04/22 00:05 Consult: Nephrology Routine Consulting Provider: Allison Reyes Reason for Consult: on HD, SOB, CTA ordered EMERGENT Consult: No MD Notified: Yes Date Notified: 02/03/22 Time Notified: 22:05 Method of Notification: Text 02/07/22 11:31 Consult: Orthopedics Routine Consulting Provider: Flynn Lacy Reason for Consult: Left foot gangrene, left BKA 02/09 EMERGENT Consult: No MD Notified: Yes Date Notified: 02/07/22 Time Notified: 13:03 Method of Notification: Text 02/07/22 14:52 Consult: Barge Loader / Pulmonary Medicine Routine Consulting Provider: Pulmonary Medicine [facility] Reason for Consult: Pre-op clearance EMERGENT Consult: No MD Notified: Yes Date Notified: 02/07/22 Time Notified: 15:58 Method of Notification: Text 02/11/22 01:51 Consult: General Surgery Routine Consulting Provider: Pradeep Long Reason for Consult: Possible Génesis syndrome EMERGENT Consult: No MD Notified: Yes Date Notified: 02/11/22 Time Notified: 01:55 Method of Notification: Text 02/14/22 17:40 Consult: Onc/Wound/malted milk supervisor Routine Comment: Reason for Consult:: Deep tissue injury on coccyx Reason For Visit: SOB Diagnosis Discharge Diagnosis (1) Encephalopathy: Status: Acute Code(s): G93.40 - Encephalopathy, unspecified Medications at Discharge Home Medications latanoprost 0.005 % eye drops 1 drp EACH EYE DAILY ml 11/15/17 brimonidine 0.2 % eye drops 1 drp LEFT EYE BID ml 10/01/19 timolol 0.5 % eye drops 1 drp EACH EYE DAILY ml 10/01/19 metoprolol succinate 25 mg tablet,extended release 24 hr 12.5 mg PO DAILY #45 tab 08/10/21 aspirin 81 mg PO DAILY 08/15/21 isosorbide mononitrate 30 mg tablet,extended release 24 hr 30 mg PO DAILY #90 tab 08/22/21 atorvastatin 80 mg tablet 80 mg PO QHS #90 tab 11/08/21 clopidogrel 75 mg tablet 75 mg PO DAILY #90 tab 11/08/21 albuterol sulfate 90 mcg/actuation aerosol inhaler 2 puff INHALATION Q4H PRN #8.5 g 11/15/21 Radha Petersonta 1 inh INHALATION DAILY 02/02/22 docusate calcium 240 mg PO BID 02/02/22 insulin lispro [Humalog U-100 Insulin] 150 unit SUBCUT .Q3DAY 02/02/22 lorazepam [Ativan] 0.5 mg PO TID PRN 02/03/22 Hospital Course Operations - (L BKA) Procedures Dialysis and Thoracentesis Summary of Care Provided Hospital Course: Patient is a 77 year old male admitted 02/03/22 due to shortness of breath. Family meeting 02/17/22 to discuss patient overall declining despite treatments per below. Patient has extensive comorbidities and progressive decline during hospitalization. Family amendable to hospice transition. Home with hospice at discharge for supportive care/comfort care. See below for hospital management. 1. Acute metabolic encephalopathy, likely multifactorial-brain CT unremarkable. Continue supportive measures. Completed course of IV antibiotics empirically. No evidence of infection. Blood cultures and pleural fluid culture negative. 2. 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 On 4 L at baseline. 3. Acute on chronic normocytic anemia/anemia of chronic disease-On PPI. Stool positive for occult blood. 4. 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 Orthopedic medicine consulted during admission. Patient also developing right lower extremity PVD. Orthopedic medicine recommended a vascular surgery consult however family is not amendable. 5. Ileus/Kenneth's syndrome-resolved at this time. 6. Dysphagia/Aspiration risk- pleasure feeding given hospice transition. 7. End-stage renal disease on hemodialysis-nephrology consulted for dialysis. 8. 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 BNP greater than 1000. CT of chest with moderate to large left pleural effusion. Dialysis during admission. 9. Large left transudative pleural effusion-Underwent thoracentesis 02/05/22 with 600 cc fluid removal. Fluid studies appear transudative. Cytology with benign lymphocytic population. Culture with no growth. 10. Mildly increased troponin, did not trend-likely demand ischemia versus chronically elevated related to end-stage renal disease. 11. Spiculated right upper lobe lung mass-1.6 cm per CTA. Thoracentesis cytology without malignancy. 12. Chronic hypoxic respiratory failure secondary to advanced COPD with fibrotic lung disease-continue home supplemental oxygen. As needed albuterol aerosol. 13. Type 2 diabetes mellitus-on insulin pump. Follows with endocrinology. 14. CAD with history of stent-continue medical management including aspirin, statin, plavix, metoprolol, isosorbide. 15. Paroxysmal atrial fibrillation-continue metoprolol. Not on anticoagulation. 16. History of prostate cancer 17. Hyperlipidemia-continue statin. 18. Sacral decubitus ulcer stage II-frequent position changing. Physical Exam Const alert Constitutional Narrative: Restless, confused Orientation / Consciousness: awake HEENT normocephalic Mouth: dry mucous membranes Eyes PERRL, EOMs intact bilaterally and conjunctivae normal Neck no lymphadenopathy Resp Auscultation: crackles and diminished lung sounds Cardio Cardio Narrative: A. fib, rate controlled Peripheral Pulses: pulses 2+ throughout GI normal to inspection, nondistended, normoactive bowel sounds, non-tender and non-distended Extremity normal to inspection Skin no rashes or lesions noted Skin Narrative: Left BKA, dressing intact. Right great toe ischemic. Lesions: no lesions Rashes: no rashes Trauma: no lacerations or abrasions Neuro CN's II-XII intact bilaterally, no focal motor deficits, no sensory deficits noted and deep tendon reflexes 2+ bilaterally Psych Activity / Motor Behavior: restless, yelling out Patient seen and examined prior to discharge. Physical assessment as noted above. Patient is stable for discharge with follow up recommendations as noted above. This patient was seen by SHIVAM Dey under the supervision of Dr. Perez. Time spent examining patient, reviewing data and subsequent management of care: 25 Minutes Weight / BMI Weight Weight: 151 lb 3.794 oz Body Mass Index (BMI) 23.8 ABG / Lab / Microbiology Data Result Diagrams: 02/17/22 06:00 02/17/22 06:00 Laboratory: Laboratory Results - last 24 hr 02/16/22 05:21: Magnesium 2.2 02/16/22 17:54: POC Glucose 134 H 02/16/22 22:17: POC Glucose 182 H 02/17/22 05:13: POC Glucose 209 H 02/17/22 06:00: WBC 13.9 H, RBC 3.20 L, Hgb 8.6 L, Hct 29.6 L, MCV 92.5, MCH 26.9 L, MCHC 29.1 L, RDW Std Deviation 61.2 H, RDW Coeff of Janel 18.0 H, Plt Count 245, MPV 10.6, Immature Gran % (Auto) 2.100 H, Neut % (Auto) 84.2 H, Lymph % (Auto) 3.5 L, [place] % (Auto) 9.7, Eos % (Auto) 0.1, Baso % (Auto) 0.4, Absolute Neuts (auto) 11.7 H, Absolute Lymphs (auto) 0.48 L, Nucleated RBC % 0, Differential Comment SCANNED, Anisocytosis 1+ 02/17/22 06:00: Sodium 138, Potassium 3.9, Chloride 103, Carbon Dioxide 19.0 L, Anion Gap 16 H, BUN 36 H, Creatinine 3.52 H, Estim Creat Clear Calc 16.46, Est GFR (MDRD) Af Amer 22 L, Est GFR (MDRD) Non-Af 18 L, BUN/Creatinine Ratio 10.2, Glucose 200 H, Calcium 8.1 L, Free T4 0.87 02/17/22 12:24: POC Glucose 298 H Microbiology: Microbiology 02/13/22 17:00 Stool Stool Occult Blood (LEVI) - Final Occult Blood Positive 02/06/22 13:45 Fluid - Thoracentesis Fluid Gram Stain - Final 02/06/22 13:45 Fluid - Thoracentesis Fluid Body Fluid Culture - Final Culture exhibits no growth. 02/06/22 13:45 Fluid - Thoracentesis Fluid Anaerobic Culture - Final No growth in 5 days. Meaningful Use Info Meaningful Use Diagnoses (Choose all that apply): None applicable Discharge Plan Admission Admit Date/Time: 02/03/22 19:03 Attending Provider: Lisa Perez Primary Care Provider: Sb Bolanos Consulting Providers: Justin Martins ; Dev Bolanos ; Mariaelena Schilling NP ; Allison Reyes ; Flynn Lacy ; Pradeep Long Discharge Orders/Prescriptions Prescriptions: No Action timolol 0.5 % drops 1 drp EACH EYE DAILY RF: 0 brimonidine 0.2 % drops 1 drp LEFT EYE BID RF: 0 albuterol sulfate 90 mcg/actuation HFA aerosol inhaler 2 puff INHALATION Q4H PRN (Reason: Sob &/Or Wheezing) Qty: 8.5 RF: 11 latanoprost 1 DROP bottle 1 drp EACH EYE DAILY RF: 0 aspirin 81 mg tablet,delayed release (DR/EC) 81 mg PO DAILY RF: 0 Humalog U-100 Insulin 100 unit/mL Cartridge 150 unit SUBCUT .Q3DAY RF: 0 docusate calcium 240 mg capsule 240 mg PO BID RF: 0 Trelegy Ellipta 200-62.5-25 mcg blister with device 1 inh inhalation DAILY RF: 0 lorazepam [Ativan] 0.5 mg tablet 0.5 mg PO TID PRN (Reason: Anxiety) RF: 0 metoprolol succinate 25 mg tablet extended release 24 hr 12.5 mg PO DAILY Qty: 45 RF: 3 isosorbide mononitrate 30 mg tablet extended release 24 hr 30 mg PO DAILY Qty: 90 RF: 3 atorvastatin 80 mg tablet 80 mg PO QHS Qty: 90 RF: 3 clopidogrel [Plavix] 75 mg tablet 75 mg PO DAILY Qty: 90 RF: 3 Disposition Disposition (needs filled in before D/C Order can be placed): Hospice in Home Documented by User: Dr. Lisa Perez MD 02/17/22 17:30 Providers Date of Admission: 02/03/22 Reason For Visit: SOB Medications at Discharge Home Medications latanoprost 0.005 % eye drops 1 drp EACH EYE DAILY ml 11/15/17 brimonidine 0.2 % eye drops 1 drp LEFT EYE BID ml 10/01/19 timolol 0.5 % eye drops 1 drp EACH EYE DAILY ml 10/01/19 metoprolol succinate 25 mg tablet,extended release 24 hr 12.5 mg PO DAILY #45 tab 08/10/21 aspirin 81 mg PO DAILY 08/15/21 isosorbide mononitrate 30 mg tablet,extended release 24 hr 30 mg PO DAILY #90 tab 08/22/21 atorvastatin 80 mg tablet 80 mg PO QHS #90 tab 11/08/21 clopidogrel 75 mg tablet 75 mg PO DAILY #90 tab 11/08/21 albuterol sulfate 90 mcg/actuation aerosol inhaler 2 puff INHALATION Q4H PRN #8.5 g 11/15/21 Trelegy Ellipta 1 inh INHALATION DAILY 02/02/22 docusate calcium 240 mg PO BID 02/02/22 insulin lispro [Humalog U-100 Insulin] 150 unit SUBCUT .Q3DAY 02/02/22 lorazepam [Ativan] 0.5 mg PO TID PRN 02/03/22 ABG / Lab / Microbiology Data Result Diagrams: 02/17/22 06:00 02/17/22 06:00 Discharge Plan Admission Admit Date/Time: 02/03/22 19:03 Attending Provider: Lisa Perez Primary Care Provider: Sb Bolanos Consulting Providers: Justin Martins ; Dev Bolanos ; Mariaelena Schilling NP ; Allison Reyes ; Flynn Lacy ; Pradeep Long Discharge Orders/Prescriptions Prescriptions: No Action timolol 0.5 % drops 1 drp EACH EYE DAILY RF: 0 brimonidine 0.2 % drops 1 drp LEFT EYE BID RF: 0 albuterol sulfate 90 mcg/actuation HFA aerosol inhaler 2 puff INHALATION Q4H PRN (Reason: Sob &/Or Wheezing) Qty: 8.5 RF: 11 latanoprost 1 DROP bottle 1 drp EACH EYE DAILY RF: 0 aspirin 81 mg tablet,delayed release (DR/EC) 81 mg PO DAILY RF: 0 Humalog U-100 Insulin 100 unit/mL Cartridge 150 unit SUBCUT .Q3DAY RF: 0 docusate calcium 240 mg capsule 240 mg PO BID RF: 0 Trelegy Ellipta 200-62.5-25 mcg blister with device 1 inh inhalation DAILY RF: 0 lorazepam [Ativan] 0.5 mg tablet 0.5 mg PO TID PRN (Reason: Anxiety) RF: 0 metoprolol succinate 25 mg tablet extended release 24 hr 12.5 mg PO DAILY Qty: 45 RF: 3 isosorbide mononitrate 30 mg tablet extended release 24 hr 30 mg PO DAILY Qty: 90 RF: 3 atorvastatin 80 mg tablet 80 mg PO QHS Qty: 90 RF: 3 clopidogrel [Plavix] 75 mg tablet 75 mg PO DAILY Qty: 90 RF: 3 Disposition Disposition (needs filled in before D/C Order can be placed): Hospice in Home Charges/Coding Addendum Addendum: Patient seen by Torie LANGLEY under my supervision Patient is a 77 y/o male with an extensive PMH as outlined who was admitted via the ED with a complaint of shortness of breath. Shortness of breath had started in the morning of admission, and persisted whilst he was at dialysis. He had fluid removed during dialysis but he was still not at his baseline so he was brought in to the hospital. CXR showed small chronic stable left pleural effusion. EKG showed no acute ST changes. Initial blood pressure was running low at 93/49 but improved to 108/61. He was admitted and managed for acute shortness of breath which was thought to be due to acute on chronic heart failure preserved ejection fraction with fluid overload. He had thoracentesis with 600 cc of fluid removed which showed a transudate pa tent. Patient had been scheduled for left BKA due to gangrenous toes of the left foot and this was done during this admission. Pulmonology was consulted for medical optimization prior to him going for surgery. Hospital course was further complicated by patient developing gangrene of the right big toe. Family was not amenable to vascular surgery evaluation and refused vascular surgery consult. Hospital course was complicated by acute metabolic encephalopathy with patient getting progressively weaker as well as more confused. He was also found to have a right upper lobe lung mass. Patient continued to deteriorate and was not improving. Medical team had a meeting with patient's family who finally agreed to hospice. Hospice was consulted to evaluate patient and family was agreeable to hospice care. Patient was discharged home with hospice on 02/17/2022. Patient was seen and examined prior to discharge. He was quite frail and remained confused. Daughter was by his bedside. Unable to do review of systems o/a of confusion. Const alert Constitutional Narrative: alert, Restless, confused Orientation / Consciousness: awake HEENT normocephalic Mouth: dry mucous membranes Eyes PERRL, EOMs intact bilaterally and conjunctivae normal Neck no lymphadenopathy Resp mildly diminished breath sounds bibasally, no wheezes or crackles. On 2L by nasal canula Cardio Cardio Narrative: A. fib, rate controlled Peripheral Pulses: pulses 2+ throughout GI normal to inspection, nondistended, normoactive bowel sounds, non-tender and non-distended Extremity normal to inspection Skin no rashes or lesions noted Skin Narrative: Left BKA, dressing intact. Right great toe ischemic. Lesions: no lesions Rashes: no rashes Trauma: no lacerations or abrasions Neuro CN's II-XII intact bilaterally, no focal motor deficits, no sensory deficits noted and deep tendon reflexes 2+ bilaterally Psych Activity / Motor Behavior: restless, confused Plan is for discharge home with hospice. Rest as per Torie Hastings SHIPPING RECEIVING CLERK-C's note, which I have reviewed and endorsed. Total time I spent on discharge of patient: 35 mins, with Torie Hastings spending 25 mins making a total of 60 mins Visit Charges Inpatient E&M: 88184 Disch Hosp
--- NOTE | 2022-02-17 15:30 | CASEMGMT ---
Social Work Per LEDA Vogt. Pt's family has agreed to hospice services and would like to discharge to his home tonight with hospice services. Phone call to [facility] and spoke to Dwayne. Updated that pt would like to d/c home tonight. Dwayne states he will notify Gloria and ask Gloria to call this worker to arrange for discharge. Will await return call from Gloria. AYALA Dia
--- NOTE | 2022-02-17 15:34 | CASEMGMT ---
Social Work SW notified Koki at [facility] that pt is returning home with hospice. Cancel referral. AYALA Dia
[2022-02-17] MEDS: Haloperidol Lactate 5 MG/ML Vial 2 MG IV (15:50)
--- NOTE | 2022-02-17 16:23 | CASEMGMT ---
Social Work SW spoke with Gloria at [facility] and they are able to meet pt at home whenever he discharges. Transportation arranged with [facility] for a 5:00 pickling drum operator via [facility] to transport to pt home. Nursing made aware. Orders faxed to Hospice and notified of discharge time. AYALA Dia
--- NOTE | 2022-02-17 16:35 | DIALYSIS ---
Hemodialysis completed via left upper arm AV fistula with 1.5 liters fluid removed. Stasis obtained after needles removed. Pt anxious throughout most of treatment, however vitals remained stable.
== END 2022-02-17 17:35 | disposition hospice, home (50) | DRG 239 ==
LOC: ED 19:21 → PCU 19:29
PROVIDERS: Anesthesiology; Family Medicine; Hospitalist; Internal Medicine; Internal Medicine Critical Care Medicine; Nurse Practitioner Adult Health; Nurse Practitioner Family; Student in an Organized Health Care Education/Training Program; Admitting Provider Internal Medicine; Emergency Provider Emergency Medicine; PCP Family Medicine; Referring Provider Internal Medicine; Visit Provider Student in an Organized Health Care Education/Training Program
PROC: 0Y6J0Z2 Detachment at Left Lower Leg, Mid, Open Approach (ICD-10-PCS; principal; 2022-02-09 10:05)
DX: I13.2 Hypertensive heart and chronic kidney disease with heart failure and with stage 5 chronic kidney disease, or end stage renal disease (principal); G93.41 Metabolic encephalopathy; N18.6 End stage renal disease; I50.43 Acute on chronic combined systolic (congestive) and diastolic (congestive) heart failure; E11.52 Type 2 diabetes mellitus with diabetic peripheral angiopathy with gangrene; J96.11 Chronic respiratory failure with hypoxia; J90 Pleural effusion, not elsewhere classified; I47.1 Supraventricular tachycardia; K56.7 Ileus, unspecified; E87.1 Hypo-osmolality and hyponatremia; D63.8 Anemia in other chronic diseases classified elsewhere; L89.152 Pressure ulcer of sacral region, stage 2; J44.9 Chronic obstructive pulmonary disease, unspecified; E11.22 Type 2 diabetes mellitus with diabetic chronic kidney disease; I73.9 Peripheral vascular disease, unspecified; I48.0 Paroxysmal atrial fibrillation; Z99.2 Dependence on renal dialysis; Z79.4 Long term (current) use of insulin; J84.10 Pulmonary fibrosis, unspecified; G54.0 Brachial plexus disorders; D64.9 Anemia, unspecified; E78.5 Hyperlipidemia, unspecified; I25.10 Atherosclerotic heart disease of native coronary artery without angina pectoris; I25.2 Old myocardial infarction; I25.5 Ischemic cardiomyopathy; N40.0 Benign prostatic hyperplasia without lower urinary tract symptoms; I35.0 Nonrheumatic aortic (valve) stenosis; K59.00 Constipation, unspecified; L89.611 Pressure ulcer of right heel, stage 1; K59.81 Ogilvie syndrome; R13.10 Dysphagia, unspecified; Z85.46 Personal history of malignant neoplasm of prostate; Z79.52 Long term (current) use of systemic steroids; F32.A Depression, unspecified; Z87.19 Personal history of other diseases of the digestive system; Z87.891 Personal history of nicotine dependence; Z96.41 Presence of insulin pump (external) (internal); Z99.81 Dependence on supplemental oxygen; Z79.82 Long term (current) use of aspirin; Z79.899 Other long term (current) drug therapy; Z95.1 Presence of aortocoronary bypass graft; H40.9 Unspecified glaucoma; Z66 Do not resuscitate; R91.8 Other nonspecific abnormal finding of lung field; R79.89 Other specified abnormal findings of blood chemistry; U09.9 Post COVID-19 condition, unspecified; Z79.02 Long term (current) use of antithrombotics/antiplatelets; Z51.5 Encounter for palliative care
CPT/HCPCS: 32555; 36415; 36600; 70450; 71045; 71046; 71275; 74018; 74176; 74230; 80048; 80053; 80061; 80069; 82140; 82274; 82803; 82945; 82962; 83036; 83540; 83550; 83615; 83735; 83880; 83986; 84100; 84156; 84157; 84439; 84443; 84484; 85014; 85018; 85025; 85379; 85610; 86850; 86900; 86901; 87070; 87075; 87205; 87641; 88108; 88305; 88307; 88311; 88313; 88341; 88342; 89050; 90937; 92526; 92610; 92611; 93005; 93971; 94002; 94003; 94640; 94667; 94668; 94762; 97162; 97166; 97530; 97535; 99251; 99285; J7030; J7040; J7050; Q9967; A4216; G0257; G0463; J1940; J2916; Q5106